=== PATIENT | female | born 1970 | race Caucasian/White ===

== ENCOUNTER 2021-09-21 12:49 | Inpatient (IN) | payer MEDICAID, SELFPAY ==
--- NOTE | ~2021-09-21 | US_ITS ---
EXAMINATION: US VENOUS ULTRASOUND WITH DOPPLER LOWER EXTREMITY, LEFT CLINICAL INFORMATION: Left lower leg pain and swelling. COMPARISON: None TECHNIQUE: Ultrasound of the deep veins is performed from the hip to the calf with compression sonography and color and pulse Doppler assessment. Spectral analysis with color-flow imaging is performed. FINDINGS: There is normal venous compression and respiratory variation and augmented flow. The visualized common femoral vein, superficial femoral vein, profunda femoral vein, popliteal vein, and the trifurcation region shows no evidence of deep venous thrombosis. The peroneal and the posterior tibial veins are not visualized. There is complex popliteal fossa cyst measuring 4.1 x 1.6 x 2.0 cm. If the patient's symptoms persist, followup ultrasound in 5 days 7 days might be of value to exclude proximal propagation from a non-visualized calf vein. US/US venous duplex LE IMPRESSION: No DVT demonstrated in the left lower extremity.
--- NOTE | ~2021-09-21 | XR_ITS ---
EXAMINATION: XR HAND, RIGHT CLINICAL INFORMATION: Fall COMPARISON: None TECHNIQUE: PA, lateral, and oblique views of the right hand. FINDINGS: There are well-corticated soft tissue ossifications adjacent to the ulnar styloid likely related to old trauma. There is faint soft tissue linear calcification or ossification adjacent to the base of the fifth metacarpal bone/CUSTODIAL joint also questionable for changes related to old trauma and laterally over the dorsal wrist and distal forearm. No acute fracture or dislocation is seen. There are mild degenerative changes of the first CUSTODIAL joint. XR/XR hand RT min 3V IMPRESSION: Question old trauma to the ulnar styloid and soft tissues lateral to the fifth CUSTODIAL joint and dorsal wrist and distal forearm. No acute fracture or dislocation. Mild arthritis at the first CUSTODIAL joint.
--- NOTE | ~2021-09-21 | XR_ITS ---
EXAMINATION: XR FOOT, LEFT CLINICAL INFORMATION: Rule out osteomyelitis COMPARISON: None TECHNIQUE: 2 views of the left foot. FINDINGS: There is soft tissue loss and bone destruction of the distal great toe suggestive of osteomyelitis. The bones appear osteopenic. No fracture or dislocation is seen. There is mild hallux valgus deformity and degenerative change at the first MTP joint. There are small calcaneal spurs. XR/XR foot LT 2V IMPRESSION: Bone destruction and soft tissue loss of the distal great toe suggestive of osteomyelitis.
--- NOTE | ~2021-09-21 | CT_ITS ---
EXAMINATION: CT CERVICAL SPINE WITHOUT CONTRAST CLINICAL INFORMATION: Fall COMPARISON: None TECHNIQUE: Axial images through the cervical spine without contrast. Sagittal and coronal reconstructions on the technologist workstation were performed. This CT examination was performed using dose optimization techniques as appropriate, variously including the following: *Automated exposure control *Adjustment of mA and/or kV according to patient size (this includes techniques or standardized protocols for targeted exams where dose is matched to indication/reason for exam; i.e. extremities or head) *Use of iterative reconstruction technique DLP: 5 5 4 mGy-cm FINDINGS: There is mild curvature of the lower cervical and upper thoracic spine to the left. Bone alignment is otherwise normal. There is mild degenerative spondylosis and degenerative disc disease at C5-C5-C6 and C6-C7. Prevertebral soft tissues are unremarkable. There is shotty bilateral cervical lymphadenopathy. Visualized lung apices are clear. CT/CT cervical spine wo con IMPRESSION: Mild degenerative changes. No fracture or dislocation seen. Fleischner guidelines were followed.
--- NOTE | ~2021-09-21 | XR_ITS ---
EXAMINATION: XR KNEE, RIGHT CLINICAL INFORMATION: Fall COMPARISON: None TECHNIQUE: Four views of the right knee. FINDINGS: Bone alignment is normal. No acute fracture or dislocation is seen. There is a deformity and subchondral lucency in the medial femoral condyle questionable for old injury. There is arthritis at the medial femoral tibial and patellofemoral joints. There is a small osteophyte at the quadriceps tendon insertion to the patella. There is a moderate-sized joint effusion. XR/XR knee RT 4V IMPRESSION: Degenerative changes and joint effusion. Question old subchondral injury of the medial femoral condyle.
--- NOTE | ~2021-09-21 | XR_ITS ---
EXAMINATION: XR FOOT, RIGHT CLINICAL INFORMATION: Evaluate for osteomyelitis COMPARISON: Previous x-ray and MRI January 2020 TECHNIQUE: AP, lateral, and oblique views of the right foot. FINDINGS: There is fracture dislocation of the first MTP joint. There is bone destruction of the first metatarsal head and base of the proximal phalanx questionable for posttraumatic change versus osteomyelitis. There is loss of the phalanx and metatarsal head and distal shaft of the second toe also suggestive of osteomyelitis. There appears to have been amputation of the third toes. There is a displaced fracture of the distal shaft or neck of the fifth metatarsal bone. All these findings aren't new in the interval from January 2020 exam. There are calcaneal spurs. There is soft tissue swelling of the distal foot. There is a radiopaque soft tissue foreign body adjacent to the plantar fourth metatarsal head. XR/XR foot RT 2V IMPRESSION: Fracture dislocation of the first MTP joint with osteopenia and bone destruction questionable for septic arthritis/osteomyelitis. Destruction of the phalanx and metatarsal head and distal shaft of the second toe suggestive of osteomyelitis. Probable postsurgical amputation of the third toe. New soft tissue foreign body adjacent to the plantar fourth metatarsal head. New fracture of the distal shaft or neck of the fifth metatarsal bone.
--- NOTE | ~2021-09-21 | CT_ITS ---
EXAMINATION: CT HEAD WITHOUT CONTRAST CLINICAL INFORMATION: Fall COMPARISON: None TECHNIQUE: Contiguous axial imaging was performed from the skull base to vertex without intravenous administration of contrast. This CT examination was performed using dose optimization techniques as appropriate, variously including the following: *Automated exposure control *Adjustment of mA and/or kV according to patient size (this includes techniques or standardized protocols for targeted exams where dose is matched to indication/reason for exam; i.e. extremities or head) *Use of iterative reconstruction technique DLP: 960 mGy-cm FINDINGS: There is no evidence of acute intracranial hemorrhage or territorial infarction. No abnormal mass effect or midline shift is seen. Garza to white matter differentiation is well preserved. No extra-axial fluid collections are identified. The ventricles are normal in size. There is no abnormal attenuation within the brain parenchyma. No skull fracture is seen. There is hyperostosis frontalis interna. There is a polyp or cyst in the right sphenoid sinus. There is membranous soft tissue thickening in the bilateral maxillary sinuses. CT/CT head/brain wo con IMPRESSION: No acute intracranial findings. Sinus disease.
[2021-09-21 12:58] VITALS: BP 183/133; BP 193/88; PULSE 76; PULSE 79; RESP 22; TEMP 37.2; O2SAT 100; BMI 26.2
--- NOTE | 2021-09-21 13:25 | ED.SKABFB ---
HPI - Skin/Abscess/Foreign Bdy General Chief complaint: Wound/Laceration Stated complaint: LEG INFECTION W/PAIN, H/O DM Time Seen by Provider: 09/21/21 13:08 Source: patient Mode of arrival: EMS Limitations: no limitations History of Present Illness MD complaint: rash, laceration, abscess/boil, lesion and other (falls) Onset (ago): month(s) (8 months of leg wounds but falling x 1 week difficult to walk R knee keeps going out) Location: LLE and RLE Severity: moderate Quality: aching and constant Pain Consistency: constant Relieving factors: none Exacerbating factors: palpation and movement Context: other (hx of DM ulcers with toe amputations in past) Associated symptoms: malaise and other (diff walking, draining wounds, cannot get to bathroom on her, falling) Treatments prior to arrival: bandages (states her kids try to help) Related Data Home Medications Medication Instructions Recorded Confirmed alprazolam 2 mg tablet 1 mg PO DAILY PRN 09/21/21 09/21/21 alprazolam 2 mg tablet 2 mg PO BID 09/21/21 09/21/21 gabapentin 400 mg capsule 400 mg PO QID 09/21/21 09/21/21 ibuprofen 800 mg tablet 1 tab PO TID 09/21/21 09/21/21 insulin glargine 100 unit/mL (3 35 unit SUBCUT BEDTIME 09/21/21 09/21/21 mL) subcutaneous pen (Lantus Solostar U-100 Insulin) sertraline 100 mg tablet 1 tab PO BID 09/21/21 09/21/21 Allergies Allergy/AdvReac Type Severity Reaction Status Date / Time prednisone [PREDNISONE] Allergy Unknown RASH Unverified 09/01/20 10:06 Review of Systems Review of Systems: Constitutional : No Fever, No Chills ENT/Mouth : No sore throat, No Rhinorrhea Eyes: No Eye Pain, No Swelling, No Redness Cardiovascular : No Chest Pain, No SOB Respiratory : No Cough, No Sputum Gastrointestinal : No Nausea, No Vomiting, No Diarrhea, No abdominal Pain Genitourinary : No Dysuria, No Hematuria Musculoskeletal : pos joint pain, No Myalgias, Joint Swelling Skin : pos Skin Lesions, positive skin rash Neuro : pos Weakness, No Numbness, No Headache, pos falls Psych : No Anxiety, No Depression Heme/Lymph: No Bruising, No Bleeding,No Lymphadenopathy Endocrine : No Polyuria, No Polydipsia All other systems reviewed and are negative [facility] Past Medical History Attestation statement: The following information was validated with the patient. Medical History Anxiety Diabetes No known health problems Substance abuse Social History Social History (Updated 09/21/21 @ 15:55 by Yesenia Galvan DO) Alcohol intake: never Patient Tobacco Use Status: Current everyday Tobacco user Smoked in Last 30 Days: No Use of substances other than those prescribed or required for medical reasons: Yes Substance Use Type: Heroin Substance Use Frequency: Occasionally Last Used Substance: Days (ago) Any prior treatment program specific to substance use: No Advance Directives: No Advance Directives Information Provided: No Patient : No Physical Exam Vital Signs: Vital Signs: Last Vital Signs Temp 98.3 F 09/21/21 15:42 Pulse 82 09/21/21 15:42 Resp 20 09/21/21 15:42 BP 181/78 H 09/21/21 15:42 Pulse Ox 98 09/21/21 15:42 BMI result Body Mass Index 26.2 Appearance: Alert. Oriented X3. No acute distress. Anxious, unkempt Eyes: Pupils equal, round and reactive to light. ENT: Pharynx normal. Neck: Normal inspection. Neck supple. CVS: Normal heart rate and rhythm. Pulses normal. Respiratory: No respiratory distress. Breath sounds normal. Abdomen: Soft and non-tender. : abrasions both inner thighs no crepitus no abscess - skin breakdown Skin: Skin warm and dry. Normal skin color. Normal skin turgor. Extremities: pitting LE, macerated deep open wound on plantar surface R foot with odor and drainage with cellulitis up to garcia, L leg with open wounds on toes and open draining wound left lateral leg with surrounding erythema of the garcia. R hand swollen with ecchymosis noted - states from fall Neuro: Oriented X 3. No motor deficit. No sensory deficit. MDM - Skin/Abscess/Foreign Bdy MDM Narrative Medical decision making narrative: 51 yo female with DM hx of LE ulcers and toe amputations in the past reports worsening ulcers and draining wounds for 8 months has not seen anyone now notes they are much worse and she has not been able to walk - the wounds are infected and she has leg cellulitis now. She has also been falling due to R knee giving out and did hit her head. At this time she will need labs, cultures, CT of the head, xrays of R knee for fracture, foot x 2 for osteo, R hand for fracture, recent relapse on intranasal heroin. DVT study of LLE. Empiric zosyn and vancomycin. IVF, IV ativan for anxiety, planned admit. Differential Diagnosis Differential diagnosis: Likely abscess of skin or subcutaneous tissue Lab Data Result diagrams: 09/21/21 14:37 09/21/21 14:36 Labs: Lab Results 09/21/21 09/21/21 09/21/21 Range/Units 14:36 14:36 14:36 WBC (4.8-10.8) X10*3/uL RBC (4.20-5.50) X10*6/uL Hgb (12.0-16.0) g/dl Hct (37.0-47.0) % MCV (80.0-98.0) fL MCH (27.0-33.0) pg MCHC (31.0-35.0) g/dl RDW (11.0-16.0) % Plt Count (160-400) X10*3/uL MPV (9.4-12.3) fL Immature Gran % (Auto) (0.0-0.4) % Neut % (Auto) (45-73) % Lymph % (Auto) (20-40) % [place] % (Auto) (2-11) % Eos % (Auto) (0-4) % Baso % (Auto) (0-2) % Lymph # (Auto) (1.2-4.9) X10*3/uL [place] # (Auto) (0.1-1.2) X10*3/uL Eos # (Auto) (0.0-0.4) X10*3/uL Baso # (Auto) (0.0-0.2) X10*3/uL Abs Immat Gran (auto) (0.00-0.03) X10*3/uL Absolute Neuts (auto) (2.0-8.3) x10*3/uL Absolute Nucleated RBC (0.0-0.012) X10*3/uL Nucleated RBC % (auto) (0.0-0.2) /100WBC ESR 86 H (0-20) MM/HR PT 13.9 H (9.9-13.0) SEC INR 1.2 H (0.9-1.1) Sodium 137 (135-145) mmol/L Potassium 3.3 (3.3-5.1) mmol/L Chloride 102 (96-108) mmol/L Carbon Dioxide 27 (22-29) mmol/L Anion Gap 11 L (12-20) BUN 10 (9-16) mg/dL Creatinine 0.56 (0.5-1.4) mg/dL Estim Creat Clear Calc 126.1 Estimated GFR > 60 Random Glucose 156 H (60-115) mg/dL Lactic Acid (0.5-2.0) mmol/L Calcium 7.7 L (8.4-10.2) mg/dL Magnesium 1.6 (1.6-2.6) mg/dL Total Bilirubin 0.3 (0.0-1.0) mg/dL Direct Bilirubin < 0.2 (0.0-0.5) mg/dL AST 10 (5-31) U/L ALT 6 (0-31) U/L Alkaline Phosphatase 98 (39-117) U/L C-Reactive Protein 10.74 H (< or = 0.50) mg/dL Total Protein 6.0 L (6.5-8.0) g/dL Albumin 2.5 L (3.5-5.0) g/dL Urine Color Urine Appearance Urine pH (5.0-8.0) Ur Specific [place] (1.005-1.025) Urine Protein (NEG-TRACE) MG/DL Urine Glucose (UA) (NEG) MG/DL Urine Ketones (NEG) MG/DL Urine Blood (NEG) Urine Nitrite (NEG) Ur Leukocyte Esterase (NEG) Urine RBC (0) /HPF Urine WBC (0-4) /HPF Ur Squamous Epith Cells /LPF Urine Bacteria /LPF COVID-19 (EUSEBIO) (Negative) COVID-19 Clin Com 09/21/21 09/21/21 09/21/21 Range/Units 14:36 14:36 14:37 WBC 18.1 H (4.8-10.8) X10*3/uL RBC 3.43 L (4.20-5.50) X10*6/uL Hgb 9.3 L (12.0-16.0) g/dl Hct 28.4 L (37.0-47.0) % MCV 82.8 (80.0-98.0) fL MCH 27.1 (27.0-33.0) pg MCHC 32.7 (31.0-35.0) g/dl RDW 15.0 (11.0-16.0) % Plt Count 511 H (160-400) X10*3/uL MPV 9.1 L (9.4-12.3) fL Immature Gran % (Auto) 1.0 H (0.0-0.4) % Neut % (Auto) 82.7 H (45-73) % Lymph % (Auto) 11.1 L (20-40) % [place] % (Auto) 4.9 (2-11) % Eos % (Auto) 0.1 (0-4) % Baso % (Auto) 0.2 (0-2) % Lymph # (Auto) 2.0 (1.2-4.9) X10*3/uL [place] # (Auto) 0.9 (0.1-1.2) X10*3/uL Eos # (Auto) 0.0 (0.0-0.4) X10*3/uL Baso # (Auto) 0.0 (0.0-0.2) X10*3/uL Abs Immat Gran (auto) 0.18 H (0.00-0.03) X10*3/uL Absolute Neuts (auto) 15.0 H (2.0-8.3) x10*3/uL Absolute Nucleated RBC 0.000 (0.0-0.012) X10*3/uL Nucleated RBC % (auto) 0.0 (0.0-0.2) /100WBC ESR (0-20) MM/HR PT (9.9-13.0) SEC INR (0.9-1.1) Sodium (135-145) mmol/L Potassium (3.3-5.1) mmol/L Chloride (96-108) mmol/L Carbon Dioxide (22-29) mmol/L Anion Gap (12-20) BUN (9-16) mg/dL Creatinine (0.5-1.4) mg/dL Estim Creat Clear Calc Estimated GFR Random Glucose (60-115) mg/dL Lactic Acid 0.8 (0.5-2.0) mmol/L Calcium (8.4-10.2) mg/dL Magnesium (1.6-2.6) mg/dL Total Bilirubin (0.0-1.0) mg/dL Direct Bilirubin (0.0-0.5) mg/dL AST (5-31) U/L ALT (0-31) U/L Alkaline Phosphatase (39-117) U/L C-Reactive Protein (< or = 0.50) mg/dL Total Protein (6.5-8.0) g/dL Albumin (3.5-5.0) g/dL Urine Color Urine Appearance Urine pH (5.0-8.0) Ur Specific [place] (1.005-1.025) Urine Protein (NEG-TRACE) MG/DL Urine Glucose (UA) (NEG) MG/DL Urine Ketones (NEG) MG/DL Urine Blood (NEG) Urine Nitrite (NEG) Ur Leukocyte Esterase (NEG) Urine RBC (0) /HPF Urine WBC (0-4) /HPF Ur Squamous Epith Cells /LPF Urine Bacteria /LPF COVID-19 (EUSEBIO) Negative (Negative) COVID-19 Clin Com See Note 09/21/21 Range/Units 14:54 WBC (4.8-10.8) X10*3/uL RBC (4.20-5.50) X10*6/uL Hgb (12.0-16.0) g/dl Hct (37.0-47.0) % MCV (80.0-98.0) fL MCH (27.0-33.0) pg MCHC (31.0-35.0) g/dl RDW (11.0-16.0) % Plt Count (160-400) X10*3/uL MPV (9.4-12.3) fL Immature Gran % (Auto) (0.0-0.4) % Neut % (Auto) (45-73) % Lymph % (Auto) (20-40) % [place] % (Auto) (2-11) % Eos % (Auto) (0-4) % Baso % (Auto) (0-2) % Lymph # (Auto) (1.2-4.9) X10*3/uL [place] # (Auto) (0.1-1.2) X10*3/uL Eos # (Auto) (0.0-0.4) X10*3/uL Baso # (Auto) (0.0-0.2) X10*3/uL Abs Immat Gran (auto) (0.00-0.03) X10*3/uL Absolute Neuts (auto) (2.0-8.3) x10*3/uL Absolute Nucleated RBC (0.0-0.012) X10*3/uL Nucleated RBC % (auto) (0.0-0.2) /100WBC ESR (0-20) MM/HR PT (9.9-13.0) SEC INR (0.9-1.1) Sodium (135-145) mmol/L Potassium (3.3-5.1) mmol/L Chloride (96-108) mmol/L Carbon Dioxide (22-29) mmol/L Anion Gap (12-20) BUN (9-16) mg/dL Creatinine (0.5-1.4) mg/dL Estim Creat Clear Calc Estimated GFR Random Glucose (60-115) mg/dL Lactic Acid (0.5-2.0) mmol/L Calcium (8.4-10.2) mg/dL Magnesium (1.6-2.6) mg/dL Total Bilirubin (0.0-1.0) mg/dL Direct Bilirubin (0.0-0.5) mg/dL AST (5-31) U/L ALT (0-31) U/L Alkaline Phosphatase (39-117) U/L C-Reactive Protein (< or = 0.50) mg/dL Total Protein (6.5-8.0) g/dL Albumin (3.5-5.0) g/dL Urine Color YELLOW Urine Appearance CLEAR Urine pH 6.0 (5.0-8.0) Ur Specific [place] 1.025 (1.005-1.025) Urine Protein TRACE (NEG-TRACE) MG/DL Urine Glucose (UA) NEG (NEG) MG/DL Urine Ketones 5 (NEG) MG/DL Urine Blood TRACE (NEG) Urine Nitrite NEG (NEG) Ur Leukocyte Esterase NEG (NEG) Urine RBC 1-4 (0) /HPF Urine WBC 0-2 (0-4) /HPF Ur Squamous Epith Cells 1+ /LPF Urine Bacteria NONE /LPF COVID-19 (EUSEBIO) (Negative) COVID-19 Clin Com Procedures EJ/Peripheral Line Neck L: Time Out Performed: Yes Skin Cleansed in Sterile Fashion: Yes Size (gauge): 20 IV Secured and Dressing Applied: Yes Patient Tolerated Procedure: well and no complications Discharge Plan Discharge Clinical Impression: Open wound of foot, Cellulitis, Leukocytosis, Osteomyelitis Patient Disposition: Admitted As Inpatient Prescriptions: No Action ibuprofen 800 mg tablet 1 tab PO TID 0RF gabapentin 400 mg capsule 400 mg PO QID 0RF sertraline 100 mg tablet 1 tab PO BID 0RF alprazolam 2 mg tablet 2 mg PO BID 0RF alprazolam 2 mg tablet 1 mg PO DAILY PRN (Reason: Anxiety) 0RF Lanroly Barkleyar U-100 Insulin 100 unit/mL (3 mL) insulin pen 35 unit subcut BEDTIME 0RF
[2021-09-21 14:41] LABS: MANUAL DIFF FLAG NO
[2021-09-21 14:43] LABS: Basophils Percent Auto 0.2 % (0-2); Eosinophils Percent Auto 0.1 % (0-4); Hematocrit 28.4 % (37.0-47.0); Hemoglobin 9.3 g/dl (12.0-16.0); Imm Gran Abs Auto 0.18 X10*3/uL (0.00-0.03); Lymphocytes Percent Auto 11.1 % (20-40); Mean Corpuscular HGB Conc 32.7 g/dl (31.0-35.0); Mean Corpuscular Hemoglobin 27.1 pg (27.0-33.0); Mean Corpuscular Volume 82.8 fL (80.0-98.0); Mean Platelet Volume 9.1 fL (9.4-12.3); Monocytes Absolute Auto 0.9 X10*3/uL (0.1-1.2); Monocytes Percent Auto 4.9 % (2-11); Neutrophils Percent Auto 82.7 % (45-73); Platelet Count 511 X10*3/uL (160-400); Red Blood Count 3.43 X10*6/uL (4.20-5.50); White Blood Count 18.1 X10*3/uL (4.8-10.8)
[2021-09-21 14:49] LABS: INTERNATIONAL NORM RATIO 1.2 (0.9-1.1); Prothrombin Time 13.9 SEC (9.9-13.0)
[2021-09-21] MEDS: LORazepam 2 MG/ML VIAL 1 MG IVPUSH ×2 (14:49→17:21)
[2021-09-21] MEDS: 0.9 % Sodium Chloride 1,000 ML 999 ML IV (14:51)
[2021-09-21 15:00] LABS: Lactic Acid 0.8 mmol/L (0.5-2.0)
[2021-09-21 15:02] LABS: Appearance Urine CLEAR; Color Urine YELLOW; Glucose Urine UA NEG (NEG); Leukocyte Esterase Urine NEG (NEG); Nitrite Urine NEG (NEG); Specific Gravity - Urine 1.025 (1.005-1.025); UACC Culture Trigger NO; Urine Blood TRACE (NEG); Urine Ketones 5 MG/DL (NEG); Urine Protein TRACE MG/DL (NEG-TRACE)
[2021-09-21 15:06] LABS: COVID-19 Test Negative (Negative); IDNOW Serial# 55D5AD1C
[2021-09-21 15:10] LABS: Alanine Aminotransferase 6 U/L (0-31); Albumin Level 2.5 g/dL (3.5-5.0); Alkaline Phosphatase 98 U/L (39-117); Anion Gap 11 (12-20); Aspartate Amino Transferase 10 U/L (5-31); Bilirubin Direct < 0.2 mg/dL (0.0-0.5); Bilirubin Total 0.3 mg/dL (0.0-1.0); Blood Urea Nitrogen 10 mg/dL (9-16); C Reactive Protein 10.74 mg/dL (< or = 0.50); Calcium 7.7 mg/dL (8.4-10.2); Carbon Dioxide 27 mmol/L (22-29); Chloride 102 mmol/L (96-108); Creatinine Clr Calc Pharmacy 126.1; Estimated Glomerular Filt Rate > 60; Glucose Random 156 mg/dL (60-115); Magnesium 1.6 mg/dL (1.6-2.6); Potassium 3.3 mmol/L (3.3-5.1); Sodium 137 mmol/L (135-145)
[2021-09-21 15:20] LABS: Erythrocyte Sedimentation Rate 86 MM/HR (0-20)
[2021-09-21 15:31] LABS: Squamous Epithelial Cell Urine 1+ /LPF; WBC Urine 0-2 /HPF (0-4)
[2021-09-21 15:42] VITALS: BP 181/78; PULSE 82; RESP 20; TEMP 36.8; O2SAT 98
[2021-09-21] MEDS: Morphine Sulfate 4 MG/ML CARTRIDGE IVPUSH (15:50)
[2021-09-21] MEDS: Piperacillin Sodium/Tazobactam 3.375 GM in 0.9 % Sodium Chloride 50 ML IV (15:50)
--- NOTE | 2021-09-21 15:58 | PC.NURSE ---
pt brought in for wounds/falls, requiring extensive sticks for iv access/blood labs. pt has l side ej patent. blood labs eventually obtained and sent, medicated per emar, mccray catheter placed d/t extensive inner thigh/labial folds wounds. bl feet w multiple wounds in various stages of healing. pt has had difficulty maintaining diabetes med compliance and has also been intermittently relapsing with heroin to treat pain. pt has also had multiple falls over the past week, compounding the damage of bl foot wounds. pt more comfortable following pain meds. wctm for needs.
[2021-09-21] MEDS: vancomycin HCL 1,000 MG in 0.9 % Sodium Chloride 250 ML 270 MG IV (16:27)
--- NOTE | 2021-09-21 16:40 | P.HPHOSP_ITS ---
History of Present Illness Date of Service: 09/21/21 Chief Complaint: foot pain and falls 51 year old women presenting with pain and falls to lower extremities. She reported that around 2 weeks ago she started having falls and she would be on the floor for an extended period of time. She reported that she hasnt seen her PCP in person in some time but she is able to reach them over the phone, same as her psychiatrist. She does live with her son and a handicap roomate but doesnt have help at home. She uses a few bags of heroine a week and snorts it. She denied fever, chills, nausea, vomiting, chest pain, sob, LOC. She is noted to be septic from osteomyelitis to both feet. Vancomycin, Zosyn, Morphine, IV fluids and ativan. She will be admitted for further management and treatment of osteomyelitis. Review of Systems Review of Systems: Denies any recent fever chills or decrease in appetite respiratory denies any shortness of breath coverage production cardiovascular is adjustment of any PND or edema gastrointestinal denies any dysphagia abdominal pain nausea vomiting or diarrhea genitourinary denies any dysuria frequency or hematuria musculoskeletal denies any joint pain or swelling neuropsych denies any weakness or seizures all other systems reviewed are negative [facility] Medical History Anxiety Diabetes No known health problems Substance abuse Social History (Updated 09/21/21 @ 15:55 by Yesenia Galvan DO) Alcohol intake: never Patient Tobacco Use Status: Current everyday Tobacco user Smoked in Last 30 Days: No Use of substances other than those prescribed or required for medical reasons: Yes Substance Use Type: Heroin Substance Use Frequency: Occasionally Last Used Substance: Days (ago) Any prior treatment program specific to substance use: No Advance Directives: No Advance Directives Information Provided: No Patient : No Meds Allergies Allergy/AdvReac Type Severity Reaction Status Date / Time prednisone [PREDNISONE] Allergy Unknown RASH Unverified 09/01/20 10:06 Active Medications: Current Medications Pharmacy Consult (Consult Rx Perform Med Rec) 1 each MISCELLANE ONCE PRN PRN Reason: Consult order Home Medications Medication Instructions Recorded Confirmed Last Taken Type alprazolam 2 mg tablet 1 mg PO DAILY PRN 09/21/21 09/21/21 Unknown History alprazolam 2 mg tablet 2 mg PO BID 09/21/21 09/21/21 Unknown History gabapentin 400 mg capsule 400 mg PO QID 09/21/21 09/21/21 Unknown History ibuprofen 800 mg tablet 1 tab PO TID 09/21/21 09/21/21 Unknown History insulin glargine 100 unit/mL (3 35 unit SUBCUT BEDTIME 09/21/21 09/21/21 Unknown History mL) subcutaneous pen (Lantus Solostar U-100 Insulin) sertraline 100 mg tablet 1 tab PO BID 09/21/21 09/21/21 Unknown History Physical Exam Vital Signs and Narrative: Vital Signs: Last Vital Signs Temp 98.3 F 09/21/21 15:42 Pulse 82 09/21/21 15:42 Resp 20 09/21/21 15:42 BP 181/78 H 09/21/21 15:42 Pulse Ox 98 09/21/21 15:42 BMI result Body Mass Index 26.2 Appearing in no acute distress head is normocephalic atraumatic eyes pupils are PERRLA sclera is anicteric mouth throat mucous membranes are intact and moist neck is supple no lymphadenopathy, no JVD noted lung sounds are clear to auscultation heart regular rate rhythm, clear S1, S2 positive bowel sounds, abdomen is soft, nontender neuro patient is alert x3, no focal deficits Results Labs CBC and Chem 7: 09/21/21 14:37 09/21/21 14:36 Labs: Laboratory Results - last 24 hr 09/21/21 09/21/21 09/21/21 14:36 14:36 14:36 MCV MCH MCHC RDW Plt Count MPV Immature Gran % (Auto) Neut % (Auto) Lymph % (Auto) [place] % (Auto) Eos % (Auto) Baso % (Auto) Lymph # (Auto) [place] # (Auto) Eos # (Auto) Baso # (Auto) Abs Immat Gran (auto) Absolute Neuts (auto) Absolute Nucleated RBC Nucleated RBC % (auto) ESR 86 H PT 13.9 H INR 1.2 H Anion Gap 11 L Estim Creat Clear Calc 126.1 Estimated GFR > 60 Random Glucose 156 H Lactic Acid Calcium 7.7 L Magnesium 1.6 Total Bilirubin 0.3 Direct Bilirubin < 0.2 AST 10 ALT 6 Alkaline Phosphatase 98 C-Reactive Protein 10.74 H Total Protein 6.0 L Albumin 2.5 L Urine Color Urine Appearance Urine pH Ur Specific [place] Urine Protein Urine Glucose (UA) Urine Ketones Urine Blood Urine Nitrite Ur Leukocyte Esterase Urine RBC Urine WBC Ur Squamous Epith Cells Urine Bacteria COVID-19 (EUSEBIO) COVID-19 Clin Com 09/21/21 09/21/21 09/21/21 14:36 14:36 14:37 MCV 82.8 MCH 27.1 MCHC 32.7 RDW 15.0 Plt Count 511 H MPV 9.1 L Immature Gran % (Auto) 1.0 H Neut % (Auto) 82.7 H Lymph % (Auto) 11.1 L [place] % (Auto) 4.9 Eos % (Auto) 0.1 Baso % (Auto) 0.2 Lymph # (Auto) 2.0 [place] # (Auto) 0.9 Eos # (Auto) 0.0 Baso # (Auto) 0.0 Abs Immat Gran (auto) 0.18 H Absolute Neuts (auto) 15.0 H Absolute Nucleated RBC 0.000 Nucleated RBC % (auto) 0.0 ESR PT INR Anion Gap Estim Creat Clear Calc Estimated GFR Random Glucose Lactic Acid 0.8 Calcium Magnesium Total Bilirubin Direct Bilirubin AST ALT Alkaline Phosphatase C-Reactive Protein Total Protein Albumin Urine Color Urine Appearance Urine pH Ur Specific [place] Urine Protein Urine Glucose (UA) Urine Ketones Urine Blood Urine Nitrite Ur Leukocyte Esterase Urine RBC Urine WBC Ur Squamous Epith Cells Urine Bacteria COVID-19 (EUSEBIO) Negative COVID-19 Clin Com See Note 09/21/21 14:54 MCV MCH MCHC RDW Plt Count MPV Immature Gran % (Auto) Neut % (Auto) Lymph % (Auto) [place] % (Auto) Eos % (Auto) Baso % (Auto) Lymph # (Auto) [place] # (Auto) Eos # (Auto) Baso # (Auto) Abs Immat Gran (auto) Absolute Neuts (auto) Absolute Nucleated RBC Nucleated RBC % (auto) ESR PT INR Anion Gap Estim Creat Clear Calc Estimated GFR Random Glucose Lactic Acid Calcium Magnesium Total Bilirubin Direct Bilirubin AST ALT Alkaline Phosphatase C-Reactive Protein Total Protein Albumin Urine Color YELLOW Urine Appearance CLEAR Urine pH 6.0 Ur Specific [place] 1.025 Urine Protein TRACE Urine Glucose (UA) NEG Urine Ketones 5 Urine Blood TRACE Urine Nitrite NEG Ur Leukocyte Esterase NEG Urine RBC 1-4 Urine WBC 0-2 Ur Squamous Epith Cells 1+ Urine Bacteria NONE COVID-19 (EUSEBIO) COVID-19 Clin Com Imaging Radiologist's Impressions: Impressions Venous Duplex 09/21/21 13:48 IMPRESSION: No DVT demonstrated in the left lower extremity. Cervical Spine CT 09/21/21 15:17 IMPRESSION: Mild degenerative changes. No fracture or dislocation seen. Fleischner guidelines were followed. Head CT 09/21/21 15:17 IMPRESSION: No acute intracranial findings. Sinus disease. Foot X-Ray 09/21/21 15:22 IMPRESSION: Bone destruction and soft tissue loss of the distal great toe suggestive of osteomyelitis. Foot X-Ray 09/21/21 15:22 IMPRESSION: Fracture dislocation of the first MTP joint with osteopenia and bone destruction questionable for septic arthritis/osteomyelitis. Destruction of the phalanx and metatarsal head and distal shaft of the second toe suggestive of osteomyelitis. Probable postsurgical amputation of the third toe. New soft tissue foreign body adjacent to the plantar fourth metatarsal head. New fracture of the distal shaft or neck of the fifth metatarsal bone. Hand X-Ray 09/21/21 15:22 IMPRESSION: Question old trauma to the ulnar styloid and soft tissues lateral to the fifth SHELTER joint and dorsal wrist and distal forearm. No acute fracture or dislocation. Mild arthritis at the first SHELTER joint. Knee X-Ray 09/21/21 15:22 IMPRESSION: Degenerative changes and joint effusion. Question old subchondral injury of the medial femoral condyle. Assessment and Plan (1) Open wound of foot: Qualifiers: Encounter type: initial encounter Laterality: right Qualified Code(s): S91.301A - Unspecified open wound, right foot, initial encounter Status: Acute (2) Cellulitis: Qualifiers: Laterality: unspecified laterality Site of cellulitis: extremity Site of cellulitis of extremity: lower extremity Qualified Code(s): L03.119 - Cellulitis of unspecified part of limb Status: Acute (3) Osteomyelitis: Qualifiers: Osteomyelitis location: multiple sites Osteomyelitis type: other Qualified Code(s): M86.8X0 - Other osteomyelitis, multiple sites Status: Acute Plan 51 year old women admitted with osteomyelitis to both feet Sepsis secondary to Osteomyelitis Leukocytosis, tachypnea, normal lactic acid Vancomycin and Zosyn ID consult Pain management Follow blood cx Gen surg consult for foreign body adjacent to 4th metatarsal head, she may also need some debridement wound care consult Falls CPK 99 PT consult Substance abuse heroine addiction consult Diabetes sliding scale Lantus ADA diet Normocytic anemia with no acute blood loss follow CBC Anxiety continue home medications DVT prophylaxis with heparin Attending Dr. Chaudhari Full code Quality Stroke Does the patient have a stroke diagnosis?: No VTE Prior VTE?: No VTE Risk Level:: Medical - moderate - high VTE Device Contraindication: Treatment Not Indicated VTE Drug Contraindication: N/A - Med Ordered
[2021-09-21] MEDS: Heparin Sodium,Porcine 5,000 UNIT/ML VIAL 5000 UNIT SUBCUT (17:24)
[2021-09-21] MEDS: Gabapentin 400 MG CAPSULE PO ×2 (17:24→20:30)
--- NOTE | 2021-09-21 17:33 | PHA.PROG ---
Admission Date/Time: September 21, 2021 17:01 Indication: Sepsis secondary to osteomylitis Weight in k.75 kg Adjusted body weight in K.6 kg [place] body weight in K.6 kg Obesity Dosing Indication % IBW: 122 % Serum Creatinine - Last 168 Hours 09/21/21 14:36 Creatinine 0.56 Estimated CrCl and GFR - Last 168 Hours 09/21/21 14:36 Estim Creat Clear Calc 126.1 Estimated GFR > 60 Vancomycin Loading Dose: 1000 mg + 500 mg Current Vancomycin Dosing Regimen: 1250 mg Q12H Date and Time for next Vancomycin Level to be drawn: 09/23 @ 0600 Pharmacist Comments on Vancomycin Plan: Vancomycin 1000 mg given in ED 09/21 @ 1627. Will give an additional vancomycin 500 mg to create a loading dose of 1500 mg (19.8 mg/kg) Maintenance dose vancomycin 1250 mg to start 09/22 @ 0800. Time adjusted so that pharmacy will be able to review vancomycin trough to adjust dose if needed. Expected AUC 555 with a trough of 15.3 Trough to be drawn prior to 4th dose on 09/23 @ 0600 Pharmacy will monitor renal function daily Marlin Monterroso, Marleni Vancomycin dosing will take advantage of [id number] as a clinical decision support tool that uses Bayesian modeling to calculate individual patient's pharmacokinetic parameters and forecast the patient's drug concentration time course with the target goal AUC 24 range of 400 - 600 mg/L/hr.
[2021-09-21 20:08] VITALS: RESP 16
[2021-09-21] MEDS: Morphine Sulfate 2 MG/ML CARTRIDGE IVPUSH (20:08)
[2021-09-21] MEDS: Piperacillin Sodium/Tazobactam 4.5 GM in 0.9 % Sodium Chloride 100 ML IV (20:08)
[2021-09-21 20:15] VITALS: BP 181/65; PULSE 70; RESP 16; TEMP 36.2; O2SAT 98
[2021-09-21] MEDS: ALPRAZolam 0.5 MG TABLET 2 MG PO (20:29)
[2021-09-21] MEDS: Insulin Glargine,Hum.rec.anlog 100 UNIT/ML 10 ML VIAL 35 UNIT SUBCUT (20:31)
--- NOTE | 2021-09-21 20:53 | PC.NURSE ---
pt to room #10 in overflow in NAD. pt rating wound pain 04/16. pt medicated as per emar. will continue to monitor pt.
[2021-09-21] MEDS: Ibuprofen 800 MG TABLET PO (22:02)
[2021-09-22 00:18] VITALS: BP 167/74; PULSE 76; RESP 17; O2SAT 96
[2021-09-22] MEDS: 0.9 % Sodium Chloride Flush 3 ML SYRINGE IVFLUSH ×2 (00:18→19:51)
[2021-09-22] MEDS: Morphine Sulfate 2 MG/ML CARTRIDGE IVPUSH ×2 (00:23→09:46)
[2021-09-22] MEDS: Piperacillin Sodium/Tazobactam 4.5 GM in 0.9 % Sodium Chloride 100 ML IV ×4 (00:23→18:27)
[2021-09-22 02:35] LABS: Amphetamine Screen Urine Not Detected (Not Detect); Barbiturates, Urine Not Detected (Not Detect); Benzodiazepines Screen Urine Not Detected (Not Detect); Cannabinoid Screen Urine Not Detected (Not Detect); Cocaine Screen Urine Not Detected (Not Detect); Fentanyl, urine POSITIVE (Not Detect); Opiate Screen Urine POSITIVE (Not Detect); Phencyclidine Screen Urine Not Detected (Not Detect)
[2021-09-22] MEDS: Heparin Sodium,Porcine 5,000 UNIT/ML VIAL 5000 UNIT SUBCUT ×2 (05:59→17:58)
[2021-09-22 06:24] LABS: MANUAL DIFF FLAG NO
[2021-09-22 06:35] LABS: Basophils Percent Auto 0.1 % (0-2); Eosinophils Percent Auto 0.1 % (0-4); Hematocrit 29.7 % (37.0-47.0); Hemoglobin 9.8 g/dl (12.0-16.0); Imm Gran Abs Auto 0.18 X10*3/uL (0.00-0.03); Imm Gran Pct Auto 1.1 % (0.0-0.4); Lymphocytes Absolute Auto 1.6 X10*3/uL (1.2-4.9); Lymphocytes Percent Auto 10.1 % (20-40); Mean Corpuscular Hemoglobin 26.8 pg (27.0-33.0); Mean Corpuscular Volume 81.1 fL (80.0-98.0); Mean Platelet Volume 9.2 fL (9.4-12.3); Monocytes Absolute Auto 0.8 X10*3/uL (0.1-1.2); Monocytes Percent Auto 4.8 % (2-11); Neutrophils Absolute Auto 13.2 x10*3/uL (2.0-8.3); Neutrophils Percent Auto 83.8 % (45-73); Platelet Count 571 X10*3/uL (160-400); Red Blood Count 3.66 X10*6/uL (4.20-5.50); Red Cell Distribution Width 14.6 % (11.0-16.0); White Blood Count 15.7 X10*3/uL (4.8-10.8)
[2021-09-22 06:57] LABS: Anion Gap 14 (12-20); Blood Urea Nitrogen 7 mg/dL (9-16); Calcium 7.7 mg/dL (8.4-10.2); Carbon Dioxide 30 mmol/L (22-29); Chloride 97 mmol/L (96-108); Creatinine Clr Calc Pharmacy 138.6; Estimated Glomerular Filt Rate > 60; Glucose Random 67 mg/dL (60-115); Sodium 138 mmol/L (135-145)
[2021-09-22 07:26] LABS: Vancomycin Trough < 3.0 mcg/mL (10.0-20.0)
[2021-09-22] MEDS: Gabapentin 400 MG CAPSULE PO ×4 (08:10→19:49)
[2021-09-22] MEDS: ALPRAZolam 0.5 MG TABLET 2 MG PO ×2 (08:10→19:50)
[2021-09-22] MEDS: Ibuprofen 800 MG TABLET PO (08:11)
--- NOTE | 2021-09-22 08:11 | PC.NURSE ---
Pt received from night shift supervisor: Pt AOx4 and offers generalized pain complaint. Pt constantly asking for morphine. Heart sounds normal and lungs diminished. Pt abd soft and non-tender. Young catheter noted and draining. B/L LE excoriation and redness and warmth to touch noted, with glut fold yellow pus filled blisters. Pt had episode of BM incontinence this morning despite orientation.
[2021-09-22 08:27] VITALS: BP 186/71; PULSE 78; RESP 16; TEMP 36.6; O2SAT 97
--- NOTE | 2021-09-22 09:08 | PC.NURSE ---
Pt received from main ER: Pt AOX4 and offers mild generalized body pain. Pt hx of fibromyalgia, M/S. NSR and lungs with mild rhonchi and wet strong cough. Pt abd soft and non-tender. No neuro deficets noted. Pt able to ambulate. Physical therapy at bedside this morning.
--- NOTE | 2021-09-22 09:32 | PM.CNGS ---
History of Present Illness Consult details Consult date: 09/22/21 Narrative: 51-year-old female referred for osteomyelitis of the right foot with foreign body. She has a long history of IV drug abuse. She has had frequent falls and actually was admitted because of this last night. She had complained of right foot pain. She says that often times, she would be floor for long periods of time after falling. She has a history of amputation of the 3rd toe right foot in the past. She is also a known diabetic. She seems to have had poor follow-up with her primary care physician. Review of Systems Constitutional: Constitutional: Denies chills and Denies fever(s) Cardiovascular: Cardiovascular: Denies chest pain, Denies dyspnea and Denies dyspnea on exertion Respiratory: Respiratory: Denies cough, Denies dyspnea and Denies dyspnea on exertion Gastrointestinal: Gastrointestinal: Denies hematochezia and Denies change in bowel habits Genitourinary: Genitourinary: Denies hematuria Musculoskeletal: Musculoskeletal: Denies back pain and Denies limited range of motion Neurologic: Denies focal weakness and Denies convulsions Psychiatric: Psychiatric: Denies depression and Denies mood swings PMF Past Medical History Medical History Anxiety Diabetes No known health problems Substance abuse Social History Social History (Updated 09/22/21 @ 16:53 by Bev Salazar CNP) Household Members: Children Housing: Apartment Do you presently have visiting nurse or other home services: No Alcohol intake: never Patient Tobacco Use Status: Current everyday Tobacco user Tobacco use type: Cigarette Cigarette Packs Per Day: 1 Cigarettes Per Day: 20.0 Substance Use Type: Inhalants Substance Use Frequency: Occasionally Substance Use Frequency Other:: reporting use every few days Last Used Substance: Days (ago) Currently Displaying Signs/Symptoms of Drug Intoxication Withdrawal: No Any prior treatment program specific to substance use: Yes Meds Allergies Allergy/AdvReac Type Severity Reaction Status Date / Time prednisone [PREDNISONE] Allergy Unknown RASH Unverified 09/01/20 10:06 Active Medications: Current Medications Acetaminophen (Acetaminophen 325 Mg Tablet) 650 mg PO Q6H PRN PRN Reason: Pain, Mild (Pain Scale 1-3) Alprazolam (Alprazolam 0.5 Mg Tablet) 2 mg PO BID DADA Last Admin: 09/22/21 08:10 Dose: 2 mg Documented by: Gabapentin (Gabapentin 400 Mg Capsule) 400 mg PO QID [facility] Last Admin: 09/22/21 08:10 Dose: 400 mg Documented by: Heparin Sodium (Porcine) (Heparin Sodium,Porcine 5,000 Unit/Ml Vial) 5,000 unit SUBCUT Q12H [facility] Last Admin: 09/22/21 05:59 Dose: 5,000 unit Documented by: Vancomycin HCl 1,250 mg/ (Sodium Chloride) 250 mls @ 166.667 mls/hr IV Q12H [facility] Piperacillin Sod/Tazobactam (Sod 4.5 gm/ Sodium Chloride) 100 mls @ 200 mls/hr IV Q6H [facility] Last Infusion: 09/22/21 08:40 Dose: Infused Documented by: Ibuprofen (Ibuprofen 800 Mg Tablet) 800 mg PO TID [facility] Last Admin: 09/22/21 08:11 Dose: 800 mg Documented by: Insulin Glargine (Insulin Glargine,Hum.Rec.Anlog 100 Unit/Ml 10 Ml Vial) 35 unit SUBCUT BEDTIME [facility] Last Admin: 09/21/21 20:31 Dose: 35 unit Documented by: Morphine Sulfate (Morphine Sulfate 2 Mg/Ml Cartridge) 2 mg IVPUSH Q4H PRN; Protocol PRN Reason: Pain, Mild (Pain Scale 1-3) Last Admin: 09/22/21 00:23 Dose: 2 mg Documented by: Ondansetron HCl (Ondansetron Hcl 4 Mg/2 Ml Vial) 4 mg IVPUSH Q8H PRN PRN Reason: Nausea and Vomiting Pharmacy Consult (Consult Rx Perform Med Rec) 1 each MISCELLANE ONCE PRN PRN Reason: Consult order Pharmacy Consult (Consult Rx Vancomycin Dosing) 1 each MISCELLANE DAILY PRN PRN Reason: Consult order Sertraline HCl (Sertraline Hcl 100 Mg Tablet) 100 mg PO BID [facility] Last Admin: 09/22/21 08:11 Dose: Not Given Documented by: Sodium Chloride (0.9 % Sodium Chloride Flush 3 Ml Syringe) 3 ml IVFLUSH QSHIFT [facility] Last Admin: 09/22/21 07:19 Dose: Not Given Documented by: Home Medications Medication Instructions Recorded Confirmed Last Taken Type alprazolam 2 mg tablet 1 mg PO DAILY PRN 09/21/21 09/21/21 Unknown History alprazolam 2 mg tablet 2 mg PO BID 09/21/21 09/21/21 Unknown History gabapentin 400 mg capsule 400 mg PO QID 09/21/21 09/21/21 Unknown History ibuprofen 800 mg tablet 1 tab PO TID 09/21/21 09/21/21 Unknown History insulin glargine 100 unit/mL (3 35 unit SUBCUT BEDTIME 09/21/21 09/21/21 Unknown History mL) subcutaneous pen (Lantus Solostar U-100 Insulin) sertraline 100 mg tablet 1 tab PO BID 09/21/21 09/21/21 Unknown History Physical Exam Vital Signs: Vital Signs: Last Vital Signs Temp 97.8 F 09/22/21 08:27 Pulse 78 09/22/21 08:27 Resp 16 09/22/21 08:27 BP 186/71 H 09/22/21 08:27 Pulse Ox 97 09/22/21 08:27 BMI result Body Mass Index 26.2 Const: General: no acute distress Orientation/consciousness: patient oriented x3 Neck: Neck: Yes no lymphadenopathy Resp: Auscultation: clear to auscultation bilaterally Cardio: Rhythm: regular rhythm GI: Palpation (GI): Soft to palpation, nontender and no guarding Neuro: General: patient oriented x3 Extrem: Other: Right foot with large open wound with eschar about 3 cm in diameter on the plantar aspect, with some drainage; deformity of the toe and the 2nd toe as well noted Results Labs Result diagrams: 09/23/21 05:47 09/23/21 05:47 Labs: Abnormal lab results 09/21/21 09/21/21 09/21/21 Range/Units 14:36 14:36 14:36 WBC (4.8-10.8) X10*3/uL RBC (4.20-5.50) X10*6/uL Hgb (12.0-16.0) g/dl Hct (37.0-47.0) % MCH (27.0-33.0) pg Plt Count (160-400) X10*3/uL MPV (9.4-12.3) fL Immature Gran % (Auto) (0.0-0.4) % Neut % (Auto) (45-73) % Lymph % (Auto) (20-40) % Abs Immat Gran (auto) (0.00-0.03) X10*3/uL Absolute Neuts (auto) (2.0-8.3) x10*3/uL ESR 86 H (0-20) MM/HR PT 13.9 H (9.9-13.0) SEC INR 1.2 H (0.9-1.1) Potassium (3.3-5.1) mmol/L Carbon Dioxide (22-29) mmol/L Anion Gap 11 L (12-20) BUN (9-16) mg/dL Random Glucose 156 H (60-115) mg/dL Calcium 7.7 L (8.4-10.2) mg/dL C-Reactive Protein 10.74 H (< or = 0.50) mg/dL Total Protein 6.0 L (6.5-8.0) g/dL Albumin 2.5 L (3.5-5.0) g/dL Vancomycin Trough (10.0-20.0) mcg/mL Urine Opiates Screen (Not Detect) Urine Fentanyl Screen (Not Detect) 09/21/21 09/22/21 09/22/21 Range/Units 14:37 02:13 06:00 WBC 18.1 H (4.8-10.8) X10*3/uL RBC 3.43 L (4.20-5.50) X10*6/uL Hgb 9.3 L (12.0-16.0) g/dl Hct 28.4 L (37.0-47.0) % MCH (27.0-33.0) pg Plt Count 511 H (160-400) X10*3/uL MPV 9.1 L (9.4-12.3) fL Immature Gran % (Auto) 1.0 H (0.0-0.4) % Neut % (Auto) 82.7 H (45-73) % Lymph % (Auto) 11.1 L (20-40) % Abs Immat Gran (auto) 0.18 H (0.00-0.03) X10*3/uL Absolute Neuts (auto) 15.0 H (2.0-8.3) x10*3/uL ESR (0-20) MM/HR PT (9.9-13.0) SEC INR (0.9-1.1) Potassium (3.3-5.1) mmol/L Carbon Dioxide (22-29) mmol/L Anion Gap (12-20) BUN (9-16) mg/dL Random Glucose (60-115) mg/dL Calcium (8.4-10.2) mg/dL C-Reactive Protein (< or = 0.50) mg/dL Total Protein (6.5-8.0) g/dL Albumin (3.5-5.0) g/dL Vancomycin Trough < 3.0 L (10.0-20.0) mcg/mL Urine Opiates Screen POSITIVE H (Not Detect) Urine Fentanyl Screen POSITIVE H (Not Detect) 09/22/21 09/22/21 Range/Units 06:00 06:00 WBC 15.7 H (4.8-10.8) X10*3/uL RBC 3.66 L (4.20-5.50) X10*6/uL Hgb 9.8 L (12.0-16.0) g/dl Hct 29.7 L (37.0-47.0) % MCH 26.8 L (27.0-33.0) pg Plt Count 571 H (160-400) X10*3/uL MPV 9.2 L (9.4-12.3) fL Immature Gran % (Auto) 1.1 H (0.0-0.4) % Neut % (Auto) 83.8 H (45-73) % Lymph % (Auto) 10.1 L (20-40) % Abs Immat Gran (auto) 0.18 H (0.00-0.03) X10*3/uL Absolute Neuts (auto) 13.2 H (2.0-8.3) x10*3/uL ESR (0-20) MM/HR PT (9.9-13.0) SEC INR (0.9-1.1) Potassium 3.0 L (3.3-5.1) mmol/L Carbon Dioxide 30 H (22-29) mmol/L Anion Gap (12-20) BUN 7 L (9-16) mg/dL Random Glucose (60-115) mg/dL Calcium 7.7 L (8.4-10.2) mg/dL C-Reactive Protein (< or = 0.50) mg/dL Total Protein (6.5-8.0) g/dL Albumin (3.5-5.0) g/dL Vancomycin Trough (10.0-20.0) mcg/mL Urine Opiates Screen (Not Detect) Urine Fentanyl Screen (Not Detect) Short CBC 09/21/21 09/22/21 Range/Units 14:37 06:00 WBC 18.1 H 15.7 H (4.8-10.8) X10*3/uL Hgb 9.3 L 9.8 L (12.0-16.0) g/dl Hct 28.4 L 29.7 L (37.0-47.0) % Plt Count 511 H 571 H (160-400) X10*3/uL BMP 09/21/21 09/22/21 09/22/21 14:36 06:00 06:00 Sodium 137 138 Potassium 3.3 3.0 L Chloride 102 97 Carbon Dioxide 27 30 H BUN 10 7 L Creatinine 0.56 Cancelled 0.51 Calcium 7.7 L 7.7 L Cardiac Enzymes 09/21/21 Range/Units 14:36 Total Creatine Kinase 99 (26-140) U/L Liver Function 09/21/21 Range/Units 14:36 Total Bilirubin 0.3 (0.0-1.0) mg/dL Direct Bilirubin < 0.2 (0.0-0.5) mg/dL AST 10 (5-31) U/L ALT 6 (0-31) U/L Alkaline Phosphatase 98 (39-117) U/L Albumin 2.5 L (3.5-5.0) g/dL Urine 09/21/21 Range/Units 14:54 Urine Color YELLOW Urine Appearance CLEAR Urine pH 6.0 (5.0-8.0) Ur Specific [place] 1.025 (1.005-1.025) Urine Protein TRACE (NEG-TRACE) MG/DL Urine Glucose (UA) NEG (NEG) MG/DL All other labs normal. Assessment and Plan (1) Osteomyelitis: Qualifiers: Osteomyelitis location: multiple sites Osteomyelitis type: other Qualified Code(s): M86.8X0 - Other osteomyelitis, multiple sites Status: Acute Her x-ray shows osteomyelitis of the right big toe and the right 2nd toe up to the level of the metatarsal. Furthermore, there was what appeared to be a very small foreign body that seems to be metallic, maybe 4 mm in length, on the plantar aspect of the metatarsal head. Examination shows a thick eschar on the plantar aspect of the 1st and 2nd metatarsal head, with an open wound. The area of the eschars about 3.5 cm in diameter. I therefore sharply debrided this with scissors to remove in and part of subcutaneous layer. I could not clearly visualize the small foreign body but this may have come off with the eschar. I told her that in view of the osteomyelitis of the 1st and 2nd toes along with significant and extensive bony destruction, she will probably require transmetatarsal amputation or even a BKA. I explained to her that she may not heal completely with antibiotic treatment alone. She will require wound care for now and I have wrapped the foot with dry dressings and a Alexsandra roll. I will follow along while she is in the hospital. Procedures Date of Service Date of Service: 09/22/21
[2021-09-22] MEDS: vancomycin HCL 1,250 MG in 0.9 % Sodium Chloride 250 ML 166.67 MG IV ×2 (09:45→19:49)
--- NOTE | 2021-09-22 10:57 | HO.PM.IMPN ---
Subjective Subjective Date of Service: 09/22/21 Interval History: seen and examined this AM she reports foot pain, not controlled with current regime she tells me that gen surg told her that she will likely need an amp -- but she is not ready for this at this time; bedside debridement done by gen surg and dressing changes denies cp or sob Review of Systems negative except HPI Physical Exam Vital Signs: Vital Signs: Last Vital Signs Temp 97.8 F 09/22/21 08:27 Pulse 78 09/22/21 08:27 Resp 16 09/22/21 08:27 BP 186/71 H 09/22/21 08:27 Pulse Ox 97 09/22/21 08:27 BMI result Body Mass Index 26.2 General - ill appearing Cardiovascular - regular rate and rhythm, S1-S2 Lungs - no respiratory distress Abdomen - soft, nontender, no rebound or guarding skin -- RLE wound dressing in place, clean and dry Neuro - awake and alert, no focal deficits Objective Data Active Medications Acetaminophen (Acetaminophen 325 Mg Tablet) 650 mg PO Q6H PRN PRN Reason: Pain, Mild (Pain Scale 1-3) Alprazolam (Alprazolam 0.5 Mg Tablet) 2 mg PO BID [facility] Last Admin: 09/22/21 08:10 Dose: 2 mg Documented by: PAOLA Gabapentin (Gabapentin 400 Mg Capsule) 400 mg PO QID [facility] Last Admin: 09/22/21 08:10 Dose: 400 mg Documented by: PAOLA Heparin Sodium (Porcine) (Heparin Sodium,Porcine 5,000 Unit/Ml Vial) 5,000 unit SUBCUT Q12H [facility] Last Admin: 09/22/21 05:59 Dose: 5,000 unit Documented by: MARIA GUADALUPE Vancomycin HCl 1,250 mg/ (Sodium Chloride) 250 mls @ 166.667 mls/hr IV Q12H [facility] Last Admin: 09/22/21 09:45 Dose: 166.67 mls/hr Documented by: PAOLA Piperacillin Sod/Tazobactam (Sod 4.5 gm/ Sodium Chloride) 100 mls @ 200 mls/hr IV Q6H [facility] Last Infusion: 09/22/21 08:40 Dose: 0 mls/hr Documented by: PAOLA Ibuprofen (Ibuprofen 800 Mg Tablet) 800 mg PO TID [facility] Last Admin: 09/22/21 08:11 Dose: 800 mg Documented by: PAOLA Insulin Glargine (Insulin Glargine,Hum.Rec.Anlog 100 Unit/Ml 10 Ml Vial) 35 unit SUBCUT BEDTIME [facility] Last Admin: 09/21/21 20:31 Dose: 35 unit Documented by: DONG Morphine Sulfate (Morphine Sulfate 2 Mg/Ml Cartridge) 2 mg IVPUSH Q4H PRN; Protocol PRN Reason: Pain, Mild (Pain Scale 1-3) Last Admin: 09/22/21 09:46 Dose: 2 mg Documented by: PAOLA Ondansetron HCl (Ondansetron Hcl 4 Mg/2 Ml Vial) 4 mg IVPUSH Q8H PRN PRN Reason: Nausea and Vomiting Pharmacy Consult (Consult Rx Perform Med Rec) 1 each MISCELLANE ONCE PRN PRN Reason: Consult order Pharmacy Consult (Consult Rx Vancomycin Dosing) 1 each MISCELLANE DAILY PRN PRN Reason: Consult order Sertraline HCl (Sertraline Hcl 100 Mg Tablet) 100 mg PO BID [facility] Last Admin: 09/22/21 08:11 Dose: Not Given Documented by: PAOLA Non-Admin Reason: Patient Refused Sodium Chloride (0.9 % Sodium Chloride Flush 3 Ml Syringe) 3 ml IVFLUSH QSHIFT [facility] Last Admin: 09/22/21 07:19 Dose: Not Given Documented by: PAOLA Non-Admin Reason: Med Not Available Labs CBC & Chem 7: 09/22/21 06:00 09/22/21 06:00 Labs: Laboratory Results - last 24 hr 09/21/21 09/21/21 09/21/21 14:36 14:36 14:36 MCV MCH MCHC RDW Plt Count MPV Immature Gran % (Auto) Neut % (Auto) Lymph % (Auto) [place] % (Auto) Eos % (Auto) Baso % (Auto) Lymph # (Auto) [place] # (Auto) Eos # (Auto) Baso # (Auto) Abs Immat Gran (auto) Absolute Neuts (auto) Absolute Nucleated RBC Nucleated RBC % (auto) ESR 86 H PT 13.9 H INR 1.2 H Anion Gap 11 L Estim Creat Clear Calc 126.1 Estimated GFR > 60 Random Glucose 156 H Lactic Acid Calcium 7.7 L Magnesium 1.6 Total Bilirubin 0.3 Direct Bilirubin < 0.2 AST 10 ALT 6 Alkaline Phosphatase 98 Total Creatine Kinase 99 C-Reactive Protein 10.74 H Total Protein 6.0 L Albumin 2.5 L Urine Color Urine Appearance Urine pH Ur Specific [place] Urine Protein Urine Glucose (UA) Urine Ketones Urine Blood Urine Nitrite Ur Leukocyte Esterase Urine RBC Urine WBC Ur Squamous Epith Cells Urine Bacteria Vancomycin Trough Urine Opiates Screen Urine Fentanyl Screen Ur Barbiturates Screen Ur Phencyclidine Scrn Ur Amphetamines Screen U Benzodiazepines Scrn Urine Cocaine Screen U Marijuana (THC) Screen COVID-19 (EUSEBIO) COVID-19 Clin Com 09/21/21 09/21/21 09/21/21 14:36 14:36 14:37 MCV 82.8 MCH 27.1 MCHC 32.7 RDW 15.0 Plt Count 511 H MPV 9.1 L Immature Gran % (Auto) 1.0 H Neut % (Auto) 82.7 H Lymph % (Auto) 11.1 L [place] % (Auto) 4.9 Eos % (Auto) 0.1 Baso % (Auto) 0.2 Lymph # (Auto) 2.0 [place] # (Auto) 0.9 Eos # (Auto) 0.0 Baso # (Auto) 0.0 Abs Immat Gran (auto) 0.18 H Absolute Neuts (auto) 15.0 H Absolute Nucleated RBC 0.000 Nucleated RBC % (auto) 0.0 ESR PT INR Anion Gap Estim Creat Clear Calc Estimated GFR Random Glucose Lactic Acid 0.8 Calcium Magnesium Total Bilirubin Direct Bilirubin AST ALT Alkaline Phosphatase Total Creatine Kinase C-Reactive Protein Total Protein Albumin Urine Color Urine Appearance Urine pH Ur Specific [place] Urine Protein Urine Glucose (UA) Urine Ketones Urine Blood Urine Nitrite Ur Leukocyte Esterase Urine RBC Urine WBC Ur Squamous Epith Cells Urine Bacteria Vancomycin Trough Urine Opiates Screen Urine Fentanyl Screen Ur Barbiturates Screen Ur Phencyclidine Scrn Ur Amphetamines Screen U Benzodiazepines Scrn Urine Cocaine Screen U Marijuana (THC) Screen COVID-19 (EUSEBIO) Negative COVID-19 Clin Com See Note 09/21/21 09/22/21 09/22/21 14:54 02:13 06:00 MCV MCH MCHC RDW Plt Count MPV Immature Gran % (Auto) Neut % (Auto) Lymph % (Auto) [place] % (Auto) Eos % (Auto) Baso % (Auto) Lymph # (Auto) [place] # (Auto) Eos # (Auto) Baso # (Auto) Abs Immat Gran (auto) Absolute Neuts (auto) Absolute Nucleated RBC Nucleated RBC % (auto) ESR PT INR Anion Gap Estim Creat Clear Calc Cancelled Estimated GFR Cancelled Random Glucose Lactic Acid Calcium Magnesium Total Bilirubin Direct Bilirubin AST ALT Alkaline Phosphatase Total Creatine Kinase C-Reactive Protein Total Protein Albumin Urine Color YELLOW Urine Appearance CLEAR Urine pH 6.0 Ur Specific [place] 1.025 Urine Protein TRACE Urine Glucose (UA) NEG Urine Ketones 5 Urine Blood TRACE Urine Nitrite NEG Ur Leukocyte Esterase NEG Urine RBC 1-4 Urine WBC 0-2 Ur Squamous Epith Cells 1+ Urine Bacteria NONE Vancomycin Trough Urine Opiates Screen POSITIVE H Urine Fentanyl Screen POSITIVE H Ur Barbiturates Screen Not Detected Ur Phencyclidine Scrn Not Detected Ur Amphetamines Screen Not Detected U Benzodiazepines Scrn Not Detected Urine Cocaine Screen Not Detected U Marijuana (THC) Screen Not Detected COVID-19 (EUSEBIO) COVID-19 Clin [facility] 09/22/21 09/22/21 09/22/21 06:00 06:00 06:00 MCV 81.1 MCH 26.8 L MCHC 33.0 RDW 14.6 Plt Count 571 H MPV 9.2 L Immature Gran % (Auto) 1.1 H Neut % (Auto) 83.8 H Lymph % (Auto) 10.1 L [place] % (Auto) 4.8 Eos % (Auto) 0.1 Baso % (Auto) 0.1 Lymph # (Auto) 1.6 [place] # (Auto) 0.8 Eos # (Auto) 0.0 Baso # (Auto) 0.0 Abs Immat Gran (auto) 0.18 H Absolute Neuts (auto) 13.2 H Absolute Nucleated RBC 0.000 Nucleated RBC % (auto) 0.0 ESR PT INR Anion Gap 14 Estim Creat Clear Calc 138.6 Estimated GFR > 60 Random Glucose 67 Lactic Acid Calcium 7.7 L Magnesium Total Bilirubin Direct Bilirubin AST ALT Alkaline Phosphatase Total Creatine Kinase C-Reactive Protein Total Protein Albumin Urine Color Urine Appearance Urine pH Ur Specific [place] Urine Protein Urine Glucose (UA) Urine Ketones Urine Blood Urine Nitrite Ur Leukocyte Esterase Urine RBC Urine WBC Ur Squamous Epith Cells Urine Bacteria Vancomycin Trough < 3.0 L Urine Opiates Screen Urine Fentanyl Screen Ur Barbiturates Screen Ur Phencyclidine Scrn Ur Amphetamines Screen U Benzodiazepines Scrn Urine Cocaine Screen U Marijuana (THC) Screen COVID-19 (EUSEBOI) COVID-19 Clin Com Assessment and Plan (1) Osteomyelitis: Status: Acute Plan This is a 51 yo F with a PMH of DM, OUD (snorts heroin), anxiety, who presents to the hospital with R foot pain. Her presentation is consistent with sepsis secondary to osteomyelitis. 1. Sepsis secondary to osteomyelitis/septic arthritis of the R 1st TMP joint, Osteo the L Great Toe -- suspected due to DM Sepsis improving Continue broad spec IV anbitioics Gen Surg input appreciated -- likely needs amp, but patient tells me she is not ready for it yet (? R foot); L foot -- likely to require 6 weeks IV antibiotics; F/u Cultures 2. DM continue lantus, add sliding scale check a1c diabetic diet 3. Opiate use disorder Addiction medicine consult 4. Mood Xanax 5. Falls likely due to weakness related to foot issues eventual PT eval Full Code DVT pptx, subcut. heparin Quality Stroke Does the patient have a stroke diagnosis?: No VTE Prior VTE?: No VTE Risk Level:: Medical - moderate - high VTE Device Contraindication: Treatment Not Indicated VTE Drug Contraindication: N/A - Med Ordered
--- NOTE | 2021-09-22 11:12 | P.CDIC_ITS ---
CDI Concurrent Query Documentation Clarification: PHYSICIAN'S DOCUMENTATION REQUEST Date of Query: 09/22/21 1113 Patient Name: Marilou Siddiqui Admit Date: 09/21/21 Dear Doctor, A review of the medical record indicates additional documentation may be indicated. Please review below and update the documentation accordingly. Clinical Indicators: Risk Factors/Clinical Indicators/Treatments Per H&P: deep wound plantar right foot Based on the above, could you please provide, in the Progress Notes, further in formation regarding the ulcer/wound: * Location of the ulcer/wound, including laterality * Type (etiology) of ulcer/wound: * Diabetic ulcer * Venous stasis ulcer * Arterial (ischemic) ulcer * Pressure (decubitus) ulcer * Traumatic wound * Other * Unable to determine * For a non-pressure ulcer, please indicate the depth/severity: * Limited to the breakdown of skin * With fat layer exposed * With necrosis of muscle * With necrosis of bone * Other * Unable to determine * If a pressure ulcer, please also include the stage* of the ulcer: * Stage 1 - Skin intact, non-blanchable redness * Stage 2 - Partial thickness loss of dermis, includes intact or open blister * Stage 3 - Full thickness tissue not including bone, tendon, or muscle * Stage 4 - Full thickness tissue loss, including exposed bones, tendon, or muscle * Unstageable - Full thickness tissue loss in which the base of the ulcer is covered by slough (yellow, south, crews, green or brown) and/or eschar (south, brown, or black) in the wound bed. * Suspected deep tissue injury - Purple or maroon localized area of discolored intact skin or blood-filled blister due to damage of underlying soft tissues from pressure and/or shear. The area may be preceded by tissue that is painful, firm, mushy, boggy, warmer, or cooler as compare to adjacent tissue. * Unable to determine *Source: National Pressure Ulcer Advisory Panel (NPUAP) Use of terms such as suspected, likely, concern for, or probable (associated with a specific diagnosis that is being evaluated, monitored, or treated as if it exists) are acceptable and can be coded in the inpatient setting, when documented at the time of discharge. Thank you, Jahaira Borjas RN Extension: [phone] Please use your independent medical judgment in providing your response. THIS QUERY IS PART OF THE PERMANENT MEDICAL RECORD Provider Response: Other Other Diagnosis: See Note
--- NOTE | 2021-09-22 11:12 | MHC.CDI.CONC ---
CDI Concurrent Query Documentation Clarification: PHYSICIAN'S DOCUMENTATION REQUEST Date of Query: 09/22/21 1113 Patient Name: Marilou Siddiqui Admit Date: 09/21/21 Dear Doctor, A review of the medical record indicates additional documentation may be indicated. Please review below and update the documentation accordingly. Clinical Indicators: Risk Factors/Clinical Indicators/Treatments Per H&P: deep wound plantar right foot Based on the above, could you please provide, in the Progress Notes, further information regarding the ulcer/wound: Location of the ulcer/wound, including laterality Type (etiology) of ulcer/wound: Diabetic ulcer Venous stasis ulcer Arterial (ischemic) ulcer Pressure (decubitus) ulcer Traumatic wound Other Unable to determine For a non-pressure ulcer, please indicate the depth/severity: Limited to the breakdown of skin With fat layer exposed With necrosis of muscle With necrosis of bone Other Unable to determine If a pressure ulcer, please also include the stage* of the ulcer: Stage 1 - Skin intact, non-blanchable redness Stage 2 - Partial thickness loss of dermis, includes intact or open blister Stage 3 - Full thickness tissue not including bone, tendon, or muscle Stage 4 - Full thickness tissue loss, including exposed bones, tendon, or muscle Unstageable - Full thickness tissue loss in which the base of the ulcer is covered by slough (yellow, south, crews, green or brown) and/or eschar (south, brown, or black) in the wound bed. Suspected deep tissue injury - Purple or maroon localized area of discolored intact skin or blood-filled blister due to damage of underlying soft tissues from pressure and/or shear. The area may be preceded by tissue that is painful, firm, mushy, boggy, warmer, or cooler as compare to adjacent tissue. Unable to determine *Source: National Pressure Ulcer Advisory Panel (NPUAP) Use of terms such as suspected, likely, concern for, or probable (associated with a specific diagnosis that is being evaluated, monitored, or treated as if it exists) are acceptable and can be coded in the inpatient setting, when documented at the time of discharge. Thank you, Jahaira Borjas RN Extension: [phone] Please use your independent medical judgment in providing your response. THIS QUERY IS PART OF THE PERMANENT MEDICAL RECORD Provider Response: Other Other Diagnosis: See Note
--- NOTE | 2021-09-22 11:15 | P.CDIC_ITS ---
CDI Concurrent Query Documentation Clarification: PHYSICIAN'S DOCUMENTATION REQUEST Date of Query: 09/22/21 1116 Patient Name: Marilou Siddiqui Admit Date: 09/21/21 Dear Doctor, A review of the medical record indicates additional documentation may be indicated. Please review below and update the documentation accordingly. Clinical Indicators: Risk Factors/Clinical Indicators/Treatments Per H&P: Open draining wound left lateral leg Based on the above, could you please provide, in the Progress Notes, further information regarding the ulcer/wound: * Location of the ulcer/wound, including laterality * Type (etiology) of ulcer/wound: * Diabetic ulcer * Venous stasis ulcer * Arterial (ischemic) ulcer * Pressure (decubitus) ulcer * Traumatic wound * Non-healing surgical wound * Other * Unable to determine * For a non-pressure ulcer, please indicate the depth/severity: * Limited to the breakdown of skin * With fat layer exposed * With necrosis of muscle * With necrosis of bone * Other * Unable to determine * If a pressure ulcer, please also include the stage* of the ulcer: * Stage 1 - Skin intact, non-blanchable redness * Stage 2 - Partial thickness loss of dermis, includes intact or open blister * Stage 3 - Full thickness tissue not including bone, tendon, or muscle * Stage 4 - Full thickness tissue loss, including exposed bones, tendon, or muscle * Unstageable - Full thickness tissue loss in which the base of the ulcer is covered by slough (yellow, south, crews, green or brown) and/or eschar (south, brown, or black) in the wound bed. * Suspected deep tissue injury - Purple or maroon localized area of discolored intact skin or blood-filled blister due to damage of underlying soft tissues from pressure and/or shear. The area may be preceded by tissue that is painful, firm, mushy, boggy, warmer, or cooler as compare to adjacent tissue. * Unable to determine *Source: National Pressure Ulcer Advisory Panel (NPUAP) Use of terms such as suspected, likely, concern for, or probable (associated with a specific diagnosis that is being evaluated, monitored, or treated as if it exists) are acceptable and can be coded in the inpatient setting, when documented at the time of discharge. Thank you, Jahaira Borjas RN Extension: [phone] Please use your independent medical judgment in providing your response. THIS QUERY IS PART OF THE PERMANENT MEDICAL RECORD Provider Response: Other Other Diagnosis: Unable to determine at this time
--- NOTE | 2021-09-22 11:15 | MHC.CDI.CONC ---
CDI Concurrent Query Documentation Clarification: PHYSICIAN'S DOCUMENTATION REQUEST Date of Query: 09/22/21 1116 Patient Name: Marilou Siddiqui Admit Date: 09/21/21 Dear Doctor, A review of the medical record indicates additional documentation may be indicated. Please review below and update the documentation accordingly. Clinical Indicators: Risk Factors/Clinical Indicators/Treatments Per H&P: Open draining wound left lateral leg Based on the above, could you please provide, in the Progress Notes, further information regarding the ulcer/wound: Location of the ulcer/wound, including laterality Type (etiology) of ulcer/wound: Diabetic ulcer Venous stasis ulcer Arterial (ischemic) ulcer Pressure (decubitus) ulcer Traumatic wound Non-healing surgical wound Other Unable to determine For a non-pressure ulcer, please indicate the depth/severity: Limited to the breakdown of skin With fat layer exposed With necrosis of muscle With necrosis of bone Other Unable to determine If a pressure ulcer, please also include the stage* of the ulcer: Stage 1 - Skin intact, non-blanchable redness Stage 2 - Partial thickness loss of dermis, includes intact or open blister Stage 3 - Full thickness tissue not including bone, tendon, or muscle Stage 4 - Full thickness tissue loss, including exposed bones, tendon, or muscle Unstageable - Full thickness tissue loss in which the base of the ulcer is covered by slough (yellow, south, crews, green or brown) and/or eschar (south, brown, or black) in the wound bed. Suspected deep tissue injury - Purple or maroon localized area of discolored intact skin or blood-filled blister due to damage of underlying soft tissues from pressure and/or shear. The area may be preceded by tissue that is painful, firm, mushy, boggy, warmer, or cooler as compare to adjacent tissue. Unable to determine *Source: National Pressure Ulcer Advisory Panel (NPUAP) Use of terms such as suspected, likely, concern for, or probable (associated with a specific diagnosis that is being evaluated, monitored, or treated as if it exists) are acceptable and can be coded in the inpatient setting, when documented at the time of discharge. Thank you, Jahaira Borjas RN Extension: [phone] Please use your independent medical judgment in providing your response. THIS QUERY IS PART OF THE PERMANENT MEDICAL RECORD Provider Response: Other Other Diagnosis: Unable to determine at this time
--- NOTE | 2021-09-22 11:17 | P.CDIC_ITS ---
CDI Concurrent Query Documentation Clarification: PHYSICIAN'S DOCUMENTATION REQUEST Date of Query: 09/22/21 1117 Patient Name: Marilou Siddiqui Admit Date: 09/21/21 Dear Doctor, A review of the medical record indicates additional documentation may be indicated. Please review below and update the documentation accordingly. Clinical Indicators: Risk Factors/Clinical Indicators/Treatments Per H&P: left leg with open wounds on toes Based on the above, could you please provide, in the Progress Notes, further information regarding the ulcer/wound: * Location of the ulcer/wound, including laterality * Type (etiology) of ulcer/wound: * Diabetic ulcer * Venous stasis ulcer * Arterial (ischemic) ulcer * Pressure (decubitus) ulcer * Traumatic wound * Other * Unable to determine * For a non-pressure ulcer, please indicate the depth/severity: * Limited to the breakdown of skin * With fat layer exposed * With necrosis of muscle * With necrosis of bone * Other * Unable to determine * If a pressure ulcer, please also include the stage* of the ulcer: * Stage 1 - Skin intact, non-blanchable redness * Stage 2 - Partial thickness loss of dermis, includes intact or open blister * Stage 3 - Full thickness tissue not including bone, tendon, or muscle * Stage 4 - Full thickness tissue loss, including exposed bones, tendon, or muscle * Unstageable - Full thickness tissue loss in which the base of the ulcer is covered by slough (yellow, south, crews, green or brown) and/or eschar (south, brown, or black) in the wound bed. * Suspected deep tissue injury - Purple or maroon localized area of discolored intact skin or blood-filled blister due to damage of underlying soft tissues from pressure and/or shear. The area may be preceded by tissue that is painful, firm, mushy, boggy, warmer, or cooler as compare to adjacent tissue. * Unable to determine *Source: National Pressure Ulcer Advisory Panel (NPUAP) Use of terms such as suspected, likely, concern for, or probable (associated with a specific diagnosis that is being evaluated, monitored, or treated as if it exists) are acceptable and can be coded in the inpatient setting, when documented at the time of discharge. Thank you, Jahaira Borjas RN Extension: [phone] Please use your independent medical judgment in providing your response. THIS QUERY IS PART OF THE PERMANENT MEDICAL RECORD Provider Response: Other Other Diagnosis: Unable to determine at this time
--- NOTE | 2021-09-22 11:17 | MHC.CDI.CONC ---
CDI Concurrent Query Documentation Clarification: PHYSICIAN'S DOCUMENTATION REQUEST Date of Query: 09/22/21 1117 Patient Name: Marilou Siddiqui Admit Date: 09/21/21 Dear Doctor, A review of the medical record indicates additional documentation may be indicated. Please review below and update the documentation accordingly. Clinical Indicators: Risk Factors/Clinical Indicators/Treatments Per H&P: left leg with open wounds on toes Based on the above, could you please provide, in the Progress Notes, further information regarding the ulcer/wound: Location of the ulcer/wound, including laterality Type (etiology) of ulcer/wound: Diabetic ulcer Venous stasis ulcer Arterial (ischemic) ulcer Pressure (decubitus) ulcer Traumatic wound Other Unable to determine For a non-pressure ulcer, please indicate the depth/severity: Limited to the breakdown of skin With fat layer exposed With necrosis of muscle With necrosis of bone Other Unable to determine If a pressure ulcer, please also include the stage* of the ulcer: Stage 1 - Skin intact, non-blanchable redness Stage 2 - Partial thickness loss of dermis, includes intact or open blister Stage 3 - Full thickness tissue not including bone, tendon, or muscle Stage 4 - Full thickness tissue loss, including exposed bones, tendon, or muscle Unstageable - Full thickness tissue loss in which the base of the ulcer is covered by slough (yellow, south, crews, green or brown) and/or eschar (south, brown, or black) in the wound bed. Suspected deep tissue injury - Purple or maroon localized area of discolored intact skin or blood-filled blister due to damage of underlying soft tissues from pressure and/or shear. The area may be preceded by tissue that is painful, firm, mushy, boggy, warmer, or cooler as compare to adjacent tissue. Unable to determine *Source: National Pressure Ulcer Advisory Panel (NPUAP) Use of terms such as suspected, likely, concern for, or probable (associated with a specific diagnosis that is being evaluated, monitored, or treated as if it exists) are acceptable and can be coded in the inpatient setting, when documented at the time of discharge. Thank you, Jahaira Borjas RN Extension: [phone] Please use your independent medical judgment in providing your response. THIS QUERY IS PART OF THE PERMANENT MEDICAL RECORD Provider Response: Other Other Diagnosis: Unable to determine at this time
--- NOTE | 2021-09-22 11:23 | P.CDIC_ITS ---
CDI Concurrent Query Documentation Clarification: PHYSICIAN'S DOCUMENTATION REQUEST Date of Query: 09/22/21 1124 Patient Name: Marilou Siddiqui Admit Date: 09/21/21 Dear Doctor, A review of the medical record indicates additional documentation may be needed. Please review below and update the documentation accordingly. Clinical Indicators: Documentation on [insert date] indicates Osteomyelitis. Risk Factors/Clinical Indicators/Treatments Per H&P: Osteomyelitis both feet Based on the above, please clarify in the Progress Notes further specificity regarding the type of Osteomyelitis. Also include specific site with laterality and known or suspected infectious agent: * Acute osteomyelitis * Subacute osteomyelitis * Chronic osteomyelitis * Other (please specify) * Unable to determine Use of terms such as suspected, likely, concern for, or probable (associated with a specific diagnosis that is being evaluated, monitored, or treated as if it exists) are acceptable and can be coded in the inpatient setting, when documented at the time of discharge. Thank you, Jahaira Borjas RN Extension: [phone] Please use your independent medical judgment in providing your response. THIS QUERY IS PART OF THE PERMANENT MEDICAL RECORD Provider Response: Other Other Diagnosis: See Note
--- NOTE | 2021-09-22 11:26 | P.CDIC_ITS ---
CDI Concurrent Query Documentation Clarification: PHYSICIAN'S DOCUMENTATION REQUEST Date of Query: 09/22/21 1126 Patient Name: Marilou Siddiqui Admit Date: 09/21/21 Dear Doctor, A review of the medical record indicates additional documentation may be needed. Please review below and update the documentation accordingly. Risk Factors/Clinical Indicators/Treatments Per H&P: Cellulitis unspecified extremity PMH: DM Please clarify the relationship between these conditions: * Yes, Cellulitis is related to / associated with / due to Diabetes Mellitus * No, Cellulitis is not related to / associated with / due to Diabetes Mellitus * Unable to determine Use of terms such as suspected, likely, concern for, or probable (associated with a specific diagnosis that is being evaluated, monitored, or treated as if it exists) are acceptable and can be coded in the inpatient setting, when documented at the time of discharge. Thank you, Jahaira Borjas RN Extension: [phone] Please use your independent medical judgment in providing your response. THIS QUERY IS PART OF THE PERMANENT MEDICAL RECORD Provider Response: Other Other Diagnosis: See Note
[2021-09-22 11:31] LABS: Estimated Average Glucose 200 mg/dL; Hemoglobin A1c % 8.6 %
--- NOTE | 2021-09-22 11:31 | P.CDIC_ITS ---
CDI Concurrent Query Documentation Clarification: PHYSICIAN'S DOCUMENTATION REQUEST Date of Query: 09/22/21 1131 Patient Name: Marilou Siddiqui Admit Date: 09/21/21 Dear Doctor, A review of the medical record indicates additional documentation may be needed. Please review below and update the documentation accordingly. Risk Factors/Clinical Indicators/Treatments Per MD note 09/22/21: thick eschar on the plantar aspect of the 1st and 2nd metatarsal head, with an open wound.? The area of the eschars about 3.5 cm in diameter. sharply debrided this with scissors to remove in and part of subcutaneous layer. Based on the above, could you clarify in the Progress Notes the appropriate diagnosis, if significant, that supports the above abnormalities and additional evaluation, monitoring, and/or treatment rendered: * Excisional Debridement right great toe * Excisional Debridement right 2nd toe * Excisional Debridement left great toe * Excisional Debridement left 2nd toe * Other (please specify) * Unable to determine Use of terms such as suspected, likely, concern for, or probable (associated with a specific diagnosis that is being evaluated, monitored, or treated as if it exists) are acceptable and can be coded in the inpatient setting, when documented at the time of discharge. Thank you, Jahaira Borjas RN Extension: [phone] Please use your independent medical judgment in providing your response. THIS QUERY IS PART OF THE PERMANENT MEDICAL RECORD Provider Response: Other Other Diagnosis: Unable to answer, not performed by this provider. Will wait completion of Gen. Surg note to answer (it is in draft form at the time of this query). plantar aspect of 1st and second metatarsal head debrided, right side
--- NOTE | 2021-09-22 13:18 | HO.ADDICTCON ---
History of Present Illness Date of Service: 09/24/2021 Chief Complaint: LEG INFECTION W/PAIN, H/O DM Reason for Consult: opioid use--eval and treat Sources of Information: patient interviewed and chart reviewed HPI Narrative: Patient is a 51 year old female currently medically admitted with osteomyelitis of the foot. At time of admission, patient reported occasional heroin use to provider (UDS +fentanyl and opiates) Patient seen in room 10 of ED overflow. Awake, alert, laying in bed. She reports history of IVDU several years ago and was in recovery until almost a year ago when her , She reports she began using heroin again (intransal) to cope for a short period then stopped on her own. Denies recent treatment admissions. Prior to recurrence she had been on MOUD --Suboxone, but stopped. She reports that abotu 3 weeks ago she began using intermittently to deal with pain she was having. Last use reported as being 4 days ago. She reports using fentanyl patches and IN heroin. She was reporting withdrawal sx including nausea, loose stools and general malaise. She is anxious and worried that her family will find out she is using opiates again. She expressed interest in MOUD, but hesitant about subxone. Based on patient history of reported infrequent use, methadone may not be clinically appropriate for ongoing treatment. Also, important to note that patient is prescribed Xanax and Gabapetin QID--both sedating agents Patient had reported multiple falls at home Review of Systems Constitutional: Reports as per HPI Diagnostics Vital Signs (24Hr): Vital Signs - 24 hr 09/21/21 15:42 09/21/21 20:08 09/21/21 20:15 Temperature 98.3 F 97.2 F Pulse Rate 82 70 Respiratory Rate 20 16 16 Blood Pressure 181/78 H 181/65 H Pulse Oximetry 98 98 09/22/21 00:18 09/22/21 08:27 Temperature 97.8 F Pulse Rate 76 78 Respiratory Rate 17 16 Blood Pressure 167/74 H 186/71 H Pulse Oximetry 96 97 BMI result Body Mass Index 26.2 Labs Results: 09/22/21 06:00 09/22/21 06:00 Labs: Laboratory Results - last 48 hr 09/21/21 09/21/21 09/21/21 14:36 14:36 14:36 WBC RBC Hgb Hct MCV MCH MCHC RDW Plt Count MPV Immature Gran % (Auto) Neut % (Auto) Lymph % (Auto) [place] % (Auto) Eos % (Auto) Baso % (Auto) Lymph # (Auto) [place] # (Auto) Eos # (Auto) Baso # (Auto) Abs Immat Gran (auto) Absolute Neuts (auto) Absolute Nucleated RBC Nucleated RBC % (auto) ESR 86 H PT 13.9 H INR 1.2 H Sodium 137 Potassium 3.3 Chloride 102 Carbon Dioxide 27 Anion Gap 11 L BUN 10 Creatinine 0.56 Estim Creat Clear Calc 126.1 Estimated GFR > 60 Random Glucose 156 H Estimat Average Glucose Hemoglobin A1c % Lactic Acid Calcium 7.7 L Magnesium 1.6 Total Bilirubin 0.3 Direct Bilirubin < 0.2 AST 10 ALT 6 Alkaline Phosphatase 98 Total Creatine Kinase 99 C-Reactive Protein 10.74 H Total Protein 6.0 L Albumin 2.5 L Urine Color Urine Appearance Urine pH Ur Specific [place] Urine Protein Urine Glucose (UA) Urine Ketones Urine Blood Urine Nitrite Ur Leukocyte Esterase Urine RBC Urine WBC Ur Squamous Epith Cells Urine Bacteria Vancomycin Trough Urine Opiates Screen Urine Fentanyl Screen Ur Barbiturates Screen Ur Phencyclidine Scrn Ur Amphetamines Screen U Benzodiazepines Scrn Urine Cocaine Screen U Marijuana (THC) Screen COVID-19 (EUSEBIO) COVID-19 Clin Com 09/21/21 09/21/21 09/21/21 14:36 14:36 14:37 WBC 18.1 H RBC 3.43 L Hgb 9.3 L Hct 28.4 L MCV 82.8 MCH 27.1 MCHC 32.7 RDW 15.0 Plt Count 511 H MPV 9.1 L Immature Gran % (Auto) 1.0 H Neut % (Auto) 82.7 H Lymph % (Auto) 11.1 L Bro[place] % (Auto) 4.9 Eos % (Auto) 0.1 Baso % (Auto) 0.2 Lymph # (Auto) 2.0 [place] # (Auto) 0.9 Eos # (Auto) 0.0 Baso # (Auto) 0.0 Abs Immat Gran (auto) 0.18 H Absolute Neuts (auto) 15.0 H Absolute Nucleated RBC 0.000 Nucleated RBC % (auto) 0.0 ESR PT INR Sodium Potassium Chloride Carbon Dioxide Anion Gap BUN Creatinine Estim Creat Clear Calc Estimated GFR Random Glucose Estimat Average Glucose Hemoglobin A1c % Lactic Acid 0.8 Calcium Magnesium Total Bilirubin Direct Bilirubin AST ALT Alkaline Phosphatase Total Creatine Kinase C-Reactive Protein Total Protein Albumin Urine Color Urine Appearance Urine pH Ur Specific [place] Urine Protein Urine Glucose (UA) Urine Ketones Urine Blood Urine Nitrite Ur Leukocyte Esterase Urine RBC Urine WBC Ur Squamous Epith Cells Urine Bacteria Vancomycin Trough Urine Opiates Screen Urine Fentanyl Screen Ur Barbiturates Screen Ur Phencyclidine Scrn Ur Amphetamines Screen U Benzodiazepines Scrn Urine Cocaine Screen U Marijuana (THC) Screen COVID-19 (EUSEBIO) Negative COVID-19 Clin Com See Note 09/21/21 09/22/21 09/22/21 14:54 02:13 06:00 WBC RBC Hgb Hct MCV MCH MCHC RDW Plt Count MPV Immature Gran % (Auto) Neut % (Auto) Lymph % (Auto) Bro[place] % (Auto) Eos % (Auto) Baso % (Auto) Lymph # (Auto) [place] # (Auto) Eos # (Auto) Baso # (Auto) Abs Immat Gran (auto) Absolute Neuts (auto) Absolute Nucleated RBC Nucleated RBC % (auto) ESR PT INR Sodium Potassium Chloride Carbon Dioxide Anion Gap BUN Creatinine Cancelled Estim Creat Clear Calc Cancelled Estimated GFR Cancelled Random Glucose Estimat Average Glucose Hemoglobin A1c % Lactic Acid Calcium Magnesium Total Bilirubin Direct Bilirubin AST ALT Alkaline Phosphatase Total Creatine Kinase C-Reactive Protein Total Protein Albumin Urine Color YELLOW Urine Appearance CLEAR Urine pH 6.0 Ur Specific [place] 1.025 Urine Protein TRACE Urine Glucose (UA) NEG Urine Ketones 5 Urine Blood TRACE Urine Nitrite NEG Ur Leukocyte Esterase NEG Urine RBC 1-4 Urine WBC 0-2 Ur Squamous Epith Cells 1+ Urine Bacteria NONE Vancomycin Trough Urine Opiates Screen POSITIVE H Urine Fentanyl Screen POSITIVE H Ur Barbiturates Screen Not Detected Ur Phencyclidine Scrn Not Detected Ur Amphetamines Screen Not Detected U Benzodiazepines Scrn Not Detected Urine Cocaine Screen Not Detected U Marijuana (THC) Screen Not Detected COVID-19 (EUSEBIO) COVID-19 Clin Com 09/22/21 09/22/21 09/22/21 06:00 06:00 06:00 WBC 15.7 H RBC 3.66 L Hgb 9.8 L Hct 29.7 L MCV 81.1 MCH 26.8 L MCHC 33.0 RDW 14.6 Plt Count 571 H MPV 9.2 L Immature Gran % (Auto) 1.1 H Neut % (Auto) 83.8 H Lymph % (Auto) 10.1 L [place] % (Auto) 4.8 Eos % (Auto) 0.1 Baso % (Auto) 0.1 Lymph # (Auto) 1.6 [place] # (Auto) 0.8 Eos # (Auto) 0.0 Baso # (Auto) 0.0 Abs Immat Gran (auto) 0.18 H Absolute Neuts (auto) 13.2 H Absolute Nucleated RBC 0.000 Nucleated RBC % (auto) 0.0 ESR PT INR Sodium 138 Potassium 3.0 L Chloride 97 Carbon Dioxide 30 H Anion Gap 14 BUN 7 L Creatinine 0.51 Estim Creat Clear Calc 138.6 Estimated GFR > 60 Random Glucose 67 Estimat Average Glucose Hemoglobin A1c % Lactic Acid Calcium 7.7 L Magnesium Total Bilirubin Direct Bilirubin AST ALT Alkaline Phosphatase Total Creatine Kinase C-Reactive Protein Total Protein Albumin Urine Color Urine Appearance Urine pH Ur Specific [place] Urine Protein Urine Glucose (UA) Urine Ketones Urine Blood Urine Nitrite Ur Leukocyte Esterase Urine RBC Urine WBC Ur Squamous Epith Cells Urine Bacteria Vancomycin Trough < 3.0 L Urine Opiates Screen Urine Fentanyl Screen Ur Barbiturates Screen Ur Phencyclidine Scrn Ur Amphetamines Screen U Benzodiazepines Scrn Urine Cocaine Screen U Marijuana (THC) Screen COVID-19 (EUSEBIO) COVID-19 Clin Com 09/22/21 06:00 WBC RBC Hgb Hct MCV MCH MCHC RDW Plt Count MPV Immature Gran % (Auto) Neut % (Auto) Lymph % (Auto) [place] % (Auto) Eos % (Auto) Baso % (Auto) Lymph # (Auto) [place] # (Auto) Eos # (Auto) Baso # (Auto) Abs Immat Gran (auto) Absolute Neuts (auto) Absolute Nucleated RBC Nucleated RBC % (auto) ESR PT INR Sodium Potassium Chloride Carbon Dioxide Anion Gap BUN Creatinine Estim Creat Clear Calc Estimated GFR Random Glucose Estimat Average Glucose 200 Hemoglobin A1c % 8.6 Lactic Acid Calcium Magnesium Total Bilirubin Direct Bilirubin AST ALT Alkaline Phosphatase Total Creatine Kinase C-Reactive Protein Total Protein Albumin Urine Color Urine Appearance Urine pH Ur Specific [place] Urine Protein Urine Glucose (UA) Urine Ketones Urine Blood Urine Nitrite Ur Leukocyte Esterase Urine RBC Urine WBC Ur Squamous Epith Cells Urine Bacteria Vancomycin Trough Urine Opiates Screen Urine Fentanyl Screen Ur Barbiturates Screen Ur Phencyclidine Scrn Ur Amphetamines Screen U Benzodiazepines Scrn Urine Cocaine Screen U Marijuana (THC) Screen COVID-19 (EUSEBIO) COVID-19 Clin Com Imaging Radiology Impressions: ITS Impressions Venous Duplex 09/21/21 13:48 IMPRESSION: No DVT demonstrated in the left lower extremity. Cervical Spine CT 09/21/21 15:17 IMPRESSION: Mild degenerative changes. No fracture or dislocation seen. Fleischner guidelines were followed. Head CT 09/21/21 15:17 IMPRESSION: No acute intracranial findings. Sinus disease. Foot X-Ray 09/21/21 15:22 IMPRESSION: Bone destruction and soft tissue loss of the distal great toe suggestive of osteomyelitis. Foot X-Ray 09/21/21 15:22 IMPRESSION: Fracture dislocation of the first MTP joint with osteopenia and bone destruction questionable for septic arthritis/osteomyelitis. Destruction of the phalanx and metatarsal head and distal shaft of the second toe suggestive of osteomyelitis. Probable postsurgical amputation of the third toe. New soft tissue foreign body adjacent to the plantar fourth metatarsal head. New fracture of the distal shaft or neck of the fifth metatarsal bone. Hand X-Ray 09/21/21 15:22 IMPRESSION: Question old trauma to the ulnar styloid and soft tissues lateral to the fifth HALF-WAY joint and dorsal wrist and distal forearm. No acute fracture or dislocation. Mild arthritis at the first HALF-WAY joint. Knee X-Ray 09/21/21 15:22 IMPRESSION: Degenerative changes and joint effusion. Question old subchondral injury of the medial femoral condyle. Mental Status Exam Mental Status Exam Patient Appearance: Disheveled Patient Orientation: Person, Place, Time and Situation Level of Consciousness: Awake Patient Behavior: Guarded and Cooperative Mood Description: Anxious Affect Description: Anxious and Sad Patient Cognition Impaired: No Thought Process: Rumination Thought Content: positive for Circumstantial Judgement: Fair (limited insight) Medications Medications Current Medications Acetaminophen (Acetaminophen 325 Mg Tablet) 650 mg PO Q6H PRN PRN Reason: Pain, Mild (Pain Scale 1-3) Alprazolam (Alprazolam 0.5 Mg Tablet) 2 mg PO BID [facility] Last Admin: 09/22/21 08:10 Dose: 2 mg Documented by: Gabapentin (Gabapentin 400 Mg Capsule) 400 mg PO QID [facility] Last Admin: 09/22/21 13:10 Dose: 400 mg Documented by: Heparin Sodium (Porcine) (Heparin Sodium,Porcine 5,000 Unit/Ml Vial) 5,000 unit SUBCUT Q12H [facility] Last Admin: 09/22/21 05:59 Dose: 5,000 unit Documented by: Vancomycin HCl 1,250 mg/ (Sodium Chloride) 250 mls @ 166.667 mls/hr IV Q12H [facility] Last Infusion: 09/22/21 11:18 Dose: Infused Documented by: Piperacillin Sod/Tazobactam (Sod 4.5 gm/ Sodium Chloride) 100 mls @ 200 mls/hr IV Q6H [facility] Last Admin: 09/22/21 13:11 Dose: 200 mls/hr Documented by: Insulin Glargine (Insulin Glargine,Hum.Rec.Anlog 100 Unit/Ml 10 Ml Vial) 35 unit SUBCUT BEDTIME [facility] Last Admin: 09/21/21 20:31 Dose: 35 unit Documented by: Insulin Human Lispro (Insulin Lispro 100 Unit/Ml 3 Ml Vial) 0 unit SUBCUT QIDACHS [facility]; Protocol Morphine Sulfate (Morphine Sulfate 2 Mg/Ml Cartridge) 4 mg IVPUSH Q4H PRN; Protocol PRN Reason: Pain, Mild (Pain Scale 1-3) Ondansetron HCl (Ondansetron Hcl 4 Mg/2 Ml Vial) 4 mg IVPUSH Q8H PRN PRN Reason: Nausea and Vomiting Pharmacy Consult (Consult Rx Perform Med Rec) 1 each MISCELLANE ONCE PRN PRN Reason: Consult order Pharmacy Consult (Consult Rx Vancomycin Dosing) 1 each MISCELLANE DAILY PRN PRN Reason: Consult order Sertraline HCl (Sertraline Hcl 100 Mg Tablet) 100 mg PO BID [facility] Last Admin: 09/22/21 08:11 Dose: Not Given Documented by: Sodium Chloride (0.9 % Sodium Chloride Flush 3 Ml Syringe) 3 ml IVFLUSH QSHIFT [facility] Last Admin: 09/22/21 13:11 Dose: Not Given Documented by: Allergies Allergies Allergy/AdvReac Type Severity Reaction Status Date / Time prednisone [PREDNISONE] Allergy Unknown RASH Unverified 09/01/20 10:06 Assessment & Plan Assessment & Plan (1) Opioid use disorder: Status: Acute Code(s): F11.90 - Opioid use, unspecified, uncomplicated Assessment and Plan: currently ordered morphine 4mg q6 PRN. Patient seen again at the end of the day, and sleeping soundly. will follow up in AM to discuss restarting suboxone if this is of interest to her. I spent ___55___ minutes with the patient and/or on the patient floor today, greater than?50% of which was spent counseling/coordinating care. PMFSH Past Medical History Medical History Anxiety Diabetes No known health problems Substance abuse Social History Social History (Updated 09/22/21 @ 16:53 by Bev Salazar CNP) Alcohol intake: never Patient Tobacco Use Status: Current everyday Tobacco user Substance Use Type: Heroin Substance Use Frequency: Occasionally Substance Use Frequency Other:: reporting use every few days Last Used Substance: Days (ago) Currently Displaying Signs/Symptoms of Drug Intoxication Withdrawal: No Any prior treatment program specific to substance use: Yes
[2021-09-22 13:56] LABS: Glucose, Whole Blood 84 mg/dL (60-115)
--- NOTE | 2021-09-22 14:08 | PC.NURSE ---
Addendum entered by Kimber Fuentes RN 09/24/21 07:16: Upon further assessment of skin, patient has moisture associated skin damage to bilaateral inner thigh, nimisha area and buttocks. Triad applied to buttocks, periarea, and left inner thigh. Xeroform applied to right inner thigh. Original Note: Skin/wound assessment completed today. Patient has a diabetic ulcer to left great toe with yellow and pink wound bed. Silver alginate applied to wound bed covered with non woven gauze and roll gauze. Patient also has diabetic ulcer to plantar right foot and plantar right great toe-yellow/white wound bed and red granulated with some eschar on great toe wound bed-silver alginate applied covered with non woven gauze and roll gauze. Triad applied to top of right foot and in between toes. Patient also has cellulitis to left lower leg with dry yellow patches- Sween 24 moisturizer was applied.
--- NOTE | 2021-09-22 14:44 | MHC.CM.PN ---
Attempted to meet with patient in regards to discharge planning. Nursing care currently being provided. Will attempt to meet again. Continue to monitor for d/c needs.
[2021-09-22 14:46] VITALS: BP 178/70; PULSE 82; RESP 14; TEMP 37.3; O2SAT 92
[2021-09-22 15:59] VITALS: BP 190/86; PULSE 87; RESP 18; TEMP 36.8; O2SAT 98
[2021-09-22] MEDS: Morphine Sulfate 2 MG/ML CARTRIDGE 4 MG IVPUSH ×2 (16:01→20:09)
[2021-09-22 16:27] LABS: Glucose, Whole Blood 108 mg/dL (60-115)
[2021-09-22] MEDS: Nicotine 21 MG PATCH.TD24 TRANSDERMA (18:20)
[2021-09-22] MEDS: ondansetron HCL 4 MG/2 ML VIAL IVPUSH (18:27)
[2021-09-22 20:09] LABS: Glucose, Whole Blood 101 mg/dL (60-115)
[2021-09-22] MEDS: Insulin Glargine,Hum.rec.anlog 100 UNIT/ML 10 ML VIAL 35 UNIT SUBCUT (20:09)
[2021-09-22 20:30] VITALS: BP 197/92; PULSE 83; RESP 20; TEMP 37; O2SAT 97
[2021-09-23] VITALS (11 sets, daily range): BP systolic 149–194; BP diastolic 68–100; PULSE 79–87; RESP 16–20; TEMP 36.1–37.3; O2SAT 95–100
[2021-09-23] MEDS: Morphine Sulfate 2 MG/ML CARTRIDGE 4 MG IVPUSH ×6 (00:19→20:32)
[2021-09-23] MEDS: Piperacillin Sodium/Tazobactam 4.5 GM in 0.9 % Sodium Chloride 100 ML IV ×4 (00:21→18:54)
[2021-09-23] MEDS: Heparin Sodium,Porcine 5,000 UNIT/ML VIAL 5000 UNIT SUBCUT ×2 (05:59→18:01)
[2021-09-23 06:04] LABS: Hematocrit 31.1 % (37.0-47.0); Hemoglobin 10.5 g/dl (12.0-16.0); Mean Corpuscular HGB Conc 33.8 g/dl (31.0-35.0); Mean Corpuscular Hemoglobin 27.3 pg (27.0-33.0); Mean Corpuscular Volume 80.8 fL (80.0-98.0); Mean Platelet Volume 9.3 fL (9.4-12.3); Platelet Count 569 X10*3/uL (160-400); Red Blood Count 3.85 X10*6/uL (4.20-5.50); Red Cell Distribution Width 14.5 % (11.0-16.0); White Blood Count 13.6 X10*3/uL (4.8-10.8)
[2021-09-23 06:22] LABS: Vancomycin Trough 13.3 mcg/mL (10.0-20.0)
[2021-09-23 06:34] LABS: Anion Gap 13 (12-20); Blood Urea Nitrogen 7 mg/dL (9-16); Calcium 7.6 mg/dL (8.4-10.2); Carbon Dioxide 32 mmol/L (22-29); Chloride 94 mmol/L (96-108); Creatinine Clr Calc Pharmacy 121.8; Estimated Glomerular Filt Rate > 60; Glucose Random 144 mg/dL (60-115); Potassium 2.6 mmol/L (3.3-5.1); Sodium 136 mmol/L (135-145)
--- NOTE | 2021-09-23 06:41 | HE.PHANOTE ---
RE: Vancomycin Current regimen is 1250mg q12h. Latest trough is 13.3. Continue 1250mg q12h with a calculated AUC of 474. Patient's WBC is dropping. Follow cultures and sensitivity (GPC stain) to [facility]. Thanks Zulay Nguyen
[2021-09-23 07:15] LABS: Glucose, Whole Blood 141 mg/dL (60-115)
[2021-09-23 07:38] LABS: Magnesium 1.5 mg/dL (1.6-2.6)
[2021-09-23] MEDS: Nicotine 21 MG PATCH.TD24 TRANSDERMA (07:49)
[2021-09-23] MEDS: ALPRAZolam 0.5 MG TABLET 2 MG PO ×2 (07:49→20:32)
[2021-09-23] MEDS: Potassium Chloride ER 20 MEQ TAB.ER.PRT 40 MEQ PO (07:49)
[2021-09-23] MEDS: Gabapentin 400 MG CAPSULE PO ×4 (07:50→20:32)
[2021-09-23] MEDS: Potassium Chloride/H20 10 MEQ/100 ML PIGGYBACK 100 MEQ IV ×2 (07:50→09:43)
[2021-09-23] MEDS: 0.9 % Sodium Chloride Flush 3 ML SYRINGE IVFLUSH ×3 (07:50→23:00)
[2021-09-23] MEDS: vancomycin HCL 1,250 MG in 0.9 % Sodium Chloride 250 ML 166.67 MG IV ×2 (07:51→20:33)
--- NOTE | 2021-09-23 09:34 | P.PNGS_ITS ---
Subjective Subjective Date of Service: 09/24/21 Interval history: Complaints of pain on foot asking for narcotics otherwise no other events reported Physical Exam Vital Signs: Vital Signs: Last Vital Signs Temp 97 F 09/23/21 07:08 Pulse 81 09/23/21 07:08 Resp 20 09/23/21 07:08 BP 190/94 H 09/23/21 07:08 Pulse Ox 98 09/23/21 07:08 BMI result Body Mass Index 26.2 Const: General: no acute distress Resp: Effort & Inspection: normal respiratory effort Cardio: Rate: regular rate GI: Palpation (GI): Soft to palpation and nontender Extrem: Other: right foot ulcer on the plantar aspect at the areaof the 1st and 2nd metatarsal head, clean after debridement yesterday, with some scanty drainage, Objective Data Active Medications Acetaminophen (Acetaminophen 325 Mg Tablet) 650 mg PO Q6H PRN PRN Reason: Pain, Mild (Pain Scale 1-3) Alprazolam (Alprazolam 0.5 Mg Tablet) 2 mg PO BID [facility] Last Admin: 09/23/21 07:49 Dose: 2 mg Documented by: NIC Amlodipine Besylate (Amlodipine Besylate 5 Mg Tablet) 5 mg PO DAILY [facility]; Protocol Gabapentin (Gabapentin 400 Mg Capsule) 400 mg PO QID [facility] Last Admin: 09/23/21 07:50 Dose: 400 mg Documented by: NIC Heparin Sodium (Porcine) (Heparin Sodium,Porcine 5,000 Unit/Ml Vial) 5,000 unit SUBCUT Q12H [facility] Last Admin: 09/23/21 05:59 Dose: 5,000 unit Documented by: JOAN Vancomycin HCl 1,250 mg/ (Sodium Chloride) 250 mls @ 166.667 mls/hr IV Q12H [facility] Last Infusion: 09/23/21 09:34 Dose: 0 mls/hr Documented by: NIC Piperacillin Sod/Tazobactam (Sod 4.5 gm/ Sodium Chloride) 100 mls @ 200 mls/hr IV Q6H [facility] Last Infusion: 09/23/21 07:52 Dose: 0 mls/hr Documented by: NIC Potassium Chloride () 10 meq in 100 mls @ 100 mls/hr IV Q1H [facility] Stop: 09/23/21 11:29 Last Infusion: 09/23/21 09:20 Dose: 0 mls/hr Documented by: NIC Magnesium Sulfate (Magnesium Sulfate/H2o) 2 gm in 50 mls @ 25 mls/hr IV ONCE ONE Stop: 09/23/21 10:21 Insulin Glargine (Insulin Glargine,Hum.Rec.Anlog 100 Unit/Ml 10 Ml Vial) 35 unit SUBCUT BEDTIME [facility] Last Admin: 09/22/21 20:09 Dose: 35 unit Documented by: NIKI Insulin Human Lispro (Insulin Lispro 100 Unit/Ml 3 Ml Vial) 0 unit SUBCUT QIDACHS [facility]; Protocol Last Admin: 09/23/21 07:41 Dose: Not Given Documented by: NIC Non-Admin Reason: No Insulin Coverage Morphine Sulfate (Morphine Sulfate 2 Mg/Ml Cartridge) 4 mg IVPUSH Q4H PRN; Protocol PRN Reason: Pain, Mild (Pain Scale 1-3) Last Admin: 09/23/21 08:06 Dose: 4 mg Documented by: NIC Nicotine (Nicotine 21 Mg Patch.Td24) 21 mg TRANSDERMA DAILY [facility] Last Admin: 09/23/21 07:49 Dose: 21 mg Documented by: NIC Ondansetron HCl (Ondansetron Hcl 4 Mg/2 Ml Vial) 4 mg IVPUSH Q8H PRN PRN Reason: Nausea and Vomiting Last Admin: 09/22/21 18:27 Dose: 4 mg Documented by: MELLISSA Pharmacy Consult (Consult Rx Perform Med Rec) 1 each MISCELLANE ONCE PRN PRN Reason: Consult order Pharmacy Consult (Consult Rx Vancomycin Dosing) 1 each MISCELLANE DAILY PRN PRN Reason: Consult order Sertraline HCl (Sertraline Hcl 100 Mg Tablet) 100 mg PO BID [facility] Last Admin: 09/23/21 07:52 Dose: Not Given Documented by: NIC Non-Admin Reason: Patient Refused Sodium Chloride (0.9 % Sodium Chloride Flush 3 Ml Syringe) 3 ml IVFLUSH QSHIFT [facility] Last Admin: 09/23/21 07:50 Dose: 3 ml Documented by: NIC Labs CBC & Chem 7: 09/24/21 07:56 09/24/21 07:56 Labs: Laboratory Results - last 24 hr 09/22/21 09/22/21 09/22/21 06:00 13:50 16:07 MCV MCH MCHC RDW Plt Count MPV Absolute Nucleated RBC Nucleated RBC % (auto) Anion Gap Estim Creat Clear Calc Estimated GFR POC Glucose 84 108 Random Glucose Estimat Average Glucose 200 Hemoglobin A1c % 8.6 Calcium Magnesium Vancomycin Trough 09/22/21 09/23/21 09/23/21 20:05 05:47 05:47 MCV 80.8 MCH 27.3 MCHC 33.8 RDW 14.5 Plt Count 569 H MPV 9.3 L Absolute Nucleated RBC 0.000 Nucleated RBC % (auto) 0.0 Anion Gap Estim Creat Clear Calc Estimated GFR POC Glucose 101 Random Glucose Estimat Average Glucose Hemoglobin A1c % Calcium Magnesium Vancomycin Trough 13.3 09/23/21 09/23/21 05:47 07:08 MCV MCH MCHC RDW Plt Count MPV Absolute Nucleated RBC Nucleated RBC % (auto) Anion Gap 13 Estim Creat Clear Calc 121.8 Estimated GFR > 60 POC Glucose 141 H Random Glucose 144 H Estimat Average Glucose Hemoglobin A1c % Calcium 7.6 L Magnesium 1.5 L Vancomycin Trough Microbiology Microbiology Results: Microbiology 09/21/21 14:54 Blood Culture - Preliminary Blood - Venous Staphylococcus species 09/21/21 14:54 Blood Culture - Preliminary Blood - Venous No growth after 24 hours. Procedures Date of Service Date of Service: 09/24/21 Progress Note: A&P Assessment and plan (1) Osteomyelitis: Status: Acute Assessment and Plan: she has a plantar ulcer which had been debrided because of a thick eschar her x-ray however shows significant bony destruction of the distal 1st and 2nd metatarsal consistent with osteomyelitis this is unlikely to resolve with IV antibiotics in view of the significant bony destruction I explained to her that it may be best to proceed with transmetatarsal lesion of the foot as she already had the 3rd toe amputated she understands the technique of this procedure. I reviewed the risks including but not limited to bleeding, infections, poor healing, and even the need for BKA in the future she says she will go ahead with the transmetatarsal amputation but does not want any BKA I can tentatively schedule her for this transmetatarsal amputation of the right foot tomorrow she also has osteomyelitis of the big toe on the left with a small ulcer she wants this does saved and does not want proceed with amputation of this left big toe she is willing to undergo prolonged IV antibiotic treatment for this Fall Risk Details Current Medications: Current Medications Acetaminophen (Acetaminophen 325 Mg Tablet) 650 mg PO Q6H PRN PRN Reason: Pain, Mild (Pain Scale 1-3) Alprazolam (Alprazolam 0.5 Mg Tablet) 2 mg PO BID [facility] Last Admin: 09/23/21 07:49 Dose: 2 mg Documented by: Amlodipine Besylate (Amlodipine Besylate 5 Mg Tablet) 5 mg PO DAILY [facility]; Protocol Gabapentin (Gabapentin 400 Mg Capsule) 400 mg PO QID [facility] Last Admin: 09/23/21 07:50 Dose: 400 mg Documented by: Heparin Sodium (Porcine) (Heparin Sodium,Porcine 5,000 Unit/Ml Vial) 5,000 unit SUBCUT Q12H [facility] Last Admin: 09/23/21 05:59 Dose: 5,000 unit Documented by: Vancomycin HCl 1,250 mg/ (Sodium Chloride) 250 mls @ 166.667 mls/hr IV Q12H [facility] Last Infusion: 09/23/21 09:34 Dose: Infused Documented by: Piperacillin Sod/Tazobactam (Sod 4.5 gm/ Sodium Chloride) 100 mls @ 200 mls/hr IV Q6H [facility] Last Infusion: 09/23/21 07:52 Dose: Infused Documented by: Potassium Chloride () 10 meq in 100 mls @ 100 mls/hr IV Q1H [facility] Stop: 09/23/21 11:29 Last Infusion: 09/23/21 09:20 Dose: Infused Documented by: Magnesium Sulfate (Magnesium Sulfate/H2o) 2 gm in 50 mls @ 25 mls/hr IV ONCE ONE Stop: 09/23/21 10:21 Insulin Glargine (Insulin Glargine,Hum.Rec.Anlog 100 Unit/Ml 10 Ml Vial) 35 unit SUBCUT BEDTIME [facility] Last Admin: 09/22/21 20:09 Dose: 35 unit Documented by: Insulin Human Lispro (Insulin Lispro 100 Unit/Ml 3 Ml Vial) 0 unit SUBCUT QIDACHS [facility]; Protocol Last Admin: 09/23/21 07:41 Dose: Not Given Documented by: Morphine Sulfate (Morphine Sulfate 2 Mg/Ml Cartridge) 4 mg IVPUSH Q4H PRN; Protocol PRN Reason: Pain, Mild (Pain Scale 1-3) Last Admin: 09/23/21 08:06 Dose: 4 mg Documented by: Nicotine (Nicotine 21 Mg Patch.Td24) 21 mg TRANSDERMA DAILY [facility] Last Admin: 09/23/21 07:49 Dose: 21 mg Documented by: Ondansetron HCl (Ondansetron Hcl 4 Mg/2 Ml Vial) 4 mg IVPUSH Q8H PRN PRN Reason: Nausea and Vomiting Last Admin: 09/22/21 18:27 Dose: 4 mg Documented by: Pharmacy Consult (Consult Rx Perform Med Rec) 1 each MISCELLANE ONCE PRN PRN Reason: Consult order Pharmacy Consult (Consult Rx Vancomycin Dosing) 1 each MISCELLANE DAILY PRN PRN Reason: Consult order Sertraline HCl (Sertraline Hcl 100 Mg Tablet) 100 mg PO BID [facility] Last Admin: 09/23/21 07:52 Dose: Not Given Documented by: Sodium Chloride (0.9 % Sodium Chloride Flush 3 Ml Syringe) 3 ml IVFLUSH QSHIFT [facility] Last Admin: 09/23/21 07:50 Dose: 3 ml Documented by: Time Spent With Patient Time: Total time spent is greater than 50% in coordination of care (as documented) at patient's floor/unit and/or counseling patient: Time with patient: 15 - 24 minutes Quality Stroke Does the patient have a stroke diagnosis?: No VTE Prior VTE?: No VTE Risk Level:: Medical - moderate - high VTE Device Contraindication: Treatment Not Indicated VTE Drug Contraindication: N/A - Med Ordered
[2021-09-23] MEDS: amLODIPine Besylate 5 MG TABLET PO (09:44)
[2021-09-23] MEDS: Magnesium Sulfate/H2O 2 GM/50 ML PIGGYBACK IV (09:44)
--- NOTE | 2021-09-23 11:17 | HO.PM.IMPN ---
Subjective Subjective Date of Service: 09/23/21 Interval History: seen and examined this morning follow up for osteomyelitis dressings changed by surgery this morning patient reports discussion for right foot amputation in am, she is very anxious about this nurse reporting diarrhea Review of Systems Review of Systems: Yes all other systems are reviewed and are negative Constitutional Constitutional: Denies chills and Denies fever(s) Respiratory Respiratory: Denies cough Gastrointestinal Gastrointestinal: Denies abdominal pain Physical Exam Vital Signs: Vital Signs: Last Vital Signs Temp 97 F 09/23/21 10:55 Pulse 83 09/23/21 10:55 Resp 18 09/23/21 10:55 BP 170/90 H 09/23/21 10:55 Pulse Ox 97 09/23/21 10:55 BMI result Body Mass Index 26.2 Const: General: alert, awake and anxious Nutritional Appearance: average body habitus Orientation/consciousness: patient oriented x3 Resp: Effort & Inspection: normal respiratory effort and able to speak in complete sentences Cardio: Rate: regular rate Heart sounds: S1 normal heart sound present GI: Inspection: No distended Palpation (GI): Soft to palpation and nontender Neuro: General: patient oriented x3 Extrem: Other: right foot and left toe wrapped in c/d/i bandage; no significant leg edema Objective Data Active Medications Acetaminophen (Acetaminophen 325 Mg Tablet) 650 mg PO Q6H PRN PRN Reason: Pain, Mild (Pain Scale 1-3) Alprazolam (Alprazolam 0.5 Mg Tablet) 2 mg PO BID [facility] Last Admin: 09/23/21 07:49 Dose: 2 mg Documented by: NIC Amlodipine Besylate (Amlodipine Besylate 5 Mg Tablet) 5 mg PO DAILY [facility]; Protocol Last Admin: 09/23/21 09:44 Dose: 5 mg Documented by: NIC Gabapentin (Gabapentin 400 Mg Capsule) 400 mg PO QID [facility] Last Admin: 09/23/21 07:50 Dose: 400 mg Documented by: NIC Heparin Sodium (Porcine) (Heparin Sodium,Porcine 5,000 Unit/Ml Vial) 5,000 unit SUBCUT Q12H [facility] Last Admin: 09/23/21 05:59 Dose: 5,000 unit Documented by: JOAN Vancomycin HCl 1,250 mg/ (Sodium Chloride) 250 mls @ 166.667 mls/hr IV Q12H [facility] Last Infusion: 09/23/21 09:34 Dose: 0 mls/hr Documented by: NIC Piperacillin Sod/Tazobactam (Sod 4.5 gm/ Sodium Chloride) 100 mls @ 200 mls/hr IV Q6H [facility] Last Infusion: 09/23/21 07:52 Dose: 0 mls/hr Documented by: NIC Potassium Chloride () 10 meq in 100 mls @ 100 mls/hr IV Q1H [facility] Stop: 09/23/21 11:29 Last Admin: 09/23/21 09:43 Dose: 100 mls/hr Documented by: NIC Insulin Glargine (Insulin Glargine,Hum.Rec.Anlog 100 Unit/Ml 10 Ml Vial) 35 unit SUBCUT BEDTIME [facility] Last Admin: 09/22/21 20:09 Dose: 35 unit Documented by: NIKI Insulin Human Lispro (Insulin Lispro 100 Unit/Ml 3 Ml Vial) 0 unit SUBCUT QIDACHS [facility]; Protocol Last Admin: 09/23/21 07:41 Dose: Not Given Documented by: NIC Non-Admin Reason: No Insulin Coverage Morphine Sulfate (Morphine Sulfate 2 Mg/Ml Cartridge) 4 mg IVPUSH Q4H PRN; Protocol PRN Reason: Pain, Mild (Pain Scale 1-3) Last Admin: 09/23/21 08:06 Dose: 4 mg Documented by: NIC Nicotine (Nicotine 21 Mg Patch.Td24) 21 mg TRANSDERMA DAILY [facility] Last Admin: 09/23/21 07:49 Dose: 21 mg Documented by: NIC Ondansetron HCl (Ondansetron Hcl 4 Mg/2 Ml Vial) 4 mg IVPUSH Q8H PRN PRN Reason: Nausea and Vomiting Last Admin: 09/22/21 18:27 Dose: 4 mg Documented by: MELLISSA Pharmacy Consult (Consult Rx Perform Med Rec) 1 each MISCELLANE ONCE PRN PRN Reason: Consult order Pharmacy Consult (Consult Rx Vancomycin Dosing) 1 each MISCELLANE DAILY PRN PRN Reason: Consult order Sertraline HCl (Sertraline Hcl 100 Mg Tablet) 100 mg PO BID [facility] Last Admin: 09/23/21 07:52 Dose: Not Given Documented by: NIC Non-Admin Reason: Patient Refused Sodium Chloride (0.9 % Sodium Chloride Flush 3 Ml Syringe) 3 ml IVFLUSH QSHIFT [facility] Last Admin: 09/23/21 07:50 Dose: 3 ml Documented by: NIC Labs CBC & Chem 7: 09/23/21 05:47 09/23/21 05:47 Labs: Laboratory Results - last 24 hr 09/22/21 09/22/21 09/22/21 06:00 13:50 16:07 MCV MCH MCHC RDW Plt Count MPV Absolute Nucleated RBC Nucleated RBC % (auto) Anion Gap Estim Creat Clear Calc Estimated GFR POC Glucose 84 108 Random Glucose Estimat Average Glucose 200 Hemoglobin A1c % 8.6 Calcium Magnesium Vancomycin Trough 09/22/21 09/23/21 09/23/21 20:05 05:47 05:47 MCV 80.8 MCH 27.3 MCHC 33.8 RDW 14.5 Plt Count 569 H MPV 9.3 L Absolute Nucleated RBC 0.000 Nucleated RBC % (auto) 0.0 Anion Gap Estim Creat Clear Calc Estimated GFR POC Glucose 101 Random Glucose Estimat Average Glucose Hemoglobin A1c % Calcium Magnesium Vancomycin Trough 13.3 09/23/21 09/23/21 05:47 07:08 MCV MCH MCHC RDW Plt Count MPV Absolute Nucleated RBC Nucleated RBC % (auto) Anion Gap 13 Estim Creat Clear Calc 121.8 Estimated GFR > 60 POC Glucose 141 H Random Glucose 144 H Estimat Average Glucose Hemoglobin A1c % Calcium 7.6 L Magnesium 1.5 L Vancomycin Trough Microbiology Microbiology Results: Microbiology 09/21/21 14:54 Blood Culture - Preliminary Blood - Venous Staphylococcus species 09/21/21 14:54 Blood Culture - Preliminary Blood - Venous No growth after 24 hours. Assessment and Plan (1) Opioid use disorder: Status: Acute (2) Osteomyelitis: Status: Acute Plan This is a 51 yo F with a PMH of DM, OUD (snorts heroin), anxiety, who presents to the hospital with R foot pain. Her presentation is consistent with sepsis secondary to osteomyelitis. Sepsis secondary to osteomyelitis/septic arthritis of the R 1st TMP joint, Osteo the L Great Toe -- suspected due to DM Sepsis improving Continue broad spec IV anbitioics with IV vanco/zosyn Gen Surg input appreciated -agreeable to right transmetatarsal amputation; L foot -- likely to require 6 weeks IV antibiotics 1/2 BCx growing gram + cocci ID consult pending HTN bp uncontrolled not on meds at baseline will start Norvasc 5 mg, will likely need titration Hypokalemia/hypomagnesemia replace and follow Diarrhea may be secondary to withdrawal check cdif DM HbA1c 8.6 continue lantus, add sliding scale diabetic diet Opiate use disorder see by Addiction medicine methadone not clinically appropriate at this time, will consider resuming suboxone tobacco dependence smoking cessation advised NRT Mood Xanax, zoloft Falls likely due to weakness related to foot issues eventual PT eval she has indicated that she would not want to go to rehab Full Code DVT pptx, subcut. heparin Attending: dr. radha Austin Stroke Does the patient have a stroke diagnosis?: No VTE Prior VTE?: No VTE Risk Level:: Medical - moderate - high VTE Device Contraindication: Treatment Not Indicated VTE Drug Contraindication: N/A - Med Ordered
[2021-09-23 11:18] LABS: Glucose, Whole Blood 183 mg/dL (60-115)
[2021-09-23 12:35] LABS: Potassium 3.5 mmol/L (3.3-5.1)
--- NOTE | 2021-09-23 15:27 | MHC.CM.PN ---
Addendum entered by Pearl Velez 09/23/21 15:37: HCP COMPLETED AND ON CHART Original Note: CM MET WITH PT AND HER SON-IN-LW, WAY[place]. PT REPORTS SHE LIVES WITH HER SON AND HIS GF STAYS THERE A FEW NIGHTS PER WEEK, SHE REPORTS SHE ALSO HAS A ROOMMATE WHO IS IN A WHEELCHAIR. SHE REPORTS ZACHARY JONES IS HER PCP SHE WILL COMPLETE A HCP TODAY NAMING HER DAUGHTER ADRIENNE EVANS ([phone]) AND WAYNE BURNS ([phone]) HER PRIMARY AND ALTERNATE AGENTS RESPECTIVELY. PT AND SON IN LAW EXPRESS CONCERN THAT PT HAS NO DME AT HOME AND WILL HAVE A BKA. THEY ARE REQUESTING A PRESCRIPTION FOR A WALKER AND WHEEL CHAIR. PT ALSO EXPRESSES CONCERN ABOUT GETTING PAIN MEDICATIONS AT DC. THEY ARE ALSO ASKING ABOUT ONGOING HOME CARE, CM INFORMED THEM THEY MUST ADDRESS THIS WITH PTS PCP. A PCP APPT WILL BE MADE PRIOR TO DC, THEY ASK FOR SOMETHING AFTER 1200 ANY DAY. . CURRENT DC PLAN IS HOME WITH [facility]. SON-IN-LAW WILL TRANSPORT
[2021-09-23 16:35] LABS: Glucose, Whole Blood 172 mg/dL (60-115)
[2021-09-23] MEDS: Insulin Lispro 100 UNIT/ML 3 ML VIAL SUBCUT ×2 (18:02→21:32)
[2021-09-23] MEDS: ondansetron HCL 4 MG/2 ML VIAL IVPUSH (20:31)
[2021-09-23 21:13] LABS: Glucose, Whole Blood 180 mg/dL (60-115)
[2021-09-23] MEDS: Insulin Glargine,Hum.rec.anlog 100 UNIT/ML 10 ML VIAL 35 UNIT SUBCUT (21:31)
[2021-09-24] VITALS (23 sets, daily range): BP systolic 145–200; BP diastolic 65–90; PULSE 74–92; RESP 16–24; TEMP 36.4–37.4; O2SAT 92–100
[2021-09-24] MEDS: Morphine Sulfate 2 MG/ML CARTRIDGE 4 MG IVPUSH ×5 (00:36→23:26)
[2021-09-24] MEDS: Piperacillin Sodium/Tazobactam 4.5 GM in 0.9 % Sodium Chloride 100 ML IV ×3 (00:38→18:47)
[2021-09-24] MEDS: Acetaminophen 325 MG TABLET 650 MG PO (02:04)
--- NOTE | 2021-09-24 07:12 | PC.NURSE ---
0000; Per nursing janitorial services supervisor, patient on schedule for surgery of right foot metatarsal amputation @ 1440; 09/24. Patient was npo since midnight. (no orders placed for npo) Day shift Rn made aware patient was kept NPO for possible surgery 09/24
[2021-09-24 07:28] LABS: Glucose, Whole Blood 160 mg/dL (60-115)
[2021-09-24] MEDS: 0.9 % Sodium Chloride Flush 3 ML SYRINGE IVFLUSH ×3 (08:33→22:45)
[2021-09-24] MEDS: ALPRAZolam 0.5 MG TABLET 2 MG PO ×2 (08:33→20:30)
[2021-09-24] MEDS: amLODIPine Besylate 10 MG TABLET PO (08:34)
[2021-09-24] MEDS: vancomycin HCL 1,250 MG in 0.9 % Sodium Chloride 250 ML 166.7 MG IV (08:38)
[2021-09-24] MEDS: Nicotine 21 MG PATCH.TD24 TRANSDERMA (08:44)
[2021-09-24 08:51] LABS: Hematocrit 35.7 % (37.0-47.0); Hemoglobin 11.3 g/dl (12.0-16.0); Mean Corpuscular HGB Conc 31.7 g/dl (31.0-35.0); Mean Corpuscular Hemoglobin 26.5 pg (27.0-33.0); Mean Corpuscular Volume 83.8 fL (80.0-98.0); Mean Platelet Volume 9.9 fL (9.4-12.3); Platelet Count 568 X10*3/uL (160-400); Red Blood Count 4.26 X10*6/uL (4.20-5.50); Red Cell Distribution Width 14.7 % (11.0-16.0); White Blood Count 11.9 X10*3/uL (4.8-10.8)
[2021-09-24 09:06] LABS: Anion Gap 18 (12-20); Blood Urea Nitrogen 8 mg/dL (9-16); Calcium 8.1 mg/dL (8.4-10.2); Carbon Dioxide 29 mmol/L (22-29); Chloride 94 mmol/L (96-108); Creatinine Clr Calc Pharmacy 112.1; Estimated Glomerular Filt Rate > 60; Glucose Random 139 mg/dL (60-115); Magnesium 2.2 mg/dL (1.6-2.6); Potassium 3.2 mmol/L (3.3-5.1); Sodium 138 mmol/L (135-145)
--- NOTE | 2021-09-24 11:12 | HO.ANESPROP2 ---
HPI - Anesthesia Eval Consult details Narrative: Right foot non-healing ulcer PMFSH Active Problems Active Problems: All Active Problems (Updated 09/22/21 @ 16:55 by Bev Salazar CNP) Opioid use disorder (Acute) Open wound of foot (Acute) Cellulitis (Acute) Leukocytosis (Acute) Osteomyelitis (Acute) Past Medical History Medical History Anxiety Diabetes No known health problems Substance abuse Family History Family history of problems with anesthesia: No Surgical History History of Problems with Anesthesia: No Social History Social History (Updated 09/22/21 @ 16:53 by Bev Salazar CNP) Household Members: Children Housing: Apartment Do you presently have visiting nurse or other home services: No Alcohol intake: never Patient Tobacco Use Status: Current everyday Tobacco user Tobacco use type: Cigarette Cigarette Packs Per Day: 1 Cigarettes Per Day: 20.0 Substance Use Type: Inhalants Substance Use Frequency: Occasionally Substance Use Frequency Other:: reporting use every few days Last Used Substance: Days (ago) Currently Displaying Signs/Symptoms of Drug Intoxication Withdrawal: No Any prior treatment program specific to substance use: Yes service: No Current occupational status: unemployed Meds Allergies Allergy/AdvReac Type Severity Reaction Status Date / Time prednisone [PREDNISONE] Allergy Unknown RASH Unverified 09/01/20 10:06 Active Medications: Current Medications Acetaminophen (Acetaminophen 325 Mg Tablet) 650 mg PO Q6H PRN PRN Reason: Pain, Mild (Pain Scale 1-3) Last Admin: 09/24/21 02:04 Dose: 650 mg Documented by: Alprazolam (Alprazolam 0.5 Mg Tablet) 2 mg PO BID [facility] Last Admin: 09/24/21 08:33 Dose: 2 mg Documented by: Amlodipine Besylate (Amlodipine Besylate 10 Mg Tablet) 10 mg PO DAILY [facility]; Protocol Last Admin: 09/24/21 08:34 Dose: 10 mg Documented by: Gabapentin (Gabapentin 400 Mg Capsule) 400 mg PO QID [facility] Last Admin: 09/24/21 08:48 Dose: Not Given Documented by: Heparin Sodium (Porcine) (Heparin Sodium,Porcine 5,000 Unit/Ml Vial) 5,000 unit SUBCUT Q12H [facility] Last Admin: 09/24/21 06:29 Dose: Not Given Documented by: Vancomycin HCl 1,250 mg/ (Sodium Chloride) 250 mls @ 166.667 mls/hr IV Q12H [facility] Last Admin: 09/24/21 08:38 Dose: 166.7 mls/hr Documented by: Piperacillin Sod/Tazobactam (Sod 4.5 gm/ Sodium Chloride) 100 mls @ 200 mls/hr IV Q6H [facility] Last Infusion: 09/24/21 07:27 Dose: Infused Documented by: Insulin Glargine (Insulin Glargine,Hum.Rec.Anlog 100 Unit/Ml 10 Ml Vial) 35 unit SUBCUT BEDTIME [facility] Last Admin: 09/23/21 21:31 Dose: 35 unit Documented by: Insulin Human Lispro (Insulin Lispro 100 Unit/Ml 3 Ml Vial) 0 unit SUBCUT QIDACHS [facility]; Protocol Last Admin: 09/24/21 07:49 Dose: Not Given Documented by: Morphine Sulfate (Morphine Sulfate 2 Mg/Ml Cartridge) 4 mg IVPUSH Q4H PRN; Protocol PRN Reason: Pain, Mild (Pain Scale 1-3) Last Admin: 09/24/21 08:32 Dose: 4 mg Documented by: Nicotine (Nicotine 21 Mg Patch.Td24) 21 mg TRANSDERMA DAILY [facility] Last Admin: 09/24/21 08:44 Dose: 21 mg Documented by: Ondansetron HCl (Ondansetron Hcl 4 Mg/2 Ml Vial) 4 mg IVPUSH Q8H PRN PRN Reason: Nausea and Vomiting Last Admin: 09/23/21 20:31 Dose: 4 mg Documented by: Pharmacy Consult (Consult Rx Perform Med Rec) 1 each MISCELLANE ONCE PRN PRN Reason: Consult order Pharmacy Consult (Consult Rx Vancomycin Dosing) 1 each MISCELLANE DAILY PRN PRN Reason: Consult order Sertraline HCl (Sertraline Hcl 100 Mg Tablet) 100 mg PO BID [facility] Last Admin: 09/24/21 08:48 Dose: Not Given Documented by: Sodium Chloride (0.9 % Sodium Chloride Flush 3 Ml Syringe) 3 ml IVFLUSH QSHIFT [facility] Last Admin: 09/24/21 08:33 Dose: 3 ml Documented by: Home Medications Medication Instructions Recorded Confirmed Last Taken Type alprazolam 2 mg tablet 1 mg PO DAILY PRN 09/21/21 09/21/21 Unknown History alprazolam 2 mg tablet 2 mg PO BID 09/21/21 09/21/21 Unknown History gabapentin 400 mg capsule 400 mg PO QID 09/21/21 09/21/21 Unknown History ibuprofen 800 mg tablet 1 tab PO TID 09/21/21 09/21/21 Unknown History insulin glargine 100 unit/mL (3 35 unit SUBCUT BEDTIME 09/21/21 09/21/21 Unknown History mL) subcutaneous pen (Lantus Solostar U-100 Insulin) sertraline 100 mg tablet 1 tab PO BID 09/21/21 09/21/21 Unknown History Exam Exam Date and Time: September 24, 2021 111 Height,Weight and Vital Signs: Height 5 ft 7 in Weight 75.75 kg Last Vital Signs Temp 98 F 09/24/21 07:07 Pulse 80 09/24/21 07:07 Resp 18 09/24/21 07:07 BP 155/75 H 09/24/21 10:56 Pulse Ox 92 09/24/21 07:07 Pertinent Lab Results Pertinent Lab Results: Laboratory Tests 09/21/21 09/21/21 09/21/21 14:36 14:36 14:36 WBC RBC Hgb Hct MCV MCH MCHC RDW Plt Count MPV Immature Gran % (Auto) Neut % (Auto) Lymph % (Auto) Crosby % (Auto) Eos % (Auto) Baso % (Auto) Lymph # (Auto) Crosby # (Auto) Eos # (Auto) Baso # (Auto) Abs Immat Gran (auto) Absolute Neuts (auto) Absolute Nucleated RBC Nucleated RBC % (auto) ESR 86 H PT 13.9 H INR 1.2 H Sodium 137 Potassium 3.3 Chloride 102 Carbon Dioxide 27 Anion Gap 11 L BUN 10 Creatinine 0.56 Estim Creat Clear Calc 126.1 Estimated GFR > 60 POC Glucose Random Glucose 156 H Estimat Average Glucose Hemoglobin A1c % Lactic Acid Calcium 7.7 L Magnesium 1.6 Total Bilirubin 0.3 Direct Bilirubin < 0.2 AST 10 ALT 6 Alkaline Phosphatase 98 Total Creatine Kinase 99 C-Reactive Protein 10.74 H Total Protein 6.0 L Albumin 2.5 L Urine Color Urine Appearance Urine pH Ur Specific [place] Urine Protein Urine Glucose (UA) Urine Ketones Urine Blood Urine Nitrite Ur Leukocyte Esterase Urine RBC Urine WBC Ur Squamous Epith Cells Urine Bacteria Vancomycin Trough Urine Opiates Screen Urine Fentanyl Screen Ur Barbiturates Screen Ur Phencyclidine Scrn Ur Amphetamines Screen U Benzodiazepines Scrn Urine Cocaine Screen U Marijuana (THC) Screen COVID-19 (EUSEBIO) COVID-19 Clin Com 09/21/21 09/21/21 09/21/21 14:36 14:36 14:37 WBC 18.1 H RBC 3.43 L Hgb 9.3 L Hct 28.4 L MCV 82.8 MCH 27.1 MCHC 32.7 RDW 15.0 Plt Count 511 H MPV 9.1 L Immature Gran % (Auto) 1.0 H Neut % (Auto) 82.7 H Lymph % (Auto) 11.1 L Crosby % (Auto) 4.9 Eos % (Auto) 0.1 Baso % (Auto) 0.2 Lymph # (Auto) 2.0 Crosby # (Auto) 0.9 Eos # (Auto) 0.0 Baso # (Auto) 0.0 Abs Immat Gran (auto) 0.18 H Absolute Neuts (auto) 15.0 H Absolute Nucleated RBC 0.000 Nucleated RBC % (auto) 0.0 ESR PT INR Sodium Potassium Chloride Carbon Dioxide Anion Gap BUN Creatinine Estim Creat Clear Calc Estimated GFR POC Glucose Random Glucose Estimat Average Glucose Hemoglobin A1c % Lactic Acid 0.8 Calcium Magnesium Total Bilirubin Direct Bilirubin AST ALT Alkaline Phosphatase Total Creatine Kinase C-Reactive Protein Total Protein Albumin Urine Color Urine Appearance Urine pH Ur Specific [place] Urine Protein Urine Glucose (UA) Urine Ketones Urine Blood Urine Nitrite Ur Leukocyte Esterase Urine RBC Urine WBC Ur Squamous Epith Cells Urine Bacteria Vancomycin Trough Urine Opiates Screen Urine Fentanyl Screen Ur Barbiturates Screen Ur Phencyclidine Scrn Ur Amphetamines Screen U Benzodiazepines Scrn Urine Cocaine Screen U Marijuana (THC) Screen COVID-19 (EUSEBIO) Negative COVID-19 Clin Com See Note 09/21/21 09/22/21 09/22/21 14:54 02:13 06:00 WBC RBC Hgb Hct MCV MCH MCHC RDW Plt Count MPV Immature Gran % (Auto) Neut % (Auto) Lymph % (Auto) Crosby % (Auto) Eos % (Auto) Baso % (Auto) Lymph # (Auto) Crosby # (Auto) Eos # (Auto) Baso # (Auto) Abs Immat Gran (auto) Absolute Neuts (auto) Absolute Nucleated RBC Nucleated RBC % (auto) ESR PT INR Sodium Potassium Chloride Carbon Dioxide Anion Gap BUN Creatinine Cancelled Estim Creat Clear Calc Cancelled Estimated GFR Cancelled POC Glucose Random Glucose Estimat Average Glucose Hemoglobin A1c % Lactic Acid Calcium Magnesium Total Bilirubin Direct Bilirubin AST ALT Alkaline Phosphatase Total Creatine Kinase C-Reactive Protein Total Protein Albumin Urine Color YELLOW Urine Appearance CLEAR Urine pH 6.0 Ur Specific [place] 1.025 Urine Protein TRACE Urine Glucose (UA) NEG Urine Ketones 5 Urine Blood TRACE Urine Nitrite NEG Ur Leukocyte Esterase NEG Urine RBC 1-4 Urine WBC 0-2 Ur Squamous Epith Cells 1+ Urine Bacteria NONE Vancomycin Trough Urine Opiates Screen POSITIVE H Urine Fentanyl Screen POSITIVE H Ur Barbiturates Screen Not Detected Ur Phencyclidine Scrn Not Detected Ur Amphetamines Screen Not Detected U Benzodiazepines Scrn Not Detected Urine Cocaine Screen Not Detected U Marijuana (THC) Screen Not Detected COVID-19 (EUSEBIO) COVID-19 Clin Com 09/22/21 09/22/21 09/22/21 06:00 06:00 06:00 WBC 15.7 H RBC 3.66 L Hgb 9.8 L Hct 29.7 L MCV 81.1 MCH 26.8 L MCHC 33.0 RDW 14.6 Plt Count 571 H MPV 9.2 L Immature Gran % (Auto) 1.1 H Neut % (Auto) 83.8 H Lymph % (Auto) 10.1 L Crosby % (Auto) 4.8 Eos % (Auto) 0.1 Baso % (Auto) 0.1 Lymph # (Auto) 1.6 Crosby # (Auto) 0.8 Eos # (Auto) 0.0 Baso # (Auto) 0.0 Abs Immat Gran (auto) 0.18 H Absolute Neuts (auto) 13.2 H Absolute Nucleated RBC 0.000 Nucleated RBC % (auto) 0.0 ESR PT INR Sodium 138 Potassium 3.0 L Chloride 97 Carbon Dioxide 30 H Anion Gap 14 BUN 7 L Creatinine 0.51 Estim Creat Clear Calc 138.6 Estimated GFR > 60 POC Glucose Random Glucose 67 Estimat Average Glucose Hemoglobin A1c % Lactic Acid Calcium 7.7 L Magnesium Total Bilirubin Direct Bilirubin AST ALT Alkaline Phosphatase Total Creatine Kinase C-Reactive Protein Total Protein Albumin Urine Color Urine Appearance Urine pH Ur Specific [place] Urine Protein Urine Glucose (UA) Urine Ketones Urine Blood Urine Nitrite Ur Leukocyte Esterase Urine RBC Urine WBC Ur Squamous Epith Cells Urine Bacteria Vancomycin Trough < 3.0 L Urine Opiates Screen Urine Fentanyl Screen Ur Barbiturates Screen Ur Phencyclidine Scrn Ur Amphetamines Screen U Benzodiazepines Scrn Urine Cocaine Screen U Marijuana (THC) Screen COVID-19 (EUSEBIO) COVID-19 Cross Current 09/22/21 09/22/21 09/22/21 06:00 13:50 16:07 WBC RBC Hgb Hct MCV MCH MCHC RDW Plt Count MPV Immature Gran % (Auto) Neut % (Auto) Lymph % (Auto) Crosby % (Auto) Eos % (Auto) Baso % (Auto) Lymph # (Auto) Crosby # (Auto) Eos # (Auto) Baso # (Auto) Abs Immat Gran (auto) Absolute Neuts (auto) Absolute Nucleated RBC Nucleated RBC % (auto) ESR PT INR Sodium Potassium Chloride Carbon Dioxide Anion Gap BUN Creatinine Estim Creat Clear Calc Estimated GFR POC Glucose 84 108 Random Glucose Estimat Average Glucose 200 Hemoglobin A1c % 8.6 Lactic Acid Calcium Magnesium Total Bilirubin Direct Bilirubin AST ALT Alkaline Phosphatase Total Creatine Kinase C-Reactive Protein Total Protein Albumin Urine Color Urine Appearance Urine pH Ur Specific [place] Urine Protein Urine Glucose (UA) Urine Ketones Urine Blood Urine Nitrite Ur Leukocyte Esterase Urine RBC Urine WBC Ur Squamous Epith Cells Urine Bacteria Vancomycin Trough Urine Opiates Screen Urine Fentanyl Screen Ur Barbiturates Screen Ur Phencyclidine Scrn Ur Amphetamines Screen U Benzodiazepines Scrn Urine Cocaine Screen U Marijuana (THC) Screen COVID-19 (EUSEBIO) COVID-19 Cross Current 09/22/21 09/23/21 09/23/21 20:05 05:47 05:47 WBC 13.6 H RBC 3.85 L Hgb 10.5 L Hct 31.1 L MCV 80.8 MCH 27.3 MCHC 33.8 RDW 14.5 Plt Count 569 H MPV 9.3 L Immature Gran % (Auto) Neut % (Auto) Lymph % (Auto) Crosby % (Auto) Eos % (Auto) Baso % (Auto) Lymph # (Auto) Crosby # (Auto) Eos # (Auto) Baso # (Auto) Abs Immat Gran (auto) Absolute Neuts (auto) Absolute Nucleated RBC 0.000 Nucleated RBC % (auto) 0.0 ESR PT INR Sodium Potassium Chloride Carbon Dioxide Anion Gap BUN Creatinine Estim Creat Clear Calc Estimated GFR POC Glucose 101 Random Glucose Estimat Average Glucose Hemoglobin A1c % Lactic Acid Calcium Magnesium Total Bilirubin Direct Bilirubin AST ALT Alkaline Phosphatase Total Creatine Kinase C-Reactive Protein Total Protein Albumin Urine Color Urine Appearance Urine pH Ur Specific [place] Urine Protein Urine Glucose (UA) Urine Ketones Urine Blood Urine Nitrite Ur Leukocyte Esterase Urine RBC Urine WBC Ur Squamous Epith Cells Urine Bacteria Vancomycin Trough 13.3 Urine Opiates Screen Urine Fentanyl Screen Ur Barbiturates Screen Ur Phencyclidine Scrn Ur Amphetamines Screen U Benzodiazepines Scrn Urine Cocaine Screen U Marijuana (THC) Screen COVID-19 (EUSEBIO) COVID-19 frintit Com 09/23/21 09/23/21 09/23/21 05:47 07:08 11:05 WBC RBC Hgb Hct MCV MCH MCHC RDW Plt Count MPV Immature Gran % (Auto) Neut % (Auto) Lymph % (Auto) Crosby % (Auto) Eos % (Auto) Baso % (Auto) Lymph # (Auto) Cros[place] # (Auto) Eos # (Auto) Baso # (Auto) Abs Immat Gran (auto) Absolute Neuts (auto) Absolute Nucleated RBC Nucleated RBC % (auto) ESR PT INR Sodium 136 Potassium 2.6 L Chloride 94 L Carbon Dioxide 32 H Anion Gap 13 BUN 7 L Creatinine 0.58 Estim Creat Clear Calc 121.8 Estimated GFR > 60 POC Glucose 141 H 183 H Random Glucose 144 H Estimat Average Glucose Hemoglobin A1c % Lactic Acid Calcium 7.6 L Magnesium 1.5 L Total Bilirubin Direct Bilirubin AST ALT Alkaline Phosphatase Total Creatine Kinase C-Reactive Protein Total Protein Albumin Urine Color Urine Appearance Urine pH Ur Specific [place] Urine Protein Urine Glucose (UA) Urine Ketones Urine Blood Urine Nitrite Ur Leukocyte Esterase Urine RBC Urine WBC Ur Squamous Epith Cells Urine Bacteria Vancomycin Trough Urine Opiates Screen Urine Fentanyl Screen Ur Barbiturates Screen Ur Phencyclidine Scrn Ur Amphetamines Screen U Benzodiazepines Scrn Urine Cocaine Screen U Marijuana (THC) Screen COVID-19 (EUSEBIO) COVID-19 frintit Com 09/23/21 09/23/21 09/23/21 12:12 16:14 21:05 WBC RBC Hgb Hct MCV MCH MCHC RDW Plt Count MPV Immature Gran % (Auto) Neut % (Auto) Lymph % (Auto) Crosby % (Auto) Eos % (Auto) Baso % (Auto) Lymph # (Auto) [place] # (Auto) Eos # (Auto) Baso # (Auto) Abs Immat Gran (auto) Absolute Neuts (auto) Absolute Nucleated RBC Nucleated RBC % (auto) ESR PT INR Sodium Potassium 3.5 D Chloride Carbon Dioxide Anion Gap BUN Creatinine Estim Creat Clear Calc Estimated GFR POC Glucose 172 H 180 H Random Glucose Estimat Average Glucose Hemoglobin A1c % Lactic Acid Calcium Magnesium Total Bilirubin Direct Bilirubin AST ALT Alkaline Phosphatase Total Creatine Kinase C-Reactive Protein Total Protein Albumin Urine Color Urine Appearance Urine pH Ur Specific [place] Urine Protein Urine Glucose (UA) Urine Ketones Urine Blood Urine Nitrite Ur Leukocyte Esterase Urine RBC Urine WBC Ur Squamous Epith Cells Urine Bacteria Vancomycin Trough Urine Opiates Screen Urine Fentanyl Screen Ur Barbiturates Screen Ur Phencyclidine Scrn Ur Amphetamines Screen U Benzodiazepines Scrn Urine Cocaine Screen U Marijuana (THC) Screen COVID-19 (EUSEBIO) COVID-19 Clin Com 09/24/21 09/24/21 09/24/21 07:06 07:56 07:56 WBC 11.9 H RBC 4.26 Hgb 11.3 L Hct 35.7 L MCV 83.8 MCH 26.5 L MCHC 31.7 RDW 14.7 Plt Count 568 H MPV 9.9 Immature Gran % (Auto) Neut % (Auto) Lymph % (Auto) Crosby % (Auto) Eos % (Auto) Baso % (Auto) Lymph # (Auto) [place] # (Auto) Eos # (Auto) Baso # (Auto) Abs Immat Gran (auto) Absolute Neuts (auto) Absolute Nucleated RBC 0.000 Nucleated RBC % (auto) 0.0 ESR PT INR Sodium 138 Potassium 3.2 L Chloride 94 L Carbon Dioxide 29 Anion Gap 18 BUN 8 L Creatinine 0.63 Estim Creat Clear Calc 112.1 Estimated GFR > 60 POC Glucose 160 H Random Glucose 139 H Estimat Average Glucose Hemoglobin A1c % Lactic Acid Calcium 8.1 L D Magnesium 2.2 Total Bilirubin Direct Bilirubin AST ALT Alkaline Phosphatase Total Creatine Kinase C-Reactive Protein Total Protein Albumin Urine Color Urine Appearance Urine pH Ur Specific [place] Urine Protein Urine Glucose (UA) Urine Ketones Urine Blood Urine Nitrite Ur Leukocyte Esterase Urine RBC Urine WBC Ur Squamous Epith Cells Urine Bacteria Vancomycin Trough Urine Opiates Screen Urine Fentanyl Screen Ur Barbiturates Screen Ur Phencyclidine Scrn Ur Amphetamines Screen U Benzodiazepines Scrn Urine Cocaine Screen U Marijuana (THC) Screen COVID-19 (EUSEBIO) COVID-19 Clin Com Airway Mallampati Class: II TM Dist: >3cm Neck ROM: Full Denture: Upper and Lower Heart: [id number] Lungs: cta b/l Assessment and Plan Final Anesthetic Review Family History of Problems with Anesthesia: No History of Problems with Anesthesia: No NPO: Yes ASA Class: III Final Preanesthetic Review: No Changes in Pt Med Stat, Meds/Allgs Chart Reviewed, Consent Obtained/Reviewed and Anes Risks/Benef Reviewed Patient Risk: Intermediate Procedure Risk: Intermediate Assessment/Block/Sedation in SS: Assess/Block/Sedation-SS Anesthetic Plan Anesthetic Plan: GA and Agree w/ Assess. and Plan Disposition: Standard PACU
[2021-09-24 11:28] LABS: Glucose, Whole Blood 130 mg/dL (60-115)
--- NOTE | 2021-09-24 11:36 | HO.PM.IMPN ---
Subjective Subjective Date of Service: 09/24/21 Interval History: seen and examined this morning nervous about planned procedure but otherwise feeling well no chest pain, sob, nausea or vomiting Review of Systems Review of Systems: Yes all other systems are reviewed and are negative Constitutional Constitutional: Denies chills and Denies fever(s) Cardiovascular Cardiovascular: Denies chest pain, Denies palpitations and Denies dyspnea Respiratory Respiratory: Denies dyspnea Endocrine Endocrine: Denies palpitations Physical Exam Vital Signs: Vital Signs: Last Vital Signs Temp 98.0 F 09/24/21 11:12 Pulse 84 09/24/21 11:12 Resp 20 09/24/21 11:12 BP 193/90 H 09/24/21 11:12 Pulse Ox 98 09/24/21 11:12 BMI result Body Mass Index 26.2 Const: General: alert, awake and anxious Nutritional Appearance: average body habitus Orientation/consciousness: patient oriented x3 Resp: Effort & Inspection: normal respiratory effort and able to speak in complete sentences Cardio: Rate: regular rate Heart sounds: S1 normal heart sound present GI: Inspection: No distended Palpation (GI): Soft to palpation and nontender Neuro: General: patient oriented x3 Extrem: Other: right foot and left toe wrapped in c/d/i bandage; no significant leg edema; left foot dry ulcer left great toe Objective Data Active Medications Acetaminophen (Acetaminophen 325 Mg Tablet) 650 mg PO Q6H PRN PRN Reason: Pain, Mild (Pain Scale 1-3) Last Admin: 09/24/21 02:04 Dose: 650 mg Documented by: FRANCISCA Alprazolam (Alprazolam 0.5 Mg Tablet) 2 mg PO BID [facility] Last Admin: 09/24/21 08:33 Dose: 2 mg Documented by: NIC Amlodipine Besylate (Amlodipine Besylate 10 Mg Tablet) 10 mg PO DAILY [facility]; Protocol Last Admin: 09/24/21 08:34 Dose: 10 mg Documented by: NIC Fentanyl (Fentanyl Citrate/Pf 100 Mcg/2 Ml Vial) 50 mcg IVPUSH Q5M PRN; Protocol PRN Reason: Pain, Moderate (Pain Scale 4-6 Gabapentin (Gabapentin 400 Mg Capsule) 400 mg PO QID [facility] Last Admin: 09/24/21 08:48 Dose: Not Given Documented by: NIC Non-Admin Reason: NPO Heparin Sodium (Porcine) (Heparin Sodium,Porcine 5,000 Unit/Ml Vial) 5,000 unit SUBCUT Q12H [facility] Last Admin: 09/24/21 06:29 Dose: Not Given Documented by: FRANCISCA Non-Admin Reason: surgery this morning Hydromorphone HCl (Hydromorphone Hcl 0.5 Mg/0.5 Ml Syringe) 0.5 mg IVPUSH Q5M PRN; Protocol PRN Reason: Pain, Severe (Pain Scale 7-10) Vancomycin HCl 1,250 mg/ (Sodium Chloride) 250 mls @ 166.667 mls/hr IV Q12H [facility] Last Admin: 09/24/21 08:38 Dose: 166.7 mls/hr Documented by: NIC Piperacillin Sod/Tazobactam (Sod 4.5 gm/ Sodium Chloride) 100 mls @ 200 mls/hr IV Q6H [facility] Last Infusion: 09/24/21 07:27 Dose: 0 mls/hr Documented by: NIC Promethazine HCl 6.25 mg/ (Sodium Chloride) 50.25 mls @ 201 mls/hr IV ONCE PRN PRN Reason: Nausea and Vomiting Insulin Glargine (Insulin Glargine,Hum.Rec.Anlog 100 Unit/Ml 10 Ml Vial) 35 unit SUBCUT BEDTIME [facility] Last Admin: 09/23/21 21:31 Dose: 35 unit Documented by: FRANCISCA Insulin Human Lispro (Insulin Lispro 100 Unit/Ml 3 Ml Vial) 0 unit SUBCUT QIDACHS [facility]; Protocol Last Admin: 09/24/21 07:49 Dose: Not Given Documented by: NIC Non-Admin Reason: NPO Morphine Sulfate (Morphine Sulfate 2 Mg/Ml Cartridge) 4 mg IVPUSH Q4H PRN; Protocol PRN Reason: Pain, Mild (Pain Scale 1-3) Last Admin: 09/24/21 08:32 Dose: 4 mg Documented by: NIC Nicotine (Nicotine 21 Mg Patch.Td24) 21 mg TRANSDERMA DAILY [facility] Last Admin: 09/24/21 08:44 Dose: 21 mg Documented by: NIC Ondansetron HCl (Ondansetron Hcl 4 Mg/2 Ml Vial) 4 mg IVPUSH Q8H PRN PRN Reason: Nausea and Vomiting Last Admin: 09/23/21 20:31 Dose: 4 mg Documented by: FRANCISCA Ondansetron HCl (Ondansetron Hcl 4 Mg/2 Ml Vial) 4 mg IVPUSH ONCE PRN PRN Reason: Nausea and Vomiting Oxycodone HCl (Oxycodone Hcl Immed Release 5 Mg Tablet) 10 mg PO ONCE PRN PRN Reason: Pain, Severe (Pain Scale 7-10) Pharmacy Consult (Consult Rx Perform Med Rec) 1 each MISCELLANE ONCE PRN PRN Reason: Consult order Pharmacy Consult (Consult Rx Vancomycin Dosing) 1 each MISCELLANE DAILY PRN PRN Reason: Consult order Sertraline HCl (Sertraline Hcl 100 Mg Tablet) 100 mg PO BID [facility] Last Admin: 09/24/21 08:48 Dose: Not Given Documented by: NIC Non-Admin Reason: Patient Refused Sodium Chloride (0.9 % Sodium Chloride Flush 3 Ml Syringe) 3 ml IVFLUSH QSHIFT [facility] Last Admin: 09/24/21 08:33 Dose: 3 ml Documented by: NIC Labs CBC & Chem 7: 09/24/21 07:56 09/24/21 07:56 Labs: Laboratory Results - last 24 hr 09/23/21 09/23/21 09/24/21 16:14 21:05 07:06 MCV MCH MCHC RDW Plt Count MPV Absolute Nucleated RBC Nucleated RBC % (auto) Anion Gap Estim Creat Clear Calc Estimated GFR POC Glucose 172 H 180 H 160 H Random Glucose Calcium Magnesium 09/24/21 09/24/21 09/24/21 07:56 07:56 11:22 MCV 83.8 MCH 26.5 L MCHC 31.7 RDW 14.7 Plt Count 568 H MPV 9.9 Absolute Nucleated RBC 0.000 Nucleated RBC % (auto) 0.0 Anion Gap 18 Estim Creat Clear Calc 112.1 Estimated GFR > 60 POC Glucose 130 H Random Glucose 139 H Calcium 8.1 L D Magnesium 2.2 Microbiology Microbiology Results: Microbiology 09/21/21 14:54 Blood Culture - Final Blood - Venous Methicillin Res Staph Aureus 09/21/21 14:54 Blood Culture - Preliminary Blood - Venous No growth after 48 hours. Assessment and Plan (1) MRSA bacteremia: Status: Acute (2) Osteomyelitis: Status: Acute Plan This is a 51 yo F with a PMH of DM, OUD (snorts heroin), anxiety, who presents to the hospital with R foot pain. Her presentation is consistent with sepsis secondary to osteomyelitis. Sepsis secondary to osteomyelitis/septic arthritis of the R 1st TMP joint, Osteo the L Great Toe -- suspected due to DM Sepsis improving Continue broad spec IV anbitioics with IV vanco/zosyn Gen Surg input appreciated - agreeable to right foot amputation; L foot - likely to require 6 weeks IV antibiotics ID consult pending MRSA bacteremia likely related to osteo/foot infection as above 1/2 BCx growing MRSA, repeat blood cultures pending continue IV vancomycin ID consult pending HTN bp still elevated not on meds at baseline increase dose of norvasc to 10 mg if no improvement may need to add lisinopril Hypokalemia/hypomagnesemia mag improved K 3.2 replace and follow Diarrhea improved cdif pending DM HbA1c 8.6 continue lantus, sliding scale diabetic diet Opiate use disorder see by Addiction medicine methadone not clinically appropriate at this time, will consider resuming suboxone tobacco dependence smoking cessation advised NRT Mood Xanax, zoloft Falls likely due to weakness related to foot issues eventual PT eval she has indicated that she would not want to go to rehab Full Code DVT pptx, subcut. heparin Attending: dr. garcia Quality Stroke Does the patient have a stroke diagnosis?: No VTE Prior VTE?: No VTE Risk Level:: Medical - moderate - high VTE Device Contraindication: Treatment Not Indicated VTE Drug Contraindication: N/A - Med Ordered
--- NOTE | 2021-09-24 11:37 | MHC.CM.PN ---
EMR REVIEWED, PLAN FOR R FOOT METATARSAL AMP TODAY AT 1440, PER HOSPITALIST PT HAS OSTEO IN LEFT FOOT WELL AND WILL NEED IV ABX X 6WKS WELL, D/T PT'S SA HX AND POSITIVE DRUG SCREEN REFERRALS WILL BE PLACED TO [facility], CM WILL CONT TO FOLLOW D/C NEEDS.
--- NOTE | 2021-09-24 11:45 | HO.ANESPROP2 ---
HPI - Anesthesia Eval Consult details Narrative: 51 yo female patient for Right Transmetatarsal amputation PMFSH Active Problems Active Problems: All Active Problems (Updated 09/22/21 @ 16:55 by Bev Salazar CNP) Opioid use disorder (Acute) Open wound of foot (Acute) Cellulitis (Acute) Leukocytosis (Acute) Osteomyelitis (Acute) Past Medical History Medical History Anxiety Diabetes No known health problems Substance abuse Family History Family history of problems with anesthesia: No Surgical History History of Problems with Anesthesia: No Social History Social History (Updated 09/22/21 @ 16:53 by Bev Salazar CNP) Household Members: Children Housing: Apartment Do you presently have visiting nurse or other home services: No Alcohol intake: never Patient Tobacco Use Status: Current everyday Tobacco user Tobacco use type: Cigarette Cigarette Packs Per Day: 1 Cigarettes Per Day: 20.0 Substance Use Type: Inhalants Substance Use Frequency: Occasionally Substance Use Frequency Other:: reporting use every few days Last Used Substance: Days (ago) Currently Displaying Signs/Symptoms of Drug Intoxication Withdrawal: No Any prior treatment program specific to substance use: Yes service: No Current occupational status: unemployed Meds Allergies Allergy/AdvReac Type Severity Reaction Status Date / Time prednisone [PREDNISONE] Allergy Unknown RASH Verified 09/24/21 11:47 Active Medications: Current Medications Acetaminophen (Acetaminophen 325 Mg Tablet) 650 mg PO Q6H PRN PRN Reason: Pain, Mild (Pain Scale 1-3) Last Admin: 09/24/21 02:04 Dose: 650 mg Documented by: Alprazolam (Alprazolam 0.5 Mg Tablet) 2 mg PO BID [facility] Last Admin: 09/24/21 08:33 Dose: 2 mg Documented by: Amlodipine Besylate (Amlodipine Besylate 10 Mg Tablet) 10 mg PO DAILY [facility]; Protocol Last Admin: 09/24/21 08:34 Dose: 10 mg Documented by: Fentanyl (Fentanyl Citrate/Pf 100 Mcg/2 Ml Vial) 50 mcg IVPUSH Q5M PRN; Protocol PRN Reason: Pain, Moderate (Pain Scale 4-6 Gabapentin (Gabapentin 400 Mg Capsule) 400 mg PO QID [facility] Last Admin: 09/24/21 08:48 Dose: Not Given Documented by: Heparin Sodium (Porcine) (Heparin Sodium,Porcine 5,000 Unit/Ml Vial) 5,000 unit SUBCUT Q12H [facility] Last Admin: 09/24/21 06:29 Dose: Not Given Documented by: Hydromorphone HCl (Hydromorphone Hcl 0.5 Mg/0.5 Ml Syringe) 0.5 mg IVPUSH Q5M PRN; Protocol PRN Reason: Pain, Severe (Pain Scale 7-10) Vancomycin HCl 1,250 mg/ (Sodium Chloride) 250 mls @ 166.667 mls/hr IV Q12H [facility] Last Admin: 09/24/21 08:38 Dose: 166.7 mls/hr Documented by: Piperacillin Sod/Tazobactam (Sod 4.5 gm/ Sodium Chloride) 100 mls @ 200 mls/hr IV Q6H [facility] Last Infusion: 09/24/21 07:27 Dose: Infused Documented by: Promethazine HCl 6.25 mg/ (Sodium Chloride) 50.25 mls @ 201 mls/hr IV ONCE PRN PRN Reason: Nausea and Vomiting Insulin Glargine (Insulin Glargine,Hum.Rec.Anlog 100 Unit/Ml 10 Ml Vial) 35 unit SUBCUT BEDTIME [facility] Last Admin: 09/23/21 21:31 Dose: 35 unit Documented by: Insulin Human Lispro (Insulin Lispro 100 Unit/Ml 3 Ml Vial) 0 unit SUBCUT QIDACHS [facility]; Protocol Last Admin: 09/24/21 07:49 Dose: Not Given Documented by: Morphine Sulfate (Morphine Sulfate 2 Mg/Ml Cartridge) 4 mg IVPUSH Q4H PRN; Protocol PRN Reason: Pain, Mild (Pain Scale 1-3) Last Admin: 09/24/21 08:32 Dose: 4 mg Documented by: Nicotine (Nicotine 21 Mg Patch.Td24) 21 mg TRANSDERMA DAILY [facility] Last Admin: 09/24/21 08:44 Dose: 21 mg Documented by: Ondansetron HCl (Ondansetron Hcl 4 Mg/2 Ml Vial) 4 mg IVPUSH Q8H PRN PRN Reason: Nausea and Vomiting Last Admin: 09/23/21 20:31 Dose: 4 mg Documented by: Ondansetron HCl (Ondansetron Hcl 4 Mg/2 Ml Vial) 4 mg IVPUSH ONCE PRN PRN Reason: Nausea and Vomiting Oxycodone HCl (Oxycodone Hcl Immed Release 5 Mg Tablet) 10 mg PO ONCE PRN PRN Reason: Pain, Severe (Pain Scale 7-10) Pharmacy Consult (Consult Rx Perform Med Rec) 1 each MISCELLANE ONCE PRN PRN Reason: Consult order Pharmacy Consult (Consult Rx Vancomycin Dosing) 1 each MISCELLANE DAILY PRN PRN Reason: Consult order Sertraline HCl (Sertraline Hcl 100 Mg Tablet) 100 mg PO BID [facility] [place] Last Admin: 09/24/21 08:48 Dose: Not Given Documented by: Sodium Chloride (0.9 % Sodium Chloride Flush 3 Ml Syringe) 3 ml IVFLUSH QSHIFT [facility] Last Admin: 09/24/21 08:33 Dose: 3 ml Documented by: Home Medications Medication Instructions Recorded Confirmed Last Taken Type alprazolam 2 mg tablet 1 mg PO DAILY PRN 09/21/21 09/21/21 Unknown History alprazolam 2 mg tablet 2 mg PO BID 09/21/21 09/21/21 Unknown History gabapentin 400 mg capsule 400 mg PO QID 09/21/21 09/21/21 Unknown History ibuprofen 800 mg tablet 1 tab PO TID 09/21/21 09/21/21 Unknown History insulin glargine 100 unit/mL (3 35 unit SUBCUT BEDTIME 09/21/21 09/21/21 Unknown History mL) subcutaneous pen (Lantus Solostar U-100 Insulin) sertraline 100 mg tablet 1 tab PO BID 09/21/21 09/21/21 Unknown History Exam Exam Date and Time: September 24, 2021 1145 Height,Weight and Vital Signs: Height 5 ft 7 in Weight 75.75 kg Last Vital Signs Temp 98.0 F 09/24/21 11:12 Pulse 84 09/24/21 11:12 Resp 20 09/24/21 11:12 BP 193/90 H 09/24/21 11:12 Pulse Ox 98 09/24/21 11:12 Pertinent Lab Results Pertinent Lab Results: Laboratory Tests 09/21/21 09/21/21 09/21/21 14:36 14:36 14:36 WBC RBC Hgb Hct MCV MCH MCHC RDW Plt Count MPV Immature Gran % (Auto) Neut % (Auto) Lymph % (Auto) [place] % (Auto) Eos % (Auto) Baso % (Auto) Lymph # (Auto) [place] # (Auto) Eos # (Auto) Baso # (Auto) Abs Immat Gran (auto) Absolute Neuts (auto) Absolute Nucleated RBC Nucleated RBC % (auto) ESR 86 H PT 13.9 H INR 1.2 H Sodium 137 Potassium 3.3 Chloride 102 Carbon Dioxide 27 Anion Gap 11 L BUN 10 Creatinine 0.56 Estim Creat Clear Calc 126.1 Estimated GFR > 60 POC Glucose Random Glucose 156 H Estimat Average Glucose Hemoglobin A1c % Lactic Acid Calcium 7.7 L Magnesium 1.6 Total Bilirubin 0.3 Direct Bilirubin < 0.2 AST 10 ALT 6 Alkaline Phosphatase 98 Total Creatine Kinase 99 C-Reactive Protein 10.74 H Total Protein 6.0 L Albumin 2.5 L Urine Color Urine Appearance Urine pH Ur Specific [place] Urine Protein Urine Glucose (UA) Urine Ketones Urine Blood Urine Nitrite Ur Leukocyte Esterase Urine RBC Urine WBC Ur Squamous Epith Cells Urine Bacteria Vancomycin Trough Urine Opiates Screen Urine Fentanyl Screen Ur Barbiturates Screen Ur Phencyclidine Scrn Ur Amphetamines Screen U Benzodiazepines Scrn Urine Cocaine Screen U Marijuana (THC) Screen COVID-19 ([employer]) COVID-19 Clin Com 09/21/21 09/21/21 09/21/21 14:36 14:36 14:37 WBC 18.1 H RBC 3.43 L Hgb 9.3 L Hct 28.4 L MCV 82.8 MCH 27.1 MCHC 32.7 RDW 15.0 Plt Count 511 H MPV 9.1 L Immature Gran % (Auto) 1.0 H Neut % (Auto) 82.7 H Lymph % (Auto) 11.1 L [place] % (Auto) 4.9 Eos % (Auto) 0.1 Baso % (Auto) 0.2 Lymph # (Auto) 2.0 [place] # (Auto) 0.9 Eos # (Auto) 0.0 Baso # (Auto) 0.0 Abs Immat Gran (auto) 0.18 H Absolute Neuts (auto) 15.0 H Absolute Nucleated RBC 0.000 Nucleated RBC % (auto) 0.0 ESR PT INR Sodium Potassium Chloride Carbon Dioxide Anion Gap BUN Creatinine Estim Creat Clear Calc Estimated GFR POC Glucose Random Glucose Estimat Average Glucose Hemoglobin A1c % Lactic Acid 0.8 Calcium Magnesium Total Bilirubin Direct Bilirubin AST ALT Alkaline Phosphatase Total Creatine Kinase C-Reactive Protein Total Protein Albumin Urine Color Urine Appearance Urine pH Ur Specific [place] Urine Protein Urine Glucose (UA) Urine Ketones Urine Blood Urine Nitrite Ur Leukocyte Esterase Urine RBC Urine WBC Ur Squamous Epith Cells Urine Bacteria Vancomycin Trough Urine Opiates Screen Urine Fentanyl Screen Ur Barbiturates Screen Ur Phencyclidine Scrn Ur Amphetamines Screen U Benzodiazepines Scrn Urine Cocaine Screen U Marijuana (THC) Screen COVID-19 (EUSEBIO) Negative COVID-19 Clin Com See Note 09/21/21 09/22/21 09/22/21 14:54 02:13 06:00 WBC RBC Hgb Hct MCV MCH MCHC RDW Plt Count MPV Immature Gran % (Auto) Neut % (Auto) Lymph % (Auto) [place] % (Auto) Eos % (Auto) Baso % (Auto) Lymph # (Auto) [place] # (Auto) Eos # (Auto) Baso # (Auto) Abs Immat Gran (auto) Absolute Neuts (auto) Absolute Nucleated RBC Nucleated RBC % (auto) ESR PT INR Sodium Potassium Chloride Carbon Dioxide Anion Gap BUN Creatinine Cancelled Estim Creat Clear Calc Cancelled Estimated GFR Cancelled POC Glucose Random Glucose Estimat Average Glucose Hemoglobin A1c % Lactic Acid Calcium Magnesium Total Bilirubin Direct Bilirubin AST ALT Alkaline Phosphatase Total Creatine Kinase C-Reactive Protein Total Protein Albumin Urine Color YELLOW Urine Appearance CLEAR Urine pH 6.0 Ur Specific [place] 1.025 Urine Protein TRACE Urine Glucose (UA) NEG Urine Ketones 5 Urine Blood TRACE Urine Nitrite NEG Ur Leukocyte Esterase NEG Urine RBC 1-4 Urine WBC 0-2 Ur Squamous Epith Cells 1+ Urine Bacteria NONE Vancomycin Trough Urine Opiates Screen POSITIVE H Urine Fentanyl Screen POSITIVE H Ur Barbiturates Screen Not Detected Ur Phencyclidine Scrn Not Detected Ur Amphetamines Screen Not Detected U Benzodiazepines Scrn Not Detected Urine Cocaine Screen Not Detected U Marijuana (THC) Screen Not Detected COVID-19 (EUSEBIO) COVID-19 Clin Com 09/22/21 09/22/21 09/22/21 06:00 06:00 06:00 WBC 15.7 H RBC 3.66 L Hgb 9.8 L Hct 29.7 L MCV 81.1 MCH 26.8 L MCHC 33.0 RDW 14.6 Plt Count 571 H MPV 9.2 L Immature Gran % (Auto) 1.1 H Neut % (Auto) 83.8 H Lymph % (Auto) 10.1 L [place] % (Auto) 4.8 Eos % (Auto) 0.1 Baso % (Auto) 0.1 Lymph # (Auto) 1.6 [place] # (Auto) 0.8 Eos # (Auto) 0.0 Baso # (Auto) 0.0 Abs Immat Gran (auto) 0.18 H Absolute Neuts (auto) 13.2 H Absolute Nucleated RBC 0.000 Nucleated RBC % (auto) 0.0 ESR PT INR Sodium 138 Potassium 3.0 L Chloride 97 Carbon Dioxide 30 H Anion Gap 14 BUN 7 L Creatinine 0.51 Estim Creat Clear Calc 138.6 Estimated GFR > 60 POC Glucose Random Glucose 67 Estimat Average Glucose Hemoglobin A1c % Lactic Acid Calcium 7.7 L Magnesium Total Bilirubin Direct Bilirubin AST ALT Alkaline Phosphatase Total Creatine Kinase C-Reactive Protein Total Protein Albumin Urine Color Urine Appearance Urine pH Ur Specific [place] Urine Protein Urine Glucose (UA) Urine Ketones Urine Blood Urine Nitrite Ur Leukocyte Esterase Urine RBC Urine WBC Ur Squamous Epith Cells Urine Bacteria Vancomycin Trough < 3.0 L Urine Opiates Screen Urine Fentanyl Screen Ur Barbiturates Screen Ur Phencyclidine Scrn Ur Amphetamines Screen U Benzodiazepines Scrn Urine Cocaine Screen U Marijuana (THC) Screen COVID-19 ([employer]) COVID-19 [employer] 09/22/21 09/22/21 09/22/21 06:00 13:50 16:07 WBC RBC Hgb Hct MCV MCH MCHC RDW Plt Count MPV Immature Gran % (Auto) Neut % (Auto) Lymph % (Auto) [place] % (Auto) Eos % (Auto) Baso % (Auto) Lymph # (Auto) [place] # (Auto) Eos # (Auto) Baso # (Auto) Abs Immat Gran (auto) Absolute Neuts (auto) Absolute Nucleated RBC Nucleated RBC % (auto) ESR PT INR Sodium Potassium Chloride Carbon Dioxide Anion Gap BUN Creatinine Estim Creat Clear Calc Estimated GFR POC Glucose 84 108 Random Glucose Estimat Average Glucose 200 Hemoglobin A1c % 8.6 Lactic Acid Calcium Magnesium Total Bilirubin Direct Bilirubin AST ALT Alkaline Phosphatase Total Creatine Kinase C-Reactive Protein Total Protein Albumin Urine Color Urine Appearance Urine pH Ur Specific [place] Urine Protein Urine Glucose (UA) Urine Ketones Urine Blood Urine Nitrite Ur Leukocyte Esterase Urine RBC Urine WBC Ur Squamous Epith Cells Urine Bacteria Vancomycin Trough Urine Opiates Screen Urine Fentanyl Screen Ur Barbiturates Screen Ur Phencyclidine Scrn Ur Amphetamines Screen U Benzodiazepines Scrn Urine Cocaine Screen U Marijuana (THC) Screen COVID-19 ([employer]) COVID-19 [employer] 09/22/21 09/23/21 09/23/21 20:05 05:47 05:47 WBC 13.6 H RBC 3.85 L Hgb 10.5 L Hct 31.1 L MCV 80.8 MCH 27.3 MCHC 33.8 RDW 14.5 Plt Count 569 H MPV 9.3 L Immature Gran % (Auto) Neut % (Auto) Lymph % (Auto) [place] % (Auto) Eos % (Auto) Baso % (Auto) Lymph # (Auto) [place] # (Auto) Eos # (Auto) Baso # (Auto) Abs Immat Gran (auto) Absolute Neuts (auto) Absolute Nucleated RBC 0.000 Nucleated RBC % (auto) 0.0 ESR PT INR Sodium Potassium Chloride Carbon Dioxide Anion Gap BUN Creatinine Estim Creat Clear Calc Estimated GFR POC Glucose 101 Random Glucose Estimat Average Glucose Hemoglobin A1c % Lactic Acid Calcium Magnesium Total Bilirubin Direct Bilirubin AST ALT Alkaline Phosphatase Total Creatine Kinase C-Reactive Protein Total Protein Albumin Urine Color Urine Appearance Urine pH Ur Specific [place] Urine Protein Urine Glucose (UA) Urine Ketones Urine Blood Urine Nitrite Ur Leukocyte Esterase Urine RBC Urine WBC Ur Squamous Epith Cells Urine Bacteria Vancomycin Trough 13.3 Urine Opiates Screen Urine Fentanyl Screen Ur Barbiturates Screen Ur Phencyclidine Scrn Ur Amphetamines Screen U Benzodiazepines Scrn Urine Cocaine Screen U Marijuana (THC) Screen COVID-19 ([facility]) COVID-19 Clin Com 09/23/21 09/23/21 09/23/21 05:47 07:08 11:05 WBC RBC Hgb Hct MCV MCH MCHC RDW Plt Count MPV Immature Gran % (Auto) Neut % (Auto) Lymph % (Auto) [place] % (Auto) Eos % (Auto) Baso % (Auto) Lymph # (Auto) [place] # (Auto) Eos # (Auto) Baso # (Auto) Abs Immat Gran (auto) Absolute Neuts (auto) Absolute Nucleated RBC Nucleated RBC % (auto) ESR PT INR Sodium 136 Potassium 2.6 L Chloride 94 L Carbon Dioxide 32 H Anion Gap 13 BUN 7 L Creatinine 0.58 Estim Creat Clear Calc 121.8 Estimated GFR > 60 POC Glucose 141 H 183 H Random Glucose 144 H Estimat Average Glucose Hemoglobin A1c % Lactic Acid Calcium 7.6 L Magnesium 1.5 L Total Bilirubin Direct Bilirubin AST ALT Alkaline Phosphatase Total Creatine Kinase C-Reactive Protein Total Protein Albumin Urine Color Urine Appearance Urine pH Ur Specific [place] Urine Protein Urine Glucose (UA) Urine Ketones Urine Blood Urine Nitrite Ur Leukocyte Esterase Urine RBC Urine WBC Ur Squamous Epith Cells Urine Bacteria Vancomycin Trough Urine Opiates Screen Urine Fentanyl Screen Ur Barbiturates Screen Ur Phencyclidine Scrn Ur Amphetamines Screen U Benzodiazepines Scrn Urine Cocaine Screen U Marijuana (THC) Screen COVID-19 ([employer]) COVID-19 [employer] Com 09/23/21 09/23/21 09/23/21 12:12 16:14 21:05 WBC RBC Hgb Hct MCV MCH MCHC RDW Plt Count MPV Immature Gran % (Auto) Neut % (Auto) Lymph % (Auto) [place] % (Auto) Eos % (Auto) Baso % (Auto) Lymph # (Auto) [place] # (Auto) Eos # (Auto) Baso # (Auto) Abs Immat Gran (auto) Absolute Neuts (auto) Absolute Nucleated RBC Nucleated RBC % (auto) ESR PT INR Sodium Potassium 3.5 D Chloride Carbon Dioxide Anion Gap BUN Creatinine Estim Creat Clear Calc Estimated GFR POC Glucose 172 H 180 H Random Glucose Estimat Average Glucose Hemoglobin A1c % Lactic Acid Calcium Magnesium Total Bilirubin Direct Bilirubin AST ALT Alkaline Phosphatase Total Creatine Kinase C-Reactive Protein Total Protein Albumin Urine Color Urine Appearance Urine pH Ur Specific [place] Urine Protein Urine Glucose (UA) Urine Ketones Urine Blood Urine Nitrite Ur Leukocyte Esterase Urine RBC Urine WBC Ur Squamous Epith Cells Urine Bacteria Vancomycin Trough Urine Opiates Screen Urine Fentanyl Screen Ur Barbiturates Screen Ur Phencyclidine Scrn Ur Amphetamines Screen U Benzodiazepines Scrn Urine Cocaine Screen U Marijuana (THC) Screen COVID-19 ([employer]) COVID-19 [employer] 09/24/21 09/24/21 09/24/21 07:06 07:56 07:56 WBC 11.9 H RBC 4.26 Hgb 11.3 L Hct 35.7 L MCV 83.8 MCH 26.5 L MCHC 31.7 RDW 14.7 Plt Count 568 H MPV 9.9 Immature Gran % (Auto) Neut % (Auto) Lymph % (Auto) [place] % (Auto) Eos % (Auto) Baso % (Auto) Lymph # (Auto) [place] # (Auto) Eos # (Auto) Baso # (Auto) Abs Immat Gran (auto) Absolute Neuts (auto) Absolute Nucleated RBC 0.000 Nucleated RBC % (auto) 0.0 ESR PT INR Sodium 138 Potassium 3.2 L Chloride 94 L Carbon Dioxide 29 Anion Gap 18 BUN 8 L Creatinine 0.63 Estim Creat Clear Calc 112.1 Estimated GFR > 60 POC Glucose 160 H Random Glucose 139 H Estimat Average Glucose Hemoglobin A1c % Lactic Acid Calcium 8.1 L D Magnesium 2.2 Total Bilirubin Direct Bilirubin AST ALT Alkaline Phosphatase Total Creatine Kinase C-Reactive Protein Total Protein Albumin Urine Color Urine Appearance Urine pH Ur Specific [place] Urine Protein Urine Glucose (UA) Urine Ketones Urine Blood Urine Nitrite Ur Leukocyte Esterase Urine RBC Urine WBC Ur Squamous Epith Cells Urine Bacteria Vancomycin Trough Urine Opiates Screen Urine Fentanyl Screen Ur Barbiturates Screen Ur Phencyclidine Scrn Ur Amphetamines Screen U Benzodiazepines Scrn Urine Cocaine Screen U Marijuana (THC) Screen COVID-19 ([employer]) COVID-19 [employer] Com 09/24/21 11:22 WBC RBC Hgb Hct MCV MCH MCHC RDW Plt Count MPV Immature Gran % (Auto) Neut % (Auto) Lymph % (Auto) [place] % (Auto) Eos % (Auto) Baso % (Auto) Lymph # (Auto) [place] # (Auto) Eos # (Auto) Baso # (Auto) Abs Immat Gran (auto) Absolute Neuts (auto) Absolute Nucleated RBC Nucleated RBC % (auto) ESR PT INR Sodium Potassium Chloride Carbon Dioxide Anion Gap BUN Creatinine Estim Creat Clear Calc Estimated GFR POC Glucose 130 H Random Glucose Estimat Average Glucose Hemoglobin A1c % Lactic Acid Calcium Magnesium Total Bilirubin Direct Bilirubin AST ALT Alkaline Phosphatase Total Creatine Kinase C-Reactive Protein Total Protein Albumin Urine Color Urine Appearance Urine pH Ur Specific [place] Urine Protein Urine Glucose (UA) Urine Ketones Urine Blood Urine Nitrite Ur Leukocyte Esterase Urine RBC Urine WBC Ur Squamous Epith Cells Urine Bacteria Vancomycin Trough Urine Opiates Screen Urine Fentanyl Screen Ur Barbiturates Screen Ur Phencyclidine Scrn Ur Amphetamines Screen U Benzodiazepines Scrn Urine Cocaine Screen U Marijuana (THC) Screen COVID-19 (EUSEBIO) COVID-19 Clin Com Assessment and Plan Final Anesthetic Review Family History of Problems with Anesthesia: No History of Problems with Anesthesia: No
--- NOTE | 2021-09-24 11:53 | PM.EVENT ---
Event Note Date of Service: 09/24/21 Event Note: procedure reviewed with pt plan is transmetatarsal amputation of Right foot for extensive bony destruction of 1st and 2nd toes with osteomyelitis; 3rd toe already previously amputated explained to her the technique of procedure reviewed risks, benefits and alternatives she has given consent Left big toe also with findings suggestive of osteomyelitis on xray she does not want Toe amp of left big toe at this time - she wants to save this as much as possible
--- NOTE | 2021-09-24 13:33 | W.PM.OPN ---
Operative Note Operative Note Date of Service: 09/24/21 Narrative: Preop diagnosis: Osteomyelitis with extensive bony destruction 1st and 2nd metatarsal head, right foot Postop diagnosis: The same Procedure: Transmetatarsal amputation, right foot Surgeon: Kirill Muhammad MD The patient is a 51-year-old female, with known history of colitis in the past, with a previous amputation of the 3rd toe, now admitted because of osteomyelitis of the 1st and 2nd toes on the right, with extensive bony destruction. He she also has a draining ulcer on the metatarsal head on this area. She also had significant drainage of an ulcer laterally near the 5th metatarsal . She understood the option of IV antibiotic treatment versus transmetatarsal amputation. She understood that with the extensive bony destruction, it was unlikely for the osteomyelitis to resolved so she agreed to proceed with transmetatarsal amputation. She understood the technique of the procedure as well as the risks, benefits, and alternatives She also had osteomyelitis of the left big toe but she wanted this stated for now and wanted to proceed with IV antibiotic therapy for this toe She was brought to the operating room. She was placed supine under laryngeal mask airway. The right foot was prepped and draped in the usual sterile fashion. Surgical time-out was done. The patient received cefazolin 2 g IV preoperatively I infiltrated the planned line of incision with lidocaine 1%. This planned line of incision was earlier marked, with a transverse incision dorsally, as well as on the plantar aspect which was more distal than the dorsal level to allow for a posterior flap This was made using blade 15. This was carried down with electrocautery through the full-thickness of the skin. We then divided through the soft tissue of the foot at the level of the mid metatarsal using electrocautery as well as Santiago scissors. The controlled bleeding areas on both the dorsal and the plantar aspect with clamping and cauterization We first work on the 1st metatarsal by dividing the soft tissue surrounding this until was carefully and a well-defined. I used the periosteal elevator to further define this entire metatarsal and used a bone cutter to divide this at the level of the mid metatarsal area I divided the of the soft tissue surrounding the 2nd metatarsal and expose this as well in the same manner as the 1st big toe. The 2nd metatarsal was cut as well with the bone cutter. We continued to divide soft tissue until we reached the 3rd metatarsal and divided this as well in the same fashion. We continued with this manner on the 4th metatarsal as the 5th metatarsal . We then proceeded to smooth the divided bones with your as well as with the bone file. We undermined both plantar and dorsal flaps to allow closure without significant tension. Once all the bone edges appeared to be smooth enough, I proceeded to irrigate. We observed for hemostasis. I applied bone wax on the divided edges of the marrow. We then proceeded to copiously irrigate. I then proceeded to reoppose the deep subcutaneous layer with Dexon 3-0 interrupted sutures. Skin closure was achieved with nylon 2-0 simple interrupted sutures. Dressings were applied with fluffy gauze. It was wrapped in Kerlix roll as well as Gregorio bandage The procedure was then completed . The patient tolerated procedure well. There were no complications noted. Initial and final counts of sponges and instruments were correct. Estimated blood loss was 200 cc The patient was extubated without difficulty and transferred to the recovery room with stable vital signs.
[2021-09-24] MEDS: fentaNYL citrate/PF 100 MCG/2 ML VIAL 50 MCG IVPUSH ×2 (13:54→14:00)
[2021-09-24] MEDS: HYDROmorphone HCl 0.5 MG/0.5 ML SYRINGE IVPUSH ×3 (14:09→14:49)
--- NOTE | 2021-09-24 15:05 | P.EN_ITS ---
Event Note Date of Service: 09/24/21 Event Note: Seen postop She had undergone transmetatarsal amputation earlier She appears comfortable very anxious TMA site dressings in place, dry, no bleeding, right side Continue pain management She also has osteomyelitis of the left big toe but she did not want amputation f or this Dry dressings daily 2-3 days postop
--- NOTE | 2021-09-24 16:31 | PC.NURSE ---
Before patient transported to floor,pt used purewick and feels wet and also incontinent of small amount of stool. dressing changed on right medial thigh with same as found. xeroform and tegaderm. Abelyn dressing on left upper medial thigh changed to new Abelyn dressing, barrier cream on wound. No contamination of wounds from stool seen, pt cleansed and positioned for comfort.
[2021-09-24 16:53] LABS: Glucose, Whole Blood 136 mg/dL (60-115)
[2021-09-24] MEDS: Heparin Sodium,Porcine 5,000 UNIT/ML VIAL 5000 UNIT SUBCUT (17:23)
[2021-09-24] MEDS: Gabapentin 400 MG CAPSULE PO ×2 (17:24→20:29)
[2021-09-24] MEDS: Potassium Chloride ER 20 MEQ TAB.ER.PRT 60 MEQ PO (17:24)
[2021-09-24 18:56] LABS: Vancomycin Trough 8.2 mcg/mL (10.0-20.0)
[2021-09-24 19:58] LABS: Glucose, Whole Blood 144 mg/dL (60-115)
[2021-09-24] MEDS: vancomycin HCL 1,500 MG in 0.9 % Sodium Chloride 500 ML 333.33 MG IV (20:27)
[2021-09-24] MEDS: oxyCODONE HCl Immed Release 5 MG TABLET 10 MG PO (20:30)
[2021-09-24] MEDS: Insulin Glargine,Hum.rec.anlog 100 UNIT/ML 10 ML VIAL 35 UNIT SUBCUT (20:31)
--- NOTE | 2021-09-25 00:26 | P.CNID_ITS ---
History of Present Illness Data of Consult Service Date: 09/24/21 Requesting physician: Shaina Burt Primary Care Provider: Unknown Physician HPI Reason for consult: MRSA bacteremia There are areas right and left foot with erythema as well as discomfort. She has no fever or chills. Blood is MRSA. Review of Systems Review of Systems: Yes all other systems are reviewed and are negative PMF Past Medical History Medical History (Updated 10/15/21 @ 10:28 by SAULO [place]) Anxiety Diabetes Substance abuse Surgical History Surgical History (Updated 10/13/21 @ 15:21 by Kay Ortiz MD) S/P amputation of foot Status post transmetatarsal amputation of right foot (09/24/21) Social History Social History Household Members: Family Housing: Apartment Do you presently have visiting nurse or other home services: Yes (Supposed to but pt. went to hospital) Alcohol intake: never Patient Tobacco Use Status: Current everyday Tobacco user Tobacco use type: Cigarette Cigarette Packs Per Day: 1 Second Hand Smoke Exposure: Yes Substance Use Type: Heroin, Opiates and Prescription Drugs service: No Current occupational status: unemployed Meds Allergies Allergy/AdvReac Type Severity Reaction Status Date / Time prednisone [PREDNISONE] Allergy Unknown RASH Verified 09/24/21 11:47 Active Medications: Current Medications Acetaminophen (Acetaminophen 325 Mg Tablet) 650 mg PO Q6H PRN PRN Reason: Pain, Mild (Pain Scale 1-3) Last Admin: 09/24/21 02:04 Dose: 650 mg Documented by: Alprazolam (Alprazolam 0.5 Mg Tablet) 2 mg PO BID [facility] Last Admin: 09/24/21 20:30 Dose: 2 mg Documented by: Amlodipine Besylate (Amlodipine Besylate 10 Mg Tablet) 10 mg PO DAILY DADA; Pr otocol Last Admin: 09/24/21 08:34 Dose: 10 mg Documented by: Fentanyl (Fentanyl Citrate/Pf 100 Mcg/2 Ml Vial) 50 mcg IVPUSH Q5M PRN; Protocol PRN Reason: Pain, Moderate (Pain Scale 4-6 Last Admin: 09/24/21 14:00 Dose: 50 mcg Documented by: Gabapentin (Gabapentin 400 Mg Capsule) 400 mg PO QID [facility] Last Admin: 09/24/21 20:29 Dose: 400 mg Documented by: Heparin Sodium (Porcine) (Heparin Sodium,Porcine 5,000 Unit/Ml Vial) 5,000 unit SUBCUT Q12H [facility] Last Admin: 09/24/21 17:23 Dose: 5,000 unit Documented by: Hydromorphone HCl (Hydromorphone Hcl 0.5 Mg/0.5 Ml Syringe) 0.5 mg IVPUSH Q5M PRN; Protocol PRN Reason: Pain, Severe (Pain Scale 7-10) Last Admin: 09/24/21 14:49 Dose: 0.5 mg Documented by: Piperacillin Sod/Tazobactam (Sod 4.5 gm/ Sodium Chloride) 100 mls @ 200 mls/hr IV Q6H [facility] Last Infusion: 09/24/21 19:30 Dose: Infused Documented by: Promethazine HCl 6.25 mg/ (Sodium Chloride) 50.25 mls @ 201 mls/hr IV ONCE PRN PRN Reason: Nausea and Vomiting Vancomycin HCl 1,500 mg/ (Sodium Chloride) 500 mls @ 333.333 mls/hr IV Q12H [facility] Last Infusion: 09/24/21 22:05 Dose: Infused Documented by: Insulin Glargine (Insulin Glargine,Hum.Rec.Anlog 100 Unit/Ml 10 Ml Vial) 35 u nit SUBCUT BEDTIME [facility] Last Admin: 09/24/21 20:31 Dose: 35 unit Documented by: Insulin Human Lispro (Insulin Lispro 100 Unit/Ml 3 Ml Vial) 0 unit SUBCUT QIDACHS [facility]; Protocol Last Admin: 09/24/21 20:31 Dose: Not Given Documented by: Morphine Sulfate (Morphine Sulfate 2 Mg/Ml Cartridge) 4 mg IVPUSH Q4H PRN; Protocol PRN Reason: Pain, Mild (Pain Scale 1-3) Last Admin: 09/24/21 23:26 Dose: 4 mg Documented by: Nicotine (Nicotine 21 Mg Patch.Td24) 21 mg TRANSDERMA DAILY [facility] Last Admin: 09/24/21 08:44 Dose: 21 mg Documented by: Ondansetron HCl (Ondansetron Hcl 4 Mg/2 Ml Vial) 4 mg IVPUSH Q8H PRN PRN Reason: Nausea and Vomiting Last Admin: 09/23/21 20:31 Dose: 4 mg Documented by: Ondansetron HCl (Ondansetron Hcl 4 Mg/2 Ml Vial) 4 mg IVPUSH ONCE PRN PRN Reason: Nausea and Vomiting Pharmacy Consult (Consult Rx Perform Med Rec) 1 each MISCELLANE ONCE PRN PRN Reason: Consult order Pharmacy Consult (Consult Rx Vancomycin Dosing) 1 each MISCELLANE DAILY PRN PRN Reason: Consult order Sertraline HCl (Sertraline Hcl 100 Mg Tablet) 100 mg PO BID [facility] Last Admin: 09/24/21 20:30 Dose: Not Given Documented by: Sodium Chloride (0.9 % Sodium Chloride Flush 3 Ml Syringe) 3 ml IVFLUSH QSHIFT [facility] Last Admin: 09/24/21 22:45 Dose: 3 ml Documented by: Home Medications Medication Instructions Recorded Confirmed Last Taken Type alprazolam 2 mg tablet 1 mg PO DAILY PRN 09/21/21 10/11/21 Unknown History alprazolam 2 mg tablet 2 mg PO BID 09/21/21 10/11/21 Unknown History gabapentin 400 mg capsule 400 mg PO QID 09/21/21 10/11/21 Unknown History insulin glargine 100 unit/mL (3 35 unit SUBCUT BEDTIME 09/21/21 10/11/21 Unknown History mL) subcutaneous pen (Lantus Solostar U-100 Insulin) sertraline 100 mg tablet 1 tab PO BID 09/21/21 10/11/21 Unknown History Physical Exam Vital Signs: Vital Signs: Last Vital Signs Temp 97.5 F 09/24/21 23:38 Pulse 81 09/24/21 23:38 Resp 19 09/24/21 23:38 BP 146/68 H 09/24/21 23:38 Pulse Ox 95 09/24/21 23:38 BMI result Body Mass Index 26.2 Const: General: cooperative Eyes: General: appearance normal, both eyes and all related structures Periorbital: periorbital findings normal Pupils: Equal, round and reactive pupils present Resp: Effort & Inspection: normal respiratory effort Cardio: Rate: regular rate Rhythm: regular rhythm GI: Palpation (GI): Soft to palpation and nontender Skin: General skin exam: no rashes or lesions noted Neuro: Cranial nerves: Yes Equal, round and reactive pupils present Extrem: Other: necrotic area foot Results Labs CBC & Chem 7: 10/03/21 05:37 10/04/21 04:16 Labs: Short CBC 09/24/21 Range/Units 07:56 WBC 11.9 H (4.8-10.8) X10*3/uL Hgb 11.3 L (12.0-16.0) g/dl Hct 35.7 L (37.0-47.0) % Plt Count 568 H (160-400) X10*3/uL BMP 09/24/21 07:56 Sodium 138 Potassium 3.2 L Chloride 94 L Carbon Dioxide 29 BUN 8 L Creatinine 0.63 Calcium 8.1 L D Microbiology Microbiology Results: Microbiology 09/21/21 14:54 Blood - Venous Blood Culture - Final Methicillin Res Staph Aureus 09/21/21 14:54 Blood - Venous Blood Culture - Preliminary No growth after 48 hours. Assessment and Plan (1) MRSA bacteremia: Status: Acute this is related to foot wound (2) Open wound of foot: Qualifiers: Encounter type: initial encounter Laterality: right Qualified Code(s): S91.301A - Unspecified open wound, right foot, initial encounter Status: Acute Plan Continue Vancomycin for six weeks as likely osteomyelitis May stop Zosyn
[2021-09-25] MEDS: Piperacillin Sodium/Tazobactam 4.5 GM in 0.9 % Sodium Chloride 100 ML IV ×4 (01:45→18:35)
[2021-09-25] MEDS: Morphine Sulfate 2 MG/ML CARTRIDGE 4 MG IVPUSH ×6 (03:14→21:31)
[2021-09-25 03:37] VITALS: BP 181/84; PULSE 84; RESP 20; TEMP 36.1; O2SAT 94
[2021-09-25 05:49] LABS: Hematocrit 32.1 % (37.0-47.0); Mean Corpuscular HGB Conc 31.2 g/dl (31.0-35.0); Mean Corpuscular Hemoglobin 26.6 pg (27.0-33.0); Mean Corpuscular Volume 85.4 fL (80.0-98.0); Mean Platelet Volume 9.1 fL (9.4-12.3); Platelet Count 615 X10*3/uL (160-400); Red Blood Count 3.76 X10*6/uL (4.20-5.50); Red Cell Distribution Width 14.8 % (11.0-16.0); White Blood Count 16.8 X10*3/uL (4.8-10.8)
[2021-09-25] MEDS: Acetaminophen 325 MG TABLET 650 MG PO ×2 (06:02→13:22)
[2021-09-25] MEDS: Heparin Sodium,Porcine 5,000 UNIT/ML VIAL 5000 UNIT SUBCUT ×2 (06:02→17:03)
[2021-09-25 06:04] LABS: Anion Gap 12 (12-20); Blood Urea Nitrogen 10 mg/dL (9-16); Carbon Dioxide 33 mmol/L (22-29); Chloride 97 mmol/L (96-108); Creatinine Clr Calc Pharmacy 95.5; Estimated Glomerular Filt Rate > 60; Glucose Random 187 mg/dL (60-115); Potassium 3.3 mmol/L (3.3-5.1); Sodium 139 mmol/L (135-145)
--- NOTE | 2021-09-25 06:09 | HO.POSTANES ---
Post Anesthesia Evaluation Post Anesthesia Evaluation Vital Signs: Vital Signs Temp Pulse Resp BP Pulse Ox 09/25/21 03:37 97 F 84 20 181/84 H 94 09/24/21 23:38 97.5 F 81 19 146/68 H 95 09/24/21 19:49 98.9 F 92 20 158/73 H 98 Anesthesia: General Mental Status: Awake Pain Control: Satisfactory Nausea/Vomiting: None Hydration: Adequate Anesthesia-Related Issues: No Anes. Related Issues
[2021-09-25] MEDS: ALPRAZolam 0.5 MG TABLET 2 MG PO ×2 (07:28→21:32)
[2021-09-25] MEDS: Gabapentin 400 MG CAPSULE PO ×4 (07:29→21:32)
[2021-09-25] MEDS: Nicotine 21 MG PATCH.TD24 TRANSDERMA (07:30)
[2021-09-25] MEDS: vancomycin HCL 1,500 MG in 0.9 % Sodium Chloride 500 ML 333.33 MG IV (07:31)
[2021-09-25 07:32] VITALS: BP 182/88; PULSE 87; RESP 18; TEMP 37.5; O2SAT 93
[2021-09-25 07:47] LABS: Glucose, Whole Blood 232 mg/dL (60-115)
--- NOTE | 2021-09-25 07:48 | PHA.PROG ---
Admission Date/Time: September 21, 2021 17:01 Indication: MRSA Bactermia/osteoylitis Weight in k.75 kg Adjusted body weight in K.6 kg Sutton body weight in K.6 kg Obesity Dosing Indication % IBW: 122 % Serum Creatinine - Last 168 Hours 09/21/21 09/22/21 09/22/21 14:36 06:00 06:00 Creatinine 0.56 Cancelled 0.51 09/23/21 09/24/21 09/25/21 05:47 07:56 05:28 Creatinine 0.58 0.63 0.74 Estimated CrCl and GFR - Last 168 Hours 09/21/21 09/22/21 09/22/21 14:36 06:00 06:00 Estim Creat Clear Calc 126.1 Cancelled 138.6 Estimated GFR > 60 Cancelled > 60 09/23/21 09/24/21 09/25/21 05:47 07:56 05:28 Estim Creat Clear Calc 121.8 112.1 95.5 Estimated GFR > 60 > 60 > 60 Vancomycin Loading Dose: 1000 mg + 500 mg Current Vancomycin Dosing Regimen: 1500 mg Q12H Date and Time for next Vancomycin Level to be drawn: 09/26 @ 0600 Vancomycin Trough 8.2 mcg/mL (10.0-20.0) L 09/24/21 18:09 Pharmacist Comments on Vancomycin Plan: SCr slighly increased with the increase in vancomycin dose. Trough on 09/24 was most likely low since the morning dose on 09/24 was not fully infused due to an infiltrated line. Patient was previously at therapeutic levels with vancomycin 1250 mg Q12H with better SCr Will decrease vancomycin to 1250 mg Q12H. Pharmacy will continue to monitor renal function daily Marlin Monterroso, Marleni Monterroso PharmD Vancomycin dosing will take advantage of [employer] as a clinical decision support tool that uses Bayesian modeling to calculate individual patient's pharmacokinetic parameters and forecast the patient's drug concentration time course with the target goal AUC 24 range of 400 - 600 mg/L/hr.
[2021-09-25] MEDS: Insulin Lispro 100 UNIT/ML 3 ML VIAL SUBCUT ×2 (08:11→17:00)
[2021-09-25] MEDS: amLODIPine Besylate 10 MG TABLET PO (08:12)
[2021-09-25] MEDS: 0.9 % Sodium Chloride Flush 3 ML SYRINGE IVFLUSH ×3 (08:12→21:33)
--- NOTE | 2021-09-25 09:39 | PM.PNGS ---
Subjective Subjective Date of Service: 09/25/21 Interval history: Patient reporting breakthrough right foot pain. Physical Exam Vital Signs: Vital Signs: Last Vital Signs Temp 99.5 F 09/25/21 07:32 Pulse 87 09/25/21 07:32 Resp 18 09/25/21 07:32 BP 182/88 H 09/25/21 07:32 Pulse Ox 93 09/25/21 07:32 BMI result Body Mass Index 26.2 Const: General: no acute distress Nutritional Appearance: well nourished Orientation/consciousness: patient oriented x3 Resp: Effort & Inspection: normal respiratory effort and no respiratory distress Skin: Other: Warm, dry, no rash Neuro: General: patient oriented x3 Extrem: Other: Right foot dressings are clean and intact without bloody discharge. Objective Data Active Medications Acetaminophen (Acetaminophen 325 Mg Tablet) 650 mg PO Q6H PRN PRN Reason: Pain, Mild (Pain Scale 1-3) Last Admin: 09/25/21 06:02 Dose: 650 mg Documented by: ESPERANZA Alprazolam (Alprazolam 0.5 Mg Tablet) 2 mg PO BID [facility] Last Admin: 09/25/21 07:28 Dose: 2 mg Documented by: BLAKE Amlodipine Besylate (Amlodipine Besylate 10 Mg Tablet) 10 mg PO DAILY [facility]; Protocol Last Admin: 09/25/21 08:12 Dose: 10 mg Documented by: BLAKE Gabapentin (Gabapentin 400 Mg Capsule) 400 mg PO QID [facility] Last Admin: 09/25/21 07:29 Dose: 400 mg Documented by: BLAKE Heparin Sodium (Porcine) (Heparin Sodium,Porcine 5,000 Unit/Ml Vial) 5,000 unit SUBCUT Q12H [facility] Last Admin: 09/25/21 06:02 Dose: 5,000 unit Documented by: ESPERANZA Piperacillin Sod/Tazobactam (Sod 4.5 gm/ Sodium Chloride) 100 mls @ 200 mls/hr IV Q6H [facility] Last Infusion: 09/25/21 07:38 Dose: 0 mls/hr Documented by: BLAKE Vancomycin HCl 1,250 mg/ (Sodium Chloride) 250 mls @ 166.667 mls/hr IV Q12H [facility] Insulin Glargine (Insulin Glargine,Hum.Rec.Anlog 100 Unit/Ml 10 Ml Vial) 35 unit SUBCUT BEDTIME [facility] Last Admin: 09/24/21 20:31 Dose: 35 unit Documented by: ESPERANZA Insulin Human Lispro (Insulin Lispro 100 Unit/Ml 3 Ml Vial) 0 unit SUBCUT QIDACHS [facility]; Protocol Last Admin: 09/25/21 08:11 Dose: 4 unit Documented by: BLAKE Morphine Sulfate (Morphine Sulfate 2 Mg/Ml Cartridge) 4 mg IVPUSH Q4H PRN; Protocol PRN Reason: Pain, Mild (Pain Scale 1-3) Last Admin: 09/25/21 07:28 Dose: 4 mg Documented by: BLAKE Nicotine (Nicotine 21 Mg Patch.Td24) 21 mg TRANSDERMA DAILY [facility] Last Admin: 09/25/21 07:30 Dose: 21 mg Documented by: BLAKE Ondansetron HCl (Ondansetron Hcl 4 Mg/2 Ml Vial) 4 mg IVPUSH Q8H PRN PRN Reason: Nausea and Vomiting Last Admin: 09/23/21 20:31 Dose: 4 mg Documented by: FRANCISCA Pharmacy Consult (Consult Rx Perform Med Rec) 1 each MISCELLANE ONCE PRN PRN Reason: Consult order Pharmacy Consult (Consult Rx Vancomycin Dosing) 1 each MISCELLANE DAILY PRN PRN Reason: Consult order Sertraline HCl (Sertraline Hcl 100 Mg Tablet) 100 mg PO BID [facility] Last Admin: 09/25/21 07:36 Dose: Not Given Documented by: BLAKE Non-Admin Reason: Patient Refused Sodium Chloride (0.9 % Sodium Chloride Flush 3 Ml Syringe) 3 ml IVFLUSH QSHIFT [facility] Last Admin: 09/25/21 08:12 Dose: 3 ml Documented by: BLAKE Labs CBC & Chem 7: 09/25/21 05:28 09/25/21 05:28 Labs: Laboratory Results - last 24 hr 09/24/21 09/24/21 09/24/21 11:22 16:49 18:09 MCV MCH MCHC RDW Plt Count MPV Absolute Nucleated RBC Nucleated RBC % (auto) Anion Gap Estim Creat Clear Calc Estimated GFR POC Glucose 130 H 136 H Random Glucose Calcium Vancomycin Trough 8.2 L 02/18/22 02/19/22 02/19/22 19:52 05:28 05:28 MCV 85.4 MCH 26.6 L MCHC 31.2 RDW 14.8 Plt Count 615 H MPV 9.1 L Absolute Nucleated RBC 0.000 Nucleated RBC % (auto) 0.0 Anion Gap 12 Estim Creat Clear Calc 95.5 Estimated GFR > 60 POC Glucose 144 H Random Glucose 187 H Calcium 8.0 L Vancomycin Trough 09/25/21 07:30 MCV MCH MCHC RDW Plt Count MPV Absolute Nucleated RBC Nucleated RBC % (auto) Anion Gap Estim Creat Clear Calc Estimated GFR POC Glucose 232 H Random Glucose Calcium Vancomycin Trough Microbiology Microbiology Results: Microbiology 09/21/21 14:54 Blood Culture - Final Blood - Venous Methicillin Res Staph Aureus Procedures Date of Service Date of Service: 09/25/21 Progress Note: A&P Assessment and plan (1) Status post transmetatarsal amputation of right foot: Status: Acute Plan Pod 1 status post right transmetatarsal amputation. Patient reports foot pain which is expected at this point. Dressings are clean and intact without evidence bleeding or discharge. Plan dressing change on Monday. Fall Risk Details Current Medications: Current Medications Acetaminophen (Acetaminophen 325 Mg Tablet) 650 mg PO Q6H PRN PRN Reason: Pain, Mild (Pain Scale 1-3) Last Admin: 09/25/21 06:02 Dose: 650 mg Documented by: Alprazolam (Alprazolam 0.5 Mg Tablet) 2 mg PO BID [facility] Last Admin: 09/25/21 07:28 Dose: 2 mg Documented by: Amlodipine Besylate (Amlodipine Besylate 10 Mg Tablet) 10 mg PO DAILY [facility]; Protocol Last Admin: 09/25/21 08:12 Dose: 10 mg Documented by: Gabapentin (Gabapentin 400 Mg Capsule) 400 mg PO QID [facility] Last Admin: 09/25/21 07:29 Dose: 400 mg Documented by: Heparin Sodium (Porcine) (Heparin Sodium,Porcine 5,000 Unit/Ml Vial) 5,000 unit SUBCUT Q12H [facility] Last Admin: 09/25/21 06:02 Dose: 5,000 unit Documented by: Piperacillin Sod/Tazobactam (Sod 4.5 gm/ Sodium Chloride) 100 mls @ 200 mls/hr IV Q6H [facility] Last Infusion: 09/25/21 07:38 Dose: Infused Documented by: Vancomycin HCl 1,250 mg/ (Sodium Chloride) 250 mls @ 166.667 mls/hr IV Q12H [facility] Insulin Glargine (Insulin Glargine,Hum.Rec.Anlog 100 Unit/Ml 10 Ml Vial) 35 unit SUBCUT BEDTIME [facility] Last Admin: 09/24/21 20:31 Dose: 35 unit Documented by: Insulin Human Lispro (Insulin Lispro 100 Unit/Ml 3 Ml Vial) 0 unit SUBCUT QIDACHS [facility]; Protocol Last Admin: 09/25/21 08:11 Dose: 4 unit Documented by: Morphine Sulfate (Morphine Sulfate 2 Mg/Ml Cartridge) 4 mg IVPUSH Q4H PRN; Protocol PRN Reason: Pain, Mild (Pain Scale 1-3) Last Admin: 09/25/21 07:28 Dose: 4 mg Documented by: Nicotine (Nicotine 21 Mg Patch.Td24) 21 mg TRANSDERMA DAILY [facility] Last Admin: 09/25/21 07:30 Dose: 21 mg Documented by: Ondansetron HCl (Ondansetron Hcl 4 Mg/2 Ml Vial) 4 mg IVPUSH Q8H PRN PRN Reason: Nausea and Vomiting Last Admin: 09/23/21 20:31 Dose: 4 mg Documented by: Pharmacy Consult (Consult Rx Perform Med Rec) 1 each MISCELLANE ONCE PRN PRN Reason: Consult order Pharmacy Consult (Consult Rx Vancomycin Dosing) 1 each MISCELLANE DAILY PRN PRN Reason: Consult order Sertraline HCl (Sertraline Hcl 100 Mg Tablet) 100 mg PO BID [facility] Last Admin: 09/25/21 07:36 Dose: Not Given Documented by: Sodium Chloride (0.9 % Sodium Chloride Flush 3 Ml Syringe) 3 ml IVFLUSH QSHIFT [facility] Last Admin: 09/25/21 08:12 Dose: 3 ml Documented by: Time Spent With Patient Time: Total time spent is greater than 50% in coordination of care (as documented) at patient's floor/unit and/or counseling patient: Time with patient: 15 - 24 minutes Quality Stroke Does the patient have a stroke diagnosis?: No VTE Prior VTE?: No VTE Risk Level:: Medical - moderate - high VTE Device Contraindication: Treatment Not Indicated VTE Drug Contraindication: N/A - Med Ordered
[2021-09-25] MEDS: oxyCODONE HCl Immed Release 5 MG TABLET PO ×2 (10:32→19:36)
[2021-09-25 11:49] VITALS: BP 160/74; PULSE 78; RESP 18; TEMP 37.1; O2SAT 92
[2021-09-25 12:10] LABS: Glucose, Whole Blood 141 mg/dL (60-115)
--- NOTE | 2021-09-25 12:15 | HO.PM.IMPN ---
Subjective Subjective Date of Service: 09/25/21 Review of Systems seen and examined this morning s/p TMA Still with significant pain no chest pain, sob, nausea or vomiting Physical Exam Vital Signs: Vital Signs: Last Vital Signs Temp 98.7 F 09/25/21 11:49 Pulse 78 09/25/21 11:49 Resp 18 09/25/21 11:49 BP 160/74 H 09/25/21 11:49 Pulse Ox 92 09/25/21 11:49 BMI result Body Mass Index 26.2 Appearing in no acute distress lung sounds are clear to auscultation heart regular rate rhythm, clear S1, S2 positive bowel sounds, abdomen is soft, nontender neuro patient is alert x3, no focal deficits Surgical dressing to right foot, wound not visualized Left great toe bandage Objective Data Active Medications Acetaminophen (Acetaminophen 325 Mg Tablet) 650 mg PO Q6H PRN PRN Reason: Pain, Mild (Pain Scale 1-3) Last Admin: 09/25/21 06:02 Dose: 650 mg Documented by: ESPERANZA Alprazolam (Alprazolam 0.5 Mg Tablet) 2 mg PO BID [facility] Last Admin: 09/25/21 07:28 Dose: 2 mg Documented by: BLAKE Amlodipine Besylate (Amlodipine Besylate 10 Mg Tablet) 10 mg PO DAILY [facility]; Protocol Last Admin: 09/25/21 08:12 Dose: 10 mg Documented by: BLAKE Gabapentin (Gabapentin 400 Mg Capsule) 400 mg PO QID [facility] Last Admin: 09/25/21 07:29 Dose: 400 mg Documented by: BLAKE Heparin Sodium (Porcine) (Heparin Sodium,Porcine 5,000 Unit/Ml Vial) 5,000 unit SUBCUT Q12H [facility] Last Admin: 09/25/21 06:02 Dose: 5,000 unit Documented by: ESPERANZA Piperacillin Sod/Tazobactam (Sod 4.5 gm/ Sodium Chloride) 100 mls @ 200 mls/hr IV Q6H [facility] Last Infusion: 09/25/21 07:38 Dose: 0 mls/hr Documented by: BLAKE Vancomycin HCl 1,250 mg/ (Sodium Chloride) 250 mls @ 166.667 mls/hr IV Q12H [facility] Insulin Glargine (Insulin Glargine,Hum.Rec.Anlog 100 Unit/Ml 10 Ml Vial) 35 unit SUBCUT BEDTIME [facility] Last Admin: 09/24/21 20:31 Dose: 35 unit Documented by: ESPERANZA Insulin Human Lispro (Insulin Lispro 100 Unit/Ml 3 Ml Vial) 0 unit SUBCUT QIDACHS [facility]; Protocol Last Admin: 09/25/21 12:13 Dose: Not Given Documented by: BLAKE Non-Admin Reason: No Insulin Coverage Morphine Sulfate (Morphine Sulfate 2 Mg/Ml Cartridge) 4 mg IVPUSH Q3H PRN; Protocol PRN Reason: Pain, Mild (Pain Scale 1-3) Last Admin: 09/25/21 11:34 Dose: 4 mg Documented by: BLAKE Nicotine (Nicotine 21 Mg Patch.Td24) 21 mg TRANSDERMA DAILY [facility] Last Admin: 09/25/21 07:30 Dose: 21 mg Documented by: BLAKE Ondansetron HCl (Ondansetron Hcl 4 Mg/2 Ml Vial) 4 mg IVPUSH Q8H PRN PRN Reason: Nausea and Vomiting Last Admin: 09/23/21 20:31 Dose: 4 mg Documented by: FRANCISCA Oxycodone HCl (Oxycodone Hcl Immed Release 5 Mg Tablet) 5 mg PO Q4H PRN PRN Reason: pain Last Admin: 09/25/21 10:32 Dose: 5 mg Documented by: BLAKE Pharmacy Consult (Consult Rx Perform Med Rec) 1 each MISCELLANE ONCE PRN PRN Reason: Consult order Pharmacy Consult (Consult Rx Vancomycin Dosing) 1 each MISCELLANE DAILY PRN PRN Reason: Consult order Sertraline HCl (Sertraline Hcl 100 Mg Tablet) 100 mg PO BID [facility] Last Admin: 09/25/21 07:36 Dose: Not Given Documented by: BLAKE Non-Admin Reason: Patient Refused Sodium Chloride (0.9 % Sodium Chloride Flush 3 Ml Syringe) 3 ml IVFLUSH QSHIFT [facility] Last Admin: 09/25/21 08:12 Dose: 3 ml Documented by: BLAKE Labs CBC & Chem 7: 09/25/21 05:28 09/25/21 05:28 Labs: Laboratory Results - last 24 hr 09/24/21 09/24/21 09/24/21 16:49 18:09 19:52 MCV MCH MCHC RDW Plt Count MPV Absolute Nucleated RBC Nucleated RBC % (auto) Anion Gap Estim Creat Clear Calc Estimated GFR POC Glucose 136 H 144 H Random Glucose Calcium Vancomycin Trough 8.2 L 09/25/21 09/25/21 09/25/21 05:28 05:28 07:30 MCV 85.4 MCH 26.6 L MCHC 31.2 RDW 14.8 Plt Count 615 H MPV 9.1 L Absolute Nucleated RBC 0.000 Nucleated RBC % (auto) 0.0 Anion Gap 12 Estim Creat Clear Calc 95.5 Estimated GFR > 60 POC Glucose 232 H Random Glucose 187 H Calcium 8.0 L Vancomycin Trough 09/25/21 11:44 MCV MCH MCHC RDW Plt Count MPV Absolute Nucleated RBC Nucleated RBC % (auto) Anion Gap Estim Creat Clear Calc Estimated GFR POC Glucose 141 H Random Glucose Calcium Vancomycin Trough Microbiology Microbiology Results: Microbiology 09/21/21 14:54 Blood Culture - Final Blood - Venous Methicillin Res Staph Aureus Assessment and Plan (1) MRSA bacteremia: Status: Acute (2) Osteomyelitis: Status: Acute Plan This is a 51 yo F with a PMH of DM, OUD (snorts heroin), anxiety, who presents to the hospital with R foot pain. Her presentation is consistent with sepsis secondary to osteomyelitis. Sepsis secondary to osteomyelitis/septic arthritis of the R 1st TMP joint, Osteo the L Great Toe -- suspected due to DM. Resolved Continue broad spec IV anbitioics with IV vanco/zosyn s/p TMA ID consult following will need repairer helper antibiotics for left great toe osteo Medication management MRSA bacteremia likely related to osteo/foot infection as above 1/2 BCx growing MRSA, repeat blood cultures pending continue IV vancomycin HTN bp still elevated not on meds at baseline increase dose of norvasc to 10 mg if no improvement may need to add lisinopril Hypokalemia/hypomagnesemia mag improved K 3.2 replace and follow Diarrhea improved cdif pending DM HbA1c 8.6 continue lantus, sliding scale diabetic diet Opiate use disorder see by Addiction medicine methadone not clinically appropriate at this time, will consider resuming suboxone tobacco dependence smoking cessation advised NRT Mood Xanax, zoloft Falls likely due to weakness related to foot issues eventual PT eval she has indicated that she would not want to go to rehab Full Code DVT pptx, subcut. heparin Attending: Dr. Chaudhari Quality Stroke Does the patient have a stroke diagnosis?: No VTE Prior VTE?: No VTE Risk Level:: Medical - moderate - high VTE Device Contraindication: Treatment Not Indicated VTE Drug Contraindication: N/A - Med Ordered
[2021-09-25] MEDS: ondansetron HCL 4 MG/2 ML VIAL IVPUSH (13:22)
--- NOTE | 2021-09-25 13:57 | MHC.CM.PN ---
THIS TECHNICAL PROPOSAL WRITER MET WITH PATIENT AND SON-IN[place]LA[place] (IN ROOM) WITH PERMISSION. PATIENT AND S.I.L. ARE AWARE OF BARRIERS TO HOME WITH [facility] SERVICE. THEY ARE ALSO AWARE OF NEED FOR STR FOR LT IV ABX BUT THAT HER NON-VACCINATED STATUS MAY ALSO POSE A POTENTIAL BARRIER. CASE MANAGEMENT TO CONTINUE ATTEMPTS. FAMILY AGREES THAT REHAB PLACEMENT IS THE ONLY OPTION. PATIENT ASKED ABOUT METHADONE AND WAS INFORMED OF ADDICTION MEDICINE'S REASONS REPORT OF WHY METHADONE IS NOT APPROPRIATE AT THIS TIME. PATIENT REFUSES SUBOXONE AND [place] STATE THAT PATIENT SELLS HER SUBOXONE. PATIENT AGREES TO STATEMENT AND IS STILL HOPING TO BE ABLE TO START METHADONE.
[2021-09-25 15:34] VITALS: BP 139/65; PULSE 79; RESP 15; TEMP 36.6; O2SAT 93
[2021-09-25 16:35] LABS: Glucose, Whole Blood 166 mg/dL (60-115)
[2021-09-25 19:10] VITALS: BP 166/74; PULSE 70; RESP 18; TEMP 36.6; O2SAT 97
[2021-09-25] MEDS: vancomycin HCL 1,250 MG in 0.9 % Sodium Chloride 250 ML 166.67 MG IV (19:36)
[2021-09-25 19:57] LABS: Glucose, Whole Blood 153 mg/dL (60-115)
[2021-09-25] MEDS: Insulin Glargine,Hum.rec.anlog 100 UNIT/ML 10 ML VIAL 35 UNIT SUBCUT (21:32)
[2021-09-25 23:55] VITALS: BP 183/89; PULSE 78; RESP 18; TEMP 37; O2SAT 94
[2021-09-26] VITALS (8 sets, daily range): BP systolic 155–184; BP diastolic 67–86; PULSE 65–85; RESP 16–18; TEMP 36.4–37.2; O2SAT 95–97
[2021-09-26] MEDS: Morphine Sulfate 2 MG/ML CARTRIDGE 4 MG IVPUSH ×3 (00:57→09:30)
[2021-09-26] MEDS: Piperacillin Sodium/Tazobactam 4.5 GM in 0.9 % Sodium Chloride 100 ML IV ×5 (01:02→23:08)
[2021-09-26] MEDS: oxyCODONE HCl Immed Release 5 MG TABLET PO ×2 (01:40→07:40)
[2021-09-26] MEDS: Heparin Sodium,Porcine 5,000 UNIT/ML VIAL 5000 UNIT SUBCUT ×2 (05:58→17:05)
[2021-09-26 06:55] LABS: Vancomycin Trough 20.6 mcg/mL (10.0-20.0)
[2021-09-26 07:30] LABS: Creatinine Clr Calc Pharmacy 98.1; Estimated Glomerular Filt Rate > 60
[2021-09-26] MEDS: ALPRAZolam 0.5 MG TABLET 2 MG PO ×2 (07:42→21:14)
[2021-09-26] MEDS: amLODIPine Besylate 10 MG TABLET PO (07:42)
[2021-09-26] MEDS: Gabapentin 400 MG CAPSULE PO ×4 (07:43→21:15)
[2021-09-26] MEDS: Nicotine 21 MG PATCH.TD24 TRANSDERMA (07:43)
[2021-09-26 07:46] LABS: Glucose, Whole Blood 142 mg/dL (60-115)
[2021-09-26] MEDS: 0.9 % Sodium Chloride Flush 3 ML SYRINGE IVFLUSH ×3 (07:46→21:14)
--- NOTE | 2021-09-26 07:46 | PHA.PROG ---
Admission Date/Time: September 21, 2021 17:01 Indication: MRSA Bactermia/osteoylitis Weight in k.75 kg Adjusted body weight in K.6 kg [place] body weight in K.6 kg Obesity Dosing Indication % IBW: 122 % Serum Creatinine - Last 168 Hours 09/21/21 09/22/21 09/22/21 14:36 06:00 06:00 Creatinine 0.56 Cancelled 0.51 09/23/21 09/24/21 09/25/21 05:47 07:56 05:28 Creatinine 0.58 0.63 0.74 09/26/21 05:55 Creatinine 0.72 Estimated CrCl and GFR - Last 168 Hours 09/21/21 09/22/21 09/22/21 14:36 06:00 06:00 Estim Creat Clear Calc 126.1 Cancelled 138.6 Estimated GFR > 60 Cancelled > 60 09/23/21 09/24/21 09/25/21 05:47 07:56 05:28 Estim Creat Clear Calc 121.8 112.1 95.5 Estimated GFR > 60 > 60 > 60 09/26/21 05:55 Estim Creat Clear Calc 98.1 Estimated GFR > 60 Vancomycin Loading Dose: 1000 mg + 500 mg Current Vancomycin Dosing Regimen: 1250 mg Q12H Vancomycin Trough 20.6 mcg/mL (10.0-20.0) H 09/26/21 05:55 Pharmacist Comments on Vancomycin Plan: Trough at 20.6 today. Most likely due to 1500 mg x 2 dose. SCr is slightly higher than when patient was therapuetic on 1250 mg Q24H therefore will trial a lower dose. Will decrease vancomycin to 1000 mg Q12H and will get a trough in 24 hours Trough 09/27 @ 0600 Pharmacy will continue to monitor renal function daily Marlin Monterroso PharmD Vancomycin dosing will take advantage of [employer] as a clinical decision support tool that uses Bayesian modeling to calculate individual patient's pharmacokinetic parameters and forecast the patient's drug concentration time course with the target goal AUC 24 range of 400 - 600 mg/L/hr.
[2021-09-26] MEDS: vancomycin HCL 1,000 MG in 0.9 % Sodium Chloride 250 ML 270 MG IV ×2 (07:53→21:14)
--- NOTE | 2021-09-26 08:30 | P.PNGS_ITS ---
Subjective Subjective Date of Service: 09/26/21 Interval history: Reports right foot pain. Reports some improvement with pain medication. Meds last for approximately 1-1/2 hour Physical Exam Vital Signs: Vital Signs: Last Vital Signs Temp 97.5 F 09/26/21 07:33 Pulse 77 09/26/21 07:33 Resp 18 09/26/21 07:33 BP 171/81 H 09/26/21 07:33 Pulse Ox 97 09/26/21 07:33 BMI result Body Mass Index 26.2 Const: General: alert and awake Nutritional Appearance: well nourished Orientation/consciousness: patient oriented x3 Resp: Effort & Inspection: normal respiratory effort Skin: General skin exam: no erythema and no induration Neuro: General: patient oriented x3 Extrem: Other: Right foot: dressings clean, dry, and intact without redness or discharge. Objective Data Active Medications Acetaminophen (Acetaminophen 325 Mg Tablet) 650 mg PO Q6H PRN PRN Reason: Pain, Mild (Pain Scale 1-3) Last Admin: 09/25/21 13:22 Dose: 650 mg Documented by: BLAKE Alprazolam (Alprazolam 0.5 Mg Tablet) 2 mg PO BID [facility] Last Admin: 09/26/21 07:42 Dose: 2 mg Documented by: BLAKE Amlodipine Besylate (Amlodipine Besylate 10 Mg Tablet) 10 mg PO DAILY [facility]; Protocol Last Admin: 09/26/21 07:42 Dose: 10 mg Documented by: BLAKE Gabapentin (Gabapentin 400 Mg Capsule) 400 mg PO QID [facility] Last Admin: 09/26/21 07:43 Dose: 400 mg Documented by: BLAKE Heparin Sodium (Porcine) (Heparin Sodium,Porcine 5,000 Unit/Ml Vial) 5,000 unit SUBCUT Q12H [facility] Last Admin: 09/26/21 05:58 Dose: 5,000 unit Documented by: ESPERANZA Piperacillin Sod/Tazobactam (Sod 4.5 gm/ Sodium Chloride) 100 mls @ 200 mls/hr IV Q6H [facility] Last Infusion: 09/26/21 06:34 Dose: 0 mls/hr Documented by: ESPERANZA Vancomycin HCl 1,000 mg/ (Sodium Chloride) 270 mls @ 270 mls/hr IV Q12H [facility] Last Admin: 09/26/21 07:53 Dose: 270 mls/hr Documented by: BLAKE Insulin Glargine (Insulin Glargine,Hum.Rec.Anlog 100 Unit/Ml 10 Ml Vial) 35 unit SUBCUT BEDTIME [facility] Last Admin: 09/25/21 21:32 Dose: 35 unit Documented by: ESPERANZA Insulin Human Lispro (Insulin Lispro 100 Unit/Ml 3 Ml Vial) 0 unit SUBCUT QIDACHS [facility]; Protocol Last Admin: 09/26/21 07:47 Dose: Not Given Documented by: BLAKE Non-Admin Reason: No Insulin Coverage Lisinopril (Lisinopril 5 Mg Tablet) 5 mg PO DAILY [facility]; Protocol Morphine Sulfate (Morphine Sulfate 2 Mg/Ml Cartridge) 4 mg IVPUSH Q3H PRN; Protocol PRN Reason: Pain, Mild (Pain Scale 1-3) Last Admin: 09/26/21 05:59 Dose: 4 mg Documented by: ESPERANZA Nicotine (Nicotine 21 Mg Patch.Td24) 21 mg TRANSDERMA DAILY [facility] Last Admin: 09/26/21 07:43 Dose: 21 mg Documented by: BLAKE Ondansetron HCl (Ondansetron Hcl 4 Mg/2 Ml Vial) 4 mg IVPUSH Q8H PRN PRN Reason: Nausea and Vomiting Last Admin: 09/25/21 13:22 Dose: 4 mg Documented by: BLAKE Oxycodone HCl (Oxycodone Hcl Immed Release 5 Mg Tablet) 5 mg PO Q4H PRN PRN Reason: pain Last Admin: 09/26/21 07:40 Dose: 5 mg Documented by: BLAKE Pharmacy Consult (Consult Rx Perform Med Rec) 1 each MISCELLANE ONCE PRN PRN Reason: Consult order Pharmacy Consult (Consult Rx Vancomycin Dosing) 1 each MISCELLANE DAILY PRN PRN Reason: Consult order Sodium Chloride (0.9 % Sodium Chloride Flush 3 Ml Syringe) 3 ml IVFLUSH QSHIFT [facility] Last Admin: 09/26/21 07:46 Dose: 3 ml Documented by: BLAKE Labs CBC & Chem 7: 09/25/21 05:28 09/26/21 05:55 Labs: Laboratory Results - last 24 hr 09/25/21 09/25/21 09/25/21 11:44 16:20 19:52 Estim Creat Clear Calc Estimated GFR POC Glucose 141 H 166 H 153 H Vancomycin Trough 09/26/21 09/26/21 09/26/21 05:55 05:55 07:31 Estim Creat Clear Calc 98.1 Estimated GFR > 60 POC Glucose 142 H Vancomycin Trough 20.6 H Microbiology Microbiology Results: Microbiology 09/21/21 14:54 Blood Culture - Final Blood - Venous Methicillin Res Staph Aureus Coag negative Staphylococcus 09/24/21 16:00 Blood Culture - Preliminary Blood - Venous No growth after 24 hours. 09/24/21 15:57 Blood Culture - Preliminary Blood - Venous No growth after 24 hours. Procedures Date of Service Date of Service: 09/26/21 Progress Note: A&P Assessment and plan (1) Status post transmetatarsal amputation of right foot: Status: Acute Plan Patient remains stable following right transmetatarsal amputation. Dressings are clean and intact. Plan for dressing change tomorrow. Fall Risk Details Current Medications: Current Medications Acetaminophen (Acetaminophen 325 Mg Tablet) 650 mg PO Q6H PRN PRN Reason: Pain, Mild (Pain Scale 1-3) Last Admin: 09/25/21 13:22 Dose: 650 mg Documented by: Alprazolam (Alprazolam 0.5 Mg Tablet) 2 mg PO BID [facility] Last Admin: 09/26/21 07:42 Dose: 2 mg Documented by: Amlodipine Besylate (Amlodipine Besylate 10 Mg Tablet) 10 mg PO DAILY [facility]; Protocol Last Admin: 09/26/21 07:42 Dose: 10 mg Documented by: Gabapentin (Gabapentin 400 Mg Capsule) 400 mg PO QID [facility] Last Admin: 09/26/21 07:43 Dose: 400 mg Documented by: Heparin Sodium (Porcine) (Heparin Sodium,Porcine 5,000 Unit/Ml Vial) 5,000 unit SUBCUT Q12H [facility] Last Admin: 09/26/21 05:58 Dose: 5,000 unit Documented by: Piperacillin Sod/Tazobactam (Sod 4.5 gm/ Sodium Chloride) 100 mls @ 200 mls/hr IV Q6H [facility] Last Infusion: 09/26/21 06:34 Dose: Infused Documented by: Vancomycin HCl 1,000 mg/ (Sodium Chloride) 270 mls @ 270 mls/hr IV Q12H [facility] Last Admin: 09/26/21 07:53 Dose: 270 mls/hr Documented by: Insulin Glargine (Insulin Glargine,Hum.Rec.Anlog 100 Unit/Ml 10 Ml Vial) 35 uni t SUBCUT BEDTIME [facility] Last Admin: 09/25/21 21:32 Dose: 35 unit Documented by: Insulin Human Lispro (Insulin Lispro 100 Unit/Ml 3 Ml Vial) 0 unit SUBCUT QIDACHS [facility]; Protocol Last Admin: 09/26/21 07:47 Dose: Not Given Documented by: Lisinopril (Lisinopril 5 Mg Tablet) 5 mg PO DAILY [facility]; Protocol Morphine Sulfate (Morphine Sulfate 2 Mg/Ml Cartridge) 4 mg IVPUSH Q3H PRN; Protocol PRN Reason: Pain, Mild (Pain Scale 1-3) Last Admin: 09/26/21 05:59 Dose: 4 mg Documented by: Nicotine (Nicotine 21 Mg Patch.Td24) 21 mg TRANSDERMA DAILY [facility] Last Admin: 09/26/21 07:43 Dose: 21 mg Documented by: Ondansetron HCl (Ondansetron Hcl 4 Mg/2 Ml Vial) 4 mg IVPUSH Q8H PRN PRN Reason: Nausea and Vomiting Last Admin: 09/25/21 13:22 Dose: 4 mg Documented by: Oxycodone HCl (Oxycodone Hcl Immed Release 5 Mg Tablet) 5 mg PO Q4H PRN PRN Reason: pain Last Admin: 09/26/21 07:40 Dose: 5 mg Documented by: Pharmacy Consult (Consult Rx Perform Med Rec) 1 each MISCELLANE ONCE PRN PRN Reason: Consult order Pharmacy Consult (Consult Rx Vancomycin Dosing) 1 each MISCELLANE DAILY PRN PRN Reason: Consult order Sodium Chloride (0.9 % Sodium Chloride Flush 3 Ml Syringe) 3 ml IVFLUSH QSHIFT [facility] Last Admin: 09/26/21 07:46 Dose: 3 ml Documented by: Time Spent With Patient Time: Total time spent is greater than 50% in coordination of care (as documented) at patient's floor/unit and/or counseling patient: Time with patient: 15 - 24 minutes Quality Stroke Does the patient have a stroke diagnosis?: No VTE Prior VTE?: No VTE Risk Level:: Medical - moderate - high VTE Device Contraindication: Treatment Not Indicated VTE Drug Contraindication: N/A - Med Ordered
[2021-09-26] MEDS: lisinopriL 5 MG TABLET PO (09:30)
--- NOTE | 2021-09-26 10:47 | P.PNIM_ITS ---
Subjective Subjective Date of Service: 09/26/21 Review of Systems Follow up TMA Still with pain, not getting better appetite ok, able to eat today Physical Exam Vital Signs: Vital Signs: Last Vital Signs Temp 97.5 F 09/26/21 07:33 Pulse 77 09/26/21 09:28 Resp 18 09/26/21 07:33 BP 176/79 H 09/26/21 09:28 Pulse Ox 97 09/26/21 07:33 BMI result Body Mass Index 26.2 Appearing in no acute distress lung sounds are clear to auscultation heart regular rate rhythm, clear S1, S2 positive bowel sounds, abdomen is soft, nontender neuro patient is alert x3, no focal deficits Right foot surgical wound not visualized, surgical dressing intact Objective Data Active Medications Acetaminophen (Acetaminophen 325 Mg Tablet) 650 mg PO Q6H PRN PRN Reason: Pain, Mild (Pain Scale 1-3) Last Admin: 09/25/21 13:22 Dose: 650 mg Documented by: BLAKE Alprazolam (Alprazolam 0.5 Mg Tablet) 2 mg PO BID [facility] Last Admin: 09/26/21 07:42 Dose: 2 mg Documented by: BLAKE Amlodipine Besylate (Amlodipine Besylate 10 Mg Tablet) 10 mg PO DAILY [facility]; Protocol Last Admin: 09/26/21 07:42 Dose: 10 mg Documented by: BLAKE Gabapentin (Gabapentin 400 Mg Capsule) 400 mg PO QID [facility] Last Admin: 09/26/21 07:43 Dose: 400 mg Documented by: BLAKE Heparin Sodium (Porcine) (Heparin Sodium,Porcine 5,000 Unit/Ml Vial) 5,000 unit SUBCUT Q12H [facility] Last Admin: 09/26/21 05:58 Dose: 5,000 unit Documented by: ESPERANZA Piperacillin Sod/Tazobactam (Sod 4.5 gm/ Sodium Chloride) 100 mls @ 200 mls/hr IV Q6H [facility] Last Infusion: 09/26/21 06:34 Dose: 0 mls/hr Documented by: ESPERANZA Vancomycin HCl 1,000 mg/ (Sodium Chloride) 270 mls @ 270 mls/hr IV Q12H [facility] Last Infusion: 09/26/21 08:53 Dose: 0 mls/hr Documented by: BLAKE Insulin Glargine (Insulin Glargine,Hum.Rec.Anlog 100 Unit/Ml 10 Ml Vial) 35 unit SUBCUT BEDTIME [facility] Last Admin: 09/25/21 21:32 Dose: 35 unit Documented by: ESPERANZA Insulin Human Lispro (Insulin Lispro 100 Unit/Ml 3 Ml Vial) 0 unit SUBCUT QIDACHS [facility]; Protocol Last Admin: 09/26/21 07:47 Dose: Not Given Documented by: BLAKE Non-Admin Reason: No Insulin Coverage Lisinopril (Lisinopril 5 Mg Tablet) 5 mg PO DAILY [facility]; Protocol Last Admin: 09/26/21 09:30 Dose: 5 mg Documented by: BLAKE Nicotine (Nicotine 21 Mg Patch.Td24) 21 mg TRANSDERMA DAILY [facility] Last Admin: 09/26/21 07:43 Dose: 21 mg Documented by: BLAKE Ondansetron HCl (Ondansetron Hcl 4 Mg/2 Ml Vial) 4 mg IVPUSH Q8H PRN PRN Reason: Nausea and Vomiting Last Admin: 09/25/21 13:22 Dose: 4 mg Documented by: BLAKE Pharmacy Consult (Consult Rx Perform Med Rec) 1 each MISCELLANE ONCE PRN PRN Reason: Consult order Pharmacy Consult (Consult Rx Vancomycin Dosing) 1 each MISCELLANE DAILY PRN PRN Reason: Consult order Sodium Chloride (0.9 % Sodium Chloride Flush 3 Ml Syringe) 3 ml IVFLUSH QSHIFT [facility] Last Admin: 09/26/21 07:46 Dose: 3 ml Documented by: BLAKE Labs CBC & Chem 7: 09/25/21 05:28 09/26/21 05:55 Labs: Laboratory Results - last 24 hr 09/25/21 09/25/21 09/25/21 11:44 16:20 19:52 Estim Creat Clear Calc Estimated GFR POC Glucose 141 H 166 H 153 H Vancomycin Trough 09/26/21 09/26/21 09/26/21 05:55 05:55 07:31 Estim Creat Clear Calc 98.1 Estimated GFR > 60 POC Glucose 142 H Vancomycin Trough 20.6 H Microbiology Microbiology Results: Microbiology 09/21/21 14:54 Blood Culture - Final Blood - Venous Methicillin Res Staph Aureus Coag negative Staphylococcus 09/24/21 16:00 Blood Culture - Preliminary Blood - Venous No growth after 24 hours. 09/24/21 15:57 Blood Culture - Preliminary Blood - Venous No growth after 24 hours. Assessment and Plan (1) MRSA bacteremia: Status: Acute (2) Osteomyelitis: Status: Acute Plan This is a 51 yo F with a PMH of DM, OUD (snorts heroin), anxiety, who presents to the hospital with R foot pain. Her presentation is consistent with sepsis secondary to osteomyelitis. MRSA bacteremia Related to osteomyelitis 1/2 BCx growing MRSA, repeat blood cultures negative continue IV vancomycin Picc line ordered for monday will need 6 weeks of vancomycin Sepsis secondary to osteomyelitis/septic arthritis of the R 1st TMP joint, Osteo the L Great Toe. Resolved Continue broad spec IV anbitioics with IV vanco s/p TMA ID consult following will need assisted antibiotics for left great toe osteo Medication management HTN bp still elevated not on meds at baseline contiue norvasc 10 mg, lisinopril 5mg added Hypokalemia/hypomagnesemia resolved Diarrhea. Resolved DM HbA1c 8.6 continue lantus, sliding scale diabetic diet Opiate use disorder Addiction medicine consult, methadone not clinically appropriate at this time, consider resuming suboxone discuss on Monday tobacco dependence smoking cessation advised NRT Mood Xanax, zoloft Falls likely due to weakness related to foot issues eventual PT eval she has indicated that she would not want to go to rehab Full Code DVT pptx, subcut. heparin Attending: Dr. Chaudhari Quality Stroke Does the patient have a stroke diagnosis?: No VTE Prior VTE?: No VTE Risk Level:: Medical - moderate - high VTE Device Contraindication: Treatment Not Indicated VTE Drug Contraindication: N/A - Med Ordered
[2021-09-26 11:52] LABS: Glucose, Whole Blood 180 mg/dL (60-115)
[2021-09-26] MEDS: Insulin Lispro 100 UNIT/ML 3 ML VIAL SUBCUT (12:03)
[2021-09-26] MEDS: oxyCODONE HCl Immed Release 5 MG TABLET 10 MG PO ×3 (12:04→21:15)
[2021-09-26 14:06] LABS: Leukocytes Stool Qualitative NEGATIVE (NEGATIVE)
[2021-09-26] MEDS: HYDROmorphone HCl 1 MG/ML SYRINGE IVPUSH ×3 (14:40→23:09)
[2021-09-26 16:58] LABS: Glucose, Whole Blood 133 mg/dL (60-115)
[2021-09-26 19:40] LABS: CDiff Gene PCR NEGATIVE (Negative)
[2021-09-26 20:32] LABS: Glucose, Whole Blood 145 mg/dL (60-115)
[2021-09-26] MEDS: Insulin Glargine,Hum.rec.anlog 100 UNIT/ML 10 ML VIAL 35 UNIT SUBCUT (21:16)
[2021-09-27] MEDS: Piperacillin Sodium/Tazobactam 4.5 GM in 0.9 % Sodium Chloride 100 ML IV ×3 (05:47→18:29)
[2021-09-27] MEDS: HYDROmorphone HCl 1 MG/ML SYRINGE IVPUSH ×4 (05:47→21:08)
[2021-09-27] MEDS: Heparin Sodium,Porcine 5,000 UNIT/ML VIAL 5000 UNIT SUBCUT ×2 (05:50→17:36)
[2021-09-27] MEDS: oxyCODONE HCl Immed Release 5 MG TABLET 10 MG PO ×3 (06:59→18:29)
[2021-09-27 07:19] LABS: INTERNATIONAL NORM RATIO 1.3 (0.9-1.1); Prothrombin Time 15.3 SEC (9.9-13.0)
[2021-09-27 07:22] LABS: Vancomycin Trough 19.7 mcg/mL (10.0-20.0)
[2021-09-27 07:27] LABS: Anion Gap 17 (12-20); Blood Urea Nitrogen 8 mg/dL (9-16); Calcium 8.4 mg/dL (8.4-10.2); Carbon Dioxide 27 mmol/L (22-29); Chloride 101 mmol/L (96-108); Creatinine Clr Calc Pharmacy 92.9; Estimated Glomerular Filt Rate > 60; Glucose Random 76 mg/dL (60-115); Potassium 3.1 mmol/L (3.3-5.1); Sodium 142 mmol/L (135-145)
[2021-09-27 07:28] LABS: Creatinine Clr Calc Pharmacy 95.5; Estimated Glomerular Filt Rate > 60
[2021-09-27 07:40] VITALS: BP 196/76; PULSE 77; RESP 18; TEMP 37; O2SAT 97
--- NOTE | 2021-09-27 08:02 | HE.PHANOTE ---
RE: Vanco Trough returned 09/27@0600 at 19.7. Patient has not cleared enough vanco yet. I decided to hold the AM dose, and restart at 1000 mg q12h tonight. Next trough is 09/28 @1800
[2021-09-27 08:08] LABS: Glucose, Whole Blood 111 mg/dL (60-115)
[2021-09-27] MEDS: 0.9 % Sodium Chloride Flush 3 ML SYRINGE IVFLUSH ×3 (08:23→20:03)
[2021-09-27] MEDS: Gabapentin 400 MG CAPSULE PO ×4 (08:25→21:07)
[2021-09-27] MEDS: lisinopriL 5 MG TABLET PO (08:25)
[2021-09-27] MEDS: Potassium Chloride ER 20 MEQ TAB.ER.PRT 40 MEQ PO (08:25)
[2021-09-27] MEDS: Nicotine 21 MG PATCH.TD24 TRANSDERMA (08:25)
[2021-09-27] MEDS: amLODIPine Besylate 10 MG TABLET PO (08:25)
--- NOTE | 2021-09-27 08:39 | P.PNGS_ITS ---
Subjective Subjective Date of Service: 09/27/21 Interval history: pain level ok no other complaints Physical Exam Vital Signs: Vital Signs: Last Vital Signs Temp 98.6 F 09/27/21 07:40 Pulse 77 09/27/21 07:40 Resp 18 09/27/21 07:40 BP 196/76 H 09/27/21 07:40 Pulse Ox 97 09/27/21 07:40 BMI result Body Mass Index 26.2 Const: General: comfortable and no acute distress Resp: Effort & Inspection: normal respiratory effort Cardio: Rate: regular rate Extrem: Other: TMA stump examined - clean, no pus, sutures intact; left big toe ulcer also dry, appears clean Objective Data Active Medications Acetaminophen (Acetaminophen 325 Mg Tablet) 650 mg PO Q6H PRN PRN Reason: Pain, Mild (Pain Scale 1-3) Last Admin: 09/25/21 13:22 Dose: 650 mg Documented by: BLAKE Amlodipine Besylate (Amlodipine Besylate 10 Mg Tablet) 10 mg PO DAILY [facility]; Protocol Last Admin: 09/27/21 08:25 Dose: 10 mg Documented by: NNEKA Gabapentin (Gabapentin 400 Mg Capsule) 400 mg PO QID [facility] Last Admin: 09/27/21 08:25 Dose: 400 mg Documented by: NNEKA Heparin Sodium (Porcine) (Heparin Sodium,Porcine 5,000 Unit/Ml Vial) 5,000 unit SUBCUT Q12H [facility] Last Admin: 09/27/21 05:50 Dose: 5,000 unit Documented by: ELVIRA Hydromorphone HCl (Hydromorphone Hcl 1 Mg/Ml Syringe) 1 mg IVPUSH Q4H PRN; Protocol PRN Reason: pain Last Admin: 09/27/21 05:47 Dose: 1 mg Documented by: ELVIRA Piperacillin Sod/Tazobactam (Sod 4.5 gm/ Sodium Chloride) 100 mls @ 200 mls/hr IV Q6H [facility] Last Infusion: 09/27/21 06:51 Dose: 0 mls/hr Documented by: ELVIRA Vancomycin HCl 1,000 mg/ (Sodium Chloride) 270 mls @ 270 mls/hr IV Q12H [facility] Insulin Glargine (Insulin Glargine,Hum.Rec.Anlog 100 Unit/Ml 10 Ml Vial) 35 unit SUBCUT BEDTIME [facility] Last Admin: 09/26/21 21:16 Dose: 35 unit Documented by: ELVIRA Insulin Human Lispro (Insulin Lispro 100 Unit/Ml 3 Ml Vial) 0 unit SUBCUT QIDACHS [facility]; Protocol Last Admin: 09/27/21 08:22 Dose: Not Given Documented by: NNEKA Non-Admin Reason: No Insulin Coverage Lisinopril (Lisinopril 5 Mg Tablet) 5 mg PO DAILY [facility]; Protocol Last Admin: 09/27/21 08:25 Dose: 5 mg Documented by: NNEKA Nicotine (Nicotine 21 Mg Patch.Td24) 21 mg TRANSDERMA DAILY [facility] Last Admin: 09/27/21 08:25 Dose: 21 mg Documented by: NNEKA Ondansetron HCl (Ondansetron Hcl 4 Mg/2 Ml Vial) 4 mg IVPUSH Q8H PRN PRN Reason: Nausea and Vomiting Last Admin: 09/25/21 13:22 Dose: 4 mg Documented by: BLAKE Oxycodone HCl (Oxycodone Hcl Immed Release 5 Mg Tablet) 10 mg PO Q4H PRN PRN Reason: pain Last Admin: 09/27/21 06:59 Dose: 10 mg Documented by: ELVIRA Pharmacy Consult (Consult Rx Perform Med Rec) 1 each MISCELLANE ONCE PRN PRN Reason: Consult order Pharmacy Consult (Consult Rx Vancomycin Dosing) 1 each MISCELLANE DAILY PRN PRN Reason: Consult order Potassium Chloride (Potassium Chloride Er 20 Meq Tab.Er.Prt) 40 meq PO DAILY [facility] Last Admin: 09/27/21 08:25 Dose: 40 meq Documented by: NNEKA Sodium Chloride (0.9 % Sodium Chloride Flush 3 Ml Syringe) 3 ml IVFLUSH QSHIFT [facility] Last Admin: 09/27/21 08:23 Dose: 3 ml Documented by: NNEKA Labs CBC & Chem 7: 09/25/21 05:28 09/27/21 06:03 Labs: Laboratory Results - last 24 hr 09/26/21 09/26/21 09/26/21 11:44 13:26 13:26 PT INR Anion Gap Estim Creat Clear Calc Estimated GFR POC Glucose 180 H Random Glucose Calcium Stool Leukocytes, Qual NEGATIVE Vancomycin Trough C. difficile Tox B Gene NEGATIVE 0209/26/21 09/27/21 16:53 19:48 06:03 PT INR Anion Gap Estim Creat Clear Calc 95.5 Estimated GFR > 60 POC Glucose 133 H 145 H Random Glucose Calcium Stool Leukocytes, Qual Vancomycin Trough C. difficile Tox B Gene 09/27/21 09/27/21 09/27/21 06:03 06:03 06:03 PT 15.3 H INR 1.3 H Anion Gap 17 Estim Creat Clear Calc 92.9 Estimated GFR > 60 POC Glucose Random Glucose 76 Calcium 8.4 Stool Leukocytes, Qual Vancomycin Trough 19.7 C. difficile Tox B Gene 09/27/21 07:39 PT INR Anion Gap Estim Creat Clear Calc Estimated GFR POC Glucose 111 Random Glucose Calcium Stool Leukocytes, Qual Vancomycin Trough C. difficile Tox B Gene Microbiology Microbiology Results: Microbiology 09/24/21 16:00 Blood Culture - Preliminary Blood - Venous No growth after 48 hours. 09/24/21 15:57 Blood Culture - Preliminary Blood - Venous No growth after 48 hours. 09/21/21 14:54 Blood Culture - Final Blood - Venous No growth after 5 days. 09/21/21 14:54 Blood Culture - Final Blood - Venous Methicillin Res Staph Aureus Coag negative Staphylococcus Procedures Date of Service Date of Service: 09/27/21 Progress Note: A&P Assessment and plan (1) Status post transmetatarsal amputation of right foot: Status: Acute Assessment and Plan: dressings changed incision clean continue wound care left big toe ulcer seems healing antibiotics awaiting PICC line - there is concern about this in view of drug abuse; pt says she has not used drugs in 4 weeks and that family will be monitoring her for this Fall Risk Details Current Medications: Current Medications Acetaminophen (Acetaminophen 325 Mg Tablet) 650 mg PO Q6H PRN PRN Reason: Pain, Mild (Pain Scale 1-3) Last Admin: 09/25/21 13:22 Dose: 650 mg Documented by: Amlodipine Besylate (Amlodipine Besylate 10 Mg Tablet) 10 mg PO DAILY [facility]; Protocol Last Admin: 09/27/21 08:25 Dose: 10 mg Documented by: Gabapentin (Gabapentin 400 Mg Capsule) 400 mg PO QID [facility] Last Admin: 09/27/21 08:25 Dose: 400 mg Documented by: Heparin Sodium (Porcine) (Heparin Sodium,Porcine 5,000 Unit/Ml Vial) 5,000 unit SUBCUT Q12H [facility] Last Admin: 09/27/21 05:50 Dose: 5,000 unit Documented by: Hydromorphone HCl (Hydromorphone Hcl 1 Mg/Ml Syringe) 1 mg IVPUSH Q4H PRN; Protocol PRN Reason: pain Last Admin: 09/27/21 05:47 Dose: 1 mg Documented by: Piperacillin Sod/Tazobactam (Sod 4.5 gm/ Sodium Chloride) 100 mls @ 200 mls/hr IV Q6H [facility] Last Infusion: 09/27/21 06:51 Dose: Infused Documented by: Vancomycin HCl 1,000 mg/ (Sodium Chloride) 270 mls @ 270 mls/hr IV Q12H [facility] Insulin Glargine (Insulin Glargine,Hum.Rec.Anlog 100 Unit/Ml 10 Ml Vial) 35 unit SUBCUT BEDTIME [facility] Last Admin: 09/26/21 21:16 Dose: 35 unit Documented by: Insulin Human Lispro (Insulin Lispro 100 Unit/Ml 3 Ml Vial) 0 unit SUBCUT QIDACHS [facility]; Protocol Last Admin: 09/27/21 08:22 Dose: Not Given Documented by: Lisinopril (Lisinopril 5 Mg Tablet) 5 mg PO DAILY [facility]; Protocol Last Admin: 09/27/21 08:25 Dose: 5 mg Documented by: Nicotine (Nicotine 21 Mg Patch.Td24) 21 mg TRANSDERMA DAILY [facility] Last Admin: 09/27/21 08:25 Dose: 21 mg Documented by: Ondansetron HCl (Ondansetron Hcl 4 Mg/2 Ml Vial) 4 mg IVPUSH Q8H PRN PRN Reason: Nausea and Vomiting Last Admin: 09/25/21 13:22 Dose: 4 mg Documented by: Oxycodone HCl (Oxycodone Hcl Immed Release 5 Mg Tablet) 10 mg PO Q4H PRN PRN Reason: pain Last Admin: 09/27/21 06:59 Dose: 10 mg Documented by: Pharmacy Consult (Consult Rx Perform Med Rec) 1 each MISCELLANE ONCE PRN PRN Reason: Consult order Pharmacy Consult (Consult Rx Vancomycin Dosing) 1 each MISCELLANE DAILY PRN PRN Reason: Consult order Potassium Chloride (Potassium Chloride Er 20 Meq Tab.Er.Prt) 40 meq PO DAILY [facility] Last Admin: 09/27/21 08:25 Dose: 40 meq Documented by: Sodium Chloride (0.9 % Sodium Chloride Flush 3 Ml Syringe) 3 ml IVFLUSH QSHIFT [facility] Last Admin: 09/27/21 08:23 Dose: 3 ml Documented by: Time Spent With Patient Time: Total time spent is greater than 50% in coordination of care (as documented) at patient's floor/unit and/or counseling patient: Time with patient: 15 - 24 minutes Quality Stroke Does the patient have a stroke diagnosis?: No VTE Prior VTE?: No VTE Risk Level:: Medical - moderate - high VTE Device Contraindication: Treatment Not Indicated VTE Drug Contraindication: N/A - Med Ordered
--- NOTE | 2021-09-27 10:29 | P.PNIM_ITS ---
Subjective Subjective Date of Service: 09/28/21 Review of Systems Follow up TMA Still with pain, better today appetite ok, able to eat today Physical Exam Vital Signs: Vital Signs: Last Vital Signs Temp 98.6 F 09/27/21 07:40 Pulse 77 09/27/21 07:40 Resp 18 09/27/21 07:40 BP 196/76 H 09/27/21 07:40 Pulse Ox 97 09/27/21 07:40 BMI result Body Mass Index 26.2 Appearing in no acute distress lung sounds are clear to auscultation heart regular rate rhythm, clear S1, S2 positive bowel sounds, abdomen is soft, nontender neuro patient is alert x3, no focal deficits ?Right foot surgical wound not visualized, surgical dressing intact Objective Data Active Medications Acetaminophen (Acetaminophen 325 Mg Tablet) 650 mg PO Q6H PRN PRN Reason: Pain, Mild (Pain Scale 1-3) Last Admin: 09/25/21 13:22 Dose: 650 mg Documented by: BLAKE Amlodipine Besylate (Amlodipine Besylate 10 Mg Tablet) 10 mg PO DAILY [facility]; Protocol Last Admin: 09/27/21 08:25 Dose: 10 mg Documented by: NNEKA Gabapentin (Gabapentin 400 Mg Capsule) 400 mg PO QID [facility] Last Admin: 09/27/21 08:25 Dose: 400 mg Documented by: NNEKA Heparin Sodium (Porcine) (Heparin Sodium,Porcine 5,000 Unit/Ml Vial) 5,000 unit SUBCUT Q12H [facility] Last Admin: 09/27/21 05:50 Dose: 5,000 unit Documented by: ELVIRA Hydromorphone HCl (Hydromorphone Hcl 1 Mg/Ml Syringe) 1 mg IVPUSH Q4H PRN; Protocol PRN Reason: pain Last Admin: 09/27/21 10:10 Dose: 1 mg Documented by: NNEKA Piperacillin Sod/Tazobactam (Sod 4.5 gm/ Sodium Chloride) 100 mls @ 200 mls/hr IV Q6H [facility] Last Infusion: 09/27/21 06:51 Dose: 0 mls/hr Documented by: ELVIRA Vancomycin HCl 1,000 mg/ (Sodium Chloride) 270 mls @ 270 mls/hr IV Q12H [facility] Insulin Glargine (Insulin Glargine,Hum.Rec.Anlog 100 Unit/Ml 10 Ml Vial) 35 un it SUBCUT BEDTIME [facility] Last Admin: 09/26/21 21:16 Dose: 35 unit Documented by: ELVIRA Insulin Human Lispro (Insulin Lispro 100 Unit/Ml 3 Ml Vial) 0 unit SUBCUT QIDACHS [facility]; Protocol Last Admin: 09/27/21 08:22 Dose: Not Given Documented by: NNEKA Non-Admin Reason: No Insulin Coverage Lisinopril (Lisinopril 5 Mg Tablet) 5 mg PO DAILY [facility]; Protocol Last Admin: 09/27/21 08:25 Dose: 5 mg Documented by: NNEKA Nicotine (Nicotine 21 Mg Patch.Td24) 21 mg TRANSDERMA DAILY [facility] Last Admin: 09/27/21 08:25 Dose: 21 mg Documented by: NNEKA Ondansetron HCl (Ondansetron Hcl 4 Mg/2 Ml Vial) 4 mg IVPUSH Q8H PRN PRN Reason: Nausea and Vomiting Last Admin: 09/25/21 13:22 Dose: 4 mg Documented by: BLAKE Oxycodone HCl (Oxycodone Hcl Immed Release 5 Mg Tablet) 10 mg PO Q4H PRN PRN Reason: pain Last Admin: 09/27/21 06:59 Dose: 10 mg Documented by: ELVIRA Pharmacy Consult (Consult Rx Perform Med Rec) 1 each MISCELLANE ONCE PRN PRN Reason: Consult order Pharmacy Consult (Consult Rx Vancomycin Dosing) 1 each MISCELLANE DAILY PRN PRN Reason: Consult order Potassium Chloride (Potassium Chloride Er 20 Meq Tab.Er.Prt) 40 meq PO DAILY [facility] Last Admin: 09/27/21 08:25 Dose: 40 meq Documented by: NNEKA Sodium Chloride (0.9 % Sodium Chloride Flush 3 Ml Syringe) 3 ml IVFLUSH QSHIFT [facility] Last Admin: 09/27/21 08:23 Dose: 3 ml Documented by: NNEKA Labs CBC & Chem 7: 09/25/21 05:28 09/28/21 04:12 Labs: Laboratory Results - last 24 hr 09/26/21 09/26/21 09/26/21 11:44 13:26 13:26 PT INR Anion Gap Estim Creat Clear Calc Estimated GFR POC Glucose 180 H Random Glucose Calcium Stool Leukocytes, Qual NEGATIVE Vancomycin Trough C. difficile Tox B Gene NEGATIVE 09/26/21 09/26/21 09/27/21 16:53 19:48 06:03 PT INR Anion Gap Estim Creat Clear Calc 95.5 Estimated GFR > 60 POC Glucose 133 H 145 H Random Glucose Calcium Stool Leukocytes, Qual Vancomycin Trough C. difficile Tox B Gene 09/27/21 09/27/21 09/27/21 06:03 06:03 06:03 PT 15.3 H INR 1.3 H Anion Gap 17 Estim Creat Clear Calc 92.9 Estimated GFR > 60 POC Glucose Random Glucose 76 Calcium 8.4 Stool Leukocytes, Qual Vancomycin Trough 19.7 C. difficile Tox B Gene 09/27/21 07:39 PT INR Anion Gap Estim Creat Clear Calc Estimated GFR POC Glucose 111 Random Glucose Calcium Stool Leukocytes, Qual Vancomycin Trough C. difficile Tox B Gene Microbiology Microbiology Results: Microbiology 09/26/21 13:26 Stool Culture - Preliminary Stool Culture in progress. 09/24/21 16:00 Blood Culture - Preliminary Blood - Venous No growth after 48 hours. 09/24/21 15:57 Blood Culture - Preliminary Blood - Venous No growth after 48 hours. 09/21/21 14:54 Blood Culture - Final Blood - Venous No growth after 5 days. 09/21/21 14:54 Blood Culture - Final Blood - Venous Methicillin Res Staph Aureus Coag negative Staphylococcus Assessment and Plan (1) MRSA bacteremia: Status: Acute (2) Osteomyelitis: Status: Acute Plan This is a 51 yo F with a PMH of DM, OUD (snorts heroin), anxiety, who presents to the hospital with R foot pain. Her presentation is consistent with sepsis secondary to osteomyelitis. MRSA bacteremia Related to osteomyelitis 1/2 BCx growing MRSA, repeat blood cultures negative continue IV vancomycin Picc line ordered will need 6 weeks of vancomycin Sepsis secondary to osteomyelitis/septic arthritis of the R 1st TMP joint, Osteo the L Great Toe. Resolved Continue broad spec IV anbitioics with IV vanco s/p TMA ID consult following will need assisted antibiotics for left great toe osteo Medication management HTN bp still elevated not on meds at baseline contiue norvasc 10 mg, lisinopril 5mg added Hypokalemia/hypomagnesemia resolved Diarrhea. Resolved DM HbA1c 8.6 continue lantus, sliding scale diabetic diet Opiate use disorder Addiction medicine consult, methadone not clinically appropriate at this time, consider resuming suboxone discuss on Monday tobacco dependence smoking cessation advised NRT Mood Xanax, zoloft Falls likely due to weakness related to foot issues eventual PT eval she has indicated that she would not want to go to rehab Full Code DVT pptx, subcut. heparin Attending: Dr. Garcia Quality Stroke Does the patient have a stroke diagnosis?: No VTE Prior VTE?: No VTE Risk Level:: Medical - moderate - high VTE Device Contraindication: Treatment Not Indicated VTE Drug Contraindication: N/A - Med Ordered
[2021-09-27] MEDS: ALPRAZolam 0.5 MG TABLET 2 MG PO ×2 (10:49→21:08)
[2021-09-27 11:36] VITALS: BP 142/72; PULSE 77; RESP 18; TEMP 37; O2SAT 97
[2021-09-27 12:05] LABS: Glucose, Whole Blood 190 mg/dL (60-115)
[2021-09-27] MEDS: Insulin Lispro 100 UNIT/ML 3 ML VIAL SUBCUT (12:51)
[2021-09-27 15:22] VITALS: BP 159/75; PULSE 75; RESP 17; TEMP 37.3; O2SAT 96
[2021-09-27 16:50] LABS: Glucose, Whole Blood 113 mg/dL (60-115)
[2021-09-27 19:28] VITALS: BP 149/70; PULSE 77; RESP 18; TEMP 36.9; O2SAT 97
[2021-09-27] MEDS: vancomycin HCL 1,000 MG in 0.9 % Sodium Chloride 250 ML 270 MG IV (20:03)
[2021-09-27] MEDS: Insulin Glargine,Hum.rec.anlog 100 UNIT/ML 10 ML VIAL 35 UNIT SUBCUT (21:07)
[2021-09-27 23:22] VITALS: BP 128/65; PULSE 98; RESP 17; TEMP 36.4; O2SAT 98
[2021-09-28] VITALS (7 sets, daily range): BP systolic 90–185; BP diastolic 51–88; PULSE 67–80; RESP 16–85; TEMP 36.4–36.9; O2SAT 93–97
[2021-09-28] MEDS: Piperacillin Sodium/Tazobactam 4.5 GM in 0.9 % Sodium Chloride 100 ML IV ×3 (00:44→13:17)
[2021-09-28] MEDS: HYDROmorphone HCl 1 MG/ML SYRINGE IVPUSH ×4 (02:59→22:02)
[2021-09-28 05:08] LABS: Creatinine Clr Calc Pharmacy 91.7; Estimated Glomerular Filt Rate > 60
[2021-09-28] MEDS: Heparin Sodium,Porcine 5,000 UNIT/ML VIAL 5000 UNIT SUBCUT ×2 (06:20→17:00)
[2021-09-28] MEDS: oxyCODONE HCl Immed Release 5 MG TABLET 10 MG PO ×3 (06:27→20:24)
[2021-09-28 07:27] LABS: Glucose, Whole Blood 88 mg/dL (60-115)
[2021-09-28] MEDS: Nicotine 21 MG PATCH.TD24 TRANSDERMA (07:58)
[2021-09-28] MEDS: vancomycin HCL 1,000 MG in 0.9 % Sodium Chloride 250 ML 270 MG IV (07:58)
[2021-09-28] MEDS: lisinopriL 5 MG TABLET PO (07:59)
[2021-09-28] MEDS: Gabapentin 400 MG CAPSULE PO ×4 (07:59→20:24)
[2021-09-28] MEDS: amLODIPine Besylate 10 MG TABLET PO (07:59)
[2021-09-28] MEDS: Potassium Chloride ER 20 MEQ TAB.ER.PRT 40 MEQ PO (08:00)
[2021-09-28] MEDS: ALPRAZolam 0.5 MG TABLET 2 MG PO ×2 (08:03→20:23)
--- NOTE | 2021-09-28 09:14 | P.PNIM_ITS ---
Subjective Subjective Date of Service: 09/28/21 Review of Systems Follow up TMA Still with pain, better today appetite ok, able to eat today Physical Exam Vital Signs: Vital Signs: Last Vital Signs Temp 98.0 F 09/28/21 07:31 Pulse 73 09/28/21 07:31 Resp 20 09/28/21 07:31 BP 185/88 H 09/28/21 07:31 Pulse Ox 97 09/28/21 07:31 BMI result Body Mass Index 26.2 Appearing in no ac [place] distress ?lung sounds are clear to auscultation ?h eart regular rate rhythm, clear? S1, S2 ?positive wilver l sounds, abdomen is soft, nontender ?neuro patient is alert x3, no foca l deficits ?Right foot surgical woun d not visualized, surgical dressing intact Objective Data Active Medications Acetaminophen (Acetaminophen 325 Mg Tablet) 650 mg PO Q6H PRN PRN Reason: Pain, Mild (Pain Scale 1-3) Last Admin: 09/25/21 13:22 Dose: 650 mg Documented by: BLAKE Alprazolam (Alprazolam 0.5 Mg Tablet) 1 mg PO DAILY PRN PRN Reason: Anxiety Alprazolam (Alprazolam 0.5 Mg Tablet) 2 mg PO BID PRN PRN Reason: anxiety Last Admin: 09/28/21 08:03 Dose: 2 mg Documented by: ERICA Amlodipine Besylate (Amlodipine Besylate 10 Mg Tablet) 10 mg PO DAILY [facility]; Protocol Last Admin: 09/28/21 07:59 Dose: 10 mg Documented by: ERICA Gabapentin (Gabapentin 400 Mg Capsule) 400 mg PO QID [facility] Last Admin: 09/28/21 07:59 Dose: 400 mg Documented by: ERICA Heparin Sodium (Porcine) (Heparin Sodium,Porcine 5,000 Unit/Ml Vial) 5,000 unit SUBCUT Q12H [facility] Last Admin: 09/28/21 06:20 Dose: 5,000 unit Documented by: CASTILM Hydromorphone HCl (Hydromorphone Hcl 1 Mg/Ml Syringe) 1 mg IVPUSH Q4H PRN; Protocol PRN Reason: pain Last Admin: 09/28/21 08:18 Dose: 1 mg Documented by: ERICA Piperacillin Sod/Tazobactam (Sod 4.5 gm/ Sodium Chloride) 100 mls @ 200 mls/hr IV Q6H [facility] Last Infusion: 09/28/21 06:58 Dose: 200 mls/hr Documented by: ERICA Vancomycin HCl 1,000 mg/ (Sodium Chloride) 270 mls @ 270 mls/hr IV Q12H [facility] Last Admin: 09/28/21 07:58 Dose: 270 mls/hr Documented by: ERICA Insulin Glargine (Insulin Glargine,Hum.Rec.Anlog 100 Unit/Ml 10 Ml Vial) 35 unit SUBCUT BEDTIME [facility] Last Admin: 09/27/21 21:07 Dose: 35 unit Documented by: NIKI Insulin Human Lispro (Insulin Lispro 100 Unit/Ml 3 Ml Vial) 0 unit SUBCUT QIDACHS [facility]; Protocol Last Admin: 09/28/21 07:27 Dose: Not Given Documented by: ERICA Non-Admin Reason: No Insulin Coverage Lisinopril (Lisinopril 5 Mg Tablet) 5 mg PO DAILY [facility]; Protocol Last Admin: 09/28/21 07:59 Dose: 5 mg Documented by: ERICA Nicotine (Nicotine 21 Mg Patch.Td24) 21 mg TRANSDERMA DAILY [facility] Last Admin: 09/28/21 07:58 Dose: 21 mg Documented by: ERICA Ondansetron HCl (Ondansetron Hcl 4 Mg/2 Ml Vial) 4 mg IVPUSH Q8H PRN PRN Reason: Nausea and Vomiting Last Admin: 09/25/21 13:22 Dose: 4 mg Documented by: BLAKE Oxycodone HCl (Oxycodone Hcl Immed Release 5 Mg Tablet) 10 mg PO Q4H PRN PRN Reason: pain Last Admin: 09/28/21 06:27 Dose: 10 mg Documented by: NIKI Pharmacy Consult (Consult Rx Perform Med Rec) 1 each MISCELLANE ONCE PRN PRN Reason: Consult order Pharmacy Consult (Consult Rx Vancomycin Dosing) 1 each MISCELLANE DAILY PRN PRN Reason: Consult order Potassium Chloride (Potassium Chloride Er 20 Meq Tab.Er.Prt) 40 meq PO DAILY [facility] Last Admin: 09/28/21 08:00 Dose: 40 meq Documented by: ERICA Sodium Chloride (0.9 % Sodium Chloride Flush 3 Ml Syringe) 3 ml IVFLUSH QSHIFT [facility] Last Admin: 09/27/21 20:03 Dose: 3 ml Documented by: NIKI Labs CBC & Chem 7: 09/25/21 05:28 09/28/21 04:12 Labs: Laboratory Results - last 24 hr 09/27/21 09/27/21 09/28/21 11:36 15:27 04:12 Estim Creat Clear Calc 91.7 Estimated GFR > 60 POC Glucose 190 H 113 09/28/21 07:18 Estim Creat Clear Calc Estimated GFR POC Glucose 88 Microbiology Microbiology Results: Microbiology 09/26/21 13:26 Stool Culture - Preliminary Stool Yeast Assessment and Plan (1) MRSA bacteremia: Status: Acute (2) Osteomyelitis: Status: Acute Plan This is a 51 yo F with a PMH of DM, OUD (snorts heroin), anxiety, who presents to the hospital with R foot pain. Her presentation is consistent with sepsis secondary to osteomyelitis. MRSA bacteremia Related to osteomyelitis 1/2 BCx growing MRSA, repeat blood cultures negative continue IV vancomycin Picc line ordered will need 6 weeks of vancomycin Sepsis secondary to osteomyelitis/septic arthritis of the R 1st TMP joint, Osteo the L Great Toe. Resolved Continue broad spec IV anbitioics with IV vanco s/p TMA ID consult following will need fci antibiotics for left great toe osteo Medication management HTN bp still elevated not on meds at baseline continue norvasc 10 mg, lisinopril 5mg added Hypokalemia/hypomagnesemia resolved Diarrhea. Resolved DM HbA1c 8.6 continue lantus, sliding scale diabetic diet Opiate use disorder See event note from 09/28/21 Addiction medicine consult, methadone not clinically appropriate at this time, consider resuming suboxone discuss on Monday tobacco dependence smoking cessation advised NRT Mood Xanax, zoloft Falls likely due to weakness related to foot issues eventual PT eval she has indicated that she would not want to go to rehab Full Code DVT pptx, subcut. heparin Attending: Dr. Garcia Quality Stroke Does the patient have a stroke diagnosis?: No VTE Prior VTE?: No VTE Risk Level:: Medical - moderate - high VTE Device Contraindication: Treatment Not Indicated VTE Drug Contraindication: N/A - Med Ordered
[2021-09-28] MEDS: 0.9 % Sodium Chloride Flush 3 ML SYRINGE IVFLUSH ×2 (10:35→17:01)
--- NOTE | 2021-09-28 11:03 | PC.NURSE ---
Skin/wound assessment completed. Patient has a diabetic ulcer to left great toe-silver alginate applied to wound bed covered with gauze. Right foot has an a transmetatarsal amp with sutures- Xeroform applied covered with non woven gauze and roll gauze. Patient has MASD bilateral inner thighs- Triad applied right covered with foam dressing the left with Tegaderm.
[2021-09-28 11:08] LABS: Glucose, Whole Blood 124 mg/dL (60-115)
[2021-09-28 11:12] LABS: Glucose, Whole Blood 180 mg/dL (60-115)
--- NOTE | 2021-09-28 11:44 | PM.EVENT ---
Event Note Date of Service: 09/28/21 Event Note: At 11am this morning RN called me to the patients room with concern over change in mental status. Apparently the patients sister had just left and the patient seemed more sleepy and not as awake as she was and her blood pressure went from 180's to 90's SBP. She was confronted by myself and RN and initally she said she was given a 10mg oxycodone by her sister. She was holding a small black bag and was told that security personal would have to search her belongings to ensure that she did not have anymore drugs on her person. Security was able to get the bag from the patient and a small white bundle was found along with a small straw. Apparently there was 40 bags of heroine noted and the patient did confess. She was upset and emotional about being caught. She was told that the search and seizure of the drugs was necessary to ensure her safety. She was also informed that she would not be allowed to have visits at this point and she will be notified if that changes (per hospital policy).
--- NOTE | 2021-09-28 11:55 | MHC.RECOVRN ---
Met with pt to follow up regarding MOUD. Pt continues to decline Suboxone, states I was wonder woman on it for a couple years and then it made me suicidal. Pt adamantly requesting methadone. T/w explained reasoning to pt why it is not appropriate at this time. Pt then stated Well I lied a little. I've been using 4 bundles. Pt does not appear in withdrawal at this time, resting comfortably in bed and talking on the phone. Discussed with Giselle Barroso NP as well as SHANIQUE.
--- NOTE | 2021-09-28 12:59 | PC.NURSE ---
AT APPROX 1030 PT WAS FOUND TO BE SOMNOLENT HAVING DIFFICULTY STAYING AWAKE. THIS CHANGE IN BEHAVIOR OCCURRED AFTER A BRIEF VISIT FROM HER SISTER WHO DANA HER A SMALL BLACK PLASTIC BAG. THERE WAS NOTED DROP IN HER BP 91/56. THIS CHANGE IN BEHAVIOR WAS BROUGHT TO THE ATTENTION OF SRINIVAS CHAUDHRY, AT WHICH TIME WE BOTH QUESTIONED THE PT. SHE DENIED TAKING ANY MEDICATION FROM OUTSIDE THE HOSPITAL. EVENTUALL SHE ADMITTED TO TAKES AN OXYCODONE TAKE HER SISTER BROUGHT HER. SECURITY WAS CALLED, PT WAS SEARCHED, SEVERAL BGS OF HERIONE WERE FOUND.
--- NOTE | 2021-09-28 13:58 | P.CDIC_ITS ---
CDI Concurrent Query Documentation Clarification: PHYSICIAN'S DOCUMENTATION REQUEST Date of Query: 09/28/21 0679 Patient Name: Marilou Siddiqui Admit Date: 09/21/21 Dear Doctor, A review of the medical record indicates additional documentation may be needed. Please review below and update the documentation accordingly. Clinical Indicators: Documentation on 09/28/21 indicates Osteomyelitis. Risk Factors/Clinical Indicators/Treatments Per MD progress note 09/28/21: presentation is consistent with sepsis secondary to osteomyelitis. Based on the above, please clarify in the Progress Notes further specificity regarding the type of Osteomyelitis. Also include specific site with laterality and known or suspected infectious agent: * Acute osteomyelitis * Subacute osteomyelitis * Chronic osteomyelitis * Other (please specify) * Unable to determine Use of terms such as suspected, likely, concern for, or probable (associated with a specific diagnosis that is being evaluated, monitored, or treated as if it exists) are acceptable and can be coded in the inpatient setting, when documented at the time of discharge. Thank you, Jahaira Borjas RN Extension: [phone] Please use your independent medical judgment in providing your response. THIS QUERY IS PART OF THE PERMANENT MEDICAL RECORD Provider Response: Other Other Diagnosis: acute osteomyelitis
--- NOTE | 2021-09-28 14:48 | MHC.CM.PN ---
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
--- NOTE | 2021-09-28 15:39 | PM.EVENT ---
Event Note Date of Service: 09/28/21 Event Note: Dressings have been changed by the wound care nurse earlier Patient was also noted to have bags of heroin in her possession Apparently brought in by her sister who came to visit She is currently having PICC line placed otherwise doing well Continue wound care daily dressing changes, dry gauze and wrap with Kerlix No weight-bearing on TMA stump on right
--- NOTE | 2021-09-28 16:04 | MHC.CM.PN ---
LATE ENTRY FOR 11:15AM, CM RECEIVED CALL FROM HOSPITALIST REPORTING PT HAD APPROX 40 BAGS OF HEROIN BROUGHT IN FROM VISITOR WHO PT CLAIMED WAS HER MOTHER AND THEN SAID IT WAS HER SISTER, PER NSG PT'S SON REPORTS IT WAS A FRIEND , PER HOSPITALIST CAMERA PLACED IN ROOM AND SHE WILL NOT HAVE VISITORS D/T HIGH RISK W/PICC LINE, PT CURRENTLY OFF UNIT FOR PICC PLACEMENT AT TIME OF THIS NOTE.
--- NOTE | 2021-09-28 16:45 | PM.EVENT ---
Event Note Date of Service: 09/28/21 Event Note: Attempted to meet with patient today. Was unable to do so due to AMS, related to recent substance use (this am), will attempt to meet with her tomorrow.
[2021-09-28 16:48] LABS: Glucose, Whole Blood 249 mg/dL (60-115)
--- NOTE | 2021-09-28 16:48 | P.PICC_ITS ---
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 Following completion of [place] Protocol the skin and soft tissues were anesthetized with 1% Lidocaine plain. Using ultrasound guidance, [right basilic] vein access was obtained on first attempt. Over an 0.018 wire through peel-away sheath, a [4FR single lumen] PICC line was positioned. Catheter length is [37 CM] internal length, [3 CM] external length, for a total trimmed length of 40 CM]. The procedure was performed in [S272]. Tip verification was performed by Caio Mclean with Sherlock 3CG. Tip located in SVC. Ultrasound was used to document vein patency and for needle entry. A formal ultrasound picture and cardiac rhythm strip was recorded. Vascular Diamond Setter Apprentice has released the line for use and it is currently dressed with a StatLock, Tegaderm, and CHG disc. Verification has been performed for blood return and line patency. Arm Circumference: [26.5 CM] Equipment: [[place] Approach Power PICC Solo] Catheter Type: [4FR Single Lumen PICC] Lot #: [[id number]]
[2021-09-28] MEDS: Insulin Lispro 100 UNIT/ML 3 ML VIAL SUBCUT (17:00)
--- NOTE | 2021-09-28 17:00 | PC.NURSE ---
Okay to place PICC line without Rehab facility bed per Emi Murray, counter clerk [employer]
[2021-09-28 18:44] LABS: Vancomycin Random 20.2 mcg/mL (15-20)
--- NOTE | 2021-09-28 18:59 | HE.PHANOTE ---
VANCOMYCIN ADDENDUM: Trough came back at 20.2. I will hold the 09/28 @ 2000 dose and change the regimen to 750 mg Q12H to start tomorrow 09/29 @ 0800. Will continue to monitor renal function and next trough will be drawn on 09/30 @ 0600.
[2021-09-28 20:03] LABS: Glucose, Whole Blood 145 mg/dL (60-115)
[2021-09-28] MEDS: Insulin Glargine,Hum.rec.anlog 100 UNIT/ML 10 ML VIAL 35 UNIT SUBCUT (20:25)
[2021-09-29] VITALS (8 sets, daily range): BP systolic 149–183; BP diastolic 70–85; PULSE 65–86; RESP 16–18; TEMP 36.4–37.8; O2SAT 92–98
[2021-09-29] MEDS: HYDROmorphone HCl 1 MG/ML SYRINGE IVPUSH ×5 (01:50→21:55)
[2021-09-29] MEDS: 0.9 % Sodium Chloride Flush 3 ML SYRINGE IVFLUSH ×3 (01:50→16:56)
[2021-09-29] MEDS: Heparin Sodium,Porcine 5,000 UNIT/ML VIAL 5000 UNIT SUBCUT ×2 (06:17→16:56)
[2021-09-29 06:28] LABS: Creatinine Clr Calc Pharmacy 72.1; Estimated Glomerular Filt Rate 60
[2021-09-29 07:44] LABS: Glucose, Whole Blood 153 mg/dL (60-115)
[2021-09-29] MEDS: Insulin Lispro 100 UNIT/ML 3 ML VIAL SUBCUT ×4 (08:05→21:56)
[2021-09-29] MEDS: oxyCODONE HCl Immed Release 5 MG TABLET 10 MG PO ×2 (08:06→14:03)
[2021-09-29] MEDS: amLODIPine Besylate 10 MG TABLET PO (08:07)
[2021-09-29] MEDS: lisinopriL 5 MG TABLET PO (08:07)
[2021-09-29] MEDS: ALPRAZolam 0.5 MG TABLET 2 MG PO ×2 (08:07→21:48)
[2021-09-29] MEDS: Potassium Chloride ER 20 MEQ TAB.ER.PRT 40 MEQ PO (08:07)
[2021-09-29] MEDS: Gabapentin 400 MG CAPSULE PO ×4 (08:08→21:48)
[2021-09-29] MEDS: Heparin Sodium,Porcine Flush 50 UNITS/5 ML SYRINGE IVFLUSH ×2 (08:08→16:56)
[2021-09-29] MEDS: Nicotine 21 MG PATCH.TD24 TRANSDERMA (08:08)
[2021-09-29 08:47] LABS: Vancomycin Random 11.8 mcg/mL (15-20)
--- NOTE | 2021-09-29 08:55 | P.PNGS_ITS ---
Subjective Subjective Date of Service: 09/29/21 Interval history: No new complaints Says she is sorry for events from yesterday Physical Exam Vital Signs: Vital Signs: Last Vital Signs Temp 97.5 F 09/29/21 07:27 Pulse 73 09/29/21 07:27 Resp 18 09/29/21 07:27 BP 162/76 H 09/29/21 07:27 Pulse Ox 98 09/29/21 07:27 BMI result Body Mass Index 26.2 Const: General: comfortable and no acute distress Resp: Effort & Inspection: normal respiratory effort Extrem: Other: Transmetatarsal amputation stump healing well, clean, sutures intact, no discharge, no pus, edges viable Objective Data Active Medications Acetaminophen (Acetaminophen 325 Mg Tablet) 650 mg PO Q6H PRN PRN Reason: Pain, Mild (Pain Scale 1-3) Last Admin: 09/25/21 13:22 Dose: 650 mg Documented by: BLAKE Alprazolam (Alprazolam 0.5 Mg Tablet) 1 mg PO DAILY PRN PRN Reason: Anxiety Alprazolam (Alprazolam 0.5 Mg Tablet) 2 mg PO BID PRN PRN Reason: anxiety Last Admin: 09/29/21 08:07 Dose: 2 mg Documented by: ERICA Amlodipine Besylate (Amlodipine Besylate 10 Mg Tablet) 10 mg PO DAILY [facility]; Protocol Last Admin: 09/29/21 08:07 Dose: 10 mg Documented by: ERICA Gabapentin (Gabapentin 400 Mg Capsule) 400 mg PO QID [facility] Last Admin: 09/29/21 08:08 Dose: 400 mg Documented by: ERICA Heparin Sodium (Porcine) (Heparin Sodium,Porcine 5,000 Unit/Ml Vial) 5,000 unit SUBCUT Q12H [facility] Last Admin: 09/29/21 06:17 Dose: 5,000 unit Documented by: RICHARUMWILDA Heparin Sodium (Porcine) (Heparin Sodium,Porcine Flush 50 Units/5 Ml Syringe) 50 units IVFLUSH QSHIFT [facility] Last Admin: 09/29/21 08:08 Dose: 50 units Documented by: ERICA Hydromorphone HCl (Hydromorphone Hcl 1 Mg/Ml Syringe) 1 mg IVPUSH Q4H PRN; Protocol PRN Reason: pain Last Admin: 09/29/21 06:17 Dose: 1 mg Documented by: SILVIA Vancomycin HCl 750 mg/ Sodium (Chloride) 265 mls @ 265 mls/hr IV Q12H [facility] Insulin Glargine (Insulin Glargine,Hum.Rec.Anlog 100 Unit/Ml 10 Ml Vial) 35 unit SUBCUT BEDTIME [facility] Last Admin: 09/28/21 20:25 Dose: 35 unit Documented by: MELLISSA Insulin Human Lispro (Insulin Lispro 100 Unit/Ml 3 Ml Vial) 0 unit SUBCUT QIDACHS [facility]; Protocol Last Admin: 09/29/21 08:05 Dose: 2 unit Documented by: ERICA Lisinopril (Lisinopril 5 Mg Tablet) 5 mg PO DAILY [facility]; Protocol Last Admin: 09/29/21 08:07 Dose: 5 mg Documented by: ERICA Nicotine (Nicotine 21 Mg Patch.Td24) 21 mg TRANSDERMA DAILY [facility] Last Admin: 09/29/21 08:08 Dose: 21 mg Documented by: ERICA Ondansetron HCl (Ondansetron Hcl 4 Mg/2 Ml Vial) 4 mg IVPUSH Q8H PRN PRN Reason: Nausea and Vomiting Last Admin: 09/25/21 13:22 Dose: 4 mg Documented by: BLAKE Oxycodone HCl (Oxycodone Hcl Immed Release 5 Mg Tablet) 10 mg PO Q4H PRN PRN Reason: pain Last Admin: 09/29/21 08:06 Dose: 10 mg Documented by: ERICA Pharmacy Consult (Consult Rx Perform Med Rec) 1 each MISCELLANE ONCE PRN PRN Reason: Consult order Potassium Chloride (Potassium Chloride Er 20 Meq Tab.Er.Prt) 40 meq PO DAILY [facility] Last Admin: 09/29/21 08:07 Dose: 40 meq Documented by: ERICA Sodium Chloride (0.9 % Sodium Chloride Flush 3 Ml Syringe) [facility] Last Admin: 09/29/21 08:08 Dose: 3 ml Documented by: ERICA Labs CBC & Chem 7: 09/25/21 05:28 09/29/21 05:30 Labs: Laboratory Results - last 24 hr 09/27/21 09/28/21 09/28/21 19:31 10:51 16:43 Estim Creat Clear Calc Estimated GFR POC Glucose 124 H 180 H 249 H Random Vancomycin 09/28/21 09/28/21 09/29/21 18:13 19:28 05:30 Estim Creat Clear Calc 72.1 Estimated GFR 60 POC Glucose 145 H Random Vancomycin 20.2 H 09/29/21 09/29/21 07:26 07:54 Estim Creat Clear Calc Estimated GFR POC Glucose 153 H Random Vancomycin 11.8 L Microbiology Microbiology Results: Microbiology 09/26/21 13:26 Stool Culture - Final Stool Phyllis albicans Procedures Date of Service Date of Service: 09/29/21 Progress Note: A&P Assessment and plan (1) Status post transmetatarsal amputation of right foot: Status: Acute Assessment and Plan: Dressings changed Incision is healing well No weight-bearing Continue care with dry dressings, thick gauze and wrapped foot with Kerlix Fall Risk Details Current Medications: Current Medications Acetaminophen (Acetaminophen 325 Mg Tablet) 650 mg PO Q6H PRN PRN Reason: Pain, Mild (Pain Scale 1-3) Last Admin: 09/25/21 13:22 Dose: 650 mg Documented by: Alprazolam (Alprazolam 0.5 Mg Tablet) 1 mg PO DAILY PRN PRN Reason: Anxiety Alprazolam (Alprazolam 0.5 Mg Tablet) 2 mg PO BID PRN PRN Reason: anxiety Last Admin: 09/29/21 08:07 Dose: 2 mg Documented by: Amlodipine Besylate (Amlodipine Besylate 10 Mg Tablet) 10 mg PO DAILY [facility]; P rotocol Last Admin: 09/29/21 08:07 Dose: 10 mg Documented by: Gabapentin (Gabapentin 400 Mg Capsule) 400 mg PO QID [facility] Last Admin: 09/29/21 08:08 Dose: 400 mg Documented by: Heparin Sodium (Porcine) (Heparin Sodium,Porcine 5,000 Unit/Ml Vial) 5,000 unit SUBCUT Q12H [facility] Last Admin: 09/29/21 06:17 Dose: 5,000 unit Documented by: Heparin Sodium (Porcine) (Heparin Sodium,Porcine Flush 50 Units/5 Ml Syringe) 50 units IVFLUSH QSHIFT [facility] Last Admin: 09/29/21 08:08 Dose: 50 units Documented by: Hydromorphone HCl (Hydromorphone Hcl 1 Mg/Ml Syringe) 1 mg IVPUSH Q4H PRN; Protocol PRN Reason: pain Last Admin: 09/29/21 06:17 Dose: 1 mg Documented by: Vancomycin HCl 750 mg/ Sodium (Chloride) 265 mls @ 265 mls/hr IV Q12H [facility] Insulin Glargine (Insulin Glargine,Hum.Rec.Anlog 100 Unit/Ml 10 Ml Vial) 35 unit SUBCUT BEDTIME [facility] Last Admin: 09/28/21 20:25 Dose: 35 unit Documented by: Insulin Human Lispro (Insulin Lispro 100 Unit/Ml 3 Ml Vial) 0 unit SUBCUT QIDACHS [facility]; Protocol Last Admin: 09/29/21 08:05 Dose: 2 unit Documented by: Lisinopril (Lisinopril 5 Mg Tablet) 5 mg PO DAILY [facility]; Protocol Last Admin: 09/29/21 08:07 Dose: 5 mg Documented by: Nicotine (Nicotine 21 Mg Patch.Td24) 21 mg TRANSDERMA DAILY [facility] Last Admin: 09/29/21 08:08 Dose: 21 mg Documented by: Ondansetron HCl (Ondansetron Hcl 4 Mg/2 Ml Vial) 4 mg IVPUSH Q8H PRN PRN Reason: Nausea and Vomiting Last Admin: 09/25/21 13:22 Dose: 4 mg Documented by: Oxycodone HCl (Oxycodone Hcl Immed Release 5 Mg Tablet) 10 mg PO Q4H PRN PRN Reason: pain Last Admin: 09/29/21 08:06 Dose: 10 mg Documented by: Pharmacy Consult (Consult Rx Perform Med Rec) 1 each MISCELLANE ONCE PRN PRN Reason: Consult order Potassium Chloride (Potassium Chloride Er 20 Meq Tab.Er.Prt) 40 meq PO DAILY [facility] Last Admin: 09/29/21 08:07 Dose: 40 meq Documented by: Sodium Chloride (0.9 % Sodium Chloride Flush 3 Ml Syringe) 3 ml IVFLUSH QSHIFT [facility] Last Admin: 09/29/21 08:08 Dose: 3 ml Documented by: Time Spent With Patient Time: Total time spent is greater than 50% in coordination of care (as documented) at patient's floor/unit and/or counseling patient: Time with patient: 15 - 24 minutes Quality Stroke Does the patient have a stroke diagnosis?: No VTE Prior VTE?: No VTE Risk Level:: Medical - moderate - high VTE Device Contraindication: Treatment Not Indicated VTE Drug Contraindication: N/A - Med Ordered
[2021-09-29] MEDS: vancomycin HCL 750 MG in 0.9 % Sodium Chloride 250 ML 265 MG IV ×2 (09:29→19:33)
--- NOTE | 2021-09-29 09:50 | HO.PM.IMPN ---
Subjective Subjective Date of Service: 09/29/21 Review of Systems Follow up TMA Still with pain, better today appetite ok, able to eat today Physical Exam Vital Signs: Vital Signs: Last Vital Signs Temp 97.5 F 09/29/21 07:27 Pulse 73 09/29/21 07:27 Resp 18 09/29/21 07:27 BP 162/76 H 09/29/21 07:27 Pulse Ox 98 09/29/21 07:27 BMI result Body Mass Index 26.2 Appearing in no acute distress lung sounds are clear to auscultation heart regular rate rhythm, clear S1, S2 positive bowel sounds, abdomen is soft, nontender neuro patient is alert x3, no focal deficits foot surgical wound not visualized, surgical dressing Objective Data Active Medications Acetaminophen (Acetaminophen 325 Mg Tablet) 650 mg PO Q6H PRN PRN Reason: Pain, Mild (Pain Scale 1-3) Last Admin: 09/25/21 13:22 Dose: 650 mg Documented by: BLAKE Alprazolam (Alprazolam 0.5 Mg Tablet) 1 mg PO DAILY PRN PRN Reason: Anxiety Alprazolam (Alprazolam 0.5 Mg Tablet) 2 mg PO BID PRN PRN Reason: anxiety Last Admin: 09/29/21 08:07 Dose: 2 mg Documented by: ERICA Amlodipine Besylate (Amlodipine Besylate 10 Mg Tablet) 10 mg PO DAILY [facility]; Protocol Last Admin: 09/29/21 08:07 Dose: 10 mg Documented by: ERICA Gabapentin (Gabapentin 400 Mg Capsule) 400 mg PO QID [facility] Last Admin: 09/29/21 08:08 Dose: 400 mg Documented by: ERICA Heparin Sodium (Porcine) (Heparin Sodium,Porcine 5,000 Unit/Ml Vial) 5,000 unit SUBCUT Q12H [facility] Last Admin: 09/29/21 06:17 Dose: 5,000 unit Documented by: SILVIA Heparin Sodium (Porcine) (Heparin Sodium,Porcine Flush 50 Units/5 Ml Syringe) 50 units IVFLUSH QSHIFT [facility] Last Admin: 09/29/21 08:08 Dose: 50 units Documented by: ERICA Hydromorphone HCl (Hydromorphone Hcl 1 Mg/Ml Syringe) 1 mg IVPUSH Q4H PRN; Protocol PRN Reason: pain Last Admin: 09/29/21 06:17 Dose: 1 mg Documented by: SILVIA Vancomycin HCl 750 mg/ Sodium (Chloride) 265 mls @ 265 mls/hr IV Q12H [facility] Last Admin: 09/29/21 09:29 Dose: 265 mls/hr Documented by: ERICA Insulin Glargine (Insulin Glargine,Hum.Rec.Anlog 100 Unit/Ml 10 Ml Vial) 35 unit SUBCUT BEDTIME [facility] Last Admin: 09/28/21 20:25 Dose: 35 unit Documented by: MELLISSA Insulin Human Lispro (Insulin Lispro 100 Unit/Ml 3 Ml Vial) 0 unit SUBCUT QIDACHS [facility]; Protocol Last Admin: 09/29/21 08:05 Dose: 2 unit Documented by: ERICA Lisinopril (Lisinopril 5 Mg Tablet) 5 mg PO DAILY [facility]; Protocol Last Admin: 09/29/21 08:07 Dose: 5 mg Documented by: ERICA Nicotine (Nicotine 21 Mg Patch.Td24) 21 mg TRANSDERMA DAILY [facility] Last Admin: 09/29/21 08:08 Dose: 21 mg Documented by: ERICA Ondansetron HCl (Ondansetron Hcl 4 Mg/2 Ml Vial) 4 mg IVPUSH Q8H PRN PRN Reason: Nausea and Vomiting Last Admin: 09/25/21 13:22 Dose: 4 mg Documented by: BLAKE Oxycodone HCl (Oxycodone Hcl Immed Release 5 Mg Tablet) 10 mg PO Q4H PRN PRN Reason: pain Last Admin: 09/29/21 08:06 Dose: 10 mg Documented by: ERICA Pharmacy Consult (Consult Rx Perform Med Rec) 1 each MISCELLANE ONCE PRN PRN Reason: Consult order Potassium Chloride (Potassium Chloride Er 20 Meq Tab.Er.Prt) 40 meq PO DAILY [facility] Last Admin: 09/29/21 08:07 Dose: 40 meq Documented by: ERICA Sodium Chloride (0.9 % Sodium Chloride Flush 3 Ml Syringe) 3 ml IVFLUSH QSHIFT [facility] Last Admin: 09/29/21 08:08 Dose: 3 ml Documented by: ERICA Labs CBC & Chem 7: 09/25/21 05:28 09/29/21 05:30 Labs: Laboratory Results - last 24 hr 09/27/21 09/28/21 09/28/21 19:31 10:51 16:43 Estim Creat Clear Calc Estimated GFR POC Glucose 124 H 180 H 249 H Random Vancomycin 09/28/21 09/28/21 09/29/21 18:13 19:28 05:30 Estim Creat Clear Calc 72.1 Estimated GFR 60 POC Glucose 145 H Random Vancomycin 20.2 H 09/29/21 09/29/21 07:26 07:54 Estim Creat Clear Calc Estimated GFR POC Glucose 153 H Random Vancomycin 11.8 L Microbiology Microbiology Results: Microbiology 09/26/21 13:26 Stool Culture - Final Stool Phyllis albicans Assessment and Plan (1) Status post transmetatarsal amputation of right foot: Status: Acute Plan This is a 51 yo F with a PMH of DM, OUD (snorts heroin), anxiety, who presents to the hospital with R foot pain. Her presentation is consistent with sepsis secondary to osteomyelitis. MRSA bacteremia Related to osteomyelitis 1/2 BCx growing MRSA, repeat blood cultures negative Picc line, 6 weeks of vancomycin Sepsis secondary to osteomyelitis/septic arthritis of the R 1st TMP joint, Osteo the L Great Toe. Resolved Continue broad spec IV anbitioics with IV vanco s/p TMA ID consult following will need jail antibiotics for left great toe osteo Medication management HTN bp still elevated not on meds at baseline continue norvasc 10 mg, lisinopril 5mg added Hypokalemia/hypomagnesemia resolved Diarrhea. Resolved DM HbA1c 8.6 continue lantus, sliding scale diabetic diet Opiate use disorder See event note from 09/28/21 Addiction medicine consult consider suboxone tobacco dependence smoking cessation advised NRT Mood Xanax, zoloft Falls likely due to weakness related to foot issues DISPO Awaiting rehab facility, not vaccinated so may be difficult, there is a possibility that she may have to complete the course here. Due to substance abuse issues she is unable to go home with a PICC line Full Code DVT pptx, subcut. heparin Attending: Dr. Painting Quality Stroke Does the patient have a stroke diagnosis?: No VTE Prior VTE?: No VTE Risk Level:: Medical - moderate - high VTE Device Contraindication: Treatment Not Indicated VTE Drug Contraindication: N/A - Med Ordered
--- NOTE | 2021-09-29 10:18 | MHC.CM.PN ---
EMR REVIEWED, PT'S REFERRALS UPDATED AND SEARCH EXPANDED TO [facility] W/REFERRALS SENT TO [facility], [facility], [facility], [facility] AND [facility], AT TIME OF THIS NOTE ALL SNFS EXCEPT [facility] HAVE DECLINED PT D/T ACTIVE SA, REFERRAL INTAKE STARTED AT [facility] [place] AND REFERRAL WILL BE PAPER FAXED TO [phone], REFERRAL TO BE SENT TO [facility] VIA [employer]. CM WILL CONT TO FOLLOW REFERRALS AND D/C NEEDS.
[2021-09-29 11:32] LABS: Glucose, Whole Blood 192 mg/dL (60-115)
--- NOTE | 2021-09-29 13:07 | MHC.CM.PN ---
EMR REVIEWED, CM MET W/PT TO DISCUSS DCP AND DETERMINE IF SHE IS OPEN TO GETTING HER FIRST COVID VACCINE WHILE SHE IS INPT, PT HESITANT AT FIRST AND REPORTED SHE THOUGHT SHE WOULD HAVE TO BE QUARANTINED FOR 14DAYS AFTER RECEIVING DOSE AND WORRIED ABOUT NOT GETTING THERAPY DURING THAT TIME, PT REASSURED SHE WILL BE ABLE TO RECEIVE TREATMENT DURING THAT PERIOD AND THAT CM WILL SET UP 2ND COVID VACCINE W/[facility] VACCINE PROGRAM IF PLACEMENT IS FOUND FOR PT. PER PHYSICAL THERAPY PT HAD REFUSED PT EARLIER TODAY, PT IS NOW AWARE SHE IS EXPECTED TO PARTICIPATE FOR PLACEMENT, PT AWARE REFERRALS HAVE BEEN PLACED FAR [facility] AND [facility]. PT REQUESTING HOSPITAL ALLOWS HER TO RECEIVE A CARD W/MONEY THIS MONDAY FROM A FRIEND SO SHE CAN PURCHASE DIET COKE, HOSPITALIST AWARE AND OKAY LONG CARD IS SEARCHED PRIOR TO BEING GIVEN TO PT. PT CLARIFIED SHE HAS DR JONES IN [place] AND HAS HAD RECENT VISITS VIA TELEHEALTH. PT REPORTED PHONE ON FILE IS NO LONGER IN SERVICE AND HER CURRENT CELL IS [phone]
--- NOTE | 2021-09-29 15:31 | MHC.CM.PN ---
CM CONTACTED JAVAN SAENZ AT 2:40PM [phone] AFTER NOT RECEIVING A CALL BACK FROM PREVIOUS MESSAGE CM LEFT AT AND PER LIAISON THEY DO NOT ACCEPT PT'S THAT HAVE USED WHILE INPT, JAVAN REPORTED SHE WOULD CONTACT [employer] TO VERIFY POLICY AND GET BACK TO CM VIA [employer]. CM ALSO AWAITING RESPONSE FROM [facility] AND [facility] WHO ARE BOTH REVIEWING PT.
[2021-09-29 15:45] LABS: Glucose, Whole Blood 162 mg/dL (60-115)
--- NOTE | 2021-09-29 16:43 | HO.ADDICT_ITS ---
History of Present Illness Date of Service: 09/29/21 Chief Complaint: LEG INFECTION W/PAIN, H/O DM Reason for Consult: Opioid use disorder. Requesting physician: Jocelyn Medley Discussed with referring provider: Yes Sources of Information: patient interviewed and chart reviewed HPI Narrative: Ms. Siddiqui is a 51 year old female that presented to ED with pain and falls to lower extremities. She reported that she uses a few bags of heroine a week and snorts it.? She was found to be septic from osteomyelitis to both feet, and was admitted for further management and treatment of osteomyelitis. Yesterday she was found to have approximately 40 bags heroin on her person, delivered by a family member. Today she was agreeable to meeting with recovery team, and is asking to be started on methadone. She was resting in bed, appeared comfortable. Denied any withdrawals or cravings at this time. Please note, she has opioid pain medications currently while in hospital. She reports that she has a longstanding history of opioid use disorder, and that she attended a methadone clinic, ?years ago ?. She stated that at some point she took Suboxone, and that it worked for several years , until she began having side effects from it. She lives with her son and roommate, and reports that her son is very supportive. She states that her almost a year ago, and that she has found herself using heroin more and more frequently. She w, and then referred to a clinic when she leaves. Past Psychiatric History: Has psychiatrist, Dr. Shawnee Cooper. Medical Evaluation Reviewed: Yes Personal & Social History: Lives with son. 11 months ago. Review of Systems Review of Systems A full review of systems was completed and was negative with the exception of pertinent positives noted in history of the presenting illness (HPI). Diagnostics Vital Signs (24Hr): Vital Signs - 24 hr 09/28/21 23:26 09/29/21 01:50 09/29/21 03:14 Temperature 97.6 F 98.2 F Pulse Rate 80 65 Respiratory Rate 18 18 18 Blood Pressure 146/70 H 149/70 H Pulse Oximetry 97 98 09/29/21 06:17 09/29/21 07:27 09/29/21 11:22 Temperature 97.5 F 100.1 F Pulse Rate 73 74 Respiratory Rate 17 18 18 Blood Pressure 162/76 H 160/77 H Pulse Oximetry 98 92 09/29/21 15:15 Temperature 98.2 F Pulse Rate 86 Respiratory Rate 18 Blood Pressure 169/76 H Pulse Oximetry 93 BMI result Body Mass Index 26.2 Labs Results: 09/25/21 05:28 09/29/21 05:30 Labs: Laboratory Results - last 48 hr 09/27/21 09/27/21 09/28/21 15:27 19:31 04:12 Creatinine 0.77 Estim Creat Clear Calc 91.7 Estimated GFR > 60 POC Glucose 113 124 H Random Vancomycin 09/28/21 09/28/21 09/28/21 07:18 10:51 16:43 Creatinine Estim Creat Clear Calc Estimated GFR POC Glucose 88 180 H 249 H Random Vancomycin 09/28/21 09/28/21 09/29/21 18:13 19:28 05:30 Creatinine 0.98 Estim Creat Clear Calc 72.1 Estimated GFR 60 POC Glucose 145 H Random Vancomycin 20.2 H 09/29/21 09/29/21 09/29/21 07:26 07:54 11:21 Creatinine Estim Creat Clear Calc Estimated GFR POC Glucose 153 H 192 H Random Vancomycin 11.8 L 09/29/21 15:17 Creatinine Estim Creat Clear Calc Estimated GFR POC Glucose 162 H Random Vancomycin Imaging Radiology Impressions: ITS Impressions Venous Duplex 09/21/21 13:48 IMPRESSION: No DVT demonstrated in the left lower extremity. Cervical Spine CT 09/21/21 15:17 IMPRESSION: Mild degenerative changes. No fracture or dislocation seen. Fleischner guidelines were followed. Head CT 09/21/21 15:17 IMPRESSION: No acute intracranial findings. Sinus disease. Foot X-Ray 09/21/21 15:22 IMPRESSION: Bone destruction and soft tissue loss of the distal great toe suggestive of osteomyelitis. Foot X-Ray 09/21/21 15:22 IMPRESSION: Fracture dislocation of the first MTP joint with osteopenia and bone destruction questionable for septic arthritis/osteomyelitis. Destruction of the phalanx and metatarsal head and distal shaft of the second toe suggestive of osteomyelitis. Probable postsurgical amputation of the third toe. New soft tissue foreign body adjacent to the plantar fourth metatarsal head. New fracture of the distal shaft or neck of the fifth metatarsal bone. Hand X-Ray 09/21/21 15:22 IMPRESSION: Question old trauma to the ulnar styloid and soft tissues lateral to the fifth JAIL joint and dorsal wrist and distal forearm. No acute fracture or dislocation. Mild arthritis at the first JAIL joint. Knee X-Ray 09/21/21 15:22 IMPRESSION: Degenerative changes and joint effusion. Question old subchondral injury of the medial femoral condyle. Mental Status Exam Mental Status Exam Narrative: Well-nourished female, in NAD. Appears older than stated age. Resting in bed. No opioid withdrawal symptoms reported or observed. Patient Appearance: Fatigued and Disheveled Patient Orientation: Person, Place, Time and Situation Level of Consciousness: Awake, Appropriate and Alert Patient Behavior: Appropriate, Cooperative and Anxious Mood Description: Appropriate Affect Description: Appropriate and Anxious Ability to Follow Directions: Good Speech Pattern: Clear and Coherent Memory Description: Intact Hallucinations: None Delusions: Not Present Thought Process: Intact, Goal Oriented and Linear Thought Content: positive for Intact, positive for Goal Oriented and positive for Linear Depressive Symptoms: Increased Anxiety, Loss of Int. in Activity, Feelings of Guilt, Unhappiness, Increased Fatigue and Low Self Esteem Judgement: Fair Medications Medications Current Medications Acetaminophen (Acetaminophen 325 Mg Tablet) 650 mg PO Q6H PRN PRN Reason: Pain, Mild (Pain Scale 1-3) Last Admin: 09/25/21 13:22 Dose: 650 mg Documented by: Alprazolam (Alprazolam 0.5 Mg Tablet) 1 mg PO DAILY PRN PRN Reason: Anxiety Alprazolam (Alprazolam 0.5 Mg Tablet) 2 mg PO BID PRN PRN Reason: anxiety Last Admin: 09/29/21 08:07 Dose: 2 mg Documented by: Amlodipine Besylate (Amlodipine Besylate 10 Mg Tablet) 10 mg PO DAILY [facility]; Protocol Last Admin: 09/29/21 08:07 Dose: 10 mg Documented by: Gabapentin (Gabapentin 400 Mg Capsule) 400 mg PO QID [facility] Last Admin: 09/29/21 13:00 Dose: 400 mg Documented by: Heparin Sodium (Porcine) (Heparin Sodium,Porcine 5,000 Unit/Ml Vial) 5,000 unit SUBCUT Q12H [facility] Last Admin: 09/29/21 06:17 Dose: 5,000 unit Documented by: Heparin Sodium (Porcine) (Heparin Sodium,Porcine Flush 50 Units/5 Ml Syringe) 50 units IVFLUSH QSHIFT [facility] Last Admin: 09/29/21 08:08 Dose: 50 units Documented by: Hydromorphone HCl (Hydromorphone Hcl 1 Mg/Ml Syringe) 1 mg IVPUSH Q4H PRN; Protocol PRN Reason: pain Last Admin: 09/29/21 14:51 Dose: 1 mg Documented by: Vancomycin HCl 750 mg/ Sodium (Chloride) 265 mls @ 265 mls/hr IV Q12H [facility] Last Infusion: 09/29/21 10:58 Dose: Infused Documented by: Insulin Glargine (Insulin Glargine,Hum.Rec.Anlog 100 Unit/Ml 10 Ml Vial) 35 unit SUBCUT BEDTIME [facility] Last Admin: 09/28/21 20:25 Dose: 35 unit Documented by: Insulin Human Lispro (Insulin Lispro 100 Unit/Ml 3 Ml Vial) 0 unit SUBCUT QIDACHS [facility]; Protocol Last Admin: 09/29/21 11:47 Dose: 2 unit Documented by: Lisinopril (Lisinopril 5 Mg Tablet) 5 mg PO DAILY [facility]; Protocol Last Admin: 09/29/21 08:07 Dose: 5 mg Documented by: Methadone HCl (Methadone Hcl 20 Mg/2 Ml Oral.Conc) 10 mg PO DAILY [facility] Nicotine (Nicotine 21 Mg Patch.Td24) 21 mg TRANSDERMA DAILY [facility] Last Admin: 09/29/21 08:08 Dose: 21 mg Documented by: Ondansetron HCl (Ondansetron Hcl 4 Mg/2 Ml Vial) 4 mg IVPUSH Q8H PRN PRN Reason: Nausea and Vomiting Last Admin: 09/25/21 13:22 Dose: 4 mg Documented by: Oxycodone HCl (Oxycodone Hcl Immed Release 5 Mg Tablet) 10 mg PO Q4H PRN PRN Reason: pain Last Admin: 09/29/21 14:03 Dose: 10 mg Documented by: Pharmacy Consult (Consult Rx Perform Med Rec) 1 each MISCELLANE ONCE PRN PRN Reason: Consult order Potassium Chloride (Potassium Chloride Er 20 Meq Tab.Er.Prt) 40 meq PO DAILY [facility] Last Admin: 09/29/21 08:07 Dose: 40 meq Documented by: Sodium Chloride (0.9 % Sodium Chloride Flush 3 Ml Syringe) 3 ml IVFLUSH QSHIFT [facility] Last Admin: 09/29/21 08:08 Dose: 3 ml Documented by: Allergies Allergies Allergy/AdvReac Type Severity Reaction Status Date / Time prednisone [PREDNISONE] Allergy Unknown RASH Verified 09/24/21 11:47 Assessment & Plan Assessment & Plan (1) Opioid use disorder: Status: Acute Code(s): F11.90 - Opioid use, unspecified, uncomplicated Assessment and Plan: Patient has a longstanding history of opioid use disorder, as well as several periods of years where she was able to maintain abstinence, along with use of methadone and then Suboxone. She is seeking assistance, and has asked to be initiated on methadone. She understands the full commitment of needing to go to a clinic daily, and states that she is willing to do so. She reports that she has had more success when she received methadone than Suboxone in her past. She denies any type of cravings or withdrawals today, and dosing will start tomorrow. Plan 1. Start methadone 10 mg daily tomorrow morning. As opioid pain medications are decreased as appropriate, will work with patient to titrate up methadone in order to manage withdrawals and cravings. 2. Refer patient to [facility] methadone Clinic located in her down. 3. Addiction team to continue following patient. This has been shared with provider Jocelyn Medley NP Thank you for this consultation. I spent minutes with the patient and/or on the patient floor today, gr eater than?50% of which was spent counseling/coordinating care. PMFSH Past Medical History Medical Problems Affecting Mental Status: No Medical History Anxiety Diabetes No known health problems Substance abuse Psychiatric History: Psychopharmacology and Substance Abuse History Family History Pertinent family history: Unknown Surgical History Surgical History Status post transmetatarsal amputation of right foot (09/24/21) Social History Social History Household Members: Children Housing: Apartment Do you presently have visiting nurse or other home services: No Alcohol intake: never Patient Tobacco Use Status: Current everyday Tobacco user Tobacco use type: Cigarette Cigarette Packs Per Day: 1 Cigarettes Per Day: 20.0 Substance Use Type: Inhalants Substance Use Frequency: Occasionally Substance Use Frequency Other:: reporting use every few days Last Used Substance: Days (ago) Currently Displaying Signs/Symptoms of Drug Intoxication Withdrawal: No Any prior treatment program specific to substance use: Yes service: No Current occupational status: unemployed
[2021-09-29] MEDS: Acetaminophen 325 MG TABLET 650 MG PO (17:01)
[2021-09-29 20:14] LABS: Glucose, Whole Blood 185 mg/dL (60-115)
[2021-09-29] MEDS: Insulin Glargine,Hum.rec.anlog 100 UNIT/ML 10 ML VIAL 35 UNIT SUBCUT (21:56)
--- NOTE | 2021-09-30 | ECG_ITS ---
Test Reason : stat Blood Pressure : / mmHG Vent. Rate : 078 BPM Atrial Rate : 078 BPM P-R Int : 130 ms QRS Dur : 082 ms QT Int : 388 ms P-R-T Axes : 051 -03 037 degrees QTc Int : 442 ms Normal sinus rhythm Normal ECG No previous ECGs available Referred By: Giselle Barroso Electronically Signed By:FELIPA LUNDBERG
[2021-09-30] MEDS: Heparin Sodium,Porcine Flush 50 UNITS/5 ML SYRINGE IVFLUSH ×3 (00:15→17:08)
[2021-09-30] MEDS: 0.9 % Sodium Chloride Flush 3 ML SYRINGE IVFLUSH ×2 (00:16→08:23)
[2021-09-30 04:00] VITALS: BP 180/85; PULSE 74; RESP 20; TEMP 36.7; O2SAT 94
[2021-09-30] MEDS: HYDROmorphone HCl 1 MG/ML SYRINGE IVPUSH ×2 (04:55→10:23)
[2021-09-30] MEDS: Heparin Sodium,Porcine 5,000 UNIT/ML VIAL 5000 UNIT SUBCUT ×2 (05:05→17:08)
[2021-09-30 06:19] LABS: Vancomycin Trough 14.1 mcg/mL (10.0-20.0)
[2021-09-30 06:24] LABS: Anion Gap 18 (12-20); Blood Urea Nitrogen 18 mg/dL (9-16); Calcium 9.1 mg/dL (8.4-10.2); Carbon Dioxide 24 mmol/L (22-29); Chloride 102 mmol/L (96-108); Creatinine Clr Calc Pharmacy 70.6; Estimated Glomerular Filt Rate 58; Glucose Random 194 mg/dL (60-115); Potassium 3.8 mmol/L (3.3-5.1); Sodium 140 mmol/L (135-145)
--- NOTE | 2021-09-30 07:14 | HE.PHANOTE ---
RE VANCO Patient SCr is still increasing (up 25% from baseline) to 1.0. Patient's urine output is 0.25ml/kg/hr. I recommend switching to q24hr dosing to decrease toxicity from 16% to 10% (per insight). New predicted trough and AUC: 14.8 and 429 respectively. Next trough 10/02@1200
[2021-09-30 07:27] VITALS: BP 202/90; PULSE 80; RESP 18; TEMP 37.3; O2SAT 97
[2021-09-30 08:16] LABS: Glucose, Whole Blood 194 mg/dL (60-115)
[2021-09-30] MEDS: Nicotine 21 MG PATCH.TD24 TRANSDERMA (08:20)
[2021-09-30] MEDS: Potassium Chloride ER 20 MEQ TAB.ER.PRT 40 MEQ PO (08:20)
[2021-09-30] MEDS: Gabapentin 400 MG CAPSULE PO ×4 (08:21→21:15)
[2021-09-30] MEDS: amLODIPine Besylate 10 MG TABLET PO (08:21)
[2021-09-30] MEDS: lisinopriL 10 MG TABLET PO (08:21)
[2021-09-30] MEDS: oxyCODONE HCl Immed Release 5 MG TABLET 10 MG PO ×3 (08:21→17:09)
[2021-09-30] MEDS: methADONE HCl 20 MG/2 ML ORAL.CONC 10 MG PO (08:22)
[2021-09-30] MEDS: Insulin Lispro 100 UNIT/ML 3 ML VIAL SUBCUT ×3 (08:22→21:15)
--- NOTE | 2021-09-30 09:03 | PM.PNGS ---
Subjective Subjective Date of Service: 09/30/21 Interval history: no new complaints says she is comfortable Physical Exam Vital Signs: Vital Signs: Last Vital Signs Temp 99.1 F 09/30/21 07:27 Pulse 80 09/30/21 07:27 Resp 18 09/30/21 07:27 BP 202/90 H 09/30/21 07:27 Pulse Ox 97 09/30/21 07:27 BMI result Body Mass Index 26.2 Const: General: comfortable and no acute distress Extrem: Other: TMA stump on the right healing well, sutures intact, no cellulitis; left big toe ulcer on the left, no pus, no cellulitis Objective Data Active Medications Acetaminophen (Acetaminophen 325 Mg Tablet) 650 mg PO Q6H PRN PRN Reason: Pain, Mild (Pain Scale 1-3) Last Admin: 09/29/21 17:01 Dose: 650 mg Documented by: CORAL Alprazolam (Alprazolam 0.5 Mg Tablet) 1 mg PO DAILY PRN PRN Reason: Anxiety Alprazolam (Alprazolam 0.5 Mg Tablet) 2 mg PO BID PRN PRN Reason: anxiety Last Admin: 09/29/21 21:48 Dose: 2 mg Documented by: CLIFF Amlodipine Besylate (Amlodipine Besylate 10 Mg Tablet) 10 mg PO DAILY [facility]; Protocol Last Admin: 09/30/21 08:21 Dose: 10 mg Documented by: YOBANI Gabapentin (Gabapentin 400 Mg Capsule) 400 mg PO QID [facility] Last Admin: 09/30/21 08:21 Dose: 400 mg Documented by: YOBANI Heparin Sodium (Porcine) (Heparin Sodium,Porcine 5,000 Unit/Ml Vial) 5,000 unit SUBCUT Q12H [facility] Last Admin: 09/30/21 05:05 Dose: 5,000 unit Documented by: CLIFF Heparin Sodium (Porcine) (Heparin Sodium,Porcine Flush 50 Units/5 Ml Syringe) 50 units IVFLUSH QSHIFT [facility] Last Admin: 09/30/21 08:23 Dose: 50 units Documented by: YOBANI Hydromorphone HCl (Hydromorphone Hcl 1 Mg/Ml Syringe) 1 mg IVPUSH Q4H PRN; Protocol PRN Reason: pain Last Admin: 09/30/21 04:55 Dose: 1 mg Documented by: CLIFF Vancomycin HCl 1,250 mg/ (Sodium Chloride) 250 mls @ 166.667 mls/hr IV Q24H [facility] Insulin Glargine (Insulin Glargine,Hum.Rec.Anlog 100 Unit/Ml 10 Ml Vial) 35 unit SUBCUT BEDTIME [facility] Last Admin: 09/29/21 21:56 Dose: 35 unit Documented by: CLIFF Insulin Human Lispro (Insulin Lispro 100 Unit/Ml 3 Ml Vial) 0 unit SUBCUT QIDACHS [facility]; Protocol Last Admin: 09/30/21 08:22 Dose: 2 unit Documented by: YOBANI Lisinopril (Lisinopril 10 Mg Tablet) 10 mg PO DAILY [facility]; Protocol Last Admin: 09/30/21 08:21 Dose: 10 mg Documented by: YOBANI Methadone HCl (Methadone Hcl 20 Mg/2 Ml Oral.Conc) 10 mg PO DAILY [facility] Last Admin: 09/30/21 08:22 Dose: 10 mg Documented by: YOBANI Nicotine (Nicotine 21 Mg Patch.Td24) 21 mg TRANSDERMA DAILY [facility] Last Admin: 09/30/21 08:20 Dose: 21 mg Documented by: YOBANI Ondansetron HCl (Ondansetron Hcl 4 Mg/2 Ml Vial) 4 mg IVPUSH Q8H PRN PRN Reason: Nausea and Vomiting Last Admin: 09/25/21 13:22 Dose: 4 mg Documented by: BLAKE Oxycodone HCl (Oxycodone Hcl Immed Release 5 Mg Tablet) 10 mg PO Q4H PRN PRN Reason: pain Last Admin: 09/30/21 08:21 Dose: 10 mg Documented by: YOBANI Pharmacy Consult (Consult Rx Perform Med Rec) 1 each MISCELLANE ONCE PRN PRN Reason: Consult order Potassium Chloride (Potassium Chloride Er 20 Meq Tab.Er.Prt) 40 meq PO DAILY [facility] Last Admin: 09/30/21 08:20 Dose: 40 meq Documented by: YOBANI Sodium Chloride (0.9 % Sodium Chloride Flush 3 Ml Syringe) 3 ml IVFLUSH QSHIFT [facility] Last Admin: 09/30/21 08:23 Dose: 3 ml Documented by: YOBANI Labs CBC & Chem 7: 09/25/21 05:28 09/30/21 05:35 Labs: Laboratory Results - last 24 hr 09/29/21 09/29/21 09/29/21 11:21 15:17 19:47 Anion Gap Estim Creat Clear Calc Estimated GFR POC Glucose 192 H 162 H 185 H Random Glucose Calcium Vancomycin Trough 09/30/21 09/30/21 09/30/21 05:35 05:35 05:35 Anion Gap 18 Estim Creat Clear Calc 70.6 Cancelled Estimated GFR 58 Cancelled POC Glucose Random Glucose 194 H Calcium 9.1 D Vancomycin Trough 14.1 09/30/21 08:09 Anion Gap Estim Creat Clear Calc Estimated GFR POC Glucose 194 H Random Glucose Calcium Vancomycin Trough Microbiology Microbiology Results: Microbiology 09/24/21 16:00 Blood Culture - Final Blood - Venous No growth after 5 days. 09/24/21 15:57 Blood Culture - Final Blood - Venous No growth after 5 days. 09/26/21 13:26 Stool Culture - Final Stool Phyllis albicans Procedures Date of Service Date of Service: 09/30/21 Progress Note: A&P Assessment and plan (1) Status post transmetatarsal amputation of right foot: Status: Acute Plan dressings changed dry dressings applied to stump and wrapped foot in Kerlix roll continue alginate dressings to left big toe no weight-bearing if discharged, will see in the office in about 2-3 weeks for removal of sutures Fall Risk Details Current Medications: Current Medications Acetaminophen (Acetaminophen 325 Mg Tablet) 650 mg PO Q6H PRN PRN Reason: Pain, Mild (Pain Scale 1-3) Last Admin: 09/29/21 17:01 Dose: 650 mg Documented by: Alprazolam (Alprazolam 0.5 Mg Tablet) 1 mg PO DAILY PRN PRN Reason: Anxiety Alprazolam (Alprazolam 0.5 Mg Tablet) 2 mg PO BID PRN PRN Reason: anxiety Last Admin: 09/29/21 21:48 Dose: 2 mg Documented by: Amlodipine Besylate (Amlodipine Besylate 10 Mg Tablet) 10 mg PO DAILY [facility]; Protocol Last Admin: 09/30/21 08:21 Dose: 10 mg Documented by: Gabapentin (Gabapentin 400 Mg Capsule) 400 mg PO QID [facility] Last Admin: 09/30/21 08:21 Dose: 400 mg Documented by: Heparin Sodium (Porcine) (Heparin Sodium,Porcine 5,000 Unit/Ml Vial) 5,000 unit SUBCUT Q12H [facility] Last Admin: 09/30/21 05:05 Dose: 5,000 unit Documented by: Heparin Sodium (Porcine) (Heparin Sodium,Porcine Flush 50 Units/5 Ml Syringe) 50 units IVFLUSH QSHIFT [facility] Last Admin: 09/30/21 08:23 Dose: 50 units Documented by: Hydromorphone HCl (Hydromorphone Hcl 1 Mg/Ml Syringe) 1 mg IVPUSH Q4H PRN; Protocol PRN Reason: pain Last Admin: 09/30/21 04:55 Dose: 1 mg Documented by: Vancomycin HCl 1,250 mg/ (Sodium Chloride) 250 mls @ 166.667 mls/hr IV Q24H [facility] Insulin Glargine (Insulin Glargine,Hum.Rec.Anlog 100 Unit/Ml 10 Ml Vial) 35 unit SUBCUT BEDTIME [facility] Last Admin: 09/29/21 21:56 Dose: 35 unit Documented by: Insulin Human Lispro (Insulin Lispro 100 Unit/Ml 3 Ml Vial) 0 unit SUBCUT QIDACHS [facility]; Protocol Last Admin: 09/30/21 08:22 Dose: 2 unit Documented by: Lisinopril (Lisinopril 10 Mg Tablet) 10 mg PO DAILY [facility]; Protocol Last Admin: 09/30/21 08:21 Dose: 10 mg Documented by: Methadone HCl (Methadone Hcl 20 Mg/2 Ml Oral.Conc) 10 mg PO DAILY [facility] Last Admin: 09/30/21 08:22 Dose: 10 mg Documented by: Nicotine (Nicotine 21 Mg Patch.Td24) 21 mg TRANSDERMA DAILY [facility] Last Admin: 09/30/21 08:20 Dose: 21 mg Documented by: Ondansetron HCl (Ondansetron Hcl 4 Mg/2 Ml Vial) 4 mg IVPUSH Q8H PRN PRN Reason: Nausea and Vomiting Last Admin: 09/25/21 13:22 Dose: 4 mg Documented by: Oxycodone HCl (Oxycodone Hcl Immed Release 5 Mg Tablet) 10 mg PO Q4H PRN PRN Reason: pain Last Admin: 09/30/21 08:21 Dose: 10 mg Documented by: Pharmacy Consult (Consult Rx Perform Med Rec) 1 each MISCELLANE ONCE PRN PRN Reason: Consult order Potassium Chloride (Potassium Chloride Er 20 Meq Tab.Er.Prt) 40 meq PO DAILY [facility] Last Admin: 09/30/21 08:20 Dose: 40 meq Documented by: Sodium Chloride (0.9 % Sodium Chloride Flush 3 Ml Syringe) 3 ml IVFLUSH QSHIFT [facility] Last Admin: 09/30/21 08:23 Dose: 3 ml Documented by: Time Spent With Patient Time: Total time spent is greater than 50% in coordination of care (as documented) at patient's floor/unit and/or counseling patient: Time with patient: 15 - 24 minutes Quality Stroke Does the patient have a stroke diagnosis?: No VTE Prior VTE?: No VTE Risk Level:: Medical - moderate - high VTE Device Contraindication: Treatment Not Indicated VTE Drug Contraindication: N/A - Med Ordered
[2021-09-30 10:16] VITALS: BP 168/73; PULSE 85; RESP 18; O2SAT 97
[2021-09-30 11:22] VITALS: BP 145/72; PULSE 80; RESP 18; TEMP 36.7; O2SAT 99
[2021-09-30 11:44] LABS: Glucose, Whole Blood 188 mg/dL (60-115)
--- NOTE | 2021-09-30 12:37 | HO.PM.IMPN ---
Subjective Subjective Date of Service: 09/30/21 <SAULO Dallas - Last Filed: 09/30/21 12:58> 10/01/21 <Keyla Mei MD - Last Filed: 10/01/21 16:00> Interval History: seen and examined this morning reporting pain of right foot, some nausea; no abdominal pain <SAULO [place] - Last Filed: 09/30/21 12:58> Review of Systems Review of Systems: Yes all other systems are reviewed and are negative <SAULO Dallas - Last Filed: 09/30/21 12:58> Constitutional Constitutional: Denies chills and Denies fever(s) <SAULO [place] - Last Filed: 09/30/21 12:58> Cardiovascular Cardiovascular: Denies dyspnea <SAULO [place] - Last Filed: 09/30/21 12:58> Respiratory Respiratory: Denies cough and Denies dyspnea <SAULO Dallas - Last Filed: 09/30/21 12:58> Gastrointestinal Gastrointestinal: Denies abdominal pain and Reports nausea <SAULO Dallas - Last Filed: 09/30/21 12:58> Physical Exam Vital Signs: Vital Signs: Last Vital Signs Temp 98.0 F 09/30/21 11:22 Pulse 80 09/30/21 11:22 Resp 18 09/30/21 11:22 BP 145/72 H 09/30/21 11:22 Pulse Ox 99 09/30/21 11:22 BMI result Body Mass Index 26.2 <SAULO Dallas - Last Filed: 09/30/21 12:58> Const: General: cooperative, comfortable, no acute distress, alert and awake <SAULO [place] - Last Filed: 09/30/21 12:58> Nutritional Appearance: average body habitus <SAULO [place] - Last Filed: 09/30/21 12:58> Orientation/consciousness: patient oriented x3 <SAULO [place] - Last Filed: 09/30/21 12:58> Resp: Effort & Inspection: normal respiratory effort and able to speak in complete sentences <SAULO [place] - Last Filed: 09/30/21 12:58> Cardio: Heart sounds: S1 normal heart sound present and S2 normal heart sound present <SAULO Dallas - Last Filed: 09/30/21 12:58> GI: Palpation (GI): Soft to palpation and nontender <SAULO [place] - Last Filed: 09/30/21 12:58> Neuro: General: patient oriented x3 <SAULO [place] - Last Filed: 09/30/21 12:58> Extrem: Other: right foot; left toe clean/dry/intact dressings <SAULO [place] - Last Filed: 09/30/21 12:58> Objective Data Active Medications Acetaminophen (Acetaminophen 325 Mg Tablet) 650 mg PO Q6H PRN PRN Reason: Pain, Mild (Pain Scale 1-3) Last Admin: 09/29/21 17:01 Dose: 650 mg Documented by: OCRAL Alprazolam (Alprazolam 0.5 Mg Tablet) 1 mg PO DAILY PRN PRN Reason: Anxiety Alprazolam (Alprazolam 0.5 Mg Tablet) 2 mg PO BID PRN PRN Reason: anxiety Last Admin: 09/29/21 21:48 Dose: 2 mg Documented by: CLIFF Amlodipine Besylate (Amlodipine Besylate 10 Mg Tablet) 10 mg PO DAILY [facility]; Protocol Last Admin: 09/30/21 08:21 Dose: 10 mg Documented by: YOBANI Gabapentin (Gabapentin 400 Mg Capsule) 400 mg PO QID [facility] Last Admin: 09/30/21 12:21 Dose: 400 mg Documented by: YOBANI Heparin Sodium (Porcine) (Heparin Sodium,Porcine 5,000 Unit/Ml Vial) 5,000 unit SUBCUT Q12H [facility] Last Admin: 09/30/21 05:05 Dose: 5,000 unit Documented by: CLIFF Heparin Sodium (Porcine) (Heparin Sodium,Porcine Flush 50 Units/5 Ml Syringe) 50 units IVFLUSH QSHIFT [facility] Last Admin: 09/30/21 08:23 Dose: 50 units Documented by: YOBANI Hydromorphone HCl (Hydromorphone Hcl 1 Mg/Ml Syringe) 1 mg IVPUSH Q4H PRN; Protocol PRN Reason: pain Last Admin: 09/30/21 10:23 Dose: 1 mg Documented by: YOBANI Vancomycin HCl 1,250 mg/ (Sodium Chloride) 250 mls @ 166.667 mls/hr IV Q24H [facility] Insulin Glargine (Insulin Glargine,Hum.Rec.Anlog 100 Unit/Ml 10 Ml Vial) 35 unit SUBCUT BEDTIME [facility] Last Admin: 09/29/21 21:56 Dose: 35 unit Documented by: CLIFF Insulin Human Lispro (Insulin Lispro 100 Unit/Ml 3 Ml Vial) 0 unit SUBCUT QIDACHS [facility]; Protocol Last Admin: 09/30/21 12:20 Dose: 2 unit Documented by: YOBANI Lisinopril (Lisinopril 10 Mg Tablet) 10 mg PO DAILY [facility]; Protocol Last Admin: 09/30/21 08:21 Dose: 10 mg Documented by: YOBANI Methadone HCl (Methadone Hcl 20 Mg/2 Ml Oral.Conc) 10 mg PO DAILY [facility] Last Admin: 09/30/21 08:22 Dose: 10 mg Documented by: YOBANI Nicotine (Nicotine 21 Mg Patch.Td24) 21 mg TRANSDERMA DAILY [facility] Last Admin: 09/30/21 08:20 Dose: 21 mg Documented by: YOBANI Ondansetron HCl (Ondansetron Hcl 4 Mg/2 Ml Vial) 4 mg IVPUSH Q8H PRN PRN Reason: Nausea and Vomiting Last Admin: 09/25/21 13:22 Dose: 4 mg Documented by: BLAKE Oxycodone HCl (Oxycodone Hcl Immed Release 5 Mg Tablet) 10 mg PO Q4H PRN PRN Reason: pain Last Admin: 09/30/21 12:25 Dose: 10 mg Documented by: YOBANI Pharmacy Consult (Consult Rx Perform Med Rec) 1 each MISCELLANE ONCE PRN PRN Reason: Consult order Potassium Chloride (Potassium Chloride Er 20 Meq Tab.Er.Prt) 40 meq PO DAILY [facility] Last Admin: 09/30/21 08:20 Dose: 40 meq Documented by: YOBANI Sodium Chloride (0.9 % Sodium Chloride Flush 3 Ml Syringe) 3 ml IVFLUSH QSHIFT [facility] Last Admin: 09/30/21 08:23 Dose: 3 ml Documented by: YOBANI <SAULO Dallas - Last Filed: 09/30/21 12:58> Labs CBC & Chem 7: : 10/01/21 06:14 10/01/21 05:48 <SAULO Dallas - Last Filed: 09/30/21 12:58> Labs: Laboratory Results - last 24 hr 09/29/21 09/29/21 09/30/21 15:17 19:47 05:35 Anion Gap Estim Creat Clear Calc Estimated GFR POC Glucose 162 H 185 H Random Glucose Calcium Vancomycin Trough 14.1 09/30/21 09/30/21 09/30/21 05:35 05:35 08:09 Anion Gap 18 Estim Creat Clear Calc 70.6 Cancelled Estimated GFR 58 Cancelled POC Glucose 194 H Random Glucose 194 H Calcium 9.1 D Vancomycin Trough 09/30/21 11:20 Anion Gap Estim Creat Clear Calc Estimated GFR POC Glucose 188 H Random Glucose Calcium Vancomycin Trough <SAULO [place] - Last Filed: 09/30/21 12:58> Microbiology Microbiology Results: Microbiology 09/24/21 16:00 Blood Culture - Final Blood - Venous No growth after 5 days. 09/24/21 15:57 Blood Culture - Final Blood - Venous No growth after 5 days. 09/26/21 13:26 Stool Culture - Final Stool Phyllis albicans <SAULO Dallas - Last Filed: 09/30/21 12:58> Assessment and Plan (1) Status post transmetatarsal amputation of right foot: Status: Acute <SAULO [place] - Last Filed: 09/30/21 12:58> (2) MRSA bacteremia: Status: Acute <SAULO [place] - Last Filed: 09/30/21 12:58> (3) Opioid use disorder: Status: Acute <SAULO [place] - Last Filed: 09/30/21 12:58> (4) Osteomyelitis: Status: Acute <SAULO [place] - Last Filed: 09/30/21 12:58> Plan This is a 51 yo F with a PMH of DM, OUD (snorts heroin), anxiety, who presents to the hospital with R foot pain. Her presentation is consistent with sepsis secondary to osteomyelitis. MRSA bacteremia Related to osteomyelitis 08/08 BCx growing MRSA, repeat blood cultures negative PICC line placed 09/28 with plan for 6 weeks of vancomycin from first negative blood cultures (09/24) Sepsis secondary to osteomyelitis/septic arthritis of the R 1st TMP joint, Osteo the L Great Toe. 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 not on meds at baseline continue norvasc 10 mg, will increase lisinopril from 5mg to 10mg Hypokalemia/hypomagnesemia resolved Diarrhea. 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 Due to substance abuse issues she is unable to go home with a PICC line Full Code DVT pptx, subcut. heparin Attending: Dr. Mei <SAULO Dallas - Last Filed: 09/30/21 12:58> Quality Stroke Does the patient have a stroke diagnosis?: No <SAULO [place] - Last Filed: 09/30/21 12:58> VTE Prior VTE?: No <SAULO [place] - Last Filed: 09/30/21 12:58> VTE Risk Level:: Medical - moderate - high <SAULO Dallas Last Filed: 09/30/21 12:58> VTE Device Contraindication: Treatment Not Indicated <SAULO [place] Last Filed: 09/30/21 12:58> VTE Drug Contraindication: N/A - Med Ordered <SAULO Dallas Last Filed: 09/30/21 12:58>
--- NOTE | 2021-09-30 14:11 | MHC.CM.PN ---
Addendum entered by Maci Ruelas RN 09/30/21 14:33: CM RECEIVED CALL FROM LETTY FROM [facility] CONFIRMING THEY WILL NOT BE ABLE TO TAKE PT D/T ACTIVELY USING. Original Note: EMR REVIEWED, PER PHYSICAL THERAPY PT CONT'S TO DO POORLY AND NEEDS STR, PT CONT'S TO RECEIVE IV ABX HOWEVER IF PT IMPROVES ENOUGH TO GO HOME SHE CAN BE TRANSITIONED TO ORAL ABX PER HOSPITALIST/ID. CM HAS REACHED OUT TO [facility] AND [facility] CM HAS NOT RECEIVED A RESPONSE, ALSO MESSAGE SENT TO [facility] THEY WERE GOING TO CHECK W/EDUCATION PROFESSOR IF THEY COULD APPROVE PT ALTHOUGH THEIR POLICY WOULD BE TO NOT TAKE A SA PT WHILE INPT IN ACUTE HOSPITAL. ' CM MET W/PT WHO REPORTED SHE HAS LOST MONEY WHILE HERE HOWEVER PT UNABLE TO GIVE CM AN AMT AND PT HAS 2 PT BELONGING LISTS AND THERE IS NO MONEY DOCUMENTED ON EITHER LIST. CM WILL CONT TO FOLLOW D/C NEEDS.
[2021-09-30] MEDS: vancomycin HCL 1,250 MG in 0.9 % Sodium Chloride 250 ML 166.67 MG IV (14:12)
[2021-09-30] MEDS: HYDROmorphone HCl 1 MG/ML SYRINGE 0.5 MG IVPUSH ×2 (14:25→19:32)
[2021-09-30 15:34] VITALS: BP 184/84; PULSE 84; RESP 16; TEMP 36.9; O2SAT 97
[2021-09-30 16:01] LABS: Glucose, Whole Blood 149 mg/dL (60-115)
[2021-09-30 19:06] VITALS: BP 164/71; PULSE 88; RESP 16; TEMP 37.1; O2SAT 97
[2021-09-30 19:58] LABS: Glucose, Whole Blood 206 mg/dL (60-115)
[2021-09-30] MEDS: ALPRAZolam 0.5 MG TABLET 2 MG PO (21:15)
[2021-09-30] MEDS: Insulin Glargine,Hum.rec.anlog 100 UNIT/ML 10 ML VIAL 35 UNIT SUBCUT (21:16)
[2021-10-01] VITALS (7 sets, daily range): BP systolic 137–171; BP diastolic 72–80; PULSE 69–83; RESP 16–18; TEMP 36–37.7; O2SAT 95–99
[2021-10-01] MEDS: HYDROmorphone HCl 1 MG/ML SYRINGE 0.5 MG IVPUSH ×3 (01:13→10:23)
[2021-10-01] MEDS: Heparin Sodium,Porcine Flush 50 UNITS/5 ML SYRINGE IVFLUSH ×3 (01:13→14:33)
[2021-10-01] MEDS: oxyCODONE HCl Immed Release 5 MG TABLET 10 MG PO ×2 (03:03→12:37)
[2021-10-01] MEDS: Heparin Sodium,Porcine 5,000 UNIT/ML VIAL 5000 UNIT SUBCUT ×2 (05:52→17:26)
[2021-10-01 06:26] LABS: Hematocrit 32.8 % (37.0-47.0); Hemoglobin 10.1 g/dl (12.0-16.0); Mean Corpuscular HGB Conc 30.8 g/dl (31.0-35.0); Mean Corpuscular Hemoglobin 26.3 pg (27.0-33.0); Mean Corpuscular Volume 85.4 fL (80.0-98.0); Mean Platelet Volume 9.6 fL (9.4-12.3); Platelet Count 665 X10*3/uL (160-400); Red Blood Count 3.84 X10*6/uL (4.20-5.50); Red Cell Distribution Width 14.9 % (11.0-16.0); White Blood Count 13.3 X10*3/uL (4.8-10.8)
[2021-10-01 06:52] LABS: Anion Gap 19 (12-20); Blood Urea Nitrogen 18 mg/dL (9-16); Carbon Dioxide 21 mmol/L (22-29); Chloride 103 mmol/L (96-108); Creatinine Clr Calc Pharmacy 75.9; Estimated Glomerular Filt Rate > 60; Glucose Random 131 mg/dL (60-115); Potassium 4.1 mmol/L (3.3-5.1); Sodium 139 mmol/L (135-145)
[2021-10-01 07:36] LABS: Glucose, Whole Blood 109 mg/dL (60-115)
--- NOTE | 2021-10-01 08:46 | HE.PHANOTE ---
Vancomycin addendum Ordered trough for 09/29/21 @1200, will monitor closely.
[2021-10-01] MEDS: Potassium Chloride ER 20 MEQ TAB.ER.PRT 40 MEQ PO (09:21)
[2021-10-01] MEDS: Nicotine 21 MG PATCH.TD24 TRANSDERMA (09:21)
[2021-10-01] MEDS: Gabapentin 400 MG CAPSULE PO ×4 (09:21→20:08)
[2021-10-01] MEDS: amLODIPine Besylate 10 MG TABLET PO (09:21)
[2021-10-01] MEDS: lisinopriL 10 MG TABLET PO (09:21)
[2021-10-01] MEDS: 0.9 % Sodium Chloride Flush 3 ML SYRINGE IVFLUSH ×3 (09:22→20:08)
[2021-10-01] MEDS: methADONE HCl 20 MG/2 ML ORAL.CONC 10 MG PO (09:22)
[2021-10-01] MEDS: ALPRAZolam 0.5 MG TABLET 2 MG PO ×2 (10:25→20:21)
[2021-10-01 11:58] LABS: Glucose, Whole Blood 234 mg/dL (60-115)
[2021-10-01] MEDS: Insulin Lispro 100 UNIT/ML 3 ML VIAL SUBCUT ×2 (11:59→20:08)
--- NOTE | 2021-10-01 12:03 | P.PNIM_ITS ---
Subjective Subjective Date of Service: 10/01/21 Interval History: seen and examined this morning having some nausea today doesn't feel up to doing much no significant foot pain at this time Review of Systems Review of Systems: Yes all other systems are reviewed and are negative Constitutional Constitutional: Denies chills and Denies fever(s) Cardiovascular Cardiovascular: Denies dyspnea Respiratory Respiratory: Denies cough and Denies dyspnea Gastrointestinal Gastrointestinal: Denies abdominal pain, Reports nausea and Denies vomiting Physical Exam Vital Signs: Vital Signs: Last Vital Signs Temp 97.7 F 10/01/21 11:39 Pulse 83 10/01/21 11:39 Resp 18 10/01/21 11:39 BP 156/74 H 10/01/21 11:39 Pulse Ox 99 10/01/21 11:39 BMI result Body Mass Index 26.2 Const: General: cooperative, no acute distress, alert and awake Nutritional Appearance: overweight Orientation/consciousness: patient oriented x3 Resp: Effort & Inspection: normal respiratory effort and able to speak in complete sentences Cardio: Rate: regular rate Heart sounds: S1 normal heart sound present and S2 normal heart sound present GI: Inspection: No distended Palpation (GI): Soft to palpation and nontender Neuro: General: patient oriented x3 Extrem: Other: left great toe dry ulcer no drainage no eythema; right foot c/d/i dressing Objective Data Active Medications Acetaminophen (Acetaminophen 325 Mg Tablet) 650 mg PO Q6H PRN PRN Reason: Pain, Mild (Pain Scale 1-3) Last Admin: 09/29/21 17:01 Dose: 650 mg Documented by: CORAL Alprazolam (Alprazolam 0.5 Mg Tablet) 1 mg PO DAILY PRN PRN Reason: Anxiety Alprazolam (Alprazolam 0.5 Mg Tablet) 2 mg PO BID PRN PRN Reason: anxiety Last Admin: 10/01/21 10:25 Dose: 2 mg Documented by: DAR Amlodipine Besylate (Amlodipine Besylate 10 Mg Tablet) 10 mg PO DAILY [facility]; Protocol Last Admin: 10/01/21 09:21 Dose: 10 mg Documented by: DAR Gabapentin (Gabapentin 400 Mg Capsule) 400 mg PO QID [facility] Last Admin: 10/01/21 09:21 Dose: 400 mg Documented by: DAR Heparin Sodium (Porcine) (Heparin Sodium,Porcine 5,000 Unit/Ml Vial) 5,000 unit SUBCUT Q12H [facility] Last Admin: 10/01/21 05:52 Dose: 5,000 unit Documented by: CLIFF Heparin Sodium (Porcine) (Heparin Sodium,Porcine Flush 50 Units/5 Ml Syringe) 50 units IVFLUSH QSHIFT [facility] Last Admin: 10/01/21 09:22 Dose: 50 units Documented by: DAR Hydromorphone HCl (Hydromorphone Hcl 1 Mg/Ml Syringe) 0.5 mg IVPUSH Q4H PRN; Protocol PRN Reason: pain Last Admin: 10/01/21 10:23 Dose: 0.5 mg Documented by: DAR Vancomycin HCl 1,250 mg/ (Sodium Chloride) 250 mls @ 166.667 mls/hr IV Q24H [facility] Last Infusion: 09/30/21 15:46 Dose: 0 mls/hr Documented by: ADRIANA Insulin Glargine (Insulin Glargine,Hum.Rec.Anlog 100 Unit/Ml 10 Ml Vial) 35 unit SUBCUT BEDTIME [facility] Last Admin: 09/30/21 21:16 Dose: 35 unit Documented by: CLIFF Insulin Human Lispro (Insulin Lispro 100 Unit/Ml 3 Ml Vial) 0 unit SUBCUT QIDACHS [facility]; Protocol Last Admin: 10/01/21 07:38 Dose: Not Given Documented by: CLIFF Non-Admin Reason: No Insulin Coverage Lisinopril (Lisinopril 10 Mg Tablet) 10 mg PO DAILY [facility]; Protocol Last Admin: 10/01/21 09:21 Dose: 10 mg Documented by: DAR Methadone HCl (Methadone Hcl 20 Mg/2 Ml Oral.Conc) 10 mg PO DAILY [facility] Last Admin: 10/01/21 09:22 Dose: 10 mg Documented by: DAR Nicotine (Nicotine 21 Mg Patch.Td24) 21 mg TRANSDERMA DAILY [facility] Last Admin: 10/01/21 09:21 Dose: 21 mg Documented by: DAR Ondansetron HCl (Ondansetron Hcl 4 Mg/2 Ml Vial) 4 mg IVPUSH Q8H PRN PRN Reason: Nausea and Vomiting Last Admin: 09/25/21 13:22 Dose: 4 mg Documented by: BLAKE Pharmacy Consult (Consult Rx Perform Med Rec) 1 each MISCELLANE ONCE PRN PRN Reason: Consult order Potassium Chloride (Potassium Chloride Er 20 Meq Tab.Er.Prt) 40 meq PO DAILY [facility] Last Admin: 10/01/21 09:21 Dose: 40 meq Documented by: DAR Sodium Chloride (0.9 % Sodium Chloride Flush 3 Ml Syringe) 3 ml IVFLUSH QSHIFT [facility] Last Admin: 10/01/21 09:22 Dose: 3 ml Documented by: DAR Labs CBC & Chem 7: 10/01/21 06:14 10/01/21 05:48 Labs: Laboratory Results - last 24 hr 09/30/21 09/30/21 10/01/21 15:54 19:51 05:48 MCV MCH MCHC RDW Plt Count MPV Absolute Nucleated RBC Nucleated RBC % (auto) Anion Gap 19 Estim Creat Clear Calc 75.9 Estimated GFR > 60 POC Glucose 149 H 206 H Random Glucose 131 H Calcium 9.0 10/01/21 10/01/21 10/01/21 06:14 07:20 11:39 MCV 85.4 MCH 26.3 L MCHC 30.8 L RDW 14.9 Plt Count 665 H MPV 9.6 Absolute Nucleated RBC 0.000 Nucleated RBC % (auto) 0.0 Anion Gap Estim Creat Clear Calc Estimated GFR POC Glucose 109 234 H Random Glucose Calcium Assessment and Plan (1) Status post transmetatarsal amputation of right foot: Status: Acute (2) MRSA bacteremia: Status: Acute (3) Opioid use disorder: Status: Acute Plan This is a 51 yo F with a PMH of DM, OUD (snorts heroin), anxiety, who presents to the hospital with R foot pain. Her presentation is consistent with sepsis secondary to osteomyelitis. MRSA bacteremia Related to osteomyelitis 1/ BCx growing MRSA, repeat blood cultures negative PICC line placed 09/28 with plan for 6 weeks of vancomycin from first negative blood cultures (09/24). Alternatively if pt unable to be placed, can be d/c with zyvox & levaquin for same duration Sepsis secondary to osteomyelitis/septic arthritis of the R 1st TMP joint, Osteo the L Great Toe. Resolved Initially treated with IV vanco and zosyn; BCx growing MRSA, seen by ID, zosyn d/c; continue IV vanco s/p Right TMA 09/24 ID following will need intermediate antibiotics for left great toe osteo, see above pain management, will start to wean IV pain meds HTN bp improving not on meds at baseline continue norvasc 10 mg, lisinopril increased to 10mg 09/30 Hypokalemia/hypomagnesemia resolved Diarrhea. 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 Due to substance abuse she is unable to go home with a PICC line. Currently PT rec STR Full Code DVT pptx, subcut. heparin Attending: Dr. Chaudhari Quality Stroke Does the patient have a stroke diagnosis?: No VTE Prior VTE?: No VTE Risk Level:: Medical - moderate - high VTE Device Contraindication: Treatment Not Indicated VTE Drug Contraindication: N/A - Med Ordered
[2021-10-01 13:14] LABS: Vancomycin Trough 12.4 mcg/mL (10.0-20.0)
--- NOTE | 2021-10-01 13:21 | MHC.RECOVRN ---
Pt would like to be linked to [facility] in [place] as an OTP. ANNABELLA obtained, referral faxed. Pt aware.
--- NOTE | 2021-10-01 13:30 | HE.PHANOTE ---
Vancomycin addendum Will keep dose at 1250mg Q24H, next trough to be drawn at 1200 on 10/02/21. Continue to monitor renal function daily.
[2021-10-01] MEDS: vancomycin HCL 1,250 MG in 0.9 % Sodium Chloride 250 ML 166.67 MG IV (14:32)
[2021-10-01] MEDS: HYDROmorphone HCl 1 MG/ML SYRINGE 0.25 MG IVPUSH ×2 (14:44→20:09)
--- NOTE | 2021-10-01 15:19 | HO.ADDICTPRO ---
Subjective Subjective Date of Service: 10/01/21 Reason For Visit: LEG INFECTION W/PAIN, H/O DM Guardianship: No Medical Problems Affecting Mental Status: No Interim History: Patient reports that the 10 mg of methadone is helping manage cravings at this time. Still receiving opioid pain medications. Medication Compliance: Yes Side effects from medications: No Review of Systems Acute medical concerns: Yes Status post trans metatarsal amputation of right foot. MRSA bacteremia Medical Review of Systems: unchanged Review of Systems Review of Systems Yes all other systems are reviewed and are negative Constitutional: Reports no additional constitutional complaints Mental Status Exam Mental Status Exam Narrative: Somewhat unkempt, overweight female, resting in bed. Tearful at times. Patient Appearance: Fatigued, Disheveled and Unkempt Patient Orientation: Person, Place, Time and Situation Level of Consciousness: Awake, Appropriate and Alert Patient Behavior: Appropriate, Cooperative and Good Eye Contact Mood Description: Appropriate, Depressed and Anxious Affect Description: Appropriate, Depressed and Anxious Patient Cognition Impaired: No Ability to Follow Directions: Good Speech Pattern: Clear, Appropriate and Coherent Memory Description: Intact Hallucinations: None Delusions: Not Present Thought Process: Intact, Goal Oriented and Linear Thought Content: positive for Intact, positive for Goal Oriented, positive for Linear and positive for Logical Depressive Symptoms: Increased Anxiety, Crying Spells, Feelings of Guilt and Increased Fatigue Judgement: Fair Diagnostics Vital Signs (24Hr): Vital Signs - 24 hr 09/30/21 15:34 09/30/21 19:06 10/01/21 00:00 Temperature 98.5 F 98.8 F 97.3 F Pulse Rate 84 88 74 Respiratory Rate 16 16 18 Blood Pressure 184/84 H 164/71 H 168/80 H Pulse Oximetry 97 97 97 10/01/21 04:00 10/01/21 07:23 10/01/21 11:39 Temperature 97.3 F 96.8 F 97.7 F Pulse Rate 72 72 83 Respiratory Rate 18 18 18 Blood Pressure 162/72 H 161/74 H 156/74 H Pulse Oximetry 97 97 99 10/01/21 12:38 Temperature Pulse Rate 83 Respiratory Rate Blood Pressure 156/74 H Pulse Oximetry 99 BMI result Body Mass Index 26.2 Labs Results: 10/01/21 06:14 10/01/21 05:48 Labs: Laboratory Results - last 48 hr 09/29/21 09/29/21 09/30/21 15:17 19:47 05:35 WBC RBC Hgb Hct MCV MCH MCHC RDW Plt Count MPV Absolute Nucleated RBC Nucleated RBC % (auto) Sodium Potassium Chloride Carbon Dioxide Anion Gap BUN Creatinine Estim Creat Clear Calc Estimated GFR POC Glucose 162 H 185 H Random Glucose Calcium Vancomycin Trough 14.1 09/30/21 09/30/21 09/30/21 05:35 05:35 08:09 WBC RBC Hgb Hct MCV MCH MCHC RDW Plt Count MPV Absolute Nucleated RBC Nucleated RBC % (auto) Sodium 140 Potassium 3.8 D Chloride 102 Carbon Dioxide 24 Anion Gap 18 BUN 18 H D Creatinine 1.00 Cancelled Estim Creat Clear Calc 70.6 Cancelled Estimated GFR 58 Cancelled POC Glucose 194 H Random Glucose 194 H Calcium 9.1 D Vancomycin Trough 09/30/21 09/30/21 09/30/21 11:20 15:54 19:51 WBC RBC Hgb Hct MCV MCH MCHC RDW Plt Count MPV Absolute Nucleated RBC Nucleated RBC % (auto) Sodium Potassium Chloride Carbon Dioxide Anion Gap BUN Creatinine Estim Creat Clear Calc Estimated GFR POC Glucose 188 H 149 H 206 H Random Glucose Calcium Vancomycin Trough 10/01/21 10/01/21 10/01/21 05:48 06:14 07:20 WBC 13.3 H RBC 3.84 L Hgb 10.1 L Hct 32.8 L MCV 85.4 MCH 26.3 L MCHC 30.8 L RDW 14.9 Plt Count 665 H MPV 9.6 Absolute Nucleated RBC 0.000 Nucleated RBC % (auto) 0.0 Sodium 139 Potassium 4.1 Chloride 103 Carbon Dioxide 21 L Anion Gap 19 BUN 18 H Creatinine 0.93 Estim Creat Clear Calc 75.9 Estimated GFR > 60 POC Glucose 109 Random Glucose 131 H Calcium 9.0 Vancomycin Trough 10/01/21 10/01/21 11:39 12:19 WBC RBC Hgb Hct MCV MCH MCHC RDW Plt Count MPV Absolute Nucleated RBC Nucleated RBC % (auto) Sodium Potassium Chloride Carbon Dioxide Anion Gap BUN Creatinine Estim Creat Clear Calc Estimated GFR POC Glucose 234 H Random Glucose Calcium Vancomycin Trough 12.4 Imaging Radiology Impressions: ITS Impressions Venous Duplex 09/21/21 13:48 IMPRESSION: No DVT demonstrated in the left lower extremity. Cervical Spine CT 09/21/21 15:17 IMPRESSION: Mild degenerative changes. No fracture or dislocation seen. Fleischner guidelines were followed. Head CT 09/21/21 15:17 IMPRESSION: No acute intracranial findings. Sinus disease. Foot X-Ray 09/21/21 15:22 IMPRESSION: Bone destruction and soft tissue loss of the distal great toe suggestive of osteomyelitis. Foot X-Ray 09/21/21 15:22 IMPRESSION: Fracture dislocation of the first MTP joint with osteopenia and bone destruction questionable for septic arthritis/osteomyelitis. Destruction of the phalanx and metatarsal head and distal shaft of the second toe suggestive of osteomyelitis. Probable postsurgical amputation of the third toe. New soft tissue foreign body adjacent to the plantar fourth metatarsal head. New fracture of the distal shaft or neck of the fifth metatarsal bone. Hand X-Ray 09/21/21 15:22 IMPRESSION: Question old trauma to the ulnar styloid and soft tissues lateral to the fifth JAIL joint and dorsal wrist and distal forearm. No acute fracture or dislocation. Mild arthritis at the first JAIL joint. Knee X-Ray 09/21/21 15:22 IMPRESSION: Degenerative changes and joint effusion. Question old subchondral injury of the medial femoral condyle. Medications Medications Current Medications Acetaminophen (Acetaminophen 325 Mg Tablet) 650 mg PO Q6H PRN PRN Reason: Pain, Mild (Pain Scale 1-3) Last Admin: 09/29/21 17:01 Dose: 650 mg Documented by: Alprazolam (Alprazolam 0.5 Mg Tablet) 1 mg PO DAILY PRN PRN Reason: Anxiety Alprazolam (Alprazolam 0.5 Mg Tablet) 2 mg PO BID PRN PRN Reason: anxiety Last Admin: 10/01/21 10:25 Dose: 2 mg Documented by: Amlodipine Besylate (Amlodipine Besylate 10 Mg Tablet) 10 mg PO DAILY ON LICENSE OF [facility]; Protocol Last Admin: 10/01/21 09:21 Dose: 10 mg Documented by: Gabapentin (Gabapentin 400 Mg Capsule) 400 mg PO QID ON LICENSE OF [facility] Last Admin: 10/01/21 11:59 Dose: 400 mg Documented by: Heparin Sodium (Porcine) (Heparin Sodium,Porcine 5,000 Unit/Ml Vial) 5,000 unit SUBCUT Q12H ON LICENSE OF [facility] Last Admin: 10/01/21 05:52 Dose: 5,000 unit Documented by: Heparin Sodium (Porcine) (Heparin Sodium,Porcine Flush 50 Units/5 Ml Syringe) 50 units IVFLUSH QSHIFT ON LICENSE OF [facility] Last Admin: 10/01/21 14:33 Dose: 50 units Documented by: Hydromorphone HCl (Hydromorphone Hcl 1 Mg/Ml Syringe) 0.25 mg IVPUSH Q4H PRN; Protocol PRN Reason: pain Last Admin: 10/01/21 14:44 Dose: 0.25 mg Documented by: Vancomycin HCl 1,250 mg/ (Sodium Chloride) 250 mls @ 166.667 mls/hr IV Q24H ON LICENSE OF [facility] Last Admin: 10/01/21 14:32 Dose: 166.67 mls/hr Documented by: Insulin Glargine (Insulin Glargine,Hum.Rec.Anlog 100 Unit/Ml 10 Ml Vial) 35 unit SUBCUT BEDTIME ON LICENSE OF [facility] Last Admin: 09/30/21 21:16 Dose: 35 unit Documented by: Insulin Human Lispro (Insulin Lispro 100 Unit/Ml 3 Ml Vial) 0 unit SUBCUT QIDACHS ON LICENSE OF [facility]; Protocol Last Admin: 10/01/21 11:59 Dose: 4 unit Documented by: Lisinopril (Lisinopril 10 Mg Tablet) 10 mg PO DAILY ON LICENSE OF [facility]; Protocol Last Admin: 10/01/21 09:21 Dose: 10 mg Documented by: Methadone HCl (Methadone Hcl 20 Mg/2 Ml Oral.Conc) 10 mg PO DAILY ON LICENSE OF [facility] Last Admin: 10/01/21 09:22 Dose: 10 mg Documented by: Nicotine (Nicotine 21 Mg Patch.Td24) 21 mg TRANSDERMA DAILY ON LICENSE OF [facility] Last Admin: 10/01/21 09:21 Dose: 21 mg Documented by: Ondansetron HCl (Ondansetron Hcl 4 Mg/2 Ml Vial) 4 mg IVPUSH Q8H PRN PRN Reason: Nausea and Vomiting Last Admin: 09/25/21 13:22 Dose: 4 mg Documented by: Oxycodone HCl (Oxycodone Hcl Immed Release 5 Mg Tablet) 10 mg PO Q6H PRN PRN Reason: Pain, Moderate (Pain Scale 4-6 Last Admin: 10/01/21 12:37 Dose: 10 mg Documented by: Pharmacy Consult (Consult Rx Perform Med Rec) 1 each MISCELLANE ONCE PRN PRN Reason: Consult order Potassium Chloride (Potassium Chloride Er 20 Meq Tab.Er.Prt) 40 meq PO DAILY ON LICENSE OF [facility] Last Admin: 10/01/21 09:21 Dose: 40 meq Documented by: Sodium Chloride (0.9 % Sodium Chloride Flush 3 Ml Syringe) 3 ml IVFLUSH QSHIFT ON LICENSE OF [facility] Last Admin: 10/01/21 14:34 Dose: 3 ml Documented by: Allergies Allergies Allergy/AdvReac Type Severity Reaction Status Date / Time prednisone [PREDNISONE] Allergy Unknown RASH Verified 09/24/21 11:47 Assessment & Plan Assessment & Plan (1) Opioid use disorder: Status: Acute Code(s): F11.90 - Opioid use, unspecified, uncomplicated Assessment and Plan: Patient reports 10 mg of methadone is helping at this time to reduce cravings. Discussed requirements most methadone clinics, including cessation of other opioid medications prior to daily dosing of methadone. She stated she understood. Discussed considering increasing methadone dose as she begins to titrate down off of opioid pain medications. She was in agreement with this plan. She was tearful at times during encounter. Currently receives Xanax and sertraline, as prescribed by outpatient psych provider. Reports that she is anxious regarding coordination of methadone clinic when she leaves this hospital, as she wishes to maintain abstinence and does not want to relapse. Plan Addiction: 1. Continue with methadone 10 today. 2. Will titrate methadone up as other opioid medications are decreased. 3. Patient has been referred to an outpatient methadone Clinic, which she will attend when she is discharged from here. 4. Addiction team will continue to follow. This is a 51 yo F with a PMH of DM, OUD (snorts heroin), anxiety, who presents to the hospital with R foot pain. Her presentation is consistent with sepsis secondary to osteomyelitis. MRSA bacteremia Related to osteomyelitis 1/ BCx growing MRSA, repeat blood cultures negative PICC line placed 09/28 with plan for 6 weeks of vancomycin from first negative blood cultures (09/24). Alternatively if pt unable to be placed, can be d/c with zyvox & levaquin for same duration Sepsis secondary to osteomyelitis/septic arthritis of the R 1st TMP joint, Osteo the L Great Toe. 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 Due to substance abuse she is unable to go home with a PICC line. Currently PT rec STR Full Code DVT pptx, subcut. heparin Attending: Dr. Chaudhari I spent minutes with the patient and/or on the patient floor today, greater than?50% of which was spent counseling/coordinating care.
[2021-10-01 16:00] LABS: Glucose, Whole Blood 116 mg/dL (60-115)
--- NOTE | 2021-10-01 16:34 | MHC.CM.PN ---
CM CONTACTED [facility] D/T NOT HEARING BACK AND PER [facility] CM THEY ARE NOT FINISHED REVIEWING PT AND WILL FOLLOW-UP W/CM ON WEDNESDAY 10/04, CM METW/PT WHO REPORTED SHE IS WILLING TO GO FAR [facility] AND WAS CONCERNED ABOUT TRANSPORTATION HOME, CM REASSURED HER THAT THEY WOULD PROVIDE TRANSPORTATION AND PT'S SON-IN-LAW ALSO REPORTED IF HE HAD TO HE COULD PROVIDE TRANSPORTATION HOME. PT GAVE VERBAL CONSENT FOR CM TO SPEAK W/DTR [place] AND SON IN [place] TO DISCUSS DCP AND GIVE INFORMATION ABOUT WHERE TO RECOVERY COORDINATOR PT'S DME THAT SHE WILL NEED. [place] AND [place] AWARE PT WILL REMAIN INPT THROUGH MONDAY AND IF NOT OFFERED A BED SHE WILL D/C HOME W/SERVICES. CM WILL CONT TO FOLLOW D/C NEEDS.
[2021-10-01 19:55] LABS: Glucose, Whole Blood 180 mg/dL (60-115)
[2021-10-01] MEDS: Insulin Glargine,Hum.rec.anlog 100 UNIT/ML 10 ML VIAL 35 UNIT SUBCUT (20:08)
[2021-10-02] VITALS (7 sets, daily range): BP systolic 110–177; BP diastolic 59–84; PULSE 60–79; RESP 18–20; TEMP 36.2–37.1; O2SAT 97–99
[2021-10-02] MEDS: HYDROmorphone HCl 1 MG/ML SYRINGE 0.25 MG IVPUSH ×5 (00:11→21:30)
[2021-10-02] MEDS: Heparin Sodium,Porcine Flush 50 UNITS/5 ML SYRINGE IVFLUSH ×2 (00:11→16:36)
[2021-10-02] MEDS: Heparin Sodium,Porcine 5,000 UNIT/ML VIAL 5000 UNIT SUBCUT ×2 (05:32→18:09)
[2021-10-02 06:50] LABS: Creatinine Clr Calc Pharmacy 79.4; Estimated Glomerular Filt Rate > 60
[2021-10-02 07:38] LABS: Glucose, Whole Blood 134 mg/dL (60-115)
[2021-10-02] MEDS: ALPRAZolam 0.5 MG TABLET 2 MG PO (08:39)
[2021-10-02] MEDS: Nicotine 21 MG PATCH.TD24 TRANSDERMA (08:40)
[2021-10-02] MEDS: methADONE HCl 20 MG/2 ML ORAL.CONC 10 MG PO ×2 (08:40→15:06)
[2021-10-02] MEDS: lisinopriL 10 MG TABLET PO (08:41)
[2021-10-02] MEDS: oxyCODONE HCl Immed Release 5 MG TABLET 10 MG PO (08:42)
[2021-10-02] MEDS: Gabapentin 400 MG CAPSULE PO ×4 (08:42→21:21)
[2021-10-02] MEDS: Acetaminophen 325 MG TABLET 650 MG PO (08:44)
[2021-10-02] MEDS: amLODIPine Besylate 10 MG TABLET PO (08:44)
[2021-10-02] MEDS: Potassium Chloride ER 20 MEQ TAB.ER.PRT 40 MEQ PO (08:45)
[2021-10-02] MEDS: 0.9 % Sodium Chloride Flush 3 ML SYRINGE IVFLUSH ×2 (08:46→16:36)
--- NOTE | 2021-10-02 11:09 | P.PNIM_ITS ---
Subjective Subjective Date of Service: 10/02/21 <SAULO [place] - Last Filed: 10/02/21 11:29> 10/02/21 <Sammy Silva DO - Last Filed: 10/02/21 18:38> Interval History: seen and examined this morning feeling well, no specific complaints no fever, chills, abdominal pain, nausea or vomiting <SAULO [place] - Last Filed: 10/02/21 11:29> Review of Systems Review of Systems: Yes all other systems are reviewed and are negative <SAULO [place] - Last Filed: 10/02/21 11:29> Constitutional Constitutional: Denies chills and Denies fever(s) <SAULO [place] - Last Filed: 10/02/21 11:29> Cardiovascular Cardiovascular: Denies dyspnea <SAULO [place] - Last Filed: 10/02/21 11:29> Respiratory Respiratory: Denies cough and Denies dyspnea <SAULO [place] - Last Filed: 10/02/21 11:29> Gastrointestinal Gastrointestinal: Denies abdominal pain, Reports diarrhea, Denies nausea and Denies vomiting <SAULO [place] - Last Filed: 10/02/21 11:29> Physical Exam Vital Signs: Vital Signs: Last Vital Signs Temp 98.4 F 10/02/21 07:12 Pulse 77 10/02/21 07:12 Resp 20 10/02/21 07:12 BP 177/84 H 10/02/21 07:12 Pulse Ox 97 10/02/21 07:12 BMI result Body Mass Index 26.2 <SAULO [place] - Last Filed: 10/02/21 11:29> Const: General: cooperative, comfortable, no acute distress, alert and awake <SAULO [place] - Last Filed: 10/02/21 11:29> Nutritional Appearance: overweight <SAULO [place] - Last Filed: 10/02/21 11:29> Orientation/consciousness: patient oriented x3 <SAULO [place] - Last Filed: 10/02/21 11:29> Resp: Effort & Inspection: normal respiratory effort and able to speak in complete sentences <SAULO [place] - Last Filed: 10/02/21 11:29> Cardio: Rate: regular rate <SAULO [place] Last Filed: 10/02/21 11:29> Heart sounds: S1 normal heart sound present and S2 normal heart sound present <SAULO [place] - Last Filed: 10/02/21 11:29> GI: Inspection: No distended <SAULO [place] - Last Filed: 10/02/21 11:29> Palpation (GI): Soft to palpation and nontender <SAULO [place] - Last Filed: 10/02/21 11:29> Neuro: General: patient oriented x3 <SAULO [place] - Last Filed: 10/02/21 11:29> Extrem: Other: left great toe dry ulcer no drainage no eythema; right foot c/d/i dressing <SAULO [place] Last Filed: 10/02/21 11:29> Objective Data Active Medications Acetaminophen (Acetaminophen 325 Mg Tablet) 650 mg PO Q6H PRN PRN Reason: Pain, Mild (Pain Scale 1-3) Last Admin: 10/02/21 08:44 Dose: 650 mg Documented by: JOSE Amlodipine Besylate (Amlodipine Besylate 10 Mg Tablet) 10 mg PO DAILY [facility]; Protocol Last Admin: 10/02/21 08:44 Dose: 10 mg Documented by: JOSE Gabapentin (Gabapentin 400 Mg Capsule) 400 mg PO QID [facility] Last Admin: 10/02/21 08:42 Dose: 400 mg Documented by: JOSE Heparin Sodium (Porcine) (Heparin Sodium,Porcine 5,000 Unit/Ml Vial) 5,000 unit SUBCUT Q12H [facility] Last Admin: 10/02/21 05:32 Dose: 5,000 unit Documented by: NINA Heparin Sodium (Porcine) (Heparin Sodium,Porcine Flush 50 Units/5 Ml Syringe) 50 units IVFLUSH QSHIFT [facility] Last Admin: 10/02/21 10:02 Dose: Not Given Documented by: JOSE Non-Admin Reason: See Note Comments: flushed with 10cc NS Hydromorphone HCl (Hydromorphone Hcl 1 Mg/Ml Syringe) 0.25 mg IVPUSH Q4H PRN; Protocol PRN Reason: pain Last Admin: 10/02/21 10:18 Dose: 0.25 mg Documented by: JOSE Comments: wasted residual dose Vancomycin HCl 1,250 mg/ (Sodium Chloride) 250 mls @ 166.667 mls/hr IV Q24H [facility] Last Infusion: 10/01/21 17:32 Dose: 0 mls/hr Documented by: DAR Insulin Glargine (Insulin Glargine,Hum.Rec.Anlog 100 Unit/Ml 10 Ml Vial) 35 un it SUBCUT BEDTIME [facility] Last Admin: 10/01/21 20:08 Dose: 35 unit Documented by: NINA Insulin Human Lispro (Insulin Lispro 100 Unit/Ml 3 Ml Vial) 0 unit SUBCUT QIDACHS [facility]; Protocol Last Admin: 10/02/21 10:02 Dose: Not Given Documented by: JOSE Non-Admin Reason: No Insulin Coverage Lisinopril (Lisinopril 10 Mg Tablet) 10 mg PO DAILY [facility]; Protocol Last Admin: 10/02/21 08:41 Dose: 10 mg Documented by: JOSE Methadone HCl (Methadone Hcl 20 Mg/2 Ml Oral.Conc) 10 mg PO DAILY [facility] Last Admin: 10/02/21 08:40 Dose: 10 mg Documented by: JOSE Nicotine (Nicotine 21 Mg Patch.Td24) 21 mg TRANSDERMA DAILY [facility] Last Admin: 10/02/21 08:40 Dose: 21 mg Documented by: JOSE Ondansetron HCl (Ondansetron Hcl 4 Mg/2 Ml Vial) 4 mg IVPUSH Q8H PRN PRN Reason: Nausea and Vomiting Last Admin: 09/25/21 13:22 Dose: 4 mg Documented by: BLAKE Oxycodone HCl (Oxycodone Hcl Immed Release 5 Mg Tablet) 10 mg PO Q6H PRN PRN Reason: Pain, Moderate (Pain Scale 4-6 Last Admin: 10/02/21 08:42 Dose: 10 mg Documented by: JOSE Pharmacy Consult (Consult Rx Perform Med Rec) 1 each MISCELLANE ONCE PRN PRN Reason: Consult order Potassium Chloride (Potassium Chloride Er 20 Meq Tab.Er.Prt) 40 meq PO DAILY [facility] Last Admin: 10/02/21 08:45 Dose: 40 meq Documented by: JOSE Sodium Chloride (0.9 % Sodium Chloride Flush 3 Ml Syringe) 3 ml IVFLUSH QSHIFT [facility] Last Admin: 10/02/21 08:46 Dose: 3 ml Documented by: JOSE <SAULO [place] - Last Filed: 10/02/21 11:29> Labs CBC & Chem 7: : 10/01/21 06:14 10/02/21 06:09 <SAULO [place] - Last Filed: 10/02/21 11:29> Labs: Laboratory Results - last 24 hr 10/01/21 10/01/21 10/01/21 11:39 12:19 15:35 Estim Creat Clear Calc Estimated GFR POC Glucose 234 H 116 H Vancomycin Trough 12.4 10/01/21 10/02/21 10/02/21 19:34 06:09 07:18 Estim Creat Clear Calc 79.4 Estimated GFR > 60 POC Glucose 180 H 134 H Vancomycin Trough <SAULO [place] - Last Filed: 10/02/21 11:29> Assessment and Plan (1) Status post transmetatarsal amputation of right foot: Status: Acute <SAULO [place] - Last Filed: 10/02/21 11:29> (2) MRSA bacteremia: Status: Acute <SAULO [place] - Last Filed: 10/02/21 11:29> (3) Opioid use disorder: Status: Acute <SAULO [place] - Last Filed: 10/02/21 11:29> Plan This is a 51 yo F with a PMH of DM, OUD (snorts heroin), anxiety, who presents to the hospital with R foot pain. Her presentation is consistent with sepsis se condary to osteomyelitis. MRSA bacteremia Related to osteomyelitis Initial blood cultures from 09/21 - 08/08 BCx growing MRSA, repeat blood cultures negative PICC line placed 09/28 with plan for 6 weeks of vancomycin from first negative blood cultures (09/24). Alternatively if pt unable to be placed, can be d/c with zyvox & levaquin for same duration Sepsis secondary to osteomyelitis/septic arthritis of the R 1st TMP joint, Osteo the L Great Toe. Resolved Initially treated with IV vanco and zosyn; BCx growing MRSA, seen by IDlyly d/c; continue IV vanco s/p Right TMA 09/24 ID following will need alf antibiotics for left great toe osteo, see above pain management, wean narcotics HTN bp improving not on meds at baseline continue norvasc 10 mg, lisinopril increased to 10mg 09/30 Hypokalemia/hypomagnesemia resolved Diarrhea. cdif negative prn imodium DM HbA1c 8.6 continue lantus, sliding scale diabetic diet Opiate use disorder See event note from 09/28/21 seen by Addiction medicine started on methadone tobacco dependence smoking cessation advised NRT Mood Continue Xanax pt initially had zoloft ordered based on med rec and supported by fill history, however pt decline during this admission and therefore was d/c DISPO Awaiting rehab facility. Due to substance abuse she is unable to go home with a PICC line. Currently PT rec STR Full Code DVT pptx, subcut. heparin Attending: Dr. Silva <SAULO [place] - Last Filed: 10/02/21 11:29> This is a 51 yo F with a PMH of DM, OUD (snorts heroin), anxiety, who presents to the hospital with R foot pain. Her presentation is consistent with sepsis secondary to osteomyelitis. MRSA bacteremia Related to osteomyelitis Initial blood cultures from 09/21 - 08/08 BCx growing MRSA, repeat blood cultures negative PICC line placed 09/28 with plan for 6 weeks of vancomycin from first negative blood cultures (09/24). Alternatively if pt unable to be placed, can be d/c with zyvox & levaquin for same duration Sepsis secondary to osteomyelitis/septic arthritis of the R 1st TMP joint, Osteo the L Great Toe. Resolved Initially treated with IV vanco and zosyn; BCx growing MRSA, seen by lyly GARCÍA d/c; continue IV vanco s/p Right TMA 09/24 ID following will need alf antibiotics for left great toe osteo, see above pain management, wean narcotics HTN bp improving not on meds at baseline continue norvasc 10 mg, lisinopril increased to 10mg 09/30 Hypokalemia/hypomagnesemia resolved Diarrhea. cdif negative prn imodium DM HbA1c 8.6 continue lantus, sliding scale diabetic diet Opiate use disorder See event note from 09/28/21 seen by Addiction medicine started on methadone tobacco dependence smoking cessation advised NRT Mood Continue Xanax pt initially had zoloft ordered based on med rec and supported by fill history, however pt decline during this admission and therefore was d/c DISPO Awaiting rehab facility. Due to substance abuse she is unable to go home with a PICC line. Currently PT rec STR Full Code DVT pptx, subcut. heparin Attending: Dr. Silva Chart reviewed. Pt examined. Agree with H+P/assesment and plan as outlined by Ms Javed VERNON <Sammy Silva DO - Last Filed: 10/02/21 18:38> Quality Stroke Does the patient have a stroke diagnosis?: No <SAULO [place] - Last Filed: 10/02/21 11:29> VTE Prior VTE?: No <SAULO [place] - Last Filed: 10/02/21 11:29> VTE Risk Level:: Medical - moderate - high <SAULO [place] - Last Filed: 10/02/21 11:29> VTE Device Contraindication: Treatment Not Indicated <SAULO [place] - Last Filed: 10/02/21 11:29> VTE Drug Contraindication: N/A - Med Ordered <SAULO [place] - Last Filed: 10/02/21 11:29>
[2021-10-02 11:42] LABS: Glucose, Whole Blood 152 mg/dL (60-115)
[2021-10-02] MEDS: Insulin Lispro 100 UNIT/ML 3 ML VIAL SUBCUT ×2 (12:24→16:47)
[2021-10-02 12:47] LABS: Vancomycin Trough 13.4 mcg/mL (10.0-20.0)
--- NOTE | 2021-10-02 13:12 | HO.ADDICTPRO ---
Subjective Subjective Date of Service: 10/02/21 Reason For Visit: LEG INFECTION W/PAIN, H/O DM Guardianship: No Medical Problems Affecting Mental Status: No Interim History: Patient reports that as her opioid pain medications are being lowered, she is beginning to experience more discomfort, although not overt withdrawals or cravings yet. Anxious regarding methadone dosing, as she does not want to relapse once discharged. former outpatient methadone dose was 80mg. Explained that initial starting dose at clinic is typically 30mg. Asking about methadone clinic, wants to know if it is arranged for day after discharge. Medication Compliance: Yes Side effects from medications: No Review of Systems Medical Review of Systems: unchanged Review of Systems Review of Systems Yes all other systems are reviewed and are negative Constitutional: Reports no additional constitutional complaints Mental Status Exam Mental Status Exam Patient Appearance: Disheveled Patient Orientation: Person, Place, Time and Situation Level of Consciousness: Awake, Appropriate and Alert Patient Behavior: Appropriate and Cooperative Mood Description: Anxious Affect Description: Anxious Patient Cognition Impaired: No Ability to Follow Directions: Good Speech Pattern: Clear, Appropriate and Coherent Memory Description: Intact Hallucinations: None Delusions: Not Present Thought Process: Intact, Goal Oriented and Linear Thought Content: positive for Goal Oriented and positive for Linear Judgement: Good Diagnostics Vital Signs (24Hr): Vital Signs - 24 hr 10/01/21 15:33 10/01/21 19:31 10/02/21 00:00 Temperature 97.7 F 99.9 F 98.1 F Pulse Rate 69 78 72 Respiratory Rate 16 18 18 Blood Pressure 137/74 171/76 H 163/75 H Pulse Oximetry 95 99 98 10/02/21 03:38 10/02/21 07:12 10/02/21 11:34 Temperature 98.3 F 98.4 F 97.2 F Pulse Rate 79 77 60 Respiratory Rate 18 20 18 Blood Pressure 159/79 H 177/84 H 110/59 L Pulse Oximetry 99 97 98 BMI result Body Mass Index 26.2 Labs Results: 10/01/21 06:14 10/02/21 06:09 Labs: Laboratory Results - last 48 hr 09/30/21 09/30/21 10/01/21 15:54 19:51 05:48 WBC RBC Hgb Hct MCV MCH MCHC RDW Plt Count MPV Absolute Nucleated RBC Nucleated RBC % (auto) Sodium 139 Potassium 4.1 Chloride 103 Carbon Dioxide 21 L Anion Gap 19 BUN 18 H Creatinine 0.93 Estim Creat Clear Calc 75.9 Estimated GFR > 60 POC Glucose 149 H 206 H Random Glucose 131 H Calcium 9.0 Vancomycin Trough 10/01/21 10/01/21 10/01/21 06:14 07:20 11:39 WBC 13.3 H RBC 3.84 L Hgb 10.1 L Hct 32.8 L MCV 85.4 MCH 26.3 L MCHC 30.8 L RDW 14.9 Plt Count 665 H MPV 9.6 Absolute Nucleated RBC 0.000 Nucleated RBC % (auto) 0.0 Sodium Potassium Chloride Carbon Dioxide Anion Gap BUN Creatinine Estim Creat Clear Calc Estimated GFR POC Glucose 109 234 H Random Glucose Calcium Vancomycin Trough 10/01/21 10/01/21 10/01/21 12:19 15:35 19:34 WBC RBC Hgb Hct MCV MCH MCHC RDW Plt Count MPV Absolute Nucleated RBC Nucleated RBC % (auto) Sodium Potassium Chloride Carbon Dioxide Anion Gap BUN Creatinine Estim Creat Clear Calc Estimated GFR POC Glucose 116 H 180 H Random Glucose Calcium Vancomycin Trough 12.4 10/02/21 10/02/21 10/02/21 06:09 07:18 11:32 WBC RBC Hgb Hct MCV MCH MCHC RDW Plt Count MPV Absolute Nucleated RBC Nucleated RBC % (auto) Sodium Potassium Chloride Carbon Dioxide Anion Gap BUN Creatinine 0.89 Estim Creat Clear Calc 79.4 Estimated GFR > 60 POC Glucose 134 H 152 H Random Glucose Calcium Vancomycin Trough 10/02/21 12:13 WBC RBC Hgb Hct MCV MCH MCHC RDW Plt Count MPV Absolute Nucleated RBC Nucleated RBC % (auto) Sodium Potassium Chloride Carbon Dioxide Anion Gap BUN Creatinine Estim Creat Clear Calc Estimated GFR POC Glucose Random Glucose Calcium Vancomycin Trough 13.4 Imaging Radiology Impressions: ITS Impressions Venous Duplex 09/21/21 13:48 IMPRESSION: No DVT demonstrated in the left lower extremity. Cervical Spine CT 09/21/21 15:17 IMPRESSION: Mild degenerative changes. No fracture or dislocation seen. Fleischner guidelines were followed. Head CT 09/21/21 15:17 IMPRESSION: No acute intracranial findings. Sinus disease. Foot X-Ray 09/21/21 15:22 IMPRESSION: Bone destruction and soft tissue loss of the distal great toe suggestive of osteomyelitis. Foot X-Ray 09/21/21 15:22 IMPRESSION: Fracture dislocation of the first MTP joint with osteopenia and bone destruction questionable for septic arthritis/osteomyelitis. Destruction of the phalanx and metatarsal head and distal shaft of the second toe suggestive of osteomyelitis. Probable postsurgical amputation of the third toe. New soft tissue foreign body adjacent to the plantar fourth metatarsal head. New fracture of the distal shaft or neck of the fifth metatarsal bone. Hand X-Ray 09/21/21 15:22 IMPRESSION: Question old trauma to the ulnar styloid and soft tissues lateral to the fifth CARE [facility] joint and dorsal wrist and distal forearm. No acute fracture or dislocation. Mild arthritis at the first [facility] joint. Knee X-Ray 09/21/21 15:22 IMPRESSION: Degenerative changes and joint effusion. Question old subchondral injury of the medial femoral condyle. Medications Medications Current Medications Acetaminophen (Acetaminophen 325 Mg Tablet) 650 mg PO Q6H PRN PRN Reason: Pain, Mild (Pain Scale 1-3) Last Admin: 10/02/21 08:44 Dose: 650 mg Documented by: Amlodipine Besylate (Amlodipine Besylate 10 Mg Tablet) 10 mg PO DAILY [facility]; Protocol Last Admin: 10/02/21 08:44 Dose: 10 mg Documented by: Gabapentin (Gabapentin 400 Mg Capsule) 400 mg PO QID [facility] Last Admin: 10/02/21 12:24 Dose: 400 mg Documented by: Heparin Sodium (Porcine) (Heparin Sodium,Porcine 5,000 Unit/Ml Vial) 5,000 unit SUBCUT Q12H [facility] Last Admin: 10/02/21 05:32 Dose: 5,000 unit Documented by: Heparin Sodium (Porcine) (Heparin Sodium,Porcine Flush 50 Units/5 Ml Syringe) 50 units IVFLUSH QSHIFT [facility] Last Admin: 10/02/21 10:02 Dose: Not Given Documented by: Hydromorphone HCl (Hydromorphone Hcl 1 Mg/Ml Syringe) 0.25 mg IVPUSH Q4H PRN; Protocol PRN Reason: pain Last Admin: 10/02/21 10:18 Dose: 0.25 mg Documented by: Vancomycin HCl 1,250 mg/ (Sodium Chloride) 250 mls @ 166.667 mls/hr IV Q24H [facility] Last Infusion: 10/01/21 17:32 Dose: Infused Documented by: Insulin Glargine (Insulin Glargine,Hum.Rec.Anlog 100 Unit/Ml 10 Ml Vial) 35 unit SUBCUT BEDTIME [facility] Last Admin: 10/01/21 20:08 Dose: 35 unit Documented by: Insulin Human Lispro (Insulin Lispro 100 Unit/Ml 3 Ml Vial) 0 unit SUBCUT QIDACHS [facility]; Protocol Last Admin: 10/02/21 12:24 Dose: 2 unit Documented by: Lisinopril (Lisinopril 10 Mg Tablet) 10 mg PO DAILY [facility]; Protocol Last Admin: 10/02/21 08:41 Dose: 10 mg Documented by: Loperamide HCl (Loperamide Hcl 2 Mg Capsule) 2 mg PO Q6H PRN PRN Reason: Diarrhea Nicotine (Nicotine 21 Mg Patch.Td24) 21 mg TRANSDERMA DAILY [facility] Last Admin: 10/02/21 08:40 Dose: 21 mg Documented by: Ondansetron HCl (Ondansetron Hcl 4 Mg/2 Ml Vial) 4 mg IVPUSH Q8H PRN PRN Reason: Nausea and Vomiting Last Admin: 09/25/21 13:22 Dose: 4 mg Documented by: Oxycodone HCl (Oxycodone Hcl Immed Release 5 Mg Tablet) 5 mg PO Q6H PRN PRN Reason: Pain, Moderate (Pain Scale 4-6 Pharmacy Consult (Consult Rx Perform Med Rec) 1 each MISCELLANE ONCE PRN PRN Reason: Consult order Potassium Chloride (Potassium Chloride Er 20 Meq Tab.Er.Prt) 40 meq PO DAILY [facility] Last Admin: 10/02/21 08:45 Dose: 40 meq Documented by: Sodium Chloride (0.9 % Sodium Chloride Flush 3 Ml Syringe) 3 ml IVFLUSH QSHIFT [facility] Last Admin: 10/02/21 08:46 Dose: 3 ml Documented by: Allergies Allergies Allergy/AdvReac Type Severity Reaction Status Date / Time prednisone [PREDNISONE] Allergy Unknown RASH Verified 09/24/21 11:47 Assessment & Plan Assessment & Plan (1) Opioid use disorder: Status: Acute Code(s): F11.90 - Opioid use, unspecified, uncomplicated Assessment and Plan: Discussed methadone dosing titration, as opioid pain medications are being tapered down. Informed patient that [facility] methadone clinic referral has been placed, recovery team will follow up with patient tomorrow. Plan 10/02/21 Addiction service: Add 10mg methadone 1X dose this afternoon, for total daily dose today of 20mg Increase methadone daily dose to 30mg, start tomorrow am. This is a 51 yo F with a PMH of DM, OUD (snorts heroin), anxiety, who presents to the hospital with R foot pain. Her presentation is consistent with sepsis secondary to osteomyelitis. MRSA bacteremia Related to osteomyelitis Initial blood cultures from 09/21 - 08/08 BCx growing MRSA, repeat blood cultures negative PICC line placed 09/28 with plan for 6 weeks of vancomycin from first negative blood cultures (09/24). Alternatively if pt unable to be placed, can be d/c with zyvox & levaquin for same duration Sepsis secondary to osteomyelitis/septic arthritis of the R 1st TMP joint, Osteo the L Great Toe. Resolved Initially treated with IV vanco and zosyn; BCx growing MRSA, seen by ID, zosyn d/c; continue IV vanco s/p Right TMA 09/24 ID following will need terminologist antibiotics for left great toe osteo, see above pain management, wean narcotics HTN bp improving not on meds at baseline continue norvasc 10 mg, lisinopril increased to 10mg 09/30 Hypokalemia/hypomagnesemia resolved Diarrhea. cdif negative prn imodium DM HbA1c 8.6 continue lantus, sliding scale diabetic diet Opiate use disorder See event note from 09/28/21 seen by Addiction medicine started on methadone tobacco dependence smoking cessation advised NRT Mood Continue Xanax pt initially had zoloft ordered based on med rec and supported by fill history, however pt decline during this admission and therefore was d/c DISPO Awaiting rehab facility. Due to substance abuse she is unable to go home with a PICC line. Currently PT rec STR Full Code DVT pptx, subcut. heparin Attending: Dr. Silva I spent minutes with the patient and/or on the patient floor today, greater than?50% of which was spent counseling/coordinating care.
--- NOTE | 2021-10-02 13:24 | HE.PHANOTE ---
Vancomycin Dosing Addendum Continue same vancomycin regimen. Trough 13.4 with AUC 409. If renal fxn improves tomorrow will need to increase dose. Next trough 10/03/21 @1200.
[2021-10-02] MEDS: vancomycin HCL 1,250 MG in 0.9 % Sodium Chloride 250 ML 250 MG IV (15:04)
[2021-10-02 16:10] LABS: Glucose, Whole Blood 152 mg/dL (60-115)
[2021-10-02] MEDS: oxyCODONE HCl Immed Release 5 MG TABLET PO (16:41)
[2021-10-02 19:56] LABS: Glucose, Whole Blood 146 mg/dL (60-115)
[2021-10-02] MEDS: Insulin Glargine,Hum.rec.anlog 100 UNIT/ML 10 ML VIAL 35 UNIT SUBCUT (21:21)
[2021-10-02] MEDS: ALPRAZolam 0.5 MG TABLET 0.25 MG PO (22:00)
[2021-10-03] MEDS: Heparin Sodium,Porcine Flush 50 UNITS/5 ML SYRINGE IVFLUSH ×3 (00:30→15:50)
[2021-10-03] MEDS: oxyCODONE HCl Immed Release 5 MG TABLET PO ×4 (00:35→18:06)
[2021-10-03 03:43] VITALS: BP 151/72; PULSE 66; RESP 14; TEMP 36.4; O2SAT 96
[2021-10-03] MEDS: HYDROmorphone HCl 1 MG/ML SYRINGE 0.25 MG IVPUSH (05:46)
[2021-10-03] MEDS: Heparin Sodium,Porcine 5,000 UNIT/ML VIAL 5000 UNIT SUBCUT ×2 (05:47→18:05)
[2021-10-03 06:00] LABS: Hematocrit 31.7 % (37.0-47.0); Hemoglobin 9.7 g/dl (12.0-16.0); Mean Corpuscular HGB Conc 30.6 g/dl (31.0-35.0); Mean Corpuscular Hemoglobin 26.4 pg (27.0-33.0); Mean Corpuscular Volume 86.1 fL (80.0-98.0); Platelet Count 471 X10*3/uL (160-400); Red Blood Count 3.68 X10*6/uL (4.20-5.50); Red Cell Distribution Width 14.9 % (11.0-16.0); White Blood Count 11.8 X10*3/uL (4.8-10.8)
[2021-10-03 06:16] LABS: Anion Gap 14 (12-20); Blood Urea Nitrogen 21 mg/dL (9-16); Carbon Dioxide 25 mmol/L (22-29); Chloride 104 mmol/L (96-108); Creatinine Clr Calc Pharmacy 73.6; Estimated Glomerular Filt Rate > 60; Glucose Random 216 mg/dL (60-115); Sodium 139 mmol/L (135-145)
[2021-10-03 07:23] VITALS: BP 137/66; PULSE 63; RESP 18; TEMP 36.2; O2SAT 98
[2021-10-03 07:50] LABS: Glucose, Whole Blood 168 mg/dL (60-115)
[2021-10-03] MEDS: Insulin Lispro 100 UNIT/ML 3 ML VIAL SUBCUT ×3 (08:11→20:58)
[2021-10-03] MEDS: lisinopriL 10 MG TABLET PO (08:13)
[2021-10-03] MEDS: Potassium Chloride ER 20 MEQ TAB.ER.PRT 40 MEQ PO (08:13)
[2021-10-03] MEDS: Gabapentin 400 MG CAPSULE PO ×4 (08:13→20:59)
[2021-10-03] MEDS: amLODIPine Besylate 10 MG TABLET PO (08:13)
[2021-10-03] MEDS: Nicotine 21 MG PATCH.TD24 TRANSDERMA (08:14)
[2021-10-03] MEDS: methADONE HCl 20 MG/2 ML ORAL.CONC 30 MG PO (08:15)
--- NOTE | 2021-10-03 08:50 | P.PNIM_ITS ---
Subjective Subjective Date of Service: 10/03/21 <SAULO Dallas - Last Filed: 10/03/21 09:23> 10/17/21 <Sammy Silva DO - Last Filed: 10/17/21 15:43> Interval History: seen and examined this morning no specific complaints mild right foot pain <SAULO Dallas - Last Filed: 10/03/21 09:23> Review of Systems Review of Systems: Yes all other systems are reviewed and are negative <SAULO [place] - Last Filed: 10/03/21 09:23> Constitutional Constitutional: Denies chills and Denies fever(s) <SAULO [place] - Last Filed: 10/03/21 09:23> Cardiovascular Cardiovascular: Denies chest pain, Denies palpitations and Denies dyspnea <SAULO [place] - Last Filed: 10/03/21 09:23> Respiratory Respiratory: Denies cough and Denies dyspnea <SAULO [place] - Last Filed: 10/03/21 09:23> Gastrointestinal Gastrointestinal: Denies abdominal pain, Denies nausea and Denies vomiting <SAULO [place] - Last Filed: 10/03/21 09:23> Endocrine Endocrine: Denies palpitations <SAULO [place] - Last Filed: 10/03/21 09:23> Physical Exam Vital Signs: Vital Signs: Last Vital Signs Temp 97.2 F 10/03/21 07:23 Pulse 63 10/03/21 07:23 Resp 18 10/03/21 07:23 BP 137/66 10/03/21 07:23 Pulse Ox 98 10/03/21 07:23 BMI result Body Mass Index 26.2 <SAULO Dallas - Last Filed: 10/03/21 09:23> Const: General: cooperative, comfortable, no acute distress, alert, awake and anxious <SAULO Dallas Last Filed: 10/03/21 09:23> Nutritional Appearance: average body habitus and overweight <SAULO [place] - Last Filed: 10/03/21 09:23> Orientation/consciousness: patient oriented x3 <SAULO [place] - Last Filed: 10/03/21 09:23> Resp: Effort & Inspection: normal respiratory effort and able to speak in complete sentences <SAULO Dallas Last Filed: 10/03/21 09:23> Cardio: Rate: regular rate <SAULO [place] Last Filed: 10/03/21 09:23> Heart sounds: S1 normal heart sound present and S2 normal heart sound present <SAULO Dallas Last Filed: 10/03/21 09:23> GI: Inspection: No distended <SAULO Dallas Last Filed: 10/03/21 09:23> Palpation (GI): Soft to palpation and nontender <SAULO Dallas - Last Filed: 10/03/21 09:23> Neuro: General: patient oriented x3 <SAULO Dallas Last Filed: 10/03/21 09:23> Extrem: Other: left great toe dry ulcer no drainage no eythema; right foot c/d/i dressing <SAULO Dallas Last Filed: 10/03/21 09:23> Objective Data Active Medications Acetaminophen (Acetaminophen 325 Mg Tablet) 650 mg PO Q6H PRN PRN Reason: Pain, Mild (Pain Scale 1-3) Last Admin: 10/02/21 08:44 Dose: 650 mg Documented by: JOSE Alprazolam (Alprazolam 0.5 Mg Tablet) 1 mg PO DAILY PRN PRN Reason: Anxiety Alprazolam (Alprazolam 0.5 Mg Tablet) 2 mg PO BID [facility] Amlodipine Besylate (Amlodipine Besylate 10 Mg Tablet) 10 mg PO DAILY [facility]; Protocol Last Admin: 10/03/21 08:13 Dose: 10 mg Documented by: ERICA Gabapentin (Gabapentin 400 Mg Capsule) 400 mg PO QID [facility] Last Admin: 10/03/21 08:13 Dose: 400 mg Documented by: ERICA Heparin Sodium (Porcine) (Heparin Sodium,Porcine 5,000 Unit/Ml Vial) 5,000 unit SUBCUT Q12H [facility] Last Admin: 10/03/21 05:47 Dose: 5,000 unit Documented by: JOAN Heparin Sodium (Porcine) (Heparin Sodium,Porcine Flush 50 Units/5 Ml Syringe) 50 units IVFLUSH QSHIFT [facility] Last Admin: 10/03/21 08:14 Dose: 50 units Documented by: ERICA Vancomycin HCl 1,250 mg/ (Sodium Chloride) 250 mls @ 166.667 mls/hr IV Q24H [facility] Last Infusion: 10/02/21 16:58 Dose: 0 mls/hr Documented by: CARLO Insulin Glargine (Insulin Glargine,Hum.Rec.Anlog 100 Unit/Ml 10 Ml Vial) 35 unit SUBCUT BEDTIME [facility] Last Admin: 10/02/21 21:21 Dose: 35 unit Documented by: CARLO Insulin Human Lispro (Insulin Lispro 100 Unit/Ml 3 Ml Vial) 0 unit SUBCUT QIDACHS [facility]; Protocol Last Admin: 10/03/21 08:11 Dose: 2 unit Documented by: ERICA Lisinopril (Lisinopril 10 Mg Tablet) 10 mg PO DAILY [facility]; Protocol Last Admin: 10/03/21 08:13 Dose: 10 mg Documented by: ERICA Loperamide HCl (Loperamide Hcl 2 Mg Capsule) 2 mg PO Q6H PRN PRN Reason: Diarrhea Methadone HCl (Methadone Hcl 20 Mg/2 Ml Oral.Conc) 30 mg PO DAILY [facility] Last Admin: 10/03/21 08:15 Dose: 30 mg Documented by: ERICA Nicotine (Nicotine 21 Mg Patch.Td24) 21 mg TRANSDERMA DAILY [facility] Last Admin: 10/03/21 08:14 Dose: 21 mg Documented by: ERICA Ondansetron HCl (Ondansetron Hcl 4 Mg/2 Ml Vial) 4 mg IVPUSH Q8H PRN PRN Reason: Nausea and Vomiting Last Admin: 09/25/21 13:22 Dose: 4 mg Documented by: BLAKE Oxycodone HCl (Oxycodone Hcl Immed Release 5 Mg Tablet) 5 mg PO Q4H PRN PRN Reason: Pain, Moderate (Pain Scale 4-6 Pharmacy Consult (Consult Rx Perform Med Rec) 1 each MISCELLANE ONCE PRN PRN Reason: Consult order Potassium Chloride (Potassium Chloride Er 20 Meq Tab.Er.Prt) 40 meq PO DAILY [facility] Last Admin: 10/03/21 08:13 Dose: 40 meq Documented by: ERICA Sodium Chloride (0.9 % Sodium Chloride Flush 3 Ml Syringe) 3 ml IVFLUSH QSHIFT [facility] Last Admin: 10/03/21 00:30 Dose: Not Given Documented by: JOAN Non-Admin Reason: picc line only <SAULO Dallas - Last Filed: 10/03/21 09:23> Labs CBC & Chem 7: : 10/03/21 05:37 10/04/21 04:16 <SAULO Dallas - Last Filed: 10/03/21 09:23> Labs: Laboratory Results - last 24 hr 10/02/21 10/02/21 10/02/21 11:32 12:13 15:59 MCV MCH MCHC RDW Plt Count MPV Absolute Nucleated RBC Nucleated RBC % (auto) Anion Gap Estim Creat Clear Calc Estimated GFR POC Glucose 152 H 152 H Random Glucose Calcium Vancomycin Trough 13.4 10/02/21 10/03/21 10/03/21 19:52 05:37 05:37 MCV 86.1 MCH 26.4 L MCHC 30.6 L RDW 14.9 Plt Count 471 H D MPV 10.0 Absolute Nucleated RBC 0.000 Nucleated RBC % (auto) 0.0 Anion Gap 14 Estim Creat Clear Calc 73.6 Estimated GFR > 60 POC Glucose 146 H Random Glucose 216 H Calcium 9.0 Vancomycin Trough 10/03/21 07:37 MCV MCH MCHC RDW Plt Count MPV Absolute Nucleated RBC Nucleated RBC % (auto) Anion Gap Estim Creat Clear Calc Estimated GFR POC Glucose 168 H Random Glucose Calcium Vancomycin Trough <SAULO [place] - Last Filed: 10/03/21 09:23> Assessment and Plan (1) Status post transmetatarsal amputation of right foot: (2) MRSA bacteremia: Status: Acute <SAULO [place] Last Filed: 10/03/21 09:23> (3) Opioid use disorder: Status: Acute <SAULO [place] Last Filed: 10/03/21 09:23> Plan This is a 51 yo F with a PMH of DM, OUD (snorts heroin), anxiety, who presents to the hospital with R foot pain. Her presentation is consistent with sepsis secondary to osteomyelitis. MRSA bacteremia Related to osteomyelitis Initial blood cultures from 09/21 - 08/08 BCx growing MRSA, repeat blood cultures negative PICC line placed 09/28 with plan for 6 weeks of vancomycin from first negative blood cultures (09/24). Alternatively if pt unable to be placed, can be d/c with zyvox & levaquin for same duration Sepsis secondary to osteomyelitis/septic arthritis of the R 1st TMP joint, Osteo the L Great Toe. Resolved Initially treated with IV vanco and zosyn; BCx growing MRSA, seen by ID, delphinen d/c; continue IV vanco s/p Right TMA 09/24 ID following will need intermediate manager antibiotics for left great toe osteo, see above pain management. this was discussed with patient in detail. IV narcotics have been d/c. Her dose of methadone has been increased and will start weaning oxycodone continue local wound care: dry dressings to right foot stump and wrapped in kerlix; alginate dressings to left great toe needs outpatient follow up with surgery in 2-3 weeks for removal of sutures HTN bp improving not on meds at baseline continue norvasc 10 mg, lisinopril increased to 10mg 09/30 Hypokalemia/hypomagnesemia resolved Diarrhea. cdif negative prn imodium DM HbA1c 8.6 continue lantus, sliding scale diabetic diet Opiate use disorder See event note from 09/28/21 seen by Addiction medicine started on methadone tobacco dependence smoking cessation advised NRT Mood Continue Xanax pt initially had zoloft ordered based on med rec and supported by fill history, however pt decline during this admission and therefore was d/c DISPO Awaiting rehab facility. Due to substance abuse she is unable to go home with a PICC line. Currently PT rec STR Full Code DVT pptx, subcut. heparin Attending: Dr. Silva <SAULO Dallas - Last Filed: 10/03/21 09:23> This is a 51 yo F with a PMH of DM, OUD (snorts heroin), anxiety, who presents to the hospital with R foot pain. Her presentation is consistent with sepsis secondary to osteomyelitis. MRSA bacteremia Related to osteomyelitis Initial blood cultures from 09/21 - 08/08 BCx growing MRSA, repeat blood cultures negative PICC line placed 09/28 with plan for 6 weeks of vancomycin from first negative blood cultures (09/24). Alternatively if pt unable to be placed, can be d/c with zyvox & levaquin for same duration Sepsis secondary to osteomyelitis/septic arthritis of the R 1st TMP joint, Osteo the L Great Toe. Resolved Initially treated with IV vanco and zosyn; BCx growing MRSA, seen by ID, lyly d/c; continue IV vanco s/p Right TMA 09/24 ID following will need fdc antibiotics for left great toe osteo, see above pain management. this was discussed with patient in detail. IV narcotics have been d/c. Her dose of methadone has been increased and will start weaning oxycodone continue local wound care: dry dressings to right foot stump and wrapped in kerlix; alginate dressings to left great toe needs outpatient follow up with surgery in 2-3 weeks for removal of sutures HTN bp improving not on meds at baseline continue norvasc 10 mg, lisinopril increased to 10mg 09/30 Hypokalemia/hypomagnesemia resolved Diarrhea. cdif negative prn imodium DM HbA1c 8.6 continue lantus, sliding scale diabetic diet Opiate use disorder See event note from 09/28/21 seen by Addiction medicine started on methadone tobacco dependence smoking cessation advised NRT Mood Continue Xanax pt initially had zoloft ordered based on med rec and supported by fill history, however pt decline during this admission and therefore was d/c DISPO Awaiting rehab facility. Due to substance abuse she is unable to go home with a PICC line. Currently PT rec STR Full Code DVT pptx, subcut. heparin Attending: Dr. Silva Patient examined chart reviewed. Agree with history and physical as well as assessment and plan as outlined by Ms. Burt <Sammy Silva, - Last Filed: 10/17/21 15:43> Quality Stroke Does the patient have a stroke diagnosis?: No <SAULO [place] - Last Filed: 10/03/21 09:23> VTE Prior VTE?: No <SAULO [place] - Last Filed: 10/03/21 09:23> VTE Risk Level:: Medical - moderate - high <SAULO [place] Last Filed: 10/03/21 09:23> VTE Device Contraindication: Treatment Not Indicated <SAULO [place] Last Filed: 10/03/21 09:23> VTE Drug Contraindication: N/A - Med Ordered <SAULO [place] - Last Filed: 10/03/21 09:23>
[2021-10-03] MEDS: ALPRAZolam 0.5 MG TABLET 2 MG PO ×2 (09:17→21:00)
[2021-10-03] MEDS: 0.9 % Sodium Chloride Flush 3 ML SYRINGE IVFLUSH ×2 (09:20→15:50)
[2021-10-03 11:15] VITALS: BP 115/59; PULSE 62; RESP 20; TEMP 36.2; O2SAT 97
[2021-10-03 11:46] LABS: Glucose, Whole Blood 220 mg/dL (60-115)
[2021-10-03 12:33] LABS: Vancomycin Trough 14.4 mcg/mL (10.0-20.0)
--- NOTE | 2021-10-03 12:40 | HE.PHANOTE ---
Vancomycin Dosing Addendum Cr 0.96 today, trough 14.4. Continue same vancomycin regimen. next trough 10/05/21 @1200
[2021-10-03] MEDS: Loperamide HCl 2 MG CAPSULE PO (13:43)
[2021-10-03] MEDS: vancomycin HCL 1,250 MG in 0.9 % Sodium Chloride 250 ML 166.66 MG IV (13:44)
--- NOTE | 2021-10-03 14:39 | MHC.RECOVSUP ---
Recovery Support note: This functional tester typewriters met with patient to discuss methadone dosing and withdrawal symptoms. Patient is in good spirits and reports the methadone has been very helpful. Patient reports no withdrawal symptoms or cravings. Patient reports she had only used cocaine 4 times over a twenty year period however relapsed and started using heroin about a year ago after her . Discussed family and recovery supports with patient. Patient states her family is very supportive and that her son-in-law will be transporting her to the methadone clinic until she can arrange transportation through her insurance. 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 Discussed IOP with patient and she is interested in pursuing this after discharge. Discussed case with Tete CLEMENTS.
[2021-10-03 15:28] VITALS: BP 141/65; PULSE 66; RESP 18; TEMP 37.2; O2SAT 99
[2021-10-03 15:44] LABS: Glucose, Whole Blood 132 mg/dL (60-115)
[2021-10-03 20:00] VITALS: BP 129/69; PULSE 77; RESP 18; TEMP 37.4; O2SAT 98
[2021-10-03 20:44] LABS: Glucose, Whole Blood 177 mg/dL (60-115)
[2021-10-03] MEDS: Insulin Glargine,Hum.rec.anlog 100 UNIT/ML 10 ML VIAL 35 UNIT SUBCUT (20:59)
[2021-10-03 23:53] VITALS: BP 132/70; PULSE 67; RESP 18; TEMP 36.6; O2SAT 98
[2021-10-04] MEDS: oxyCODONE HCl Immed Release 5 MG TABLET PO ×3 (01:04→11:17)
[2021-10-04] MEDS: Heparin Sodium,Porcine Flush 50 UNITS/5 ML SYRINGE IVFLUSH ×2 (01:04→08:55)
[2021-10-04] MEDS: 0.9 % Sodium Chloride Flush 3 ML SYRINGE IVFLUSH ×2 (01:05→08:57)
[2021-10-04 04:00] VITALS: BP 135/67; PULSE 66; RESP 15; TEMP 36.3; O2SAT 98
[2021-10-04 05:17] LABS: Creatinine Clr Calc Pharmacy 70.6; Estimated Glomerular Filt Rate 58
[2021-10-04] MEDS: Heparin Sodium,Porcine 5,000 UNIT/ML VIAL 5000 UNIT SUBCUT (06:12)
[2021-10-04 08:00] VITALS: BP 157/74; PULSE 65; RESP 18; TEMP 36.8; O2SAT 100
[2021-10-04 08:08] LABS: Glucose, Whole Blood 139 mg/dL (60-115)
--- NOTE | 2021-10-04 08:33 | MHC.CM.PN ---
CM attempted to call Sony Burdick at 8:33am [phone], cm spoke briefly with Paige in who requested CM call her back d/t being in a meeting, CM also received message from pt that she want's to go home today and not to rehab. CM received call back from Jacinto Stewart about DME and he reported he actually only delivers DME to [facility] not [facility]. SHANIQUE contacted [facility] and spoke w/lead nurse Lianna and she has a front wheeled walker, w/c and bedside commode that pt can borrow and they will put items aside w/[facility] label for pt's family to fish bait picker.
--- NOTE | 2021-10-04 08:39 | HE.PHANOTE ---
VANCOMYCIN ADDENDUM PREDICTED AUC 453, NO CHANGE TO CURRENT DOSE
[2021-10-04] MEDS: ALPRAZolam 0.5 MG TABLET 2 MG PO (08:44)
[2021-10-04] MEDS: Gabapentin 400 MG CAPSULE PO (08:45)
[2021-10-04] MEDS: Potassium Chloride ER 20 MEQ TAB.ER.PRT 40 MEQ PO (08:45)
[2021-10-04] MEDS: lisinopriL 10 MG TABLET PO (08:46)
[2021-10-04] MEDS: Nicotine 21 MG PATCH.TD24 TRANSDERMA (08:46)
[2021-10-04] MEDS: amLODIPine Besylate 10 MG TABLET PO (08:47)
[2021-10-04] MEDS: methADONE HCl 20 MG/2 ML ORAL.CONC 30 MG PO (08:47)
--- NOTE | 2021-10-04 09:39 | MHC.CM.PN ---
CM RECEIVED MESSAGE FROM [facility] THAT THEY ARE STILL AT [facility] AND CANNOT ACCEPT PT D/T HER NEEDING WOUNDCARE AND THEY WOULD BE AUNABLE TO DO SOC UNTIL Monday10/08/21, CM HAS RESENT OUT REFERRAL, [facility]ERELLE IS CHECKING AVAILABILITY.
[2021-10-04 10:48] VITALS: BP 118/68; PULSE 85; RESP 18; TEMP 37.1; O2SAT 97
[2021-10-04 10:58] LABS: Glucose, Whole Blood 219 mg/dL (60-115)
--- NOTE | 2021-10-04 11:27 | MHC.CM.PN ---
PT DISCHARGING HOME W/ALLIED HEALTH FOR SN AND HOME PT AND ANTIC INTAKE APPT FOR METHADONE AT [facility], PT WILL NEED PICC LINE REMOVED PRIOR TO D/C AND SON-IN-LAW WAYNE WILL PROVIDE TRANSPORTATION, SHANIQUE PREVIOUSLY SPOKE W/WAYNE AT [facility] 10AM AND HE WILL ALLERGY AND IMMUNOLOGY SPECIALIST A FRONT WHEELED WALKER, BEDSIDE COMMODE AND W/C FOR PT.
--- NOTE | 2021-10-04 11:33 | PM.DS ---
DS: Providers Provider Date of Service: 10/04/21 Date of admission: 09/21/21 17:01 Primary care physician: Nikhil Potts MD Consults: 09/21/21 17:57 Consult to General Surgery Routine Consulting Provider: Kirill Muhammad Reason for consultation: New soft tissue foreign body adjacent to the plantar fourth metatarsal head 09/21/21 18:05 Addiction Medicine Routine Consulting Provider: Bev Salazar Reason for consultation: heroine abuse Has provider been notified: No 09/22/21 11:13 Consult to Infectious Diseases Routine Consulting Provider: Delicia Syed Reason for consultation: bilateral LE osteo; R foot septic joint; DM Attending physician on discharge: Oscar Liz Discharging clinician: Jocelyn Medley DS: Diagnosis Discharge Diagnosis (1) Status post transmetatarsal amputation of right foot: Status: Acute (2) MRSA bacteremia: Status: Acute (3) Opioid use disorder: Status: Acute DS: Summary Hospital Course Hospital Course: 51 year old women presenting with pain and falls to lower extremities. She reported that around 2 weeks ago she started having falls and she would be on the floor for an extended period of time. She reported that she hasnt seen her PCP in person in some time but she is able to reach them over the phone, same as her psychiatrist. She does live with her son and a handicap roomate but doesnt have help at home. She uses a few bags of heroine a week and snorts it.? She denied fever, chills, nausea, vomiting, chest pain, sob, LOC. She is noted to be septic from osteomyelitis to both feet. Vancomycin, Zosyn, Morphine, IV fluids and ativan. She will be admitted for further management and treatment of osteomyelitis. MRSA bacteremia. Related to osteomyelitis. Initial blood cultures from 09/21 - 08/08 BCx growing MRSA, repeat blood cultures negative. Initially treated with IV vanco and zosyn; BCx growing MRSA. s/p Right TMA 09/24. Still with osteomyelitis of left great toe. PICC line placed 09/28 with plan for 6 weeks of vancomycin from first negative blood cultures (09/24). However, placement has been difficult to find due to Unfortunate incident of drugs PN brought in to the hospital for her. After discussion with the infectious disease provider the option of Zyvox and Levaquin for 6 weeks was added. Patient was seen by Physical therapy who recommended rehab placement however patient this time is not declining and she does seem to have help at home between her son-in-law and children. She will have a new walker, wheelchair and commode. Wound care at home with dry dressings to right foot stump and wrapped in kerlix; alginate dressings to left great toe. Needs outpatient follow up with surgery in 2-3 weeks for removal of sutures. HTN. BP improving, not on meds at baseline norvasc 10 mg and lisinopril 10mg added Opiate use disorder. Seen by Addiction medicine. Started on methadone 09/30/21, last dose 10/04/21 Time Spent with Patient Time attestation: Total time spent providing and/or coordinating discharge services: Discharge coordination time: Greater than 30 minutes Quality: Stroke Does the patient have a stroke diagnosis?: No Physical Exam Vital Signs: Vital Signs: Last Vital Signs Temp 98.8 F 10/04/21 10:48 Pulse 85 10/04/21 10:48 Resp 18 10/04/21 10:48 BP 118/68 10/04/21 10:48 Pulse Ox 97 10/04/21 10:48 BMI result Body Mass Index 26.2 Appearing in no acute distress head is normocephalic atraumatic eyes pupils are PERRLA sclera is anicteric mouth throat mucous membranes are intact and moist neck is supple no lymphadenopathy, no JVD noted lung sounds are clear to auscultation heart regular rate rhythm, clear S1, S2 positive bowel sounds, abdomen is soft, nontender neuro patient is alert x3, no focal deficits Right stump kerlix dressing intact. DS: Data Data Completed and Pending Completed studies during hospitalization [Text1]: Pending at discharge 09/24/21 12:46 Surgical [PTH] Routine Labs on day of discharge: Laboratory Results - last 24 hr 10/03/21 10/03/21 10/03/21 11:20 12:05 15:20 Creatinine Estim Creat Clear Calc Estimated GFR POC Glucose 220 H 132 H Vancomycin Trough 14.4 10/03/21 10/04/21 10/04/21 19:56 04:16 08:00 Creatinine 1.00 Estim Creat Clear Calc 70.6 Estimated GFR 58 POC Glucose 177 H 139 H Vancomycin Trough 10/04/21 10:53 Creatinine Estim Creat Clear Calc Estimated GFR POC Glucose 219 H Vancomycin Trough Discharge Plan Discharge Anticipated Discharge Date/Time: 10/04/21 13:00 Patient Disposition: Home Health Service Discharge Diagnosis: Osteomyelitis MRSA bacteremia Transmetatarsal amputation, right foot Substance abuse Referrals: [facility] [Other] - 1 Day (METHADONE INTAKE THURSDAY 10/05 BETWEEN 5:45AM-12PM.) [facility] [Other] - 1 Week (IF YOU WOULD LIKE TO HAVE SOMEONE FROM [facility] COME TO THE HOUSE TO ADMINISTER YOUR 2ND PFIZER VACCINE, PLEASE CALL [phone] TO SET IT UP. ) [facility] [Outside] - 1 Day ([facility] FOR WOUND CARE AND HOME PHYSICAL THERAPY, START OF CARE WILL BE THURSDAY 10/05, PLEASE CALL [phone] IF YOU DO NOT HEAR FROM A NURSE BY NOON TOMORROW 10/05.) Nikhil Gagnon MD [Primary Care Provider] - 1 Week () Delicia Syed MD [Physician] - 1 Week Kirill Muhammad MD [Physician] - 1 Week Discharge Medications: New amlodipine 10 mg Tablet 10 mg PO DAILY Qty: 30 0RF Protocol: Hold for SBP< HOLD for SBP < : 90 lisinopril 5 mg Tablet 5 mg PO DAILY Qty: 30 0RF Protocol: Hold for SBP< HOLD for SBP < : 90 linezolid [Zyvox] 600 mg tablet 600 mg PO Q12H 42 Days Qty: 84 0RF levofloxacin 500 mg tablet 500 mg PO Q24H 42 Days Qty: 42 0RF (DME) [facility] [place] See Rx Instructions .Route Qty: 1 0RF Rx Instructions: As directed oxycodone 5 mg tablet 5 mg PO Q6H PRN (Reason: pain) Qty: 12 0RF Continued ibuprofen 800 mg tablet 1 tab PO TID 0RF gabapentin 400 mg capsule 400 mg PO QID 0RF sertraline 100 mg tablet 1 tab PO BID 0RF alprazolam 2 mg tablet 2 mg PO BID 0RF alprazolam 2 mg tablet 1 mg PO DAILY PRN (Reason: Anxiety) 0RF Lantus Solostar U-100 Insulin 100 unit/mL (3 mL) insulin pen 35 unit subcut BEDTIME 0RF Discharge Orders: Discharge Order (Routine); Ordered 10/04/21 Ordered By: Jocelyn Medley Diet: advance to usual diet Activity on Discharge: As tolerated Stand Alone Forms: Patient Portal Discharge page Activity Restrictions/Additional Instructions: Wound care instructions:Cleanse right amp incision and left toe diabetic with normal saline then apply Xeroform to incision site on amp cover with gauze and roll gauze. Apply silver alginate to left great toe cover with gauze and roll gauze. Apply barrier cream to bilateral inner thigh redness. Care Plan Goals: Stop using heroin Physical therapy to gain strength Health Concerns: Osteomyelitis MRSA bacteremia Transmetatarsal amputation, right foot Substance abuse Plan of Treatment: Seek treatment for substance abuse Take all medications as prescribed Follow-up with Infectious Disease Dr. Felicita Syed Follow up with Dr. Muhammad general surgeon Non weight bearing to right foot for one month LAST DOSE OF METHADONE ON 10/04/21 AT 0900 Assessment: see discharge summary
[2021-10-04] MEDS: Insulin Lispro 100 UNIT/ML 3 ML VIAL SUBCUT (11:38)
--- NOTE | 2021-10-04 12:22 | PC.NURSE ---
FULLY INTACT 4-DUTCH, SINGLE LUMEN, 40 CM, FUNCTIONAL RUE PICC REMOVED PER REQUEST. NO NOTED BLEEDING/BRUISING/SWELLING. PT DENIES RUE COMPLAINTS R/T PICC. GAUZE/TEGADERM DRESSING APPLIED.
--- NOTE | 2021-10-04 12:24 | MHC.RECOVRN ---
T/w spoke with Bettie at [facility] in [place], pt has been accepted to [facility] and may present between 5:45AM-12PM tomorrow, 10/05/21. CM aware.
== END 2021-10-04 14:40 | disposition home health service (06) | DRG 710 ==
LOC: HO.ED 16:04 → HO.EDOVER 17:29 → HO.S3 09-22 14:20
PROVIDERS: Family Medicine; Physician Assistant Medical; Surgery; Admitting Provider Nurse Practitioner Acute Care; Emergency Provider Emergency Medicine; PCP Internal Medicine; Visit Provider Nurse Practitioner Acute Care
PROC: 0Y6P0Z2 Detachment at Right 1st Toe, Mid, Open Approach (ICD-10-PCS; CPT 28805; principal; 2021-09-24 11:50)
DX: A41.9 Sepsis, unspecified organism (principal); M00.9 Pyogenic arthritis, unspecified; E11.621 Type 2 diabetes mellitus with foot ulcer; M86.171 Other acute osteomyelitis, right ankle and foot; D72.829 Elevated white blood cell count, unspecified; E11.69 Type 2 diabetes mellitus with other specified complication; F17.210 Nicotine dependence, cigarettes, uncomplicated; B95.62 Methicillin resistant Staphylococcus aureus infection as the cause of diseases classified elsewhere; E83.42 Hypomagnesemia; E87.6 Hypokalemia; M86.172 Other acute osteomyelitis, left ankle and foot; R19.7 Diarrhea, unspecified; F41.9 Anxiety disorder, unspecified; F11.20 Opioid dependence, uncomplicated; I10 Essential (primary) hypertension; L98.499 Non-pressure chronic ulcer of skin of other sites with unspecified severity; R29.6 Repeated falls; Z91.81 History of falling; Z20.822 Contact with and (suspected) exposure to COVID-19; Z71.6 Tobacco abuse counseling; Z79.1 Long term (current) use of non-steroidal anti-inflammatories (NSAID); Z79.4 Long term (current) use of insulin; Z79.899 Other long term (current) drug therapy
CPT/HCPCS: 36415; 36573; 70450; 72125; 73130; 73564; 73620; 80048; 80076; 80202; 80307; 81001; 81003; 82550; 82565; 82947; 83036; 83605; 83735; 84132; 85025; 85027; 85610; 85652; 86140; 87040; 87045; 87046; 87077; 87147; 87186; 87205; 87493; 87635; 88305; 88311; 89055; 93005; 93971; 96361; 96365; 96367; 96375; 96376; 97110; 97163; 97530; 99024; 99285; C1751; J0690; J1170; J1642; J2060; J2270; J2405; J2543; J2765; J3010; J3370; J3475

== ENCOUNTER 2021-10-11 11:40 | Inpatient (IN) | payer MEDICAID, SELFPAY ==
[2021-10-11] VITALS (11 sets, daily range): BP systolic 104–120; BP diastolic 67–78; PULSE 78–120; RESP 16–30; TEMP 36.3–37.6; O2SAT 94–100; BMI 27.1; BMI 28.6; BMI 28.5
--- NOTE | 2021-10-11 | ECG_ITS ---
Test Reason : abnormal labs Blood Pressure : / mmHG Vent. Rate : 099 BPM Atrial Rate : 099 BPM P-R Int : 138 ms QRS Dur : 086 ms QT Int : 334 ms P-R-T Axes : 050 106 064 degrees QTc Int : 428 ms Poor data quality Normal sinus rhythm Rightward axis Nonspecific ST abnormality Abnormal ECG When compared with ECG of 11-OCT-2021 11:47, Criteria for Septal infarct are no longer Present Referred By: Jocelyn Medley Electronically Signed By:MADHAV DELEON MD
--- NOTE | ~2021-10-11 | XR_ITS ---
EXAMINATION: XR CHEST CLINICAL INFORMATION: Rule out aspiration COMPARISON: None TECHNIQUE: Frontal view of the chest was obtained. FINDINGS: Hiatal hernia. Otherwise the cardiomediastinal silhouette is unremarkable. No vascular congestion or pulmonary edema. No consolidation or effusion. No pneumothorax. XR/XR chest 1V IMPRESSION: No radiographic evidence of aspiration.
--- NOTE | ~2021-10-11 | XR_ITS ---
EXAMINATION: XR FOOT, LEFT CLINICAL INFORMATION: Osteomyelitis COMPARISON: Left foot radiographs 09/21/2021 TECHNIQUE: AP, lateral, and oblique views of the left foot. FINDINGS: Again noted is osseous destruction and loss of overlying soft tissue distal great toe. Similar appearances were present on 09/21/2021 study. Again noted is generalized osteopenia. Hallux valgus and degenerative changes again noted at the first MTP joint. Other areas of mild scattered degenerative change seen. XR/XR foot LT 2V IMPRESSION: Unchanged bone destruction and soft tissue loss distal great toe
--- NOTE | ~2021-10-11 | NM_ITS ---
EXAMINATION: PULMONARY PERFUSION STUDY CLINICAL INFORMATION: Elevated troponins with echo evidence of PE. Images of this prior study are not available for comparison. COMPARISON: Chest radiograph dated from 10/11/2021. TECHNIQUE: The patient received 3 mCi Tc-99m MAA intravenously and a 6-view perfusion study was performed. NM/NM pul perfusion FINDINGS/IMPRESSION: Multifocal pulmonary emboli involving both lungs, largest in the apical segment of the left lung and basal segments of the right lung. This critical result was discussed with Dr. Garcia at 10/12/2021 7:52 PM and it was ascertained that the content and urgency of the report was understood at the time of direct communication.
--- NOTE | ~2021-10-11 | US_ITS ---
EXAMINATION: US VENOUS ULTRASOUND WITH DOPPLER LOWER EXTREMITY, BILATERAL CLINICAL INFORMATION: Pulmonary embolism. Evaluate for DVT. COMPARISON: 09/21/2021 TECHNIQUE: Ultrasound of the deep veins is performed from the hip to the calf with compression sonography and color and pulse Doppler assessment. Spectral analysis with color-flow imaging is performed. FINDINGS: RIGHT: There is noncompressible thrombus involving the superficial femoral vein, through the popliteal vein and into the posterior tibial vein. The peroneal vein is not well seen in the calf. The common femoral vein appears normal. There is no significant popliteal fossa cyst. LEFT: There is normal venous compression and respiratory variation and augmented flow. The visualized common femoral vein, superficial femoral vein, profunda femoral vein, popliteal vein, and the trifurcation region shows no evidence of deep venous thrombosis. There is no significant popliteal fossa cyst. US/US venous duplex LE BI IMPRESSION: Extensive deep venous thrombosis of the right lower extremity. This involves the posterior tibial vein with extension through the popliteal vein and through the majority of the superficial femoral vein. No left lower extremity DVT. This critical result was discussed with SAULO [place] by telephone at 10/14/2021 10:44 AM and it was ascertained that the content and urgency of the report was understood at the time of direct communication.
--- NOTE | ~2021-10-11 | US_ITS ---
EXAMINATION: US VENOUS WITH DOPPLER UPPER EXTREMITY, BILATERAL CLINICAL INFORMATION: Pain. Known PE. COMPARISON: No similar priors. TECHNIQUE: Ultrasound of the upper extremity is performed using compression sonography and color and pulse Doppler flow with assessment of augmentation of flow. There is also imaging and Doppler assessment of the jugular and subclavian veins. Spectral analysis with color-flow imaging is performed. FINDINGS: Respiratory variation, normal compression, and augmented flow are noted throughout the upper extremity including the axillary, brachial, cubital, and radial and ulnar veins. There is normal flow in the internal jugular and subclavian veins. There is no visible deep or superficial thrombophlebitis. If the patient's symptoms progress, a followup ultrasound in 5 -7 days might be of value to exclude proximal propagation from a nonvisualized distal arm vein. US/US venous duplex UE BI IMPRESSION: No DVT demonstrated in the bilateral upper extremities
--- NOTE | 2021-10-11 11:49 | ECG_ITS ---
Test Reason : UNRESPONISIVE Blood Pressure : / mmHG Vent. Rate : 120 BPM Atrial Rate : 120 BPM P-R Int : 130 ms QRS Dur : 126 ms QT Int : 320 ms P-R-T Axes : 072 103 -03 degrees QTc Int : 452 ms Sinus tachycardia Possible Left atrial enlargement Right bundle branch block Septal infarct , age undetermined Abnormal ECG When compared with ECG of 30-SEP-2021 08:47, Vent. rate has increased BY 42 BPM Right bundle branch block is now Present Septal infarct is now Present Referred By: Kristin Verdugo Electronically Signed By:MADHAV DELEON MD
--- NOTE | 2021-10-11 11:56 | ED_ITS ---
HPI - General Adult General Chief complaint: ETOH/Substance Use Stated complaint: TOXIC INGESTION OF MULTI DRUGS PER EMS Time Seen by Provider: 10/11/21 11:48 Source: patient and EMS Mode of arrival: EMS Limitations: altered mental status History of Present Illness HPI narrative: Patient comes to the emergency room by EMS. This morning, patient was found unresponsive and gasping for air by her family. Patient was given 4 mg of Narcan intranasal twice by EMS. Patient somnolent, awake, answers questions. Patient denies suicidal ideation. Patient admits that she used unknown dose of Xanax, methadone, and heroin. When EMS arrived, patient's oxygen saturation was initially 83%. On 6 L, oxygen saturation improved to the mid 90s. Of note, patient was discharged 1 week from this hospital. Patient was here for sepsis secondary to osteomyelitis. On September 24, patient had a right foot transmetatarsal amputation At this time, patient is answering questions, patient states she took 2.5 mg of Xanax which is controlled by her son, took her daily dose of methadone, denies using heroin. However, patient is known to be heroin user. For security, during her last admission, patient had 40+ bundles of heroin in her clothes Related Data Home Medications Medication Instructions Recorded Confirmed alprazolam 2 mg tablet 1 mg PO DAILY PRN 09/21/21 09/21/21 alprazolam 2 mg tablet 2 mg PO BID 09/21/21 09/21/21 gabapentin 400 mg capsule 400 mg PO QID 09/21/21 09/21/21 ibuprofen 800 mg tablet 1 tab PO TID 09/21/21 09/21/21 insulin glargine 100 unit/mL (3 35 unit SUBCUT BEDTIME 09/21/21 09/21/21 mL) subcutaneous pen (Lantus Solostar U-100 Insulin) sertraline 100 mg tablet 1 tab PO BID 09/21/21 09/21/21 Previous Rx's Medication Instructions Recorded amlodipine 10 mg tablet 10 mg PO DAILY #30 tab 09/29/21 lisinopril 5 mg tablet 5 mg PO DAILY #30 tab 09/29/21 levofloxacin 500 mg tablet 500 mg PO Q24H 42 Days #42 tab 10/04/21 linezolid 600 mg tablet (Zyvox) 600 mg PO Q12H 42 Days #84 tab 10/04/21 oxycodone 5 mg tablet 5 mg PO Q6H PRN #12 tab 10/04/21 walker #1 ea 10/04/21 Allergies Allergy/AdvReac Type Severity Reaction Status Date / Time prednisone [PREDNISONE] Allergy Unknown RASH Verified 09/24/21 11:47 Review of Systems Review of Systems: Constitutional : No Weight loss, No Fever, No Chills, No Night Sweats, No Fatigue, No Malaise ENT/Mouth : No Hearing loss, No Ear Pain, No Nasal Congestion, No Sinus Pain, No Hoarseness, No sore throat, No Rhinorrhea, No Swallowing Difficulty Eyes: No Eye Pain, No Swelling, No Redness, No Foreign Body, No Discharge, No Vision Changes Cardiovascular : No Chest Pain, No SOB, No Dyspnea on Exertion, No Orthopnea, No Edema, No Palpitations Respiratory : No Cough, No Sputum, No Wheezing, No Smoke Exposure, No Dyspnea Gastrointestinal : No Nausea, No Vomiting, No Diarrhea, No Constipation, No abdo alex Pain, No Hematochezia, No Melena Genitourinary : no irregular bleeding, No Dysuria, No Urinary Frequency, No Hematuria, No Urinary Incontinence, No Urgency, No Flank Pain, No Urinary Flow Changes, No Hesitancy Musculoskeletal : No joint pain, No Myalgias, No Joint Swelling Skin : No Skin Lesions, No rash Neuro : No Weakness, No Numbness, No Paresthesias, No Loss of Consciousness, No Dizziness, No Headache Psych : Patient complaining of feeling very anxious, denies suicidal or homicidal ideation Heme/Lymph: No Bruising, No Bleeding,No Lymphadenopathy Endocrine : No Polyuria, No Polydipsia, No Temperature Intolerance [facility] Past Medical History Medical History (Updated 10/11/21 @ 13:36 by Kristin Verdugo MD) Anxiety Diabetes Substance abuse Surgical History Status post transmetatarsal amputation of right foot (09/24/21) Social History Social History Household Members: Children Housing: Apartment Do you presently have visiting nurse or other home services: No Alcohol intake: never Patient Tobacco Use Status: Current everyday Tobacco user Tobacco use type: Cigarette Cigarette Packs Per Day: 1 Cigarettes Per Day: 20.0 Use of substances other than those prescribed or required for medical reasons: Yes Substance Use Type: Inhalants Advance Directives: No Advance Directives Information Provided: Yes service: No Current occupational status: unemployed Physical Exam ED Vital Signs: Vital Signs - 24 hr 10/11/21 11:48 10/11/21 12:17 10/11/21 14:26 Temperature 97.6 F Pulse Rate 120 H 110 H Respiratory Rate 28 H 16 Blood Pressure 104/67 114/70 Pulse Oximetry 97 98 BMI result Body Mass Index 27.1 Const Other: Appearance: Alert. Oriented X3. Very anxious Eyes: Initially a 2 mm pinpoint pupils, reactive to light, now 4 mm, responsive to light ENT: Pharynx normal. Neck: Normal inspection. Neck supple. No lymph nodes noted. No crepitus CVS: Normal heart rate and rhythm. Pulses normal. Normal S1 and S2 Respiratory: No respiratory distress. Breath sounds normal. No Wheezing. No rales Abdomen: Soft and nontender. No rigidity. No distention. Skin: Skin warm and dry. Mottled skin in lower extremities, C extremities below Extremities: Healing wound in the right foot from a right transmetatarsal amputation, some of the stitches have, of, mild bleeding. Patient has an ulcer on a previously amputated greater toe., also patient has chronic venous stasis with crusted ulcers on the lateral aspect of the left ankle Neuro: Oriented X 3. No motor deficit. No sensory deficit. Moving all extermities. No slurred speech. Cranial nerves 2-12 grossly intact Psych: Calm, cooperative, keeps saying ?I am sorry Course Course Course Narrative: When patient was being addressed and changed to hospital clothes, 3 envelopes of heroin fell out of her clothes Patient's white blood cell count is elevated, likely secondary to recent surgic al amputation. The foot itself does not seem infected. Patient does not have fever. Elevated lactic acid likely secondary to hypoxia due to overdose. Troponin elevation likely secondary to demand ischemia secondary to being hypoxic as above mentioned. Patient is empirically being treated with Zosyn. Sepsis not suspected at this time, 13:30 Patient denies chest pain or shortness of breath. For hyperglycemia, patient received IV fluids and 10 units of insulin, patient's glucose improved to 195 Patient being admitted. I discussed the patient with nurse practitioner Galindo Medical Decision Making Lab Data Result diagrams: 10/11/21 12:39 10/11/21 12:39 Labs: Lab Results 10/11/21 10/11/21 10/11/21 Range/Units 11:49 12:39 12:39 WBC 21.8 H (4.8-10.8) X10*3/uL RBC 3.47 L (4.20-5.50) X10*6/uL Hgb 9.1 L (12.0-16.0) g/dl Hct 30.1 L (37.0-47.0) % MCV 86.7 (80.0-98.0) fL MCH 26.2 L (27.0-33.0) pg MCHC 30.2 L (31.0-35.0) g/dl RDW 15.1 (11.0-16.0) % Plt Count 440 H (160-400) X10*3/uL MPV 9.5 (9.4-12.3) fL Immature Gran % (Auto) 0.8 H (0.0-0.4) % Neut % (Auto) 85.3 H (45-73) % Lymph % (Auto) 12.3 L (20-40) % Randall % (Auto) 1.1 L (2-11) % Eos % (Auto) 0.1 (0-4) % Baso % (Auto) 0.4 (0-2) % Lymph # (Auto) 2.7 (1.2-4.9) X10*3/uL Randall # (Auto) 0.3 (0.1-1.2) X10*3/uL Eos # (Auto) 0.0 (0.0-0.4) X10*3/uL Baso # (Auto) 0.1 (0.0-0.2) X10*3/uL Abs Immat Gran (auto) 0.17 H (0.00-0.03) X10*3/uL Absolute Neuts (auto) 18.6 H (2.0-8.3) x10*3/uL Absolute Nucleated RBC 0.000 (0.0-0.012) X10*3/uL Nucleated RBC % (auto) 0.0 (0.0-0.2) /100WBC PT (9.9-13.0) SEC INR (0.9-1.1) VBG pH (7.32-7.43) VBG pCO2 mmHg VBG pO2 mmHg VBG HCO3 (22-26) mmol/L VBG O2 Saturation % VBG Base Excess mmol/L Sodium 139 (135-145) mmol/L Potassium 4.9 D (3.3-5.1) mmol/L Chloride 102 (96-108) mmol/L Carbon Dioxide 19 L (22-29) mmol/L Anion Gap 23 H (12-20) BUN 34 H D (9-16) mg/dL Creatinine 2.02 H (0.5-1.4) mg/dL Estim Creat Clear Calc 35.5 Estimated GFR 26 POC Glucose 328 H (60-115) mg/dL Random Glucose 333 H (60-115) mg/dL Lactic Acid (0.5-2.0) mmol/L Calcium 9.5 (8.4-10.2) mg/dL Magnesium 2.2 (1.6-2.6) mg/dL Total Bilirubin 0.3 (0.0-1.0) mg/dL Direct Bilirubin 0.2 (0.0-0.5) mg/dL AST 27 D (5-31) U/L ALT 15 (0-31) U/L Alkaline Phosphatase 125 H D (39-117) U/L Ammonia Troponin I High Sens (<3.5-17.0) ng/L B-Natriuretic Peptide (<100) pg/mL Total Protein 8.7 H D (6.5-8.0) g/dL Albumin 3.8 D (3.5-5.0) g/dL TSH (0.32-4.0) uIU/mL Free T4 (0.71-1.85) ng/dL Salicylates < 5.0 L (15-30) mg/dL Acetaminophen < 1 (<30) mcg/mL Ethyl Alcohol mg/dL Acetone, Qual (Negative) COVID-19 (EUSEBIO) (Negative) COVID-19 Clin Com 10/11/21 10/11/21 10/11/21 Range/Units 12:39 12:39 12:39 WBC (4.8-10.8) X10*3/uL RBC (4.20-5.50) X10*6/uL Hgb (12.0-16.0) g/dl Hct (37.0-47.0) % MCV (80.0-98.0) fL MCH (27.0-33.0) pg MCHC (31.0-35.0) g/dl RDW (11.0-16.0) % Plt Count (160-400) X10*3/uL MPV (9.4-12.3) fL Immature Gran % (Auto) (0.0-0.4) % Neut % (Auto) (45-73) % Lymph % (Auto) (20-40) % Randall % (Auto) (2-11) % Eos % (Auto) (0-4) % Baso % (Auto) (0-2) % Lymph # (Auto) (1.2-4.9) X10*3/uL Randall # (Auto) (0.1-1.2) X10*3/uL Eos # (Auto) (0.0-0.4) X10*3/uL Baso # (Auto) (0.0-0.2) X10*3/uL Abs Immat Gran (auto) (0.00-0.03) X10*3/uL Absolute Neuts (auto) (2.0-8.3) x10*3/uL Absolute Nucleated RBC (0.0-0.012) X10*3/uL Nucleated RBC % (auto) (0.0-0.2) /100WBC PT (9.9-13.0) SEC INR (0.9-1.1) VBG pH (7.32-7.43) VBG pCO2 mmHg VBG pO2 mmHg VBG HCO3 (22-26) mmol/L VBG O2 Saturation % VBG Base Excess mmol/L Sodium (135-145) mmol/L Potassium (3.3-5.1) mmol/L Chloride (96-108) mmol/L Carbon Dioxide (22-29) mmol/L Anion Gap (12-20) BUN (9-16) mg/dL Creatinine (0.5-1.4) mg/dL Estim Creat Clear Calc Estimated GFR POC Glucose (60-115) mg/dL Random Glucose (60-115) mg/dL Lactic Acid 4.9 H* (0.5-2.0) mmol/L Calcium (8.4-10.2) mg/dL Magnesium (1.6-2.6) mg/dL Total Bilirubin (0.0-1.0) mg/dL Direct Bilirubin (0.0-0.5) mg/dL AST (5-31) U/L ALT (0-31) U/L Alkaline Phosphatase (39-117) U/L Ammonia Cancelled Troponin I High Sens 212.7 H* (<3.5-17.0) ng/L B-Natriuretic Peptide 75 (<100) pg/mL Total Protein (6.5-8.0) g/dL Albumin (3.5-5.0) g/dL TSH (0.32-4.0) uIU/mL Free T4 (0.71-1.85) ng/dL Salicylates (15-30) mg/dL Acetaminophen (<30) mcg/mL Ethyl Alcohol mg/dL Acetone, Qual (Negative) COVID-19 (EUSEBIO) (Negative) COVID-19 Clin Com 10/11/21 10/11/21 10/11/21 Range/Units 12:39 12:39 12:40 WBC (4.8-10.8) X10*3/uL RBC (4.20-5.50) X10*6/uL Hgb (12.0-16.0) g/dl Hct (37.0-47.0) % MCV (80.0-98.0) fL MCH (27.0-33.0) pg MCHC (31.0-35.0) g/dl RDW (11.0-16.0) % Plt Count (160-400) X10*3/uL MPV (9.4-12.3) fL Immature Gran % (Auto) (0.0-0.4) % Neut % (Auto) (45-73) % Lymph % (Auto) (20-40) % Randall % (Auto) (2-11) % Eos % (Auto) (0-4) % Baso % (Auto) (0-2) % Lymph # (Auto) (1.2-4.9) X10*3/uL Randall # (Auto) (0.1-1.2) X10*3/uL Eos # (Auto) (0.0-0.4) X10*3/uL Baso # (Auto) (0.0-0.2) X10*3/uL Abs Immat Gran (auto) (0.00-0.03) X10*3/uL Absolute Neuts (auto) (2.0-8.3) x10*3/uL Absolute Nucleated RBC (0.0-0.012) X10*3/uL Nucleated RBC % (auto) (0.0-0.2) /100WBC PT 13.2 H (9.9-13.0) SEC INR 1.2 H (0.9-1.1) VBG pH (7.32-7.43) VBG pCO2 mmHg VBG pO2 mmHg VBG HCO3 (22-26) mmol/L VBG O2 Saturation % VBG Base Excess mmol/L Sodium (135-145) mmol/L Potassium (3.3-5.1) mmol/L Chloride (96-108) mmol/L Carbon Dioxide (22-29) mmol/L Anion Gap (12-20) BUN (9-16) mg/dL Creatinine (0.5-1.4) mg/dL Estim Creat Clear Calc Estimated GFR POC Glucose (60-115) mg/dL Random Glucose (60-115) mg/dL Lactic Acid (0.5-2.0) mmol/L Calcium (8.4-10.2) mg/dL Magnesium (1.6-2.6) mg/dL Total Bilirubin (0.0-1.0) mg/dL Direct Bilirubin (0.0-0.5) mg/dL AST (5-31) U/L ALT (0-31) U/L Alkaline Phosphatase (39-117) U/L Ammonia Troponin I High Sens (<3.5-17.0) ng/L B-Natriuretic Peptide (<100) pg/mL Total Protein (6.5-8.0) g/dL Albumin (3.5-5.0) g/dL TSH 5.93 H (0.32-4.0) uIU/mL Free T4 1.00 (0.71-1.85) ng/dL Salicylates (15-30) mg/dL Acetaminophen (<30) mcg/mL Ethyl Alcohol < 10 mg/dL Acetone, Qual Negative (Negative) COVID-19 (EUSEBIO) (Negative) COVID-19 Clin Com 10/11/21 10/11/21 10/11/21 Range/Units 12:40 12:44 13:27 WBC (4.8-10.8) X10*3/uL RBC (4.20-5.50) X10*6/uL Hgb (12.0-16.0) g/dl Hct (37.0-47.0) % MCV (80.0-98.0) fL MCH (27.0-33.0) pg MCHC (31.0-35.0) g/dl RDW (11.0-16.0) % Plt Count (160-400) X10*3/uL MPV (9.4-12.3) fL Immature Gran % (Auto) (0.0-0.4) % Neut % (Auto) (45-73) % Lymph % (Auto) (20-40) % Randall % (Auto) (2-11) % Eos % (Auto) (0-4) % Baso % (Auto) (0-2) % Lymph # (Auto) (1.2-4.9) X10*3/uL Randall # (Auto) (0.1-1.2) X10*3/uL Eos # (Auto) (0.0-0.4) X10*3/uL Baso # (Auto) (0.0-0.2) X10*3/uL Abs Immat Gran (auto) (0.00-0.03) X10*3/uL Absolute Neuts (auto) (2.0-8.3) x10*3/uL Absolute Nucleated RBC (0.0-0.012) X10*3/uL Nucleated RBC % (auto) (0.0-0.2) /100WBC PT (9.9-13.0) SEC INR (0.9-1.1) VBG pH 7.27 L (7.32-7.43) VBG pCO2 41 mmHg VBG pO2 40 mmHg VBG HCO3 19 L (22-26) mmol/L VBG O2 Saturation 55.0 % VBG Base Excess -6.5 mmol/L Sodium (135-145) mmol/L Potassium (3.3-5.1) mmol/L Chloride (96-108) mmol/L Carbon Dioxide (22-29) mmol/L Anion Gap (12-20) BUN (9-16) mg/dL Creatinine (0.5-1.4) mg/dL Estim Creat Clear Calc Estimated GFR POC Glucose 195 H (60-115) mg/dL Random Glucose (60-115) mg/dL Lactic Acid (0.5-2.0) mmol/L Calcium (8.4-10.2) mg/dL Magnesium (1.6-2.6) mg/dL Total Bilirubin (0.0-1.0) mg/dL Direct Bilirubin (0.0-0.5) mg/dL AST (5-31) U/L ALT (0-31) U/L Alkaline Phosphatase (39-117) U/L Ammonia Troponin I High Sens (<3.5-17.0) ng/L B-Natriuretic Peptide (<100) pg/mL Total Protein (6.5-8.0) g/dL Albumin (3.5-5.0) g/dL TSH (0.32-4.0) uIU/mL Free T4 (0.71-1.85) ng/dL Salicylates (15-30) mg/dL Acetaminophen (<30) mcg/mL Ethyl Alcohol mg/dL Acetone, Qual (Negative) COVID-19 (EUSEBIO) Negative (Negative) COVID-19 Clin Com See Note Imaging Data Chest x-ray: Radiologist's impression: Hiatal hernia. Otherwise the cardiomediastinal silhouette is unremarkable. No vascular congestion or pulmonary edema. No consolidation or effusion. No pneumothorax. XR/XR chest 1V IMPRESSION: No radiographic evidence of aspiration. Discharge Plan Discharge Clinical Impression: Overdose, Acute kidney injury, Demand ischemia, Hyperglycemia Patient Disposition: Admitted As Inpatient Prescriptions: No Action ibuprofen 800 mg tablet 1 tab PO TID 0RF gabapentin 400 mg capsule 400 mg PO QID 0RF sertraline 100 mg tablet 1 tab PO BID 0RF alprazolam 2 mg tablet 2 mg PO BID 0RF alprazolam 2 mg tablet 1 mg PO DAILY PRN (Reason: Anxiety) 0RF Lantus Solostar U-100 Insulin 100 unit/mL (3 mL) insulin pen 35 unit subcut BEDTIME 0RF amlodipine 10 mg Tablet 10 mg PO DAILY Qty: 30 0RF Protocol: Hold for SBP< HOLD for SBP < : 90 lisinopril 5 mg Tablet 5 mg PO DAILY Qty: 30 0RF Protocol: Hold for SBP< HOLD for SBP < : 90 linezolid [Zyvox] 600 mg tablet 600 mg PO Q12H 42 Days Qty: 84 0RF levofloxacin 500 mg tablet 500 mg PO Q24H 42 Days Qty: 42 0RF (DME) walker Misc See Rx Instructions .Route Qty: 1 0RF Rx Instructions: As directed oxycodone 5 mg tablet 5 mg PO Q6H PRN (Reason: pain) Qty: 12 0RF
[2021-10-11 12:09] LABS: Glucose, Whole Blood 328 mg/dL (60-115)
[2021-10-11] MEDS: Insulin Regular, Human 100 UNIT/ML 3 ML VIAL 10 UNIT IVPUSH (12:12)
[2021-10-11] MEDS: 0.9 % Sodium Chloride 1,000 ML 999 ML IVCONT ×2 (12:15→14:53)
[2021-10-11 12:48] LABS: MANUAL DIFF FLAG NO
[2021-10-11 12:50] LABS: VBG Base Excess -6.5 mmol/L; VBG HCO3 19 mmol/L (22-26); VBG pCO2 41 mmHg; VBG pH 7.27 (7.32-7.43); VBG pO2 40 mmHg
[2021-10-11 12:50] LABS: Venous Blood Gas Refer to POC result
[2021-10-11 12:56] LABS: Basophils Absolute Auto 0.1 X10*3/uL (0.0-0.2); Basophils Percent Auto 0.4 % (0-2); Eosinophils Percent Auto 0.1 % (0-4); Hematocrit 30.1 % (37.0-47.0); Hemoglobin 9.1 g/dl (12.0-16.0); Imm Gran Abs Auto 0.17 X10*3/uL (0.00-0.03); Imm Gran Pct Auto 0.8 % (0.0-0.4); Lymphocytes Absolute Auto 2.7 X10*3/uL (1.2-4.9); Lymphocytes Percent Auto 12.3 % (20-40); Mean Corpuscular HGB Conc 30.2 g/dl (31.0-35.0); Mean Corpuscular Hemoglobin 26.2 pg (27.0-33.0); Mean Corpuscular Volume 86.7 fL (80.0-98.0); Mean Platelet Volume 9.5 fL (9.4-12.3); Monocytes Absolute Auto 0.3 X10*3/uL (0.1-1.2); Monocytes Percent Auto 1.1 % (2-11); Neutrophils Absolute Auto 18.6 x10*3/uL (2.0-8.3); Neutrophils Percent Auto 85.3 % (45-73); Platelet Count 440 X10*3/uL (160-400); Red Blood Count 3.47 X10*6/uL (4.20-5.50); Red Cell Distribution Width 15.1 % (11.0-16.0); White Blood Count 21.8 X10*3/uL (4.8-10.8)
[2021-10-11 13:04] LABS: INTERNATIONAL NORM RATIO 1.2 (0.9-1.1); Prothrombin Time 13.2 SEC (9.9-13.0)
[2021-10-11 13:09] LABS: Ethanol < 10 mg/dL
[2021-10-11 13:13] LABS: Acetone, serum QL Negative (Negative)
[2021-10-11 13:14] LABS: Acetaminophen LAB < 1 mcg/mL (<30); Alanine Aminotransferase 15 U/L (0-31); Albumin Level 3.8 g/dL (3.5-5.0); Alkaline Phosphatase 125 U/L (39-117); Anion Gap 23 (12-20); Aspartate Amino Transferase 27 U/L (5-31); Bilirubin Direct 0.2 mg/dL (0.0-0.5); Bilirubin Total 0.3 mg/dL (0.0-1.0); Blood Urea Nitrogen 34 mg/dL (9-16); Calcium 9.5 mg/dL (8.4-10.2); Carbon Dioxide 19 mmol/L (22-29); Chloride 102 mmol/L (96-108); Creatinine Clr Calc Pharmacy 35.5; Estimated Glomerular Filt Rate 26; Glucose Random 333 mg/dL (60-115); Magnesium 2.2 mg/dL (1.6-2.6); Potassium 4.9 mmol/L (3.3-5.1); Salicylate < 5.0 mg/dL (15-30); Sodium 139 mmol/L (135-145); Total Protein 8.7 g/dL (6.5-8.0)
[2021-10-11 13:14] LABS: COVID-19 Test Negative (Negative); IDNOW Serial# 16C4AD1C
[2021-10-11 13:15] LABS: Lactic Acid 4.9 mmol/L (0.5-2.0)
[2021-10-11 13:21] LABS: B Type Natriuretic Peptide 75 pg/mL (<100); Troponin-I High Sensitivity 212.7 ng/L (<3.5-17.0)
--- NOTE | 2021-10-11 13:29 | ECG_ITS ---
Test Reason : REPEAT Blood Pressure : / mmHG Vent. Rate : 109 BPM Atrial Rate : 109 BPM P-R Int : 126 ms QRS Dur : 092 ms QT Int : 326 ms P-R-T Axes : 050 041 033 degrees QTc Int : 439 ms Poor data quality Sinus tachycardia Otherwise normal ECG When compared with ECG of 11-OCT-2021 11:47, Right bundle branch block is no longer Present Poor data quality in current ECG precludes serial comparison Referred By: Jocelyn Medley Electronically Signed By:MADHAV DELEON MD
[2021-10-11 13:31] LABS: Glucose, Whole Blood 195 mg/dL (60-115)
[2021-10-11 13:31] LABS: TSH reflex Free T4 5.93 uIU/mL (0.32-4.0)
[2021-10-11] MEDS: Piperacillin Sodium/Tazobactam 3.375 GM in 0.9 % Sodium Chloride 50 ML IV (13:57)
--- NOTE | 2021-10-11 14:16 | PC.NURSE ---
Pt much more alert than on arival. wounds to b/l feet, pictures taken to be placed in chart by Dr Verdugo. Pt refusing blood draw for Ammonia at this time. Fluids infusing, abx given. repeat POC trending down at 190s. Tolerating PO fluids. 02 titrated down to 2lpm and sat 97% without difficulty breathing While drawing labs heroin bags noted to be on floor, security removed and other belongings placed in decon Spoke to son Henry who lives with pt who states he believes pt overdosed, and will frequently use and mix meds such as gabapentin, xanax, methadone and heroin. Pt continues to deny at this time.
[2021-10-11 14:46] LABS: Reflex Lactate? Lactic Acid Added
--- NOTE | 2021-10-11 15:05 | PC.NURSE ---
This RN spoke to posion control, recommendations passed along to Dr Verdugo. Pt is difficult stick, staff to attempt repeat troponin and lactic. Per Dr Verdugo, no Ammonia needed at this time Report given to Christina SAUCEDO
--- NOTE | 2021-10-11 15:15 | MHC.RECOVRN ---
Spoke with [facility] Alfonso, pt received 30 mg methadone at 0833 today, 10/11/21. Verification faxed to pharmacy.
--- NOTE | 2021-10-11 15:19 | PC.NURSE ---
RN assumed care at 1500. Pt alert and maintains eye contact. Oriented x4 at this time, calm and cooperative. Denies using any illicit drugs at this time, stating I only took my Xanax and methadone this morning . Complains of intermittent headache and nausea. CIWA score 4 at this time.
--- NOTE | 2021-10-11 16:26 | PC.NURSE ---
2 attempts total by RN and Marin Burton, unable to obtain blood, pt difficulty stick, hx IV drug user. Pt refusing any other person to try besides phlebotomy. Phlebotomy called at 1613 to attempt repeat lactic and repeat troponin.
--- NOTE | 2021-10-11 16:39 | PM.IMHP ---
History of Present Illness Date of Service: 10/11/21 <Jocelyn Medley NP - Last Filed: 10/12/21 09:48> Chief Complaint: Overdose <Jocelyn Medley NP - Last Filed: 10/12/21 09:48> Review of Systems Review of Systems: Denies any recent fever chills or decrease in appetite respiratory denies any shortness of breath coverage production cardiovascular is adjustment of any PND or edema gastrointestinal denies any dysphagia abdominal pain nausea vomiting or diarrhea genitourinary denies any dysuria frequency or hematuria musculoskeletal denies any joint pain or swelling neuropsych denies any weakness or seizures all other systems reviewed are negative <Jocelyn Medley NP - Last Filed: 10/12/21 09:48> [facility] Medical History: Medical History (Updated 10/13/21 @ 12:01 by Serge Chaudhari MD) Anxiety Diabetes Substance abuse <Jocelyn Medley NP - Last Filed: 10/12/21 09:48> Surgical History: Surgical History (Updated 10/13/21 @ 12:26 by Kirill Muhammad MD) S/P amputation of foot Status post transmetatarsal amputation of right foot (09/24/21) <Jocelyn Medley NP - Last Filed: 10/12/21 09:48> Social History: Social History Household Members: Family Housing: Apartment Do you presently have visiting nurse or other home services: Yes (Supposed to but pt. went to hospital) Alcohol intake: never Patient Tobacco Use Status: Current everyday Tobacco user Tobacco use type: Cigarette Cigarette Packs Per Day: 1 Cigarettes Per Day: 20.0 Smoked in Last 30 Days: Yes Patient Interested in Nicotine Replacement: Yes Patient Given Instructions on How to Stop Smoking: No Second Hand Smoke Exposure: Yes Use of substances other than those prescribed or required for medical reasons: Yes Substance Use Type: Heroin, Opiates and Prescription Drugs Substance Use Frequency: Chronic Longstanding Last Used Substance: Just Prior to Admission Currently Displaying Signs/Symptoms of Drug Intoxication Withdrawal: No Any prior treatment program specific to substance use: Yes Have you been hit, kicked, punched, or otherwise hurt by someone within the past year? If so, by whom?: No Do you feel safe in your current relationship?: No Current Relationship Is there a partner from a previous relationship who is making you feel unsafe now?: No Are you made to feel afraid or neglected: No Advance Directives: No Advance Directives Information Provided: Yes Advance Directives on File: Yes Do you have thoughts of harming others: None Do you have a plan to hurt others: No Plan Recently lost weight without trying: No Eating poorly because of decreased appetite: No Nutrition Risks: No Nutritional Risk Patient : No : No Poor oral hygiene: Yes service: No Current occupational status: unemployed <Jocelyn Medley NP - Last Filed: 10/12/21 09:48> Meds Allergies/Adverse reactions: Allergies Allergy/AdvReac Type Severity Reaction Status Date / Time prednisone [PREDNISONE] Allergy Unknown RASH Verified 09/24/21 11:47 <Jocelyn Medley NP - Last Filed: 10/12/21 09:48> Home medications: Home Medications Medication Instructions Recorded Confirmed Last Taken Type alprazolam 2 mg tablet 1 mg PO DAILY PRN 09/21/21 10/11/21 Unknown History alprazolam 2 mg tablet 2 mg PO BID 09/21/21 10/11/21 Unknown History gabapentin 400 mg capsule 400 mg PO QID 09/21/21 10/11/21 Unknown History insulin glargine 100 unit/mL (3 35 unit SUBCUT BEDTIME 09/21/21 10/11/21 Unknown History mL) subcutaneous pen (Lantus Solostar U-100 Insulin) sertraline 100 mg tablet 1 tab PO BID 09/21/21 10/11/21 Unknown History methadone 10 mg/mL oral concentrate 30 mg PO DAILY 10/12/21 10/12/21 Unknown History <Jocelyn Medley NP - Last Filed: 10/12/21 09:48> Physical Exam Vital Signs and Narrative: Vital Signs: Last Vital Signs Temp 97.6 F 10/11/21 11:48 Pulse 107 H 10/11/21 15:16 Resp 30 H 10/11/21 15:16 BP 120/71 10/11/21 15:16 Pulse Ox 94 10/11/21 15:16 BMI result Body Mass Index 27.1 <Jocelyn Medley NP - Last Filed: 10/12/21 09:48> Appearing in no acute distress head is normocephalic atraumatic eyes pupils are PERRLA sclera is anicteric mouth throat mucous membranes are intact and moist neck is supple no lymphadenopathy, no JVD noted lung sounds are clear to auscultation heart regular rate rhythm, clear S1, S2 positive bowel sounds, abdomen is soft, nontender neuro patient is alert x3, no focal deficits Left great toe dime sized ulcer with dry surrounding skin, wound bed pink Right TMA with very dry scabbed/eshcar area with some mild erythema surrounding suture site, no obvious drainage or odor <Jocelyn Medley NP - Last Filed: 10/12/21 09:48> Results Labs CBC and Chem 7: : 10/12/21 04:19 10/13/21 05:24 <Jocelyn Medley NP - Last Filed: 10/12/21 09:48> Labs: Laboratory Results - last 24 hr 10/11/21 10/11/21 10/11/21 11:49 12:39 12:39 MCV 86.7 MCH 26.2 L MCHC 30.2 L RDW 15.1 Plt Count 440 H MPV 9.5 Immature Gran % (Auto) 0.8 H Neut % (Auto) 85.3 H Lymph % (Auto) 12.3 L [place] % (Auto) 1.1 L Eos % (Auto) 0.1 Baso % (Auto) 0.4 Lymph # (Auto) 2.7 [place] # (Auto) 0.3 Eos # (Auto) 0.0 Baso # (Auto) 0.1 Abs Immat Gran (auto) 0.17 H Absolute Neuts (auto) 18.6 H Absolute Nucleated RBC 0.000 Nucleated RBC % (auto) 0.0 PT INR VBG pH VBG pCO2 VBG pO2 VBG HCO3 VBG O2 Saturation VBG Base Excess Anion Gap 23 H Estim Creat Clear Calc 35.5 Estimated GFR 26 POC Glucose 328 H Random Glucose 333 H Lactic Acid Calcium 9.5 Magnesium 2.2 Total Bilirubin 0.3 Direct Bilirubin 0.2 AST 27 D ALT 15 Alkaline Phosphatase 125 H D Ammonia B-Natriuretic Peptide Total Protein 8.7 H D Albumin 3.8 D TSH Free T4 Salicylates < 5.0 L Acetaminophen < 1 Ethyl Alcohol Acetone, Qual COVID-19 ([employer]) COVID-19 Clin Com 10/11/21 10/11/21 10/11/21 12:39 12:39 12:39 MCV MCH MCHC RDW Plt Count MPV Immature Gran % (Auto) Neut % (Auto) Lymph % (Auto) [place] % (Auto) Eos % (Auto) Baso % (Auto) Lymph # (Auto) [place] # (Auto) Eos # (Auto) Baso # (Auto) Abs Immat Gran (auto) Absolute Neuts (auto) Absolute Nucleated RBC Nucleated RBC % (auto) PT INR VBG pH VBG pCO2 VBG pO2 VBG HCO3 VBG O2 Saturation VBG Base Excess Anion Gap Estim Creat Clear Calc Estimated GFR POC Glucose Random Glucose Lactic Acid 4.9 H* Calcium Magnesium Total Bilirubin Direct Bilirubin AST ALT Alkaline Phosphatase Ammonia Cancelled B-Natriuretic Peptide 75 Total Protein Albumin TSH Free T4 Salicylates Acetaminophen Ethyl Alcohol Acetone, Qual COVID-19 ([employer]) [employer] 10/11/21 10/11/21 10/11/21 12:39 12:39 12:40 MCV MCH MCHC RDW Plt Count MPV Immature Gran % (Auto) Neut % (Auto) Lymph % (Auto) [place] % (Auto) Eos % (Auto) Baso % (Auto) Lymph # (Auto) [place] # (Auto) Eos # (Auto) Baso # (Auto) Abs Immat Gran (auto) Absolute Neuts (auto) Absolute Nucleated RBC Nucleated RBC % (auto) PT 13.2 H INR 1.2 H VBG pH VBG pCO2 VBG pO2 VBG HCO3 VBG O2 Saturation VBG Base Excess Anion Gap Estim Creat Clear Calc Estimated GFR POC Glucose Random Glucose Lactic Acid Calcium Magnesium Total Bilirubin Direct Bilirubin AST ALT Alkaline Phosphatase Ammonia B-Natriuretic Peptide Total Protein Albumin TSH 5.93 H Free T4 1.00 Salicylates Acetaminophen Ethyl Alcohol < 10 Acetone, Qual Negative COVID-19 ([employer]) [employer] 10/11/21 10/11/21 10/11/21 12:40 12:44 13:27 MCV MCH MCHC RDW Plt Count MPV Immature Gran % (Auto) Neut % (Auto) Lymph % (Auto) [place] % (Auto) Eos % (Auto) Baso % (Auto) Lymph # (Auto) [place] # (Auto) Eos # (Auto) Baso # (Auto) Abs Immat Gran (auto) Absolute Neuts (auto) Absolute Nucleated RBC Nucleated RBC % (auto) PT INR VBG pH 7.27 L VBG pCO2 41 VBG pO2 40 VBG HCO3 19 L VBG O2 Saturation 55.0 VBG Base Excess -6.5 Anion Gap Estim Creat Clear Calc Estimated GFR POC Glucose 195 H Random Glucose Lactic Acid Calcium Magnesium Total Bilirubin Direct Bilirubin AST ALT Alkaline Phosphatase Ammonia B-Natriuretic Peptide Total Protein Albumin TSH Free T4 Salicylates Acetaminophen Ethyl Alcohol Acetone, Qual COVID-19 ([employer]) Negative COVID-19 Clin Com See Note <Jocelyn Medley NP - Last Filed: 10/12/21 09:48> Imaging Radiologist's Impressions: Impressions Chest X-Ray 10/11/21 13:35 IMPRESSION: No radiographic evidence of aspiration. <Jocelyn Medley NP - Last Filed: 10/12/21 09:48> Assessment and Plan (1) Overdose: Status: Acute <Jocelyn Medley NP - Last Filed: 10/12/21 09:48> Plan 51 year old women admitted after an overdose. She was recently admitted for osteomyelitis and s/p right foot TMA. Severe sepsis secondary to acute on chronic osteomyelitis Tachycardia, tachypnea, leukocytosis, lactic acidosis Was not taking zyvox at home only levaquin Start Vancomycin Follow blood cx repeat Left foot xray to assess for worsening ID consult Overdose Patient denies but was found gasping for air by family, s/p narcan Addiction consult continue methadone Acute hypoxic respiratory failure secondary to overdose no aspiration noted on cxr requiring 2 liters of oxygen at this time Elevated troponin No chest pain no ischemic changes on EKG, although shows RBBB Likely secondary to OD and hypoxia Recheck trop consult cardiology BERNABE. No clear etiology Will hold lisinopril Renally dosed vancomycin IV fluids Status post TMA Wound care nurse consult Lac-Hydrin for dry skin Gen surg for possible debridement Diabetes ss, ada diet lantus Hypertension. stable Hold antihypertensives to avoid hypotension in light of sepsis Mental health continue home medications DVT prophylaxis with heparin Attending Dr. Gamboa Full code <Jocelyn Medley NP - Last Filed: 10/12/21 09:48> 51 year old women admitted after an overdose. She was recently admitted for osteomyelitis and s/p right foot TMA. Severe sepsis secondary to acute on chronic osteomyelitis Tachycardia, tachypnea, leukocytosis, lactic acidosis Was not taking zyvox at home only levaquin Start Vancomycin Follow blood cx repeat Left foot xray to assess for worsening ID consult Overdose Patient denies but was found gasping for air by family, s/p narcan Addiction consult continue methadone Acute hypoxic respiratory failure secondary to overdose no aspiration noted on cxr requiring 2 liters of oxygen at this time Elevated troponin No chest pain no ischemic changes on EKG, although shows RBBB Likely secondary to OD and hypoxia Recheck trop consult cardiology BERNABE. No clear etiology Will hold lisinopril Renally dosed vancomycin IV fluids Status post TMA Wound care nurse consult [place]-Hydrin for dry skin Gen surg for possible debridement Diabetes ss, ada diet lantus Hypertension. stable Hold antihypertensives to avoid hypotension in light of sepsis Mental health continue home medications DVT prophylaxis with heparin Attending Dr. Chaudhari Full code <David Gamboa MD - Last Filed: 10/13/21 14:14> Quality Stroke Does the patient have a stroke diagnosis?: No <Jocelyn Medley NP - Last Filed: 10/12/21 09:48> VTE Prior VTE?: No <Jocelyn Medley NP - Last Filed: 10/12/21 09:48> VTE Risk Level:: Medical - moderate - high <Jocelyn Medley NP - Last Filed: 10/12/21 09:48> VTE Device Contraindication: Treatment Not Indicated <Jocelyn Medley NP - Last Filed: 10/12/21 09:48> VTE Drug Contraindication: N/A - Med Ordered <Jocelyn Medley NP - Last Filed: 10/12/21 09:48>
[2021-10-11 17:14] LABS: Appearance Urine CLEAR; Color Urine YELLOW; Glucose Urine UA NEG (NEG); Leukocyte Esterase Urine NEG (NEG); Nitrite Urine NEG (NEG); Specific Gravity - Urine 1.025 (1.005-1.025); UACC Culture Trigger NO; Urine Blood TRACE (NEG); Urine Ketones NEG (NEG); Urine Protein 1+ MG/DL (NEG-TRACE)
--- NOTE | 2021-10-11 17:17 | PHA.PROG ---
Admission Date/Time: October 11, 2021 16:45 Indication: Weight in k.6 kg Adjusted body weight in K.4 Serum Creatinine - Last 168 Hours 10/11/21 12:39 Creatinine 2.02 H Estimated CrCl and GFR - Last 168 Hours 10/11/21 12:39 Estim Creat Clear Calc 35.5 Estimated GFR 26 Vancomycin Loading Dose: 1000 Current Vancomycin Dosing Regimen: [id number] Vancomycin Monitoring using AUC goal of 400 - 600 range with trough as surrogate marker: 501 Date and Time for next Vancomycin Level to be drawn: 09/15 @ 1600 Pharmacist Comments on Vancomycin Plan: PATIENT HAS BERNABE. DOSE WILL BE ADJUSTED WITH CHANGING RENAL FUNCTION Vancomycin dosing will take advantage of [employer] as a clinical decision support tool that uses Bayesian modeling to calculate individual patient's pharmacokinetic parameters and forecast the patient's drug concentration time course with the target goal AUC 24 range of 400 - 600 mg/L/hr.
[2021-10-11 17:23] LABS: Amphetamine Screen Urine Not Detected (Not Detect); Barbiturates, Urine Not Detected (Not Detect); Benzodiazepines Screen Urine POSITIVE (Not Detect); Cannabinoid Screen Urine Not Detected (Not Detect); Cocaine Screen Urine Not Detected (Not Detect); Fentanyl, urine POSITIVE (Not Detect); Opiate Screen Urine POSITIVE (Not Detect); Phencyclidine Screen Urine Not Detected (Not Detect)
[2021-10-11 17:25] LABS: Lactic Acid 1.6 mmol/L (0.5-2.0)
[2021-10-11] MEDS: 0.9 % Sodium Chloride 1,000 ML 100 ML IVCONT (17:32)
[2021-10-11 17:34] LABS: Granular Casts Urine 0-2 /LPF; Hyaline Casts Urine 0-2 /LPF; Squamous Epithelial Cell Urine 1+ /LPF
[2021-10-11 17:36] LABS: Amorphous Sediment Urine TRACE /LPF
[2021-10-11] MEDS: Gabapentin 400 MG CAPSULE PO ×2 (17:36→21:48)
[2021-10-11] MEDS: Heparin Sodium,Porcine 5,000 UNIT/ML VIAL 5000 UNIT SUBCUT (17:36)
[2021-10-11 17:38] LABS: Troponin-I High Sensitivity 1550.8 ng/L (<3.5-17.0)
[2021-10-11] MEDS: Acetaminophen 325 MG TABLET 650 MG PO (17:39)
[2021-10-11] MEDS: vancomycin HCL 1,000 MG in 0.9 % Sodium Chloride 250 ML 270 MG IV (17:51)
[2021-10-11] MEDS: Aspirin 81 MG TAB.CHEW PO (17:57)
[2021-10-11 18:52] LABS: ~Lactic Acid-LAB USE ONLY 1.2 mmol/L (0.5-2.0)
[2021-10-11 21:23] LABS: PTT Heparin Drip 33.8 SEC (53-77.9)
[2021-10-11 21:24] LABS: Glucose, Whole Blood 111 mg/dL (60-115)
[2021-10-11 21:24] LABS: Glucose, Whole Blood 164 mg/dL (60-115)
--- NOTE | 2021-10-11 21:24 | PHA.MEDREC ---
Pharmacy Consult ? Medication Reconciliation Pharmacy has completed the medication reconciliation.SEEMS LIKE PATIENT LIKELY NEVER FILLED HER LINEZOLID ON PRIOR DISCHARGE, SPOKE TO ADMITTING PA ABOUT THE ISSUE
[2021-10-11] MEDS: ALPRAZolam 0.5 MG TABLET 2 MG PO (21:48)
[2021-10-11] MEDS: Sertraline HCL 100 MG TABLET PO (21:48)
[2021-10-11] MEDS: Atorvastatin Calcium 40 MG TABLET PO (21:48)
[2021-10-11] MEDS: Insulin Glargine,Hum.rec.anlog 100 UNIT/ML 10 ML VIAL 35 UNIT SUBCUT (21:50)
[2021-10-11] MEDS: Heparin Sodium,Porcine/1/2NS 25,000 UNIT/250 ML IV.SOLN 11.59 UNIT IVCONT (22:20)
--- NOTE | 2021-10-11 22:20 | PC.NURSE ---
this RN requesting central line placement for future blood draws as well as med/fluid infusions. pt only has 1 point of access, is a very hard stick. multiple RN's techs unable to start second line or draw labs. ED provider (Lucina) states pt will not be getting central line at this time. pt currently has NS @ 100/hr, this RN pausing NS to start heparin drip. Hospitalist notified.
[2021-10-12] VITALS (7 sets, daily range): BP systolic 98–133; BP diastolic 59–88; PULSE 70–80; RESP 12–18; TEMP 36.2–37; O2SAT 91–100
--- NOTE | 2021-10-12 00:52 | PC.NURSE ---
2nd IV line placed by Devorah VERNON 20g R forearm
[2021-10-12 04:27] LABS: MANUAL DIFF FLAG NO
[2021-10-12 04:28] LABS: Basophils Absolute Auto 0.1 X10*3/uL (0.0-0.2); Basophils Percent Auto 0.8 % (0-2); Eosinophils Absolute Auto 0.1 X10*3/uL (0.0-0.4); Eosinophils Percent Auto 1.5 % (0-4); Hemoglobin 7.7 g/dl (12.0-16.0); Imm Gran Abs Auto 0.09 X10*3/uL (0.00-0.03); Lymphocytes Absolute Auto 3.1 X10*3/uL (1.2-4.9); Lymphocytes Percent Auto 34.3 % (20-40); Mean Corpuscular HGB Conc 30.8 g/dl (31.0-35.0); Mean Corpuscular Hemoglobin 26.5 pg (27.0-33.0); Mean Corpuscular Volume 85.9 fL (80.0-98.0); Mean Platelet Volume 9.4 fL (9.4-12.3); Monocytes Absolute Auto 0.5 X10*3/uL (0.1-1.2); Monocytes Percent Auto 5.6 % (2-11); Neutrophils Absolute Auto 5.2 x10*3/uL (2.0-8.3); Neutrophils Percent Auto 56.8 % (45-73); Platelet Count 284 X10*3/uL (160-400); Red Blood Count 2.91 X10*6/uL (4.20-5.50); Red Cell Distribution Width 15.4 % (11.0-16.0); White Blood Count 9.1 X10*3/uL (4.8-10.8)
[2021-10-12 04:40] LABS: Anion Gap 12 (12-20); Blood Urea Nitrogen 29 mg/dL (9-16); Calcium 8.4 mg/dL (8.4-10.2); Carbon Dioxide 23 mmol/L (22-29); Chloride 109 mmol/L (96-108); Creatinine Clr Calc Pharmacy 52.5; Estimated Glomerular Filt Rate 40; Glucose Random 112 mg/dL (60-115); Potassium 3.7 mmol/L (3.3-5.1); Sodium 140 mmol/L (135-145)
[2021-10-12 04:57] LABS: INTERNATIONAL NORM RATIO 1.3 (0.9-1.1); Prothrombin Time 15.2 SEC (9.9-13.0)
[2021-10-12 05:12] LABS: PTT Heparin Drip > 200.0 SEC (53-77.9)
--- NOTE | 2021-10-12 05:17 | PC.NURSE ---
pTT >200 Heparin drip paused by this RN. order for stat pTTHD added. Hospitalist notified
[2021-10-12 05:38] LABS: PTT Heparin Drip 39.4 SEC (53-77.9)
[2021-10-12] MEDS: Heparin Sodium,Porcine 5,000 UNIT/ML VIAL 3300 UNIT IVPUSH (06:38)
--- NOTE | 2021-10-12 06:50 | PC.NURSE ---
this RN contacted hospitalist regarding Heparin drip to clarify directions. Hospitalist instructed this RN to give 40 unit/kg bolus based on PTT of 39.4 and increase rate to 16 units/kg/hr per protocol.
--- NOTE | 2021-10-12 08:24 | PC.NURSE ---
phlebotomy at bedside.
[2021-10-12 08:48] LABS: PTT Heparin Drip 45.7 SEC (53-77.9)
--- NOTE | 2021-10-12 08:48 | P.CONGS_ITS ---
History of Present Illness Consult details Consult date: 10/12/21 Narrative: 51 year old female admitted yesterday because of unresponsiveness at home. She was seen by the family and appeared to be gasping for air. I have been consulted because of her recent transmetatarsal amputation on the right foot. She also has osteomyelitis of the big toe on the left being treated with IV antibiotics. She says that she has had no problems with both feet at this time. She admitted to using heroin yesterday prior to being unresponsive. She says she was very depressed yesterday because it was the anniversary of her 's . She states has been well overnight in the hospital and denies any particular complaints at this time. Review of Systems Constitutional: Constitutional: Denies chills and Denies fever(s) Cardiovascular: Cardiovascular: Denies chest pain Respiratory: Respiratory: Denies cough Gastrointestinal: Gastrointestinal: Denies abdominal pain Genitourinary: Genitourinary: Denies dysuria Psychiatric: Psychiatric: Reports depression and Denies suicidal ideation [facility] Past Medical History Medical History (Updated 10/13/21 @ 12:01 by Serge Chaudhari MD) Anxiety Diabetes Substance abuse Surgical History Surgical History (Updated 10/13/21 @ 12:26 by Kirill Muhammad MD) S/P amputation of foot Status post transmetatarsal amputation of right foot (09/24/21) Social History Social History Household Members: Family Housing: Apartment Do you presently have visiting nurse or other home services: Yes (Supposed to but pt. went to hospital) Alcohol intake: never Patient Tobacco Use Status: Current everyday Tobacco user Tobacco use type: Cigarette Cigarette Packs Per Day: 1 Cigarettes Per Day: 20.0 Smoked in Last 30 Days: Yes Patient Interested in Nicotine Replacement: Yes Patient Given Instructions on How to Stop Smoking: No Second Hand Smoke Exposure: Yes Use of substances other than those prescribed or required for medical reasons: Yes Substance Use Type: Heroin, Opiates and Prescription Drugs Substance Use Frequency: Chronic Longstanding Last Used Substance: Just Prior to Admission Currently Displaying Signs/Symptoms of Drug Intoxication Withdrawal: No Any prior treatment program specific to substance use: Yes Have you been hit, kicked, punched, or otherwise hurt by someone within the past year? If so, by whom?: No Do you feel safe in your current relationship?: No Current Relationship Is there a partner from a previous relationship who is making you feel unsafe now?: No Are you made to feel afraid or neglected: No Advance Directives: No Advance Directives Information Provided: Yes Advance Directives on File: Yes Do you have thoughts of harming others: None Do you have a plan to hurt others: No Plan Recently lost weight without trying: No Eating poorly because of decreased appetite: No Nutrition Risks: No Nutritional Risk Patient : No : No Poor oral hygiene: Yes service: No Current occupational status: unemployed Meds Allergies Allergy/AdvReac Type Severity Reaction Status Date / Time prednisone [PREDNISONE] Allergy Unknown RASH Verified 09/24/21 11:47 Active Medications: Current Medications Acetaminophen (Acetaminophen 325 Mg Tablet) 650 mg PO Q6H PRN PRN Reason: Pain, Mild (Pain Scale 1-3) Last Admin: 10/11/21 17:39 Dose: 650 mg Documented by: Alprazolam (Alprazolam 0.5 Mg Tablet) 1 mg PO DAILY PRN PRN Reason: Anxiety Alprazolam (Alprazolam 0.5 Mg Tablet) 2 mg PO BID [facility] Last Admin: 10/11/21 21:48 Dose: 2 mg Documented by: Amlodipine Besylate (Amlodipine Besylate 10 Mg Tablet) 10 mg PO DAILY [facility]; Protocol Aspirin (Aspirin 81 Mg Tab.Chew) 81 mg PO DAILY [facility] Atorvastatin Calcium (Atorvastatin Calcium 40 Mg Tablet) 40 mg PO BEDTIME [facility] Last Admin: 10/11/21 21:48 Dose: 40 mg Documented by: Dextrose (Dextrose 50 % 25 Gm/50 Ml Vial) 25 gm IVPUSH Q15M PRN; Protocol PRN Reason: per Hypoglycemia Standing Ord. Gabapentin (Gabapentin 400 Mg Capsule) 400 mg PO QID [facility] Last Admin: 10/11/21 21:48 Dose: 400 mg Documented by: Glucose (Glucose Gel 15 Gm Gel..Gram.) 15 gm PO Q15M PRN; Protocol PRN Reason: per Hypoglycemia Standing Ord. Heparin Sodium (Porcine) (Heparin Sodium,Porcine 5,000 Unit/Ml Vial) 3,300 unit 40 unit/kg (3300 unit) IVPUSH PROTOCOL BOLUS PRN; Protocol PRN Reason: 40 unit/kg - Heparin Protocol Last Admin: 10/12/21 06:38 Dose: 3,300 unit Documented by: Heparin Sodium (Porcine) (Heparin Sodium,Porcine 5,000 Unit/Ml Vial) 6,600 unit 80 unit/kg (6600 unit) IVPUSH PROTOCOL BOLUS PRN; Protocol PRN Reason: 80 unit/kg - Heparin Protocol Vancomycin HCl 1,000 mg/ (Sodium Chloride) 270 mls @ 270 mls/hr IV Q24H [facility] Last Infusion: 10/11/21 19:01 Dose: Infused Documented by: Sodium Chloride (Ns) 1,000 mls @ 100 mls/hr IVCONT .Q10H [facility] Last Infusion: 10/12/21 00:52 Dose: 100 mls/hr Documented by: Heparin Sodium/Sodium Chloride () 25,000 unit in 250 mls @ 0 mls/hr IVCONT .Q0M [facility]; Protocol Last Titration: 10/12/21 06:48 Dose: 16 units/kg/hr, 13.25 mls/hr Documented by: Insulin Glargine (Insulin Glargine,Hum.Rec.Anlog 100 Unit/Ml 10 Ml Vial) 35 unit SUBCUT BEDTIME [facility] Last Admin: 10/11/21 21:50 Dose: 35 unit Documented by: Insulin Human Lispro (Insulin Lispro 100 Unit/Ml 3 Ml Vial) 0 unit SUBCUT QIDACHS [facility]; Protocol Last Admin: 10/11/21 21:45 Dose: Not Given Documented by: Lactic Acid (Ammonium Lactate 12 % Lotion 226 Gm Bottle) 1 appl TOPICAL BID [facility]; Protocol Last Admin: 10/11/21 22:13 Dose: Not Given Documented by: Ondansetron HCl (Ondansetron Hcl 4 Mg/2 Ml Vial) 4 mg IVPUSH Q8H PRN PRN Reason: Nausea and Vomiting Pharmacy Consult (Consult Rx Vancomycin Dosing) 1 each MISCELLANE DAILY PRN PRN Reason: Consult order Sertraline HCl (Sertraline Hcl 100 Mg Tablet) 100 mg PO BID [facility] Last Admin: 10/11/21 21:48 Dose: 100 mg Documented by: Sodium Chloride (0.9 % Sodium Chloride Flush 3 Ml Syringe) 3 ml IVFLUSH QSHIFT [facility] Last Admin: 10/12/21 00:15 Dose: Not Given Documented by: Home Medications Medication Instructions Recorded Confirmed Last Taken Type alprazolam 2 mg tablet 1 mg PO DAILY PRN 09/21/21 10/11/21 Unknown History alprazolam 2 mg tablet 2 mg PO BID 09/21/21 10/11/21 Unknown History gabapentin 400 mg capsule 400 mg PO QID 09/21/21 10/11/21 Unknown History insulin glargine 100 unit/mL (3 35 unit SUBCUT BEDTIME 09/21/21 10/11/21 Unknown History mL) subcutaneous pen (Lantus Solostar U-100 Insulin) sertraline 100 mg tablet 1 tab PO BID 09/21/21 10/11/21 Unknown History methadone 10 mg/mL oral concentrate 30 mg PO DAILY 10/12/21 10/12/21 Unknown History Physical Exam Vital Signs: Vital Signs: Last Vital Signs Temp 97.6 F 10/12/21 01:59 Pulse 73 10/12/21 06:08 Resp 12 10/12/21 06:08 BP 98/68 10/12/21 06:08 Pulse Ox 98 10/12/21 06:08 BMI result Body Mass Index 28.5 Const: General: comfortable and no acute distress Resp: Effort & Inspection: normal respiratory effort Cardio: Rhythm: regular rhythm GI: Palpation (GI): Soft to palpation and nontender Extrem: Other: Transmetatarsal amputation site dry, sutures intact, does not appear infected, has some dry scabbing, no cellulitis; big toe ulcer on the left also dry, about 1.7 cm in diameter, no cellulitis, no active drainage Results Labs Result diagrams: 10/12/21 04:19 10/13/21 05:24 Labs: Abnormal lab results 10/11/21 10/11/21 10/11/21 Range/Units 11:49 12:39 12:39 WBC 21.8 H (4.8-10.8) X10*3/uL RBC 3.47 L (4.20-5.50) X10*6/uL Hgb 9.1 L (12.0-16.0) g/dl Hct 30.1 L (37.0-47.0) % MCH 26.2 L (27.0-33.0) pg MCHC 30.2 L (31.0-35.0) g/dl Plt Count 440 H (160-400) X10*3/uL Immature Gran % (Auto) 0.8 H (0.0-0.4) % Neut % (Auto) 85.3 H (45-73) % Lymph % (Auto) 12.3 L (20-40) % [place] % (Auto) 1.1 L (2-11) % Abs Immat Gran (auto) 0.17 H (0.00-0.03) X10*3/uL Absolute Neuts (auto) 18.6 H (2.0-8.3) x10*3/uL PT (9.9-13.0) SEC INR (0.9-1.1) aPTT Heparin Protocol (53-77.9) SEC VBG pH (7.32-7.43) VBG HCO3 (22-26) mmol/L Chloride (96-108) mmol/L Carbon Dioxide 19 L (22-29) mmol/L Anion Gap 23 H (12-20) BUN 34 H D (9-16) mg/dL Creatinine 2.02 H (0.5-1.4) mg/dL POC Glucose 328 H (60-115) mg/dL Random Glucose 333 H (60-115) mg/dL Lactic Acid (0.5-2.0) mmol/L Alkaline Phosphatase 125 H D (39-117) U/L Troponin I High Sens (<3.5-17.0) ng/L Total Protein 8.7 H D (6.5-8.0) g/dL TSH (0.32-4.0) uIU/mL Urine Protein (NEG-TRACE) MG/DL Salicylates < 5.0 L (15-30) mg/dL Urine Opiates Screen (Not Detect) Urine Fentanyl Screen (Not Detect) U Benzodiazepines Scrn (Not Detect) 10/11/21 10/11/21 10/11/21 Range/Units 12:39 12:39 12:39 WBC (4.8-10.8) X10*3/uL RBC (4.20-5.50) X10*6/uL Hgb (12.0-16.0) g/dl Hct (37.0-47.0) % MCH (27.0-33.0) pg MCHC (31.0-35.0) g/dl Plt Count (160-400) X10*3/uL Immature Gran % (Auto) (0.0-0.4) % Neut % (Auto) (45-73) % Lymph % (Auto) (20-40) % [place] % (Auto) (2-11) % Abs Immat Gran (auto) (0.00-0.03) X10*3/uL Absolute Neuts (auto) (2.0-8.3) x10*3/uL PT (9.9-13.0) SEC INR (0.9-1.1) aPTT Heparin Protocol (53-77.9) SEC VBG pH (7.32-7.43) VBG HCO3 (22-26) mmol/L Chloride (96-108) mmol/L Carbon Dioxide (22-29) mmol/L Anion Gap (12-20) BUN (9-16) mg/dL Creatinine (0.5-1.4) mg/dL POC Glucose (60-115) mg/dL Random Glucose (60-115) mg/dL Lactic Acid 4.9 H* (0.5-2.0) mmol/L Alkaline Phosphatase (39-117) U/L Troponin I High Sens 212.7 H* (<3.5-17.0) ng/L Total Protein (6.5-8.0) g/dL TSH 5.93 H (0.32-4.0) uIU/mL Urine Protein (NEG-TRACE) MG/DL Salicylates (15-30) mg/dL Urine Opiates Screen (Not Detect) Urine Fentanyl Screen (Not Detect) U Benzodiazepines Scrn (Not Detect) 10/11/21 10/11/21 10/11/21 Range/Units 12:40 12:44 13:27 WBC (4.8-10.8) X10*3/uL RBC (4.20-5.50) X10*6/uL Hgb (12.0-16.0) g/dl Hct (37.0-47.0) % MCH (27.0-33.0) pg MCHC (31.0-35.0) g/dl Plt Count (160-400) X10*3/uL Immature Gran % (Auto) (0.0-0.4) % Neut % (Auto) (45-73) % Lymph % (Auto) (20-40) % [place] % (Auto) (2-11) % Abs Immat Gran (auto) (0.00-0.03) X10*3/uL Absolute Neuts (auto) (2.0-8.3) x10*3/uL PT 13.2 H (9.9-13.0) SEC INR 1.2 H (0.9-1.1) aPTT Heparin Protocol (53-77.9) SEC VBG pH 7.27 L (7.32-7.43) VBG HCO3 19 L (22-26) mmol/L Chloride (96-108) mmol/L Carbon Dioxide (22-29) mmol/L Anion Gap (12-20) BUN (9-16) mg/dL Creatinine (0.5-1.4) mg/dL POC Glucose 195 H (60-115) mg/dL Random Glucose (60-115) mg/dL Lactic Acid (0.5-2.0) mmol/L Alkaline Phosphatase (39-117) U/L Troponin I High Sens (<3.5-17.0) ng/L Total Protein (6.5-8.0) g/dL TSH (0.32-4.0) uIU/mL Urine Protein (NEG-TRACE) MG/DL Salicylates (15-30) mg/dL Urine Opiates Screen (Not Detect) Urine Fentanyl Screen (Not Detect) U Benzodiazepines Scrn (Not Detect) 10/11/21 10/11/21 10/11/21 Range/Units 16:48 17:03 17:03 WBC (4.8-10.8) X10*3/uL RBC (4.20-5.50) X10*6/uL Hgb (12.0-16.0) g/dl Hct (37.0-47.0) % MCH (27.0-33.0) pg MCHC (31.0-35.0) g/dl Plt Count (160-400) X10*3/uL Immature Gran % (Auto) (0.0-0.4) % Neut % (Auto) (45-73) % Lymph % (Auto) (20-40) % [place] % (Auto) (2-11) % Abs Immat Gran (auto) (0.00-0.03) X10*3/uL Absolute Neuts (auto) (2.0-8.3) x10*3/uL PT (9.9-13.0) SEC INR (0.9-1.1) aPTT Heparin Protocol (53-77.9) SEC VBG pH (7.32-7.43) VBG HCO3 (22-26) mmol/L Chloride (96-108) mmol/L Carbon Dioxide (22-29) mmol/L Anion Gap (12-20) BUN (9-16) mg/dL Creatinine (0.5-1.4) mg/dL POC Glucose (60-115) mg/dL Random Glucose (60-115) mg/dL Lactic Acid (0.5-2.0) mmol/L Alkaline Phosphatase (39-117) U/L Troponin I High Sens 1550.8 H* D (<3.5-17.0) ng/L Total Protein (6.5-8.0) g/dL TSH (0.32-4.0) uIU/mL Urine Protein 1+ H (NEG-TRACE) MG/DL Salicylates (15-30) mg/dL Urine Opiates Screen POSITIVE H (Not Detect) Urine Fentanyl Screen POSITIVE H (Not Detect) U Benzodiazepines Scrn POSITIVE H (Not Detect) 10/11/21 10/11/21 10/12/21 Range/Units 17:28 20:57 04:19 WBC (4.8-10.8) X10*3/uL RBC (4.20-5.50) X10*6/uL Hgb (12.0-16.0) g/dl Hct (37.0-47.0) % MCH (27.0-33.0) pg MCHC (31.0-35.0) g/dl Plt Count (160-400) X10*3/uL Immature Gran % (Auto) (0.0-0.4) % Neut % (Auto) (45-73) % Lymph % (Auto) (20-40) % [place] % (Auto) (2-11) % Abs Immat Gran (auto) (0.00-0.03) X10*3/uL Absolute Neuts (auto) (2.0-8.3) x10*3/uL PT 15.2 H (9.9-13.0) SEC INR 1.3 H (0.9-1.1) aPTT Heparin Protocol 33.8 L > 200.0 H* D (53-77.9) SEC VBG pH (7.32-7.43) VBG HCO3 (22-26) mmol/L Chloride (96-108) mmol/L Carbon Dioxide (22-29) mmol/L Anion Gap (12-20) BUN (9-16) mg/dL Creatinine (0.5-1.4) mg/dL POC Glucose 164 H (60-115) mg/dL Random Glucose (60-115) mg/dL Lactic Acid (0.5-2.0) mmol/L Alkaline Phosphatase (39-117) U/L Troponin I High Sens (<3.5-17.0) ng/L Total Protein (6.5-8.0) g/dL TSH (0.32-4.0) uIU/mL Urine Protein (NEG-TRACE) MG/DL Salicylates (15-30) mg/dL Urine Opiates Screen (Not Detect) Urine Fentanyl Screen (Not Detect) U Benzodiazepines Scrn (Not Detect) 10/12/21 10/12/21 10/12/21 Range/Units 04:19 04:19 04:19 WBC (4.8-10.8) X10*3/uL RBC 2.91 L (4.20-5.50) X10*6/uL Hgb 7.7 L (12.0-16.0) g/dl Hct 25.0 L (37.0-47.0) % MCH 26.5 L (27.0-33.0) pg MCHC 30.8 L (31.0-35.0) g/dl Plt Count (160-400) X10*3/uL Immature Gran % (Auto) 1.0 H (0.0-0.4) % Neut % (Auto) (45-73) % Lymph % (Auto) (20-40) % [place] % (Auto) (2-11) % Abs Immat Gran (auto) 0.09 H (0.00-0.03) X10*3/uL Absolute Neuts (auto) (2.0-8.3) x10*3/uL PT (9.9-13.0) SEC INR (0.9-1.1) aPTT Heparin Protocol (53-77.9) SEC VBG pH (7.32-7.43) VBG HCO3 (22-26) mmol/L Chloride 109 H (96-108) mmol/L Carbon Dioxide (22-29) mmol/L Anion Gap (12-20) BUN 29 H (9-16) mg/dL Creatinine (0.5-1.4) mg/dL POC Glucose (60-115) mg/dL Random Glucose (60-115) mg/dL Lactic Acid (0.5-2.0) mmol/L Alkaline Phosphatase (39-117) U/L Troponin I High Sens 1480.1 H* (<3.5-17.0) ng/L Total Protein (6.5-8.0) g/dL TSH (0.32-4.0) uIU/mL Urine Protein (NEG-TRACE) MG/DL Salicylates (15-30) mg/dL Urine Opiates Screen (Not Detect) Urine Fentanyl Screen (Not Detect) U Benzodiazepines Scrn (Not Detect) 10/12/21 10/12/21 Range/Units 05:26 08:30 WBC (4.8-10.8) X10*3/uL RBC (4.20-5.50) X10*6/uL Hgb (12.0-16.0) g/dl Hct (37.0-47.0) % MCH (27.0-33.0) pg MCHC (31.0-35.0) g/dl Plt Count (160-400) X10*3/uL Immature Gran % (Auto) (0.0-0.4) % Neut % (Auto) (45-73) % Lymph % (Auto) (20-40) % [place] % (Auto) (2-11) % Abs Immat Gran (auto) (0.00-0.03) X10*3/uL Absolute Neuts (auto) (2.0-8.3) x10*3/uL PT (9.9-13.0) SEC INR (0.9-1.1) aPTT Heparin Protocol 39.4 L D 45.7 L (53-77.9) SEC VBG pH (7.32-7.43) VBG HCO3 (22-26) mmol/L Chloride (96-108) mmol/L Carbon Dioxide (22-29) mmol/L Anion Gap (12-20) BUN (9-16) mg/dL Creatinine (0.5-1.4) mg/dL POC Glucose (60-115) mg/dL Random Glucose (60-115) mg/dL Lactic Acid (0.5-2.0) mmol/L Alkaline Phosphatase (39-117) U/L Troponin I High Sens (<3.5-17.0) ng/L Total Protein (6.5-8.0) g/dL TSH (0.32-4.0) uIU/mL Urine Protein (NEG-TRACE) MG/DL Salicylates (15-30) mg/dL Urine Opiates Screen (Not Detect) Urine Fentanyl Screen (Not Detect) U Benzodiazepines Scrn (Not Detect) Short CBC 10/11/21 10/12/21 Range/Units 12:39 04:19 WBC 21.8 H 9.1 (4.8-10.8) X10*3/uL Hgb 9.1 L 7.7 L (12.0-16.0) g/dl Hct 30.1 L 25.0 L (37.0-47.0) % Plt Count 440 H 284 D (160-400) X10*3/uL BMP 10/11/21 10/12/21 12:39 04:19 Sodium 139 140 Potassium 4.9 D 3.7 D Chloride 102 109 H Carbon Dioxide 19 L 23 BUN 34 H D 29 H Creatinine 2.02 H 1.40 Calcium 9.5 8.4 D Liver Function 10/11/21 Range/Units 12:39 Total Bilirubin 0.3 (0.0-1.0) mg/dL Direct Bilirubin 0.2 (0.0-0.5) mg/dL AST 27 D (5-31) U/L ALT 15 (0-31) U/L Alkaline Phosphatase 125 H D (39-117) U/L Albumin 3.8 D (3.5-5.0) g/dL Urine 10/11/21 Range/Units 17:03 Urine Color YELLOW Urine Appearance CLEAR Urine pH 6.0 (5.0-8.0) Ur Specific [place] 1.025 (1.005-1.025) Urine Protein 1+ H (NEG-TRACE) MG/DL Urine Glucose (UA) NEG (NEG) MG/DL All other labs normal. Assessment and Plan (1) Overdose: Status: Acute Status post TMA, Right foot. The TMA stump appears dry and does not look infected. There is no pus and there is no cellulitis. The ulcer on the left big toe also appears dry and does not have any surrounding cellulitis or purulent drainage. There does not appear to be any active sinus. Current exam does not suggest active infection of either the TMA site nor the left big toe. I plan on removing her sutures from the may site prior to her be ing discharged. This will be also clean was of the presence of some dry scabbing. I have discussed this with the wound care nurse, Kimber. I will follow along while she is in the hospital. Procedures Date of Service Date of Service: 10/12/21
--- NOTE | 2021-10-12 08:56 | PC.NURSE ---
At 7am pt was asleep. skin pale warm dry. ST on monitor. heparin running at 16 u/kg/hr. Bedside report recieved from Arnoldo SAUCEDO. Currently pt is awake after echo. crying, on phone. states she wants to go to rehab for opiate use. ST on monitor. most recent PTT draw was unecessary. Next is at 1130. Pt denies CP at this time. Wound care at bedside for EDILIA toe amputations.
[2021-10-12] MEDS: 0.9 % Sodium Chloride 1,000 ML 100 ML IVCONT ×2 (09:05→21:44)
--- NOTE | 2021-10-12 09:24 | PC.NURSE ---
Skin/wound assessment completed today. Patient has a right TMA with sutures inplace with dried red skin. Xeroform applied covered with gauze and roll gauze. Patient has a diabetic ulcer to left great toe-Woundres gel applied to wound bed covered with gauze and roll gauze. No other skin issues noted at this time.
--- NOTE | 2021-10-12 09:33 | HO.PM.IMPN ---
Subjective Subjective Date of Service: 10/12/21 Review of Systems Follow up OD, NSTEMI Felling ok today, no chest pain Physical Exam Vital Signs: Vital Signs: Last Vital Signs Temp 97.6 F 10/12/21 01:59 Pulse 73 10/12/21 06:08 Resp 12 10/12/21 06:08 BP 98/68 10/12/21 06:08 Pulse Ox 98 10/12/21 06:08 BMI result Body Mass Index 28.5 Appearing in no acute distress lung sounds are clear to auscultation heart regular rate rhythm, clear S1, S2 positive bowel sounds, abdomen is soft, nontender neuro patient is alert x3, no focal deficits Objective Data Active Medications Acetaminophen (Acetaminophen 325 Mg Tablet) 650 mg PO Q6H PRN PRN Reason: Pain, Mild (Pain Scale 1-3) Last Admin: 10/11/21 17:39 Dose: 650 mg Documented by: LUCILLE Alprazolam (Alprazolam 0.5 Mg Tablet) 1 mg PO DAILY PRN PRN Reason: Anxiety Alprazolam (Alprazolam 0.5 Mg Tablet) 2 mg PO BID [facility] Last Admin: 10/11/21 21:48 Dose: 2 mg Documented by: MYKE Amlodipine Besylate (Amlodipine Besylate 10 Mg Tablet) 10 mg PO DAILY [facility]; Protocol Aspirin (Aspirin 81 Mg Tab.Chew) 81 mg PO DAILY [facility] Atorvastatin Calcium (Atorvastatin Calcium 40 Mg Tablet) 40 mg PO BEDTIME [facility] Last Admin: 10/11/21 21:48 Dose: 40 mg Documented by: MYKE Dextrose (Dextrose 50 % 25 Gm/50 Ml Vial) 25 gm IVPUSH Q15M PRN; Protocol PRN Reason: per Hypoglycemia Standing Ord. Gabapentin (Gabapentin 400 Mg Capsule) 400 mg PO QID [facility] Last Admin: 10/11/21 21:48 Dose: 400 mg Documented by: MYKE Glucose (Glucose Gel 15 Gm Gel..Gram.) 15 gm PO Q15M PRN; Protocol PRN Reason: per Hypoglycemia Standing Ord. Heparin Sodium (Porcine) (Heparin Sodium,Porcine 5,000 Unit/Ml Vial) 3,300 unit 40 unit/kg (3300 unit) IVPUSH PROTOCOL BOLUS PRN; Protocol PRN Reason: 40 unit/kg - Heparin Protocol Last Admin: 10/12/21 06:38 Dose: 3,300 unit Documented by: MYKE Heparin Sodium (Porcine) (Heparin Sodium,Porcine 5,000 Unit/Ml Vial) 6,600 unit 80 unit/kg (6600 unit) IVPUSH PROTOCOL BOLUS PRN; Protocol PRN Reason: 80 unit/kg - Heparin Protocol Vancomycin HCl 1,000 mg/ (Sodium Chloride) 270 mls @ 270 mls/hr IV Q24H [facility] Last Infusion: 10/11/21 19:01 Dose: 0 mls/hr Documented by: LUCILLE Sodium Chloride (Ns) 1,000 mls @ 100 mls/hr IVCONT .Q10H DADA Last Admin: 10/12/21 09:05 Dose: 100 mls/hr Documented by: ENID Heparin Sodium/Sodium Chloride () 25,000 unit in 250 mls @ 0 mls/hr IVCONT .Q0M [facility]; Protocol Last Titration: 10/12/21 06:48 Dose: 16 units/kg/hr, 13.25 mls/hr Documented by: MYKE Cosigned by: VIJI Insulin Glargine (Insulin Glargine,Hum.Rec.Anlog 100 Unit/Ml 10 Ml Vial) 35 unit SUBCUT BEDTIME [facility] Last Admin: 10/11/21 21:50 Dose: 35 unit Documented by: MYKE Insulin Human Lispro (Insulin Lispro 100 Unit/Ml 3 Ml Vial) 0 unit SUBCUT QIDACHS [facility]; Protocol Last Admin: 10/12/21 09:11 Dose: Not Given Documented by: ENID Non-Admin Reason: No Insulin Coverage Lactic Acid (Ammonium Lactate 12 % Lotion 226 Gm Bottle) 1 appl TOPICAL BID [facility]; Protocol Last Admin: 10/11/21 22:13 Dose: Not Given Documented by: MYKE Non-Admin Reason: Med Not Available Methadone HCl (Methadone Hcl 20 Mg/2 Ml Oral.Conc) 30 mg PO DAILY [facility] Ondansetron HCl (Ondansetron Hcl 4 Mg/2 Ml Vial) 4 mg IVPUSH Q8H PRN PRN Reason: Nausea and Vomiting Pharmacy Consult (Consult Rx Vancomycin Dosing) 1 each MISCELLANE DAILY PRN PRN Reason: Consult order Sertraline HCl (Sertraline Hcl 100 Mg Tablet) 100 mg PO BID [facility] Last Admin: 03/07/22 21:48 Dose: 100 mg Documented by: MYKE Sodium Chloride (0.9 % Sodium Chloride Flush 3 Ml Syringe) 3 ml IVFLUSH QSHIFT [facility] Last Admin: 10/12/21 09:02 Dose: Not Given Documented by: ENID Non-Admin Reason: Med Not Available Labs CBC & Chem 7: 10/12/21 04:19 10/12/21 04:19 Labs: Laboratory Results - last 24 hr 10/11/21 10/11/21 10/11/21 11:49 12:39 12:39 MCV 86.7 MCH 26.2 L MCHC 30.2 L RDW 15.1 Plt Count 440 H MPV 9.5 Immature Gran % (Auto) 0.8 H Neut % (Auto) 85.3 H Lymph % (Auto) 12.3 L [place] % (Auto) 1.1 L Eos % (Auto) 0.1 Baso % (Auto) 0.4 Lymph # (Auto) 2.7 [place] # (Auto) 0.3 Eos # (Auto) 0.0 Baso # (Auto) 0.1 Abs Immat Gran (auto) 0.17 H Absolute Neuts (auto) 18.6 H Absolute Nucleated RBC 0.000 Nucleated RBC % (auto) 0.0 PT INR aPTT Heparin Protocol VBG pH VBG pCO2 VBG pO2 VBG HCO3 VBG O2 Saturation VBG Base Excess Anion Gap 23 H Estim Creat Clear Calc 35.5 Estimated GFR 26 POC Glucose 328 H Random Glucose 333 H Lactic Acid Lactic Acid F/U @ 2Hr Calcium 9.5 Magnesium 2.2 Total Bilirubin 0.3 Direct Bilirubin 0.2 AST 27 D ALT 15 Alkaline Phosphatase 125 H D Ammonia B-Natriuretic Peptide Total Protein 8.7 H D Albumin 3.8 D TSH Free T4 Urine Color Urine Appearance Urine pH Ur Specific [place] Urine Protein Urine Glucose (UA) Urine Ketones Urine Blood Urine Nitrite Ur Leukocyte Esterase Urine RBC Urine WBC Ur Squamous Epith Cells Amorphous Sediment Urine Bacteria Hyaline Casts Granular Casts Salicylates < 5.0 L Urine Opiates Screen Urine Fentanyl Screen Acetaminophen < 1 Ur Barbiturates Screen Ur Phencyclidine Scrn Ur Amphetamines Screen U Benzodiazepines Scrn Urine Cocaine Screen U Marijuana (THC) Screen Ethyl Alcohol Acetone, Qual COVID-19 (EUSEBIO) COVID-19 Clin Com 10/11/21 10/11/21 10/11/21 12:39 12:39 12:39 MCV MCH MCHC RDW Plt Count MPV Immature Gran % (Auto) Neut % (Auto) Lymph % (Auto) [place] % (Auto) Eos % (Auto) Baso % (Auto) Lymph # (Auto) [place] # (Auto) Eos # (Auto) Baso # (Auto) Abs Immat Gran (auto) Absolute Neuts (auto) Absolute Nucleated RBC Nucleated RBC % (auto) PT INR aPTT Heparin Protocol VBG pH VBG pCO2 VBG pO2 VBG HCO3 VBG O2 Saturation VBG Base Excess Anion Gap Estim Creat Clear Calc Estimated GFR POC Glucose Random Glucose Lactic Acid 4.9 H* Lactic Acid F/U @ 2Hr Calcium Magnesium Total Bilirubin Direct Bilirubin AST ALT Alkaline Phosphatase Ammonia Cancelled B-Natriuretic Peptide 75 Total Protein Albumin TSH Free T4 Urine Color Urine Appearance Urine pH Ur Specific [place] Urine Protein Urine Glucose (UA) Urine Ketones Urine Blood Urine Nitrite Ur Leukocyte Esterase Urine RBC Urine WBC Ur Squamous Epith Cells Amorphous Sediment Urine Bacteria Hyaline Casts Granular Casts Salicylates Urine Opiates Screen Urine Fentanyl Screen Acetaminophen Ur Barbiturates Screen Ur Phencyclidine Scrn Ur Amphetamines Screen U Benzodiazepines Scrn Urine Cocaine Screen U Marijuana (THC) Screen Ethyl Alcohol Acetone, Qual COVID-19 (EUSEBIO) COVID-19 Clin Com 10/11/21 10/11/21 10/11/21 12:39 12:39 12:40 MCV MCH MCHC RDW Plt Count MPV Immature Gran % (Auto) Neut % (Auto) Lymph % (Auto) [place] % (Auto) Eos % (Auto) Baso % (Auto) Lymph # (Auto) [place] # (Auto) Eos # (Auto) Baso # (Auto) Abs Immat Gran (auto) Absolute Neuts (auto) Absolute Nucleated RBC Nucleated RBC % (auto) PT 13.2 H INR 1.2 H aPTT Heparin Protocol VBG pH VBG pCO2 VBG pO2 VBG HCO3 VBG O2 Saturation VBG Base Excess Anion Gap Estim Creat Clear Calc Estimated GFR POC Glucose Random Glucose Lactic Acid Lactic Acid F/U @ 2Hr Calcium Magnesium Total Bilirubin Direct Bilirubin AST ALT Alkaline Phosphatase Ammonia B-Natriuretic Peptide Total Protein Albumin TSH 5.93 H Free T4 1.00 Urine Color Urine Appearance Urine pH Ur Specific [place] Urine Protein Urine Glucose (UA) Urine Ketones Urine Blood Urine Nitrite Ur Leukocyte Esterase Urine RBC Urine WBC Ur Squamous Epith Cells Amorphous Sediment Urine Bacteria Hyaline Casts Granular Casts Salicylates Urine Opiates Screen Urine Fentanyl Screen Acetaminophen Ur Barbiturates Screen Ur Phencyclidine Scrn Ur Amphetamines Screen U Benzodiazepines Scrn Urine Cocaine Screen U Marijuana (THC) Screen Ethyl Alcohol < 10 Acetone, Qual Negative COVID-19 (EUSEBIO) COVID-19 Clin Com 10/11/21 10/11/21 10/11/21 12:40 12:44 13:27 MCV MCH MCHC RDW Plt Count MPV Immature Gran % (Auto) Neut % (Auto) Lymph % (Auto) [place] % (Auto) Eos % (Auto) Baso % (Auto) Lymph # (Auto) [place] # (Auto) Eos # (Auto) Baso # (Auto) Abs Immat Gran (auto) Absolute Neuts (auto) Absolute Nucleated RBC Nucleated RBC % (auto) PT INR aPTT Heparin Protocol VBG pH 7.27 L VBG pCO2 41 VBG pO2 40 VBG HCO3 19 L VBG O2 Saturation 55.0 VBG Base Excess -6.5 Anion Gap Estim Creat Clear Calc Estimated GFR POC Glucose 195 H Random Glucose Lactic Acid Lactic Acid F/U @ 2Hr Calcium Magnesium Total Bilirubin Direct Bilirubin AST ALT Alkaline Phosphatase Ammonia B-Natriuretic Peptide Total Protein Albumin TSH Free T4 Urine Color Urine Appearance Urine pH Ur Specific [place] Urine Protein Urine Glucose (UA) Urine Ketones Urine Blood Urine Nitrite Ur Leukocyte Esterase Urine RBC Urine WBC Ur Squamous Epith Cells Amorphous Sediment Urine Bacteria Hyaline Casts Granular Casts Salicylates Urine Opiates Screen Urine Fentanyl Screen Acetaminophen Ur Barbiturates Screen Ur Phencyclidine Scrn Ur Amphetamines Screen U Benzodiazepines Scrn Urine Cocaine Screen U Marijuana (THC) Screen Ethyl Alcohol Acetone, Qual COVID-19 (EUSEBIO) Negative COVID-19 Clin Com See Note 10/11/21 10/11/21 10/11/21 16:48 17:03 17:03 MCV MCH MCHC RDW Plt Count MPV Immature Gran % (Auto) Neut % (Auto) Lymph % (Auto) [place] % (Auto) Eos % (Auto) Baso % (Auto) Lymph # (Auto) [place] # (Auto) Eos # (Auto) Baso # (Auto) Abs Immat Gran (auto) Absolute Neuts (auto) Absolute Nucleated RBC Nucleated RBC % (auto) PT INR aPTT Heparin Protocol VBG pH VBG pCO2 VBG pO2 VBG HCO3 VBG O2 Saturation VBG Base Excess Anion Gap Estim Creat Clear Calc Estimated GFR POC Glucose Random Glucose Lactic Acid 1.6 Lactic Acid F/U @ 2Hr Calcium Magnesium Total Bilirubin Direct Bilirubin AST ALT Alkaline Phosphatase Ammonia B-Natriuretic Peptide Total Protein Albumin TSH Free T4 Urine Color YELLOW Urine Appearance CLEAR Urine pH 6.0 Ur Specific [place] 1.025 Urine Protein 1+ H Urine Glucose (UA) NEG Urine Ketones NEG Urine Blood TRACE Urine Nitrite NEG Ur Leukocyte Esterase NEG Urine RBC 1-4 Urine WBC 1-4 Ur Squamous Epith Cells 1+ Amorphous Sediment TRACE Urine Bacteria NONE Hyaline Casts 0-2 Granular Casts 0-2 Salicylates Urine Opiates Screen POSITIVE H Urine Fentanyl Screen POSITIVE H Acetaminophen Ur Barbiturates Screen Not Detected Ur Phencyclidine Scrn Not Detected Ur Amphetamines Screen Not Detected U Benzodiazepines Scrn POSITIVE H Urine Cocaine Screen Not Detected U Marijuana (THC) Screen Not Detected Ethyl Alcohol Acetone, Qual COVID-19 (EUSEBIO) COVID-19 [employer] 10/11/21 10/11/21 10/11/21 17:28 18:20 20:57 MCV MCH MCHC RDW Plt Count MPV Immature Gran % (Auto) Neut % (Auto) Lymph % (Auto) [place] % (Auto) Eos % (Auto) Baso % (Auto) Lymph # (Auto) [place] # (Auto) Eos # (Auto) Baso # (Auto) Abs Immat Gran (auto) Absolute Neuts (auto) Absolute Nucleated RBC Nucleated RBC % (auto) PT INR aPTT Heparin Protocol 33.8 L VBG pH VBG pCO2 VBG pO2 VBG HCO3 VBG O2 Saturation VBG Base Excess Anion Gap Estim Creat Clear Calc Estimated GFR POC Glucose 164 H Random Glucose Lactic Acid Lactic Acid F/U @ 2Hr 1.2 Calcium Magnesium Total Bilirubin Direct Bilirubin AST ALT Alkaline Phosphatase Ammonia B-Natriuretic Peptide Total Protein Albumin TSH Free T4 Urine Color Urine Appearance Urine pH Ur Specific [place] Urine Protein Urine Glucose (UA) Urine Ketones Urine Blood Urine Nitrite Ur Leukocyte Esterase Urine RBC Urine WBC Ur Squamous Epith Cells Amorphous Sediment Urine Bacteria Hyaline Casts Granular Casts Salicylates Urine Opiates Screen Urine Fentanyl Screen Acetaminophen Ur Barbiturates Screen Ur Phencyclidine Scrn Ur Amphetamines Screen U Benzodiazepines Scrn Urine Cocaine Screen U Marijuana (THC) Screen Ethyl Alcohol Acetone, Qual COVID-19 (EUSEBIO) COVID-19 [employer] 10/11/21 10/12/21 10/12/21 21:17 04:19 04:19 MCV 85.9 MCH 26.5 L MCHC 30.8 L RDW 15.4 Plt Count 284 D MPV 9.4 Immature Gran % (Auto) 1.0 H Neut % (Auto) 56.8 Lymph % (Auto) 34.3 [place] % (Auto) 5.6 Eos % (Auto) 1.5 Baso % (Auto) 0.8 Lymph # (Auto) 3.1 [place] # (Auto) 0.5 Eos # (Auto) 0.1 Baso # (Auto) 0.1 Abs Immat Gran (auto) 0.09 H Absolute Neuts (auto) 5.2 Absolute Nucleated RBC 0.000 Nucleated RBC % (auto) 0.0 PT 15.2 H INR 1.3 H aPTT Heparin Protocol > 200.0 H* D VBG pH VBG pCO2 VBG pO2 VBG HCO3 VBG O2 Saturation VBG Base Excess Anion Gap Estim Creat Clear Calc Estimated GFR POC Glucose 111 Random Glucose Lactic Acid Lactic Acid F/U @ 2Hr Calcium Magnesium Total Bilirubin Direct Bilirubin AST ALT Alkaline Phosphatase Ammonia B-Natriuretic Peptide Total Protein Albumin TSH Free T4 Urine Color Urine Appearance Urine pH Ur Specific [place] Urine Protein Urine Glucose (UA) Urine Ketones Urine Blood Urine Nitrite Ur Leukocyte Esterase Urine RBC Urine WBC Ur Squamous Epith Cells Amorphous Sediment Urine Bacteria Hyaline Casts Granular Casts Salicylates Urine Opiates Screen Urine Fentanyl Screen Acetaminophen Ur Barbiturates Screen Ur Phencyclidine Scrn Ur Amphetamines Screen U Benzodiazepines Scrn Urine Cocaine Screen U Marijuana (THC) Screen Ethyl Alcohol Acetone, Qual COVID-19 (EUSEBIO) COVID-19 Clin Com 10/12/21 10/12/21 10/12/21 04:19 05:26 08:30 MCV MCH MCHC RDW Plt Count MPV Immature Gran % (Auto) Neut % (Auto) Lymph % (Auto) [place] % (Auto) Eos % (Auto) Baso % (Auto) Lymph # (Auto) [place] # (Auto) Eos # (Auto) Baso # (Auto) Abs Immat Gran (auto) Absolute Neuts (auto) Absolute Nucleated RBC Nucleated RBC % (auto) PT INR aPTT Heparin Protocol 39.4 L D 45.7 L VBG pH VBG pCO2 VBG pO2 VBG HCO3 VBG O2 Saturation VBG Base Excess Anion Gap 12 Estim Creat Clear Calc 52.5 Estimated GFR 40 POC Glucose Random Glucose 112 Lactic Acid Lactic Acid F/U @ 2Hr Calcium 8.4 D Magnesium Total Bilirubin Direct Bilirubin AST ALT Alkaline Phosphatase Ammonia B-Natriuretic Peptide Total Protein Albumin TSH Free T4 Urine Color Urine Appearance Urine pH Ur Specific [place] Urine Protein Urine Glucose (UA) Urine Ketones Urine Blood Urine Nitrite Ur Leukocyte Esterase Urine RBC Urine WBC Ur Squamous Epith Cells Amorphous Sediment Urine Bacteria Hyaline Casts Granular Casts Salicylates Urine Opiates Screen Urine Fentanyl Screen Acetaminophen Ur Barbiturates Screen Ur Phencyclidine Scrn Ur Amphetamines Screen U Benzodiazepines Scrn Urine Cocaine Screen U Marijuana (THC) Screen Ethyl Alcohol Acetone, Qual COVID-19 (EUSEBIO) COVID-19 Clin Com Assessment and Plan (1) Status post transmetatarsal amputation of right foot: (2) MRSA bacteremia: Status: Acute (3) Opioid use disorder: Status: Acute Plan 51 year old women admitted after an overdose. She was recently admitted for osteomyelitis and s/p right foot TMA. NSTEMI, secondary WA from sepsis, infection Troponin trending down No chest pain no ischemic changes on EKG, although shows RBBB Likely secondary to OD and hypoxia consult cardiology Echocardiogram pending Severe sepsis secondary to acute on chronic osteomyelitis Tachycardia, tachypnea, leukocytosis, lactic acidosis Was not taking zyvox at home only levaquin Start Vancomycin Follow blood cx repeat Left foot xray shows the change from previous ID consult Overdose Patient denies but was found gasping for air by family, s/p narcan Addiction consult continue methadone Acute hypoxic respiratory failure secondary to overdose no aspiration noted on cxr requiring 2 liters of oxygen at this time, resolving BERNABE.? No clear etiology, trending down Will hold lisinopril Renally dosed vancomycin IV fluids Status post TMA Wound care nurse consult Lac-Hydrin for dry skin Gen surg following no debridement required Diabetes ss, ada diet lantus Hypertension.? stable Hold antihypertensives to avoid hypotension in light of sepsis Mental health continue home medications DVT prophylaxis with heparin Attending Dr. Liz Full code Quality Stroke Does the patient have a stroke diagnosis?: No VTE Prior VTE?: No VTE Risk Level:: Medical - moderate - high VTE Device Contraindication: Treatment Not Indicated VTE Drug Contraindication: N/A - Med Ordered
--- NOTE | 2021-10-12 09:34 | PHA.PROG ---
Admission Date/Time: October 11, 2021 16:45 Indication: Severe Sepsis due Chronic Osteomylitis Weight in k.8 kg Adjusted body weight in K.6 kg [place] body weight in K.6 kg Obesity Dosing Indication % IBW: 134 % Serum Creatinine - Last 168 Hours 10/11/21 10/12/21 12:39 04:19 Creatinine 2.02 H 1.40 Estimated CrCl and GFR - Last 168 Hours 10/11/21 10/12/21 12:39 04:19 Estim Creat Clear Calc 35.5 52.5 Estimated GFR 26 40 Vancomycin Loading Dose: n/a Current Vancomycin Dosing Regimen: 1000 MG Q24H Date and Time for next Vancomycin Level to be drawn: 10/13 @ 1600 Pharmacist Comments on Vancomycin Plan: Patient's renal function is improving. Patient weight was updated and increased by 10 kg. This puts patient > 120% IBW therefore obesity dosing should be used. Continue current regiemn has an expected AUC of 476 with a trough of 13.5 Patient will most likely not be theraputic prior to 3rd dose because an adequate loading dose was not given for her weight. Pharmacy will continue to monitor renal function Marlin Monterroso PharmD Vancomycin dosing will take advantage of Fuzz as a clinical decision support tool that uses Bayesian modeling to calculate individual patient's pharmacokinetic parameters and forecast the patient's drug concentration time course with the target goal AUC 24 range of 400 - 600 mg/L/hr.
--- NOTE | 2021-10-12 09:34 | PC.NURSE ---
RN to RN with Chencho on IMC.
[2021-10-12 09:39] LABS: Troponin-I High Sensitivity 859.7 ng/L (<3.5-17.0)
[2021-10-12] MEDS: methADONE HCl 20 MG/2 ML ORAL.CONC 30 MG PO (09:43)
[2021-10-12] MEDS: ALPRAZolam 0.5 MG TABLET 2 MG PO ×2 (09:44→21:42)
[2021-10-12] MEDS: Aspirin 81 MG TAB.CHEW PO (09:44)
[2021-10-12] MEDS: Gabapentin 400 MG CAPSULE PO ×4 (09:45→21:43)
[2021-10-12 09:53] LABS: Glucose, Whole Blood 136 mg/dL (60-115)
[2021-10-12 11:57] LABS: Glucose, Whole Blood 148 mg/dL (60-115)
[2021-10-12 12:17] LABS: PTT Heparin Drip 33.9 SEC (53-77.9)
--- NOTE | 2021-10-12 12:20 | MHC.CLN ---
RECOMMEND 1800DM DIET R/T DM
--- NOTE | 2021-10-12 12:30 | CA_ITS ---
Transthoracic Echocardiogram Patient (Last, First, Middle): Marilou Siddiqui, Gender: Female Date of : 1970 Age: 51 Procedure Date: 10/12/2021 Procedure Type: Transthoracic Echocardiogram Location: ER Height: 170.18 cm Weight: 82.56 kg BSA: 1.94 m2 Heart Rate: bpm BP: 111 / 73 mmHg Master Control Engineer: KAILYN Referring MD: Jocelyn Medley NP Data Integrity Consultant: Chester Moctezuma MD Symptoms: nstemi Study Quality: Fair ECG Rhythm: Sinus Conclusions: - 1. Normal LV systolic function with grade 1 diastolic dysfunction 2. Severely dilated right ventricle with free wall akinesis with positive Wayne sign suggestive of acute cor pulmonale 3. Normal RV systolic pressure 4. Normal cardiac valvular Doppler 5. No gross pericardial effusion Findings Left Ventricle Normal left ventricular size and systolic function. There is mildly increased left ventricular wall thickness. The visually estimated ejection fraction is between 65-70%. Spectral Doppler is indicative of an impaired relaxation filling pattern. E/E prime ratio is <8, consistent with normal filling pressures. Evidence suggests grade I (mild) diastolic dysfunction. Right Ventricle Severely increased right ventricular cavity size. There is moderately decreased right ventricular systolic function. The right ventricular free wall is akinetic and the apex is normal. Overall finding suggestive of positive Wayne sign, suggestive acute cor pulmonale Atria The left atrium is normal in size. There is no evidence of interatrial shunt. The right atrium is mildly dilated. Aortic Valve Normal aortic valve structure and function. There is no aortic valve stenosis. There is no aortic valve regurgitation. Mitral Valve Normal mitral valve structure and function. There is trace mitral valve regurgitation. There is no mitral valve stenosis. Pulmonic Valve The pulmonic valve was not well visualized. Tricuspid Valve Likely normal tricuspid valve structure and function. There is mild tricuspid valve regurgitation. The right ventricular systolic pressure is normal. The right ventricular systolic pressure is 33 mmHg. Normal right atrial pressure. There is no evidence of pulmonary hypertension. Great Vessels All visible segments of the aorta are normal in size. The pulmonary artery was not well visualized. Venous The inferior vena cava is normal in size and collapses greater than 50% with inspiration. Pericardium/Pleural There is no evidence of pericardial effusion. Prior Study Comparison No prior study available for comparison. Measurements 2D Linear Measurements IVSd: 1.30 0.6-0.9/0.6-1.0 cm LVIDd: 3.74 3.9-5.3/4.2-5.9 cm LVIDd Index: 1.93 2.4-3.2/2.2-3.1 cm/m2 LVIDs: 2.27 2.0-3.6 cm LVPWd: 1.31 0.7-1.1 cm LA Diam: 3.10 2.7-3.8/3.0-4.0 cm LAIDs Index: 1.60 1.5-2.3 cm/m2 LV Mass: 211.88 67-162/88-224 g LV Mass Index: 109.22 43-95/49-115 g/m2 LVOT Diam: 2.00 3.0+(-)1.3 cm Mitral Valve MV Pk E: 0.63 MV PK A: 0.63 MV Decel Time: 194.00 E/A: 1.00 E'Lateral: 6.96 E'Medial: 5.22 E/E' Med: 12.10 E/E' Lat: 9.10 PHT: 57.00 MVA PHT: 3.86 Decel Swift: 3.24 Aortic Valve AoV Pk Lenard: 1.08 AoV Mn Lenard: 0.71 AoV VTI: 0.19 AoV Pk Grad: 5.00 Aov Mn Grad: 2.00 EFREN Cont.VTI: 2.70 LVOT LVOT Pk Lenard: 0.84 LVOT Mn Lenard: 0.55 LVOT VTI: 0.17 LVOT Pk Grad: 3.00 LVOT Mn Grad: 1.00 LVOT Diam: 2.00 LVOT Area: 3.14 Diastolic Function MV Pk E: 0.63 MV Pk A: 0.63 E/A: 1.00 E'Medial: 5.22 E/E' Med: 12.10 E' Laterial: 6.96 E/E' Lat: 9.10 Right Ventricle TAPSE (mm): 12.00 TVS' Lenard: 7.00 Tricuspid Valve TR Pk Lenard: 2.76 TR Pk Grad: 30.00 RA Press: 3.00 RVSP: 33.00 Great Vessels Aorta Ao Asc: 3.50 2.1-3.4 cm Pulmonary Valve PV Pk Lenard: 0.81 Peak PV Grad: 3.00 Updated in Other Vendor System with Status of Final Chester Moctezuma MD electronically signed on 10/12/2021 2:44:15 PM with status of Final
[2021-10-12] MEDS: Heparin Sodium,Porcine 5,000 UNIT/ML VIAL 6600 UNIT IVPUSH (12:39)
--- NOTE | 2021-10-12 12:39 | P.CDIC_ITS ---
CDI Concurrent Query Documentation Clarification: PHYSICIAN'S DOCUMENTATION REQUEST Date of Query: 10/12/21 1239 Patient Name: Marilou Siddiqui Admit Date: 10/11/21 Dear Doctor, A review of the medical record indicates additional documentation may be needed. Please review below and update the documentation accordingly. Risk Factors/Clinical Indicators/Treatments Per MD progress note 10/12/21: Status post transmetatarsal amputation of right foot: MRSA bacteremia Per H&P: Severe sepsis secondary to acute on chronic osteomyelitis Please clarify the relationship between these conditions: * Yes, Sepsis is related to / associated with / due to MRSA bacteremia * No, Sepsis is not related to / associated with / due to MRSA bacteremia * Unable to determine Use of terms such as suspected, likely, concern for, or probable (associated with a specific diagnosis that is being evaluated, monitored, or treated as if it exists) are acceptable and can be coded in the inpatient setting, when documented at the time of discharge. Thank you, Jahaira Borjas RN Extension: [phone] Please use your independent medical judgment in providing your response. THIS QUERY IS PART OF THE PERMANENT MEDICAL RECORD Provider Response: Other Other Diagnosis: No evidence of MRSA bacteremia during this admission --- blood cultures negative as of this note. In regards to the cause of sepsis -- see progress note
--- NOTE | 2021-10-12 13:04 | MHC.CM.PN ---
met with pt who was transferred [facility]..pt explins that she lives with her son jaycee she goes to the methadone clinic in [place] her pcp is dr virgilio bliss she has [facility] and would have a ride home kelly manuel her hcp iis on chart she may be transferred [facility] for cardiac cath..if she isnt transferrd she is interested in a drug rehab inpt program
--- NOTE | 2021-10-12 14:36 | HO.SUDE ---
Please see Addiction Medicine note by Bev Salazar APRN.
--- NOTE | 2021-10-12 15:40 | P.PNADD_ITS ---
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 Awake, alert and engaged in interview. Patient tangential and circumstantial, but easy to redirect back to topic. She reports using one bag of heroin and then I woke up here . Patient was started on methadone during previous admission and was being followed by [facility] in [place]. Dose verified at 30mg and last dose administered 10/11 (prior to OD). She reports that she has been working to have dose increased, but has been havin g challenges with transportation. She also cited numerous social stressors including anniversary of her . Provider articulated cardiac concerns and outlined possible options for patient--patient requested provider speak to her son about these. Patient denies any withdrawal sx at time of interview Review of Systems Acute medical concerns: Yes Medical Review of Systems: unchanged Mental Status Exam Mental Status Exam Patient Appearance: Appropriate Patient Orientation: Person, Place, Time and Situation Level of Consciousness: Awake, Appropriate and Alert Patient Behavior: Talkative and Anxious Mood Description: Anxious Affect Description: Anxious Thought Process: Rumination and Linear Thought Content: positive for Circumstantial and positive for Tangential Judgement: Fair Diagnostics Vital Signs (24Hr): Vital Signs - 24 hr 10/11/21 17:05 10/11/21 17:31 10/11/21 18:36 Temperature 99.7 F 98.5 F Pulse Rate 102 H 100 95 Respiratory Rate 20 20 18 Blood Pressure 113/78 109/73 119/76 Pulse Oximetry 96 96 97 10/11/21 19:01 10/11/21 19:33 10/11/21 21:19 Temperature Pulse Rate 95 91 84 Respiratory Rate 18 18 16 Blood Pressure 116/74 112/69 107/69 Pulse Oximetry 100 98 99 10/11/21 23:52 10/12/21 01:59 10/12/21 04:38 Temperature 97.4 F 97.6 F Pulse Rate 78 80 75 Respiratory Rate 19 12 14 Blood Pressure 110/71 130/88 110/74 Pulse Oximetry 98 98 100 10/12/21 06:08 10/12/21 09:49 10/12/21 11:32 Temperature 98.1 F 97.2 F Pulse Rate 73 80 74 Respiratory Rate 12 18 15 Blood Pressure 98/68 133/84 114/60 Pulse Oximetry 98 98 98 BMI result Body Mass Index 28.5 Labs Results: 10/12/21 04:19 10/12/21 04:19 Labs: Laboratory Results - last 48 hr 10/11/21 10/11/21 10/11/21 11:49 12:39 12:39 WBC 21.8 H RBC 3.47 L Hgb 9.1 L Hct 30.1 L MCV 86.7 MCH 26.2 L MCHC 30.2 L RDW 15.1 Plt Count 440 H MPV 9.5 Immature Gran % (Auto) 0.8 H Neut % (Auto) 85.3 H Lymph % (Auto) 12.3 L [place] % (Auto) 1.1 L Eos % (Auto) 0.1 Baso % (Auto) 0.4 Lymph # (Auto) 2.7 [place] # (Auto) 0.3 Eos # (Auto) 0.0 Baso # (Auto) 0.1 Abs Immat Gran (auto) 0.17 H Absolute Neuts (auto) 18.6 H Absolute Nucleated RBC 0.000 Nucleated RBC % (auto) 0.0 PT INR aPTT Heparin Protocol VBG pH VBG pCO2 VBG pO2 VBG HCO3 VBG O2 Saturation VBG Base Excess Sodium 139 Potassium 4.9 D Chloride 102 Carbon Dioxide 19 L Anion Gap 23 H BUN 34 H D Creatinine 2.02 H Estim Creat Clear Calc 35.5 Estimated GFR 26 POC Glucose 328 H Random Glucose 333 H Lactic Acid Lactic Acid F/U @ 2Hr Calcium 9.5 Magnesium 2.2 Total Bilirubin 0.3 Direct Bilirubin 0.2 AST 27 D ALT 15 Alkaline Phosphatase 125 H D Ammonia Troponin I High Sens B-Natriuretic Peptide Total Protein 8.7 H D Albumin 3.8 D TSH Free T4 Urine Color Urine Appearance Urine pH Ur Specific [place] Urine Protein Urine Glucose (UA) Urine Ketones Urine Blood Urine Nitrite Ur Leukocyte Esterase Urine RBC Urine WBC Ur Squamous Epith Cells Amorphous Sediment Urine Bacteria Hyaline Casts Granular Casts Salicylates < 5.0 L Urine Opiates Screen Urine Fentanyl Screen Acetaminophen < 1 Ur Barbiturates Screen Ur Phencyclidine Scrn Ur Amphetamines Screen U Benzodiazepines Scrn Urine Cocaine Screen U Marijuana (THC) Screen Ethyl Alcohol Acetone, Qual COVID-19 (EUSEBIO) COVID-19 Clin Com 10/11/21 10/11/21 10/11/21 12:39 12:39 12:39 WBC RBC Hgb Hct MCV MCH MCHC RDW Plt Count MPV Immature Gran % (Auto) Neut % (Auto) Lymph % (Auto) [place] % (Auto) Eos % (Auto) Baso % (Auto) Lymph # (Auto) [place] # (Auto) Eos # (Auto) Baso # (Auto) Abs Immat Gran (auto) Absolute Neuts (auto) Absolute Nucleated RBC Nucleated RBC % (auto) PT INR aPTT Heparin Protocol VBG pH VBG pCO2 VBG pO2 VBG HCO3 VBG O2 Saturation VBG Base Excess Sodium Potassium Chloride Carbon Dioxide Anion Gap BUN Creatinine Estim Creat Clear Calc Estimated GFR POC Glucose Random Glucose Lactic Acid 4.9 H* Lactic Acid F/U @ 2Hr Calcium Magnesium Total Bilirubin Direct Bilirubin AST ALT Alkaline Phosphatase Ammonia Cancelled Troponin I High Sens 212.7 H* B-Natriuretic Peptide 75 Total Protein Albumin TSH Free T4 Urine Color Urine Appearance Urine pH Ur Specific [place] Urine Protein Urine Glucose (UA) Urine Ketones Urine Blood Urine Nitrite Ur Leukocyte Esterase Urine RBC Urine WBC Ur Squamous Epith Cells Amorphous Sediment Urine Bacteria Hyaline Casts Granular Casts Salicylates Urine Opiates Screen Urine Fentanyl Screen Acetaminophen Ur Barbiturates Screen Ur Phencyclidine Scrn Ur Amphetamines Screen U Benzodiazepines Scrn Urine Cocaine Screen U Marijuana (THC) Screen Ethyl Alcohol Acetone, Qual COVID-19 (EUSEBIO) COVID-19 Clin Com 10/11/21 10/11/21 10/11/21 12:39 12:39 12:40 WBC RBC Hgb Hct MCV MCH MCHC RDW Plt Count MPV Immature Gran % (Auto) Neut % (Auto) Lymph % (Auto) [place] % (Auto) Eos % (Auto) Baso % (Auto) Lymph # (Auto) [place] # (Auto) Eos # (Auto) Baso # (Auto) Abs Immat Gran (auto) Absolute Neuts (auto) Absolute Nucleated RBC Nucleated RBC % (auto) PT 13.2 H INR 1.2 H aPTT Heparin Protocol VBG pH VBG pCO2 VBG pO2 VBG HCO3 VBG O2 Saturation VBG Base Excess Sodium Potassium Chloride Carbon Dioxide Anion Gap BUN Creatinine Estim Creat Clear Calc Estimated GFR POC Glucose Random Glucose Lactic Acid Lactic Acid F/U @ 2Hr Calcium Magnesium Total Bilirubin Direct Bilirubin AST ALT Alkaline Phosphatase Ammonia Troponin I High Sens B-Natriuretic Peptide Total Protein Albumin TSH 5.93 H Free T4 1.00 Urine Color Urine Appearance Urine pH Ur Specific [place] Urine Protein Urine Glucose (UA) Urine Ketones Urine Blood Urine Nitrite Ur Leukocyte Esterase Urine RBC Urine WBC Ur Squamous Epith Cells Amorphous Sediment Urine Bacteria Hyaline Casts Granular Casts Salicylates Urine Opiates Screen Urine Fentanyl Screen Acetaminophen Ur Barbiturates Screen Ur Phencyclidine Scrn Ur Amphetamines Screen U Benzodiazepines Scrn Urine Cocaine Screen U Marijuana (THC) Screen Ethyl Alcohol < 10 Acetone, Qual Negative COVID-19 (EUSEBIO) COVID-19 Primary Data Com 10/11/21 10/11/21 10/11/21 12:40 12:44 13:27 WBC RBC Hgb Hct MCV MCH MCHC RDW Plt Count MPV Immature Gran % (Auto) Neut % (Auto) Lymph % (Auto) [place] % (Auto) Eos % (Auto) Baso % (Auto) Lymph # (Auto) [place] # (Auto) Eos # (Auto) Baso # (Auto) Abs Immat Gran (auto) Absolute Neuts (auto) Absolute Nucleated RBC Nucleated RBC % (auto) PT INR aPTT Heparin Protocol VBG pH 7.27 L VBG pCO2 41 VBG pO2 40 VBG HCO3 19 L VBG O2 Saturation 55.0 VBG Base Excess -6.5 Sodium Potassium Chloride Carbon Dioxide Anion Gap BUN Creatinine Estim Creat Clear Calc Estimated GFR POC Glucose 195 H Random Glucose Lactic Acid Lactic Acid F/U @ 2Hr Calcium Magnesium Total Bilirubin Direct Bilirubin AST ALT Alkaline Phosphatase Ammonia Troponin I High Sens B-Natriuretic Peptide Total Protein Albumin TSH Free T4 Urine Color Urine Appearance Urine pH Ur Specific [place] Urine Protein Urine Glucose (UA) Urine Ketones Urine Blood Urine Nitrite Ur Leukocyte Esterase Urine RBC Urine WBC Ur Squamous Epith Cells Amorphous Sediment Urine Bacteria Hyaline Casts Granular Casts Salicylates Urine Opiates Screen Urine Fentanyl Screen Acetaminophen Ur Barbiturates Screen Ur Phencyclidine Scrn Ur Amphetamines Screen U Benzodiazepines Scrn Urine Cocaine Screen U Marijuana (THC) Screen Ethyl Alcohol Acetone, Qual COVID-19 (EUSEBIO) Negative COVID-19 Celect See Note 10/11/21 10/11/21 10/11/21 16:48 16:48 17:03 WBC RBC Hgb Hct MCV MCH MCHC RDW Plt Count MPV Immature Gran % (Auto) Neut % (Auto) Lymph % (Auto) [place] % (Auto) Eos % (Auto) Baso % (Auto) Lymph # (Auto) [place] # (Auto) Eos # (Auto) Baso # (Auto) Abs Immat Gran (auto) Absolute Neuts (auto) Absolute Nucleated RBC Nucleated RBC % (auto) PT INR aPTT Heparin Protocol VBG pH VBG pCO2 VBG pO2 VBG HCO3 VBG O2 Saturation VBG Base Excess Sodium Potassium Chloride Carbon Dioxide Anion Gap BUN Creatinine Estim Creat Clear Calc Estimated GFR POC Glucose Random Glucose Lactic Acid 1.6 Lactic Acid F/U @ 2Hr Calcium Magnesium Total Bilirubin Direct Bilirubin AST ALT Alkaline Phosphatase Ammonia Troponin I High Sens 1550.8 H* D B-Natriuretic Peptide Total Protein Albumin TSH Free T4 Urine Color YELLOW Urine Appearance CLEAR Urine pH 6.0 Ur Specific [place] 1.025 Urine Protein 1+ H Urine Glucose (UA) NEG Urine Ketones NEG Urine Blood TRACE Urine Nitrite NEG Ur Leukocyte Esterase NEG Urine RBC 1-4 Urine WBC 1-4 Ur Squamous Epith Cells 1+ Amorphous Sediment TRACE Urine Bacteria NONE Hyaline Casts 0-2 Granular Casts 0-2 Salicylates Urine Opiates Screen Urine Fentanyl Screen Acetaminophen Ur Barbiturates Screen Ur Phencyclidine Scrn Ur Amphetamines Screen U Benzodiazepines Scrn Urine Cocaine Screen U Marijuana (THC) Screen Ethyl Alcohol Acetone, Qual COVID-19 (EUSEBIO) COVID-19 Clin Com 10/11/21 10/11/21 10/11/21 17:03 17:28 18:20 WBC RBC Hgb Hct MCV MCH MCHC RDW Plt Count MPV Immature Gran % (Auto) Neut % (Auto) Lymph % (Auto) [place] % (Auto) Eos % (Auto) Baso % (Auto) Lymph # (Auto) [place] # (Auto) Eos # (Auto) Baso # (Auto) Abs Immat Gran (auto) Absolute Neuts (auto) Absolute Nucleated RBC Nucleated RBC % (auto) PT INR aPTT Heparin Protocol VBG pH VBG pCO2 VBG pO2 VBG HCO3 VBG O2 Saturation VBG Base Excess Sodium Potassium Chloride Carbon Dioxide Anion Gap BUN Creatinine Estim Creat Clear Calc Estimated GFR POC Glucose 164 H Random Glucose Lactic Acid Lactic Acid F/U @ 2Hr 1.2 Calcium Magnesium Total Bilirubin Direct Bilirubin AST ALT Alkaline Phosphatase Ammonia Troponin I High Sens B-Natriuretic Peptide Total Protein Albumin TSH Free T4 Urine Color Urine Appearance Urine pH Ur Specific [place] Urine Protein Urine Glucose (UA) Urine Ketones Urine Blood Urine Nitrite Ur Leukocyte Esterase Urine RBC Urine WBC Ur Squamous Epith Cells Amorphous Sediment Urine Bacteria Hyaline Casts Granular Casts Salicylates Urine Opiates Screen POSITIVE H Urine Fentanyl Screen POSITIVE H Acetaminophen Ur Barbiturates Screen Not Detected Ur Phencyclidine Scrn Not Detected Ur Amphetamines Screen Not Detected U Benzodiazepines Scrn POSITIVE H Urine Cocaine Screen Not Detected U Marijuana (THC) Screen Not Detected Ethyl Alcohol Acetone, Qual COVID-19 (EUSEBIO) COVID-19 Celect 10/11/21 10/11/21 10/12/21 20:57 21:17 04:19 WBC RBC Hgb Hct MCV MCH MCHC RDW Plt Count MPV Immature Gran % (Auto) Neut % (Auto) Lymph % (Auto) [place] % (Auto) Eos % (Auto) Baso % (Auto) Lymph # (Auto) [place] # (Auto) Eos # (Auto) Baso # (Auto) Abs Immat Gran (auto) Absolute Neuts (auto) Absolute Nucleated RBC Nucleated RBC % (auto) PT 15.2 H INR 1.3 H aPTT Heparin Protocol 33.8 L > 200.0 H* D VBG pH VBG pCO2 VBG pO2 VBG HCO3 VBG O2 Saturation VBG Base Excess Sodium Potassium Chloride Carbon Dioxide Anion Gap BUN Creatinine Estim Creat Clear Calc Estimated GFR POC Glucose 111 Random Glucose Lactic Acid Lactic Acid F/U @ 2Hr Calcium Magnesium Total Bilirubin Direct Bilirubin AST ALT Alkaline Phosphatase Ammonia Troponin I High Sens B-Natriuretic Peptide Total Protein Albumin TSH Free T4 Urine Color Urine Appearance Urine pH Ur Specific [place] Urine Protein Urine Glucose (UA) Urine Ketones Urine Blood Urine Nitrite Ur Leukocyte Esterase Urine RBC Urine WBC Ur Squamous Epith Cells Amorphous Sediment Urine Bacteria Hyaline Casts Granular Casts Salicylates Urine Opiates Screen Urine Fentanyl Screen Acetaminophen Ur Barbiturates Screen Ur Phencyclidine Scrn Ur Amphetamines Screen U Benzodiazepines Scrn Urine Cocaine Screen U Marijuana (THC) Screen Ethyl Alcohol Acetone, Qual COVID-19 (EUSEBIO) COVID-19 Celect 10/12/21 10/12/21 10/12/21 04:19 04:19 04:19 WBC 9.1 RBC 2.91 L Hgb 7.7 L Hct 25.0 L MCV 85.9 MCH 26.5 L MCHC 30.8 L RDW 15.4 Plt Count 284 D MPV 9.4 Immature Gran % (Auto) 1.0 H Neut % (Auto) 56.8 Lymph % (Auto) 34.3 [place] % (Auto) 5.6 Eos % (Auto) 1.5 Baso % (Auto) 0.8 Lymph # (Auto) 3.1 [place] # (Auto) 0.5 Eos # (Auto) 0.1 Baso # (Auto) 0.1 Abs Immat Gran (auto) 0.09 H Absolute Neuts (auto) 5.2 Absolute Nucleated RBC 0.000 Nucleated RBC % (auto) 0.0 PT INR aPTT Heparin Protocol VBG pH VBG pCO2 VBG pO2 VBG HCO3 VBG O2 Saturation VBG Base Excess Sodium 140 Potassium 3.7 D Chloride 109 H Carbon Dioxide 23 Anion Gap 12 BUN 29 H Creatinine 1.40 Estim Creat Clear Calc 52.5 Estimated GFR 40 POC Glucose Random Glucose 112 Lactic Acid Lactic Acid F/U @ 2Hr Calcium 8.4 D Magnesium Total Bilirubin Direct Bilirubin AST ALT Alkaline Phosphatase Ammonia Troponin I High Sens 1480.1 H* B-Natriuretic Peptide Total Protein Albumin TSH Free T4 Urine Color Urine Appearance Urine pH Ur Specific [place] Urine Protein Urine Glucose (UA) Urine Ketones Urine Blood Urine Nitrite Ur Leukocyte Esterase Urine RBC Urine WBC Ur Squamous Epith Cells Amorphous Sediment Urine Bacteria Hyaline Casts Granular Casts Salicylates Urine Opiates Screen Urine Fentanyl Screen Acetaminophen Ur Barbiturates Screen Ur Phencyclidine Scrn Ur Amphetamines Screen U Benzodiazepines Scrn Urine Cocaine Screen U Marijuana (THC) Screen Ethyl Alcohol Acetone, Qual COVID-19 (EUSEBIO) COVID-19 Clin Com 10/12/21 10/12/21 10/12/21 05:26 08:30 08:30 WBC RBC Hgb Hct MCV MCH MCHC RDW Plt Count MPV Immature Gran % (Auto) Neut % (Auto) Lymph % (Auto) [place] % (Auto) Eos % (Auto) Baso % (Auto) Lymph # (Auto) [place] # (Auto) Eos # (Auto) Baso # (Auto) Abs Immat Gran (auto) Absolute Neuts (auto) Absolute Nucleated RBC Nucleated RBC % (auto) PT INR aPTT Heparin Protocol 39.4 L D 45.7 L VBG pH VBG pCO2 VBG pO2 VBG HCO3 VBG O2 Saturation VBG Base Excess Sodium Potassium Chloride Carbon Dioxide Anion Gap BUN Creatinine Estim Creat Clear Calc Estimated GFR POC Glucose Random Glucose Lactic Acid Lactic Acid F/U @ 2Hr Calcium Magnesium Total Bilirubin Direct Bilirubin AST ALT Alkaline Phosphatase Ammonia Troponin I High Sens 859.7 H* B-Natriuretic Peptide Total Protein Albumin TSH Free T4 Urine Color Urine Appearance Urine pH Ur Specific [place] Urine Protein Urine Glucose (UA) Urine Ketones Urine Blood Urine Nitrite Ur Leukocyte Esterase Urine RBC Urine WBC Ur Squamous Epith Cells Amorphous Sediment Urine Bacteria Hyaline Casts Granular Casts Salicylates Urine Opiates Screen Urine Fentanyl Screen Acetaminophen Ur Barbiturates Screen Ur Phencyclidine Scrn Ur Amphetamines Screen U Benzodiazepines Scrn Urine Cocaine Screen U Marijuana (THC) Screen Ethyl Alcohol Acetone, Qual COVID-19 (EUSEBIO) COVID-19 Celect 10/12/21 10/12/21 10/12/21 09:10 11:35 12:02 WBC RBC Hgb Hct MCV MCH MCHC RDW Plt Count MPV Immature Gran % (Auto) Neut % (Auto) Lymph % (Auto) [place] % (Auto) Eos % (Auto) Baso % (Auto) Lymph # (Auto) [place] # (Auto) Eos # (Auto) Baso # (Auto) Abs Immat Gran (auto) Absolute Neuts (auto) Absolute Nucleated RBC Nucleated RBC % (auto) PT INR aPTT Heparin Protocol 33.9 L D VBG pH VBG pCO2 VBG pO2 VBG HCO3 VBG O2 Saturation VBG Base Excess Sodium Potassium Chloride Carbon Dioxide Anion Gap BUN Creatinine Estim Creat Clear Calc Estimated GFR POC Glucose 136 H 148 H Random Glucose Lactic Acid Lactic Acid F/U @ 2Hr Calcium Magnesium Total Bilirubin Direct Bilirubin AST ALT Alkaline Phosphatase Ammonia Troponin I High Sens B-Natriuretic Peptide Total Protein Albumin TSH Free T4 Urine Color Urine Appearance Urine pH Ur Specific [place] Urine Protein Urine Glucose (UA) Urine Ketones Urine Blood Urine Nitrite Ur Leukocyte Esterase Urine RBC Urine WBC Ur Squamous Epith Cells Amorphous Sediment Urine Bacteria Hyaline Casts Granular Casts Salicylates Urine Opiates Screen Urine Fentanyl Screen Acetaminophen Ur Barbiturates Screen Ur Phencyclidine Scrn Ur Amphetamines Screen U Benzodiazepines Scrn Urine Cocaine Screen U Marijuana (THC) Screen Ethyl Alcohol Acetone, Qual COVID-19 (EUSEBIO) COVID-19 Primary Data Com Imaging Radiology Impressions: ITS Impressions Chest X-Ray 10/11/21 13:35 IMPRESSION: No radiographic evidence of aspiration. Foot X-Ray 10/11/21 18:09 IMPRESSION: Unchanged bone destruction and soft tissue loss distal great toe Medications Medications Current Medications Acetaminophen (Acetaminophen 325 Mg Tablet) 650 mg PO Q6H PRN PRN Reason: Pain, Mild (Pain Scale 1-3) Last Admin: 10/11/21 17:39 Dose: 650 mg Documented by: Alprazolam (Alprazolam 0.5 Mg Tablet) 1 mg PO DAILY PRN PRN Reason: Anxiety Alprazolam (Alprazolam 0.5 Mg Tablet) 2 mg PO BID [facility] Last Admin: 10/12/21 09:44 Dose: 2 mg Documented by: Aspirin (Aspirin 81 Mg Tab.Chew) 81 mg PO DAILY [facility] Last Admin: 10/12/21 09:44 Dose: 81 mg Documented by: Atorvastatin Calcium (Atorvastatin Calcium 40 Mg Tablet) 40 mg PO BEDTIME [facility] Last Admin: 10/11/21 21:48 Dose: 40 mg Documented by: Dextrose (Dextrose 50 % 25 Gm/50 Ml Vial) 25 gm IVPUSH Q15M PRN; Protocol PRN Reason: per Hypoglycemia Standing Ord. Gabapentin (Gabapentin 400 Mg Capsule) 400 mg PO QID [facility] Last Admin: 10/12/21 12:40 Dose: 400 mg Documented by: Glucose (Glucose Gel 15 Gm Gel..Gram.) 15 gm PO Q15M PRN; Protocol PRN Reason: per Hypoglycemia Standing Ord. Heparin Sodium (Porcine) (Heparin Sodium,Porcine 5,000 Unit/Ml Vial) 3,300 unit 40 unit/kg (3300 unit) IVPUSH PROTOCOL BOLUS PRN; Protocol PRN Reason: 40 unit/kg - Heparin Protocol Last Admin: 10/12/21 06:38 Dose: 3,300 unit Documented by: Heparin Sodium (Porcine) (Heparin Sodium,Porcine 5,000 Unit/Ml Vial) 6,600 unit 80 unit/kg (6600 unit) IVPUSH PROTOCOL BOLUS PRN; Protocol PRN Reason: 80 unit/kg - Heparin Protocol Last Admin: 10/12/21 12:39 Dose: 6,600 unit Documented by: Vancomycin HCl 1,000 mg/ (Sodium Chloride) 270 mls @ 270 mls/hr IV Q24H [facility] Last Infusion: 10/11/21 19:01 Dose: Infused Documented by: Sodium Chloride (Ns) 1,000 mls @ 100 mls/hr IVCONT .Q10H [facility] Last Admin: 10/12/21 14:46 Dose: Not Given Documented by: Heparin Sodium/Sodium Chloride () 25,000 unit in 250 mls @ 0 mls/hr IVCONT .Q0M [facility]; Protocol Last Titration: 10/12/21 12:40 Dose: 20 units/kg/hr, 16.56 mls/hr Documented by: Insulin Glargine (Insulin Glargine,Hum.Rec.Anlog 100 Unit/Ml 10 Ml Vial) 35 unit SUBCUT BEDTIME [facility] Last Admin: 10/11/21 21:50 Dose: 35 unit Documented by: Insulin Human Lispro (Insulin Lispro 100 Unit/Ml 3 Ml Vial) 0 unit SUBCUT QIDACHS [facility]; Protocol Last Admin: 10/12/21 12:35 Dose: Not Given Documented by: Lactic Acid (Ammonium Lactate 12 % Lotion 226 Gm Bottle) 1 appl TOPICAL BID [facility]; Protocol Last Admin: 10/12/21 11:34 Dose: Not Given Documented by: Methadone HCl (Methadone Hcl 20 Mg/2 Ml Oral.Conc) 30 mg PO DAILY [facility] Last Admin: 10/12/21 09:43 Dose: 30 mg Documented by: Ondansetron HCl (Ondansetron Hcl 4 Mg/2 Ml Vial) 4 mg IVPUSH Q8H PRN PRN Reason: Nausea and Vomiting Pharmacy Consult (Consult Rx Vancomycin Dosing) 1 each MISCELLANE DAILY PRN PRN Reason: Consult order Sertraline HCl (Sertraline Hcl 100 Mg Tablet) 100 mg PO BID [facility] Last Admin: 10/12/21 09:45 Dose: Not Given Documented by: Sodium Chloride (0.9 % Sodium Chloride Flush 3 Ml Syringe) 3 ml IVFLUSH QSHIFT [facility] Last Admin: 10/12/21 15:25 Dose: Not Given Documented by: Allergies Allergies Allergy/AdvReac Type Severity Reaction Status Date / Time prednisone [PREDNISONE] Allergy Unknown RASH Verified 09/24/21 11:47 Assessment & Plan Assessment & Plan (1) Opioid use disorder: Status: Acute Code(s): F11.90 - Opioid use, unspecified, uncomplicated Assessment and Plan: * Methadone 30mg QD * Will continue to follow and titrate dose as appropriate I spent __40____ minutes with the patient and/or on the patient floor today, greater than?50% of which was spent counseling/coordinating care.
[2021-10-12 15:55] LABS: Glucose, Whole Blood 127 mg/dL (60-115)
--- NOTE | 2021-10-12 16:11 | W.PM.IDCN ---
History of Present Illness Data of Consult Service Date: 10/12/21 Requesting physician: Jocelyn Medley Primary Care Provider: Nikhil Potts MD [facility] Reason for consult: chronic osteomyelitis feet She presents with overdose on medications. She also has chronic infection feet and didnt burr picker linezolid prescribed at last hospital stay. She has no fever or chills. Review of Systems Review of Systems: Yes all other systems are reviewed and are negative [facility] Past Medical History Medical History (Updated 10/15/21 @ 10:28 by SAULO [place]) Anxiety Diabetes Substance abuse Family History Family history: reviewed and not pertinent Surgical History Surgical History (Updated 10/13/21 @ 15:21 by Kay Ortiz MD) S/P amputation of foot Status post transmetatarsal amputation of right foot (09/24/21) Social History Social History Household Members: Family Housing: Apartment Do you presently have visiting nurse or other home services: Yes (Supposed to but pt. went to hospital) Alcohol intake: never Patient Tobacco Use Status: Current everyday Tobacco user Tobacco use type: Cigarette Cigarette Packs Per Day: 1 Second Hand Smoke Exposure: Yes Substance Use Type: Heroin, Opiates and Prescription Drugs service: No Current occupational status: unemployed Meds Allergies Allergy/AdvReac Type Severity Reaction Status Date / Time prednisone [PREDNISONE] Allergy Unknown RASH Verified 09/24/21 11:47 Active Medications: Current Medications Acetaminophen (Acetaminophen 325 Mg Tablet) 650 mg PO Q6H PRN PRN Reason: Pain, Mild (Pain Scale 1-3) Last Admin: 10/11/21 17:39 Dose: 650 mg Documented by: Alprazolam (Alprazolam 0.5 Mg Tablet) 1 mg PO DAILY PRN PRN Reason: Anxiety Alprazolam (Alprazolam 0.5 Mg Tablet) 2 mg PO BID REPLACED BY [facility] Last Admin: 10/12/21 09:44 Dose: 2 mg Documented by: Aspirin (Aspirin 81 Mg Tab.Chew) 81 mg PO DAILY REPLACED BY [facility] Last Admin: 10/12/21 09:44 Dose: 81 mg Documented by: Atorvastatin Calcium (Atorvastatin Calcium 40 Mg Tablet) 40 mg PO BEDTIME REPLACED BY [facility] Last Admin: 10/11/21 21:48 Dose: 40 mg Documented by: Dextrose (Dextrose 50 % 25 Gm/50 Ml Vial) 25 gm IVPUSH Q15M PRN; Protocol PRN Reason: per Hypoglycemia Standing Ord. Gabapentin (Gabapentin 400 Mg Capsule) 400 mg PO QID REPLACED BY [facility] Last Admin: 10/12/21 12:40 Dose: 400 mg Documented by: Glucose (Glucose Gel 15 Gm Gel..Gram.) 15 gm PO Q15M PRN; Protocol PRN Reason: per Hypoglycemia Standing Ord. Heparin Sodium (Porcine) (Heparin Sodium,Porcine 5,000 Unit/Ml Vial) 3,300 unit 40 unit/kg (3300 unit) IVPUSH PROTOCOL BOLUS PRN; Protocol PRN Reason: 40 unit/kg - Heparin Protocol Last Admin: 10/12/21 06:38 Dose: 3,300 unit Documented by: Heparin Sodium (Porcine) (Heparin Sodium,Porcine 5,000 Unit/Ml Vial) 6,600 unit 80 unit/kg (6600 unit) IVPUSH PROTOCOL BOLUS PRN; Protocol PRN Reason: 80 unit/kg - Heparin Protocol Last Admin: 10/12/21 12:39 Dose: 6,600 unit Documented by: Vancomycin HCl 1,000 mg/ (Sodium Chloride) 270 mls @ 270 mls/hr IV Q24H REPLACED BY [facility] Last Infusion: 10/11/21 19:01 Dose: Infused Documented by: Sodium Chloride (Ns) 1,000 mls @ 100 mls/hr IVCONT .Q10H REPLACED BY [facility] Last Admin: 10/12/21 14:46 Dose: Not Given Documented by: Heparin Sodium/Sodium Chloride () 25,000 unit in 250 mls @ 0 mls/hr IVCONT .Q0M REPLACED BY [facility]; Protocol Last Titration: 10/12/21 12:40 Dose: 20 units/kg/hr, 16.56 mls/hr Documented by: Insulin Glargine (Insulin Glargine,Hum.Rec.Anlog 100 Unit/Ml 10 Ml Vial) 35 unit SUBCUT BEDTIME REPLACED BY [facility] Last Admin: 10/11/21 21:50 Dose: 35 unit Documented by: Insulin Human Lispro (Insulin Lispro 100 Unit/Ml 3 Ml Vial) 0 unit SUBCUT QIDACHS REPLACED BY [facility]; Protocol Last Admin: 10/12/21 12:35 Dose: Not Given Documented by: Lactic Acid (Ammonium Lactate 12 % Lotion 226 Gm Bottle) 1 appl TOPICAL BID REPLACED BY [facility]; Protocol Last Admin: 10/12/21 11:34 Dose: Not Given Documented by: Methadone HCl (Methadone Hcl 20 Mg/2 Ml Oral.Conc) 30 mg PO DAILY REPLACED BY [facility] Last Admin: 10/12/21 09:43 Dose: 30 mg Documented by: Ondansetron HCl (Ondansetron Hcl 4 Mg/2 Ml Vial) 4 mg IVPUSH Q8H PRN PRN Reason: Nausea and Vomiting Pharmacy Consult (Consult Rx Vancomycin Dosing) 1 each MISCELLANE DAILY PRN PRN Reason: Consult order Sertraline HCl (Sertraline Hcl 100 Mg Tablet) 100 mg PO BID REPLACED BY [facility] Last Admin: 10/12/21 09:45 Dose: Not Given Documented by: Sodium Chloride (0.9 % Sodium Chloride Flush 3 Ml Syringe) 3 ml IVFLUSH QSHIFT REPLACED BY [facility] Last Admin: 10/12/21 15:25 Dose: Not Given Documented by: Home Medications Medication Instructions Recorded Confirmed Last Taken Type alprazolam 2 mg tablet 1 mg PO DAILY PRN 09/21/21 10/11/21 Unknown History alprazolam 2 mg tablet 2 mg PO BID 09/21/21 10/11/21 Unknown History gabapentin 400 mg capsule 400 mg PO QID 09/21/21 10/11/21 Unknown History insulin glargine 100 unit/mL (3 35 unit SUBCUT BEDTIME 09/21/21 10/11/21 Unknown History mL) subcutaneous pen (Lantus Solostar U-100 Insulin) sertraline 100 mg tablet 1 tab PO BID 09/21/21 10/11/21 Unknown History Physical Exam Vital Signs: Vital Signs: Last Vital Signs Temp 98.6 F 10/12/21 15:47 Pulse 76 10/12/21 15:47 Resp 18 10/12/21 15:47 BP 102/59 L 10/12/21 15:47 Pulse Ox 93 10/12/21 15:47 BMI result Body Mass Index 28.5 Const: General: cooperative Eyes: General: appearance normal, both eyes and all related structures Resp: Effort & Inspection: normal respiratory effort Cardio: Rate: regular rate Rhythm: regular rhythm GI: Palpation (GI): Soft to palpation and nontender Extrem: Other: chronic feet rubor,no cellulitis or purulence Right TMA left great toe rubor,no gangrene Results Labs CBC & Chem 7: 10/14/21 07:46 10/15/21 06:07 Labs: Short CBC 10/12/21 Range/Units 04:19 WBC 9.1 (4.8-10.8) X10*3/uL Hgb 7.7 L (12.0-16.0) g/dl Hct 25.0 L (37.0-47.0) % Plt Count 284 D (160-400) X10*3/uL BMP 10/12/21 04:19 Sodium 140 Potassium 3.7 D Chloride 109 H Carbon Dioxide 23 BUN 29 H Creatinine 1.40 Calcium 8.4 D Urine 10/11/21 Range/Units 17:03 Urine Color YELLOW Urine Appearance CLEAR Urine pH 6.0 (5.0-8.0) Ur Specific [place] 1.025 (1.005-1.025) Urine Protein 1+ H (NEG-TRACE) MG/DL Urine Glucose (UA) NEG (NEG) MG/DL Microbiology Microbiology Results: Microbiology 10/11/21 13:12 Blood - Venous Blood Culture - Preliminary No growth after 24 hours. 10/11/21 12:39 Blood - Venous Blood Culture - Preliminary No growth after 24 hours. Assessment and Plan (1) Opioid use disorder: Status: Acute (2) Osteomyelitis: Qualifiers: Osteomyelitis location: multiple sites Osteomyelitis type: other Qualified Code(s): M86.8X0 - Other osteomyelitis, multiple sites Status: Acute There is possible gram negative and gram positive. Most likely MRSA. Plan She says she will use IV if given IV antibiotics for drugs. PO linezolid for six weeks if takes
[2021-10-12] MEDS: Heparin Sodium,Porcine/1/2NS 25,000 UNIT/250 ML IV.SOLN 16.56 UNIT IVCONT (18:43)
[2021-10-12] MEDS: Acetaminophen 325 MG TABLET 650 MG PO (18:45)
[2021-10-12 19:02] LABS: PTT Heparin Drip 50.7 SEC (53-77.9)
[2021-10-12] MEDS: vancomycin HCL 1,000 MG in 0.9 % Sodium Chloride 250 ML 270 MG IV (19:21)
--- NOTE | 2021-10-12 19:55 | PM.EVENT ---
Event Note Date of Service: 10/12/21 Event Note: VQ scan showed multiple bilateral PEs throughout both lungs pt already on heparin drip
[2021-10-12 20:01] LABS: Glucose, Whole Blood 117 mg/dL (60-115)
[2021-10-12] MEDS: Atorvastatin Calcium 40 MG TABLET PO (21:42)
[2021-10-12] MEDS: Insulin Glargine,Hum.rec.anlog 100 UNIT/ML 10 ML VIAL 35 UNIT SUBCUT (21:50)
[2021-10-13] VITALS (7 sets, daily range): BP systolic 98–142; BP diastolic 55–81; PULSE 68–79; RESP 14–20; TEMP 35.9–36.8; O2SAT 94–96
[2021-10-13 02:09] LABS: PTT Heparin Drip 97.9 SEC (53-77.9)
[2021-10-13 06:40] LABS: Anion Gap 13 (12-20); Blood Urea Nitrogen 26 mg/dL (9-16); Calcium 8.2 mg/dL (8.4-10.2); Carbon Dioxide 20 mmol/L (22-29); Chloride 110 mmol/L (96-108); Creatinine Clr Calc Pharmacy 67.5; Estimated Glomerular Filt Rate 53; Potassium 3.9 mmol/L (3.3-5.1); Sodium 139 mmol/L (135-145)
[2021-10-13 06:55] LABS: Glucose Random 58 mg/dL (60-115)
[2021-10-13 07:16] LABS: Glucose, Whole Blood 93 mg/dL (60-115)
[2021-10-13] MEDS: 0.9 % Sodium Chloride 1,000 ML 100 ML IVCONT ×2 (08:20→20:26)
[2021-10-13] MEDS: Aspirin 81 MG TAB.CHEW PO (08:21)
[2021-10-13] MEDS: Gabapentin 400 MG CAPSULE PO ×4 (08:21→20:27)
[2021-10-13] MEDS: methADONE HCl 20 MG/2 ML ORAL.CONC 30 MG PO (08:21)
[2021-10-13] MEDS: ALPRAZolam 0.5 MG TABLET 2 MG PO ×2 (08:21→20:27)
--- NOTE | 2021-10-13 09:14 | P.PNIM_ITS ---
Subjective Subjective Date of Service: 10/13/21 Interval History: Seen in f/u for hypoxia due to PE, overdose and sepsis. She feels better, no sob Review of Systems no sob, no fever Physical Exam Vital Signs: Vital Signs: Last Vital Signs Temp 98 F 10/13/21 07:04 Pulse 69 10/13/21 07:04 Resp 19 10/13/21 07:04 BP 133/71 10/13/21 07:04 Pulse Ox 95 10/13/21 07:04 BMI result Body Mass Index 28.5 Const: Other: General: AO X 3, no acute distress Resp: CTA bilateral CVS: S1,S2,RRR GI: +BS, NT, no distention Skin: No rash Neuro: motor grossly intact Psych: appropriate affect Objective Data Active Medications Acetaminophen (Acetaminophen 325 Mg Tablet) 650 mg PO Q6H PRN PRN Reason: Pain, Mild (Pain Scale 1-3) Last Admin: 10/12/21 18:45 Dose: 650 mg Documented by: CARLO Alprazolam (Alprazolam 0.5 Mg Tablet) 1 mg PO DAILY PRN PRN Reason: Anxiety Alprazolam (Alprazolam 0.5 Mg Tablet) 2 mg PO BID [facility] Last Admin: 10/13/21 08:21 Dose: 2 mg Documented by: NNEKA Aspirin (Aspirin 81 Mg Tab.Chew) 81 mg PO DAILY [facility] Last Admin: 10/13/21 08:21 Dose: 81 mg Documented by: NNEKA Atorvastatin Calcium (Atorvastatin Calcium 40 Mg Tablet) 40 mg PO BEDTIME [facility] Last Admin: 10/12/21 21:42 Dose: 40 mg Documented by: CARLO Dextrose (Dextrose 50 % 25 Gm/50 Ml Vial) 25 gm IVPUSH Q15M PRN; Protocol PRN Reason: per Hypoglycemia Standing Ord. Gabapentin (Gabapentin 400 Mg Capsule) 400 mg PO QID [facility] Last Admin: 10/13/21 08:21 Dose: 400 mg Documented by: NNEKA Glucose (Glucose Gel 15 Gm Gel..Gram.) 15 gm PO Q15M PRN; Protocol PRN Reason: per Hypoglycemia Standing Ord. Heparin Sodium (Porcine) (Heparin Sodium,Porcine 5,000 Unit/Ml Vial) 3,300 unit 40 unit/kg (3300 unit) IVPUSH PROTOCOL BOLUS PRN; Protocol PRN Reason: 40 unit/kg - Heparin Protocol Last Admin: 10/12/21 06:38 Dose: 3,300 unit Documented by: MYKE Heparin Sodium (Porcine) (Heparin Sodium,Porcine 5,000 Unit/Ml Vial) 6,600 unit 80 unit/kg (6600 unit) IVPUSH PROTOCOL BOLUS PRN; Protocol PRN Reason: 80 unit/kg - Heparin Protocol Last Admin: 10/12/21 12:39 Dose: 6,600 unit Documented by: NIC Vancomycin HCl 1,000 mg/ (Sodium Chloride) 270 mls @ 270 mls/hr IV Q24H [facility] Last Infusion: 10/12/21 21:46 Dose: 0 mls/hr Documented by: CARLO Sodium Chloride (Ns) 1,000 mls @ 100 mls/hr IVCONT .Q10H [facility] Last Admin: 10/13/21 08:20 Dose: 100 mls/hr Documented by: NNEKA Heparin Sodium/Sodium Chloride () 25,000 unit in 250 mls @ 0 mls/hr IVCONT .Q0M [facility]; Protocol Last Titration: 10/13/21 03:31 Dose: 19 units/kg/hr, 15.73 mls/hr Documented by: ESPREANZA Cosigned by: DANIELLE Insulin Glargine (Insulin Glargine,Hum.Rec.Anlog 100 Unit/Ml 10 Ml Vial) 35 unit SUBCUT BEDTIME [facility] Last Admin: 10/12/21 21:50 Dose: 35 unit Documented by: CARLO Insulin Human Lispro (Insulin Lispro 100 Unit/Ml 3 Ml Vial) 0 unit SUBCUT QIDACHS [facility]; Protocol Last Admin: 10/13/21 07:17 Dose: Not Given Documented by: NNEKA Non-Admin Reason: No Insulin Coverage Lactic Acid (Ammonium Lactate 12 % Lotion 226 Gm Bottle) 1 appl TOPICAL BID [facility]; Protocol Last Admin: 10/13/21 09:04 Dose: Not Given Documented by: NNEKA Non-Admin Reason: Patient Refused Methadone HCl (Methadone Hcl 20 Mg/2 Ml Oral.Conc) 30 mg PO DAILY [facility] Last Admin: 10/13/21 08:21 Dose: 30 mg Documented by: NNEKA Ondansetron HCl (Ondansetron Hcl 4 Mg/2 Ml Vial) 4 mg IVPUSH Q8H PRN PRN Reason: Nausea and Vomiting Pharmacy Consult (Consult Rx Vancomycin Dosing) 1 each MISCELLANE DAILY PRN PRN Reason: Consult order Sertraline HCl (Sertraline Hcl 100 Mg Tablet) 100 mg PO BID [facility] Last Admin: 10/13/21 08:26 Dose: Not Given Documented by: NNEKA Non-Admin Reason: Patient Refused Sodium Chloride (0.9 % Sodium Chloride Flush 3 Ml Syringe) 3 ml IVFLUSH QSHIFT [facility] Last Admin: 10/13/21 07:18 Dose: Not Given Documented by: NNEKA Non-Admin Reason: IV Running Labs CBC & Chem 7: 10/12/21 04:19 10/13/21 05:24 Labs: Laboratory Results - last 24 hr 10/12/21 10/12/21 10/12/21 09:10 11:35 12:02 aPTT Heparin Protocol 33.9 L D Anion Gap Estim Creat Clear Calc Estimated GFR POC Glucose 136 H 148 H Random Glucose Calcium 10/12/21 10/12/21 10/12/21 15:49 18:45 19:47 aPTT Heparin Protocol 50.7 L D Anion Gap Estim Creat Clear Calc Estimated GFR POC Glucose 127 H 117 H Random Glucose Calcium 10/13/21 10/13/21 10/13/21 01:46 05:24 07:11 aPTT Heparin Protocol 97.9 H D Anion Gap 13 Estim Creat Clear Calc 67.5 Estimated GFR 53 POC Glucose 93 Random Glucose 58 L* Calcium 8.2 L Microbiology Microbiology Results: Microbiology 10/11/21 13:12 Blood Culture - Preliminary Blood - Venous No growth after 24 hours. 10/11/21 12:39 Blood Culture - Preliminary Blood - Venous No growth after 24 hours. Assessment and Plan (1) Osteomyelitis: Status: Acute (2) Pulmonary embolism: Status: Acute Plan 51/F with chronic opioid use desorder recent TMA of right from osteo and active osteomylitis on left foot, presented following overdose epdisode and noted to be hypoxic and subsequent work up has revealed NSTEMI and Bilaterl PEs Pulmonary embolism--probably from imobility recent hospitalization. On heparin, no longer hypoxi.. Hematology consult to see if needs further work up and when and if should be transition to new oral agents such as eliquis or xarelto Acute hypoxic respiratory failure due to PE, and overdose, resovled, on room air now NSTEM--Elevated troponin likely d/t related to PE, however when medically stable from PE standpoint should have ischemic work up on outpatient basis medical therapy with ASA, statin and BB as well Severe sepsis secondary to acute on chronic osteomyelitis--sepsis resovled. -ID is recommending oral Zyvox as not candidate for IV antibiotics d/t ongoing drug abuse and high likelyhood to use drug through IV. Prior attempt to send to rehab also unsuccesful as facility unwilling to take due to ongoing drug use even in the hospital and being found with multiple bags of heroin during last hospitalization and current hospitalization as well Overdose, chronic opioid dependence--Methadone, adiction med following BERNABE.?Resolved. Status post TMA Wound care nurse consult Esther-Hydrin for dry skin Gen surg following no debridement required Diabetes ss, ada diet lantus hypoglycemia this morning, resolved and monitor and if worsening, decrease insulin Hypertension.? stable Hold antihypertensives to avoid hypotension in light of sepsis Mental health continue home medications DVT prophylaxis with heparin Attending Dr. Liz Full code Quality Stroke Does the patient have a stroke diagnosis?: No VTE Prior VTE?: No VTE Risk Level:: Medical - moderate - high VTE Device Contraindication: Treatment Not Indicated VTE Drug Contraindication: N/A - Med Ordered
[2021-10-13 10:01] LABS: PTT Heparin Drip 43.8 SEC (53-77.9)
[2021-10-13] MEDS: Heparin Sodium,Porcine/1/2NS 25,000 UNIT/250 ML IV.SOLN 15.73 UNIT IVCONT (10:16)
[2021-10-13] MEDS: Heparin Sodium,Porcine 5,000 UNIT/ML VIAL 3300 UNIT IVPUSH ×2 (10:16→17:46)
[2021-10-13 11:17] LABS: Glucose, Whole Blood 138 mg/dL (60-115)
--- NOTE | 2021-10-13 11:32 | MHC.CM.PN ---
CALL FROM [facility]. [facility] IS NO LONGER ABLE TO PROVIDE SERVICES
--- NOTE | 2021-10-13 12:24 | P.PNGS_ITS ---
Subjective Subjective Date of Service: 10/13/21 Interval history: feels well denies foot pain says she may be discharged tomorrow Physical Exam Vital Signs: Vital Signs: Last Vital Signs Temp 97 F 10/13/21 11:01 Pulse 77 10/13/21 11:01 Resp 20 10/13/21 11:01 BP 114/67 10/13/21 11:01 Pulse Ox 94 10/13/21 11:01 BMI result Body Mass Index 28.5 Const: General: comfortable and no acute distress Resp: Effort & Inspection: normal respiratory effort Extrem: Other: right TMA clean, some scabbing, dry, laterally; left big toe ulcer dry, no pus, no cellulitis Objective Data Active Medications Acetaminophen (Acetaminophen 325 Mg Tablet) 650 mg PO Q6H PRN PRN Reason: Pain, Mild (Pain Scale 1-3) Last Admin: 10/12/21 18:45 Dose: 650 mg Documented by: CARLO Alprazolam (Alprazolam 0.5 Mg Tablet) 1 mg PO DAILY PRN PRN Reason: Anxiety Alprazolam (Alprazolam 0.5 Mg Tablet) 2 mg PO BID [facility] Last Admin: 10/13/21 08:21 Dose: 2 mg Documented by: NNEKA Aspirin (Aspirin 81 Mg Tab.Chew) 81 mg PO DAILY [facility] Last Admin: 10/13/21 08:21 Dose: 81 mg Documented by: NNEKA Atorvastatin Calcium (Atorvastatin Calcium 40 Mg Tablet) 40 mg PO BEDTIME [facility] Last Admin: 10/12/21 21:42 Dose: 40 mg Documented by: CARLO Dextrose (Dextrose 50 % 25 Gm/50 Ml Vial) 25 gm IVPUSH Q15M PRN; Protocol PRN Reason: per Hypoglycemia Standing Ord. Gabapentin (Gabapentin 400 Mg Capsule) 400 mg PO QID [facility] Last Admin: 10/13/21 08:21 Dose: 400 mg Documented by: NNEKA Glucose (Glucose Gel 15 Gm Gel..Gram.) 15 gm PO Q15M PRN; Protocol PRN Reason: per Hypoglycemia Standing Ord. Heparin Sodium (Porcine) (Heparin Sodium,Porcine 5,000 Unit/Ml Vial) 3,300 unit 40 unit/kg (3300 unit) IVPUSH PROTOCOL BOLUS PRN; Protocol PRN Reason: 40 unit/kg - Heparin Protocol Last Admin: 10/13/21 10:16 Dose: 3,300 unit Documented by: NNEKA Heparin Sodium (Porcine) (Heparin Sodium,Porcine 5,000 Unit/Ml Vial) 6,600 unit 80 unit/kg (6600 unit) IVPUSH PROTOCOL BOLUS PRN; Protocol PRN Reason: 80 unit/kg - Heparin Protocol Last Admin: 10/12/21 12:39 Dose: 6,600 unit Documented by: NIC Vancomycin HCl 1,000 mg/ (Sodium Chloride) 270 mls @ 270 mls/hr IV Q24H [facility] Last Infusion: 10/12/21 21:46 Dose: 0 mls/hr Documented by: CARLO Sodium Chloride (Ns) 1,000 mls @ 100 mls/hr IVCONT .Q10H [facility] Last Admin: 10/13/21 08:20 Dose: 100 mls/hr Documented by: NNEKA Heparin Sodium/Sodium Chloride () 25,000 unit in 250 mls @ 0 mls/hr IVCONT .Q0M [facility]; Protocol Last Admin: 10/13/21 10:16 Dose: 19 units/kg/hr, 15.73 mls/hr Documented by: NNEKA Cosigned by: FREIDA Insulin Glargine (Insulin Glargine,Hum.Rec.Anlog 100 Unit/Ml 10 Ml Vial) 35 unit SUBCUT BEDTIME [facility] Last Admin: 10/12/21 21:50 Dose: 35 unit Documented by: CARLO Insulin Human Lispro (Insulin Lispro 100 Unit/Ml 3 Ml Vial) 0 unit SUBCUT QIDACHS [facility]; Protocol Last Admin: 10/13/21 11:19 Dose: Not Given Documented by: NNEKA Non-Admin Reason: No Insulin Coverage Lactic Acid (Ammonium Lactate 12 % Lotion 226 Gm Bottle) 1 appl TOPICAL BID [facility] ; Protocol Last Admin: 10/13/21 09:04 Dose: Not Given Documented by: NNEKA Non-Admin Reason: Patient Refused Methadone HCl (Methadone Hcl 20 Mg/2 Ml Oral.Conc) 30 mg PO DAILY [facility] Last Admin: 10/13/21 08:21 Dose: 30 mg Documented by: NNEKA Ondansetron HCl (Ondansetron Hcl 4 Mg/2 Ml Vial) 4 mg IVPUSH Q8H PRN PRN Reason: Nausea and Vomiting Pharmacy Consult (Consult Rx Vancomycin Dosing) 1 each MISCELLANE DAILY PRN PRN Reason: Consult order Sertraline HCl (Sertraline Hcl 100 Mg Tablet) 100 mg PO BID [facility] Last Admin: 10/13/21 08:26 Dose: Not Given Documented by: NNEKA Non-Admin Reason: Patient Refused Sodium Chloride (0.9 % Sodium Chloride Flush 3 Ml Syringe) 3 ml IVFLUSH QSHIFT [facility] Last Admin: 10/13/21 07:18 Dose: Not Given Documented by: NNEKA Non-Admin Reason: IV Running Labs CBC & Chem 7: 10/12/21 04:19 10/13/21 05:24 Labs: Laboratory Results - last 24 hr 10/12/21 10/12/21 10/12/21 15:49 18:45 19:47 aPTT Heparin Protocol 50.7 L D Anion Gap Estim Creat Clear Calc Estimated GFR POC Glucose 127 H 117 H Random Glucose Calcium 10/13/21 10/13/21 10/13/21 01:46 05:24 07:11 aPTT Heparin Protocol 97.9 H D Anion Gap 13 Estim Creat Clear Calc 67.5 Estimated GFR 53 POC Glucose 93 Random Glucose 58 L* Calcium 8.2 L 10/13/21 10/13/21 09:28 11:12 aPTT Heparin Protocol 43.8 L D Anion Gap Estim Creat Clear Calc Estimated GFR POC Glucose 138 H Random Glucose Calcium Microbiology Microbiology Results: Microbiology 10/11/21 13:12 Blood Culture - Preliminary Blood - Venous No growth after 24 hours. 10/11/21 12:39 Blood Culture - Preliminary Blood - Venous No growth after 24 hours. Procedures Date of Service Date of Service: 10/13/21 Progress Note: A&P Assessment and plan (1) S/P amputation of foot: Status: Acute Assessment and Plan: incision clean, healing well plan to dc sutures before she gets discharged no evidence of infection left big toe ulcer also clean Fall Risk Details Current Medications: Current Medications Acetaminophen (Acetaminophen 325 Mg Tablet) 650 mg PO Q6H PRN PRN Reason: Pain, Mild (Pain Scale 1-3) Last Admin: 10/12/21 18:45 Dose: 650 mg Documented by: Alprazolam (Alprazolam 0.5 Mg Tablet) 1 mg PO DAILY PRN PRN Reason: Anxiety Alprazolam (Alprazolam 0.5 Mg Tablet) 2 mg PO BID [facility] Last Admin: 10/13/21 08:21 Dose: 2 mg Documented by: Aspirin (Aspirin 81 Mg Tab.Chew) 81 mg PO DAILY [facility] Last Admin: 10/13/21 08:21 Dose: 81 mg Documented by: Atorvastatin Calcium (Atorvastatin Calcium 40 Mg Tablet) 40 mg PO BEDTIME [facility] Last Admin: 10/12/21 21:42 Dose: 40 mg Documented by: Dextrose (Dextrose 50 % 25 Gm/50 Ml Vial) 25 gm IVPUSH Q15M PRN; Protocol PRN Reason: per Hypoglycemia Standing Ord. Gabapentin (Gabapentin 400 Mg Capsule) 400 mg PO QID [facility] Last Admin: 10/13/21 08:21 Dose: 400 mg Documented by: Glucose (Glucose Gel 15 Gm Gel..Gram.) 15 gm PO Q15M PRN; Protocol PRN Reason: per Hypoglycemia Standing Ord. Heparin Sodium (Porcine) (Heparin Sodium,Porcine 5,000 Unit/Ml Vial) 3,300 unit 40 unit/kg (3300 unit) IVPUSH PROTOCOL BOLUS PRN; Protocol PRN Reason: 40 unit/kg - Heparin Protocol Last Admin: 10/13/21 10:16 Dose: 3,300 unit Documented by: Heparin Sodium (Porcine) (Heparin Sodium,Porcine 5,000 Unit/Ml Vial) 6,600 unit 80 unit/kg (6600 unit) IVPUSH PROTOCOL BOLUS PRN; Protocol PRN Reason: 80 unit/kg - Heparin Protocol Last Admin: 10/12/21 12:39 Dose: 6,600 unit Documented by: Vancomycin HCl 1,000 mg/ (Sodium Chloride) 270 mls @ 270 mls/hr IV Q24H [facility] Last Infusion: 10/12/21 21:46 Dose: Infused Documented by: Sodium Chloride (Ns) 1,000 mls @ 100 mls/hr IVCONT .Q10H [facility] Last Admin: 10/13/21 08:20 Dose: 100 mls/hr Documented by: Heparin Sodium/Sodium Chloride () 25,000 unit in 250 mls @ 0 mls/hr IVCONT .Q0M [facility]; Protocol Last Admin: 10/13/21 10:16 Dose: 19 units/kg/hr, 15.73 mls/hr Documented by: Insulin Glargine (Insulin Glargine,Hum.Rec.Anlog 100 Unit/Ml 10 Ml Vial) 35 unit SUBCUT BEDTIME [facility] Last Admin: 10/12/21 21:50 Dose: 35 unit Documented by: Insulin Human Lispro (Insulin Lispro 100 Unit/Ml 3 Ml Vial) 0 unit SUBCUT QIDACHS [facility]; Protocol Last Admin: 10/13/21 11:19 Dose: Not Given Documented by: Lactic Acid (Ammonium Lactate 12 % Lotion 226 Gm Bottle) 1 appl TOPICAL BID [facility]; Protocol Last Admin: 10/13/21 09:04 Dose: Not Given Documented by: Methadone HCl (Methadone Hcl 20 Mg/2 Ml Oral.Conc) 30 mg PO DAILY [facility] Last Admin: 10/13/21 08:21 Dose: 30 mg Documented by: Ondansetron HCl (Ondansetron Hcl 4 Mg/2 Ml Vial) 4 mg IVPUSH Q8H PRN PRN Reason: Nausea and Vomiting Pharmacy Consult (Consult Rx Vancomycin Dosing) 1 each MISCELLANE DAILY PRN PRN Reason: Consult order Sertraline HCl (Sertraline Hcl 100 Mg Tablet) 100 mg PO BID [facility] Last Admin: 10/13/21 08:26 Dose: Not Given Documented by: Sodium Chloride (0.9 % Sodium Chloride Flush 3 Ml Syringe) 3 ml IVFLUSH QSHIFT [facility] Last Admin: 10/13/21 07:18 Dose: Not Given Documented by: Time Spent With Patient Time: Total time spent is greater than 50% in coordination of care (as documented) at patient's floor/unit and/or counseling patient: Time with patient: 15 - 24 minutes Quality Stroke Does the patient have a stroke diagnosis?: No VTE Prior VTE?: No VTE Risk Level:: Medical - moderate - high VTE Device Contraindication: Treatment Not Indicated VTE Drug Contraindication: N/A - Med Ordered
--- NOTE | 2021-10-13 14:55 | PM.HEMONCCN ---
Subjective - Subjective Chief complaint: None reported Patient: new to practice Consult date: 10/13/21 Requesting Physician: Dr. Chaudhari Primary Care Provider: Nikhil Potts MD HPI - Consult Narrative Reason for consult: bilateral pulmonary emboli Narrative: Marilou Siddiqui is a 51 year old female who has been diagnosed with bilateral pulmonary emboli found to be unresponsive after having acute hypoxic respiratory failure. She did admit to snorting heroin before this happened. She was immobilized after recent amputation of her right foot secondary to osteomyelitis. She was also diagnosed with NSTMI, echocardiogram was done on 10/12/2020 which showed severely dilated right ventricle with akinesis, acute cor pulmonale. She underwent pulmonary perfusion study which revealed multifocal pulmonary emboli involving both lungs, largest in the Paykel segment of left lung and basal segments of right lung. She has been on anticoagulation with unfractionated heparin for her HI and this is being continued for her PE as well. Patient denies any past history of thromboembolism or family history. She denies any is swelling of either lower extremity or upper extremity. She is a chronic smoker but is trying to cut back. She did IV drugs in the remote past but not in over 20 years. She has not kept up with health maintenance, she has not had mammograms or screening colonoscopy. She has been depressed since the loss of her to brain cancer a year ago. Review of Systems - Constitutional Reports as per [facility] Medical History: Medical History (Last Reviewed 10/12/21 @ 16:12 by Delicia Syed MD) Anxiety Diabetes Substance abuse Family history: reviewed and not pertinent Surgical History: Surgical History (Last Updated 10/13/21 @ 12:26 by Kirill Muhammad MD) S/P amputation of foot Status post transmetatarsal amputation of right foot Onset Date: 09/24/21 Social History: Social History (Last Reviewed 10/12/21 @ 16:13 by Delicia Syed MD) Living Situation History: Household Members: Family Housing: Apartment Do you presently have visiting nurse or other home services: Yes Do you presently have visiting nurse or other home services comment: Supposed to but pt. went to hospital Alcohol History Details: 1. How often do you have a drink containing alcohol?: a. Never AUDIT-C Alcohol total score: 0 Currently Displaying Signs/Symptoms of Alcohol Withdrawal: No Tobacco History: Patient Tobacco Use Status: Current everyday Tobacco Tobacco use type: Cigarette Cigarette Packs Per Day: 1 Cigarettes Per Day: 20.0 Smoked in Last 30 Days: Yes Patient Interested in Nicotine Replacement: Yes Patient Given Instructions on How to Stop Smoking: No Second Hand Smoke Exposure: Yes Substance Use History: Use of substances other than those prescribed or required for medical reasons: Yes Substance Use Type: Heroin Substance Use Type: Opiates Substance Use Type: Prescription Drugs Substance Use Frequency: Chronic Longstanding Last Used Substance: Just Prior to Admission Currently Displaying Signs/Symptoms of Drug Intoxication Withdrawal: No Any prior treatment program specific to substance use: Yes Domestic Abuse History: Have you been hit, kicked, punched, or otherwise hurt by someone within the past year? If so, by whom?: No Do you feel safe in your current relationship?: No Current Relationship Is there a partner from a previous relationship who is making you feel unsafe now?: No Are you made to feel afraid or neglected: No Advance Directives: Advance Directives: No Advance Directives Information Provided: Yes Advance Directives on File: Yes Homicidal Assessment: Do you have thoughts of harming others: None Do you have a plan to hurt others: No Plan Nutrition Assessment: Recently lost weight without trying: No Eating poorly because of decreased appetite: No Nutrition Risks: No Nutritional Risk Patient : No : No Poor oral hygiene: Yes Occupation Assessmet: service: No Current occupational status: unemployed Home Medications and Allergies Current Medications: Current Medications Acetaminophen (Acetaminophen 325 Mg Tablet) 650 mg PO Q6H PRN PRN Reason: Pain, Mild (Pain Scale 1-3) Last Admin: 10/12/21 18:45 Dose: 650 mg Documented by: Alprazolam (Alprazolam 0.5 Mg Tablet) 1 mg PO DAILY PRN PRN Reason: Anxiety Alprazolam (Alprazolam 0.5 Mg Tablet) 2 mg PO BID [facility] Last Admin: 10/13/21 08:21 Dose: 2 mg Documented by: Aspirin (Aspirin 81 Mg Tab.Chew) 81 mg PO DAILY [facility] Last Admin: 10/13/21 08:21 Dose: 81 mg Documented by: Atorvastatin Calcium (Atorvastatin Calcium 40 Mg Tablet) 40 mg PO BEDTIME [facility] Last Admin: 10/12/21 21:42 Dose: 40 mg Documented by: Dextrose (Dextrose 50 % 25 Gm/50 Ml Vial) 25 gm IVPUSH Q15M PRN; Protocol PRN Reason: per Hypoglycemia Standing Ord. Gabapentin (Gabapentin 400 Mg Capsule) 400 mg PO QID [facility] Last Admin: 10/13/21 12:45 Dose: 400 mg Documented by: Glucose (Glucose Gel 15 Gm Gel..Gram.) 15 gm PO Q15M PRN; Protocol PRN Reason: per Hypoglycemia Standing Ord. Heparin Sodium (Porcine) (Heparin Sodium,Porcine 5,000 Unit/Ml Vial) 3,300 unit 40 unit/kg (3300 unit) IVPUSH PROTOCOL BOLUS PRN; Protocol PRN Reason: 40 unit/kg - Heparin Protocol Last Admin: 10/13/21 10:16 Dose: 3,300 unit Documented by: Heparin Sodium (Porcine) (Heparin Sodium,Porcine 5,000 Unit/Ml Vial) 6,600 unit 80 unit/kg (6600 unit) IVPUSH PROTOCOL BOLUS PRN; Protocol PRN Reason: 80 unit/kg - Heparin Protocol Last Admin: 10/12/21 12:39 Dose: 6,600 unit Documented by: Vancomycin HCl 1,000 mg/ (Sodium Chloride) 270 mls @ 270 mls/hr IV Q24H [facility] Last Infusion: 10/12/21 21:46 Dose: Infused Documented by: Sodium Chloride (Ns) 1,000 mls @ 100 mls/hr IVCONT .Q10H [facility] Last Admin: 10/13/21 08:20 Dose: 100 mls/hr Documented by: Heparin Sodium/Sodium Chloride () 25,000 unit in 250 mls @ 0 mls/hr IVCONT .Q0M [facility]; Protocol Last Admin: 10/13/21 10:16 Dose: 19 units/kg/hr, 15.73 mls/hr Documented by: Insulin Glargine (Insulin Glargine,Hum.Rec.Anlog 100 Unit/Ml 10 Ml Vial) 35 unit SUBCUT BEDTIME [facility] Last Admin: 10/12/21 21:50 Dose: 35 unit Documented by: Insulin Human Lispro (Insulin Lispro 100 Unit/Ml 3 Ml Vial) 0 unit SUBCUT QIDACHS [facility], [facility]; Protocol Last Admin: 10/13/21 11:19 Dose: Not Given Documented by: Lactic Acid (Ammonium Lactate 12 % Lotion 226 Gm Bottle) 1 appl TOPICAL BID [facility]; Protocol Last Admin: 10/13/21 09:04 Dose: Not Given Documented by: Methadone HCl (Methadone Hcl 20 Mg/2 Ml Oral.Conc) 30 mg PO DAILY [facility] Last Admin: 10/13/21 08:21 Dose: 30 mg Documented by: Ondansetron HCl (Ondansetron Hcl 4 Mg/2 Ml Vial) 4 mg IVPUSH Q8H PRN PRN Reason: Nausea and Vomiting Pharmacy Consult (Consult Rx Vancomycin Dosing) 1 each MISCELLANE DAILY PRN PRN Reason: Consult order Sertraline HCl (Sertraline Hcl 100 Mg Tablet) 100 mg PO BID [facility] Last Admin: 10/13/21 08:26 Dose: Not Given Documented by: Sodium Chloride (0.9 % Sodium Chloride Flush 3 Ml Syringe) 3 ml IVFLUSH QSHIFT [facility] Last Admin: 10/13/21 07:18 Dose: Not Given Documented by: Home Medications Medication Instructions Recorded Confirmed Type alprazolam 2 mg tablet 1 mg PO DAILY PRN 09/21/21 10/11/21 History alprazolam 2 mg tablet 2 mg PO BID 09/21/21 10/11/21 History gabapentin 400 mg capsule 400 mg PO QID 09/21/21 10/11/21 History insulin glargine 100 unit/mL (3 35 unit SUBCUT BEDTIME 09/21/21 10/11/21 History mL) subcutaneous pen (Lantus Solostar U-100 Insulin) sertraline 100 mg tablet 1 tab PO BID 09/21/21 10/11/21 History methadone 10 mg/mL oral concentrate 30 mg PO DAILY 10/12/21 10/12/21 History Allergies Allergy/AdvReac Type Severity Reaction Status Date / Time prednisone [PREDNISONE] Allergy Unknown RASH Verified 09/24/21 11:47 Physical Exam Vital signs: Vital Signs Temp 97 F 10/13/21 11:01 Pulse 77 10/13/21 11:01 Resp 20 10/13/21 11:01 BP 114/67 10/13/21 11:01 Pulse Ox 94 10/13/21 11:01 Intake & Output 10/12/21 10/13/21 10/13/21 18:59 06:59 18:59 Intake Total 1010.029 / 3278.060 2268.031 / 3278.060 1411.969 / 1411.969 Output Total 400 / 400 Balance 1010.029 / 3277.060 2267.031 / 3277.060 1011.969 / 1011.969 Urine Output (Average ml/kg/hr) 0.40 Intake: Intake, Oral Amount 840 / 1680 840 / 1680 320 / 320 Intake, IV Amount 170.029 / 6164.930 6025.031 / 6000.231 5315.969 / 1091.969 vancomycin HCL 1,000 mg In 0.9 270 / 270 % Sodium Chloride 250 ml @ 270 mls/hr IV Q24H [facility] Rx#: [id number] 0.9 % Sodium Chloride 1,000 ml 1000 / 1000 1000 / 1000 @ 100 mls/hr IVCONT .Q10H [facility] Rx#:[id number] Heparin Sodium,Porcine/1/2NS 25 170.029 / 328.060 158.031 / 328.060 91.969 / 91.969 ,000 unit In 250 ml @ Per Protocol IVCONT .Q0M [facility] Rx#: [id number] Output: Output, Urine Amount 400 / 400 Output, Stool Amount 1 / 1 Other: Meal Refused No No NPO No No Breakfast % Eaten 25% 50% Lunch % Eaten 75% 50% Dinner % Eaten 100% Number of Incontinent Voids 2 1 Number of Unmeasured Voids 2 Number of Bowel Movements 1 1 Urine Bathroom Bedpan Urine Color Yellow Yellow Yellow Last Bowel Movement 10/12/21 10/12/21 10/13/21 Stool Bedpan Incontinent Incontinent Stool Amount Large Moderate Moderate Stool Color Brown Brown Dark Brown Stool Consistency Mushy Mushy Watery Weight 82.8 kg - Constitutional Present: no acute distress - Routine HEENT Exam Eye: Present: EOMI, conjunctivae pale - Routine Neck Exam Present: supple. Absent: lymphadenopathy - Routine Respiratory Exam Absent: rhonchi, stridor - Routine Cardiovascular Exam Cardiovascular: Present: S1, S2 - Routine Abdominal Exam Present: soft - Routine Extremities Exam Absent: pedal edema - Routine Skin Exam Present: intact. Absent: cyanosis Hem/Onc Consult Result - Labs CBC & Chem 7: 10/12/21 04:19 10/13/21 05:24 Labs: BMP 10/13/21 05:24 Sodium 139 Potassium 3.9 Chloride 110 H Carbon Dioxide 20 L BUN 26 H Creatinine 1.09 Calcium 8.2 L Assessment and Plan Patient Active problem list reviewed?: Yes (1) Pulmonary embolism Status: Acute Assessment and plan: 1. This is a 51-year-old woman diagnosed with bilateral pulmonary emboli, non STEMI who is currently on unfractionated heparin. She has been nonambulatory after recent right foot amputation for osteomyelitis. Cardiac echo showed dilated right ventricle, acute cor pulmonale. She is a chronic smoker, recent relapse of heroin use intranasally. No personal history of previous thromboembolism. I would recommend bilateral lower extremity Dopplers as part of workup. Thrombophilia workup is not necessary. She can be switched to oral anticoagulation at this time as hypoxia has resolved. It would be prudent to keep her hemoglobin above 8 gram/dL before sending her home on anticoagulants. I have advised patient about smoking cessation and abstaining from drug use. 2. Anemia, probably multifactorial. Acute kidney injury is improving. Iron studies, vitamin B12, folate levels are pending. I thank you for this consultation. - Time Spent With Patient Time Spent with Patient (in minutes): 20
[2021-10-13 15:27] LABS: Iron 40 mcg/dL (30-160)
[2021-10-13 15:39] LABS: Percent Iron Saturation 17 % (15-50); Total Iron Binding Capacity 231 mcg/dL (228-428); Unsaturated Iron Binding 191 ug/dL
[2021-10-13 16:06] LABS: Folate 1.7 ng/mL (> or = 4.0); Vitamin B12 272 pg/mL (200-900)
[2021-10-13 17:05] LABS: Glucose, Whole Blood 105 mg/dL (60-115)
[2021-10-13 17:28] LABS: PTT Heparin Drip 46.4 SEC (53-77.9)
[2021-10-13 17:36] LABS: Vancomycin Trough 13.2 mcg/mL (10.0-20.0)
[2021-10-13] MEDS: vancomycin HCL 1,000 MG in 0.9 % Sodium Chloride 250 ML 270 MG IV (17:52)
[2021-10-13 20:06] LABS: Glucose, Whole Blood 105 mg/dL (60-115)
[2021-10-13] MEDS: Acetaminophen 325 MG TABLET 650 MG PO (20:27)
[2021-10-13] MEDS: Atorvastatin Calcium 40 MG TABLET PO (20:28)
[2021-10-13] MEDS: Ammonium Lactate 12 % Lotion 226 GM BOTTLE 1 APPL TOPICAL (20:37)
[2021-10-14 00:08] LABS: PTT Heparin Drip 50.5 SEC (53-77.9)
[2021-10-14] MEDS: Heparin Sodium,Porcine 5,000 UNIT/ML VIAL 3300 UNIT IVPUSH (00:58)
[2021-10-14] MEDS: Heparin Sodium,Porcine/1/2NS 25,000 UNIT/250 ML IV.SOLN 20.7 UNIT IVCONT (00:59)
[2021-10-14 04:00] VITALS: BP 133/73; PULSE 68; RESP 14; TEMP 36.3; O2SAT 97
[2021-10-14] MEDS: 0.9 % Sodium Chloride 1,000 ML 100 ML IVCONT ×2 (06:35→17:53)
[2021-10-14 07:29] LABS: PTT Heparin Drip 112.3 SEC (53-77.9)
[2021-10-14 07:39] VITALS: BP 157/86; PULSE 67; RESP 18; TEMP 36.2; O2SAT 98
[2021-10-14 07:49] LABS: Glucose, Whole Blood 96 mg/dL (60-115)
[2021-10-14 07:56] LABS: Hematocrit 30.5 % (37.0-47.0); Hemoglobin 8.9 g/dl (12.0-16.0); Mean Corpuscular HGB Conc 29.2 g/dl (31.0-35.0); Mean Corpuscular Hemoglobin 26.7 pg (27.0-33.0); Mean Corpuscular Volume 91.6 fL (80.0-98.0); Mean Platelet Volume 10.2 fL (9.4-12.3); Red Blood Count 3.33 X10*6/uL (4.20-5.50); Red Cell Distribution Width 15.5 % (11.0-16.0); White Blood Count 7.5 X10*3/uL (4.8-10.8)
[2021-10-14 08:03] LABS: Platelet Count 181 X10*3/uL (160-400)
[2021-10-14 08:05] LABS: Anion Gap 15 (12-20); Blood Urea Nitrogen 21 mg/dL (9-16); Calcium 8.5 mg/dL (8.4-10.2); Carbon Dioxide 18 mmol/L (22-29); Chloride 109 mmol/L (96-108); Creatinine Clr Calc Pharmacy 70.7; Estimated Glomerular Filt Rate 56; Glucose Random 93 mg/dL (60-115); Potassium 4.4 mmol/L (3.3-5.1); Sodium 138 mmol/L (135-145)
[2021-10-14] MEDS: methADONE HCl 20 MG/2 ML ORAL.CONC 30 MG PO (09:11)
[2021-10-14] MEDS: Aspirin 81 MG TAB.CHEW PO (09:11)
[2021-10-14] MEDS: ALPRAZolam 0.5 MG TABLET 2 MG PO ×2 (09:11→20:48)
[2021-10-14] MEDS: Folic Acid 1 MG TABLET PO (09:14)
[2021-10-14 09:18] LABS: PTT Heparin Drip 42.6 SEC (53-77.9)
[2021-10-14] MEDS: Gabapentin 400 MG CAPSULE PO ×4 (11:03→20:48)
[2021-10-14] MEDS: Ammonium Lactate 12 % Lotion 226 GM BOTTLE 1 APPL TOPICAL ×2 (11:04→20:55)
[2021-10-14 11:39] VITALS: BP 171/88; PULSE 79; RESP 18; TEMP 37.2; O2SAT 95
[2021-10-14 11:52] LABS: Glucose, Whole Blood 144 mg/dL (60-115)
--- NOTE | 2021-10-14 12:47 | MHC.CM.PN ---
ADDITIONAL VNA REFERRALS PLACED. PLAN IS DC TOMORROW IF NO VNA CAN BE FOUND, PATIENT TO DO HER OWN WOUND CARE AND FOLLOW UP WITH PHYSICAL THERAPY OUTPATIENT
[2021-10-14 15:01] VITALS: BP 138/85; PULSE 75; RESP 18; TEMP 36.7; O2SAT 94
--- NOTE | 2021-10-14 15:47 | MHC.RECOVRN ---
Met with pt this morning to f/u and assess for withdrawal. Pt awake in bed, alert, easily engaged in conversation. Pt reporting GI upset, diarrhea, anxiety. Pt would like to increase methadone. Pt was provided with [facility] phone number as pt was instructed PCP must do PT-1 for OTP. Pt encouraged to call while in the hospital to initiate the process. Pt denies other concerns at this time. Discussed with Bev Salazar APRN.
--- NOTE | 2021-10-14 16:26 | HO.PM.IMPN ---
Subjective Subjective Date of Service: 10/14/21 Interval History: seen and examined this morning denies sob, chest pain no pain in right leg Review of Systems Review of Systems: Yes all other systems are reviewed and are negative Constitutional Constitutional: Denies chills and Denies fever(s) Cardiovascular Cardiovascular: Denies chest pain and Denies dyspnea Respiratory Respiratory: Denies dyspnea Physical Exam Vital Signs: Vital Signs: Last Vital Signs Temp 98.1 F 10/14/21 15:01 Pulse 75 10/14/21 15:01 Resp 18 10/14/21 15:01 BP 138/85 10/14/21 15:01 Pulse Ox 94 10/14/21 15:01 BMI result Body Mass Index 28.5 Const: General: cooperative, healthy appearing, no acute distress, alert and awake Nutritional Appearance: overweight Resp: Effort & Inspection: normal respiratory effort and able to speak in complete sentences Cardio: Rate: regular rate Heart sounds: S1 normal heart sound present and S2 normal heart sound present GI: Inspection: No distended Palpation (GI): Soft to palpation and nontender Skin: Other: right foot; left great toe clean dry intact dressings Extrem: Other: s/p right transmetatarsal amputation, no leg edema Objective Data Active Medications Acetaminophen (Acetaminophen 325 Mg Tablet) 650 mg PO Q6H PRN PRN Reason: Pain, Mild (Pain Scale 1-3) Last Admin: 10/13/21 20:27 Dose: 650 mg Documented by: CLIFF Alprazolam (Alprazolam 0.5 Mg Tablet) 1 mg PO DAILY PRN PRN Reason: Anxiety Alprazolam (Alprazolam 0.5 Mg Tablet) 2 mg PO BID [facility] Last Admin: 10/14/21 09:11 Dose: 2 mg Documented by: YOBANI Apixaban (Apixaban 5 Mg Tablet) 10 mg PO BID [facility] Stop: 10/21/21 18:59 Aspirin (Aspirin 81 Mg Tab.Chew) 81 mg PO DAILY [facility] Last Admin: 10/14/21 09:11 Dose: 81 mg Documented by: YOBANI Atorvastatin Calcium (Atorvastatin Calcium 40 Mg Tablet) 40 mg PO BEDTIME [facility] Last Admin: 10/13/21 20:28 Dose: 40 mg Documented by: CLIFF Dextrose (Dextrose 50 % 25 Gm/50 Ml Vial) 25 gm IVPUSH Q15M PRN; Protocol PRN Reason: per Hypoglycemia Standing Ord. Folic Acid (Folic Acid 1 Mg Tablet) 1 mg PO DAILY [facility] Last Admin: 10/14/21 09:14 Dose: 1 mg Documented by: YOBANI Gabapentin (Gabapentin 400 Mg Capsule) 400 mg PO QID [facility] Last Admin: 10/14/21 13:17 Dose: 400 mg Documented by: YOBANI Glucose (Glucose Gel 15 Gm Gel..Gram.) 15 gm PO Q15M PRN; Protocol PRN Reason: per Hypoglycemia Standing Ord. Heparin Sodium (Porcine) (Heparin Sodium,Porcine 5,000 Unit/Ml Vial) 3,300 unit 40 unit/kg (3300 unit) IVPUSH PROTOCOL BOLUS PRN; Protocol PRN Reason: 40 unit/kg - Heparin Protocol Last Admin: 10/14/21 00:58 Dose: 3,300 unit Documented by: CLIFF Heparin Sodium (Porcine) (Heparin Sodium,Porcine 5,000 Unit/Ml Vial) 6,600 unit 80 unit/kg (6600 unit) IVPUSH PROTOCOL BOLUS PRN; Protocol PRN Reason: 80 unit/kg - Heparin Protocol Last Admin: 10/12/21 12:39 Dose: 6,600 unit Documented by: NIC Vancomycin HCl 1,000 mg/ (Sodium Chloride) 270 mls @ 270 mls/hr IV Q24H [facility] Last Infusion: 10/13/21 21:07 Dose: 270 mls/hr Documented by: CLIFF Sodium Chloride (Ns) 1,000 mls @ 100 mls/hr IVCONT .Q10H [facility] Last Admin: 10/14/21 06:35 Dose: 100 mls/hr Documented by: CLIFF Heparin Sodium/Sodium Chloride () 25,000 unit in 250 mls @ 0 mls/hr IVCONT .Q0M [facility]; Protocol Stop: 10/14/21 19:00 Last Titration: 10/14/21 10:32 Dose: 21 units/kg/hr, 17.39 mls/hr Documented by: ADRIANA Cosigned by: FREIDA Insulin Glargine (Insulin Glargine,Hum.Rec.Anlog 100 Unit/Ml 10 Ml Vial) 35 unit SUBCUT BEDTIME [facility] Last Admin: 10/13/21 20:38 Dose: Not Given Documented by: CLIFF Non-Admin Reason: pt is not eating much Insulin Human Lispro (Insulin Lispro 100 Unit/Ml 3 Ml Vial) 0 unit SUBCUT QIDACHS [facility]; Protocol Last Admin: 10/14/21 11:55 Dose: Not Given Documented by: YOBANI Non-Admin Reason: No Insulin Coverage Lactic Acid (Ammonium Lactate 12 % Lotion 226 Gm Bottle) 1 appl TOPICAL BID [facility]; Protocol Last Admin: 10/14/21 11:04 Dose: 1 appl Documented by: YOBANI Methadone HCl (Methadone Hcl 20 Mg/2 Ml Oral.Conc) 35 mg PO DAILY [facility] Ondansetron HCl (Ondansetron Hcl 4 Mg/2 Ml Vial) 4 mg IVPUSH Q8H PRN PRN Reason: Nausea and Vomiting Pharmacy Consult (Consult Rx Vancomycin Dosing) 1 each MISCELLANE DAILY PRN PRN Reason: Consult order Sertraline HCl (Sertraline Hcl 100 Mg Tablet) 100 mg PO BID [facility] Last Admin: 10/14/21 11:04 Dose: Not Given Documented by: YOBANI Non-Admin Reason: Patient Refused Sodium Chloride (0.9 % Sodium Chloride Flush 3 Ml Syringe) 3 ml IVFLUSH QSHIFT [facility] Last Admin: 10/14/21 10:01 Dose: Not Given Documented by: ADRIANA Non-Admin Reason: IV Running Labs CBC & Chem 7: 10/14/21 07:46 10/14/21 07:46 Labs: Laboratory Results - last 24 hr 10/13/21 10/13/21 10/13/21 16:58 17:07 17:07 MCV MCH MCHC RDW Plt Count MPV Absolute Nucleated RBC Nucleated RBC % (auto) aPTT Heparin Protocol 46.4 L Anion Gap Estim Creat Clear Calc Estimated GFR POC Glucose 105 Random Glucose Calcium Vancomycin Trough 13.2 10/13/21 10/13/21 10/14/21 19:58 23:51 06:22 MCV MCH MCHC RDW Plt Count MPV Absolute Nucleated RBC Nucleated RBC % (auto) aPTT Heparin Protocol 50.5 L 112.3 H* D Anion Gap Estim Creat Clear Calc Estimated GFR POC Glucose 105 Random Glucose Calcium Vancomycin Trough 10/14/21 10/14/21 10/14/21 07:38 07:46 07:46 MCV 91.6 D MCH 26.7 L MCHC 29.2 L RDW 15.5 Plt Count 181 D MPV 10.2 Absolute Nucleated RBC 0.000 Nucleated RBC % (auto) 0.0 aPTT Heparin Protocol Anion Gap 15 Estim Creat Clear Calc 70.7 Estimated GFR 56 POC Glucose 96 Random Glucose 93 Calcium 8.5 Vancomycin Trough 10/14/21 10/14/21 09:02 11:42 MCV MCH MCHC RDW Plt Count MPV Absolute Nucleated RBC Nucleated RBC % (auto) aPTT Heparin Protocol 42.6 L D Anion Gap Estim Creat Clear Calc Estimated GFR POC Glucose 144 H Random Glucose Calcium Vancomycin Trough Microbiology Microbiology Results: Microbiology 10/11/21 13:12 Blood Culture - Preliminary Blood - Venous No growth after 48 hours. 10/11/21 12:39 Blood Culture - Preliminary Blood - Venous No growth after 48 hours. Assessment and Plan (1) Pulmonary embolism: Status: Acute (2) DVT (deep venous thrombosis): Status: Acute Plan 51/F with chronic opioid use desorder? recent TMA of? right? from osteo and active osteomylitis on left foot, presented following overdose episode and noted to be hypoxic and subsequent work up has revealed NSTEMI and Bilaterl PEs Pulmonary embolism/RLE EVT secondary to recent surgery and resulting immobility/recent hospitalization US + for extensive RLE DVT as well initially treated with heparin, will transition to eliquis Seen by Hematology, no further inpatient workup; rec AC x 6 months Acute hypoxic respiratory failure due to PE, and overdose, resolved, on room air now NSTEMI Elevated troponin likely related to PE however when medically stable from PE standpoint should consider ischemic work up on outpatient basis medical therapy with ASA, statin?and BB as well Severe sepsis secondary to acute on chronic osteomyelitis--sepsis resovled. -ID is recommending oral Zyvox as not candidate for IV antibiotics d/t ongoing drug abuse and high likelyhood to use drug through IV. Prior attempt to send to rehab also unsuccessful as facility unwilling to take? due to ongoing drug use even in the hospital and being found with multiple bags of heroin during last hospitalization and current hospitalization as well Overdose, chronic opioid dependence -continue Methadone, addiction med uptitrating BERNABE.?Resolved. Status post TMA Wound care nurse consult Lac-Hydrin for dry skin Gen surg following no debridement required Diabetes ss, ada diet lantus hypoglycemia yesterday, resolved and monitor and if worsening, decrease insulin Hypertension.? stable Hold antihypertensives to avoid hypotension in light of sepsis Mental health continue home medications DVT prophylaxis with heparin Attending Dr. Liz Full code Pt requires ongoing inpatient care due to IV AC, wound care and disposition planning Quality Stroke Does the patient have a stroke diagnosis?: No VTE Prior VTE?: No VTE Risk Level:: Medical - moderate - high VTE Device Contraindication: Treatment Not Indicated VTE Drug Contraindication: N/A - Med Ordered
[2021-10-14 16:45] LABS: Glucose, Whole Blood 119 mg/dL (60-115)
[2021-10-14 17:27] LABS: PTT Heparin Drip 53.1 SEC (53-77.9)
[2021-10-14 17:43] LABS: Troponin-I High Sensitivity 267.8 ng/L (<3.5-17.0)
[2021-10-14] MEDS: Heparin Sodium,Porcine/1/2NS 25,000 UNIT/250 ML IV.SOLN 17.39 UNIT IVCONT (17:49)
[2021-10-14] MEDS: vancomycin HCL 1,000 MG in 0.9 % Sodium Chloride 250 ML 270 MG IV (17:52)
[2021-10-14 19:29] VITALS: BP 137/93; PULSE 77; RESP 16; TEMP 36.4; O2SAT 95
[2021-10-14] MEDS: Atorvastatin Calcium 40 MG TABLET PO (20:48)
[2021-10-14] MEDS: Apixaban 5 MG TABLET 10 MG PO (20:48)
[2021-10-14] MEDS: Sertraline HCL 100 MG TABLET PO (20:48)
[2021-10-14] MEDS: Insulin Glargine,Hum.rec.anlog 100 UNIT/ML 10 ML VIAL 35 UNIT SUBCUT (20:49)
[2021-10-14 23:53] VITALS: BP 143/80; PULSE 69; RESP 16; TEMP 36.9; O2SAT 96
[2021-10-15 01:00] LABS: Glucose, Whole Blood 136 mg/dL (60-115)
[2021-10-15 01:04] LABS: PTT Heparin Drip 58.2 SEC (53-77.9)
[2021-10-15 03:25] VITALS: BP 150/83; PULSE 73; RESP 16; TEMP 36.9; O2SAT 95
[2021-10-15 06:41] LABS: Anion Gap 12 (12-20); Blood Urea Nitrogen 21 mg/dL (9-16); Calcium 8.5 mg/dL (8.4-10.2); Carbon Dioxide 22 mmol/L (22-29); Chloride 109 mmol/L (96-108); Creatinine Clr Calc Pharmacy 78.3; Estimated Glomerular Filt Rate > 60; Glucose Random 137 mg/dL (60-115); Sodium 139 mmol/L (135-145)
[2021-10-15 07:35] VITALS: BP 156/85; PULSE 71; RESP 18; TEMP 36.9; O2SAT 97
[2021-10-15 07:40] LABS: Glucose, Whole Blood 130 mg/dL (60-115)
[2021-10-15] MEDS: methADONE HCl 20 MG/2 ML ORAL.CONC 35 MG PO (08:15)
[2021-10-15] MEDS: Gabapentin 400 MG CAPSULE PO ×2 (08:16→12:21)
[2021-10-15] MEDS: ALPRAZolam 0.5 MG TABLET 2 MG PO (08:16)
[2021-10-15] MEDS: Apixaban 5 MG TABLET 10 MG PO (08:17)
[2021-10-15] MEDS: Aspirin 81 MG TAB.CHEW PO (08:17)
[2021-10-15] MEDS: Folic Acid 1 MG TABLET PO (08:17)
[2021-10-15] MEDS: Ammonium Lactate 12 % Lotion 226 GM BOTTLE 1 APPL TOPICAL (08:18)
[2021-10-15] MEDS: lisinopriL 5 MG TABLET PO (08:43)
[2021-10-15] MEDS: amLODIPine Besylate 10 MG TABLET PO (08:43)
--- NOTE | 2021-10-15 10:24 | MHC.CM.PN ---
Addendum entered by Kelsie Guillen 10/15/21 11:46: correction: PCP visit is 10/25/21 Original Note: PATIENT IS AWARE THAT NO VNA REFERRAL IS OFFERING SERVICES. SHE WILL NEED TO PERFORM HER OWN DRESSING CHANGES PATIENT TELLS THIS DENTAL LABORATORY TECHNICIAN THAT SHE IS NOT HOME-BOUND. SHE REPORTS THAT STARTING Monday10/18/21, SHE WILL HAVE PT-1 BENEFITS TO AND FROM [facility]. SHE HAS A VIRTUAL APPOINTMENT WITH HER THERAPIST SCHEDULED FOR NEXT WEEK, AND A FOLLOW UP PCP VISIT ON 10/24/21 @ [id number]
--- NOTE | 2021-10-15 10:27 | P.DS_ITS ---
DS: Providers Provider Date of Service: 10/15/21 Date of admission: 10/11/21 16:45 Date of discharge: 10/15/21 Primary care physician: Nikhil Potts MD Consults: 10/11/21 16:42 Consult to Infectious Diseases Routine Consulting Provider: Delicia Syed Reason for consultation: Osteomyelitis Has provider been notified: No 10/11/21 17:15 Consult to General Surgery Routine Consulting Provider: Kirill Muhammad Reason for consultation: right foot TMA, ? debridement Has provider been notified: No 10/13/21 11:54 Consult to Hematology / Oncology Routine Consulting Provider: Kay Ortiz Reason for consultation: PE, advise on further work and anticoagulation Has provider been notified: No Attending physician on discharge: Oscar Liz Discharging clinician: Shaina Burt DS: Diagnosis Discharge Diagnosis (1) Acute respiratory failure with hypoxia: Status: Acute (2) Pulmonary embolism: Status: Acute (3) DVT (deep venous thrombosis): Status: Acute (4) NSTEMI (non-ST elevated myocardial infarction): Status: Acute (5) Osteomyelitis: Status: Acute (6) Acute kidney injury: Status: Acute DS: Summary Hospital Course Hospital Course: From H&P on day of admission 51-year-old woman admitted after possible overdose.? Apparently family found her gasping.? Patient does use heroin cocaine, Ativan, methadone.? Her urine toxicology was possible all and fentanyl.? She denied.? However in the ER they found several bags of heroin in her clothes and she denied that they were hers.? She was recently discharged from [facility] and at that time underwent right foot TMA.? She currently has osteomyelitis of the left great toe and was sent home on Levaquin and Zyvox however according to the pharmacy the patient had not picked up the Zyvox and had only been taking the Levaquin.? She presented with severe sepsis to the ER.? She was given Narcan after the overdose as she was noted to be hypoxic as well and was placed on oxygen. Her troponin trended up significantly from 212-1550 patient started on IV heparin drip, aspirin and statin.? She did complain of any chest pain and EKG did showed new right bundle branch block with no acute ischemic changes.? In the ER she was given a dose of Zosyn, vancomycin.? To be admitted for further management and treatment of severe sepsis secondary to osteomyelitis, continued and NSTEMI. Pulmonary embolism/RLE EVT. VQ scan revealed multifocal pulmonary emboli involving both lungs. US + for extensive RLE DVT as well. secondary to recent surgery and resulting immobility/recent hospitalization. She was initially treated with heparin, which was then transitioned to eliquis once patient was no longer requiring supplemental oxygen. She was seen in consultation by Hematology, no further inpatient workup was required recommended anticoagulation x 6 months. She will be discharged home with Eliquis 10 mg b.i.d. to complete 7 days total )6 more days) followed by 5 mg bid. Acute hypoxic respiratory failure. Secondary to PE and overdose, she initially required supplemental oxygen but has been able to be weaned down to room air. NSTEMI. Troponin trended up from 212 to 1550 where it peaked and trended back down. She did not have any chest pain. Elevated troponin likely related to demand from PE. She underwent echocardiogram which showed changes concerning for underlying PE. Can consider ischemic work up on outpatient basis. Severe sepsis ruled out. Initially thought to have sepsis secondary to secondary to acute on chronic osteomyelitis- Her leukocytosis, tachycardia and lactic acidosis resolved. Likely her tachycardia was related to plan the, lactic acidosis from hypoxia. No evidence of acute infection was found. She was seen in consultation by ID, who recommended to continue Zyvox for her previously diagnosed osteomyelitis of the great toe with end date of November 05. Drug Overdose, opioid use disorder. Patient was seen by addiction medicine. She was continued on her home methadone which is been up titrated to 35 mg daily. Her last dose was given on the day of discharge, 10/15/21 Chronic osteomyelitis of left foot. She was seen in consultation by Infectious Diseases who recommended to continue Zyvox which she was previously discharged from the hospital with with end date of November 05 as above. Wound care. Patient has left great toe dry ulcer/osteomyelitis as well as right transmetatarsal amputation. She was seen in consultation by General surgery as well as wound care. She should continue daily dressing changes as documented discharge instructions. She should follow up with wound care as well as General surgery as instructed on last admission. Unfortunately she is unable to have resumption of visiting services at home and was instructed on how to change dressings. She should follow up with PCP to organized for outpatient physical therapy. Time Spent with Patient Time attestation: Total time spent providing and/or coordinating discharge services: Discharge coordination time: Greater than 30 minutes Quality: Stroke Does the patient have a stroke diagnosis?: No Physical Exam Vital Signs: Vital Signs: Last Vital Signs Temp 98.5 F 10/15/21 07:35 Pulse 71 10/15/21 07:35 Resp 18 10/15/21 07:35 BP 156/85 H 10/15/21 07:35 Pulse Ox 97 10/15/21 07:35 BMI result Body Mass Index 28.5 Const: General: healthy appearing, comfortable, no acute distress, alert and awake Nutritional Appearance: overweight Resp: Effort & Inspection: normal respiratory effort and able to speak in complete sentences Cardio: Rhythm: regular rhythm Heart sounds: S1 normal heart sound present and S2 normal heart sound present GI: Inspection: No distended Palpation (GI): Soft to palpation and nontender Extrem: Other: right foot s/p transmetatarsal amputation, wrapped in clean dry intact dressing; left great toe wrapped in clean dry dressing DS: Data Data Completed and Pending Completed studies during hospitalization [Text1]: Procedures Detachment at Right 1st Toe, Mid, Open Approach (09/21/21) Detachment at Right 2nd Toe, Mid, Open Approach (09/21/21) Excision of Right Foot Subcutaneous Tissue and Fascia, Open Approach (09/21/21) Insertion of Infusion Device into Left External Jugular Vein, Percutaneous Approach (09/21/21) Insertion of Infusion Device into Superior Vena Cava, Percutaneous Approach (09/21/21) Labs on day of discharge: Laboratory Results - last 24 hr 10/14/21 10/14/21 10/14/21 11:42 16:35 17:13 aPTT Heparin Protocol 53.1 D Sodium Potassium Chloride Carbon Dioxide Anion Gap BUN Creatinine Estim Creat Clear Calc Estimated GFR POC Glucose 144 H 119 H Random Glucose Calcium Troponin I High Sens 10/14/21 10/14/21 10/15/21 17:13 19:32 00:48 aPTT Heparin Protocol 58.2 Sodium Potassium Chloride Carbon Dioxide Anion Gap BUN Creatinine Estim Creat Clear Calc Estimated GFR POC Glucose 136 H Random Glucose Calcium Troponin I High Sens 267.8 H* D 10/15/21 10/15/21 06:07 07:33 aPTT Heparin Protocol Sodium 139 Potassium 4.0 Chloride 109 H Carbon Dioxide 22 Anion Gap 12 BUN 21 H Creatinine 0.94 Estim Creat Clear Calc 78.3 Estimated GFR > 60 POC Glucose 130 H Random Glucose 137 H Calcium 8.5 Troponin I High Sens Preliminary micro results at discharge 10/11/21 13:12 Blood Culture - Preliminary Blood - Venous No growth after 48 hours. 10/11/21 12:39 Blood Culture - Preliminary Blood - Venous No growth after 48 hours. Discharge Plan Discharge Patient Disposition: Home, Self-Care Discharge Diagnosis: PE/RLE DVT BERANBE NSTEMI Referrals: Nikhil Gagnon MD [Primary Care Provider] - 1 Week Delicia Syed MD [Physician] - 1 Month Kirill Muhammad MD [Physician] - 1 Week (PLEASE FOLLOW UP FOR YOUR SUTURES REMOVAL) Discharge Medications: New Eliquis 5 mg Tablet 10 mg PO BID 6 Days Qty: 24 0RF Eliquis 5 mg tablet 5 mg PO BID 30 Days Qty: 60 0RF Continued gabapentin 400 mg capsule 400 mg PO QID 0RF sertraline 100 mg tablet 1 tab PO BID 0RF alprazolam 2 mg tablet 2 mg PO BID 0RF alprazolam 2 mg tablet 1 mg PO DAILY PRN (Reason: Anxiety) 0RF Lantus Solostar U-100 Insulin 100 unit/mL (3 mL) insulin pen 35 unit subcut BEDTIME 0RF amlodipine 10 mg Tablet 10 mg PO DAILY Qty: 30 0RF Protocol: Hold for SBP< HOLD for SBP < : 90 lisinopril 5 mg Tablet 5 mg PO DAILY Qty: 30 0RF Protocol: Hold for SBP< HOLD for SBP < : 90 linezolid [Zyvox] 600 mg tablet 600 mg PO Q12H 42 Days Qty: 84 0RF Rx Instructions: unsure if patient ever picked up med from pharmacy Changed methadone 10 mg/mL Concentrate 35 mg PO DAILY Qty: 0 0RF Discontinued levofloxacin 500 mg tablet 500 mg PO Q24H 42 Days Qty: 42 0RF No Action (DME) shira García See Rx Instructions .Route Qty: 1 0RF Rx Instructions: As directed Discharge Orders: Discharge Order (Routine); Ordered 10/15/21 Ordered By: Shaina Burt Activity on Discharge: As tolerated Stand Alone Forms: Patient Portal Discharge page Care Plan Goals: see below Health Concerns: Pulmonary embolism/right lower extremity DVT BERNABE Drug overdose NSTEMI Osteomyelitis Plan of Treatment: For your pulmonary embolism/DVT you have been started on a blood thinner. You should take 10 mg twice daily of Eliquis for the next 6 days and then 5 mg twice daily moving forward. Monitor for signs of bleeding. No don't take NSAIDs (motrin, ibuprofen ect) Complete course of antibiotics as prescribed (zyvox until November 05) Follow up with ID, Dr. Syed Change dressings daily - xeroform covered with gauze pads and roll gauze to right foot amputation site; Left great toe cover with gauze pads and then roll gauze Call to schedule follow-up appointment with Dr. Muhammad to have sutures removed Call to schedule follow-up appointment with your PCP Assessment: see discharge summary Discharge Date/Time: 10/15/21 13:46
[2021-10-15 11:40] VITALS: BP 162/78; PULSE 76; RESP 18; TEMP 36.9; O2SAT 94
[2021-10-15 12:00] LABS: Glucose, Whole Blood 161 mg/dL (60-115)
[2021-10-15] MEDS: Insulin Lispro 100 UNIT/ML 3 ML VIAL SUBCUT (12:21)
== END 2021-10-15 13:46 | disposition home or self-care (01) | DRG 812 ==
LOC: HO.ED 15:00 → HO.EDOVER 16:54 → HO.S3 10-12 08:55
PROVIDERS: Family Medicine; Internal Medicine; Admitting Provider Nurse Practitioner Acute Care; Emergency Provider Emergency Medicine; PCP Internal Medicine; Visit Provider Physician Assistant Medical
DX: T42.4X1A Poisoning by benzodiazepines, accidental (unintentional), initial encounter (principal); J96.01 Acute respiratory failure with hypoxia; I26.09 Other pulmonary embolism with acute cor pulmonale; N17.9 Acute kidney failure, unspecified; F11.20 Opioid dependence, uncomplicated; T40.3X1A Poisoning by methadone, accidental (unintentional), initial encounter; T40.1X1A Poisoning by heroin, accidental (unintentional), initial encounter; Y92.009 Unspecified place in unspecified non-institutional (private) residence as the place of occurrence of the external cause; Z89.431 Acquired absence of right foot; F17.210 Nicotine dependence, cigarettes, uncomplicated; E11.65 Type 2 diabetes mellitus with hyperglycemia; M86.172 Other acute osteomyelitis, left ankle and foot; I21.A1 Myocardial infarction type 2; I10 Essential (primary) hypertension; M86.672 Other chronic osteomyelitis, left ankle and foot; I45.10 Unspecified right bundle-branch block; I82.411 Acute embolism and thrombosis of right femoral vein; I82.431 Acute embolism and thrombosis of right popliteal vein; E11.69 Type 2 diabetes mellitus with other specified complication; E11.621 Type 2 diabetes mellitus with foot ulcer; L97.529 Non-pressure chronic ulcer of other part of left foot with unspecified severity; I82.441 Acute embolism and thrombosis of right tibial vein; Z91.14 Patient's other noncompliance with medication regimen; Z20.822 Contact with and (suspected) exposure to COVID-19; Z86.14 Personal history of Methicillin resistant Staphylococcus aureus infection; Z71.6 Tobacco abuse counseling; Z79.01 Long term (current) use of anticoagulants; Z79.4 Long term (current) use of insulin; Z79.899 Other long term (current) drug therapy
CPT/HCPCS: 36415; 71045; 73620; 78580; 80048; 80076; 80143; 80179; 80202; 80307; 81001; 82009; 82077; 82140; 82607; 82746; 82803; 82947; 83540; 83605; 83735; 83880; 84439; 84443; 84484; 85025; 85027; 85610; 85730; 87040; 87635; 93005; 93306; 93970; 96361; 96365; 96375; 99024; 99285; A9540; J2543; J3370

== ENCOUNTER 2021-12-14 12:39 | Outpatient (RCR) | payer MEDICAID, SELFPAY | END 2022-06-15 13:34 | disposition home or self-care (01) | LOC: HO.WCC 12:39 | PROVIDERS: PCP Internal Medicine; Visit Provider Physician Assistant | DX: E11.621 Type 2 diabetes mellitus with foot ulcer (principal); L97.512 Non-pressure chronic ulcer of other part of right foot with fat layer exposed; L97.522 Non-pressure chronic ulcer of other part of left foot with fat layer exposed; T87.81 Dehiscence of amputation stump; L03.116 Cellulitis of left lower limb; R60.9 Edema, unspecified; I10 Essential (primary) hypertension; F11.20 Opioid dependence, uncomplicated; F17.210 Nicotine dependence, cigarettes, uncomplicated; Z89.421 Acquired absence of other right toe(s); Z86.718 Personal history of other venous thrombosis and embolism | CPT/HCPCS: 11042; 99213 ==

== ENCOUNTER 2022-08-24 20:00 | Inpatient (IN) | payer MEDICAID, SELFPAY ==
--- NOTE | 2022-08-24 | ECG_ITS ---
Test Reason : DYSPNEA Blood Pressure : / mmHG Vent. Rate : 115 BPM Atrial Rate : 115 BPM P-R Int : 140 ms QRS Dur : 124 ms QT Int : 368 ms P-R-T Axes : 060 194 044 degrees QTc Int : 509 ms Sinus tachycardia Right superior axis deviation Inferior infarct (cited on or before 11-OCT-2021) Abnormal ECG When compared with ECG of 24-AUG-2022 20:31, Right bundle branch block is no longer Present Referred By: Kristin Verdugo Electronically Signed By:MADHAV DELEON MD
--- NOTE | ~2022-08-24 | CT_ITS ---
EXAMINATION: CT ANGIOGRAM OF THE CHEST WITH AND WITHOUT CONTRAST (CT PULMONARY ANGIOGRAM FOR PE) CLINICAL INFORMATION: Hypoxic, tachycardic, history of PEs. COMPARISON: None. TECHNIQUE: Prior to contrast administration, noncontrast localization images were obtained. Subsequently, multidetector volumetric imaging was performed from the thoracic inlet to below the diaphragms following the administration of 80 mL Omnipaque 350 intravenous contrast. No contrast reaction reported Sagittal, coronal, and MIP oblique sagittal reformatted images were obtained on the CT workstation, uploaded to PACS, and reviewed. This CT examination was performed using dose optimization techniques as appropriate, variously including the following: *Automated exposure control *Adjustment of mA and/or kV according to patient size (this includes techniques or standardized protocols for targeted exams where dose is matched to indication/reason for exam; i.e. extremities or head) *Use of iterative reconstruction technique Total exam dose-length product 501 mGy-cm FINDINGS: QUALITY OF STUDY/CONTRAST BOLUS: Satisfactory. PULMONARY ARTERIES: Extensive bilateral pulmonary emboli involving the left and right main pulmonary arteries and multiple segmental branches. THORACIC AORTA: No aneurysm or dissection. LUNG: Multifocal groundglass opacities bilaterally, largest in the right upper lobe. Evaluation of pulmonary nodules and masses is essentially nondiagnostic due to motion and multifocal airspace opacity. PLEURA: No pleural effusion or pneumothorax. MEDIASTINUM: The cardiomediastinal silhouette demonstrates leftward shifting secondary to a large anterior diaphragmatic hernia containing colonic loops of bowel without evidence of obstruction. Increased size of the right-sided heart chambers with reflux of contrast into the hepatic veins suggesting elevated right-sided heart pressures. No pericardial effusion. No bulky mediastinal or hilar lymphadenopathy. Normal appearance of the thyroid gland. CORONARY ARTERY CALCIFICATION: Present. CHEST WALL/AXILLA: No lymphadenopathy. OSSEOUS STRUCTURES: Thoracic spondylosis. Chronic left anterior second rib fracture. No acute or aggressive appearing osseous abnormalities. UPPER ABDOMEN: As above, there is a large anterior diaphragmatic hernia exerting mass effect upon the cardiomediastinal structures and containing nonobstructive loops of colon. There is reflux of contrast into the hepatic veins. There is decreased attenuation of liver suggesting hepatic steatosis and an indeterminate hypodensity in the right hepatic lobe (5:47). CT/CT angio chest PE protocol IMPRESSION: 1. Extensive bilateral pulmonary emboli involving the left and right main pulmonary arteries and multiple segmental branches. There is enlargement of the right-sided heart chambers and reflux of contrast into the hepatic veins suggesting elevated right-sided heart pressures. 2. Multifocal groundglass opacities concerning for an an atypical multifocal pneumonia and/or infarctions in the setting of the extensive pulmonary emboli. Continued follow-up recommended. 3. Very large anterior diaphragmatic hernia exerting mass effect upon the cardiomediastinal structures and containing nonobstructive loops of colon. 4. Hepatic steatosis with an indeterminate hypodensity in the right hepatic lobe. Recommend further characterization with an abdominal MRI with and without IV contrast. VTE: positive This critical result was discussed with Kristin Verdugo at 08/25/2022 12:47 AM and it was ascertained that the content and urgency of the report was understood at the time of direct communication.
--- NOTE | ~2022-08-24 | XR_ITS ---
EXAMINATION: XR CHEST CLINICAL INFORMATION: Hypoxia COMPARISON: 08/24/2022 TECHNIQUE: Frontal view of the chest was obtained. FINDINGS: Lung volumes are low. Right lung opacities show partial improvement from prior. No pleural effusion or pneumothorax. The cardiomediastinal silhouette remains prominent. XR/XR chest 1V IMPRESSION: Partial improvement of right lung opacities.
--- NOTE | ~2022-08-24 | US_ITS ---
EXAMINATION: US VENOUS ULTRASOUND WITH DOPPLER LOWER EXTREMITY, BILATERAL CLINICAL INFORMATION: Pulmonary embolism COMPARISON: Lower extremity DVT 10/14/2021 TECHNIQUE: Ultrasound of the deep veins is performed from the hip to the calf with compression sonography and color and pulse Doppler assessment. Spectral analysis with color-flow imaging is performed. FINDINGS: RIGHT: There is normal venous compression and respiratory variation and augmented flow. The visualized common femoral vein, and proximal superficial femoral vein is patent. Occlusive thrombus is again seen extending from the mid femoral vein into the distal femoral vein and popliteal vein however there has been resolution of thrombus seen in the proximal femoral vein. The posterior tibial vein is patent. The peroneal vein was not identified.. There is no significant popliteal fossa cyst. LEFT: There is normal venous compression and respiratory variation and augmented flow. The visualized common femoral vein, superficial femoral vein, profunda femoral vein, and popliteal vein shows no evidence of deep venous thrombosis. The veins of the calf were not identified. There is no significant popliteal fossa cyst. US/US venous duplex LE BI IMPRESSION: Occlusive thrombus is again seen extending from the mid femoral vein into the popliteal vein however there has been interval resolution of the previously seen thrombus in the proximal femoral vein. No DVT demonstrated in the left lower extremity, however the veins of the calf were not identified imaging evaluation.
--- NOTE | ~2022-08-24 | XR_ITS ---
EXAMINATION: XR CHEST CLINICAL INFORMATION: Shortness of breath. COMPARISON: Chest radiograph 10/11/2021. TECHNIQUE: Frontal view of the chest was obtained. FINDINGS: New airspace opacities in the right mid and lower lung. Clear left lung. No pleural effusion or pneumothorax. Stable appearance of the cardiomediastinal silhouette. No acute osseous abnormalities. The visualized upper abdomen is within normal limits. XR/XR chest 1V IMPRESSION: New airspace opacities in the right mid and lower lung concerning for aspiration or pneumonia in the appropriate clinical context. Recommend a follow-up imaging after treatment to ensure appropriate resolution.
[2022-08-24 20:08] VITALS: BP 160/100; BP 195/111; PULSE 130; PULSE 80; RESP 16; TEMP 37.1; O2SAT 87; O2SAT 90; BMI 30.9
[2022-08-24 20:13] LABS: Glucose, Whole Blood 565 mg/dL (60-115)
--- NOTE | 2022-08-24 20:17 | ECG_ITS ---
Test Reason : SOB Blood Pressure : / mmHG Vent. Rate : 122 BPM Atrial Rate : 122 BPM P-R Int : 142 ms QRS Dur : 126 ms QT Int : 442 ms P-R-T Axes : 055 212 044 degrees QTc Int : 629 ms Sinus tachycardia Right bundle branch block Inferior infarct , age undetermined Abnormal ECG When compared with ECG of 11-OCT-2021 17:46, Right bundle branch block is now Present Inferior infarct is now Present Referred By: Kristin Verdugo Electronically Signed By:MADHAV DELEON MD
--- NOTE | 2022-08-24 20:21 | ED.SOB ---
HPI - SOB/Dyspnea General Chief Complaint: Dyspnea Stated Complaint: Diff breathing x 4days per EMS Time Seen by Provider: 08/24/22 20:06 Source: patient Mode of arrival: EMS Limitations: no limitations History of Present Illness HPI Narrative: Patient comes to the emergency room from home complaining of severe shortness of breath. Patient states it has been present for approximately 4 days. Patient denies any coughing, no fever or chills. Patient states she has history of COPD and also pulmonary embolisms. Patient stop taking Eliquis 1 month ago since she was instructed to do so. Also, patient complaining of high blood sugar. Patient states she would stop taking insulin approximately 3 months ago, states her blood sugars were controlled and she wanted to get off of insulin and control it with diet. However, over last week, her glucose readings have been ?high? in her glucometer . Patient denies using drugs, states the last time that she overdosed and was admitted to hospital, since then she has not used any street drugs. On arrival to the ED, patient's oxygen saturation 87% on room air. Related Data Home Medications Medication Instructions Recorded Confirmed gabapentin 400 mg capsule 400 mg PO QID 09/21/21 08/24/22 acetaminophen 500 mg tablet 2 caplet PO Q6H PRN mild pain 08/24/22 08/24/22 amlodipine 10 mg tablet 10 mg PO BEDTIME 08/24/22 08/24/22 methadone 10 mg/mL oral concentrate 120 mg PO DAILY 08/24/22 Previous Rx's Medication Instructions Recorded lisinopril 5 mg tablet 5 mg PO DAILY #30 tabs 09/29/21 walker #1 ea 10/04/21 Allergies Allergy/AdvReac Type Severity Reaction Status Date / Time prednisone [PREDNISONE] Allergy Unknown RASH Verified 09/24/21 11:47 Review of Systems Review of Systems: Constitutional : No Weight loss, No Fever, No Chills, No Night Sweats, No Fatigue, No Malaise ENT/Mouth : No Hearing loss, No Ear Pain, No Nasal Congestion, No Sinus Pain, No Hoarseness, No sore throat, No Rhinorrhea, No Swallowing Difficulty Eyes: No Eye Pain, No Swelling, No Redness, No Foreign Body, No Discharge, No Vision Changes Cardiovascular : No Chest Pain, denies palpitations or orthopnea Respiratory : No Cough, No Sputum, complaining of shortness of breath at rest and much worse with exertion Gastrointestinal : No Nausea, No Vomiting, No Diarrhea, No Constipation, No abdominal Pain, No Hematochezia, No Melena Genitourinary : no irregular bleeding, No Dysuria, No Urinary Frequency, No Hematuria, No Urinary Incontinence, No Urgency, No Flank Pain, No Urinary Flow Changes, No Hesitancy Musculoskeletal : No joint pain, No Myalgias, No Joint Swelling Skin : No Skin Lesions, No rash Neuro : No Weakness, No Numbness, No Paresthesias, No Loss of Consciousness, No Dizziness, No Headache Psych : No Anxiety/Panic, No Depression, No SI/HI/AH/VH, No Social Issues, Heme/Lymph: No Bruising, No Bleeding,No Lymphadenopathy Endocrine : No Polyuria, No Polydipsia, No Temperature Intolerance, complaining of high blood sugars [facility] Past Medical History Medical History (Updated 08/25/22 @ 01:27 by Kristin Verdugo MD) Acute respiratory failure with hypoxia Anxiety Diabetes NSTEMI (non-ST elevated myocardial infarction) Opioid use disorder Osteomyelitis Pulmonary embolism Substance abuse Surgical History S/P amputation of foot Status post transmetatarsal amputation of right foot (09/24/21) Social History Social History Household Members: Family Housing: Apartment Do you presently have visiting nurse or other home services: Yes (Supposed to but pt. went to hospital) Alcohol intake: never Patient Tobacco Use Status: Current everyday Tobacco user Tobacco use type: Cigarette Cigarette Packs Per Day: 1 Second Hand Smoke Exposure: Yes Substance Use Type: Heroin, Opiates and Prescription Drugs Advance Directives: No Advance Directives Information Provided: No service: No Current occupational status: unemployed Physical Exam Vital Signs: Vital Signs: Last Vital Signs Temp 98.2 F 08/25/22 00:57 Pulse 116 H 08/25/22 00:57 Resp 28 H 08/25/22 00:57 BP 152/95 H 08/25/22 00:57 Pulse Ox 90 L 08/25/22 00:57 O2 Del Method 08/25/22 00:57 O2 Flow Rate 6 08/25/22 00:57 BMI result Body Mass Index 30.9 Const: Other: Appearance: Alert. Oriented X3. Anxious, tachypneic Eyes: Pupils equal, round and reactive to light. ENT: Pharynx normal. Neck: Normal inspection. Neck supple. No lymph nodes noted. No crepitus CVS: Normal heart rate and rhythm. Pulses normal. Normal S1 and S2 Respiratory: In mother respiratory distress, tachypnea, respiratory rate in the 30s, oxygen saturation 87% on room air, improved to 94% on 3 L Abdomen: Soft and nontender. No rigidity. No distention. Skin: Skin warm and dry. Normal skin color. Normal skin turgor. Extremities: No lower extremity edema. No Lacerations. No Rash Neuro: Oriented X 3. No motor deficit. No sensory deficit. Moving all extremities. No slurred speech. CN 2 through 12 grossly intact Psych: calm, cooperative, anxious Course Course Course Narrative: -22:44, patient's white blood cell count resulted, is 22.5, rest of the labs are pending. Imaging still pending. Unclear source of infection but likely respiratory. Patient empirically being treated with ceftriaxone and azithromycin, patient getting IV fluids. At this time, sepsis not suspected. Patient is tachypneic, pulmonary embolism has not been ruled out -23:45 chest x-ray shows right middle and lower lobe pneumonia. Patient has already been treated with azithromycin and ceftriaxone IV. Patient has been given 2 L of normal saline based of an ideal weight of [address] scan is still pending. Blood pressure stable, no fever, sepsis not suspected Medications Administered Discontinued Medications Generic Name Dose Route Start Last Admin Trade Name Freq PRN Reason Stop Dose Admin Sodium Chloride 1,000 mls @ 999 mls/hr 08/24/22 20:17 08/25/22 00:11 Ns IVCONT 08/24/22 21:17 Infused .Q1H1M ONE Infusion Sodium Chloride 1,000 mls @ 999 mls/hr 08/24/22 20:22 08/25/22 00:27 Ns IVCONT 08/24/22 21:22 999 mls/hr .Q1H1M ONE Administration Ceftriaxone Sodium 1 gm/ 50 mls @ 100 mls/hr 08/24/22 22:42 08/25/22 00:29 Sodium Chloride IV 08/24/22 23:11 Infused ONCE ONE Infusion Azithromycin 500 mg/ Sodium 250 mls @ 125 mls/hr 08/24/22 22:42 08/25/22 00:26 Chloride IV 08/25/22 00:41 125 mls/hr ONCE ONE Administration Insulin Human Regular 10 unit 08/24/22 20:22 08/24/22 22:34 Insulin Regular, Human 100 Unit/Ml 3 Ml Vial IVPUSH 08/24/22 20:23 10 unit ONCE ONE Administration Iohexol 85 ml 08/25/22 00:19 08/25/22 00:20 Iohexol 350 Mg/Ml 100 Ml Infus..Btl IV 08/25/22 00:20 85 ml ONCE ONE Administration Lorazepam 2 mg 08/24/22 20:17 08/24/22 22:33 Lorazepam 2 Mg/Ml Vial IVPUSH 08/24/22 20:18 2 mg ONCE ONE Administration Potassium Chloride 40 meq 08/24/22 23:47 08/25/22 00:27 Potassium Chloride Packet 20 Meq Packet PO 08/24/22 23:48 40 meq ONCE ONE Administration -patient requested Ativan, states she is extremely anxious -of patient's labs are pending. Patient will be scanned. Patient has history of pulmonary embolisms. No longer on blood thinners for approximately 1 month. -patient also getting IV fluids and insulin for hyperglycemia Medical Decision Making Medical Decision Making MDM Narrative: -patient has extensive bilateral pulmonary embolisms with but seems increased right cardiac strain. Patient may have pneumonia versus infarcts. I discussed the patient and the CT scan findings with Dr. Bustamante (intensive care/pulmonology). At this time, tPA is not recommended, we will heparinize the patient Differential Diagnosis Differential Diagnoses: The differential diagnosis associated with the presentation includes (Pneumonia, pulmonary infarcts, pulmonary embolism) Admission/Observation Consideration of admission/observation: Escalation of care including admission/observation considered (Patient is hypoxic, had a heavy PE burden.) Consult Healthcare Provider Management of the patient was discussed with: Hospitalist and [employer] (Dr Bustamante ICU/Pulm) Lab Data [facility] Lab Attestation statement: I reviewed the patient's lab results. 08/24/22 22:18 08/24/22 21:00 Labs: Lab Results 08/24/22 08/24/22 08/24/22 Range/Units 20:09 20:54 20:54 WBC (4.8-10.8) X10*3/uL RBC (4.20-5.50) X10*6/uL Hgb (12.0-16.0) g/dl Hct (37.0-47.0) % MCV (80.0-98.0) fL MCH (27.0-33.0) pg MCHC (31.0-35.0) g/dl RDW (11.0-16.0) % Plt Count (160-400) X10*3/uL MPV (9.4-12.3) fL Immature Gran % (Auto) (0.0-0.4) % Neut % (Auto) (45-73) % Lymph % (Auto) (20-40) % Harper % (Auto) (2-11) % Eos % (Auto) (0-4) % Baso % (Auto) (0-2) % Lymph # (Auto) (1.2-4.9) X10*3/uL Harper # (Auto) (0.1-1.2) X10*3/uL Eos # (Auto) (0.0-0.4) X10*3/uL Baso # (Auto) (0.0-0.2) X10*3/uL Abs Immat Gran (auto) (0.00-0.03) X10*3/uL Absolute Neuts (auto) (2.0-8.3) x10*3/uL Absolute Nucleated RBC (0.0-0.012) X10*3/uL Nucleated RBC % (auto) (0.0-0.2) /100WBC PT (10.0-13.1) SEC INR (0.9-1.1) APTT (26.0-36.4) SEC D-Dimer High Sensitivty NG/ML VBG pH (7.32-7.43) VBG pCO2 mmHg VBG pO2 mmHg VBG HCO3 (22-26) mmol/L VBG O2 Saturation % VBG Base Excess mmol/L Sodium (135-145) mmol/L Potassium (3.3-5.1) mmol/L Chloride (96-108) mmol/L Carbon Dioxide (22-29) mmol/L Anion Gap (12-20) BUN (9-16) mg/dL Creatinine (0.5-1.4) mg/dL Estim Creat Clear Calc Estimated GFR POC Glucose 565 H* (60-115) mg/dL Random Glucose (60-115) mg/dL Lactic Acid (0.5-2.0) mmol/L Lactic Acid F/U @ 2Hr (0.5-2.0) mmol/L Calcium (8.4-10.2) mg/dL Magnesium (1.6-2.6) mg/dL Total Bilirubin (0.0-1.0) mg/dL Direct Bilirubin (0.0-0.5) mg/dL AST (5-31) U/L ALT (0-31) U/L Alkaline Phosphatase (39-117) U/L Troponin I High Sens (<3.5-17.0) ng/L B-Natriuretic Peptide (<100) pg/mL Total Protein (6.5-8.0) g/dL Albumin (3.5-5.0) g/dL Urine Color Urine Appearance Urine pH (5.0-9.0) Ur Specific [place] (1.005-1.025) Urine Protein (Neg-Trace) mg/dL Urine Glucose (UA) (Negative) mg/dL Urine Ketones (Negative) mg/dL Urine Blood (Negative) Urine Nitrite (Negative) Ur Leukocyte Esterase (Negative) Urine RBC (0-2) /HPF Urine WBC (0-5) /HPF Ur Squamous Epith Cells (0-2) /HPF Urine Bacteria (None Seen) Hyaline Casts (0-2) /LPF Urine Opiates Screen (Not Detect) Urine Fentanyl Screen (Not Detect) Ur Barbiturates Screen (Not Detect) Ur Phencyclidine Scrn (Not Detect) Ur Amphetamines Screen (Not Detect) U Benzodiazepines Scrn (Not Detect) Urine Cocaine Screen (Not Detect) U Marijuana (THC) Screen (Not Detect) COVID-19 (EUSEBIO) Negative (Negative) COVID-19 Clin Com See Note Influenza Type A (TIENREY) Negative (Negative) Influenza Type B (TIERNEY) Negative (Negative) Influenza A & B Note See Note 08/24/22 08/24/22 08/24/22 Range/Units 21:00 22:18 22:18 WBC 22.5 H (4.8-10.8) X10*3/uL RBC 4.88 D (4.20-5.50) X10*6/uL Hgb 14.2 D (12.0-16.0) g/dl Hct 42.6 D (37.0-47.0) % MCV 87.3 (80.0-98.0) fL MCH 29.1 (27.0-33.0) pg MCHC 33.3 (31.0-35.0) g/dl RDW 13.7 (11.0-16.0) % Plt Count 265 D (160-400) X10*3/uL MPV 10.7 (9.4-12.3) fL Immature Gran % (Auto) 1.1 H (0.0-0.4) % Neut % (Auto) 86.8 H (45-73) % Lymph % (Auto) 7.5 L (20-40) % Harper % (Auto) 4.1 (2-11) % Eos % (Auto) 0.0 (0-4) % Baso % (Auto) 0.5 (0-2) % Lymph # (Auto) 1.7 (1.2-4.9) X10*3/uL Harper # (Auto) 0.9 (0.1-1.2) X10*3/uL Eos # (Auto) 0.0 (0.0-0.4) X10*3/uL Baso # (Auto) 0.1 (0.0-0.2) X10*3/uL Abs Immat Gran (auto) 0.25 H (0.00-0.03) X10*3/uL Absolute Neuts (auto) 19.5 H (2.0-8.3) x10*3/uL Absolute Nucleated RBC 0.030 H (0.0-0.012) X10*3/uL Nucleated RBC % (auto) 0.1 (0.0-0.2) /100WBC PT 10.8 (10.0-13.1) SEC INR 0.9 (0.9-1.1) APTT 30.5 (26.0-36.4) SEC D-Dimer High Sensitivty 675 NG/ML VBG pH (7.32-7.43) VBG pCO2 mmHg VBG pO2 mmHg VBG HCO3 (22-26) mmol/L VBG O2 Saturation % VBG Base Excess mmol/L Sodium (135-145) mmol/L Potassium (3.3-5.1) mmol/L Chloride (96-108) mmol/L Carbon Dioxide (22-29) mmol/L Anion Gap (12-20) BUN (9-16) mg/dL Creatinine (0.5-1.4) mg/dL Estim Creat Clear Calc Estimated GFR POC Glucose (60-115) mg/dL Random Glucose (60-115) mg/dL Lactic Acid (0.5-2.0) mmol/L Lactic Acid F/U @ 2Hr (0.5-2.0) mmol/L Calcium (8.4-10.2) mg/dL Magnesium (1.6-2.6) mg/dL Total Bilirubin (0.0-1.0) mg/dL Direct Bilirubin (0.0-0.5) mg/dL AST (5-31) U/L ALT (0-31) U/L Alkaline Phosphatase (39-117) U/L Troponin I High Sens (<3.5-17.0) ng/L B-Natriuretic Peptide 314 H (<100) pg/mL Total Protein (6.5-8.0) g/dL Albumin (3.5-5.0) g/dL Urine Color Urine Appearance Urine pH (5.0-9.0) Ur Specific [place] (1.005-1.025) Urine Protein (Neg-Trace) mg/dL Urine Glucose (UA) (Negative) mg/dL Urine Ketones (Negative) mg/dL Urine Blood (Negative) Urine Nitrite (Negative) Ur Leukocyte Esterase (Negative) Urine RBC (0-2) /HPF Urine WBC (0-5) /HPF Ur Squamous Epith Cells (0-2) /HPF Urine Bacteria (None Seen) Hyaline Casts (0-2) /LPF Urine Opiates Screen (Not Detect) Urine Fentanyl Screen (Not Detect) Ur Barbiturates Screen (Not Detect) Ur Phencyclidine Scrn (Not Detect) Ur Amphetamines Screen (Not Detect) U Benzodiazepines Scrn (Not Detect) Urine Cocaine Screen (Not Detect) U Marijuana (THC) Screen (Not Detect) COVID-19 (EUSEBIO) (Negative) COVID-19 Clin Com Influenza Type A (TIERNEY) (Negative) Influenza Type B (TIERNEY) (Negative) Influenza A & B Note 08/24/22 08/24/22 08/24/22 Range/Units 22:18 22:18 22:43 WBC (4.8-10.8) X10*3/uL RBC (4.20-5.50) X10*6/uL Hgb (12.0-16.0) g/dl Hct (37.0-47.0) % MCV (80.0-98.0) fL MCH (27.0-33.0) pg MCHC (31.0-35.0) g/dl RDW (11.0-16.0) % Plt Count (160-400) X10*3/uL MPV (9.4-12.3) fL Immature Gran % (Auto) (0.0-0.4) % Neut % (Auto) (45-73) % Lymph % (Auto) (20-40) % Harper % (Auto) (2-11) % Eos % (Auto) (0-4) % Baso % (Auto) (0-2) % Lymph # (Auto) (1.2-4.9) X10*3/uL Harper # (Auto) (0.1-1.2) X10*3/uL Eos # (Auto) (0.0-0.4) X10*3/uL Baso # (Auto) (0.0-0.2) X10*3/uL Abs Immat Gran (auto) (0.00-0.03) X10*3/uL Absolute Neuts (auto) (2.0-8.3) x10*3/uL Absolute Nucleated RBC (0.0-0.012) X10*3/uL Nucleated RBC % (auto) (0.0-0.2) /100WBC PT (10.0-13.1) SEC INR (0.9-1.1) APTT (26.0-36.4) SEC D-Dimer High Sensitivty NG/ML VBG pH (7.32-7.43) VBG pCO2 mmHg VBG pO2 mmHg VBG HCO3 (22-26) mmol/L VBG O2 Saturation % VBG Base Excess mmol/L Sodium 133 L (135-145) mmol/L Potassium 3.1 L D (3.3-5.1) mmol/L Chloride 97 (96-108) mmol/L Carbon Dioxide 20 L (22-29) mmol/L Anion Gap 19 (12-20) BUN 10 (9-16) mg/dL Creatinine 0.88 (0.5-1.4) mg/dL Estim Creat Clear Calc 83.1 Estimated GFR > 60 POC Glucose (60-115) mg/dL Random Glucose 548 H* (60-115) mg/dL Lactic Acid 2.6 H* (0.5-2.0) mmol/L Lactic Acid F/U @ 2Hr (0.5-2.0) mmol/L Calcium 8.6 (8.4-10.2) mg/dL Magnesium 1.8 (1.6-2.6) mg/dL Total Bilirubin 0.3 (0.0-1.0) mg/dL Direct Bilirubin < 0.2 (0.0-0.5) mg/dL AST 23 (5-31) U/L ALT 16 (0-31) U/L Alkaline Phosphatase 137 H (39-117) U/L Troponin I High Sens 296.3 H* (<3.5-17.0) ng/L B-Natriuretic Peptide (<100) pg/mL Total Protein 7.3 (6.5-8.0) g/dL Albumin 3.8 (3.5-5.0) g/dL Urine Color Urine Appearance Urine pH (5.0-9.0) Ur Specific [place] (1.005-1.025) Urine Protein (Neg-Trace) mg/dL Urine Glucose (UA) (Negative) mg/dL Urine Ketones (Negative) mg/dL Urine Blood (Negative) Urine Nitrite (Negative) Ur Leukocyte Esterase (Negative) Urine RBC (0-2) /HPF Urine WBC (0-5) /HPF Ur Squamous Epith Cells (0-2) /HPF Urine Bacteria (None Seen) Hyaline Casts (0-2) /LPF Urine Opiates Screen (Not Detect) Urine Fentanyl Screen (Not Detect) Ur Barbiturates Screen (Not Detect) Ur Phencyclidine Scrn (Not Detect) Ur Amphetamines Screen (Not Detect) U Benzodiazepines Scrn (Not Detect) Urine Cocaine Screen (Not Detect) U Marijuana (THC) Screen (Not Detect) COVID-19 (EUSEBIO) (Negative) COVID-19 Clin Com Influenza Type A (TIERNEY) (Negative) Influenza Type B (TIERNEY) (Negative) Influenza A & B Note 08/24/22 08/25/22 08/25/22 Range/Units 22:48 00:04 00:04 WBC (4.8-10.8) X10*3/uL RBC (4.20-5.50) X10*6/uL Hgb (12.0-16.0) g/dl Hct (37.0-47.0) % MCV (80.0-98.0) fL MCH (27.0-33.0) pg MCHC (31.0-35.0) g/dl RDW (11.0-16.0) % Plt Count (160-400) X10*3/uL MPV (9.4-12.3) fL Immature Gran % (Auto) (0.0-0.4) % Neut % (Auto) (45-73) % Lymph % (Auto) (20-40) % Harper % (Auto) (2-11) % Eos % (Auto) (0-4) % Baso % (Auto) (0-2) % Lymph # (Auto) (1.2-4.9) X10*3/uL Harper # (Auto) (0.1-1.2) X10*3/uL Eos # (Auto) (0.0-0.4) X10*3/uL Baso # (Auto) (0.0-0.2) X10*3/uL Abs Immat Gran (auto) (0.00-0.03) X10*3/uL Absolute Neuts (auto) (2.0-8.3) x10*3/uL Absolute Nucleated RBC (0.0-0.012) X10*3/uL Nucleated RBC % (auto) (0.0-0.2) /100WBC PT (10.0-13.1) SEC INR (0.9-1.1) APTT (26.0-36.4) SEC D-Dimer High Sensitivty NG/ML VBG pH 7.33 (7.32-7.43) VBG pCO2 43 mmHg VBG pO2 41 mmHg VBG HCO3 22 (22-26) mmol/L VBG O2 Saturation 61.0 % VBG Base Excess -3.0 mmol/L Sodium (135-145) mmol/L Potassium (3.3-5.1) mmol/L Chloride (96-108) mmol/L Carbon Dioxide (22-29) mmol/L Anion Gap (12-20) BUN (9-16) mg/dL Creatinine (0.5-1.4) mg/dL Estim Creat Clear Calc Estimated GFR POC Glucose (60-115) mg/dL Random Glucose (60-115) mg/dL Lactic Acid (0.5-2.0) mmol/L Lactic Acid F/U @ 2Hr (0.5-2.0) mmol/L Calcium (8.4-10.2) mg/dL Magnesium (1.6-2.6) mg/dL Total Bilirubin (0.0-1.0) mg/dL Direct Bilirubin (0.0-0.5) mg/dL AST (5-31) U/L ALT (0-31) U/L Alkaline Phosphatase (39-117) U/L Troponin I High Sens (<3.5-17.0) ng/L B-Natriuretic Peptide (<100) pg/mL Total Protein (6.5-8.0) g/dL Albumin (3.5-5.0) g/dL Urine Color Yellow Urine Appearance Clear Urine pH 5.5 (5.0-9.0) Ur Specific [place] >= 1.030 H (1.005-1.025) Urine Protein 100 (2+) H (Neg-Trace) mg/dL Urine Glucose (UA) >=1000 H (Negative) mg/dL Urine Ketones >=160 (Negative) mg/dL Urine Blood Small (1+) H (Negative) Urine Nitrite Negative (Negative) Ur Leukocyte Esterase Negative (Negative) Urine RBC 0-2 (0-2) /HPF Urine WBC 0-5 (0-5) /HPF Ur Squamous Epith Cells 0-2 (0-2) /HPF Urine Bacteria None Seen (None Seen) Hyaline Casts 0-2 (0-2) /LPF Urine Opiates Screen Not Detected (Not Detect) Urine Fentanyl Screen POSITIVE H (Not Detect) Ur Barbiturates Screen Not Detected (Not Detect) Ur Phencyclidine Scrn Not Detected (Not Detect) Ur Amphetamines Screen Not Detected (Not Detect) U Benzodiazepines Scrn Not Detected (Not Detect) Urine Cocaine Screen Not Detected (Not Detect) U Marijuana (THC) Screen POSITIVE H (Not Detect) COVID-19 (EUSEBIO) (Negative) COVID-19 Clin Com Influenza Type A (TIERNEY) (Negative) Influenza Type B (TIERNEY) (Negative) Influenza A & B Note 08/25/22 08/25/22 Range/Units 00:22 00:53 WBC (4.8-10.8) X10*3/uL RBC (4.20-5.50) X10*6/uL Hgb (12.0-16.0) g/dl Hct (37.0-47.0) % MCV (80.0-98.0) fL MCH (27.0-33.0) pg MCHC (31.0-35.0) g/dl RDW (11.0-16.0) % Plt Count (160-400) X10*3/uL MPV (9.4-12.3) fL Immature Gran % (Auto) (0.0-0.4) % Neut % (Auto) (45-73) % Lymph % (Auto) (20-40) % Harper % (Auto) (2-11) % Eos % (Auto) (0-4) % Baso % (Auto) (0-2) % Lymph # (Auto) (1.2-4.9) X10*3/uL Harper # (Auto) (0.1-1.2) X10*3/uL Eos # (Auto) (0.0-0.4) X10*3/uL Baso # (Auto) (0.0-0.2) X10*3/uL Abs Immat Gran (auto) (0.00-0.03) X10*3/uL Absolute Neuts (auto) (2.0-8.3) x10*3/uL Absolute Nucleated RBC (0.0-0.012) X10*3/uL Nucleated RBC % (auto) (0.0-0.2) /100WBC PT (10.0-13.1) SEC INR (0.9-1.1) APTT (26.0-36.4) SEC D-Dimer High Sensitivty NG/ML VBG pH (7.32-7.43) VBG pCO2 mmHg VBG pO2 mmHg VBG HCO3 (22-26) mmol/L VBG O2 Saturation % VBG Base Excess mmol/L Sodium (135-145) mmol/L Potassium (3.3-5.1) mmol/L Chloride (96-108) mmol/L Carbon Dioxide (22-29) mmol/L Anion Gap (12-20) BUN (9-16) mg/dL Creatinine (0.5-1.4) mg/dL Estim Creat Clear Calc Estimated GFR POC Glucose 470 H* (60-115) mg/dL Random Glucose (60-115) mg/dL Lactic Acid (0.5-2.0) mmol/L Lactic Acid F/U @ 2Hr 3.2 H* (0.5-2.0) mmol/L Calcium (8.4-10.2) mg/dL Magnesium (1.6-2.6) mg/dL Total Bilirubin (0.0-1.0) mg/dL Direct Bilirubin (0.0-0.5) mg/dL AST (5-31) U/L ALT (0-31) U/L Alkaline Phosphatase (39-117) U/L Troponin I High Sens (<3.5-17.0) ng/L B-Natriuretic Peptide (<100) pg/mL Total Protein (6.5-8.0) g/dL Albumin (3.5-5.0) g/dL Urine Color Urine Appearance Urine pH (5.0-9.0) Ur Specific [place] (1.005-1.025) Urine Protein (Neg-Trace) mg/dL Urine Glucose (UA) (Negative) mg/dL Urine Ketones (Negative) mg/dL Urine Blood (Negative) Urine Nitrite (Negative) Ur Leukocyte Esterase (Negative) Urine RBC (0-2) /HPF Urine WBC (0-5) /HPF Ur Squamous Epith Cells (0-2) /HPF Urine Bacteria (None Seen) Hyaline Casts (0-2) /LPF Urine Opiates Screen (Not Detect) Urine Fentanyl Screen (Not Detect) Ur Barbiturates Screen (Not Detect) Ur Phencyclidine Scrn (Not Detect) Ur Amphetamines Screen (Not Detect) U Benzodiazepines Scrn (Not Detect) Urine Cocaine Screen (Not Detect) U Marijuana (THC) Screen (Not Detect) COVID-19 (EUSEBIO) (Negative) COVID-19 Clin Com Influenza Type A (TIERNEY) (Negative) Influenza Type B (TIERNEY) (Negative) Influenza A & B Note Independent Interpretation I performed an independent interpretation of an: EKG (See segment depressions in lead 1, heart rate 115,, QTC 509) and CT Scan (By CT scan to petition colon concerning for pulmonary embolisms) Radiology Impression Discussion of test interpretation with radiology: I have reviewed the radiologist's reading. Radiologist Impression: FINDINGS: QUALITY OF STUDY/CONTRAST BOLUS: Satisfactory. PULMONARY ARTERIES: Extensive bilateral pulmonary emboli involving the left and right main pulmonary arteries and multiple segmental branches. ? THORACIC AORTA: No aneurysm or dissection. LUNG: Multifocal groundglass opacities bilaterally, largest in the right upper lobe. Evaluation of pulmonary nodules and masses is essentially nondiagnostic due to motion and multifocal airspace opacity. PLEURA: No pleural effusion or pneumothorax. MEDIASTINUM: The cardiomediastinal silhouette demonstrates leftward shifting secondary to a large anterior diaphragmatic hernia containing colonic loops of bowel without evidence of obstruction. Increased size of the right-sided heart chambers with reflux of contrast into the hepatic veins suggesting elevated right-sided heart pressures. No pericardial effusion. No bulky mediastinal or hilar lymphadenopathy. Normal appearance of the thyroid gland. CORONARY ARTERY CALCIFICATION: Present. CHEST WALL/AXILLA: No lymphadenopathy. OSSEOUS STRUCTURES: Thoracic spondylosis. Chronic left anterior second rib fracture. No acute or aggressive appearing osseous abnormalities.? UPPER ABDOMEN: As above, there is a large anterior diaphragmatic hernia exerting mass effect upon the cardiomediastinal structures and containing nonobstructive loops of colon. There is reflux of contrast into the hepatic veins. There is decreased attenuation of liver suggesting hepatic steatosis and an indeterminate hypodensity in the right hepatic lobe (5:47). CT/CT angio chest PE protocol IMPRESSION: 1.? Extensive bilateral pulmonary emboli involving the left and right main pulmonary arteries and multiple segmental branches. There is enlargement of the right-sided heart chambers and reflux of contrast into the hepatic veins suggesting elevated right-sided heart pressures. 2.? Multifocal groundglass opacities concerning for an an atypical multifocal pneumonia and/or infarctions in the setting of the extensive pulmonary emboli. Continued follow-up recommended. 3.? Very large anterior diaphragmatic hernia exerting mass effect upon the cardiomediastinal structures and containing nonobstructive loops of colon. 4.? Hepatic steatosis with an indeterminate hypodensity in the right hepatic lobe. Recommend further characterization with an abdominal MRI with and without IV contrast. ? VTE: positive ? External Record Review External record reviewed: Inpatient record (Last time that the patient was admitted she was diagnosed with a pulmonary embolisms) Critical Care Time Critical Care Time Critical Care Time: Yes Total Critical Care Time: 120 Attestation: I have personally provided critical care time. Time includes review of lab data, radiology results, discussion with consultants, and monitoring for potential decompensation. Intervention performed as documented. Discharge Plan Discharge Clinical Impression: Pneumonia, Acute hypokalemia, Acute hyperglycemia, Bilateral pulmonary embolism Patient Disposition: Admitted As Inpatient
--- NOTE | 2022-08-24 21:00 | PHA.MEDREC ---
Pharmacy Consult ? Medication Reconciliation Pharmacy has completed the medication reconciliation. Spoke to patient at bedside. She noted that she was recently prescribed Lantus 35 units at bedtime but has not started it. Also noted she gets 120mg methadone from [facility] and noted last dose was today, if admitted will need methadone verification form for 08/25
[2022-08-24 21:14] LABS: COVID-19 Test Negative (Negative); IDNOW Serial# BCCEAD1C; Influenza A Negative (Negative); Influenza B2 Negative (Negative)
[2022-08-24 21:28] LABS: B Type Natriuretic Peptide 314 pg/mL (<100)
[2022-08-24 22:26] LABS: MANUAL DIFF FLAG NO
[2022-08-24 22:28] LABS: Basophils Absolute Auto 0.1 X10*3/uL (0.0-0.2); Basophils Percent Auto 0.5 % (0-2); Hematocrit 42.6 % (37.0-47.0); Hemoglobin 14.2 g/dl (12.0-16.0); Imm Gran Abs Auto 0.25 X10*3/uL (0.00-0.03); Imm Gran Pct Auto 1.1 % (0.0-0.4); Lymphocytes Absolute Auto 1.7 X10*3/uL (1.2-4.9); Lymphocytes Percent Auto 7.5 % (20-40); Mean Corpuscular HGB Conc 33.3 g/dl (31.0-35.0); Mean Corpuscular Hemoglobin 29.1 pg (27.0-33.0); Mean Corpuscular Volume 87.3 fL (80.0-98.0); Mean Platelet Volume 10.7 fL (9.4-12.3); Monocytes Absolute Auto 0.9 X10*3/uL (0.1-1.2); Monocytes Percent Auto 4.1 % (2-11); NRBC Pct Auto 0.1 /100WBC (0.0-0.2); Neutrophils Absolute Auto 19.5 x10*3/uL (2.0-8.3); Neutrophils Percent Auto 86.8 % (45-73); Platelet Count 265 X10*3/uL (160-400); Red Blood Count 4.88 X10*6/uL (4.20-5.50); Red Cell Distribution Width 13.7 % (11.0-16.0); White Blood Count 22.5 X10*3/uL (4.8-10.8)
[2022-08-24 22:33] LABS: INTERNATIONAL NORM RATIO 0.9 (0.9-1.1); Prothrombin Time 10.8 SEC (10.0-13.1)
[2022-08-24] MEDS: LORazepam 2 MG/ML VIAL IVPUSH (22:33)
[2022-08-24] MEDS: Insulin Regular, Human 100 UNIT/ML 3 ML VIAL 10 UNIT IVPUSH (22:34)
[2022-08-24] MEDS: 0.9 % Sodium Chloride 1,000 ML 999 ML IVCONT (22:34)
[2022-08-24 22:35] LABS: D Dimer High Sensitivity 675 NG/ML
[2022-08-24 22:38] VITALS: PULSE 121; RESP 32; O2SAT 93
[2022-08-24 22:43] LABS: Lactic Acid 2.6 mmol/L (0.5-2.0)
[2022-08-24 22:52] LABS: Venous Blood Gas Refer to POC result
[2022-08-24 22:58] LABS: VBG HCO3 22 mmol/L (22-26); VBG pCO2 43 mmHg; VBG pH 7.33 (7.32-7.43); VBG pO2 41 mmHg
[2022-08-24 23:01] LABS: Troponin-I High Sensitivity 296.3 ng/L (<3.5-17.0)
--- NOTE | 2022-08-24 23:17 | PC.NURSE ---
I assumed nursing care of this pt upon her arrival to ED bed 2 from EMS stretcher. She presents for evaluation of difficulty breathing, stating she has not been compliant with her insulin and fears that her blood sugars are elevated. On arrival multiple RN's and techs attempted to obtain labs and/or IV access unsuccessfully. RN attempted with Ezequiel/Willy Thomson MD was able to place a R neck single lumen central line. Labs obtained from this IV. IVF's infusing, IVP insulin given per MD order. She denies chest pain. Respirations are non-labored, RR elevated at 28-32, O2 sats 94-95% on 2L nasal cannula.
[2022-08-24 23:18] LABS: Alanine Aminotransferase 16 U/L (0-31); Albumin Level 3.8 g/dL (3.5-5.0); Alkaline Phosphatase 137 U/L (39-117); Anion Gap 19 (12-20); Aspartate Amino Transferase 23 U/L (5-31); Bilirubin Direct < 0.2 mg/dL (0.0-0.5); Bilirubin Total 0.3 mg/dL (0.0-1.0); Blood Urea Nitrogen 10 mg/dL (9-16); Calcium 8.6 mg/dL (8.4-10.2); Carbon Dioxide 20 mmol/L (22-29); Chloride 97 mmol/L (96-108); Creatinine Clr Calc Pharmacy 83.1; Estimated Glomerular Filt Rate > 60; Glucose Random 548 mg/dL (60-115); Magnesium 1.8 mg/dL (1.6-2.6); Potassium 3.1 mmol/L (3.3-5.1); Sodium 133 mmol/L (135-145); Total Protein 7.3 g/dL (6.5-8.0)
[2022-08-24] MEDS: cefTRIAXone sodium 1 GM in 0.9 % Sodium Chloride 50 ML IV (23:37)
[2022-08-25] VITALS (7 sets, daily range): BP systolic 106–176; BP diastolic 56–95; PULSE 65–144; RESP 18–28; TEMP 36.2–37.1; O2SAT 90–94; BMI 35.6
[2022-08-25 00:12] LABS: Appearance Urine Clear; Color Urine Yellow; Glucose Urine UA >=1000 mg/dL (Negative); Leukocyte Esterase Urine Negative (Negative); Nitrite Urine Negative (Negative); PH 5.5 (5.0-9.0); Specific Gravity - Urine >= 1.030 (1.005-1.025); UMIC TRIGGER UACC YES; Urine Blood Small (1+) (Negative); Urine Ketones >=160 mg/dL (Negative); Urine Protein 100 (2+) mg/dL (Neg-Trace)
[2022-08-25] MEDS: iohexoL 350 MG/ML 100 ML INFUS..BTL 85 ML IV (00:20)
[2022-08-25 00:22] LABS: Amphetamine Screen Urine Not Detected (Not Detect); Barbiturates, Urine Not Detected (Not Detect); Benzodiazepines Screen Urine Not Detected (Not Detect); Cannabinoid Screen Urine POSITIVE (Not Detect); Cocaine Screen Urine Not Detected (Not Detect); Fentanyl, urine POSITIVE (Not Detect); Opiate Screen Urine Not Detected (Not Detect); Phencyclidine Screen Urine Not Detected (Not Detect)
[2022-08-25 00:23] LABS: Bacteria Urine None Seen (None Seen); Hyaline Casts Urine 0-2 /LPF (0-2); RBC Urine 0-2 /HPF (0-2); Squamous Epithelial Cell Urine 0-2 /HPF (0-2); WBC Urine 0-5 /HPF (0-5)
[2022-08-25 00:24] LABS: Reflex Lactate? Lactic Acid Added
--- NOTE | 2022-08-25 00:25 | MHC.EDTECH ---
Patient requested Fluids and Food. Per Nurse to hold off until POC. Relayed message to patient and she understood.
[2022-08-25] MEDS: Azithromycin 500 MG in 0.9 % Sodium Chloride 250 ML 125 MG IV (00:26)
[2022-08-25] MEDS: Potassium Chloride Packet 20 MEQ PACKET 40 MEQ PO (00:27)
[2022-08-25] MEDS: 0.9 % Sodium Chloride 1,000 ML 999 ML IVCONT (00:27)
[2022-08-25 00:28] LABS: Glucose, Whole Blood 470 mg/dL (60-115)
[2022-08-25 00:57] LABS: Partial Thromboplastin Time 30.5 SEC (26.0-36.4)
[2022-08-25 01:11] LABS: ~Lactic Acid-LAB USE ONLY 3.2 mmol/L (0.5-2.0)
[2022-08-25] MEDS: Heparin Sodium,Porcine/1/2NS 25,000 UNIT/250 ML IV.SOLN 12.19 UNIT IVCONT (01:48)
[2022-08-25] MEDS: Insulin Regular, Human 100 UNIT/ML 3 ML VIAL 10 UNIT IVPUSH (01:52)
--- NOTE | 2022-08-25 01:54 | P.HPHOSP_ITS ---
History of Present Illness Date of Service: 08/25/22 Chief Complaint: Dyspnea This is a 52-year-old female with pertinent history of PE on Eliquis, opioid use disorder on methadone, essential hypertension, COPD, insulin-dependent diabetes mellitus who presents to emergency department evaluation of dyspnea. Patient states she has been having dyspnea for approximately 3-4 days which worsened on the day of presentation. Also has pleuritic chest discomfort. She denies fever, chills, endorses productive cough. States she was on Eliquis previously for PE but stopped taking 1 month ago as instructed by her PCP as she had completed 6 months of anticoagulation. Patient states that she stopped taking her insulin approximately 3 months ago as her blood sugars were controlled. She was trying to control her diabetes with diet. Over the last 1 week Glucometer readings have been high. She states she last used drugs in June but admits to smoking weed. Does not know if weed was laced with any street drugs. She denies palpitations, abdominal pain, changes in urinary or bowel habits In the emergency department, patient was found to be hypoxemic and CTA was with bilateral PE Review of Systems Cardiovascular: Cardiovascular: Reports dyspnea on exertion Respiratory: Respiratory: Reports pain on inspiration and Reports dyspnea on exertion Gastrointestinal: Gastrointestinal: Reports no additional gastrointestinal complaints Genitourinary: Genitourinary: Reports no additional female genitourinary complaints [facility] Medical History Acute respiratory failure with hypoxia Anxiety Diabetes NSTEMI (non-ST elevated myocardial infarction) Opioid use disorder Osteomyelitis Pulmonary embolism Substance abuse Surgical History S/P amputation of foot Status post transmetatarsal amputation of right foot (09/24/21) Social History Household Members: Family Housing: Apartment Do you presently have visiting nurse or other home services: Yes (Supposed to but pt. went to hospital) Alcohol intake: never Patient Tobacco Use Status: Current everyday Tobacco user Tobacco use type: Cigarette Cigarette Packs Per Day: 1 Second Hand Smoke Exposure: Yes Substance Use Type: Heroin, Opiates and Prescription Drugs Advance Directives: No Advance Directives Information Provided: No service: No Current occupational status: unemployed Meds Allergies Allergy/AdvReac Type Severity Reaction Status Date / Time prednisone [PREDNISONE] Allergy Unknown RASH Verified 09/24/21 11:47 Active Medications: Current Medications Heparin Sodium/Sodium Chloride (Heparin Sodium,Porcine/1/2ns) 25,000 unit in 250 mls @ 12.19 mls/hr IVCONT .[id number] [facility]; Protocol Last Admin: 08/25/22 01:48 Dose: 14 units/kg/hr, 12.19 mls/hr Pharmacy Consult (Consult Rx Perform Med Rec) 1 each MISCELLANE ONCE PRN PRN Reason: Consult order Home Medications Medication Instructions Recorded Confirmed Last Taken Type gabapentin 400 mg capsule 400 mg PO QID 09/21/21 08/24/22 08/23/22 History acetaminophen 500 mg tablet 2 caplet PO Q6H PRN mild pain 08/24/22 08/24/22 Unknown History amlodipine 10 mg tablet 10 mg PO BEDTIME 08/24/22 08/24/22 08/23/22 History methadone 10 mg/mL oral concentrate 120 mg PO DAILY 08/24/22 08/24/22 History Physical Exam Vital Signs and Narrative: Vital Signs: Last Vital Signs Temp 98.2 F 08/25/22 00:57 Pulse 116 H 08/25/22 00:57 Resp 28 H 08/25/22 00:57 BP 152/95 H 08/25/22 00:57 Pulse Ox 90 L 08/25/22 00:57 O2 Del Method 08/25/22 00:57 O2 Flow Rate 6 08/25/22 00:57 BMI result Body Mass Index 30.9 Middle-aged female lying in bed in distress on 6 L supplemental oxygen Neck supple, Tachycardic with regular rhythm, S1-S2 heard Right-sided crackles without wheezing Abdomen soft nontender, no guarding, no rigidity Patient is awake, alert and oriented to self, place, time and person ; no focal motor deficit Psych: Normal mood No pedal edema Results Labs 08/24/22 22:18 08/24/22 22:43 Labs: Laboratory Results - last 24 hr 08/24/22 08/24/22 08/24/22 20:09 20:54 20:54 MCV MCH MCHC RDW Plt Count MPV Immature Gran % (Auto) Neut % (Auto) Lymph % (Auto) [place] % (Auto) Eos % (Auto) Baso % (Auto) Lymph # (Auto) [place] # (Auto) Eos # (Auto) Baso # (Auto) Abs Immat Gran (auto) Absolute Neuts (auto) Absolute Nucleated RBC Nucleated RBC % (auto) PT INR APTT D-Dimer High Sensitivty VBG pH VBG pCO2 VBG pO2 VBG HCO3 VBG O2 Saturation VBG Base Excess Anion Gap Estim Creat Clear Calc Estimated GFR POC Glucose 565 H* Random Glucose Lactic Acid Lactic Acid F/U @ 2Hr Calcium Magnesium Total Bilirubin Direct Bilirubin AST ALT Alkaline Phosphatase Troponin I High Sens B-Natriuretic Peptide Total Protein Albumin Urine Color Urine Appearance Urine pH Ur Specific [place] Urine Protein Urine Glucose (UA) Urine Ketones Urine Blood Urine Nitrite Ur Leukocyte Esterase Urine RBC Urine WBC Ur Squamous Epith Cells Urine Bacteria Hyaline Casts Urine Opiates Screen Urine Fentanyl Screen Ur Barbiturates Screen Ur Phencyclidine Scrn Ur Amphetamines Screen U Benzodiazepines Scrn Urine Cocaine Screen U Marijuana (THC) Screen COVID-19 (EUSEBIO) Negative COVID-19 Clin Com See Note Influenza Type A (TIERNEY) Negative Influenza Type B (TIERNEY) Negative Influenza A & B Note See Note 08/24/22 08/24/22 08/24/22 21:00 22:18 22:18 MCV 87.3 MCH 29.1 MCHC 33.3 RDW 13.7 Plt Count 265 D MPV 10.7 Immature Gran % (Auto) 1.1 H Neut % (Auto) 86.8 H Lymph % (Auto) 7.5 L [place] % (Auto) 4.1 Eos % (Auto) 0.0 Baso % (Auto) 0.5 Lymph # (Auto) 1.7 [place] # (Auto) 0.9 Eos # (Auto) 0.0 Baso # (Auto) 0.1 Abs Immat Gran (auto) 0.25 H Absolute Neuts (auto) 19.5 H Absolute Nucleated RBC 0.030 H Nucleated RBC % (auto) 0.1 PT 10.8 INR 0.9 APTT 30.5 D-Dimer High Sensitivty 675 VBG pH VBG pCO2 VBG pO2 VBG HCO3 VBG O2 Saturation VBG Base Excess Anion Gap Estim Creat Clear Calc Estimated GFR POC Glucose Random Glucose Lactic Acid Lactic Acid F/U @ 2Hr Calcium Magnesium Total Bilirubin Direct Bilirubin AST ALT Alkaline Phosphatase Troponin I High Sens B-Natriuretic Peptide 314 H Total Protein Albumin Urine Color Urine Appearance Urine pH Ur Specific [place] Urine Protein Urine Glucose (UA) Urine Ketones Urine Blood Urine Nitrite Ur Leukocyte Esterase Urine RBC Urine WBC Ur Squamous Epith Cells Urine Bacteria Hyaline Casts Urine Opiates Screen Urine Fentanyl Screen Ur Barbiturates Screen Ur Phencyclidine Scrn Ur Amphetamines Screen U Benzodiazepines Scrn Urine Cocaine Screen U Marijuana (THC) Screen COVID-19 (EUSEBIO) COVID-19 Clin Com Influenza Type A (TIERNEY) Influenza Type B (TIERNEY) Influenza A & B Note 08/24/22 08/24/22 08/24/22 22:18 22:18 22:43 MCV MCH MCHC RDW Plt Count MPV Immature Gran % (Auto) Neut % (Auto) Lymph % (Auto) [place] % (Auto) Eos % (Auto) Baso % (Auto) Lymph # (Auto) [place] # (Auto) Eos # (Auto) Baso # (Auto) Abs Immat Gran (auto) Absolute Neuts (auto) Absolute Nucleated RBC Nucleated RBC % (auto) PT INR APTT D-Dimer High Sensitivty VBG pH VBG pCO2 VBG pO2 VBG HCO3 VBG O2 Saturation VBG Base Excess Anion Gap 19 Estim Creat Clear Calc 83.1 Estimated GFR > 60 POC Glucose Random Glucose 548 H* Lactic Acid 2.6 H* Lactic Acid F/U @ 2Hr Calcium 8.6 Magnesium 1.8 Total Bilirubin 0.3 Direct Bilirubin < 0.2 AST 23 ALT 16 Alkaline Phosphatase 137 H Troponin I High Sens 296.3 H* B-Natriuretic Peptide Total Protein 7.3 Albumin 3.8 Urine Color Urine Appearance Urine pH Ur Specific [place] Urine Protein Urine Glucose (UA) Urine Ketones Urine Blood Urine Nitrite Ur Leukocyte Esterase Urine RBC Urine WBC Ur Squamous Epith Cells Urine Bacteria Hyaline Casts Urine Opiates Screen Urine Fentanyl Screen Ur Barbiturates Screen Ur Phencyclidine Scrn Ur Amphetamines Screen U Benzodiazepines Scrn Urine Cocaine Screen U Marijuana (THC) Screen COVID-19 (EUSEBIO) COVID-19 Clin Com Influenza Type A (TIERNEY) Influenza Type B (TIERNEY) Influenza A & B Note 08/24/22 08/25/22 08/25/22 22:48 00:04 00:04 MCV MCH MCHC RDW Plt Count MPV Immature Gran % (Auto) Neut % (Auto) Lymph % (Auto) [place] % (Auto) Eos % (Auto) Baso % (Auto) Lymph # (Auto) [place] # (Auto) Eos # (Auto) Baso # (Auto) Abs Immat Gran (auto) Absolute Neuts (auto) Absolute Nucleated RBC Nucleated RBC % (auto) PT INR APTT D-Dimer High Sensitivty VBG pH 7.33 VBG pCO2 43 VBG pO2 41 VBG HCO3 22 VBG O2 Saturation 61.0 VBG Base Excess -3.0 Anion Gap Estim Creat Clear Calc Estimated GFR POC Glucose Random Glucose Lactic Acid Lactic Acid F/U @ 2Hr Calcium Magnesium Total Bilirubin Direct Bilirubin AST ALT Alkaline Phosphatase Troponin I High Sens B-Natriuretic Peptide Total Protein Albumin Urine Color Yellow Urine Appearance Clear Urine pH 5.5 Ur Specific [place] >= 1.030 H Urine Protein 100 (2+) H Urine Glucose (UA) >=1000 H Urine Ketones >=160 Urine Blood Small (1+) H Urine Nitrite Negative Ur Leukocyte Esterase Negative Urine RBC 0-2 Urine WBC 0-5 Ur Squamous Epith Cells 0-2 Urine Bacteria None Seen Hyaline Casts 0-2 Urine Opiates Screen Not Detected Urine Fentanyl Screen POSITIVE H Ur Barbiturates Screen Not Detected Ur Phencyclidine Scrn Not Detected Ur Amphetamines Screen Not Detected U Benzodiazepines Scrn Not Detected Urine Cocaine Screen Not Detected U Marijuana (THC) Screen POSITIVE H COVID-19 (EUSEBIO) COVID-19 Clin Com Influenza Type A (TIERNEY) Influenza Type B (TIERNEY) Influenza A & B Note 08/25/22 08/25/22 00:22 00:53 MCV MCH MCHC RDW Plt Count MPV Immature Gran % (Auto) Neut % (Auto) Lymph % (Auto) [place] % (Auto) Eos % (Auto) Baso % (Auto) Lymph # (Auto) [place] # (Auto) Eos # (Auto) Baso # (Auto) Abs Immat Gran (auto) Absolute Neuts (auto) Absolute Nucleated RBC Nucleated RBC % (auto) PT INR APTT D-Dimer High Sensitivty VBG pH VBG pCO2 VBG pO2 VBG HCO3 VBG O2 Saturation VBG Base Excess Anion Gap Estim Creat Clear Calc Estimated GFR POC Glucose 470 H* Random Glucose Lactic Acid Lactic Acid F/U @ 2Hr 3.2 H* Calcium Magnesium Total Bilirubin Direct Bilirubin AST ALT Alkaline Phosphatase Troponin I High Sens B-Natriuretic Peptide Total Protein Albumin Urine Color Urine Appearance Urine pH Ur Specific [place] Urine Protein Urine Glucose (UA) Urine Ketones Urine Blood Urine Nitrite Ur Leukocyte Esterase Urine RBC Urine WBC Ur Squamous Epith Cells Urine Bacteria Hyaline Casts Urine Opiates Screen Urine Fentanyl Screen Ur Barbiturates Screen Ur Phencyclidine Scrn Ur Amphetamines Screen U Benzodiazepines Scrn Urine Cocaine Screen U Marijuana (THC) Screen COVID-19 (EUSEBIO) COVID-19 Clin Com Influenza Type A (TIERNEY) Influenza Type B (TIERNEY) Influenza A & B Note Imaging Radiologist's Impressions: Impressions Chest X-Ray 08/24/22 23:00 IMPRESSION: New airspace opacities in the right mid and lower lung concerning for aspiration or pneumonia in the appropriate clinical context. Recommend a follow-up imaging after treatment to ensure appropriate resolution. Chest CTA 08/25/22 00:30 IMPRESSION: 1. Extensive bilateral pulmonary emboli involving the left and right main pulmonary arteries and multiple segmental branches. There is enlargement of the right-sided heart chambers and reflux of contrast into the hepatic veins suggesting elevated right-sided heart pressures. 2. Multifocal groundglass opacities concerning for an an atypical multifocal pneumonia and/or infarctions in the setting of the extensive pulmonary emboli. Continued follow-up recommended. 3. Very large anterior diaphragmatic hernia exerting mass effect upon the cardiomediastinal structures and containing nonobstructive loops of colon. 4. Hepatic steatosis with an indeterminate hypodensity in the right hepatic lobe. Recommend further characterization with an abdominal MRI with and without IV contrast. VTE: positive This critical result was discussed with Kristin Verdugo at 08/25/2022 12:47 AM and it was ascertained that the content and urgency of the report was understood at the time of direct communication. Assessment and Plan (1) Bilateral pulmonary embolism: Status: Acute (2) Acute hyperglycemia: Status: Acute Plan This is a 52-year-old female with pertinent history of PE on Eliquis, opioid use disorder on methadone, essential hypertension, COPD, insulin-dependent diabetes mellitus who presents to emergency department evaluation of dyspnea. #. Acute hypoxemic respiratory failure due to: #. Acute bilateral submassive pulmonary embolism -will admit patient with telemetry monitor and continue IV heparin. Noted elevated right sided pressures. Pulmonology was consulted from the ER, defer tPA as patient is hemodynamically stable as per Dr Bustamante. Monitor oxygen saturation and wean as tolerated. Currently requiring 6 L supplemental oxygen #. Sepsis due to Right-sided community-acquired pneumonia: Will treat empirically with IV antibiotics. Lactic acid and blood cultures obtained. Resuscitated with IV crystalloids in the ER #. Type A lactic acidosis: Due to hypoxia. #. Insulin-dependent diabetes mellitus with uncontrolled hyperglycemia: Due to medication noncompliance. Initiating basal plus regimen #. Hypokalemia: Repleted #. Elevated troponin and BNP: Due to submassive PE. Patient on IV heparin #. Substance use disorder: Patient states she last used opioids in June but urine drug screen positive for fentanyl and marijuana. Consulted Addiction team and CARE team Med rec pending DVT prophylaxis: Heparin Cardiac diet Full code Admit as inpatient and will require two night minimum hospital stay for IV heparin and supplemental oxygen Time Spent With Patient Time: Total time managing care of this patient today ____ minutes. Quality Stroke Does the patient have a stroke diagnosis?: No VTE Prior VTE?: No VTE Risk Level:: Medical - moderate - high VTE Device Contraindication: Treatment Not Indicated VTE Drug Contraindication: N/A - Med Ordered
[2022-08-25 02:58] LABS: Reflex Lactate? 2 Y
[2022-08-25 04:59] LABS: Lactic Acid 1.6 mmol/L (0.5-2.0)
[2022-08-25 05:55] LABS: Glucose, Whole Blood 493 mg/dL (60-115)
[2022-08-25 07:34] LABS: Alanine Aminotransferase 17 U/L (0-31); Albumin Level 3.7 g/dL (3.5-5.0); Alkaline Phosphatase 139 U/L (39-117); Aspartate Amino Transferase 25 U/L (5-31); Bilirubin Total 0.3 mg/dL (0.0-1.0); Blood Urea Nitrogen 10 mg/dL (9-16); Calcium 8.3 mg/dL (8.4-10.2); Creatinine Clr Calc Pharmacy 94.6; Estimated Glomerular Filt Rate > 60; Total Protein 7.1 g/dL (6.5-8.0)
[2022-08-25 07:46] LABS: Glucose Random 451 mg/dL (60-115)
[2022-08-25 07:57] LABS: Anion Gap 20 (12-20); Carbon Dioxide 19 mmol/L (22-29); Chloride 99 mmol/L (96-108); Potassium 3.7 mmol/L (3.3-5.1); Sodium 134 mmol/L (135-145)
[2022-08-25 07:58] LABS: Hematocrit 37.2 % (37.0-47.0); Hemoglobin 12.1 g/dl (12.0-16.0); Mean Corpuscular HGB Conc 32.5 g/dl (31.0-35.0); Mean Corpuscular Hemoglobin 28.9 pg (27.0-33.0); Mean Corpuscular Volume 88.8 fL (80.0-98.0); Mean Platelet Volume 10.8 fL (9.4-12.3); Platelet Count 210 X10*3/uL (160-400); Red Blood Count 4.19 X10*6/uL (4.20-5.50); Red Cell Distribution Width 13.9 % (11.0-16.0); White Blood Count 18.9 X10*3/uL (4.8-10.8)
[2022-08-25 08:00] LABS: Glucose, Whole Blood 432 mg/dL (60-115)
[2022-08-25 08:02] LABS: Prothrombin Time 11.5 SEC (10.0-13.1)
[2022-08-25 08:05] LABS: PTT Heparin Drip 34.6 SEC (53-77.9)
[2022-08-25] MEDS: Heparin Sodium,Porcine 5,000 UNIT/ML VIAL 4000 UNIT IVPUSH ×2 (08:34→09:41)
[2022-08-25 09:05] LABS: Estimated Average Glucose 341 mg/dL; Hemoglobin A1c % 13.5 %
--- NOTE | 2022-08-25 09:05 | MHC.CM.PN ---
CM met with Patient at bedside. Patient lives in an apartment with her Adult Son and she uses crutches and a w/c to assist with mobility. Home/resume Methadone from [facility], ? new VNA,? Recovery intervention (positive for Fentanyl & Marijuana)is the tentative plan and CM has initiated and will follow for dc planning. Patient has received [employer] vax x2 and her PCP is Dr. Nikhil Stewart.
[2022-08-25] MEDS: Gabapentin 400 MG CAPSULE PO ×4 (09:20→22:39)
[2022-08-25] MEDS: Insulin Lispro 100 UNIT/ML 3 ML VIAL SUBCUT ×4 (09:20→22:43)
[2022-08-25] MEDS: lisinopriL 5 MG TABLET PO (09:20)
--- NOTE | 2022-08-25 09:30 | PC.NURSE ---
Titrated and followed protocol for heparint gtt. There was an under bolus and corrected with in 1 hour with pharmacy directions and confirmation. Howerer, lab PTT blood work at 10:15 was not the original order I put in. notified and adjusted per protocol
[2022-08-25] MEDS: Acetaminophen 325 MG TABLET 650 MG PO (09:43)
[2022-08-25 10:57] LABS: Glucose, Whole Blood 374 mg/dL (60-115)
[2022-08-25 11:28] LABS: PTT Heparin Drip 195.1 SEC (53-77.9)
--- NOTE | 2022-08-25 11:53 | PM.EVENT ---
Event Note Date of Service: 08/25/22 Event Note: 52-year-old female with pertinent history of PE on Eliquis, opioid use disorder on methadone, essential hypertension, COPD, insulin-dependent diabetes mellitus who presents to emergency department evaluation of dyspnea. #.? Acute hypoxemic respiratory failure due to Acute bilateral submassive pulmonary embolism Continue IV heparin patient recently stopped Eliquis for prior episode of bilateral PE and right leg DVT, patient denies prolonged immobilization although does not ambulate long distances requires wheelchair Denies lower extremity pain feels like swelling has improved from baseline shortness of breath is better, denies chest pain, will re-consult Dr. Ortiz at a.m. regarding recurrent PE will obtain lower extremity Doppler #.? Sepsis due to Right-sided community-acquired pneumonia:? Continue IV antibiotics. Lactic acid 3.2 improved to 1.6 with IV fluids? #.? Type A lactic acidosis: Resolved with IV fluids? #.? Insulin-dependent diabetes mellitus with uncontrolled hyperglycemia:? Due to medication noncompliance, noted to have elevated blood sugars will increase dose of bolus and basal insulin.? #.? Hypokalemia: Repleted, repeat normalized #.? Elevated troponin and BNP: Due to submassive PE.? Patient on IV heparin #.? Substance use disorder:? Patient states she last used opioids in June but urine drug screen positive for fentanyl and marijuana.? Consulted Addiction team and CARE team, resume methadone # tobacco use disorder will place on nicotine patch # history of anxiety will obtain psych eval DVT prophylaxis:? Heparin Full code will require continued inpatient hospitalization for IV heparin, IV antibiotics and supplemental oxygen. Time Spent With Patient Time: Total time managing care of this patient today ____ minutes.
[2022-08-25] MEDS: Nicotine 21 MG PATCH.TD24 TRANSDERMA (12:08)
[2022-08-25 13:08] LABS: PTT Heparin Drip 40.9 SEC (53-77.9)
--- NOTE | 2022-08-25 13:23 | HE.PHANOTE ---
METHADONE CONFIRMATION FORM RECEIVED FOR 120MG
--- NOTE | 2022-08-25 13:40 | MHC.CM.PN ---
CM spoke with Patient's Daughter/Nikia, who explained that about a year and a half ago, when Patient was last here as a Patient, apparently she had a visitor who brought in drugs to her. In an attempt to avoid a similar occurrence, Nikia and the Patient are interested in formulating a list of approved visitors. Because this CM has never been involved with such a request, CM has reached out to CM Management and Nursing Fur Glazer for assistance. CM will follow further as needed.
[2022-08-25] MEDS: methADONE HCl 20 MG/2 ML ORAL.CONC 120 MG PO (14:10)
--- NOTE | 2022-08-25 14:28 | MHC.CM.PN ---
CM met with Patient at bedside and assisted her in compiling a list of her approved visitors. Approved Visitors are: Nikia Mayen, Jacinto Terrazas, Danial Siddiqui,and Dyana Henry. A copy of this list has been given to the RN on the floor, who has been asked to pass this list on in report, Chocolate Maker, Regional Education Manager on the first floor and momentarily will be given to the Nursing Clothing Room Supervisor(placed in her box outside her office per her request). Patient has been informed that staff will make every effort to honor this list but there are no absolute guarantees; Patient was completely understanding of this fact and explained that she is in a much better place now and is not even tempted to get involved with drugs. CM will follow. A copy of the list will also be placed on Patient's physical chart.
--- NOTE | 2022-08-25 14:59 | PM.PSYCN ---
History of Present Illness Date of Service: 08/25/22 Chief Complaint: Dyspnea Reason for Consult: medication management Requesting physician: David Gamboa Discussed with referring provider: Yes Sources of Information: patient interviewed, chart reviewed and crisis/core team assessment reviewed Additional Sources of Information: Met with patient; Reviewed hospitalist note; discussed case with hospitalist; reviewed addiction consult notes current and past HPI Narrative: Patient is a 52-year-old female with history of anxiety, benzodiazepine abuse/dependence, opioid use disorder on methadone, PE on Eliquis, essential hypertension, COPD, insulin-dependent diabetes mellitus who presents to emergency department evaluation of dyspnea and subsequently found to have bilateral PE. Patient on the medical floor being treated for hypoxemia and sepsis due to Right-sided community-acquired pneumonia, currently on IV antibiotics. Patient is reportedly doing better. Patient complains of chronic anxiety and psychiatry consulted for medication management. Patient was calm, cooperative on approach. She reports chronic anxiety but denies depression or any SI. Patient said that for 30 years she was addicted to Xanax; she was tapered down and got to a low dose of benzos, on sertraline 100 mg b.i.d. and gabapentin and reports she was overall doing well. Patient had 1 relapse about a year ago and reports she was discharged from her clinic and was not continued on sertraline. She thinks sertraline might have helped some but maintains it was because it was combined with benzodiazepines and gabapentin. Patient says she is willing to get back on sertraline but only if she is also restarted on benzodiazepines. She said currently her PCP will not prescribe benzos and it would require this engineering technical writer to talk to PCP about it. Patient reports that she is on gabapentin 400 mg q.i.d. and that it does help with anxiety; she was thus willing to try an extra p.r.n. gabapentin daily and also restart Zoloft. She asks for a referral for psychiatric prescriber in the community. Consumer Experience Consultant reviewed her history and she denies history of manic type episodes or behaviors. Past Psychiatric History: Has (or had?) psychiatrist, Dr. Shawnee Cooper. (patient says she does not currently have a prescriber) Medical Evaluation Reviewed: Yes [facility] Medical History (Updated 08/25/22 @ 15:12 by Jerry Mora MD) Acute respiratory failure with hypoxia Anxiety Diabetes NSTEMI (non-ST elevated myocardial infarction) Opioid use disorder Osteomyelitis Pulmonary embolism Substance abuse Surgical History S/P amputation of foot Status post transmetatarsal amputation of right foot (09/24/21) Family History: Deferred Social History: Lives at home with her son and daughter Substance History: History of benzo and opiate abuse Trauma History: Deferred Diagnostics Vital Signs (24Hr): Vital Signs - 24 hr 08/24/22 20:08 08/24/22 22:38 08/25/22 00:57 Temperature 98.7 F 98.2 F Pulse Rate 130 H 121 H 116 H Respiratory Rate 16 32 H 28 H Blood Pressure 195/111 H 152/95 H Pulse Oximetry 87 L 93 90 L Oxygen Delivery Method Room Air Room Air Nasal Cannula Oxygen Flow Rate 6 08/25/22 05:07 08/25/22 07:24 08/25/22 11:05 Temperature 98.8 F 98.7 F 98.0 F Pulse Rate 65 94 95 Respiratory Rate 20 20 24 H Blood Pressure 176/83 H 157/84 H 132/82 Pulse Oximetry 93 94 92 Oxygen Delivery Method Nasal Cannula Nasal Cannula Nasal Cannula Oxygen Flow Rate 6 5.5 5.5 BMI result Body Mass Index 35.6 Labs 08/25/22 07:29 08/25/22 05:47 Labs: Laboratory Results - last 48 hr 08/24/22 08/24/22 08/24/22 20:09 20:54 20:54 WBC RBC Hgb Hct MCV MCH MCHC RDW Plt Count MPV Immature Gran % (Auto) Neut % (Auto) Lymph % (Auto) [place] % (Auto) Eos % (Auto) Baso % (Auto) Lymph # (Auto) [place] # (Auto) Eos # (Auto) Baso # (Auto) Abs Immat Gran (auto) Absolute Neuts (auto) Absolute Nucleated RBC Nucleated RBC % (auto) PT INR APTT aPTT Heparin Protocol D-Dimer High Sensitivty VBG pH VBG pCO2 VBG pO2 VBG HCO3 VBG O2 Saturation VBG Base Excess Sodium Potassium Chloride Carbon Dioxide Anion Gap BUN Creatinine Estim Creat Clear Calc Estimated GFR POC Glucose 565 H* Random Glucose Estimat Average Glucose Hemoglobin A1c % Lactic Acid Lactic Acid F/U @ 2Hr Calcium Magnesium Total Bilirubin Direct Bilirubin AST ALT Alkaline Phosphatase Troponin I High Sens B-Natriuretic Peptide Total Protein Albumin Urine Color Urine Appearance Urine pH Ur Specific [place] Urine Protein Urine Glucose (UA) Urine Ketones Urine Blood Urine Nitrite Ur Leukocyte Esterase Urine RBC Urine WBC Ur Squamous Epith Cells Urine Bacteria Hyaline Casts Urine Opiates Screen Urine Fentanyl Screen Ur Barbiturates Screen Ur Phencyclidine Scrn Ur Amphetamines Screen U Benzodiazepines Scrn Urine Cocaine Screen U Marijuana (THC) Screen COVID-19 (EUSEBIO) Negative COVID-19 Clin Com See Note Influenza Type A (TIERNEY) Negative Influenza Type B (TIERNEY) Negative Influenza A & B Note See Note 08/24/22 08/24/22 08/24/22 21:00 22:18 22:18 WBC 22.5 H RBC 4.88 D Hgb 14.2 D Hct 42.6 D MCV 87.3 MCH 29.1 MCHC 33.3 RDW 13.7 Plt Count 265 D MPV 10.7 Immature Gran % (Auto) 1.1 H Neut % (Auto) 86.8 H Lymph % (Auto) 7.5 L [place] % (Auto) 4.1 Eos % (Auto) 0.0 Baso % (Auto) 0.5 Lymph # (Auto) 1.7 [place] # (Auto) 0.9 Eos # (Auto) 0.0 Baso # (Auto) 0.1 Abs Immat Gran (auto) 0.25 H Absolute Neuts (auto) 19.5 H Absolute Nucleated RBC 0.030 H Nucleated RBC % (auto) 0.1 PT 10.8 INR 0.9 APTT 30.5 aPTT Heparin Protocol D-Dimer High Sensitivty 675 VBG pH VBG pCO2 VBG pO2 VBG HCO3 VBG O2 Saturation VBG Base Excess Sodium Potassium Chloride Carbon Dioxide Anion Gap BUN Creatinine Estim Creat Clear Calc Estimated GFR POC Glucose Random Glucose Estimat Average Glucose Hemoglobin A1c % Lactic Acid Lactic Acid F/U @ 2Hr Calcium Magnesium Total Bilirubin Direct Bilirubin AST ALT Alkaline Phosphatase Troponin I High Sens B-Natriuretic Peptide 314 H Total Protein Albumin Urine Color Urine Appearance Urine pH Ur Specific [place] Urine Protein Urine Glucose (UA) Urine Ketones Urine Blood Urine Nitrite Ur Leukocyte Esterase Urine RBC Urine WBC Ur Squamous Epith Cells Urine Bacteria Hyaline Casts Urine Opiates Screen Urine Fentanyl Screen Ur Barbiturates Screen Ur Phencyclidine Scrn Ur Amphetamines Screen U Benzodiazepines Scrn Urine Cocaine Screen U Marijuana (THC) Screen COVID-19 (EUSEBIO) COVID-19 Clin Com Influenza Type A (TIERNEY) Influenza Type B (TIERNEY) Influenza A & B Note 08/24/22 08/24/22 08/24/22 22:18 22:18 22:43 WBC RBC Hgb Hct MCV MCH MCHC RDW Plt Count MPV Immature Gran % (Auto) Neut % (Auto) Lymph % (Auto) [place] % (Auto) Eos % (Auto) Baso % (Auto) Lymph # (Auto) [place] # (Auto) Eos # (Auto) Baso # (Auto) Abs Immat Gran (auto) Absolute Neuts (auto) Absolute Nucleated RBC Nucleated RBC % (auto) PT INR APTT aPTT Heparin Protocol D-Dimer High Sensitivty VBG pH VBG pCO2 VBG pO2 VBG HCO3 VBG O2 Saturation VBG Base Excess Sodium 133 L Potassium 3.1 L D Chloride 97 Carbon Dioxide 20 L Anion Gap 19 BUN 10 Creatinine 0.88 Estim Creat Clear Calc 83.1 Estimated GFR > 60 POC Glucose Random Glucose 548 H* Estimat Average Glucose Hemoglobin A1c % Lactic Acid 2.6 H* Lactic Acid F/U @ 2Hr Calcium 8.6 Magnesium 1.8 Total Bilirubin 0.3 Direct Bilirubin < 0.2 AST 23 ALT 16 Alkaline Phosphatase 137 H Troponin I High Sens 296.3 H* B-Natriuretic Peptide Total Protein 7.3 Albumin 3.8 Urine Color Urine Appearance Urine pH Ur Specific [place] Urine Protein Urine Glucose (UA) Urine Ketones Urine Blood Urine Nitrite Ur Leukocyte Esterase Urine RBC Urine WBC Ur Squamous Epith Cells Urine Bacteria Hyaline Casts Urine Opiates Screen Urine Fentanyl Screen Ur Barbiturates Screen Ur Phencyclidine Scrn Ur Amphetamines Screen U Benzodiazepines Scrn Urine Cocaine Screen U Marijuana (THC) Screen COVID-19 (EUSEBIO) COVID-19 Clin Com Influenza Type A (TIERNEY) Influenza Type B (TIERNEY) Influenza A & B Note 08/24/22 08/25/22 08/25/22 22:48 00:04 00:04 WBC RBC Hgb Hct MCV MCH MCHC RDW Plt Count MPV Immature Gran % (Auto) Neut % (Auto) Lymph % (Auto) [place] % (Auto) Eos % (Auto) Baso % (Auto) Lymph # (Auto) [place] # (Auto) Eos # (Auto) Baso # (Auto) Abs Immat Gran (auto) Absolute Neuts (auto) Absolute Nucleated RBC Nucleated RBC % (auto) PT INR APTT aPTT Heparin Protocol D-Dimer High Sensitivty VBG pH 7.33 VBG pCO2 43 VBG pO2 41 VBG HCO3 22 VBG O2 Saturation 61.0 VBG Base Excess -3.0 Sodium Potassium Chloride Carbon Dioxide Anion Gap BUN Creatinine Estim Creat Clear Calc Estimated GFR POC Glucose Random Glucose Estimat Average Glucose Hemoglobin A1c % Lactic Acid Lactic Acid F/U @ 2Hr Calcium Magnesium Total Bilirubin Direct Bilirubin AST ALT Alkaline Phosphatase Troponin I High Sens B-Natriuretic Peptide Total Protein Albumin Urine Color Yellow Urine Appearance Clear Urine pH 5.5 Ur Specific [place] >= 1.030 H Urine Protein 100 (2+) H Urine Glucose (UA) >=1000 H Urine Ketones >=160 Urine Blood Small (1+) H Urine Nitrite Negative Ur Leukocyte Esterase Negative Urine RBC 0-2 Urine WBC 0-5 Ur Squamous Epith Cells 0-2 Urine Bacteria None Seen Hyaline Casts 0-2 Urine Opiates Screen Not Detected Urine Fentanyl Screen POSITIVE H Ur Barbiturates Screen Not Detected Ur Phencyclidine Scrn Not Detected Ur Amphetamines Screen Not Detected U Benzodiazepines Scrn Not Detected Urine Cocaine Screen Not Detected U Marijuana (THC) Screen POSITIVE H COVID-19 (EUSEBIO) COVID-19 Clin Com Influenza Type A (TIERNEY) Influenza Type B (TIERNEY) Influenza A & B Note 08/25/22 08/25/22 08/25/22 00:22 00:53 04:34 WBC RBC Hgb Hct MCV MCH MCHC RDW Plt Count MPV Immature Gran % (Auto) Neut % (Auto) Lymph % (Auto) [place] % (Auto) Eos % (Auto) Baso % (Auto) Lymph # (Auto) [place] # (Auto) Eos # (Auto) Baso # (Auto) Abs Immat Gran (auto) Absolute Neuts (auto) Absolute Nucleated RBC Nucleated RBC % (auto) PT INR APTT aPTT Heparin Protocol D-Dimer High Sensitivty VBG pH VBG pCO2 VBG pO2 VBG HCO3 VBG O2 Saturation VBG Base Excess Sodium Potassium Chloride Carbon Dioxide Anion Gap BUN Creatinine Estim Creat Clear Calc Estimated GFR POC Glucose 470 H* Random Glucose Estimat Average Glucose Hemoglobin A1c % Lactic Acid 1.6 Lactic Acid F/U @ 2Hr 3.2 H* Calcium Magnesium Total Bilirubin Direct Bilirubin AST ALT Alkaline Phosphatase Troponin I High Sens B-Natriuretic Peptide Total Protein Albumin Urine Color Urine Appearance Urine pH Ur Specific [place] Urine Protein Urine Glucose (UA) Urine Ketones Urine Blood Urine Nitrite Ur Leukocyte Esterase Urine RBC Urine WBC Ur Squamous Epith Cells Urine Bacteria Hyaline Casts Urine Opiates Screen Urine Fentanyl Screen Ur Barbiturates Screen Ur Phencyclidine Scrn Ur Amphetamines Screen U Benzodiazepines Scrn Urine Cocaine Screen U Marijuana (THC) Screen COVID-19 (EUSEBIO) COVID-19 Clin Com Influenza Type A (TIERNEY) Influenza Type B (TIERNEY) Influenza A & B Note 08/25/22 08/25/22 08/25/22 05:47 05:52 07:29 WBC 18.9 H RBC 4.19 L Hgb 12.1 Hct 37.2 MCV 88.8 MCH 28.9 MCHC 32.5 RDW 13.9 Plt Count 210 MPV 10.8 Immature Gran % (Auto) Neut % (Auto) Lymph % (Auto) [place] % (Auto) Eos % (Auto) Baso % (Auto) Lymph # (Auto) [place] # (Auto) Eos # (Auto) Baso # (Auto) Abs Immat Gran (auto) Absolute Neuts (auto) Absolute Nucleated RBC 0.000 Nucleated RBC % (auto) 0.0 PT INR APTT aPTT Heparin Protocol D-Dimer High Sensitivty VBG pH VBG pCO2 VBG pO2 VBG HCO3 VBG O2 Saturation VBG Base Excess Sodium 134 L Potassium 3.7 Chloride 99 Carbon Dioxide 19 L Anion Gap 20 BUN 10 Creatinine 0.83 Estim Creat Clear Calc 94.6 Estimated GFR > 60 POC Glucose 493 H* Random Glucose 451 H* Estimat Average Glucose Hemoglobin A1c % Lactic Acid Lactic Acid F/U @ 2Hr Calcium 8.3 L Magnesium Total Bilirubin 0.3 Direct Bilirubin AST 25 ALT 17 Alkaline Phosphatase 139 H Troponin I High Sens B-Natriuretic Peptide Total Protein 7.1 Albumin 3.7 Urine Color Urine Appearance Urine pH Ur Specific [place] Urine Protein Urine Glucose (UA) Urine Ketones Urine Blood Urine Nitrite Ur Leukocyte Esterase Urine RBC Urine WBC Ur Squamous Epith Cells Urine Bacteria Hyaline Casts Urine Opiates Screen Urine Fentanyl Screen Ur Barbiturates Screen Ur Phencyclidine Scrn Ur Amphetamines Screen U Benzodiazepines Scrn Urine Cocaine Screen U Marijuana (THC) Screen COVID-19 (EUSEBIO) COVID-19 Clin Com Influenza Type A (TIERNEY) Influenza Type B (TIERNEY) Influenza A & B Note 08/25/22 08/25/22 08/25/22 07:29 07:29 07:56 WBC RBC Hgb Hct MCV MCH MCHC RDW Plt Count MPV Immature Gran % (Auto) Neut % (Auto) Lymph % (Auto) [place] % (Auto) Eos % (Auto) Baso % (Auto) Lymph # (Auto) [place] # (Auto) Eos # (Auto) Baso # (Auto) Abs Immat Gran (auto) Absolute Neuts (auto) Absolute Nucleated RBC Nucleated RBC % (auto) PT 11.5 INR 1.0 APTT aPTT Heparin Protocol 34.6 L D-Dimer High Sensitivty VBG pH VBG pCO2 VBG pO2 VBG HCO3 VBG O2 Saturation VBG Base Excess Sodium Potassium Chloride Carbon Dioxide Anion Gap BUN Creatinine Estim Creat Clear Calc Estimated GFR POC Glucose 432 H* Random Glucose Estimat Average Glucose 341 Hemoglobin A1c % 13.5 Lactic Acid Lactic Acid F/U @ 2Hr Calcium Magnesium Total Bilirubin Direct Bilirubin AST ALT Alkaline Phosphatase Troponin I High Sens B-Natriuretic Peptide Total Protein Albumin Urine Color Urine Appearance Urine pH Ur Specific [place] Urine Protein Urine Glucose (UA) Urine Ketones Urine Blood Urine Nitrite Ur Leukocyte Esterase Urine RBC Urine WBC Ur Squamous Epith Cells Urine Bacteria Hyaline Casts Urine Opiates Screen Urine Fentanyl Screen Ur Barbiturates Screen Ur Phencyclidine Scrn Ur Amphetamines Screen U Benzodiazepines Scrn Urine Cocaine Screen U Marijuana (THC) Screen COVID-19 (EUSEBIO) COVID-19 Clin Com Influenza Type A (TIERNEY) Influenza Type B (TIERNEY) Influenza A & B Note 08/25/22 08/25/22 08/25/22 10:14 10:52 12:44 WBC RBC Hgb Hct MCV MCH MCHC RDW Plt Count MPV Immature Gran % (Auto) Neut % (Auto) Lymph % (Auto) [place] % (Auto) Eos % (Auto) Baso % (Auto) Lymph # (Auto) [place] # (Auto) Eos # (Auto) Baso # (Auto) Abs Immat Gran (auto) Absolute Neuts (auto) Absolute Nucleated RBC Nucleated RBC % (auto) PT INR APTT aPTT Heparin Protocol 195.1 H* D 40.9 L D D-Dimer High Sensitivty VBG pH VBG pCO2 VBG pO2 VBG HCO3 VBG O2 Saturation VBG Base Excess Sodium Potassium Chloride Carbon Dioxide Anion Gap BUN Creatinine Estim Creat Clear Calc Estimated GFR POC Glucose 374 H* Random Glucose Estimat Average Glucose Hemoglobin A1c % Lactic Acid Lactic Acid F/U @ 2Hr Calcium Magnesium Total Bilirubin Direct Bilirubin AST ALT Alkaline Phosphatase Troponin I High Sens B-Natriuretic Peptide Total Protein Albumin Urine Color Urine Appearance Urine pH Ur Specific [place] Urine Protein Urine Glucose (UA) Urine Ketones Urine Blood Urine Nitrite Ur Leukocyte Esterase Urine RBC Urine WBC Ur Squamous Epith Cells Urine Bacteria Hyaline Casts Urine Opiates Screen Urine Fentanyl Screen Ur Barbiturates Screen Ur Phencyclidine Scrn Ur Amphetamines Screen U Benzodiazepines Scrn Urine Cocaine Screen U Marijuana (THC) Screen COVID-19 (EUSEBIO) COVID-19 Clin Com Influenza Type A (TIERNEY) Influenza Type B (TIERNEY) Influenza A & B Note Imaging Radiology Impressions: ITS Impressions Chest X-Ray 08/24/22 23:00 IMPRESSION: New airspace opacities in the right mid and lower lung concerning for aspiration or pneumonia in the appropriate clinical context. Recommend a follow-up imaging after treatment to ensure appropriate resolution. Chest CTA 08/25/22 00:30 IMPRESSION: 1. Extensive bilateral pulmonary emboli involving the left and right main pulmonary arteries and multiple segmental branches. There is enlargement of the right-sided heart chambers and reflux of contrast into the hepatic veins suggesting elevated right-sided heart pressures. 2. Multifocal groundglass opacities concerning for an an atypical multifocal pneumonia and/or infarctions in the setting of the extensive pulmonary emboli. Continued follow-up recommended. 3. Very large anterior diaphragmatic hernia exerting mass effect upon the cardiomediastinal structures and containing nonobstructive loops of colon. 4. Hepatic steatosis with an indeterminate hypodensity in the right hepatic lobe. Recommend further characterization with an abdominal MRI with and without IV contrast. VTE: positive This critical result was discussed with Kristin Verdugo at 08/25/2022 12:47 AM and it was ascertained that the content and urgency of the report was understood at the time of direct communication. Mental Status Exam Mental Status Exam Narrative: Pt is alert and oriented; behavior is cooperative, friendly and calm; in some mild, intermittent respiratory distress; dressed in hospital attire with unkempt hair; mood is described as better and affect congruent; eye contact appropriate; Speech is normal rate, volume and prosody and not essured; no psychomotor agitation/retardation present; thought process is organized and goal directed; Thought content is on tx; otherwise pertinent to relevant topics and without any delusional content, paranoid ideations or grandiosity; denies any SI/HI. There is no evidence of perceptual disturbance. Patients insight and judgment appear intact. Medications Medications Current Medications Acetaminophen (Acetaminophen 325 Mg Tablet) 650 mg PO Q6H PRN PRN Reason: Pain, Mild (Pain Scale 1-3) Last Admin: 08/25/22 09:43 Dose: 650 mg Amlodipine Besylate (Amlodipine Besylate 10 Mg Tablet) 10 mg PO BEDTIME DADA; Protocol Dextrose (Dextrose 50 % 25 Gm/50 Ml Syringe) 25 gm IVPUSH Q15M PRN; Protocol PRN Reason: per Hypoglycemia Standing Ord. Gabapentin (Gabapentin 400 Mg Capsule) 400 mg PO QID DADA Last Admin: 08/25/22 11:50 Dose: 400 mg Glucose (Glucose Gel 15 Gm Gel..Gram.) 15 gm PO Q15M PRN; Protocol PRN Reason: per Hypoglycemia Standing Ord. Heparin Sodium (Porcine) (Heparin Sodium,Porcine 5,000 Unit/Ml Vial) 4,000 unit 40 unit/kg (4000 unit) IVPUSH PROTOCOL BOLUS PRN; Protocol PRN Reason: 40 unit/kg - Heparin Protocol Last Admin: 08/25/22 09:41 Dose: 4,000 unit Heparin Sodium (Porcine) (Heparin Sodium,Porcine 5,000 Unit/Ml Vial) 8,000 unit 80 unit/kg (8000 unit) IVPUSH PROTOCOL BOLUS PRN; Protocol PRN Reason: 80 unit/kg - Heparin Protocol Heparin Sodium/Sodium Chloride (Heparin Sodium,Porcine/1/2ns) 25,000 unit in 250 mls @ 12.19 mls/hr IVCONT .[id number] DADA; Protocol Last Titration: 08/25/22 13:45 Dose: 14 units/kg/hr, 12.19 mls/hr Azithromycin 500 mg/ Sodium (Chloride) 250 mls @ 125 mls/hr IV Q24H DADA Ceftriaxone Sodium 1 gm/ (Sodium Chloride) 50 mls @ 100 mls/hr IV Q24H DADA Insulin Glargine (Insulin Glargine,Hum.Rec.Anlog 100 Unit/Ml 10 Ml Vial) 30 unit SUBCUT BEDTIME DADA Insulin Human Lispro (Insulin Lispro 100 Unit/Ml 3 Ml Vial) 0 unit SUBCUT QIDACHS DADA; Protocol Last Admin: 08/25/22 11:50 Dose: 14 unit Lisinopril (Lisinopril 5 Mg Tablet) 5 mg PO DAILY [facility]; Protocol Last Admin: 08/25/22 09:20 Dose: 5 mg Melatonin (Melatonin 3 Mg Tablet) 6 mg PO BEDTIME PRN PRN Reason: Insomnia Methadone HCl (Methadone Hcl 20 Mg/2 Ml Oral.Conc) 120 mg PO DAILY [facility] Last Admin: 08/25/22 14:10 Dose: 120 mg Nicotine (Nicotine 21 Mg Patch.Td24) 21 mg TRANSDERMA DAILY [facility] Last Admin: 08/25/22 12:08 Dose: 21 mg Ondansetron HCl (Ondansetron Hcl 4 Mg/2 Ml Vial) 4 mg IVPUSH Q8H PRN PRN Reason: Nausea and Vomiting Pharmacy Consult (Consult Rx Perform Med Rec) 1 each MISCELLANE ONCE PRN PRN Reason: Consult order Sodium Chloride (0.9 % Sodium Chloride Flush 3 Ml Syringe) 3 ml IVFLUSH QSHIFT [facility] Last Admin: 08/25/22 09:20 Dose: Not Given Allergies Allergies Allergy/AdvReac Type Severity Reaction Status Date / Time prednisone [PREDNISONE] Allergy Unknown RASH Verified 09/24/21 11:47 Assessment & Plan Assessment & Plan (1) Anxiety: Status: Acute Code(s): F41.9 - Anxiety disorder, unspecified (2) Pneumonia: Status: Acute Code(s): J18.9 - Pneumonia, unspecified organism (3) Bilateral pulmonary embolism: Status: Acute Code(s): I26.99 - Other pulmonary embolism without acute cor pulmonale Plan Patient is a 52-year-old female with history of anxiety, benzodiazepine abuse/dependence, opioid use disorder on methadone, PE on Eliquis, essential hypertension, COPD, insulin-dependent diabetes mellitus who presents to emergency department evaluation of dyspnea and subsequently found to have bilateral PE. Patient on the medical floor being treated for hypoxemia and sepsis due to Right-sided community-acquired pneumonia, currently on IV antibiotics. Patient complains of chronic anxiety and psychiatry consulted for medication management. Impression: Patient has long history of substance abuse. Initially patient refused to get back on sertraline unless she would also be prescribed a benzodiazepine. Given patient's addiction history, engineering technical writer does not recommend that patient be prescribed benzodiazepines at this time; rather patient should establish outpatient care with psychiatric prescriber who can reassess her need for a benzo (for panic) in that setting. However patient does agree to restarting sertraline, which she said was partially helpful, if also in addition to trying gabapentin 300 mg daily p.r.n. for breakthrough anxiety. Patient is already on gabapentin and adding 300 mg extra as a daily p.r.n. amounts to low extra risk. Recommendation: Start Zoloft 50 mg daily; titrate by 25 mg Q weekly as clinically indicated Start gabapentin 300 mg p.r.n. daily for anxiety Total time managing care of this patient today 40 minutes. Met with patient; Reviewed hospitalist note; discussed case with hospitalist; reviewed addiction consult notes current and past; reviewed labwork Patient educated on: diagnosis, medication risk/benefits, substance abuse and medical condition Informed Consent: understands
--- NOTE | 2022-08-25 15:25 | MHC.RECOVRN ---
This credit underwriter met w/ patient, patient alert sitting up in bed, eating lunch. Patient reports feeling better after receiving methadone at 2:10pm today. Patient reports increased anxiety prior to receiving dose. Patient states has been doing well since last hospitalization here at [facility]. Patient receives take home bottles from [facility]. Patient reports no substance use in past year. Patient states occasionally has a cannabis edible. Patient states concerned about positive UDS for fentanyl, as patient has not used opiates/lou in over a year. We discussed possibility of false positive and reviewed the misinformation about fentanyl in cannabis. Patient verbalized understanding.
[2022-08-25 15:47] LABS: Glucose, Whole Blood 404 mg/dL (60-115)
[2022-08-25 20:01] LABS: Glucose, Whole Blood 438 mg/dL (60-115)
[2022-08-25 20:06] LABS: PTT Heparin Drip 30.9 SEC (53-77.9)
[2022-08-25] MEDS: Heparin Sodium,Porcine 5,000 UNIT/ML VIAL 8000 UNIT IVPUSH (20:57)
[2022-08-25] MEDS: Heparin Sodium,Porcine/1/2NS 25,000 UNIT/250 ML IV.SOLN 15.68 UNIT IVCONT (22:36)
[2022-08-25] MEDS: amLODIPine Besylate 10 MG TABLET PO (22:40)
[2022-08-25] MEDS: Insulin Glargine,Hum.rec.anlog 100 UNIT/ML 10 ML VIAL 30 UNIT SUBCUT (22:44)
[2022-08-26] VITALS (10 sets, daily range): BP systolic 94–122; BP diastolic 50–76; PULSE 68–102; RESP 19–95; TEMP 36.6–37.4; O2SAT 20–96
[2022-08-26] MEDS: cefTRIAXone sodium 1 GM in 0.9 % Sodium Chloride 50 ML IV ×2 (03:07→21:49)
[2022-08-26] MEDS: Azithromycin 500 MG in 0.9 % Sodium Chloride 250 ML 125 MG IV ×2 (03:08→22:28)
[2022-08-26] MEDS: Enoxaparin Sodium 100 MG/ML SYRINGE SUBCUT ×2 (03:17→18:02)
--- NOTE | 2022-08-26 04:29 | PC.NURSE ---
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 and duoned with very little improvement.
[2022-08-26 04:43] LABS: ABG Base Excess -7.5 mmol/L; ABG HCO3 17 mmol/L (22-26); ABG pCO2 33 mmHg (32-45); ABG pH 7.31 (7.35-7.45); ABG pO2 39 mmHg (83-108)
[2022-08-26 05:45] LABS: Venous Blood Gas Refer to POC result
[2022-08-26 05:46] LABS: Hematocrit 35.3 % (37.0-47.0); Hemoglobin 11.6 g/dl (12.0-16.0); Mean Corpuscular HGB Conc 32.9 g/dl (31.0-35.0); Mean Corpuscular Hemoglobin 28.9 pg (27.0-33.0); Mean Corpuscular Volume 87.8 fL (80.0-98.0); Mean Platelet Volume 10.8 fL (9.4-12.3); Platelet Count 228 X10*3/uL (160-400); Red Blood Count 4.02 X10*6/uL (4.20-5.50); Red Cell Distribution Width 14.2 % (11.0-16.0); White Blood Count 20.4 X10*3/uL (4.8-10.8)
[2022-08-26 05:46] LABS: VBG Base Excess -6.6 mmol/L; VBG HCO3 17 mmol/L (22-26); VBG pCO2 30 mmHg; VBG pH 7.36 (7.32-7.43); VBG pO2 78 mmHg
[2022-08-26 05:50] LABS: INTERNATIONAL NORM RATIO 1.1 (0.9-1.1); Prothrombin Time 12.6 SEC (10.0-13.1)
[2022-08-26 06:40] LABS: ABG Refer to POC result
[2022-08-26 07:24] LABS: Glucose, Whole Blood 412 mg/dL (60-115)
[2022-08-26] MEDS: lisinopriL 5 MG TABLET PO (08:23)
[2022-08-26] MEDS: Nicotine 21 MG PATCH.TD24 TRANSDERMA (08:24)
[2022-08-26] MEDS: Insulin Lispro 100 UNIT/ML 3 ML VIAL SUBCUT ×4 (08:25→20:49)
[2022-08-26] MEDS: Gabapentin 400 MG CAPSULE PO ×4 (08:28→20:48)
[2022-08-26] MEDS: methADONE HCl 20 MG/2 ML ORAL.CONC 120 MG PO (08:32)
[2022-08-26] MEDS: 0.9 % Sodium Chloride Flush 3 ML SYRINGE IVFLUSH ×2 (08:40→18:06)
[2022-08-26] MEDS: polyethylene glycoL 3350 17 GM POWD.PACK PO (10:01)
[2022-08-26] MEDS: Acetaminophen 325 MG TABLET 650 MG PO (10:01)
[2022-08-26] MEDS: oxyCODONE HCl Immed Release 5 MG TABLET PO (10:02)
--- NOTE | 2022-08-26 10:35 | MHC.CM.PN ---
Per ROUNDS discussion, Patient is not yet medically cleared for dc (6LO2, IV Azithromycin, IV Ceftriaxone); Home is the goal and CM will continue to follow.
--- NOTE | 2022-08-26 11:15 | P.CONPL_ITS ---
History of Present Illness History of Present Illness Consult date: 08/26/22 Requesting physician: Zhane Yates Reason for consult: dyspnea, hypoxemia, pneumonia and pulmonary embolism Chief complaint: Dyspnea Narrative: I HAVE SEEN THIS 52 YEARS OLD FEMALE FOR PULMONARY CONSULTATION THIS MORNING. She presented to the emergency room with a few days increase in her shortness of breath and also discomfort on deep breath especially in the right chest. She denied any fever or chills, or wheezing and also did not have any expectoration. Patient is grossly obese and stays mostly in the house , not walking much. Workup in the emergency room including CTA of the chest has confirmed presence of bilateral pulmonary emboli, and ground glass opacities raising possibility of atypical pneumonitis. Patient is the quite dyspneic and hypoxic, she is requiring high-flow O2. She is also requiring pain meds quite frequently before the pain. Her Past Medical history is reviewed. Last year in October of 2021 she was admitted with pulmonary embolism, and she was sent home on Eliquis 10 mg b.i.d. for 1 week then 5 mg b.i.d.. She completed anticoagulation for 6 months and then stopped about 1 month ago. This patient also has history of chronic depression, opioid and substance abuse . Also has been treated for osteomyelitis of the right foot, and prior to that she had staff various cellulitis of both feet. Because of her morbid obesity and lack of locomotion at home, she remains a high risk patient for DVT and pulmonary embolism. Patient also has history of non ST segment IN in the past, She denies any history of chronic pulmonary disease such as bronchial asthma or COPD. She does smoke 1 pack of cigarettes a day, also smokes marijuana. And as mentioned above she has history of opioid overdose in the past. [facility] reviewed, Review of Systems Review of Systems: Patient was somewhat sleepy may be due to pain meds. She was not able to answer questions, except she expressed that she had discomfort in the right chest. Yes Unobtainable due to mental status [facility] Past Medical History Medical History (Updated 08/26/22 @ 11:31 by Shubham Sanchez MD) Acute respiratory failure with hypoxia Anxiety Diabetes NSTEMI (non-ST elevated myocardial infarction) Obesity (BMI 35.0-39.9 without comorbidity) Opioid use disorder Osteomyelitis Pulmonary embolism Substance abuse Surgical History Surgical History S/P amputation of foot Status post transmetatarsal amputation of right foot (09/24/21) Social History Social History Household Members: Family Housing: Apartment Do you presently have visiting nurse or other home services: No Alcohol intake: never Patient Tobacco Use Status: Current everyday Tobacco user Tobacco use type: Cigarette Cigarette Packs Per Day: 1 e-Cigarette/Vaping Use: Currently Using Second Hand Smoke Exposure: Yes Substance Use Type: Marijuana service: No Current occupational status: unemployed Meds Allergies Allergy/AdvReac Type Severity Reaction Status Date / Time prednisone [PREDNISONE] Allergy Unknown RASH Verified 09/24/21 11:47 Active Medications: Current Medications Acetaminophen (Acetaminophen 325 Mg Tablet) 650 mg PO Q6H PRN PRN Reason: Pain, Mild (Pain Scale 1-3) Last Admin: 08/26/22 10:01 Dose: 650 mg Amlodipine Besylate (Amlodipine Besylate 10 Mg Tablet) 10 mg PO BEDTIME DADA; Protocol Last Admin: 08/25/22 22:40 Dose: 10 mg Albuterol Sulfate 2.5 mg/ (Ipratropium [place] 0.5 mg) 0 mg INHALE RQ4H PRN PRN Reason: Wheezing Dextrose (Dextrose 50 % 25 Gm/50 Ml Syringe) 25 gm IVPUSH Q15M PRN; Protocol PRN Reason: per Hypoglycemia Standing Ord. Docusate Sodium (Docusate Sodium 100 Mg Capsule) 200 mg PO BEDTIME DADA Enoxaparin Sodium (Enoxaparin Sodium 100 Mg/Ml Syringe) 100 mg 1 mg/kg (100 mg) SUBCUT Q12H DADA Last Admin: 08/26/22 03:17 Dose: 100 mg Gabapentin (Gabapentin 400 Mg Capsule) 400 mg PO QID DADA Last Admin: 08/26/22 08:28 Dose: 400 mg Glucose (Glucose Gel 15 Gm Gel..Gram.) 15 gm PO Q15M PRN; Protocol PRN Reason: per Hypoglycemia Standing Ord. Hydroxyzine HCl (Hydroxyzine Hcl 25 Mg Tablet) 25 mg PO Q8H PRN PRN Reason: Anxiety Azithromycin 500 mg/ Sodium (Chloride) 250 mls @ 125 mls/hr IV Q24H DADA Last Infusion: 08/26/22 05:54 Dose: Infused Ceftriaxone Sodium 1 gm/ (Sodium Chloride) 50 mls @ 100 mls/hr IV Q24H [facility] Last Infusion: 08/26/22 03:42 Dose: Infused Insulin Glargine (Insulin Glargine,Hum.Rec.Anlog 100 Unit/Ml 10 Ml Vial) 30 unit SUBCUT BEDTIME [facility] Last Admin: 08/25/22 22:44 Dose: 30 unit Insulin Human Lispro (Insulin Lispro 100 Unit/Ml 3 Ml Vial) 0 unit SUBCUT QIDACHS [facility]; Protocol Last Admin: 08/26/22 08:25 Dose: 14 unit Lisinopril (Lisinopril 5 Mg Tablet) 5 mg PO DAILY [facility]; Protocol Last Admin: 08/26/22 08:23 Dose: 5 mg Melatonin (Melatonin 3 Mg Tablet) 6 mg PO BEDTIME PRN PRN Reason: Insomnia Methadone HCl (Methadone Hcl 20 Mg/2 Ml Oral.Conc) 120 mg PO DAILY [facility] Last Admin: 08/26/22 08:32 Dose: 120 mg Nicotine (Nicotine 21 Mg Patch.Td24) 21 mg TRANSDERMA DAILY [facility] Last Admin: 08/26/22 08:24 Dose: 21 mg Ondansetron HCl (Ondansetron Hcl 4 Mg/2 Ml Vial) 4 mg IVPUSH Q8H PRN PRN Reason: Nausea and Vomiting Pharmacy Consult (Consult Rx Perform Med Rec) 1 each MISCELLANE ONCE PRN PRN Reason: Consult order Polyethylene Glycol (Polyethylene Glycol 3350 17 Gm Powd.Pack) 17 gm PO DAILY [facility] Last Admin: 08/26/22 10:01 Dose: 17 gm Sodium Chloride (0.9 % Sodium Chloride Flush 3 Ml Syringe) 3 ml IVFLUSH QSHIFT [facility] Last Admin: 08/26/22 08:40 Dose: 3 ml Home Medications Medication Instructions Recorded Confirmed Last Taken Type gabapentin 400 mg capsule 400 mg PO QID 09/21/21 08/24/22 08/23/22 History acetaminophen 500 mg tablet 2 caplet PO Q6H PRN mild pain 08/24/22 08/24/22 Unknown History amlodipine 10 mg tablet 10 mg PO BEDTIME 08/24/22 08/24/22 08/23/22 History methadone 10 mg/mL oral concentrate 120 mg PO DAILY 08/24/22 08/24/22 History Physical Exam Vital Signs: Vital Signs: Last Vital Signs Temp 97.9 F 08/26/22 07:50 Pulse 68 08/26/22 07:50 Resp 93 H 08/26/22 10:35 BP 105/68 08/26/22 07:50 Pulse Ox 93 08/26/22 07:50 O2 Del Method 08/26/22 07:50 O2 Flow Rate 100 08/26/22 07:50 FiO2 45 08/26/22 07:50 BMI result Body Mass Index 35.6 Const: Other: Patient is grossly obese, she is using high-flow O2. She is slightly dyspneic during conversation. But does not seem to be in any distress. General: no acute distress, alert and awake Orientation/consciousness: patient oriented x3 HEENT: Head: Yes normal to inspection General nose exam: No nasal polyps present and No nasal discharge present Face and sinus: Yes sinuses nontender Mouth: oropharynx normal Throat: Yes posterior oropharynx normal Eyes: General: appearance normal, both eyes and all related structures Neck: Other: Neck is short and obese Neck: Yes normal visual inspection, Yes no lymphadenopathy, Yes trachea midline and Yes no JVD Thyroid: Thyroid normal Chest: Chest palpation & inspection: normal inspection of the chest, normal palpation of entire chest wall and no tenderness Resp: Other: Percussion note is not perceptible because of her obese chest wall. . There is no localized tenderness of the chest wall Breath sounds are very distant on both sides especially decreased over the basilar areas. No wheezes or crepitations are heard. No pleural rub. Cardio: Palpation: PMI not normal (Not palpable) Rate: regular rate Rhythm: regular rhythm Heart sounds: no gallops and no murmurs GI: Palpation (GI): Soft to palpation, nontender, No hepatosplenomegaly pres ent, no masses and Other GI palpation findings present (Abdomen is grossly obese and protuberant) Auscultation: normal bowel sounds Back/Spine/Pelvis: Other: Not examined Thoracic/Lumbar Spine: thoracic and lumbar spine normal to inspection Skin: General skin exam: no rashes or lesions noted Neuro: General: patient oriented x3 and no focal motor deficits Cranial nerves: Yes CN's II-XII intact bilaterally Extrem: General: Yes normal to inspection, Yes no clubbing, cyanosis or edema and Yes no calf tenderness Psych: Speech and movement: Normal speech and movement present Results Laboratory Findings 08/26/22 05:34 08/25/22 05:47 ABG, PT/INR, D-dimer: PT/INR, D-dimer PT 12.6 SEC (10.0-13.1) 08/26/22 05:35 INR 1.1 (0.9-1.1) 08/26/22 05:35 Abnormal lab findings: Abnormal Labs 08/24/22 08/24/22 08/24/22 20:09 21:00 22:18 WBC 22.5 H RBC Hgb Hct Immature Gran % (Auto) 1.1 H Neut % (Auto) 86.8 H Lymph % (Auto) 7.5 L Abs Immat Gran (auto) 0.25 H Absolute Neuts (auto) 19.5 H Absolute Nucleated RBC 0.030 H aPTT Heparin Protocol ABG pH at Pt Temp ABG pO2 at Pt Temp ABG HCO3 VBG HCO3 Sodium Potassium Carbon Dioxide POC Glucose 565 H* Random Glucose Lactic Acid Lactic Acid F/U @ 2Hr Calcium Alkaline Phosphatase Troponin I High Sens B-Natriuretic Peptide 314 H Ur Specific [place] Urine Protein Urine Glucose (UA) Urine Blood Urine Fentanyl Screen U Marijuana (THC) Screen 08/24/22 08/24/22 08/24/22 22:18 22:18 22:43 WBC RBC Hgb Hct Immature Gran % (Auto) Neut % (Auto) Lymph % (Auto) Abs Immat Gran (auto) Absolute Neuts (auto) Absolute Nucleated RBC aPTT Heparin Protocol ABG pH at Pt Temp ABG pO2 at Pt Temp ABG HCO3 VBG HCO3 Sodium 133 L Potassium 3.1 L D Carbon Dioxide 20 L POC Glucose Random Glucose 548 H* Lactic Acid 2.6 H* Lactic Acid F/U @ 2Hr Calcium Alkaline Phosphatase 137 H Troponin I High Sens 296.3 H* B-Natriuretic Peptide Ur Specific [place] Urine Protein Urine Glucose (UA) Urine Blood Urine Fentanyl Screen U Marijuana (THC) Screen 08/25/22 08/25/22 08/25/22 00:04 00:04 00:22 WBC RBC Hgb Hct Immature Gran % (Auto) Neut % (Auto) Lymph % (Auto) Abs Immat Gran (auto) Absolute Neuts (auto) Absolute Nucleated RBC aPTT Heparin Protocol ABG pH at Pt Temp ABG pO2 at Pt Temp ABG HCO3 VBG HCO3 Sodium Potassium Carbon Dioxide POC Glucose 470 H* Random Glucose Lactic Acid Lactic Acid F/U @ 2Hr Calcium Alkaline Phosphatase Troponin I High Sens B-Natriuretic Peptide Ur Specific [place] >= 1.030 H Urine Protein 100 (2+) H Urine Glucose (UA) >=1000 H Urine Blood Small (1+) H Urine Fentanyl Screen POSITIVE H U Marijuana (THC) Screen POSITIVE H 08/25/22 08/25/22 08/25/22 00:53 05:47 05:52 WBC RBC Hgb Hct Immature Gran % (Auto) Neut % (Auto) Lymph % (Auto) Abs Immat Gran (auto) Absolute Neuts (auto) Absolute Nucleated RBC aPTT Heparin Protocol ABG pH at Pt Temp ABG pO2 at Pt Temp ABG HCO3 VBG HCO3 Sodium 134 L Potassium Carbon Dioxide 19 L POC Glucose 493 H* Random Glucose 451 H* Lactic Acid Lactic Acid F/U @ 2Hr 3.2 H* Calcium 8.3 L Alkaline Phosphatase 139 H Troponin I High Sens B-Natriuretic Peptide Ur Specific [place] Urine Protein Urine Glucose (UA) Urine Blood Urine Fentanyl Screen U Marijuana (THC) Screen 08/25/22 08/25/22 08/25/22 07:29 07:29 07:56 WBC 18.9 H RBC 4.19 L Hgb Hct Immature Gran % (Auto) Neut % (Auto) Lymph % (Auto) Abs Immat Gran (auto) Absolute Neuts (auto) Absolute Nucleated RBC aPTT Heparin Protocol 34.6 L ABG pH at Pt Temp ABG pO2 at Pt Temp ABG HCO3 VBG HCO3 Sodium Potassium Carbon Dioxide POC Glucose 432 H* Random Glucose Lactic Acid Lactic Acid F/U @ 2Hr Calcium Alkaline Phosphatase Troponin I High Sens B-Natriuretic Peptide Ur Specific [place] Urine Protein Urine Glucose (UA) Urine Blood Urine Fentanyl Screen U Marijuana (THC) Screen 08/25/22 08/25/22 08/25/22 10:14 10:52 12:44 WBC RBC Hgb Hct Immature Gran % (Auto) Neut % (Auto) Lymph % (Auto) Abs Immat Gran (auto) Absolute Neuts (auto) Absolute Nucleated RBC aPTT Heparin Protocol 195.1 H* D 40.9 L D ABG pH at Pt Temp ABG pO2 at Pt Temp ABG HCO3 VBG HCO3 Sodium Potassium Carbon Dioxide POC Glucose 374 H* Random Glucose Lactic Acid Lactic Acid F/U @ 2Hr Calcium Alkaline Phosphatase Troponin I High Sens B-Natriuretic Peptide Ur Specific [place] Urine Protein Urine Glucose (UA) Urine Blood Urine Fentanyl Screen U Marijuana (THC) Screen 08/25/22 08/25/22 08/25/22 15:29 19:49 19:55 WBC RBC Hgb Hct Immature Gran % (Auto) Neut % (Auto) Lymph % (Auto) Abs Immat Gran (auto) Absolute Neuts (auto) Absolute Nucleated RBC aPTT Heparin Protocol 30.9 L D ABG pH at Pt Temp ABG pO2 at Pt Temp ABG HCO3 VBG HCO3 Sodium Potassium Carbon Dioxide POC Glucose 404 H* 438 H* Random Glucose Lactic Acid Lactic Acid F/U @ 2Hr Calcium Alkaline Phosphatase Troponin I High Sens B-Natriuretic Peptide Ur Specific [place] Urine Protein Urine Glucose (UA) Urine Blood Urine Fentanyl Screen U Marijuana (THC) Screen 08/26/22 08/26/22 08/26/22 04:30 05:34 05:40 WBC 20.4 H RBC 4.02 L Hgb 11.6 L Hct 35.3 L Immature Gran % (Auto) Neut % (Auto) Lymph % (Auto) Abs Immat Gran (auto) Absolute Neuts (auto) Absolute Nucleated RBC aPTT Heparin Protocol ABG pH at Pt Temp 7.31 L ABG pO2 at Pt Temp 39 L* ABG HCO3 17 L VBG HCO3 17 L Sodium Potassium Carbon Dioxide POC Glucose Random Glucose Lactic Acid Lactic Acid F/U @ 2Hr Calcium Alkaline Phosphatase Troponin I High Sens B-Natriuretic Peptide Ur Specific [place] Urine Protein Urine Glucose (UA) Urine Blood Urine Fentanyl Screen U Marijuana (THC) Screen 08/26/22 07:19 WBC RBC Hgb Hct Immature Gran % (Auto) Neut % (Auto) Lymph % (Auto) Abs Immat Gran (auto) Absolute Neuts (auto) Absolute Nucleated RBC aPTT Heparin Protocol ABG pH at Pt Temp ABG pO2 at Pt Temp ABG HCO3 VBG HCO3 Sodium Potassium Carbon Dioxide POC Glucose 412 H* Random Glucose Lactic Acid Lactic Acid F/U @ 2Hr Calcium Alkaline Phosphatase Troponin I High Sens B-Natriuretic Peptide Ur Specific [place] Urine Protein Urine Glucose (UA) Urine Blood Urine Fentanyl Screen U Marijuana (THC) Screen Microbiology: Microbiology 08/24/22 22:43 Blood - Venous Blood Culture - Preliminary No growth after 24 hours. 08/24/22 22:18 Blood - Venous Blood Culture - Preliminary No growth after 24 hours. Diagnostic Findings Chest x-ray: report reviewed and image reviewed CT scan - chest: report reviewed and image reviewed Assessment and Plan (1) Obesity (BMI 35.0-39.9 without comorbidity): Status: Acute (2) DVT (deep venous thrombosis): Status: Acute (3) Bilateral pulmonary embolism: Status: Acute (4) Pneumonia: Status: Acute (5) Acute respiratory failure with hypoxia: Status: Acute Plan This patient with DVT and bilateral pulmonary embolism, seems to be stable at this time. She has significant V-Q abnormality causing severe hypoxemia. She is not a CO2 retainer. Ground-glass is opacities may represent atypical pneumonia but most likely may be due to pulmonary infarcts. Recc. Continue with active anticoagulation, as soon as she is more stable in the next 2 or 3 days, she can be overlap with oral anticoagulants. Adequate pain control but avoiding any over sedation. Has the pain comes under control she should be advised to do deep breathing exercises with incentive spirometry. Continue antibiotic coverage, empirically, at this time. Continue O2 supplementation with high-flow, with the goal to keep O2 sat above 92%. If possible try to get her out of bed and she could rate sit in a recliner, during the daytime. In the longer on she would need long-term anticoagulation . Smoking cessation while she is here in the hospital. She would need to be evaluated for associated obstructive airway disorder as well as obstructive sleep apnea, but that can be done as outpatient. If in the meantime she develops any wheezing, it is okay to treat her with albuterol updraft Q 4-6 hours p.r.n.. Thank you for asking me to see this patient. Time Spent With Patient Time: Total time managing care of this patient today ____ minutes. Procedures Date of Service Date of Service: 08/26/22
[2022-08-26 12:15] LABS: Glucose, Whole Blood 477 mg/dL (60-115)
--- NOTE | 2022-08-26 15:27 | P.PNIM_ITS ---
Subjective Subjective Date of Service: 08/26/22 Interval History: Events from last night noted patient was noted to be hypoxic placed on high-flow oxygen, ABG showed PO2 of 39 pH 7.31, chest x-ray showed improvement of right lung opacities, this morning patient is feeling better complaining of upper back discomfort requesting for analgesics, feels anxious refusing Zoloft recommended by Psychiatry, denies fever chills, complaining of shortness of breath better since admission no chest pain no nausea, no vomiting, no abdominal pain, tolerating diet, talking in full sentences. Review of Systems Review of Systems: Yes all other systems are reviewed and are negative Physical Exam Vital Signs: Vital Signs: Last Vital Signs Temp 99.3 F 08/26/22 11:12 Pulse 97 08/26/22 11:12 Resp 95 H 08/26/22 14:48 BP 101/68 08/26/22 11:12 Pulse Ox 92 08/26/22 11:12 O2 Del Method 08/26/22 11:12 O2 Flow Rate 100 08/26/22 07:50 FiO2 45 08/26/22 07:50 BMI result Body Mass Index 35.6 Objective Data Active Medications Acetaminophen (Acetaminophen 325 Mg Tablet) 650 mg PO Q6H PRN PRN Reason: Pain, Mild (Pain Scale 1-3) Last Admin: 08/26/22 10:01 Dose: 650 mg Documented By: RAY Amlodipine Besylate (Amlodipine Besylate 10 Mg Tablet) 10 mg PO BEDTIME [facility]; Protocol Last Admin: 08/25/22 22:40 Dose: 10 mg Documented By: CLIFF Albuterol Sulfate 2.5 mg/ (Ipratropium [place] 0.5 mg) 0 mg INHALE RQ4H PRN PRN Reason: Wheezing Dextrose (Dextrose 50 % 25 Gm/50 Ml Syringe) 25 gm IVPUSH Q15M PRN; Protocol PRN Reason: per Hypoglycemia Standing Ord. Docusate Sodium (Docusate Sodium 100 Mg Capsule) 200 mg PO BEDTIME [facility] Enoxaparin Sodium (Enoxaparin Sodium 100 Mg/Ml Syringe) 100 mg 1 mg/kg (100 mg) SUBCUT Q12H [facility] Last Admin: 08/26/22 03:17 Dose: 100 mg Documented By: CLIFF Gabapentin (Gabapentin 400 Mg Capsule) 400 mg PO QID [facility] Last Admin: 08/26/22 12:44 Dose: 400 mg Documented By: RAY Glucose (Glucose Gel 15 Gm Gel..Gram.) 15 gm PO Q15M PRN; Protocol PRN Reason: per Hypoglycemia Standing Ord. Hydroxyzine HCl (Hydroxyzine Hcl 25 Mg Tablet) 25 mg PO Q8H PRN PRN Reason: Anxiety Azithromycin 500 mg/ Sodium (Chloride) 250 mls @ 125 mls/hr IV Q24H [facility] Last Infusion: 08/26/22 05:54 Dose: 0 mls/hr Documented By: CLIFF Ceftriaxone Sodium 1 gm/ (Sodium Chloride) 50 mls @ 100 mls/hr IV Q24H [facility] Last Infusion: 08/26/22 03:42 Dose: 100 mls/hr Documented By: CLIFF Insulin Glargine (Insulin Glargine,Hum.Rec.Anlog 100 Unit/Ml 10 Ml Vial) 36 unit SUBCUT BEDTIME [facility] Insulin Human Lispro (Insulin Lispro 100 Unit/Ml 3 Ml Vial) 0 unit SUBCUT QIDACHS [facility]; Protocol Last Admin: 08/26/22 12:48 Dose: 14 unit Documented By: RAY Lisinopril (Lisinopril 5 Mg Tablet) 5 mg PO DAILY [facility]; Protocol Last Admin: 08/26/22 08:23 Dose: 5 mg Documented By: RAY Melatonin (Melatonin 3 Mg Tablet) 6 mg PO BEDTIME PRN PRN Reason: Insomnia Methadone HCl (Methadone Hcl 20 Mg/2 Ml Oral.Conc) 120 mg PO DAILY [facility] Last Admin: 08/26/22 08:32 Dose: 120 mg Documented By: RAY Nicotine (Nicotine 21 Mg Patch.Td24) 21 mg TRANSDERMA DAILY [facility] Last Admin: 08/26/22 08:24 Dose: 21 mg Documented By: RAY Ondansetron HCl (Ondansetron Hcl 4 Mg/2 Ml Vial) 4 mg IVPUSH Q8H PRN PRN Reason: Nausea and Vomiting Pharmacy Consult (Consult Rx Perform Med Rec) 1 each MISCELLANE ONCE PRN PRN Reason: Consult order Polyethylene Glycol (Polyethylene Glycol 3350 17 Gm Powd.Pack) 17 gm PO DAILY [facility] Last Admin: 08/26/22 10:01 Dose: 17 gm Documented By: RAY Sodium Chloride (0.9 % Sodium Chloride Flush 3 Ml Syringe) [facility] Last Admin: 08/26/22 08:40 Dose: 3 ml Documented By: RAY Labs 08/26/22 05:34 08/25/22 05:47 Labs: Laboratory Results - last 24 hr 08/25/22 08/25/22 08/25/22 15:29 19:49 19:55 MCV MCH MCHC RDW Plt Count MPV Absolute Nucleated RBC Nucleated RBC % (auto) PT INR aPTT Heparin Protocol 30.9 L D O2 Saturation ABG pH at Pt Temp ABG pCO2 at Pt Temp ABG pO2 at Pt Temp ABG HCO3 ABG Base Excess (Actual) VBG pH VBG pCO2 VBG pO2 VBG HCO3 VBG O2 Saturation VBG Base Excess POC Glucose 404 H* 438 H* 08/26/22 08/26/22 08/26/22 04:30 05:34 05:35 MCV 87.8 MCH 28.9 MCHC 32.9 RDW 14.2 Plt Count 228 MPV 10.8 Absolute Nucleated RBC 0.000 Nucleated RBC % (auto) 0.0 PT 12.6 INR 1.1 aPTT Heparin Protocol O2 Saturation 60.0 ABG pH at Pt Temp 7.31 L ABG pCO2 at Pt Temp 33 ABG pO2 at Pt Temp 39 L* ABG HCO3 17 L ABG Base Excess (Actual) -7.5 VBG pH VBG pCO2 VBG pO2 VBG HCO3 VBG O2 Saturation VBG Base Excess POC Glucose 08/26/22 08/26/22 08/26/22 05:40 07:19 12:11 MCV MCH MCHC RDW Plt Count MPV Absolute Nucleated RBC Nucleated RBC % (auto) PT INR aPTT Heparin Protocol O2 Saturation ABG pH at Pt Temp ABG pCO2 at Pt Temp ABG pO2 at Pt Temp ABG HCO3 ABG Base Excess (Actual) VBG pH 7.36 VBG pCO2 30 VBG pO2 78 VBG HCO3 17 L VBG O2 Saturation 93.0 VBG Base Excess -6.6 POC Glucose 412 H* 477 H* Microbiology Microbiology Results: Microbiology 08/24/22 22:43 Blood Culture - Preliminary Blood - Venous No growth after 24 hours. 08/24/22 22:18 Blood Culture - Preliminary Blood - Venous No growth after 24 hours. Assessment and Plan (1) Bilateral pulmonary embolism: Status: Acute Plan 52-year-old female with pertinent history of PE on Eliquis, opioid use disorder on methadone, essential hypertension, COPD, insulin-dependent diabetes mellitus who presents to emergency department evaluation of dyspnea. #. Acute hypoxemic respiratory failure due to Acute bilateral sub massive pulmonary embolism, recurrent episode ?? ? Events from last night noted patient on high-flow oxygen feeling better complaining of upper back pain, less shortness of breath, no fevers no chills Due to poor IV access patient switch to Lovenox therapeutic dose, Duplex study lower extremity ordered ?? ? Denies lower extremity pain, has chronic swelling no worsening Seen by Dr. Sanchez , he agrees with Lovenox and recommend oral anticoagulation in next 2-3 days, recommend out of bed to chair and outpatient workup for sleep apnea. ?? ? Await Hematology input Will add oxycodone for pain control likely due to pulmonary infarction, continue supportive care, wean oxygen as tolerated #.? Sepsis due to Right-sided community-acquired pneumonia:? Continue IV ceftriaxone and azithromycin day 2, Lactic acid 3.2 improved to 1.6 with IV fluids? #.? Type A lactic acidosis:? Resolved with IV fluids? #.? Insulin-dependent diabetes mellitus with uncontrolled hyperglycemia:? Due to medication noncompliance, noted to have elevated blood sugars will increase dose of Lantus to 36 units and adjust insulin sliding scale Hemoglobin A1c 13.5 average glucose 341 #.? Hypokalemia: Repleted, repeat normalized #.? Elevated troponin and BNP: Due to submassive PE, EKG showed right bundle- branch block and old inferior infarction likely due to prior PE, echo last year showed moderately decreased right ventricular systolic function and right ventricular free wall akinesis suggestive of cor pulmonale , will repeat echo and obtain Cardiology eval, repeat troponin continue Lovenox?, check lipid profile, on Norvasc due to low blood pressure will hold Norvasc give IV fluid 1 L follow clinical course. #.? Substance use disorder:? Patient states she last used opioids in June but urine drug screen positive for fentanyl and marijuana.? Patient is concerned that marijuana was laced with fentanyl Consulted Addiction team and CARE team, resume methadone. #? tobacco use disorder on nicotine patch, strongly recommend to abstain from smoking #? history of anxiety seen by psych they recommended Zoloft 50 mg an additional gabapentin 300 mg as needed for anxiety, patient declined Zoloft. # obesity will recommend low-calorie diet DVT prophylaxis:? On Lovenox Full code submassive PE will require continued inpatient hospitalization for IV antibiotics, treatment for submassive PE and high-flow oxygen. Time Spent With Patient Time: Total time managing care of this patient today ____ minutes. Quality Stroke Does the patient have a stroke diagnosis?: No VTE Prior VTE?: No VTE Risk Level:: Medical - moderate - high VTE Device Contraindication: Treatment Not Indicated VTE Drug Contraindication: N/A - Med Ordered
[2022-08-26 15:49] LABS: Glucose, Whole Blood 410 mg/dL (60-115)
--- NOTE | 2022-08-26 16:00 | CA_ITS ---
Transthoracic Echocardiogram Limied Patient (Last, First, Middle): Marilou Siddiqui, Gender: Female Date of : 1970 Age: 52 Procedure Date: 08/26/2022 Procedure Type: Transthoracic Echocardiogram Limied [place] [facility] [place]: 167.64 cm Weight: 87.09 kg BSA: 1.97 m2 Heart Rate: bpm BP: 123 / 56 mmHg Polisher Aluminum: Referring MD: David Gamboa MD Rail Maintenance Worker: Chester Moctezuma MD Symptoms: pulm Embolism follow-up on prior abnormal echo Study Quality: Fair ECG Rhythm: Sinus Conclusions: - 1. Normal LV systolic function with impaired relaxation filling pattern 2. Moderately dilated right ventricle with systolic function not well evaluated on this study 3. Upper limits of normal RV systolic pressure Findings Left Ventricle Normal left ventricular size and systolic function. There is mildly increased left ventricular wall thickness. The visually estimated ejection fraction is between 60-65%. There is a flattened septum in systole consistent with right ventricular pressure overload. Spectral Doppler is indicative of an impaired relaxation filling pattern. Right Ventricle Moderately increased right ventricular cavity size. There is normal right ventricular systolic function. Tricuspid Valve The right ventricular systolic pressure is 39 mmHg. There is no evidence of pulmonary hypertension. Measurements 2D Linear Measurements IVSd: 1.36 0.6-0.9/0.6-1.0 cm LVIDd: 3.17 3.9-5.3/4.2-5.9 cm LVIDd Index: 1.61 2.4-3.2/2.2-3.1 cm/m2 LVIDs: 2.12 2.0-3.6 cm LVPWd: 1.44 0.7-1.1 cm LV Mass: 188.16 67-162/88-224 g LV Mass Index: 95.51 43-95/49-115 g/m2 Mitral Valve E'Medial: 8.27 Diastolic Function E'Medial: 8.27 Tricuspid Valve TR Pk [place]: 3.00 TR Pk Grad: 36.00 RA Press: 3.00 RVSP: 39.00 Updated in Other Vendor System with Status of Final Chester Moctezuma MD electronically signed on 08/27/2022 10:28:43 AM with status of Final
[2022-08-26] MEDS: 0.9 % Sodium Chloride 1,000 ML 100 ML IVCONT (18:18)
[2022-08-26 19:49] LABS: Glucose, Whole Blood 362 mg/dL (60-115)
[2022-08-26] MEDS: Insulin Glargine,Hum.rec.anlog 100 UNIT/ML 10 ML VIAL 36 UNIT SUBCUT (20:49)
[2022-08-27] VITALS (14 sets, daily range): BP systolic 105–125; BP diastolic 53–82; PULSE 65–95; RESP 16–22; TEMP 36.4–37.1; O2SAT 89–99
[2022-08-27] MEDS: Enoxaparin Sodium 100 MG/ML SYRINGE SUBCUT ×2 (03:00→16:48)
[2022-08-27 06:45] LABS: Hematocrit 33.5 % (37.0-47.0); Hemoglobin 10.7 g/dl (12.0-16.0); Mean Corpuscular HGB Conc 31.9 g/dl (31.0-35.0); Mean Corpuscular Hemoglobin 28.5 pg (27.0-33.0); Mean Corpuscular Volume 89.3 fL (80.0-98.0); Mean Platelet Volume 11.1 fL (9.4-12.3); Platelet Count 238 X10*3/uL (160-400); Red Blood Count 3.75 X10*6/uL (4.20-5.50); White Blood Count 14.3 X10*3/uL (4.8-10.8)
[2022-08-27 06:57] LABS: Anion Gap 14 (12-20); Blood Urea Nitrogen 31 mg/dL (9-16); Calcium 8.3 mg/dL (8.4-10.2); Carbon Dioxide 18 mmol/L (22-29); Chloride 102 mmol/L (96-108); Creatinine Clr Calc Pharmacy 84.4; Estimated Glomerular Filt Rate > 60; Glucose Random 348 mg/dL (60-115); Potassium 3.8 mmol/L (3.3-5.1); Sodium 130 mmol/L (135-145)
[2022-08-27 07:30] LABS: Glucose, Whole Blood 305 mg/dL (60-115)
[2022-08-27 07:56] LABS: Cholesterol 196 mg/dL; HDL Cholesterol 17 mg/dL; Triglycerides 548 mg/dL
[2022-08-27] MEDS: Nicotine 21 MG PATCH.TD24 TRANSDERMA (08:23)
[2022-08-27] MEDS: Gabapentin 400 MG CAPSULE PO ×4 (08:24→21:31)
[2022-08-27] MEDS: Insulin Lispro 100 UNIT/ML 3 ML VIAL SUBCUT ×5 (08:24→21:33)
[2022-08-27] MEDS: lisinopriL 5 MG TABLET PO (08:24)
[2022-08-27] MEDS: methADONE HCl 20 MG/2 ML ORAL.CONC 120 MG PO (08:31)
[2022-08-27] MEDS: 0.9 % Sodium Chloride Flush 3 ML SYRINGE IVFLUSH ×2 (08:35→21:36)
--- NOTE | 2022-08-27 10:33 | P.PNIM_ITS ---
Subjective Subjective Date of Service: 08/27/22 Interval History: Feeling better this morning complaining of neck and upper back pain requesting for oxycodone, oxygenation is stable on 45 L high-flow, denies chest pain, received updraft treatment this morning with good affect, showed shortness of breath has significantly improved, tolerating diet, no nausea, no vomiting, no abdominal pain, had a bowel movement yesterday. Review of Systems Review of Systems: Yes all other systems are reviewed and are negative Physical Exam Vital Signs: Vital Signs: Last Vital Signs Temp 97.5 F 08/27/22 07:23 Pulse 87 08/27/22 07:44 Resp 20 08/27/22 07:44 BP 125/78 08/27/22 07:23 Pulse Ox 99 08/27/22 07:23 O2 Del Method 08/27/22 07:23 O2 Flow Rate 45 08/27/22 07:23 FiO2 100 08/26/22 15:33 BMI result Body Mass Index 35.6 Const: Other: General awake alert x3, in no acute distress. Neck no JVD. CVS regular rate rhythm, Respiratory coarse breath sound, no respiratory distress, no wheeze, no rales Gastrointestinal abdomen soft, nontender, bowel sounds audible, no guarding , no rigidity. Extremities right leg slightly > left, mild edema, wrinkled. Neuro nonfocal, moving all 4 extremity speech clear. Skin no rash Objective Data Active Medications Acetaminophen (Acetaminophen 325 Mg Tablet) 650 mg PO Q6H PRN PRN Reason: Pain, Mild (Pain Scale 1-3) Last Admin: 08/26/22 10:01 Dose: 650 mg Documented By: RAY Albuterol Sulfate 2.5 mg/ (Ipratropium [place] 0.5 mg) 0 mg INHALE RQ4H PRN PRN Reason: Wheezing Last Admin: 08/27/22 07:38 Dose: 2.5 each Documented By: ETTA Dextrose (Dextrose 50 % 25 Gm/50 Ml Syringe) 25 gm IVPUSH Q15M PRN; Protocol PRN Reason: per Hypoglycemia Standing Ord. Docusate Sodium (Docusate Sodium 100 Mg Capsule) 200 mg PO BEDTIME [facility] Last Admin: 08/26/22 20:56 Dose: Not Given Documented By: ANGEL Non-Admin Reason: Patient Refused Enoxaparin Sodium (Enoxaparin Sodium 100 Mg/Ml Syringe) 100 mg 1 mg/kg (100 mg) SUBCUT Q12H [facility] Last Admin: 08/27/22 03:00 Dose: 100 mg Documented By: ANGEL Gabapentin (Gabapentin 400 Mg Capsule) 400 mg PO QID [facility] Last Admin: 08/27/22 08:24 Dose: 400 mg Documented By: DELIA Glucose (Glucose Gel 15 Gm Gel..Gram.) 15 gm PO Q15M PRN; Protocol PRN Reason: per Hypoglycemia Standing Ord. Hydroxyzine HCl (Hydroxyzine Hcl 25 Mg Tablet) 25 mg PO Q8H PRN PRN Reason: Anxiety Azithromycin 500 mg/ Sodium (Chloride) 250 mls @ 125 mls/hr IV Q24H [facility] Last Infusion: 08/27/22 00:41 Dose: 0 mls/hr Documented By: ANGEL Ceftriaxone Sodium 1 gm/ (Sodium Chloride) 50 mls @ 100 mls/hr IV Q24H [facility] Last Infusion: 08/26/22 22:23 Dose: 0 mls/hr Documented By: ANGEL Insulin Glargine (Insulin Glargine,Hum.Rec.Anlog 100 Unit/Ml 10 Ml Vial) 36 unit SUBCUT BEDTIME [facility] Last Admin: 08/26/22 20:49 Dose: 36 unit Documented By: ANGEL Insulin Human Lispro (Insulin Lispro 100 Unit/Ml 3 Ml Vial) 0 unit SUBCUT QIDACHS [facility]; Protocol Last Admin: 08/27/22 08:24 Dose: 14 unit Documented By: DELIA Lisinopril (Lisinopril 5 Mg Tablet) 5 mg PO DAILY [facility]; Protocol Last Admin: 08/27/22 08:24 Dose: 5 mg Documented By: DELIA Melatonin (Melatonin 3 Mg Tablet) 6 mg PO BEDTIME PRN PRN Reason: Insomnia Methadone HCl (Methadone Hcl 20 Mg/2 Ml Oral.Conc) 120 mg PO DAILY [facility] Last Admin: 08/27/22 08:31 Dose: 120 mg Documented By: DELIA Nicotine (Nicotine 21 Mg Patch.Td24) 21 mg TRANSDERMA DAILY [facility] Last Admin: 08/27/22 08:23 Dose: 21 mg Documented By: DELIA Ondansetron HCl (Ondansetron Hcl 4 Mg/2 Ml Vial) 4 mg IVPUSH Q8H PRN PRN Reason: Nausea and Vomiting Pharmacy Consult (Consult Rx Perform Med Rec) 1 each MISCELLANE ONCE PRN PRN Reason: Consult order Polyethylene Glycol (Polyethylene Glycol 3350 17 Gm Powd.Pack) 17 gm PO DAILY [facility] Last Admin: 08/27/22 08:40 Dose: Not Given Documented By: DELIA Non-Admin Reason: Patient Refused Sodium Chloride (0.9 % Sodium Chloride Flush 3 Ml Syringe) 3 ml IVFLUSH QSHIFT [facility] Last Admin: 08/27/22 08:35 Dose: 3 ml Documented By: DELIA Labs 08/27/22 06:24 08/27/22 06:24 Labs: Laboratory Results - last 24 hr 08/26/22 08/26/22 08/26/22 12:11 15:38 19:17 MCV MCH MCHC RDW Plt Count MPV Absolute Nucleated RBC Nucleated RBC % (auto) Anion Gap Estim Creat Clear Calc Estimated GFR POC Glucose 477 H* 410 H* 362 H* Random Glucose Calcium Troponin I High Sens Triglycerides Cholesterol LDL Cholesterol, Calc HDL Cholesterol 08/27/22 08/27/22 08/27/22 06:24 06:24 06:24 MCV 89.3 MCH 28.5 MCHC 31.9 RDW 14.0 Plt Count 238 MPV 11.1 Absolute Nucleated RBC 0.000 Nucleated RBC % (auto) 0.0 Anion Gap 14 Estim Creat Clear Calc 84.4 Estimated GFR > 60 POC Glucose Random Glucose 348 H Calcium 8.3 L Troponin I High Sens 52.0 H* D Triglycerides 548 Cholesterol 196 LDL Cholesterol, Calc TNP HDL Cholesterol 17 08/27/22 07:25 MCV MCH MCHC RDW Plt Count MPV Absolute Nucleated RBC Nucleated RBC % (auto) Anion Gap Estim Creat Clear Calc Estimated GFR POC Glucose 305 H Random Glucose Calcium Troponin I High Sens Triglycerides Cholesterol LDL Cholesterol, Calc HDL Cholesterol Microbiology Microbiology Results: Microbiology 08/24/22 22:43 Blood Culture - Preliminary Blood - Venous No growth after 48 hours. 08/24/22 22:18 Blood Culture - Preliminary Blood - Venous No growth after 48 hours. Assessment and Plan (1) Bilateral pulmonary embolism: Status: Acute Plan 52-year-old female with pertinent history of PE on Eliquis, opioid use disorder on methadone, essential hypertension, COPD, insulin-dependent diabetes mellitus who presents to emergency department evaluation of dyspnea. #. Acute hypoxemic respiratory failure due to Acute bilateral sub massive pulmonary embolism, recurrent episode finished 6 month course of Eliquis last year due to right lower extremity DVT and PE. ?? ? feeling better , less shortness of breath, no fevers ,no chills Due to poor IV access patient switch to Lovenox therapeutic dose, Duplex study lower extremity showed persistent Occlusive thrombus extending from the mid femoral vein into the popliteal vein however there is interval resolution of the previously seen thrombus in the proximal femoral vein from 10/26. ? ? ?Denies lower extremity pain, has chronic swelling no worsening . Seen by Dr. Sanchez , he agrees with Lovenox and recommend oral anticoagulation in next 2-3 days, recommend out of bed to chair and outpatient workup for sleep apnea. ?? ? Await Hematology input for recurrent sxs, for duration of anticoagulation and further workup for thrombophilia Risk factors, obesity, immobility, smoking denies trauma,no fhx Recommend to completely abstain from smoking, weight reduction. #.? Sepsis due to Right-sided community-acquired pneumonia:? Continue IV ceftriaxone and azithromycin day 3, Lactic acid 3.2 improved to 1.6 with IV fluids? WBC trending down blood cultures x2 negative #.? Type A lactic acidosis:? Resolved with IV fluids? #.? Insulin-dependent diabetes mellitus with uncontrolled hyperglycemia:? Due to medication noncompliance, blood sugars improved from 400 range to 300 range,on Lantus 36 units and high insulin sliding scale Will increase dose of Lantus further blood sugars do not improve in next 24 hours Hemoglobin A1c 13.5 average glucose 341 #.? Hypokalemia: Repleted, repeat normalized #.? Elevated troponin and BNP: Secondary NSTEMI Due to hypoxia and right-sided heart failure due to submassive PE, EKG showed right bundle-branch block and old inferior infarction likely due to prior PE, echo last year showed moderately decreased right ventricular systolic function and right ventricular free wall akinesis suggestive of cor pulmonale , repeat echo showed EF 60-65% moderately increased right ventricular cavity side and normal right ventricular systolic function no evidence of pulmonary hypertension continue Lovenox?, hold Norvasc due to low blood pressure , LDL not done since triglyceride 548, HDL 17, total cholesterol 196, will check LDL Case discussed with Cardiology they recommend longer duration of anticoagulation, and workup for thrombophilia. #.? Substance use disorder:? Patient states she last used opioids in June but urine drug screen positive for fentanyl and marijuana.? Patient is concerned that marijuana was laced with fentanyl Seen by Addiction Team, likely false positive test for fentanyl, continue methadone. #? tobacco use disorder on nicotine patch, strongly recommend to abstain from smoking. #? history of anxiety seen by psych they recommended Zoloft 50 mg an additional gabapentin 300 mg as needed for anxiety, patient declined Zoloft. # obesity will recommend low-calorie diet DVT prophylaxis:? On Lovenox Full code will require continued inpatient hospitalization for IV antibiotics, treatment for submassive PE and high-flow oxygen. Time Spent With Patient Time: Total time managing care of this patient today ____ minutes. Quality Stroke Does the patient have a stroke diagnosis?: No VTE Prior VTE?: No VTE Risk Level:: Medical - moderate - high VTE Device Contraindication: Treatment Not Indicated VTE Drug Contraindication: N/A - Med Ordered
[2022-08-27 11:44] LABS: Glucose, Whole Blood 402 mg/dL (60-115)
--- NOTE | 2022-08-27 12:16 | PM.CNCAR ---
History of Present Illness History of Present Illness Date of Service: 08/27/22 Requesting physician: David Gamboa Consult reason: troponin elevation Chief complaint: Dyspnea Narrative: I was consulted to see the patient for elevated biomarkers. Patient with prior history of diabetes, renal thromboembolic disease with prior DVT and pulmonary embolism in October with submassive pulmonary embolism at that time with RV dysfunction treated with anticoagulation as per her for about 6 months and then anticoagulation was stopped. There was no obvious workup for hypercoagulable state at that point in time. Patient present hospital with worsening shortness of breath and chest tightness and was noted to have bilateral extensive pulmonary embolism with evidence of right-sided chamber enlargement as well as diffuse ground-glass opacities. On admission her troponins were elevated along with elevated BNP. Patient had high oxygen requirement at that time without any significant hypotension or syncopal episode. Patient was then management with IV heparin. Overnight after admission patient remained hypoxic requiring high flow oxygen level. Will switch to Lovenox therapy due to poor IV access. Cardiology consult was sought due to rise and follow-up troponin consistent with NSTEMI. Echocardiogram done at bedside showed RV enlargement with dysfunction with normal LV systolic function. Reviewing the vital signs and no significant hypertensive episode except for 1 softer blood pressure of systolic 94 noted. Patient says her breathing is improved but still requiring high-flow oxygen which is gradually being tapered. Chest tightness is improved. More than 24 hours since presentation since I am seeing her. Review of Systems Constitutional: Constitutional: Reports weakness Eyes: Eyes: Reports no additional eye complaints Cardiovascular: Cardiovascular: Reports chest pain, Denies leg edema, Denies lightheadedness, Denies Loss of Consciousness, Denies palpitations and Reports dyspnea Respiratory: Respiratory: Reports pain on inspiration, Reports dyspnea and Reports wheezing Gastrointestinal: Gastrointestinal: Reports no additional gastrointestinal complaints Genitourinary: Genitourinary: Reports no additional female genitourinary complaints Musculoskeletal: Musculoskeletal: Reports no additional musculoskeletal complaints Integumentary/Breasts: Skin/Breast: Reports system reviewed and no additional complaints, except as docu Neurologic: Reports system reviewed and no additional complaints, except as documented and Reports weakness Psychiatric: Psychiatric: Reports no additional psychiatric complaints Endocrine: Endocrine: Denies palpitations Allergic/Immunologic: Allergic/Immunologic: Reports wheezing PMFSH Past Medical History Medical History Acute respiratory failure with hypoxia Anxiety Diabetes NSTEMI (non-ST elevated myocardial infarction) Obesity (BMI 35.0-39.9 without comorbidity) Opioid use disorder Osteomyelitis Pulmonary embolism Substance abuse Surgical History Surgical History S/P amputation of foot Status post transmetatarsal amputation of right foot (09/24/21) Social History Social History Household Members: Family Housing: Apartment Do you presently have visiting nurse or other home services: No Alcohol intake: never Patient Tobacco Use Status: Current everyday Tobacco user Tobacco use type: Cigarette Cigarette Packs Per Day: 1 e-Cigarette/Vaping Use: Currently Using Second Hand Smoke Exposure: Yes Substance Use Type: Marijuana service: No Current occupational status: unemployed Meds Allergies Allergy/AdvReac Type Severity Reaction Status Date / Time prednisone [PREDNISONE] Allergy Unknown RASH Verified 09/24/21 11:47 Active Medications: Current Medications Acetaminophen (Acetaminophen 325 Mg Tablet) 650 mg PO Q6H PRN PRN Reason: Pain, Mild (Pain Scale 1-3) Last Admin: 08/26/22 10:01 Dose: 650 mg Albuterol Sulfate 2.5 mg/ (Ipratropium [place] 0.5 mg) 0 mg INHALE RQ4H PRN PRN Reason: Wheezing Last Admin: 08/27/22 11:18 Dose: 2.5 each Dextrose (Dextrose 50 % 25 Gm/50 Ml Syringe) 25 gm IVPUSH Q15M PRN; Protocol PRN Reason: per Hypoglycemia Standing Ord. Docusate Sodium (Docusate Sodium 100 Mg Capsule) 200 mg PO BEDTIME [facility] Last Admin: 08/26/22 20:56 Dose: Not Given Enoxaparin Sodium (Enoxaparin Sodium 100 Mg/Ml Syringe) 100 mg 1 mg/kg (100 mg) SUBCUT Q12H [facility] Last Admin: 08/27/22 03:00 Dose: 100 mg Gabapentin (Gabapentin 400 Mg Capsule) 400 mg PO QID [facility] Last Admin: 08/27/22 12:10 Dose: 400 mg Glucose (Glucose Gel 15 Gm Gel..Gram.) 15 gm PO Q15M PRN; Protocol PRN Reason: per Hypoglycemia Standing Ord. Hydroxyzine HCl (Hydroxyzine Hcl 25 Mg Tablet) 25 mg PO Q8H PRN PRN Reason: Anxiety Azithromycin 500 mg/ Sodium (Chloride) 250 mls @ 125 mls/hr IV Q24H [facility] Last Infusion: 08/27/22 00:41 Dose: Infused Ceftriaxone Sodium 1 gm/ (Sodium Chloride) 50 mls @ 100 mls/hr IV Q24H [facility] Last Infusion: 08/26/22 22:23 Dose: Infused Insulin Glargine (Insulin Glargine,Hum.Rec.Anlog 100 Unit/Ml 10 Ml Vial) 36 unit SUBCUT BEDTIME [facility] Last Admin: 08/26/22 20:49 Dose: 36 unit Insulin Human Lispro (Insulin Lispro 100 Unit/Ml 3 Ml Vial) 0 unit SUBCUT QIDACHS [facility]; Protocol Last Admin: 08/27/22 12:10 Dose: 16 unit Lisinopril (Lisinopril 5 Mg Tablet) 5 mg PO DAILY [facility]; Protocol Last Admin: 08/27/22 08:24 Dose: 5 mg Melatonin (Melatonin 3 Mg Tablet) 6 mg PO BEDTIME PRN PRN Reason: Insomnia Methadone HCl (Methadone Hcl 20 Mg/2 Ml Oral.Conc) 120 mg PO DAILY [facility] Last Admin: 08/27/22 08:31 Dose: 120 mg Nicotine (Nicotine 21 Mg Patch.Td24) 21 mg TRANSDERMA DAILY [facility] Last Admin: 08/27/22 08:23 Dose: 21 mg Ondansetron HCl (Ondansetron Hcl 4 Mg/2 Ml Vial) 4 mg IVPUSH Q8H PRN PRN Reason: Nausea and Vomiting Pharmacy Consult (Consult Rx Perform Med Rec) 1 each MISCELLANE ONCE PRN PRN Reason: Consult order Polyethylene Glycol (Polyethylene Glycol 3350 17 Gm Powd.Pack) 17 gm PO DAILY [facility] Last Admin: 08/27/22 08:40 Dose: Not Given Sodium Chloride (0.9 % Sodium Chloride Flush 3 Ml Syringe) 3 ml IVFLUSH QSHIFT [facility] Last Admin: 08/27/22 08:35 Dose: 3 ml Home Medications Medication Instructions Recorded Confirmed Last Taken Type gabapentin 400 mg capsule 400 mg PO QID 09/21/21 08/24/22 08/23/22 History acetaminophen 500 mg tablet 2 caplet PO Q6H PRN mild pain 08/24/22 08/24/22 Unknown History amlodipine 10 mg tablet 10 mg PO BEDTIME 08/24/22 08/24/22 08/23/22 History methadone 10 mg/mL oral concentrate 120 mg PO DAILY 08/24/22 08/24/22 History Physical Exam Vital Signs: Vital Signs: Last Vital Signs Temp 97.9 F 08/27/22 11:46 Pulse 72 08/27/22 11:46 Resp 18 08/27/22 11:46 BP 122/82 08/27/22 11:46 Pulse Ox 99 08/27/22 11:46 O2 Del Method 08/27/22 11:46 O2 Flow Rate 45 08/27/22 11:46 FiO2 100 08/26/22 15:33 BMI result Body Mass Index 35.6 Const: General: cooperative, comfortable, in distress mild and respiratory and anxious Nutritional Appearance: obese Orientation/consciousness: patient oriented x3 HEENT: Head: Yes normocephalic and Yes atraumatic Neck: Neck: Yes trachea midline, Yes supple and Yes no JVD Resp: Effort & Inspection: normal respiratory effort Auscultation: no rales, wheezes and diminished lung sounds Cardio: Jugular venous distension: no JVD Palpation: abnormal PMI displaced PMI Rate: regular rate Rhythm: regular rhythm Heart sounds: S1 normal heart sound present and S2 normal heart sound present GI: Auscultation: normal bowel sounds Skin: General skin exam: no rashes or lesions noted and ecchymosis Neuro: General: patient oriented x3 and no focal motor deficits Extrem: General: No clubbing and No cyanosis Objective Labs and Meds 08/27/22 06:24 08/27/22 06:24 Lab results: Laboratory Results - last 24 hr 08/26/22 08/26/22 08/27/22 15:38 19:17 06:24 WBC RBC Hgb Hct MCV MCH MCHC RDW Plt Count MPV Absolute Nucleated RBC Nucleated RBC % (auto) Sodium Potassium Chloride Carbon Dioxide Anion Gap BUN Creatinine Estim Creat Clear Calc Estimated GFR POC Glucose 410 H* 362 H* Random Glucose Calcium Troponin I High Sens 52.0 H* D Triglycerides Cholesterol LDL Cholesterol, Calc HDL Cholesterol 08/27/22 08/27/22 08/27/22 06:24 06:24 07:25 WBC 14.3 H RBC 3.75 L Hgb 10.7 L Hct 33.5 L MCV 89.3 MCH 28.5 MCHC 31.9 RDW 14.0 Plt Count 238 MPV 11.1 Absolute Nucleated RBC 0.000 Nucleated RBC % (auto) 0.0 Sodium 130 L Potassium 3.8 Chloride 102 Carbon Dioxide 18 L Anion Gap 14 BUN 31 H Creatinine 0.93 Estim Creat Clear Calc 84.4 Estimated GFR > 60 POC Glucose 305 H Random Glucose 348 H Calcium 8.3 L Troponin I High Sens Triglycerides 548 Cholesterol 196 LDL Cholesterol, Calc TNP HDL Cholesterol 17 08/27/22 11:34 WBC RBC Hgb Hct MCV MCH MCHC RDW Plt Count MPV Absolute Nucleated RBC Nucleated RBC % (auto) Sodium Potassium Chloride Carbon Dioxide Anion Gap BUN Creatinine Estim Creat Clear Calc Estimated GFR POC Glucose 402 H* Random Glucose Calcium Troponin I High Sens Triglycerides Cholesterol LDL Cholesterol, Calc HDL Cholesterol Imaging Radiologist's impression: Impressions Venous Duplex 08/26/22 17:47 IMPRESSION: Occlusive thrombus is again seen extending from the mid femoral vein into the popliteal vein however there has been interval resolution of the previously seen thrombus in the proximal femoral vein. No DVT demonstrated in the left lower extremity, however the veins of the calf were not identified imaging evaluation. Assessment and Plan (1) Bilateral pulmonary embolism: Status: Acute Submassive pulmonary embolism, recurrent in this middle-aged woman without any obvious provocation with intermediate to high risk for clinical outcomes given RV dysfunction as well as elevated cardiac biomarkers. It is more than 24 hours at this point time and her respiratory status has improved without any obvious hypertension at this point in time. However there is any clinical deterioration and high requirement of oxygen and or further hypertension would consider systemic and/or catheter based on bowl lytic therapy to reduce RV strain. Continue parenteral anticoagulation at this point time. Continue supportive care and oxygen replacement therapy. Hematology consult for thrombophilic workup although I feel that patient has had recurrent life-threatening pulmonary embolism without any obvious significant provoking factors and should consider lifetime oral anticoagulation therapy. Continue management of bronchospastic airway disease with inhaled therapy. Overall prognosis remains guarded. Will follow with you Time Spent With Patient Time: Total time managing care of this patient today ____ minutes. Procedures Date of Service Date of Service: 08/27/22
[2022-08-27 16:34] LABS: Glucose, Whole Blood 422 mg/dL (60-115)
[2022-08-27 21:24] LABS: Glucose, Whole Blood 289 mg/dL (60-115)
[2022-08-27] MEDS: Insulin Glargine,Hum.rec.anlog 100 UNIT/ML 10 ML VIAL 40 UNIT SUBCUT (21:32)
[2022-08-27] MEDS: cefTRIAXone sodium 1 GM in 0.9 % Sodium Chloride 50 ML IV (21:33)
[2022-08-27] MEDS: Acetaminophen 325 MG TABLET 650 MG PO (21:48)
[2022-08-27] MEDS: Azithromycin 500 MG in 0.9 % Sodium Chloride 250 ML 125 MG IV (22:15)
[2022-08-28] VITALS (14 sets, daily range): BP systolic 101–124; BP diastolic 53–84; PULSE 76–90; RESP 16–21; TEMP 36.4–37.2; O2SAT 92–100
[2022-08-28] MEDS: Enoxaparin Sodium 100 MG/ML SYRINGE SUBCUT ×2 (02:37→16:38)
[2022-08-28] MEDS: Acetaminophen 325 MG TABLET 650 MG PO ×2 (05:30→21:25)
[2022-08-28 07:34] LABS: Glucose, Whole Blood 307 mg/dL (60-115)
[2022-08-28] MEDS: Insulin Lispro 100 UNIT/ML 3 ML VIAL SUBCUT ×4 (08:10→21:26)
[2022-08-28] MEDS: Nicotine 21 MG PATCH.TD24 TRANSDERMA (08:11)
[2022-08-28] MEDS: lisinopriL 5 MG TABLET PO (08:11)
[2022-08-28] MEDS: methADONE HCl 20 MG/2 ML ORAL.CONC 120 MG PO (08:11)
[2022-08-28] MEDS: Gabapentin 400 MG CAPSULE PO ×4 (08:11→21:26)
[2022-08-28] MEDS: 0.9 % Sodium Chloride Flush 3 ML SYRINGE IVFLUSH ×2 (08:17→21:31)
--- NOTE | 2022-08-28 10:25 | P.PNIM_ITS ---
Subjective Subjective Date of Service: 08/28/22 Interval History: Continue to require high-flow oxygen but notes improvement Review of Systems Denies chest pain Admits to shortness of breath with exertion Denies nausea vomiting diarrhea Denies fever chills Physical Exam Vital Signs: Vital Signs: Last Vital Signs Temp 97.6 F 08/28/22 07:31 Pulse 80 08/28/22 07:31 Resp 21 H 08/28/22 08:24 BP 115/68 08/28/22 07:31 Pulse Ox 99 08/28/22 07:31 O2 Del Method 08/28/22 07:31 O2 Flow Rate 45 08/28/22 07:31 FiO2 90 08/28/22 07:31 BMI result Body Mass Index 35.6 Const: Other: Awake alert no acute distress Resp: Other: Clear to auscultation bilaterally no rales rhonchi wheezes Cardio: Other: No S4; positive S1-S2; no S3 murmurs rubs or gallops GI: Other: Soft nontender nondistended normoactive bowel sounds Extrem: Other: No edema Objective Data Active Medications Acetaminophen (Acetaminophen 325 Mg Tablet) 650 mg PO Q6H PRN PRN Reason: Pain, Mild (Pain Scale 1-3) Last Admin: 08/28/22 05:30 Dose: 650 mg Documented By: PETER Albuterol Sulfate 2.5 mg/ (Ipratropium [place] 0.5 mg) 0 mg INHALE RQ4H PRN PRN Reason: Wheezing Last Admin: 08/28/22 00:31 Dose: 1 each Documented By: CORTEZ Dextrose (Dextrose 50 % 25 Gm/50 Ml Syringe) 25 gm IVPUSH Q15M PRN; Protocol PRN Reason: per Hypoglycemia Standing Ord. Docusate Sodium (Docusate Sodium 100 Mg Capsule) 200 mg PO BEDTIME [facility] Last Admin: 08/27/22 21:33 Dose: Not Given Documented By: PETER Non-Admin Reason: Patient Refused Enoxaparin Sodium (Enoxaparin Sodium 100 Mg/Ml Syringe) 100 mg 1 mg/kg (100 mg) SUBCUT Q12H [facility] Last Admin: 08/28/22 02:37 Dose: 100 mg Documented By: PETER Gabapentin (Gabapentin 400 Mg Capsule) 400 mg PO QID [facility] Last Admin: 08/28/22 08:11 Dose: 400 mg Documented By: CHLOE Glucose (Glucose Gel 15 Gm Gel..Gram.) 15 gm PO Q15M PRN; Protocol PRN Reason: per Hypoglycemia Standing Ord. Hydroxyzine HCl (Hydroxyzine Hcl 25 Mg Tablet) 25 mg PO Q8H PRN PRN Reason: Anxiety Azithromycin 500 mg/ Sodium (Chloride) 250 mls @ 125 mls/hr IV Q24H [facility] Last Infusion: 08/28/22 00:57 Dose: 0 mls/hr Documented By: PETER Ceftriaxone Sodium 1 gm/ (Sodium Chloride) 50 mls @ 100 mls/hr IV Q24H [facility] Last Infusion: 08/27/22 22:22 Dose: 0 mls/hr Documented By: PETER Insulin Glargine (Insulin Glargine,Hum.Rec.Anlog 100 Unit/Ml 10 Ml Vial) 40 unit SUBCUT BEDTIME [facility] Last Admin: 08/27/22 21:32 Dose: 40 unit Documented By: PETER Insulin Human Lispro (Insulin Lispro 100 Unit/Ml 3 Ml Vial) 0 unit SUBCUT QIDACHS [facility]; Protocol Last Admin: 08/28/22 08:10 Dose: 16 unit Documented By: CHLOE Lisinopril (Lisinopril 5 Mg Tablet) 5 mg PO DAILY [facility]; Protocol Last Admin: 08/28/22 08:11 Dose: 5 mg Documented By: CHLOE Melatonin (Melatonin 3 Mg Tablet) 6 mg PO BEDTIME PRN PRN Reason: Insomnia Methadone HCl (Methadone Hcl 20 Mg/2 Ml Oral.Conc) 120 mg PO DAILY [facility] Last Admin: 08/28/22 08:11 Dose: 120 mg Documented By: CHLOE Nicotine (Nicotine 21 Mg Patch.Td24) 21 mg TRANSDERMA DAILY [facility] Last Admin: 08/28/22 08:11 Dose: 21 mg Documented By: CHLOE Ondansetron HCl (Ondansetron Hcl 4 Mg/2 Ml Vial) 4 mg IVPUSH Q8H PRN PRN Reason: Nausea and Vomiting Pharmacy Consult (Consult Rx Perform Med Rec) 1 each MISCELLANE ONCE PRN PRN Reason: Consult order Polyethylene Glycol (Polyethylene Glycol 3350 17 Gm Powd.Pack) 17 gm PO DAILY [facility] Last Admin: 08/28/22 09:15 Dose: Not Given Documented By: CHLOE Non-Admin Reason: Patient Refused Sodium Chloride (0.9 % Sodium Chloride Flush 3 Ml Syringe) [facility] Last Admin: 08/28/22 08:17 Dose: 3 ml Documented By: CHLOE Labs 08/27/22 06:24 08/27/22 06:24 Labs: Laboratory Results - last 24 hr 08/27/22 08/27/22 08/27/22 11:34 16:30 20:56 POC Glucose 402 H* 422 H* 289 H 08/28/22 07:29 POC Glucose 307 H Assessment and Plan (1) Bilateral pulmonary embolism: Status: Acute (2) Pneumonia: Status: Acute (3) NSTEMI (non-ST elevated myocardial infarction): Status: Acute Plan 52-year-old female with pertinent history of PE on Eliquis, opioid use disorder on methadone, essential hypertension, COPD, insulin-dependent diabetes mellitus who presents to emergency department evaluation of dyspnea. 1.Acute hypoxemic respiratory failure due to Acute bilateral sub massive pulm onary embolism -Lovenox 1mg/kg -hematology consult in a.m. -transition to oral anticoagulation as per Hematology 2.Right-sided community-acquired pneumonia -sepsis resolved -continue ceftriaxone/azithromycin(4) 3.Insulin-dependent diabetes mellitus -Lantus 36 units HS; adjust as indicated -[place] 20 mg q.a.m. -if continues to be elevated will add metformin in a.m. 4.NSTEMI -Lovenox 1 milligram/kilogram -echo without evidence of right ventricular strain -cardiology following 5.Substance use disorder -continue methadone as ordered Lovenox Full code will require continued inpatient hospitalization for IV antibiotics, treatment for submassive PE and high-flow oxygen. Time Spent With Patient Time: Total time managing care of this patient today ____ minutes. Quality Stroke Does the patient have a stroke diagnosis?: No VTE Prior VTE?: No VTE Risk Level:: Medical - moderate - high VTE Device Contraindication: Treatment Not Indicated VTE Drug Contraindication: N/A - Med Ordered
[2022-08-28 11:10] LABS: Glucose, Whole Blood 329 mg/dL (60-115)
--- NOTE | 2022-08-28 11:24 | PM.PNCARD ---
Subjective Subjective Date of Service: 08/28/22 Principal diagnosis: Submassive pulmonary embolism Interval history: Patient was admitted submassive pulmonary embolism with intermediate to high risk with RV dysfunction and elevated cardiac biomarkers. She says last night was not good because she had issues with pain. Her oxygen supplementation has been reduced as per her. She denies any chest pain at current time. Blood pressure stable. Review of Systems Constitutional: Reports body ache(s) and Reports other Cardiovascular: Denies chest pain, Denies lightheadedness, Denies Loss of Consciousness, Denies palpitations, Reports dyspnea on exertion and Denies orthopnea Respiratory: Reports no additional respiratory complaints and Reports dyspnea on exertion Skin/Breast: Reports system reviewed and no additional complaints, except as docu Endocrine: Denies palpitations Physical Exam Vital Signs: Last Vital Signs Temp 97.9 F 08/28/22 11:14 Pulse 80 08/28/22 11:14 Resp 18 08/28/22 11:14 BP 124/84 08/28/22 11:14 Pulse Ox 99 08/28/22 11:14 O2 Del Method 08/28/22 11:14 O2 Flow Rate 45 08/28/22 11:14 FiO2 90 08/28/22 07:31 BMI result Body Mass Index 35.6 Const General: cooperative, comfortable, in distress mild and respiratory and anxious Nutritional Appearance: obese Orientation/consciousness: patient oriented x3 HEENT Head: Yes normocephalic and Yes atraumatic Neck Neck: Yes trachea midline, Yes supple and Yes no JVD Resp Effort & Inspection: normal respiratory effort Auscultation: no rales, wheezes (Wheezing has improved) and diminished lung sounds Cardio Jugular venous distension: no JVD Palpation: abnormal PMI displaced PMI Rate: regular rate Rhythm: regular rhythm Heart sounds: S1 normal heart sound present and S2 normal heart sound present GI Auscultation: normal bowel sounds Skin General skin exam: no rashes or lesions noted and ecchymosis Neuro General: patient oriented x3 and no focal motor deficits Extrem General: No clubbing and No cyanosis Objective Labs and Meds 08/27/22 06:24 08/27/22 06:24 Lab results: Laboratory Results - last 24 hr 08/27/22 08/27/22 08/27/22 11:34 16:30 20:56 POC Glucose 402 H* 422 H* 289 H 08/28/22 08/28/22 07:29 11:06 POC Glucose 307 H 329 H Progress Note: A&P Assessment and plan (1) Bilateral pulmonary embolism: Status: Acute Assessment and Plan: Submassive pulmonary embolism in this middle-aged woman with intermediate to high risk in the short term due to RV dysfunction as well as elevated cardiac biomarkers. Continue anticoagulation. Her clinical course has been gradually improving. Her blood pressure is stable. As long as she continues to improve continue anticoagulation strategy. If her oxygenation and/or blood pressure deteriorate may require thrombolytics therapy either systemic or catheter based. Continue supportive care. Continue to taper down oxygen therapy as needed. Continue COPD management. Will sign of the case at this point time. Thank you for allowing me to partake in her care Time Spent With Patient Time: Total time managing care of this patient today ____ minutes. Progress Note: Quality Stroke Does the patient have a stroke diagnosis?: No Procedures Date of Service Date of Service: 08/28/22
--- NOTE | 2022-08-28 15:51 | MHC.RECOVRN ---
Met with pt to follow up and provide support. Pt sitting in bed, awake, alert, easily engages in conversation, bright affect. Pt reports this past year has gone really well and she has made improvements in many relationships including those with her best friend and children. She reports having not used substances and getting off the Xanax after 30 years. Pt proud of herself for her outlook on life and positive changes she has made. Pt states I'm just taking it as it comes. Denies questions or concerns. Provided with t/w contact information if needed.
[2022-08-28 16:07] LABS: Glucose, Whole Blood 262 mg/dL (60-115)
[2022-08-28 20:00] LABS: Glucose, Whole Blood 220 mg/dL (60-115)
[2022-08-28] MEDS: Insulin Glargine,Hum.rec.anlog 100 UNIT/ML 10 ML VIAL 40 UNIT SUBCUT (21:26)
[2022-08-28] MEDS: cefTRIAXone sodium 1 GM in 0.9 % Sodium Chloride 50 ML IV (21:27)
[2022-08-28] MEDS: Melatonin 3 MG TABLET 6 MG PO (21:28)
[2022-08-28] MEDS: Azithromycin 500 MG in 0.9 % Sodium Chloride 250 ML 125 MG IV (22:04)
[2022-08-29] VITALS (11 sets, daily range): BP systolic 117–140; BP diastolic 58–80; PULSE 66–102; RESP 18–96; TEMP 36.1–36.7; O2SAT 95–99
[2022-08-29] MEDS: LORazepam 1 MG TABLET PO ×2 (00:17→20:51)
[2022-08-29] MEDS: Enoxaparin Sodium 100 MG/ML SYRINGE SUBCUT ×2 (03:12→17:13)
[2022-08-29 06:09] LABS: Hematocrit 32.7 % (37.0-47.0); Hemoglobin 10.4 g/dl (12.0-16.0); Mean Corpuscular HGB Conc 31.8 g/dl (31.0-35.0); Mean Corpuscular Hemoglobin 28.9 pg (27.0-33.0); Mean Corpuscular Volume 90.8 fL (80.0-98.0); Mean Platelet Volume 10.7 fL (9.4-12.3); Platelet Count 285 X10*3/uL (160-400); Red Cell Distribution Width 13.9 % (11.0-16.0); White Blood Count 9.9 X10*3/uL (4.8-10.8)
[2022-08-29 06:37] LABS: Anion Gap 15 (12-20); Blood Urea Nitrogen 19 mg/dL (9-16); Calcium 8.2 mg/dL (8.4-10.2); Carbon Dioxide 21 mmol/L (22-29); Chloride 104 mmol/L (96-108); Creatinine Clr Calc Pharmacy 128.8; Estimated Glomerular Filt Rate > 60; Glucose Random 212 mg/dL (60-115); Potassium 4.1 mmol/L (3.3-5.1); Sodium 136 mmol/L (135-145)
[2022-08-29 07:08] LABS: Glucose, Whole Blood 184 mg/dL (60-115)
[2022-08-29] MEDS: methADONE HCl 20 MG/2 ML ORAL.CONC 120 MG PO (08:29)
[2022-08-29] MEDS: Gabapentin 400 MG CAPSULE PO ×4 (08:30→20:51)
[2022-08-29] MEDS: Nicotine 21 MG PATCH.TD24 TRANSDERMA (08:30)
[2022-08-29] MEDS: Insulin Lispro 100 UNIT/ML 3 ML VIAL SUBCUT ×4 (08:31→20:51)
[2022-08-29] MEDS: Insulin Glargine,Hum.rec.anlog 100 UNIT/ML 10 ML VIAL 20 UNIT SUBCUT (08:34)
[2022-08-29] MEDS: lisinopriL 5 MG TABLET PO (08:35)
[2022-08-29] MEDS: 0.9 % Sodium Chloride Flush 3 ML SYRINGE IVFLUSH ×3 (08:43→20:53)
--- NOTE | 2022-08-29 10:26 | MHC.CM.PN ---
Per ROUNDS discussion, Patient is not yet medically cleared for dc (High Flow O2, IV Azithromycin, IV Ceftriaxone); Home is the goal and CM will continue to follow.
--- NOTE | 2022-08-29 10:29 | P.CNHO_ITS ---
Subjective - Subjective Chief complaint: Shortness of breath Patient: known to practice within the last 3 years Consult date: 08/29/22 Primary Care Provider: Nikhil Potts MD HPI - Consult Narrative Reason for consult: Recurrent extensive bilateral pulmonary emboli Narrative: Marilou Siddiqui is a 52 year old woman who is admitted with recurrent bilateral PE. She was diagnosed with this in October 2021, she was on Eliquis for 6 months and was taken off the medication by her PCP. She now presents with recurrent shortness of breath and CT angiogram showed bilateral pulmonary emboli involving left and right main pulmonary arteries as well as multiple segmental branches. She is now on Lovenox. Bilateral lower extremity Doppler showed occlusive thrombus in the right lower extremity extending from mid femoral vein into popliteal vein. Echocardiogram showed normal LV systolic function, moderately dilated right ventricle with upper limits of normal RV systolic pressure. She has a history of IV drug abuse. There is no family history of thromboembolism. She is a chronic smoker. Review of Systems - Constitutional Reports as per HPI, Reports fatigue, Reports malaise, Reports poor appetite - Cardiovascular Reports no additional cardiovascular complaints, Reports fast heart rate, Reports shortness of breath - Respiratory Denies cough, Denies hemoptysis, Reports dyspnea - Gastrointestinal Reports no additional gastrointestinal complaints - Neurologic Reports no additional neurologic complaints, Reports weakness PMFSH Medical History: Medical History (Last Reviewed 08/27/22 @ 12:19 by Chester Moctezuma MD) Acute respiratory failure with hypoxia Anxiety Diabetes NSTEMI (non-ST elevated myocardial infarction) Obesity (BMI 35.0-39.9 without comorbidity) Opioid use disorder Osteomyelitis Pulmonary embolism Substance abuse Surgical History: Surgical History (Last Reviewed 08/27/22 @ 12:19 by Chester Moctezuma MD) S/P amputation of foot Status post transmetatarsal amputation of right foot Onset Date: 09/24/21 Social History: Social History (Last Reviewed 08/27/22 @ 12:19 by Chester Moctezuma MD) Living Situation History: Household Members: Family Housing: Apartment Do you presently have visiting nurse or other home services: No Tobacco History: Patient Tobacco Use Status: Current everyday Tobacco Tobacco use type: Cigarette Cigarette Packs Per Day: 1 e-Cigarette/Vaping Use: Currently Using Second Hand Smoke Exposure: Yes Substance Use History: Substance Use Type: Marijuana Occupation Assessmet: service: No Current occupational status: unemployed Home Medications and Allergies Current Medications: Current Medications Acetaminophen (Acetaminophen 325 Mg Tablet) 650 mg PO Q6H PRN PRN Reason: Pain, Mild (Pain Scale 1-3) Last Admin: 08/28/22 21:25 Dose: 650 mg Albuterol Sulfate 2.5 mg/ (Ipratropium [place] 0.5 mg) 0 mg INHALE RQ4H PRN PRN Reason: Wheezing Last Admin: 08/28/22 00:31 Dose: 1 each Dextrose (Dextrose 50 % 25 Gm/50 Ml Syringe) 25 gm IVPUSH Q15M PRN; Protocol PRN Reason: per Hypoglycemia Standing Ord. Docusate Sodium (Docusate Sodium 100 Mg Capsule) 200 mg PO BEDTIME [facility] Last Admin: 08/28/22 21:30 Dose: Not Given Enoxaparin Sodium (Enoxaparin Sodium 100 Mg/Ml Syringe) 100 mg 1 mg/kg (100 mg) SUBCUT Q12H [facility] Last Admin: 08/29/22 03:12 Dose: 100 mg Gabapentin (Gabapentin 400 Mg Capsule) 400 mg PO QID [facility] Last Admin: 08/29/22 08:30 Dose: 400 mg Glucose (Glucose Gel 15 Gm Gel..Gram.) 15 gm PO Q15M PRN; Protocol PRN Reason: per Hypoglycemia Standing Ord. Hydroxyzine HCl (Hydroxyzine Hcl 25 Mg Tablet) 25 mg PO Q8H PRN PRN Reason: Anxiety Azithromycin 500 mg/ Sodium (Chloride) 250 mls @ 125 mls/hr IV Q24H [facility] Last Infusion: 08/29/22 00:19 Dose: Infused Ceftriaxone Sodium 1 gm/ (Sodium Chloride) 50 mls @ 100 mls/hr IV Q24H [facility] Last Infusion: 08/28/22 22:04 Dose: Infused Insulin Glargine (Insulin Glargine,Hum.Rec.Anlog 100 Unit/Ml 10 Ml Vial) 40 unit SUBCUT BEDTIME [facility] Last Admin: 08/28/22 21:26 Dose: 40 unit Insulin Glargine (Insulin Glargine,Hum.Rec.Anlog 100 Unit/Ml 10 Ml Vial) 20 unit SUBCUT DAILY [facility] Last Admin: 08/29/22 08:34 Dose: 20 unit Insulin Human Lispro (Insulin Lispro 100 Unit/Ml 3 Ml Vial) 0 unit SUBCUT QIDACHS [facility]; Protocol Last Admin: 08/29/22 08:31 Dose: 6 unit Lisinopril (Lisinopril 5 Mg Tablet) 5 mg PO DAILY [facility]; Protocol Last Admin: 08/29/22 08:35 Dose: 5 mg Melatonin (Melatonin 3 Mg Tablet) 6 mg PO BEDTIME PRN PRN Reason: Insomnia Last Admin: 08/28/22 21:28 Dose: 6 mg Methadone HCl (Methadone Hcl 20 Mg/2 Ml Oral.Conc) 120 mg PO DAILY [facility] Last Admin: 08/29/22 08:29 Dose: 120 mg Nicotine (Nicotine 21 Mg Patch.Td24) 21 mg TRANSDERMA DAILY [facility] Last Admin: 08/29/22 08:30 Dose: 21 mg Ondansetron HCl (Ondansetron Hcl 4 Mg/2 Ml Vial) 4 mg IVPUSH Q8H PRN PRN Reason: Nausea and Vomiting Pharmacy Consult (Consult Rx Perform Med Rec) 1 each MISCELLANE ONCE PRN PRN Reason: Consult order Polyethylene Glycol (Polyethylene Glycol 3350 17 Gm Powd.Pack) 17 gm PO DAILY [facility] Last Admin: 08/29/22 08:48 Dose: Not Given Sodium Chloride (0.9 % Sodium Chloride Flush 3 Ml Syringe) 3 ml IVFLUSH QSHIFT [facility] Last Admin: 08/29/22 08:43 Dose: 3 ml Home Medications Medication Instructions Recorded Confirmed Type gabapentin 400 mg capsule 400 mg PO QID 09/21/21 08/24/22 History acetaminophen 500 mg tablet 2 caplet PO Q6H PRN mild pain 08/24/22 08/24/22 History amlodipine 10 mg tablet 10 mg PO BEDTIME 08/24/22 08/24/22 History methadone 10 mg/mL oral concentrate 120 mg PO DAILY 08/24/22 History Allergies Allergy/AdvReac Type Severity Reaction Status Date / Time prednisone [PREDNISONE] Allergy Unknown RASH Verified 09/24/21 11:47 Physical Exam Vital signs: Vital Signs Temp 98.1 F 08/29/22 07:23 Pulse 71 08/29/22 07:23 Resp 20 08/29/22 07:32 BP 118/71 08/29/22 07:23 Pulse Ox 97 08/29/22 07:23 O2 Del Method 08/29/22 07:23 O2 Flow Rate 40 08/29/22 07:23 FiO2 90 08/29/22 07:23 Intake & Output 08/28/22 08/29/22 08/29/22 18:59 06:59 18:59 Intake Total 300 / 300 Output Total 500 / 1400 900 / 1400 Balance -500 / -1100 -600 / -1100 Urine Output (Average ml/kg/hr) 0.75 Intake: Intake, IV Amount 300 / 300 Azithromycin 500 mg In 0.9 % 250 / 250 Sodium Chloride 250 ml @ 125 mls/hr IV Q24H [facility] Rx#: [id number] cefTRIAXone sodium 1 gm In 0.9 50 / 50 % Sodium Chloride 50 ml @ 100 mls/hr IV Q24H [facility] Rx#: [id number] Output: Output, Urine Amount 900 / 900 Output, Post Void Residual 500 / 500 Amount Other: Breakfast % Eaten 50% Lunch % Eaten 75% Urine PURWICK Urine Color Straw Last Bowel Movement 08/27/22 Weight 100.1 kg - Constitutional Present: mild distress - Routine HEENT Exam Eye: Present: EOMI - Routine Neck Exam Absent: lymphadenopathy - Routine Respiratory Exam Present: decreased breath sounds. Absent: stridor - Routine Cardiovascular Exam Cardiovascular: Present: S1, S2 - Routine Extremities Exam Comments: Chronic stasis changes and hyperpigmentation of both bilateral lower extremities. Hem/Onc Consult Result - Labs CBC & Chem 7: 08/29/22 05:58 08/29/22 05:58 Labs: Short CBC 08/29/22 Range/Units 05:58 WBC 9.9 (4.8-10.8) X10*3/uL Hgb 10.4 L (12.0-16.0) g/dl Hct 32.7 L (37.0-47.0) % Plt Count 285 (160-400) X10*3/uL BMP 08/29/22 05:58 Sodium 136 Potassium 4.1 Chloride 104 Carbon Dioxide 21 L BUN 19 H Creatinine 0.61 Calcium 8.2 L Assessment and Plan Patient Active problem list reviewed?: Yes (1) Bilateral pulmonary embolism Status: Acute Assessment and plan: 1. This is a 52-year-old woman with recurrent extensive bilateral pulmonary embolism diagnosed in August 2022. She developed bilateral pulmonary emboli/submassive PE in October 2021 and was on anticoagulation for 6 months. There is no family history of thrombosis embolism. Her risk factors include decreased ambulation, (amputation for osteomyelitis of the right foot), chronic smoking and history of IV drug abuse. She should be on long-term/lifelong anticoagulation. There is no role of thr ombophilia testing. Continue with Lovenox 1 mg/kilos b.i.d. until she is ready for discharge. She was again advised about smoking cessation and abstaining from IV drug abuse. Follow-up with Hematology after discharge. I thank you for this consultation. - Time Spent With Patient Time Spent with Patient (in minutes): 20
[2022-08-29 10:56] LABS: Glucose, Whole Blood 273 mg/dL (60-115)
--- NOTE | 2022-08-29 13:13 | P.PNIM_ITS ---
Subjective Subjective Date of Service: 08/29/22 Interval History: Remains hemodynamically stable. Slowly decrease in O2 requirement. Does note panic attack last night Review of Systems Denies chest pain Admits to shortness of breath with exertion Denies nausea vomiting diarrhea Denies fever chills Physical Exam Vital Signs: Vital Signs: Last Vital Signs Temp 97.8 F 08/29/22 11:46 Pulse 66 08/29/22 11:46 Resp 22 H 08/29/22 11:46 BP 117/74 08/29/22 11:46 Pulse Ox 97 08/29/22 11:46 O2 Del Method 08/29/22 11:46 O2 Flow Rate 40 08/29/22 11:46 FiO2 90 08/29/22 11:46 BMI result Body Mass Index 35.6 Const: Other: Awake alert no acute distress Resp: Other: Clear to auscultation bilaterally no rales rhonchi wheezes Cardio: Other: No S4; positive S1-S2; no S3 murmurs rubs or gallops GI: Other: Soft nontender nondistended normoactive bowel sounds Extrem: Other: No edema Objective Data Active Medications Acetaminophen (Acetaminophen 325 Mg Tablet) 650 mg PO Q6H PRN PRN Reason: Pain, Mild (Pain Scale 1-3) Last Admin: 08/28/22 21:25 Dose: 650 mg Documented By: PAMELA Albuterol Sulfate 2.5 mg/ (Ipratropium [place] 0.5 mg) 0 mg INHALE RQ4H PRN PRN Reason: Wheezing Last Admin: 08/28/22 00:31 Dose: 1 each Documented By: CORTEZ Dextrose (Dextrose 50 % 25 Gm/50 Ml Syringe) 25 gm IVPUSH Q15M PRN; Protocol PRN Reason: per Hypoglycemia Standing Ord. Docusate Sodium (Docusate Sodium 100 Mg Capsule) 200 mg PO BEDTIME [facility] Last Admin: 08/28/22 21:30 Dose: Not Given Documented By: PAMELA Non-Admin Reason: Patient Refused Enoxaparin Sodium (Enoxaparin Sodium 100 Mg/Ml Syringe) 100 mg 1 mg/kg (100 mg) SUBCUT Q12H [facility] Last Admin: 08/29/22 03:12 Dose: 100 mg Documented By: PAMELA Gabapentin (Gabapentin 400 Mg Capsule) 400 mg PO QID [facility] Last Admin: 08/29/22 12:47 Dose: 400 mg Documented By: RAY Glucose (Glucose Gel 15 Gm Gel..Gram.) 15 gm PO Q15M PRN; Protocol PRN Reason: per Hypoglycemia Standing Ord. Hydroxyzine HCl (Hydroxyzine Hcl 25 Mg Tablet) 25 mg PO Q8H PRN PRN Reason: Anxiety Azithromycin 500 mg/ Sodium (Chloride) 250 mls @ 125 mls/hr IV Q24H [facility] Last Infusion: 08/29/22 00:19 Dose: 0 mls/hr Documented By: PAMELA Ceftriaxone Sodium 1 gm/ (Sodium Chloride) 50 mls @ 100 mls/hr IV Q24H [facility] Last Infusion: 08/28/22 22:04 Dose: 0 mls/hr Documented By: PAMELA Insulin Glargine (Insulin Glargine,Hum.Rec.Anlog 100 Unit/Ml 10 Ml Vial) 40 unit SUBCUT BEDTIME [facility] Last Admin: 08/28/22 21:26 Dose: 40 unit Documented By: PAMELA Insulin Glargine (Insulin Glargine,Hum.Rec.Anlog 100 Unit/Ml 10 Ml Vial) 20 unit SUBCUT DAILY [facility] Last Admin: 08/29/22 08:34 Dose: 20 unit Documented By: RAY Insulin Human Lispro (Insulin Lispro 100 Unit/Ml 3 Ml Vial) 0 unit SUBCUT QIDACHS [facility]; Protocol Last Admin: 08/29/22 12:47 Dose: 12 unit Documented By: RAY Lisinopril (Lisinopril 5 Mg Tablet) 5 mg PO DAILY [facility]; Protocol Last Admin: 08/29/22 08:35 Dose: 5 mg Documented By: RAY Melatonin (Melatonin 3 Mg Tablet) 6 mg PO BEDTIME PRN PRN Reason: Insomnia Last Admin: 08/28/22 21:28 Dose: 6 mg Documented By: PAMELA Methadone HCl (Methadone Hcl 20 Mg/2 Ml Oral.Conc) 120 mg PO DAILY [facility] Last Admin: 08/29/22 08:29 Dose: 120 mg Documented By: RAY Nicotine (Nicotine 21 Mg Patch.Td24) 21 mg TRANSDERMA DAILY [facility] Last Admin: 08/29/22 08:30 Dose: 21 mg Documented By: RAY Ondansetron HCl (Ondansetron Hcl 4 Mg/2 Ml Vial) 4 mg IVPUSH Q8H PRN PRN Reason: Nausea and Vomiting Pharmacy Consult (Consult Rx Perform Med Rec) 1 each MISCELLANE ONCE PRN PRN Reason: Consult order Polyethylene Glycol (Polyethylene Glycol 3350 17 Gm Powd.Pack) 17 gm PO DAILY [facility] Last Admin: 08/29/22 08:48 Dose: Not Given Documented By: RAY Non-Admin Reason: Patient Refused Sodium Chloride (0.9 % Sodium Chloride Flush 3 Ml Syringe) 3 ml IVFLUSH QSHIFT [facility] Last Admin: 08/29/22 08:43 Dose: 3 ml Documented By: RAY Labs 08/29/22 05:58 08/29/22 05:58 Labs: Laboratory Results - last 24 hr 08/28/22 08/28/22 08/29/22 16:03 19:56 05:58 MCV 90.8 MCH 28.9 MCHC 31.8 RDW 13.9 Plt Count 285 MPV 10.7 Absolute Nucleated RBC 0.000 Nucleated RBC % (auto) 0.0 Anion Gap Estim Creat Clear Calc Estimated GFR POC Glucose 262 H 220 H Random Glucose Calcium 08/29/22 08/29/22 08/29/22 05:58 07:04 10:52 MCV MCH MCHC RDW Plt Count MPV Absolute Nucleated RBC Nucleated RBC % (auto) Anion Gap 15 Estim Creat Clear Calc 128.8 Estimated GFR > 60 POC Glucose 184 H 273 H Random Glucose 212 H Calcium 8.2 L Assessment and Plan (1) Acute respiratory failure with hypoxia: Status: Acute (2) Bilateral pulmonary embolism: Status: Acute (3) Pneumonia: Status: Acute (4) NSTEMI (non-ST elevated myocardial infarction): Status: Acute Plan 52-year-old female with pertinent history of PE on Eliquis, opioid use disorder on methadone, essential hypertension, COPD, insulin-dependent diabetes mellitus who presents to emergency department evaluation of dyspnea. CTA consistent with submassive bilateral pulmonary emboli involving left and right main pulmonary artery 1.Acute hypoxemic respiratory failure due to Acute bilateral sub massive pulmonary embolism -Lovenox 1mg/kg... Eliquis to when discharged -transition to oral anticoagulation as per Hematology... Lifelong. No need for thrombophilia workup 2.Right-sided community-acquired pneumonia -sepsis resolved -continue ceftriaxone/azithromycin(5) 3.Insulin-dependent diabetes mellitus -Lantus 36 units HS; adjust as indicated -Lantis 20 mg q.a.m. -add metformin 500 b.i.d. 4.NSTEMI -Lovenox 1 milligram/kilogram -echo without evidence of right ventricular strain -cardiology following 5.Substance use disorder -continue methadone as ordered Lovenox Full code will require continued inpatient hospitalization for IV antibiotics, treatment for submassive PE and high-flow oxygen. Time Spent With Patient Time: Total time managing care of this patient today ____ minutes. Quality Stroke Does the patient have a stroke diagnosis?: No VTE Prior VTE?: No VTE Risk Level:: Medical - moderate - high VTE Device Contraindication: Treatment Not Indicated VTE Drug Contraindication: N/A - Med Ordered
[2022-08-29 15:46] LABS: Glucose, Whole Blood 259 mg/dL (60-115)
[2022-08-29 19:21] LABS: Glucose, Whole Blood 289 mg/dL (60-115)
[2022-08-29] MEDS: Acetaminophen 325 MG TABLET 650 MG PO (20:51)
[2022-08-29] MEDS: Melatonin 3 MG TABLET 6 MG PO (20:51)
[2022-08-29] MEDS: Insulin Glargine,Hum.rec.anlog 100 UNIT/ML 10 ML VIAL 40 UNIT SUBCUT (20:52)
[2022-08-29] MEDS: cefTRIAXone sodium 1 GM in 0.9 % Sodium Chloride 50 ML IV (20:52)
[2022-08-29] MEDS: Azithromycin 500 MG in 0.9 % Sodium Chloride 250 ML 125 MG IV (21:50)
[2022-08-30] VITALS (11 sets, daily range): BP systolic 115–150; BP diastolic 67–72; PULSE 52–83; RESP 14–24; TEMP 36.4–37; O2SAT 93–99
[2022-08-30] MEDS: Enoxaparin Sodium 100 MG/ML SYRINGE SUBCUT ×2 (06:10→16:51)
[2022-08-30 07:27] LABS: Glucose, Whole Blood 153 mg/dL (60-115)
[2022-08-30 08:28] LABS: MANUAL DIFF FLAG NO
[2022-08-30 08:34] LABS: Basophils Absolute Auto 0.1 X10*3/uL (0.0-0.2); Basophils Percent Auto 1.1 % (0-2); Eosinophils Absolute Auto 0.3 X10*3/uL (0.0-0.4); Eosinophils Percent Auto 2.6 % (0-4); Hematocrit 36.9 % (37.0-47.0); Hemoglobin 11.4 g/dl (12.0-16.0); Imm Gran Abs Auto 0.31 X10*3/uL (0.00-0.03); Imm Gran Pct Auto 3.1 % (0.0-0.4); Lymphocytes Percent Auto 20.4 % (20-40); Mean Corpuscular HGB Conc 30.9 g/dl (31.0-35.0); Mean Corpuscular Hemoglobin 28.8 pg (27.0-33.0); Mean Corpuscular Volume 93.2 fL (80.0-98.0); Mean Platelet Volume 11.3 fL (9.4-12.3); Monocytes Absolute Auto 0.5 X10*3/uL (0.1-1.2); Monocytes Percent Auto 5.2 % (2-11); Neutrophils Absolute Auto 6.8 x10*3/uL (2.0-8.3); Neutrophils Percent Auto 67.6 % (45-73); Platelet Count 176 X10*3/uL (160-400); Red Blood Count 3.96 X10*6/uL (4.20-5.50); Red Cell Distribution Width 14.1 % (11.0-16.0)
[2022-08-30 09:24] LABS: LDL Cholesterol Direct 102 mg/dL (<100)
[2022-08-30] MEDS: Insulin Lispro 100 UNIT/ML 3 ML VIAL SUBCUT ×4 (10:21→22:28)
[2022-08-30] MEDS: methADONE HCl 20 MG/2 ML ORAL.CONC 120 MG PO (10:22)
[2022-08-30] MEDS: 0.9 % Sodium Chloride Flush 3 ML SYRINGE IVFLUSH ×3 (10:22→22:39)
[2022-08-30] MEDS: Gabapentin 400 MG CAPSULE PO ×4 (10:23→22:28)
[2022-08-30] MEDS: lisinopriL 5 MG TABLET PO (10:23)
[2022-08-30] MEDS: Nicotine 21 MG PATCH.TD24 TRANSDERMA (10:25)
[2022-08-30] MEDS: Insulin Glargine,Hum.rec.anlog 100 UNIT/ML 10 ML VIAL 20 UNIT SUBCUT (10:25)
[2022-08-30 10:58] LABS: Glucose, Whole Blood 241 mg/dL (60-115)
--- NOTE | 2022-08-30 11:13 | HO.PM.IMPN ---
Subjective Subjective Date of Service: 08/30/22 Interval History: Remains hemodynamically stable. Slowly decrease in O2 requirement. Ativan effective for anxiety overnight Review of Systems Denies chest pain Admits to shortness of breath with exertion Denies nausea vomiting diarrhea Denies fever chills Physical Exam Vital Signs: Vital Signs: Last Vital Signs Temp 98.6 F 08/30/22 07:42 Pulse 71 08/30/22 07:42 Resp 24 H 08/30/22 07:42 BP 145/68 H 08/30/22 07:42 Pulse Ox 93 08/30/22 07:42 O2 Del Method 08/30/22 07:42 O2 Flow Rate 40 08/30/22 07:42 FiO2 90 08/30/22 07:42 BMI result Body Mass Index 35.6 Const: Other: Awake alert no acute distress Resp: Other: Clear to auscultation bilaterally no rales rhonchi wheezes Cardio: Other: No S4; positive S1-S2; no S3 murmurs rubs or gallops GI: Other: Soft nontender nondistended normoactive bowel sounds Extrem: Other: No edema Objective Data Active Medications Acetaminophen (Acetaminophen 325 Mg Tablet) 650 mg PO Q6H PRN PRN Reason: Pain, Mild (Pain Scale 1-3) Last Admin: 08/29/22 20:51 Dose: 650 mg Documented By: PAMELA Albuterol Sulfate 2.5 mg/ (Ipratropium [place] 0.5 mg) 0 mg INHALE RQ4H PRN PRN Reason: Wheezing Last Admin: 08/28/22 00:31 Dose: 1 each Documented By: CORTEZ Dextrose (Dextrose 50 % 25 Gm/50 Ml Syringe) 25 gm IVPUSH Q15M PRN; Protocol PRN Reason: per Hypoglycemia Standing Ord. Docusate Sodium (Docusate Sodium 100 Mg Capsule) 200 mg PO BEDTIME [facility] Last Admin: 08/29/22 20:53 Dose: Not Given Documented By: PAMELA Non-Admin Reason: Patient Refused Enoxaparin Sodium (Enoxaparin Sodium 100 Mg/Ml Syringe) 100 mg 1 mg/kg (100 mg) SUBCUT Q12H [facility] Last Admin: 08/30/22 06:10 Dose: 100 mg Documented By: PAMELA Gabapentin (Gabapentin 400 Mg Capsule) 400 mg PO QID [facility] Last Admin: 08/30/22 10:23 Dose: 400 mg Documented By: RAY Glucose (Glucose Gel 15 Gm Gel..Gram.) 15 gm PO Q15M PRN; Protocol PRN Reason: per Hypoglycemia Standing Ord. Hydroxyzine HCl (Hydroxyzine Hcl 25 Mg Tablet) 25 mg PO Q8H PRN PRN Reason: Anxiety Azithromycin 500 mg/ Sodium (Chloride) 250 mls @ 125 mls/hr IV Q24H [facility] Last Infusion: 08/30/22 00:02 Dose: 0 mls/hr Documented By: PAMELA Ceftriaxone Sodium 1 gm/ (Sodium Chloride) 50 mls @ 100 mls/hr IV Q24H [facility] Last Infusion: 08/29/22 21:50 Dose: 0 mls/hr Documented By: PAMELA Insulin Glargine (Insulin Glargine,Hum.Rec.Anlog 100 Unit/Ml 10 Ml Vial) 40 unit SUBCUT BEDTIME [facility] Last Admin: 08/29/22 20:52 Dose: 40 unit Documented By: PAMELA Insulin Glargine (Insulin Glargine,Hum.Rec.Anlog 100 Unit/Ml 10 Ml Vial) 20 unit SUBCUT DAILY [facility] Last Admin: 08/30/22 10:25 Dose: 20 unit Documented By: RAY Insulin Human Lispro (Insulin Lispro 100 Unit/Ml 3 Ml Vial) 0 unit SUBCUT QIDACHS [facility]; Protocol Last Admin: 08/30/22 10:21 Dose: 6 unit Documented By: RAY Lisinopril (Lisinopril 5 Mg Tablet) 5 mg PO DAILY [facility]; Protocol Last Admin: 08/30/22 10:23 Dose: 5 mg Documented By: RAY Lorazepam (Lorazepam 1 Mg Tablet) 1 mg PO BEDTIME PRN PRN Reason: anxiety/restlessness Last Admin: 08/29/22 20:51 Dose: 1 mg Documented By: PAMELA Melatonin (Melatonin 3 Mg Tablet) 6 mg PO BEDTIME PRN PRN Reason: Insomnia Last Admin: 08/29/22 20:51 Dose: 6 mg Documented By: PAMELA Methadone HCl (Methadone Hcl 20 Mg/2 Ml Oral.Conc) 120 mg PO DAILY [facility] Last Admin: 08/30/22 10:22 Dose: 120 mg Documented By: RAY Nicotine (Nicotine 21 Mg Patch.Td24) 21 mg TRANSDERMA DAILY [facility] Last Admin: 08/30/22 10:25 Dose: 21 mg Documented By: RAY Ondansetron HCl (Ondansetron Hcl 4 Mg/2 Ml Vial) 4 mg IVPUSH Q8H PRN PRN Reason: Nausea and Vomiting Pharmacy Consult (Consult Rx Perform Med Rec) 1 each MISCELLANE ONCE PRN PRN Reason: Consult order Polyethylene Glycol (Polyethylene Glycol 3350 17 Gm Powd.Pack) 17 gm PO DAILY [facility] Last Admin: 08/30/22 10:31 Dose: Not Given Documented By: RAY Non-Admin Reason: Patient Refused Sodium Chloride (0.9 % Sodium Chloride Flush 3 Ml Syringe) 3 ml IVFLUSH QSHIFT [facility] Last Admin: 08/30/22 10:22 Dose: 3 ml Documented By: RAY Labs 08/30/22 08:23 08/29/22 05:58 Labs: Laboratory Results - last 24 hr 08/29/22 08/29/22 08/29/22 05:58 15:41 19:16 MCV MCH MCHC RDW Plt Count MPV Immature Gran % (Auto) Neut % (Auto) Lymph % (Auto) [place] % (Auto) Eos % (Auto) Baso % (Auto) Lymph # (Auto) [place] # (Auto) Eos # (Auto) Baso # (Auto) Abs Immat Gran (auto) Absolute Neuts (auto) Absolute Nucleated RBC Nucleated RBC % (auto) POC Glucose 259 H 289 H LDL Cholesterol Direct 102 H 08/30/22 08/30/22 08/30/22 07:19 08:23 10:51 MCV 93.2 MCH 28.8 MCHC 30.9 L RDW 14.1 Plt Count 176 D MPV 11.3 Immature Gran % (Auto) 3.1 H Neut % (Auto) 67.6 Lymph % (Auto) 20.4 [place] % (Auto) 5.2 Eos % (Auto) 2.6 Baso % (Auto) 1.1 Lymph # (Auto) 2.0 [place] # (Auto) 0.5 Eos # (Auto) 0.3 Baso # (Auto) 0.1 Abs Immat Gran (auto) 0.31 H Absolute Neuts (auto) 6.8 Absolute Nucleated RBC 0.000 Nucleated RBC % (auto) 0.0 POC Glucose 153 H 241 H LDL Cholesterol Direct Microbiology Microbiology Results: Microbiology 08/24/22 22:43 Blood Culture - Final Blood - Venous No growth after 5 days. 08/24/22 22:18 Blood Culture - Final Blood - Venous No growth after 5 days. Assessment and Plan (1) Bilateral pulmonary embolism: Status: Acute (2) Pneumonia: Status: Acute (3) Diabetes: Status: Acute (4) Opioid use disorder: Status: Acute Plan 52-year-old female with pertinent history of PE on Eliquis, opioid use disorder on methadone, essential hypertension, COPD, insulin-dependent diabetes mellitus who presents to emergency department evaluation of dyspnea. CTA consistent with submassive bilateral pulmonary emboli involving left and right main pulmonary artery 1.Acute hypoxemic respiratory failure due to Acute bilateral sub massive pulmonary embolism -Lovenox 1mg/kg... Eliquis to when discharged -transition to oral anticoagulation as per Hematology... Lifelong. No need for thrombophilia workup 2.Right-sided community-acquired pneumonia -sepsis resolved -continue ceftriaxone/azithromycin(6) 3.Insulin-dependent diabetes mellitus -Lantus 36 units HS; adjust as indicated -Lantis 20 mg q.a.m. -add metformin 500 b.i.d... Fasting sugar improved 4.NSTEMI -Lovenox 1 milligram/kilogram -echo without evidence of right ventricular strain -cardiology following 5.Substance use disorder -continue methadone as ordered Lovenox Full code will require continued inpatient hospitalization for IV antibiotics, treatment for submassive PE and high-flow oxygen. Time Spent With Patient Time: Total time managing care of this patient today ____ minutes. Quality Stroke Does the patient have a stroke diagnosis?: No VTE Prior VTE?: No VTE Risk Level:: Medical - moderate - high VTE Device Contraindication: Treatment Not Indicated VTE Drug Contraindication: N/A - Med Ordered
[2022-08-30 16:05] LABS: Glucose, Whole Blood 193 mg/dL (60-115)
[2022-08-30] MEDS: Acetaminophen 325 MG TABLET 650 MG PO ×2 (16:58→22:28)
[2022-08-30 20:53] LABS: Glucose, Whole Blood 311 mg/dL (60-115)
[2022-08-30] MEDS: LORazepam 1 MG TABLET PO (22:28)
[2022-08-30] MEDS: Melatonin 3 MG TABLET 6 MG PO (22:30)
[2022-08-30] MEDS: Insulin Glargine,Hum.rec.anlog 100 UNIT/ML 10 ML VIAL 40 UNIT SUBCUT (22:30)
[2022-08-30] MEDS: cefTRIAXone sodium 1 GM in 0.9 % Sodium Chloride 50 ML IV (22:31)
[2022-08-30] MEDS: Azithromycin 500 MG in 0.9 % Sodium Chloride 250 ML 125 MG IV (23:22)
[2022-08-31] VITALS (9 sets, daily range): BP systolic 117–142; BP diastolic 65–78; PULSE 65–78; RESP 14–20; TEMP 36.1–36.6; O2SAT 92–100
[2022-08-31] MEDS: Enoxaparin Sodium 100 MG/ML SYRINGE SUBCUT ×2 (03:20→14:01)
[2022-08-31 07:39] LABS: Glucose, Whole Blood 72 mg/dL (60-115)
[2022-08-31 09:13] LABS: Basophils Absolute Auto 0.2 X10*3/uL (0.0-0.2); Basophils Percent Auto 1.2 % (0-2); Eosinophils Absolute Auto 0.3 X10*3/uL (0.0-0.4); Eosinophils Percent Auto 2.2 % (0-4); Hematocrit 36.4 % (37.0-47.0); Hemoglobin 11.3 g/dl (12.0-16.0); Imm Gran Abs Auto 0.57 X10*3/uL (0.00-0.03); Imm Gran Pct Auto 4.6 % (0.0-0.4); Lymphocytes Absolute Auto 3.5 X10*3/uL (1.2-4.9); Lymphocytes Percent Auto 28.1 % (20-40); Mean Corpuscular Hemoglobin 28.8 pg (27.0-33.0); Mean Corpuscular Volume 92.9 fL (80.0-98.0); Mean Platelet Volume 11.1 fL (9.4-12.3); Monocytes Absolute Auto 0.7 X10*3/uL (0.1-1.2); Monocytes Percent Auto 5.4 % (2-11); Neutrophils Absolute Auto 7.3 x10*3/uL (2.0-8.3); Neutrophils Percent Auto 58.5 % (45-73); Platelet Count 257 X10*3/uL (160-400); Red Blood Count 3.92 X10*6/uL (4.20-5.50); Red Cell Distribution Width 14.4 % (11.0-16.0); White Blood Count 12.5 X10*3/uL (4.8-10.8)
[2022-08-31] MEDS: Nicotine 21 MG PATCH.TD24 TRANSDERMA (09:55)
[2022-08-31] MEDS: methADONE HCl 20 MG/2 ML ORAL.CONC 120 MG PO (09:57)
[2022-08-31] MEDS: lisinopriL 5 MG TABLET PO (09:57)
[2022-08-31] MEDS: polyethylene glycoL 3350 17 GM POWD.PACK PO (09:58)
[2022-08-31] MEDS: Gabapentin 400 MG CAPSULE PO ×4 (09:58→21:30)
[2022-08-31] MEDS: 0.9 % Sodium Chloride Flush 3 ML SYRINGE IVFLUSH ×2 (09:58→17:25)
[2022-08-31] MEDS: Insulin Glargine,Hum.rec.anlog 100 UNIT/ML 10 ML VIAL 20 UNIT SUBCUT (09:58)
[2022-08-31] MEDS: Acetaminophen 325 MG TABLET 650 MG PO ×2 (10:57→21:29)
--- NOTE | 2022-08-31 12:56 | MHC.CM.PN ---
per rounds pt n ot medically clear for dc
[2022-08-31 13:39] LABS: Alanine Aminotransferase 11 U/L (0-31); Albumin Level 2.8 g/dL (3.5-5.0); Alkaline Phosphatase 112 U/L (39-117); Anion Gap 13 (12-20); Aspartate Amino Transferase 15 U/L (5-31); Bilirubin Total < 0.2 mg/dL (0.0-1.0); Blood Urea Nitrogen 13 mg/dL (9-16); Calcium 8.4 mg/dL (8.4-10.2); Carbon Dioxide 27 mmol/L (22-29); Chloride 100 mmol/L (96-108); Creatinine Clr Calc Pharmacy 126.7; Estimated Glomerular Filt Rate > 60; Glucose Fasting 246 mg/dL (60-99); Potassium 4.4 mmol/L (3.3-5.1); Sodium 136 mmol/L (135-145); Total Protein 5.6 g/dL (6.5-8.0)
[2022-08-31 13:53] LABS: Glucose, Whole Blood 251 mg/dL (60-115)
[2022-08-31] MEDS: Insulin Lispro 100 UNIT/ML 3 ML VIAL SUBCUT ×3 (14:01→21:30)
--- NOTE | 2022-08-31 14:22 | P.CDIC_ITS ---
CDI Concurrent Query Documentation Clarification: PHYSICIAN'S DOCUMENTATION REQUEST Date of Query: 08/31/22 1422 Patient Name: Marilou Siddiqui Admit Date: 08/25/22 Dear Doctor, A review of the medical record indicates additional documentation may be needed. Please review below and update the documentation accordingly. Clinical Indicators: Is there a diagnosis that correlates with the findings below: Risk Factors/Clinical Indicators/Treatments Labs: POC on 08/30 POC on 08/31 Medications: Lantus 36 units?at HS Lantus 20 units qAM Metformin 500mg BID Based on the above, could you clarify in the Progress Notes the appropriate diagnosis, if significant, that supports the above abnormalities and additional evaluation, monitoring, and/or treatment rendered: * Hyperglycemia * Other (please specify) * Unable to determine Use of terms such as suspected, likely, concern for, or probable (associated with a specific diagnosis that is being evaluated, monitored, or treated as if it exists) are acceptable and can be coded in the inpatient setting, when documented at the time of discharge. Thank you, Marian Denney MS, RN, CCRN Extension: [phone] Please use your independent medical judgment in providing your response. THIS QUERY IS PART OF THE PERMANENT MEDICAL RECORD Provider Response: Other Other Diagnosis: Diabetes type 2
--- NOTE | 2022-08-31 14:28 | P.CDIC_ITS ---
CDI Concurrent Query Documentation Clarification: PHYSICIAN'S DOCUMENTATION REQUEST Date of Query: 08/31/22 1429 Patient Name: Marilou Siddiqui Admit Date: 08/25/22 Dear Doctor, A review of the medical record indicates additional documentation may be needed. Please review below and update the documentation accordingly. Clinical Indicators: Is there a diagnosis that correlates with the findings below: Risk Factors/Clinical Indicators/Treatments BMI: 35.6 Height: 5ft 6in Weight: 100.1kg Per RN shift assessments: abdomen large & obese If possible, please provide an associated diagnosis related to the abnormal BMI, such as: BMI: * Obesity * Due to excess calories * Drug induced * Due to other cause * Severe or Morbid Obesity * With alveolar hypoventilation * Without alveolar hypoventilation Or: * BMI is not significant * Other (please specify) * Unable to determine Use of terms such as suspected, likely, concern for, or probable (associated with a specific diagnosis that is being evaluated, monitored, or treated as if it exists) are acceptable and can be coded in the inpatient setting, when documented at the time of discharge. Thank you, Marian Denney, MS, RN, CCRN Extension: [phone] Please use your independent medical judgment in providing your response. THIS QUERY IS PART OF THE PERMANENT MEDICAL RECORD Provider Response: Other Other Diagnosis: Obesity due to excess calories
--- NOTE | 2022-08-31 15:32 | P.PNIM_ITS ---
Subjective Subjective Date of Service: 08/31/22 Interval History: Tolerating titration of O2 without issue. Remains hemodynamically stable Review of Systems Denies chest pain Admits to shortness of breath with exertion Denies nausea vomiting diarrhea Denies fever chills Physical Exam 2 Vital Signs: Vital Signs: Last Vital Signs Temp 97.0 F 08/31/22 07:24 Pulse 76 08/31/22 11:12 Resp 18 08/31/22 11:12 BP 127/78 08/31/22 07:24 Pulse Ox 100 08/31/22 07:24 O2 Del Method 08/31/22 07:24 O2 Flow Rate 40 08/31/22 07:24 FiO2 90 08/31/22 07:24 BMI result Body Mass Index 35.6 Const: Other: Awake alert no acute distress Resp: Other: Clear to auscultation bilaterally no rales rhonchi wheezes Cardio: Other: No S4; positive S1-S2; no S3 murmurs rubs or gallops GI: Other: Soft nontender nondistended normoactive bowel sounds Extrem: Other: No edema Objective Data Active Medications Acetaminophen (Acetaminophen 325 Mg Tablet) 650 mg PO Q6H PRN PRN Reason: Pain, Mild (Pain Scale 1-3) Last Admin: 08/31/22 10:57 Dose: 650 mg Documented By: JAMES Albuterol Sulfate 2.5 mg/ (Ipratropium [place] 0.5 mg) 0 mg INHALE RQ4H PRN PRN Reason: Wheezing Last Admin: 08/31/22 11:08 Dose: 2.5 each Documented By: ETTA Dextrose (Dextrose 50 % 25 Gm/50 Ml Syringe) 25 gm IVPUSH Q15M PRN; Protocol PRN Reason: per Hypoglycemia Standing Ord. Docusate Sodium (Docusate Sodium 100 Mg Capsule) 200 mg PO BEDTIME [facility] Last Admin: 08/30/22 22:29 Dose: Not Given Documented By: PETER Non-Admin Reason: Patient Refused Enoxaparin Sodium (Enoxaparin Sodium 100 Mg/Ml Syringe) 100 mg 1 mg/kg (100 mg) SUBCUT Q12H [facility] Last Admin: 08/31/22 14:01 Dose: 100 mg Documented By: JAMES Gabapentin (Gabapentin 400 Mg Capsule) 400 mg PO QID [facility] Last Admin: 08/31/22 14:00 Dose: 400 mg Documented By: JAMES Glucose (Glucose Gel 15 Gm Gel..Gram.) 15 gm PO Q15M PRN; Protocol PRN Reason: per Hypoglycemia Standing Ord. Hydroxyzine HCl (Hydroxyzine Hcl 25 Mg Tablet) 25 mg PO Q8H PRN PRN Reason: Anxiety Azithromycin 500 mg/ Sodium (Chloride) 250 mls @ 125 mls/hr IV Q24H [facility] Last Infusion: 08/31/22 02:14 Dose: 0 mls/hr Documented By: PETER Ceftriaxone Sodium 1 gm/ (Sodium Chloride) 50 mls @ 100 mls/hr IV Q24H [facility] Last Infusion: 08/30/22 23:56 Dose: 0 mls/hr Documented By: PETER Insulin Glargine (Insulin Glargine,Hum.Rec.Anlog 100 Unit/Ml 10 Ml Vial) 40 unit SUBCUT BEDTIME [facility] Last Admin: 08/30/22 22:30 Dose: 40 unit Documented By: PETER Insulin Glargine (Insulin Glargine,Hum.Rec.Anlog 100 Unit/Ml 10 Ml Vial) 20 unit SUBCUT DAILY [facility] Last Admin: 08/31/22 09:58 Dose: 20 unit Documented By: JAMES Insulin Human Lispro (Insulin Lispro 100 Unit/Ml 3 Ml Vial) 0 unit SUBCUT QIDACHS [facility]; Protocol Last Admin: 08/31/22 14:01 Dose: 12 unit Documented By: JAMES Lisinopril (Lisinopril 5 Mg Tablet) 5 mg PO DAILY [facility]; Protocol Last Admin: 08/31/22 09:57 Dose: 5 mg Documented By: JAMES Lorazepam (Lorazepam 1 Mg Tablet) 1 mg PO BEDTIME PRN PRN Reason: anxiety/restlessness Last Admin: 08/30/22 22:28 Dose: 1 mg Documented By: PETER Melatonin (Melatonin 3 Mg Tablet) 6 mg PO BEDTIME PRN PRN Reason: Insomnia Last Admin: 08/30/22 22:30 Dose: 6 mg Documented By: PETER Methadone HCl (Methadone Hcl 20 Mg/2 Ml Oral.Conc) 120 mg PO DAILY [facility] Last Admin: 08/31/22 09:57 Dose: 120 mg Documented By: JAMES Nicotine (Nicotine 21 Mg Patch.Td24) 21 mg TRANSDERMA DAILY [facility] Last Admin: 08/31/22 09:55 Dose: 21 mg Documented By: JAMES Ondansetron HCl (Ondansetron Hcl 4 Mg/2 Ml Vial) 4 mg IVPUSH Q8H PRN PRN Reason: Nausea and Vomiting Pharmacy Consult (Consult Rx Perform Med Rec) 1 each MISCELLANE ONCE PRN PRN Reason: Consult order Polyethylene Glycol (Polyethylene Glycol 3350 17 Gm Powd.Pack) 17 gm PO DAILY [facility] Last Admin: 08/31/22 09:58 Dose: 17 gm Documented By: JAMES Sodium Chloride (0.9 % Sodium Chloride Flush 3 Ml Syringe) 3 ml IVFLUSH QSHIFT [facility] Last Admin: 08/31/22 09:58 Dose: 3 ml Documented By: JAMES Labs 08/31/22 08:38 08/31/22 12:53 Labs: Laboratory Results - last 24 hr 08/30/22 08/30/22 08/30/22 08:23 15:54 20:45 MCV MCH MCHC RDW Plt Count MPV Immature Gran % (Auto) Neut % (Auto) Lymph % (Auto) [place] % (Auto) Eos % (Auto) Baso % (Auto) Lymph # (Auto) [place] # (Auto) Eos # (Auto) Baso # (Auto) Abs Immat Gran (auto) Absolute Neuts (auto) Absolute Nucleated RBC Nucleated RBC % (auto) Anion Gap Cancelled Estim Creat Clear Calc Cancelled Estimated GFR Cancelled POC Glucose 193 H 311 H Fasting Glucose Cancelled Calcium Cancelled Total Bilirubin Cancelled AST Cancelled ALT Cancelled Alkaline Phosphatase Cancelled Total Protein Cancelled Albumin Cancelled 08/31/22 08/31/22 08/31/22 07:23 08:38 12:53 MCV 92.9 MCH 28.8 MCHC 31.0 RDW 14.4 Plt Count 257 D MPV 11.1 Immature Gran % (Auto) 4.6 H Neut % (Auto) 58.5 Lymph % (Auto) 28.1 [place] % (Auto) 5.4 Eos % (Auto) 2.2 Baso % (Auto) 1.2 Lymph # (Auto) 3.5 [place] # (Auto) 0.7 Eos # (Auto) 0.3 Baso # (Auto) 0.2 Abs Immat Gran (auto) 0.57 H Absolute Neuts (auto) 7.3 Absolute Nucleated RBC 0.000 Nucleated RBC % (auto) 0.0 Anion Gap 13 Estim Creat Clear Calc 126.7 Estimated GFR > 60 POC Glucose 72 Fasting Glucose 246 H Calcium 8.4 Total Bilirubin < 0.2 AST 15 ALT 11 Alkaline Phosphatase 112 Total Protein 5.6 L Albumin 2.8 L 08/31/22 13:50 MCV MCH MCHC RDW Plt Count MPV Immature Gran % (Auto) Neut % (Auto) Lymph % (Auto) [place] % (Auto) Eos % (Auto) Baso % (Auto) Lymph # (Auto) [place] # (Auto) Eos # (Auto) Baso # (Auto) Abs Immat Gran (auto) Absolute Neuts (auto) Absolute Nucleated RBC Nucleated RBC % (auto) Anion Gap Estim Creat Clear Calc Estimated GFR POC Glucose 251 H Fasting Glucose Calcium Total Bilirubin AST ALT Alkaline Phosphatase Total Protein Albumin Assessment and Plan (1) Bilateral pulmonary embolism: Status: Acute (2) Pneumonia: Status: Acute (3) Opioid use disorder: Status: Acute Plan 52-year-old female with pertinent history of PE on Eliquis, opioid use disorder on methadone, essential hypertension, COPD, insulin-dependent diabetes mellitus who presents to emergency department evaluation of dyspnea. CTA consistent with submassive bilateral pulmonary emboli involving left and right main pulmonary artery 1.Acute hypoxemic respiratory failure due to Acute bilateral sub massive pulmonary embolism -Lovenox 1mg/kg... Eliquis to when discharged -transition to oral anticoagulation as per Hematology... Lifelong. No need for thrombophilia workup 2.Right-sided community-acquired pneumonia -sepsis resolved -continue ceftriaxone/azithromycin(7) -DC antibiotics in a.m. 3.Insulin-dependent diabetes mellitus -Lantus 36 units HS; adjust as indicated -[place] 20 mg q.a.m. -add metformin 500 b.i.d 4.NSTEMI -Lovenox 1 milligram/kilogram -echo without evidence of right ventricular strain -cardiology following 5.Substance use disorder -continue methadone as ordered Lovenox Full code will require continued inpatient hospitalization for IV antibiotics, treatment for submassive PE and high-flow oxygen. Time Spent With Patient Time: Total time managing care of this patient today ____ minutes. Quality Stroke Does the patient have a stroke diagnosis?: No VTE Prior VTE?: No VTE Risk Level:: Medical - moderate - high VTE Device Contraindication: Treatment Not Indicated VTE Drug Contraindication: N/A - Med Ordered
[2022-08-31 16:37] LABS: Glucose, Whole Blood 229 mg/dL (60-115)
[2022-08-31] MEDS: metFORMIN HCl 500 MG TABLET PO (17:24)
[2022-08-31 20:32] LABS: Glucose, Whole Blood 179 mg/dL (60-115)
[2022-08-31] MEDS: Insulin Glargine,Hum.rec.anlog 100 UNIT/ML 10 ML VIAL 40 UNIT SUBCUT (21:29)
[2022-08-31] MEDS: Melatonin 3 MG TABLET 6 MG PO (21:30)
[2022-08-31] MEDS: LORazepam 1 MG TABLET PO (21:30)
[2022-08-31] MEDS: cefTRIAXone sodium 1 GM in 0.9 % Sodium Chloride 50 ML IV (21:33)
[2022-08-31] MEDS: Azithromycin 500 MG in 0.9 % Sodium Chloride 250 ML 125 MG IV (22:31)
[2022-09-01] MEDS: Enoxaparin Sodium 100 MG/ML SYRINGE SUBCUT (03:07)
[2022-09-01 03:08] VITALS: BP 121/67; PULSE 72; RESP 14; TEMP 36.4; O2SAT 93
[2022-09-01 06:51] LABS: Hematocrit 33.8 % (37.0-47.0); Hemoglobin 10.6 g/dl (12.0-16.0); Mean Corpuscular HGB Conc 31.4 g/dl (31.0-35.0); Mean Corpuscular Hemoglobin 28.5 pg (27.0-33.0); Mean Corpuscular Volume 90.9 fL (80.0-98.0); Platelet Count 274 X10*3/uL (160-400); Red Blood Count 3.72 X10*6/uL (4.20-5.50); Red Cell Distribution Width 14.1 % (11.0-16.0); White Blood Count 12.5 X10*3/uL (4.8-10.8)
[2022-09-01 07:13] LABS: Alanine Aminotransferase 11 U/L (0-31); Albumin Level 2.9 g/dL (3.5-5.0); Alkaline Phosphatase 101 U/L (39-117); Anion Gap 14 (12-20); Aspartate Amino Transferase 13 U/L (5-31); Bilirubin Total < 0.2 mg/dL (0.0-1.0); Blood Urea Nitrogen 16 mg/dL (9-16); Calcium 8.8 mg/dL (8.4-10.2); Carbon Dioxide 26 mmol/L (22-29); Chloride 101 mmol/L (96-108); Creatinine Clr Calc Pharmacy 117.2; Estimated Glomerular Filt Rate > 60; Glucose Fasting 255 mg/dL (60-99); Potassium 4.3 mmol/L (3.3-5.1); Sodium 137 mmol/L (135-145); Total Protein 5.7 g/dL (6.5-8.0)
[2022-09-01 07:43] LABS: Glucose, Whole Blood 233 mg/dL (60-115)
[2022-09-01 08:00] VITALS: BP 128/68; PULSE 69; RESP 16; TEMP 36.6; O2SAT 97
[2022-09-01 08:10] LABS: Band Neutrophils Percent 7 % (3-5); Eosinophils Absolute Manual 0.5 X10*3/uL (0.0-0.4); Eosinophils Percent Manual 4 % (0-4); Lymphocytes Absolute Manual 2.8 X10*3/uL (1.2-4.9); Lymphocytes Percent Manual 22 % (20-40); Metamyelocytes Absolute 0.3 X10*3/uL; Metamyelocytes Percent 2 %; Monocytes Absolute Manual 0.4 X10*3/uL (0.1-1.2); Monocytes Percent Manual 3 % (2-11); Myelocytes Absolute 0.3 X10*/uL; Myelocytes Percent 2 %; Neutrophils Absolute Manual 8.4 X10*3/uL (2.0-8.3); Neutrophils Percent Manual 60 % (45-73)
[2022-09-01 08:12] LABS: Platelet Estimate NORMAL (NORMAL); Platelet Morphology Comment NORMAL; RBC Morphology NORMAL
[2022-09-01] MEDS: lisinopriL 5 MG TABLET PO (08:21)
[2022-09-01] MEDS: Gabapentin 400 MG CAPSULE PO ×4 (08:21→21:29)
[2022-09-01] MEDS: Insulin Lispro 100 UNIT/ML 3 ML VIAL SUBCUT ×2 (08:22→11:58)
[2022-09-01] MEDS: methADONE HCl 20 MG/2 ML ORAL.CONC 120 MG PO (08:22)
[2022-09-01] MEDS: Nicotine 21 MG PATCH.TD24 TRANSDERMA (08:22)
[2022-09-01] MEDS: Insulin Glargine,Hum.rec.anlog 100 UNIT/ML 10 ML VIAL 20 UNIT SUBCUT (08:23)
[2022-09-01] MEDS: metFORMIN HCl 500 MG TABLET PO ×2 (08:25→17:11)
[2022-09-01] MEDS: 0.9 % Sodium Chloride Flush 3 ML SYRINGE IVFLUSH ×3 (08:26→22:08)
--- NOTE | 2022-09-01 11:05 | P.PNIM_ITS ---
Subjective Subjective Date of Service: 09/01/22 Interval History: No sob, O2 sat better, currently 97 on 2 liters Review of Systems Denies chest pain Admits to shortness of breath with exertion Denies nausea vomiting diarrhea Denies fever chills Physical Exam Vital Signs: Vital Signs: Last Vital Signs Temp 97.9 F 09/01/22 08:00 Pulse 69 09/01/22 08:00 Resp 16 09/01/22 08:00 BP 128/68 09/01/22 08:00 Pulse Ox 97 09/01/22 08:00 O2 Del Method 09/01/22 08:00 O2 Flow Rate 2 09/01/22 08:00 FiO2 90 08/31/22 07:24 BMI result Body Mass Index 35.6 Const: Other: General: AO X 3, no acute distress Resp: CTA bilateral CVS: S1,S2,RRR GI: +BS, NT, no distention Skin: No rash Neuro: motor grossly intact Psych: appropriate affect Objective Data Active Medications Acetaminophen (Acetaminophen 325 Mg Tablet) 650 mg PO Q6H PRN PRN Reason: Pain, Mild (Pain Scale 1-3) Last Admin: 08/31/22 21:29 Dose: 650 mg Documented By: PETER Albuterol Sulfate 2.5 mg/ (Ipratropium [place] 0.5 mg) 0 mg INHALE RQ4H PRN PRN Reason: Wheezing Last Admin: 08/31/22 11:08 Dose: 2.5 each Documented By: ETTA Dextrose (Dextrose 50 % 25 Gm/50 Ml Syringe) 25 gm IVPUSH Q15M PRN; Protocol PRN Reason: per Hypoglycemia Standing Ord. Docusate Sodium (Docusate Sodium 100 Mg Capsule) 200 mg PO BEDTIME [facility] Last Admin: 08/31/22 21:28 Dose: Not Given Documented By: PETER Non-Admin Reason: Patient Refused Enoxaparin Sodium (Enoxaparin Sodium 100 Mg/Ml Syringe) 100 mg 1 mg/kg (100 mg) SUBCUT Q12H [facility] Last Admin: 09/01/22 03:07 Dose: 100 mg Documented By: PETER Gabapentin (Gabapentin 400 Mg Capsule) 400 mg PO QID [facility] Last Admin: 09/01/22 08:21 Dose: 400 mg Documented By: JAMES Glucose (Glucose Gel 15 Gm Gel..Gram.) 15 gm PO Q15M PRN; Protocol PRN Reason: per Hypoglycemia Standing Ord. Hydroxyzine HCl (Hydroxyzine Hcl 25 Mg Tablet) 25 mg PO Q8H PRN PRN Reason: Anxiety Azithromycin 500 mg/ Sodium (Chloride) 250 mls @ 125 mls/hr IV Q24H [facility] Last Infusion: 09/01/22 00:46 Dose: 0 mls/hr Documented By: PETER Ceftriaxone Sodium 1 gm/ (Sodium Chloride) 50 mls @ 100 mls/hr IV Q24H [facility] Last Infusion: 08/31/22 22:21 Dose: 0 mls/hr Documented By: PETER Insulin Glargine (Insulin Glargine,Hum.Rec.Anlog 100 Unit/Ml 10 Ml Vial) 40 unit SUBCUT BEDTIME [facility] Last Admin: 08/31/22 21:29 Dose: 40 unit Documented By: PETER Insulin Glargine (Insulin Glargine,Hum.Rec.Anlog 100 Unit/Ml 10 Ml Vial) 20 unit SUBCUT DAILY [facility] Last Admin: 09/01/22 08:23 Dose: 20 unit Documented By: JAMES Insulin Human Lispro (Insulin Lispro 100 Unit/Ml 3 Ml Vial) 0 unit SUBCUT QIDACHS [facility]; Protocol Last Admin: 09/01/22 08:22 Dose: 10 unit Documented By: JAMES Lisinopril (Lisinopril 5 Mg Tablet) 5 mg PO DAILY [facility]; Protocol Last Admin: 09/01/22 08:21 Dose: 5 mg Documented By: JAMES Lorazepam (Lorazepam 1 Mg Tablet) 1 mg PO BEDTIME PRN PRN Reason: anxiety/restlessness Last Admin: 08/31/22 21:30 Dose: 1 mg Documented By: PETER Melatonin (Melatonin 3 Mg Tablet) 6 mg PO BEDTIME PRN PRN Reason: Insomnia Last Admin: 08/31/22 21:30 Dose: 6 mg Documented By: PETER Metformin HCl (Metformin Hcl 500 Mg Tablet) 500 mg PO BIDWM [facility] Last Admin: 09/01/22 08:25 Dose: 500 mg Documented By: JAMES Methadone HCl (Methadone Hcl 20 Mg/2 Ml Oral.Conc) 120 mg PO DAILY [facility] Last Admin: 09/01/22 08:22 Dose: 120 mg Documented By: JAMES Nicotine (Nicotine 21 Mg Patch.Td24) 21 mg TRANSDERMA DAILY [facility] Last Admin: 09/01/22 08:22 Dose: 21 mg Documented By: JAMES Ondansetron HCl (Ondansetron Hcl 4 Mg/2 Ml Vial) 4 mg IVPUSH Q8H PRN PRN Reason: Nausea and Vomiting Pharmacy Consult (Consult Rx Perform Med Rec) 1 each MISCELLANE ONCE PRN PRN Reason: Consult order Polyethylene Glycol (Polyethylene Glycol 3350 17 Gm Powd.Pack) 17 gm PO DAILY [facility] Last Admin: 09/01/22 08:26 Dose: Not Given Documented By: JAMES Non-Admin Reason: Patient Refused Sodium Chloride (0.9 % Sodium Chloride Flush 3 Ml Syringe) 3 ml IVFLUSH QSHIFT [facility] Last Admin: 09/01/22 08:26 Dose: 3 ml Documented By: JAMES Labs 09/01/22 06:19 09/01/22 06:19 Labs: Laboratory Results - last 24 hr 08/31/22 08/31/22 08/31/22 12:53 13:50 16:33 MCV MCH MCHC RDW Plt Count MPV Immature Gran % (Auto) Neut % (Auto) Lymph % (Auto) [place] % (Auto) Eos % (Auto) Baso % (Auto) Lymph # (Auto) [place] # (Auto) Eos # (Auto) Baso # (Auto) Abs Immat Gran (auto) Absolute Neuts (auto) Absolute Nucleated RBC Nucleated RBC % (auto) Neutrophils % (Manual) Band Neutrophils % Lymphocytes % (Manual) Monocytes % (Manual) Eosinophils % (Manual) Metamyelocytes % Myelocytes % Abs Neuts (Manual) Lymphocytes # (Manual) Monocytes # (Manual) Eosinophils # (Manual) Metamyelocytes # Myelocytes # Platelet Estimate Plt Morphology Comment RBC Morphology Anion Gap 13 Estim Creat Clear Calc 126.7 Estimated GFR > 60 POC Glucose 251 H 229 H Fasting Glucose 246 H Calcium 8.4 Total Bilirubin < 0.2 AST 15 ALT 11 Alkaline Phosphatase 112 Total Protein 5.6 L Albumin 2.8 L 08/31/22 09/01/22 09/01/22 20:14 06:19 06:19 MCV 90.9 MCH 28.5 MCHC 31.4 RDW 14.1 Plt Count 274 MPV 10.0 Immature Gran % (Auto) Cancelled Neut % (Auto) Cancelled Lymph % (Auto) Cancelled [place] % (Auto) Cancelled Eos % (Auto) Cancelled Baso % (Auto) Cancelled Lymph # (Auto) Cancelled [place] # (Auto) Cancelled Eos # (Auto) Cancelled Baso # (Auto) Cancelled Abs Immat Gran (auto) Cancelled Absolute Neuts (auto) Cancelled Absolute Nucleated RBC 0.000 Nucleated RBC % (auto) 0.0 Neutrophils % (Manual) 60 Band Neutrophils % 7 H Lymphocytes % (Manual) 22 Monocytes % (Manual) 3 Eosinophils % (Manual) 4 Metamyelocytes % 2 Myelocytes % 2 Abs Neuts (Manual) 8.4 H Lymphocytes # (Manual) 2.8 Monocytes # (Manual) 0.4 Eosinophils # (Manual) 0.5 H Metamyelocytes # 0.3 Myelocytes # 0.3 Platelet Estimate NORMAL Plt Morphology Comment NORMAL RBC Morphology NORMAL Anion Gap 14 Estim Creat Clear Calc 117.2 Estimated GFR > 60 POC Glucose 179 H Fasting Glucose 255 H Calcium 8.8 Total Bilirubin < 0.2 AST 13 ALT 11 Alkaline Phosphatase 101 Total Protein 5.7 L Albumin 2.9 L 09/01/22 07:34 MCV MCH MCHC RDW Plt Count MPV Immature Gran % (Auto) Neut % (Auto) Lymph % (Auto) [place] % (Auto) Eos % (Auto) Baso % (Auto) Lymph # (Auto) [place] # (Auto) Eos # (Auto) Baso # (Auto) Abs Immat Gran (auto) Absolute Neuts (auto) Absolute Nucleated RBC Nucleated RBC % (auto) Neutrophils % (Manual) Band Neutrophils % Lymphocytes % (Manual) Monocytes % (Manual) Eosinophils % (Manual) Metamyelocytes % Myelocytes % Abs Neuts (Manual) Lymphocytes # (Manual) Monocytes # (Manual) Eosinophils # (Manual) Metamyelocytes # Myelocytes # Platelet Estimate Plt Morphology Comment RBC Morphology Anion Gap Estim Creat Clear Calc Estimated GFR POC Glucose 233 H Fasting Glucose Calcium Total Bilirubin AST ALT Alkaline Phosphatase Total Protein Albumin Assessment and Plan (1) Bilateral pulmonary embolism: Status: Acute (2) Pneumonia: Status: Acute (3) Opioid use disorder: Status: Acute Plan 52-year-old female with pertinent history of PE on Eliquis, opioid use disorder on methadone, essential hypertension, COPD, insulin-dependent diabetes mellitus who presents to emergency department evaluation of dyspnea. CTA consistent with submassive bilateral pulmonary emboli involving left and right main pulmonary artery 1.Acute hypoxemic respiratory failure due to Acute bilateral sub massive pulmonary embolism -Lovenox 1mg/kg... Change to Eliquis today -transition to oral anticoagulation as per Hematology... Lifelong. No need for thrombophilia workup 2.Right-sided community-acquired pneumonia -sepsis resolved -continue ceftriaxone/azithromycin(7), stopped Abx today 09/01. 3.Insulin-dependent diabetes mellitus -Lantus 36 units HS; adjust as indicated -Lantus 20 mg q.a.m. -continue metformin 500 b.i.d 4.NSTEMI -Lovenox 1 milligram/kilogram -echo without evidence of right ventricular strain -cardiology following 5.Substance use disorder -continue methadone as ordered Lovenox Full code will require continued inpatient hospitalization for IV antibiotics, treatment for submassive PE and high-flow oxygen. Time Spent With Patient Time: Total time managing care of this patient today ____ minutes. Quality Stroke Does the patient have a stroke diagnosis?: No VTE Prior VTE?: No VTE Risk Level:: Medical - moderate - high VTE Device Contraindication: Treatment Not Indicated VTE Drug Contraindication: N/A - Med Ordered
[2022-09-01 11:23] LABS: Glucose, Whole Blood 156 mg/dL (60-115)
[2022-09-01 12:00] VITALS: BP 140/67; PULSE 70; RESP 18; TEMP 36.6; O2SAT 95
[2022-09-01 15:32] VITALS: BP 145/94; PULSE 73; RESP 18; TEMP 36.6; O2SAT 96
[2022-09-01 16:45] LABS: Glucose, Whole Blood 147 mg/dL (60-115)
[2022-09-01] MEDS: Acetaminophen 325 MG TABLET 650 MG PO (17:15)
[2022-09-01 17:59] VITALS: PULSE 120; PULSE 130; O2SAT 83; O2SAT 89
[2022-09-01 20:00] VITALS: BP 137/66; PULSE 66; RESP 17; TEMP 36.8; O2SAT 98
[2022-09-01 20:49] LABS: Glucose, Whole Blood 116 mg/dL (60-115)
[2022-09-01] MEDS: Apixaban 5 MG TABLET 10 MG PO (21:29)
[2022-09-01] MEDS: Melatonin 3 MG TABLET 6 MG PO (21:30)
[2022-09-01] MEDS: LORazepam 1 MG TABLET PO (21:30)
[2022-09-01] MEDS: Insulin Glargine,Hum.rec.anlog 100 UNIT/ML 10 ML VIAL 40 UNIT SUBCUT (21:30)
[2022-09-01] MEDS: cefTRIAXone sodium 1 GM in 0.9 % Sodium Chloride 50 ML IV (21:32)
[2022-09-01] MEDS: Azithromycin 500 MG in 0.9 % Sodium Chloride 250 ML 125 MG IV (22:08)
[2022-09-02] VITALS (7 sets, daily range): BP systolic 120–147; BP diastolic 57–73; PULSE 56–82; RESP 16–19; TEMP 36.1–36.8; O2SAT 95–100
[2022-09-02 07:30] LABS: Glucose, Whole Blood 64 mg/dL (60-115)
[2022-09-02 08:03] LABS: Glucose, Whole Blood 77 mg/dL (60-115)
[2022-09-02 09:35] LABS: Glucose, Whole Blood 163 mg/dL (60-115)
[2022-09-02] MEDS: Gabapentin 400 MG CAPSULE PO ×4 (09:54→21:13)
[2022-09-02] MEDS: Apixaban 5 MG TABLET 10 MG PO ×2 (09:54→21:14)
[2022-09-02] MEDS: Nicotine 21 MG PATCH.TD24 TRANSDERMA (09:55)
[2022-09-02] MEDS: methADONE HCl 20 MG/2 ML ORAL.CONC 120 MG PO (09:55)
[2022-09-02] MEDS: lisinopriL 5 MG TABLET PO (09:55)
[2022-09-02] MEDS: 0.9 % Sodium Chloride Flush 3 ML SYRINGE IVFLUSH ×3 (09:56→21:15)
[2022-09-02 11:13] LABS: Glucose, Whole Blood 157 mg/dL (60-115)
[2022-09-02] MEDS: Insulin Lispro 100 UNIT/ML 3 ML VIAL SUBCUT ×2 (11:25→21:14)
--- NOTE | 2022-09-02 15:29 | P.PNIM_ITS ---
Subjective Subjective Date of Service: 09/02/22 Interval History: seen and examined this morning follow up for PE denies sob at rest, does have some with exertion but states that she recovers quickly no chest pain Review of Systems Review of Systems: Yes all other systems are reviewed and are negative Constitutional Constitutional: Denies chills and Denies fever(s) Cardiovascular Cardiovascular: Denies chest pain, Denies palpitations, Denies dyspnea and Reports dyspnea on exertion Respiratory Respiratory: Denies cough, Denies dyspnea and Reports dyspnea on exertion Gastrointestinal Gastrointestinal: Denies abdominal pain Endocrine Endocrine: Denies palpitations Physical Exam Vital Signs: Vital Signs: Last Vital Signs Temp 97.0 F 09/02/22 15:22 Pulse 67 09/02/22 15:22 Resp 16 09/02/22 15:22 BP 120/57 L 09/02/22 15:22 Pulse Ox 98 09/02/22 15:22 O2 Del Method 09/02/22 15:22 O2 Flow Rate 3 09/02/22 15:22 FiO2 90 08/31/22 07:24 BMI result Body Mass Index 35.6 Const: General: cooperative, comfortable, alert and awake Nutritional Appearance: average body habitus Orientation/consciousness: patient oriented x3 Resp: Effort & Inspection: normal respiratory effort and able to speak in complete sentences Auscultation: clear to auscultation bilaterally Cardio: Rate: regular rate Heart sounds: S1 normal heart sound present and S2 normal heart sound present GI: Inspection: No distended Palpation (GI): Soft to palpation and nontender Neuro: General: patient oriented x3 Extrem: Other: s/p r transmetatarsal amputation General: Yes no pedal edema Objective Data Active Medications Acetaminophen (Acetaminophen 325 Mg Tablet) 650 mg PO Q6H PRN PRN Reason: Pain, Mild (Pain Scale 1-3) Last Admin: 09/01/22 17:15 Dose: 650 mg Documented By: JAMES Apixaban (Apixaban 5 Mg Tablet) 10 mg PO BID D[facility] Stop: 09/08/22 09:01 Last Admin: 09/02/22 09:54 Dose: 10 mg Documented By: VAZQUEZ Dextrose (Dextrose 50 % 25 Gm/50 Ml Syringe) 25 gm IVPUSH Q15M PRN; Protocol PRN Reason: per Hypoglycemia Standing Ord. Docusate Sodium (Docusate Sodium 100 Mg Capsule) 200 mg PO BEDTIME [facility] Last Admin: 09/01/22 21:31 Dose: Not Given Documented By: FRANCISCA Non-Admin Reason: Patient Refused Gabapentin (Gabapentin 400 Mg Capsule) 400 mg PO QID [facility] Last Admin: 09/02/22 13:32 Dose: 400 mg Documented By: VAZQUEZ Glucose (Glucose Gel 15 Gm Gel..Gram.) 15 gm PO Q15M PRN; Protocol PRN Reason: per Hypoglycemia Standing Ord. Hydroxyzine HCl (Hydroxyzine Hcl 25 Mg Tablet) 25 mg PO Q8H PRN PRN Reason: Anxiety Insulin Glargine (Insulin Glargine,Hum.Rec.Anlog 100 Unit/Ml 10 Ml Vial) 40 unit SUBCUT BEDTIME [facility] Last Admin: 09/01/22 21:30 Dose: 40 unit Documented By: FRANCISCA Insulin Glargine (Insulin Glargine,Hum.Rec.Anlog 100 Unit/Ml 10 Ml Vial) 20 unit SUBCUT DAILY [facility] Last Admin: 09/02/22 07:45 Dose: Not Given Documented By: VAZQUEZ Non-Admin Reason: pt hypoglycemic Insulin Human Lispro (Insulin Lispro 100 Unit/Ml 3 Ml Vial) 0 unit SUBCUT QIDACHS [facility]; Protocol Last Admin: 09/02/22 11:25 Dose: 6 unit Documented By: VAZQUEZ Lisinopril (Lisinopril 5 Mg Tablet) 5 mg PO DAILY [facility]; Protocol Last Admin: 09/02/22 09:55 Dose: 5 mg Documented By: VAZQUEZ Lorazepam (Lorazepam 1 Mg Tablet) 1 mg PO BEDTIME PRN PRN Reason: anxiety/restlessness Last Admin: 09/01/22 21:30 Dose: 1 mg Documented By: FRANCISCA Melatonin (Melatonin 3 Mg Tablet) 6 mg PO BEDTIME PRN PRN Reason: Insomnia Last Admin: 09/01/22 21:30 Dose: 6 mg Documented By: FRANCISCA Metformin HCl (Metformin Hcl 500 Mg Tablet) 500 mg PO BIDWM [facility] Last Admin: 09/02/22 07:44 Dose: Not Given Documented By: VAZQUEZ Non-Admin Reason: pt hypoglycemic Methadone HCl (Methadone Hcl 20 Mg/2 Ml Oral.Conc) 120 mg PO DAILY [facility] Last Admin: 09/02/22 09:55 Dose: 120 mg Documented By: VAZQUEZ Nicotine (Nicotine 21 Mg Patch.Td24) 21 mg TRANSDERMA DAILY [facility] Last Admin: 09/02/22 09:55 Dose: 21 mg Documented By: VAZQUEZ Ondansetron HCl (Ondansetron Hcl 4 Mg/2 Ml Vial) 4 mg IVPUSH Q8H PRN PRN Reason: Nausea and Vomiting Pharmacy Consult (Consult Rx Perform Med Rec) 1 each MISCELLANE ONCE PRN PRN Reason: Consult order Polyethylene Glycol (Polyethylene Glycol 3350 17 Gm Powd.Pack) 17 gm PO DAILY [facility] Last Admin: 09/02/22 10:00 Dose: Not Given Documented By: VAZQUEZ Non-Admin Reason: Patient Refused Sodium Chloride (0.9 % Sodium Chloride Flush 3 Ml Syringe) 3 ml IVFLUSH QSHIFT [facility] Last Admin: 09/02/22 09:56 Dose: 3 ml Documented By: VAZQUEZ Labs 09/01/22 06:19 09/01/22 06:19 Labs: Laboratory Results - last 24 hr 09/01/22 09/01/22 09/02/22 16:36 20:45 07:26 POC Glucose 147 H 116 H 64 09/02/22 09/02/22 09/02/22 07:56 09:31 11:09 POC Glucose 77 163 H 157 H Assessment and Plan (1) Bilateral pulmonary embolism: Status: Acute Plan 52-year-old female with pertinent history of PE on Eliquis, opioid use disorder on methadone, essential hypertension, COPD, insulin-dependent diabetes mellitus who presents to emergency department evaluation of dyspnea. CTA consistent with submassive bilateral pulmonary emboli involving left and right main pulmonary artery Acute hypoxemic respiratory failure due to Acute bilateral sub massive pulmonary embolism -s/p Lovenox 1mg/kg... Changed to Eliquis 09/01. plan for 10 mg bid x 1 week, then 5 mg bid -transition to oral anticoagulation as per Hematology... Lifelong. No need for thrombophilia workup home o2 eval attempted yesterday, saturating low 8os on 8L, not safe to d/c home at this time Right-sided community-acquired pneumonia -sepsis resolved -completed ceftriaxone/azithromycin(7), stopped Abx 09/01. Insulin-dependent diabetes mellitus am POC on lower side, will decrease nightime dose of lantus to 35U -Lantus 20 mg q.a.m. -continue metformin 500 b.i.d NSTEMI r/t PE s/p Lovenox 1 milligram/kilogram -echo without evidence of right ventricular strain -seen by cardiology Substance use disorder -continue methadone as ordered dvt ppx - eliquis Full code attending - dr. andrade PT eval - PT rec STR will require continued inpatient hospitalization for treatment for submassive PE and supplemental oxygen Time Spent With Patient Time: Total time managing care of this patient today ____ minutes. Quality Stroke Does the patient have a stroke diagnosis?: No VTE Prior VTE?: No VTE Risk Level:: Medical - moderate - high VTE Device Contraindication: Treatment Not Indicated VTE Drug Contraindication: N/A - Med Ordered
[2022-09-02 15:48] LABS: Glucose, Whole Blood 144 mg/dL (60-115)
[2022-09-02] MEDS: metFORMIN HCl 500 MG TABLET PO (16:28)
[2022-09-02 20:54] LABS: Glucose, Whole Blood 181 mg/dL (60-115)
[2022-09-02] MEDS: Acetaminophen 325 MG TABLET 650 MG PO (21:13)
[2022-09-02] MEDS: Insulin Glargine,Hum.rec.anlog 100 UNIT/ML 10 ML VIAL 35 UNIT SUBCUT (21:14)
[2022-09-02] MEDS: LORazepam 1 MG TABLET PO (21:18)
[2022-09-02] MEDS: Melatonin 3 MG TABLET 6 MG PO (21:18)
[2022-09-03 02:11] VITALS: BP 131/70; PULSE 61; RESP 18; TEMP 36.2; O2SAT 100
[2022-09-03 07:29] VITALS: BP 121/65; PULSE 59; RESP 16; TEMP 37; O2SAT 99
[2022-09-03 07:38] LABS: Glucose, Whole Blood 118 mg/dL (60-115)
[2022-09-03] MEDS: 0.9 % Sodium Chloride Flush 3 ML SYRINGE IVFLUSH ×3 (09:36→22:52)
[2022-09-03] MEDS: Apixaban 5 MG TABLET 10 MG PO ×2 (09:37→21:29)
[2022-09-03] MEDS: Gabapentin 400 MG CAPSULE PO ×4 (09:37→21:28)
[2022-09-03] MEDS: lisinopriL 5 MG TABLET PO (09:38)
[2022-09-03] MEDS: metFORMIN HCl 500 MG TABLET PO ×2 (09:38→16:54)
[2022-09-03] MEDS: Nicotine 21 MG PATCH.TD24 TRANSDERMA (09:39)
[2022-09-03] MEDS: methADONE HCl 20 MG/2 ML ORAL.CONC 120 MG PO (09:40)
[2022-09-03] MEDS: Insulin Glargine,Hum.rec.anlog 100 UNIT/ML 10 ML VIAL 20 UNIT SUBCUT (09:40)
[2022-09-03] MEDS: Acetaminophen 325 MG TABLET 650 MG PO ×2 (09:49→21:28)
[2022-09-03 10:59] LABS: Glucose, Whole Blood 176 mg/dL (60-115)
[2022-09-03 11:17] VITALS: BP 128/74; PULSE 54; RESP 16; TEMP 36.2; O2SAT 99
[2022-09-03] MEDS: Insulin Lispro 100 UNIT/ML 3 ML VIAL SUBCUT (11:36)
--- NOTE | 2022-09-03 14:14 | HO.PM.IMPN ---
Subjective Subjective Date of Service: 09/03/22 Interval History: seen and examined this morning follow up for PE feeling better today. no sob Review of Systems Review of Systems: Yes all other systems are reviewed and are negative Constitutional Constitutional: Denies chills and Denies fever(s) Cardiovascular Cardiovascular: Denies chest pain, Denies palpitations and Denies dyspnea Respiratory Respiratory: Denies cough and Denies dyspnea Gastrointestinal Gastrointestinal: Denies abdominal pain, Denies nausea and Denies vomiting Endocrine Endocrine: Denies palpitations Physical Exam Vital Signs: Vital Signs: Last Vital Signs Temp 97.2 F 09/03/22 11:17 Pulse 54 09/03/22 11:17 Resp 16 09/03/22 11:17 BP 128/74 09/03/22 11:17 Pulse Ox 99 09/03/22 11:17 O2 Del Method 09/03/22 11:17 O2 Flow Rate 3 09/03/22 11:17 FiO2 90 08/31/22 07:24 BMI result Body Mass Index 35.6 Const: General: cooperative, comfortable, alert and awake Nutritional Appearance: average body habitus Orientation/consciousness: patient oriented x3 Resp: Effort & Inspection: normal respiratory effort and able to speak in complete sentences Auscultation: clear to auscultation bilaterally Cardio: Rate: regular rate Heart sounds: S1 normal heart sound present and S2 normal heart sound present GI: Inspection: No distended Palpation (GI): Soft to palpation and nontender Neuro: General: patient oriented x3 Extrem: Other: s/p r transmetatarsal amputation General: Yes no pedal edema Objective Data Active Medications Acetaminophen (Acetaminophen 325 Mg Tablet) 650 mg PO Q6H PRN PRN Reason: Pain, Mild (Pain Scale 1-3) Last Admin: 09/03/22 09:49 Dose: 650 mg Documented By: GIO Apixaban (Apixaban 5 Mg Tablet) 10 mg PO BID [facility] Stop: 09/08/22 09:01 Last Admin: 09/03/22 09:37 Dose: 10 mg Documented By: GIO Dextrose (Dextrose 50 % 25 Gm/50 Ml Syringe) 25 gm IVPUSH Q15M PRN; Protocol PRN Reason: per Hypoglycemia Standing Ord. Docusate Sodium (Docusate Sodium 100 Mg Capsule) 200 mg PO BEDTIME [facility] Last Admin: 09/02/22 21:15 Dose: Not Given Documented By: HERNI Non-Admin Reason: Patient Refused Gabapentin (Gabapentin 400 Mg Capsule) 400 mg PO QID [facility] Last Admin: 09/03/22 13:32 Dose: 400 mg Documented By: GIO Glucose (Glucose Gel 15 Gm Gel..Gram.) 15 gm PO Q15M PRN; Protocol PRN Reason: per Hypoglycemia Standing Ord. Hydroxyzine HCl (Hydroxyzine Hcl 25 Mg Tablet) 25 mg PO Q8H PRN PRN Reason: Anxiety Insulin Glargine (Insulin Glargine,Hum.Rec.Anlog 100 Unit/Ml 10 Ml Vial) 20 unit SUBCUT DAILY [facility] Last Admin: 09/03/22 09:40 Dose: 20 unit Documented By: GIO Insulin Glargine (Insulin Glargine,Hum.Rec.Anlog 100 Unit/Ml 10 Ml Vial) 35 unit SUBCUT BEDTIME [facility] Last Admin: 09/02/22 21:14 Dose: 35 unit Documented By: HENRI Insulin Human Lispro (Insulin Lispro 100 Unit/Ml 3 Ml Vial) 0 unit SUBCUT QIDACHS [facility]; Protocol Last Admin: 09/03/22 11:36 Dose: 6 unit Documented By: GIO Lisinopril (Lisinopril 5 Mg Tablet) 5 mg PO DAILY [facility]; Protocol Last Admin: 09/03/22 09:38 Dose: 5 mg Documented By: GIO Lorazepam (Lorazepam 1 Mg Tablet) 1 mg PO BEDTIME PRN PRN Reason: anxiety/restlessness Last Admin: 09/02/22 21:18 Dose: 1 mg Documented By: HENRI Melatonin (Melatonin 3 Mg Tablet) 6 mg PO BEDTIME PRN PRN Reason: Insomnia Last Admin: 09/02/22 21:18 Dose: 6 mg Documented By: HENRI Metformin HCl (Metformin Hcl 500 Mg Tablet) 500 mg PO BIDWM [facility] Last Admin: 09/03/22 09:38 Dose: 500 mg Documented By: GIO Methadone HCl (Methadone Hcl 20 Mg/2 Ml Oral.Conc) 120 mg PO DAILY [facility] Last Admin: 09/03/22 09:40 Dose: 120 mg Documented By: GIO Nicotine (Nicotine 21 Mg Patch.Td24) 21 mg TRANSDERMA DAILY [facility] Last Admin: 09/03/22 09:39 Dose: 21 mg Documented By: GIO Ondansetron HCl (Ondansetron Hcl 4 Mg/2 Ml Vial) 4 mg IVPUSH Q8H PRN PRN Reason: Nausea and Vomiting Pharmacy Consult (Consult Rx Perform Med Rec) 1 each MISCELLANE ONCE PRN PRN Reason: Consult order Polyethylene Glycol (Polyethylene Glycol 3350 17 Gm Powd.Pack) 17 gm PO DAILY [facility] Last Admin: 09/03/22 09:41 Dose: Not Given Documented By: GIO Non-Admin Reason: Patient Refused Sodium Chloride (0.9 % Sodium Chloride Flush 3 Ml Syringe) 3 ml IVFLUSH QSHIFT [facility] Last Admin: 09/03/22 09:36 Dose: 3 ml Documented By: GIO Labs 09/01/22 06:19 09/01/22 06:19 Labs: Laboratory Results - last 24 hr 09/02/22 09/02/22 09/03/22 15:44 20:44 07:27 POC Glucose 144 H 181 H 118 H 09/03/22 10:45 POC Glucose 176 H Assessment and Plan (1) Pulmonary embolism: Status: Acute Plan 52-year-old female with pertinent history of PE on Eliquis, opioid use disorder on methadone, essential hypertension, COPD, insulin-dependent diabetes mellitus who presents to emergency department evaluation of dyspnea. CTA consistent with submassive bilateral pulmonary emboli involving left and right main pulmonary artery Acute hypoxemic respiratory failure due to Acute bilateral sub massive pulmonary embolism -s/p Lovenox 1mg/kg... Changed to Eliquis 09/01. plan for 10 mg bid x 1 week, then 5 mg bid -transition to oral anticoagulation as per Hematology... Lifelong. No need for thrombophilia workup home o2 eval attempted yesterday, saturating low 8os on 8L, not safe to d/c home at this time - will repeat home o2 eval today Right-sided community-acquired pneumonia -sepsis resolved -completed ceftriaxone/azithromycin(7), stopped Abx 09/01. Insulin-dependent diabetes mellitus am POC on lower side, will decrease nightime dose of lantus to 35U -Lantus 20 mg q.a.m. -continue metformin 500 b.i.d NSTEMI r/t PE s/p Lovenox 1 milligram/kilogram -echo without evidence of right ventricular strain -seen by cardiology Substance use disorder -continue methadone as ordered dvt ppx - eliquis Full code attending - dr. pedro PT eval - PT rec home with PT will require continued inpatient hospitalization for treatment for submassive PE and supplemental oxygen Time Spent With Patient Time: Total time managing care of this patient today ____ minutes. Quality Stroke Does the patient have a stroke diagnosis?: No VTE Prior VTE?: No VTE Risk Level:: Medical - moderate - high VTE Device Contraindication: Treatment Not Indicated VTE Drug Contraindication: N/A - Med Ordered
[2022-09-03 15:30] LABS: Glucose, Whole Blood 139 mg/dL (60-115)
[2022-09-03 15:41] VITALS: BP 122/60; PULSE 59; RESP 20; TEMP 36.6; O2SAT 98
--- NOTE | 2022-09-03 16:30 | P.DS_ITS ---
DS: Providers Provider Date of Service: 09/03/22 Date of admission: 08/25/22 01:52 Date of discharge: 09/03/22 Primary care physician: Nikhil Potts MD Consults: 08/25/22 02:04 Addiction Medicine Routine Consulting Provider: Addiction Covering Reason for consultation: opioid use disorder Consult to Care Team Routine Comment: Reason for consultation: opioid use disorder 08/25/22 11:51 Consult to Psychiatry Routine Consulting Provider: Lisseth Orozco Reason for consultation: anxiety disorder Has provider been notified: No 08/25/22 12:00 Consult to Hematology / Oncology Routine Consulting Provider: Kay Ortiz Reason for consultation: recurrent PE Has provider been notified: No 08/26/22 09:30 Consult to Pulmonology Routine Consulting Provider: Shubham Sanchez Reason for consultation: pulmonary embolism hypoxia Has provider been notified: No 08/27/22 07:32 Consult to Cardiology Routine Consulting Provider: Chetser Moctezuma Reason for consultation: right heart strain/PE Has provider been notified: No Attending physician on discharge: Stone Grimm Discharging clinician: Shaina Burt DS: Diagnosis Discharge Diagnosis (1) Pulmonary embolism: Status: Acute DS: Summary Hospital Course Hospital Course: From H&P on day of admission This is a 52-year-old female with pertinent history of PE on Eliquis, opioid use disorder on methadone, essential hypertension, COPD, insulin-dependent diabetes mellitus who presents to emergency department evaluation of dyspnea.? Patient states she has been having dyspnea for approximately 3-4 days which worsened on the day of presentation.? Also has pleuritic chest discomfort.? She denies fever, chills, endorses productive cough.? States she was on Eliquis previously for PE but stopped taking 1 month ago as instructed by her PCP as she had completed 6 months of anticoagulation.? Patient states that she stopped taking her insulin appr oximately 3 months ago as her blood sugars were controlled.? She was trying to control her diabetes with diet.? Over the last 1 week Glucometer readings have been high.? She states she last used drugs in June but admits to smoking weed.? Does not know if weed was laced with any street drugs.? She denies palpitations, abdominal pain, changes in urinary or bowel habits In the emergency department, patient was found to be hypoxemic and CTA was with bilateral PE Acute hypoxemic respiratory failure secondary to Acute bilateral sub massive pulmonary embolism. Also found to have DVT of RLE. At the time of admission, the ED provider discussed possible need for tPA with the cigarette and filter chief inspector/pulmonolgist fishery division chief who did not recommend tpa. She was initially started on anticioagulation with therapeutic Lovenox. She was seen in consultation by hematology who recommended lifelong anticoagulation with no need for thrombophilia workup. She was transitioned to Eliquis 09/01 with plan for 10 mg bid x 1 week, then 5 mg bid after that. Initially she required high flow oxygen, this was able to be weaned down to 3L at rest. She had home oxygen evaluation and qualifies for 1L of oxygen at rest and 4L with ambulation. Sepsis secondary to Right-sided community-acquired pneumonia. sepsis resolved. completed course of ceftriaxone/azithromycin. Insulin-dependent diabetes mellitus. Her blood sugar was initially in the high 400s, the patient stated she had stopped taking insulin a few months prior to hospitalization. Hba1c was checked and was 13.5. She had reportedly recently been prescribed Lantus 35U at bedtime, but had not started taking yet. She was continued on lantus to 35U at bedtime. Her blood sugar continued to be elevated and Lantus 20 mg q.a.m.?and metformin 500 bid were added for adequate blood sugar control. Recommended to monitor blood sugars closely and keep log for PCP review. NSTEMI? secondary to demand from PE. Troponin peaked at 296. s/p treatment with Lovenox. echo with moderately increased RV cavity size, normal right ventricular systolic function. She was seen in consultation by cardiology For blood pressure patient was started on lisinopril, norvasc was discontinued. Blood pressure has been well controlled. ?? ? Substance use disorder. continued on home dose of methadone. Initial imaging showed indeterminate hypodensity in the right hepatic lobe, recommend outpatient abdominal MRI for further characterization She will be discharged home with home PT/VNA Time Spent with Patient Time attestation: Total time managing care of this patient today ____ minutes. Discharge coordination time: Greater than 30 minutes Quality: Safe Use of Opioids Does Pt have an Active Cancer Diagnosis on the Problem List?: No Quality: Stroke Does the patient have a stroke diagnosis?: No Physical Exam Vital Signs: Vital Signs: Last Vital Signs Temp 98 F 09/03/22 15:41 Pulse 59 09/03/22 15:41 Resp 20 09/03/22 15:41 BP 122/60 09/03/22 15:41 Pulse Ox 98 09/03/22 15:41 O2 Del Method 09/03/22 15:41 O2 Flow Rate 3 09/03/22 15:41 FiO2 90 08/31/22 07:24 BMI result Body Mass Index 35.6 Const: General: cooperative, comfortable, alert and awake Nutritional Appearance: average body habitus Orientation/consciousness: patient oriented x3 Resp: Effort & Inspection: normal respiratory effort and able to speak in complete sentences Auscultation: clear to auscultation bilaterally Cardio: Rate: regular rate Heart sounds: S1 normal heart sound present and S2 normal heart sound present GI: Inspection: No distended Palpation (GI): Soft to palpation and nontender Neuro: General: patient oriented x3 Extrem: Other: s/p r transmetatarsal amputation General: Yes no pedal edema DS: Data Data Completed and Pending Completed studies during hospitalization [Text1]: Procedures Detachment at Right 1st Toe, Mid, Open Approach (09/21/21) Detachment at Right 2nd Toe, Mid, Open Approach (09/21/21) Excision of Right Foot Subcutaneous Tissue and Fascia, Open Approach (09/21/21) Insertion of Infusion Device into Left External Jugular Vein, Percutaneous Approach (09/21/21) Insertion of Infusion Device into Superior Vena Cava, Percutaneous Approach (09/21/21) Labs on day of discharge: Laboratory Results - last 24 hr 09/02/22 09/03/22 09/03/22 20:44 07:27 10:45 POC Glucose 181 H 118 H 176 H 09/03/22 15:07 POC Glucose 139 H Discharge Plan Discharge Anticipated Discharge Date/Time: 09/04/22 10:31 Patient Disposition: Home Health Service Discharge Diagnosis: bilateral pulmonary embolism right leg EVT NSTEMI respiratory failure Uncontrolled diabetes Referrals: [facility] [Outside] - 1 Week Nikhil Gagnon MD [Primary Care Provider] - 1 Week Discharge Medications: New metformin 500 mg Tablet 500 mg PO BIDWM 30 Days Qty: 60 0RF insulin glargine [Lantus U-100 Insulin] 100 unit/mL Solution 20 unit subcut DAILY Qty: 10 0RF insulin glargine [Lantus U-100 Insulin] 100 unit/mL Solution 35 unit subcut BEDTIME Qty: 10 0RF Eliquis 5 mg tablet 5 mg PO BID 30 Days Qty: 60 0RF Eliquis 5 mg tablet 10 mg PO BID 4 Days Qty: 16 0RF Continued gabapentin 400 mg capsule 400 mg PO QID lisinopril 5 mg Tablet 5 mg PO DAILY Qty: 30 0RF Protocol: Hold for SBP< HOLD for SBP < : 90 acetaminophen 500 mg tablet 2 caplet PO Q6H PRN (Reason: mild pain) methadone 10 mg/mL concentrate 120 mg PO DAILY Discontinued amlodipine 10 mg tablet 10 mg PO BEDTIME Protocol: Hold for SBP< HOLD for SBP < : 90 No Action (DME) walker Misc See Rx Instructions .Route Qty: 1 0RF Rx Instructions: As directed Discharge Orders: Discharge Order (Routine); Ordered 09/04/22 Ordered By: Shaina Burt Activity on Discharge: As tolerated Stand Alone Forms: Patient Portal Discharge page Care Plan Goals: prevention of future blood clots Health Concerns: bilateral pulmonary embolism right leg DVT uncontrolled diabetes respiratory failure Plan of Treatment: Take eliquis 10 mg twice daily for 4 more days, then start taking Eliquis 5 mg twice daily after that. you will need lifelong anticoagulation. do not stop taking blood thinner without discussion with medical professional. monitor for signs of bleeding, call PCP or return to the hospital if you have any bleeding. Your blood sugars were high on arrival to the hospital, you have been started on Lantus 35U at bedtime and 20U in the morning. Check your blood sugar before meals and at bedtime and keep a log of your blood sugars You were started on Metformin which should be taken twice daily You qualify to use 1L of oxygen at rest and 4L with ambulation. use as prescribed. Do not smoke while using supplemental oxygen. Call PCP or return to the emergency room if you experience worsening shortness of breath or difficulty breathing. call to schedule follow up appointment with PCP you will be discharged home with VNA and PT services Assessment: see discharge summary Patient Instructions: Diabetes and Nutrition (GEN)
[2022-09-03 20:00] VITALS: BP 144/69; PULSE 59; RESP 18; TEMP 36.9; O2SAT 100
[2022-09-03 20:55] LABS: Glucose, Whole Blood 99 mg/dL (60-115)
[2022-09-03] MEDS: Insulin Glargine,Hum.rec.anlog 100 UNIT/ML 10 ML VIAL 35 UNIT SUBCUT (21:30)
[2022-09-03] MEDS: Melatonin 3 MG TABLET 6 MG PO (22:51)
[2022-09-03] MEDS: LORazepam 1 MG TABLET PO (22:51)
[2022-09-04] VITALS: PULSE 60; O2SAT 99
[2022-09-04 04:00] VITALS: BP 139/66; PULSE 74; RESP 18; TEMP 36.8; O2SAT 96
[2022-09-04 04:26] LABS: Glucose, Whole Blood 156 mg/dL (60-115)
[2022-09-04 07:31] LABS: Glucose, Whole Blood 190 mg/dL (60-115)
[2022-09-04 07:34] VITALS: BP 135/67; PULSE 62; RESP 16; TEMP 36.8; O2SAT 97
[2022-09-04] MEDS: Gabapentin 400 MG CAPSULE PO ×2 (08:09→12:44)
[2022-09-04] MEDS: methADONE HCl 20 MG/2 ML ORAL.CONC 120 MG PO (08:09)
[2022-09-04] MEDS: lisinopriL 5 MG TABLET PO (08:09)
[2022-09-04] MEDS: Apixaban 5 MG TABLET 10 MG PO (08:10)
[2022-09-04] MEDS: Nicotine 21 MG PATCH.TD24 TRANSDERMA (08:10)
[2022-09-04] MEDS: 0.9 % Sodium Chloride Flush 3 ML SYRINGE IVFLUSH (08:10)
[2022-09-04] MEDS: metFORMIN HCl 500 MG TABLET PO (08:10)
[2022-09-04] MEDS: Insulin Lispro 100 UNIT/ML 3 ML VIAL SUBCUT (08:11)
[2022-09-04] MEDS: Insulin Glargine,Hum.rec.anlog 100 UNIT/ML 10 ML VIAL 20 UNIT SUBCUT (08:12)
[2022-09-04 10:09] VITALS: PULSE 75; PULSE 85; PULSE 88; O2SAT 87; O2SAT 90; O2SAT 91
--- NOTE | 2022-09-04 10:49 | MHC.CM.PN ---
Per PA, Patient will be medically cleared for dc to home today with new VNA ([facility] has expressed availability in the recent past and have been made aware of today's dc). Patient will be going home with new O2 and per PA's request, CM has provided Patient with the 30 day free trial coupon for Eliquis. Patient is aware of and in agreement with the dc plan.
--- NOTE | 2022-09-04 10:59 | W.MHC.F2F ---
Service Date Service Date: 09/04/22 Encounter Date of encounter: 09/04/22 Reasons for Services Signs and symptoms assessed: Needs mcfp for assistance in management of new supplemental oxygen and cardiopulmonary evaluation, diabetes education and blood sugar monitoring Reason for mcfp: diabetic teaching and monitoring of unstable blood sugar Reason for physical therapy: home safety and mobility and therapeutic exercises Overseeing Care: Nikhil Potts Homebound: Leaving the home is medically contraindicated at this time without the asist of a device and/or another person due th the listed conditions above and below. Reason homebound: poor balance / fall risk and weakness related to hospital stay Certification: Based on the above findings, I certify that this patient is confined to the home and needs intermittent mcfp care, physical therapy and/or speech therapy, or continues to need occupational therapy. The patient is under my care, and I have initiated the establishment of the plan of care. The patient will be followed by a physician who will periodically review the plan of care. Time Spent With Patient Time: Total time managing care of this patient today ____ minutes.
[2022-09-04 11:05] LABS: Glucose, Whole Blood 146 mg/dL (60-115)
[2022-09-04 11:17] VITALS: BP 136/73; PULSE 68; RESP 20; TEMP 36.8; O2SAT 96
== END 2022-09-04 15:30 | disposition home health service (06) | DRG 720 ==
LOC: HO.ED 23:51 → HO.EDOVER 08-25 01:57 → HO.IMC 08-25 02:20
PROVIDERS: Hospitalist; Internal Medicine; Admitting Provider Student in an Organized Health Care Education/Training Program; Emergency Provider Emergency Medicine; PCP Internal Medicine; Visit Provider Physician Assistant Medical
DX: A41.9 Sepsis, unspecified organism (principal); I26.99 Other pulmonary embolism without acute cor pulmonale; J96.01 Acute respiratory failure with hypoxia; I82.412 Acute embolism and thrombosis of left femoral vein; I21.4 Non-ST elevation (NSTEMI) myocardial infarction; J18.9 Pneumonia, unspecified organism; E87.21 Acute metabolic acidosis; J44.0 Chronic obstructive pulmonary disease with (acute) lower respiratory infection; F17.210 Nicotine dependence, cigarettes, uncomplicated; E87.6 Hypokalemia; E11.65 Type 2 diabetes mellitus with hyperglycemia; E66.9 Obesity, unspecified; Z68.35 Body mass index [BMI] 35.0-35.9, adult; Z20.822 Contact with and (suspected) exposure to COVID-19; I25.2 Old myocardial infarction; Z91.14 Patient's other noncompliance with medication regimen; Z71.6 Tobacco abuse counseling; Z56.0 Unemployment, unspecified; Z88.8 Allergy status to other drugs, medicaments and biological substances; Z79.4 Long term (current) use of insulin; Z79.899 Other long term (current) drug therapy
CPT/HCPCS: 36415; 36600; 71045; 71275; 80048; 80053; 80061; 80076; 80307; 81001; 82803; 82947; 83036; 83605; 83721; 83735; 83880; 84484; 85007; 85025; 85027; 85379; 85610; 85730; 87040; 87502; 87635; 93005; 93308; 93970; 94640; 97162; 99284; J0456; J0696; J1643; J1650; J2060; Q9957; Q9967

== ENCOUNTER → 2022-11-03 11:13 | Outpatient (REF) | payer MEDICAID, SELFPAY ==
--- NOTE | 2022-11-03 12:16 | ECG_ITS ---
Test Reason : HX PROLONGED QT Blood Pressure : / mmHG Vent. Rate : 071 BPM Atrial Rate : 071 BPM P-R Int : 142 ms QRS Dur : 088 ms QT Int : 418 ms P-R-T Axes : 064 -02 079 degrees QTc Int : 454 ms Normal sinus rhythm Nonspecific ST and T wave abnormality Abnormal ECG When compared with ECG of 24-AUG-2022 23:46, Vent. rate has decreased BY 44 BPM QRS duration has decreased Minimal criteria for Inferior infarct are no longer Present Referred By: Mane Granados Electronically Signed By:FELIPA LUNDBERG
== END ==
LOC: HO.CARD 11:13
PROVIDERS: Absent Provider Emergency Medicine; PCP Internal Medicine; Visit Provider Hospitalist
DX: I26.99 Other pulmonary embolism without acute cor pulmonale (principal); J18.9 Pneumonia, unspecified organism; J96.01 Acute respiratory failure with hypoxia; R91.8 Other nonspecific abnormal finding of lung field; Z79.899 Other long term (current) drug therapy
CPT/HCPCS: 93005; 94618; 99212

== ENCOUNTER 2022-11-28 12:16 | Inpatient (IN) | payer MEDICAID, SELFPAY ==
--- NOTE | ~2022-11-28 | US_ITS ---
EXAMINATION: US LOWER EXTREMITY DUPLEX, BILATERAL CLINICAL INFORMATION: Cold to touch at distal aspect TECHNIQUE: Real-time ultrasound and Doppler techniques (integrating B-mode 2-D vascular images, Doppler spectral analysis and color flow Doppler imaging) were utilized to interrogate the lower extremities. COMPARISON: Right lower extremity arterial duplex 01/27/2020 FINDINGS: RIGHT LEG: Common femoral artery: 221 cm/s, Triphasic Profunda femoris artery: 87 cm/s, biphasic Superficial femoral artery (proximal): 131 cm/s, Triphasic Superficial femoral artery (mid): 149 cm/s, Triphasic Superficial femoral artery (distal): 100 cm/s, Triphasic Popliteal artery: 94 cm/s, Triphasic Posterior tibial artery: 27 cm/s, Monophasic Peroneal artery: 45 cm/s, Monophasic Incidentally noted is a lymph node in the right groin measuring 2.6 cm with preserved fatty hilum. US/US arterial duplex LE RT IMPRESSION: There is no evidence of any hemodynamically significant lower extremity arterial disease by duplex Doppler criteria at rest. Mild atherosclerotic disease of the tibial arteries.
--- NOTE | ~2022-11-28 | CT_ITS ---
EXAMINATION: CT ANGIOGRAM OF THE CHEST WITH AND WITHOUT CONTRAST (CT PULMONARY ANGIOGRAM FOR PE) CLINICAL INFORMATION: Reason for Exam PE, chest pain COMPARISON: None available. TECHNIQUE: IV access could not be obtained. AP and lateral topograms and single premonitoring axial image was obtained. The cardiac silhouette is enlarged. There are loops of bowel in the right cardiophrenic angle region compatible with patient's known right anterior diaphragmatic hernia.
--- NOTE | ~2022-11-28 | US_ITS ---
EXAMINATION: US VENOUS ULTRASOUND WITH DOPPLER LOWER EXTREMITY, LEFT CLINICAL INFORMATION: Rule out DVT COMPARISON: Prior study August 2022 TECHNIQUE: Ultrasound of the deep veins is performed from the hip to the calf with compression sonography and color and pulse Doppler assessment. Spectral analysis with color-flow imaging is performed. FINDINGS: There is normal venous compression and respiratory variation and augmented flow. The visualized common femoral vein, superficial femoral vein, profunda femoral vein, popliteal vein, and the trifurcation region shows no evidence of deep venous thrombosis. Peroneal vein not well visualized. There is no significant popliteal fossa cyst. Incidental finding was made of an enlarged lymph node in the left thigh measuring 3.4 x 1.2 x 3.3 cm uncertain etiology, could be inflammatory versus neoplastic. If the patient's symptoms persist, followup ultrasound in 5 days 7 days might be of value to exclude proximal propagation from a non-visualized calf vein. US/US venous duplex LE IMPRESSION: * No DVT demonstrated in the left lower extremity. * Incidental finding was made of an enlarged lymph node in the left inguinal region upper thigh 3.4 x 1.2 x 3.3 cm uncertain etiology, could be inflammatory versus neoplastic. Attention to clinical correlation and follow-up recommended. If persisted may consider ultrasound-guided biopsy. (Referring physician staff is being called, by physician staff assistance, to be alerted of the above critical findings and recommendations.) 11/28/2022 4:22 PM
--- NOTE | ~2022-11-28 | NM_ITS ---
Lexiscan Myocardial perfusion study Indication: Abnormal EKG, abnormal troponins, assess for coronary disease and ischemia Technique: The patient was brought in for a Lexiscan perfusion study on 12/05/2022 and was injected 0.4 mg of Lexiscan intravenously. Within a minute of this injection 30 mCi of sestamibi was given intravenously. Images were obtained using the SPECT gamma camera interlaced with the gating device. Images were obtained in supine position. Resting perfusion study was performed on 12/06/2022. Patient was administered 30 mCi of sestamibi intravenously at rest. Images were then obtained in supine position. Images were processed with the software and compared side to side in short axis, horizontal long axis and vertical long axis views. Total DLP 182mGy-cm. Findings: Raw acquisition reviewed. Arms by the patient's side. The stress perfusion study showed diminished tracer uptake along the lateral wall. Possibly some improvement with CT attenuation correction but still present. The gated study shows normal LV systolic function with calculated LVEF of 56%. LV cavity is normal in size. The gated study shows diminished lateral wall contractility. Resting study shows small area in the lateral wall with perfusion defect but otherwise unremarkable. There is improvement with CT attenuation correction suggestive of soft tissue attenuation artifact. Gating at rest reveals normal wall motion with ejection fraction at 55%. The findings are consistent with mostly reversible lateral wall perfusion defect. NM/NM cele perf SPECT rest & str Impression: 1. Myocardial perfusion imaging study shows ischemia in the lateral wall, circumflex distribution. 2. Gated LVEF is 56% during stress and 55% during rest. 3. Transient ischemic dilatation not present. EKG component of the test reported separately.
[2022-11-28 13:30] VITALS: BP 139/80; PULSE 103; RESP 18; TEMP 36.8; O2SAT 99; BMI 31.4
--- NOTE | 2022-11-28 13:31 | ED.GENADULT ---
HPI - General Adult General Chief complaint: General Medical <SAULO Delgadillo - Last Filed: 11/28/22 13:37> Stated complaint: l leg swelling quest dvt <SAULO Delgadillo - Last Filed: 11/28/22 13:37> Time Seen by Provider: 11/28/22 15:39 <SAULO Delgadillo - Last Filed: 11/28/22 13:37> Source: patient <Nanci Banegas MD - Last Filed: 11/28/22 19:57> Mode of arrival: ambulatory <Nanci Banegas MD - Last Filed: 11/28/22 19:57> History of Present Illness HPI narrative: 52-year-old female currently being treated for DVT and PE on Eliquis and states she has not missed any of her doses but reports that she has had increasing redness and swelling of the left lower extremity since Monday denies any fever or chills and states she has been eating, drinking, stooling and urinating normally. She denies any acute shortness of breath or chest pain but became very anxious and has reported anxiety a baseline. She is on chronic nasal cannula and at the time of my evaluation patient is no longer tachycardic nor she tachypneic. <Nanci Banegas MD - Last Filed: 11/28/22 19:57> Related Data Home medications: Home Medications Medication Instructions Recorded Confirmed gabapentin 400 mg capsule 400 mg PO QID 09/21/21 11/28/22 acetaminophen 500 mg tablet 2 caplet PO Q6H PRN mild pain 08/24/22 11/28/22 methadone 10 mg/mL oral concentrate 130 mg PO DAILY 08/24/22 11/03/22 alprazolam 0.5 mg tablet 0.5 mg PO DAILY PRN Anxiety 11/28/22 11/28/22 atorvastatin 40 mg tablet 40 mg PO BEDTIME 11/28/22 11/28/22 empagliflozin 25 mg tablet 25 mg PO DAILY 11/28/22 11/28/22 (Jardiance) insulin glargine 100 unit/mL (3 20 unit subcut DAILY 11/28/22 11/28/22 mL) subcutaneous pen (Lantus Solostar U-100 Insulin) insulin glargine 100 unit/mL (3 35 unit subcut BEDTIME 11/28/22 11/28/22 mL) subcutaneous pen (Lantus Solostar U-100 Insulin) Previous Rx's Medication Instructions Recorded lisinopril 5 mg tablet 5 mg PO DAILY #30 tabs 09/29/21 walker #1 ea 10/04/21 apixaban 5 mg tablet (Eliquis) 5 mg PO BID 30 days #60 tabs 09/03/22 metformin 500 mg tablet 500 mg PO BIDWM 30 days #60 tabs 09/03/22 nicotine 21 mg/24 hr daily 21 mg transdermal DAILY #14 ea 09/04/22 transdermal patch <SAULO Delgadillo - Last Filed: 11/28/22 13:37> Allergies/adverse reactions: Allergies Allergy/AdvReac Type Severity Reaction Status Date / Time prednisone [PREDNISONE] Allergy Unknown RASH Verified 11/28/22 13:35 <SAULO Delgadillo - Last Filed: 11/28/22 13:37> Review of Systems Review of Systems: Pertinent positives and negatives as stated in HPI <Nanci Banegas MD - Last Filed: 11/28/22 19:57> [facility] Past Medical History Source: nursing notes reviewed <Nanci Banegas MD - Last Filed: 11/28/22 19:57> Medical History: Medical History Acute respiratory failure with hypoxia Anxiety Chronic respiratory failure Diabetes NSTEMI (non-ST elevated myocardial infarction) Obesity (BMI 35.0-39.9 without comorbidity) Opioid use disorder Osteomyelitis Pneumonitis Pulmonary nodules Substance abuse <SAULO Delgadillo - Last Filed: 11/28/22 13:37> Surgical History: Surgical History S/P amputation of foot Status post transmetatarsal amputation of right foot (09/24/21) <SAULO Delgadillo - Last Filed: 11/28/22 13:37> Social History Social History: Social History Household Members: Family Housing: Apartment Do you presently have visiting nurse or other home services: No Alcohol intake: never Patient Tobacco Use Status: Current everyday Tobacco user Tobacco use type: Cigarette Cigarette Packs Per Day: 1 e-Cigarette/Vaping Use: Currently Using Second Hand Smoke Exposure: Yes Substance Use Type: Marijuana Advance Directives: Yes Advance Directives Information Provided: Yes Advance Directives on File: Yes Advance Directives Date on File: 09/22/21 service: No Current occupational status: unemployed <SAULO Delgadillo - Last Filed: 11/28/22 13:37> Physical Exam ED Vital Signs: Vital Signs - 24 hr 11/28/22 13:30 11/28/22 17:14 11/28/22 18:57 Temperature 98.2 F 98.9 F Pulse Rate 103 H 92 89 Respiratory Rate 18 16 13 Blood Pressure 139/80 142/82 H 135/69 Pulse Oximetry 99 100 100 Oxygen Delivery Method Nasal Cannula Nasal Cannula Nasal Cannula Oxygen Flow Rate 2 2 BMI result Body Mass Index 31.4 <SAULO Delgadillo - Last Filed: 11/28/22 13:37> Vital Signs - 24 hr 11/28/22 13:30 11/28/22 17:14 11/28/22 18:57 Temperature 98.2 F 98.9 F Pulse Rate 103 H 92 89 Respiratory Rate 18 16 13 Blood Pressure 139/80 142/82 H 135/69 Pulse Oximetry 99 100 100 Oxygen Delivery Method Nasal Cannula Nasal Cannula Nasal Cannula Oxygen Flow Rate 2 2 BMI result Body Mass Index 31.4 VITAL SIGNS: Reviewed. GENERAL: Well developed, well nourished, in no acute distress. HEAD: Normocephalic/atraumatic EYES: PERRLA, EOMI EARS: Ext canals without abnormality NOSE: Nares patent bilateral OROPHARYNX: no oral lesions noted, posterior pharynx clear NECK: Supple, no adenopathy LUNGS: Normal breath sounds, no tachypnea/wheeze/rhonchi/rales. SpO2<99> on 2 L nasal cannula CARDIOVASCULAR: Regular rate and rhythm without noted murmurs, no JVD or lower extremity edema. ABDOMEN: Soft, non-tender, non-distended with bowel sounds. MUSCULOSKELETAL: No tenderness, deformities, or effusions noted on gross inspection. EXTREMITIES: No cyanosis, clubbing or edema. LLE: Significant erythema without induration, edema is noted and encompasses the entire lower extremity but there is obvious erythema tracking along the venous system in the medial thigh, distal foot is warm with palpable AT/DP, I do not note any gross ulcerations or skin injuries. RLE: This extremity appears to be doing well with the exception of distal tib/fib area where it is cool to touch, there is noted purplish discoloration and what appears to be a skin break to the anterior tibia, unable to palpate popliteal but femoral pulse is strong and palpable( patient states her leg looks like that all the time) SKIN: Inspection of the skin reveals no rashes NEUROLOGIC: Alert and oriented x 4. Strength and sensation to light touch were grossly intact x 4. <Nanci Banegas MD - Last Filed: 11/28/22 19:57> Course Course Course Narrative: RME: 52-year-old female with pertinent history of PE on Eliquis O2 dependent on 2-4L NC, opioid use disorder on methadone, essential hypertension, COPD, insulin-dependent diabetes mellitus who presents to ED c/o LLE cellulitis and suspected blood clot since Monday. Reports assoc anxiety. Denies CP/SOB, fever +LLE with circumferential erythema/warmth and calf tenderness. EKG, labs, lactic/blood cultures, venous duplex ultrasound ordered Full HPI, ROS and PE to be performed by primary ED provider. <SAULO Delgadillo - Last Filed: 11/28/22 13:37> Medications Administered Discontinued Medications Generic Name Dose Route Start Last Admin Trade Name Freq PRN Reason Stop Dose Admin Piperacillin Sod/Tazobactam 50 mls @ 100 mls/hr 11/28/22 16:32 11/28/22 18:37 Sod 3.375 gm/ Sodium Chloride IV 11/28/22 17:01 Infused ONCE ONE Infusion Sodium Chloride 500 mls @ 999 mls/hr 11/28/22 16:45 11/28/22 18:37 Ns IV 11/28/22 17:15 Infused .Q31M DADA Infusion <SAULO Delgadillo - Last Filed: 11/28/22 13:37> Medications Administered Discontinued Medications Generic Name Dose Route Start Last Admin Trade Name Freq PRN Reason Stop Dose Admin Piperacillin Sod/Tazobactam 50 mls @ 100 mls/hr 11/28/22 16:32 11/28/22 18:37 Sod 3.375 gm/ Sodium Chloride IV 11/28/22 17:01 Infused ONCE ONE Infusion Sodium Chloride 500 mls @ 999 mls/hr 11/28/22 16:45 11/28/22 18:37 Ns IV 11/28/22 17:15 Infused .Q31M DADA Infusion <Nanci Banegas MD - Last Filed: 11/28/22 19:57> Medical Decision Making Medical Decision Making [facility] Narrative: 1615: I evaluated the patient and based on history and clinical presentation it would appear that patient has left lower extremity cellulitis and will receive antibiotics. 1639: I reviewed all investigations and my interpretation is that patient has right lower extremity cellulitis, venous duplex was noted to be negative for DVT but identified an enlarged lymph node consistent with clinical cellulitis. I have noted that patient's right lower extremity appears to be cool to touch, there is a palpable femoral pulse but popliteal is difficult and although patient reports that this is the normal appearance of her leg I will proceed with arterial duplex of the right lower extremity as well. Have noted that patient's troponin is more elevated when compared to prior trend and so will proceed with CT angio with PE protocol as despite the fact that patient is on Eliquis this does not negate the possibility of further propagation due to underlying inflammatory state. Patient is not hypoxic and appears otherwise comfortable at this time. Re-evaluated patient's right lower extremity which actually feels more warm to touch now, however continued with the arterial duplex of the right lower extremity. Patient has received antibiotics for left lower extremity cellulitis, some IV fluids, anti discuss the case with the inpatient hospitalist who accepts admission. There is the understanding that the CT angio with PE protocol is pending. Patient not hypoxic in appears to be breathing without difficulty. <Nanci Banegas MD - Last Filed: 11/28/22 19:57> Differential Diagnosis Please see the discussion above <Nanci Banegas MD - Last Filed: 11/28/22 19:57> Consult Healthcare Provider Management of the patient was discussed with: Hospitalist <Nanci Banegas MD - Last Filed: 11/28/22 19:57> Please see the discussion above <Nanci Banegas MD - Last Filed: 11/28/22 19:57> Lab Data Please see the discussion above <Nanci Banegas MD - Last Filed: 11/28/22 19:57> Result Diagrams: 11/28/22 14:18 11/28/22 14:18 <SAULO Delgadillo - Last Filed: 11/28/22 13:37> Labs: Lab Results 11/28/22 11/28/22 11/28/22 Range/Units 14:18 14:18 14:18 WBC 21.5 H (4.8-10.8) X10*3/uL RBC 4.74 D (4.20-5.50) X10*6/uL Hgb 13.5 D (12.0-16.0) g/dl Hct 41.7 D (37.0-47.0) % MCV 88.0 (80.0-98.0) fL MCH 28.5 (27.0-33.0) pg MCHC 32.4 (31.0-35.0) g/dl RDW 15.0 (11.0-16.0) % Plt Count 295 (160-400) X10*3/uL MPV 10.5 (9.4-12.3) fL Immature Gran % (Auto) 0.9 H (0.0-0.4) % Neut % (Auto) 89.2 H (45-73) % Lymph % (Auto) 6.5 L (20-40) % Major % (Auto) 3.0 (2-11) % Eos % (Auto) 0.0 (0-4) % Baso % (Auto) 0.4 (0-2) % Lymph # (Auto) 1.4 (1.2-4.9) X10*3/uL Major # (Auto) 0.6 (0.1-1.2) X10*3/uL Eos # (Auto) 0.0 (0.0-0.4) X10*3/uL Baso # (Auto) 0.1 (0.0-0.2) X10*3/uL Abs Immat Gran (auto) 0.19 H (0.00-0.03) X10*3/uL Absolute Neuts (auto) 19.2 H (2.0-8.3) x10*3/uL Absolute Nucleated RBC 0.000 (0.0-0.012) X10*3/uL Nucleated RBC % (auto) 0.0 (0.0-0.2) /100WBC PT 15.5 H (10.0-13.1) SEC INR 1.3 H (0.9-1.1) Sodium 131 L (135-145) mmol/L Potassium 3.7 (3.3-5.1) mmol/L Chloride 96 (96-108) mmol/L Carbon Dioxide 21 L (22-29) mmol/L Anion Gap 18 (12-20) BUN 15 (9-16) mg/dL Creatinine 0.96 (0.5-1.4) mg/dL Estim Creat Clear Calc 76.8 Estimated GFR > 60 Random Glucose 273 H (60-115) mg/dL Lactic Acid (0.5-2.0) mmol/L Calcium 9.6 D (8.4-10.2) mg/dL Magnesium 1.9 (1.6-2.6) mg/dL Total Bilirubin 0.4 (0.0-1.0) mg/dL Direct Bilirubin 0.2 (0.0-0.5) mg/dL AST 32 H (5-31) U/L ALT 20 (0-31) U/L Alkaline Phosphatase 106 (39-117) U/L Troponin I High Sens (<3.5-17.0) ng/L B-Natriuretic Peptide (<100) pg/mL Total Protein 7.8 (6.5-8.0) g/dL Albumin 4.3 (3.5-5.0) g/dL 11/28/22 11/28/22 11/28/22 Range/Units 14:18 14:18 14:18 WBC (4.8-10.8) X10*3/uL RBC (4.20-5.50) X10*6/uL Hgb (12.0-16.0) g/dl Hct (37.0-47.0) % MCV (80.0-98.0) fL MCH (27.0-33.0) pg MCHC (31.0-35.0) g/dl RDW (11.0-16.0) % Plt Count (160-400) X10*3/uL MPV (9.4-12.3) fL Immature Gran % (Auto) (0.0-0.4) % Neut % (Auto) (45-73) % Lymph % (Auto) (20-40) % Major % (Auto) (2-11) % Eos % (Auto) (0-4) % Baso % (Auto) (0-2) % Lymph # (Auto) (1.2-4.9) X10*3/uL Major # (Auto) (0.1-1.2) X10*3/uL Eos # (Auto) (0.0-0.4) X10*3/uL Baso # (Auto) (0.0-0.2) X10*3/uL Abs Immat Gran (auto) (0.00-0.03) X10*3/uL Absolute Neuts (auto) (2.0-8.3) x10*3/uL Absolute Nucleated RBC (0.0-0.012) X10*3/uL Nucleated RBC % (auto) (0.0-0.2) /100WBC PT (10.0-13.1) SEC INR (0.9-1.1) Sodium (135-145) mmol/L Potassium (3.3-5.1) mmol/L Chloride (96-108) mmol/L Carbon Dioxide (22-29) mmol/L Anion Gap (12-20) BUN (9-16) mg/dL Creatinine (0.5-1.4) mg/dL Estim Creat Clear Calc Estimated GFR Random Glucose (60-115) mg/dL Lactic Acid 1.7 (0.5-2.0) mmol/L Calcium (8.4-10.2) mg/dL Magnesium (1.6-2.6) mg/dL Total Bilirubin (0.0-1.0) mg/dL Direct Bilirubin (0.0-0.5) mg/dL AST (5-31) U/L ALT (0-31) U/L Alkaline Phosphatase (39-117) U/L Troponin I High Sens 362.1 H* D (<3.5-17.0) ng/L B-Natriuretic Peptide 256 H (<100) pg/mL Total Protein (6.5-8.0) g/dL Albumin (3.5-5.0) g/dL <SAULO Delgadillo - Last Filed: 11/28/22 13:37> Lab Results 11/28/22 11/28/22 11/28/22 Range/Units 14:18 14:18 14:18 WBC 21.5 H (4.8-10.8) X10*3/uL RBC 4.74 D (4.20-5.50) X10*6/uL Hgb 13.5 D (12.0-16.0) g/dl Hct 41.7 D (37.0-47.0) % MCV 88.0 (80.0-98.0) fL MCH 28.5 (27.0-33.0) pg MCHC 32.4 (31.0-35.0) g/dl RDW 15.0 (11.0-16.0) % Plt Count 295 (160-400) X10*3/uL MPV 10.5 (9.4-12.3) fL Immature Gran % (Auto) 0.9 H (0.0-0.4) % Neut % (Auto) 89.2 H (45-73) % Lymph % (Auto) 6.5 L (20-40) % Major % (Auto) 3.0 (2-11) % Eos % (Auto) 0.0 (0-4) % Baso % (Auto) 0.4 (0-2) % Lymph # (Auto) 1.4 (1.2-4.9) X10*3/uL Major # (Auto) 0.6 (0.1-1.2) X10*3/uL Eos # (Auto) 0.0 (0.0-0.4) X10*3/uL Baso # (Auto) 0.1 (0.0-0.2) X10*3/uL Abs Immat Gran (auto) 0.19 H (0.00-0.03) X10*3/uL Absolute Neuts (auto) 19.2 H (2.0-8.3) x10*3/uL Absolute Nucleated RBC 0.000 (0.0-0.012) X10*3/uL Nucleated RBC % (auto) 0.0 (0.0-0.2) /100WBC PT 15.5 H (10.0-13.1) SEC INR 1.3 H (0.9-1.1) Sodium 131 L (135-145) mmol/L Potassium 3.7 (3.3-5.1) mmol/L Chloride 96 (96-108) mmol/L Carbon Dioxide 21 L (22-29) mmol/L Anion Gap 18 (12-20) BUN 15 (9-16) mg/dL Creatinine 0.96 (0.5-1.4) mg/dL Estim Creat Clear Calc 76.8 Estimated GFR > 60 Random Glucose 273 H (60-115) mg/dL Lactic Acid (0.5-2.0) mmol/L Calcium 9.6 D (8.4-10.2) mg/dL Magnesium 1.9 (1.6-2.6) mg/dL Total Bilirubin 0.4 (0.0-1.0) mg/dL Direct Bilirubin 0.2 (0.0-0.5) mg/dL AST 32 H (5-31) U/L ALT 20 (0-31) U/L Alkaline Phosphatase 106 (39-117) U/L Troponin I High Sens (<3.5-17.0) ng/L B-Natriuretic Peptide (<100) pg/mL Total Protein 7.8 (6.5-8.0) g/dL Albumin 4.3 (3.5-5.0) g/dL 11/28/22 11/28/22 11/28/22 Range/Units 14:18 14:18 14:18 WBC (4.8-10.8) X10*3/uL RBC (4.20-5.50) X10*6/uL Hgb (12.0-16.0) g/dl Hct (37.0-47.0) % MCV (80.0-98.0) fL MCH (27.0-33.0) pg MCHC (31.0-35.0) g/dl RDW (11.0-16.0) % Plt Count (160-400) X10*3/uL MPV (9.4-12.3) fL Immature Gran % (Auto) (0.0-0.4) % Neut % (Auto) (45-73) % Lymph % (Auto) (20-40) % Major % (Auto) (2-11) % Eos % (Auto) (0-4) % Baso % (Auto) (0-2) % Lymph # (Auto) (1.2-4.9) X10*3/uL Major # (Auto) (0.1-1.2) X10*3/uL Eos # (Auto) (0.0-0.4) X10*3/uL Baso # (Auto) (0.0-0.2) X10*3/uL Abs Immat Gran (auto) (0.00-0.03) X10*3/uL Absolute Neuts (auto) (2.0-8.3) x10*3/uL Absolute Nucleated RBC (0.0-0.012) X10*3/uL Nucleated RBC % (auto) (0.0-0.2) /100WBC PT (10.0-13.1) SEC INR (0.9-1.1) Sodium (135-145) mmol/L Potassium (3.3-5.1) mmol/L Chloride (96-108) mmol/L Carbon Dioxide (22-29) mmol/L Anion Gap (12-20) BUN (9-16) mg/dL Creatinine (0.5-1.4) mg/dL Estim Creat Clear Calc Estimated GFR Random Glucose (60-115) mg/dL Lactic Acid 1.7 (0.5-2.0) mmol/L Calcium (8.4-10.2) mg/dL Magnesium (1.6-2.6) mg/dL Total Bilirubin (0.0-1.0) mg/dL Direct Bilirubin (0.0-0.5) mg/dL AST (5-31) U/L ALT (0-31) U/L Alkaline Phosphatase (39-117) U/L Troponin I High Sens 362.1 H* D (<3.5-17.0) ng/L B-Natriuretic Peptide 256 H (<100) pg/mL Total Protein (6.5-8.0) g/dL Albumin (3.5-5.0) g/dL <Nanci Banegas MD - Last Filed: 11/28/22 19:57> Independent Interpretation I performed an independent interpretation of an: EKG <Nanci Banegas MD - Last Filed: 11/28/22 19:57> Interpretation: Normal sinus rhythm, HR-95, no STEMI, there is noted ST changes, NJ/QRS/QTC is within normal limits. On review from EKG from 11/03 I do not appreciate significant morphology difference although overall lower amplitudes are noted. <Nanci Banegas MD - Last Filed: 11/28/22 19:57> Radiology Impression Radiologist Impression: My interpretation is in agreement with radiology's impression of the imaging studies. <Nanci Banegas MD - Last Filed: 11/28/22 19:57> External Record Review External record reviewed: Outpatient record and Prior outpatient labs <Nanci Banegas MD - Last Filed: 11/28/22 19:57> Chronic Conditions Patient?s care impacted by: Diabetes <Nanci Banegas MD - Last Filed: 11/28/22 19:57> Discharge Plan Discharge Clinical Impression: Cellulitis of left leg, Sepsis, Elevated troponin, Chronic anticoagulation, Peripheral arterial disease <SAULO Delgadillo - Last Filed: 11/28/22 13:37> Patient Disposition: Admitted As Inpatient <SAULO Delgadillo - Last Filed: 11/28/22 13:37>
--- NOTE | 2022-11-28 13:34 | ECG_ITS ---
Test Reason : chest pain/ swollen legs Blood Pressure : / mmHG Vent. Rate : 095 BPM Atrial Rate : 095 BPM P-R Int : 128 ms QRS Dur : 084 ms QT Int : 308 ms P-R-T Axes : 044 -33 103 degrees QTc Int : 387 ms Normal sinus rhythm Left axis deviation Inferior infarct , age undetermined Possible Anterior infarct , age undetermined ST & T wave abnormality, consider lateral ischemia Abnormal ECG When compared with ECG of 03-NOV-2022 12:26, Inferior infarct is now Present T wave inversion now evident in Lateral leads QT has shortened Referred By: Hao Joseph Electronically Signed By:Bautista Norman
[2022-11-28 14:27] LABS: MANUAL DIFF FLAG NO
[2022-11-28 14:32] LABS: Basophils Absolute Auto 0.1 X10*3/uL (0.0-0.2); Basophils Percent Auto 0.4 % (0-2); Hematocrit 41.7 % (37.0-47.0); Hemoglobin 13.5 g/dl (12.0-16.0); Imm Gran Abs Auto 0.19 X10*3/uL (0.00-0.03); Imm Gran Pct Auto 0.9 % (0.0-0.4); Lymphocytes Absolute Auto 1.4 X10*3/uL (1.2-4.9); Lymphocytes Percent Auto 6.5 % (20-40); Mean Corpuscular HGB Conc 32.4 g/dl (31.0-35.0); Mean Corpuscular Hemoglobin 28.5 pg (27.0-33.0); Mean Platelet Volume 10.5 fL (9.4-12.3); Monocytes Absolute Auto 0.6 X10*3/uL (0.1-1.2); Neutrophils Absolute Auto 19.2 x10*3/uL (2.0-8.3); Neutrophils Percent Auto 89.2 % (45-73); Platelet Count 295 X10*3/uL (160-400); Red Blood Count 4.74 X10*6/uL (4.20-5.50); White Blood Count 21.5 X10*3/uL (4.8-10.8)
[2022-11-28 14:37] LABS: INTERNATIONAL NORM RATIO 1.3 (0.9-1.1); Prothrombin Time 15.5 SEC (10.0-13.1)
[2022-11-28 14:44] LABS: Lactic Acid 1.7 mmol/L (0.5-2.0)
[2022-11-28 14:50] LABS: Alanine Aminotransferase 20 U/L (0-31); Albumin Level 4.3 g/dL (3.5-5.0); Alkaline Phosphatase 106 U/L (39-117); Anion Gap 18 (12-20); Aspartate Amino Transferase 32 U/L (5-31); Bilirubin Direct 0.2 mg/dL (0.0-0.5); Bilirubin Total 0.4 mg/dL (0.0-1.0); Blood Urea Nitrogen 15 mg/dL (9-16); Calcium 9.6 mg/dL (8.4-10.2); Carbon Dioxide 21 mmol/L (22-29); Chloride 96 mmol/L (96-108); Creatinine Clr Calc Pharmacy 76.8; Estimated Glomerular Filt Rate > 60; Glucose Random 273 mg/dL (60-115); Magnesium 1.9 mg/dL (1.6-2.6); Potassium 3.7 mmol/L (3.3-5.1); Sodium 131 mmol/L (135-145); Total Protein 7.8 g/dL (6.5-8.0)
[2022-11-28 14:59] LABS: B Type Natriuretic Peptide 256 pg/mL (<100)
[2022-11-28 15:07] LABS: Troponin-I High Sensitivity 362.1 ng/L (<3.5-17.0)
--- NOTE | 2022-11-28 17:05 | PHA.MEDREC ---
Pharmacy Consult ? Medication Reconciliation Pharmacy has completed the medication reconciliation. Patient states they take 130 mg of methadone now (not 120mg) and gets 2 take home bottles on monday and three on monday. She uses [facility] [place]. Patient states they had their dose today. Archie
[2022-11-28] MEDS: 0.9 % Sodium Chloride 500 ML 999 ML IV (17:11)
[2022-11-28] MEDS: Piperacillin Sodium/Tazobactam 3.375 GM in 0.9 % Sodium Chloride 50 ML IV (17:12)
[2022-11-28 17:14] VITALS: BP 142/82; PULSE 92; RESP 16; O2SAT 100
[2022-11-28 18:57] VITALS: BP 135/69; PULSE 89; RESP 13; TEMP 37.2; O2SAT 100
--- NOTE | 2022-11-28 19:17 | P.HPHOSP_ITS ---
History of Present Illness Date of Service: 11/28/22 Chief Complaint: Leg swelling This is a 52-year-old female with pertinent history of PE on Eliquis, opioid use disorder on methadone, essential hypertension, chronic hypoxic respiratory failure due to COPD, insulin-dependent diabetes mellitus [facility] of leg swelling. Patient states she started having left lower extremity swelling that she 1st noticed 2 days ago. It was associated with redness, warmth and pain. She denies fever, chills but admits nausea and nonbloody emesis. Denies trauma to the foot. Patient denies chest discomfort, palpitations, shortness of breath, abdominal pain, changes in urinary or bowel habits. In the emergency department, patient was found to be septic with elevated white count Review of Systems Constitutional: Constitutional: Reports chills Cardiovascular: Cardiovascular: Reports no additional cardiovascular complain ts Respiratory: Respiratory: Reports no additional respiratory complaints Gastrointestinal: Gastrointestinal: Reports nausea and Reports vomiting Genitourinary: Genitourinary: Reports no additional female genitourinary complaints Musculoskeletal: Musculoskeletal: Reports joint swelling Neurologic: Reports system reviewed and no additional complaints, except as documented [facility] Medical History Acute respiratory failure with hypoxia Anxiety Chronic respiratory failure Diabetes NSTEMI (non-ST elevated myocardial infarction) Obesity (BMI 35.0-39.9 without comorbidity) Opioid use disorder Osteomyelitis Pneumonitis Pulmonary nodules Substance abuse Pertinent family history: No family history of CAD Surgical History S/P amputation of foot Status post transmetatarsal amputation of right foot (09/24/21) Social History Household Members: Family Housing: Apartment Do you presently have visiting nurse or other home services: No Alcohol intake: never Patient Tobacco Use Status: Current everyday Tobacco user Tobacco use type: Cigarette Cigarette Packs Per Day: 1 e-Cigarette/Vaping Use: Currently Using Second Hand Smoke Exposure: Yes Substance Use Type: Marijuana Advance Directives: Yes Advance Directives Information Provided: Yes Advance Directives on File: Yes Advance Directives Date on File: 09/22/21 service: No Current occupational status: unemployed Meds Allergies Allergy/AdvReac Type Severity Reaction Status Date / Time prednisone [PREDNISONE] Allergy Unknown RASH Verified 11/28/22 13:35 Active Medications: Current Medications Pharmacy Consult (Consult Rx Vancomycin Dosing) 1 each MISCELLANE DAILY PRN PRN Reason: Consult order Pharmacy Consult (Consult Rx Perform Med Rec) 1 each MISCELLANE ONCE PRN PRN Reason: Consult order Home Medications Medication Instructions Recorded Confirmed Last Taken Type gabapentin 400 mg capsule 400 mg PO QID 09/21/21 11/28/22 11/28/22 History acetaminophen 500 mg tablet 2 caplet PO Q6H PRN mild pain 08/24/22 11/28/22 Unknown History methadone 10 mg/mL oral concentrate 130 mg PO DAILY 08/24/22 11/03/22 11/28/22 History alprazolam 0.5 mg tablet 0.5 mg PO DAILY PRN Anxiety 11/28/22 11/28/22 Unknown History atorvastatin 40 mg tablet 40 mg PO BEDTIME 11/28/22 11/28/22 11/27/22 History empagliflozin 25 mg tablet 25 mg PO DAILY 11/28/22 11/28/22 11/28/22 History (Jardiance) insulin glargine 100 unit/mL (3 20 unit subcut DAILY 11/28/22 11/28/22 11/28/22 History mL) subcutaneous pen (Lantus Solostar U-100 Insulin) insulin glargine 100 unit/mL (3 35 unit subcut BEDTIME 11/28/22 11/28/22 11/27/22 History mL) subcutaneous pen (Lantus Solostar U-100 Insulin) Physical Exam Vital Signs and Narrative: Vital Signs: Last Vital Signs Temp 98.9 F 11/28/22 18:57 Pulse 89 11/28/22 18:57 Resp 13 11/28/22 18:57 BP 135/69 11/28/22 18:57 Pulse Ox 100 11/28/22 18:57 O2 Del Method Nasal Cannula 11/28/22 18:57 O2 Flow Rate 2 11/28/22 18:57 Oxygen Flow Rate 4 11/28/22 13:30 BMI result Body Mass Index 31.4 Middle-aged female lying in bed in no distress on supplemental oxygen Neck supple, no JVD Regular rate and rhythm, S1-S2 heard Regular breath sounds bilaterally, no wheezing or crackles appreciated Abdomen soft nontender, no guarding, no rigidity Patient is awake, alert and oriented to self, place, time and person ; no focal motor deficit Musculoskeletal: Left lower extremity with erythema, warmth and tenderness Psych: Normal mood No pedal edema Results Labs 11/28/22 14:18 11/28/22 14:18 Labs: Laboratory Results - last 24 hr 11/28/22 11/28/22 11/28/22 14:18 14:18 14:18 MCV 88.0 MCH 28.5 MCHC 32.4 RDW 15.0 Plt Count 295 MPV 10.5 Immature Gran % (Auto) 0.9 H Neut % (Auto) 89.2 H Lymph % (Auto) 6.5 L [place] % (Auto) 3.0 Eos % (Auto) 0.0 Baso % (Auto) 0.4 Lymph # (Auto) 1.4 [place] # (Auto) 0.6 Eos # (Auto) 0.0 Baso # (Auto) 0.1 Abs Immat Gran (auto) 0.19 H Absolute Neuts (auto) 19.2 H Absolute Nucleated RBC 0.000 Nucleated RBC % (auto) 0.0 PT 15.5 H INR 1.3 H Anion Gap 18 Estim Creat Clear Calc 76.8 Estimated GFR > 60 Random Glucose 273 H Lactic Acid Calcium 9.6 D Magnesium 1.9 Total Bilirubin 0.4 Direct Bilirubin 0.2 AST 32 H ALT 20 Alkaline Phosphatase 106 Troponin I High Sens B-Natriuretic Peptide Total Protein 7.8 Albumin 4.3 11/28/22 11/28/22 11/28/22 14:18 14:18 14:18 MCV MCH MCHC RDW Plt Count MPV Immature Gran % (Auto) Neut % (Auto) Lymph % (Auto) [place] % (Auto) Eos % (Auto) Baso % (Auto) Lymph # (Auto) [place] # (Auto) Eos # (Auto) Baso # (Auto) Abs Immat Gran (auto) Absolute Neuts (auto) Absolute Nucleated RBC Nucleated RBC % (auto) PT INR Anion Gap Estim Creat Clear Calc Estimated GFR Random Glucose Lactic Acid 1.7 Calcium Magnesium Total Bilirubin Direct Bilirubin AST ALT Alkaline Phosphatase Troponin I High Sens 362.1 H* D B-Natriuretic Peptide 256 H Total Protein Albumin Imaging Radiologist's Impressions: Impressions Venous Duplex 11/28/22 15:18 IMPRESSION: * No DVT demonstrated in the left lower extremity. * Incidental finding was made of an enlarged lymph node in the left inguinal region upper thigh 3.4 x 1.2 x 3.3 cm uncertain etiology, could be inflammatory versus neoplastic. Attention to clinical correlation and follow-up recommended. If persisted may consider ultrasound-guided biopsy. (Referring physician staff is being called, by physician staff assistance, to be alerted of the above critical findings and recommendations.) 11/28/2022 4:22 PM Assessment and Plan (1) Cellulitis: Status: Acute Plan This is a 52-year-old female with pertinent history of PE on Eliquis, opioid use disorder on methadone, essential hypertension, chronic hypoxic respiratory failure due to COPD, insulin-dependent diabetes mellitus presents to the emergency department for evaluation of leg swelling. #. Sepsis due to left lower extremity nonpurulent cellulitis: Resuscitated with IV crystalloids. Will initiate empiric IV vancomycin. Lactic acid and blood culture obtained. No DVT on venous duplex. Enlarged lymph node noted in left inguinal region, follow outpatient. Arterial duplex scan pending. #. Chronic hypoxemic respiratory failure secondary to COPD and PE: Continue home supplemental oxygen, baseline 2 L. On Eliquis. DuoNebs p.r.n. #.? Insulin-dependent diabetes mellitus with uncontrolled hyperglycemia:?Initiating basal plus regimen #. Essential hypertension: Continue home antihypertensives #. Substance use disorder: On methadone #. Elevated troponin: Likely due to increased demand, type 2. Trend. CT Angio ordered from ER pending Med rec pending DVT prophylaxis: On Eliquis Full code Cardiac diet Admit as inpatient and will require two night minimum hospital stay for IV antibiotics Time Spent With Patient Time: Total time managing care of this patient today ____ minutes. Quality Stroke Does the patient have a stroke diagnosis?: No VTE Prior VTE?: No VTE Risk Level:: Medical - moderate - high VTE Device Contraindication: Treatment Not Indicated VTE Drug Contraindication: N/A - Med Ordered
[2022-11-28 20:23] LABS: Glucose, Whole Blood 204 mg/dL (60-115)
[2022-11-28 20:24] LABS: Troponin-I High Sensitivity 155.9 ng/L (<3.5-17.0)
[2022-11-28] MEDS: Insulin Glargine,Hum.rec.anlog 100 UNIT/ML 10 ML VIAL 20 UNIT SUBCUT (20:45)
[2022-11-28] MEDS: Insulin Lispro 100 UNIT/ML 3 ML VIAL SUBCUT (20:45)
[2022-11-28] MEDS: vancomycin/NS 2,000 MG/500 ML PLAST..BAG 250 MG IV (20:46)
[2022-11-28 20:55] LABS: Amphetamine Screen Urine Not Detected (Not Detect); Barbiturates, Urine Not Detected (Not Detect); Benzodiazepines Screen Urine Not Detected (Not Detect); Cannabinoid Screen Urine Not Detected (Not Detect); Cocaine Screen Urine Not Detected (Not Detect); Fentanyl, urine POSITIVE (Not Detect); Opiate Screen Urine Not Detected (Not Detect); Phencyclidine Screen Urine Not Detected (Not Detect)
--- NOTE | 2022-11-28 21:43 | PC.NURSE ---
Pt IV in the right AC blew during her CTA. I attempted to get another line but was unsuccessful. I called Dr. Yates who said to hold off on CTA for the time being. Currently waiting transport upstairs. I attempted to call report at 21:00.
--- NOTE | 2022-11-28 21:51 | PHA.PROG ---
Admission Date/Time: November 28, 2022 19:14 Indication: skin Weight in k.451 kg Adjusted body weight in Kg: [place] body weight in Kg: Obesity Dosing Indication % IBW: Serum Creatinine - Last 168 Hours 11/28/22 14:18 Creatinine 0.96 Estimated CrCl and GFR - Last 168 Hours 11/28/22 14:18 Estim Creat Clear Calc 76.8 Estimated GFR > 60 Vancomycin Loading Dose: 2000 mg Current Vancomycin Dosing Regimen: 1000 mg q12h Vancomycin Monitoring using AUC goal of 400 - 600 range with trough as surrogate marker: 526 Date and Time for next Vancomycin Level to be drawn: 11/30/22 0700 Pharmacist Comments on Vancomycin Plan: draw trough prior to 11/29/22 2100 dose if SCr has big change in the morning Vancomycin dosing will take advantage of [employer] as a clinical decision support tool that uses Bayesian modeling to calculate individual patient's pharmacokinetic parameters and forecast the patient's drug concentration time course with the target goal AUC 24 range of 400 - 600 mg/L/hr.
[2022-11-28 22:00] VITALS: BMI 34.1
[2022-11-28 23:03] VITALS: BP 139/64; PULSE 81; RESP 18; TEMP 37.2; O2SAT 96
[2022-11-28] MEDS: ALPRAZolam 0.5 MG TABLET PO (23:29)
[2022-11-28] MEDS: 0.9 % Sodium Chloride Flush 3 ML SYRINGE IVFLUSH (23:31)
[2022-11-29] MEDS: Acetaminophen 325 MG TABLET 650 MG PO ×2 (00:18→07:58)
[2022-11-29 03:52] VITALS: BP 108/60; PULSE 64; RESP 18; TEMP 37; O2SAT 96
[2022-11-29 07:27] LABS: Glucose, Whole Blood 201 mg/dL (60-115)
[2022-11-29] MEDS: Insulin Lispro 100 UNIT/ML 3 ML VIAL SUBCUT ×4 (07:47→21:06)
[2022-11-29] MEDS: 0.9 % Sodium Chloride Flush 3 ML SYRINGE IVFLUSH ×3 (07:47→21:13)
[2022-11-29] MEDS: Insulin Glargine,Hum.rec.anlog 100 UNIT/ML 10 ML VIAL 20 UNIT SUBCUT (07:48)
[2022-11-29] MEDS: lisinopriL 5 MG TABLET PO (07:58)
[2022-11-29] MEDS: Gabapentin 400 MG CAPSULE PO ×4 (07:58→21:06)
[2022-11-29] MEDS: Nicotine 21 MG PATCH.TD24 TRANSDERMA (07:58)
[2022-11-29] MEDS: Empagliflozin 25 MG TABLET PO (07:59)
[2022-11-29 08:00] VITALS: BP 119/58; PULSE 75; RESP 20; TEMP 36.8; O2SAT 98
[2022-11-29 09:02] LABS: MANUAL DIFF FLAG NO
[2022-11-29 09:06] LABS: Basophils Absolute Auto 0.1 X10*3/uL (0.0-0.2); Basophils Percent Auto 0.5 % (0-2); Eosinophils Absolute Auto 0.1 X10*3/uL (0.0-0.4); Eosinophils Percent Auto 0.3 % (0-4); Hematocrit 35.8 % (37.0-47.0); Hemoglobin 11.5 g/dl (12.0-16.0); Imm Gran Abs Auto 0.07 X10*3/uL (0.00-0.03); Imm Gran Pct Auto 0.5 % (0.0-0.4); Lymphocytes Absolute Auto 1.5 X10*3/uL (1.2-4.9); Lymphocytes Percent Auto 10.2 % (20-40); Mean Corpuscular HGB Conc 32.1 g/dl (31.0-35.0); Mean Corpuscular Hemoglobin 28.7 pg (27.0-33.0); Mean Corpuscular Volume 89.3 fL (80.0-98.0); Mean Platelet Volume 11.4 fL (9.4-12.3); Monocytes Absolute Auto 0.8 X10*3/uL (0.1-1.2); Monocytes Percent Auto 5.9 % (2-11); Neutrophils Absolute Auto 11.8 x10*3/uL (2.0-8.3); Neutrophils Percent Auto 82.6 % (45-73); Platelet Count 207 X10*3/uL (160-400); Red Blood Count 4.01 X10*6/uL (4.20-5.50); Red Cell Distribution Width 15.3 % (11.0-16.0); White Blood Count 14.3 X10*3/uL (4.8-10.8)
--- NOTE | 2022-11-29 09:18 | MHC.CM.PN ---
EMR REVIEWED, PT ADMITTED W/LEFT LOWER LEG EXTREMITY SWELLING/CELLULITIS, CM MET W/PT WHO REPORTS SHE LIVES W/ADULT SON, USES CRUTCHES AND W/C AND ALSO HAS A BEDSIDE COMMODE, A WALKER AND HOME O2 SHE REPORTS SHE JUST USES AT NIGHT, [facility] FOR METHADONE MAINT AND [facility] FOR HOME O2. PT DECLINES NEED TO MEET W/RECOVERY TEAM AND REPORTS SHE HAS BEEN CLEAN SINCE SHE OD'D LAST YEAR AND WAS [place] ON [place] [facility] [place] WAS POSITIVE FOR [place]. PT VERIFIES PFIZER X2, PCP ZACHARY TURNER AND HCP IS ON FILE IN [facility]AREPORT FROM PREVIOUS ADMIT, COPY PRINTED AND PLACED IN CHART. ANTIC D/C HOME NO NEW SERVICES W/PT TO ARRANGE TRANSPORT
[2022-11-29 09:29] LABS: Anion Gap 16 (12-20); Blood Urea Nitrogen 12 mg/dL (9-16); Calcium 8.6 mg/dL (8.4-10.2); Carbon Dioxide 21 mmol/L (22-29); Chloride 100 mmol/L (96-108); Creatinine Clr Calc Pharmacy 106.7; Estimated Glomerular Filt Rate > 60; Glucose Random 220 mg/dL (60-115); Potassium 3.6 mmol/L (3.3-5.1); Sodium 133 mmol/L (135-145)
[2022-11-29 09:48] LABS: Troponin-I High Sensitivity 54.2 ng/L (<3.5-17.0)
[2022-11-29] MEDS: vancomycin HCL 1,000 MG in 0.9 % Sodium Chloride 250 ML 270 MG IV ×2 (09:53→21:07)
[2022-11-29 11:29] LABS: Glucose, Whole Blood 207 mg/dL (60-115)
--- NOTE | 2022-11-29 12:20 | HE.PHANOTE ---
Pharmacy has received patients methadone verification form. Patient is confirmed to be on 130 mg, last doses 130 mg on 11/25 with enough take home bottles to dose to 11/28.
[2022-11-29] MEDS: methADONE HCl 20 MG/2 ML ORAL.CONC 130 MG PO (12:46)
--- NOTE | 2022-11-29 13:48 | HO.PM.IMPN ---
Subjective Subjective Date of Service: 11/29/22 Review of Systems Follow up cellulitis pain to LE Physical Exam Vital Signs: Vital Signs: Last Vital Signs Temp 98.2 F 11/29/22 08:00 Pulse 75 11/29/22 08:00 Resp 20 11/29/22 08:00 BP 119/58 L 11/29/22 08:00 Pulse Ox 98 11/29/22 08:00 O2 Del Method Room Air 11/29/22 08:00 O2 Flow Rate 3 11/29/22 03:52 Oxygen Flow Rate 4 11/28/22 13:30 BMI result Body Mass Index 34.1 Appearing in no acute distress lung sounds are clear to auscultation heart regular rate rhythm, clear S1, S2 positive bowel sounds, abdomen is soft, nontender neuro patient is alert x3, no focal deficits erythema to bilat LE Objective Data Active Medications Acetaminophen (Acetaminophen 325 Mg Tablet) 650 mg PO Q6H PRN PRN Reason: Pain, Mild (Pain Scale 1-3) Last Admin: 11/29/22 07:58 Dose: 650 mg Documented By: GIO Albuterol/Ipratropium (Albuterol/Iprat 2.5/0.5mg 3 Ml Ampul.Neb) 3 ml INHALE Q4H PRN PRN Reason: Wheezing Alprazolam (Alprazolam 0.5 Mg Tablet) 0.5 mg PO DAILY PRN PRN Reason: Anxiety Apixaban (Apixaban 5 Mg Tablet) 5 mg PO BID [facility] Atorvastatin Calcium (Atorvastatin Calcium 40 Mg Tablet) 40 mg PO BEDTIME [facility] Empagliflozin (Empagliflozin 25 Mg Tablet) 25 mg PO DAILY [facility] Last Admin: 11/29/22 07:59 Dose: 25 mg Documented By: GIO Gabapentin (Gabapentin 400 Mg Capsule) 400 mg PO QID [facility] Last Admin: 11/29/22 12:46 Dose: 400 mg Documented By: GIO Glucose (Glucose Gel 15 Gm Gel..Gram.) 15 gm PO Q15M PRN; Protocol PRN Reason: per Hypoglycemia Standing Ord. Dextrose (D10) 250 mls @ 750 mls/hr IV Q15M PRN; Protocol PRN Reason: per Hypoglycemia Standing Ord. Vancomycin HCl 1,000 mg/ (Sodium Chloride) 270 mls @ 270 mls/hr IV Q12H [facility] Last Infusion: 11/29/22 11:00 Dose: 0 mls/hr Documented By: GIO Insulin Glargine (Insulin Glargine,Hum.Rec.Anlog 100 Unit/Ml 10 Ml Vial) 20 unit SUBCUT DAILY [facility] Last Admin: 11/29/22 07:59 Dose: Not Given Documented By: GIO Non-Admin Reason: Previously Administered Insulin Glargine (Insulin Glargine,Hum.Rec.Anlog 100 Unit/Ml 10 Ml Vial) 35 unit SUBCUT BEDTIME [facility] Insulin Human Lispro (Insulin Lispro 100 Unit/Ml 3 Ml Vial) 0 unit SUBCUT QIDACHS [facility]; Protocol Last Admin: 11/29/22 12:45 Dose: 4 unit Documented By: GIO Lisinopril (Lisinopril 5 Mg Tablet) 5 mg PO DAILY [facility]; Protocol Last Admin: 11/29/22 07:58 Dose: 5 mg Documented By: GIO Melatonin (Melatonin 3 Mg Tablet) 6 mg PO BEDTIME PRN PRN Reason: Insomnia Methadone HCl (Methadone Hcl 20 Mg/2 Ml Oral.Conc) 130 mg PO DAILY [facility] Last Admin: 11/29/22 12:46 Dose: 130 mg Documented By: GIO Nicotine (Nicotine 21 Mg Patch.Td24) 21 mg TRANSDERMA DAILY [facility] Last Admin: 11/29/22 07:58 Dose: 21 mg Documented By: GIO Ondansetron HCl (Ondansetron Hcl 4 Mg/2 Ml Vial) 4 mg IVPUSH Q8H PRN PRN Reason: Nausea and Vomiting Oxycodone HCl (Oxycodone Hcl Immed Release 5 Mg Tablet) 10 mg PO Q4H PRN PRN Reason: Pain, Mild (Pain Scale 1-3) Pharmacy Consult (Consult Rx Perform Med Rec) 1 each MISCELLANE ONCE PRN PRN Reason: Consult order Pharmacy Consult (Consult Rx Vancomycin Dosing) 1 each MISCELLANE DAILY PRN PRN Reason: Consult order Sodium Chloride (0.9 % Sodium Chloride Flush 3 Ml Syringe) 3 ml IVFLUSH QSHIFT [facility] Last Admin: 11/29/22 07:47 Dose: 3 ml Documented By: GIO Labs 11/29/22 08:55 11/29/22 08:55 Labs: Laboratory Results - last 24 hr 04/24/23 04/24/23 04/24/23 14:18 14:18 14:18 MCV 88.0 MCH 28.5 MCHC 32.4 RDW 15.0 Plt Count 295 MPV 10.5 Immature Gran % (Auto) 0.9 H Neut % (Auto) 89.2 H Lymph % (Auto) 6.5 L [place] % (Auto) 3.0 Eos % (Auto) 0.0 Baso % (Auto) 0.4 Lymph # (Auto) 1.4 [place] # (Auto) 0.6 Eos # (Auto) 0.0 Baso # (Auto) 0.1 Abs Immat Gran (auto) 0.19 H Absolute Neuts (auto) 19.2 H Absolute Nucleated RBC 0.000 Nucleated RBC % (auto) 0.0 PT 15.5 H INR 1.3 H Anion Gap 18 Estim Creat Clear Calc 76.8 Estimated GFR > 60 POC Glucose Random Glucose 273 H Lactic Acid Calcium 9.6 D Magnesium 1.9 Total Bilirubin 0.4 Direct Bilirubin 0.2 AST 32 H ALT 20 Alkaline Phosphatase 106 Troponin I High Sens B-Natriuretic Peptide Total Protein 7.8 Albumin 4.3 Urine Opiates Screen Urine Fentanyl Screen Ur Barbiturates Screen Ur Phencyclidine Scrn Ur Amphetamines Screen U Benzodiazepines Scrn Urine Cocaine Screen U Marijuana (THC) Screen 11/28/22 11/28/22 11/28/22 14:18 14:18 14:18 MCV MCH MCHC RDW Plt Count MPV Immature Gran % (Auto) Neut % (Auto) Lymph % (Auto) [place] % (Auto) Eos % (Auto) Baso % (Auto) Lymph # (Auto) [place] # (Auto) Eos # (Auto) Baso # (Auto) Abs Immat Gran (auto) Absolute Neuts (auto) Absolute Nucleated RBC Nucleated RBC % (auto) PT INR Anion Gap Estim Creat Clear Calc Estimated GFR POC Glucose Random Glucose Lactic Acid 1.7 Calcium Magnesium Total Bilirubin Direct Bilirubin AST ALT Alkaline Phosphatase Troponin I High Sens 362.1 H* D B-Natriuretic Peptide 256 H Total Protein Albumin Urine Opiates Screen Urine Fentanyl Screen Ur Barbiturates Screen Ur Phencyclidine Scrn Ur Amphetamines Screen U Benzodiazepines Scrn Urine Cocaine Screen U Marijuana (THC) Screen 11/28/22 11/28/22 11/28/22 19:43 20:18 20:32 MCV MCH MCHC RDW Plt Count MPV Immature Gran % (Auto) Neut % (Auto) Lymph % (Auto) [place] % (Auto) Eos % (Auto) Baso % (Auto) Lymph # (Auto) [place] # (Auto) Eos # (Auto) Baso # (Auto) Abs Immat Gran (auto) Absolute Neuts (auto) Absolute Nucleated RBC Nucleated RBC % (auto) PT INR Anion Gap Estim Creat Clear Calc Estimated GFR POC Glucose 204 H Random Glucose Lactic Acid Calcium Magnesium Total Bilirubin Direct Bilirubin AST ALT Alkaline Phosphatase Troponin I High Sens 155.9 H* D B-Natriuretic Peptide Total Protein Albumin Urine Opiates Screen Not Detected Urine Fentanyl Screen POSITIVE H Ur Barbiturates Screen Not Detected Ur Phencyclidine Scrn Not Detected Ur Amphetamines Screen Not Detected U Benzodiazepines Scrn Not Detected Urine Cocaine Screen Not Detected U Marijuana (THC) Screen Not Detected 11/29/22 11/29/22 11/29/22 07:17 08:55 08:55 MCV 89.3 MCH 28.7 MCHC 32.1 RDW 15.3 Plt Count 207 D MPV 11.4 Immature Gran % (Auto) 0.5 H Neut % (Auto) 82.6 H Lymph % (Auto) 10.2 L [place] % (Auto) 5.9 Eos % (Auto) 0.3 Baso % (Auto) 0.5 Lymph # (Auto) 1.5 [place] # (Auto) 0.8 Eos # (Auto) 0.1 Baso # (Auto) 0.1 Abs Immat Gran (auto) 0.07 H Absolute Neuts (auto) 11.8 H Absolute Nucleated RBC 0.000 Nucleated RBC % (auto) 0.0 PT INR Anion Gap 16 Estim Creat Clear Calc 106.7 Estimated GFR > 60 POC Glucose 201 H Random Glucose 220 H Lactic Acid Calcium 8.6 D Magnesium Total Bilirubin Direct Bilirubin AST ALT Alkaline Phosphatase Troponin I High Sens B-Natriuretic Peptide Total Protein Albumin Urine Opiates Screen Urine Fentanyl Screen Ur Barbiturates Screen Ur Phencyclidine Scrn Ur Amphetamines Screen U Benzodiazepines Scrn Urine Cocaine Screen U Marijuana (THC) Screen 11/29/22 11/29/22 11/29/22 08:55 08:55 11:12 MCV MCH MCHC RDW Plt Count MPV Immature Gran % (Auto) Neut % (Auto) Lymph % (Auto) [place] % (Auto) Eos % (Auto) Baso % (Auto) Lymph # (Auto) [place] # (Auto) Eos # (Auto) Baso # (Auto) Abs Immat Gran (auto) Absolute Neuts (auto) Absolute Nucleated RBC Nucleated RBC % (auto) PT INR Anion Gap Estim Creat Clear Calc Cancelled Estimated GFR Cancelled POC Glucose 207 H Random Glucose Lactic Acid Calcium Magnesium Total Bilirubin Direct Bilirubin AST ALT Alkaline Phosphatase Troponin I High Sens 54.2 H* D B-Natriuretic Peptide Total Protein Albumin Urine Opiates Screen Urine Fentanyl Screen Ur Barbiturates Screen Ur Phencyclidine Scrn Ur Amphetamines Screen U Benzodiazepines Scrn Urine Cocaine Screen U Marijuana (THC) Screen Microbiology Microbiology Results: Microbiology 11/28/22 14:18 Blood Culture - Preliminary Blood - Venous Prelim: GPC Gram Stain only Assessment and Plan (1) Cellulitis of left leg: Status: Acute Plan This is a 52-year-old female with pertinent history of PE on Eliquis, opioid use disorder on methadone, essential hypertension, chronic hypoxic respiratory failure due to COPD, insulin-dependent diabetes mellitus presents to the emergency department for evaluation of leg swelling. Sepsis due to left lower extremity nonpurulent cellulitis IV vancomycin.? blood cx / GPC No DVT on venous duplex. Enlarged lymph node noted in left inguinal region, follow outpatient. Arterial duplex no evidence of LE arterial disease Chronic hypoxemic respiratory failure secondary to COPD and PE Continue home supplemental oxygen, baseline 2 L.? On Eliquis.? DuoNebs p.r.n. Insulin-dependent diabetes mellitus with uncontrolled hyperglycemia ss, ada diet Essential hypertension Continue home antihypertensives Substance use disorder On methadone Elevated troponin Likely due to increased demand, type 2.? Trend.? CT Angio ordered from ER pending Med rec pending DVT prophylaxis: On Eliquis Full code Cardiac diet Admit as inpatient and will require two night minimum hospital stay for IV antibiotics Time Spent With Patient Time: Total time managing care of this patient today ____ minutes. Quality Stroke Does the patient have a stroke diagnosis?: No VTE Prior VTE?: No VTE Risk Level:: Medical - moderate - high VTE Device Contraindication: Treatment Not Indicated VTE Drug Contraindication: N/A - Med Ordered
[2022-11-29 15:51] VITALS: BP 112/63; PULSE 77; RESP 20; TEMP 36.6; O2SAT 99
[2022-11-29 16:10] LABS: Glucose, Whole Blood 256 mg/dL (60-115)
[2022-11-29 20:31] LABS: Glucose, Whole Blood 210 mg/dL (60-115)
[2022-11-29] MEDS: Apixaban 5 MG TABLET PO (21:06)
[2022-11-29] MEDS: Insulin Glargine,Hum.rec.anlog 100 UNIT/ML 10 ML VIAL 35 UNIT SUBCUT (21:06)
[2022-11-29] MEDS: Atorvastatin Calcium 40 MG TABLET PO (21:07)
[2022-11-29] MEDS: oxyCODONE HCl Immed Release 5 MG TABLET 10 MG PO (21:07)
[2022-11-29] MEDS: ALPRAZolam 0.5 MG TABLET PO (21:13)
[2022-11-29 23:14] VITALS: BP 131/60; PULSE 67; RESP 18; TEMP 36.1; O2SAT 100
--- NOTE | 2022-11-30 | ECG_ITS ---
Test Reason : cp Blood Pressure : / mmHG Vent. Rate : 064 BPM Atrial Rate : 064 BPM P-R Int : 132 ms QRS Dur : 084 ms QT Int : 486 ms P-R-T Axes : 054 -05 033 degrees QTc Int : 501 ms Normal sinus rhythm Nonspecific T wave abnormality Prolonged QT Abnormal ECG When compared with ECG of 28-NOV-2022 14:01, Nonspecific T wave changes. Prolonged QTc Referred By: Shaina Burt Electronically Signed By:Bautista Norman
[2022-11-30] MEDS: oxyCODONE HCl Immed Release 5 MG TABLET 10 MG PO ×4 (02:18→20:40)
[2022-11-30 07:31] VITALS: BP 120/59; PULSE 60; RESP 20; TEMP 36.4; O2SAT 100
[2022-11-30 07:48] LABS: Glucose, Whole Blood 222 mg/dL (60-115)
[2022-11-30] MEDS: methADONE HCl 20 MG/2 ML ORAL.CONC 130 MG PO (08:15)
[2022-11-30] MEDS: 0.9 % Sodium Chloride Flush 3 ML SYRINGE IVFLUSH ×3 (08:15→20:41)
[2022-11-30] MEDS: Insulin Lispro 100 UNIT/ML 3 ML VIAL SUBCUT ×4 (08:16→20:40)
[2022-11-30] MEDS: vancomycin HCL 1,000 MG in 0.9 % Sodium Chloride 250 ML 270 MG IV (08:16)
[2022-11-30] MEDS: Insulin Glargine,Hum.rec.anlog 100 UNIT/ML 10 ML VIAL 20 UNIT SUBCUT (08:16)
[2022-11-30] MEDS: Empagliflozin 25 MG TABLET PO (08:17)
[2022-11-30] MEDS: Nicotine 21 MG PATCH.TD24 TRANSDERMA (08:17)
[2022-11-30] MEDS: lisinopriL 5 MG TABLET PO (08:17)
[2022-11-30] MEDS: Gabapentin 400 MG CAPSULE PO ×4 (08:17→20:40)
[2022-11-30] MEDS: Apixaban 5 MG TABLET PO ×2 (08:17→20:40)
[2022-11-30 09:39] LABS: Creatinine Clr Calc Pharmacy 97.2; Estimated Glomerular Filt Rate > 60
[2022-11-30 09:50] LABS: Vancomycin Trough 29.3 mcg/mL (10.0-20.0)
--- NOTE | 2022-11-30 10:58 | MHC.CM.PN ---
EMR REVIEWED, PT W/CELLULITIS REMAINS ON IV ABX, PER HOSPITALIST ANTIC D/C IN 1-2 DAYS, CM WILL CONT TO FOLLOW D/C NEEDS.
[2022-11-30 11:51] LABS: Glucose, Whole Blood 206 mg/dL (60-115)
--- NOTE | 2022-11-30 13:47 | P.PNIM_ITS ---
Subjective Subjective Date of Service: 11/30/22 Interval History: seen and examined this morning follow up for lower extremity cellulitis still with leg pain, denies fever, chills Review of Systems Review of Systems: Yes all other systems are reviewed and are negative Constitutional Constitutional: Denies chills and Denies fever(s) Cardiovascular Cardiovascular: Denies chest pain, Denies palpitations and Denies dyspnea Respiratory Respiratory: Denies cough and Denies dyspnea Gastrointestinal Gastrointestinal: Denies abdominal pain Endocrine Endocrine: Denies palpitations Physical Exam Vital Signs: Vital Signs: Last Vital Signs Temp 97.5 F 11/30/22 07:31 Pulse 60 11/30/22 07:31 Resp 20 11/30/22 07:31 BP 120/59 L 11/30/22 07:31 Pulse Ox 100 11/30/22 07:31 O2 Del Method Nasal Cannula 11/30/22 07:31 O2 Flow Rate 3 11/30/22 07:31 Oxygen Flow Rate 4 11/28/22 13:30 BMI result Body Mass Index 34.1 Const: General: cooperative, comfortable, no acute distress, alert and awake Nutritional Appearance: overweight Orientation/consciousness: patient oriented x3 Resp: Effort & Inspection: normal respiratory effort, able to speak in complet e sentences, no respiratory distress and no use of accessory muscles Cardio: Rate: regular rate GI: Inspection: No distended Palpation (GI): Soft to palpation and no ntender Skin: Other: erythema left lower extremity from knee to foot; mild warmth and tenderness; no open wounds or drainage; mild erythema right ankle - both legs improving Neuro: General: patient oriented x3 and CN's II-XI intact bilaterally Extrem: Other: able to move all 4 extremities spontaneously Objective Data Active Medications Acetaminophen (Acetaminophen 325 Mg Tablet) 650 mg PO Q6H PRN PRN Reason: Pain, Mild (Pain Scale 1-3) Last Admin: 11/29/22 07:58 Dose: 650 mg Documented By: GIO Albuterol/Ipratropium (Albuterol/Iprat 2.5/0.5mg 3 Ml Ampul.Neb) 3 ml INHALE Q4H PRN PRN Reason: Wheezing Alprazolam (Alprazolam 0.5 Mg Tablet) 0.5 mg PO DAILY PRN PRN Reason: Anxiety Last Admin: 11/29/22 21:13 Dose: 0.5 mg Documented By: PAMELA Apixaban (Apixaban 5 Mg Tablet) 5 mg PO BID [facility] Last Admin: 11/30/22 08:17 Dose: 5 mg Documented By: GIO Atorvastatin Calcium (Atorvastatin Calcium 40 Mg Tablet) 40 mg PO BEDTIME [facility] Last Admin: 11/29/22 21:07 Dose: 40 mg Documented By: PAMELA Empagliflozin (Empagliflozin 25 Mg Tablet) 25 mg PO DAILY [facility] Last Admin: 11/30/22 08:17 Dose: 25 mg Documented By: GIO Gabapentin (Gabapentin 400 Mg Capsule) 400 mg PO QID [facility] Last Admin: 11/30/22 12:07 Dose: 400 mg Documented By: GIO Glucose (Glucose Gel 15 Gm Gel..Gram.) 15 gm PO Q15M PRN; Protocol PRN Reason: per Hypoglycemia Standing Ord. Dextrose (D10) 250 mls @ 750 mls/hr IV Q15M PRN; Protocol PRN Reason: per Hypoglycemia Standing Ord. Vancomycin HCl 1,000 mg/ (Sodium Chloride) 270 mls @ 270 mls/hr IV Q12H [facility] Last Infusion: 11/30/22 09:41 Dose: 0 mls/hr Documented By: GIO Insulin Glargine (Insulin Glargine,Hum.Rec.Anlog 100 Unit/Ml 10 Ml Vial) 20 unit SUBCUT DAILY [facility] Last Admin: 11/30/22 08:16 Dose: 20 unit Documented By: GIO Insulin Glargine (Insulin Glargine,Hum.Rec.Anlog 100 Unit/Ml 10 Ml Vial) 35 unit SUBCUT BEDTIME [facility] Last Admin: 11/29/22 21:06 Dose: 35 unit Documented By: PAMELA Insulin Human Lispro (Insulin Lispro 100 Unit/Ml 3 Ml Vial) 0 unit SUBCUT QIDACHS [facility]; Protocol Last Admin: 11/30/22 12:06 Dose: 4 unit Documented By: GIO Lisinopril (Lisinopril 5 Mg Tablet) 5 mg PO DAILY [facility]; Protocol Last Admin: 11/30/22 08:17 Dose: 5 mg Documented By: GIO Melatonin (Melatonin 3 Mg Tablet) 6 mg PO BEDTIME PRN PRN Reason: Insomnia Methadone HCl (Methadone Hcl 20 Mg/2 Ml Oral.Conc) 130 mg PO DAILY [facility] Last Admin: 11/30/22 08:15 Dose: 130 mg Documented By: GIO Nicotine (Nicotine 21 Mg Patch.Td24) 21 mg TRANSDERMA DAILY [facility] Last Admin: 11/30/22 08:17 Dose: 21 mg Documented By: GIO Ondansetron HCl (Ondansetron Hcl 4 Mg/2 Ml Vial) 4 mg IVPUSH Q8H PRN PRN Reason: Nausea and Vomiting Oxycodone HCl (Oxycodone Hcl Immed Release 5 Mg Tablet) 10 mg PO Q4H PRN PRN Reason: Pain, Mild (Pain Scale 1-3) Last Admin: 11/30/22 10:41 Dose: 10 mg Documented By: GIO Pharmacy Consult (Consult Rx Perform Med Rec) 1 each MISCELLANE ONCE PRN PRN Reason: Consult order Pharmacy Consult (Consult Rx Vancomycin Dosing) 1 each MISCELLANE DAILY PRN PRN Reason: Consult order Sodium Chloride (0.9 % Sodium Chloride Flush 3 Ml Syringe) 3 ml IVFLUSH QSHIFT [facility] Last Admin: 11/30/22 08:15 Dose: 3 ml Documented By: GIO Labs 11/29/22 08:55 11/30/22 08:52 Labs: Laboratory Results - last 24 hr 11/29/22 11/29/22 11/30/22 16:06 20:28 07:32 Estim Creat Clear Calc Estimated GFR POC Glucose 256 H 210 H 222 H Vancomycin Trough 11/30/22 11/30/22 11/30/22 08:52 08:52 08:52 Estim Creat Clear Calc Cancelled 97.2 Estimated GFR Cancelled > 60 POC Glucose Vancomycin Trough 29.3 H* 11/30/22 11:23 Estim Creat Clear Calc Estimated GFR POC Glucose 206 H Vancomycin Trough Microbiology Microbiology Results: Microbiology 11/28/22 14:18 Blood Culture - Preliminary Blood - Venous Strep agalactiae (Grp B) 11/28/22 16:21 Blood Culture - Preliminary Blood - Venous No growth after 24 hours. Assessment and Plan (1) Cellulitis of left leg: Status: Acute Plan This is a 52-year-old female with pertinent history of PE on Eliquis, opioid use disorder on methadone, essential hypertension, chronic hypoxic respiratory failure due to COPD, insulin-dependent diabetes mellitus presents to the emergency department for evaluation of leg swelling. Sepsis/bacteremia due to left lower extremity nonpurulent cellulitis initially treated with IV vancomycin, started on admission 11/28 (vanco trough elevated although was drawn during infusion) - will change to IV ceftriaxone blood cx 08/08 + growing Group B strep; repeat blood cultures pending No DVT on venous duplex. Enlarged lymph node noted in left inguinal region, follow outpatient. Arterial duplex no evidence of LE arterial disease Chronic hypoxemic respiratory failure secondary to COPD and PE Continue home supplemental oxygen, baseline 2 L.? On Eliquis.? DuoNebs p.r.n. Insulin-dependent diabetes mellitus with uncontrolled hyperglycemia ss, ada diet continue lantus hold metformin Essential hypertension Continue home antihypertensives Substance use disorder On methadone Elevated troponin Likely due to increased demand, type 2.? trops trending down repeat EKG DVT prophylaxis: On Eliquis attending - dr. garcia Full code Cardiac diet requires ongoing inpatient hospital stay for IV antibiotics Time Spent With Patient Time: Total time managing care of this patient today ____ minutes. Quality Stroke Does the patient have a stroke diagnosis?: No VTE Prior VTE?: No VTE Risk Level:: Medical - moderate - high VTE Device Contraindication: Treatment Not Indicated VTE Drug Contraindication: N/A - Med Ordered
[2022-11-30 15:18] VITALS: BP 128/65; PULSE 65; RESP 20; TEMP 36.2; O2SAT 100
[2022-11-30] MEDS: cefTRIAXone sodium 2 GM in 0.9 % Sodium Chloride 50 ML IV (15:32)
[2022-11-30 16:54] LABS: Glucose, Whole Blood 191 mg/dL (60-115)
[2022-11-30 19:46] LABS: Vancomycin Random 8.8 mcg/mL (15-20)
[2022-11-30 20:08] LABS: Glucose, Whole Blood 206 mg/dL (60-115)
[2022-11-30] MEDS: Atorvastatin Calcium 40 MG TABLET PO (20:40)
[2022-11-30] MEDS: ALPRAZolam 0.5 MG TABLET PO (20:40)
[2022-11-30] MEDS: Acetaminophen 325 MG TABLET 650 MG PO (20:40)
[2022-11-30] MEDS: Insulin Glargine,Hum.rec.anlog 100 UNIT/ML 10 ML VIAL 35 UNIT SUBCUT (20:41)
[2022-11-30 23:42] VITALS: BP 130/62; PULSE 65; RESP 18; TEMP 36.6; O2SAT 98
--- NOTE | 2022-12-01 | ECG_ITS ---
Test Reason : QTC CHECK Blood Pressure : / mmHG Vent. Rate : 057 BPM Atrial Rate : 057 BPM P-R Int : 138 ms QRS Dur : 086 ms QT Int : 482 ms P-R-T Axes : 067 018 044 degrees QTc Int : 469 ms Sinus bradycardia T wave abnormality, consider anterior ischemia Prolonged QT Abnormal ECG When compared with ECG of 30-NOV-2022 14:30, No significant change was found Referred By: Shaina Burt Electronically Signed By:Bautista Norman
[2022-12-01] MEDS: Acetaminophen 325 MG TABLET 650 MG PO (03:32)
[2022-12-01] MEDS: oxyCODONE HCl Immed Release 5 MG TABLET 10 MG PO ×3 (03:32→21:00)
--- NOTE | 2022-12-01 07:00 | CA_ITS ---
Transthoracic Echocardiogram Patient (Last, First, Middle): Marilou Siddiqui, Gender: Female Date of : 1970 Age: 52 Procedure Date: 12/01/2022 Procedure Type: Transthoracic Echocardiogram [place] [facility] [place]: 167.64 cm Weight: 95.71 kg BSA: 2.05 m2 Heart Rate: 61 bpm BP: 121 / 60 mmHg [employer] Engineer: SB Referring MD: Shaina VERNON Symptoms: chest pain, eval for WMA Study Quality: Fair w contrast ECG Rhythm: Sinus Conclusions: - Normal left ventricular size, thickness, systolic function, and wall motion. The visually estimated ejection fraction is between 55-60%. - Mildly increased right ventricular cavity size. There is mildly decreased right ventricular systolic function. Findings Procedure Information Contrast agent, definity, is being given per protocol without apparent complications. Left Ventricle Normal left ventricular size, thickness, systolic function, and wall motion. The visually estimated ejection fraction is between 55-60%. Right Ventricle Mildly increased right ventricular cavity size. There is mildly decreased right ventricular systolic function. Prior Study Comparison No significant change compared to prior study dated: 08/26/2022. Measurements 2D Linear Measurements IVSd: 0.65 0.6-0.9/0.6-1.0 cm LVIDd: 5.37 3.9-5.3/4.2-5.9 cm LVIDd Index: 2.62 2.4-3.2/2.2-3.1 cm/m2 LVIDs: 3.44 2.0-3.6 cm LVPWd: 0.74 0.7-1.1 cm LV Mass: 160.65 67-162/88-224 g LV Mass Index: 78.37 43-95/49-115 g/m2 LVOT Diam: 2.30 3.0+(-)1.3 cm 2D Systolic Function EF 4C: 67.30 >55% EF 2C: 60.30 >55% EF BiP: 62.20 >55% LVOT LVOT Pk Lenard: 1.02 LVOT Mn Lenard: 0.66 LVOT VTI: 0.20 LVOT Pk Grad: 4.00 LVOT Mn Grad: 2.00 LVOT Diam: 2.30 LVOT Area: 4.15 Updated in Other Vendor System with Status of Final Bautista Norman MD electronically signed on 12/01/2022 6:16:22 PM with status of Final
[2022-12-01 07:24] VITALS: BP 121/60; PULSE 58; RESP 16; TEMP 36.2; O2SAT 100
[2022-12-01 07:30] LABS: Glucose, Whole Blood 210 mg/dL (60-115)
[2022-12-01 07:30] LABS: Estimated Glomerular Filt Rate > 60
[2022-12-01 07:59] LABS: Anion Gap 17 (12-20)
[2022-12-01] MEDS: 0.9 % Sodium Chloride Flush 3 ML SYRINGE IVFLUSH ×3 (08:02→20:52)
[2022-12-01] MEDS: Nicotine 21 MG PATCH.TD24 TRANSDERMA (08:02)
[2022-12-01] MEDS: Insulin Lispro 100 UNIT/ML 3 ML VIAL SUBCUT ×4 (08:03→20:52)
[2022-12-01] MEDS: lisinopriL 5 MG TABLET PO (08:03)
[2022-12-01] MEDS: methADONE HCl 20 MG/2 ML ORAL.CONC 130 MG PO (08:03)
[2022-12-01] MEDS: Apixaban 5 MG TABLET PO ×2 (08:03→20:52)
[2022-12-01] MEDS: Insulin Glargine,Hum.rec.anlog 100 UNIT/ML 10 ML VIAL 20 UNIT SUBCUT (08:03)
[2022-12-01] MEDS: Gabapentin 400 MG CAPSULE PO ×4 (08:03→20:52)
[2022-12-01] MEDS: Empagliflozin 25 MG TABLET PO (08:12)
[2022-12-01 08:54] LABS: Blood Urea Nitrogen 20 mg/dL (9-16); Calcium 9.2 mg/dL (8.4-10.2); Carbon Dioxide 24 mmol/L (22-29); Chloride 104 mmol/L (96-108); Glucose Random 220 mg/dL (60-115); Potassium 4.6 mmol/L (3.3-5.1); Sodium 139 mmol/L (135-145)
--- NOTE | 2022-12-01 10:48 | HO.PM.IMPN ---
Subjective Subjective Date of Service: 12/01/22 Interval History: seen and examined this morning follow up for left leg cellulitis slowly improving, still with some pain in right leg. no fever, no chills no chest pain or sob. tolerating diet. Review of Systems Review of Systems: Yes all other systems are reviewed and are negative Constitutional Constitutional: Denies chills and Denies fever(s) Cardiovascular Cardiovascular: Denies chest pain, Denies palpitations and Denies dyspnea Respiratory Respiratory: Denies cough and Denies dyspnea Gastrointestinal Gastrointestinal: Denies abdominal pain, Reports constipation, Denies diarrhea, Denies nausea and Denies vomiting Endocrine Endocrine: Denies palpitations Physical Exam Vital Signs: Vital Signs: Last Vital Signs Temp 97.1 F 12/01/22 07:24 Pulse 58 12/01/22 07:24 Resp 16 12/01/22 07:24 BP 121/60 12/01/22 07:24 Pulse Ox 100 12/01/22 07:24 O2 Del Method Room Air 12/01/22 07:24 O2 Flow Rate 3 11/30/22 15:18 Oxygen Flow Rate 4 11/28/22 13:30 BMI result Body Mass Index 34.1 Const: General: cooperative, comfortable, no acute distress, alert and awake Nutritional Appearance: overweight Orientation/consciousness: patient oriented x3 Resp: Effort & Inspection: normal respiratory effort, able to speak in complete sentences, no respiratory distress and no use of accessory muscles Cardio: Rate: regular rate GI: Inspection: No distended Palpation (GI): Soft to palpation and nontender Skin: Other: erythema left lower extremity from knee to foot; mild warmth and tenderness; no open wounds or drainage; mild erythema right ankle - both legs improving Neuro: General: patient oriented x3 and CN's II-XI intact bilaterally Extrem: Other: able to move all 4 extremities spontaneously; mild edema LLE, no edema RLE Objective Data Active Medications Acetaminophen (Acetaminophen 325 Mg Tablet) 650 mg PO Q6H PRN PRN Reason: Pain, Mild (Pain Scale 1-3) Last Admin: 12/01/22 03:32 Dose: 650 mg Documented By: PAMELA Albuterol/Ipratropium (Albuterol/Iprat 2.5/0.5mg 3 Ml Ampul.Neb) 3 ml INHALE Q4H PRN PRN Reason: Wheezing Alprazolam (Alprazolam 0.5 Mg Tablet) 0.5 mg PO DAILY PRN PRN Reason: Anxiety Last Admin: 11/30/22 20:40 Dose: 0.5 mg Documented By: PAMELA Apixaban (Apixaban 5 Mg Tablet) 5 mg PO BID [facility] Last Admin: 12/01/22 08:03 Dose: 5 mg Documented By: HERNÁN Atorvastatin Calcium (Atorvastatin Calcium 40 Mg Tablet) 40 mg PO BEDTIME [facility] Last Admin: 11/30/22 20:40 Dose: 40 mg Documented By: PAMELA Docusate Sodium (Docusate Sodium 100 Mg Capsule) 100 mg PO DAILY [facility] Empagliflozin (Empagliflozin 25 Mg Tablet) 25 mg PO DAILY [facility] Last Admin: 12/01/22 08:12 Dose: 25 mg Documented By: HERNÁN Gabapentin (Gabapentin 400 Mg Capsule) 400 mg PO QID [facility] Last Admin: 12/01/22 08:03 Dose: 400 mg Documented By: HERNÁN Glucose (Glucose Gel 15 Gm Gel..Gram.) 15 gm PO Q15M PRN; Protocol PRN Reason: per Hypoglycemia Standing Ord. Dextrose (D10) 250 mls @ 750 mls/hr IV Q15M PRN; Protocol PRN Reason: per Hypoglycemia Standing Ord. Ceftriaxone Sodium 2 gm/ (Sodium Chloride) 50 mls @ 100 mls/hr IV Q24H [facility] Last Infusion: 11/30/22 16:10 Dose: 0 mls/hr Documented By: GIO Insulin Glargine (Insulin Glargine,Hum.Rec.Anlog 100 Unit/Ml 10 Ml Vial) 20 unit SUBCUT DAILY [facility] Last Admin: 12/01/22 08:03 Dose: 20 unit Documented By: HERNÁN Insulin Glargine (Insulin Glargine,Hum.Rec.Anlog 100 Unit/Ml 10 Ml Vial) 35 unit SUBCUT BEDTIME [facility] Last Admin: 11/30/22 20:41 Dose: 35 unit Documented By: PAMELA Insulin Human Lispro (Insulin Lispro 100 Unit/Ml 3 Ml Vial) 0 unit SUBCUT QIDACHS [facility]; Protocol Last Admin: 12/01/22 08:03 Dose: 4 unit Documented By: HERNÁN Lisinopril (Lisinopril 5 Mg Tablet) 5 mg PO DAILY [facility]; Protocol Last Admin: 12/01/22 08:03 Dose: 5 mg Documented By: HERNÁN Melatonin (Melatonin 3 Mg Tablet) 6 mg PO BEDTIME PRN PRN Reason: Insomnia Methadone HCl (Methadone Hcl 20 Mg/2 Ml Oral.Conc) 130 mg PO DAILY [facility] Last Admin: 12/01/22 08:03 Dose: 130 mg Documented By: HERNÁN Nicotine (Nicotine 21 Mg Patch.Td24) 21 mg TRANSDERMA DAILY [facility] Last Admin: 12/01/22 08:02 Dose: 21 mg Documented By: HERNÁN Ondansetron HCl (Ondansetron Hcl 4 Mg/2 Ml Vial) 4 mg IVPUSH Q8H PRN PRN Reason: Nausea and Vomiting Oxycodone HCl (Oxycodone Hcl Immed Release 5 Mg Tablet) 10 mg PO Q4H PRN PRN Reason: Pain, Mild (Pain Scale 1-3) Last Admin: 12/01/22 08:03 Dose: 10 mg Documented By: HERNÁN Pharmacy Consult (Consult Rx Perform Med Rec) 1 each MISCELLANE ONCE PRN PRN Reason: Consult order Polyethylene Glycol (Polyethylene Glycol 3350 17 Gm Powd.Pack) 17 gm PO DAILY PRN PRN Reason: Constipation Senna (Sennosides 8.6 Mg Tablet) 8.6 mg PO BEDTIME [facility] Sodium Chloride (0.9 % Sodium Chloride Flush 3 Ml Syringe) 3 ml IVFLUSH QSHIFT [facility] Last Admin: 12/01/22 08:02 Dose: 3 ml Documented By: HERNÁN Labs 11/29/22 08:55 12/01/22 06:46 Labs: Laboratory Results - last 24 hr 11/30/22 11/30/22 11/30/22 08:52 11:23 16:50 Anion Gap Estim Creat Clear Calc Cancelled Estimated GFR Cancelled POC Glucose 206 H 191 H Random Glucose Calcium Random Vancomycin 11/30/22 11/30/22 12/01/22 19:05 19:53 06:46 Anion Gap 17 Estim Creat Clear Calc 96.0 Estimated GFR > 60 POC Glucose 206 H Random Glucose 220 H Calcium 9.2 D Random Vancomycin 8.8 L 12/01/22 07:23 Anion Gap Estim Creat Clear Calc Estimated GFR POC Glucose 210 H Random Glucose Calcium Random Vancomycin Microbiology Microbiology Results: Microbiology 11/28/22 14:18 Blood Culture - Final Blood - Venous Strep agalactiae (Grp B) 11/28/22 16:21 Blood Culture - Preliminary Blood - Venous No growth after 48 hours. Assessment and Plan (1) Cellulitis of left leg: Status: Acute (2) Bacteremia: Status: Acute Plan This is a 52-year-old female with pertinent history of PE on Eliquis, opioid use disorder on methadone, essential hypertension, chronic hypoxic respiratory failure due to COPD, insulin-dependent diabetes mellitus presents to the emergency department for evaluation of leg swelling. Sepsis/bacteremia from left lower extremity nonpurulent cellulitis due to diabetes initially treated with IV vancomycin, started on admission 11/28 (vanco trough elevated but was drawn during infusion and therefor erroneous) blood cx 08/08 + growing Group B strep; will change to IV ceftriaxone - will likely need 14 days abx No DVT on venous duplex. Enlarged lymph node noted in left inguinal region, follow outpatient. Arterial duplex no evidence of LE arterial disease Repeat blood cultures pending Prolonged qtc likely related to methadone use avoid medications that prolong Qt will check electrolytes chest pain Elevated troponin Likely due to increased demand, type 2.? trops trending down, although does have some ekg changes will consult cardiology limited echo pending Chronic hypoxemic respiratory failure secondary to COPD and PE Continue home supplemental oxygen, baseline 2 L.? On Eliquis.? DuoNebs p.r.n. Insulin-dependent diabetes mellitus with hyperglycemia ss, ada diet continue lantus hold metformin Essential hypertension Continue home antihypertensives Substance use disorder On methadone DVT prophylaxis:Peter attending - Dr. garcia Full code requires ongoing inpatient hospital stay for IV antibiotics for cellulitis/bacteremia and specialist consultation for chest pain/elevated cardiac enzymes Time Spent With Patient Time: Total time managing care of this patient today ____ minutes. Quality Stroke Does the patient have a stroke diagnosis?: No VTE Prior VTE?: No VTE Risk Level:: Medical - moderate - high VTE Device Contraindication: Treatment Not Indicated VTE Drug Contraindication: N/A - Med Ordered
[2022-12-01 11:11] LABS: Glucose, Whole Blood 268 mg/dL (60-115)
--- NOTE | 2022-12-01 11:34 | PM.CNCAR ---
History of Present Illness History of Present Illness Date of Service: 12/01/22 Requesting physician: Shaina Burt Chief complaint: Cellulitis, CP, abnormal trop Narrative: 52-year-old female presenting for left lower extremity cellulitis. She has background history of diabetes and previous right foot transmetatarsal amputation. She said she started noticing some changes in the skin on Monday but overnight the symptoms worsened significantly and she when he entered in the hospital yesterday with significant cellulitis the left lower extremity. She has been on antibiotics. She has remote history of drug use. She said she has no veins in her arms and whenever she comes to hospital she is very anxious as she gets stuck multiple times before an IV can be placed. She said she was quite nervous and anxious coming in and was feeling some pressure-like feeling in her chest. She has not felt this before and does not feel similar discomfort on a regular basis. She said the symptoms relieved as she entered the hospital and she has not had any further discomfort in her chest. I reviewed her EKGs during her previous admissions and at 1 stage she had right bundle-branch block which I think was in the setting of pulmonary embolism in August. Similarly she had inferior Q-waves and concern for inferior infarct noted on previous EKGs. On current admission her initial EKG had T-wave inversions and ST depressions in the lateral leads along with inferior Q-waves and mild ST elevations. Repeat EKG is showing nonspecific T-wave inversions in the precordial leads with prolonged QT interval. She is on methadone. She is saying she has no chest discomfort or shortness of breath. She is saying she has not been taking care of self but is beginning to be more responsible for her health and wants to feel better. She smokes 1 cigarette per day. [facility] Past Medical History Medical History Acute respiratory failure with hypoxia Anxiety Chronic respiratory failure Diabetes NSTEMI (non-ST elevated myocardial infarction) Obesity (BMI 35.0-39.9 without comorbidity) Opioid use disorder Osteomyelitis Pneumonitis Pulmonary nodules Substance abuse Surgical History Surgical History S/P amputation of foot Status post transmetatarsal amputation of right foot (09/24/21) Social History Social History Household Members: Family Housing: Apartment Do you presently have visiting nurse or other home services: No Alcohol intake: never Patient Tobacco Use Status: Current someday Tobacco user Tobacco use type: Cigarette Cigarette Packs Per Day: 1 Cigarettes Per Day: 1 e-Cigarette/Vaping Use: Currently Using Second Hand Smoke Exposure: Yes Substance Use Type: Marijuana Advance Directives Date on File: 09/22/21 service: No Current occupational status: unemployed Meds Allergies Allergy/AdvReac Type Severity Reaction Status Date / Time prednisone [PREDNISONE] Allergy Unknown RASH Verified 11/28/22 13:35 Active Medications: Current Medications Acetaminophen (Acetaminophen 325 Mg Tablet) 650 mg PO Q6H PRN PRN Reason: Pain, Mild (Pain Scale 1-3) Last Admin: 12/01/22 03:32 Dose: 650 mg Albuterol/Ipratropium (Albuterol/Iprat 2.5/0.5mg 3 Ml Ampul.Neb) 3 ml INHALE Q4H PRN PRN Reason: Wheezing Alprazolam (Alprazolam 0.5 Mg Tablet) 0.5 mg PO DAILY PRN PRN Reason: Anxiety Last Admin: 11/30/22 20:40 Dose: 0.5 mg Apixaban (Apixaban 5 Mg Tablet) 5 mg PO BID [facility] Last Admin: 12/01/22 08:03 Dose: 5 mg Aspirin (Aspirin Enteric Coated 81 Mg Tablet.) 81 mg PO DAILY [facility] Atorvastatin Calcium (Atorvastatin Calcium 40 Mg Tablet) 40 mg PO BEDTIME [facility] Last Admin: 11/30/22 20:40 Dose: 40 mg Docusate Sodium (Docusate Sodium 100 Mg Capsule) 100 mg PO DAILY [facility] Empagliflozin (Empagliflozin 25 Mg Tablet) 25 mg PO DAILY [facility] Last Admin: 12/01/22 08:12 Dose: 25 mg Gabapentin (Gabapentin 400 Mg Capsule) 400 mg PO QID [facility] Last Admin: 12/01/22 08:03 Dose: 400 mg Glucose (Glucose Gel 15 Gm Gel..Gram.) 15 gm PO Q15M PRN; Protocol PRN Reason: per Hypoglycemia Standing Ord. Dextrose (D10) 250 mls @ 750 mls/hr IV Q15M PRN; Protocol PRN Reason: per Hypoglycemia Standing Ord. Ceftriaxone Sodium 2 gm/ (Sodium Chloride) 50 mls @ 100 mls/hr IV Q24H [facility] Last Infusion: 11/30/22 16:10 Dose: Infused Insulin Glargine (Insulin Glargine,Hum.Rec.Anlog 100 Unit/Ml 10 Ml Vial) 20 unit SUBCUT DAILY [facility] Last Admin: 12/01/22 08:03 Dose: 20 unit Insulin Glargine (Insulin Glargine,Hum.Rec.Anlog 100 Unit/Ml 10 Ml Vial) 35 unit SUBCUT BEDTIME [facility] Last Admin: 11/30/22 20:41 Dose: 35 unit Insulin Human Lispro (Insulin Lispro 100 Unit/Ml 3 Ml Vial) 0 unit SUBCUT QIDACHS [facility]; Protocol Last Admin: 12/01/22 08:03 Dose: 4 unit Lisinopril (Lisinopril 5 Mg Tablet) 5 mg PO DAILY [facility]; Protocol Last Admin: 12/01/22 08:03 Dose: 5 mg Melatonin (Melatonin 3 Mg Tablet) 6 mg PO BEDTIME PRN PRN Reason: Insomnia Methadone HCl (Methadone Hcl 20 Mg/2 Ml Oral.Conc) 130 mg PO DAILY [facility] Last Admin: 12/01/22 08:03 Dose: 130 mg Nicotine (Nicotine 21 Mg Patch.Td24) 21 mg TRANSDERMA DAILY [facility] Last Admin: 12/01/22 08:02 Dose: 21 mg Oxycodone HCl (Oxycodone Hcl Immed Release 5 Mg Tablet) 10 mg PO Q4H PRN PRN Reason: Pain, Mild (Pain Scale 1-3) Last Admin: 12/01/22 08:03 Dose: 10 mg Pharmacy Consult (Consult Rx Perform Med Rec) 1 each MISCELLANE ONCE PRN PRN Reason: Consult order Polyethylene Glycol (Polyethylene Glycol 3350 17 Gm Powd.Pack) 17 gm PO DAILY PRN PRN Reason: Constipation Senna (Sennosides 8.6 Mg Tablet) 8.6 mg PO BEDTIME [facility] Sodium Chloride (0.9 % Sodium Chloride Flush 3 Ml Syringe) 3 ml IVFLUSH QSHIFT [facility] Last Admin: 12/01/22 08:02 Dose: 3 ml Home Medications Medication Instructions Recorded Confirmed Last Taken Type gabapentin 400 mg capsule 400 mg PO QID 09/21/21 11/28/22 11/28/22 History acetaminophen 500 mg tablet 2 caplet PO Q6H PRN mild pain 08/24/22 11/28/22 Unknown History methadone 10 mg/mL oral concentrate 130 mg PO DAILY 08/24/22 11/29/22 11/28/22 History alprazolam 0.5 mg tablet 0.5 mg PO DAILY PRN Anxiety 11/28/22 11/28/22 Unknown History atorvastatin 40 mg tablet 40 mg PO BEDTIME 11/28/22 11/28/22 11/27/22 History empagliflozin 25 mg tablet 25 mg PO DAILY 11/28/22 11/28/22 11/28/22 History (Jardiance) insulin glargine 100 unit/mL (3 20 unit subcut DAILY 11/28/22 11/28/22 11/28/22 History mL) subcutaneous pen (Lantus Solostar U-100 Insulin) insulin glargine 100 unit/mL (3 35 unit subcut BEDTIME 11/28/22 11/28/22 11/27/22 History mL) subcutaneous pen (Lantus Solostar U-100 Insulin) Physical Exam Vital Signs: Vital Signs: Last Vital Signs Temp 97.1 F 12/01/22 07:24 Pulse 58 12/01/22 07:24 Resp 16 12/01/22 07:24 BP 121/60 12/01/22 07:24 Pulse Ox 100 12/01/22 07:24 O2 Del Method Room Air 12/01/22 07:24 O2 Flow Rate 3 11/30/22 15:18 Oxygen Flow Rate 4 11/28/22 13:30 BMI result Body Mass Index 34.1 GENERAL APPEARANCE: in no acute distress, pleasant. NECK: no carotid bruit, no jugular venous distention. SKIN: Cellulitis left lower extremity up to the knee. Small ulcer on the sole of the foot. HEART: no murmurs, regular rate and rhythm. LUNGS: clear to auscultation bilaterally. ABDOMEN: soft, nontender. EXTREMITIES: no edema. PERIPHERAL PULSES: equal. NEUROLOGIC: No gross deficits, AAO X 3 Objective Labs and Meds 11/29/22 08:55 12/01/22 06:46 Lab results: Laboratory Results - last 24 hr 11/30/22 11/30/22 11/30/22 11:23 16:50 19:05 Sodium Potassium Chloride Carbon Dioxide Anion Gap BUN Creatinine Estim Creat Clear Calc Estimated GFR POC Glucose 206 H 191 H Random Glucose Calcium Magnesium Random Vancomycin 8.8 L 11/30/22 12/01/22 12/01/22 19:53 06:46 07:23 Sodium 139 Potassium 4.6 D Chloride 104 Carbon Dioxide 24 Anion Gap 17 BUN 20 H Creatinine 0.80 Estim Creat Clear Calc 96.0 Estimated GFR > 60 POC Glucose 206 H 210 H Random Glucose 220 H Calcium 9.2 D Magnesium 2.0 Random Vancomycin 12/01/22 11:06 Sodium Potassium Chloride Carbon Dioxide Anion Gap BUN Creatinine Estim Creat Clear Calc Estimated GFR POC Glucose 268 H Random Glucose Calcium Magnesium Random Vancomycin Assessment and Plan (1) Cellulitis of left leg: Status: Acute (2) Elevated troponin: Status: Acute (3) Chest pain: Status: Acute Plan Pleasant 52-year-old female who is here for cellulitis of left lower extremity. She is on IV antibiotics. She also had some pressure-like feeling in the chest. She is saying she is very anxious as she is a hard stick because of previous IV drug abuse. She said while she was anxious and nervous she had some pressure-like feeling in her chest which resolved as she got admitted to the hospital and since then she has not had any further symptoms. Her EKGs have some abnormalities but she was noticed to have Q-waves in the inferior leads in August 2022 when she presented with pulmonary embolism. She also had intermittent right bundle-branch block with some ST depressions in the lateral leads. She has mildly abnormal troponin levels. She is on Eliquis for anticoagulation for pulmonary embolism which happen in August. She had RV dysfunction on the previous echocardiogram. She has risk factors for coronary disease and I think she needs Lexiscan as she improves from her infectious issues to rule out underlying obstructive coronary disease. Add baby aspirin 81 mg daily. Repeat EKG to see if there are any evolving changes. Check echocardiogram to assess for wall motion abnormality. Overall it appears that she had some anxiety but clearly she had some dynamic EKG changes 2. Having said that her EKG has not been normal since August. We will follow along with you. Thank you for allowing me to participate in the care of your patient. Please feel free to contact me if you have any questions. Time Spent With Patient Time: Total time managing care of this patient today ____ minutes. Procedures Date of Service Date of Service: 12/01/22
[2022-12-01] MEDS: Aspirin Enteric Coated 81 MG TABLET.DR PO (12:06)
[2022-12-01] MEDS: cefTRIAXone sodium 2 GM in 0.9 % Sodium Chloride 50 ML IV (14:11)
[2022-12-01 15:05] VITALS: BP 117/56; PULSE 55; RESP 20; TEMP 36.8; O2SAT 100
[2022-12-01 16:15] LABS: Glucose, Whole Blood 179 mg/dL (60-115)
[2022-12-01 19:39] LABS: Glucose, Whole Blood 226 mg/dL (60-115)
[2022-12-01] MEDS: Insulin Glargine,Hum.rec.anlog 100 UNIT/ML 10 ML VIAL 35 UNIT SUBCUT (20:52)
[2022-12-01] MEDS: Sennosides 8.6 MG TABLET PO (20:52)
[2022-12-01] MEDS: Atorvastatin Calcium 40 MG TABLET PO (20:52)
[2022-12-01] MEDS: ALPRAZolam 0.5 MG TABLET PO (21:00)
[2022-12-01 23:10] VITALS: BP 139/71; PULSE 64; RESP 20; TEMP 36.7; O2SAT 96
[2022-12-02] MEDS: oxyCODONE HCl Immed Release 5 MG TABLET 10 MG PO ×4 (02:57→21:00)
[2022-12-02 05:29] LABS: Creatinine Clr Calc Pharmacy 85.3; Estimated Glomerular Filt Rate > 60
[2022-12-02 07:24] VITALS: BP 130/66; PULSE 60; RESP 20; TEMP 36.5; O2SAT 97
[2022-12-02 07:33] LABS: Glucose, Whole Blood 226 mg/dL (60-115)
[2022-12-02] MEDS: Insulin Lispro 100 UNIT/ML 3 ML VIAL SUBCUT ×4 (07:55→21:02)
[2022-12-02] MEDS: Insulin Glargine,Hum.rec.anlog 100 UNIT/ML 10 ML VIAL 20 UNIT SUBCUT (07:56)
[2022-12-02] MEDS: Nicotine 21 MG PATCH.TD24 TRANSDERMA (07:57)
[2022-12-02] MEDS: Empagliflozin 25 MG TABLET PO (07:58)
[2022-12-02] MEDS: lisinopriL 5 MG TABLET PO (07:58)
[2022-12-02] MEDS: Apixaban 5 MG TABLET PO ×2 (07:58→21:01)
[2022-12-02] MEDS: Gabapentin 400 MG CAPSULE PO ×4 (07:58→21:00)
[2022-12-02] MEDS: Aspirin Enteric Coated 81 MG TABLET.DR PO (07:58)
[2022-12-02] MEDS: methADONE HCl 20 MG/2 ML ORAL.CONC 130 MG PO (07:58)
[2022-12-02] MEDS: Docusate Sodium 100 MG CAPSULE PO (07:58)
[2022-12-02] MEDS: 0.9 % Sodium Chloride Flush 3 ML SYRINGE IVFLUSH ×3 (08:01→21:03)
--- NOTE | 2022-12-02 11:05 | MHC.CM.PN ---
EMR REVIEWED, PER HOSPITALIST PT WILL NEED ONE MORE DAY IV ABX AND CARDIO TO DETERMINE IF PT WILL NEED STRESS TEST PRIOR TO D/C, CM WILL CONT TO FOLLOW D/C NEEDS.
[2022-12-02 11:19] LABS: Glucose, Whole Blood 222 mg/dL (60-115)
--- NOTE | 2022-12-02 12:19 | P.PNIM_ITS ---
Subjective Subjective Date of Service: 12/02/22 Interval History: seen and examined this morning follow up for cellulitis slowly improving no overnight events Review of Systems Review of Systems: Yes all other systems are reviewed and are negative Constitutional Constitutional: Denies chills and Denies fever(s) ENT Ears, Nose, Mouth, and Throat: Denies dizziness Cardiovascular Cardiovascular: Denies chest pain, Denies palpitations and Denies dyspnea Respiratory Respiratory: Denies cough and Denies dyspnea Gastrointestinal Gastrointestinal: Denies abdominal pain Neurologic Neurologic: Denies dizziness Endocrine Endocrine: Denies palpitations Physical Exam Vital Signs: Vital Signs: Last Vital Signs Temp 97.7 F 12/02/22 07:24 Pulse 60 12/02/22 07:24 Resp 20 12/02/22 07:24 BP 130/66 12/02/22 07:24 Pulse Ox 97 12/02/22 07:24 O2 Del Method Room Air 12/02/22 07:24 O2 Flow Rate 3 11/30/22 15:18 Oxygen Flow Rate 4 11/28/22 13:30 BMI result Body Mass Index 34.1 Const: General: cooperative, comfortable, no acute distress, alert and awake Nutritional Appearance: overweight Orientation/consciousness: patient oriented x3 Resp: Effort & Inspection: normal respiratory effort, able to speak in complete sentences, no respiratory distress and no use of accessory muscles Cardio: Rate: regular rate GI: Inspection: No distended Palpation (GI): Soft to palpation and nontender Skin: Other: improvement in erythema of left leg, less tender Neuro: General: patient oriented x3 and CN's II-XI intact bilaterally Extrem: Other: able to move all 4 extremities spontaneously; mild edema LLE, no edema RLE Objective Data Active Medications Acetaminophen (Acetaminophen 325 Mg Tablet) 650 mg PO Q6H PRN PRN Reason: Pain, Mild (Pain Scale 1-3) Last Admin: 12/01/22 03:32 Dose: 650 mg Documented By: PAMELA Albuterol/Ipratropium (Albuterol/Iprat 2.5/0.5mg 3 Ml Ampul.Neb) 3 ml INHALE Q4H PRN PRN Reason: Wheezing Alprazolam (Alprazolam 0.5 Mg Tablet) 0.5 mg PO DAILY PRN PRN Reason: Anxiety Last Admin: 12/01/22 21:00 Dose: 0.5 mg Documented By: NAS Apixaban (Apixaban 5 Mg Tablet) 5 mg PO BID [facility] Last Admin: 12/02/22 07:58 Dose: 5 mg Documented By: HERNÁN Aspirin (Aspirin Enteric Coated 81 Mg Tablet.Dr) 81 mg PO DAILY [facility] Last Admin: 12/02/22 07:58 Dose: 81 mg Documented By: HERNÁN Atorvastatin Calcium (Atorvastatin Calcium 40 Mg Tablet) 40 mg PO BEDTIME [facility] Last Admin: 12/01/22 20:52 Dose: 40 mg Documented By: NAS Docusate Sodium (Docusate Sodium 100 Mg Capsule) 100 mg PO DAILY [facility] Last Admin: 12/02/22 07:58 Dose: 100 mg Documented By: HERNÁN Empagliflozin (Empagliflozin 25 Mg Tablet) 25 mg PO DAILY [facility] Last Admin: 12/02/22 07:58 Dose: 25 mg Documented By: HERNÁN Gabapentin (Gabapentin 400 Mg Capsule) 400 mg PO QID [facility] Last Admin: 12/02/22 12:11 Dose: 400 mg Documented By: HERNÁN Glucose (Glucose Gel 15 Gm Gel..Gram.) 15 gm PO Q15M PRN; Protocol PRN Reason: per Hypoglycemia Standing Ord. Dextrose (D10) 250 mls @ 750 mls/hr IV Q15M PRN; Protocol PRN Reason: per Hypoglycemia Standing Ord. Ceftriaxone Sodium 2 gm/ (Sodium Chloride) 50 mls @ 100 mls/hr IV Q24H [facility] Last Infusion: 12/01/22 14:44 Dose: 0 mls/hr Documented By: HERNÁN Insulin Glargine (Insulin Glargine,Hum.Rec.Anlog 100 Unit/Ml 10 Ml Vial) 20 unit SUBCUT DAILY [facility] Last Admin: 12/02/22 07:56 Dose: 20 unit Documented By: HERNÁN Insulin Glargine (Insulin Glargine,Hum.Rec.Anlog 100 Unit/Ml 10 Ml Vial) 35 unit SUBCUT BEDTIME [facility] Last Admin: 12/01/22 20:52 Dose: 35 unit Documented By: NAS Insulin Human Lispro (Insulin Lispro 100 Unit/Ml 3 Ml Vial) 0 unit SUBCUT QIDACHS [facility]; Protocol Last Admin: 12/02/22 12:10 Dose: 4 unit Documented By: HERNÁN Lisinopril (Lisinopril 5 Mg Tablet) 5 mg PO DAILY [facility]; Protocol Last Admin: 12/02/22 07:58 Dose: 5 mg Documented By: HERNÁN Melatonin (Melatonin 3 Mg Tablet) 6 mg PO BEDTIME PRN PRN Reason: Insomnia Methadone HCl (Methadone Hcl 20 Mg/2 Ml Oral.Conc) 130 mg PO DAILY [facility] Last Admin: 12/02/22 07:58 Dose: 130 mg Documented By: HERNÁN Nicotine (Nicotine 21 Mg Patch.Td24) 21 mg TRANSDERMA DAILY [facility] Last Admin: 12/02/22 07:57 Dose: 21 mg Documented By: HERNÁN Oxycodone HCl (Oxycodone Hcl Immed Release 5 Mg Tablet) 10 mg PO Q4H PRN PRN Reason: Pain, Mild (Pain Scale 1-3) Last Admin: 12/02/22 08:05 Dose: 10 mg Documented By: HERNÁN Pharmacy Consult (Consult Rx Perform Med Rec) 1 each MISCELLANE ONCE PRN PRN Reason: Consult order Polyethylene Glycol (Polyethylene Glycol 3350 17 Gm Powd.Pack) 17 gm PO DAILY PRN PRN Reason: Constipation Senna (Sennosides 8.6 Mg Tablet) 8.6 mg PO BEDTIME [facility] Last Admin: 12/01/22 20:52 Dose: 8.6 mg Documented By: NAS Sodium Chloride (0.9 % Sodium Chloride Flush 3 Ml Syringe) 3 ml IVFLUSH QSHIFT [facility] Last Admin: 12/02/22 08:01 Dose: 3 ml Documented By: HERNÁN Labs 11/29/22 08:55 12/02/22 05:03 Labs: Laboratory Results - last 24 hr 12/01/22 12/01/22 12/02/22 16:11 19:34 05:03 Estim Creat Clear Calc 85.3 Estimated GFR > 60 POC Glucose 179 H 226 H 12/02/22 12/02/22 07:23 11:15 Estim Creat Clear Calc Estimated GFR POC Glucose 226 H 222 H Microbiology Microbiology Results: Microbiology 11/30/22 14:29 Blood Culture - Preliminary Blood - Venous No growth after 24 hours. 11/30/22 14:29 Blood Culture - Preliminary Blood - Venous No growth after 24 hours. 11/28/22 14:18 Blood Culture - Final Blood - Venous Strep agalactiae (Grp B) Assessment and Plan (1) Chest pain: Status: Acute (2) Bacteremia: Status: Acute (3) Cellulitis of left leg: Status: Acute Plan This is a 52-year-old female with pertinent history of PE on Eliquis, opioid use disorder on methadone, essential hypertension, chronic hypoxic respiratory failure due to COPD, insulin-dependent diabetes mellitus presents to the emergency department for evaluation of leg swelling. Sepsis/bacteremia from left lower extremity nonpurulent cellulitis due to diabetes initially treated with IV vancomycin, started on admission 11/28 (vanco trough elevated but was drawn during infusion and therefor erroneous) blood cx 08/08 + growing Group B strep; abx changed to IV ceftriaxone 11/30 - will likely need 14 days abx No DVT on venous duplex. Enlarged lymph node noted in left inguinal region, follow outpatient. Arterial duplex no evidence of LE arterial disease Repeat blood cultures negative Prolonged qtc likely related to methadone use avoid medications that prolong Qt electrolytes ok, repeat ekg showed improvement in qt chest pain Elevated troponin Likely due to increased demand, type 2.? trops trending down, although does have some ekg changes seen by cardiology, rec asa and stress test, likely as outpatient echo done - no wma Chronic hypoxemic respiratory failure secondary to COPD and PE Continue home supplemental oxygen 2L at bedtime and prn with activity On Eliquis for PE DuoNebs p.r.n. Insulin-dependent diabetes mellitus with hyperglycemia ss, ada diet continue lantus hold metformin Essential hypertension Continue home antihypertensives Substance use disorder On methadone DVT prophylaxis:Peter attending - Dr. garcia Full code requires ongoing inpatient hospital stay for IV antibiotics for cellulitis/bacteremia Time Spent With Patient Time: Total time managing care of this patient today ____ minutes. Quality Stroke Does the patient have a stroke diagnosis?: No VTE Prior VTE?: No VTE Risk Level:: Medical - moderate - high VTE Device Contraindication: Treatment Not Indicated VTE Drug Contraindication: N/A - Med Ordered
[2022-12-02] MEDS: Clopidogrel Bisulfate 300 MG TABLET PO (14:00)
[2022-12-02] MEDS: cefTRIAXone sodium 2 GM in 0.9 % Sodium Chloride 50 ML IV (14:00)
[2022-12-02 15:06] VITALS: BP 145/63; PULSE 64; RESP 20; TEMP 37; O2SAT 100
[2022-12-02 16:00] LABS: Glucose, Whole Blood 167 mg/dL (60-115)
[2022-12-02 20:43] LABS: Glucose, Whole Blood 373 mg/dL (60-115)
[2022-12-02] MEDS: ALPRAZolam 0.5 MG TABLET PO (21:00)
[2022-12-02] MEDS: Atorvastatin Calcium 40 MG TABLET PO (21:01)
[2022-12-02] MEDS: Sennosides 8.6 MG TABLET PO (21:01)
[2022-12-02] MEDS: Insulin Glargine,Hum.rec.anlog 100 UNIT/ML 10 ML VIAL 35 UNIT SUBCUT (21:01)
--- NOTE | 2022-12-02 23:56 | PC.NURSE ---
HS POC was 373, Dr Yates messaged via [facility], no new orders.patient covered per sliding scale.
[2022-12-03] VITALS: BP 133/71; PULSE 57; RESP 20; TEMP 36.1; O2SAT 99
[2022-12-03] MEDS: oxyCODONE HCl Immed Release 5 MG TABLET 10 MG PO ×4 (02:50→22:24)
[2022-12-03 06:45] LABS: Creatinine Clr Calc Pharmacy 87.2; Estimated Glomerular Filt Rate > 60
--- NOTE | 2022-12-03 06:57 | PM.PNCARD ---
Subjective Subjective Date of Service: 12/02/22 Interval history: Seen and examined at bedside 12/02/2022. No chest discomfort. Left lower extremity cellulitis on antibiotics. EKG reviewed which showed anterior T-wave inversions. Echocardiography did not show any wall motion abnormalities. Physical Exam Vital Signs: Last Vital Signs Temp 97 F 12/03/22 00:00 Pulse 57 12/03/22 00:00 Resp 20 12/03/22 00:00 BP 133/71 12/03/22 00:00 Pulse Ox 99 12/03/22 00:00 O2 Del Method Nasal Cannula 12/03/22 00:00 O2 Flow Rate 3 12/03/22 00:00 Oxygen Flow Rate 4 11/28/22 13:30 BMI result Body Mass Index 34.1 GENERAL APPEARANCE: in no acute distress, pleasant. NECK: no carotid bruit, no jugular venous distention. SKIN: Cellulitis left lower extremity up to the knee. Small ulcer on the sole of the foot. HEART: no murmurs, regular rate and rhythm. LUNGS: clear to auscultation bilaterally. ABDOMEN: soft, nontender. EXTREMITIES: no edema. PERIPHERAL PULSES: equal. NEUROLOGIC: No gross deficits, AAO X 3 Objective Labs and Meds 11/29/22 08:55 12/03/22 06:07 Lab results: Laboratory Results - last 24 hr 12/02/22 12/02/22 12/02/22 07:23 11:15 15:54 Creatinine Estim Creat Clear Calc Estimated GFR POC Glucose 226 H 222 H 167 H 12/02/22 12/03/22 20:36 06:07 Creatinine 0.88 Estim Creat Clear Calc 87.2 Estimated GFR > 60 POC Glucose 373 H* Progress Note: A&P Assessment and plan (1) Chest pain: Status: Acute (2) Cellulitis of left leg: Status: Acute Plan [age] year female with risk factor for coronary disease presenting for left lower extremity cellulitis on IV antibiotics. She also had mild chest discomfort. He states he has shown precordial T-wave inversions with prolonged QT interval. She is also on methadone. She has been chest pain-free throughout the hospitalization. She is currently on Eliquis for recent pulmonary embolism. We have stop the aspirin and change her to Plavix. She will need Lexiscan on Monday. Thank you for allowing me to participate in the care of your patient. Please feel free to contact me if you have any questions. Time Spent With Patient Time: Total time managing care of this patient today ____ minutes. Progress Note: Quality Stroke Does the patient have a stroke diagnosis?: No Procedures Date of Service Date of Service: 12/02/22
[2022-12-03 07:38] VITALS: BP 120/66; PULSE 60; RESP 18; TEMP 36.8; O2SAT 100
[2022-12-03 07:50] LABS: Glucose, Whole Blood 280 mg/dL (60-115)
[2022-12-03] MEDS: Nicotine 21 MG PATCH.TD24 TRANSDERMA (08:00)
[2022-12-03] MEDS: Insulin Lispro 100 UNIT/ML 3 ML VIAL SUBCUT ×4 (08:00→20:00)
[2022-12-03] MEDS: Clopidogrel Bisulfate 75 MG TABLET PO (08:01)
[2022-12-03] MEDS: Docusate Sodium 100 MG CAPSULE PO (08:01)
[2022-12-03] MEDS: Apixaban 5 MG TABLET PO ×2 (08:01→20:02)
[2022-12-03] MEDS: Gabapentin 400 MG CAPSULE PO ×4 (08:01→20:02)
[2022-12-03] MEDS: lisinopriL 5 MG TABLET PO (08:01)
[2022-12-03] MEDS: Insulin Glargine,Hum.rec.anlog 100 UNIT/ML 10 ML VIAL 20 UNIT SUBCUT (08:03)
[2022-12-03] MEDS: methADONE HCl 20 MG/2 ML ORAL.CONC 130 MG PO (08:03)
[2022-12-03] MEDS: 0.9 % Sodium Chloride Flush 3 ML SYRINGE IVFLUSH ×3 (08:03→20:08)
[2022-12-03] MEDS: Empagliflozin 25 MG TABLET PO (08:05)
[2022-12-03 11:17] LABS: Glucose, Whole Blood 285 mg/dL (60-115)
--- NOTE | 2022-12-03 12:01 | P.PNIM_ITS ---
Subjective Subjective Date of Service: 12/03/22 Interval History: seen and examined this morning follow up for cellulitis slowly improving no overnight events Review of Systems Review of Systems: Yes all other systems are reviewed and are negative Constitutional Constitutional: Denies chills and Denies fever(s) ENT Ears, Nose, Mouth, and Throat: Denies dizziness Cardiovascular Cardiovascular: Denies chest pain, Denies palpitations and Denies dyspnea Respiratory Respiratory: Denies cough and Denies dyspnea Gastrointestinal Gastrointestinal: Denies abdominal pain Neurologic Neurologic: Denies dizziness Endocrine Endocrine: Denies palpitations Physical Exam Vital Signs: Vital Signs: Last Vital Signs Temp 98.3 F 12/03/22 07:38 Pulse 60 12/03/22 07:38 Resp 18 12/03/22 07:38 BP 120/66 12/03/22 07:38 Pulse Ox 100 12/03/22 07:38 O2 Del Method Nasal Cannula 12/03/22 07:38 O2 Flow Rate 3 12/03/22 07:38 Oxygen Flow Rate 4 11/28/22 13:30 BMI result Body Mass Index 34.1 Appearing in no acute distress lung sounds are clear to auscultation heart regular rate rhythm, clear S1, S2 positive bowel sounds, abdomen is soft, nontender neuro patient is alert x3, no focal deficits RLE erythema improving Objective Data Active Medications Acetaminophen (Acetaminophen 325 Mg Tablet) 650 mg PO Q6H PRN PRN Reason: Pain, Mild (Pain Scale 1-3) Last Admin: 12/01/22 03:32 Dose: 650 mg Documented By: PAMELA Albuterol/Ipratropium (Albuterol/Iprat 2.5/0.5mg 3 Ml Ampul.Neb) 3 ml INHALE Q4H PRN PRN Reason: Wheezing Alprazolam (Alprazolam 0.5 Mg Tablet) 0.5 mg PO DAILY PRN PRN Reason: Anxiety Last Admin: 12/02/22 21:00 Dose: 0.5 mg Documented By: ADRIANA Apixaban (Apixaban 5 Mg Tablet) 5 mg PO BID [facility] Last Admin: 12/03/22 08:01 Dose: 5 mg Documented By: TIMO Atorvastatin Calcium (Atorvastatin Calcium 40 Mg Tablet) 40 mg PO BEDTIME [facility] Last Admin: 12/02/22 21:01 Dose: 40 mg Documented By: ADRIANA Clopidogrel Bisulfate (Clopidogrel Bisulfate 75 Mg Tablet) 75 mg PO DAILY [facility] Last Admin: 12/03/22 08:01 Dose: 75 mg Documented By: TIMO Docusate Sodium (Docusate Sodium 100 Mg Capsule) 100 mg PO DAILY [facility] Last Admin: 12/03/22 08:01 Dose: 100 mg Documented By: TIMO Empagliflozin (Empagliflozin 25 Mg Tablet) 25 mg PO DAILY [facility] Last Admin: 12/03/22 08:05 Dose: 25 mg Documented By: TIMO Gabapentin (Gabapentin 400 Mg Capsule) 400 mg PO QID [facility] Last Admin: 12/03/22 08:01 Dose: 400 mg Documented By: TIMO Glucose (Glucose Gel 15 Gm Gel..Gram.) 15 gm PO Q15M PRN; Protocol PRN Reason: per Hypoglycemia Standing Ord. Dextrose (D10) 250 mls @ 750 mls/hr IV Q15M PRN; Protocol PRN Reason: per Hypoglycemia Standing Ord. Ceftriaxone Sodium 2 gm/ (Sodium Chloride) 50 mls @ 100 mls/hr IV Q24H [facility] Last Infusion: 12/02/22 15:31 Dose: 0 mls/hr Documented By: HERNÁN Insulin Glargine (Insulin Glargine,Hum.Rec.Anlog 100 Unit/Ml 10 Ml Vial) 20 unit SUBCUT DAILY [facility] Last Admin: 12/03/22 08:03 Dose: 20 unit Documented By: TIMO Insulin Glargine (Insulin Glargine,Hum.Rec.Anlog 100 Unit/Ml 10 Ml Vial) 35 unit SUBCUT BEDTIME [facility] Last Admin: 12/02/22 21:01 Dose: 35 unit Documented By: ADRIANA Insulin Human Lispro (Insulin Lispro 100 Unit/Ml 3 Ml Vial) 0 unit SUBCUT QIDAC HS [facility]; Protocol Last Admin: 12/03/22 08:00 Dose: 6 unit Documented By: TIMO Lisinopril (Lisinopril 5 Mg Tablet) 5 mg PO DAILY [facility]; Protocol Last Admin: 12/03/22 08:01 Dose: 5 mg Documented By: TIMO Melatonin (Melatonin 3 Mg Tablet) 6 mg PO BEDTIME PRN PRN Reason: Insomnia Methadone HCl (Methadone Hcl 20 Mg/2 Ml Oral.Conc) 130 mg PO DAILY [facility] Last Admin: 12/03/22 08:03 Dose: 130 mg Documented By: TIMO Nicotine (Nicotine 21 Mg Patch.Td24) 21 mg TRANSDERMA DAILY [facility] Last Admin: 12/03/22 08:00 Dose: 21 mg Documented By: TIMO Oxycodone HCl (Oxycodone Hcl Immed Release 5 Mg Tablet) 10 mg PO Q6H PRN PRN Reason: Pain, Mild (Pain Scale 1-3) Last Admin: 12/03/22 09:41 Dose: 10 mg Documented By: TIMO Pharmacy Consult (Consult Rx Perform Med Rec) 1 each MISCELLANE ONCE PRN PRN Reason: Consult order Polyethylene Glycol (Polyethylene Glycol 3350 17 Gm Powd.Pack) 17 gm PO DAILY PRN PRN Reason: Constipation Senna (Sennosides 8.6 Mg Tablet) 8.6 mg PO BEDTIME [facility] Last Admin: 12/02/22 21:01 Dose: 8.6 mg Documented By: ADRIANA Sodium Chloride (0.9 % Sodium Chloride Flush 3 Ml Syringe) 3 ml IVFLUSH QSHIFT [facility] Last Admin: 12/03/22 08:03 Dose: 3 ml Documented By: TIMO Labs 11/29/22 08:55 12/03/22 06:07 Labs: Laboratory Results - last 24 hr 12/02/22 12/02/22 12/03/22 15:54 20:36 06:07 Estim Creat Clear Calc 87.2 Estimated GFR > 60 POC Glucose 167 H 373 H* 12/03/22 12/03/22 07:36 11:01 Estim Creat Clear Calc Estimated GFR POC Glucose 280 H 285 H Microbiology Microbiology Results: Microbiology 11/30/22 14:29 Blood Culture - Preliminary Blood - Venous No growth after 48 hours. 11/30/22 14:29 Blood Culture - Preliminary Blood - Venous No growth after 48 hours. Assessment and Plan (1) Chest pain: Status: Acute (2) Bacteremia: Status: Acute (3) Cellulitis of left leg: Status: Acute Plan This is a 52-year-old female with pertinent history of PE on Eliquis, opioid use disorder on methadone, essential hypertension, chronic hypoxic respiratory failure due to COPD, insulin-dependent diabetes mellitus presents to the emerg ency department for evaluation of leg swelling. Sepsis/bacteremia from left lower extremity nonpurulent cellulitis due to diabetes Sepsis resolved blood cx 08/08 + growing Group B strep; abx changed to IV ceftriaxone 11/30 - will likely need 14 days abx No DVT on venous duplex. Enlarged lymph node noted in left inguinal region, follow outpatient. Arterial duplex no evidence of LE arterial disease Repeat blood cultures negative Prolonged qtc likely related to methadone use avoid medications that prolong Qt electrolytes ok, repeat ekg showed improvement in qt chest pain Elevated troponin Likely due to increased demand, type 2.? trops trending down, although does have some ekg changes nuc stress Monday Chronic hypoxemic respiratory failure secondary to COPD and PE Continue home supplemental oxygen 2L at bedtime and prn with activity On Eliquis for PE DuoNebs p.r.n. Insulin-dependent diabetes mellitus with hyperglycemia ss, ada diet continue lantus hold metformin Essential hypertension Continue home antihypertensives Substance use disorder On methadone DVT prophylaxis:Peter attending - Dr. Chaudhari Full code requires ongoing inpatient hospital stay for IV antibiotics for cellulitis/bacteremia Time Spent With Patient Time: Total time managing care of this patient today ____ minutes. Quality Stroke Does the patient have a stroke diagnosis?: No VTE Prior VTE?: No VTE Risk Level:: Medical - moderate - high VTE Device Contraindication: Treatment Not Indicated VTE Drug Contraindication: N/A - Med Ordered
[2022-12-03] MEDS: cefTRIAXone sodium 2 GM in 0.9 % Sodium Chloride 50 ML IV (13:21)
[2022-12-03 15:13] VITALS: BP 115/60; PULSE 69; RESP 21; TEMP 37; O2SAT 98
[2022-12-03 16:19] LABS: Glucose, Whole Blood 199 mg/dL (60-115)
[2022-12-03 19:45] LABS: Glucose, Whole Blood 272 mg/dL (60-115)
[2022-12-03] MEDS: Insulin Glargine,Hum.rec.anlog 100 UNIT/ML 10 ML VIAL 35 UNIT SUBCUT (20:02)
[2022-12-03] MEDS: Atorvastatin Calcium 40 MG TABLET PO (20:02)
[2022-12-03] MEDS: Sennosides 8.6 MG TABLET PO (20:02)
[2022-12-03] MEDS: ALPRAZolam 0.5 MG TABLET PO (20:08)
[2022-12-03] MEDS: Acetaminophen 325 MG TABLET 650 MG PO (22:25)
[2022-12-03] MEDS: Melatonin 3 MG TABLET 6 MG PO (22:25)
[2022-12-03 23:24] VITALS: BP 119/62; PULSE 65; RESP 20; TEMP 36.2; O2SAT 99
--- NOTE | 2022-12-04 | CA_ITS ---
Acquisition Time: 2022-12-05 11:08:10 Total Exercise Time: 00:02:00 Test Indications: ABN TROP, ABN EKG Medications: SEE H Protocol: LEXISCAN Max HR: 096 BPM 57% of Pred: 168 BPM Max BP: 148/074 mmHG Max Work Load: 1.0 METS Pharmacological stress test with Lexiscan injection, while sitting and kicking her legs, without anginal symptoms, without arrythmia, with normotensive response to exercise, with nondiagnostic EKG for ischemia. Nuclear images pending. Test reviewed with Dr Moctezuma. Referred By: Bautista Norman Overread By: MARY ALICE DAVIS
[2022-12-04] MEDS: oxyCODONE HCl Immed Release 5 MG TABLET 10 MG PO ×4 (05:53→23:59)
[2022-12-04 06:57] LABS: Creatinine Clr Calc Pharmacy 79.1; Estimated Glomerular Filt Rate > 60
[2022-12-04 07:45] VITALS: BP 131/76; PULSE 59; RESP 18; TEMP 36.3; O2SAT 96
[2022-12-04 08:04] LABS: Glucose, Whole Blood 333 mg/dL (60-115)
[2022-12-04 08:19] LABS: Hematocrit 35.4 % (37.0-47.0); Hemoglobin 10.9 g/dl (12.0-16.0); Mean Corpuscular HGB Conc 30.8 g/dl (31.0-35.0); Mean Corpuscular Hemoglobin 27.9 pg (27.0-33.0); Mean Corpuscular Volume 90.8 fL (80.0-98.0); Platelet Count 392 X10*3/uL (160-400); Red Cell Distribution Width 15.4 % (11.0-16.0); White Blood Count 11.1 X10*3/uL (4.8-10.8)
[2022-12-04 08:22] LABS: Anion Gap 18 (12-20); Blood Urea Nitrogen 29 mg/dL (9-16); Calcium 9.8 mg/dL (8.4-10.2); Carbon Dioxide 27 mmol/L (22-29); Chloride 100 mmol/L (96-108); Glucose Random 356 mg/dL (60-115); Potassium 4.6 mmol/L (3.3-5.1); Sodium 140 mmol/L (135-145)
[2022-12-04] MEDS: 0.9 % Sodium Chloride Flush 3 ML SYRINGE IVFLUSH ×3 (08:22→21:22)
[2022-12-04] MEDS: Nicotine 21 MG PATCH.TD24 TRANSDERMA (08:22)
[2022-12-04] MEDS: Insulin Lispro 100 UNIT/ML 3 ML VIAL SUBCUT ×4 (08:22→21:21)
[2022-12-04] MEDS: Insulin Glargine,Hum.rec.anlog 100 UNIT/ML 10 ML VIAL 20 UNIT SUBCUT (08:23)
[2022-12-04] MEDS: Gabapentin 400 MG CAPSULE PO ×4 (08:24→21:21)
[2022-12-04] MEDS: lisinopriL 5 MG TABLET PO (08:24)
[2022-12-04] MEDS: Docusate Sodium 100 MG CAPSULE PO (08:24)
[2022-12-04] MEDS: methADONE HCl 20 MG/2 ML ORAL.CONC 130 MG PO (08:24)
[2022-12-04] MEDS: Clopidogrel Bisulfate 75 MG TABLET PO (08:24)
[2022-12-04] MEDS: Apixaban 5 MG TABLET PO ×2 (08:24→21:21)
[2022-12-04] MEDS: Empagliflozin 25 MG TABLET PO (08:24)
--- NOTE | 2022-12-04 09:14 | HO.PM.IMPN ---
Subjective Subjective Date of Service: 12/04/22 Interval History: seen and examined this morning follow up for cellulitis and chest pain no overnight events Review of Systems Review of Systems: Yes all other systems are reviewed and are negative Constitutional Constitutional: Denies chills and Denies fever(s) ENT Ears, Nose, Mouth, and Throat: Denies dizziness Cardiovascular Cardiovascular: Denies chest pain, Denies palpitations and Denies dyspnea Respiratory Respiratory: Denies cough and Denies dyspnea Gastrointestinal Gastrointestinal: Denies abdominal pain Neurologic Neurologic: Denies dizziness Endocrine Endocrine: Denies palpitations Physical Exam Vital Signs: Vital Signs: Last Vital Signs Temp 97.3 F 12/04/22 07:45 Pulse 59 12/04/22 07:45 Resp 18 12/04/22 07:45 BP 131/76 12/04/22 07:45 Pulse Ox 96 12/04/22 07:45 O2 Del Method Room Air 12/04/22 07:45 O2 Flow Rate 2 12/03/22 23:24 Oxygen Flow Rate 4 11/28/22 13:30 BMI result Body Mass Index 34.1 Appearing in no acute distress lung sounds are clear to auscultation heart regular rate rhythm, clear S1, S2 positive bowel sounds, abdomen is soft, nontender neuro patient is alert x3, no focal deficits mild erythema to LE, left worse than right Objective Data Active Medications Acetaminophen (Acetaminophen 325 Mg Tablet) 650 mg PO Q6H PRN PRN Reason: Pain, Mild (Pain Scale 1-3) Last Admin: 12/03/22 22:25 Dose: 650 mg Documented By: GREGOR Albuterol/Ipratropium (Albuterol/Iprat 2.5/0.5mg 3 Ml Ampul.Neb) 3 ml INHALE Q4H PRN PRN Reason: Wheezing Alprazolam (Alprazolam 0.5 Mg Tablet) 0.5 mg PO DAILY PRN PRN Reason: Anxiety Last Admin: 12/03/22 20:08 Dose: 0.5 mg Documented By: GREGOR Apixaban (Apixaban 5 Mg Tablet) 5 mg PO BID [facility] Last Admin: 12/04/22 08:24 Dose: 5 mg Documented By: TIMO Atorvastatin Calcium (Atorvastatin Calcium 40 Mg Tablet) 40 mg PO BEDTIME [facility] Last Admin: 12/03/22 20:02 Dose: 40 mg Documented By: GREGOR Clopidogrel Bisulfate (Clopidogrel Bisulfate 75 Mg Tablet) 75 mg PO DAILY [facility] Last Admin: 12/04/22 08:24 Dose: 75 mg Documented By: TIMO Docusate Sodium (Docusate Sodium 100 Mg Capsule) 100 mg PO DAILY [facility] Last Admin: 12/04/22 08:24 Dose: 100 mg Documented By: TIMO Empagliflozin (Empagliflozin 25 Mg Tablet) 25 mg PO DAILY [facility] Last Admin: 12/04/22 08:24 Dose: 25 mg Documented By: TIMO Gabapentin (Gabapentin 400 Mg Capsule) 400 mg PO QID [facility] Last Admin: 12/04/22 08:24 Dose: 400 mg Documented By: TIMO Glucose (Glucose Gel 15 Gm Gel..Gram.) 15 gm PO Q15M PRN; Protocol PRN Reason: per Hypoglycemia Standing Ord. Dextrose (D10) 250 mls @ 750 mls/hr IV Q15M PRN; Protocol PRN Reason: per Hypoglycemia Standing Ord. Ceftriaxone Sodium 2 gm/ (Sodium Chloride) 50 mls @ 100 mls/hr IV Q24H [facility] Last Infusion: 12/03/22 13:54 Dose: 0 mls/hr Documented By: TIMO Insulin Glargine (Insulin Glargine,Hum.Rec.Anlog 100 Unit/Ml 10 Ml Vial) 20 unit SUBCUT DAILY [facility] Last Admin: 12/04/22 08:23 Dose: 20 unit Documented By: TIMO Insulin Glargine (Insulin Glargine,Hum.Rec.Anlog 100 Unit/Ml 10 Ml Vial) 35 unit SUBCUT BEDTIME [facility] Last Admin: 12/03/22 20:02 Dose: 35 unit Documented By: GREGOR Insulin Human Lispro (Insulin Lispro 100 Unit/Ml 3 Ml Vial) 0 unit SUBCUT QIDACHS [facility]; Protocol Last Admin: 12/04/22 08:22 Dose: 8 unit Documented By: TIMO Lisinopril (Lisinopril 5 Mg Tablet) 5 mg PO DAILY [facility]; Protocol Last Admin: 12/04/22 08:24 Dose: 5 mg Documented By: TIMO Melatonin (Melatonin 3 Mg Tablet) 6 mg PO BEDTIME PRN PRN Reason: Insomnia Last Admin: 12/03/22 22:25 Dose: 6 mg Documented By: GREGOR Methadone HCl (Methadone Hcl 20 Mg/2 Ml Oral.Conc) 130 mg PO DAILY [facility] Last Admin: 12/04/22 08:24 Dose: 130 mg Documented By: TIMO Nicotine (Nicotine 21 Mg Patch.Td24) 21 mg TRANSDERMA DAILY [facility] Last Admin: 12/04/22 08:22 Dose: 21 mg Documented By: TIMO Oxycodone HCl (Oxycodone Hcl Immed Release 5 Mg Tablet) 10 mg PO Q6H PRN PRN Reason: Pain, Mild (Pain Scale 1-3) Last Admin: 12/04/22 05:53 Dose: 10 mg Documented By: GREGOR Pharmacy Consult (Consult Rx Perform Med Rec) 1 each MISCELLANE ONCE PRN PRN Reason: Consult order Polyethylene Glycol (Polyethylene Glycol 3350 17 Gm Powd.Pack) 17 gm PO DAILY PRN PRN Reason: Constipation Senna (Sennosides 8.6 Mg Tablet) 8.6 mg PO BEDTIME [facility] Last Admin: 12/03/22 20:02 Dose: 8.6 mg Documented By: GREGOR Sodium Chloride (0.9 % Sodium Chloride Flush 3 Ml Syringe) 3 ml IVFLUSH QSHIFT [facility] Last Admin: 12/04/22 08:22 Dose: 3 ml Documented By: TIMO Labs 12/04/22 05:58 12/04/22 05:58 Labs: Laboratory Results - last 24 hr 12/03/22 12/03/22 12/03/22 11:01 16:13 19:40 MCV MCH MCHC RDW Plt Count MPV Immature Gran % (Auto) Neut % (Auto) Lymph % (Auto) Dundy % (Auto) Eos % (Auto) Baso % (Auto) Lymph # (Auto) Dundy # (Auto) Eos # (Auto) Baso # (Auto) Abs Immat Gran (auto) Absolute Neuts (auto) Absolute Nucleated RBC Nucleated RBC % (auto) Anion Gap Estim Creat Clear Calc Estimated GFR POC Glucose 285 H 199 H 272 H Random Glucose Calcium 12/04/22 12/04/22 12/04/22 05:58 05:58 07:42 MCV 90.8 MCH 27.9 MCHC 30.8 L RDW 15.4 Plt Count 392 D MPV 10.0 Immature Gran % (Auto) Cancelled Neut % (Auto) Cancelled Lymph % (Auto) Cancelled Dundy % (Auto) Cancelled Eos % (Auto) Cancelled Baso % (Auto) Cancelled Lymph # (Auto) Cancelled Dundy # (Auto) Cancelled Eos # (Auto) Cancelled Baso # (Auto) Cancelled Abs Immat Gran (auto) Cancelled Absolute Neuts (auto) Cancelled Absolute Nucleated RBC 0.000 Nucleated RBC % (auto) 0.0 Anion Gap 18 Estim Creat Clear Calc 79.1 Estimated GFR > 60 POC Glucose 333 H Random Glucose 356 H* Calcium 9.8 D Microbiology Microbiology Results: Microbiology 11/28/22 16:21 Blood Culture - Final Blood - Venous No growth after 5 days. Assessment and Plan (1) Chest pain: Status: Acute (2) Bacteremia: Status: Acute (3) Cellulitis of left leg: Status: Acute Plan This is a 52-year-old female with pertinent history of PE on Eliquis, opioid use disorder on methadone, essential hypertension, chronic hypoxic respiratory failure due to COPD, insulin-dependent diabetes mellitus presents to the emergency department for evaluation of leg swelling. Chest pain Elevated troponin Likely due to increased demand, type 2.? trops trending down, although does have some ekg changes nuc stress Monday, NPO after midnight Sepsis/bacteremia from left lower extremity nonpurulent cellulitis due to diabetes Sepsis resolved blood cx 08/08 + growing Group B strep; abx changed to IV ceftriaxone 11/30 - will likely need 14 days abx No DVT on venous duplex. Enlarged lymph node noted in left inguinal region, follow outpatient. Arterial duplex no evidence of LE arterial disease Repeat blood cultures negative Prolonged qtc likely related to methadone use avoid medications that prolong Qt electrolytes ok, repeat ekg showed improvement in qt Chronic hypoxemic respiratory failure secondary to COPD and PE Continue home supplemental oxygen 2L at bedtime and prn with activity On Eliquis for PE DuoNebs p.r.n. Insulin-dependent diabetes mellitus with hyperglycemia ss, ada diet continue lantus hold metformin Essential hypertension Continue home antihypertensives Substance use disorder On methadone DVT prophylaxis:Peter attending - Dr. Chaudhari Full code requires ongoing inpatient hospital stay for IV antibiotics for cellulitis/bacteremia Time Spent With Patient Time: Total time managing care of this patient today ____ minutes. Quality Stroke Does the patient have a stroke diagnosis?: No VTE Prior VTE?: No VTE Risk Level:: Medical - moderate - high VTE Device Contraindication: Treatment Not Indicated VTE Drug Contraindication: N/A - Med Ordered
[2022-12-04 11:27] VITALS: BP 138/81; PULSE 65; RESP 18; TEMP 36.2; O2SAT 99
[2022-12-04 11:30] LABS: Band Neutrophils Percent 5 % (3-5); Eosinophils Absolute Manual 0.3 X10*3/uL (0.0-0.4); Eosinophils Percent Manual 3 % (0-4); Lymphocytes Absolute Manual 2.1 X10*3/uL (1.2-4.9); Lymphocytes Percent Manual 19 % (20-40); Metamyelocytes Absolute 0.2 X10*3/uL; Metamyelocytes Percent 2 %; Monocytes Absolute Manual 0.2 X10*3/uL (0.1-1.2); Monocytes Percent Manual 2 % (2-11); Myelocytes Absolute 0.4 X10*/uL; Myelocytes Percent 4 %; Neutrophils Absolute Manual 7.5 X10*3/uL (2.0-8.3); Neutrophils Percent Manual 63 % (45-73); Promyelocytes Absolute 0.2 X10*3/uL; Promyelocytes Percent 2 %
[2022-12-04 11:31] LABS: Platelet Estimate NORMAL (NORMAL); Platelet Morphology Comment NORMAL; RBC Morphology NOTED; Tear Drop Cells 1+ (0-2) /OIF
[2022-12-04 11:59] LABS: Glucose, Whole Blood 250 mg/dL (60-115)
[2022-12-04] MEDS: cefTRIAXone sodium 2 GM in 0.9 % Sodium Chloride 50 ML IV (13:52)
[2022-12-04 15:07] VITALS: BP 127/68; PULSE 76; RESP 20; TEMP 36.8; O2SAT 90
[2022-12-04 16:16] LABS: Glucose, Whole Blood 338 mg/dL (60-115)
[2022-12-04 19:42] LABS: Glucose, Whole Blood 283 mg/dL (60-115)
[2022-12-04] MEDS: Sennosides 8.6 MG TABLET PO (21:21)
[2022-12-04] MEDS: Atorvastatin Calcium 40 MG TABLET PO (21:21)
[2022-12-04] MEDS: Insulin Glargine,Hum.rec.anlog 100 UNIT/ML 10 ML VIAL 35 UNIT SUBCUT (21:21)
[2022-12-04] MEDS: ALPRAZolam 0.5 MG TABLET PO (21:32)
[2022-12-04 23:53] VITALS: BP 140/66; PULSE 68; RESP 16; TEMP 36.1; O2SAT 95
[2022-12-05 07:17] LABS: Glucose, Whole Blood 317 mg/dL (60-115)
[2022-12-05 07:35] VITALS: BP 145/70; PULSE 61; RESP 20; TEMP 36.3; O2SAT 100
[2022-12-05] MEDS: lisinopriL 5 MG TABLET PO (08:02)
[2022-12-05] MEDS: Docusate Sodium 100 MG CAPSULE PO (08:02)
[2022-12-05] MEDS: Apixaban 5 MG TABLET PO ×2 (08:02→19:57)
[2022-12-05] MEDS: Gabapentin 400 MG CAPSULE PO ×4 (08:02→19:57)
[2022-12-05] MEDS: Empagliflozin 25 MG TABLET PO (08:03)
[2022-12-05] MEDS: methADONE HCl 20 MG/2 ML ORAL.CONC 130 MG PO (08:03)
[2022-12-05] MEDS: Nicotine 21 MG PATCH.TD24 TRANSDERMA (08:03)
[2022-12-05] MEDS: Clopidogrel Bisulfate 75 MG TABLET PO (08:03)
[2022-12-05 08:10] LABS: Creatinine Clr Calc Pharmacy 90.4; Estimated Glomerular Filt Rate > 60
[2022-12-05] MEDS: 0.9 % Sodium Chloride Flush 3 ML SYRINGE IVFLUSH ×3 (08:14→19:57)
[2022-12-05] MEDS: Insulin Lispro 100 UNIT/ML 3 ML VIAL SUBCUT ×4 (09:51→19:56)
[2022-12-05] MEDS: Insulin Glargine,Hum.rec.anlog 100 UNIT/ML 10 ML VIAL 20 UNIT SUBCUT (09:51)
[2022-12-05] MEDS: oxyCODONE HCl Immed Release 5 MG TABLET 10 MG PO ×3 (09:52→21:50)
--- NOTE | 2022-12-05 10:33 | MHC.CM.PN ---
PER MD ROUNDS PT IS EXPECTED TO DC TODAY DCP: HOME NO SERVICES. SHE WILL NEED TRANSPORT ARRANGED
[2022-12-05] MEDS: LORazepam 1 MG TABLET PO (10:36)
--- NOTE | 2022-12-05 10:50 | P.PNCA_ITS ---
Subjective Subjective Date of Service: 12/05/22 Principal diagnosis: Abnormal EKG, elevated troponins Interval history: Patient with no significant chest pain. Echo did not show any significant evidence of acute cor pulmonale. Does show enlarged RV. Denies any shortness of breath. Scheduled to undergo myocardial perfusion imaging today. Review of Systems Constitutional: Reports no additional constitutional complaints Physical Exam Vital Signs: Last Vital Signs Temp 97.4 F 12/05/22 07:35 Pulse 61 12/05/22 07:35 Resp 20 12/05/22 07:35 BP 145/70 H 12/05/22 07:35 Pulse Ox 100 12/05/22 07:35 O2 Del Method Nasal Cannula 12/05/22 07:35 O2 Flow Rate 3 12/05/22 07:35 Oxygen Flow Rate 4 11/28/22 13:30 BMI result Body Mass Index 34.1 GENERAL APPEARANCE: in no acute distress, pleasant. NECK: no carotid bruit, no jugular venous distention. SKIN: Cellulitis left lower extremity up to the knee. Small ulcer on the sole of the foot. HEART: no murmurs, regular rate and rhythm. LUNGS: clear to auscultation bilaterally. ABDOMEN: soft, nontender. EXTREMITIES: no edema. PERIPHERAL PULSES: equal. NEUROLOGIC: No gross deficits, AAO X 3 Objective Labs and Meds 12/04/22 05:58 12/05/22 06:25 Lab results: Laboratory Results - last 24 hr 12/04/22 12/04/22 12/04/22 05:58 11:23 16:07 Neutrophils % (Manual) 63 Band Neutrophils % 5 Lymphocytes % (Manual) 19 L Monocytes % (Manual) 2 Eosinophils % (Manual) 3 Metamyelocytes % 2 Myelocytes % 4 Promyelocytes % 2 Abs Neuts (Manual) 7.5 Lymphocytes # (Manual) 2.1 Monocytes # (Manual) 0.2 Eosinophils # (Manual) 0.3 Metamyelocytes # 0.2 Myelocytes # 0.4 Promyelocytes # 0.2 Platelet Estimate NORMAL Plt Morphology Comment NORMAL RBC Morphology NOTED Tear Drop Cells 1+ (0-2) Creatinine Estim Creat Clear Calc Estimated GFR POC Glucose 250 H 338 H 12/04/22 12/05/22 12/05/22 19:35 06:25 07:04 Neutrophils % (Manual) Band Neutrophils % Lymphocytes % (Manual) Monocytes % (Manual) Eosinophils % (Manual) Metamyelocytes % Myelocytes % Promyelocytes % Abs Neuts (Manual) Lymphocytes # (Manual) Monocytes # (Manual) Eosinophils # (Manual) Metamyelocytes # Myelocytes # Promyelocytes # Platelet Estimate Plt Morphology Comment RBC Morphology Tear Drop Cells Creatinine 0.85 Estim Creat Clear Calc 90.4 Estimated GFR > 60 POC Glucose 283 H 317 H Progress Note: A&P Assessment and plan (1) Elevated troponin: Status: Acute Assessment and Plan: Patient with elevated troponin with interior EKG changes without any evidence of stress-induced cardiomyopathy by echocardiogram with normal LV systolic function. Could be secondary to sepsis syndrome. Although underlying coronary artery disease is possible. Further treatment based on finding of stress testing. Other possibility includes pulmonary embolism. If stress test is negative should pursue further workup from that perspective given her prior hist ory of pulmonary embolism. Currently on full oral anticoagulation with Eliquis. Will follow with you Time Spent With Patient Time: Total time managing care of this patient today ____ minutes. Progress Note: Quality Stroke Does the patient have a stroke diagnosis?: No Procedures Date of Service Date of Service: 12/05/22
[2022-12-05 12:00] VITALS: BP 137/77; PULSE 69; RESP 20; TEMP 36.3; O2SAT 99
[2022-12-05 12:27] LABS: Glucose, Whole Blood 165 mg/dL (60-115)
--- NOTE | 2022-12-05 12:48 | P.PNIM_ITS ---
Subjective Subjective Date of Service: 12/06/22 Interval History: seen and examined this morning follow up for cellulitis and chest pain no overnight events Review of Systems Review of Systems: Yes all other systems are reviewed and are negative Constitutional Constitutional: Denies chills and Denies fever(s) ENT Ears, Nose, Mouth, and Throat: Denies dizziness Cardiovascular Cardiovascular: Denies chest pain, Denies palpitations and Denies dyspnea Respiratory Respiratory: Denies cough and Denies dyspnea Gastrointestinal Gastrointestinal: Denies abdominal pain Neurologic Neurologic: Denies dizziness Endocrine Endocrine: Denies palpitations Physical Exam Vital Signs: Vital Signs: Last Vital Signs Temp 97.3 F 12/05/22 12:00 Pulse 69 12/05/22 12:00 Resp 20 12/05/22 12:00 BP 137/77 12/05/22 12:00 Pulse Ox 99 12/05/22 12:00 O2 Del Method Nasal Cannula 12/05/22 12:00 O2 Flow Rate 3 12/05/22 12:00 Oxygen Flow Rate 4 11/28/22 13:30 BMI result Body Mass Index 34.1 Appearing in no acute distress lung sounds are clear to auscultation heart regular rate rhythm, clear S1, S2 positive bowel sounds, abdomen is soft, nontender neuro patient is alert x3, no focal deficits Objective Data Active Medications Acetaminophen (Acetaminophen 325 Mg Tablet) 650 mg PO Q6H PRN PRN Reason: Pain, Mild (Pain Scale 1-3) Last Admin: 12/03/22 22:25 Dose: 650 mg Documented By: GREGOR Albuterol/Ipratropium (Albuterol/Iprat 2.5/0.5mg 3 Ml Ampul.Neb) 3 ml INHALE Q4H PRN PRN Reason: Wheezing Alprazolam (Alprazolam 0.5 Mg Tablet) 0.5 mg PO DAILY PRN PRN Reason: Anxiety Last Admin: 12/04/22 21:32 Dose: 0.5 mg Documented By: GREGOR Apixaban (Apixaban 5 Mg Tablet) 5 mg PO BID [facility] Last Admin: 12/05/22 08:02 Dose: 5 mg Documented By: SHANT Atorvastatin Calcium (Atorvastatin Calcium 40 Mg Tablet) 40 mg PO BEDTIME [facility] Last Admin: 12/04/22 21:21 Dose: 40 mg Documented By: GREGOR Clopidogrel Bisulfate (Clopidogrel Bisulfate 75 Mg Tablet) 75 mg PO DAILY [facility] Last Admin: 12/05/22 08:03 Dose: 75 mg Documented By: SHANT Docusate Sodium (Docusate Sodium 100 Mg Capsule) 100 mg PO DAILY [facility] Last Admin: 12/05/22 08:02 Dose: 100 mg Documented By: SHANT Empagliflozin (Empagliflozin 25 Mg Tablet) 25 mg PO DAILY [facility] Last Admin: 12/05/22 08:03 Dose: 25 mg Documented By: SHANT Gabapentin (Gabapentin 400 Mg Capsule) 400 mg PO QID [facility] Last Admin: 12/05/22 08:02 Dose: 400 mg Documented By: SHANT Glucose (Glucose Gel 15 Gm Gel..Gram.) 15 gm PO Q15M PRN; Protocol PRN Reason: per Hypoglycemia Standing Ord. Dextrose (D10) 250 mls @ 750 mls/hr IV Q15M PRN; Protocol PRN Reason: per Hypoglycemia Standing Ord. Ceftriaxone Sodium 2 gm/ (Sodium Chloride) 50 mls @ 100 mls/hr IV Q24H [facility] Last Infusion: 12/04/22 15:07 Dose: 0 mls/hr Documented By: TIMO Insulin Glargine (Insulin Glargine,Hum.Rec.Anlog 100 Unit/Ml 10 Ml Vial) 20 unit SUBCUT DAILY [facility] Last Admin: 12/05/22 09:51 Dose: 20 unit Documented By: SHANT Insulin Glargine (Insulin Glargine,Hum.Rec.Anlog 100 Unit/Ml 10 Ml Vial) 35 un it SUBCUT BEDTIME [facility] Last Admin: 12/04/22 21:21 Dose: 35 unit Documented By: GREGOR Insulin Human Lispro (Insulin Lispro 100 Unit/Ml 3 Ml Vial) 0 unit SUBCUT QIDACHS [facility]; Protocol Last Admin: 12/05/22 09:51 Dose: 10 unit Documented By: SHANT Lisinopril (Lisinopril 5 Mg Tablet) 5 mg PO DAILY [facility]; Protocol Last Admin: 12/05/22 08:02 Dose: 5 mg Documented By: SHANT Melatonin (Melatonin 3 Mg Tablet) 6 mg PO BEDTIME PRN PRN Reason: Insomnia Last Admin: 12/03/22 22:25 Dose: 6 mg Documented By: GREGOR Methadone HCl (Methadone Hcl 20 Mg/2 Ml Oral.Conc) 130 mg PO DAILY [facility] Last Admin: 12/05/22 08:03 Dose: 130 mg Documented By: SHANT Nicotine (Nicotine 21 Mg Patch.Td24) 21 mg TRANSDERMA DAILY [facility] Last Admin: 12/05/22 08:03 Dose: 21 mg Documented By: SHANT Oxycodone HCl (Oxycodone Hcl Immed Release 5 Mg Tablet) 10 mg PO Q6H PRN PRN Reason: Pain, Mild (Pain Scale 1-3) Last Admin: 12/05/22 09:52 Dose: 10 mg Documented By: SHANT Pharmacy Consult (Consult Rx Perform Med Rec) 1 each MISCELLANE ONCE PRN PRN Reason: Consult order Polyethylene Glycol (Polyethylene Glycol 3350 17 Gm Powd.Pack) 17 gm PO DAILY PRN PRN Reason: Constipation Senna (Sennosides 8.6 Mg Tablet) 8.6 mg PO BEDTIME [facility] Last Admin: 12/04/22 21:21 Dose: 8.6 mg Documented By: GREGOR Sodium Chloride (0.9 % Sodium Chloride Flush 3 Ml Syringe) 3 ml IVFLUSH QSHIFT [facility] Last Admin: 12/05/22 08:14 Dose: 3 ml Documented By: SHANT Labs 12/04/22 05:58 12/05/22 06:25 Labs: Laboratory Results - last 24 hr 12/04/22 12/04/22 12/05/22 16:07 19:35 06:25 Estim Creat Clear Calc 90.4 Estimated GFR > 60 POC Glucose 338 H 283 H 12/05/22 12/05/22 07:04 12:23 Estim Creat Clear Calc Estimated GFR POC Glucose 317 H 165 H Assessment and Plan (1) Chest pain: Status: Acute (2) Bacteremia: Status: Acute (3) Cellulitis of left leg: Status: Acute Plan This is a 52-year-old female with pertinent history of PE on Eliquis, opioid use disorder on methadone, essential hypertension, chronic hypoxic respiratory failure due to COPD, insulin-dependent diabetes mellitus presents to the emergency department for evaluation of leg swelling. Chest pain Elevated troponin Likely due to increased demand, type 2.? trops trending down, although does have some ekg changes nuc stress today Sepsis/bacteremia from left lower extremity nonpurulent cellulitis due to diabetes Sepsis resolved blood cx 08/08 + growing Group B strep; abx changed to IV ceftriaxone 11/30 - will likely need 14 days abx No DVT on venous duplex. Enlarged lymph node noted in left inguinal region, follow outpatient. Arterial duplex no evidence of LE arterial disease Repeat blood cultures negative Prolonged qtc likely related to methadone use avoid medications that prolong Qt electrolytes ok, repeat ekg showed improvement in qt Chronic hypoxemic respiratory failure secondary to COPD and PE Continue home supplemental oxygen 2L at bedtime and prn with activity On Eliquis for PE DuoNebs p.r.n. Insulin-dependent diabetes mellitus with hyperglycemia ss, ada diet continue lantus hold metformin Essential hypertension Continue home antihypertensives Substance use disorder On methadone DVT prophylaxis:Peter attending - Dr. Liz Full code requires ongoing inpatient hospital stay for IV antibiotics for cellulitis/bacteremia Time Spent With Patient Time: Total time managing care of this patient today ____ minutes. Quality Stroke Does the patient have a stroke diagnosis?: No VTE Prior VTE?: No VTE Risk Level:: Medical - moderate - high VTE Device Contraindication: Treatment Not Indicated VTE Drug Contraindication: N/A - Med Ordered
[2022-12-05] MEDS: cefTRIAXone sodium 2 GM in 0.9 % Sodium Chloride 50 ML IV (12:56)
[2022-12-05 15:02] VITALS: BP 125/66; PULSE 72; RESP 20; TEMP 36.7; O2SAT 99
[2022-12-05 16:17] LABS: Glucose, Whole Blood 216 mg/dL (60-115)
[2022-12-05 19:39] VITALS: BP 137/65; PULSE 76; RESP 19; TEMP 36.4; O2SAT 98
[2022-12-05] MEDS: Insulin Glargine,Hum.rec.anlog 100 UNIT/ML 10 ML VIAL 35 UNIT SUBCUT (19:56)
[2022-12-05] MEDS: Sennosides 8.6 MG TABLET PO (19:57)
[2022-12-05] MEDS: Atorvastatin Calcium 40 MG TABLET PO (19:57)
[2022-12-05] MEDS: ALPRAZolam 0.5 MG TABLET PO (20:04)
[2022-12-05 20:39] LABS: Glucose, Whole Blood 280 mg/dL (60-115)
[2022-12-05] MEDS: Acetaminophen 325 MG TABLET 650 MG PO (21:50)
[2022-12-06] VITALS: BP 127/59; PULSE 63; RESP 16; TEMP 36.2; O2SAT 100
[2022-12-06] MEDS: Acetaminophen 325 MG TABLET 650 MG PO ×3 (04:00→16:17)
[2022-12-06] MEDS: oxyCODONE HCl Immed Release 5 MG TABLET 10 MG PO ×2 (04:01→10:19)
[2022-12-06 06:11] LABS: Creatinine Clr Calc Pharmacy 86.3; Estimated Glomerular Filt Rate > 60
[2022-12-06 07:18] VITALS: BP 119/61; PULSE 56; RESP 16; TEMP 36; O2SAT 100
[2022-12-06] MEDS: methADONE HCl 20 MG/2 ML ORAL.CONC 130 MG PO (07:25)
[2022-12-06] MEDS: Insulin Glargine,Hum.rec.anlog 100 UNIT/ML 10 ML VIAL 20 UNIT SUBCUT (07:28)
[2022-12-06] MEDS: Nicotine 21 MG PATCH.TD24 TRANSDERMA (07:28)
[2022-12-06] MEDS: Gabapentin 400 MG CAPSULE PO ×3 (07:29→16:17)
[2022-12-06] MEDS: Apixaban 5 MG TABLET PO (07:29)
[2022-12-06] MEDS: lisinopriL 5 MG TABLET PO (07:29)
[2022-12-06] MEDS: Clopidogrel Bisulfate 75 MG TABLET PO (07:29)
[2022-12-06] MEDS: Empagliflozin 25 MG TABLET PO (07:29)
[2022-12-06] MEDS: 0.9 % Sodium Chloride Flush 3 ML SYRINGE IVFLUSH (07:30)
[2022-12-06] MEDS: Insulin Lispro 100 UNIT/ML 3 ML VIAL SUBCUT ×3 (07:30→16:18)
[2022-12-06 07:43] LABS: Glucose, Whole Blood 215 mg/dL (60-115)
[2022-12-06 11:20] LABS: Glucose, Whole Blood 221 mg/dL (60-115)
[2022-12-06] MEDS: cefTRIAXone sodium 2 GM in 0.9 % Sodium Chloride 50 ML IV (13:03)
[2022-12-06 16:00] VITALS: BP 131/66; PULSE 58; RESP 18; TEMP 35.9
--- NOTE | 2022-12-06 16:04 | P.PNIM_ITS ---
Subjective Subjective Date of Service: 12/06/22 Interval History: seen and examined this morning follow up for cellulitis and chest pain no overnight events Review of Systems Review of Systems: Yes all other systems are reviewed and are negative Constitutional Constitutional: Denies chills and Denies fever(s) ENT Ears, Nose, Mouth, and Throat: Denies dizziness Cardiovascular Cardiovascular: Denies chest pain, Denies palpitations and Denies dyspnea Respiratory Respiratory: Denies cough and Denies dyspnea Gastrointestinal Gastrointestinal: Denies abdominal pain Neurologic Neurologic: Denies dizziness Endocrine Endocrine: Denies palpitations Physical Exam Vital Signs: Vital Signs: Last Vital Signs Temp 96.8 F 12/06/22 07:18 Pulse 56 12/06/22 07:18 Resp 16 12/06/22 07:18 BP 119/61 12/06/22 07:18 Pulse Ox 100 12/06/22 07:18 O2 Del Method Nasal Cannula 12/06/22 07:18 O2 Flow Rate 4.0 12/06/22 07:18 Oxygen Flow Rate 4 11/28/22 13:30 BMI result Body Mass Index 34.1 Appearing in no acute distress lung sounds are clear to auscultation heart regular rate rhythm, clear S1, S2 positive bowel sounds, abdomen is soft, nontender neuro patient is alert x3, no focal deficits LE erythema improving Objective Data Active Medications Acetaminophen (Acetaminophen 325 Mg Tablet) 650 mg PO Q6H PRN PRN Reason: Pain, Mild (Pain Scale 1-3) Last Admin: 12/06/22 10:19 Dose: 650 mg Documented By: SON Alprazolam (Alprazolam 0.5 Mg Tablet) 0.5 mg PO DAILY PRN PRN Reason: Anxiety Last Admin: 12/05/22 20:04 Dose: 0.5 mg Documented By: ELVIRA Apixaban (Apixaban 5 Mg Tablet) 5 mg PO BID [facility] Last Admin: 12/06/22 07:29 Dose: 5 mg Documented By: SON Atorvastatin Calcium (Atorvastatin Calcium 40 Mg Tablet) 40 mg PO BEDTIME [facility] Last Admin: 12/05/22 19:57 Dose: 40 mg Documented By: ELVIRA Clopidogrel Bisulfate (Clopidogrel Bisulfate 75 Mg Tablet) 75 mg PO DAILY [facility] Last Admin: 12/06/22 07:29 Dose: 75 mg Documented By: SON Docusate Sodium (Docusate Sodium 100 Mg Capsule) 100 mg PO DAILY [facility] Last Admin: 12/06/22 07:30 Dose: Not Given Documented By: SON Non-Admin Reason: Patient Refused Empagliflozin (Empagliflozin 25 Mg Tablet) 25 mg PO DAILY [facility] Last Admin: 12/06/22 07:29 Dose: 25 mg Documented By: SON Gabapentin (Gabapentin 400 Mg Capsule) 400 mg PO QID [facility] Last Admin: 12/06/22 12:31 Dose: 400 mg Documented By: SON Glucose (Glucose Gel 15 Gm Gel..Gram.) 15 gm PO Q15M PRN; Protocol PRN Reason: per Hypoglycemia Standing Ord. Dextrose (D10) 250 mls @ 750 mls/hr IV Q15M PRN; Protocol PRN Reason: per Hypoglycemia Standing Ord. Ceftriaxone Sodium 2 gm/ (Sodium Chloride) 50 mls @ 100 mls/hr IV Q24H [facility] Last Infusion: 12/06/22 14:16 Dose: 0 mls/hr Documented By: SON Insulin Glargine (Insulin Glargine,Hum.Rec.Anlog 100 Unit/Ml 10 Ml Vial) 20 unit SUBCUT DAILY [facility] Last Admin: 12/06/22 07:28 Dose: 20 unit Documented By: SON Insulin Glargine (Insulin Glargine,Hum.Rec.Anlog 100 Unit/Ml 10 Ml Vial) 35 unit SUBCUT BEDTIME [facility] Last Admin: 12/05/22 19:56 Dose: 1 unit Documented By: ELVIRA Insulin Human Lispro (Insulin Lispro 100 Unit/Ml 3 Ml Vial) 0 unit SUBCUT QIDACHS [facility]; Protocol Last Admin: 12/06/22 11:32 Dose: 6 unit Documented By: SON Lisinopril (Lisinopril 5 Mg Tablet) 5 mg PO DAILY [facility]; Protocol Last Admin: 12/06/22 07:29 Dose: 5 mg Documented By: SON Melatonin (Melatonin 3 Mg Tablet) 6 mg PO BEDTIME PRN PRN Reason: Insomnia Last Admin: 12/03/22 22:25 Dose: 6 mg Documented By: GREGOR Methadone HCl (Methadone Hcl 20 Mg/2 Ml Oral.Conc) 130 mg PO DAILY [facility] Last Admin: 12/06/22 07:25 Dose: 130 mg Documented By: SON Nicotine (Nicotine 21 Mg Patch.Td24) 21 mg TRANSDERMA DAILY [facility] Last Admin: 12/06/22 07:28 Dose: 21 mg Documented By: SON Oxycodone HCl (Oxycodone Hcl Immed Release 5 Mg Tablet) 10 mg PO Q6H PRN PRN Reason: Pain, Mild (Pain Scale 1-3) Last Admin: 12/06/22 10:19 Dose: 10 mg Documented By: SON Pharmacy Consult (Consult Rx Perform Med Rec) 1 each MISCELLANE ONCE PRN PRN Reason: Consult order Polyethylene Glycol (Polyethylene Glycol 3350 17 Gm Powd.Pack) 17 gm PO DAILY PRN PRN Reason: Constipation Senna (Sennosides 8.6 Mg Tablet) 8.6 mg PO BEDTIME [facility] Last Admin: 12/05/22 19:57 Dose: 8.6 mg Documented By: ELVIRA Sodium Chloride (0.9 % Sodium Chloride Flush 3 Ml Syringe) 3 ml IVFLUSH QSHIFT [facility] Last Admin: 12/06/22 13:20 Dose: Not Given Documented By: SON Non-Admin Reason: flush post IVABT Labs 12/04/22 05:58 12/06/22 05:30 Labs: Laboratory Results - last 24 hr 12/05/22 12/05/22 12/06/22 16:05 19:44 05:30 Estim Creat Clear Calc 86.3 Estimated GFR > 60 POC Glucose 216 H 280 H 12/06/22 12/06/22 07:16 11:06 Estim Creat Clear Calc Estimated GFR POC Glucose 215 H 221 H Microbiology Microbiology Results: Microbiology 11/30/22 14:29 Blood Culture - Final Blood - Venous No growth after 5 days. 11/30/22 14:29 Blood Culture - Final Blood - Venous No growth after 5 days. Assessment and Plan (1) Chest pain: Status: Acute (2) Bacteremia: Status: Acute (3) Cellulitis of left leg: Status: Acute Plan This is a 52-year-old female with pertinent history of PE on Eliquis, opioid use disorder on methadone, essential hypertension, chronic hypoxic respiratory failure due to COPD, insulin-dependent diabetes mellitus presents to the emergency department for evaluation of leg swelling. Chest pain. Resolved Elevated troponin Likely due to increased demand, type 2.? trops trending down, although does have some ekg changes nuc stress results showing some ischemic changes to lateral wall with normal EF, discuss with cardio plan Sepsis/bacteremia from left lower extremity nonpurulent cellulitis due to diabetes Sepsis resolved blood cx 1/ + growing Group B strep; abx changed to IV ceftriaxone 11/30 - will likely need 14 days abx No DVT on venous duplex. Enlarged lymph node noted in left inguinal region, follow outpatient. Arterial duplex no evidence of LE arterial disease Repeat blood cultures negative Prolonged qtc likely related to methadone use avoid medications that prolong Qt electrolytes ok, repeat ekg showed improvement in qt Chronic hypoxemic respiratory failure secondary to COPD and PE Continue home supplemental oxygen 2L at bedtime and prn with activity On Eliquis for PE DuoNebs p.r.n. Insulin-dependent diabetes mellitus with hyperglycemia ss, ada diet continue lantus hold metformin Essential hypertension Continue home antihypertensives Substance use disorder On methadone DVT prophylaxis:Peter attending - Dr. Liz Full code requires ongoing inpatient hospital stay for IV antibiotics for cellulitis/bacteremia Time Spent With Patient Time: Total time managing care of this patient today ____ minutes. Quality Stroke Does the patient have a stroke diagnosis?: No VTE Prior VTE?: No VTE Risk Level:: Medical - moderate - high VTE Device Contraindication: Treatment Not Indicated VTE Drug Contraindication: N/A - Med Ordered
[2022-12-06 16:16] LABS: Glucose, Whole Blood 239 mg/dL (60-115)
[2022-12-06] MEDS: oxyCODONE HCl Immed Release 5 MG TABLET PO (16:18)
--- NOTE | 2022-12-06 17:32 | PM.DS ---
DS: Providers Provider Date of Service: 12/06/22 Date of admission: 11/28/22 19:14 Primary care physician: Nikhil Potts MD Consults: 12/01/22 09:32 Consult to Cardiology Routine Consulting Provider: [facility] Reason for consultation: chest pain, elevated trops DS: Diagnosis Discharge Diagnosis (1) Chest pain: Status: Acute (2) Bacteremia: Status: Acute (3) Cellulitis of left leg: Status: Acute DS: Summary Hospital Course Hospital Course: HP as per admitting provider This is a 52-year-old female with pertinent history of PE on Eliquis, opioid use disorder on methadone, essential hypertension, chronic hypoxic respiratory failure due to COPD, insulin-dependent diabetes mellitus presents to the emergency department for evaluation of leg swelling.? Patient states she started having left lower extremity swelling that she 1st noticed 2 days ago.? It was associated with redness, warmth and pain.? She denies fever, chills but admits nausea and nonbloody emesis.? Denies trauma to the foot.? Patient denies chest discomfort, palpitations, shortness of breath, abdominal pain, changes in urinary or bowel habits. In the emergency department, patient was found to be septic with elevated white count . Chest pain. Resolved. Likely due to increased demand, type 2.?nuc stress results showing some ischemic changes to lateral wall with normal EF, plan to follow up o/p in cardiology office Sepsis/bacteremia from left lower extremity nonpurulent cellulitis due to diabetes. Sepsis resolved. blood cx 08/08 + growing Group B strep;? abx changed to IV ceftriaxone 11/30 continue Ceftin for total of 14 days abx. Arterial duplex no evidence of LE arterial disease. No DVT on Venous dopler. Repeat blood cultures negative Prolonged qtc. likely related to methadone use Chronic hypoxemic respiratory failure secondary to COPD and PE. On Eliquis for PE. continue home medications Insulin-dependent diabetes mellitus with hyperglycemia. continue home medications Essential hypertension. Continue home antihypertensives Substance use disorder. On methadone. Last dose 12/06/22 Time Spent with Patient Time attestation: Total time managing care of this patient today ____ minutes. Discharge coordination time: Greater than 30 minutes Quality: Safe Use of Opioids Does Pt have an Active Cancer Diagnosis on the Problem List?: No Quality: Stroke Does the patient have a stroke diagnosis?: No Physical Exam Vital Signs: Vital Signs: Last Vital Signs Temp 96.6 F L 12/06/22 16:00 Pulse 58 12/06/22 16:00 Resp 18 12/06/22 16:00 BP 131/66 12/06/22 16:00 Pulse Ox 100 12/06/22 07:18 O2 Del Method Room Air 12/06/22 16:00 O2 Flow Rate 4.0 12/06/22 07:18 Oxygen Flow Rate 4 11/28/22 13:30 BMI result Body Mass Index 34.1 Appearing in no acute distress head is normocephalic atraumatic eyes pupils are PERRLA sclera is anicteric mouth throat mucous membranes are intact and moist neck is supple no lymphadenopathy, no JVD noted lung sounds are clear to auscultation heart regular rate rhythm, clear S1, S2 positive bowel sounds, abdomen is soft, nontender neuro patient is alert x3, no focal deficits DS: Data Data Completed and Pending Completed studies during hospitalization [Text1]: Procedures Detachment at Right 1st Toe, Mid, Open Approach (09/21/21) Detachment at Right 2nd Toe, Mid, Open Approach (09/21/21) Excision of Right Foot Subcutaneous Tissue and Fascia, Open Approach (09/21/21) Insertion of Infusion Device into Left External Jugular Vein, Percutaneous Approach (09/21/21) Insertion of Infusion Device into Superior Vena Cava, Percutaneous Approach (09/21/21) Labs on day of discharge: Laboratory Results - last 24 hr 12/05/22 12/06/22 12/06/22 19:44 05:30 07:16 Creatinine 0.89 Estim Creat Clear Calc 86.3 Estimated GFR > 60 POC Glucose 280 H 215 H 12/06/22 12/06/22 11:06 16:11 Creatinine Estim Creat Clear Calc Estimated GFR POC Glucose 221 H 239 H Discharge Plan Discharge Anticipated Discharge Date/Time: 12/06/22 17:22 Patient Disposition: Home, Self-Care Discharge Diagnosis: Chest pain cellulitis Sepsis, bacteremia Referrals: Nikhil Gagnon MD [Primary Care Provider] - 1 Week Discharge Medications: New clopidogrel 75 mg Tablet 75 mg PO DAILY Qty: 30 0RF cefuroxime axetil 500 mg tablet 500 mg PO BID Qty: 16 0RF Continued gabapentin 400 mg capsule 400 mg PO QID lisinopril 5 mg Tablet 5 mg PO DAILY Qty: 30 0RF Protocol: Hold for SBP< HOLD for SBP < : 90 (DME) shira Machadoc See Rx Instructions .Route Qty: 1 0RF Rx Instructions: As directed acetaminophen 500 mg tablet 2 caplet PO Q6H PRN (Reason: mild pain) methadone 10 mg/mL concentrate 130 mg PO DAILY Rx Instructions: take home bottles given to last until 11/28/22 metformin 500 mg Tablet 500 mg PO BIDWM 30 Days Qty: 60 0RF Eliquis 5 mg tablet 5 mg PO BID 30 Days Qty: 60 0RF nicotine 21 mg/24 hr Patch 24 Hour 21 mg transdermal DAILY Qty: 14 0RF alprazolam 0.5 mg tablet 0.5 mg PO DAILY PRN (Reason: Anxiety) Jardiance 25 mg tablet 25 mg PO DAILY atorvastatin 40 mg tablet 40 mg PO BEDTIME insulin glargine [Lantus Solostar U-100 Insulin] 100 unit/mL (3 mL) insulin pen 20 unit subcut DAILY insulin glargine [Lantus Solostar U-100 Insulin] 100 unit/mL (3 mL) insulin pen 35 unit subcut BEDTIME Discharge Orders: Discharge Order (Routine); Ordered 12/06/22 Ordered By: Jocelyn Medley Diet: Advance to usual diet Activity on Discharge: As tolerated Stand Alone Forms: Patient Portal Discharge page Care Plan Goals: Complete resolution of symptoms LAST METHADONE DOSE 12/06/22 @ 0725 Health Concerns: Cellulitis chest pain sepsis, bacteremia Plan of Treatment: Follow up with primary care provider Take all medications as prescribed Assessment: See discharge summary Discharge Date/Time: 12/06/22 18:15
--- NOTE | 2022-12-06 17:52 | PM.PNCARD ---
Subjective Subjective Date of Service: 12/06/22 Principal diagnosis: Abnormal EKG, elevated troponins Interval history: Patient currently complains of no chest pain. Myocardial perfusion imaging shows lateral ischemia. Review of Systems Constitutional: Reports no additional constitutional complaints Cardiovascular: Reports no additional cardiovascular complaints Respiratory: Reports no additional respiratory complaints Genitourinary: Reports no additional female genitourinary complaints Physical Exam Vital Signs: Last Vital Signs Temp 96.6 F L 12/06/22 16:00 Pulse 58 12/06/22 16:00 Resp 18 12/06/22 16:00 BP 131/66 12/06/22 16:00 Pulse Ox 100 12/06/22 07:18 O2 Del Method Room Air 12/06/22 16:00 O2 Flow Rate 4.0 12/06/22 07:18 Oxygen Flow Rate 4 11/28/22 13:30 BMI result Body Mass Index 34.1 GENERAL APPEARANCE: in no acute distress, pleasant. NECK: no carotid bruit, no jugular venous distention. SKIN: Cellulitis left lower extremity up to the knee. Small ulcer on the sole of the foot. HEART: no murmurs, regular rate and rhythm. LUNGS: clear to auscultation bilaterally. ABDOMEN: soft, nontender. EXTREMITIES: no edema. PERIPHERAL PULSES: equal. NEUROLOGIC: No gross deficits, AAO X 3 Objective Labs and Meds 12/04/22 05:58 12/06/22 05:30 Lab results: Laboratory Results - last 24 hr 12/05/22 12/06/22 12/06/22 19:44 05:30 07:16 Creatinine 0.89 Estim Creat Clear Calc 86.3 Estimated GFR > 60 POC Glucose 280 H 215 H 12/06/22 12/06/22 11:06 16:11 Creatinine Estim Creat Clear Calc Estimated GFR POC Glucose 221 H 239 H Imaging Radiologist's impression: Impressions Myocardial Perfusion Scan Nuc Med 12/06/22 10:00 Impression: 1. Myocardial perfusion imaging study shows ischemia in the lateral wall, circumflex distribution. 2. Gated LVEF is 56% during stress and 55% during rest. 3. Transient ischemic dilatation not present. EKG component of the test reported separately. Progress Note: A&P Assessment and plan (1) Chest pain: Status: Acute Assessment and Plan: Chest pain with elevated troponins abnormal EKG in the setting of bacteremia. Currently asymptomatic. Myocardial perfusion imaging suggestive of circumflex territory ischemia. Single-vessel disease noted on myocardial perfusion imaging. Will treat this with medications. Would start on Ecotrin 81 mg daily, high-intensity statin therapy with atorvastatin 80 mg and Toprol 25 mg daily. Medical therapy for coronary artery disease was discussed with patient. Continue other therapy for her diabetes as well as hypertension. Continue treatment for cellulitis. Will set up for follow-up in 2 weeks to follow-up on her stress testing and see if she remains symptomatic that require invasive approach for management. Will sign of the case at this point time. Patient can be discharged home. Thank you for allowing me to partake in the care Time Spent With Patient Time: Total time managing care of this patient today ____ minutes. Progress Note: Quality Stroke Does the patient have a stroke diagnosis?: No Procedures Date of Service Date of Service: 12/06/22
--- NOTE | 2022-12-06 17:54 | PC.NURSE ---
Methadone last dose paperwork given to patient per request.
== END 2022-12-06 18:15 | disposition home or self-care (01) | DRG 720 ==
LOC: HO.ED 15:39 → HO.EDOVER 19:24 → HO.IMC 20:22 → HO.S3 12-05 18:12
PROVIDERS: Physician Assistant; Physician Assistant Medical; Admitting Provider Student in an Organized Health Care Education/Training Program; Emergency Provider Student in an Organized Health Care Education/Training Program; PCP Internal Medicine; Visit Provider Nurse Practitioner Acute Care
DX: A40.1 Sepsis due to streptococcus, group B (principal); J96.11 Chronic respiratory failure with hypoxia; I24.8 Other forms of acute ischemic heart disease; E11.51 Type 2 diabetes mellitus with diabetic peripheral angiopathy without gangrene; L03.116 Cellulitis of left lower limb; Z99.81 Dependence on supplemental oxygen; F06.4 Anxiety disorder due to known physiological condition; F11.20 Opioid dependence, uncomplicated; I25.2 Old myocardial infarction; J44.9 Chronic obstructive pulmonary disease, unspecified; F17.210 Nicotine dependence, cigarettes, uncomplicated; E11.65 Type 2 diabetes mellitus with hyperglycemia; I10 Essential (primary) hypertension; R94.31 Abnormal electrocardiogram [ECG] [EKG]; E11.628 Type 2 diabetes mellitus with other skin complications; Z71.6 Tobacco abuse counseling; Z88.8 Allergy status to other drugs, medicaments and biological substances; Z79.4 Long term (current) use of insulin; Z79.01 Long term (current) use of anticoagulants; Z79.02 Long term (current) use of antithrombotics/antiplatelets; Z79.84 Long term (current) use of oral hypoglycemic drugs; Z79.899 Other long term (current) drug therapy
CPT/HCPCS: 36415; 71275; 78452; 80048; 80076; 80202; 80307; 82565; 82947; 83605; 83735; 83880; 84484; 85007; 85025; 85027; 85610; 87040; 87147; 87186; 87205; 93005; 93017; 93308; 93926; 93971; 99285; A9500; J0280; J0696; J2543; J2785; J3370; Q9957

== ENCOUNTER 2023-04-24 09:54 | Inpatient (IN) | payer MEDICAID, SELFPAY ==
--- NOTE | ~2023-04-24 | US_ITS ---
EXAMINATION: NONINVASIVE ASSESSMENT OF THE ARTERIES OF BOTH LOWER EXTREMITIES WITH DUPLEX CLINICAL INFORMATION: Ulcer. Diabetes. TECHNIQUE: Bilateral lower extremity duplex Doppler techniques with wave form analysis and measurement of velocities in the common femoral, profunda femoral, superficial femoral, popliteal and tibial arteries. The study was performed only at rest. Patient could not tolerate ankle brachial indices. COMPARISON: None FINDINGS: a) AT REST: RIGHT LE. Right direct duplex Doppler findings: There is atherosclerotic plaque. Subcutaneous edema in the lower leg. * Common femoral artery: 209 cm/s, Diastolic flow reversal: No * Superficial femoral artery (proximal, mid, distal): 133, 150 and 132 cm/s, Diastolic flow reversal: Yes in the mid SFA only * Popliteal artery: 162 cm/s, Diastolic flow reversal: No * Posterior tibial artery: 20 cm/s, Diastolic flow reversal: No LEFT LE. Left direct duplex Doppler findings: Atherosclerotic plaque.Focal narrowing of the mid SFA. Subcutaneous edema lower leg * Common femoral artery: 190 cm/s, Diastolic flow reversal: Yes * Superficial femoral artery (proximal, mid, distal): 142, 351 and 103 cm/s, Diastolic flow reversal: Yes * Popliteal artery: 133 cm/s, Diastolic flow reversal: No * Posterior tibial artery: 101 cm/s, Diastolic flow reversal: No US/US arterial duplex LE BI IMPRESSION: Right: Moderate atherosclerotic disease with increased peak systolic velocity and loss of diastolic flow reversal. No focal stenosis seen. Left: Moderate atherosclerotic disease with increased peak systolic velocity and loss of diastolic flow reversal. Focal stenosis of the mid right superficial femoral artery. .
--- NOTE | ~2023-04-24 | XR_ITS ---
EXAMINATION: XR CHEST CLINICAL INFORMATION: SOB COMPARISON: Chest x-ray 08/26/2022. CTA chest 08/25/2022. TECHNIQUE: Frontal view of the chest was obtained. FINDINGS: The lungs are hypoexpanded with patchy opacity right lung base. Focal lucencies seen within the right lower lobe. This is most likely secondary to right anterior diaphragmatic hernia. Rest of lungs are clear. The heart size is borderline enlarged. Pulmonary vascularities within normal limits. XR/XR chest 1V IMPRESSION: Moderate opacity right lower lobe and focal air collection likely sequelae of right anterior diaphragmatic hernia as was noted on previous CTA chest 08/25/2022.
--- NOTE | ~2023-04-24 | US_ITS ---
EXAMINATION: US VENOUS ULTRASOUND WITH DOPPLER LOWER EXTREMITY, BILATERAL CLINICAL INFORMATION: Bilateral lower extremity swelling, erythema, wounds. COMPARISON: Venous ultrasound 11/28/2022. TECHNIQUE: Ultrasound of the deep veins is performed from the hip to the calf with compression sonography and color and pulse Doppler assessment. Spectral analysis with color-flow imaging is performed. FINDINGS: RIGHT: There is normal venous compression and respiratory variation and augmented flow. The visualized common femoral vein, superficial femoral vein, profunda femoral vein, popliteal vein, and the trifurcation region shows no evidence of deep venous thrombosis. There is no significant popliteal fossa cyst. LEFT: There is normal venous compression and respiratory variation and augmented flow. The visualized common femoral vein, superficial femoral vein, profunda femoral vein, popliteal vein, and the trifurcation region shows no evidence of deep venous thrombosis. There is no significant popliteal fossa cyst. US/US venous duplex LE BI IMPRESSION: No DVT demonstrated in the bilateral lower extremities.
--- NOTE | 2023-04-24 10:00 | ED_ITS ---
HPI - General Adult General Chief complaint: Wound/Laceration Stated complaint: LOWER EXTREMITY PAIN OPEN ULCER Time Seen by Provider: 04/24/23 09:59 Source: patient, EMS, RN notes reviewed and old records reviewed Mode of arrival: EMS History of Present Illness HPI narrative: 52-year-old female with a past medical history of PE/DVT on Eliquis, respiratory failure, NSTEMI, opiate use disorder, osteomyelitis, diabetes, anxiety, substance abuse, presenting to the ED via EMS complaining of bilateral LE erythema, swelling, and pain with open wound to RLE, worsening over the past 5 days. Reports malodorous drainage. Reports episode of SOB this morning related to her anxiety. denies known injury/ fall, fever/ chills, numbness/tingling. Onset (ago): day(s) Related Data Home Medications Medication Instructions Recorded Confirmed gabapentin 400 mg capsule 400 mg PO QID 09/21/21 11/28/22 acetaminophen 500 mg tablet 2 caplet PO Q6H PRN mild pain 08/24/22 11/28/22 methadone 10 mg/mL oral concentrate 130 mg PO DAILY 08/24/22 11/29/22 alprazolam 0.5 mg tablet 0.5 mg PO DAILY PRN Anxiety 11/28/22 11/28/22 atorvastatin 40 mg tablet 40 mg PO BEDTIME 11/28/22 11/28/22 empagliflozin 25 mg tablet 25 mg PO DAILY 11/28/22 11/28/22 (Jardiance) insulin glargine 100 unit/mL (3 20 unit subcut DAILY 11/28/22 11/28/22 mL) subcutaneous pen (Lantus Solostar U-100 Insulin) Previous Rx's Medication Instructions Recorded lisinopril 5 mg tablet 5 mg PO DAILY #30 tabs 09/29/21 walker #1 ea 10/04/21 apixaban 5 mg tablet (Eliquis) 5 mg PO BID 30 days #60 tabs 09/03/22 metformin 500 mg tablet 500 mg PO BIDWM 30 days #60 tabs 09/03/22 nicotine 21 mg/24 hr daily 21 mg transdermal DAILY #14 ea 09/04/22 transdermal patch Allergies Allergy/AdvReac Type Severity Reaction Status Date / Time prednisone [PREDNISONE] Allergy Unknown RASH Verified 04/24/23 12:04 Review of Systems 2 Review of Systems: Constitutional: No Fever, No Chills, No Fatigue, No Malaise ENT/Mouth: No Ear Pain, No Nasal Congestion, No sore throat, No Rhinorrhea, No Swallowing Difficulty Eyes: No Eye Pain, No Swelling, No Redness, No Vision Changes Cardiovascular: No Chest Pain, + SOB (resolved), No Edema, No Palpitations, +LE edema Respiratory: No Cough, No Sputum, No Dyspnea Gastrointestinal: No Nausea, No Vomiting, No Diarrhea, No Constipation, No Abdominal pain Genitourinary: No Dysuria, No Urinary Frequency, No Hematuria, No Flank Pain, No Urinary Flow Changes, No Hesitancy Musculoskeletal: No joint pain, No Myalgias, +Joint Swelling Skin: + Skin Lesions, No rash Neuro: No Weakness, No Numbness, No Paresthesias, No Headache Yes all other systems are reviewed and are negative Constitutional: Constitutional: Reports as per [facility] Past Medical History Attestation statement: The following information was validated with the patient. Source: old records reviewed Medical History Peripheral arterial disease Pulmonary nodules Chronic respiratory failure Pneumonitis Obesity (BMI 35.0-39.9 without comorbidity) Acute respiratory failure with hypoxia NSTEMI (non-ST elevated myocardial infarction) Opioid use disorder Osteomyelitis Diabetes Anxiety Substance abuse Surgical History S/P amputation of foot Status post transmetatarsal amputation of right foot (09/24/21) Social History Social History Household Members: Family Housing: Apartment Do you presently have visiting nurse or other home services: No Alcohol intake: never Patient Tobacco Use Status: Current someday Tobacco user Tobacco use type: Cigarette Cigarette Packs Per Day: 1 Cigarettes Per Day: 1 e-Cigarette/Vaping Use: Currently Using Second Hand Smoke Exposure: Yes Substance Use Type: Marijuana Advance Directives: Yes Advance Directives on File: Yes Advance Directives Date on File: 09/22/21 service: No Current occupational status: unemployed Physical Exam ED Vital Signs: Vital Signs - 24 hr 04/24/23 10:01 04/24/23 13:38 04/24/23 13:40 Temperature 97.9 F 98.2 F Pulse Rate 78 80 Respiratory Rate 18 18 18 Blood Pressure 153/79 H 159/88 H Pulse Oximetry 100 100 Oxygen Delivery Method Room Air Room Air BMI result Body Mass Index 36.6 Const General: cooperative, healthy appearing and no acute distress Orientation/consciousness: patient oriented x3 Limitations: no limitations HENMT Head: Yes normal to inspection and Yes atraumatic Ears: hearing grossly normal bilaterally General nose exam: Normal external nose present Face and sinus: Yes normal facial exam Eyes General: appearance normal, both eyes and all related structures EOM: EOMs intact bilaterally Neck Neck: Yes normal visual inspection and Yes no meningeal signs Resp Effort & Inspection: normal respiratory effort and no respiratory distress Auscultation: clear to auscultation bilaterally and no wheezes Cardio Rate: regular rate Heart sounds: S1 normal heart sound present and S2 normal heart sound present Peripheral pulses: Peripheral pulses 2+ throughout Skin Rashes: no rashes Neuro General: patient oriented x3, tone normal and no meningeal signs Cranial nerves: Yes CN's II-XII intact bilaterally Gait exam (Neuro): Normal gait present Extrem Other: please refer to images above. Bilateral LE with circumferential erythema and warmth extending proximally to distal medial thigh. + Edema + open wound to RLE with malodorous drainage. No fluctuance/induration. + open wound to right foot with slight drainage. NV intact Course Course Course Narrative: -1335-- no leukocytosis. Labs otherwise reassuring. US venous duplex LE BI IMPRESSION: No DVT demonstrated in the bilateral lower extremities. > Plan to admit for further management Medications Administered Generic Name Dose Route Start Last Admin Trade Name Freq PRN Reason Stop Dose Admin Vancomycin HCl 2,000 mg in 500 mls @ 250 mls/hr 04/24/23 16:00 04/24/23 16:04 Vancomycin/Ns IV 04/24/23 17:59 250 mls/hr ONCE ONE Administration Sodium Chloride 3 ml 04/24/23 16:00 04/24/23 16:05 0.9 % Sodium Chloride Flush 3 Ml Syringe IVFLUSH 3 ml QSHIFT DADA Administration Discontinued Medications Generic Name Dose Route Start Last Admin Trade Name Freq PRN Reason Stop Dose Admin Ceftriaxone Sodium 1 gm/ 50 mls @ 100 mls/hr 04/24/23 10:28 04/24/23 12:03 Sodium Chloride IV 04/24/23 10:57 Infused ONCE ONE Infusion Morphine Sulfate 2 mg 04/24/23 13:31 04/24/23 13:40 Morphine Sulfate 2 Mg/Ml Cartridge IVPUSH 04/24/23 13:32 2 mg ONCE ONE Administration Protocol Medical Decision Making Medical Decision Making [facility] Narrative: 52-year-old female with a past medical history of PE/DVT on Eliquis, respiratory failure, NSTEMI, opiate use disorder, osteomyelitis, diabetes, anxiety, substance abuse, presenting to the ED via EMS complaining of bilateral LE erythema, swelling, and pain with open wound to RLE, worsening over the past 5 days. On exam afebrile, NAD, anxious, please refer to images above. Concern for diabetic ulcers and cellulitis vs DVT. Low suspicion for necrotizing fasciitis at this time or arterial occlusion. Unlikely osteomyelitis Plan: Labs including lactic/ blood cultures, venous duplex ultrasound, empiric IV antibiotics, admission Please refer to course for remaining clinical decision making, interpretation of labs/imaging results, and discussions with consultants and/or family members. Differential Diagnosis Differential Diagnoses: The differential diagnosis associated with the presentation includes As above Admission/Observation Consideration of admission/observation: Escalation of care including admission/observation considered Consult Healthcare Provider Management of the patient was discussed with: Hospitalist Lab Data [facility] Lab Attestation statement: I reviewed the patient's lab results. 04/24/23 10:57 04/24/23 10:56 Labs: Lab Results 04/24/23 04/24/23 Range/Units 10:56 10:57 WBC 9.3 (4.8-10.8) X10*3/uL RBC 4.66 (4.20-5.50) X10*6/uL Hgb 13.3 D (12.0-16.0) g/dl Hct 41.5 (37.0-47.0) % MCV 89.1 (80.0-98.0) fL MCH 28.5 (27.0-33.0) pg MCHC 32.0 (31.0-35.0) g/dl RDW 14.6 (11.0-16.0) % Plt Count 368 (160-400) X10*3/uL MPV 9.7 (9.4-12.3) fL Immature Gran % (Auto) 0.5 H (0.0-0.4) % Neut % (Auto) 76.9 H (45-73) % Lymph % (Auto) 18.2 L (20-40) % [place] % (Auto) 3.3 (2-11) % Eos % (Auto) 0.2 (0-4) % Baso % (Auto) 0.9 (0-2) % Lymph # (Auto) 1.7 (1.2-4.9) X10*3/uL [place] # (Auto) 0.3 (0.1-1.2) X10*3/uL Eos # (Auto) 0.0 (0.0-0.4) X10*3/uL Baso # (Auto) 0.1 (0.0-0.2) X10*3/uL Abs Immat Gran (auto) 0.05 H (0.00-0.03) X10*3/uL Absolute Neuts (auto) 7.2 (2.0-8.3) x10*3/uL Absolute Nucleated RBC 0.000 (0.0-0.012) X10*3/uL Nucleated RBC % (auto) 0.0 (0.0-0.2) /100WBC PT 11.4 (11.1-13.3) SEC INR 0.9 (0.9-1.1) Sodium 135 (135-145) mmol/L Potassium 4.2 (3.3-5.1) mmol/L Chloride 98 (96-108) mmol/L Carbon Dioxide 27 (22-29) mmol/L Anion Gap 14 (12-20) BUN 15 (9-16) mg/dL Creatinine 0.80 (0.5-1.4) mg/dL Estim Creat Clear Calc 99.6 Estimated GFR > 60 Random Glucose 249 H (60-115) mg/dL Lactic Acid 1.8 (0.5-2.0) mmol/L Calcium 9.7 (8.4-10.2) mg/dL Magnesium 1.7 (1.6-2.6) mg/dL Total Bilirubin 0.4 (0.0-1.0) mg/dL Direct Bilirubin 0.1 (0.0-0.5) mg/dL AST 14 (5-31) U/L ALT 11 (0-31) U/L Alkaline Phosphatase 106 (39-117) U/L B-Natriuretic Peptide 100 (<100) pg/mL Total Protein 8.4 H (6.5-8.0) g/dL Albumin 4.2 (3.5-5.0) g/dL Radiology Impression Discussion of test interpretation with radiology: I have reviewed the radiologist's reading. Independent Historian Clinical information obtained from an independent historian. History obtained from or confirmed by: EMS External Record Review External record reviewed: Inpatient record, Office record, Outpatient record, Prior outpatient labs, Prior outpatient radiology, Primary care record and Outside ED record Tests considered The following testing was considered but not selected: As above Prescription Management I considered prescription management with: Pain Medication and Antibiotic Chronic Conditions Patient?s care impacted by: Diabetes Critical Care Time Critical Care Time Critical Care Time: Yes Total Critical Care Time: 35 Attestation: I have personally provided critical care time exclusive of time spent on separately billable procedures. Time includes review of lab data, radiology results, discussion with consultants, and monitoring for potential decompensation. Intervention performed as documented. Discharge Plan Discharge Clinical Impression: Bilateral cellulitis of lower leg, Diabetic ulcer of lower leg Patient Disposition: Admitted As Inpatient
[2023-04-24 10:01] VITALS: BP 153/79; PULSE 78; PULSE 82; RESP 18; TEMP 36.6; O2SAT 100; O2SAT 97; BMI 36.6
--- NOTE | 2023-04-24 10:45 | PC.NURSE ---
A & Ox3. c/o SOB - O2 at 100% RA. Abd soft and non tender. BS x4 quadrants. BLE edema, warm to touch, reddened. RLE has wound present for 5 days per pt. Wound has slough at upper aspect, with some clear drainage. No odor present.
[2023-04-24 11:08] LABS: MANUAL DIFF FLAG NO
[2023-04-24] MEDS: cefTRIAXone sodium 1 GM in 0.9 % Sodium Chloride 50 ML IV (11:13)
[2023-04-24 11:15] LABS: Basophils Absolute Auto 0.1 X10*3/uL (0.0-0.2); Basophils Percent Auto 0.9 % (0-2); Eosinophils Percent Auto 0.2 % (0-4); Hematocrit 41.5 % (37.0-47.0); Hemoglobin 13.3 g/dl (12.0-16.0); Imm Gran Abs Auto 0.05 X10*3/uL (0.00-0.03); Imm Gran Pct Auto 0.5 % (0.0-0.4); Lymphocytes Absolute Auto 1.7 X10*3/uL (1.2-4.9); Lymphocytes Percent Auto 18.2 % (20-40); Mean Corpuscular Hemoglobin 28.5 pg (27.0-33.0); Mean Corpuscular Volume 89.1 fL (80.0-98.0); Mean Platelet Volume 9.7 fL (9.4-12.3); Monocytes Absolute Auto 0.3 X10*3/uL (0.1-1.2); Monocytes Percent Auto 3.3 % (2-11); Neutrophils Absolute Auto 7.2 x10*3/uL (2.0-8.3); Neutrophils Percent Auto 76.9 % (45-73); Platelet Count 368 X10*3/uL (160-400); Red Blood Count 4.66 X10*6/uL (4.20-5.50); Red Cell Distribution Width 14.6 % (11.0-16.0); White Blood Count 9.3 X10*3/uL (4.8-10.8)
[2023-04-24 11:18] LABS: INTERNATIONAL NORM RATIO 0.9 (0.9-1.1); Prothrombin Time 11.4 SEC (11.1-13.3)
[2023-04-24 11:20] LABS: Lactic Acid 1.8 mmol/L (0.5-2.0)
[2023-04-24 11:25] LABS: Alanine Aminotransferase 11 U/L (0-31); Albumin Level 4.2 g/dL (3.5-5.0); Alkaline Phosphatase 106 U/L (39-117); Anion Gap 14 (12-20); Aspartate Amino Transferase 14 U/L (5-31); Bilirubin Direct 0.1 mg/dL (0.0-0.5); Bilirubin Total 0.4 mg/dL (0.0-1.0); Blood Urea Nitrogen 15 mg/dL (9-16); Calcium 9.7 mg/dL (8.4-10.2); Carbon Dioxide 27 mmol/L (22-29); Chloride 98 mmol/L (96-108); Creatinine Clr Calc Pharmacy 99.6; Estimated Glomerular Filt Rate > 60; Glucose Random 249 mg/dL (60-115); Magnesium 1.7 mg/dL (1.6-2.6); Potassium 4.2 mmol/L (3.3-5.1); Sodium 135 mmol/L (135-145); Total Protein 8.4 g/dL (6.5-8.0)
--- NOTE | 2023-04-24 11:32 | PC.NURSE ---
Pt difficult stick. two attempts made by two different nurses. Dr. Cha was able to place 20g R upper arm via ultrasound. Labs drawn and antibiotics given as ordered.
[2023-04-24 11:34] LABS: B Type Natriuretic Peptide 100 pg/mL (<100)
[2023-04-24 13:38] VITALS: BP 159/88; PULSE 80; RESP 18; TEMP 36.8; O2SAT 100
[2023-04-24 13:40] VITALS: RESP 18
[2023-04-24] MEDS: Morphine Sulfate 2 MG/ML CARTRIDGE IVPUSH (13:40)
--- NOTE | 2023-04-24 14:57 | MHC.EDTECH ---
pt was found incontinent of urine with a pure wick. the pure wick was fixed, pt changed into clean linen, warm blanket given, call cai given.
--- NOTE | 2023-04-24 15:02 | PM.IMHP ---
History of Present Illness Date of Service: 04/24/23 Attending physician on admission: Hima Garcia Chief Complaint: wound RLE 52-year-old female with history of peripheral arterial disease, history pneumonitis, history NSTEMI, insulin-dependent type 2 diabetes, osteomyelitis s/p right transmetatarsal amputation, history of polysubstance abuse, history of bilateral pulmonary embolism on lifelong anticoagulation with Eliquis, chronic opiate dependence on methadone following with [facility] in [place] presented to the ED earlier today for evaluation new wound to the anterior aspect of the right lower leg. She states she developed a ?bubble? over the mid tibia about 5 days ago that ruptured on the same day. Initially there was drainage of clear fluids but states the last 2 days has had more purulent drainage. There is also significant erythema and warmth of the bilateral lower extremities. Currently rates her pain as a 10/10. She also notes a chronic wound at the transmetatarsal amputation site that has been present for about 4 months. She denies any drainage of this wound and has not sought medical attention. She denies any fevers, chills. She does report a remote history of IV drug abuse inhaled heroin abuse about 1 year ago but states she has not used any illicit drugs since. She currently smokes 1 cigarette daily and is working on quitting but does vape nicotine throughout the day. On arrival, vitals stable, patient afebrile. There is no leukocytosis. Renal function normal, electrolyte levels normal. Glucose 249. Lactic acid 1.8. Venous duplex of the bilateral lower extremities negative for DVT. Chest x-ray shows moderate opacity in the right lower lobe and focal air collection likely sequela of right anterior diaphragmatic hernia. She is endorsing nonproductive cough, chest congestion, nasal congestion that started today. She does have a history of MRSA bacteremia treated in September 2021. In the ED, given IV ceftriaxone and IV morphine. Review of Systems Review of Systems: General: No fevers, malaise, unintentional weight loss HEENT: +nasal congestion. No sore throat, rhinorrhea, sinus pain, ear pain Cardiovascular: No chest pain, palpitations, or leg edema Respiratory: +cough, +chest congestion. No shortness of breath, wheezing GI: No abdominal pain, nausea, vomiting, diarrhea, constipation, melena, hematochezia : No dysuria, hematuria, increased urinary frequency, decreased urinary output MSK: No myalgia, back pain Neuro: No headaches, weakness, paresthesias Skin: No rashes or lesions. +wound R garcia, +wound R transmetatarsal site [facility] Medical History Peripheral arterial disease Pulmonary nodules Chronic respiratory failure Pneumonitis Obesity (BMI 35.0-39.9 without comorbidity) Acute respiratory failure with hypoxia NSTEMI (non-ST elevated myocardial infarction) Opioid use disorder Osteomyelitis Diabetes Anxiety Substance abuse Surgical History S/P amputation of foot Status post transmetatarsal amputation of right foot (09/24/21) Social History Household Members: Family Housing: Apartment Do you presently have visiting nurse or other home services: No Alcohol intake: never Patient Tobacco Use Status: Current someday Tobacco user Tobacco use type: Cigarette Cigarette Packs Per Day: 1 Cigarettes Per Day: 1 e-Cigarette/Vaping Use: Currently Using Second Hand Smoke Exposure: Yes Substance Use Type: Marijuana Advance Directives: Yes Advance Directives on File: Yes Advance Directives Date on File: 09/22/21 service: No Current occupational status: unemployed Meds Allergies Allergy/AdvReac Type Severity Reaction Status Date / Time prednisone [PREDNISONE] Allergy Unknown RASH Verified 04/24/23 12:04 Active Medications: Current Medications Acetaminophen (Acetaminophen 325 Mg Tablet) 650 mg PO Q6H PRN PRN Reason: Pain, Mild (Pain Scale 1-3) Docusate Sodium (Docusate Sodium 100 Mg Capsule) 100 mg PO DAILY PRN PRN Reason: Constipation Morphine Sulfate (Morphine Sulfate 4 Mg/Ml Cartridge) 4 mg IVPUSH Q4H PRN; Protocol PRN Reason: Pain, Severe (Pain Scale 7-10) Ondansetron HCl (Ondansetron Hcl 4 Mg/2 Ml Vial) 4 mg IVPUSH Q8H PRN PRN Reason: Nausea and Vomiting Oxycodone HCl (Oxycodone Hcl Immed Release 5 Mg Tablet) 5 mg PO Q4H PRN PRN Reason: Pain, Moderate(Pain Scale 4-6) Pharmacy Consult (Consult Rx Vancomycin Dosing) 1 each MISCELLANE DAILY PRN PRN Reason: Consult order Sodium Chloride (0.9 % Sodium Chloride Flush 3 Ml Syringe) 3 ml IVFLUSH QSHIFT [facility] Home Medications Medication Instructions Recorded Confirmed Last Taken Type gabapentin 400 mg capsule 400 mg PO QID 09/21/21 11/28/22 11/28/22 History acetaminophen 500 mg tablet 2 caplet PO Q6H PRN mild pain 08/24/22 11/28/22 Unknown History methadone 10 mg/mL oral concentrate 130 mg PO DAILY 08/24/22 11/29/22 11/28/22 History alprazolam 0.5 mg tablet 0.5 mg PO DAILY PRN Anxiety 11/28/22 11/28/22 Unknown History atorvastatin 40 mg tablet 40 mg PO BEDTIME 11/28/22 11/28/22 11/27/22 History empagliflozin 25 mg tablet 25 mg PO DAILY 11/28/22 11/28/22 11/28/22 History (Jardiance) insulin glargine 100 unit/mL (3 20 unit subcut DAILY 11/28/22 11/28/22 11/28/22 History mL) subcutaneous pen (Lantus Solostar U-100 Insulin) Physical Exam Vital Signs and Narrative: Vital Signs: Last Vital Signs Temp 98.2 F 04/24/23 13:38 Pulse 80 04/24/23 13:38 Resp 18 04/24/23 13:40 BP 159/88 H 04/24/23 13:38 Pulse Ox 100 04/24/23 13:38 O2 Del Method Room Air 04/24/23 13:38 BMI result Body Mass Index 36.6 Constitutional - Awake and Alert, No apparent distress Eyes - PERRLA, EOMI Cardiovascular - S1S2, RRR, barely palpable pedal pulses complicated by BLE edema Respiratory - Normal lung expansion, Normal respiratory effort, No respiratory distress, CTA bilaterally Gastrointestinal - NT / ND; +BS; No rebound or guarding Extremities - no calf tenderness bilaterally, no swelling Skin - Warm/Dry. BLE with significant erythema and warmth with about 8cm x 8cm stage 2 nonpressure ulcer anterior right lower leg with granulation and purulent drainage with foul odor. There is also chronic appearing stage 2 non pressure ulcer at site of R TMA without drainage or surrounding erythema. There is also stage 2 ulcer lateral aspect left foot without drainage or surrounding erythema. Neurological - Alert & oriented x3 Results Labs 04/24/23 10:57 04/24/23 10:56 Labs: Laboratory Results - last 24 hr 04/24/23 04/24/23 10:56 10:57 MCV 89.1 MCH 28.5 MCHC 32.0 RDW 14.6 Plt Count 368 MPV 9.7 Immature Gran % (Auto) 0.5 H Neut % (Auto) 76.9 H Lymph % (Auto) 18.2 L [place] % (Auto) 3.3 Eos % (Auto) 0.2 Baso % (Auto) 0.9 Lymph # (Auto) 1.7 [place] # (Auto) 0.3 Eos # (Auto) 0.0 Baso # (Auto) 0.1 Abs Immat Gran (auto) 0.05 H Absolute Neuts (auto) 7.2 Absolute Nucleated RBC 0.000 Nucleated RBC % (auto) 0.0 PT 11.4 INR 0.9 Anion Gap 14 Estim Creat Clear Calc 99.6 Estimated GFR > 60 Random Glucose 249 H Lactic Acid 1.8 Calcium 9.7 Magnesium 1.7 Total Bilirubin 0.4 Direct Bilirubin 0.1 AST 14 ALT 11 Alkaline Phosphatase 106 B-Natriuretic Peptide 100 Total Protein 8.4 H Albumin 4.2 Imaging Radiologist's Impressions: Impressions Venous Duplex 04/24/23 11:28 IMPRESSION: No DVT demonstrated in the bilateral lower extremities. Chest X-Ray 04/24/23 13:42 IMPRESSION: Moderate opacity right lower lobe and focal air collection likely sequelae of right anterior diaphragmatic hernia as was noted on previous CTA chest 08/25/2022. Assessment and Plan (1) Diabetic ulcer of lower leg: Status: Acute (2) Bilateral cellulitis of lower leg: Status: Acute (3) 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: Status: Acute (4) Pneumonia: Status: Resolved Plan 52-year-old female with history of peripheral arterial disease, history pneumonitis, history NSTEMI, insulin-dependent type 2 diabetes, osteomyelitis s/p right transmetatarsal amputation, history of polysubstance abuse, history of bilateral pulmonary embolism on lifelong anticoagulation with Eliquis, chronic opiate dependence on methadone following with [facility] in [place] admitted for extensive cellulitis BLE with infected diabetic ulcer RLE. #Acute cellulitis BLE with background venous stasis dermatitis -Hx MRSA bacteremia history of IV drug abuse -IV vancomycin -follow CBC, cultures # infected stage II non pressure ulcer of the right lower extremity with purulent drainage -IV vancomycin and Zosyn -general surgery consult for possible debridement -follow CBC, cultures -material analyst # chronic stage II diabetic ulcer at right TMA site -general surgery consult -arterial Doppler right lower extremity -material analyst #Chronic appearing stage 2 diabetic foot ulcer left food -General surgery consult -material analyst #Acute pneumonia RLE -IV zosyn as above -symptomatic management -patient afebrile, no hypoxia -respiratory pathogen panel pending -strep pneumo antigen, Legionella antigen, sputum culture pending -follow CBC, cultures # history bilateral pulmonary embolism -continue Eliquis # opioid dependence -continue methadone # hyperlipidemia -continue statin # insulin-dependent type 2 diabetes -POC glucose -diabetic diet -Humalog on sliding scale -dose adjusted basal insulin -continue Jardiance, hold metformin # nicotine dependence -nicotine patch -smoking cessation counseling DVT prophylaxis-Eliquis Full code Patient requires inpatient stay at least 2 midnights for management of extensive cellulitis of bilateral lower extremities with infected wound inpatient at risk for MRSA infection requiring IV antibiotics, expert consultation Time Spent With Patient Time: Total time managing care of this patient today ____ minutes. Quality Stroke Does the patient have a stroke diagnosis?: No VTE Prior VTE?: Yes VTE Risk Level:: Medical - moderate - high VTE Device Contraindication: Treatment Not Indicated VTE Drug Contraindication: N/A - Med Ordered
[2023-04-24] MEDS: vancomycin/NS 2,000 MG/500 ML PLAST..BAG 250 MG IV (16:04)
[2023-04-24] MEDS: 0.9 % Sodium Chloride Flush 3 ML SYRINGE IVFLUSH ×2 (16:05→23:40)
--- NOTE | 2023-04-24 16:37 | PHA.MEDREC ---
Pharmacy Consult ? Medication Reconciliation Pharmacy has completed the medication reconciliation. Patient states she gets methadone from [facility] 135mg; usually takes dose at 6am. Said she had her last dose sheet on her but could not find it while I was with her. Will have to get verification sheet in the morning
--- NOTE | 2023-04-24 16:48 | P.CONGS_ITS ---
History of Present Illness Consult details Consult date: 04/24/23 Narrative: 52F referred for cellulitis on boith lower legs. She has multiple medical problems including polysubstance abuse, hx of PE, DM, chronic respiratory failure, DVT and non STEMI. She describes seeing a blister on the anterior lower leg on the right about 5 days ago. She says she has had pain as well. She then noticed redness and edema of both lower legs yesterday. She denies any recent trauma to the legs. She is know to me for a transmet amputation of the entire right foot in the past for osteomyelitis. She denies any fever. Review of Systems 2 Constitutional: Constitutional: Denies chills and Denies fever(s) Cardiovascular: Cardiovascular: Denies chest pain, Denies dyspnea and Denies dyspnea on exertion Respiratory: Respiratory: Denies cough, Denies dyspnea and Denies dyspnea on exertion Gastrointestinal: Gastrointestinal: Denies hematochezia and Denies change in bowel habits Genitourinary: Genitourinary: Denies hematuria Musculoskeletal: Musculoskeletal: Denies back pain and Denies limited range of motion Neurologic: Denies focal weakness and Denies convulsions Psychiatric: Psychiatric: Denies depression and Denies mood swings [facility] Past Medical History Medical History (Updated 04/26/23 @ 08:48 by Kirill Muhammad MD) Eschar of lower leg Peripheral arterial disease Pulmonary nodules Chronic respiratory failure Pneumonitis Obesity (BMI 35.0-39.9 without comorbidity) Acute respiratory failure with hypoxia NSTEMI (non-ST elevated myocardial infarction) Opioid use disorder Osteomyelitis Diabetes Anxiety Substance abuse Surgical History Surgical History S/P amputation of foot Status post transmetatarsal amputation of right foot (09/24/21) Social History Social History Household Members: Other Household Members Other:: son Housing: Apartment Do you presently have visiting nurse or other home services: No Alcohol intake: never Patient Tobacco Use Status: Current everyday Tobacco user Tobacco use type: Cigarette Cigarette Packs Per Day: 0 Cigarettes Per Day: 1 Years Smoked: 40 e-Cigarette/Vaping Use: Currently Using Second Hand Smoke Exposure: No Substance Use Type: Marijuana Advance Directives Date on File: 09/22/21 service: No Current occupational status: unemployed Meds Allergies Allergy/AdvReac Type Severity Reaction Status Date / Time prednisone [PREDNISONE] Allergy Unknown RASH Verified 04/24/23 12:04 Active Medications: Current Medications Acetaminophen (Acetaminophen 325 Mg Tablet) 650 mg PO Q6H PRN PRN Reason: Pain, Mild (Pain Scale 1-3) Dextrose (Dextrose 50 % 25 Gm/50 Ml Syringe) 25 gm IVPUSH Q15M PRN; Protocol PRN Reason: per Hypoglycemia Standing Ord. Docusate Sodium (Docusate Sodium 100 Mg Capsule) 100 mg PO DAILY PRN PRN Reason: Constipation Glucose (Glucose Gel 15 Gm Gel..Gram.) 15 gm PO Q15M PRN; Protocol PRN Reason: per Hypoglycemia Standing Ord. Vancomycin HCl (Vancomycin/Ns) 2,000 mg in 500 mls @ 250 mls/hr IV ONCE ONE Stop: 04/24/23 17:59 Last Admin: 04/24/23 16:04 Dose: 250 mls/hr Insulin Human Lispro (Insulin Lispro 100 Unit/Ml 3 Ml Vial) 0 unit SUBCUT QIDACHS [facility]; Protocol Morphine Sulfate (Morphine Sulfate 4 Mg/Ml Cartridge) 4 mg IVPUSH Q4H PRN; Protocol PRN Reason: Pain, Severe (Pain Scale 7-10) Nicotine (Nicotine 21 Mg Patch.Td24) 21 mg TRANSDERMA DAILY [facility] Ondansetron HCl (Ondansetron Hcl 4 Mg/2 Ml Vial) 4 mg IVPUSH Q8H PRN PRN Reason: Nausea and Vomiting Oxycodone HCl (Oxycodone Hcl Immed Release 5 Mg Tablet) 5 mg PO Q4H PRN PRN Reason: Pain, Moderate(Pain Scale 4-6) Pharmacy Consult (Consult Rx Vancomycin Dosing) 1 each MISCELLANE DAILY PRN PRN Reason: Consult order Sodium Chloride (0.9 % Sodium Chloride Flush 3 Ml Syringe) 3 ml IVFLUSH [facility] Last Admin: 04/24/23 16:05 Dose: 3 ml Home Medications Medication Instructions Recorded Confirmed Last Taken Type gabapentin 400 mg capsule 400 mg PO QID 09/21/21 04/24/23 11/28/22 History acetaminophen 500 mg tablet 2 caplet PO Q6H PRN mild pain 08/24/22 04/24/23 Unknown History methadone 10 mg/mL oral concentrate 135 mg PO DAILY 08/24/22 04/25/23 04/24/23 History alprazolam 0.5 mg tablet 0.5 mg PO DAILY PRN Anxiety 11/28/22 04/24/23 Unknown History atorvastatin 40 mg tablet 40 mg PO BEDTIME 11/28/22 04/24/23 11/27/22 History empagliflozin 25 mg tablet 25 mg PO DAILY 11/28/22 04/24/23 11/28/22 History (Jardiance) insulin glargine 100 unit/mL (3 35 unit subcut BEDTIME 11/28/22 04/24/23 11/28/22 History mL) subcutaneous pen (Lantus Solostar U-100 Insulin) Physical Exam 2 Vital Signs: Vital Signs: Last Vital Signs Temp 98.2 F 04/24/23 13:38 Pulse 80 04/24/23 13:38 Resp 18 04/24/23 13:40 BP 159/88 H 04/24/23 13:38 Pulse Ox 100 04/24/23 13:38 O2 Del Method Room Air 04/24/23 13:38 BMI result Body Mass Index 36.6 Const: Other: nonseptic looking General: comfortable and no acute distress Resp: Effort & Inspection: normal respiratory effort Cardio: Rate: regular rate GI: Palpation (GI): Soft to palpation, not firm and nontender Extrem: Other: diffuse redness of both lower legs; dry superficial thin scab on the anterior right lower leg, about 7 cm in widest diameter, no obvious gangrene Results Labs 04/26/23 05:53 04/26/23 05:53 Labs: Abnormal lab results 04/24/23 04/24/23 Range/Units 10:56 10:57 Immature Gran % (Auto) 0.5 H (0.0-0.4) % Neut % (Auto) 76.9 H (45-73) % Lymph % (Auto) 18.2 L (20-40) % Abs Immat Gran (auto) 0.05 H (0.00-0.03) X10*3/uL Random Glucose 249 H (60-115) mg/dL Total Protein 8.4 H (6.5-8.0) g/dL Short CBC 04/24/23 Range/Units 10:57 WBC 9.3 (4.8-10.8) X10*3/uL Hgb 13.3 D (12.0-16.0) g/dl Hct 41.5 (37.0-47.0) % Plt Count 368 (160-400) X10*3/uL BMP 04/24/23 10:56 Sodium 135 Potassium 4.2 Chloride 98 Carbon Dioxide 27 BUN 15 Creatinine 0.80 Calcium 9.7 Liver Function 04/24/23 Range/Units 10:56 Total Bilirubin 0.4 (0.0-1.0) mg/dL Direct Bilirubin 0.1 (0.0-0.5) mg/dL AST 14 (5-31) U/L ALT 11 (0-31) U/L Alkaline Phosphatase 106 (39-117) U/L Albumin 4.2 (3.5-5.0) g/dL All other labs normal. Imaging Additional studies: Laboratory Results WBC 9.3 X10*3/uL (4.8-10.8) 04/24/23 10:57 RBC 4.66 X10*6/uL (4.20-5.50) 04/24/23 10:57 Hgb 13.3 g/dl (12.0-16.0) D 04/24/23 10:57 Hct 41.5 % (37.0-47.0) 04/24/23 10:57 MCV 89.1 fL (80.0-98.0) 04/24/23 10:57 MCH 28.5 pg (27.0-33.0) 04/24/23 10:57 MCHC 32.0 g/dl (31.0-35.0) 04/24/23 10:57 RDW 14.6 % (11.0-16.0) 04/24/23 10:57 Plt Count 368 X10*3/uL (160-400) 04/24/23 10:57 MPV 9.7 fL (9.4-12.3) 04/24/23 10:57 Immature Gran % (Auto) 0.5 % (0.0-0.4) H 04/24/23 10:57 Neut % (Auto) 76.9 % (45-73) H 04/24/23 10:57 Lymph % (Auto) 18.2 % (20-40) L 04/24/23 10:57 [place] % (Auto) 3.3 % (2-11) 04/24/23 10:57 Eos % (Auto) 0.2 % (0-4) 04/24/23 10:57 Baso % (Auto) 0.9 % (0-2) 04/24/23 10:57 Lymph # (Auto) 1.7 X10*3/uL (1.2-4.9) 04/24/23 10:57 [place] # (Auto) 0.3 X10*3/uL (0.1-1.2) 04/24/23 10:57 Eos # (Auto) 0.0 X10*3/uL (0.0-0.4) 04/24/23 10:57 Baso # (Auto) 0.1 X10*3/uL (0.0-0.2) 04/24/23 10:57 Abs Immat Gran (auto) 0.05 X10*3/uL (0.00-0.03) H 04/24/23 10:57 Absolute Neuts (auto) 7.2 x10*3/uL (2.0-8.3) 04/24/23 10:57 Absolute Nucleated RBC 0.000 X10*3/uL (0.0-0.012) 04/24/23 10:57 Nucleated RBC % (auto) 0.0 /100WBC (0.0-0.2) 04/24/23 10:57 PT 11.4 SEC (11.1-13.3) 04/24/23 10:57 INR 0.9 (0.9-1.1) 04/24/23 10:57 Sodium 135 mmol/L (135-145) 04/24/23 10:56 Potassium 4.2 mmol/L (3.3-5.1) 04/24/23 10:56 Chloride 98 mmol/L (96-108) 04/24/23 10:56 Carbon Dioxide 27 mmol/L (22-29) 04/24/23 10:56 Anion Gap 14 (12-20) 04/24/23 10:56 BUN 15 mg/dL (9-16) 04/24/23 10:56 Creatinine 0.80 mg/dL (0.5-1.4) 04/24/23 10:56 Estim Creat Clear Calc 99.6 04/24/23 10:56 Estimated GFR > 60 04/24/23 10:56 Random Glucose 249 mg/dL (60-115) H 04/24/23 10:56 Lactic Acid 1.8 mmol/L (0.5-2.0) 04/24/23 10:56 Calcium 9.7 mg/dL (8.4-10.2) 04/24/23 10:56 Magnesium 1.7 mg/dL (1.6-2.6) 04/24/23 10:56 Total Bilirubin 0.4 mg/dL (0.0-1.0) 04/24/23 10:56 Direct Bilirubin 0.1 mg/dL (0.0-0.5) 04/24/23 10:56 AST 14 U/L (5-31) 04/24/23 10:56 ALT 11 U/L (0-31) 04/24/23 10:56 Alkaline Phosphatase 106 U/L (39-117) 04/24/23 10:56 B-Natriuretic Peptide 100 pg/mL (<100) 04/24/23 10:56 Total Protein 8.4 g/dL (6.5-8.0) H 04/24/23 10:56 Albumin 4.2 g/dL (3.5-5.0) 04/24/23 10:56 Impressions Venous Duplex 04/24/23 11:28 IMPRESSION: No DVT demonstrated in the bilateral lower extremities. Chest X-Ray 04/24/23 13:42 IMPRESSION: Moderate opacity right lower lobe and focal air collection likely sequelae of right anterior diaphragmatic hernia as was noted on previous CTA chest 08/25/2022. Assessment and Plan (1) Bilateral cellulitis of lower leg: Status: Acute She has bilateral circumferential redness of both lower extremities. She has edema as well, right more than the left. There is note of what appears to be a superficial thin scab on the anterior right leg as described above. Her US does not show a DVT. There does not appear to be any ongoing necrotizing soft tissure infection. I agree with IV abx treatment. Her legs should be elevated on top of pillows for now. I will allow the scab to slough off, although I did tell her that if this worsens, we be need to debride this under anesthesia or at bedside depending on her pain level. She is not toxic looking. I will see follow along while she is in the hospital. Time Spent With Patient Time: Total time managing care of this patient today ____ minutes. Procedures Date of Service Date of Service: 04/26/23
--- NOTE | 2023-04-24 16:55 | PC.NURSE ---
This RN attempted to give report to Nikia SAUCEDO on S3. Unavailable at this time, will call back.
--- NOTE | 2023-04-24 17:21 | PC.NURSE ---
Report given to Lila on S3.
[2023-04-24 18:31] LABS: Glucose, Whole Blood 167 mg/dL (60-115)
[2023-04-24 18:35] VITALS: BP 192/93; PULSE 85; RESP 20; TEMP 36.8; O2SAT 100
--- NOTE | 2023-04-24 18:35 | PHA.PROG ---
Admission Date/Time: April 24, 2023 15:05 Indication: SKIN Weight in k.9 kg Serum Creatinine - Last 168 Hours 04/24/23 10:56 Creatinine 0.80 Estimated CrCl and GFR - Last 168 Hours 04/24/23 10:56 Estim Creat Clear Calc 99.6 Estimated GFR > 60 Vancomycin Loading Dose: 2000 Current Vancomycin Dosing Regimen: 1250 Q 12 Vancomycin Monitoring using AUC goal of 400 - 600 range with trough as surrogate marker: 461 Date and Time for next Vancomycin Level to be drawn: 04/25 @ 1800 Pharmacist Comments on Vancomycin Plan: Vancomycin dosing will take advantage of [employer] as a clinical decision support tool that uses Bayesian modeling to calculate individual patient's pharmacokinetic parameters and forecast the patient's drug concentration time course with the target goal AUC 24 range of 400 - 600 mg/L/hr.
--- NOTE | 2023-04-24 18:42 | PC.NURSE ---
BP192/93 pulse 86,home meds not ordered,Dr. Garcia notified
[2023-04-24] MEDS: Morphine Sulfate 4 MG/ML CARTRIDGE IVPUSH ×2 (18:48→23:39)
[2023-04-24] MEDS: Insulin Lispro 100 UNIT/ML 3 ML VIAL SUBCUT (18:49)
[2023-04-24 20:06] LABS: Glucose, Whole Blood 221 mg/dL (60-115)
[2023-04-24] MEDS: oxyCODONE HCl Immed Release 5 MG TABLET PO (20:16)
--- NOTE | 2023-04-24 20:21 | PC.NURSE ---
Patient is asking for Xanax and Gabapentin ,Dr. Yates notified
[2023-04-24] MEDS: Gabapentin 400 MG CAPSULE PO (20:50)
[2023-04-24] MEDS: ALPRAZolam 0.5 MG TABLET PO (20:50)
[2023-04-24 20:52] VITALS: BP 195/89; PULSE 84
[2023-04-24 23:44] VITALS: BP 167/85; PULSE 91; RESP 18; TEMP 36.7; O2SAT 98
[2023-04-25] MEDS: oxyCODONE HCl Immed Release 5 MG TABLET PO ×4 (01:30→17:48)
[2023-04-25] MEDS: Morphine Sulfate 4 MG/ML CARTRIDGE IVPUSH ×4 (04:54→19:03)
[2023-04-25 06:05] LABS: MANUAL DIFF FLAG NO
[2023-04-25 06:07] LABS: Basophils Absolute Auto 0.1 X10*3/uL (0.0-0.2); Basophils Percent Auto 0.8 % (0-2); Eosinophils Absolute Auto 0.1 X10*3/uL (0.0-0.4); Hematocrit 38.4 % (37.0-47.0); Hemoglobin 12.3 g/dl (12.0-16.0); Imm Gran Abs Auto 0.07 X10*3/uL (0.00-0.03); Imm Gran Pct Auto 0.7 % (0.0-0.4); Lymphocytes Absolute Auto 2.2 X10*3/uL (1.2-4.9); Lymphocytes Percent Auto 21.9 % (20-40); Mean Corpuscular Volume 90.6 fL (80.0-98.0); Monocytes Absolute Auto 0.6 X10*3/uL (0.1-1.2); Monocytes Percent Auto 6.3 % (2-11); Neutrophils Absolute Auto 7.1 x10*3/uL (2.0-8.3); Neutrophils Percent Auto 69.3 % (45-73); Platelet Count 356 X10*3/uL (160-400); Red Blood Count 4.24 X10*6/uL (4.20-5.50); Red Cell Distribution Width 14.8 % (11.0-16.0); White Blood Count 10.2 X10*3/uL (4.8-10.8)
[2023-04-25 06:20] LABS: Anion Gap 15 (12-20); Blood Urea Nitrogen 17 mg/dL (9-16); Calcium 9.4 mg/dL (8.4-10.2); Carbon Dioxide 24 mmol/L (22-29); Chloride 101 mmol/L (96-108); Creatinine Clr Calc Pharmacy 99.6; Estimated Glomerular Filt Rate > 60; Glucose Random 332 mg/dL (60-115); Potassium 3.7 mmol/L (3.3-5.1); Sodium 136 mmol/L (135-145)
--- NOTE | 2023-04-25 07:27 | HE.PHANOTE ---
azeb awad continue current dose, next level due 04/26 @0600 flako
[2023-04-25 07:30] VITALS: BP 162/84; PULSE 83; RESP 20; TEMP 36; O2SAT 97
[2023-04-25] MEDS: lisinopriL 5 MG TABLET PO (07:52)
[2023-04-25] MEDS: Gabapentin 400 MG CAPSULE PO ×4 (07:52→20:05)
[2023-04-25] MEDS: Empagliflozin 25 MG TABLET PO (07:52)
[2023-04-25] MEDS: Apixaban 5 MG TABLET PO ×2 (07:52→20:05)
[2023-04-25] MEDS: 0.9 % Sodium Chloride Flush 3 ML SYRINGE IVFLUSH ×3 (07:53→23:33)
[2023-04-25] MEDS: Nicotine 21 MG PATCH.TD24 TRANSDERMA (07:53)
[2023-04-25] MEDS: Piperacillin Sodium/Tazobactam 3.375 GM in 0.9 % Sodium Chloride 50 ML IV ×3 (07:53→19:03)
[2023-04-25] MEDS: Insulin Lispro 100 UNIT/ML 3 ML VIAL SUBCUT ×4 (08:02→20:21)
[2023-04-25 08:05] LABS: Glucose, Whole Blood 317 mg/dL (60-115)
--- NOTE | 2023-04-25 08:17 | P.PNIM_ITS ---
Subjective Subjective Date of Service: 04/25/23 Interval History: a bit better Physical Exam 2 Vital Signs: Vital Signs: Last Vital Signs Temp 96.8 F 04/25/23 07:30 Pulse 83 04/25/23 07:30 Resp 20 04/25/23 07:30 BP 162/84 H 04/25/23 07:30 Pulse Ox 97 04/25/23 07:30 O2 Del Method Room Air 04/25/23 07:30 BMI result Body Mass Index 36.6 Const: Other: nonseptic looking General: comfortable and no acute distress Resp: Effort & Inspection: normal respiratory effort Cardio: Rate: regular rate GI: Palpation (GI): Soft to palpation, not firm and nontender Extrem: Other: diffuse redness of both lower legs; dry superficial thin scab on the anterior right lower leg, about 7 cm in widest diameter, no obvious gangrene Objective Data Active Medications Acetaminophen (Acetaminophen 325 Mg Tablet) 650 mg PO Q6H PRN PRN Reason: Pain, Mild (Pain Scale 1-3) Alprazolam (Alprazolam 0.5 Mg Tablet) 0.5 mg PO DAILY PRN PRN Reason: Anxiety Apixaban (Apixaban 5 Mg Tablet) 5 mg PO BID [facility] Last Admin: 04/25/23 07:52 Dose: 5 mg Documented By: ERICA Atorvastatin Calcium (Atorvastatin Calcium 40 Mg Tablet) 40 mg PO BEDTIME [facility] Dextrose (Dextrose 50 % 25 Gm/50 Ml Syringe) 25 gm IVPUSH Q15M PRN; Protocol PRN Reason: per Hypoglycemia Standing Ord. Docusate Sodium (Docusate Sodium 100 Mg Capsule) 100 mg PO DAILY PRN PRN Reason: Constipation Empagliflozin (Empagliflozin 25 Mg Tablet) 25 mg PO DAILY [facility] Last Admin: 04/25/23 07:52 Dose: 25 mg Documented By: ERICA Gabapentin (Gabapentin 400 Mg Capsule) 400 mg PO QID [facility] Last Admin: 04/25/23 07:52 Dose: 400 mg Documented By: ERICA Glucose (Glucose Gel 15 Gm Gel..Gram.) 15 gm PO Q15M PRN; Protocol PRN Reason: per Hypoglycemia Standing Ord. Vancomycin HCl 1,250 mg/ (Sodium Chloride) 250 mls @ 166.667 mls/hr IV Q12H [facility] Piperacillin Sod/Tazobactam (Sod 3.375 gm/ Sodium Chloride) 50 mls @ 100 mls/hr IV Q6H [facility] Last Admin: 04/25/23 07:53 Dose: 100 mls/hr Documented By: ERICA Insulin Glargine (Insulin Glargine,Hum.Rec.Anlog 100 Unit/Ml 10 Ml Vial) 26 unit SUBCUT BEDTIME [facility] Insulin Human Lispro (Insulin Lispro 100 Unit/Ml 3 Ml Vial) 0 unit SUBCUT QIDACHS [facility]; Protocol Last Admin: 04/25/23 08:02 Dose: 8 unit Documented By: ERICA Lisinopril (Lisinopril 5 Mg Tablet) 5 mg PO DAILY [facility]; Protocol Last Admin: 04/25/23 07:52 Dose: 5 mg Documented By: ERICA Morphine Sulfate (Morphine Sulfate 4 Mg/Ml Cartridge) 4 mg IVPUSH Q4H PRN; Protocol PRN Reason: Pain, Severe (Pain Scale 7-10) Last Admin: 04/25/23 04:54 Dose: 4 mg Documented By: JOAN Nicotine (Nicotine 21 Mg Patch.Td24) 21 mg TRANSDERMA DAILY [facility] Last Admin: 04/25/23 07:53 Dose: 21 mg Documented By: ERICA Ondansetron HCl (Ondansetron Hcl 4 Mg/2 Ml Vial) 4 mg IVPUSH Q8H PRN PRN Reason: Nausea and Vomiting Oxycodone HCl (Oxycodone Hcl Immed Release 5 Mg Tablet) 5 mg PO Q4H PRN PRN Reason: Pain, Moderate(Pain Scale 4-6) Last Admin: 04/25/23 07:52 Dose: 5 mg Documented By: ERICA Pharmacy Consult (Consult Rx Vancomycin Dosing) 1 each MISCELLANE DAILY PRN PRN Reason: Consult order Sodium Chloride (0.9 % Sodium Chloride Flush 3 Ml Syringe) 3 ml IVFLUSH QSHIFT [facility] Last Admin: 04/25/23 07:53 Dose: 3 ml Documented By: ERICA Labs 04/25/23 05:24 04/25/23 05:24 Labs: Laboratory Results - last 24 hr 04/24/23 04/24/23 04/24/23 10:56 10:57 18:27 MCV 89.1 MCH 28.5 MCHC 32.0 RDW 14.6 Plt Count 368 MPV 9.7 Immature Gran % (Auto) 0.5 H Neut % (Auto) 76.9 H Lymph % (Auto) 18.2 L [place] % (Auto) 3.3 Eos % (Auto) 0.2 Baso % (Auto) 0.9 Lymph # (Auto) 1.7 [place] # (Auto) 0.3 Eos # (Auto) 0.0 Baso # (Auto) 0.1 Abs Immat Gran (auto) 0.05 H Absolute Neuts (auto) 7.2 Absolute Nucleated RBC 0.000 Nucleated RBC % (auto) 0.0 PT 11.4 INR 0.9 Anion Gap 14 Estim Creat Clear Calc 99.6 Estimated GFR > 60 POC Glucose 167 H Random Glucose 249 H Lactic Acid 1.8 Calcium 9.7 Magnesium 1.7 Total Bilirubin 0.4 Direct Bilirubin 0.1 AST 14 ALT 11 Alkaline Phosphatase 106 B-Natriuretic Peptide 100 Total Protein 8.4 H Albumin 4.2 04/24/23 04/25/23 04/25/23 20:03 05:24 07:57 MCV 90.6 MCH 29.0 MCHC 32.0 RDW 14.8 Plt Count 356 MPV 10.0 Immature Gran % (Auto) 0.7 H Neut % (Auto) 69.3 Lymph % (Auto) 21.9 [place] % (Auto) 6.3 Eos % (Auto) 1.0 Baso % (Auto) 0.8 Lymph # (Auto) 2.2 [place] # (Auto) 0.6 Eos # (Auto) 0.1 Baso # (Auto) 0.1 Abs Immat Gran (auto) 0.07 H Absolute Neuts (auto) 7.1 Absolute Nucleated RBC 0.000 Nucleated RBC % (auto) 0.0 PT INR Anion Gap 15 Estim Creat Clear Calc 99.6 Estimated GFR > 60 POC Glucose 221 H 317 H Random Glucose 332 H Lactic Acid Calcium 9.4 Magnesium Total Bilirubin Direct Bilirubin AST ALT Alkaline Phosphatase B-Natriuretic Peptide Total Protein Albumin Assessment and Plan (1) 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: Status: Acute Plan 52F PMH PVD, dm, nstemi, chronic opiate dependence, PE, obesity, presented with worsening rle ulcer acute cellulitis, BLE, with rle ulcer (stage II non pressure) due to venous stasis, pvd, and DM vanc, zosyn surgery following vascular duplex history of pe eliquis opiate dependence methadone hld statin dm insulin obesity weight loss full code reason for continued hospitalization:iv abx for significnat infection Time Spent With Patient Time: Total time managing care of this patient today ____ minutes. Quality Stroke Does the patient have a stroke diagnosis?: No VTE Prior VTE?: Yes VTE Risk Level:: Medical - moderate - high VTE Device Contraindication: Treatment Not Indicated VTE Drug Contraindication: N/A - Med Ordered
--- NOTE | 2023-04-25 08:47 | HE.PHANOTE ---
RE METHADONE PT GETS 135 MG FROM [facility]. LAST DOSED 04/24 @[id number] EJ
[2023-04-25] MEDS: vancomycin HCL 1,250 MG in 0.9 % Sodium Chloride 250 ML 166.67 MG IV ×2 (09:06→20:06)
[2023-04-25 09:44] VITALS: RESP 18
[2023-04-25] MEDS: methADONE HCl 20 MG/2 ML ORAL.CONC 135 MG PO (10:47)
--- NOTE | 2023-04-25 10:57 | MHC.CM.PN ---
CM MET WITH PT AT BEDSIDE. LIVES ALONE BUT HAS 28.5 HOURS OF [employer] AT HOME. USES W/C FOR MAJOR MOBILITY OUTSIDE OF HOME. MODIFIED BR . +HCP ON FILE PCP DR. JONES. + THRIVE ASSESSMENT, RESOURCE GUIDE GIVEN. REFERRAL MADE TO [facility]. DP: HOME, RESUME [employer]. WILL NEED BLS [facility]/W/C TRANSPORT. CM WILL CONTINUE TO FOLLOW FOR [place] CHANGE IN DC PLAN/NEEDS.
[2023-04-25 11:06] LABS: Glucose, Whole Blood 231 mg/dL (60-115)
--- NOTE | 2023-04-25 12:03 | PM.PNGS ---
Subjective Subjective Date of Service: 04/25/23 Interval history: She says she feels much better Pain on both lower legs have improved significantly Swelling also much better Physical Exam Vital Signs: Vital Signs: Last Vital Signs Temp 96.8 F 04/25/23 07:30 Pulse 83 04/25/23 07:30 Resp 18 04/25/23 09:44 BP 162/84 H 04/25/23 07:30 Pulse Ox 97 04/25/23 07:30 O2 Del Method Room Air 04/25/23 07:30 BMI result Body Mass Index 36.6 Const: General: comfortable and no acute distress Resp: Effort & Inspection: normal respiratory effort Cardio: Rate: regular rate Extrem: Other: Edema and cellulitis of both lower extremities much improved, superficial scab noted on the anterior aspect of the right leg Objective Data Active Medications Acetaminophen (Acetaminophen 325 Mg Tablet) 650 mg PO Q6H PRN PRN Reason: Pain, Mild (Pain Scale 1-3) Alprazolam (Alprazolam 0.5 Mg Tablet) 0.5 mg PO DAILY PRN PRN Reason: Anxiety Apixaban (Apixaban 5 Mg Tablet) 5 mg PO BID [facility] Last Admin: 04/25/23 07:52 Dose: 5 mg Documented By: ERICA Atorvastatin Calcium (Atorvastatin Calcium 40 Mg Tablet) 40 mg PO BEDTIME [facility] Dextrose (Dextrose 50 % 25 Gm/50 Ml Syringe) 25 gm IVPUSH Q15M PRN; Protocol PRN Reason: per Hypoglycemia Standing Ord. Docusate Sodium (Docusate Sodium 100 Mg Capsule) 100 mg PO DAILY PRN PRN Reason: Constipation Empagliflozin (Empagliflozin 25 Mg Tablet) 25 mg PO DAILY [facility] Last Admin: 04/25/23 07:52 Dose: 25 mg Documented By: ERICA Gabapentin (Gabapentin 400 Mg Capsule) 400 mg PO QID [facility] Last Admin: 04/25/23 07:52 Dose: 400 mg Documented By: ERICA Glucose (Glucose Gel 15 Gm Gel..Gram.) 15 gm PO Q15M PRN; Protocol PRN Reason: per Hypoglycemia Standing Ord. Vancomycin HCl 1,250 mg/ (Sodium Chloride) 250 mls @ 166.667 mls/hr IV Q12H [facility] Last Infusion: 04/25/23 11:12 Dose: Infused Documented By: ERICA Piperacillin Sod/Tazobactam (Sod 3.375 gm/ Sodium Chloride) 50 mls @ 100 mls/hr IV Q6H [facility] Last Infusion: 04/25/23 09:40 Dose: Infused Documented By: ERICA Insulin Glargine (Insulin Glargine,Hum.Rec.Anlog 100 Unit/Ml 10 Ml Vial) 26 unit SUBCUT BEDTIME [facility] Insulin Human Lispro (Insulin Lispro 100 Unit/Ml 3 Ml Vial) 0 unit SUBCUT QIDACHS [facility]; Protocol Last Admin: 04/25/23 11:24 Dose: 4 unit Documented By: ERICA Lisinopril (Lisinopril 5 Mg Tablet) 5 mg PO DAILY [facility]; Protocol Last Admin: 04/25/23 07:52 Dose: 5 mg Documented By: ERICA Methadone HCl (Methadone Hcl 20 Mg/2 Ml Oral.Conc) 135 mg PO DAILY [facility] Last Admin: 04/25/23 10:47 Dose: 135 mg Documented By: ERICA Morphine Sulfate (Morphine Sulfate 4 Mg/Ml Cartridge) 4 mg IVPUSH Q4H PRN; Protocol PRN Reason: Pain, Severe (Pain Scale 7-10) Last Admin: 04/25/23 09:44 Dose: 4 mg Documented By: LAMAR Nicotine (Nicotine 21 Mg Patch.Td24) 21 mg TRANSDERMA DAILY [facility] Last Admin: 04/25/23 07:53 Dose: 21 mg Documented By: ERICA Oxycodone HCl (Oxycodone Hcl Immed Release 5 Mg Tablet) 5 mg PO Q4H PRN PRN Reason: Pain, Moderate(Pain Scale 4-6) Last Admin: 04/25/23 07:52 Dose: 5 mg Documented By: ERICA Pharmacy Consult (Consult Rx Vancomycin Dosing) 1 each MISCELLANE DAILY PRN PRN Reason: Consult order Sodium Chloride (0.9 % Sodium Chloride Flush 3 Ml Syringe) 3 ml IVFLUSH QSHIFT [facility] Last Admin: 04/25/23 07:53 Dose: 3 ml Documented By: ERICA Labs 04/25/23 05:24 04/25/23 05:24 Labs: Laboratory Results - last 24 hr 04/24/23 04/24/23 04/25/23 18:27 20:03 05:24 MCV 90.6 MCH 29.0 MCHC 32.0 RDW 14.8 Plt Count 356 MPV 10.0 Immature Gran % (Auto) 0.7 H Neut % (Auto) 69.3 Lymph % (Auto) 21.9 [place] % (Auto) 6.3 Eos % (Auto) 1.0 Baso % (Auto) 0.8 Lymph # (Auto) 2.2 [place] # (Auto) 0.6 Eos # (Auto) 0.1 Baso # (Auto) 0.1 Abs Immat Gran (auto) 0.07 H Absolute Neuts (auto) 7.1 Absolute Nucleated RBC 0.000 Nucleated RBC % (auto) 0.0 Anion Gap 15 Estim Creat Clear Calc 99.6 Estimated GFR > 60 POC Glucose 167 H 221 H Random Glucose 332 H Calcium 9.4 04/25/23 04/25/23 07:57 11:02 MCV MCH MCHC RDW Plt Count MPV Immature Gran % (Auto) Neut % (Auto) Lymph % (Auto) [place] % (Auto) Eos % (Auto) Baso % (Auto) Lymph # (Auto) [place] # (Auto) Eos # (Auto) Baso # (Auto) Abs Immat Gran (auto) Absolute Neuts (auto) Absolute Nucleated RBC Nucleated RBC % (auto) Anion Gap Estim Creat Clear Calc Estimated GFR POC Glucose 317 H 231 H Random Glucose Calcium Microbiology Microbiology Results: Microbiology 04/24/23 10:56 Blood Culture - Preliminary Blood - Venous Prelim: GPC Gram Stain only Procedures Date of Service Date of Service: 04/25/23 Progress Note: A&P Assessment and plan (1) Bilateral cellulitis of lower leg: Status: Acute Assessment and Plan: Redness and edema on both lower extremities have improved significantly Will allow scab on the anterior aspect of the right leg to slough off on its own Continue leg elevation On antibiotics Will follow Time Spent With Patient Time: Total time managing care of this patient today ____ minutes. Quality Stroke Does the patient have a stroke diagnosis?: No VTE Prior VTE?: Yes VTE Risk Level:: Medical - moderate - high VTE Device Contraindication: Treatment Not Indicated VTE Drug Contraindication: N/A - Med Ordered
[2023-04-25 15:52] VITALS: BP 128/66; PULSE 83; RESP 20; TEMP 36; O2SAT 96
[2023-04-25 17:15] LABS: Glucose, Whole Blood 198 mg/dL (60-115)
[2023-04-25 19:45] VITALS: BP 141/64; PULSE 76; RESP 20; TEMP 36.1; O2SAT 98
[2023-04-25] MEDS: Atorvastatin Calcium 40 MG TABLET PO (20:05)
[2023-04-25] MEDS: Insulin Glargine,Hum.rec.anlog 100 UNIT/ML 10 ML VIAL 26 UNIT SUBCUT (20:21)
[2023-04-25 20:29] LABS: Glucose, Whole Blood 294 mg/dL (60-115)
[2023-04-25] MEDS: ALPRAZolam 0.5 MG TABLET PO (21:54)
[2023-04-26] VITALS: BP 145/71; PULSE 76; RESP 18; TEMP 36.1; O2SAT 97
[2023-04-26] MEDS: Morphine Sulfate 4 MG/ML CARTRIDGE IVPUSH ×6 (00:05→22:08)
[2023-04-26] MEDS: Piperacillin Sodium/Tazobactam 3.375 GM in 0.9 % Sodium Chloride 50 ML IV ×4 (00:09→19:00)
[2023-04-26 06:31] LABS: Hematocrit 36.9 % (37.0-47.0); Hemoglobin 11.5 g/dl (12.0-16.0); Mean Corpuscular HGB Conc 31.2 g/dl (31.0-35.0); Mean Corpuscular Hemoglobin 28.9 pg (27.0-33.0); Mean Corpuscular Volume 92.7 fL (80.0-98.0); Mean Platelet Volume 9.9 fL (9.4-12.3); Platelet Count 309 X10*3/uL (160-400); Red Blood Count 3.98 X10*6/uL (4.20-5.50); Red Cell Distribution Width 15.1 % (11.0-16.0); White Blood Count 9.4 X10*3/uL (4.8-10.8)
[2023-04-26] MEDS: oxyCODONE HCl Immed Release 5 MG TABLET PO ×4 (06:38→20:14)
[2023-04-26 06:45] LABS: Vancomycin Random 11.8 mcg/mL (15-20)
[2023-04-26 06:47] LABS: Anion Gap 14 (12-20); Blood Urea Nitrogen 19 mg/dL (9-16); Carbon Dioxide 23 mmol/L (22-29); Chloride 105 mmol/L (96-108); Creatinine Clr Calc Pharmacy 107.7; Estimated Glomerular Filt Rate > 60; Glucose Fasting 236 mg/dL (60-99); Sodium 138 mmol/L (135-145)
--- NOTE | 2023-04-26 07:06 | HE.PHANOTE ---
YOLANDA JOHNSON CHANGED DOSE TO 1500MG Q12, IN LIGHT OF TROUGH OF 11.8. New suspected level of 15.2, AUC 509. NEXT LEVEL DUE 04/27 @1800 EJ
[2023-04-26 07:43] VITALS: BP 149/82; PULSE 76; RESP 20; TEMP 36.4; O2SAT 99
[2023-04-26 08:00] LABS: Glucose, Whole Blood 295 mg/dL (60-115)
[2023-04-26] MEDS: lisinopriL 5 MG TABLET PO (08:17)
[2023-04-26] MEDS: Apixaban 5 MG TABLET PO ×2 (08:17→20:15)
[2023-04-26] MEDS: Empagliflozin 25 MG TABLET PO (08:17)
[2023-04-26] MEDS: Nicotine 21 MG PATCH.TD24 TRANSDERMA (08:17)
[2023-04-26] MEDS: Gabapentin 400 MG CAPSULE PO ×4 (08:17→20:14)
[2023-04-26] MEDS: Insulin Lispro 100 UNIT/ML 3 ML VIAL SUBCUT ×4 (08:18→20:55)
[2023-04-26] MEDS: methADONE HCl 20 MG/2 ML ORAL.CONC 135 MG PO (08:30)
[2023-04-26] MEDS: vancomycin HCL 1,500 MG in 0.9 % Sodium Chloride 500 ML 333.33 MG IV ×2 (08:37→20:15)
--- NOTE | 2023-04-26 08:45 | P.PNGS_ITS ---
Subjective Subjective Date of Service: 04/26/23 Interval history: No new complaints Says she still has some pain on both lower legs especially on the right side Physical Exam 2 Vital Signs: Vital Signs: Last Vital Signs Temp 97.5 F 04/26/23 07:43 Pulse 76 04/26/23 07:43 Resp 20 04/26/23 07:43 BP 149/82 H 04/26/23 07:43 Pulse Ox 99 04/26/23 07:43 O2 Del Method Room Air 04/26/23 07:43 BMI result Body Mass Index 36.6 Const: General: comfortable and no acute distress Resp: Effort & Inspection: normal respiratory effort Cardio: Rate: regular rate GI: Palpation (GI): Soft to palpation, not firm and nontender Extrem: Other: Cellulitis and edema both lower legs are much improved Scab on the anterior right lower leg now appears to loose I sharply debrided this using fine scissors There was note of some pain and drainage on some areas underneath the scab on the right side Area debrided was about 5 x 6 cm Apply wet to dry dressings and wrapped the right leg with Alexsandra roll Objective Data Active Medications Acetaminophen (Acetaminophen 325 Mg Tablet) 650 mg PO Q6H PRN PRN Reason: Pain, Mild (Pain Scale 1-3) Alprazolam (Alprazolam 0.5 Mg Tablet) 0.5 mg PO DAILY PRN PRN Reason: Anxiety Last Admin: 04/25/23 21:54 Dose: 0.5 mg Documented By: CARLO Apixaban (Apixaban 5 Mg Tablet) 5 mg PO BID [facility] Last Admin: 04/26/23 08:17 Dose: 5 mg Documented By: ERICA Atorvastatin Calcium (Atorvastatin Calcium 40 Mg Tablet) 40 mg PO BEDTIME [facility] Last Admin: 04/25/23 20:05 Dose: 40 mg Documented By: CARLO Dextrose (Dextrose 50 % 25 Gm/50 Ml Syringe) 25 gm IVPUSH Q15M PRN; Protocol PRN Reason: per Hypoglycemia Standing Ord. Docusate Sodium (Docusate Sodium 100 Mg Capsule) 100 mg PO DAILY PRN PRN Reason: Constipation Empagliflozin (Empagliflozin 25 Mg Tablet) 25 mg PO DAILY [facility] Last Admin: 04/26/23 08:17 Dose: 25 mg Documented By: ERICA Gabapentin (Gabapentin 400 Mg Capsule) 400 mg PO QID [facility] Last Admin: 04/26/23 08:17 Dose: 400 mg Documented By: ERICA Glucose (Glucose Gel 15 Gm Gel..Gram.) 15 gm PO Q15M PRN; Protocol PRN Reason: per Hypoglycemia Standing Ord. Piperacillin Sod/Tazobactam (Sod 3.375 gm/ Sodium Chloride) 50 mls @ 100 mls/hr IV Q6H [facility] Last Infusion: 04/26/23 07:09 Dose: Infused Documented By: JOAN Vancomycin HCl 1,500 mg/ (Sodium Chloride) 500 mls @ 333.333 mls/hr IV Q12H [facility] Last Admin: 04/26/23 08:37 Dose: 333.33 mls/hr Documented By: ERICA Insulin Glargine (Insulin Glargine,Hum.Rec.Anlog 100 Unit/Ml 10 Ml Vial) 26 unit SUBCUT BEDTIME [facility] Last Admin: 04/25/23 20:21 Dose: 26 unit Documented By: CARLO Insulin Human Lispro (Insulin Lispro 100 Unit/Ml 3 Ml Vial) 0 unit SUBCUT QIDACHS [facility]; Protocol Last Admin: 04/26/23 08:18 Dose: 6 unit Documented By: ERICA Lisinopril (Lisinopril 5 Mg Tablet) 5 mg PO DAILY [facility]; Protocol Last Admin: 04/26/23 08:17 Dose: 5 mg Documented By: ERICA Methadone HCl (Methadone Hcl 20 Mg/2 Ml Oral.Conc) 135 mg PO DAILY [facility] Last Admin: 04/26/23 08:30 Dose: 135 mg Documented By: ERICA Morphine Sulfate (Morphine Sulfate 4 Mg/Ml Cartridge) 4 mg IVPUSH Q4H PRN; Protocol PRN Reason: Pain, Severe (Pain Scale 7-10) Last Admin: 04/26/23 08:20 Dose: 4 mg Documented By: ERICA Nicotine (Nicotine 21 Mg Patch.Td24) 21 mg TRANSDERMA DAILY [facility] Last Admin: 04/26/23 08:17 Dose: 21 mg Documented By: ERICA Oxycodone HCl (Oxycodone Hcl Immed Release 5 Mg Tablet) 5 mg PO Q4H PRN PRN Reason: Pain, Moderate(Pain Scale 4-6) Last Admin: 04/26/23 06:38 Dose: 5 mg Documented By: JOAN Pharmacy Consult (Consult Rx Vancomycin Dosing) 1 each MISCELLANE DAILY PRN PRN Reason: Consult order Sodium Chloride (0.9 % Sodium Chloride Flush 3 Ml Syringe) [facility] Last Admin: 04/25/23 23:33 Dose: 3 ml Documented By: JOAN Labs 04/26/23 05:53 04/26/23 05:53 Labs: Laboratory Results - last 24 hr 04/25/23 04/25/23 04/25/23 11:02 17:10 20:14 MCV MCH MCHC RDW Plt Count MPV Absolute Nucleated RBC Nucleated RBC % (auto) Anion Gap Estim Creat Clear Calc Estimated GFR POC Glucose 231 H 198 H 294 H Fasting Glucose Calcium Random Vancomycin 04/26/23 04/26/23 04/26/23 05:52 05:53 07:47 MCV 92.7 MCH 28.9 MCHC 31.2 RDW 15.1 Plt Count 309 MPV 9.9 Absolute Nucleated RBC 0.000 Nucleated RBC % (auto) 0.0 Anion Gap 14 Estim Creat Clear Calc 107.7 Estimated GFR > 60 POC Glucose 295 H Fasting Glucose 236 H Calcium 9.0 Random Vancomycin 11.8 L Microbiology Microbiology Results: Microbiology 04/24/23 11:07 Blood Culture - Preliminary Blood - Venous No growth after 24 hours. 04/24/23 10:56 Blood Culture - Preliminary Blood - Venous Prelim: GPC Gram Stain only Procedures Date of Service Date of Service: 04/26/23 Progress Note: A&P Assessment and plan (1) Bilateral cellulitis of lower leg: Status: Acute Assessment and Plan: Both edema and redness of the lower legs are much improved Eschar on the right lower leg removed as described above (2) Eschar of lower leg: Status: Acute Assessment and Plan: Thin eschar involving full-thickness of the skin excised sharply as described above Wet to dry dressings placed on the road area Continue leg elevation Antibiotics Wound care Time Spent With Patient Time: Total time managing care of this patient today ____ minutes. Quality Stroke Does the patient have a stroke diagnosis?: No VTE Prior VTE?: Yes VTE Risk Level:: Medical - moderate - high VTE Device Contraindication: Treatment Not Indicated VTE Drug Contraindication: N/A - Med Ordered
--- NOTE | 2023-04-26 09:05 | HO.PM.IMPN ---
Subjective Subjective Date of Service: 04/26/23 Interval History: imporved erythema Physical Exam Vital Signs: Vital Signs: Last Vital Signs Temp 97.5 F 04/26/23 07:43 Pulse 76 04/26/23 07:43 Resp 20 04/26/23 07:43 BP 149/82 H 04/26/23 07:43 Pulse Ox 99 04/26/23 07:43 O2 Del Method Room Air 04/26/23 07:43 BMI result Body Mass Index 36.6 General: AO X 3, no acute distress Resp: CTA bilateral, no accessory muscles used CVS: S1,S2,RRR GI: soft, non tender, non distended Neuro: motor grossly intact, alert Psych: appropriate affect, appropriate insight improving bilateral cellulitis, mutiple ulcers Objective Data Active Medications Acetaminophen (Acetaminophen 325 Mg Tablet) 650 mg PO Q6H PRN PRN Reason: Pain, Mild (Pain Scale 1-3) Alprazolam (Alprazolam 0.5 Mg Tablet) 0.5 mg PO DAILY PRN PRN Reason: Anxiety Last Admin: 04/25/23 21:54 Dose: 0.5 mg Documented By: CARLO Apixaban (Apixaban 5 Mg Tablet) 5 mg PO BID [facility] Last Admin: 04/26/23 08:17 Dose: 5 mg Documented By: ERICA Atorvastatin Calcium (Atorvastatin Calcium 40 Mg Tablet) 40 mg PO BEDTIME [facility] Last Admin: 04/25/23 20:05 Dose: 40 mg Documented By: CARLO Dextrose (Dextrose 50 % 25 Gm/50 Ml Syringe) 25 gm IVPUSH Q15M PRN; Protocol PRN Reason: per Hypoglycemia Standing Ord. Docusate Sodium (Docusate Sodium 100 Mg Capsule) 100 mg PO DAILY PRN PRN Reason: Constipation Empagliflozin (Empagliflozin 25 Mg Tablet) 25 mg PO DAILY [facility] Last Admin: 04/26/23 08:17 Dose: 25 mg Documented By: ERICA Gabapentin (Gabapentin 400 Mg Capsule) 400 mg PO QID [facility] Last Admin: 04/26/23 08:17 Dose: 400 mg Documented By: ERICA Glucose (Glucose Gel 15 Gm Gel..Gram.) 15 gm PO Q15M PRN; Protocol PRN Reason: per Hypoglycemia Standing Ord. Piperacillin Sod/Tazobactam (Sod 3.375 gm/ Sodium Chloride) 50 mls @ 100 mls/hr IV Q6H [facility] Last Infusion: 04/26/23 07:09 Dose: Infused Documented By: JOAN Vancomycin HCl 1,500 mg/ (Sodium Chloride) 500 mls @ 333.333 mls/hr IV Q12H [facility] Last Admin: 04/26/23 08:37 Dose: 333.33 mls/hr Documented By: ERICA Insulin Glargine (Insulin Glargine,Hum.Rec.Anlog 100 Unit/Ml 10 Ml Vial) 26 unit SUBCUT BEDTIME [facility] Last Admin: 04/25/23 20:21 Dose: 26 unit Documented By: CARLO Insulin Human Lispro (Insulin Lispro 100 Unit/Ml 3 Ml Vial) 0 unit SUBCUT QIDACHS [facility]; Protocol Last Admin: 04/26/23 08:18 Dose: 6 unit Documented By: ERICA Lisinopril (Lisinopril 5 Mg Tablet) 5 mg PO DAILY [facility]; Protocol Last Admin: 04/26/23 08:17 Dose: 5 mg Documented By: ERICA Methadone HCl (Methadone Hcl 20 Mg/2 Ml Oral.Conc) 135 mg PO DAILY [facility] Last Admin: 04/26/23 08:30 Dose: 135 mg Documented By: ERICA Morphine Sulfate (Morphine Sulfate 4 Mg/Ml Cartridge) 4 mg IVPUSH Q4H PRN; Protocol PRN Reason: Pain, Severe (Pain Scale 7-10) Last Admin: 04/26/23 08:20 Dose: 4 mg Documented By: ERICA Nicotine (Nicotine 21 Mg Patch.Td24) 21 mg TRANSDERMA DAILY [facility] Last Admin: 04/26/23 08:17 Dose: 21 mg Documented By: ERICA Oxycodone HCl (Oxycodone Hcl Immed Release 5 Mg Tablet) 5 mg PO Q4H PRN PRN Reason: Pain, Moderate(Pain Scale 4-6) Last Admin: 04/26/23 06:38 Dose: 5 mg Documented By: JOAN Pharmacy Consult (Consult Rx Vancomycin Dosing) 1 each MISCELLANE DAILY PRN PRN Reason: Consult order Sodium Chloride (0.9 % Sodium Chloride Flush 3 Ml Syringe) 3 ml IVFLUSH QSHIFT [facility] Last Admin: 04/25/23 23:33 Dose: 3 ml Documented By: JOAN Labs 04/26/23 05:53 04/26/23 05:53 Labs: Laboratory Results - last 24 hr 04/25/23 04/25/23 04/25/23 11:02 17:10 20:14 MCV MCH MCHC RDW Plt Count MPV Absolute Nucleated RBC Nucleated RBC % (auto) Anion Gap Estim Creat Clear Calc Estimated GFR POC Glucose 231 H 198 H 294 H Fasting Glucose Calcium Random Vancomycin 04/26/23 04/26/23 04/26/23 05:52 05:53 07:47 MCV 92.7 MCH 28.9 MCHC 31.2 RDW 15.1 Plt Count 309 MPV 9.9 Absolute Nucleated RBC 0.000 Nucleated RBC % (auto) 0.0 Anion Gap 14 Estim Creat Clear Calc 107.7 Estimated GFR > 60 POC Glucose 295 H Fasting Glucose 236 H Calcium 9.0 Random Vancomycin 11.8 L Microbiology Microbiology Results: Microbiology 04/24/23 10:56 Blood Culture - Final Blood - Venous Coag negative Staphylococcus 04/24/23 11:07 Blood Culture - Preliminary Blood - Venous No growth after 24 hours. Assessment and Plan (1) 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: Status: Acute Plan 52F PMH PVD, dm, nstemi, chronic opiate dependence, PE, obesity, presented with worsening rle ulcer acute cellulitis, BLE, with rle ulcer (stage II non pressure) due to venous stasis, pvd, and DM vanc, zosyn surgery following, s/p bedisde debridement PVD duplex with moderate bilateral disease vascular eval GPC in 1/2 ?bacteremia vs contaminant continue vanc, follow up specieciation history of pe eliquis opiate dependence methadone hld statin dm insulin obesity weight loss full code reason for continued hospitalization:iv abx for significnat infection Time Spent With Patient Time: Total time managing care of this patient today ____ minutes. Quality Stroke Does the patient have a stroke diagnosis?: No VTE Prior VTE?: Yes VTE Risk Level:: Medical - moderate - high VTE Device Contraindication: Treatment Not Indicated VTE Drug Contraindication: N/A - Med Ordered
[2023-04-26] MEDS: 0.9 % Sodium Chloride Flush 3 ML SYRINGE IVFLUSH ×2 (09:53→16:01)
[2023-04-26 11:03] LABS: Glucose, Whole Blood 252 mg/dL (60-115)
--- NOTE | 2023-04-26 11:20 | P.CONGS_ITS ---
History of Present Illness Consult details Consult date: 04/26/23 Reason for consult: wound care Narrative: Complex 52-year-old female with a history of diabetes and coronary artery disease and polysubstance abuse has a prior history of right transmetatarsal amputation. She developed a new right lower extremity wound on the anterior aspect of the right leg. Reports that it was a blister that eventually open with some drainage. She has been treated by General surgery for this. There was concern about her vascular status. She has obtain noninvasive testing and is now for vascular evaluation. Review of Systems 2 Review of Systems: Yes all other systems are reviewed and are negative Constitutional: Constitutional: Reports no additional constitutional complaints ENT: Reports Normal hearing present Cardiovascular: Cardiovascular: Denies chest pain, Denies chest pain at rest, Denies chest pain with activity and Denies pedal edema Respiratory: Respiratory: Denies cough Gastrointestinal: Gastrointestinal: Denies abdominal pain Musculoskeletal: Musculoskeletal: Denies abnormal gait, Denies muscle cramps and Denies radiating pain into limb Integumentary/Breasts: Skin/Breast: Denies skin ulcer and Denies wounds Neurologic: Reports Normal hearing present and Denies abnormal gait Psychiatric: Psychiatric: Reports no additional psychiatric complaints [facility] Past Medical History Medical History (Updated 04/26/23 @ 08:48 by Kirill Muhammad MD) Eschar of lower leg Peripheral arterial disease Pulmonary nodules Chronic respiratory failure Pneumonitis Obesity (BMI 35.0-39.9 without comorbidity) Acute respiratory failure with hypoxia NSTEMI (non-ST elevated myocardial infarction) Opioid use disorder Osteomyelitis Diabetes Anxiety Substance abuse Surgical History Surgical History S/P amputation of foot Status post transmetatarsal amputation of right foot (09/24/21) Social History Social History Household Members: Other Household Members Other:: son Housing: Apartment Do you presently have visiting nurse or other home services: No Alcohol intake: never Patient Tobacco Use Status: Current everyday Tobacco user Tobacco use type: Cigarette Cigarette Packs Per Day: 0 Cigarettes Per Day: 1 Years Smoked: 40 e-Cigarette/Vaping Use: Currently Using Second Hand Smoke Exposure: No Substance Use Type: Marijuana Advance Directives Date on File: 09/22/21 service: No Current occupational status: unemployed Meds Allergies Allergy/AdvReac Type Severity Reaction Status Date / Time prednisone [PREDNISONE] Allergy Unknown RASH Verified 04/24/23 12:04 Active Medications: Current Medications Acetaminophen (Acetaminophen 325 Mg Tablet) 650 mg PO Q6H PRN PRN Reason: Pain, Mild (Pain Scale 1-3) Alprazolam (Alprazolam 0.5 Mg Tablet) 0.5 mg PO DAILY PRN PRN Reason: Anxiety Last Admin: 04/25/23 21:54 Dose: 0.5 mg Apixaban (Apixaban 5 Mg Tablet) 5 mg PO BID [facility] Last Admin: 04/26/23 08:17 Dose: 5 mg Atorvastatin Calcium (Atorvastatin Calcium 40 Mg Tablet) 40 mg PO BEDTIME DADA Last Admin: 04/25/23 20:05 Dose: 40 mg Dextrose (Dextrose 50 % 25 Gm/50 Ml Syringe) 25 gm IVPUSH Q15M PRN; Protocol PRN Reason: per Hypoglycemia Standing Ord. Docusate Sodium (Docusate Sodium 100 Mg Capsule) 100 mg PO DAILY PRN PRN Reason: Constipation Empagliflozin (Empagliflozin 25 Mg Tablet) 25 mg PO DAILY [facility] Last Admin: 04/26/23 08:17 Dose: 25 mg Gabapentin (Gabapentin 400 Mg Capsule) 400 mg PO QID [facility] Last Admin: 04/26/23 08:17 Dose: 400 mg Glucose (Glucose Gel 15 Gm Gel..Gram.) 15 gm PO Q15M PRN; Protocol PRN Reason: per Hypoglycemia Standing Ord. Piperacillin Sod/Tazobactam (Sod 3.375 gm/ Sodium Chloride) 50 mls @ 100 mls/hr IV Q6H [facility] Last Infusion: 04/26/23 07:09 Dose: Infused Vancomycin HCl 1,500 mg/ (Sodium Chloride) 500 mls @ 333.333 mls/hr IV Q12H [facility] Last Infusion: 04/26/23 10:23 Dose: Infused Insulin Glargine (Insulin Glargine,Hum.Rec.Anlog 100 Unit/Ml 10 Ml Vial) 26 unit SUBCUT BEDTIME [facility] Last Admin: 04/25/23 20:21 Dose: 26 unit Insulin Human Lispro (Insulin Lispro 100 Unit/Ml 3 Ml Vial) 0 unit SUBCUT QIDACHS [facility]; Protocol Last Admin: 04/26/23 08:18 Dose: 6 unit Lisinopril (Lisinopril 5 Mg Tablet) 5 mg PO DAILY [facility]; Protocol Last Admin: 04/26/23 08:17 Dose: 5 mg Methadone HCl (Methadone Hcl 20 Mg/2 Ml Oral.Conc) 135 mg PO DAILY [facility] Last Admin: 04/26/23 08:30 Dose: 135 mg Morphine Sulfate (Morphine Sulfate 4 Mg/Ml Cartridge) 4 mg IVPUSH Q4H PRN; Protocol PRN Reason: Pain, Severe (Pain Scale 7-10) Last Admin: 04/26/23 08:20 Dose: 4 mg Nicotine (Nicotine 21 Mg Patch.Td24) 21 mg TRANSDERMA DAILY [facility] Last Admin: 04/26/23 08:17 Dose: 21 mg Oxycodone HCl (Oxycodone Hcl Immed Release 5 Mg Tablet) 5 mg PO Q4H PRN PRN Reason: Pain, Moderate(Pain Scale 4-6) Last Admin: 04/26/23 06:38 Dose: 5 mg Pharmacy Consult (Consult Rx Vancomycin Dosing) 1 each MISCELLANE DAILY PRN PRN Reason: Consult order Sodium Chloride (0.9 % Sodium Chloride Flush 3 Ml Syringe) [facility] Last Admin: 04/26/23 09:53 Dose: 3 ml Home Medications Medication Instructions Recorded Confirmed Last Taken Type gabapentin 400 mg capsule 400 mg PO QID 09/21/21 04/24/23 11/28/22 History acetaminophen 500 mg tablet 2 caplet PO Q6H PRN mild pain 08/24/22 04/24/23 Unknown History methadone 10 mg/mL oral concentrate 135 mg PO DAILY 08/24/22 04/25/23 04/24/23 History alprazolam 0.5 mg tablet 0.5 mg PO DAILY PRN Anxiety 11/28/22 04/24/23 Unknown History atorvastatin 40 mg tablet 40 mg PO BEDTIME 11/28/22 04/24/23 11/27/22 History empagliflozin 25 mg tablet 25 mg PO DAILY 11/28/22 04/24/23 11/28/22 History (Jardiance) insulin glargine 100 unit/mL (3 35 unit subcut BEDTIME 11/28/22 04/24/23 11/28/22 History mL) subcutaneous pen (Lantus Solostar U-100 Insulin) Physical Exam 2 Vital Signs: Vital Signs: Last Vital Signs Temp 97.5 F 04/26/23 07:43 Pulse 76 04/26/23 07:43 Resp 20 04/26/23 07:43 BP 149/82 H 04/26/23 07:43 Pulse Ox 99 04/26/23 07:43 O2 Del Method Room Air 04/26/23 07:43 BMI result Body Mass Index 36.6 Const: General: cooperative, healthy appearing and comfortable O rientation/consciousness: oriented to person, oriented to place and oriented to time HEENT: Head: Yes normal to inspection Neck: Neck: Yes normal visual inspection Carotids: no bruits Chest: Chest palpation & inspection: normal inspection of the chest Resp: Effort & Inspection: normal respiratory effort and able to speak in complete sentences Auscultation: clear to auscultation bilaterally, no crackles, no rales, no rhonchi and no wheezes Cardio: Rate: regular rate Rhythm: regular rhythm Heart sounds: S1 normal heart sound present and S2 normal heart sound present Bruits: no carotid bruits Peripheral pulses: Peripheral pulses 2+ throughout GI: Inspection: Yes normal to inspection Skin: Other: Right transmetatarsal appears to be well-healed Blister on right calf Wounds: no wounds Hair: normal Neuro: General: oriented to person, oriented to place and oriented to time Cranial nerves: Yes CN's II-XII intact bilaterally and Yes Normal hearing present Cognition (Neuro): normal cognition Motor exam (neuro): 5/5 motor strength present throughout Extrem: Other: venous exam: No significant superficial varicosities or spider telangiectasias, minimal edema General: No clubbing, No cyanosis and No edema Psych: Appearance: grossly normal Mental Status: mental status grossly normal Speech and movement: Normal speech and movement present Results Labs 04/26/23 05:53 04/26/23 05:53 Labs: Abnormal lab results 04/25/23 04/25/23 04/26/23 Range/Units 17:10 20:14 05:52 RBC (4.20-5.50) X10*6/uL Hgb (12.0-16.0) g/dl Hct (37.0-47.0) % BUN (9-16) mg/dL POC Glucose 198 H 294 H (60-115) mg/dL Fasting Glucose (60-99) mg/dL Random Vancomycin 11.8 L (15-20) mcg/mL 04/26/23 04/26/23 04/26/23 Range/Units 05:53 07:47 10:56 RBC 3.98 L (4.20-5.50) X10*6/uL Hgb 11.5 L (12.0-16.0) g/dl Hct 36.9 L (37.0-47.0) % BUN 19 H (9-16) mg/dL POC Glucose 295 H 252 H (60-115) mg/dL Fasting Glucose 236 H (60-99) mg/dL Random Vancomycin (15-20) mcg/mL Short CBC 04/26/23 Range/Units 05:53 WBC 9.4 (4.8-10.8) X10*3/uL Hgb 11.5 L (12.0-16.0) g/dl Hct 36.9 L (37.0-47.0) % Plt Count 309 (160-400) X10*3/uL BMP 04/26/23 05:53 Sodium 138 Potassium 4.0 Chloride 105 Carbon Dioxide 23 BUN 19 H Creatinine 0.74 Calcium 9.0 All other labs normal. Imaging Additional studies: Ultrasound dated 04/25/2023 - no significant disease Assessment and Plan (1) Diabetic ulcer of lower leg: Status: Acute Plan In short patient has nonhealing ulcer. Arterial status appears to be within normal limits. Would continue with local wound care per General surgery. Will follow on an as-needed basis. Thank you for allowing us to assist in her care Time Spent With Patient Time: Total time managing care of this patient today ____ minutes. Procedures Date of Service Date of Service: 04/26/23
[2023-04-26] MEDS: Acetaminophen 325 MG TABLET 650 MG PO (11:24)
[2023-04-26] MEDS: ALPRAZolam 0.5 MG TABLET PO (11:24)
--- NOTE | 2023-04-26 15:26 | MHC.CM.PN ---
per rounds pt not ready for dc awaiting cuklures
[2023-04-26 15:35] VITALS: BP 140/63; PULSE 68; RESP 19; TEMP 36; O2SAT 95
[2023-04-26 16:23] LABS: Glucose, Whole Blood 288 mg/dL (60-115)
[2023-04-26 20:10] VITALS: BP 169/80; PULSE 73; RESP 20; TEMP 36; O2SAT 98
[2023-04-26] MEDS: Atorvastatin Calcium 40 MG TABLET PO (20:14)
[2023-04-26 20:42] LABS: Glucose, Whole Blood 234 mg/dL (60-115)
[2023-04-26] MEDS: Insulin Glargine,Hum.rec.anlog 100 UNIT/ML 10 ML VIAL 26 UNIT SUBCUT (20:56)
[2023-04-27] VITALS: BP 145/68; PULSE 75; RESP 16; TEMP 36.1; O2SAT 97
[2023-04-27] MEDS: oxyCODONE HCl Immed Release 5 MG TABLET PO ×4 (00:17→12:12)
[2023-04-27] MEDS: ALPRAZolam 0.5 MG TABLET PO (00:26)
[2023-04-27] MEDS: Piperacillin Sodium/Tazobactam 3.375 GM in 0.9 % Sodium Chloride 50 ML IV ×2 (01:01→07:24)
[2023-04-27] MEDS: Morphine Sulfate 4 MG/ML CARTRIDGE IVPUSH ×3 (01:54→10:21)
[2023-04-27 05:47] LABS: Hematocrit 40.2 % (37.0-47.0); Hemoglobin 12.8 g/dl (12.0-16.0); Mean Corpuscular HGB Conc 31.8 g/dl (31.0-35.0); Mean Corpuscular Hemoglobin 29.2 pg (27.0-33.0); Mean Corpuscular Volume 91.8 fL (80.0-98.0); Mean Platelet Volume 9.9 fL (9.4-12.3); Platelet Count 321 X10*3/uL (160-400); Red Blood Count 4.38 X10*6/uL (4.20-5.50); Red Cell Distribution Width 14.9 % (11.0-16.0); White Blood Count 8.8 X10*3/uL (4.8-10.8)
[2023-04-27] MEDS: 0.9 % Sodium Chloride Flush 3 ML SYRINGE IVFLUSH (07:24)
[2023-04-27 07:34] VITALS: BP 153/72; PULSE 71; RESP 18; TEMP 36.1; O2SAT 99
[2023-04-27] MEDS: Insulin Lispro 100 UNIT/ML 3 ML VIAL SUBCUT ×2 (07:41→11:41)
[2023-04-27 07:43] LABS: Glucose, Whole Blood 248 mg/dL (60-115)
[2023-04-27] MEDS: lisinopriL 5 MG TABLET PO (08:15)
[2023-04-27] MEDS: Gabapentin 400 MG CAPSULE PO ×2 (08:15→12:52)
[2023-04-27] MEDS: Nicotine 21 MG PATCH.TD24 TRANSDERMA (08:15)
[2023-04-27] MEDS: Apixaban 5 MG TABLET PO (08:16)
[2023-04-27] MEDS: methADONE HCl 20 MG/2 ML ORAL.CONC 135 MG PO (08:16)
[2023-04-27] MEDS: Empagliflozin 25 MG TABLET PO (08:16)
[2023-04-27] MEDS: vancomycin HCL 1,500 MG in 0.9 % Sodium Chloride 500 ML 333 MG IV (08:24)
--- NOTE | 2023-04-27 08:34 | PM.PNGS ---
Subjective Subjective Date of Service: 04/27/23 Interval history: No new complaints Says she still has pain on legs and asks for pain meds Sharp debridement done for eschar on the leg ulcer on the right side yesterday Physical Exam Vital Signs: Vital Signs: Last Vital Signs Temp 97.0 F 04/27/23 07:34 Pulse 71 04/27/23 07:34 Resp 18 04/27/23 07:34 BP 153/72 H 04/27/23 07:34 Pulse Ox 99 04/27/23 07:34 O2 Del Method Room Air 04/27/23 07:34 BMI result Body Mass Index 36.6 Const: General: comfortable and no acute distress Resp: Effort & Inspection: normal respiratory effort Cardio: Rate: regular rate Extrem: Other: Both lower legs with shows some residual edema but much improved Ulcer on the right anterior leg clean, with good granulation Objective Data Active Medications Acetaminophen (Acetaminophen 325 Mg Tablet) 650 mg PO Q6H PRN PRN Reason: Pain, Mild (Pain Scale 1-3) Last Admin: 04/26/23 11:24 Dose: 650 mg Documented By: VIRGILIO Alprazolam (Alprazolam 0.5 Mg Tablet) 0.5 mg PO DAILY PRN PRN Reason: Anxiety Last Admin: 04/27/23 00:26 Dose: 0.5 mg Documented By: CATARINO Apixaban (Apixaban 5 Mg Tablet) 5 mg PO BID [facility] Last Admin: 04/27/23 08:16 Dose: 5 mg Documented By: SON Atorvastatin Calcium (Atorvastatin Calcium 40 Mg Tablet) 40 mg PO BEDTIME [facility] Last Admin: 04/26/23 20:14 Dose: 40 mg Documented By: CARLO Dextrose (Dextrose 50 % 25 Gm/50 Ml Syringe) 25 gm IVPUSH Q15M PRN; Protocol PRN Reason: per Hypoglycemia Standing Ord. Docusate Sodium (Docusate Sodium 100 Mg Capsule) 100 mg PO DAILY PRN PRN Reason: Constipation Empagliflozin (Empagliflozin 25 Mg Tablet) 25 mg PO DAILY [facility] Last Admin: 04/27/23 08:16 Dose: 25 mg Documented By: SON Gabapentin (Gabapentin 400 Mg Capsule) 400 mg PO QID [facility] Last Admin: 04/27/23 08:15 Dose: 400 mg Documented By: SON Glucose (Glucose Gel 15 Gm Gel..Gram.) 15 gm PO Q15M PRN; Protocol PRN Reason: per Hypoglycemia Standing Ord. Piperacillin Sod/Tazobactam (Sod 3.375 gm/ Sodium Chloride) 50 mls @ 100 mls/hr IV Q6H [facility] Last Infusion: 04/27/23 08:28 Dose: Infused Documented By: SON Vancomycin HCl 1,500 mg/ (Sodium Chloride) 500 mls @ 333.333 mls/hr IV Q12H [facility] Last Admin: 04/27/23 08:24 Dose: 333 mls/hr Documented By: SON Insulin Glargine (Insulin Glargine,Hum.Rec.Anlog 100 Unit/Ml 10 Ml Vial) 26 unit SUBCUT BEDTIME [facility] Last Admin: 04/26/23 20:56 Dose: 26 unit Documented By: CARLO Insulin Human Lispro (Insulin Lispro 100 Unit/Ml 3 Ml Vial) 0 unit SUBCUT QIDACHS [facility]; Protocol Last Admin: 04/27/23 07:41 Dose: 4 unit Documented By: SON Lisinopril (Lisinopril 5 Mg Tablet) 5 mg PO DAILY [facility]; Protocol Last Admin: 04/27/23 08:15 Dose: 5 mg Documented By: SON Methadone HCl (Methadone Hcl 20 Mg/2 Ml Oral.Conc) 135 mg PO DAILY [facility] Last Admin: 04/27/23 08:16 Dose: 135 mg Documented By: SON Morphine Sulfate (Morphine Sulfate 4 Mg/Ml Cartridge) 4 mg IVPUSH Q4H PRN; Protocol PRN Reason: Pain, Severe (Pain Scale 7-10) Last Admin: 04/27/23 07:23 Dose: 4 mg Documented By: SON Nicotine (Nicotine 21 Mg Patch.Td24) 21 mg TRANSDERMA DAILY [facility] Last Admin: 04/27/23 08:15 Dose: 21 mg Documented By: SON Oxycodone HCl (Oxycodone Hcl Immed Release 5 Mg Tablet) 5 mg PO Q4H PRN PRN Reason: Pain, Moderate(Pain Scale 4-6) Last Admin: 04/27/23 08:15 Dose: 5 mg Documented By: SON Pharmacy Consult (Consult Rx Vancomycin Dosing) 1 each MISCELLANE DAILY PRN PRN Reason: Consult order Sodium Chloride (0.9 % Sodium Chloride Flush 3 Ml Syringe) 3 ml IVFLUSH QSHIFT [facility] Last Admin: 04/27/23 07:24 Dose: 3 ml Documented By: SON Labs 04/27/23 05:21 04/26/23 05:53 Labs: Laboratory Results - last 24 hr 04/26/23 04/26/23 04/26/23 10:56 16:11 20:36 MCV MCH MCHC RDW Plt Count MPV Absolute Nucleated RBC Nucleated RBC % (auto) POC Glucose 252 H 288 H 234 H 04/27/23 04/27/23 05:21 07:31 MCV 91.8 MCH 29.2 MCHC 31.8 RDW 14.9 Plt Count 321 MPV 9.9 Absolute Nucleated RBC 0.000 Nucleated RBC % (auto) 0.0 POC Glucose 248 H Microbiology Microbiology Results: Microbiology 04/24/23 11:07 Blood Culture - Preliminary Blood - Venous No growth after 48 hours. 04/24/23 10:56 Blood Culture - Final Blood - Venous Coag negative Staphylococcus Procedures Date of Service Date of Service: 04/27/23 Progress Note: A&P Assessment and plan (1) Eschar of lower leg: Status: Acute Assessment and Plan: Sharp excisional debridement done yesterday I have applied silver alginate dressings today The wound is clean Leg elevation Empiric antibiotic treatment Continue daily wound care with Silver alginate Time Spent With Patient Time: Total time managing care of this patient today ____ minutes. Quality Stroke Does the patient have a stroke diagnosis?: No VTE Prior VTE?: Yes VTE Risk Level:: Medical - moderate - high VTE Device Contraindication: Treatment Not Indicated VTE Drug Contraindication: N/A - Med Ordered
--- NOTE | 2023-04-27 10:20 | MHC.IC ---
Patient does not need precautions for her history of MRSA
[2023-04-27 10:49] LABS: Anion Gap 15 (12-20); Blood Urea Nitrogen 19 mg/dL (9-16); Calcium 9.6 mg/dL (8.4-10.2); Carbon Dioxide 21 mmol/L (22-29); Chloride 105 mmol/L (96-108); Creatinine Clr Calc Pharmacy 106.3; Estimated Glomerular Filt Rate > 60; Glucose Fasting 230 mg/dL (60-99); Sodium 137 mmol/L (135-145)
--- NOTE | 2023-04-27 11:11 | PM.DS ---
DS: Providers Provider Date of Service: 04/27/23 Date of admission: 04/24/23 15:05 Primary care physician: Nikhil Potts MD Consults: 04/24/23 15:10 Consult to General Surgery Routine Consulting Provider: [facility] [place] [facility] [place] Reason for consultation: acutely infected wound R garcia, chronic wound R TMA site 04/26/23 07:22 Consult to Vascular Surgery Routine Consulting Provider: [facility] [place] [place] [facility] Services Reason for consultation: pvd bilateral le, with ulcers DS: Diagnosis Discharge Diagnosis (1) Eschar of lower leg: Status: Acute (2) Bilateral cellulitis of lower leg: Status: Acute (3) 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 She states she developed a ?bubble? over the mid tibia about 5 days ago that ruptured on the same day. Initially there was drainage of clear fluids but states the last 2 days has had more purulent drainage. There is also significant erythema and warmth of the bilateral lower extremities. Currently rates her pain as a 10/10. She also notes a chronic wound at the transmetatarsal amputation site that has been present for about 4 months. She denies any drainage of this wound and has not sought medical attention. She denies any fevers, chills. She does report a remote history of IV drug abuse inhaled heroin abuse about 1 year ago but states she has not used any illicit drugs since. She currently smokes 1 cigarette daily and is working on quitting but does vape nicotine throughout the day. On arrival, vitals stable, patient afebrile. There is no leukocytosis. Renal function normal, electrolyte levels normal. Glucose 249. Lactic acid 1.8. Venous duplex of the bilateral lower extremities negative for DVT. Chest x-ray shows moderate opacity in the right lower lobe and focal air collection likely sequela of right anterior diaphragmatic hernia. She is endorsing nonproductive cough, chest congestion, nasal congestion that started today. She does have a history of MRSA bacteremia treated in September 2021. In the ED, given IV ceftriaxone and IV morphine. Hospital course Admitted for treatment of bilateral lower extremities acute cellulitis associated with chronic right lower extremity ulcer (stage II non pressure) due to venous stasis with eschar from pvd, and DM. Treated with Vancomycin and Zosyn with good response over hospital stay as the cellulitis resolved. surgery team did bedisde debridement with recommended outpatient follow up with wound care and regular silver alginate dressing. For PVD a duplex study of lower extremities with moderate bilateral disease evaluated by vascular surgeon who recommended local wound care. had contaminent bacteria in one of blood cultures. Continue wound dressing with visiting nurse and wound care Continue antibiotics as prescribed Follow with PCP as outpatient Time Spent with Patient Time attestation: Total time managing care of this patient today ____ minutes. Discharge coordination time: Greater than 30 minutes Quality: Safe Use of Opioids Does Pt have an Active Cancer Diagnosis on the Problem List?: No Quality: Stroke Does the patient have a stroke diagnosis?: No Physical Exam Vital Signs: Vital Signs: Last Vital Signs Temp 97.0 F 04/27/23 07:34 Pulse 71 04/27/23 07:34 Resp 18 04/27/23 07:34 BP 153/72 H 04/27/23 07:34 Pulse Ox 99 04/27/23 07:34 O2 Del Method Room Air 04/27/23 07:34 BMI result Body Mass Index 36.6 Const: Other: Constitutional : Awake, interactive, not in distress Neck : Normal inspection, Supple Cardiovascular : RRR, no JVP, no lower extremity edema Respiratory : good bilateral air entry, no crackles, wheezes or rhonchi Gastrointestinal: soft, lax, Normal bowel sounds, Non tender Skin : Warm, Dry, post TMT amputation Rt foot, RLE open wound covered with dressing, erythema in LEs resolving, no drainage or bleeding Neurological : Alert & oriented x3, No focal deficit DS: Data Data Completed and Pending Completed studies during hospitalization [Text1]: Procedures Detachment at Right 1st Toe, Mid, Open Approach (09/21/21) Detachment at Right 2nd Toe, Mid, Open Approach (09/21/21) Excision of Right Foot Subcutaneous Tissue and Fascia, Open Approach (09/21/21) Insertion of Infusion Device into Left External Jugular Vein, Percutaneous Approach (09/21/21) Insertion of Infusion Device into Superior Vena Cava, Percutaneous Approach (09/21/21) Labs on day of discharge: Laboratory Results - last 24 hr 04/26/23 04/26/23 04/27/23 16:11 20:36 05:21 WBC 8.8 RBC 4.38 Hgb 12.8 Hct 40.2 MCV 91.8 MCH 29.2 MCHC 31.8 RDW 14.9 Plt Count 321 MPV 9.9 Absolute Nucleated RBC 0.000 Nucleated RBC % (auto) 0.0 Sodium 137 Potassium 4.0 Chloride 105 Carbon Dioxide 21 L Anion Gap 15 BUN 19 H Creatinine 0.75 Estim Creat Clear Calc 106.3 Estimated GFR > 60 POC Glucose 288 H 234 H Fasting Glucose 230 H Calcium 9.6 D 04/27/23 07:31 WBC RBC Hgb Hct MCV MCH MCHC RDW Plt Count MPV Absolute Nucleated RBC Nucleated RBC % (auto) Sodium Potassium Chloride Carbon Dioxide Anion Gap BUN Creatinine Estim Creat Clear Calc Estimated GFR POC Glucose 248 H Fasting Glucose Calcium Preliminary micro results at discharge 04/24/23 11:07 Blood Culture - Preliminary Blood - Venous No growth after 48 hours. Imaging Chest x-ray: Radiologist's impression: ITS Impressions Venous Duplex 04/24/23 11:28 IMPRESSION: No DVT demonstrated in the bilateral lower extremities. Chest X-Ray 04/24/23 13:42 IMPRESSION: Moderate opacity right lower lobe and focal air collection likely sequelae of right anterior diaphragmatic hernia as was noted on previous CTA chest 08/25/2022. Duplex Scan Lower Extremity Artery 04/25/23 16:40 IMPRESSION: Right: Moderate atherosclerotic disease with increased peak systolic velocity and loss of diastolic flow reversal. No focal stenosis seen. Left: Moderate atherosclerotic disease with increased peak systolic velocity and loss of diastolic flow reversal. Focal stenosis of the mid right superficial femoral artery. . Discharge Plan Discharge Anticipated Discharge Date/Time: 04/27/23 11:00 Patient Disposition: Home Health Service Discharge Diagnosis: Cellulitis lower extremities Wound eschar Referrals: Nikhil Gagnon MD [Primary Care Provider] - 1 Week Discharge Medications: New oxycodone 5 mg Tablet 10 mg PO Q6-8H PRN (Reason: Pain, Moderate(Pain Scale 4-6)) Qty: 18 0RF Rx Instructions: Partial Fill upon patient request. amoxicillin-pot clavulanate 875-125 mg tablet 1 tab PO BID Qty: 14 0RF doxycycline monohydrate 100 mg capsule 100 mg PO BID Qty: 14 0RF Continued gabapentin 400 mg capsule 400 mg PO QID lisinopril 5 mg Tablet 5 mg PO DAILY Qty: 30 0RF Protocol: Hold for SBP< HOLD for SBP < : 90 (DME) walker Misc See Rx Instructions .Route Qty: 1 0RF Rx Instructions: As directed acetaminophen 500 mg tablet 2 caplet PO Q6H PRN (Reason: mild pain) methadone 10 mg/mL concentrate 135 mg PO DAILY metformin 500 mg Tablet 500 mg PO BIDWM 30 Days Qty: 60 0RF Eliquis 5 mg tablet 5 mg PO BID 30 Days Qty: 60 0RF nicotine 21 mg/24 hr Patch 24 Hour 21 mg transdermal DAILY Qty: 14 0RF alprazolam 0.5 mg tablet 0.5 mg PO DAILY PRN (Reason: Anxiety) Jardiance 25 mg tablet 25 mg PO DAILY atorvastatin 40 mg tablet 40 mg PO BEDTIME insulin glargine [Lantus Solostar U-100 Insulin] 100 unit/mL (3 mL) insulin pen 35 unit subcut BEDTIME Discharge Orders: Discharge Order (Routine); Ordered 04/27/23 Ordered By: Sesar Painting Diet: Diabetic diet Activity on Discharge: As tolerated Stand Alone Forms: Patient Portal Discharge page Care Plan Goals: Read below Health Concerns: Read below Plan of Treatment: Read below Assessment: You were admitted for treatment of skin infection and an eschar. treated with Antibiotics as you were evaluated by surgeon who exised the eschar with good results. Continue wound dressing with visiting nurse and wound care Continue antibiotics as prescribed Follow with PCP as outpatient
[2023-04-27 11:30] LABS: Glucose, Whole Blood 237 mg/dL (60-115)
--- NOTE | 2023-04-27 12:16 | P.F2F_ITS ---
Service Date Service Date: 04/27/23 Encounter Date of encounter: 04/27/23 Encounter: Open wound RLE Reasons for Services Signs and symptoms assessed: Open wound RLE Reason for care home: wound care (silver aliginate dressing at least every other day) Homebound: Leaving the home is medically contraindicated at this time without the asist of a device and/or another person due th the listed conditions above and below. Reason homebound: unable to drive Certification: Based on the above findings, I certify that this patient is confined to the home and needs intermittent care home care, physical therapy and/or speech therapy, or continues to need occupational therapy. The patient is under my care, and I have initiated the establishment of the plan of care. The patient will be followed by a physician who will periodically review the plan of care. Time Spent With Patient Time: Total time managing care of this patient today ____ minutes.
--- NOTE | 2023-04-27 12:17 | MHC.CM.PN ---
DP: PT HAS BEEN MEDICALLY CLEARED FOR DC HOME WITH NEW [facility] FOR NURSING. [facility] NOTIFIED OF DC TODAY. PT IS ABLE AND WILLING TO LEARN HOW TO DO HER DRESSING CHANGES. RN AWARE. BLS TRANSPORT BOOKED FOR 1:30 PM VIA [facility].
== END 2023-04-27 15:15 | disposition home health service (06) | DRG 197 ==
LOC: HO.ED 13:36 → HO.EDOVER 15:06 → HO.S3 16:48
PROVIDERS: Internal Medicine; Physician Assistant; Admitting Provider Physician Assistant; Emergency Provider Emergency Medicine; PCP Internal Medicine; Visit Provider Student in an Organized Health Care Education/Training Program
DX: E11.51 Type 2 diabetes mellitus with diabetic peripheral angiopathy without gangrene (principal); L03.115 Cellulitis of right lower limb; L97.519 Non-pressure chronic ulcer of other part of right foot with unspecified severity; I87.311 Chronic venous hypertension (idiopathic) with ulcer of right lower extremity; L03.116 Cellulitis of left lower limb; E11.621 Type 2 diabetes mellitus with foot ulcer; E11.628 Type 2 diabetes mellitus with other skin complications; L97.819 Non-pressure chronic ulcer of other part of right lower leg with unspecified severity; F17.210 Nicotine dependence, cigarettes, uncomplicated; I25.2 Old myocardial infarction; Z71.6 Tobacco abuse counseling; Z79.4 Long term (current) use of insulin; Z86.711 Personal history of pulmonary embolism; Z86.718 Personal history of other venous thrombosis and embolism; E66.9 Obesity, unspecified; Z68.36 Body mass index [BMI] 36.0-36.9, adult; Z79.01 Long term (current) use of anticoagulants; Z79.84 Long term (current) use of oral hypoglycemic drugs; Z79.899 Other long term (current) drug therapy
CPT/HCPCS: 36415; 71045; 80048; 80076; 80202; 82947; 83605; 83735; 83880; 85025; 85027; 85610; 87040; 87147; 87205; 93925; 93970; 99285; J0696; J2270; J2543; J3370; J3371

== ENCOUNTER → 2023-04-24 15:05 | Outpatient (BNV) | payer MEDICAID, SELFPAY | PROVIDERS: Admitting Provider Physician Assistant; Emergency Provider Emergency Medicine; Visit Provider Surgery | DX: R23.4 Changes in skin texture (principal) | CPT/HCPCS: 97597; 99222; 99232 ==

== ENCOUNTER → 2023-04-24 15:05 | Outpatient (BNV) | payer MEDICAID, SELFPAY | PROVIDERS: Admitting Provider Physician Assistant; Emergency Provider Emergency Medicine; Visit Provider Physician Assistant | DX: E11.621 Type 2 diabetes mellitus with foot ulcer (principal); L97.519 Non-pressure chronic ulcer of other part of right foot with unspecified severity; L03.116 Cellulitis of left lower limb; L03.115 Cellulitis of right lower limb; R23.4 Changes in skin texture | CPT/HCPCS: 99223; 99233; 99239 ==

== ENCOUNTER → 2023-04-24 15:05 | Outpatient (BNV) | payer MEDICAID, SELFPAY | PROVIDERS: Admitting Provider Physician Assistant; Emergency Provider Emergency Medicine; PCP Internal Medicine; Visit Provider Surgery Vascular Surgery | DX: E11.622 Type 2 diabetes mellitus with other skin ulcer (principal); L97.211 Non-pressure chronic ulcer of right calf limited to breakdown of skin; Z89.431 Acquired absence of right foot | CPT/HCPCS: 99222 ==

== ENCOUNTER 2023-05-24 17:10 | Inpatient (IN) | payer MEDICAID, SELFPAY ==
--- NOTE | 2023-05-24 | ECG_ITS ---
Test Reason : PRE ADMISSION Blood Pressure : / mmHG Vent. Rate : 094 BPM Atrial Rate : 094 BPM P-R Int : 134 ms QRS Dur : 090 ms QT Int : 374 ms P-R-T Axes : 075 -03 057 degrees QTc Int : 467 ms Normal sinus rhythm Normal ECG When compared with ECG of 01-DEC-2022 11:53, Vent. rate has increased BY 37 BPM T wave inversion no longer evident in Anterior leads Referred By: Darnell Perdue Electronically Signed By:ALICIA MCKEON MD
--- NOTE | ~2023-05-24 | XR_ITS ---
EXAMINATION: XR FOOT, RIGHT CLINICAL INFORMATION: Pain. Multiple ulcers. COMPARISON: 09/21/2021. TECHNIQUE: AP, lateral, and oblique views of the right foot. FINDINGS: There has been prior amputation through the proximal metatarsals. The bony structures are heterogeneous/osteopenic. There is no acute fracture or bony erosive change. There is soft tissue swelling about the foot with an apparent ulcer along the dorsum of the distal foot at the level of the amputation. XR/XR foot RT min 3V IMPRESSION: No acute osseous abnormality. Soft tissue swelling with apparent ulceration along the distal soft tissues.
--- NOTE | ~2023-05-24 | XR_ITS ---
EXAMINATION: XR TIBIA AND FIBULA, RIGHT CLINICAL INFORMATION: Pain. Multiple ulcers. COMPARISON: None available. TECHNIQUE: AP and lateral views of the right tibia and fibula were obtained. FINDINGS: The bone mineralization is within normal limits. There is mild medial and lateral knee degenerative change. There is no fracture or bony erosive change. There is mild tricompartmental knee degenerative change. There is soft tissue swelling about the tib-fib with anterior soft tissue calcifications XR/XR tibia fibula RT 2V IMPRESSION: No acute osseous abnormality. Soft tissue swelling about the tib-fib with anterior soft tissue/venous calcification. Mild tricompartmental knee degenerative change.
--- NOTE | ~2023-05-24 | XR_ITS ---
EXAMINATION: XR TIBIA AND FIBULA, LEFT CLINICAL INFORMATION: Pain. Ulcers. COMPARISON: None available. TECHNIQUE: AP and lateral views of the left tibia and fibula were obtained. FINDINGS: The bone mineralization is within normal limits. There is moderate medial and mild lateral and patellofemoral degenerative change. There is mild tibiotalar degenerative change. There is no fracture. There is soft tissue swelling about the tib-fib with apparent soft tissue calcification. XR/XR tibia fibula LT 2V IMPRESSION: No acute osseous abnormality. Soft tissue swelling about the tib-fib with soft tissue calcification. Tricompartmental knee degenerative change. Mild ankle degenerative change.
[2023-05-24 17:44] VITALS: BP 182/79; PULSE 115; RESP 18; TEMP 37; O2SAT 93; BMI 35.4
--- NOTE | 2023-05-24 17:55 | ED_ITS ---
HPI - General Adult General Chief complaint: Overdose Stated complaint: AMS, possible OD? denies drug use. Time Seen by Provider: 05/24/23 17:15 Source: patient and EMS Mode of arrival: EMS Limitations: no limitations History of Present Illness HPI narrative: Patient is a 52-year-old female who presents emergency department via EMS. Per EMS report her children felt her are all to be minimal responsive snoring respirations. EMS administered 4 mg of intranasal Narcan and she became increasingly more responsive and crying out in pain. She endorses that she snorted her gabapentin today but denies any recreational drug usage. She is currently taking methadone 135 mg which she does report that she took earlier today. She states that she use the gabapentin in this fashion today because she has been having increasing burning pain to the bilateral lower extremities over the past few weeks. She had a recent admission for cellulitis to the bilateral lower legs with ulcers. She reports that she saw her primary care provider on Monday, at that time they did not feel there was any concern for infection or need for antibiotics. She has been performing dressing changes at home, but does increase that she has had increased weeping drainage recently. EMS also reported hyperglycemia she reports that she forgot to take her insulin today. She denies fevers, chills, chest pain, shortness of breath, difficulty breathing, nausea, vomiting, abdominal pain, symptoms. Related Data Home Medications Medication Instructions Recorded Confirmed gabapentin 400 mg capsule 400 mg PO QID 09/21/21 05/24/23 acetaminophen 500 mg tablet 2 caplet PO Q6H PRN mild pain 08/24/22 05/24/23 methadone 10 mg/mL oral concentrate 135 mg PO DAILY 08/24/22 04/25/23 alprazolam 0.5 mg tablet 0.5 mg PO BEDTIME Anxiety 11/28/22 05/24/23 atorvastatin 40 mg tablet 40 mg PO BEDTIME 11/28/22 05/24/23 empagliflozin 25 mg tablet 25 mg PO DAILY 11/28/22 05/24/23 (Jardiance) insulin glargine 100 unit/mL (3 35 unit subcut BID 11/28/22 05/24/23 mL) subcutaneous pen (Lantus Solostar U-100 Insulin) Previous Rx's Medication Instructions Recorded lisinopril 5 mg tablet 5 mg PO DAILY #30 tabs 09/29/21 walker #1 ea 02/28/22 apixaban 5 mg tablet (Eliquis) 5 mg PO BID 30 days #60 tabs 09/03/22 metformin 500 mg tablet 500 mg PO BIDWM 30 days #60 tabs 09/03/22 nicotine 21 mg/24 hr daily 21 mg transdermal DAILY #14 ea 09/04/22 transdermal patch Allergies Allergy/AdvReac Type Severity Reaction Status Date / Time prednisone [PREDNISONE] Allergy Unknown RASH Verified 04/24/23 12:04 Review of Systems 2 Review of Systems: Yes all other systems are reviewed and are negative [facility] Past Medical History Attestation statement: The following information was validated with the patient. Source: old records reviewed Medical History 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 Diabetic ulcer of lower leg Eschar of lower leg Peripheral arterial disease Pulmonary nodules Chronic respiratory failure Pneumonitis Obesity (BMI 35.0-39.9 without comorbidity) Acute respiratory failure with hypoxia NSTEMI (non-ST elevated myocardial infarction) Opioid use disorder Osteomyelitis Diabetes Anxiety Substance abuse Surgical History S/P amputation of foot Status post transmetatarsal amputation of right foot (09/24/21) Social History Social History Household Members: Other Household Members Other:: son Housing: Apartment Do you presently have visiting nurse or other home services: No Alcohol intake: never Patient Tobacco Use Status: Current everyday Tobacco user Tobacco use type: Cigarette Cigarette Packs Per Day: 0 Cigarettes Per Day: 1 Years Smoked: 40 e-Cigarette/Vaping Use: Currently Using Second Hand Smoke Exposure: No Use of substances other than those prescribed or required for medical reasons: Yes Substance Use Type: Opiates and Prescription Drugs Last Used Substance: Just Prior to Admission Advance Directives: Yes Advance Directives on File: Yes Advance Directives Date on File: 09/22/21 Nutrition Risks: No Nutritional Risk service: No Current occupational status: unemployed Physical Exam ED Vital Signs: Vital Signs - 24 hr 05/24/23 17:44 05/24/23 19:36 05/24/23 19:59 Temperature 98.6 F 98.6 F Pulse Rate 115 H 109 H 108 H Respiratory Rate 18 13 19 Blood Pressure 182/79 H 124/69 139/81 Pulse Oximetry 93 93 94 Oxygen Delivery Method Room Air Room Air Room Air BMI result Body Mass Index 35.4 Appearance: Alert.?Oriented to person, place and time. No acute distress.?Normal affect. Eyes: Pupils equal, round and reactive to light.? ENT: Pharynx normal.?? Neck: Normal inspection.? Neck supple.?? CVS: Heart sounds normal. Tachycardia.? Pulses normal.?? Respiratory: No respiratory distress.? Lung sounds clear to auscultation bilaterally?? Abdomen: Soft and non-tender. Normoactive bowel sounds. ?? Skin: Skin warm and dry.? Normal skin color.? Bilateral lower extremity ulcers: ? Neuro: Moves all extremities spontaneously. Sensation intact bilaterally. CN II- XII intact. No focal neuro deficits. Course Reevaluation(s) Reevaluation #1: At this time patient Refuses IV insertion, I discussed with her indications for IV fluids, antibiotics for bilateral lower extremity cellulitis with ulcers, concern for possible osteomyelitis. She continues to refuse IV at this time. She is agreeable to have labs obtained. At this time will order insulin Humalog 10 units subQ for hyperglycemia Time: 17:55 Reevaluation #2: Lactic acid of 2.8, leukocytosis of 18 with left shift, no hypotension at this time, again advised patient recommendation for IV fluids and antibiotics at this time; ceftriaxone and vancomycin. Hyperglycemia with anion gap of 20, bicarb 19, elevated beta hydroxy will reassess BMP/glucose after insulin and fluids. Time: 19:06 Reevaluation #3: At this time patient is agreeable for hospital admission, sepsis with bilateral lower extremity cellulitis, accepted for admission to medicine service; Dr. Yates Time: 20:27 Medications Administered Generic Name Dose Route Start Last Admin Trade Name Freq PRN Reason Stop Dose Admin Acetaminophen 650 mg 05/24/23 20:46 05/24/23 20:56 Acetaminophen 325 Mg Tablet PO 650 mg Q6H PRN Administration Pain, Mild (Pain Scale 1-3) Piperacillin Sod/Tazobactam 100 mls @ 200 mls/hr 05/24/23 21:45 05/24/23 23:12 Sod 4.5 gm/ Sodium Chloride IV Infused Q6H DADA Infusion Insulin Human Lispro 0 unit 05/24/23 21:00 05/24/23 21:39 Insulin Lispro 100 Unit/Ml 3 Ml Vial SUBCUT 6 unit QIDACHS DADA Administration Protocol Morphine Sulfate 4 mg 05/24/23 21:39 05/24/23 22:09 Morphine Sulfate 4 Mg/Ml Cartridge IVPUSH 05/25/23 10:00 4 mg Q4H PRN Administration Pain, Severe (Pain Scale 7-10) Protocol Sodium Chloride 3 ml 05/25/23 00:00 05/25/23 00:02 0.9 % Sodium Chloride Flush 3 Ml Syringe IVFLUSH 3 ml QSHIFT DADA Administration Discontinued Medications Generic Name Dose Route Start Last Admin Trade Name Freq PRN Reason Stop Dose Admin Ceftriaxone Sodium 1 gm/ 50 mls @ 100 mls/hr 05/24/23 19:03 05/24/23 20:06 Sodium Chloride IV 05/24/23 19:32 Infused ONCE ONE Infusion Vancomycin HCl 2,000 mg in 500 mls @ 250 mls/hr 05/24/23 19:03 05/24/23 22:12 Vancomycin/Ns IV 05/24/23 21:02 Infused ONCE ONE Infusion Sodium Chloride 2,721.54 mls @ 2,721.54 mls/hr 05/24/23 19:16 05/24/23 21:42 Ns 30 ml/kg infuse over 1 hr (2721.54 ml) 05/24/23 20:15 Infused IV Infusion .Q1H STA Insulin Glargine 28 unit 05/24/23 21:00 05/24/23 21:38 Insulin Glargine,Hum.Rec.Anlog 100 Unit/Ml 10 Ml Vial SUBCUT 28 unit BEDTIME DADA Administration Insulin Human Lispro 10 unit 05/24/23 18:00 05/24/23 19:00 Insulin Lispro 100 Unit/Ml 3 Ml Vial SUBCUT 05/24/23 18:01 1 unit ONCE ONE Administration Lorazepam 1 mg 05/24/23 21:42 05/24/23 22:09 Lorazepam 2 Mg/Ml Vial IVPUSH 05/24/23 21:43 1 mg STAT STA Administration Medical Decision Making Medical Decision Making MDM Narrative: Patient is a 52-year-old female past medical history of PE/DVT on Eliquis, respiratory failure, NSTEMI, opiate use disorder on methadone, osteomyelitis, diabetes, anxiety, peripheral artery disease who presents to the emergency department via EMS with concerns for possible overdose. By her account she endorses only using gabapentin intranasally with no additional drug usage, although per EMS report she received 4 mg of intranasal Narcan and became more responsive after administration. She has been having increasing pain to the lower extremities over the past few weeks, has bilateral ulcers although she states that they are overall improving in appearance despite increased pain and drainage. She is noted to be hyperglycemic by EMS, states that she did not take her insulin today. She has no additional physical complaints aside from the severe pain to the bilateral extremities. Will obtain CBC to evaluate for leukocytosis/ anemia, CMP to evaluate for abnormal electrolytes /abnormal renal function/ abnormal hepatic/biliary function, XR the bilateral lower extremities to evaluate for osseous involvement Differential Diagnosis Differential Diagnoses: The differential diagnosis associated with the presentation includes (Polysubstance use, overdose, hyperglycemia, DKA, cellulitis, osteomyelitis,) Admission/Observation Consideration of admission/observation: Escalation of care including admission/observation considered (Admitted as per course narrative) Consult Healthcare Provider Management of the patient was discussed with: Hospitalist (Admitted as per course narrative) Lab Data MDM Lab Attestation statement: I reviewed the patient's lab results. (As per course narrative) 05/24/23 18:11 05/24/23 18:11 Labs: Lab Results 05/24/23 05/24/23 Range/Units 17:53 18:11 WBC 18.0 H (4.8-10.8) X10*3/uL RBC 4.12 L (4.20-5.50) X10*6/uL Hgb 12.0 (12.0-16.0) g/dl Hct 37.0 (37.0-47.0) % MCV 89.8 (80.0-98.0) fL MCH 29.1 (27.0-33.0) pg MCHC 32.4 (31.0-35.0) g/dl RDW 14.9 (11.0-16.0) % Plt Count 331 (160-400) X10*3/uL MPV 10.3 (9.4-12.3) fL Immature Gran % (Auto) 0.6 H (0.0-0.4) % Neut % (Auto) 86.2 H (45-73) % Lymph % (Auto) 7.2 L (20-40) % [place] % (Auto) 5.2 (2-11) % Eos % (Auto) 0.3 (0-4) % Baso % (Auto) 0.5 (0-2) % Lymph # (Auto) 1.3 (1.2-4.9) X10*3/uL [place] # (Auto) 0.9 (0.1-1.2) X10*3/uL Eos # (Auto) 0.1 (0.0-0.4) X10*3/uL Baso # (Auto) 0.1 (0.0-0.2) X10*3/uL Abs Immat Gran (auto) 0.11 H (0.00-0.03) X10*3/uL Absolute Neuts (auto) 15.5 H (2.0-8.3) x10*3/uL Absolute Nucleated RBC 0.000 (0.0-0.012) X10*3/uL Nucleated RBC % (auto) 0.0 (0.0-0.2) /100WBC Sodium 134 L (135-145) mmol/L Potassium 4.4 (3.3-5.1) mmol/L Chloride 99 (96-108) mmol/L Carbon Dioxide 19 L (22-29) mmol/L Anion Gap 20 (12-20) BUN 20 H (9-16) mg/dL Creatinine 1.24 (0.5-1.4) mg/dL Estim Creat Clear Calc 56.7 Estimated GFR 45 POC Glucose 416 H* (60-115) mg/dL Random Glucose 432 H* (60-115) mg/dL Lactic Acid 2.8 H* (0.5-2.0) mmol/L Calcium 10.2 D (8.4-10.2) mg/dL Total Bilirubin 0.2 (0.0-1.0) mg/dL AST 10 (5-31) U/L ALT 12 (0-31) U/L Alkaline Phosphatase 109 (39-117) U/L Total Protein 8.4 H (6.5-8.0) g/dL Albumin 4.1 (3.5-5.0) g/dL Beta-Hydroxybutyrate 0.30 H (0.02-0.27) mmol/L Independent Interpretation I performed an independent interpretation of an: Plain X-Ray (I have personally interpreted XR imaging and agree with radiologist impression) Radiology Impression Discussion of test interpretation with radiology: I have reviewed the radiologist's reading. Radiologist Impression: XR/XR tibia fibula LT 2V IMPRESSION: No acute osseous abnormality. Soft tissue swelling about the tib-fib with soft tissue calcification. Tricompartmental knee degenerative change. Mild ankle degenerative change. XR/XR tibia fibula RT 2V IMPRESSION: No acute osseous abnormality. Soft tissue swelling about the tib-fib with anterior soft tissue/venous calcification. Mild tricompartmental knee degenerative change. XR/XR foot RT min 3V IMPRESSION: No acute osseous abnormality. Soft tissue swelling with apparent ulceration along the distal soft tissues. Independent Historian Clinical information obtained from an independent historian. History obtained from or confirmed by: EMS External Record Review External record reviewed: Inpatient record Critical Care Time Critical Care Time Critical Care Time: Yes Total Critical Care Time: 35 Attestation: I personally attest to this critical care time spent taking care of the patient exclusive of all other billable procedures was approximately 35 minutes including initial evaluation of patient, ordering tests, x-ray interpretation, EKG interpretation, medical consultation, documentation, re-evaluation. Discharge Plan Discharge Clinical Impression: Bilateral cellulitis of lower leg, Sepsis Patient Disposition: Admitted As Inpatient
[2023-05-24 17:57] LABS: Glucose, Whole Blood 416 mg/dL (60-115)
[2023-05-24 18:19] LABS: MANUAL DIFF FLAG NO
[2023-05-24 18:20] LABS: Basophils Absolute Auto 0.1 X10*3/uL (0.0-0.2); Basophils Percent Auto 0.5 % (0-2); Eosinophils Absolute Auto 0.1 X10*3/uL (0.0-0.4); Eosinophils Percent Auto 0.3 % (0-4); Imm Gran Abs Auto 0.11 X10*3/uL (0.00-0.03); Imm Gran Pct Auto 0.6 % (0.0-0.4); Lymphocytes Absolute Auto 1.3 X10*3/uL (1.2-4.9); Lymphocytes Percent Auto 7.2 % (20-40); Mean Corpuscular HGB Conc 32.4 g/dl (31.0-35.0); Mean Corpuscular Hemoglobin 29.1 pg (27.0-33.0); Mean Corpuscular Volume 89.8 fL (80.0-98.0); Mean Platelet Volume 10.3 fL (9.4-12.3); Monocytes Absolute Auto 0.9 X10*3/uL (0.1-1.2); Monocytes Percent Auto 5.2 % (2-11); Neutrophils Absolute Auto 15.5 x10*3/uL (2.0-8.3); Neutrophils Percent Auto 86.2 % (45-73); Platelet Count 331 X10*3/uL (160-400); Red Blood Count 4.12 X10*6/uL (4.20-5.50); Red Cell Distribution Width 14.9 % (11.0-16.0)
[2023-05-24 18:33] LABS: Lactic Acid 2.8 mmol/L (0.5-2.0)
[2023-05-24 18:41] LABS: Alanine Aminotransferase 12 U/L (0-31); Albumin Level 4.1 g/dL (3.5-5.0); Alkaline Phosphatase 109 U/L (39-117); Anion Gap 20 (12-20); Aspartate Amino Transferase 10 U/L (5-31); Bilirubin Total 0.2 mg/dL (0.0-1.0); Blood Urea Nitrogen 20 mg/dL (9-16); Calcium 10.2 mg/dL (8.4-10.2); Carbon Dioxide 19 mmol/L (22-29); Chloride 99 mmol/L (96-108); Creatinine Clr Calc Pharmacy 56.7; Estimated Glomerular Filt Rate 45; Glucose Random 432 mg/dL (60-115); Potassium 4.4 mmol/L (3.3-5.1); Sodium 134 mmol/L (135-145); Total Protein 8.4 g/dL (6.5-8.0)
[2023-05-24] MEDS: Insulin Lispro 100 UNIT/ML 3 ML VIAL 10 UNIT SUBCUT (19:00)
--- NOTE | 2023-05-24 19:07 | MHC.RECOVSUP ---
Attempted to meet with pt in ED6H, however pt is in X-ray and not able to talk yet.
[2023-05-24 19:36] VITALS: BP 124/69; PULSE 109; RESP 13; TEMP 37; O2SAT 93
[2023-05-24] MEDS: cefTRIAXone sodium 1 GM in 0.9 % Sodium Chloride 50 ML IV (19:45)
[2023-05-24] MEDS: 0.9 % Sodium Chloride 2,721.54 ML 2721.54 ML IV (19:47)
--- NOTE | 2023-05-24 19:52 | PC.NURSE ---
22g Iv placed in the back of the LFA. IV fluids and abx started at this time. Pt reports being anxious and unhappy. this RN and Cristal SAUCEDO attempted to console pt, pt continues to be agitated but cooperative with care
[2023-05-24 19:59] VITALS: BP 139/81; PULSE 108; RESP 19; O2SAT 94
[2023-05-24] MEDS: vancomycin/NS 2,000 MG/500 ML PLAST..BAG 250 MG IV (20:05)
--- NOTE | 2023-05-24 20:05 | PC.NURSE ---
final abx delayed due to no original IV access, all abx hanging now
[2023-05-24 20:18] LABS: Reflex Lactate? Lactic Acid Added
[2023-05-24 20:53] LABS: Glucose, Whole Blood 264 mg/dL (60-115)
[2023-05-24] MEDS: Acetaminophen 325 MG TABLET 650 MG PO (20:56)
--- NOTE | 2023-05-24 20:58 | P.HPHOSP_ITS ---
History of Present Illness Date of Service: 05/24/23 <SAULO Cohen - Last Filed: 05/24/23 22:25> Attending physician on admission: Zhane Yates <SAULO Cohen - Last Filed: 05/24/23 22:25> Chief Complaint: AMS. lower leg wounds/pain <SAULO Cohen - Last Filed: 05/24/23 22:25> Pt is a -year-old female with a PMH significant for?peripheral artery disease, insulin-dependent type 2 diabetes, he osteomyelitis s/p right transmetatarsal amputation, hx of NSTEMI, polysubstance use disorder, hx of bilateral pulmonary embolism on lifelong anticoagulation with Eliquis, chronic opiate dependence on methadone, and recent admission for bilateral lower extremity cellulitis with chronic right lower extremity wound who presents to the ED with?altered mental status after snorting gabapentin. Patient with recent hospitalization on 04/24-04/27/2023 where she was treated for bilateral lower leg cellulitis with chronic wounds. Patient states she has continued lower leg pain bilaterally since discharge, worsening the past few days. States pain was so uncontrollable this morning that she decided to start gabapentin so that she could get ?immediate? relief from pain. Apparently her children found her in the bathroom and called EMS who administered 4 mg of intranasal Narcan where she became increasingly more responsive. Patient notes her right leg ulcer has improved, though she has had clear serosanguineous drainage from new wound on left lower leg. Patient has not yet followed with wound care, claims she has an appointment set for sometime next week. Patient also reports going to her PCP on last Monday who said she did not need any antibiotics and sent her home. Patient complains of excruciating, unbearable pain in her lower legs. Denies chest pain/pressure, palpitations. No shortness of breath. Denies fever, chills, abdominal pain. Has had some nausea secondary to pain, no vomiting. In the ED patient was afebrile but tachycardic up to 115, hypertensive up to 182/79, and satting at 94% on RA. Labs were significant for leukocytosis of 18.0, sodium 134, BUN 20, creatinine 1.24 (up from baseline of 0.80), random glucose 432, and lactic acid 2.8. X-ray of right foot showed no acute osseous abnormality but showed soft tissue swelling with apparent ulceration along the distal soft tissues. X-ray of left tibia showed no acute osseous abnormality but showed soft tissue swelling with soft tissue calcification, and tricompartmental knee degenerative change and mild ankle degenerative change. X-ray of right tibia and fibula showed no acute osseous abnormality but showed soft tissue swelling with anterior soft tissue/venous calcification with mild tricompartmental knee degenerative change. Pt was treated with 10 units of insulin, ceftriaxone, IVF, vancomycin, and acetaminophen. Pt will be admitted to the hospital for treatment and further evaluation of bilateral lower leg cellulitis with chronic wounds. 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 Diabetic ulcer of lower leg Eschar of lower leg Peripheral arterial disease Pulmonary nodules Chronic respiratory failure Pneumonitis Obesity (BMI 35.0-39.9 without comorbidity) Acute respiratory failure with hypoxia NSTEMI (non-ST elevated myocardial infarction) Opioid use disorder Osteomyelitis Diabetes Anxiety Substance abuse <SAULO Cohen - Last Filed: 05/24/23 22:25> Surgical History: Surgical History S/P amputation of foot Status post transmetatarsal amputation of right foot (09/24/21) <SAULO Cohen - Last Filed: 05/24/23 22:25> Social History: Social History Household Members: Other Household Members Other:: son Housing: Apartment Do you presently have visiting nurse or other home services: No Alcohol intake: never Patient Tobacco Use Status: Current everyday Tobacco user Tobacco use type: Cigarette Cigarette Packs Per Day: 0 Cigarettes Per Day: 1 Years Smoked: 40 e-Cigarette/Vaping Use: Currently Using Second Hand Smoke Exposure: No Use of substances other than those prescribed or required for medical reasons: Yes Substance Use Type: Opiates and Prescription Drugs Last Used Substance: Just Prior to Admission Advance Directives: Yes Advance Directives on File: Yes Advance Directives Date on File: 09/22/21 Nutrition Risks: No Nutritional Risk service: No Current occupational status: unemployed <SAULO Cohen - Last Filed: 05/24/23 22:25> Meds Allergies/Adverse reactions: Allergies Allergy/AdvReac Type Severity Reaction Status Date / Time prednisone [PREDNISONE] Allergy Unknown RASH Verified 04/24/23 12:04 <SAULO Cohen - Last Filed: 05/24/23 22:25> Active Medications: Current Medications Acetaminophen (Acetaminophen 325 Mg Tablet) 650 mg PO Q6H PRN PRN Reason: Pain, Mild (Pain Scale 1-3) Last Admin: 05/24/23 20:56 Dose: 650 mg Dextrose (Dextrose 50 % 25 Gm/50 Ml Syringe) 25 gm IVPUSH Q15M PRN; Protocol PRN Reason: per Hypoglycemia Standing Ord. Glucose (Glucose Gel 15 Gm Gel..Gram.) 15 gm PO Q15M PRN; Protocol PRN Reason: per Hypoglycemia Standing Ord. Vancomycin HCl (Vancomycin/Ns) 2,000 mg in 500 mls @ 250 mls/hr IV ONCE ONE Stop: 05/24/23 21:02 Last Admin: 05/24/23 20:05 Dose: 250 mls/hr Vancomycin HCl 750 mg/ Sodium (Chloride) 265 mls @ 265 mls/hr IV Q12H [facility] Insulin Glargine (Insulin Glargine,Hum.Rec.Anlog 100 Unit/Ml 10 Ml Vial) 28 unit SUBCUT BEDTIME DADA Insulin Human Lispro (Insulin Lispro 100 Unit/Ml 3 Ml Vial) 0 unit SUBCUT QIDACHS DADA; Protocol Melatonin (Melatonin 3 Mg Tablet) 6 mg PO BEDTIME PRN PRN Reason: Insomnia Ondansetron HCl (Ondansetron Hcl 4 Mg/2 Ml Vial) 4 mg IVPUSH Q8H PRN PRN Reason: Nausea and Vomiting Pharmacy Consult (Consult Rx Vancomycin Dosing) 1 each MISCELLANE DAILY PRN PRN Reason: Consult order Sodium Chloride (0.9 % Sodium Chloride Flush 3 Ml Syringe) 3 ml IVFLUSH QSHIFT DADA <SAULO Cohen - Last Filed: 05/24/23 22:25> Home medications: Home Medications Medication Instructions Recorded Confirmed Last Taken Type gabapentin 400 mg capsule 400 mg PO QID 09/21/21 05/24/23 05/24/23 History acetaminophen 500 mg tablet 2 caplet PO Q6H PRN mild pain 08/24/22 05/24/23 Unknown History methadone 10 mg/mL oral concentrate 135 mg PO DAILY 08/24/22 04/25/23 04/24/23 History alprazolam 0.5 mg tablet 0.5 mg PO BEDTIME Anxiety 11/28/22 05/24/23 Unknown History atorvastatin 40 mg tablet 40 mg PO BEDTIME 11/28/22 05/24/23 11/27/22 History empagliflozin 25 mg tablet 25 mg PO DAILY 11/28/22 05/24/23 05/24/23 History (Jardiance) insulin glargine 100 unit/mL (3 35 unit subcut BID 11/28/22 05/24/23 05/24/23 History mL) subcutaneous pen (Lantus Solostar U-100 Insulin) <SAULO Cohen - Last Filed: 05/24/23 22:25> Physical Exam 2 Vital Signs and Narrative: Vital Signs: Last Vital Signs Temp 98.6 F 05/24/23 19:36 Pulse 108 H 05/24/23 19:59 Resp 19 05/24/23 19:59 BP 139/81 05/24/23 19:59 Pulse Ox 94 05/24/23 19:59 O2 Del Method Room Air 05/24/23 19:59 BMI result Body Mass Index 35.4 <SAULO Cohen - Last Filed: 05/24/23 22:25> Constitutional: Alert, uncomfortable looking, crying, in no acute distress. Mental Status: Oriented to person, place and time. Eyes: Pupils are equal, round, and reactive to light. Ear, Nose, and Throat: Oropharynx clear, mucous membranes moist. Ears and nose without deformities. Trachea midline. Respiratory: Clear to auscultation bilaterally. No wheezing, rales, or rhonchi. Cardiovascular: S1, S2 regular. No murmurs, rubs, or gallops. Gastrointestinal: Abdomen soft, non-tender, non-distended. Normal bowel sounds. Neurologic: Cranial nerves II-XII are grossly intact bilaterally. No focal neurological deficits. Moves all extremities spontaneously. Musculoskeletal: No cyanosis or clubbing. Extremities: Bilateral lower leg edema with warmth, erythema, swelling, and multiple recent superficial and chronic wounds. See pictures below. <SAULO Cohen - Last Filed: 05/24/23 22:25> Results Labs CBC and Chem 7: 05/24/23 18:11 05/24/23 18:11 <SAULO Cohen - Last Filed: 05/24/23 22:25> Labs: Laboratory Results - last 24 hr 05/24/23 05/24/23 05/24/23 17:53 18:11 20:49 MCV 89.8 MCH 29.1 MCHC 32.4 RDW 14.9 Plt Count 331 MPV 10.3 Immature Gran % (Auto) 0.6 H Neut % (Auto) 86.2 H Lymph % (Auto) 7.2 L [place] % (Auto) 5.2 Eos % (Auto) 0.3 Baso % (Auto) 0.5 Lymph # (Auto) 1.3 [place] # (Auto) 0.9 Eos # (Auto) 0.1 Baso # (Auto) 0.1 Abs Immat Gran (auto) 0.11 H Absolute Neuts (auto) 15.5 H Absolute Nucleated RBC 0.000 Nucleated RBC % (auto) 0.0 Anion Gap 20 Estim Creat Clear Calc 56.7 Estimated GFR 45 POC Glucose 416 H* 264 H Random Glucose 432 H* Lactic Acid 2.8 H* Calcium 10.2 D Total Bilirubin 0.2 AST 10 ALT 12 Alkaline Phosphatase 109 Total Protein 8.4 H Albumin 4.1 Beta-Hydroxybutyrate 0.30 H <SAULO Cohen - Last Filed: 05/24/23 22:25> Imaging Radiologist's Impressions: Impressions Foot X-Ray 05/24/23 19:08 IMPRESSION: No acute osseous abnormality. Soft tissue swelling with apparent ulceration along the distal soft tissues. Tibia/Fibula X-Ray 05/24/23 19:08 IMPRESSION: No acute osseous abnormality. Soft tissue swelling about the tib-fib with soft tissue calcification. Tricompartmental knee degenerative change. Mild ankle degenerative change. Tibia/Fibula X-Ray 05/24/23 19:08 IMPRESSION: No acute osseous abnormality. Soft tissue swelling about the tib-fib with anterior soft tissue/venous calcification. Mild tricompartmental knee degenerative change. <SAULO Cohen - Last Filed: 05/24/23 22:25> Assessment and Plan (1) Bilateral cellulitis of lower leg: Status: Acute <SAULO Cohen - Last Filed: 05/24/23 22:25> (2) Toxic metabolic encephalopathy: Status: Acute <SAULO Cohen - Last Filed: 05/24/23 22:25> Pt is a -year-old female with a PMH significant for?peripheral artery disease, insulin-dependent type 2 diabetes, he osteomyelitis s/p right transmetatarsal amputation, hx of NSTEMI, polysubstance use disorder, hx of bilateral pulmonary embolism on lifelong anticoagulation with Eliquis, chronic opiate dependence on methadone, and recent admission for bilateral lower extremity cellulitis with chronic right lower extremity wound who presents to the ED with?altered mental status after snorting gabapentin. Pt will be admitted to the hospital for treatment and further evaluation of bilateral lower leg cellulitis with chronic wounds. Bilateral lower leg extremity cellulitis with chronic and new superficial wounds Likely secondary to uncontrolled diabetes type 2 Patient not yet established with Wound Care Clinic since last discharge Patient meets sepsis criteria: Cellulitis, wbc's, tachycardia, lactic acid 2.8 Patient given IVF and started on broad-spectrum antibiotics in the ED Will treat with IV antibiotics: Vanco and Zosyn, started 05/24/2023 Benadryl for pruritus Analgesics for pain management General surgery consult Follow cultures Acute toxic metabolic encephalopathy, resolved Patient initially presented with altered mental status likely secondary to snorting gabapentin Patient administered Narcan by EMS Patient currently at baseline mentation Addition medicine consult Hyperglycemia/insulin-dependent diabetes type 2 Presented with POC glucose of 416 Patient with poor diabetic medication compliance Hold metformin Will place on sliding scale insulin, Lantus Continue Jardiance Diabetic diet Follow POC BERNABE Creatinine 1.24, up from 0.75 on 04/27/2023 Likely secondary to dehydration from reduced p.o. intake Patient received IVF in ED Follow BMP PAD Continue statin HTN Continue lisinopril Hx of bilateral PE Continue Eliquis Full Code Attending:?Dr. Yates DVT Prophylaxis: On Eliquis Pt will require a hospitalization of at least two nights for treatment of?bilateral lower leg extremity cellulitis with IV antibiotics and specialist consultation. <SAULO Cohen - Last Filed: 05/24/23 22:25> Pt is a -year-old female with a PMH significant for?peripheral artery disease, insulin-dependent type 2 diabetes, he osteomyelitis s/p right transmetatarsal amputation, hx of NSTEMI, polysubstance use disorder, hx of bilateral pulmonary embolism on lifelong anticoagulation with Eliquis, chronic opiate dependence on methadone, and recent admission for bilateral lower extremity cellulitis with chronic right lower extremity wound who presents to the ED with?altered mental status after snorting gabapentin. Pt will be admitted to the hospital for treatment and further evaluation of bilateral lower leg cellulitis with chronic wounds. Bilateral lower leg extremity cellulitis with chronic and new superficial wounds Likely secondary to uncontrolled diabetes type 2 Patient not yet established with Wound Care Clinic since last discharge Patient meets sepsis criteria: Cellulitis, wbc's, tachycardia, lactic acid 2.8 Patient given IVF and started on broad-spectrum antibiotics in the ED Will treat with IV antibiotics: Vanco and Zosyn, started 05/24/2023 Benadryl for pruritus Analgesics for pain management General surgery consult Follow cultures Acute toxic metabolic encephalopathy, resolved Patient initially presented with altered mental status likely secondary to snorting gabapentin Patient administered Narcan by EMS Patient currently at baseline mentation Addition medicine consult Hyperglycemia/insulin-dependent diabetes type 2 Presented with POC glucose of 416 Patient with poor diabetic medication compliance Hold metformin Will place on sliding scale insulin, Lantus Continue Jardiance Diabetic diet Follow POC BERNABE Creatinine 1.24, up from 0.75 on 04/27/2023 Likely secondary to dehydration from reduced p.o. intake Patient received IVF in ED Follow BMP PAD Continue statin HTN Hold lisinopril Hx of bilateral PE Continue Eliquis Full Code Attending:?Dr. Yates DVT Prophylaxis: On Eliquis Pt will require a hospitalization of at least two nights for treatment of?bilateral lower leg extremity cellulitis with IV antibiotics and specialist consultation. <Zhane Yates MD - Last Filed: 05/24/23 22:28> Time Spent With Patient Time: Total time managing care of this patient today ____ minutes. <SAULO Cohen - Last Filed: 05/24/23 22:25> Quality Stroke Does the patient have a stroke diagnosis?: No <SUALO Cohen - Last Filed: 05/24/23 22:25> VTE Prior VTE?: No <SAULO Cohen - Last Filed: 05/24/23 22:25> VTE Risk Level:: Medical - moderate - high <SAULO Cohen - Last Filed: 05/24/23 22:25> VTE Device Contraindication: Treatment Not Indicated <SAULO Cohen - Last Filed: 05/24/23 22:25> VTE Drug Contraindication: N/A - Med Ordered <SAULO Cohen - Last Filed: 05/24/23 22:25>
--- NOTE | 2023-05-24 21:04 | PHA.MEDREC ---
Pharmacy Consult ? Medication Reconciliation Pharmacy has completed the medication reconciliation. Patient confirmed medications. Marlin Monterroso, jose davidD
--- NOTE | 2023-05-24 21:29 | PHA.PROG ---
Admission Date/Time: May 24, 2023 20:46 Indication:Sepsis, Cellulitis Weight in k.718 kg Adjusted body weight in K.7 kg [place] body weight in K.4 kg Obesity Dosing Indication % IBW: Serum Creatinine - Last 168 Hours 05/24/23 18:11 Creatinine 1.24 Estimated CrCl and GFR - Last 168 Hours 05/24/23 18:11 Estim Creat Clear Calc 56.7 Estimated GFR 45 Vancomycin Loading Dose: 2000 mg Current Vancomycin Dosing Regimen: 750 mg Q12H Date and Time for next Vancomycin Level to be drawn: 05/26 @ 0600 Pharmacist Comments on Vancomycin Plan: patient received an adequate load dose on 05/24 @ 2205 maintenance dose vancomycin 750 mg Q12H is schedule to start 05/25 @ 0800. Expected AUC 474 with a trough of 16 Level will be drawn prior to 4th dose Pharmacy will monitor renal function daily Marlin Monterroso, Marleni Vancomycin dosing will take advantage of [employer] as a clinical decision support tool that uses Bayesian modeling to calculate individual patient's pharmacokinetic parameters and forecast the patient's drug concentration time course with the target goal AUC 24 range of 400 - 600 mg/L/hr.
[2023-05-24] MEDS: Insulin Glargine,Hum.rec.anlog 100 UNIT/ML 10 ML VIAL 28 UNIT SUBCUT (21:38)
[2023-05-24] MEDS: Insulin Lispro 100 UNIT/ML 3 ML VIAL SUBCUT (21:39)
[2023-05-24 21:44] VITALS: BP 140/75; PULSE 98; RESP 16; O2SAT 93
--- NOTE | 2023-05-24 21:50 | PC.NURSE ---
ABX hung late d/t amount of time to establish IV access, pt refused to allow RN to attempt on R arm
[2023-05-24 22:08] VITALS: BP 129/76; PULSE 90; RESP 20; O2SAT 93
[2023-05-24] MEDS: LORazepam 2 MG/ML VIAL 1 MG IVPUSH (22:09)
[2023-05-24] MEDS: Morphine Sulfate 4 MG/ML CARTRIDGE IVPUSH (22:09)
[2023-05-24] MEDS: Piperacillin Sodium/Tazobactam 4.5 GM in 0.9 % Sodium Chloride 100 ML IV (22:12)
[2023-05-24 22:22] LABS: ~Lactic Acid-LAB USE ONLY 1.7 mmol/L (0.5-2.0)
[2023-05-25] VITALS (7 sets, daily range): BP systolic 113–147; BP diastolic 58–72; PULSE 79–92; RESP 12–22; TEMP 36.3–36.8; O2SAT 93–99; BMI 40.6
[2023-05-25] MEDS: 0.9 % Sodium Chloride Flush 3 ML SYRINGE IVFLUSH ×3 (00:02→18:53)
--- NOTE | 2023-05-25 00:05 | PC.NURSE ---
pt resting comfortably with eyes closed, breathing even and unlabored. no apparent distress at this time
[2023-05-25] MEDS: Morphine Sulfate 4 MG/ML CARTRIDGE IVPUSH ×3 (02:23→10:59)
--- NOTE | 2023-05-25 02:31 | PC.NURSE ---
pt rang call cai requesting food and pain medication. pt medicated per OCT for 10/10 body and leg pain
[2023-05-25] MEDS: Piperacillin Sodium/Tazobactam 4.5 GM in 0.9 % Sodium Chloride 100 ML IV ×4 (04:12→22:01)
[2023-05-25] MEDS: Acetaminophen 325 MG TABLET 650 MG PO (04:12)
[2023-05-25 04:30] LABS: Glucose, Whole Blood 188 mg/dL (60-115)
[2023-05-25] MEDS: ondansetron HCL 4 MG/2 ML VIAL IVPUSH (06:43)
[2023-05-25 07:55] LABS: Glucose, Whole Blood 222 mg/dL (60-115)
--- NOTE | 2023-05-25 07:57 | MHC.CM.PN ---
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
[2023-05-25] MEDS: Insulin Lispro 100 UNIT/ML 3 ML VIAL SUBCUT ×4 (09:01→20:50)
[2023-05-25] MEDS: Insulin Glargine,Hum.rec.anlog 100 UNIT/ML 10 ML VIAL 28 UNIT SUBCUT ×2 (09:02→20:49)
[2023-05-25] MEDS: vancomycin HCL 750 MG in 0.9 % Sodium Chloride 250 ML 265 MG IV (09:02)
--- NOTE | 2023-05-25 10:30 | PC.NURSE ---
PT REFUSED DRESSING TO EDILIA LEGS. MODERATE AMT OF SEROUS DRAINAGE NOTED.
[2023-05-25] MEDS: LORazepam 1 MG TABLET PO (10:58)
[2023-05-25] MEDS: Nicotine 21 MG PATCH.TD24 TRANSDERMA (10:58)
[2023-05-25] MEDS: Empagliflozin 25 MG TABLET PO (10:58)
[2023-05-25] MEDS: Gabapentin 400 MG CAPSULE PO ×4 (10:58→20:27)
[2023-05-25] MEDS: Apixaban 5 MG TABLET PO ×2 (10:58→20:28)
--- NOTE | 2023-05-25 11:01 | PM.CNGS ---
History of Present Illness Consult details Consult date: 05/25/23 Narrative: patient is a 52-year-old female with a plethora of medical problems including bilateral chronic lower extremity cellulitic inflammation. She has had a recurrent episode of this. She complains of bilateral lower extremity pain, swelling, redness. Left greater than right. 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 Diabetic ulcer of lower leg Eschar of lower leg Peripheral arterial disease Pulmonary nodules Chronic respiratory failure Pneumonitis Obesity (BMI 35.0-39.9 without comorbidity) Acute respiratory failure with hypoxia NSTEMI (non-ST elevated myocardial infarction) Opioid use disorder Osteomyelitis Diabetes Anxiety Substance abuse Surgical History Surgical History S/P amputation of foot Status post transmetatarsal amputation of right foot (09/24/21) Social History Social History Household Members: Other Household Members Other:: son Housing: Apartment Do you presently have visiting nurse or other home services: No Alcohol intake: never Patient Tobacco Use Status: Current everyday Tobacco user Tobacco use type: Cigarette Cigarette Packs Per Day: 0 Cigarettes Per Day: 1 Years Smoked: 40 e-Cigarette/Vaping Use: Currently Using Second Hand Smoke Exposure: No Use of substances other than those prescribed or required for medical reasons: Yes Substance Use Type: Opiates and Prescription Drugs Last Used Substance: Just Prior to Admission Advance Directives: Yes Advance Directives on File: Yes Advance Directives Date on File: 09/22/21 Nutrition Risks: No Nutritional Risk service: No Current occupational status: unemployed Meds Allergies Allergy/AdvReac Type Severity Reaction Status Date / Time prednisone [PREDNISONE] Allergy Unknown RASH Verified 04/24/23 12:04 Active Medications: Current Medications Acetaminophen (Acetaminophen 325 Mg Tablet) 650 mg PO Q6H PRN PRN Reason: Pain, Mild (Pain Scale 1-3) Last Admin: 05/25/23 04:12 Dose: 650 mg Alprazolam (Alprazolam 0.5 Mg Tablet) 0.5 mg PO BEDTIME DADA Apixaban (Apixaban 5 Mg Tablet) 5 mg PO BID DADA Last Admin: 05/25/23 10:58 Dose: 5 mg Atorvastatin Calcium (Atorvastatin Calcium 40 Mg Tablet) 40 mg PO BEDTIME [facility] Dextrose (Dextrose 50 % 25 Gm/50 Ml Syringe) 25 gm IVPUSH Q15M PRN; Protocol PRN Reason: per Hypoglycemia Standing Ord. Diphenhydramine HCl (Diphenhydramine Hcl 25 Mg Capsule) 25 mg PO Q4H PRN PRN Reason: Itching Empagliflozin (Empagliflozin 25 Mg Tablet) 25 mg PO DAILY [facility] Last Admin: 05/25/23 10:58 Dose: 25 mg Gabapentin (Gabapentin 400 Mg Capsule) 400 mg PO QID [facility] Last Admin: 05/25/23 10:58 Dose: 400 mg Glucose (Glucose Gel 15 Gm Gel..Gram.) 15 gm PO Q15M PRN; Protocol PRN Reason: per Hypoglycemia Standing Ord. Vancomycin HCl 750 mg/ Sodium (Chloride) 265 mls @ 265 mls/hr IV Q12H [facility] Last Admin: 05/25/23 09:02 Dose: 265 mls/hr Piperacillin Sod/Tazobactam (Sod 4.5 gm/ Sodium Chloride) 100 mls @ 200 mls/hr IV Q6H [facility] Last Admin: 05/25/23 10:06 Dose: 200 mls/hr Insulin Glargine (Insulin Glargine,Hum.Rec.Anlog 100 Unit/Ml 10 Ml Vial) 28 unit SUBCUT BID [facility] Last Admin: 05/25/23 09:02 Dose: 28 unit Insulin Human Lispro (Insulin Lispro 100 Unit/Ml 3 Ml Vial) 0 unit SUBCUT QIDACHS [facility]; Protocol Last Admin: 05/25/23 09:01 Dose: 4 unit Melatonin (Melatonin 3 Mg Tablet) 6 mg PO BEDTIME PRN PRN Reason: Insomnia Morphine Sulfate (Morphine Sulfate 4 Mg/Ml Cartridge) 3 mg IVPUSH Q3H PRN; Protocol PRN Reason: Pain, Severe (Pain Scale 7-10) Nicotine (Nicotine 21 Mg Patch.Td24) 21 mg TRANSDERMA DAILY [facility] Last Admin: 05/25/23 10:58 Dose: 21 mg Ondansetron HCl (Ondansetron Hcl 4 Mg/2 Ml Vial) 4 mg IVPUSH Q8H PRN PRN Reason: Nausea and Vomiting Last Admin: 05/25/23 06:43 Dose: 4 mg Pharmacy Consult (Consult Rx Vancomycin Dosing) 1 each MISCELLANE DAILY PRN PRN Reason: Consult order Sodium Chloride (0.9 % Sodium Chloride Flush 3 Ml Syringe) [facility] Last Admin: 05/25/23 09:03 Dose: 3 ml Home Medications Medication Instructions Recorded Confirmed Last Taken Type gabapentin 400 mg capsule 400 mg PO QID 09/21/21 05/24/23 05/24/23 History acetaminophen 500 mg tablet 2 caplet PO Q6H PRN mild pain 08/24/22 05/24/23 Unknown History methadone 10 mg/mL oral concentrate 135 mg PO DAILY 08/24/22 04/25/23 04/24/23 History alprazolam 0.5 mg tablet 0.5 mg PO BEDTIME Anxiety 11/28/22 05/24/23 Unknown History atorvastatin 40 mg tablet 40 mg PO BEDTIME 11/28/22 05/24/23 11/27/22 History empagliflozin 25 mg tablet 25 mg PO DAILY 11/28/22 05/24/23 05/24/23 History (Jardiance) insulin glargine 100 unit/mL (3 35 unit subcut BID 11/28/22 05/24/23 05/24/23 History mL) subcutaneous pen (Lantus Solostar U-100 Insulin) Physical Exam Vital Signs: Vital Signs: Last Vital Signs Temp 97.3 F 05/25/23 03:54 Pulse 80 05/25/23 07:46 Resp 12 05/25/23 07:46 BP 113/62 05/25/23 07:46 Pulse Ox 99 05/25/23 07:46 O2 Del Method Room Air 05/25/23 07:46 BMI result Body Mass Index 35.4 Extrem: Other: bilateral lower extremities demonstrate chronic lymphedematous changes, brawny induration, superficial scaling and thickening. Patient is status post right trans met amputation and left toe amputation. Extremities are grossly neurovascularly intact . The patient has a blister approximately 2 x 1 cm of the left mid tibial area which has drained spontaneously clear /serous fluid. Results Labs 05/24/23 18:11 05/24/23 18:11 Labs: Abnormal lab results 05/24/23 05/24/23 05/24/23 Range/Units 17:53 18:11 20:49 WBC 18.0 H (4.8-10.8) X10*3/uL RBC 4.12 L (4.20-5.50) X10*6/uL Immature Gran % (Auto) 0.6 H (0.0-0.4) % Neut % (Auto) 86.2 H (45-73) % Lymph % (Auto) 7.2 L (20-40) % Abs Immat Gran (auto) 0.11 H (0.00-0.03) X10*3/uL Absolute Neuts (auto) 15.5 H (2.0-8.3) x10*3/uL Sodium 134 L (135-145) mmol/L Carbon Dioxide 19 L (22-29) mmol/L BUN 20 H (9-16) mg/dL POC Glucose 416 H* 264 H (60-115) mg/dL Random Glucose 432 H* (60-115) mg/dL Lactic Acid 2.8 H* (0.5-2.0) mmol/L Total Protein 8.4 H (6.5-8.0) g/dL Beta-Hydroxybutyrate 0.30 H (0.02-0.27) mmol/L 05/25/23 05/25/23 Range/Units 04:26 07:48 WBC (4.8-10.8) X10*3/uL RBC (4.20-5.50) X10*6/uL Immature Gran % (Auto) (0.0-0.4) % Neut % (Auto) (45-73) % Lymph % (Auto) (20-40) % Abs Immat Gran (auto) (0.00-0.03) X10*3/uL Absolute Neuts (auto) (2.0-8.3) x10*3/uL Sodium (135-145) mmol/L Carbon Dioxide (22-29) mmol/L BUN (9-16) mg/dL POC Glucose 188 H 222 H (60-115) mg/dL Random Glucose (60-115) mg/dL Lactic Acid (0.5-2.0) mmol/L Total Protein (6.5-8.0) g/dL Beta-Hydroxybutyrate (0.02-0.27) mmol/L Short CBC 05/24/23 Range/Units 18:11 WBC 18.0 H (4.8-10.8) X10*3/uL Hgb 12.0 (12.0-16.0) g/dl Hct 37.0 (37.0-47.0) % Plt Count 331 (160-400) X10*3/uL BMP 05/24/23 18:11 Sodium 134 L Potassium 4.4 Chloride 99 Carbon Dioxide 19 L BUN 20 H Creatinine 1.24 Calcium 10.2 D Liver Function 05/24/23 Range/Units 18:11 Total Bilirubin 0.2 (0.0-1.0) mg/dL AST 10 (5-31) U/L ALT 12 (0-31) U/L Alkaline Phosphatase 109 (39-117) U/L Albumin 4.1 (3.5-5.0) g/dL All other labs normal. Assessment and Plan (1) Bilateral cellulitis of lower leg: Status: Acute Plan at present, no acute surgical issues. Would strongly encourage patient to elevate her lower extremities as much as possible, local wound care, consider wound the care clinic consult. Time Spent With Patient Time: Total time managing care of this patient today ____ minutes. Procedures Date of Service Date of Service: 05/25/23
[2023-05-25 11:11] LABS: Basophils Absolute Auto 0.1 X10*3/uL (0.0-0.2); Basophils Percent Auto 0.5 % (0-2); Eosinophils Absolute Auto 0.1 X10*3/uL (0.0-0.4); Eosinophils Percent Auto 1.3 % (0-4); Hemoglobin 10.8 g/dl (12.0-16.0); Imm Gran Abs Auto 0.07 X10*3/uL (0.00-0.03); Imm Gran Pct Auto 0.6 % (0.0-0.4); Lymphocytes Absolute Auto 2.3 X10*3/uL (1.2-4.9); Lymphocytes Percent Auto 20.2 % (20-40); MANUAL DIFF FLAG NO; Mean Corpuscular HGB Conc 31.8 g/dl (31.0-35.0); Mean Corpuscular Volume 91.2 fL (80.0-98.0); Mean Platelet Volume 10.2 fL (9.4-12.3); Monocytes Absolute Auto 0.7 X10*3/uL (0.1-1.2); Monocytes Percent Auto 6.4 % (2-11); Platelet Count 322 X10*3/uL (160-400); Red Blood Count 3.73 X10*6/uL (4.20-5.50); White Blood Count 11.2 X10*3/uL (4.8-10.8)
[2023-05-25 11:24] LABS: Anion Gap 15 (12-20); Blood Urea Nitrogen 19 mg/dL (9-16); Calcium 9.5 mg/dL (8.4-10.2); Carbon Dioxide 24 mmol/L (22-29); Chloride 101 mmol/L (96-108); Creatinine Clr Calc Pharmacy 86.8; Estimated Glomerular Filt Rate > 60; Glucose Random 227 mg/dL (60-115); Potassium 4.3 mmol/L (3.3-5.1); Sodium 136 mmol/L (135-145)
[2023-05-25 11:34] LABS: Glucose, Whole Blood 225 mg/dL (60-115)
--- NOTE | 2023-05-25 12:11 | HE.PHANOTE ---
METHADONE CONFIRMATION FORM RECEIVED. 135 MG LAST DOSE 05/24 FROM [facility]
[2023-05-25] MEDS: methADONE HCl 20 MG/2 ML ORAL.CONC 135 MG PO (14:02)
--- NOTE | 2023-05-25 15:03 | HO.SUDE ---
Met with pt in ED6 after consult placed to Addiction Medicine for [place] as well as pt presenting to the ED after being found minimally responsive. Pt had been given IN Narcan 4 mg with positive effect. Pt sitting in bed, awake, alert, easily engages in conversation. Pt states You helped me get clean. I've been clean for a year and a half and things had been going great up until yesterday. Pt does have +fentanyl UDS x2 at the beginning of 2022. Pt reports she has been on methadone x 18 months, currently at 135 mg and receiving 5 take home bottles per week. Pt reports only using gabapentin prior to arrival, IN, denies using opioids or other substances. Pt reports she does take more gabapentin than prescribed at times to help with pain. Pt reports occasionally she will start to shake if she takes too much. Pt believes this is what happened yesterday, reports remembering the entire course of events, does not believe she was minimally responsive or required Narcan. Pt adamant she has not been using other substances, tearful. Discussed recovery supports and services, pt declines at this time. Encouraged pt to reach out to t/w if needed. Discussed with Bev Salazar APRN.
[2023-05-25] MEDS: Morphine Sulfate 4 MG/ML CARTRIDGE 3 MG IVPUSH ×2 (15:54→20:27)
[2023-05-25] MEDS: diphenhydrAMINE HCL 25 MG CAPSULE PO ×2 (15:54→20:28)
--- NOTE | 2023-05-25 16:11 | HO.PM.IMPN ---
Subjective Subjective Date of Service: 05/25/23 Interval History: Reports 05/16 pain bilateral lower extremities Reports redness has increased since last night No fevers. Denies shortness of breath, chest pain Review of Systems Review of Systems: Yes all other systems are reviewed and are negative Physical Exam Vital Signs: Vital Signs: Last Vital Signs Temp 98.2 F 05/25/23 13:49 Pulse 86 05/25/23 13:49 Resp 15 05/25/23 13:49 BP 129/68 05/25/23 13:49 Pulse Ox 97 05/25/23 13:49 O2 Del Method Room Air 05/25/23 13:49 BMI result Body Mass Index 35.4 Constitutional - Awake and Alert, No apparent distress Eyes - PERRLA, EOMI Cardiovascular - S1S2, RRR Respiratory - Normal lung expansion, Normal respiratory effort, No respiratory distress, CTA bilaterally Extremities - ble edema with erythema, warmth, and multiple superficial appearing wounds without active purulent drainage Musculoskeletal - Normal inspection, normal ROM Skin - Warm/Dry Neurological - Alert & oriented x3 Psychological - Appropriate affect Objective Data Active Medications Acetaminophen (Acetaminophen 325 Mg Tablet) 650 mg PO Q6H PRN PRN Reason: Pain, Mild (Pain Scale 1-3) Last Admin: 05/25/23 04:12 Dose: 650 mg Documented By: COLT Alprazolam (Alprazolam 0.5 Mg Tablet) 0.5 mg PO BEDTIME [facility] Apixaban (Apixaban 5 Mg Tablet) 5 mg PO BID [facility] Last Admin: 05/25/23 10:58 Dose: 5 mg Documented By: RHYS Atorvastatin Calcium (Atorvastatin Calcium 40 Mg Tablet) 40 mg PO BEDTIME [facility] Dextrose (Dextrose 50 % 25 Gm/50 Ml Syringe) 25 gm IVPUSH Q15M PRN; Protocol PRN Reason: per Hypoglycemia Standing Ord. Diphenhydramine HCl (Diphenhydramine Hcl 25 Mg Capsule) 25 mg PO Q4H PRN PRN Reason: Itching Last Admin: 05/25/23 15:54 Dose: 25 mg Documented By: CARLO Empagliflozin (Empagliflozin 25 Mg Tablet) 25 mg PO DAILY [facility] Last Admin: 05/25/23 10:58 Dose: 25 mg Documented By: RHYS Gabapentin (Gabapentin 400 Mg Capsule) 400 mg PO QID [facility] Last Admin: 05/25/23 14:03 Dose: 400 mg Documented By: RHYS Glucose (Glucose Gel 15 Gm Gel..Gram.) 15 gm PO Q15M PRN; Protocol PRN Reason: per Hypoglycemia Standing Ord. Piperacillin Sod/Tazobactam (Sod 4.5 gm/ Sodium Chloride) 100 mls @ 200 mls/hr IV Q6H [facility] Last Admin: 05/25/23 15:54 Dose: 200 mls/hr Documented By: CARLO Vancomycin HCl 1,000 mg/ (Sodium Chloride) 270 mls @ 270 mls/hr IV Q12H [facility] Insulin Glargine (Insulin Glargine,Hum.Rec.Anlog 100 Unit/Ml 10 Ml Vial) 28 unit SUBCUT BID [facility] Last Admin: 05/25/23 09:02 Dose: 28 unit Documented By: RHYS Insulin Human Lispro (Insulin Lispro 100 Unit/Ml 3 Ml Vial) 0 unit SUBCUT QIDACHS [facility]; Protocol Last Admin: 05/25/23 14:01 Dose: 4 unit Documented By: RHYS Melatonin (Melatonin 3 Mg Tablet) 6 mg PO BEDTIME PRN PRN Reason: Insomnia Methadone HCl (Methadone Hcl 20 Mg/2 Ml Oral.Conc) 135 mg PO DAILY [facility] Last Admin: 05/25/23 14:02 Dose: 135 mg Documented By: RHYS Morphine Sulfate (Morphine Sulfate 4 Mg/Ml Cartridge) 3 mg IVPUSH Q3H PRN; Protocol PRN Reason: Pain, Severe (Pain Scale 7-10) Last Admin: 05/25/23 15:54 Dose: 3 mg Documented By: CARLO Nicotine (Nicotine 21 Mg Patch.Td24) 21 mg TRANSDERMA DAILY [facility] Last Admin: 05/25/23 10:58 Dose: 21 mg Documented By: RHYS Ondansetron HCl (Ondansetron Hcl 4 Mg/2 Ml Vial) 4 mg IVPUSH Q8H PRN PRN Reason: Nausea and Vomiting Last Admin: 05/25/23 06:43 Dose: 4 mg Documented By: COLT Pharmacy Consult (Consult Rx Vancomycin Dosing) 1 each MISCELLANE DAILY PRN PRN Reason: Consult order Sodium Chloride (0.9 % Sodium Chloride Flush 3 Ml Syringe) 3 ml IVFLUSH QSHIFT [facility] Last Admin: 05/25/23 09:03 Dose: 3 ml Documented By: SCOC Labs 05/25/23 10:48 05/25/23 10:48 Labs: Laboratory Results - last 24 hr 05/24/23 05/24/23 05/24/23 17:53 18:11 20:49 MCV 89.8 MCH 29.1 MCHC 32.4 RDW 14.9 Plt Count 331 MPV 10.3 Immature Gran % (Auto) 0.6 H Neut % (Auto) 86.2 H Lymph % (Auto) 7.2 L Hayes % (Auto) 5.2 Eos % (Auto) 0.3 Baso % (Auto) 0.5 Lymph # (Auto) 1.3 Hayes # (Auto) 0.9 Eos # (Auto) 0.1 Baso # (Auto) 0.1 Abs Immat Gran (auto) 0.11 H Absolute Neuts (auto) 15.5 H Absolute Nucleated RBC 0.000 Nucleated RBC % (auto) 0.0 Anion Gap 20 Estim Creat Clear Calc 56.7 Estimated GFR 45 POC Glucose 416 H* 264 H Random Glucose 432 H* Lactic Acid 2.8 H* Lactic Acid F/U @ 2Hr Calcium 10.2 D Total Bilirubin 0.2 AST 10 ALT 12 Alkaline Phosphatase 109 Total Protein 8.4 H Albumin 4.1 Beta-Hydroxybutyrate 0.30 H 05/24/23 05/25/23 05/25/23 21:51 04:26 07:48 MCV MCH MCHC RDW Plt Count MPV Immature Gran % (Auto) Neut % (Auto) Lymph % (Auto) Hayes % (Auto) Eos % (Auto) Baso % (Auto) Lymph # (Auto) Hayes # (Auto) Eos # (Auto) Baso # (Auto) Abs Immat Gran (auto) Absolute Neuts (auto) Absolute Nucleated RBC Nucleated RBC % (auto) Anion Gap Estim Creat Clear Calc Estimated GFR POC Glucose 188 H 222 H Random Glucose Lactic Acid Lactic Acid F/U @ 2Hr 1.7 Calcium Total Bilirubin AST ALT Alkaline Phosphatase Total Protein Albumin Beta-Hydroxybutyrate 05/25/23 05/25/23 10:48 11:18 MCV 91.2 MCH 29.0 MCHC 31.8 RDW 15.0 Plt Count 322 MPV 10.2 Immature Gran % (Auto) 0.6 H Neut % (Auto) 71.0 Lymph % (Auto) 20.2 Hayes % (Auto) 6.4 Eos % (Auto) 1.3 Baso % (Auto) 0.5 Lymph # (Auto) 2.3 Hayes # (Auto) 0.7 Eos # (Auto) 0.1 Baso # (Auto) 0.1 Abs Immat Gran (auto) 0.07 H Absolute Neuts (auto) 8.0 Absolute Nucleated RBC 0.000 Nucleated RBC % (auto) 0.0 Anion Gap 15 Estim Creat Clear Calc 86.8 Estimated GFR > 60 POC Glucose 225 H Random Glucose 227 H Lactic Acid Lactic Acid F/U @ 2Hr Calcium 9.5 D Total Bilirubin AST ALT Alkaline Phosphatase Total Protein Albumin Beta-Hydroxybutyrate Assessment and Plan (1) Sepsis: Status: Acute (2) Toxic metabolic encephalopathy: Status: Acute (3) Bilateral cellulitis of lower leg: Status: Acute Plan Pt is a -year-old female with a PMH significant for?peripheral artery disease, insulin-dependent type 2 diabetes, he osteomyelitis s/p right transmetatarsal amputation, hx of NSTEMI, polysubstance use disorder, hx of bilateral pulmonary embolism on lifelong anticoagulation with Eliquis, chronic opiate dependence on methadone, and recent admission for bilateral lower extremity cellulitis with chronic right lower extremity wound who presents to the ED with?altered mental status after snorting gabapentin. Pt will be admitted to the hospital for treatment and further evaluation of bilateral lower leg cellulitis with chronic wounds. #Bilateral lower leg extremity cellulitis with chronic and new superficial wounds- still extensive covering b/l lower legs to the knees Likely secondary to uncontrolled diabetes type 2 Patient not yet established with Wound Care Clinic since last discharge Sepsis resolved Will treat with IV antibiotics: Vanco and Zosyn, started 05/24/2023, D2 Benadryl for pruritus Analgesics for pain management General surgery consult- no acute surgical issues. Recommends local wound care and outpt follow up with wound care [employer] prn Follow cultures Acute toxic metabolic encephalopathy, resolved Patient initially presented with altered mental status likely secondary to snorting gabapentin Patient administered Narcan by EMS Patient currently at baseline mentation Addition medicine consult Hyperglycemia/insulin-dependent diabetes type 2 Presented with POC glucose of 416 Patient with poor diabetic medication compliance Hold metformin Will place on sliding scale insulin, Lantus Continue Jardiance Diabetic diet Follow POC BERNABE- resolved Creatinine 1.24-->0.81 Likely secondary to dehydration from reduced p.o. intake Patient received IVF in ED Follow BMP PAD Continue statin HTN Continue lisinopril Hx of bilateral PE Continue Eliquis DVT prophylaxis-Eliquis Full code Patient requires ongoing inpatient stay for management of extensive cellulitis of the bilateral lower legs in patient with uncontrolled diabetes with diabetic ulceration requiring IV antibiotics discussed with dr garcia Time Spent With Patient Time: Total time managing care of this patient today ____ minutes. Quality Stroke Does the patient have a stroke diagnosis?: No VTE Prior VTE?: No VTE Risk Level:: Medical - moderate - high VTE Device Contraindication: Treatment Not Indicated VTE Drug Contraindication: N/A - Med Ordered
[2023-05-25 16:56] LABS: Glucose, Whole Blood 274 mg/dL (60-115)
--- NOTE | 2023-05-25 20:01 | MHC.EDTECH ---
Patient repositioned and bed pads changed
[2023-05-25] MEDS: Atorvastatin Calcium 40 MG TABLET PO (20:27)
[2023-05-25] MEDS: ALPRAZolam 0.5 MG TABLET PO (20:27)
[2023-05-25] MEDS: vancomycin HCL 1,000 MG in 0.9 % Sodium Chloride 250 ML 270 MG IV (20:28)
--- NOTE | 2023-05-25 20:39 | PC.NURSE ---
pt repositioned, medicated for pain management and per Mar, Will continue to monitor pt.
[2023-05-25 20:48] LABS: Glucose, Whole Blood 262 mg/dL (60-115)
--- NOTE | 2023-05-25 20:52 | PC.NURSE ---
pt given insulin coverage.
--- NOTE | 2023-05-25 21:19 | MHC.EDTECH ---
Patent inc and patient changed
--- NOTE | 2023-05-25 22:33 | PC.NURSE ---
pt medicated per Mar. Will continue to monitor.
--- NOTE | 2023-05-25 22:44 | PC.NURSE ---
Report called to receiving unit. Pt being transported.
[2023-05-26] MEDS: diphenhydrAMINE HCL 25 MG CAPSULE PO ×4 (00:52→22:05)
[2023-05-26] MEDS: Morphine Sulfate 4 MG/ML CARTRIDGE 3 MG IVPUSH ×5 (00:52→14:58)
[2023-05-26] MEDS: 0.9 % Sodium Chloride Flush 3 ML SYRINGE IVFLUSH ×3 (00:55→21:06)
[2023-05-26] MEDS: Piperacillin Sodium/Tazobactam 4.5 GM in 0.9 % Sodium Chloride 100 ML IV ×4 (04:09→21:57)
[2023-05-26 06:05] LABS: MANUAL DIFF FLAG NO
[2023-05-26 06:18] LABS: Vancomycin Trough 11.1 mcg/mL (10.0-20.0)
[2023-05-26 06:21] LABS: Anion Gap 14 (12-20); Blood Urea Nitrogen 20 mg/dL (9-16); Calcium 9.6 mg/dL (8.4-10.2); Carbon Dioxide 24 mmol/L (22-29); Chloride 102 mmol/L (96-108); Creatinine Clr Calc Pharmacy 92.6; Estimated Glomerular Filt Rate > 60; Glucose Random 339 mg/dL (60-115); Potassium 4.3 mmol/L (3.3-5.1); Sodium 136 mmol/L (135-145)
[2023-05-26 06:24] LABS: Basophils Absolute Auto 0.1 X10*3/uL (0.0-0.2); Basophils Percent Auto 0.7 % (0-2); Eosinophils Absolute Auto 0.1 X10*3/uL (0.0-0.4); Eosinophils Percent Auto 1.5 % (0-4); Hematocrit 32.5 % (37.0-47.0); Hemoglobin 10.3 g/dl (12.0-16.0); Imm Gran Abs Auto 0.04 X10*3/uL (0.00-0.03); Imm Gran Pct Auto 0.4 % (0.0-0.4); Lymphocytes Absolute Auto 1.9 X10*3/uL (1.2-4.9); Lymphocytes Percent Auto 20.7 % (20-40); Mean Corpuscular HGB Conc 31.7 g/dl (31.0-35.0); Mean Corpuscular Hemoglobin 29.3 pg (27.0-33.0); Mean Corpuscular Volume 92.6 fL (80.0-98.0); Mean Platelet Volume 10.1 fL (9.4-12.3); Monocytes Absolute Auto 0.7 X10*3/uL (0.1-1.2); Monocytes Percent Auto 7.5 % (2-11); Neutrophils Absolute Auto 6.3 x10*3/uL (2.0-8.3); Neutrophils Percent Auto 69.2 % (45-73); Platelet Count 334 X10*3/uL (160-400); Red Blood Count 3.51 X10*6/uL (4.20-5.50); Red Cell Distribution Width 14.8 % (11.0-16.0); White Blood Count 9.2 X10*3/uL (4.8-10.8)
--- NOTE | 2023-05-26 06:38 | HE.PHANOTE ---
YOLANDA JOHNSON TROUGH RETURNED AT 11.1. NOTICED PT'S WEIGHT WAS OFF BY 14KG...WAS UPDATED YESTERDAY LEADING TO AN INACCURATE PREDICTOR. WILL BE MORE AGRESSIVE AND GIVE 1250MG X 2 DOSES AND THEN GET A RANDOM LEVEL TOMORROW AT 0600. EJ
[2023-05-26] MEDS: vancomycin HCL 1,250 MG in 0.9 % Sodium Chloride 250 ML 166.67 MG IV ×2 (07:27→20:04)
[2023-05-26 07:28] LABS: Glucose, Whole Blood 256 mg/dL (60-115)
[2023-05-26] MEDS: Insulin Lispro 100 UNIT/ML 3 ML VIAL SUBCUT ×4 (07:30→21:04)
[2023-05-26 07:48] VITALS: BP 159/63; PULSE 79; RESP 16; TEMP 36.4; O2SAT 95
[2023-05-26] MEDS: Gabapentin 400 MG CAPSULE PO ×4 (08:01→20:04)
[2023-05-26] MEDS: Nicotine 21 MG PATCH.TD24 TRANSDERMA (08:01)
[2023-05-26] MEDS: Apixaban 5 MG TABLET PO ×2 (08:01→20:04)
[2023-05-26] MEDS: methADONE HCl 20 MG/2 ML ORAL.CONC 135 MG PO (08:02)
[2023-05-26] MEDS: Empagliflozin 25 MG TABLET PO (08:02)
[2023-05-26] MEDS: Insulin Glargine,Hum.rec.anlog 100 UNIT/ML 10 ML VIAL 28 UNIT SUBCUT (08:02)
[2023-05-26 11:09] LABS: Glucose, Whole Blood 218 mg/dL (60-115)
--- NOTE | 2023-05-26 13:17 | P.PNIM_ITS ---
Subjective Subjective Date of Service: 05/26/23 Interval History: Seen and evaluated complaining of pain and burning denies any fever or chills No other overnight events Review of Systems Review of Systems: Yes all other systems are reviewed and are negative Physical Exam 2 Vital Signs: Vital Signs: Last Vital Signs Temp 97.5 F 05/26/23 07:48 Pulse 79 05/26/23 07:48 Resp 16 05/26/23 07:48 BP 159/63 H 05/26/23 07:48 Pulse Ox 95 05/26/23 07:48 O2 Del Method Room Air 05/26/23 07:48 BMI result Body Mass Index 40.6 Const: Other: Constitutional : Awake, interactive, not in distress Neck : Normal inspection, Supple Cardiovascular : RRR, no JVP, no lower extremity edema Respiratory : good bilateral air entry, no crackles, wheezes or rhonchi Gastrointestinal: soft, lax, Normal bowel sounds, Non tender Skin : Warm, Dry, Bilateral lower extremities multiple open wounds, erythema and tenderness Neurological : Alert & oriented x3, No focal deficit Objective Data Active Medications Acetaminophen (Acetaminophen 325 Mg Tablet) 650 mg PO Q6H PRN PRN Reason: Pain, Mild (Pain Scale 1-3) Last Admin: 05/25/23 04:12 Dose: 650 mg Documented By: COLT Alprazolam (Alprazolam 0.5 Mg Tablet) 0.5 mg PO BEDTIME [facility] Last Admin: 05/25/23 20:27 Dose: 0.5 mg Documented By: NASEEM Apixaban (Apixaban 5 Mg Tablet) 5 mg PO BID [facility] Last Admin: 05/26/23 08:01 Dose: 5 mg Documented By: SON Atorvastatin Calcium (Atorvastatin Calcium 40 Mg Tablet) 40 mg PO BEDTIME [facility] Last Admin: 05/25/23 20:27 Dose: 40 mg Documented By: NASEEM Dextrose (Dextrose 50 % 25 Gm/50 Ml Syringe) 25 gm IVPUSH Q15M PRN; Protocol PRN Reason: per Hypoglycemia Standing Ord. Diphenhydramine HCl (Diphenhydramine Hcl 25 Mg Capsule) 25 mg PO Q4H PRN PRN Reason: Itching Last Admin: 05/26/23 09:02 Dose: 25 mg Documented By: SON Empagliflozin (Empagliflozin 25 Mg Tablet) 25 mg PO DAILY [facility] Last Admin: 05/26/23 08:02 Dose: 25 mg Documented By: SON Gabapentin (Gabapentin 400 Mg Capsule) 400 mg PO QID [facility] Last Admin: 05/26/23 11:58 Dose: 400 mg Documented By: SON Glucose (Glucose Gel 15 Gm Gel..Gram.) 15 gm PO Q15M PRN; Protocol PRN Reason: per Hypoglycemia Standing Ord. Piperacillin Sod/Tazobactam (Sod 4.5 gm/ Sodium Chloride) 100 mls @ 200 mls/hr IV Q6H [facility] Last Infusion: 05/26/23 10:24 Dose: Infused Documented By: SON Vancomycin HCl 1,250 mg/ (Sodium Chloride) 250 mls @ 166.667 mls/hr IV Q12H [facility] Last Infusion: 05/26/23 09:20 Dose: Infused Documented By: SON Insulin Glargine (Insulin Glargine,Hum.Rec.Anlog 100 Unit/Ml 10 Ml Vial) 28 unit SUBCUT BID [facility] Last Admin: 05/26/23 08:02 Dose: 28 unit Documented By: SON Insulin Human Lispro (Insulin Lispro 100 Unit/Ml 3 Ml Vial) 0 unit SUBCUT QIDACHS [facility]; Protocol Last Admin: 05/26/23 11:59 Dose: 4 unit Documented By: SON Lactic Acid (Ammonium Lactate 12 % Lotion 226 Gm Bottle) 1 appl TOPICAL BID [facility]; Protocol Last Admin: 05/26/23 08:49 Dose: Not Given Documented By: SON Non-Admin Reason: med not avil. Melatonin (Melatonin 3 Mg Tablet) 6 mg PO BEDTIME PRN PRN Reason: Insomnia Methadone HCl (Methadone Hcl 20 Mg/2 Ml Oral.Conc) 135 mg PO DAILY [facility] Last Admin: 05/26/23 08:02 Dose: 135 mg Documented By: SON Morphine Sulfate (Morphine Sulfate 4 Mg/Ml Cartridge) 3 mg IVPUSH Q3H PRN; Protocol PRN Reason: Pain, Severe (Pain Scale 7-10) Last Admin: 05/26/23 11:58 Dose: 3 mg Documented By: SON Nicotine (Nicotine 21 Mg Patch.Td24) 21 mg TRANSDERMA DAILY [facility] Last Admin: 05/26/23 08:01 Dose: 21 mg Documented By: SON Ondansetron HCl (Ondansetron Hcl 4 Mg/2 Ml Vial) 4 mg IVPUSH Q8H PRN PRN Reason: Nausea and Vomiting Last Admin: 05/25/23 06:43 Dose: 4 mg Documented By: COLT Pharmacy Consult (Consult Rx Vancomycin Dosing) 1 each MISCELLANE DAILY PRN PRN Reason: Consult order Sodium Chloride (0.9 % Sodium Chloride Flush 3 Ml Sy[facility]) [facility] Admin: 05/26/23 07:31 Dose: 3 ml Documented By: SON Labs 05/26/23 05:58 05/26/23 05:58 Labs: Laboratory Results - last 24 hr 05/25/23 05/25/23 05/26/23 16:38 20:44 05:58 MCV 92.6 MCH 29.3 MCHC 31.7 RDW 14.8 Plt Count 334 MPV 10.1 Immature Gran % (Auto) 0.4 Neut % (Auto) 69.2 Lymph % (Auto) 20.7 [place] % (Auto) 7.5 Eos % (Auto) 1.5 Baso % (Auto) 0.7 Lymph # (Auto) 1.9 [place] # (Auto) 0.7 Eos # (Auto) 0.1 Baso # (Auto) 0.1 Abs Immat Gran (auto) 0.04 H Absolute Neuts (auto) 6.3 Absolute Nucleated RBC 0.000 Nucleated RBC % (auto) 0.0 Anion Gap 14 Estim Creat Clear Calc 92.6 Estimated GFR > 60 POC Glucose 274 H 262 H Random Glucose 339 H Calcium 9.6 Vancomycin Trough 11.1 05/26/23 05/26/23 07:24 11:06 MCV MCH MCHC RDW Plt Count MPV Immature Gran % (Auto) Neut % (Auto) Lymph % (Auto) [place] % (Auto) Eos % (Auto) Baso % (Auto) Lymph # (Auto) [place] # (Auto) Eos # (Auto) Baso # (Auto) Abs Immat Gran (auto) Absolute Neuts (auto) Absolute Nucleated RBC Nucleated RBC % (auto) Anion Gap Estim Creat Clear Calc Estimated GFR POC Glucose 256 H 218 H Random Glucose Calcium Vancomycin Trough Microbiology Microbiology Results: Microbiology 05/24/23 18:27 Blood Culture - Preliminary Blood - Venous No growth after 24 hours. 10/18/23 18:11 Blood Culture - Preliminary Blood - Venous No growth after 24 hours. Assessment and Plan (1) Sepsis: Status: Acute (2) Toxic metabolic encephalopathy: Status: Acute (3) Bilateral cellulitis of lower leg: Status: Acute (4) Hyperglycemia due to type 2 diabetes mellitus: Status: Acute Plan Pt is a -year-old female with a PMH significant for?peripheral artery disease, insulin-dependent type 2 diabetes, he osteomyelitis s/p right transmetatarsal amputation, hx of NSTEMI, polysubstance use disorder, hx of bilateral pulmonary embolism on lifelong anticoagulation with Eliquis, chronic opiate dependence on methadone, and recent admission for bilateral lower extremity cellulitis with chronic right lower extremity wound who presents to the ED with?altered mental status after snorting gabapentin. Pt will be admitted to the hospital for treatment and further evaluation of bilateral lower leg cellulitis with chronic wounds. #Bilateral lower leg extremity cellulitis with chronic and new superficial wounds secondary to uncontrolled diabetes type 2 IV antibiotics: Vanco and Zosyn, started 05/24/2023 Benadryl for pruritus Tylenol, Duloxitine added for pain Morphine PRN General surgery consult- no acute surgical issues. Recommends local wound care and outpt follow up with wound care rn wellnessrn clinical resource prn Follow cultures # Acute toxic metabolic encephalopathy, resolved likely secondary to snorting gabapentin currently at baseline Addition medicine consult # Hyperglycemia/insulin-dependent diabetes type 2 Check A1c restart metformin Will place on sliding scale insulin, Lantus Continue Jardiance Diabetic diet Follow POC # BERNABE resolved Creatinine 1.24-->0.81 Likely secondary to dehydration from reduced p.o. intake Patient received IVF in ED Follow BMP # PAD Continue statin HTN Continue lisinopril Hx of bilateral PE Continue Eliquis DVT prophylaxis Eliquis Patient requires ongoing inpatient stay for management of extensive cellulitis of the bilateral lower legs in patient with uncontrolled diabetes with diabetic ulceration requiring IV antibiotics Time Spent With Patient Time: Total time managing care of this patient today ____ minutes. Quality Stroke Does the patient have a stroke diagnosis?: No VTE Prior VTE?: No VTE Risk Level:: Medical - moderate - high VTE Device Contraindication: Treatment Not Indicated VTE Drug Contraindication: N/A - Med Ordered
--- NOTE | 2023-05-26 14:19 | PC.NURSE ---
Refused Duloxetine, and Gregorio Wraps.
--- NOTE | 2023-05-26 15:23 | MHC.CM.PN ---
EMR REVIEWED AND PER MD ROUNDS, PT NOT MEDICALLY CLEARED FOR DC TODAY. CM WILL CONTINUE TO FOLLOW FOR ANY CHANGES IN DC PLAN/NEEDS
[2023-05-26 15:35] VITALS: BP 144/74; PULSE 85; RESP 16; TEMP 36.3; O2SAT 99
[2023-05-26 16:19] LABS: Estimated Average Glucose 240 mg/dL
[2023-05-26 16:23] LABS: Glucose, Whole Blood 253 mg/dL (60-115)
[2023-05-26] MEDS: Acetaminophen 325 MG TABLET 975 MG PO (16:34)
[2023-05-26] MEDS: metFORMIN HCl 500 MG TABLET PO (16:34)
[2023-05-26] MEDS: oxyCODONE HCl Immed Release 5 MG TABLET PO ×2 (16:34→22:05)
--- NOTE | 2023-05-26 16:40 | PM.EVENT ---
Event Note Date of Service: 05/26/23 Event Note: Addiction consult placed for patient with OUD Met with mortgage loan reviewer to complete SUDE--engaged in treatment via OTP Declines additional recovery supports. No follow up indicated at this time Time Spent With Patient Time: Total time managing care of this patient today ____ minutes.
--- NOTE | 2023-05-26 16:55 | P.CDIM_ITS ---
PROVIDER RESPONSE TEXT: To clarify, the appropriate diagnosis supported by the clinical indicators: Severe or Morbid Obesity Without alveolar hypoventilation QUERY TEXT: PHYSICIAN'S DOCUMENTATION REQUEST Date of Query: 05/26/2023 12:12 PM EDT Patient Name: Marilou Siddiqui Admit Date: 05/25/2023 Dear [employer], A review of the medical record indicates additional documentation may be needed. Please review below and update the documentation accordingly. Clinical Indicators: Nursing notes Height and Weight: BMI 40.7 5ft 3in 104.1kg Extreme obesity Class III If possible, please provide an associated diagnosis related to the abnormal BMI, such as: Obesity Due to excess calories Obesity Due to other cause Specify the other cause Severe or Morbid Obesity With alveolar hypoventilation Severe or Morbid Obesity Without alveolar hypoventilation Other (explain)Clinically unable to determine (explain)Thank you, Jessica Anguiano, CCS, CDIS Use of terms such as suspected, likely, concern for, or probable (associated with a specific diagnosi s that is being evaluated, monitored, or treated as if it exists) are acceptable and can be coded in the inpatient se tting, when documented at the time of discharge. Please use your independent medical judgment in providing your response. THIS QUERY IS PART OF THE PERMANENT MEDICAL RECORD
[2023-05-26] MEDS: Morphine Sulfate 4 MG/ML CARTRIDGE 2 MG IVPUSH ×2 (17:59→21:05)
[2023-05-26 19:36] VITALS: BP 149/70; PULSE 80; RESP 18; TEMP 36.4; O2SAT 95
[2023-05-26] MEDS: Atorvastatin Calcium 40 MG TABLET PO (20:04)
[2023-05-26] MEDS: Ammonium Lactate 12 % Lotion 226 GM BOTTLE 1 APPL TOPICAL (20:04)
[2023-05-26] MEDS: ALPRAZolam 0.5 MG TABLET PO (20:04)
[2023-05-26 20:08] LABS: Glucose, Whole Blood 286 mg/dL (60-115)
[2023-05-26] MEDS: Insulin Glargine,Hum.rec.anlog 100 UNIT/ML 10 ML VIAL 35 UNIT SUBCUT (21:04)
[2023-05-27] VITALS (7 sets, daily range): BP systolic 137–184; BP diastolic 70–91; PULSE 70–80; RESP 16–20; TEMP 36.1–36.6; O2SAT 95–99
[2023-05-27] MEDS: Morphine Sulfate 4 MG/ML CARTRIDGE 2 MG IVPUSH ×6 (01:10→22:14)
[2023-05-27] MEDS: oxyCODONE HCl Immed Release 5 MG TABLET PO ×4 (04:19→23:54)
[2023-05-27] MEDS: Piperacillin Sodium/Tazobactam 4.5 GM in 0.9 % Sodium Chloride 100 ML IV ×4 (04:20→21:15)
[2023-05-27 06:22] LABS: Hematocrit 37.6 % (37.0-47.0); Hemoglobin 11.5 g/dl (12.0-16.0); Mean Corpuscular HGB Conc 30.6 g/dl (31.0-35.0); Mean Corpuscular Hemoglobin 29.1 pg (27.0-33.0); Mean Corpuscular Volume 95.2 fL (80.0-98.0); Mean Platelet Volume 10.5 fL (9.4-12.3); Platelet Count 350 X10*3/uL (160-400); Red Blood Count 3.95 X10*6/uL (4.20-5.50); Red Cell Distribution Width 14.6 % (11.0-16.0); White Blood Count 8.4 X10*3/uL (4.8-10.8)
[2023-05-27 06:35] LABS: Vancomycin Random 15.5 mcg/mL (15-20)
[2023-05-27 06:37] LABS: Anion Gap 16 (12-20); Blood Urea Nitrogen 22 mg/dL (9-16); Calcium 9.9 mg/dL (8.4-10.2); Carbon Dioxide 24 mmol/L (22-29); Chloride 102 mmol/L (96-108); Creatinine Clr Calc Pharmacy 82.5; Estimated Glomerular Filt Rate > 60; Glucose Random 299 mg/dL (60-115); Sodium 138 mmol/L (135-145)
[2023-05-27 07:06] LABS: Glucose, Whole Blood 293 mg/dL (60-115)
--- NOTE | 2023-05-27 07:13 | HE.PHANOTE ---
Vanco level 15.5. continue 1250 mg q12h for auc of ~596
[2023-05-27] MEDS: Insulin Lispro 100 UNIT/ML 3 ML VIAL SUBCUT ×4 (08:11→21:15)
[2023-05-27] MEDS: methADONE HCl 20 MG/2 ML ORAL.CONC 135 MG PO (09:30)
[2023-05-27] MEDS: Insulin Glargine,Hum.rec.anlog 100 UNIT/ML 10 ML VIAL 35 UNIT SUBCUT ×2 (09:30→21:15)
[2023-05-27] MEDS: Acetaminophen 325 MG TABLET 975 MG PO ×3 (09:31→16:35)
[2023-05-27] MEDS: Apixaban 5 MG TABLET PO ×2 (09:31→21:14)
[2023-05-27] MEDS: metFORMIN HCl 500 MG TABLET PO ×2 (09:32→16:35)
[2023-05-27] MEDS: DULoxetine HCl 20 MG CAPSULE.DR PO (09:32)
[2023-05-27] MEDS: Empagliflozin 25 MG TABLET PO (09:32)
[2023-05-27] MEDS: Gabapentin 300 MG CAPSULE 600 MG PO ×4 (09:32→21:14)
[2023-05-27] MEDS: Ammonium Lactate 12 % Lotion 226 GM BOTTLE 1 APPL TOPICAL ×2 (09:46→21:23)
[2023-05-27] MEDS: 0.9 % Sodium Chloride Flush 3 ML SYRINGE IVFLUSH ×2 (09:46→19:34)
[2023-05-27] MEDS: Nicotine 21 MG PATCH.TD24 TRANSDERMA (09:47)
[2023-05-27] MEDS: vancomycin HCL 1,250 MG in 0.9 % Sodium Chloride 250 ML 166.67 MG IV ×2 (09:50→19:33)
[2023-05-27 11:07] LABS: Glucose, Whole Blood 223 mg/dL (60-115)
--- NOTE | 2023-05-27 11:39 | HO.PM.IMPN ---
Subjective Subjective Date of Service: 05/27/23 Interval History: Seen and evaluated complaining of pain and burning, better today though denies any fever or chills No other overnight events Review of Systems Review of Systems: Yes all other systems are reviewed and are negative Physical Exam Vital Signs: Vital Signs: Last Vital Signs Temp 97.7 F 05/27/23 07:41 Pulse 78 05/27/23 09:26 Resp 19 05/27/23 09:26 BP 184/86 H 05/27/23 09:26 Pulse Ox 99 05/27/23 09:26 O2 Del Method Room Air 05/27/23 09:26 BMI result Body Mass Index 40.6 Const: Other: Constitutional : Awake, interactive, not in distress Neck : Normal inspection, Supple Cardiovascular : RRR, no JVP, no lower extremity edema Respiratory : good bilateral air entry, no crackles, wheezes or rhonchi Gastrointestinal: soft, lax, Normal bowel sounds, Non tender Skin : Warm, Dry, Bilateral lower extremities multiple open wounds, erythema and tenderness Neurological : Alert & oriented x3, No focal deficit Objective Data Active Medications Acetaminophen (Acetaminophen 325 Mg Tablet) 975 mg PO TIDWM [facility] Last Admin: 05/27/23 09:31 Dose: 975 mg Documented By: BERTA Alprazolam (Alprazolam 0.5 Mg Tablet) 0.5 mg PO BEDTIME [facility] Last Admin: 05/26/23 20:04 Dose: 0.5 mg Documented By: ADRIANA Apixaban (Apixaban 5 Mg Tablet) 5 mg PO BID [facility] Last Admin: 05/27/23 09:31 Dose: 5 mg Documented By: BERTA Atorvastatin Calcium (Atorvastatin Calcium 40 Mg Tablet) 40 mg PO BEDTIME [facility] Last Admin: 05/26/23 20:04 Dose: 40 mg Documented By: ADRIANA Dextrose (Dextrose 50 % 25 Gm/50 Ml Syringe) 25 gm IVPUSH Q15M PRN; Protocol PRN Reason: per Hypoglycemia Standing Ord. Diphenhydramine HCl (Diphenhydramine Hcl 25 Mg Capsule) 25 mg PO Q4H PRN PRN Reason: Itching Last Admin: 05/26/23 22:05 Dose: 25 mg Documented By: ADRIANA Duloxetine HCl (Duloxetine Hcl 20 Mg Capsule.) 20 mg PO DAILY [facility] Last Admin: 05/27/23 09:32 Dose: 20 mg Documented By: BERTA Empagliflozin (Empagliflozin 25 Mg Tablet) 25 mg PO DAILY [facility] Last Admin: 05/27/23 09:32 Dose: 25 mg Documented By: BERTA Gabapentin (Gabapentin 300 Mg Capsule) 600 mg PO QID [facility] Last Admin: 05/27/23 09:32 Dose: 600 mg Documented By: BERTA Glucose (Glucose Gel 15 Gm Gel..Gram.) 15 gm PO Q15M PRN; Protocol PRN Reason: per Hypoglycemia Standing Ord. Piperacillin Sod/Tazobactam (Sod 4.5 gm/ Sodium Chloride) 100 mls @ 200 mls/hr IV Q6H [facility] Last Admin: 05/27/23 11:26 Dose: 200 mls/hr Documented By: EDBBIE Vancomycin HCl 1,250 mg/ (Sodium Chloride) 250 mls @ 166.667 mls/hr IV Q12H [facility] Last Infusion: 05/27/23 11:27 Dose: Infused Documented By: DEBBIE Insulin Glargine (Insulin Glargine,Hum.Rec.Anlog 100 Unit/Ml 10 Ml Vial) 35 unit SUBCUT BID [facility] Last Admin: 05/27/23 09:30 Dose: 35 unit Documented By: BERTA Insulin Human Lispro (Insulin Lispro 100 Unit/Ml 3 Ml Vial) 0 unit SUBCUT QIDACHS [facility]; Protocol Last Admin: 05/27/23 11:26 Dose: 4 unit Documented By: DEBBIE Lactic Acid (Ammonium Lactate 12 % Lotion 226 Gm Bottle) 1 appl TOPICAL BID [facility]; Protocol Last Admin: 05/27/23 09:46 Dose: 1 appl Documented By: BERTA Melatonin (Melatonin 3 Mg Tablet) 6 mg PO BEDTIME PRN PRN Reason: Insomnia Metformin HCl (Metformin Hcl 500 Mg Tablet) 500 mg PO BIDWM [facility] Last Admin: 05/27/23 09:32 Dose: 500 mg Documented By: BERTA Methadone HCl (Methadone Hcl 20 Mg/2 Ml Oral.Conc) 135 mg PO DAILY [facility] Last Admin: 05/27/23 09:30 Dose: 135 mg Documented By: BERTA Morphine Sulfate (Morphine Sulfate 4 Mg/Ml Cartridge) 2 mg IVPUSH Q4H PRN; Protocol PRN Reason: Pain, Severe (Pain Scale 7-10) Last Admin: 05/27/23 09:29 Dose: 2 mg Documented By: BERTA Nicotine (Nicotine 21 Mg Patch.Td24) 21 mg TRANSDERMA DAILY [facility] Last Admin: 05/27/23 09:47 Dose: 21 mg Documented By: BERTA Ondansetron HCl (Ondansetron Hcl 4 Mg/2 Ml Vial) 4 mg IVPUSH Q8H PRN PRN Reason: Nausea and Vomiting Last Admin: 05/25/23 06:43 Dose: 4 mg Documented By: COLT Oxycodone HCl (Oxycodone Hcl Immed Release 5 Mg Tablet) 5 mg PO Q6H PRN PRN Reason: Pain, Severe (Pain Scale 7-10) Last Admin: 05/27/23 10:18 Dose: 5 mg Documented By: DEBBIE Pharmacy Consult (Consult Rx Vancomycin Dosing) 1 each MISCELLANE DAILY PRN PRN Reason: Consult order Sodium Chloride (0.9 % Sodium Chloride Flush 3 Ml Syringe) 3 ml IVFLUSH QSHIFT [facility] Last Admin: 05/27/23 09:46 Dose: 3 ml Documented By: BERTA Labs 05/27/23 05:31 05/27/23 05:31 Labs: Laboratory Results - last 24 hr 05/26/23 05/26/23 05/26/23 15:49 16:12 20:03 MCV MCH MCHC RDW Plt Count MPV Absolute Nucleated RBC Nucleated RBC % (auto) Anion Gap Estim Creat Clear Calc Estimated GFR POC Glucose 253 H 286 H Random Glucose Estimat Average Glucose 240 Hemoglobin A1c % 10.0 H Calcium Hold Red Top Random Vancomycin 05/27/23 05/27/23 05/27/23 05:31 07:00 11:02 MCV 95.2 MCH 29.1 MCHC 30.6 L RDW 14.6 Plt Count 350 MPV 10.5 Absolute Nucleated RBC 0.000 Nucleated RBC % (auto) 0.0 Anion Gap 16 Estim Creat Clear Calc 82.5 Estimated GFR > 60 POC Glucose 293 H 223 H Random Glucose 299 H Estimat Average Glucose Hemoglobin A1c % Calcium 9.9 Hold Red Top See Note Random Vancomycin 15.5 Microbiology Microbiology Results: Microbiology 05/24/23 18:27 Blood Culture - Preliminary Blood - Venous No growth after 48 hours. 05/24/23 18:11 Blood Culture - Preliminary Blood - Venous No growth after 48 hours. Assessment and Plan (1) Hyperglycemia due to type 2 diabetes mellitus: Status: Acute (2) Sepsis: Status: Acute (3) Toxic metabolic encephalopathy: Status: Acute (4) Bilateral cellulitis of lower leg: Status: Acute Plan Pt is a -year-old female with a PMH significant for?peripheral artery disease, insulin-dependent type 2 diabetes, he osteomyelitis s/p right transmetatarsal amputation, hx of NSTEMI, polysubstance use disorder, hx of bilateral pulmonary embolism on lifelong anticoagulation with Eliquis, chronic opiate dependence on methadone, and recent admission for bilateral lower extremity cellulitis with chronic right lower extremity wound who presents to the ED with?altered mental status after snorting gabapentin. Pt will be admitted to the hospital for treatment and further evaluation of bilateral lower leg cellulitis with chronic wounds. #Bilateral lower leg extremity cellulitis with chronic and new superficial wounds secondary to uncontrolled diabetes type 2 IV antibiotics: Vanco and Zosyn, started 05/24/2023 Benadryl for pruritus Tylenol, Duloxitine added for pain Morphine PRN General surgery consult- no acute surgical issues. Recommends local wound care and outpt follow up with wound care turntable engineerpattern hand prn Follow cultures # Acute toxic metabolic encephalopathy, resolved likely secondary to snorting gabapentin currently at baseline Addition medicine consult # Hyperglycemia/insulin-dependent diabetes type 2 Check A1c restart metformin Will place on sliding scale insulin, Lantus Continue Jardiance Diabetic diet Follow POC # BERNABE resolved Creatinine 1.24-->0.81 Likely secondary to dehydration from reduced p.o. intake Patient received IVF in ED Follow BMP # PAD Continue statin HTN Continue lisinopril Hx of bilateral PE Continue Eliquis DVT prophylaxis Eliquis Patient requires ongoing inpatient stay for management of extensive cellulitis of the bilateral lower legs in patient with uncontrolled diabetes with diabetic ulceration requiring IV antibiotics Time Spent With Patient Time: Total time managing care of this patient today ____ minutes. Quality Stroke Does the patient have a stroke diagnosis?: No VTE Prior VTE?: No VTE Risk Level:: Medical - moderate - high VTE Device Contraindication: Treatment Not Indicated VTE Drug Contraindication: N/A - Med Ordered
[2023-05-27 16:21] LABS: Glucose, Whole Blood 181 mg/dL (60-115)
[2023-05-27 20:26] LABS: Glucose, Whole Blood 227 mg/dL (60-115)
[2023-05-27] MEDS: ALPRAZolam 0.5 MG TABLET PO (21:14)
[2023-05-27] MEDS: Atorvastatin Calcium 40 MG TABLET PO (21:14)
[2023-05-28] MEDS: Morphine Sulfate 4 MG/ML CARTRIDGE 2 MG IVPUSH ×5 (02:16→19:59)
[2023-05-28] MEDS: Piperacillin Sodium/Tazobactam 4.5 GM in 0.9 % Sodium Chloride 100 ML IV ×4 (03:14→20:55)
[2023-05-28 03:57] VITALS: BP 155/88; PULSE 68; RESP 18; TEMP 36.4; O2SAT 95
[2023-05-28] MEDS: oxyCODONE HCl Immed Release 5 MG TABLET PO ×3 (05:55→18:31)
[2023-05-28 06:46] LABS: Vancomycin Random 15.7 mcg/mL (15-20)
--- NOTE | 2023-05-28 06:48 | PC.NURSE ---
Pt reported diarhhea 3x since last night, Dr. Yates was made aware.
--- NOTE | 2023-05-28 06:56 | HE.PHANOTE ---
vanco level 15. auc ~571, continue same dose
[2023-05-28 06:57] LABS: Anion Gap 17 (12-20); Blood Urea Nitrogen 22 mg/dL (9-16); Calcium 9.8 mg/dL (8.4-10.2); Carbon Dioxide 20 mmol/L (22-29); Chloride 105 mmol/L (96-108); Creatinine Clr Calc Pharmacy 91.5; Estimated Glomerular Filt Rate > 60; Glucose Random 159 mg/dL (60-115); Potassium 4.1 mmol/L (3.3-5.1); Sodium 138 mmol/L (135-145)
[2023-05-28 07:31] LABS: Glucose, Whole Blood 170 mg/dL (60-115)
[2023-05-28] MEDS: Insulin Lispro 100 UNIT/ML 3 ML VIAL SUBCUT ×4 (07:56→20:53)
[2023-05-28] MEDS: Insulin Glargine,Hum.rec.anlog 100 UNIT/ML 10 ML VIAL 35 UNIT SUBCUT ×2 (07:56→20:53)
[2023-05-28] MEDS: metFORMIN HCl 500 MG TABLET PO ×2 (07:57→16:29)
[2023-05-28] MEDS: Empagliflozin 25 MG TABLET PO (07:57)
[2023-05-28] MEDS: DULoxetine HCl 20 MG CAPSULE.DR PO (07:57)
[2023-05-28] MEDS: Acetaminophen 325 MG TABLET 975 MG PO ×3 (07:57→16:29)
[2023-05-28] MEDS: Apixaban 5 MG TABLET PO ×2 (07:57→20:00)
[2023-05-28] MEDS: Gabapentin 300 MG CAPSULE 600 MG PO ×4 (07:57→20:00)
[2023-05-28] MEDS: methADONE HCl 20 MG/2 ML ORAL.CONC 135 MG PO (07:57)
[2023-05-28] MEDS: 0.9 % Sodium Chloride Flush 3 ML SYRINGE IVFLUSH ×3 (07:58→19:15)
[2023-05-28] MEDS: vancomycin HCL 1,250 MG in 0.9 % Sodium Chloride 250 ML 166.66 MG IV (07:58)
[2023-05-28 07:59] VITALS: BP 136/69; PULSE 71; RESP 18; TEMP 36; O2SAT 98
[2023-05-28] MEDS: Nicotine 21 MG PATCH.TD24 TRANSDERMA (07:59)
[2023-05-28] MEDS: Ammonium Lactate 12 % Lotion 226 GM BOTTLE 1 APPL TOPICAL ×2 (08:12→21:02)
[2023-05-28 10:06] LABS: Hematocrit 35.4 % (37.0-47.0); Hemoglobin 11.2 g/dl (12.0-16.0); Mean Corpuscular HGB Conc 31.6 g/dl (31.0-35.0); Mean Corpuscular Hemoglobin 29.2 pg (27.0-33.0); Mean Corpuscular Volume 92.4 fL (80.0-98.0); Mean Platelet Volume 9.6 fL (9.4-12.3); Platelet Count 431 X10*3/uL (160-400); Red Blood Count 3.83 X10*6/uL (4.20-5.50); Red Cell Distribution Width 14.4 % (11.0-16.0); White Blood Count 10.8 X10*3/uL (4.8-10.8)
[2023-05-28 11:22] LABS: Glucose, Whole Blood 200 mg/dL (60-115)
[2023-05-28] MEDS: Loperamide HCl 2 MG CAPSULE PO (11:26)
[2023-05-28 12:00] VITALS: BP 137/80; PULSE 75; RESP 16; TEMP 36.3; O2SAT 95
--- NOTE | 2023-05-28 14:03 | HO.PM.IMPN ---
Subjective Subjective Date of Service: 05/28/23 Interval History: Seen and evaluated improving pain and burning, better today having diarrhea with no abd pain denies any fever or chills No other overnight events Review of Systems Review of Systems: Yes all other systems are reviewed and are negative Physical Exam Vital Signs: Vital Signs: Last Vital Signs Temp 97.3 F 05/28/23 12:00 Pulse 75 05/28/23 12:00 Resp 16 05/28/23 12:00 BP 137/80 05/28/23 12:00 Pulse Ox 95 05/28/23 12:00 O2 Del Method Room Air 05/28/23 12:00 BMI result Body Mass Index 40.6 Const: Other: Constitutional : Awake, interactive, not in distress Neck : Normal inspection, Supple Cardiovascular : RRR, no JVP, no lower extremity edema Respiratory : good bilateral air entry, no crackles, wheezes or rhonchi Gastrointestinal: soft, lax, Normal bowel sounds, Non tender Skin : Warm, Dry, Bilateral lower extremities multiple open wounds, erythema and tenderness covered with dressing Neurological : Alert & oriented x3, No focal deficit Objective Data Active Medications Acetaminophen (Acetaminophen 325 Mg Tablet) 975 mg PO TIDWM [facility] Last Admin: 05/28/23 12:18 Dose: 975 mg Documented By: TYREE Alprazolam (Alprazolam 0.5 Mg Tablet) 0.5 mg PO BEDTIME [facility] Last Admin: 05/27/23 21:14 Dose: 0.5 mg Documented By: NIKI Apixaban (Apixaban 5 Mg Tablet) 5 mg PO BID [facility] Last Admin: 05/28/23 07:57 Dose: 5 mg Documented By: TYREE Atorvastatin Calcium (Atorvastatin Calcium 40 Mg Tablet) 40 mg PO BEDTIME [facility] Last Admin: 05/27/23 21:14 Dose: 40 mg Documented By: NIKI Dextrose (Dextrose 50 % 25 Gm/50 Ml Syringe) 25 gm IVPUSH Q15M PRN; Protocol PRN Reason: per Hypoglycemia Standing Ord. Diphenhydramine HCl (Diphenhydramine Hcl 25 Mg Capsule) 25 mg PO Q4H PRN PRN Reason: Itching Last Admin: 05/26/23 22:05 Dose: 25 mg Documented By: ADRIANA Duloxetine HCl (Duloxetine Hcl 20 Mg Capsule.) 20 mg PO DAILY [facility] Last Admin: 05/28/23 07:57 Dose: 20 mg Documented By: TYREE Empagliflozin (Empagliflozin 25 Mg Tablet) 25 mg PO DAILY [facility] Last Admin: 05/28/23 07:57 Dose: 25 mg Documented By: TYREE Gabapentin (Gabapentin 300 Mg Capsule) 600 mg PO QID [facility] Last Admin: 05/28/23 12:17 Dose: 600 mg Documented By: TYREE Glucose (Glucose Gel 15 Gm Gel..Gram.) 15 gm PO Q15M PRN; Protocol PRN Reason: per Hypoglycemia Standing Ord. Piperacillin Sod/Tazobactam (Sod 4.5 gm/ Sodium Chloride) 100 mls @ 200 mls/hr IV Q6H [facility] Last Infusion: 05/28/23 10:38 Dose: Infused Documented By: TYREE Vancomycin HCl 1,250 mg/ (Sodium Chloride) 250 mls @ 166.667 mls/hr IV Q12H [facility] Last Infusion: 05/28/23 09:36 Dose: Infused Documented By: TYREE Insulin Glargine (Insulin Glargine,Hum.Rec.Anlog 100 Unit/Ml 10 Ml Vial) 35 unit SUBCUT BID [facility] Last Admin: 05/28/23 07:56 Dose: 35 unit Documented By: TYREE Insulin Human Lispro (Insulin Lispro 100 Unit/Ml 3 Ml Vial) 0 unit SUBCUT QIDACHS [facility]; Protocol Last Admin: 05/28/23 11:25 Dose: 2 unit Documented By: TYREE Lactic Acid (Ammonium Lactate 12 % Lotion 226 Gm Bottle) 1 appl TOPICAL BID [facility]; Protocol Last Admin: 05/28/23 08:12 Dose: 1 appl Documented By: TYREE Loperamide HCl (Loperamide Hcl 2 Mg Capsule) 2 mg PO Q4H PRN PRN Reason: Diarrhea Last Admin: 05/28/23 11:26 Dose: 2 mg Documented By: TYREE Melatonin (Melatonin 3 Mg Tablet) 6 mg PO BEDTIME PRN PRN Reason: Insomnia Metformin HCl (Metformin Hcl 500 Mg Tablet) 500 mg PO BIDWM [facility] Last Admin: 05/28/23 07:57 Dose: 500 mg Documented By: TYREE Methadone HCl (Methadone Hcl 20 Mg/2 Ml Oral.Conc) 135 mg PO DAILY [facility] Last Admin: 05/28/23 07:57 Dose: 135 mg Documented By: TYREE Morphine Sulfate (Morphine Sulfate 4 Mg/Ml Cartridge) 2 mg IVPUSH Q4H PRN; Protocol PRN Reason: Pain, Severe (Pain Scale 7-10) Last Admin: 05/28/23 10:35 Dose: 2 mg Documented By: TYREE Nicotine (Nicotine 21 Mg Patch.Td24) 21 mg TRANSDERMA DAILY [facility] Last Admin: 05/28/23 07:59 Dose: 21 mg Documented By: TYREE Ondansetron HCl (Ondansetron Hcl 4 Mg/2 Ml Vial) 4 mg IVPUSH Q8H PRN PRN Reason: Nausea and Vomiting Last Admin: 05/25/23 06:43 Dose: 4 mg Documented By: COLT Oxycodone HCl (Oxycodone Hcl Immed Release 5 Mg Tablet) 5 mg PO Q6H PRN PRN Reason: Pain, Severe (Pain Scale 7-10) Last Admin: 05/28/23 12:24 Dose: 5 mg Documented By: TYREE Pharmacy Consult (Consult Rx Vancomycin Dosing) 1 each MISCELLANE DAILY PRN PRN Reason: Consult order Sodium Chloride (0.9 % Sodium Chloride Flush 3 Ml Syringe) 3 ml IVFLUSH QSHIFT [facility] Last Admin: 05/28/23 07:58 Dose: 3 ml Documented By: TYREE Labs 05/28/23 09:43 05/28/23 05:52 Labs: Laboratory Results - last 24 hr 05/27/23 05/27/23 05/28/23 16:16 20:15 05:52 MCV MCH MCHC RDW Plt Count MPV Absolute Nucleated RBC Nucleated RBC % (auto) Anion Gap 17 Estim Creat Clear Calc 91.5 Estimated GFR > 60 POC Glucose 181 H 227 H Random Glucose 159 H Calcium 9.8 Random Vancomycin 15.7 05/28/23 05/28/23 05/28/23 07:09 09:43 11:08 MCV 92.4 MCH 29.2 MCHC 31.6 RDW 14.4 Plt Count 431 H MPV 9.6 Absolute Nucleated RBC 0.000 Nucleated RBC % (auto) 0.0 Anion Gap Estim Creat Clear Calc Estimated GFR POC Glucose 170 H 200 H Random Glucose Calcium Random Vancomycin Assessment and Plan (1) Hyperglycemia due to type 2 diabetes mellitus: Status: Acute (2) Sepsis: Status: Acute (3) Toxic metabolic encephalopathy: Status: Acute (4) Bilateral cellulitis of lower leg: Status: Acute Plan Pt is a -year-old female with a PMH significant for?peripheral artery disease, insulin-dependent type 2 diabetes, he osteomyelitis s/p right transmetatarsal amputation, hx of NSTEMI, polysubstance use disorder, hx of bilateral pulmonary embolism on lifelong anticoagulation with Eliquis, chronic opiate dependence on methadone, and recent admission for bilateral lower extremity cellulitis with chronic right lower extremity wound who presents to the ED with?altered mental status after snorting gabapentin. Pt will be admitted to the hospital for treatment and further evaluation of bilateral lower leg cellulitis with chronic wounds. #Bilateral lower leg extremity cellulitis with chronic and new superficial wounds secondary to uncontrolled diabetes type 2 IV antibiotics: Vanco and Zosyn, started 05/24/2023 Benadryl for pruritus Tylenol, Duloxitine added for pain Morphine PRN General surgery consult- no acute surgical issues. 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 intake Patient received IVF in ED Follow BMP # Diarrhea antibiotics related, no fever or abd pain to suspect CDiff monitor if needed Imodium prn # PAD Continue statin HTN Continue lisinopril Hx of bilateral PE Continue Eliquis DVT prophylaxis Eliquis Patient requires ongoing inpatient stay for management of extensive cellulitis of the bilateral lower legs in patient with uncontrolled diabetes with diabetic ulceration requiring IV antibiotics Time Spent With Patient Time: Total time managing care of this patient today ____ minutes. Quality Stroke Does the patient have a stroke diagnosis?: No VTE Prior VTE?: No VTE Risk Level:: Medical - moderate - high VTE Device Contraindication: Treatment Not Indicated VTE Drug Contraindication: N/A - Med Ordered
[2023-05-28 15:59] VITALS: BP 143/80; PULSE 73; RESP 18; TEMP 36.4; O2SAT 95
[2023-05-28 16:19] LABS: Glucose, Whole Blood 200 mg/dL (60-115)
[2023-05-28] MEDS: vancomycin HCL 1,250 MG in 0.9 % Sodium Chloride 250 ML 166.67 MG IV (19:15)
[2023-05-28 19:50] VITALS: BP 132/64; PULSE 72; RESP 18; TEMP 36.2; O2SAT 96
[2023-05-28] MEDS: ALPRAZolam 0.5 MG TABLET PO (19:59)
[2023-05-28] MEDS: Atorvastatin Calcium 40 MG TABLET PO (20:00)
[2023-05-28 20:40] LABS: Glucose, Whole Blood 236 mg/dL (60-115)
[2023-05-28] MEDS: Melatonin 3 MG TABLET 6 MG PO (20:53)
[2023-05-28] MEDS: diphenhydrAMINE HCL 25 MG CAPSULE PO (20:53)
[2023-05-28 23:59] VITALS: BP 172/81; PULSE 72; RESP 18; TEMP 36.4; O2SAT 97
[2023-05-29] MEDS: oxyCODONE HCl Immed Release 5 MG TABLET PO ×3 (00:01→13:32)
[2023-05-29] MEDS: Morphine Sulfate 4 MG/ML CARTRIDGE 2 MG IVPUSH ×3 (01:50→10:32)
[2023-05-29] MEDS: Piperacillin Sodium/Tazobactam 4.5 GM in 0.9 % Sodium Chloride 100 ML IV ×2 (03:33→11:11)
[2023-05-29 04:00] VITALS: BP 141/75; PULSE 61; O2SAT 98
[2023-05-29 06:39] LABS: Creatinine Clr Calc Pharmacy 93.7; Estimated Glomerular Filt Rate > 60
[2023-05-29 07:26] VITALS: BP 159/71; PULSE 67; RESP 18; TEMP 36.8; O2SAT 97
[2023-05-29 07:30] LABS: Glucose, Whole Blood 160 mg/dL (60-115)
[2023-05-29] MEDS: Acetaminophen 325 MG TABLET 975 MG PO ×2 (08:01→12:10)
[2023-05-29] MEDS: DULoxetine HCl 20 MG CAPSULE.DR PO (08:02)
[2023-05-29] MEDS: Apixaban 5 MG TABLET PO (08:02)
[2023-05-29] MEDS: Gabapentin 300 MG CAPSULE 600 MG PO ×2 (08:02→12:10)
[2023-05-29] MEDS: Loperamide HCl 2 MG CAPSULE PO (08:02)
[2023-05-29] MEDS: metFORMIN HCl 500 MG TABLET PO (08:02)
[2023-05-29] MEDS: Empagliflozin 25 MG TABLET PO (08:02)
[2023-05-29] MEDS: Insulin Glargine,Hum.rec.anlog 100 UNIT/ML 10 ML VIAL 35 UNIT SUBCUT (08:03)
[2023-05-29] MEDS: Nicotine 21 MG PATCH.TD24 TRANSDERMA (08:03)
[2023-05-29] MEDS: methADONE HCl 20 MG/2 ML ORAL.CONC 135 MG PO (08:04)
[2023-05-29] MEDS: Insulin Lispro 100 UNIT/ML 3 ML VIAL SUBCUT ×2 (08:04→12:11)
[2023-05-29] MEDS: vancomycin HCL 1,250 MG in 0.9 % Sodium Chloride 250 ML 166.67 MG IV (09:23)
[2023-05-29] MEDS: 0.9 % Sodium Chloride Flush 3 ML SYRINGE IVFLUSH (09:26)
--- NOTE | 2023-05-29 10:55 | MHC.CM.PN ---
Patient is discharged to home today. [facility] [place] hours though [place], will resume. Patient has been referred to the [facility] wound center. She has has been provided the Contact info for [facility] Partial hospitalization program. She has been instructed to call intake to schedule an appointment for intake. A Last dose letter has been given to the patient for her community dispensary. Brochures for [facility] and [facility] Wound clinic were also provided. 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
[2023-05-29 12:00] VITALS: BP 139/82; PULSE 76; RESP 18; TEMP 36.9; O2SAT 97
[2023-05-29 12:05] LABS: Glucose, Whole Blood 205 mg/dL (60-115)
--- NOTE | 2023-05-29 12:14 | P.DS_ITS ---
DS: Providers Provider Date of Service: 05/29/23 Date of admission: 05/24/23 20:46 Primary care physician: Nikhil Potts MD Consults: 05/24/23 21:39 Addiction Medicine Routine Consulting Provider: Addiction Covering Reason for consultation: susbstance use disorder 05/24/23 21:40 Consult to General Surgery Routine Consulting Provider: [facility] General Surgeons Reason for consultation: non healing wounds DS: Diagnosis Discharge Diagnosis (1) Hyperglycemia due to type 2 diabetes mellitus: Status: Acute (2) Sepsis: Status: Acute (3) Toxic metabolic encephalopathy: Status: Acute (4) Bilateral cellulitis of lower leg: Status: Acute DS: Summary Hospital Course Hospital Course: Admission note HPI Pt is a -year-old female with a PMH significant for?peripheral artery disease, insulin-dependent type 2 diabetes, he osteomyelitis s/p right transmetatarsal amputation, hx of NSTEMI, polysubstance use disorder, hx of bilateral pulmonary embolism on lifelong anticoagulation with Eliquis, chronic opiate dependence on methadone, and recent admission for bilateral lower extremity cellulitis with chronic right lower extremity wound who presents to the ED with?altered mental status after snorting gabapentin. Patient with recent hospitalization on 04/24- 04/27/2023 where she was treated for bilateral lower leg cellulitis with chronic wounds. Patient states she has continued lower leg pain bilaterally since discharge, worsening the past few days. States pain was so uncontrollable this morning that she decided to start gabapentin so that she could get ?immediate? relief from pain. Apparently her children found her in the bathroom and called EMS who administered 4 mg of intranasal Narcan where she became increasingly more responsive. Patient notes her right leg ulcer has improved, though she has had clear serosanguineous drainage from new wound on left lower leg. Patient has not yet followed with wound care, claims she has an appointment set for sometime next week. Patient also reports going to her PCP on last Monday who said she did not need any antibiotics and sent her home. Patient complains of excruciating, unbearable pain in her lower legs. Denies chest pain/pressure, palpitations. No shortness of breath. Denies fever, chills, abdominal pain. Has had some nausea secondary to pain, no vomiting. In the ED patient was afebrile but tachycardic up to 115, hypertensive up to 182/79, and satting at 94% on RA. Labs were significant for leukocytosis of 18.0, sodium 134, BUN 20, creatinine 1.24 (up from baseline of 0.80), random glucose 432, and lactic acid 2.8. X-ray of right foot showed no acute osseous abnormality but showed soft tissue swelling with apparent ulceration along the distal soft tissues. X-ray of left tibia showed no acute osseous abnormality but showed soft tissue swelling with soft tissue calcification, and tricompartmental knee degenerative change and mild ankle degenerative change. X-ray of right tibia and fibula showed no acute osseous abnormality but showed soft tissue swelling with anterior soft tissue/venous calcification with mild tricompartmental knee degenerative change. Pt was treated with 10 units of insulin, ceftriaxone, IVF, vancomycin, and acetaminophen. Pt will be admitted to the hospital for treatment and further evaluation of bilateral lower leg cellulitis with chronic wounds. Hospital course #Bilateral lower leg extremity cellulitis with chronic and new superficial wounds secondary to uncontrolled diabetes type 2 that was treated with Vanco and Zosyn as cultures remained negative, started 05/24/2023 with usage of Benadryl for pruritus. Tylenol, Duloxitine added for pain. Morphine PRN. General surgery evaluated the patient and found no acute surgical issues. Recommends local wound care and outpt follow up with wound care. # Acute toxic metabolic encephalopathy likely secondary to snorting gabapentin. Improved at baseline. Addition medicine consulted. # Hyperglycemia/insulin-dependent diabetes type 2 with HbA1c of 10. Treated with Lantus and Humalog insulin. restarted metformin and Jardiance with fair control. To be followed as outpatient. # BERNABE resolved. Presented with Creatinine 1.24 that improved to 0.81 Likely secondary to dehydration from reduced p.o. intake. Plan: Continue antibiotics as prescribed Start Duloxetine for pain management Increase Gabapentin to 600 QID Wound care follow up Time Spent with Patient Time attestation: Total time managing care of this patient today ____ minutes. Discharge coordination time: Greater than 30 minutes Quality: Safe Use of Opioids Does Pt have an Active Cancer Diagnosis on the Problem List?: No Quality: Stroke Does the patient have a stroke diagnosis?: No Physical Exam Vital Signs: Vital Signs: Last Vital Signs Temp 98.5 F 05/29/23 12:00 Pulse 76 05/29/23 12:00 Resp 18 05/29/23 12:00 BP 139/82 05/29/23 12:00 Pulse Ox 97 05/29/23 12:00 O2 Del Method Room Air 05/29/23 12:00 BMI result Body Mass Index 40.6 Const: Other: Constitutional : Awake, interactive, not in distress Neck : Normal inspection, Supple Cardiovascular : RRR, no JVP, no lower extremity edema Respiratory : good bilateral air entry, no crackles, wheezes or rhonchi Gastrointestinal: soft, lax, Normal bowel sounds, Non tender Skin : Warm, Dry, Bilateral lower extremities open wounds with less erythema and tenderness covered with dressing Neurological : Alert & oriented x3, No focal deficit DS: Data Data Completed and Pending Completed studies during hospitalization [Text1]: Procedures Detachment at Right 1st Toe, Mid, Open Approach (09/21/21) Detachment at Right 2nd Toe, Mid, Open Approach (09/21/21) Excision of Right Foot Subcutaneous Tissue and Fascia, Open Approach (09/21/21) Excision of Right Lower Leg Skin, External Approach (04/24/23) Insertion of Infusion Device into Left External Jugular Vein, Percutaneous Approach (09/21/21) Insertion of Infusion Device into Superior Vena Cava, Percutaneous Approach (09/21/21) Labs on day of discharge: Laboratory Results - last 24 hr 05/28/23 05/28/23 05/29/23 16:15 20:23 05:44 Hold Purple Top Creatinine 0.81 Estim Creat Clear Calc 93.7 Estimated GFR > 60 POC Glucose 200 H 236 H 05/29/23 05/29/23 05/29/23 06:09 07:24 11:57 Hold Purple Top SEE NOTE Creatinine Estim Creat Clear Calc Estimated GFR POC Glucose 160 H 205 H Preliminary micro results at discharge 05/24/23 18:27 Blood Culture - Preliminary Blood - Venous No growth after 48 hours. 05/24/23 18:11 Blood Culture - Preliminary Blood - Venous No growth after 48 hours. Imaging Chest x-ray: Radiologist's impression: ITS Impressions Foot X-Ray 05/24/23 19:08 IMPRESSION: No acute osseous abnormality. Soft tissue swelling with apparent ulceration along the distal soft tissues. Tibia/Fibula X-Ray 05/24/23 19:08 IMPRESSION: No acute osseous abnormality. Soft tissue swelling about the tib-fib with soft tissue calcification. Tricompartmental knee degenerative change. Mild ankle degenerative change. Tibia/Fibula X-Ray 05/24/23 19:08 IMPRESSION: No acute osseous abnormality. Soft tissue swelling about the tib-fib with anterior soft tissue/venous calcification. Mild tricompartmental knee degenerative change. Discharge Plan Discharge Anticipated Discharge Date/Time: 05/29/23 12:10 Patient Disposition: Home, Self-Care Discharge Diagnosis: Cellulitis Referrals: [facility] Partial Hospitalization Program [Other] - 1 Week (Call to make an intake appointment. [phone]) [facility] Wound Care [Outside] - 1 Week Nikhil Gagnon MD [Primary Care Provider] - 1 Week Discharge Medications: New ammonium lactate 12 % Lotion 1 appl topical BID Qty: 225 1RF Protocol: Apply to: Apply to: Bilateral lower extremities loperamide 2 mg Capsule 2 mg PO Q4H PRN (Reason: Diarrhea) Qty: 20 0RF oxycodone 5 mg Tablet 5 mg PO Q6H PRN (Reason: Pain, Severe (Pain Scale 7-10)) Qty: 14 0RF Rx Instructions: Partial Fill upon patient request. duloxetine 20 mg Capsule,Delayed Release(Dr/Ec) 20 mg PO DAILY Qty: 30 0RF amoxicillin-pot clavulanate 875-125 mg tablet 1 tab PO BID Qty: 8 0RF doxycycline monohydrate 100 mg capsule 100 mg PO BID Qty: 8 0RF gabapentin 300 mg Capsule 600 mg PO QID Qty: 240 0RF Continued lisinopril 5 mg Tablet 5 mg PO DAILY Qty: 30 0RF Protocol: Hold for SBP< HOLD for SBP < : 90 (TR) shira [facility] See Rx Instructions .Route Qty: 1 0RF Rx Instructions: As directed acetaminophen 500 mg tablet 2 caplet PO Q6H PRN (Reason: mild pain) methadone 10 mg/mL concentrate 135 mg PO DAILY metformin 500 mg Tablet 500 mg PO BIDWM 30 Days Qty: 60 0RF Eliquis 5 mg tablet 5 mg PO BID 30 Days Qty: 60 0RF nicotine 21 mg/24 hr Patch 24 Hour 21 mg transdermal DAILY Qty: 14 0RF alprazolam 0.5 mg tablet 0.5 mg PO BEDTIME Qty: 10 0RF Jardiance 25 mg tablet 25 mg PO DAILY atorvastatin 40 mg tablet 40 mg PO BEDTIME insulin glargine [Lantus Solostar U-100 Insulin] 100 unit/mL (3 mL) insulin pen 35 unit subcut BID Discontinued gabapentin 400 mg capsule 400 mg PO QID Discharge Orders: Discharge Order (Routine); Ordered 05/29/23 Ordered By: Sesar Painting Diet: Advance to usual diet Activity on Discharge: As tolerated Stand Alone Forms: Patient Portal Discharge page Care Plan Goals: Read below Health Concerns: Read below Plan of Treatment: Read below Assessment: Continue antibiotics as prescribed Start Duloxetine for pain management Increase Gabapentin to 600 QID Wound care follow up Discharge Date/Time: 05/29/23 14:00
== END 2023-05-29 14:00 | disposition home or self-care (01) | DRG 812 ==
LOC: HO.ED 17:57 → HO.EDOVER 21:12 → HO.S3 05-25 20:11
PROVIDERS: Nurse Practitioner Family; Physician Assistant; Admitting Provider Student in an Organized Health Care Education/Training Program; Emergency Provider Emergency Medicine; PCP Internal Medicine; Visit Provider Student in an Organized Health Care Education/Training Program
DX: T42.6X1A Poisoning by other antiepileptic and sedative-hypnotic drugs, accidental (unintentional), initial encounter (principal); A41.9 Sepsis, unspecified organism; G92.8 Other toxic encephalopathy; L03.115 Cellulitis of right lower limb; L97.819 Non-pressure chronic ulcer of other part of right lower leg with unspecified severity; K52.1 Toxic gastroenteritis and colitis; L03.116 Cellulitis of left lower limb; N17.9 Acute kidney failure, unspecified; L97.829 Non-pressure chronic ulcer of other part of left lower leg with unspecified severity; E11.65 Type 2 diabetes mellitus with hyperglycemia; E11.628 Type 2 diabetes mellitus with other skin complications; E86.0 Dehydration; F17.210 Nicotine dependence, cigarettes, uncomplicated; Z71.6 Tobacco abuse counseling; E66.01 Morbid (severe) obesity due to excess calories; T36.95XA Adverse effect of unspecified systemic antibiotic, initial encounter; Z68.41 Body mass index [BMI] 40.0-44.9, adult; E11.51 Type 2 diabetes mellitus with diabetic peripheral angiopathy without gangrene; E11.622 Type 2 diabetes mellitus with other skin ulcer; F11.20 Opioid dependence, uncomplicated; Z86.711 Personal history of pulmonary embolism; Z79.4 Long term (current) use of insulin; Z79.01 Long term (current) use of anticoagulants; Z79.84 Long term (current) use of oral hypoglycemic drugs; Z79.899 Other long term (current) drug therapy
CPT/HCPCS: 36415; 73590; 73630; 80048; 80053; 80202; 82010; 82565; 82947; 83036; 83605; 85025; 85027; 87040; 93005; 99285; J0696; J2060; J2270; J2405; J2543; J3370; J3371

== ENCOUNTER → 2023-05-24 20:46 | Outpatient (BNV) | payer MEDICAID, SELFPAY | PROVIDERS: Admitting Provider Student in an Organized Health Care Education/Training Program; Emergency Provider Emergency Medicine; PCP Internal Medicine; Visit Provider Student in an Organized Health Care Education/Training Program | DX: E11.65 Type 2 diabetes mellitus with hyperglycemia (principal); A41.9 Sepsis, unspecified organism; G92.8 Other toxic encephalopathy; L03.116 Cellulitis of left lower limb; L03.115 Cellulitis of right lower limb | CPT/HCPCS: 99223; 99232; 99233; 99239 ==

== ENCOUNTER → 2023-05-24 20:46 | Outpatient (BNV) | payer OTHER, SELFPAY | PROVIDERS: Admitting Provider Student in an Organized Health Care Education/Training Program; Emergency Provider Emergency Medicine; PCP Internal Medicine; Visit Provider Nurse Practitioner Psychiatric/Mental Health | DX: F19.10 Other psychoactive substance abuse, uncomplicated (principal); F11.20 Opioid dependence, uncomplicated | CPT/HCPCS: 99499 ==

== ENCOUNTER → 2023-05-24 20:46 | Outpatient (BNV) | payer MEDICAID, SELFPAY | PROVIDERS: Admitting Provider Student in an Organized Health Care Education/Training Program; Emergency Provider Emergency Medicine; PCP Internal Medicine; Visit Provider Surgery | DX: L03.116 Cellulitis of left lower limb (principal); L03.115 Cellulitis of right lower limb | CPT/HCPCS: 99221 ==

== ENCOUNTER 2023-06-26 13:21 | Outpatient (RCR) | payer MEDICAID, SELFPAY | END 2024-01-04 12:13 | disposition left against medical advice (07) | LOC: HO.WCC 13:21 | PROVIDERS: Visit Provider Surgery | DX: E11.621 Type 2 diabetes mellitus with foot ulcer (principal); L97.522 Non-pressure chronic ulcer of other part of left foot with fat layer exposed; L97.512 Non-pressure chronic ulcer of other part of right foot with fat layer exposed; E11.622 Type 2 diabetes mellitus with other skin ulcer; I87.311 Chronic venous hypertension (idiopathic) with ulcer of right lower extremity; L97.812 Non-pressure chronic ulcer of other part of right lower leg with fat layer exposed; S81.802D Unspecified open wound, left lower leg, subsequent encounter; T87.81 Dehiscence of amputation stump; L03.115 Cellulitis of right lower limb; E11.40 Type 2 diabetes mellitus with diabetic neuropathy, unspecified; F11.20 Opioid dependence, uncomplicated; F17.210 Nicotine dependence, cigarettes, uncomplicated; Z92.3 Personal history of irradiation; Z79.4 Long term (current) use of insulin; Z79.84 Long term (current) use of oral hypoglycemic drugs; Z79.01 Long term (current) use of anticoagulants; Z79.2 Long term (current) use of antibiotics; Z86.718 Personal history of other venous thrombosis and embolism; Z89.421 Acquired absence of other right toe(s) | CPT/HCPCS: 11042; 11045 ==

== ENCOUNTER 2024-02-26 09:04 | Inpatient (IN) | payer MEDICAID, SELFPAY ==
[2024-02-26] VITALS (14 sets, daily range): BP systolic 170–188; BP diastolic 76–92; PULSE 86–104; RESP 11–21; TEMP 36.4–37; O2SAT 95–100; BMI 35.0; BMI 35.4
--- NOTE | ~2024-02-26 | XR_ITS ---
EXAMINATION: CHEST, RIGHT KNEE, LEFT FOOT CLINICAL INFORMATION: Shortness of breath with right knee amputation and left foot films COMPARISON: Left foot 10/11/2021, right tib-fib 05/24/2023, chest radiograph 04/24/2023 CT angiogram chest 08/25/2022 TECHNIQUE: Single view chest, 2 views right knee, 3 views left foot FINDINGS: Chest: Lungs are hypoinflated. Again seen are changes related to a right diaphragmatic hernia. No acute consolidations or large pleural effusions are seen. Right knee: Degenerative changes are present in the knee. There is a below the knee amputation. There is soft tissue swelling of the stomach but no bony destructive changes are seen. No acute fractures. Phleboliths and surgical clips are present. Left foot: Soft tissue swelling is seen overlying the first and second distal to this, increased when compared to prior. Destructive changes are seen at the distal end of the distal phalanges of the first and second toe. In the first toe, on the 2021 study, the changes appeared more acute and now the bone is fairly well corticated. There is no evidence of osteomyelitis at the time. There appears to be a chronic fracture of the distal fifth metacarpal head, new when compared to October 2021 study. Moderate degenerative changes are seen elsewhere throughout the foot and ankle. XR/XR foot LT 2V IMPRESSION: 1. No acute intrathoracic disease. 2. Right below the knee amputation with soft tissue swelling but no acute osseous abnormality. 3. Soft tissue swelling overlying the first and second toes with chronic appearing destructive changes in the distal phalanges of the first and second toes. No evidence of osteomyelitis at this time. 4. Chronic fracture distal fifth metacarpal head, new when compared to 10/11/2021.
--- NOTE | ~2024-02-26 | XR_ITS ---
EXAMINATION: CHEST, RIGHT KNEE, LEFT FOOT CLINICAL INFORMATION: Shortness of breath with right knee amputation and left foot films COMPARISON: Left foot 10/11/2021, right tib-fib 05/24/2023, chest radiograph 04/24/2023 CT angiogram chest 08/25/2022 TECHNIQUE: Single view chest, 2 views right knee, 3 views left foot FINDINGS: Chest: Lungs are hypoinflated. Again seen are changes related to a right diaphragmatic hernia. No acute consolidations or large pleural effusions are seen. Right knee: Degenerative changes are present in the knee. There is a below the knee amputation. There is soft tissue swelling of the stomach but no bony destructive changes are seen. No acute fractures. Phleboliths and surgical clips are present. Left foot: Soft tissue swelling is seen overlying the first and second distal to this, increased when compared to prior. Destructive changes are seen at the distal end of the distal phalanges of the first and second toe. In the first toe, on the 2021 study, the changes appeared more acute and now the bone is fairly well corticated. There is no evidence of osteomyelitis at the time. There appears to be a chronic fracture of the distal fifth metacarpal head, new when compared to October 2021 study. Moderate degenerative changes are seen elsewhere throughout the foot and ankle. XR/XR chest 1V IMPRESSION: 1. No acute intrathoracic disease. 2. Right below the knee amputation with soft tissue swelling but no acute osseous abnormality. 3. Soft tissue swelling overlying the first and second toes with chronic appearing destructive changes in the distal phalanges of the first and second toes. No evidence of osteomyelitis at this time. 4. Chronic fracture distal fifth metacarpal head, new when compared to 10/11/2021.
--- NOTE | 2024-02-26 09:23 | ED.GENADULT ---
HPI - General Adult General Chief complaint: General Medical Stated complaint: not well recent amp Time Seen by Provider: 02/26/24 09:16 Source: patient and EMS Mode of arrival: EMS Limitations: other (Poor historian) History of Present Illness ED Provider: Darius QIU HPI narrative: This is a 53-year-old female history of anxiety, obesity, diabetes, IVDA, recent right lower extremity amputation, NSTEMI, MRSA, demand ischemia, presenting with overall feeling unwell she peed herself once last night unclear why or how, but this is why she came in. She states her son was worried. No a/c back pain, trauma, numbness, tingling, bowel changes. Reports some SOB worse than her baseline. Come in on 2L NC for comfort, reprots its helping. Denies fevers, chills, cp, headache, vision changes, dizziness, weaknesss. Poor historian Related Data Home Medications ?Medication ?Instructions ?Recorded ?Confirmed acetaminophen 500 mg tablet 2 caplet PO Q6H PRN mild pain 08/24/22 05/24/23 methadone 10 mg/mL oral concentrate 135 mg PO DAILY 08/24/22 05/25/23 atorvastatin 40 mg tablet 40 mg PO BEDTIME 11/28/22 05/24/23 empagliflozin 25 mg tablet 25 mg PO DAILY 11/28/22 05/24/23 (Jardiance) insulin glargine 100 unit/mL (3 35 unit subcut BID 11/28/22 05/24/23 mL) subcutaneous pen (Lantus Solostar U-100 Insulin) Previous Rx's ?Medication ?Instructions ?Recorded lisinopril 5 mg tablet 5 mg PO DAILY #30 tabs 09/29/21 walker #1 ea 10/04/21 apixaban 5 mg tablet (Eliquis) 5 mg PO BID 30 days #60 tabs 09/03/22 metformin 500 mg tablet 500 mg PO BIDWM 30 days #60 tabs 09/03/22 nicotine 21 mg/24 hr daily 21 mg transdermal DAILY #14 ea 09/04/22 transdermal patch alprazolam 0.5 mg tablet 0.5 mg PO BEDTIME Anxiety #10 tabs 05/29/23 ammonium lactate 12 % lotion 1 appl topical BID #225 grams 05/29/23 amoxicillin 875 mg-potassium 1 tab PO BID #8 tabs 05/29/23 clavulanate 125 mg tablet doxycycline monohydrate 100 mg 100 mg PO BID #8 caps 05/29/23 capsule duloxetine 20 mg capsule,delayed 20 mg PO DAILY #30 caps 05/29/23 release gabapentin 300 mg capsule 600 mg (2 x 300 mg) PO QID #240 05/29/23 caps loperamide 2 mg capsule 2 mg PO Q4H PRN Diarrhea #20 caps 05/29/23 oxycodone 5 mg tablet 5 mg PO Q6H PRN Pain, Severe (Pain 05/29/23 Scale 7-10) #14 tabs Allergies Allergy/AdvReac Type Severity Reaction Status Date / Time prednisone [PREDNISONE] Allergy Unknown RASH Verified 02/26/24 09:29 Review of Systems Review of Systems: Yes all other systems are reviewed and are negative [facility] Past Medical History Attestation statement: The following information was validated with the patient. Source: old records reviewed and nursing notes reviewed Medical History Hyperglycemia due to type 2 diabetes mellitus 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 Diabetic ulcer of lower leg Eschar of lower leg Peripheral arterial disease Pulmonary nodules Chronic respiratory failure Pneumonitis Obesity (BMI 35.0-39.9 without comorbidity) Acute respiratory failure with hypoxia NSTEMI (non-ST elevated myocardial infarction) Opioid use disorder Osteomyelitis Diabetes Anxiety Substance abuse Surgical History S/P amputation of foot Status post transmetatarsal amputation of right foot (09/24/21) Social History Social History Household Members: Children Household Members Other:: son Housing: Apartment Do you presently have visiting nurse or other home services: No Alcohol intake: never Comment: took socks off Patient Tobacco Use Status: Former Tobacco user Tobacco use type: Cigarette Cigarette Packs Per Day: 0 Cigarettes Per Day: 1 Years Smoked: 40 Smoked in Last 30 Days: Yes e-Cigarette/Vaping Use: Currently Using Second Hand Smoke Exposure: No Use of substances other than those prescribed or required for medical reasons: No Substance Use Type: Marijuana Advance Directives: Yes Advance Directives on File: Yes Advance Directives Date on File: 09/22/21 Do you have a plan to hurt others: No Plan Patient : No service: No Current occupational status: unemployed Physical Exam ED Vital Signs: Vital Signs - 24 hr 02/26/24 09:11 02/26/24 09:35 02/26/24 11:52 Temperature 98.6 F 98.6 F 98.2 F Pulse Rate 88 88 94 Respiratory Rate 18 18 11 L Blood Pressure 178/78 H 178/78 H 171/85 H Pulse Oximetry 98 96 Oxygen Delivery Method Room Air Room Air 02/26/24 12:29 Temperature Pulse Rate 95 Respiratory Rate 20 Blood Pressure 185/92 H Pulse Oximetry 96 Oxygen Delivery Method Room Air BMI result Body Mass Index 35.0 vss Appearance: Alert.? Oriented X3.? No acute distress.?Unkempt Head: Normocephalic, atraumatic, no step-offs or deformities Eyes: Pupils equal, round and reactive to light.? Neck: Normal inspection.? Neck supple.? CVS: Normal heart rate and rhythm.? Pulses normal.? Respiratory: No respiratory distress.? Breath sounds normal.? Abdomen: Soft and nontender.? Skin: Skin warm and dry.? Normal skin color.? Normal skin turgor.? Extremities: + right BKA 1+ edema pitting, LLE w/ 1+ pitting edema..? No calf ttp. Global weakness + LLE w/ errythema and warmth from the L garcia down, chronic appearing wounds on latereal aspect of L foot and all toes. RLE w/ BKA, normal distal sensation. Slight errythema to stump distally. Back: No midline tenderness, no C-spine tenderness, full range of motion, no CVA tenderness bilaterally Neuro: Oriented X 3.? No motor deficit.? No sensory deficit. CN 2-12 intact Course Reevaluation(s) Reevaluation #1: Patient very difficult stick. IVs attempted by nursing. Causing delay in labs. Time: 10:19 Reevaluation #2: US guided line obtained, labs obtained. Time: 10:45 Reevaluation #3: CBC with leukocytosis 11.2 and mild left shift. Chemistry with no acute findings requiring intervention elevation of CRP 2.34, BNP 201 mild lower extremity edema on exam 1+ pitting. UA without infection. Toxicology positive for fentanyl, marijuana and methadone. No acute intrathoracic disease on chest x-ray. Right below-knee amputation was soft tissue swelling but no acute osseous abnormality soft tissue swelling overlying the 1st and 2nd toes with chronic appearing destructive changes in the distal phalanges of the 1st and 2nd toes. Time: 13:56 Medications Administered Discontinued Medications Generic Name Dose Route Start Last Admin Trade Name Sanfordq PRN Reason Stop Dose Admin Acetaminophen 975 mg 02/26/24 12:17 02/26/24 12:27 Acetaminophen 325 Mg Tablet PO 02/26/24 12:18 Not Given ONCE ONE Piperacillin Sod/Tazobactam 50 mls @ 100 mls/hr 02/26/24 09:23 02/26/24 12:30 Sod 3.375 gm/ Sodium Chloride IV 02/26/24 09:52 Infused ONCE ONE Infusion Vancomycin HCl 2,000 mg in 500 mls @ 250 mls/hr 02/26/24 09:35 02/26/24 12:24 Vancomycin/Ns IV 02/26/24 11:34 250 mls/hr ONCE ONE Administration Sodium Chloride 3,045 mls @ 3,045 mls/hr 02/26/24 09:41 02/26/24 11:57 Ns 30 ml/kg infuse over 1 hr (3045 ml) 02/26/24 10:40 3,045 mls/hr IV Administration .Q1H STA Morphine Sulfate 4 mg 02/26/24 13:50 02/26/24 13:56 Morphine Sulfate 4 Mg/Ml Cartridge IVPUSH 02/26/24 13:51 4 mg ONCE ONE Administration Protocol Medical Decision Making Medical Decision Making [facility] Narrative: 09 53 yo f presents feeling unwell PE- + LLE w/ errythema and warmth from the L garcia down, chronic appearing wounds on latereal aspect of L foot and all toes. RLE w/ BKA, normal distal sensation. Slight errythema to stump distally. Sepsis alert paged overhead due to patient hx of MRSA will cover w/ zosyn and vanco Hx and pe concerning for cellulitis of LLE ( unlikely necrotizing infection, osteo, arterial or venous occlusion). RLE stump likely mild cellulitis unlikely osteomyelitis. Unlikely arterial or venous occlusion. Will rule out UTI. Unlikely cauda equina, cord compression. Will rule out metabolic derangements and anemia. Unlikely pneumonia however will rule out Plan- labs, imaging, Differential Diagnosis Differential Diagnoses: The differential diagnosis associated with the presentation includes Hx and pe concerning for cellulitis of LLE ( unlikely necrotizing infection, osteo, arterial or venous occlusion). RLE stump likely mild cellulitis unlikely osteomyelitis. Unlikely arterial or venous occlusion. Will rule out UTI. Unlikely cauda equina, cord compression. Will rule out metabolic derangements and anemia. Unlikely pneumonia however will rule out Admission/Observation Consideration of admission/observation: Escalation of care including admission/observation considered Possible Lab Data MDM Lab Attestation statement: I reviewed the patient's lab results. 02/26/24 11:45 02/26/24 11:49 Labs: Lab Results 02/26/24 02/26/24 02/26/24 Range/Units 11:45 11:49 13:25 WBC 11.2 H (4.8-10.8) X10*3/uL RBC 4.49 (4.20-5.50) X10*6/uL Hgb 13.1 (12.0-16.0) g/dl Hct 39.4 (37.0-47.0) % MCV 87.8 (80.0-98.0) fL MCH 29.2 (27.0-33.0) pg MCHC 33.2 (31.0-35.0) g/dl RDW 14.6 (11.0-16.0) % Plt Count 428 H (160-400) X10*3/uL MPV 10.2 (9.4-12.3) fL Immature Gran % (Auto) 0.9 H (0.0-0.4) % Neut % (Auto) 80.9 H (45-73) % Lymph % (Auto) 13.8 L (20-40) % [place] % (Auto) 3.9 (2-11) % Eos % (Auto) 0.1 (0-4) % Baso % (Auto) 0.4 (0-2) % Lymph # (Auto) 1.5 (1.2-4.9) X10*3/uL [place] # (Auto) 0.4 (0.1-1.2) X10*3/uL Eos # (Auto) 0.0 (0.0-0.4) X10*3/uL Baso # (Auto) 0.1 (0.0-0.2) X10*3/uL Abs Immat Gran (auto) 0.10 H (0.00-0.03) X10*3/uL Absolute Neuts (auto) 9.0 H (2.0-8.3) x10*3/uL Absolute Nucleated RBC 0.000 (0.0-0.012) X10*3/uL Nucleated RBC % (auto) 0.0 (0.0-0.2) /100WBC ESR 40 H (0-20) MM/HR PT 15.3 H D (11.1-13.3) SEC INR 1.3 H (0.9-1.1) Sodium 138 (135-145) mmol/L Potassium 4.3 (3.3-5.1) mmol/L Chloride 98 (96-108) mmol/L Carbon Dioxide 24 (22-29) mmol/L Anion Gap 20 (12-20) BUN 10 (9-16) mg/dL Creatinine 0.72 (0.5-1.4) mg/dL Estim Creat Clear Calc 110.6 Estimated GFR > 60 Random Glucose 177 H (60-115) mg/dL Lactic Acid 1.3 (0.5-2.0) mmol/L Calcium 9.8 (8.4-10.2) mg/dL Magnesium 1.9 (1.6-2.6) mg/dL Total Bilirubin 0.5 (0.0-1.0) mg/dL AST 14 (5-31) U/L ALT 12 (0-31) U/L Alkaline Phosphatase 116 (39-117) U/L C-Reactive Protein 2.34 H (< or = 0.50) mg/dL B-Natriuretic Peptide 201 H (<100) pg/mL Total Protein 8.1 H (6.5-8.0) g/dL Albumin 4.3 (3.5-5.0) g/dL Urine Color Yellow Urine Appearance Clear Urine pH 7.0 (5.0-9.0) Ur Specific [place] 1.020 (1.005-1.025) Urine Protein 30 (1+) H (Neg-Trace) mg/dL Urine Glucose (UA) >=1000 H (Negative) mg/dL Urine Ketones >=160 (Negative) mg/dL Urine Blood Negative (Negative) Urine Nitrite Negative (Negative) Ur Leukocyte Esterase Negative (Negative) Urine RBC 0-2 (0-2) /HPF Urine WBC 0-5 (0-5) /HPF Ur Squamous Epith Cells 6-10 (0-2) /HPF Urine Bacteria Trace (None Seen) Hyaline Casts 0-2 (0-2) /LPF Urine Yeast Present Urine Opiates Screen Not Detected (Not Detect) Ur Buprenorphine Scrn Not Detected (Not Detect) ng/mL Ur Oxycodone Screen Not Detected (Not Detect) ng/mL Urine Methadone Screen Positive H (Not Detect) ng/mL Urine Fentanyl Screen POSITIVE H (Not Detect) Ur Barbiturates Screen Not Detected (Not Detect) Ur Phencyclidine Scrn Not Detected (Not Detect) Ur Amphetamines Screen Not Detected (Not Detect) U Benzodiazepines Scrn Not Detected (Not Detect) Urine Cocaine Screen Not Detected (Not Detect) U Marijuana (THC) Screen POSITIVE H (Not Detect) Independent Interpretation I performed an independent interpretation of an: Plain X-Ray and CT Scan Radiology Impression Discussion of test interpretation with radiology: I have reviewed the radiologist's reading. External Record Review External record reviewed: Inpatient record, Office record, Outpatient record, Prior outpatient labs, Prior outpatient radiology, Primary care record and Outside ED record Critical Care Time Critical Care Time Critical Care Time: Yes Total Critical Care Time: 35 Attestation: I attest to this time spent taking care of the patient, obtaining history, physical, reviewing labs, imaging, speaking to my attending, specialist or hospitalist. Discharge Plan Discharge Clinical Impression: Cellulitis Patient Disposition: Admitted As Inpatient Print Language: Tuvaluan
--- NOTE | 2024-02-26 10:13 | PC.NURSE ---
Unable to place an IV. Provider notified that we will need an US guided placement.
--- NOTE | 2024-02-26 10:28 | PC.NURSE ---
provider called to have midline placed. Unable to gain IV access and labs are not able to be drawn at this time.
--- NOTE | 2024-02-26 11:23 | PC.NURSE ---
Artur from ICU setting up to attempting place ultrasound guided IV at this time
--- NOTE | 2024-02-26 11:42 | PC.NURSE ---
Artur from ICU unsuccessful, Dr Cha at this time attempting with ultrasound
--- NOTE | 2024-02-26 11:48 | ECG_ITS ---
Test Reason : SEPSIS Blood Pressure : / mmHG Vent. Rate : 098 BPM Atrial Rate : 098 BPM P-R Int : 170 ms QRS Dur : 090 ms QT Int : 390 ms P-R-T Axes : 051 -14 067 degrees QTc Int : 497 ms Normal sinus rhythm Nonspecific ST and T wave abnormality Prolonged QT Abnormal ECG When compared with ECG of 26-FEB-2024 10:02, No significant changes seen Referred By: Neeraj Gil Electronically Signed By:FELIPA LUNDBERG
[2024-02-26] MEDS: Piperacillin Sodium/Tazobactam 3.375 GM in 0.9 % Sodium Chloride 50 ML IV ×3 (12:04→22:17)
[2024-02-26 12:05] LABS: INTERNATIONAL NORM RATIO 1.3 (0.9-1.1); Prothrombin Time 15.3 SEC (11.1-13.3)
--- NOTE | 2024-02-26 12:07 | PC.NURSE ---
Pt seen by Dr. Cha for IV access and was successful. Blood labs and cultures x2 were obtained and sent to lab. IV fluids started and Zosyn initiated per OCT. Attempt to remove ajith wrap to Pts LLE however Pt refused at this time.
[2024-02-26 12:10] LABS: Lactic Acid 1.3 mmol/L (0.5-2.0)
[2024-02-26 12:14] LABS: Alanine Aminotransferase 12 U/L (0-31); Albumin Level 4.3 g/dL (3.5-5.0); Alkaline Phosphatase 116 U/L (39-117); Anion Gap 20 (12-20); Aspartate Amino Transferase 14 U/L (5-31); Bilirubin Total 0.5 mg/dL (0.0-1.0); Blood Urea Nitrogen 10 mg/dL (9-16); C Reactive Protein 2.34 mg/dL (< or = 0.50); Calcium 9.8 mg/dL (8.4-10.2); Carbon Dioxide 24 mmol/L (22-29); Chloride 98 mmol/L (96-108); Creatinine Clr Calc Pharmacy 110.6; Estimated Glomerular Filt Rate > 60; Glucose Random 177 mg/dL (60-115); Magnesium 1.9 mg/dL (1.6-2.6); Potassium 4.3 mmol/L (3.3-5.1); Sodium 138 mmol/L (135-145); Total Protein 8.1 g/dL (6.5-8.0)
[2024-02-26 12:20] LABS: B Type Natriuretic Peptide 201 pg/mL (<100)
[2024-02-26] MEDS: vancomycin/NS 2,000 MG/500 ML PLAST..BAG 250 MG IV (12:24)
[2024-02-26 12:34] LABS: MANUAL DIFF FLAG NO
[2024-02-26 12:38] LABS: Basophils Absolute Auto 0.1 X10*3/uL (0.0-0.2); Basophils Percent Auto 0.4 % (0-2); Eosinophils Percent Auto 0.1 % (0-4); Hematocrit 39.4 % (37.0-47.0); Hemoglobin 13.1 g/dl (12.0-16.0); Imm Gran Pct Auto 0.9 % (0.0-0.4); Lymphocytes Absolute Auto 1.5 X10*3/uL (1.2-4.9); Lymphocytes Percent Auto 13.8 % (20-40); Mean Corpuscular HGB Conc 33.2 g/dl (31.0-35.0); Mean Corpuscular Hemoglobin 29.2 pg (27.0-33.0); Mean Corpuscular Volume 87.8 fL (80.0-98.0); Mean Platelet Volume 10.2 fL (9.4-12.3); Monocytes Absolute Auto 0.4 X10*3/uL (0.1-1.2); Monocytes Percent Auto 3.9 % (2-11); Neutrophils Percent Auto 80.9 % (45-73); Platelet Count 428 X10*3/uL (160-400); Red Blood Count 4.49 X10*6/uL (4.20-5.50); Red Cell Distribution Width 14.6 % (11.0-16.0); White Blood Count 11.2 X10*3/uL (4.8-10.8)
[2024-02-26 12:49] LABS: Erythrocyte Sedimentation Rate 40 MM/HR (0-20)
[2024-02-26 13:34] LABS: Appearance Urine Clear; Color Urine Yellow; Glucose Urine UA >=1000 mg/dL (Negative); Leukocyte Esterase Urine Negative (Negative); Nitrite Urine Negative (Negative); UMIC TRIGGER UACC YES; Urine Blood Negative (Negative); Urine Ketones >=160 mg/dL (Negative); Urine Protein 30 (1+) mg/dL (Neg-Trace)
[2024-02-26 13:41] LABS: Bacteria Urine Trace (None Seen); Hyaline Casts Urine 0-2 /LPF (0-2); RBC Urine 0-2 /HPF (0-2); WBC Urine 0-5 /HPF (0-5)
[2024-02-26 13:45] LABS: Amphetamine Screen Urine Not Detected (Not Detect); Barbiturates, Urine Not Detected (Not Detect); Benzodiazepines Screen Urine Not Detected (Not Detect); Buprenorphine Scr Not Detected (Not Detect); Cannabinoid Screen Urine POSITIVE (Not Detect); Cocaine Screen Urine Not Detected (Not Detect); Fentanyl, urine POSITIVE (Not Detect); Methadone Screen, Urine Positive (Not Detect); Opiate Screen Urine Not Detected (Not Detect); Oxycodone Screen Urine Not Detected (Not Detect); Phencyclidine Screen Urine Not Detected (Not Detect)
--- NOTE | 2024-02-26 13:47 | PC.NURSE ---
Addendum entered by Zoya Navas 02/26/24 14:21: Pt and son reports coloring to extremities baseline for her Original Note: Pt reports pain persist, provider aware, awaiting orders Son at bedside. Pt is abrasive at times but then apologizes. Purewick in place however leaking and pt cleaned and linens changed. HTN, other vitals stable. NSR on tele. B/L hands noted mottled and discolored. Forehead [address] Fluids and Vanco continue to infuse.
[2024-02-26] MEDS: Morphine Sulfate 4 MG/ML CARTRIDGE IVPUSH (13:56)
--- NOTE | 2024-02-26 14:06 | P.HPHOSP_ITS ---
History of Present Illness Date of Service: 02/26/24 Attending physician on admission: [facility] Chief Complaint: Genearal weakness, malaise, LLE redness and swelling Pt is a 53-year-old female with a PMH significant for?peripheral artery disease, insulin-dependent type 2 diabetes, hx of osteomyelitis s/p right BKA, hx of NSTEMI, polysubstance use disorder, IVDU, hx of bilateral pulmonary embolism on lifelong anticoagulation with Eliquis, hx of MRSA bacteremia, and chronic opiate dependence on methadone who presents to the ED for evaluation left lower extremity redness and swelling, and overall feeling unwell. Patient reports had right BKA in September and was discharged to [facility] where she remained for 4+ months until discharged home one month ago. Reports bilateral extremities were normal and without swelling or erythmea. However, noticed that right lower extremity was turning red and began swelling approximately 3 weeks ago. Patient has recently taken to wrapping lower extremity in Gregorio bandage. Last night patient began feeling ?sick? with lightheadedness, myalgias, and generalized malaise. Patient also was incontinent of urine last night which is abnormal for her and which prompted her visit to the ED today. Denies fever, chills. No nausea, vomiting, abdominal pain. Denies chest pain or pressure. No SOB. In the ED pt was afebrile but with elevated heart rate up to 95, and mildly hypertensive up to 185/92. Labs were significant for a leukocytosis of 11.2, ESR 40, CRP 2.34, and BNP mildly elevated 2.1. Stable H& H. No significant electrolyte abnormalities. Renal and hepatic function WNL. Lactic acid WNL at 1.3. UA negative for UTI. Tox screen positive for fentanyl, methadone, and marijuana. CXR showed no acute intrathoracic disease. Right knee x-ray showed right TKA with soft tissue swelling but no acute osseous abnormality. Left foot x-ray showed soft tissue swelling overlying 1st and 2nd toes with chronic appearing destructive changes in the distal phalanges with no evidence of acute osteomyelitis at this time. Also showed chronic fracture of distal 5th metacarpal head, new when compared to 10/11/2021. EKG demonstrated normal sinus rhythm with QTc of 497 and without evidence of significant ST elevations or depressions. Pt was treated with IVF, morphine, vanc, and Zosyn. Pt will be admitted to the hospital for treatment and further evaluation of left lower extremity cellulitis in a patient with history of osteomyelitis and MRSA bacteremia. 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 Diabetic ulcer of lower leg Eschar of lower leg Peripheral arterial disease Pulmonary nodules Chronic respiratory failure Pneumonitis Obesity (BMI 35.0-39.9 without comorbidity) Acute respiratory failure with hypoxia NSTEMI (non-ST elevated myocardial infarction) Opioid use disorder Osteomyelitis Diabetes Anxiety Substance abuse Surgical History S/P amputation of foot Status post transmetatarsal amputation of right foot (09/24/21) Social History Household Members: Children Household Members Other:: son Housing: Apartment Alcohol intake: never Comment: took socks off Patient Tobacco Use Status: Current everyday Tobacco user Tobacco use type: Cigarette Cigarette Packs Per Day: 0 Cigarettes Per Day: 1 Years Smoked: 40 Smoked in Last 30 Days: Yes e-Cigarette/Vaping Use: Currently Using Patient Interested in Nicotine Replacement: Yes Second Hand Smoke Exposure: No Use of substances other than those prescribed or required for medical reasons: Yes Substance Use Type: Marijuana Substance Use Frequency: Occasionally Currently Displaying Signs/Symptoms of Drug Intoxication Withdrawal: No Have you been hit, kicked, punched, or otherwise hurt by someone within the past year? If so, by whom?: No Do you feel safe in your current relationship?: No Current Relationship Is there a partner from a previous relationship who is making you feel unsafe now?: No Are you made to feel afraid or neglected: No Advance Directives: Yes Advance Directives on File: Yes Advance Directives Date on File: 09/22/21 Do you have a plan to hurt others: No Plan Recently lost weight without trying: No Eating poorly because of decreased appetite: No Nutrition Risks: No Nutritional Risk Patient : No : No Poor oral hygiene: No service: No Current occupational status: unemployed Meds Allergies Allergy/AdvReac Type Severity Reaction Status Date / Time prednisone [PREDNISONE] Allergy Unknown RASH Verified 02/26/24 09:29 Home Medications ?Medication ?Instructions ?Recorded ?Confirmed ?Last Taken ?Type acetaminophen 500 mg tablet 2 caplet PO Q6H PRN mild pain 08/24/22 02/26/24 Unknown History empagliflozin 25 mg tablet 25 mg PO DAILY 11/28/22 02/26/24 02/25/24 History (Jardiance) insulin glargine 100 unit/mL (3 35 unit subcut BID 11/28/22 02/26/24 02/25/24 History mL) subcutaneous pen (Lantus Solostar U-100 Insulin) atorvastatin 80 mg tablet 80 mg PO DAILY 02/26/24 02/26/24 02/25/24 History baclofen 10 mg tablet 10 mg PO TID 02/26/24 02/26/24 02/25/24 History dulaglutide 0.75 mg/0.5 mL 0.75 mg subcut MO 02/26/24 02/26/24 02/19/24 History subcutaneous pen injector (Trulicity) duloxetine 30 mg capsule,delayed 30 mg PO DAILY 02/26/24 02/26/24 02/25/24 History release methadone 10 mg/mL oral 140 mg PO DAILY 02/27/24 02/27/24 02/25/24 History concentrate (Methadone Intensol) Physical Exam 2 Vital Signs and Narrative: Vital Signs: Last Vital Signs Temp 98.2 F 02/26/24 11:52 Pulse 91 02/26/24 14:02 Resp 16 02/26/24 14:02 BP 170/76 H 02/26/24 14:02 Pulse Ox 98 02/26/24 14:02 O2 Del Method Room Air 02/26/24 14:02 BMI result Body Mass Index 35.0 Constitutional: Alert, in no acute distress. Mental Status: Oriented to person, place and time. Eyes: Pupils are equal, round, and reactive to light. Ear, Nose, and Throat: Oropharynx clear, mucous membranes moist. Ears and nose without deformities. Trachea midline. Respiratory: Clear to auscultation bilaterally. No wheezing, rales, or rhonchi. Cardiovascular: S1, S2 regular. No murmurs, rubs, or gallops. Gastrointestinal: Abdomen soft, non-tender, non-distended. Normal bowel sounds. Neurologic: Cranial nerves II-XII are grossly intact bilaterally. No focal neurological deficits. Moves all extremities spontaneously. Skin: Warm, dry. Musculoskeletal: No cyanosis or clubbing. Extremities: Right stump with mild swelling and distal erythema. Left lower extremity with and swelling, warmth, erythema, and multiple encrusted lesions in various stages of healing. Chronic appearing wounds and distal aspect of 1st and 2nd digits of left foot. As pictured below. Psychiatric: Occasionally agitated and arguing with son who is at bedside. Results Labs 02/26/24 11:45 02/27/24 05:31 Labs: Laboratory Results - last 24 hr 02/26/24 02/26/24 02/26/24 11:45 11:49 13:25 MCV 87.8 MCH 29.2 MCHC 33.2 RDW 14.6 Plt Count 428 H MPV 10.2 Immature Gran % (Auto) 0.9 H Neut % (Auto) 80.9 H Lymph % (Auto) 13.8 L Davidson % (Auto) 3.9 Eos % (Auto) 0.1 Baso % (Auto) 0.4 Lymph # (Auto) 1.5 Davidson # (Auto) 0.4 Eos # (Auto) 0.0 Baso # (Auto) 0.1 Abs Immat Gran (auto) 0.10 H Absolute Neuts (auto) 9.0 H Absolute Nucleated RBC 0.000 Nucleated RBC % (auto) 0.0 ESR 40 H PT 15.3 H D INR 1.3 H Anion Gap 20 Estim Creat Clear Calc 110.6 Estimated GFR > 60 Random Glucose 177 H Lactic Acid 1.3 Calcium 9.8 Magnesium 1.9 Total Bilirubin 0.5 AST 14 ALT 12 Alkaline Phosphatase 116 C-Reactive Protein 2.34 H B-Natriuretic Peptide 201 H Total Protein 8.1 H Albumin 4.3 Urine Color Yellow Urine Appearance Clear Urine pH 7.0 Ur Specific [place] 1.020 Urine Protein 30 (1+) H Urine Glucose (UA) >=1000 H Urine Ketones >=160 Urine Blood Negative Urine Nitrite Negative Ur Leukocyte Esterase Negative Urine RBC 0-2 Urine WBC 0-5 Ur Squamous Epith Cells 6-10 Urine Bacteria Trace Hyaline Casts 0-2 Urine Yeast Present Urine Opiates Screen Not Detected Ur Buprenorphine Scrn Not Detected Ur Oxycodone Screen Not Detected Urine Methadone Screen Positive H Urine Fentanyl Screen POSITIVE H Ur Barbiturates Screen Not Detected Ur Phencyclidine Scrn Not Detected Ur Amphetamines Screen Not Detected U Benzodiazepines Scrn Not Detected Urine Cocaine Screen Not Detected U Marijuana (THC) Screen POSITIVE H Imaging Radiologist's Impressions: Impressions Chest X-Ray 02/26/24 11:25 IMPRESSION: 1. No acute intrathoracic disease. 2. Right below the knee amputation with soft tissue swelling but no acute osseous abnormality. 3. Soft tissue swelling overlying the first and second toes with chronic appearing destructive changes in the distal phalanges of the first and second toes. No evidence of osteomyelitis at this time. 4. Chronic fracture distal fifth metacarpal head, new when compared to 10/11/2021. Foot X-Ray 02/26/24 11:25 IMPRESSION: 1. No acute intrathoracic disease. 2. Right below the knee amputation with soft tissue swelling but no acute osseous abnormality. 3. Soft tissue swelling overlying the first and second toes with chronic appearing destructive changes in the distal phalanges of the first and second toes. No evidence of osteomyelitis at this time. 4. Chronic fracture distal fifth metacarpal head, new when compared to 10/11/2021. Knee X-Ray 02/26/24 11:25 IMPRESSION: 1. No acute intrathoracic disease. 2. Right below the knee amputation with soft tissue swelling but no acute osseous abnormality. 3. Soft tissue swelling overlying the first and second toes with chronic appearing destructive changes in the distal phalanges of the first and second toes. No evidence of osteomyelitis at this time. 4. Chronic fracture distal fifth metacarpal head, new when compared to 10/11/2021. Assessment and Plan (1) Cellulitis: Qualifiers: Laterality: left Site of cellulitis: extremity Site of cellulitis of extremity: lower extremity Qualified Code(s): L03.116 - Cellulitis of left lower limb Status: Acute Plan Pt is a 53-year-old female with a PMH significant for?peripheral artery disease, insulin-dependent type 2 diabetes, hx of osteomyelitis s/p right BKA, hx of NSTEMI, polysubstance use disorder, IVDU, hx of bilateral pulmonary embolism on lifelong anticoagulation with Eliquis, hx of MRSA bacteremia, and chronic opiate dependence on methadone who presents to the ED for evaluation left lower extremity redness and swelling, and overall feeling unwell. Pt will be admitted to the hospital for treatment and further evaluation of left lower extremity cellulitis in a patient with history of osteomyelitis and MRSA bacteremia. Left lower extremity cellulitis Increased erythema, swelling, and lesions x3 weeks Patient does not meet sepsis criteria: Elevated HR, but no tachypnea, fever, or leukocytosis; lactic acid WNL Patient received IVF and started on broad-spectrum antibiotics in the ED Will cover with vanc and Zosyn for now, started 02/26/2024 MRSA nasal screen Follow cultures PAD/HLD Continue statin HTN Continue lisinopril Hx of bilateral PE Continue Eliquis Nicotine dependence Reports smokes one cigarette daily, but vapes a lot NRT Obesisty class II Weight loss encouraged Mood disorder Continue home mood stabalizers Full Code Attending:?Dr. Chaudhari DVT Prophylaxis: On Eliquis Pt will require a hospitalization of at least two nights for treatment of?extensive left lower extremity cellulitis. Given the extent of cellulitis with overlying skin lesions, history of osteomyelitis s/p right BKA, and history of MRSA bacteremia, the patient will need admission to the hospital for administration of IV antibiotics and following blood cultures. Quality Stroke Does the patient have a stroke diagnosis?: No VTE Prior VTE?: No VTE Risk Level:: Medical - moderate - high VTE Device Contraindication: Treatment Not Indicated VTE Drug Contraindication: N/A - Med Ordered
--- NOTE | 2024-02-26 15:02 | PHA.MEDREC ---
Pharmacy Consult ? Medication Reconciliation Pharmacy has completed the medication reconciliation. Patient states she gets Methadone 140 mg daily from [facility] in [place] ([phone]) she said her last dose was delivered today but she didn't take before she came in, however when asked when the last time she took her medication she said yesterday but her son said she took something before she came here. she then said I'm not saying what i took this morning . Patient states she is no longer taking Lisinopril 5 mg daily, Metformin 500 mg bid, and ammonium lactate 1 application bid. Patient also states she takes 2 mg of Alprazolam at bedtime, However claim states 0.5 mg at bedtime. left med rec as what claim states Alprazolam 0.5 mg at bedtime.
--- NOTE | 2024-02-26 15:28 | PC.NURSE ---
Pt cleaned again for leak with purewick. Pt continues to be abrupt/abrasive then apologetic. Admits that she takes more Xanax then rx and reports fear of withdrawal, askin son to bring meds here, educated on not having home meds brought in and to relay concerns to admitting provider. HTN, [place] VERNON adware, pt pending admit.
--- NOTE | 2024-02-26 16:05 | PHA.PROG ---
Admission Date/Time: February 26, 2024 15:20 Indication:skin Weight in k.5 kg Adjusted body weight in Kg: Bertha body weight in Kg: Obesity Dosing Indication % IBW: Serum Creatinine - Last 168 Hours 02/26/24 11:49 Creatinine 0.72 Estimated CrCl and GFR - Last 168 Hours 02/26/24 11:49 Estim Creat Clear Calc 110.6 Estimated GFR > 60 Vancomycin Loading Dose: 2000mg Current Vancomycin Dosing Regimen: 1250mg Q12H Vancomycin Monitoring using AUC goal of 400 - 600 range with trough as surrogate marker: 477 mg/L Date and Time for next Vancomycin Level to be drawn: 02/26 @2100 Pharmacist Comments on Vancomycin Plan: Predicted trough of 14.6mg/L; patient's BMI is 35. Starting in the regular model but may want to consider switching to obese model depending on levels Vancomycin dosing will take advantage of [employer] as a clinical decision support tool that uses Bayesian modeling to calculate individual patient's pharmacokinetic parameters and forecast the patient's drug concentration time course with the target goal AUC 24 range of 400 - 600 mg/L/hr.
[2024-02-26] MEDS: 0.9 % Sodium Chloride Flush 3 ML SYRINGE IVFLUSH ×2 (16:12→22:20)
[2024-02-26] MEDS: Nicotine 21 MG PATCH.TD24 TRANSDERMA (16:13)
[2024-02-26] MEDS: Atorvastatin Calcium 80 MG TABLET PO (17:02)
[2024-02-26] MEDS: Gabapentin 300 MG CAPSULE 600 MG PO ×2 (17:02→20:57)
[2024-02-26] MEDS: DULoxetine HCl 30 MG CAPSULE.DR PO (17:03)
[2024-02-26] MEDS: oxyCODONE HCl Immed Release 5 MG TABLET PO (17:33)
[2024-02-26] MEDS: Empagliflozin 25 MG TABLET PO (17:33)
[2024-02-26] MEDS: HYDROmorphone HCl 1 MG/ML SYRINGE IVPUSH ×2 (19:31→23:24)
[2024-02-26] MEDS: Baclofen 10 MG TABLET PO (20:58)
[2024-02-26] MEDS: ALPRAZolam 0.5 MG TABLET PO (20:58)
[2024-02-26] MEDS: Apixaban 5 MG TABLET PO (20:58)
[2024-02-26] MEDS: Prochlorperazine Edisylate 10 MG/2 ML VIAL 5 MG IVPUSH (22:52)
[2024-02-26] MEDS: vancomycin HCL 1,250 MG in 0.9 % Sodium Chloride 250 ML 166.67 MG IV (22:54)
[2024-02-27 03:58] VITALS: BP 150/77; PULSE 85; RESP 16; TEMP 37.3; O2SAT 99
[2024-02-27 04:17] VITALS: RESP 18
[2024-02-27] MEDS: HYDROmorphone HCl 1 MG/ML SYRINGE IVPUSH ×5 (04:17→20:20)
[2024-02-27] MEDS: Piperacillin Sodium/Tazobactam 3.375 GM in 0.9 % Sodium Chloride 50 ML IV ×4 (04:18→21:31)
[2024-02-27 06:31] LABS: Creatinine Clr Calc Pharmacy 105.4; Estimated Glomerular Filt Rate > 60
[2024-02-27] MEDS: 0.9 % Sodium Chloride Flush 3 ML SYRINGE IVFLUSH ×2 (07:36→15:37)
[2024-02-27 07:52] VITALS: BP 142/73; PULSE 86; RESP 18; TEMP 36.3; O2SAT 99
--- NOTE | 2024-02-27 07:57 | HE.PHANOTE ---
RE: METHADONE DOSING Last dose of methadone 140 mg 02/18 seen at clinic, bottles given, supposed to return 02/24 for refill, last dose 02/25/24 per [place] at [facility] [place]
[2024-02-27 08:14] LABS: Glucose, Whole Blood 286 mg/dL (60-115)
[2024-02-27] MEDS: Gabapentin 300 MG CAPSULE 600 MG PO ×4 (08:26→20:22)
[2024-02-27] MEDS: Insulin Glargine,Hum.rec.anlog 100 UNIT/ML 10 ML VIAL 30 UNIT SUBCUT ×2 (08:27→20:22)
[2024-02-27] MEDS: DULoxetine HCl 30 MG CAPSULE.DR PO (08:27)
[2024-02-27] MEDS: Atorvastatin Calcium 80 MG TABLET PO (08:27)
[2024-02-27] MEDS: methADONE HCl 20 MG/2 ML ORAL.CONC 140 MG PO (08:27)
[2024-02-27] MEDS: Baclofen 10 MG TABLET PO ×3 (08:27→20:22)
[2024-02-27] MEDS: Apixaban 5 MG TABLET PO ×2 (08:27→20:22)
[2024-02-27] MEDS: Empagliflozin 25 MG TABLET PO (08:27)
[2024-02-27] MEDS: Nicotine 21 MG PATCH.TD24 TRANSDERMA (08:27)
--- NOTE | 2024-02-27 08:40 | P.PNIM_ITS ---
Subjective Subjective Date of Service: 02/27/24 Interval History: f/u on left leg cellulitis she is reporting less pain, swelling and redness Physical Exam 2 Vital Signs: Vital Signs: Last Vital Signs Temp 97.4 F 02/27/24 07:52 Pulse 86 02/27/24 07:52 Resp 18 02/27/24 07:52 BP 142/73 H 02/27/24 07:52 Pulse Ox 99 02/27/24 07:52 O2 Del Method Room Air 02/27/24 07:52 BMI result Body Mass Index 35.4 General: AO X 3, no acute distress Resp: CTA bilateral CVS: S1,S2,RRR GI: +BS, NT, no distention Skin: 02/26 02/25 Neuro: motor grossly intact Psych: appropriate affect Objective Data Active Medications Acetaminophen (Acetaminophen 325 Mg Tablet) 650 mg PO Q6H PRN PRN Reason: Pain, Mild (Pain Scale 1-3), fever or headache Alprazolam (Alprazolam 0.5 Mg Tablet) 0.5 mg PO BEDTIME [facility] Last Admin: 02/26/24 20:58 Dose: 0.5 mg Documented By: JOAN Apixaban (Apixaban 5 Mg Tablet) 5 mg PO BID [facility] Last Admin: 02/27/24 08:27 Dose: 5 mg Documented By: DEBBIE Atorvastatin Calcium (Atorvastatin Calcium 80 Mg Tablet) 80 mg PO DAILY [facility] Last Admin: 02/27/24 08:27 Dose: 80 mg Documented By: DEBBIE Baclofen (Baclofen 10 Mg Tablet) 10 mg PO TID [facility] Last Admin: 02/27/24 08:27 Dose: 10 mg Documented By: DEBBIE Benzonatate (Benzonatate 100 Mg Capsule) 100 mg PO TID PRN PRN Reason: Cough Calcium Carbonate (Calcium Carbonate 750 Mg Tab.Chew) 750 mg PO Q4H PRN PRN Reason: Heartburn Duloxetine HCl (Duloxetine Hcl 30 Mg Capsule.) 30 mg PO DAILY [facility] Last Admin: 02/27/24 08:27 Dose: 30 mg Documented By: DEBBIE Empagliflozin (Empagliflozin 25 Mg Tablet) 25 mg PO DAILY [facility] Last Admin: 02/27/24 08:27 Dose: 25 mg Documented By: DEBBIE Gabapentin (Gabapentin 300 Mg Capsule) 600 mg PO QID [facility] Last Admin: 02/27/24 08:26 Dose: 600 mg Documented By: DEBBIE Glucose (Glucose Gel 15 Gm Gel..Gram.) 15 gm PO Q15M PRN; Protocol PRN Reason: per Hypoglycemia Standing Ord. Hydromorphone HCl (Hydromorphone Hcl 1 Mg/Ml Syringe) 1 mg IVPUSH Q3H PRN; Protocol PRN Reason: Pain, Severe (Pain Scale 7-10) Last Admin: 02/27/24 07:34 Dose: 1 mg Documented By: DEBBIE Piperacillin Sod/Tazobactam (Sod 3.375 gm/ Sodium Chloride) 50 mls @ 100 mls/hr IV Q6H [facility] Last Infusion: 02/27/24 04:49 Dose: Infused Documented By: JOAN Vancomycin HCl 1,250 mg/ (Sodium Chloride) 250 mls @ 166.667 mls/hr IV Q12H [facility] Last Infusion: 02/27/24 00:25 Dose: Infused Documented By: JOAN Dextrose (D10) 250 mls @ 750 mls/hr IV Q15M PRN; Protocol PRN Reason: per Hypoglycemia Standing Ord. Insulin Glargine (Insulin Glargine,Hum.Rec.Anlog 100 Unit/Ml 10 Ml Vial) 30 unit SUBCUT BID [facility] Last Admin: 02/27/24 08:27 Dose: 30 unit Documented By: DEBBIE Insulin Human Lispro (Insulin Lispro 100 Unit/Ml 3 Ml Vial) 0 unit SUBCUT QIDACHS [facility]; Protocol Lactic Acid (Ammonium Lactate 12 % Lotion 226 Gm Bottle) 1 appl TOPICAL BID PRN; Protocol PRN Reason: Dry Skin Loperamide HCl (Loperamide Hcl 2 Mg Capsule) 2 mg PO Q4H PRN PRN Reason: Diarrhea Magnesium Hydroxide (Milk Of Magnesia 30 Ml Oral.Susp) 30 ml PO DAILY PRN PRN Reason: Constipation Melatonin (Melatonin 3 Mg Tablet) 6 mg PO BEDTIME PRN PRN Reason: Insomnia Methadone HCl (Methadone Hcl 20 Mg/2 Ml Oral.Conc) 140 mg PO DAILY [facility] Last Admin: 02/27/24 08:27 Dose: 140 mg Documented By: DEBBIE Nicotine (Nicotine 21 Mg Patch.Td24) 21 mg TRANSDERMA DAILY [facility] Last Admin: 02/27/24 08:27 Dose: 21 mg Documented By: DEBBIE Oxycodone HCl (Oxycodone Hcl Immed Release 5 Mg Tablet) 5 mg PO Q6H PRN PRN Reason: Pain, Severe (Pain Scale 7-10) Last Admin: 02/26/24 17:33 Dose: 5 mg Documented By: JOAQUIN Pharmacy Consult (Consult Rx Vancomycin Dosing) 1 each MISCELLANE DAILY PRN PRN Reason: Consult order Prochlorperazine Edisylate (Prochlorperazine Edisylate 10 Mg/2 Ml Vial) 5 mg IVPUSH Q6H PRN PRN Reason: Nausea and Vomiting Last Admin: 02/26/24 22:52 Dose: 5 mg Documented By: JOAN Sodium Chloride (0.9 % Sodium Chloride Flush 3 Ml Syringe) [facility] Last Admin: 02/27/24 07:36 Dose: 3 ml Documented By: DEBBIE Labs 02/26/24 11:45 02/27/24 05:31 Labs: Laboratory Results - last 24 hr 02/26/24 02/26/24 02/26/24 11:45 11:49 13:25 MCV 87.8 MCH 29.2 MCHC 33.2 RDW 14.6 Plt Count 428 H MPV 10.2 Immature Gran % (Auto) 0.9 H Neut % (Auto) 80.9 H Lymph % (Auto) 13.8 L [place] % (Auto) 3.9 Eos % (Auto) 0.1 Baso % (Auto) 0.4 Lymph # (Auto) 1.5 [place] # (Auto) 0.4 Eos # (Auto) 0.0 Baso # (Auto) 0.1 Abs Immat Gran (auto) 0.10 H Absolute Neuts (auto) 9.0 H Absolute Nucleated RBC 0.000 Nucleated RBC % (auto) 0.0 ESR 40 H PT 15.3 H D INR 1.3 H Anion Gap 20 Estim Creat Clear Calc 110.6 Estimated GFR > 60 POC Glucose Random Glucose 177 H Lactic Acid 1.3 Calcium 9.8 Magnesium 1.9 Total Bilirubin 0.5 AST 14 ALT 12 Alkaline Phosphatase 116 Total Creatine Kinase 129 C-Reactive Protein 2.34 H B-Natriuretic Peptide 201 H Total Protein 8.1 H Albumin 4.3 Urine Color Yellow Urine Appearance Clear Urine pH 7.0 Ur Specific [place] 1.020 Urine Protein 30 (1+) H Urine Glucose (UA) >=1000 H Urine Ketones >=160 Urine Blood Negative Urine Nitrite Negative Ur Leukocyte Esterase Negative Urine RBC 0-2 Urine WBC 0-5 Ur Squamous Epith Cells 6-10 Urine Bacteria Trace Hyaline Casts 0-2 Urine Yeast Present Urine Opiates Screen Not Detected Ur Buprenorphine Scrn Not Detected Ur Oxycodone Screen Not Detected Urine Methadone Screen Positive H Urine Fentanyl Screen POSITIVE H Ur Barbiturates Screen Not Detected Ur Phencyclidine Scrn Not Detected Ur Amphetamines Screen Not Detected U Benzodiazepines Scrn Not Detected Urine Cocaine Screen Not Detected U Marijuana (THC) Screen POSITIVE H 02/27/24 02/27/24 05:31 08:10 MCV MCH MCHC RDW Plt Count MPV Immature Gran % (Auto) Neut % (Auto) Lymph % (Auto) [place] % (Auto) Eos % (Auto) Baso % (Auto) Lymph # (Auto) [place] # (Auto) Eos # (Auto) Baso # (Auto) Abs Immat Gran (auto) Absolute Neuts (auto) Absolute Nucleated RBC Nucleated RBC % (auto) ESR PT INR Anion Gap Estim Creat Clear Calc 105.4 Estimated GFR > 60 POC Glucose 286 H Random Glucose Lactic Acid Calcium Magnesium Total Bilirubin AST ALT Alkaline Phosphatase Total Creatine Kinase C-Reactive Protein B-Natriuretic Peptide Total Protein Albumin Urine Color Urine Appearance Urine pH Ur Specific [place] Urine Protein Urine Glucose (UA) Urine Ketones Urine Blood Urine Nitrite Ur Leukocyte Esterase Urine RBC Urine WBC Ur Squamous Epith Cells Urine Bacteria Hyaline Casts Urine Yeast Urine Opiates Screen Ur Buprenorphine Scrn Ur Oxycodone Screen Urine Methadone Screen Urine Fentanyl Screen Ur Barbiturates Screen Ur Phencyclidine Scrn Ur Amphetamines Screen U Benzodiazepines Scrn Urine Cocaine Screen U Marijuana (THC) Screen Assessment and Plan (1) Cellulitis: Status: Acute Plan Pt is a 53-year-old female with a PMH significant for?peripheral artery disease, insulin-dependent type 2 diabetes, hx of osteomyelitis s/p right BKA, hx of NSTEMI, polysubstance use disorder, IVDU, hx of bilateral pulmonary embolism on lifelong anticoagulation with Eliquis, hx of MRSA bacteremia, and chronic opiate dependence on methadone who presents to the ED for evaluation left lower extremity redness and swelling, and overall feeling unwell. Pt will be admitted to the hospital for treatment and further evaluation of left lower extremity cellulitis in a patient with history of osteomyelitis and MRSA bacteremia. Left lower extremity cellulitis on chronic venous insuficiency--improving and less pain -Continue Vanco and Zosyn -blood cultures pending -MRSA nasal screen -ammonium lactate to dry skin PAD/HLD Continue statin Insulin dependent diabetes -Lantus 30 bid (35 at home), SSI, diabetic diet,check A1C HTN Continue lisinopril Hx of bilateral PE Continue Eliquis Nicotine dependence Reports smokes one cigarette daily, but vapes a lot NRT Obesisty class II Weight loss encouraged Opioid use disorder/opioid dependence--continue Methadone Mood disorder Continue home mood stabalizers Full Code Attending:?Dr. Chaudhari DVT Prophylaxis: On Eliquis Need for inpt: IV Abx for cellulitis involing 90% of leg in diabetic pt, at risk for sepsis Quality Stroke Does the patient have a stroke diagnosis?: No VTE Prior VTE?: No VTE Risk Level:: Medical - moderate - high VTE Device Contraindication: Treatment Not Indicated VTE Drug Contraindication: N/A - Med Ordered
[2024-02-27 09:05] LABS: Anion Gap 20 (12-20)
[2024-02-27 09:10] LABS: Blood Urea Nitrogen 12 mg/dL (9-16); Chloride 103 mmol/L (96-108); Glucose Random 166 mg/dL (60-115); Potassium 3.7 mmol/L (3.3-5.1); Sodium 135 mmol/L (135-145)
[2024-02-27 09:32] LABS: Carbon Dioxide 15 mmol/L (22-29)
[2024-02-27 09:38] LABS: MRSA Nasal PCR NEGATIVE (Negative); SA Nasal PCR NEGATIVE (Negative)
[2024-02-27 09:46] LABS: Estimated Average Glucose 192 mg/dL; Hemoglobin A1c % 8.3 % (<6.0)
[2024-02-27] MEDS: vancomycin HCL 1,250 MG in 0.9 % Sodium Chloride 250 ML 166.67 MG IV (10:24)
[2024-02-27 11:08] LABS: Glucose, Whole Blood 269 mg/dL (60-115)
[2024-02-27] MEDS: Insulin Lispro 100 UNIT/ML 3 ML VIAL SUBCUT ×3 (11:51→20:29)
--- NOTE | 2024-02-27 12:55 | MHC.CM.PN ---
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
[2024-02-27 15:45] VITALS: BP 125/62; PULSE 87; RESP 18; TEMP 36.7; O2SAT 96
[2024-02-27 16:43] LABS: Glucose, Whole Blood 274 mg/dL (60-115)
[2024-02-27 19:27] VITALS: BP 105/60; PULSE 83; RESP 18; TEMP 36.4; O2SAT 96
[2024-02-27] MEDS: ALPRAZolam 0.5 MG TABLET PO (20:22)
[2024-02-27 20:40] LABS: Glucose, Whole Blood 277 mg/dL (60-115)
[2024-02-27 21:55] LABS: Vancomycin Trough 18.3 mcg/mL (10.0-20.0)
--- NOTE | 2024-02-27 22:06 | HE.PHANOTE ---
RE:vanco Trough on 02/26 came back at 18.3; decreased dose to 1000mg Q12H with predicted trough of 15.4 mg/L, AUC of 479 mg/L. Getting another level 02/27 @2100
[2024-02-27] MEDS: vancomycin HCL 1,000 MG in 0.9 % Sodium Chloride 250 ML 270 MG IV (22:35)
[2024-02-28] MEDS: HYDROmorphone HCl 1 MG/ML SYRINGE IVPUSH ×6 (02:27→22:32)
[2024-02-28] MEDS: Piperacillin Sodium/Tazobactam 3.375 GM in 0.9 % Sodium Chloride 50 ML IV ×4 (03:51→22:31)
[2024-02-28 04:00] VITALS: BP 125/66; PULSE 78; RESP 16; TEMP 36.1; O2SAT 98
[2024-02-28 06:37] LABS: Creatinine Clr Calc Pharmacy 77.8; Estimated Glomerular Filt Rate 56
[2024-02-28 06:38] LABS: Hematocrit 35.8 % (37.0-47.0); Hemoglobin 11.3 g/dl (12.0-16.0); Mean Corpuscular HGB Conc 31.6 g/dl (31.0-35.0); Mean Corpuscular Hemoglobin 28.9 pg (27.0-33.0); Mean Corpuscular Volume 91.6 fL (80.0-98.0); Mean Platelet Volume 10.4 fL (9.4-12.3); Platelet Count 329 X10*3/uL (160-400); Red Blood Count 3.91 X10*6/uL (4.20-5.50); White Blood Count 9.3 X10*3/uL (4.8-10.8)
[2024-02-28 07:20] LABS: Glucose, Whole Blood 269 mg/dL (60-115)
[2024-02-28 07:37] VITALS: BP 122/66; PULSE 77; RESP 18; TEMP 36.2; O2SAT 98
--- NOTE | 2024-02-28 08:04 | HE.PHANOTE ---
Re Vancomycin SCr has gone up tp 1.03, current projected trough will be close to supratherapeutic. Will reduce dose to 750mg Q12H on the same schedule, new projected AUC:435 mg/L Trough will be ~14.6 mg/L. Next level at 2100.
--- NOTE | 2024-02-28 08:17 | P.PNIM_ITS ---
Subjective Subjective Date of Service: 02/28/24 Interval History: f/u on left leg cellulitis redness ad pain continue to improve Physical Exam 2 Vital Signs: Vital Signs: Last Vital Signs Temp 97.1 F 02/28/24 07:37 Pulse 77 02/28/24 07:37 Resp 18 02/28/24 07:37 BP 122/66 02/28/24 07:37 Pulse Ox 98 02/28/24 07:37 O2 Del Method Room Air 02/28/24 07:37 BMI result Body Mass Index 35.4 General: AO X 3, no acute distress Resp: CTA bilateral CVS: S1,S2,RRR GI: +BS, NT, no distention Skin: 02/27 02/26 02/25 Neuro: motor grossly intact Psych: appropriate affect Objective Data Active Medications Acetaminophen (Acetaminophen 325 Mg Tablet) 650 mg PO Q6H PRN PRN Reason: Pain, Mild (Pain Scale 1-3), fever or headache Alprazolam (Alprazolam 0.5 Mg Tablet) 0.5 mg PO BEDTIME [facility] Last Admin: 02/27/24 20:22 Dose: 0.5 mg Documented By: KEN Apixaban (Apixaban 5 Mg Tablet) 5 mg PO BID [facility] Last Admin: 02/27/24 20:22 Dose: 5 mg Documented By: KEN Atorvastatin Calcium (Atorvastatin Calcium 80 Mg Tablet) 80 mg PO DAILY [facility] Last Admin: 02/27/24 08:27 Dose: 80 mg Documented By: DEBBIE Baclofen (Baclofen 10 Mg Tablet) 10 mg PO TID [facility] Last Admin: 02/27/24 20:22 Dose: 10 mg Documented By: KEN Benzonatate (Benzonatate 100 Mg Capsule) 100 mg PO TID PRN PRN Reason: Cough Calcium Carbonate (Calcium Carbonate 750 Mg Tab.Chew) 750 mg PO Q4H PRN PRN Reason: Heartburn Duloxetine HCl (Duloxetine Hcl 30 Mg Capsule.) 30 mg PO DAILY [facility] Last Admin: 02/27/24 08:27 Dose: 30 mg Documented By: DEBBIE Empagliflozin (Empagliflozin 25 Mg Tablet) 25 mg PO DAILY [facility] Last Admin: 02/27/24 08:27 Dose: 25 mg Documented By: DEBBIE Gabapentin (Gabapentin 300 Mg Capsule) 600 mg PO QID [facility] Last Admin: 02/27/24 20:22 Dose: 600 mg Documented By: KEN Glucose (Glucose Gel 15 Gm Gel..Gram.) 15 gm PO Q15M PRN; Protocol PRN Reason: per Hypoglycemia Standing Ord. Hydromorphone HCl (Hydromorphone Hcl 1 Mg/Ml Syringe) 1 mg IVPUSH Q3H PRN; Protocol PRN Reason: Pain, Severe (Pain Scale 7-10) Last Admin: 02/28/24 02:27 Dose: 1 mg Documented By: JANAY Piperacillin Sod/Tazobactam (Sod 3.375 gm/ Sodium Chloride) 50 mls @ 100 mls/hr IV Q6H [facility] Last Infusion: 02/28/24 04:54 Dose: Infused Documented By: ANTOIC Dextrose (D10) 250 mls @ 750 mls/hr IV Q15M PRN; Protocol PRN Reason: per Hypoglycemia Standing Ord. Insulin Glargine (Insulin Glargine,Hum.Rec.Anlog 100 Unit/Ml 10 Ml Vial) 35 unit SUBCUT BID [facility] Insulin Human Lispro (Insulin Lispro 100 Unit/Ml 3 Ml Vial) 0 unit SUBCUT QIDACHS [facility]; Protocol Last Admin: 02/27/24 20:29 Dose: 6 unit Documented By: KEN Lactic Acid (Ammonium Lactate 12 % Lotion 226 Gm Bottle) 1 appl TOPICAL BID PRN; Protocol PRN Reason: Dry Skin Loperamide HCl (Loperamide Hcl 2 Mg Capsule) 2 mg PO Q4H PRN PRN Reason: Diarrhea Magnesium Hydroxide (Milk Of Magnesia 30 Ml Oral.Susp) 30 ml PO DAILY PRN PRN Reason: Constipation Melatonin (Melatonin 3 Mg Tablet) 6 mg PO BEDTIME PRN PRN Reason: Insomnia Methadone HCl (Methadone Hcl 20 Mg/2 Ml Oral.Conc) 140 mg PO DAILY [facility] Last Admin: 02/27/24 08:27 Dose: 140 mg Documented By: DEBBIE Nicotine (Nicotine 21 Mg Patch.Td24) 21 mg TRANSDERMA DAILY [facility] Last Admin: 02/27/24 08:27 Dose: 21 mg Documented By: DEBBIE Oxycodone HCl (Oxycodone Hcl Immed Release 5 Mg Tablet) 5 mg PO Q6H PRN PRN Reason: Pain, Severe (Pain Scale 7-10) Last Admin: 02/26/24 17:33 Dose: 5 mg Documented By: JOAQUIN Pharmacy Consult (Consult Rx Vancomycin Dosing) 1 each MISCELLANE DAILY PRN PRN Reason: Consult order Prochlorperazine Edisylate (Prochlorperazine Edisylate 10 Mg/2 Ml Vial) 5 mg IVPUSH Q6H PRN PRN Reason: Nausea and Vomiting Last Admin: 02/26/24 22:52 Dose: 5 mg Documented By: JOAN Sodium Chloride (0.9 % Sodium Chloride Flush 3 Ml Syringe) 3 ml IVFLUSH QSHIFT [facility] Last Admin: 02/27/24 23:36 Dose: Not Given Documented By: JANAY Non-Admin Reason: IV Running Labs 02/28/24 05:42 02/28/24 05:42 Labs: Laboratory Results - last 24 hr 02/26/24 02/27/24 02/27/24 21:20 05:31 11:03 MCV MCH MCHC RDW Plt Count MPV Absolute Nucleated RBC Nucleated RBC % (auto) Anion Gap 20 Estim Creat Clear Calc 105.4 Estimated GFR > 60 POC Glucose 269 H Random Glucose 166 H Estimat Average Glucose Hemoglobin A1c % Calcium 9.0 D Nasal Screen MRSA (PCR) NEGATIVE Nasal S. aureus Screen NEGATIVE Nasal MRSA/S.aureus Interp SEE NOTE Vancomycin Trough 02/27/24 02/27/24 02/27/24 11:45 16:39 19:35 MCV MCH MCHC RDW Plt Count MPV Absolute Nucleated RBC Nucleated RBC % (auto) Anion Gap Estim Creat Clear Calc Estimated GFR POC Glucose 274 H 277 H Random Glucose Estimat Average Glucose 192 Hemoglobin A1c % 8.3 H Calcium Nasal Screen MRSA (PCR) Nasal S. aureus Screen Nasal MRSA/S.aureus Interp Vancomycin Trough 02/27/24 02/28/24 02/28/24 21:11 05:42 07:16 MCV 91.6 MCH 28.9 MCHC 31.6 RDW 15.0 Plt Count 329 MPV 10.4 Absolute Nucleated RBC 0.000 Nucleated RBC % (auto) 0.0 Anion Gap Estim Creat Clear Calc 77.8 Estimated GFR 56 POC Glucose 269 H Random Glucose Estimat Average Glucose Hemoglobin A1c % Calcium Nasal Screen MRSA (PCR) Nasal S. aureus Screen Nasal MRSA/S.aureus Interp Vancomycin Trough 18.3 Microbiology Microbiology Results: Microbiology 02/26/24 11:49 Blood Culture - Preliminary Blood - Venous No growth after 24 hours. 02/26/24 11:49 Blood Culture - Preliminary Blood - Venous No growth after 24 hours. Assessment and Plan (1) Cellulitis: Status: Acute Plan Pt is a 53-year-old female with a PMH significant for?peripheral artery disease, insulin-dependent type 2 diabetes, hx of osteomyelitis s/p right BKA, hx of NSTEMI, polysubstance use disorder, IVDU, hx of bilateral pulmonary embolism on lifelong anticoagulation with Eliquis, hx of MRSA bacteremia, and chronic opiate dependence on methadone who presents to the ED for evaluation left lower extremity redness and swelling, and overall feeling unwell. Pt will be admitted to the hospital for treatment and further evaluation of left lower extremity cellulitis in a patient with history of osteomyelitis and MRSA bacteremia. Left lower extremity cellulitis on chronic venous insuficiency--improving and less pain -MRSA nasal screen negativ -DC Vanco started 02/25, -continue Zosyn started 02/25 -replace vanco with Doxy 02/25 -blood cultures negative -ammonium lactate to dry skin -At discharge change, likely tomorrow, chgange to oral Doxy + Augmentin x 5 more days PAD/HLD Continue statin Insulin dependent diabetes--FBS > 200 -Lantus 35 bid ( home home dose), Jardiance 25 mg daily, Trulicity weekly, SSI, diabetic diet. A1C =8.3 HTN--Not on med, had high earlier now normal without meds, if needed start Lisinopril Hx of bilateral PE Continue Eliquis Nicotine dependence Reports smokes one cigarette daily, but vapes a lot NRT Obesisty class II Weight loss encouraged Opioid use disorder/opioid dependence--continue Methadone Mood disorder Continue home mood stabalizers Full Code DVT Prophylaxis: On Eliquis Need for inpt: IV Abx for cellulitis involing 90% of leg in diabetic pt, at risk for sepsis Quality Stroke Does the patient have a stroke diagnosis?: No VTE Prior VTE?: No VTE Risk Level:: Medical - moderate - high VTE Device Contraindication: Treatment Not Indicated VTE Drug Contraindication: N/A - Med Ordered
[2024-02-28] MEDS: Nicotine 21 MG PATCH.TD24 TRANSDERMA (08:26)
[2024-02-28] MEDS: Atorvastatin Calcium 80 MG TABLET PO (08:27)
[2024-02-28] MEDS: Empagliflozin 25 MG TABLET PO (08:27)
[2024-02-28] MEDS: Apixaban 5 MG TABLET PO ×2 (08:27→21:01)
[2024-02-28] MEDS: Gabapentin 300 MG CAPSULE 600 MG PO ×4 (08:27→21:01)
[2024-02-28] MEDS: Baclofen 10 MG TABLET PO ×3 (08:27→21:01)
[2024-02-28] MEDS: DULoxetine HCl 30 MG CAPSULE.DR PO (08:27)
[2024-02-28] MEDS: methADONE HCl 20 MG/2 ML ORAL.CONC 140 MG PO (08:27)
[2024-02-28] MEDS: Insulin Lispro 100 UNIT/ML 3 ML VIAL SUBCUT ×4 (08:28→21:01)
[2024-02-28] MEDS: 0.9 % Sodium Chloride Flush 3 ML SYRINGE IVFLUSH ×3 (08:31→21:02)
[2024-02-28] MEDS: Insulin Glargine,Hum.rec.anlog 100 UNIT/ML 10 ML VIAL 35 UNIT SUBCUT ×2 (08:48→21:02)
[2024-02-28] MEDS: Doxycycline Hyclate 100 MG in 0.9 % Sodium Chloride 250 ML 166.67 MG IV ×2 (08:49→21:00)
[2024-02-28 11:32] LABS: Glucose, Whole Blood 239 mg/dL (60-115)
[2024-02-28 16:00] VITALS: BP 117/62; PULSE 80; RESP 17; TEMP 36.5; O2SAT 95
[2024-02-28 16:30] LABS: Glucose, Whole Blood 215 mg/dL (60-115)
[2024-02-28] MEDS: Ammonium Lactate 12 % Lotion 226 GM BOTTLE 1 APPL TOPICAL (19:17)
[2024-02-28 20:00] VITALS: BP 145/64; PULSE 84; RESP 20; TEMP 37.1; O2SAT 99
[2024-02-28 20:34] LABS: Glucose, Whole Blood 181 mg/dL (60-115)
[2024-02-28] MEDS: ALPRAZolam 0.5 MG TABLET PO (21:00)
[2024-02-29] MEDS: HYDROmorphone HCl 1 MG/ML SYRINGE IVPUSH ×5 (02:37→17:04)
[2024-02-29 03:07] VITALS: BP 142/67; PULSE 78; RESP 16; TEMP 36; O2SAT 98
[2024-02-29] MEDS: Piperacillin Sodium/Tazobactam 3.375 GM in 0.9 % Sodium Chloride 50 ML IV ×3 (04:25→15:58)
[2024-02-29 07:02] LABS: Estimated Glomerular Filt Rate > 60
[2024-02-29 07:40] VITALS: BP 147/60; PULSE 89; RESP 16; TEMP 36.2; O2SAT 96
[2024-02-29 07:40] LABS: Glucose, Whole Blood 240 mg/dL (60-115)
[2024-02-29] MEDS: Nicotine 21 MG PATCH.TD24 TRANSDERMA (08:21)
[2024-02-29] MEDS: Insulin Glargine,Hum.rec.anlog 100 UNIT/ML 10 ML VIAL 35 UNIT SUBCUT (08:23)
[2024-02-29] MEDS: 0.9 % Sodium Chloride Flush 3 ML SYRINGE IVFLUSH ×2 (08:24→16:06)
[2024-02-29] MEDS: methADONE HCl 20 MG/2 ML ORAL.CONC 140 MG PO (08:25)
[2024-02-29] MEDS: Apixaban 5 MG TABLET PO (08:27)
[2024-02-29] MEDS: Gabapentin 300 MG CAPSULE 600 MG PO ×3 (08:27→16:31)
[2024-02-29] MEDS: DULoxetine HCl 30 MG CAPSULE.DR PO (08:27)
[2024-02-29] MEDS: Baclofen 10 MG TABLET PO ×2 (08:27→15:58)
[2024-02-29] MEDS: Atorvastatin Calcium 80 MG TABLET PO (08:27)
[2024-02-29] MEDS: Empagliflozin 25 MG TABLET PO (08:27)
[2024-02-29] MEDS: Doxycycline Hyclate 100 MG in 0.9 % Sodium Chloride 250 ML 166.67 MG IV (08:29)
[2024-02-29] MEDS: Insulin Lispro 100 UNIT/ML 3 ML VIAL SUBCUT ×3 (08:37→16:31)
[2024-02-29 11:29] LABS: Glucose, Whole Blood 209 mg/dL (60-115)
--- NOTE | 2024-02-29 12:07 | PM.DS ---
DS: Providers Provider Date of Service: 02/29/24 Date of admission: 02/26/24 15:20 Primary care physician: Nikhil Potts MD Consults: 02/26/24 18:33 Consult to Wound Care Routine Reason for consultation: cellulitis DS: Diagnosis Discharge Diagnosis (1) Cellulitis: Status: Acute (2) Hyperglycemia due to type 2 diabetes mellitus: Status: Acute DS: Summary Hospital Course Hospital Course: Admission note HPI Pt is a 53-year-old female with a PMH significant for?peripheral artery disease, insulin-dependent type 2 diabetes, hx of osteomyelitis s/p right BKA, hx of NSTEMI, polysubstance use disorder, IVDU, hx of bilateral pulmonary embolism on lifelong anticoagulation with Eliquis, hx of MRSA bacteremia, and chronic opiate dependence on methadone who presents to the ED for evaluation left lower extremity redness and swelling, and overall feeling unwell. Patient reports had right BKA in September and was discharged to [facility] where she remained for 4+ months until discharged home one month ago. Reports bilateral extremities were normal and without swelling or erythmea. However, noticed that right lower extremity was turning red and began swelling approximately 3 weeks ago. Patient has recently taken to wrapping lower extremity in Gregorio bandage. Last night patient began feeling ?sick? with lightheadedness, myalgias, and generalized malaise. Patient also was incontinent of urine last night which is abnormal for her and which prompted her visit to the ED today. Denies fever, chills. No nausea, vomiting, abdominal pain. Denies chest pain or pressure. No SOB. In the ED pt was afebrile but with elevated heart rate up to 95, and mildly hypertensive up to 185/92. Labs were significant for a leukocytosis of 11.2, ESR 40, CRP 2.34, and BNP mildly elevated 2.1. Stable H& H. No significant electrolyte abnormalities. Renal and hepatic function WNL. Lactic acid WNL at 1.3. UA negative for UTI. Tox screen positive for fentanyl, methadone, and marijuana. CXR showed no acute intrathoracic disease. Right knee x-ray showed right TKA with soft tissue swelling but no acute osseous abnormality. Left foot x-ray showed soft tissue swelling overlying 1st and 2nd toes with chronic appearing destructive changes in the distal phalanges with no evidence of acute osteomyelitis at this time. Also showed chronic fracture of distal 5th metacarpal head, new when compared to 10/11/2021. EKG demonstrated normal sinus rhythm with QTc of 497 and without evidence of significant ST elevations or depressions. Pt was treated with IVF, morphine, vanc, and Zosyn. Pt will be admitted to the hospital for treatment and further evaluation of left lower extremity cellulitis in a patient with history of osteomyelitis and MRSA bacteremia. Hospital course Treated for Left lower extremity cellulitis on chronic venous insuficiency with IV antibiotics of Zosyn and Vancomycin on presentation. Kept on Zosyn with Doxycycline as MRSA nasal screen negative. erythema and tenderness improved significantly. Ammonium lactate lotion added for dry skin with fair response. blood cultures remained negative. She will be discharged on 1 more week of Augmentin and Doxycycline and to be follow by [facility]. For PAD/HLD she is on Eliquis along with statin For Hyperglycemia in Insulin dependent diabetes with FBS > 200 restarted Lantus 35 bid, Jardiance 25 mg daily, Trulicity weekly as HbA1C =8.3. advised her to only have diabetic diet. Discharge plan Take Augmentin and Doxycycline for 1 more week Use Ammonium lotion at least once daily to keep skin moist Visiting nurses to follow on your leg wounds and for physical therapy Time Attestation Discharge Coordination Time (in mins): 38 Quality: Safe Use of Opioids Does Pt have an Active Cancer Diagnosis on the Problem List?: No Quality: Stroke Does the patient have a stroke diagnosis?: No Physical Exam Vital Signs: Vital Signs: Last Vital Signs Temp 97.2 F 02/29/24 07:40 Pulse 89 02/29/24 07:40 Resp 16 02/29/24 07:40 BP 147/60 H 02/29/24 07:40 Pulse Ox 96 02/29/24 07:40 O2 Del Method Room Air 02/29/24 07:40 BMI result Body Mass Index 35.4 Const: Other: Constitutional : Awake, interactive, not in distress Neck : Normal inspection, Supple Cardiovascular : RRR, no JVP, no lower extremity edema Respiratory : good bilateral air entry, no crackles, wheezes or rhonchi Gastrointestinal: soft, lax, Normal bowel sounds, Non tender Skin : Warm, Dry Extremities: RLE BKA, LLE decrease erythema, no tenderness, dry wrinkly skin, no drainage. Chronic appearing wounds and distal aspect of 1st and 2nd digits of left foot Neurological : Alert & oriented x3, No focal deficit DS: Data Data Completed and Pending Completed studies during hospitalization [Text1]: Procedures Detachment at Right 1st Toe, Mid, Open Approach (09/21/21) Detachment at Right 2nd Toe, Mid, Open Approach (09/21/21) Excision of Right Foot Subcutaneous Tissue and Fascia, Open Approach (09/21/21) Excision of Right Lower Leg Skin, External Approach (04/24/23) Insertion of Infusion Device into Left External Jugular Vein, Percutaneous Approach (09/21/21) Insertion of Infusion Device into Superior Vena Cava, Percutaneous Approach (09/21/21) Labs on day of discharge: Laboratory Results - last 24 hr 02/28/24 02/28/24 02/29/24 16:13 20:22 05:33 Hold Purple Top SEE NOTE Creatinine 0.90 Estim Creat Clear Calc 89.0 Estimated GFR > 60 POC Glucose 215 H 181 H 02/29/24 02/29/24 07:14 11:08 Hold Purple Top Creatinine Estim Creat Clear Calc Estimated GFR POC Glucose 240 H 209 H Preliminary micro results at discharge 02/26/24 11:49 Blood Culture - Preliminary Blood - Venous No growth after 48 hours. 02/26/24 11:49 Blood Culture - Preliminary Blood - Venous No growth after 48 hours. Imaging Chest x-ray: Radiologist's impression: ITS Impressions Chest X-Ray 02/26/24 11:25 IMPRESSION: 1. No acute intrathoracic disease. 2. Right below the knee amputation with soft tissue swelling but no acute osseous abnormality. 3. Soft tissue swelling overlying the first and second toes with chronic appearing destructive changes in the distal phalanges of the first and second toes. No evidence of osteomyelitis at this time. 4. Chronic fracture distal fifth metacarpal head, new when compared to 10/11/2021. Foot X-Ray 02/26/24 11:25 IMPRESSION: 1. No acute intrathoracic disease. 2. Right below the knee amputation with soft tissue swelling but no acute osseous abnormality. 3. Soft tissue swelling overlying the first and second toes with chronic appearing destructive changes in the distal phalanges of the first and second toes. No evidence of osteomyelitis at this time. 4. Chronic fracture distal fifth metacarpal head, new when compared to 10/11/2021. Knee X-Ray 02/26/24 11:25 IMPRESSION: 1. No acute intrathoracic disease. 2. Right below the knee amputation with soft tissue swelling but no acute osseous abnormality. 3. Soft tissue swelling overlying the first and second toes with chronic appearing destructive changes in the distal phalanges of the first and second toes. No evidence of osteomyelitis at this time. 4. Chronic fracture distal fifth metacarpal head, new when compared to 10/11/2021. Discharge Plan Discharge Anticipated Discharge Date/Time: 02/29/24 11:52 Patient Disposition: Home Health Service Discharge Diagnosis: Cellulitis Referrals: Nikhil Gagnon MD [Primary Care Provider] - 1 Week Discharge Medications: New ammonium lactate 12 % Lotion 1 appl topical BID PRN (Reason: Dry Skin) Qty: 225 1RF Protocol: Apply to: Apply to: legs oxycodone 5 mg Tablet 5 mg PO Q6H PRN (Reason: Pain, Severe (Pain Scale 7-10)) Qty: 15 0RF Rx Instructions: Partial Fill upon patient request. doxycycline monohydrate 100 mg capsule 100 mg PO BID Qty: 14 0RF amoxicillin-pot clavulanate 875-125 mg tablet 1 tab PO BID Qty: 14 0RF Continued (DME) [facility] [place] See Rx Instructions .Route Qty: 1 0RF Rx Instructions: As directed acetaminophen 500 mg tablet 2 caplet PO Q6H PRN (Reason: mild pain) Eliquis 5 mg tablet 5 mg PO BID 30 Days Qty: 60 0RF nicotine 21 mg/24 hr Patch 24 Hour 21 mg transdermal DAILY Qty: 14 0RF loperamide 2 mg Capsule 2 mg PO Q4H PRN (Reason: Diarrhea) Qty: 20 0RF gabapentin 300 mg Capsule 600 mg PO QID Qty: 240 0RF Jardiance 25 mg tablet 25 mg PO DAILY insulin glargine [Lantus Solostar U-100 Insulin] 100 unit/mL (3 mL) insulin pen 35 unit subcut BID baclofen 10 mg tablet 10 mg PO TID Trulicity 0.75 mg/0.5 mL pen injector 0.75 mg subcut MO atorvastatin 80 mg tablet 80 mg PO DAILY duloxetine 30 mg capsule,delayed release(DR/EC) 30 mg PO DAILY methadone [Methadone Intensol] 10 mg/mL Concentrate 140 mg PO DAILY Changed alprazolam 0.5 mg tablet 0.5 mg PO BEDTIME PRN (Reason: Anxiety) Qty: 10 0RF Discharge Orders: Discharge Order (Routine); Ordered 02/29/24 Ordered By: Sesar Painting Diet: Diabetic diet Activity on Discharge: As tolerated Stand Alone Forms: Patient Portal Discharge page Print Language: [place] Care Plan Goals: Take Augmentin and Doxycycline for 1 more week Use Ammonium lotion at least once daily to keep skin moist Visiting nurses to follow on your leg wounds and for physical therapy Health Concerns: Read below Plan of Treatment: Read below Assessment: Read below Discharge Date/Time: 02/29/24 19:55
--- NOTE | 2024-02-29 12:14 | MHC.CM.PN ---
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
[2024-02-29 15:09] VITALS: BP 146/71; PULSE 82; RESP 16; TEMP 36.8; O2SAT 95
[2024-02-29 16:22] LABS: Glucose, Whole Blood 207 mg/dL (60-115)
[2024-02-29] MEDS: ALPRAZolam 0.5 MG TABLET PO (17:05)
== END 2024-02-29 19:55 | disposition home health service (06) | DRG 383 ==
LOC: HO.ED 13:58 → HO.EDOVER 15:27 → HO.S3 17:05
PROVIDERS: Internal Medicine; Physician Assistant; Admitting Provider Student in an Organized Health Care Education/Training Program; Emergency Provider Emergency Medicine; PCP Internal Medicine; Visit Provider Student in an Organized Health Care Education/Training Program
DX: L03.116 Cellulitis of left lower limb (principal); E11.51 Type 2 diabetes mellitus with diabetic peripheral angiopathy without gangrene; I87.2 Venous insufficiency (chronic) (peripheral); E78.5 Hyperlipidemia, unspecified; F11.20 Opioid dependence, uncomplicated; F17.210 Nicotine dependence, cigarettes, uncomplicated; E66.8 Other obesity; E11.65 Type 2 diabetes mellitus with hyperglycemia; Z68.35 Body mass index [BMI] 35.0-35.9, adult; Z71.6 Tobacco abuse counseling; Z89.511 Acquired absence of right leg below knee; F19.90 Other psychoactive substance use, unspecified, uncomplicated; Z86.711 Personal history of pulmonary embolism; Z86.14 Personal history of Methicillin resistant Staphylococcus aureus infection; Z79.4 Long term (current) use of insulin; Z79.01 Long term (current) use of anticoagulants; Z79.85 Long-term (current) use of injectable non-insulin antidiabetic drugs; Z79.899 Other long term (current) drug therapy
CPT/HCPCS: 36415; 71045; 73560; 73620; 80048; 80053; 80202; 80307; 81001; 82550; 82565; 82947; 83036; 83605; 83735; 83880; 85025; 85027; 85610; 85652; 86140; 87040; 87640; 87641; 93005; 99221; 99285; J0737; J1170; J2270; J2543; J3370; J3371

== ENCOUNTER → 2024-02-26 11:48 | Outpatient (BNV) | payer MEDICAID, SELFPAY | PROVIDERS: Admitting Provider Student in an Organized Health Care Education/Training Program; Emergency Provider Emergency Medicine; Visit Provider Internal Medicine | DX: R94.31 Abnormal electrocardiogram [ECG] [EKG] (principal) | CPT/HCPCS: 93010 ==

== ENCOUNTER → 2024-02-26 15:20 | Outpatient (BNV) | payer MEDICAID, SELFPAY | PROVIDERS: Admitting Provider Student in an Organized Health Care Education/Training Program; Emergency Provider Emergency Medicine; Visit Provider Student in an Organized Health Care Education/Training Program | DX: L03.116 Cellulitis of left lower limb (principal); E11.65 Type 2 diabetes mellitus with hyperglycemia | CPT/HCPCS: 99223; 99232; 99239 ==

== ENCOUNTER 2024-03-30 22:10 | Inpatient (IN) | payer MEDICAID, SELFPAY ==
--- NOTE | ~2024-03-30 | US_ITS ---
EXAMINATION: NONINVASIVE ASSESSMENT OF THE ARTERIES OF BOTH LOWER EXTREMITIES INCLUDING BILATERAL LOWER EXTREMITY DUPLEX. CLINICAL INFORMATION: Peripheral arterial disease COMPARISON: Noninvasive arterial exam on 04/25/2023 TECHNIQUE: duplex Doppler techniques with wave form analysis and measurement of velocities in the common femoral, profunda femoral, superficial femoral, popliteal, tibial and peroneal arteries. The study was performed only at rest. FINDINGS: RIGHT LEG Common femoral artery: 202 cm/s, Multiphasic Profunda femoris artery: 81 cm/s, Multiphasic Superficial femoral artery (proximal): 116 cm/s, Multiphasic Superficial femoral artery (mid): 191 cm/s, Multiphasic Superficial femoral artery (distal): 136 cm/s, Multiphasic Proximal Popliteal artery: 133 cm/s, Multiphasic LEFT LEG: Common femoral artery: 216 cm/s, Multiphasic Profunda femoris artery: 102 cm/s, Multiphasic Superficial femoral artery (proximal): 292 cm/s, Multiphasic Superficial femoral artery (mid): 296 cm/s, Multiphasic Superficial femoral artery (distal): 119 cm/s, Multiphasic Proximal Popliteal artery: 122 cm/s, Multiphasic Mid posterior tibial artery: 70 cm/s, Multiphasic US/US arterial duplex LE BI IMPRESSION: Elevated velocities in the right common femoral artery, left common femoral artery and superficial femoral arteries suggest moderate stenosis. There is diffuse bilateral atherosclerotic disease. Electronically signed by: Melanie Jerome MD 04/01/2024 02:44 PM EDT
--- NOTE | ~2024-03-30 | XR_ITS ---
EXAMINATION: XR CHEST CLINICAL INFORMATION: Shortness of breath COMPARISON: Chest radiograph dated 02/26/2024 and CTA chest dated 08/25/2022 TECHNIQUE: Frontal view of the chest was obtained. FINDINGS: Similar appearance of intrathoracic loops of bowel projecting over the right lung base in keeping with known diaphragmatic hernia, better seen on prior chest CTA. The right lung base and is otherwise obscured due to bowel contents. The remaining lung wolf are without focal consolidation. Left basilar atelectasis. No pulmonary edema. No pneumothorax. No large pleural effusion. The cardiomediastinal silhouette is unchanged. XR/XR chest 1V IMPRESSION: 1. No acute pulmonary disease. 2. Similar appearance of intrathoracic loops of bowel projecting over the right lung base in keeping with known diaphragmatic hernia, better seen on prior chest CTA. Electronically signed by: Giselle Weller MD 03/30/2024 11:40 PM EDT
--- NOTE | ~2024-03-30 | XR_ITS ---
EXAMINATION: XR CHEST CLINICAL INFORMATION: Enteric tube placement. COMPARISON: CTA chest 03/31/2024. Chest radiograph 03/30/2024. TECHNIQUE: Frontal view of the chest was obtained. FINDINGS: Enteric tube courses into the abdomen and terminates outside of the field of view. Question the presence of an additional tubing possibly endotracheal tube, though evaluation is limited due to patient's rotation. Consolidative air space opacities in the mid and lower lungs are slightly increased. Small bilateral pleural effusions are slightly increased. No significant pneumothorax. Overall similar enlargement of the cardiomediastinal silhouette, suboptimally assessed due to rotation. No displaced osseous fractures. XR/XR chest 1V IMPRESSION: 1. Enteric tube terminates outside of the field of view. 2. Questionable endotracheal tube, though evaluation is limited due to patient's rotation. 3. Worsening pulmonary aeration with increased bilateral airspace opacities and pleural effusions. Electronically signed by: Bonnie Ge MD 03/31/2024 11:19 AM EDT
--- NOTE | ~2024-03-30 | CT_ITS ---
EXAMINATION: CT ANGIOGRAM CHEST, PE PROTOCOL CLINICAL INFORMATION: Altered mental status COMPARISON: CTA chest November 28, 2022, August 25, 2022 TECHNIQUE: Multidetector CT pulmonary angiography of the thorax was performed according to the pulmonary embolism protocol after intravenous administration of 65 mL of intravenous Omnipaque. Reformatted coronal and sagittal imaging was performed. 3-D MIP images performed at a dedicated separate workstation. This CT examination was performed using dose optimization techniques as appropriate, variously including the following: *Automated exposure control *Adjustment of mA and/or kV according to patient size (this includes techniques or standardized protocols for targeted exams where dose is matched to indication/reason for exam; i.e. extremities or head) *Use of iterative reconstruction technique DLP: 585 mGy-cm QUALITY: Overall Exam Quality: Poor. Pulmonary Arterial Enhancement: Suboptimal. Breath Hold: Adequate. Artifacts Impacting Image Quality: None. FINDINGS: VASCULAR: Heart: Normal in size. Coronary artery calcifications present. Aorta: No thoracoabdominal aortic aneurysm. Three vessel arch. Pulmonary Artery: No filling defect is identified in the central, lobar, or segmental pulmonary arterial branches to suggest pulmonary embolus. NONVASCULAR: THORAX: Thyroid Gland: The visualized thyroid gland is normal. Lymph Nodes: No supraclavicular, axillary, mediastinal or hilar lymphadenopathy is identified. Airways: The trachea and central bronchi are normal. Endotracheal tube in situ. Lungs: Diffuse bilateral multifocal consolidations, most pronounced in the right lower lobe. Pleura: No pleural effusion. No pneumothorax. Upper Abdomen: The visualized upper abdomen is unremarkable. Soft Tissues/Musculoskeletal: No acute fracture or significant focal lesion. CT/CT angio chest PE protocol IMPRESSION: 1. Suboptimal study secondary to poor arterial enhancement. No acute pulmonary embolus up to the segmental level. 2. Diffuse bilateral multifocal pneumonia. Fleischner guidelines were followed. Electronically signed by: Sunny Liz DO 03/31/2024 12:50 AM EDT
[2024-03-30 22:10] VITALS: BP 120/65; PULSE 87; O2SAT 97
[2024-03-30 22:13] VITALS: BP 127/77; PULSE 86; RESP 13; TEMP 36.9; O2SAT 90; BMI 42.9
[2024-03-30 22:19] LABS: Glucose, Whole Blood 301 mg/dL (60-115)
--- NOTE | 2024-03-30 22:19 | ECG_ITS ---
Test Reason : AMS Blood Pressure : / mmHG Vent. Rate : 090 BPM Atrial Rate : 090 BPM P-R Int : 148 ms QRS Dur : 094 ms QT Int : 426 ms P-R-T Axes : 058 -19 080 degrees QTc Int : 521 ms Normal sinus rhythm Nonspecific ST and T wave abnormality Prolonged QT Abnormal ECG When compared with ECG of 26-FEB-2024 11:58, Nonspecific T wave abnormality, worse in Lateral leads QT has lengthened Referred By: Kristin Verdugo Electronically Signed By:BERT IBARRA
--- NOTE | 2024-03-30 22:28 | ED_ITS ---
HPI - General Adult General Chief complaint: Altered Mental Status Stated complaint: infection? Time Seen by Provider: 03/30/24 22:10 Source: EMS Mode of arrival: EMS Limitations: altered mental status History of Present Illness ED Provider: Dr. Kristin Verdugo HPI narrative: Patient comes to the emergency room via ambulance from home. Patient's son called because the patient has altered mental status, and he has noted that the patient's legs have gradually been getting more red. Patient has been complaining of pain over last few days. EMS reports when they arrived, patient's oxygen saturation was in the low 80s, they gave her a nebulization treatments, patient was at wheezing. The patient's family son reports that the patient does not have history of asthma, COPD or CHF. Just in case, EMS gave the patient a neb treatment. However, patient is known to be an IV drug user. At this time, patient is unresponsive, occasionally opens her eyes to painful stimuli. Related Data Home Medications ?Medication ?Instructions ?Recorded ?Confirmed acetaminophen 500 mg tablet 2 caplet PO Q6H PRN mild pain 08/24/22 02/26/24 empagliflozin 25 mg tablet 25 mg PO DAILY 11/28/22 02/26/24 (Jardiance) insulin glargine 100 unit/mL (3 35 unit subcut BID 11/28/22 02/26/24 mL) subcutaneous pen (Lantus Solostar U-100 Insulin) atorvastatin 80 mg tablet 80 mg PO DAILY 02/26/24 02/26/24 baclofen 10 mg tablet 10 mg PO TID 02/26/24 02/26/24 dulaglutide 0.75 mg/0.5 mL 0.75 mg subcut MO 02/26/24 02/26/24 subcutaneous pen injector (Trulicity) duloxetine 30 mg capsule,delayed 30 mg PO DAILY 02/26/24 02/26/24 release methadone 10 mg/mL oral 140 mg PO DAILY 02/27/24 02/27/24 concentrate (Methadone Intensol) Previous Rx's ?Medication ?Instructions ?Recorded walker #1 ea 10/04/21 apixaban 5 mg tablet (Eliquis) 5 mg PO BID 30 days #60 tabs 09/03/22 nicotine 21 mg/24 hr daily 21 mg transdermal DAILY #14 ea 09/04/22 transdermal patch gabapentin 300 mg capsule 600 mg (2 x 300 mg) PO QID #240 05/29/23 caps loperamide 2 mg capsule 2 mg PO Q4H PRN Diarrhea #20 caps 05/29/23 alprazolam 0.5 mg tablet 0.5 mg PO BEDTIME PRN Anxiety #10 02/29/24 tabs ammonium lactate 12 % lotion 1 appl topical BID PRN Dry Skin 02/29/24 #225 grams amoxicillin 875 mg-potassium 1 tab PO BID #14 tabs 02/29/24 clavulanate 125 mg tablet doxycycline monohydrate 100 mg 100 mg PO BID #14 caps 02/29/24 capsule oxycodone 5 mg tablet 5 mg PO Q6H PRN Pain, Severe (Pain 02/29/24 Scale 7-10) #15 tabs Allergies Allergy/AdvReac Type Severity Reaction Status Date / Time prednisone [PREDNISONE] Allergy Unknown RASH Verified 03/30/24 22:43 Review of Systems 2 Review of Systems: Yes Unobtainable due to mental status PMFSH Past Medical History Medical History Hyperglycemia due to type 2 diabetes mellitus 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 Diabetic ulcer of lower leg Eschar of lower leg Peripheral arterial disease Pulmonary nodules Chronic respiratory failure Pneumonitis Obesity (BMI 35.0-39.9 without comorbidity) Acute respiratory failure with hypoxia NSTEMI (non-ST elevated myocardial infarction) Opioid use disorder Osteomyelitis Diabetes Anxiety Substance abuse Surgical History S/P amputation of foot Status post transmetatarsal amputation of right foot (09/24/21) Social History Social History Household Members: Children Household Members Other:: son Housing: Apartment Unable to assess alcohol history related to: Unable to respond Alcohol intake: never Comment: took socks off Patient Tobacco Use Status: Current everyday Tobacco user Tobacco use type: Cigarette Cigarette Packs Per Day: 0 Cigarettes Per Day: 1 Years Smoked: 40 e-Cigarette/Vaping Use: Currently Using Second Hand Smoke Exposure: No Use of substances other than those prescribed or required for medical reasons: Unable to respond Substance Use Type: Marijuana Advance Directives: Yes Advance Directives on File: Yes Advance Directives Date on File: 09/22/21 Do you have a plan to hurt others: Clear service: No Current occupational status: unemployed Physical Exam ED Vital Signs: Vital Signs - 24 hr 03/30/24 22:13 03/30/24 23:44 03/30/24 23:56 Temperature 98.5 F 98.5 F Pulse Rate 86 112 H 107 H Respiratory Rate 13 18 18 Blood Pressure 127/77 188/124 H 149/103 H Pulse Oximetry 90 L 97 95 Oxygen Delivery Method Room Air Mechanical Ventilation Fraction of Inspired Oxygen 75 75 03/30/24 23:58 03/31/24 00:00 Temperature Pulse Rate 112 H Respiratory Rate 20 Blood Pressure 156/101 H Pulse Oximetry Oxygen Delivery Method Fraction of Inspired Oxygen 75 75 BMI result Body Mass Index 42.9 Const Other: Appearance: Somnolent, minimally arousable Eyes: Pinpoint pupils, Pupils equal, round and reactive to light. ENT: Pharynx normal. Neck: Normal inspection. Neck supple. No lymph nodes noted. No crepitus CVS: Normal heart rate and rhythm. Pulses normal. Normal S1 and S2 Respiratory: No respiratory distress. Breath sounds normal. No Wheezing. No rales Abdomen: Soft and nontender. No rigidity. No distention. Skin: See lower extremities Extremities: Right BKA, there is significant erythema around the proximal part of the BKA, also there is cellulitis and desquamation of the skin of the foot on the left, open ulcer in the calf of the left leg Neuro: Minimally responsive, only wakes up to painful stimuli Psych: Minimally responsive Course Course Course Narrative: -patient's oxygen saturation is 90% on room air. Patient does not have any past medical history of asthma, COPD or CHF. -it is likely that patient overdosed with narcotics, patient does have history of IV drug use -all of patient's labs and imaging pending. -patient will be treated empirically with IV fluids based on an ideal weight of 50 kg, patient is obese. Also, patient being treated with Zosyn and vancomycin. -all of patient's imaging pending Medications Administered Generic Name Dose Route Start Last Admin Trade Name Freq PRN Reason Stop Dose Admin Propofol 1,000 mg in 100 mls @ 0 mls/hr 03/31/24 01:00 03/31/24 00:55 Diprivan IVCONT 50 mcg/kg/min .Q0M DADA 29.91 mls/hr Titration Protocol Per Protocol Discontinued Medications Generic Name Dose Route Start Last Admin Trade Name Sanfordq PRN Reason Stop Dose Admin Etomidate 20 mg 03/31/24 00:42 03/30/24 23:19 Etomidate 20 Mg/10 Ml Vial IVPUSH 03/31/24 00:43 20 mg NOW STA Administration Sodium Chloride 2,000 mls @ 999 mls/hr 03/30/24 22:21 03/30/24 22:51 Ns IVCONT 03/31/24 00:21 999 mls/hr .Q2H1M ONE Administration Vancomycin HCl 2,000 mg in 500 mls @ 250 mls/hr 03/30/24 22:21 03/30/24 23:49 Vancomycin/Ns IV 03/31/24 00:20 250 mls/hr ONCE ONE Administration Piperacillin Sod/Tazobactam 50 mls @ 100 mls/hr 03/30/24 22:21 03/30/24 23:38 Sod 3.375 gm/ Sodium Chloride IV 03/30/24 22:50 Infused ONCE ONE Infusion Iohexol 85 ml 03/31/24 00:30 03/31/24 00:30 Iohexol 350 Mg/Ml 100 Ml Infus..Btl IV 03/31/24 00:31 85 ml ONCE ONE Administration Lorazepam 2 mg 03/31/24 00:42 03/30/24 23:08 Lorazepam 2 Mg/Ml Vial IVPUSH 03/31/24 00:43 2 mg ONCE ONE Administration Naloxone HCl 0.4 mg 03/30/24 22:50 03/30/24 22:52 Naloxone Hcl 0.4 Mg/Ml Vial IVPUSH 03/30/24 22:51 0.4 mg STAT STA Administration Rocuronium [place] 50 mg 03/31/24 00:42 03/30/24 23:20 Rocuronium [place] 50 Mg/5 Ml Vial IVPUSH 03/31/24 00:43 50 mg ONCE ONE Administration Procedures Intubation Intubation Type:: Emergency Endotracheal Intubation Intubation Date:: 03/31/24 sedative: Etomidate Mg Given: 20 paralytic: Rocuronium Mg Given: 50 Laryngoscope: other (GlideScope) ET Tube Size: 7.5 ET Tube Uncuffed: No Tube Secured Depth (cm): 24 Tube Secured Location: lips Tube Placement Confirmation: visualized tube passing through cords, equal breath sounds bilaterally, no breath sounds over epigastrium and confirmation by capnometry Patient Tolerated Procedure: well and no complications Intubation Complications: none Medical Decision Making Medical Decision Making [facility] Narrative: -after all the workup was done, patient was given 0.5 mg of IV Narcan. Patient woke up immediately. Patient became very tachypneic, short of breath, oxygen saturation in the 70s. Patient is stating that she was feeling that she could not get enough air. Patient was switched to a non-rebreather 15 L. Oxygen saturation improved to the low 90s. However, patient was very tachypneic, seem to he be getting quickly fatigued from breathing, patient became minimally responsive. Patient was intubated -patient does not have history of COPD, asthma or CHF -my interpretation of chest x-ray: Abnormal looking x-ray. Per Radiology report, looks at baseline, loop of bowel overlapping. -patient is on Eliquis for previous PE, unclear if patient is compliant with her medications. Patient went for a CTA to rule out PE. My interpretation of Skin: No PE. However, patient seems to have bilateral pneumonia. Patient has already been given IV fluids based on ideal weight and vancomycin and Zosyn -my interpretation of labs: White blood cell count elevated 13.0, lactic acid 2.4, normal LFTs, normal troponin, BNP and lipase and TSH urine negative for UTI. Urine toxicology positive for methadone, fentanyl, benzodiazepines and marijuana. Of note, urinalysis was obtained prior to us given the patient 2 mg of IV lorazepam for anxiety. -I discussed the patient with Dr. Tony, patient accepted to the ICU -patient is maxed out on a propofol drip. Patient will be given a dose of IV lorazepam, patient has been accepted to the ICU. Differential Diagnosis Differential Diagnoses: The differential diagnosis associated with the presentation includes (Respiratory failure, pneumonia, pulmonary embolism, drug overdose) Admission/Observation Consideration of admission/observation: Escalation of care including admission/observation considered Lab Data [facility] Lab Attestation statement: I reviewed the patient's lab results. 03/30/24 22:32 03/30/24 22:32 Labs: Lab Results 03/30/24 03/30/24 03/30/24 Range/Units 22:15 22:32 22:40 WBC 13.0 H (4.8-10.8) X10*3/uL RBC 4.36 (4.20-5.50) X10*6/uL Hgb 12.5 (12.0-16.0) g/dl Hct 39.7 (37.0-47.0) % MCV 91.1 (80.0-98.0) fL MCH 28.7 (27.0-33.0) pg MCHC 31.5 (31.0-35.0) g/dl RDW 13.9 (11.0-16.0) % Plt Count 330 (160-400) X10*3/uL MPV 10.2 (9.4-12.3) fL Immature Gran % (Auto) 0.4 (0.0-0.4) % Neut % (Auto) 81.7 H (45-73) % Lymph % (Auto) 11.7 L (20-40) % Vernon % (Auto) 4.9 (2-11) % Eos % (Auto) 0.8 (0-4) % Baso % (Auto) 0.5 (0-2) % Lymph # (Auto) 1.5 (1.2-4.9) X10*3/uL Vernon # (Auto) 0.6 (0.1-1.2) X10*3/uL Eos # (Auto) 0.1 (0.0-0.4) X10*3/uL Baso # (Auto) 0.1 (0.0-0.2) X10*3/uL Abs Immat Gran (auto) 0.05 H (0.00-0.03) X10*3/uL Absolute Neuts (auto) 10.6 H (2.0-8.3) x10*3/uL Absolute Nucleated RBC 0.000 (0.0-0.012) X10*3/uL Nucleated RBC % (auto) 0.0 (0.0-0.2) /100WBC PT 11.4 D (11.1-13.3) SEC INR 0.9 (0.9-1.1) VBG pH (7.32-7.43) VBG pCO2 mmHg VBG pO2 mmHg VBG HCO3 (22-26) mmol/L VBG O2 Saturation % VBG Base Excess mmol/L Sodium 143 (135-145) mmol/L Potassium 3.6 (3.3-5.1) mmol/L Chloride 105 (96-108) mmol/L Carbon Dioxide 28 (22-29) mmol/L Anion Gap 14 (12-20) BUN 20 H (9-16) mg/dL Creatinine 1.13 (0.5-1.4) mg/dL Estim Creat Clear Calc 61.0 Estimated GFR 50 POC Glucose 301 H (60-115) mg/dL Random Glucose 299 H (60-115) mg/dL Lactic Acid 2.4 H* (0.5-2.0) mmol/L Calcium 9.0 (8.4-10.2) mg/dL Magnesium 1.9 (1.6-2.6) mg/dL Total Bilirubin 0.2 (0.0-1.0) mg/dL Direct Bilirubin < 0.2 (0.0-0.5) mg/dL AST 13 (5-31) U/L ALT 12 (0-31) U/L Alkaline Phosphatase 96 (39-117) U/L Ammonia 36 (13-55) umol/L Troponin I High Sens 3.8 D (<3.5-17.0) ng/L B-Natriuretic Peptide 22 (<100) pg/mL Total Protein 7.3 (6.5-8.0) g/dL Albumin 3.8 (3.5-5.0) g/dL Lipase 9 (8-78) U/L TSH 1.63 (0.32-4.0) uIU/mL Urine Color Yellow Urine Appearance Clear Urine pH 6.0 (5.0-9.0) Ur Specific Leland >= 1.030 H (1.005-1.025) Urine Protein Trace (Neg-Trace) mg/dL Urine Glucose (UA) >=1000 H (Negative) mg/dL Urine Ketones Negative (Negative) mg/dL Urine Blood Negative (Negative) Urine Nitrite Negative (Negative) Ur Leukocyte Esterase Trace H (Negative) Urine RBC 0-2 (0-2) /HPF Urine WBC 11-20 H (0-5) /HPF Ur Squamous Epith Cells 3-5 (0-2) /HPF Urine Bacteria None Seen (None Seen) Hyaline Casts 3-5 (0-2) /LPF Urine Opiates Screen Not Detected (Not Detect) Ur Buprenorphine Scrn Not Detected (Not Detect) ng/mL Ur Oxycodone Screen Not Detected (Not Detect) ng/mL Urine Methadone Screen Positive H (Not Detect) ng/mL Urine Fentanyl Screen POSITIVE H (Not Detect) Ur Barbiturates Screen Not Detected (Not Detect) Ur Phencyclidine Scrn Not Detected (Not Detect) Ur Amphetamines Screen Not Detected (Not Detect) U Benzodiazepines Scrn POSITIVE H (Not Detect) Urine Cocaine Screen Not Detected (Not Detect) U Marijuana (THC) Screen POSITIVE H (Not Detect) Ethyl Alcohol < 10 mg/dL Influenza Type A (PCR) NEGATIVE (Negative) Influenza Type B (PCR) NEGATIVE (Negative) RSV RNA Qual (PCR) NEGATIVE (Negative) SARS-CoV-2 RNA (RT-PCR) NEGATIVE (Negative) 03/30/24 Range/Units 22:47 WBC (4.8-10.8) X10*3/uL RBC (4.20-5.50) X10*6/uL Hgb (12.0-16.0) g/dl Hct (37.0-47.0) % MCV (80.0-98.0) fL MCH (27.0-33.0) pg MCHC (31.0-35.0) g/dl RDW (11.0-16.0) % Plt Count (160-400) X10*3/uL MPV (9.4-12.3) fL Immature Gran % (Auto) (0.0-0.4) % Neut % (Auto) (45-73) % Lymph % (Auto) (20-40) % Vernon % (Auto) (2-11) % Eos % (Auto) (0-4) % Baso % (Auto) (0-2) % Lymph # (Auto) (1.2-4.9) X10*3/uL Vernon # (Auto) (0.1-1.2) X10*3/uL Eos # (Auto) (0.0-0.4) X10*3/uL Baso # (Auto) (0.0-0.2) X10*3/uL Abs Immat Gran (auto) (0.00-0.03) X10*3/uL Absolute Neuts (auto) (2.0-8.3) x10*3/uL Absolute Nucleated RBC (0.0-0.012) X10*3/uL Nucleated RBC % (auto) (0.0-0.2) /100WBC PT (11.1-13.3) SEC INR (0.9-1.1) VBG pH 7.34 (7.32-7.43) VBG pCO2 54 mmHg VBG pO2 55 mmHg VBG HCO3 29 H (22-26) mmol/L VBG O2 Saturation 80.0 % VBG Base Excess 2.7 mmol/L Sodium (135-145) mmol/L Potassium (3.3-5.1) mmol/L Chloride (96-108) mmol/L Carbon Dioxide (22-29) mmol/L Anion Gap (12-20) BUN (9-16) mg/dL Creatinine (0.5-1.4) mg/dL Estim Creat Clear Calc Estimated GFR POC Glucose (60-115) mg/dL Random Glucose (60-115) mg/dL Lactic Acid (0.5-2.0) mmol/L Calcium (8.4-10.2) mg/dL Magnesium (1.6-2.6) mg/dL Total Bilirubin (0.0-1.0) mg/dL Direct Bilirubin (0.0-0.5) mg/dL AST (5-31) U/L ALT (0-31) U/L Alkaline Phosphatase (39-117) U/L Ammonia (13-55) umol/L Troponin I High Sens (<3.5-17.0) ng/L B-Natriuretic Peptide (<100) pg/mL Total Protein (6.5-8.0) g/dL Albumin (3.5-5.0) g/dL Lipase (8-78) U/L TSH (0.32-4.0) uIU/mL Urine Color Urine Appearance Urine pH (5.0-9.0) Ur Specific Leland (1.005-1.025) Urine Protein (Neg-Trace) mg/dL Urine Glucose (UA) (Negative) mg/dL Urine Ketones (Negative) mg/dL Urine Blood (Negative) Urine Nitrite (Negative) Ur Leukocyte Esterase (Negative) Urine RBC (0-2) /HPF Urine WBC (0-5) /HPF Ur Squamous Epith Cells (0-2) /HPF Urine Bacteria (None Seen) Hyaline Casts (0-2) /LPF Urine Opiates Screen (Not Detect) Ur Buprenorphine Scrn (Not Detect) ng/mL Ur Oxycodone Screen (Not Detect) ng/mL Urine Methadone Screen (Not Detect) ng/mL Urine Fentanyl Screen (Not Detect) Ur Barbiturates Screen (Not Detect) Ur Phencyclidine Scrn (Not Detect) Ur Amphetamines Screen (Not Detect) U Benzodiazepines Scrn (Not Detect) Urine Cocaine Screen (Not Detect) U Marijuana (THC) Screen (Not Detect) Ethyl Alcohol mg/dL Influenza Type A (PCR) (Negative) Influenza Type B (PCR) (Negative) RSV RNA Qual (PCR) (Negative) SARS-CoV-2 RNA (RT-PCR) (Negative) Independent Interpretation I performed an independent interpretation of an: Plain X-Ray and CT Scan Radiology Impression Discussion of test interpretation with radiology: I have reviewed the radiologist's reading. Radiologist Impression: FINDINGS: VASCULAR: Heart: Normal in size. Coronary artery calcifications present. Aorta: No thoracoabdominal aortic aneurysm. Three vessel arch. Pulmonary Artery: No filling defect is identified in the central, lobar, or segmental pulmonary arterial branches to suggest pulmonary embolus. NONVASCULAR: THORAX: Thyroid Gland: The visualized thyroid gland is normal. Lymph Nodes: No supraclavicular, axillary, mediastinal or hilar lymphadenopathy is identified. Airways: The trachea and central bronchi are normal. Endotracheal tube in situ. Lungs: Diffuse bilateral multifocal consolidations, most pronounced in the right lower lobe. Pleura: No pleural effusion. No pneumothorax. Upper Abdomen: The visualized upper abdomen is unremarkable. Soft Tissues/Musculoskeletal: No acute fracture or significant focal lesion. CT/CT angio chest PE protocol IMPRESSION: 1. Suboptimal study secondary to poor arterial enhancement. No acute pulmonary embolus up to the segmental level. 2. Diffuse bilateral multifocal pneumonia. Fleischner guidelines were followed. Independent Historian Clinical information obtained from an independent historian. History obtained from or confirmed by: EMS Critical Care Time Critical Care Time Critical Care Time: Yes Total Critical Care Time: 90 Attestation: I have personally provided critical care time. Time includes review of lab data, radiology results, discussion with consultants, and monitoring for potential decompensation. Intervention performed as documented. Discharge Plan Discharge Clinical Impression: Pneumonia, Acute hypoxic respiratory failure, Cellulitis Patient Disposition: Admitted As Inpatient Print Language: Hong Konger
[2024-03-30 22:47] LABS: MANUAL DIFF FLAG NO
[2024-03-30 22:48] LABS: Basophils Absolute Auto 0.1 X10*3/uL (0.0-0.2); Basophils Percent Auto 0.5 % (0-2); Eosinophils Absolute Auto 0.1 X10*3/uL (0.0-0.4); Eosinophils Percent Auto 0.8 % (0-4); Hematocrit 39.7 % (37.0-47.0); Hemoglobin 12.5 g/dl (12.0-16.0); Imm Gran Abs Auto 0.05 X10*3/uL (0.00-0.03); Imm Gran Pct Auto 0.4 % (0.0-0.4); Lymphocytes Absolute Auto 1.5 X10*3/uL (1.2-4.9); Lymphocytes Percent Auto 11.7 % (20-40); Mean Corpuscular HGB Conc 31.5 g/dl (31.0-35.0); Mean Corpuscular Hemoglobin 28.7 pg (27.0-33.0); Mean Corpuscular Volume 91.1 fL (80.0-98.0); Mean Platelet Volume 10.2 fL (9.4-12.3); Monocytes Absolute Auto 0.6 X10*3/uL (0.1-1.2); Monocytes Percent Auto 4.9 % (2-11); Neutrophils Absolute Auto 10.6 x10*3/uL (2.0-8.3); Neutrophils Percent Auto 81.7 % (45-73); Platelet Count 330 X10*3/uL (160-400); Red Blood Count 4.36 X10*6/uL (4.20-5.50); Red Cell Distribution Width 13.9 % (11.0-16.0)
[2024-03-30] MEDS: Piperacillin Sodium/Tazobactam 3.375 GM in 0.9 % Sodium Chloride 50 ML IV (22:49)
[2024-03-30] MEDS: 0.9 % Sodium Chloride 2,000 ML 999 ML IVCONT (22:51)
[2024-03-30 22:52] LABS: VBG Base Excess 2.7 mmol/L; VBG HCO3 29 mmol/L (22-26); VBG pCO2 54 mmHg; VBG pH 7.34 (7.32-7.43); VBG pO2 55 mmHg
[2024-03-30] MEDS: Naloxone HCl 0.4 MG/ML VIAL IVPUSH (22:52)
[2024-03-30 22:54] LABS: Venous Blood Gas Refer to POC result
[2024-03-30 22:56] LABS: Appearance Urine Clear; Color Urine Yellow; Glucose Urine UA >=1000 mg/dL (Negative); Leukocyte Esterase Urine Trace (Negative); Nitrite Urine Negative (Negative); Specific Gravity - Urine >= 1.030 (1.005-1.025); UMIC TRIGGER UACC YES; Urine Blood Negative (Negative); Urine Ketones Negative (Negative); Urine Protein Trace mg/dL (Neg-Trace)
[2024-03-30 23:01] LABS: Ammonia 36 umol/L (13-55)
[2024-03-30 23:01] LABS: Bacteria Urine None Seen (None Seen); RBC Urine 0-2 /HPF (0-2); UACC Culture Trigger YES
[2024-03-30 23:05] LABS: Amphetamine Screen Urine Not Detected (Not Detect); Barbiturates, Urine Not Detected (Not Detect); Benzodiazepines Screen Urine POSITIVE (Not Detect); Buprenorphine Scr Not Detected (Not Detect); Cannabinoid Screen Urine POSITIVE (Not Detect); Cocaine Screen Urine Not Detected (Not Detect); Fentanyl, urine POSITIVE (Not Detect); Methadone Screen, Urine Positive (Not Detect); Opiate Screen Urine Not Detected (Not Detect); Oxycodone Screen Urine Not Detected (Not Detect); Phencyclidine Screen Urine Not Detected (Not Detect)
[2024-03-30 23:07] LABS: Lactic Acid 2.4 mmol/L (0.5-2.0)
[2024-03-30 23:08] LABS: Alanine Aminotransferase 12 U/L (0-31); Albumin Level 3.8 g/dL (3.5-5.0); Alkaline Phosphatase 96 U/L (39-117); Anion Gap 14 (12-20); Aspartate Amino Transferase 13 U/L (5-31); Bilirubin Direct < 0.2 mg/dL (0.0-0.5); Bilirubin Total 0.2 mg/dL (0.0-1.0); Blood Urea Nitrogen 20 mg/dL (9-16); Carbon Dioxide 28 mmol/L (22-29); Chloride 105 mmol/L (96-108); Estimated Glomerular Filt Rate 50; Ethanol < 10 mg/dL; Glucose Random 299 mg/dL (60-115); Lipase 9 U/L (8-78); Magnesium 1.9 mg/dL (1.6-2.6); Potassium 3.6 mmol/L (3.3-5.1); Sodium 143 mmol/L (135-145); Total Protein 7.3 g/dL (6.5-8.0)
[2024-03-30] MEDS: LORazepam 2 MG/ML VIAL IVPUSH (23:08)
[2024-03-30 23:12] LABS: B Type Natriuretic Peptide 22 pg/mL (<100)
[2024-03-30 23:13] LABS: Troponin-I High Sensitivity 3.8 ng/L (<3.5-17.0)
[2024-03-30] MEDS: Etomidate 20 MG/10 ML VIAL IVPUSH (23:19)
[2024-03-30] MEDS: Rocuronium Bromide 50 MG/5 ML VIAL IVPUSH (23:20)
[2024-03-30 23:27] LABS: TSH reflex Free T4 1.63 uIU/mL (0.32-4.0)
[2024-03-30 23:29] LABS: Influenza A PCR NEGATIVE (Negative); Influenza B PCR NEGATIVE (Negative); Resp Syncy Virus RNA Qual PCR NEGATIVE (Negative); SARS COV2 PCR INHOUSE NEGATIVE (Negative)
[2024-03-30 23:30] LABS: INTERNATIONAL NORM RATIO 0.9 (0.9-1.1); Prothrombin Time 11.4 SEC (11.1-13.3)
[2024-03-30] MEDS: propofoL 1,000 MG/100 ML VIAL 17.95 MG IVCONT (23:36)
--- NOTE | 2024-03-30 23:39 | PC.NURSE ---
On arrival, pt responsiveness as documented. Access obtained, mccray placed per verbal from MD Verdugo. Pt moved to trauma room. Given 0.4 Narcan IV per verbal from MD Verdugo @ 2308, with immediate effect. Pt woke, agitated, indicated difficulty breathing, stating she was having pain all over. Pt stated she takes Methadone 40 and did this morning, but unaware of other medications she may have taken. Pt continued with agitation, MD Verdugo made aware. Prepared for intubation. Etomidate 20mg given IV @ 2319, Rocuronium 50mg given IV @ 2320. Intubation successful, 7.5, 23 @ lip. NG tube inserted by provider with audible gastric sounds. Tubes to be confirmed by imaging. Pt vitals as charted.
[2024-03-30 23:44] VITALS: BP 188/124; PULSE 112; RESP 18; TEMP 36.9; O2SAT 97
[2024-03-30] MEDS: vancomycin/NS 2,000 MG/500 ML PLAST..BAG 250 MG IV (23:49)
[2024-03-30 23:56] VITALS: BP 149/103; PULSE 107; RESP 18; O2SAT 95
[2024-03-30 23:58] VITALS: BP 188/124; PULSE 115; TEMP 32.1; O2SAT 100; O2SAT 97
[2024-03-31] VITALS (42 sets, daily range): BP systolic 71–156; BP diastolic 40–101; PULSE 62–123; RESP 12–20; TEMP 32.1–38.5; O2SAT 87–112; BMI 42.5
[2024-03-31] MEDS: iohexoL 350 MG/ML 100 ML INFUS..BTL 85 ML IV (00:30)
[2024-03-31 00:45] LABS: Reflex Lactate? Lactic Acid Added
--- OUTSIDE RECORDS SUMMARY | 2024-03-31 01:06 | XMS_ITS | Continuity of Care Document ---
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 Role Phone Not on Staff, PCP Primary Care Physician Unavail able Encounter [facility] [place] Date(s): 01/22/24 - 02/22/24 [facility] [address] [place] [id number] Attending Physician: Kimber Haynes NP Admitting Physician: Kimber Haynes NP Allergies, Adverse Reactions, Alerts Substance Reaction Severity Status predniSONE Active Medications Ampicillin/Sulbactam IVPB 3 Gm, IVPB, Every 6 hours, Maintenance, 08/23/23 10:31:00 EST Start Date: 08/23/23 Status: Ordered atorvastatin 80 mg oral tablet 1 tablet = 80 mg, By Mouth, Daily at bedtime, # 90 tablet, 0 Refills, Maintenance, 08/12/23 20:29:00 EST, Tablet, Partial fill upon patient request if the prescription is for a schedule II opioid drug. Start Date: 08/12/23 Status: Ordered baclofen 5 mg oral tablet 1 tablet = 5 mg, By Mouth, 3 times a day, # 90 tablet, 0 Refills, Maintenance, 08/23/23 10:33:00 EST, Tablet, Partial fill upon patient request if the prescription is for a schedule II opioid drug. Start Date: 08/23/23 Status: Ordered duloxetine 30 mg oral enteric coated capsule 1 capsule = 30 mg, By Mouth, Daily, # 30 capsule, 0 Refills, Maintenance, 08/12/23 20:30:00 EST, Partial fill upon patient request if the prescription is for a schedule II opioid drug. Start Date: 08/12/23 Status: Ordered Eliquis 5 mg oral tablet 1 tablet = 5 mg, By Mouth, 2 times a day, # 60 tablet, 5 Refills, Maintenance, 08/12/23 20:31:00 EST, Tablet, Partial fill upon patient request if the prescription is for a schedule II opioid drug. Start Date: 08/12/23 Status: Ordered FREESTYLE LANCETS 100 FREESTYLE LANCETS 100, USE ONE EACH BY OTHER ROUTE THREE TIMES DAILY Start Date: 08/12/23 Status: Ordered FREESTYLE LITE BLOOD GLUCOSE STRIPS FREESTYLE LITE BLOOD GLUCOSE STRIPS, USE TO TEST BLOOD SUGAR EVERY 8 HOURS Start Date: 08/12/23 Status: Ordered gabapentin 300 mg oral capsule 600 mg, By Mouth, 4 times a day, Refills 0, Maintenance, 08/23/23 10:30:00 EST, Partial fill upon patient request if the prescription is for a schedule II opioid drug. Start Date: 08/23/23 Status: Ordered hydrOXYzine pamoate 25 mg oral capsule = 25 mg, By Mouth, 3 times a day, PRN Anxiety, 0 Refills, Maintenance, 08/23/23 10:33:00 EST, Capsule, Partial fill upon patient request if the prescription is for a schedule II opioid drug. Start Date: 08/23/23 Status: Ordered insulin lispro 100 u/ml subcutaneous injection 2-10 units, Subcutaneous Injection, 3 times a day before meals, << Sliding Scale Comments >> 150 - 199 2 units Call if less than 70 200 - 249 4 units 250 - 299 6 units 300 - 349 8 units 350 - 399 10 units Call if greater than 400 <<... Start Date: 08/23/23 Status: Ordered Jardiance 25 mg oral tablet 1 tablet = 25 mg, By Mouth, Daily in AM, # 30 tablet, 0 Refills, Maintenance, 08/12/23 20:29:00 EST, Tablet, Partial fill upon patient request if the prescription is for a schedule II opioid drug. Start Date: 08/12/23 Status: Ordered Lantus Inj 0.35 mL = 35 units, Subcutaneous Injection, Daily, 0 Refills, Maintenance, 08/23/23 10:30:00 EST, Injection, Partial fill upon patient request if the prescription is for a schedule II opioid drug. Start Date: 08/23/23 Status: Ordered metFORMIN 500 mg oral tablet 1 tablet = 500 mg, By Mouth, 2 times a day, # 180 tablet, 0 Refills, Maintenance, 08/12/23 20:27:00EST, Tablet, Partial fill upon patient request if the prescription is for a schedule II opioid drug. Start Date: 08/12/23 Status: Ordered Methadone = 135 mg, By Mouth, Daily, 0 Refills, Maintenance, 08/23/23 10:32:00 EST, Tablet, Partial fill uponpatient request if the prescription is for a schedule II opioid drug. Start Date: 08/23/23 Status: Ordered MiraLax Powder 1 pack/packet = 17 Gm, By Mouth, Daily, PRN Constipation, 0 Refills, Maintenance, 08/23/23 10:33:00EST, Powder, Partial fill upon patient request if the prescription is for a schedule II opioid drug. Start Date: 08/23/23 Status: Ordered senna 187 mg oral tablet 1 tablet = 8.6 mg, By Mouth, 2 times a day, PRN Constipation, 0 Refills, Maintenance, 08/23/23 10:33:00 EST, Tablet, Partial fill upon patient request if the prescription is for a schedule II opioid drug. Start Date: 08/23/23 Status: Ordered SilvaSorb 1 applicator, Topically, Every other day, 0 Refills, Maintenance, 08/23/23 10:32:00 EST, Gel, Partial fill upon patient request if the prescription is for a schedule II opioid drug. Start Date: 08/23/23 Status: Ordered Vashe Topical Solution 475 mL, Topically, Every other day, 0 Refills, Maintenance, Solution Start Date: 08/23/23 Status: Ordered Problem List Condition Confirmation Course Effective Dates Status Health St atus Informant History of smoking Confirmed Active S/P BKA (below knee amputation) unilateral Confirmed Active History of opioid abuse Confirmed Active History of intravenous drug abuse Confirmed Active HTN (hypertension) Confirmed Active Obese class I Confirmed Active Patient Care team information Care Team Personnel Name: Bev Persaud RN Position: [facility] RN Member Role: Primary Care Nurse Name: Danial Garcia RN Position: [facility] RN Member Role: Primary Care Nurse Name: Vidhya Sylvester RN Position: S RN Member Role: Primary Care Nurse Name: Sarah Garrett RN Position: S RN Member Role: Primary Care Nurse Name: Lazara Lopez RN Position: S RN Member Role: Primary Care Nurse Name: Lisseth Mchugh RN Position: S RN Member Role: Primary Care Nurse Name: Abby Auguste RN Position: [facility] RN Member Role: Primary Care Nurse Name: Not on Staff, PCP Position: [facility] Physician (General Medicine) Member Role: PCP Name: Anu Nunn RN Position: [facility] RN Member Role: Primary Care Nurse Name: Fabienne Arthur RN Position: [facility] RN Member Role: Primary Care Nurse Care Team Related Persons Name: ADRIENNE EVANS Name: YARA KRAUS Address: [address] [address]
--- OUTSIDE RECORDS SUMMARY | 2024-03-31 01:06 | XMS_ITS | Continuity of Care Document ---
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 Phone Not on Staff, PCP Primary Care Physician Unavail able Encounter [facility] [place] Date(s): 01/23/24 - 03/07/24 [facility] [address] [place] [id number]- Encounter Diagnosis Hx of right BKA(Discharge Diagnosis) - 02/05/24 Attending Physician: Jelani CLEMENTS, Olga Sandhu Admitting Physician: Jelani CLEMENTS, Olga Sandhu Allergies, Adverse Reactions, Alerts Substance Reaction Severity [...] Confirmed Active Obese class I Confirmed Active Diagnosis Diagnosis Type Effective Dates Health Status Cl inical Service Informant Hx of right BKA Discharge Diagnosis 02/05/24 Patient Care team information Care Team Personnel Name: Bev Persaud RN Position: S RN Member Role: Primary Care Nurse Name: Danial Garcia RN Position: S RN Member Role: Primary Care Nurse Name: Vidhya Sylvester RN Position: S RN Member Role: Primary Care Nurse Name: Sarah Garrett RN Position: S RN Member Role: Primary Care Nurse Name: Lazara Lopez RN Position: [facility] RN Member Role: Primary Care Nurse Name: Lisseth Mchugh RN Position: [facility] RN Member Role: Primary Care Nurse Name: Abby Auguste RN Position: [facility] RN Member Role: Primary Care Nurse Name: Not on Staff, PCP Position: [facility] Physician (General Medicine) Member Role: PCP Name: Anu Nunn RN Position: [facility] RN Member Role: Primary Care Nurse Name: Fabienne Arthur RN Position: [facility] RN Member Role: Primary Care Nurse Care Team Related Persons Name: ADRIENNE EVANS Name: YARA KRAUS Address: [place] [address]
--- OUTSIDE RECORDS SUMMARY | 2024-03-31 01:06 | XMS_ITS | Continuity of Care Document ---
Author Organization [facility] Address [address] [place] [phone]- Care Team Providers Care Staff Counsel Name Role Phone Not on Staff, PCP Primary Care Physician Unavail able Encounter [facility] [place] Date(s): 11/14/23 - 12/14/23 [facility] [address] [place] [id number] Attending Physician: Marco Jones Admitting Physician: Marco Jones Referring Physician: AdmtrMarco Allergies, Adverse Reactions, Alerts Substance Reaction Severity [...] Care team information Care Team Personnel Name: Ana Riley RN Position: [facility] RN Member Role: Primary Care Nurse Name: Bev Persaud RN Position: [facility] RN Member Role: Primary Care Nurse Name: Danial Garcia RN Position: S RN Member Role: Primary Care Nurse Name: Vidhya Sylvester RN Position: S RN Member Role: Primary Care Nurse Name: Sarah Garrett RN Position: S RN Member Role: Primary Care Nurse Name: Lazara Lopez RN Position: [facility] RN Member Role: Primary Care Nurse Name: Lisseth Mchugh RN Position: [facility] RN Member Role: Primary Care Nurse Name: Abby Auguste RN Position: [facility] RN Member Role: Primary Care Nurse Name: Not on Staff, PCP Position: [facility] Physician (General Medicine) Member Role: PCP Name: Anu Nunn RN Position: [facility] RN Member Role: Primary Care Nurse Name: Fabienne Arthur RN Position: [facility] RN Member Role: Primary Care Nurse Care Team Related Persons Name: ADRIENNE EVANS Name: YARA KRAUS Address: [address] [address]
--- OUTSIDE RECORDS SUMMARY | 2024-03-31 01:06 | XMS_ITS | Continuity of Care Document ---
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 Attending Physician: Marco Jones Admitting Physician: Marco [...] Team Personnel Name: Bev Persaud RN Position: [facility] RN Member Role: Primary Care Nurse Name: Danial Garcia RN Position: S RN Member Role: Primary Care Nurse Name: Vidhya Sylvester RN Position: S RN Member Role: Primary Care Nurse Name: Sarah Garrett RN Position: S RN Member Role: Primary Care Nurse Name: Lazara Lopez RN Position: S RN Member Role: Primary Care Nurse Name: Lisseth Mchugh RN Position: [facility] RN Member Role: Primary Care Nurse Name: Abby Auguste RN Position: [facility] RN Member Role: Primary Care Nurse Name: Not on Staff, PCP Position: [facility] Physician (General Medicine) Member Role: PCP Name: Anu Nunn RN Position: [facility] RN Member Role: Primary Care Nurse Name: Fabienne Arthur RN Position: [facility] RN Member Role: Primary Care Nurse Care Team Related Persons Name: ADRIENNE EVANS Name: YARA KRAUS Address: [address] [address]
--- OUTSIDE RECORDS SUMMARY | 2024-03-31 01:07 | XMS_ITS | Continuity of Care Document ---
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 Phone Not on Staff, PCP Primary Care Physician Unavail able [place] [facility] [place] 01/22/24 - 02/21/24 [facility] [address] [place] [id number] Allergies, Adverse Reactions, Alerts Substance Reaction Severity [...] Team Personnel Name: Bev Persaud RN Position: [facility] RN Member Role: Primary Care [...] Care Nurse Name: Abby Auguste RN Position: S RN Member Role: Primary Care Nurse Name: Not on Staff, PCP Position: [facility] Physician (General Medicine) Member Role: PCP Name: Anu Nunn RN Position: [facility] RN Member Role: Primary Care Nurse Name: Fabienne Arthur RN Position: [facility] RN Member Role: Primary Care Nurse Care Team Related Persons Name: ADRIENNE EVANS Name: YARA KRAUS Address: [place] [address]
--- OUTSIDE RECORDS SUMMARY | 2024-03-31 01:07 | XMS_ITS | Continuity of Care Document ---
Author Organization [facility] Address [address] [place] [id number] Care Team Providers Care Assisted Living Coordinator Name Role Phone Not on Staff, PCP Primary Care Physician Unavail able Encounter [facility] [place] Date(s): 08/12/23 - 08/24/[address] [id number]- Discharge Disposition: A-Transfer SNF Attending Physician: Phani QUINN, Dayo Bustos Admitting Physician: Burton Blum MD Referring Physician: Not on Staff, Referring MD Allergies, Adverse Reactions, Alerts Substance Reaction Severity Status predniSONE Active Medications ALPRAZolam 0.5 mg oral tablet 0.5 mg, By Mouth, Daily, PRN, for 3 days, # 3 tablet, Refills 0, Tot. Refills 0, Acute 08/26/23 10:35:00 EST, Anxiety, 08/23/23 10:35:00 EST, Print Requisition, Partial fill upon patient request if the prescription is for a schedule II opioid drug. Start Date: 08/23/23 Stop Date: 08/26/23 Status: Ordered Ampicillin/Sulbactam IVPB 3 Gm, IVPB, Every 6 [...] opioid drug. Start Date: 08/23/23 Status: Ordered Baclofen 5 mg/mL Suspension 5 mg, Liquid, By Mouth, 08/24/23 15:00:00 EST Start Date: 08/24/23 Stop Date: 08/24/23 Status: Completed duloxetine 30 mg oral enteric coated capsule [...] opioid drug. Start Date: 08/23/23 Status: Ordered gabapentin 300 mg oral capsule 600 mg, Capsule, By Mouth, 08/24/23 17:00:00 EST Start Date: 08/24/23 Stop Date: 08/24/23 Status: Completed hydrOXYzine pamoate 25 mg oral capsule = [...] opioid drug. Start Date: 08/23/23 Status: Ordered oxyCODONE 10 mg oral tablet = 30 mg, By Mouth, Every 4 hours, PRN Pain , Severe, for 3 days, hold for oversedation, # 54 tablet, 0 Refills, Acute 08/26/23 10:34:00 EST, 08/23/23 10:34:00 EST, Tablet, Partial fill upon patient request if the prescription is for a schedule II opio... Start Date: 08/23/23 Stop Date: 08/26/23 Status: Ordered oxyCODONE 5 mg oral tablet 30 mg, Tablet, By Mouth, Every 4 hours, Hold for: oversedation, RR <12, PRN for Pain , Severe, Routine, 08/13/23 2:27:00 EST Start Date: 08/13/23 Stop Date: 08/25/23 Status: Discontinued senna 187 mg oral tablet 1 tablet [...] Confirmed Active Obese class I Confirmed Active Results Orders for Microbiology Reports Name Date Blood Culture 08/15/23 Blood Culture #2 08/15/23 Blood Culture 08/12/23 Blood Culture #2 08/12/23 Microbiology Reports TEST:Blood Culture STATUS:Auth (Verified) BODY SITE: SOURCE:Blood COLLECTED DATE/TIME:08/15/23 2:25 AM Blood Culture SPECIMEN DESCRIPTION : BLOOD L ARM SPECIAL REQUESTS : NONE CULTURE : NO GROWTH 5 DAYS. REPORT STATUS : FINAL 08/20/2023 TEST:Blood Culture, Second Order STATUS:Auth (Verified) BODY SITE: SOURCE:Blood COLLECTED DATE/TIME:08/15/23 2:25 AM Blood Culture, Second Order SPECIMEN DESCRIPTION : BLOOD R ARM SPECIAL REQUESTS : NONE CULTURE : NO GROWTH 5 DAYS. REPORT STATUS : FINAL 08/20/2023 TEST:Blood Culture STATUS:Auth (Verified) BODY SITE: SOURCE:Blood COLLECTED DATE/TIME:08/12/23 10:28 AM Blood Culture SPECIMEN DESCRIPTION : BLOOD RIGHT AC SPECIAL REQUESTS : CRITICAL VALUE CALLED AND VERIFIED BY READBACK FOR: GPC AND GNR AND PCR TO [id number], SICU, 08/13 AT 0107 BY TECH [id number] CULTURE : PROTEUS MIRABILIS This isolate was identified using Maldi-TOF system FOR SUSCEPTIBILITY RESULT REFER TO BLOOD CULTURE STAPHYLOCOCCUS AUREUS. This isolate was identified using Maldi-TOF system FOR SUSCEPTIBILITY RESULT REFER TO BLOOD CULTURE STREPTOCOCCUS AGALACTIAE SERO GROUP B This isolate was identified using Maldi-TOF system These AST results were performed on the Microscan ID and AST system Proteus species was identified by multiplex PCR. Group B beta Hemolytic Strep was identified by multiplex PCR. REPORT STATUS : FINAL 08/16/2023 ORGANISM STREPTOCOCCUS AGALACTIAE SERO GROUP B This isolate was identified using Maldi-TOF system These AST results were performed on the Microscan ID and AST system METHOD MIN. INHIB. CONC. (MCG/ML) CLINDAMYCIN SUSCEPTIBLE ERYTHROMYCIN SUSCEPTIBLE PENICILLIN SUSCEPTIBLE TEST:Blood Culture, Second Order STATUS:Auth (Verified) BODY SITE: SOURCE:Blood COLLECTED DATE/TIME:08/12/23 10:28 AM Blood Culture, Second Order SPECIMEN DESCRIPTION : BLOOD LEFT HAND SPECIAL REQUESTS : NONE CULTURE : PROTEUS MIRABILIS This isolate was identified using Maldi-TOF system These AST results were performed on the Vitek 2 ID and AST system ENTEROCOCCUS FAECALIS This isolate was identified using Maldi-TOF system These AST results were performed on the Vitek 2 ID and AST system STAPHYLOCOCCUS AUREUS. This isolate was identified using Maldi-TOF system These AST results were performed on the Vitek 2 ID and AST system Proteus species was identified by multiplex PCR. Enterococcus faecalis was identified by multi-plex PCR S. aureus was identified by multiplex PCR. mecA NOT detected. The absence of the mecA gene is associated with susceptibility to methicillin (MSSA). REPORT STATUS : FINAL 08/16/2023 ORGANISM PROTEUS MIRABILIS This isolate was identified using Maldi-TOF system These AST results were performed on the Vitek 2 ID and AST system METHOD MIN. INHIB. CONC. (MCG/ML) AMPICILLIN SUSCEPTIBLE AMPICILLIN/SULBACTAM SUSCEPTIBLE CEFEPIME SUSCEPTIBLE CEFTRIAXONE SUSCEPTIBLE CIPROFLOXACIN SUSCEPTIBLE ERTAPENEM SUSCEPTIBLE GENTAMICIN SUSCEPTIBLE LEVOFLOXACIN SUSCEPTIBLE PIPERACILLIN/TAZOBAC SUSCEPTIBLE TRIMETH/SULFAMETHOX RESISTANT ORGANISM ENTEROCOCCUS FAECALIS This isolate was identified using Maldi-TOF system These AST results were performed on the Vitek 2 ID and AST system METHOD MIN. INHIB. CONC. (MCG/ML) AMPICILLIN SUSCEPTIBLE VANCOMYCIN SUSCEPTIBLE GENTAMICIN SYNERGY SUSCEPTIBLE STREPTOMYCIN SYNERGY SUSCEPTIBLE ORGANISM STAPHYLOCOCCUS AUREUS. This isolate was identified using Maldi-TOF system These AST results were performed on the Vitek 2 ID and AST system METHOD MIN. INHIB. CONC. (MCG/ML) CIPROFLOXACIN SUSCEPTIBLE CLINDAMYCIN RESISTANT ERYTHROMYCIN RESISTANT LEVOFLOXACIN SUSCEPTIBLE OXACILLIN SUSCEPTIBLE RIFAMPIN SUSCEPTIBLE RIFAMPIN RIFAMPIN SHOULD NOT BE USED ALONE FOR ANTIMICROBIAL RIFAMPIN THERAPY. TETRACYCLINE RESISTANT TRIMETH/SULFAMETHOX SUSCEPTIBLE VANCOMYCIN SUSCEPTIBLE Radiology Reports * Exam Date Time Procedure Performing Provider Status 08/13/23 12:08 AM Chest Portable Leda Swift; Auth (Verified) Notes: (Chest Portable) Reason For Exam: Post op; infection?;Other: RESULT: Chest Portable Examination: Portable chest performed on 08/13/2023 at 12:04 AM. History: Postop Findings: A frontal view the chest is compared to a prior study dated 06/12/2024. The cardiac silhouette is within normal limits for size. Opacity at the right lung base is stable. There is left basilar atelectasis. The osseous structures are unremarkable. IMPRESSION: There is no change from the prior study. WSN: [id number] Ordering Physician: Eliezer Avila Dictated By: Violeta Koenig MD Dictated Date/Time: 08/13/23 0:21 am Reviewed By: Violeta Koenig MD Signed By: Violeta Koenig MD Signed Date/Time: 08/13/23 0:21 am Transcribed By: CAL Transcribed Date/Time: 08/13/23 0:20 am * Exam Date Time Procedure Performing Provider Status 08/12/23 11:28 AM Foot Min 3 Views Right Kalina Godinez; Auth (Verified) Notes: (Foot Min 3 Views Right) Reason For Exam: nec fasc vs osteo;Pain RESULT: Foot Min 3 Views Right Foot Min 3 Views Right, 3 views Hx of Present Illness: see TUNG 1 Sheet; Reason: Pain; nec fasc vs osteo; Clinical Question(s): Osteomyelitis COMPARISON: Right tibia and fibula radiographs of the same date. FINDINGS: Bone mineralization is diffusely diminished. The patient is status post transmetatarsal amputation.No definite osseous erosion or periosteal reaction is apparent. There is mild degenerative change in the TMT joints. No other arthritic change is apparent. No foreign body or soft tissue gas is present. There is some dorsal soft tissue swelling. IMPRESSION: Status post transmetatarsal amputation. Diffuse but inhomogeneous osteopenia without specific radiographic evidence of osteomyelitis. Dorsal soft tissue swelling. No evidence of soft tissue gas or foreign body. If there is continuing clinical suspicion for osteomyelitis, a MRI examination would provide a moresensitive study. WSN: [id number] Ordering Physician: Jacinta Cordero MD Dictated By: Arnoldo Pereira MD Dictated Date/Time: 08/12/23 12:00 p Reviewed By: Arnoldo Pereira MD Signed By: Arnoldo Pereira MD Signed Date/Time: 08/12/23 12:00 pm Transcribed By: CAL Transcribed Date/Time: 08/12/23 11:58 am * Exam Date Time Procedure Performing Provider Status 08/12/23 11:28 AM Tibia/Fibula 2 Views Right Isabel Godinez; Lorenza (Verified) Notes: (Tibia/Fibula 2 Views Right) Reason For Exam: Pain RESULT: Tibia/Fibula 2 Views Right Tibia/Fibula 2 Views Right INDICATION: Right foot infection, sepsis. Concern for osteomyelitis. COMPARISON: None. FINDINGS: Status post right foot amputation distal to the tarsal bones. Diffuse degenerative changes throughout the tarsal joints. There are interspersed cortical irregularities and areas of lucency throughout. There is a tract of lucency in the anterior remaining foot which extends from the surface of the skin to the underlying bone. Mild tricompartmental osteoarthritis of the knee. No loose body. Irregular lucency along the lateral aspect of the lower extremity which may represent soft tissue injury. Edema throughout the leg and foot. IMPRESSION: 1. There is a tract of lucency in the anterior amputated foot extending from the skin surface to the underlying bone, likely area of soft tissue injury. There are interspersed cortical irregularitiesand areas of lucency throughout the tarsal bones. These findings are concerning for osteomyelitis. MRI is recommended for further evaluation. 2. Soft tissue irregularities along the anterior and plantar aspect of the foot, concerning for diffuse soft tissue injury. Soft tissue swelling and edema throughout the foot concerning for infectious/inflammatory process such as cellulitis. 3. Irregular lucency along the lateral aspect of the lower extremity which may represent soft tissue injury. 4. Edema throughout the leg and foot. I have personally reviewed the images and I agree with this report. WSN: [id number] Ordering Physician: Jacinta Cordero MD Dictated By: Ja Zamora MD Dictated Date/Time: 08/12/23 12:07 p Reviewed By: Lizzette Saucedo MD Signed By: Lizzette Saucedo MD Signed Date/Time: 08/12/23 12:12 pm Transcribed By: CAL Transcribed Date/Time: 08/12/23 12:04 pm * Exam Date Time Procedure Performing Provider Status 08/12/23 11:28 AM Chest Portable Isabel Godinez; Auth (Verified) Notes: (Chest Portable) Reason For Exam: Cough RESULT: Chest Portable Chest Portable INDICATION: Cough. COMPARISON: None. FINDINGS: LINES AND TUBES: None. LUNGS AND PLEURA: Low lung volumes. Ground glass opacification throughout the right mid/lower lung region with sharp demarcation from the normal well aerated upper lung. Elevation of the left hemidiaphragm. No pneumothorax. HEART, MEDIASTINUM AND UBALDO: Heart borders obscured by elevated hemidiaphragm. There are a few lobular regions of air under the left hemidiaphragm which may represent the large bowel but underlying large hiatal hernia obscuring the heart could also be considered. BONES AND SOFT TISSUES: No acute abnormality. IMPRESSION: 1. Ground glass opacification throughout the right mid/lower lung region with sharp demarcation from the normal well aerated upper lung. Findings may represent atelectasis with partial collapse of the middle and/or lower lobe(s). CT is recommended for further evaluation. 2. Elevation of the left hemidiaphragm with obscuring of the heart by a few lobular regions of air under the left hemidiaphragm. Findings likely represent the large bowel at the splenic flexure; however, hiatal hernia could also be considered. CT could also assess for hiatal hernia. I have personally reviewed the images and I agree with this report. WSN: [id number] Ordering Physician: Jacinta Cordero MD Dictated By: Ja Zamora MD Dictated Date/Time: 08/12/23 12:02 p Reviewed By: Lizzette Saucedo MD Signed By: Lizzette Saucedo MD Signed Date/Time: 08/12/23 12:07 pm Transcribed By: CAL Transcribed Date/Time: 08/12/23 11:50 am Vital Signs Most recent to oldest [Reference Range]: 1 2 3 Height 167 cm (08/24/23 12:23 PM) 167 cm (08/24/23 6:33 AM) 167 cm (08/23/23 9:00 PM) Weight 89.6 kg (08/24/23 7:41 AM) 88 kg (08/23/23 5:26 AM) 90.8 kg (08/22/23 6:32 AM) Oxygen Saturation [94-100 %] 97 % (08/24/23 12:23 PM) 97 % (08/24/23 6:33 AM) 94 % (08/23/23 9:00 PM) Pulse Rate [55-90 bpm] 90 bpm (08/24/23 12:23 PM) 83 bpm (08/24/23 6:33 AM) 90 bpm (08/23/23 9:00 PM) Body Mass Index [18.5-24.99 kg/m2] 32.63 kg/m2 *>HHI* (08/22/23 5:30 AM) 29.65 kg/m2 *H* (08/14/23 10:41 AM) 29.65 kg/m2 *H* (08/13/23 1:09 AM) Blood Pressure [90-138/55-84 mm Hg] 111/63mm Hg (08/24/23 12:23 PM) 114/68mm Hg (08/24/23 6:33 AM) 118/82mm Hg (08/23/23 9:00 PM) Respiratory Rate [16-30 br/min] 18 br/min (08/24/23 3:48 PM) 19 br/min (08/24/23 3:38 PM) 18 br/min (08/24/23 3:38 PM) Temperature [96.8-100.4 DegF] 98.0 DegF (08/24/23 12:23 PM) 97.7 DegF (08/24/23 6:33 AM) 97.9 DegF (08/23/23 9:00 PM) Liters per Minute 1 L/min (08/13/23 3:00 AM) 1 L/min (08/13/23 2:03 AM) 3 L/min (08/13/23 1:13 AM) Mode of Delivery (Oxygen) Room air (08/24/23 12:23 PM) Room air (08/24/23 6:33 AM) Room air (08/23/23 9:00 PM) Blood pressure sites Arm, left (08/24/23 12:23 PM) Arm, left (08/24/23 6:33 AM) Arm, left (08/23/23 9:00 PM) Temperature Route Oral (08/24/23 12:23 PM) Oral (08/24/23 6:33 AM) Oral (08/23/23 9:00 PM) Dry Weight 89.6 kg (08/24/23 7:41 AM) 82.7 kg (08/13/23 1:09 AM) 75 kg (08/12/23 9:25 PM) Weight Obtained Via Bed scale (08/24/23 7:41 AM) Bed scale (08/23/23 5:26 AM) Bed scale (08/22/23 5:30 AM) Dry Weight Obtained Via Bed scale (08/24/23 7:41 AM) Bed scale (08/13/23 1:09 AM) Note * Phani QUINN, Dayo Bustos: PERFORM, MODIFY Event Display: Discharge/Transfer Note Hospital Authored Date: [id number] Patient: ??DIMPLE SIDDIQUI ? Age:??53 Years?Sex:??Female?:??1970?? Patient Information Discharge Location: S2 Primary Care Physician: Not on Staff, PCP Admit Date/Time: 08/12/23 14:16 Discharge Disposition Discharge Disposition: ?? Discharge Diagnosis S/P BKA (below knee amputation) unilateral (Z89.519) Diabetic foot infection (E11.628) History of intravenous drug abuse (F19.11) History of smoking (Z87.891) History of opioid abuse (F11.11) HTN (hypertension) (I10) Sepsis (A41.9) Septic shock (R65.21) DKA (diabetic ketoacidosis) (E11.10) Anemia (D64.9) Cellulitis of left lower extremity (L03.116) Acute lactic acidosis (E87.21) Severe sepsis with septic shock (R65.21) Benzodiazepine dependence (F13.20) Anxiety (F41.9) History of pulmonary embolism (Z86.711) BERNABE (acute kidney injury) (N17.9) Atelectasis (J98.11) Bacteremia (R78.81) Cellulitis of leg (L03.119) Diabetic neuropathy (E11.40) Electrolyte imbalance (E87.8) Encephalopathy (G93.40) Gangrene (I96) Hemorrhagic shock (R57.8) High anion gap metabolic acidosis (E87.29) Lactic acidosis (E87.20) Pain (R52) Prolonged QT interval (R94.31) T2DM (type 2 diabetes mellitus) (E11.9) Toxic metabolic encephalopathy (G92.8) ?? _ Discharge Medications Alprazolam (ALPRAZolam 0.5 mg oral tablet)?0.5?Milligram?By Mouth?Daily?as needed?for 3?Days?Anxiety Ampicillin-Sulbactam (Ampicillin/Sulbactam IVPB)?3?gram?IVPB?Every 6 hours apixaban (Eliquis 5 mg oral tablet)?1?tab(s)?5?Milligram?By Mouth?2 times a day Atorvastatin (atorvastatin 80 mg oral tablet)?1?tab(s)?80?Milligram?By Mouth?Daily at bedtime Baclofen (baclofen 5 mg oral tablet)?1?tab(s)?5?Milligram?By Mouth?3 times a day Duloxetine (duloxetine 30 mg oral enteric coated capsule)?1?capsule?30?Milligram?By Mouth?Daily Emollients, Topical (Vashe Topical Solution)?475?Milliliter?Topically?Every other day empagliflozin (Jardiance 25 mg oral tablet)?1?tab(s)?25?Milligram?By Mouth?Daily in AM Gabapentin (gabapentin 300 mg oral capsule)?600?Milligram?By Mouth?4 times a day HydrOXYzine (hydrOXYzine pamoate 25 mg oral capsule)?25?Milligram?By Mouth?3 times a day?as needed?Anxiety Insulin Glargine (Lantus Inj)?0.35?Milliliter?35?unit(s)?Subcutaneous Injection?Daily Insulin Lispro (insulin lispro 100 u/ml subcutaneous injection)?2-10 units?Subcutaneous Injection?3 times a day before meals?<< Sliding Scale Comments >>150 - 199 ?? 2 units Call if less than [id number] - 249 ?? 4 units 250 - 299 ?? 6 units 300 - 349 ?? 8 units 350 - 399 ?? 10 units Call if greater than 400<< Sliding Scale Comments >> Metformin (metFORMIN 500 mg oral tablet)?1?tab(s)?500?Milligram?By Mouth?2 times a day Methadone?135?Milligram?By Mouth?Daily Miscellaneous Rx (FREESTYLE LITE BLOOD GLUCOSE STRIPS)?USE TO TEST BLOOD SUGAR EVERY 8 HOURS Miscellaneous Rx (FREESTYLE LANCETS 100)?USE ONE EACH BY OTHER ROUTE THREE TIMES DAILY Oxycodone (oxyCODONE 10 mg oral tablet)?30?Milligram?By Mouth?Every 4 hours?as needed?Pain , Severe?for 3?Days?hold for oversedation Polyethylene Glycol 3350 (MiraLax Powder)?1?pack/packet?17?gram?By Mouth?Daily?as needed?Constipation Senna (senna 187 mg oral tablet)?1?tab(s)?8.6?Milligram?By Mouth?2 times a day?as needed?Constipation silver topical (SilvaSorb)?1?applicator?Topically?Every other day ? Medications Started lispro unasyn methadone silvasorb vashe aprazolam oxycodone baclofen senna miralax Medications Discontinued lisinopril insulin aspart Doses Changed lantus PCP Follow-Up/Heads-Up please adjust insulin dosing as necessary please review for recommencement of lisinopril please ensure that patient completes course of IV abx as outlined below and that midline is removedon completion would wean oxycodone as pain improves please also consider referral to outpatient pain management please ensure that patient follows up with vascular surgery and remains non weightbearing on her RLE until cleared by the surgical team Future Appointments Monday 2:30 PM EST ?? With: Hao VERNON, Zev Lai Where: [facility] [address] [place] [address]- Status: Pending Objective Assessment and Plan Assessment:??53-year-old lady with PMH of insulin-dependent T2DM; multiple LE amputations in the past; polysubstance abuse (former smoker quit 2 months [employer]; former IV drug user, quit 2 years ago following suicide attempt); CVA following overdose; presented; presented with right diabetic foot, gangrene, DKA; s/p right BKA 16, was in septic shock requiring pressor support which improved and downgraded to [facility] medicine service 08/12 and downgrade to acute floor on 08/13. Status post revision on 08/14. She was seen by APS who adjusted her pain regimen, she is stable off of IV pain meds. She has a midline and has been recommended for rehab. ? Sepsis (A41.9): . Septic shock (R65.21): . Hemorrhagic shock (R57.8): . Severe sepsis with septic shock (R65.21): Resolved Cellulitis of left lower extremity (L03.116): . Bacteremia (R78.81): Blood cultures drawn on 08/12/2023 Proteus mirabilis, Staph aureus methicillin sensitive, Enterococcus faecalis Appreciate ID input: DC IV vancomycin, ceftriaxone; switched to IV Unasyn 08/15 TTE showing no evidence of IE, discussed with ID, hold off on LAZARO unless repeat cultures positive Blood cultures 08/15 finalized negative Has SL midline ??-Continue current antibiotic ??-Plan is 2 weeks treatment with start date 08/15 ? OPAT Script (per Dr. Grady, 08/17) ? Indication/s: Polymicrobial bacteremia ??Antimicrobial/s: Ampicillin/sulbactam 3 g IV every 6 hours ??Planned duration: 2 weeks ??Start date: 08/15 ??End date: 08/28 ??Vascular access: Single-lumen midline ??Monitoring labs (test/frequency): Weekly CBC, CMP ??Imaging needed before outpt f/u visit: No ??Suggested outpt f/u visit: No ? Diabetic foot infection (E11.628): . Gangrene (I96): . Pain (R52): . S/P BKA (below knee amputation) unilateral (Z89.519): Patient presented with right foot infection S/p BKA on 08/12/2023 evening by vascular surgery; continue to follow vascular surgery recommendation Revision R BKA 08/14 by surgery Seen for postop check 08/19, vascular is satisfied with the wound and has signed off Vascular recs as follows: ??- [place] to remain in place to RLE ??- Nonweight bearing on the right lower extremity until cleared by vascular surgery outpatient ??- PT/OT eval ??- Vascular will set up 4 week follow up for suture removal ??- can continue DSD for cushioning under stump sock which can be changed by RN daily ??- [employer] [facility] clinic will contact patient regarding prosthetic after cleared for weight bearing ?-APS consulted, have titrated oxycodone to 30 q4 and discontinued dilaudid in anticipation of DC ??-Can downtitrate as tolerated at facility as her pain improves ??-Continue Tylenol [id number] ??-Continue home dose methadone ??-Have resumed home dose gabapentin 600 4x daily and home duloxetine ??-Added on baclofen per APS recs (5mg TID) ??-Hold on NSAID (Eliquis) -please continue to coordinate with methadone clinic and consider referral to outpatient pain management clinic ? Anemia (D64.9): Acute on chronic anemia; hemoglobin dropped to 7.2; s/p 1 unit PRBC CBC has since remained stable ?? HTN (hypertension) (I10): Blood pressure in the normal range Hold home lisinopril for now, consider resumption as outpatient ? History of intravenous drug abuse (F19.11): . History of smoking (Z87.891): . History of opioid abuse (F11.11): Former IV drug use, per chart quit 2 years ago following suicide attempt Patient is now back on prior methadone dose of 135mg daily ? Diabetic neuropathy (E11.40): . DKA (diabetic ketoacidosis) (E11.10): Resolved T2DM (type 2 diabetes mellitus) (E11.9): ??- Continue Lantus 35 units daily; insulin sliding scale; POC glucose checks, diabetic diet ??- On gabapentin and duloxetine ? Acute lactic acidosis (E87.21): Resolved High anion gap metabolic acidosis (E87.29): Resolved ? BERNABE (acute kidney injury) (N17.9): Resolved ? Electrolyte imbalance (E87.8): resolved with repletion ? Encephalopathy (G93.40): Resolved ? Prolonged QT interval (R94.31): Resolved, repeat EKG stable ? Benzodiazepine dependence (F13.20): Patient with history of high dose benzodiazepine dependence, has come down to much lower dose Anxiety (F41.9): However she is reporting significant anxiety -Psych consulted, recs appreciated: ??-Hold off on SSRI per patient preference ??-Continue benzodiazepine at current dose without modification ??-Start Vistaril as needed ? History of pulmonary embolism (Z86.711): continue apixaban ?? Code Status: Full ? Order Code Status: Code Status Ordered ?? Expected rehab stay <30 days ? Vital Signs?? Temperature: 98 DegF (08/24/23 12:23:00) Temperature Route: Oral (08/24/23 12:23:00) Pulse Rate: 90 bpm (08/24/23 12:23:00) Respiratory Rate: 18 br/min (08/24/23 12:24:00) Respiratory Rate: 18 br/min (08/24/23 12:24:00) Systolic Blood Pressure: 111 mm Hg (08/24/23 12:23:00) Diastolic Blood Pressure: 63 mm Hg (08/24/23 12:23:00) Blood pressure sites: Arm, left (08/24/23 12:23:00) Mean Arterial Pressure: 79 mm Hg (08/24/23 12:23:00) Pulse Pressure: 48 mm Hg (08/24/23 12:23:00) Oxygen Saturation: 97 % (08/24/23 12:23:00) Mode of Delivery (Oxygen): Room air (08/24/23 12:23:00) Early Warning Score: 0 (08/24/23 13:05:54) ? . Physical Exam Gen: comfortable, well: HEENT: normocephalic, atraumatic Chest: CTA, no wheeze/crackles CVS: no M/G/R, no JVD Abdo: soft, non-tender Ext: no oedema, s/p R BKA with dressing in situ Neuro: A+Ox3 Psych: WNL Surgical Procedures Amputation Below Knee 08/12/2023 18:09 Amputation Below Knee 08/14/2023 11:32 Patient Education Titles Ampicillin/Sulbactam Injectable Solution?? BVS-Below Knee Amputation Discharge Instructions?? Methadone Oral Solution?? Follow-Up Appointments Added Follow Up ?Time Frame ?Comments Leandro Ramirez MD?Only if Needed.?office will call you to arrange follow up??in 4-5 weeks but if you have questions before that time our number is mentioned above Home Health Face to Face ^[facility] Results Discharge Labs BLOOD BANK Blood Type O Positive ()?? 08/18/2023 07:07 Antibody Screen Negative ()?? 08/18/2023 07:07 RBC Unit ID [id number] ()?? 08/12/2023 10:19 RBC Available RE ()?? 08/12/2023 10:19 ?? BLOOD COUNT & DIFF WBC 7.6 k/mm3 ()?? 08/19/2023 06:20 RBC 2.84 m/mm3 (Low)?? 08/19/2023 06:20 Hgb 7.6 Gm/dL (Low)?? 08/19/2023 06:20 Hct 25.5 % (Low)?? 08/19/2023 06:20 MCV 89.8 femtoliters ()?? 08/19/2023 06:20 MCH 26.8 pg (Low)?? 08/19/2023 06:20 MCHC 29.8 g/dL (Low)?? 08/19/2023 06:20 Platelet Count 497 k/mm3 (High)?? 08/19/2023 06:20 RDW-SD 56.2 femtoliters (High)?? 08/19/2023 06:20 MPV 8.8 femtoliters (Low)?? 08/19/2023 06:20 Nucleated RBC (Automated) 0.3 #/100 WBC'S ()?? 08/19/2023 06:20 Abs. NRBC 0.0 k/mm3 ()?? 08/19/2023 06:20 Abs. Neut 5.6 k/mm3 ()?? 08/16/2023 01:08 Abs. Lymph 2.8 k/mm3 ()?? 08/16/2023 01:08 Abs. Brantley 0.6 k/mm3 ()?? 08/16/2023 01:08 Abs. Eo 0.1 k/mm3 ()?? 08/16/2023 01:08 Abs. Baso 0.1 k/mm3 ()?? 08/16/2023 01:08 Neut % 59.6 % ()?? 08/16/2023 01:08 Lymph % 30.0 % ()?? 08/16/2023 01:08 Brantley % 5.9 % ()?? 08/16/2023 01:08 Eos % 1.2 % ()?? 08/16/2023 01:08 Baso % 0.8 % ()?? 08/16/2023 01:08 Hemoglobin (POC) POC Cartridge 7.5 Gm/dL (Low)?? 08/12/2023 20:34 Hematocrit (POC) POC Cartridge 22 % (Low)?? 08/12/2023 20:34 Imm Gran 2.5 % ()?? 08/16/2023 01:08 Abs. Imm Gran 0.2 k/mm3 ()?? 08/16/2023 01:08 ?? BLOOD GAS pH (POC) POC Cartridge 7.36 ()?? 08/12/2023 20:34 pCO2 (POC) POC Cartridge 37.6 mm Hg ()?? 08/12/2023 20:34 pO2 (POC) POC Cartridge 116 mm Hg (High)?? 08/12/2023 20:34 Estimated Bicarbonate (POC) POC Cart 21.1 mmol/L (Low)?? 08/12/2023 20:34 % O2 Sat Arterial (POC) POC Cartridge 98 % ()?? 08/12/2023 20:34 Lactate, (POC) POC Cartridge 0.8 mmol/L ()?? 08/12/2023 20:38 pH Venous (POC) POC Cartridge 7.40 ()?? 08/12/2023 10:21 pCO2 Venous (POC) POC Cartridge 32.4 mm Hg (Low)?? 08/12/2023 10:21 pO2 Venous (POC) POC Cartridge 15 mm Hg (Low)?? 08/12/2023 10:21 Est Bicarbonate (POC) POC Cartridge 20.2 mmol/L (Low)?? 08/12/2023 10:21 % O2 Sat Venous (POC) POC Cartridge 20 ()?? 08/12/2023 10:21 Base Excess (POC) POC Cartridge NEGATIVE 4 ()?? 08/12/2023 20:34 Specimen Type - Blood Gas ARTERIAL ()?? 08/12/2023 20:34 pH, Venous 7.35 ()?? 08/12/2023 10:28 ?? CARDIAC CK, Total 33 units/L ()?? 08/12/2023 19:46 High Sensitivity Troponin (HSTnT) 27 ng/L (High)?? 08/12/2023 21:00 ?? CHEM GENERAL Sodium 134 mmol/L ()?? 08/19/2023 06:20 Potassium 4.5 mmol/L ()?? 08/19/2023 06:20 Chloride 99 mmol/L ()?? 08/19/2023 06:20 Bicarbonate Level 24 mmol/L ()?? 08/19/2023 06:20 Anion Gap 11 ()?? 08/19/2023 06:20 Sodium (POC) POC Cartridge 128 mmol/L (Low)?? 08/12/2023 20:34 Potassium (POC) POC Cartridge 3.9 mmol/L ()?? 08/12/2023 20:34 Glucose Level 138 mg/dL (High)?? 08/19/2023 06:20 Glucose (POC) POC Cartridge 326 (High)?? 08/12/2023 20:34 Glucose, POC 237 mg/dL (High)?? 08/24/2023 12:32 Beta Hydroxybutyrate 3.41 mmol/L (High)?? 08/12/2023 10:28 BUN 10 mg/dL ()?? 08/19/2023 06:20 Creatinine-Blood 0.5 mg/dL ()?? 08/19/2023 06:20 Estimated GFR Creatinine 111 ML/MIN/1.73 M2 ()?? 08/19/2023 06:20 Osmolality 290 mOs/kg ()?? 08/12/2023 10:28 Calcium 7.4 mg/dL (Low)?? 08/19/2023 06:20 Calcium, Ionized pH Corrected 1.06 mmol/L (Low)?? 08/16/2023 01:08 Ionized Calcium (POC) POC Cartridge 1.14 mmol/L ()?? 08/12/2023 20:34 Phosphorus 2.7 mg/dL ()?? 08/18/2023 01:09 Magnesium 1.8 mg/dL ()?? 08/18/2023 01:09 Protein, Total 6.2 Gm/dL ()?? 08/17/2023 01:19 Albumin 2.1 Gm/dL (Low)?? 08/17/2023 01:19 AG Ratio 0.4 ()?? 08/12/2023 10:28 Alkaline Phosphatase 220 units/L (High)?? 08/17/2023 01:19 AST (SGOT) 19 units/L ()?? 08/17/2023 01:19 ALT (SGPT) 8 units/L ()?? 08/17/2023 01:19 Bilirubin, Total 0.2 mg/dL ()?? 08/17/2023 01:19 Bilirubin, Direct <0.2 mg/dL ()?? 08/17/2023 01:19 Bilirubin, Indirect Direct bilirubin is less than the measureable limit. Therefore, indirect mg/dL ()?? 08/17/2023 01:19 Lactate 1.3 mmol/L ()?? 08/12/2023 21:00 ?? ENDOCRINE/TUMOR MARKER Cortisol Level 15.6 ??g/dL ()?? 08/13/2023 10:19 ? HEME OTHER Hold Lavender Top SPECIMEN DISCARDED AFTER 24 HOURS. ()?? 08/13/2023 04:25 Hold Blue Top SPECIMEN DISCARDED AFTER 4 HOURS. ()?? 08/12/2023 13:15 ?? MISC. CHEMISTRY Hold Gel Top SPECIMEN DISCARDED AFTER 1 WEEK ()?? 08/12/2023 13:15 ? URINE OTHER Creatinine, Urine Random 10.0 mg/dL ()?? 08/13/2023 06:32 Sodium, Urine Random <20 mmol/L ()?? 08/13/2023 06:32 Osmolality, Urine Random 106 mOsm/kg ()?? 08/13/2023 06:32 Est Creatinine Clearance 120.62 mL/min ()?? 08/19/2023 08:22 ?? VIROLOGY Influenza A PCR NEGATIVE ()?? 08/23/2023 10:10 Influenza B PCR NEGATIVE ()?? 08/23/2023 10:10 RSV PCR NEGATIVE ()?? 08/23/2023 10:10 COVID-19 PCR Specimen Source NASAL ()?? 08/23/2023 10:10 COVID-19 PCR Result NEGATIVE ()?? 08/23/2023 10:10 ? Procedures(s) ?Operative Note ?? 08/14/2023 13:02??by Leandro Ramirez MD ?Preoperative Diagnosis 1. Diabetic infection, right ?? Postoperative Diagnosis Same as above ?? Operation Amputation Below Knee, Right ?? Surgeon(s) Leandro Ramirez MD (Primary Surgeon) ?? Regional Trainer Silvestre Christiansen ?? Anesthesia General Anesthesia ??Wilmer Austin MD (Att Anesthesiologist) ?? Estimated Blood Loss Minimal ?? Urine Output Not recorded ?? Findings Healthy appearing tissue ?? Specimen(s) None ?? Complications None ?Operative Note ?? 08/12/2023 19:07??by Tracy Campos MD ? Operation ??Amputation Below Knee Right (Primary Procedure) Surgeon(s) ??Marnie QUINN, Magan Orlando (Primary Surgeon) ??Tracy Campos MD (Resident) Regional Trainer(s) ? Anesthesia ??General Anesthesia ??Nunu QUINN, Jose Randle (Att Anesthesiologist) ??Arnoldo Juárez CRNA (FURNITURE DIPPER) ?? Preop Diagnosis right lower extremity gangrene 2/2 diabetic foot wound ? *Postop Diagnosis right lower extremity gangrene 2/2 diabetic foot wound ?? *Urine Output Urine Output ?? *Culture(s) and Specimen(s) Cultures and Specimens ??Cultures Order: No Specimens Order: Yes Sent to: Pathology ?Specimens: right BKA ? Indication for Surgery gangrene of right lower extremity ?? Estimated Blood Loss 200cc ?? Findings RLE gangrene s/p right guillotine BKA ?? Complications None ? Imaging(s) ?Chest Portable ?? 08/13/2023 00:08??by Violeta Koenig MD ? IMPRESSION: ?? There is no change from the prior study. ?Echocardiogram - Complete ?? 08/15/2023 14:15??by Jose De Jesus Albert MD ?Summary ??The left ventricular size is normal. The left ventricular wall thickness is ??mildly increased. The LV systolic function is normal . The left ventricular ??ejection fraction is 55-60 %. Cannot assess regional wall motion ??abnormalities. ??The right ventricular size and function appears grossly normal. ?? Recommendation ??Consider transesophageal echocardiography (if clinically indicated). ?? Comparison ??No prior study available for comparison. ?Foot Min 3 Views Right ?? 08/12/2023 11:28??by Arnoldo Pereira MD ? IMPRESSION: ?? Status post transmetatarsal amputation. Diffuse but inhomogeneous osteopenia without specific radiographic evidence of osteomyelitis. ?? Dorsal soft tissue swelling. No evidence of soft tissue gas or foreign body. ?Tibia/Fibula 2 Views Right ?? 08/12/2023 11:28??by Lizzette Saucedo MD ? IMPRESSION: ?? 1. There is a tract of lucency in the anterior amputated foot extending from the skin surface to the underlying bone, likely area of soft tissue injury. There are interspersed cortical irregularitiesand areas of lucency throughout the tarsal bones. These findings are concerning for osteomyelitis. MRI is recommended for further evaluation. 2. Soft tissue irregularities along the anterior and plantar aspect of the foot, concerning for diffuse soft tissue injury. Soft tissue swelling and edema throughout the foot concerning for infectious/inflammatory process such as cellulitis. 3. Irregular lucency along the lateral aspect of the lower extremity which may represent soft tissue injury. 4. Edema throughout the leg and foot. ? Consults(s) ?Consultation Note ?? 08/17/2023 14:57??by Joel Bautista MD ?Acute pain service ?Consultation Note ?? 08/17/2023 09:57??by Dillon Cooney DO ?Psychiatry ?Consultation Note ?? 08/15/2023 09:52??by Dyana Hay RN ?Wound care ?Consultation Note ?? 08/14/2023 09:43??by Cata Grady MD ?ID ?Consultation Note ?? 08/12/2023 12:38??by Magan Dye MD ?Vascular surgery ? Microbiology(s) ?Blood Culture ?? 08/12/2023 10:28 ? SPECIMEN DESCRIPTION : BLOOD RIGHT AC ?? SPECIAL REQUESTS : CRITICAL VALUE CALLED AND VERIFIED BY READBACK FOR: GPC AND GNR AND PCR ?TO [id number], SICU, 08/13 AT 0107 BY TECH [id number] ?? CULTURE : PROTEUS MIRABILIS This isolate was identified using Maldi-TOF system FOR SUSCEPTIBILITY RESULT REFER TO BLOOD CULTURE ?STAPHYLOCOCCUS AUREUS. This isolate was identified using Maldi-TOF ?system FOR SUSCEPTIBILITY RESULT REFER TO BLOOD CULTURE ?STREPTOCOCCUS AGALACTIAE SERO GROUP B This isolate was identified using ?Maldi-TOF system These AST results were performed on the Novatris ID ?and AST system ?Proteus species was identified by multiplex PCR. ?Group B beta Hemolytic Strep was identified by multiplex PCR. ?? REPORT STATUS : FINAL 08/16/2023 ? ORGANISM STREPTOCOCCUS AGALACTIAE SERO GROUP B This isolate ?was identified using Maldi-TOF system These AST ??results were performed on the Novatris ID and AST system METHOD MIN. INHIB. CONC. (MCG/ML) CLINDAMYCIN SUSCEPTIBLE ERYTHROMYCIN SUSCEPTIBLE PENICILLIN SUSCEPTIBLE ?Blood Culture, Second Order ?? 08/12/2023 10:28 ? SPECIMEN DESCRIPTION : BLOOD LEFT HAND ?? SPECIAL REQUESTS : NONE ?? CULTURE : PROTEUS MIRABILIS This isolate was identified using Maldi-TOF system These AST results were performed on the Vitek 2 ID and AST system ?ENTEROCOCCUS FAECALIS This isolate was identified using Maldi-TOF ?system These AST results were performed on the Vitek 2 ID and AST ?system ?STAPHYLOCOCCUS AUREUS. This isolate was identified using Maldi-TOF ?system These AST results were performed on the Vitek 2 ID and AST ?system ?Proteus species was identified by multiplex PCR. ?Enterococcus faecalis was identified by multi-plex PCR ?S. aureus was identified by multiplex PCR. mecA NOT detected. The ?absence of the mecA gene is associated with susceptibility to ?methicillin (MSSA). ?? REPORT STATUS : FINAL 08/16/2023 ? ORGANISM PROTEUS MIRABILIS This isolate was identified using ?Maldi-TOF system These AST results were performed on ??the Vitek 2 ID and AST system METHOD MIN. INHIB. CONC. (MCG/ML) AMPICILLIN SUSCEPTIBLE AMPICILLIN/SULBACTAM SUSCEPTIBLE CEFEPIME SUSCEPTIBLE CEFTRIAXONE SUSCEPTIBLE CIPROFLOXACIN SUSCEPTIBLE ERTAPENEM SUSCEPTIBLE GENTAMICIN SUSCEPTIBLE LEVOFLOXACIN SUSCEPTIBLE PIPERACILLIN/TAZOBAC SUSCEPTIBLE TRIMETH/SULFAMETHOX RESISTANT ?? ORGANISM ENTEROCOCCUS FAECALIS This isolate was identified ?using Maldi-TOF system These AST results were ??performed on the Vitek 2 ID and AST system METHOD MIN. INHIB. CONC. (MCG/ML) AMPICILLIN SUSCEPTIBLE VANCOMYCIN SUSCEPTIBLE GENTAMICIN SYNERGY SUSCEPTIBLE STREPTOMYCIN SYNERGY SUSCEPTIBLE ?? ORGANISM STAPHYLOCOCCUS AUREUS. This isolate was identified ?using Maldi-TOF system These AST results were ??performed on the Vitek 2 ID and AST system METHOD MIN. INHIB. CONC. (MCG/ML) CIPROFLOXACIN SUSCEPTIBLE CLINDAMYCIN RESISTANT ERYTHROMYCIN RESISTANT LEVOFLOXACIN SUSCEPTIBLE OXACILLIN SUSCEPTIBLE RIFAMPIN SUSCEPTIBLE RIFAMPIN RIFAMPIN SHOULD NOT BE USED ALONE FOR ANTIMICROBIAL RIFAMPIN THERAPY. TETRACYCLINE RESISTANT TRIMETH/SULFAMETHOX SUSCEPTIBLE VANCOMYCIN SUSCEPTIBLE ? 36_ minutes spent on discharge * Jeimy Dorsey RN: PERFORM, SIGN, VERIFY Event Display: Case Management Discharge Plan Authored Date: Patient: DIMPLE SIDDIQUI Age: 53 years Sex: Female : 1970 Associated Diagnoses: None Author: eJimy Dorsey RN Discharge Plan Case Management Discharge Plan : Case Management Discharge Plan Data 08/24/2023 15:06 EST Discharge Level of Care at Discharge care home facility Discharge Nursing Homes/Rehab Facilities [facility] Discharge Transportation Arranged [facility] [address] [place] [address] [phone] Mode of Transportation Arranged Ambulance Name of Agency #1 [facility] Agency [employer] Winder #1 Intake Service Categories #1 Physical Therapy, Group Home Service Comments #1 You are being discharged today to [facility]. Name of Person Notified of Transfer Discharge plan and IMM delivered to patient bedside. * Lisseth Mchugh RN: PERFORM, MODIFY Event Display: Patient Education/Instruction Authored Date: [id number] Inpatient Adult Discharge Instructions [address] [address] Name: DIMPLE SIDDIQUI : 1970 Visit: 08/12/2023 14:16:00 Current Date: 08/24/2023 16:00 Account: [id number] Inpatient Adult Discharge Instructions We would like to thank you for allowing us to assist you with your healthcare needs. The following includes patient education materials and information regarding your injury/illness. Our entire staffstrives to provide an excellent experience for our patients and their families. PLEASE ENSURE YOU FOLLOW-UP PER THE INSTRUCTIONS BELOW! ?? YOUR OPINION IS IMPORTANT TO US! Please complete the survey you may receive by mail or email. Your feedback will be used to make improvements to the healthcare experiences of our patients and their families. Surveys are administered by [employer] ?? If further treatment with your primary care physician or another doctor is recommended, it is important for you to keep the appointment. Call your primary care physician or return to the Emergency Department immediately if your condition worsens, fails to improve, or new symptoms develop. If you need to find a doctor, you can call [facility] [email or web address] Link for a referral at [phone] or toll free at [phone] ([phone]) or log in to [email or web address].. ?? [facility], in keeping with [facility] guidance, no longer requires face masks for staff, patientsor visitors in most situations. Similiar to time spent indoors at other locations, there is the chance that you were exposed to repiratory viruses during your time with us (such as flu or COVID-19). If you develop symptoms concerning for a viral respiratory infection, please seek testing (and treatment if indicated) from your medical provider or home test kit. ?? You can view and manage your care through the patient portal or by using a health care joe of your choosing. [employer] is a website that allows you to securely view your medical information including your hospital discharge summary, office visit summaries, medications and follow-up visits. You can also request appointments, renew medications, and request access to your medical information using a health care joe of your choosing, or just ask a question. You can enroll at [email or web address] or register during your next office visit. You have been discharged from [facility], Patient Care Unit: S2. If you have any questions regarding these instructions after you leave, please call us and we will be happy to assist you. [facility] Your Care Team Attending Physician Phani QUINN, Dayo Bustos Consulting Providers Sachin Moncada DO; Donis QUINN, Arun Christiansen; Femi QUINN, Mikael Harrington; Ivet BRONSON, Dillon Christiansen; Michele QUINN, Joel Ferguson; Ashley QUINN, Leandro Ferguson Discharging Providers Phani QUINN, Dayo Bustos Reason for Admission see TUNG 1 Sheet Your Diagnosis Gangrene S/P BKA (below knee amputation) unilateral Diabetic foot infection History of intravenous drug abuse History of smoking History of opioid abuse HTN (hypertension) Sepsis Septic shock DKA (diabetic ketoacidosis) BERNABE (acute kidney injury) High anion gap metabolic acidosis Lactic acidosis Diabetic neuropathy Atelectasis Anemia Cellulitis of leg Encephalopathy Cellulitis of left lower extremity Acute lactic acidosis Severe sepsis with septic shock Hemorrhagic shock Toxic metabolic encephalopathy Pain Prolonged QT interval Bacteremia T2DM (type 2 diabetes mellitus) Electrolyte imbalance Benzodiazepine dependence Anxiety History of pulmonary embolism Tests Performed Below is a partial list of the tests performed during your hospitalization. You may have had other tests and procedures not included in this list. Please discuss all test results with your provider. [id number] ABG POC CARTRIDGE BASE EXCESS POC CARTRIDGE Basic Metabolic Panel Beta Hydroxybutyrate CALCIUM IONIZED POC CART Calcium Level CBC CBC w/ Differential Comprehensive Metabolic Panel Cortisol Level COVID-19, RSV, and Flu A/B, Rapid PCR CPK w/ Reflex CKMB Electrolytes Glucose Level GLUCOSE POC GLUCOSE POC CARTRIDGE HEMATOCRIT POC CARTRIDGE HEMOGLOBIN POC CARTRIDGE Hepatic Function Panel HOLD BLUE TUBE HOLD GEL TUBE HOLD LAVENDER TUBE Hold Lavender Tube (BB) Ionized Calcium Lactate Level LACTIC ACID POC CART LFT's Magnesium Level Osmolality pH Venous Phosphorus Level POTASSIUM POC CARTRIDGE SODIUM POC CARTRIDGE Troponin T, High Sensitivity Type and Screen Urine Creatinine Urine Osmolality Urine Sodium VBG POC CARTRIDGE CXR Portable XR Foot Min 3 Views Right XR Tibia/Fibula 2 Views Right Primary Care Provider Not on Staff, PCP Advance Directive Health Care Proxy on File Yes - Health Care Proxy Discharge Vitals Temperature: 98 DegF Height: 167 cm Pulse Rate: 90 bpm Weight: 89.6 kg Respiratory Rate: 18 br/min Body Mass Index:??32.63 kg/m2??Critical Systolic Blood Pressure: 111 mm Hg Body surface area: 2.05 Diastolic Blood Pressure: 63 mm Hg ?? Oxygen Saturation: 97 % ?? Studies Pending All tests and labs ordered during this hospital stay have been completed unless listed below. Please discuss all pending results with your provider listed above in these instructions. ?? Add On Lab Order Basic Metabolic Panel Blood Gas Arterial (ABG) Blood Gas Venous (VBG) Complete Urinalysis (UA) Magnesium Level Phosphorus Level RBCs for Surgery Sodium Urine Transfuse RBCs Type and Screen Urinalysis w/hold for Urine Culture What to do next Instructions From Your Doctor Discharge Orders Scheduled Follow-Up Appointments Monday 2:30 PM EST ?? With: Hao VERNON, Zev Lai Where: [address] [place] [address]- Status: Pending You Need to Schedule the Following Appointments Follow Up with??Ashley QUINN, Leandro Ferguson When:??Only if needed Why: office will call you to arrange follow up??in 4-5 weeks but if you have questions before that time our number is mentioned above Where: [address] [place] [address] [place] [address]- Discharge Medications DIMPLE SIDDIQUI :1970 Visit Date:08/12/2023 Medications: Please continue your medications until treatment is completed or stopped by your provider. Medications not listed below should be discontinued. Discuss any questions related to medications with your provider. What How Much When Instructions Next Dose New Alprazolam (ALPRAZolam 0.5 mg oral tablet) 0.5 Milligram Oral Daily as needed for Anxiety Duration: 3 Days Printed Prescription as needed New Ampicillin-Sulbactam (Ampicillin/ Sulbactam IVPB) 3 gram IV Piggyback Every 6 hours tonight New Baclofen (baclofen 5 mg oral tablet) 1 tab(s) Oral 3 times a day tonight New Emollients, Topical (Vashe Topical Solution) 475 Milliliter Topically Every other day tomorrow New HydrOXYzine (hydrOXYzine pamoate 25 mg oral capsule) 25 Milligram Oral 3 times a day as needed for Anxiety as needed New Insulin Lispro (insulin lispro 100 u/ ml subcutaneous injection) 2-10 units Subcutaneous Injection 3 times a day before meals << Sliding Scale Comments >> 150 - 199 ?? 2 units Call if less than 70 200 - 249 ?? 4 units 250 - 299 ?? 6 units 300 - 349 ?? 8 units 350 - 399 ?? 10 units Call if greater than 400 << Sliding Scale Comments >> ?? as ordered New Methadone 135 Milligram Oral Daily tomorrow New Oxycodone (oxyCODONE 10 mg oral tablet) 30 Milligram Oral Every 4 hours as needed for Pain , Severe Duration: 3 Days hold for oversedation ?? Printed Prescription as needed New Polyethylene Glycol 3350 (MiraLax Powder) 17 gram Oral Daily as needed for Constipation as needed New Senna (senna 187 mg oral tablet) 1 tab(s) Oral Twice a day as needed for Constipation tonight New silver topical (SilvaSorb) 1 applicator Topically Every other day tomorrow Changed Gabapentin (gabapentin 300 mg oral capsule) 600 Milligram Oral 4 times a day tonight Changed Insulin Glargine (Lantus Inj) 35 unit(s) Subcutaneous Injection Daily tomorrow Unchanged apixaban (Eliquis 5 mg oral tablet) 1 tab(s) Oral Twice a day tonight Unchanged Atorvastatin (atorvastatin 80 mg oral tablet) 1 tab(s) Oral Daily at Bedtime tonight Unchanged Duloxetine (duloxetine 30 mg oral enteric coated capsule) 1 capsule Oral Daily tomorrow Unchanged empagliflozin (Jardiance 25 mg oral tablet) 1 tab(s) Oral Daily in the morning tomorrow Unchanged Metformin (metFORMIN 500 mg oral tablet) 1 tab(s) Oral Twice a day tonight Unchanged Miscellaneous Rx (FREESTYLE LANCETS 100) USE ONE EACH BY OTHER ROUTE THREE TIMES DAILY ?? per order Unchanged Miscellaneous Rx (FREESTYLE LITE BLOOD GLUCOSE STRIPS) USE TO TEST BLOOD SUGAR EVERY 8 HOURS ?? per order ?? What How Much When Comments Stop Taking Insulin Aspart (Insulin Aspart FlexPen 100 units/ mL injectable solution) stop Stop Taking Lisinopril (lisinopril 5 mg oral tablet) 1 tab(s) Oral Daily stop Test Results Below is a partial list of the most recent Laboratory test results done prior to this discharge. You may have had other tests and procedures not included in this list. Please discuss all test resultswith your provider. Antibody Screen - Negative (08/18/2023) Blood Type - O Positive (08/18/2023) Est Creatinine Clearance - 120.62 mL/min (08/19/2023) [id number] (08/12/2023) ? ?Surgical Pathology - Patient Name: DIMPLE MENDENHALL
Lab
Patient : 1970 (Age: 53)
Collection Date: 08/12/2023
Accession Date: 08/14/2023<br/ >Sign Out Date: 08/16/2023

Tissue Source:
1:RIGHT BELOW KNEE AMPUTATION

Final Gabriela gnosis:
Right leg, below the knee amputation:
- Cutaneous ulceration and gangrenous necrosis of underlying soft tissues.
- Acute osteomyelitis of distal bone.
- Status post amputation of the first through fifth toes.

Primary Pathologist:Mane Briggs M.D.
electronically signed out by: Mane Briggs M.D. / ALEXANDER

Gross Description:
A. Specimen Identification:
1. Received labeled as right below the knee amputation .
2. Received fresh.
3. Laterality: Right.
4. Type: Below the knee amputation.
B. Is There An Accompanying Disposal Authorization Form?:Yes.
1. Signed by: The patient on 08/12/2023.
C. External Examination:
1. Extremity length, from heel to proximal margin: 22 cm.
2. Foot length, from heel to distal foot/prior amputation site: 13.5 cm.
3. Length of tibia exposed: 1.8 cm
Length of fibula exposed: 2.8 cm
4. Presence of ulcers: The distal foot and plantar footare predominantly replaced by a 12.8 x 9 cm ulcerated area.
5. Presence of surgical incis ions/scars: There is an 8.5 cm linear scar present at the ulcerated distal foot consistent with prior distal digit excision.
6. Presence of other skin lesions: The remaining skin ranges from south-pink, softened to south-white, roughened; minimal uninvolved skin is grossly present.
7. Color of skin: South-white.
8. Any absent digits?: All digits are previouslyremoved, absent.
D. Comment: None.
E. Additional Tissue Processing: None.
F. Summary Of Sections:
Soda Fountain Operator sections are submitted following decalcification as follows:
1-2 pieces, ulcerated area
2-multiple pieces, bone subjacent to ulcerated area. (KM)*

Phone #: [phone], On-Call Pathologist: [id number] ABG POC CARTRIDGE (08/12/2023) ???pH (POC) POC Cartridge - 7.36???pCO2 (POC) POC Cartridge - 37.6 mm Hg???pO2 (POC) POC Cartridge - 116 mm Hg???Estimated Bicarbonate (POC) POC Cart - 21.1 mmol/L???% O2 Sat Arterial (POC) POC Cartridge - 98 %???Specimen Type - Blood Gas - ARTERIAL BASE EXCESS POC CARTRIDGE (08/12/2023) ???Base Excess (POC) POC Cartridge - NEGATIVE 4 Basic Metabolic Panel (08/19/2023) ???Sodium - 134 mmol/L???Potassium - 4.5 mmol/L???Chloride - 99 mmol/L???Bicarbonate Level - 24 mmol/L???Anion Gap - 11???Glucose Level - 138 mg/dL???BUN - 10 mg/dL???Creatinine-Blood - 0.5 mg/dL???Estimated GFR Creatinine - 111 ML/MIN/1.73 M2???Calcium - 7.4 mg/dL Beta Hydroxybutyrate (08/12/2023) ???Beta Hydroxybutyrate - 3.41 mmol/L CALCIUM IONIZED POC CART (08/12/2023) ???Ionized Calcium (POC) POC Cartridge - 1.14 mmol/L Calcium Level (08/13/2023) ???Calcium - 6.8 mg/dL CBC (08/19/2023) ???WBC - 7.6 k/mm3???RBC - 2.84 m/mm3???Hgb - 7.6 Gm/dL???Hct - 25.5 %???MCV - 89.8 femtoliters???MCH - 26.8 pg???MCHC - 29.8 g/dL???Platelet Count - 497 k/mm3???RDW-SD - 56.2 femtoliters???MPV - 8.8femtoliters???Nucleated RBC (Automated) - 0.3 #/100 WBC'S???Abs. NRBC - 0.0 k/mm3 CBC w/ Differential (08/16/2023) ???WBC - 9.4 k/mm3???RBC - 2.99 m/mm3???Hgb - 7.8 Gm/dL???Hct - 25.6 %???MCV - 85.6 femtoliters???MCH - 26.1 pg???MCHC - 30.5 g/dL???Platelet Count - 366 k/mm3???RDW-SD - 53.2 femtoliters???MPV - 10.0 femtoliters???Nucleated RBC (Automated) - 0.0 #/100 WBC'S???Abs. NRBC - 0.0 k/mm3???Abs. Neut - 5.6 k/mm3???Abs. Lymph - 2.8 k/mm3???Abs. Brantley - 0.6 k/mm3???Abs. Eo - 0.1 k/mm3???Abs. Baso - 0.1 k/mm3???Neut % - 59.6 %???Lymph % - 30.0 %???[place] % - 5.9 %???Eos % - 1.2 %???Baso % - 0.8 %???Imm Gran- 2.5 %???Abs. Imm Gran - 0.2 k/mm3 Comprehensive Metabolic Panel (08/12/2023) ???Sodium - 120 mmol/L???Potassium - 5.1 mmol/L???Chloride - 82 mmol/L???Bicarbonate Level - 20 mmol/L???Anion Gap - 18???Glucose Level - 430 mg/dL???BUN - 33 mg/dL???Creatinine-Blood - 1.1 mg/dL???Estimated GFR Creatinine - 64 ML/MIN/1.73 M2???Calcium - 8.7 mg/dL???Protein, Total - 8.2 Gm/dL???Albumin - 2.4 Gm/dL???AG Ratio - 0.4???Alkaline Phosphatase - 198 units/L???AST (SGOT) - 26 units/L???ALT (SGPT) - 17 units/L???Bilirubin, Total - 0.6 mg/dL Cortisol Level (08/13/2023) ???Cortisol Level - 15.6 ??g/dL COVID-19, RSV, and Flu A/B, Rapid PCR (08/23/2023) ???Influenza A PCR - NEGATIVE???Influenza B PCR - NEGATIVE???RSV PCR - NEGATIVE???COVID-19 PCR Specimen Source - NASAL???COVID-19 PCR Result - NEGATIVE CPK w/ Reflex CKMB (08/12/2023) ???CK, Total - 33 units/L Electrolytes (08/14/2023) ???Sodium - 135 mmol/L???Potassium - 5.3 mmol/L???Chloride - 105 mmol/L???Bicarbonate Level - 20 mmol/L???Anion Gap - 10 Glucose Level (08/13/2023) ???Glucose Level - 197 mg/dL GLUCOSE POC (08/24/2023) ???Glucose, POC - 237 mg/dL GLUCOSE POC CARTRIDGE (08/12/2023) ???Glucose (POC) POC Cartridge - 326 HEMATOCRIT POC CARTRIDGE (08/12/2023) ???Hematocrit (POC) POC Cartridge - 22 % HEMOGLOBIN POC CARTRIDGE (08/12/2023) ???Hemoglobin (POC) POC Cartridge - 7.5 Gm/dL Hepatic Function Panel (08/12/2023) ???Protein, Total - 6.3 Gm/dL???Albumin - 1.8 Gm/dL???Alkaline Phosphatase - 157 units/L???AST (SGOT) - 29 units/L???ALT (SGPT) - 15 units/L???Bilirubin, Total - 0.3 mg/dL???Bilirubin, Direct - 0.2 mg/dL???Bilirubin, Indirect - 0.1 mg/dL HOLD BLUE TUBE (08/12/2023) ???Hold Blue Top - SPECIMEN DISCARDED AFTER 4 HOURS. HOLD GEL TUBE (08/12/2023) ???Hold Gel Top - SPECIMEN DISCARDED AFTER 1 WEEK HOLD LAVENDER TUBE (08/13/2023) ???Hold Lavender Top - SPECIMEN DISCARDED AFTER 24 HOURS. Hold Lavender Tube (BB) (08/12/2023) ???RBC Unit ID - [id number]???RBC Available - RE Ionized Calcium (08/16/2023) ???Calcium, Ionized pH Corrected - 1.06 mmol/L Lactate Level (08/12/2023) ???Lactate - 1.3 mmol/L LACTIC ACID POC CART (08/12/2023) ???Lactate, (POC) POC Cartridge - 0.8 mmol/L LFT's (08/17/2023) ???Protein, Total - 6.2 Gm/dL???Albumin - 2.1 Gm/dL???Alkaline Phosphatase - 220 units/L???AST (SGOT) - 19 units/L? ?ALT (SGPT) - 8 units/L? ?Bilirubin, Total - 0.2 mg/dL? ?Bilirubin, Direct - <0.2 mg/dL???Bilirubin, Indirect - Direct bilirubin is less than the measureable limit. Therefore, indirect Magnesium Level (08/18/2023) ???Magnesium - 1.8 mg/dL Osmolality (08/12/2023) ???Osmolality - 290 mOs/kg pH Venous (08/12/2023) ???pH, Venous - 7.35 Phosphorus Level (08/18/2023) ???Phosphorus - 2.7 mg/dL POTASSIUM POC CARTRIDGE (08/12/2023) ???Potassium (POC) POC Cartridge - 3.9 mmol/L SODIUM POC CARTRIDGE (08/12/2023) ???Sodium (POC) POC Cartridge - 128 mmol/L Troponin T, High Sensitivity (08/12/2023) ???High Sensitivity Troponin (HSTnT) - 27 ng/L Type and Screen (08/14/2023) ???Blood Type - O Positive???Antibody Screen - Negative Urine Creatinine (08/13/2023) ???Creatinine, Urine Random - 10.0 mg/dL Urine Osmolality (08/13/2023) ???Osmolality, Urine Random - 106 mOsm/kg Urine Sodium (08/13/2023) ? ?Sodium, Urine Random - <20 mmol/L VBG POC CARTRIDGE (08/12/2023) ???pH Venous (POC) POC Cartridge - 7.40???pCO2 Venous (POC) POC Cartridge - 32.4 mm Hg???pO2 Venous(POC) POC Cartridge - 15 mm Hg???Est Bicarbonate (POC) POC Cartridge - 20.2 mmol/L???% O2 Sat Venous (POC) POC Cartridge - 20???Specimen Type - Blood Gas - VENOUS Allergies (NKA means No Known Allergies) predniSONE Problems Active Problems??(6) History of intravenous drug abuse?? History of opioid abuse?? History of smoking?? HTN (hypertension)?? Obese class I?? S/P BKA (below knee amputation) unilateral?? Education Materials Below is the list of Educational Leaflet Providered with your Discharge Instructions. Understanding Anxiety Disorders?? Discharge Instructions for Cellulitis?? Ampicillin/Sulbactam Injectable Solution?? BVS-Below Knee Amputation Discharge Instructions?? Methadone Oral Solution?? Valuables and Belongings I fully understand and agree that [facility] accepts no responsibility for all my personal property including clothing, toilet articles, radios, jewelry, dentures, hearing aids, rings, money, or any other property that is in my possession or is brought to me after admission. I understand certain valuables may be placed in a hospital safe for a short period of time. I understand that the hospital is not liable for loss or damage due to accident, fire, or other natural occurrence while said property is in the safe. I accept full responsibility for any personal property that I keep with me, and will not hold the hospital responsible in case of loss or disappearance. I acknowledge that i have been encouraged to send valuables and belongings home. ?? No Valuables/Belongings: No valuables/belongings present Date for Pt to Sign Valuables/Belongings: 08/14/23 10:45:00 ?? Other Discharge Information ? Case Management Discharge Plan?? Discharge Plan?? Discharge Agency Information?? Discharge Level of Care at Discharge: care home facility Name of Agency #1: [facility] Discharge Transportation Arranged: [facility] [address] [facility] [id number] [phone] Agency [employer] #1: Intake Mode of Transportation Arranged: Ambulance Service Categories #1: Physical Therapy, Group Home Discharge Nursing Homes/Rehab Facilities: [facility] Service Comments #1: You are being discharged today to [facility]. ?? Name of Person Notified of Transfer: Discharge plan and IMM delivered to patient bedside. ?? Pulmonary Rehab Status?? Pulmonary Rehab Discharge Status?? Respiratory Rate: 18 br/min ? Common Emergency Awareness Tips IS IT A STROKE? Act FAST and Check for these signs: FACE Does the face look uneven? ARM Does one arm drift down? SPEECH Does their speech sound strange? TIME Call at any sign of stroke ?? Heart Attack Signs Chest discomfort: Most heart attacks involve discomfort in the center of the chest and lasts more than a few minutes, or goes away and comes back. It can feel like uncomfortable pressure, squeezing, fullness or pain. Discomfort in upper body: Symptoms can include pain or discomfort in one or both arms, back, neck, jaw or stomach. Shortness of breath: With or without discomfort. Other signs: Breaking out in a cold sweat, nausea, or lightheaded. Remember, MINUTES DO MATTER. If you experience any of these heart attack warning signs, call to get immediate medical attention! ?? Smoking can increase your chances of developing chronic health problems and can cause harmful effects to other family members in your house. If you smoke, you are strongly encouraged to quit. Please call [facility] [email or web address] Link at [phone] or [phone] ([phone]) or log in to [email or web address] for referrals to smoking cessation programs. ?? 834 Suicide & Crisis Lifeline is available 27/02 if you or someone you know needs to find a reason to keep living. By calling 608 you'll be connected to a skilled, trained counselor at a crisis center in your area. INPATIENT DISCHARGE INSTRUCTIONS SIGNATURE PAGE DIMPLE SIDDIQUI Location:[facility] Registration Date and Time:08/12/2023 14:16 EST Primary Care Physician: Not on Staff, PCP Attending Physician: Dayo Jeronimo MD, I DIMPLE SIDDIQUI, have received the above patient education materials/instructions and have verbalized understanding. If ambulance or transport services are being used I further acknowledge being given a choice of service. ?? If you need to contact me, please call me at this number: . Patient/Soda Fountain Operator Name: Patient/Soda Fountain Operator Signature: Relationship to Patient: Witness Name/Signature: Date: * Lisseth Mchugh RN: PERFORM Event Display: Patient Education Leaflets Authored Date: [id number] Understanding Anxiety Disorders ?? 33120 Understanding Anxiety Disorders Almost everyone gets nervous now and then. It???s normal to have knots in your stomach before a test. Or for your heart to beat fast on a first date. But an anxiety disorder is much more than a simple case of nerves. In fact, its symptoms may be overwhelming. But treatment can ease many of these symptoms. Talking with your healthcare provider is the first step. What are anxiety disorders? An anxiety disorder causes very strong feelings of panic and fear. These feelings may occur for no clear reason. And they tend to happen again and again. They may prevent you from coping with life. They may cause you great distress. You may then stay away from anything that triggers your fear. In extreme cases, you may never leave the house. Anxiety disorders may cause other symptoms, such as: ??? Obsessive thoughts that are unwanted and you can???t control ??? Constant nightmares or painful thoughts of the past ??? Upset stomach, sweating, and muscle tension ??? Trouble sleeping or focusing ?? What causes anxiety disorders? Anxiety disorders tend to run in families. For some people, childhood abuse or neglect may play a role. For others, stressful life events or trauma may trigger these disorders. Anxiety can trigger low self-esteem and poor coping skills. ?? Types of anxiety disorders ??? Panic disorder. This causes a very strong fear of being in danger. ??? Phobias. These are extreme fears of certain things, places, or events. ??? Obsessive-compulsive disorder (OCD). This makes you have unwanted thoughts and urges. You also may do certain things over and over. ??? Posttraumatic stress disorder (PTSD). This occurs in people who have been through a terrible ordeal. It can cause nightmares and flashbacks about the event. ??? Generalized anxiety disorder. This causes constant worry. It can greatly disrupt your life. ?? Getting better You may believe that nothing can help you. Or you might fear what others may think. But most anxiety symptoms can be eased with treatment. Having an anxiety disorder is nothing to be ashamed of. Mostpeople do best with treatment that combines medicine and individual and group therapy. These aren???t cures. But they can help you live a healthier life. ?? How daily issues affect your health Many things in your daily life impact your health. This can include transportation, money problems,housing, access to food, and childcare. If you can???t get to medical appointments, you may not receive the care you need. When money is tight, it may be difficult to pay for medicines. And living far from a grocery store can make it hard to buy healthy food. If you have concerns in any of these or other areas, talk with your healthcare team. They may know of local resources to assist you. Or they may have a staff person who can help. ?? Last Reviewed Date: 2022 ?? [employer]. All rights reserved. This information is not intended as a substitute for professional medical care. Always follow your healthcare professional's instructions. ?? * Lisseth Mchugh RN: PERFORM Event Display: Patient Education Leaflets Authored Date: [id number] Discharge Instructions for Cellulitis ?? 20207 Discharge Instructions for Cellulitis You have been diagnosed with cellulitis. This is an infection in the deepest layers of the skin. The infection may even spread to the muscle in some cases. Cellulitis is caused by bacteria. The bacteria can??enter the body through broken skin. This can happen with a cut, scratch, animal bite, or aninsect bite that has been scratched. You may have been treated in the hospital with antibiotics andfluids. You will likely be given a prescription for antibiotics to take at home. This sheet will help you take care of yourself at home. Home care When you are home: ??? Take the prescribed antibiotic medicine you are given as directed until it is gone. Take it even if you feel better. It treats the infection and stops it from returning. Not taking all the medicine can make future infections hard to treat. ??? Keep the infected area clean. Follow all wound careinstructions from your healthcare provider. ??? When possible, raise the infected area above the level of your heart. This helps keep swelling down. ??? Reji the boundary of the infected area so you can tell if it is growing. ??? Talk with your healthcare provider if you are in pain. Ask what kind of xseh-sqn-ghrhise medicine you can take for pain. ??? Apply clean bandages as advised. Dispose of dirty bandages in a plastic bag that is tied at the top. ??? Wash your hands often to prevent spreading the infection. Always wash your hands before and after cleaning the area. If anyone helps you with your care, have them do the same. ??? Take your temperature once a day for a week. In the future, wash your hands before and after you touch cuts, scratches, or bandages. This will help prevent infection.? When to call your healthcare provider Call your healthcare provider right away if you have any of the following: ??? The infection does not get better within 1 to 2 days after treatment starts ??? Trouble or pain when moving the joints above or below the infected area ??? Discharge or pus draining from the area ??? Fever??of??100.4??F (38??C) or higher, or as directed by your healthcare provider ??? Pain that gets worse in or around the infected? Redness that gets worse in or around the infected area,??particularly if the areaof redness expands to a wider area ??? Shaking chills ??? Swelling of the infected area ??? Vomiting ?? Last Reviewed Date: 2021 ?? [id number] [employer]. All rights reserved. This information is not intended as a substitute for professional medical care. Always follow your healthcare professional's instructions. ?? * Chin MD, Dayo Bustos: PERFORM Event Display: Discharge/Transfer Note Hospital Authored Date: [id number] Patient: ??DIMPLE SIDDIQUI ? Age:??53 Years?Sex:??Female?:??1970?? Patient Information Discharge Location: S2 Primary Care Physician: Not on Staff, PCP Admit Date/Time: 08/12/23 14:16 Discharge Disposition Discharge Disposition: Group Home Facility/Rehab Discharge Diagnosis S/P BKA (below knee amputation) unilateral (Z89.519) Diabetic foot infection (E11.628) History of intravenous drug abuse (F19.11) History of smoking (Z87.891) History of opioid abuse (F11.11) HTN (hypertension) (I10) Sepsis (A41.9) Septic shock (R65.21) DKA (diabetic ketoacidosis) (E11.10) Anemia (D64.9) Cellulitis of left lower extremity (L03.116) Acute lactic acidosis (E87.21) Severe sepsis with septic shock (R65.21) Benzodiazepine dependence (F13.20) Anxiety (F41.9) History of pulmonary embolism (Z86.711) BERNABE (acute kidney injury) (N17.9) Atelectasis (J98.11) Bacteremia (R78.81) Cellulitis of leg (L03.119) Diabetic neuropathy (E11.40) Electrolyte imbalance (E87.8) Encephalopathy (G93.40) Gangrene (I96) Hemorrhagic shock (R57.8) High anion gap metabolic acidosis (E87.29) Lactic acidosis (E87.20) Pain (R52) Prolonged QT interval (R94.31) T2DM (type 2 diabetes mellitus) (E11.9) Toxic metabolic encephalopathy (G92.8) ?? _ Discharge Medications Alprazolam (ALPRAZolam 0.5 mg oral tablet)?0.5?Milligram?By Mouth?Daily?as needed?for 3?Days?Anxiety Ampicillin-Sulbactam (Ampicillin/Sulbactam IVPB)?3?gram?IVPB?Every 6 hours apixaban (Eliquis 5 mg oral tablet)?1?tab(s)?5?Milligram?By Mouth?2 times a day Atorvastatin (atorvastatin 80 mg oral tablet)?1?tab(s)?80?Milligram?By Mouth?Daily at bedtime Baclofen (baclofen 5 mg oral tablet)?1?tab(s)?5?Milligram?By Mouth?3 times a day Duloxetine (duloxetine 30 mg oral enteric coated capsule)?1?capsule?30?Milligram?By Mouth?Daily Emollients, Topical (Vashe Topical Solution)?475?Milliliter?Topically?Every other day empagliflozin (Jardiance 25 mg oral tablet)?1?tab(s)?25?Milligram?By Mouth?Daily in AM Gabapentin (gabapentin 300 mg oral capsule)?600?Milligram?By Mouth?4 times a day HydrOXYzine (hydrOXYzine pamoate 25 mg oral capsule)?25?Milligram?By Mouth?3 times a day?as needed?Anxiety Insulin Glargine (Lantus Inj)?0.35?Milliliter?35?unit(s)?Subcutaneous Injection?Daily Insulin Lispro (insulin lispro 100 u/ml subcutaneous injection)?2-10 units?Subcutaneous Injection?3 times a day before meals?<< Sliding Scale Comments >>150 - 199 ?? 2 units Call if less than [id number] - 249 ?? 4 units 250 - 299 ?? 6 units 300 - 349 ?? 8 units 350 - 399 ?? 10 units Call if greater than 400<< Sliding Scale Comments >> Metformin (metFORMIN 500 mg oral tablet)?1?tab(s)?500?Milligram?By Mouth?2 times a day Methadone?135?Milligram?By Mouth?Daily Miscellaneous Rx (FREESTYLE LITE BLOOD GLUCOSE STRIPS)?USE TO TEST BLOOD SUGAR EVERY 8 HOURS Miscellaneous Rx (FREESTYLE LANCETS 100)?USE ONE EACH BY OTHER ROUTE THREE TIMES DAILY Oxycodone (oxyCODONE 10 mg oral tablet)?30?Milligram?By Mouth?Every 4 hours?as needed?Pain , Severe?for 3?Days?hold for oversedation Polyethylene Glycol 3350 (MiraLax Powder)?1?pack/packet?17?gram?By Mouth?Daily?as needed?Constipation Senna (senna 187 mg oral tablet)?1?tab(s)?8.6?Milligram?By Mouth?2 times a day?as needed?Constipation silver topical (SilvaSorb)?1?applicator?Topically?Every other day ? Medications Started lispro unasyn methadone silvasorb vashe aprazolam oxycodone baclofen senna miralax Medications Discontinued lisinopril insulin aspart Doses Changed lantus PCP Follow-Up/Heads-Up please adjust insulin dosing as necessary please review for recommencement of lisinopril please ensure that patient completes course of IV abx as outlined below and that midline is removedon completion would wean oxycodone as pain improves please also consider referral to outpatient pain management please ensure that patient follows up with vascular surgery and remains non weightbearing on her RLE until cleared by the surgical team Future Appointments Monday 2:30 PM EST ?? 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 Status post revision on 08/14. She was seen by APS who adjusted her pain regimen, she is stable off of IV pain meds. She has a midline and has been recommended for rehab. ? Sepsis (A41.9): . Septic shock (R65.21): . Hemorrhagic shock (R57.8): . Severe sepsis with septic shock (R65.21): Resolved Cellulitis of left lower extremity (L03.116): . Bacteremia (R78.81): Blood cultures drawn on 08/12/2023 Proteus mirabilis, Staph aureus methicillin sensitive, Enterococcus faecalis Appreciate ID input: DC IV vancomycin, ceftriaxone; switched to IV Unasyn 08/15 TTE showing no evidence of IE, discussed with ID, hold off on LAZARO unless repeat cultures positive Blood cultures 08/15 finalized negative Has SL midline ??-Continue current antibiotic ??-Plan is 2 weeks treatment with start date 08/15 ? OPAT Script (per Dr. Grady, 08/17) ? Indication/s: Polymicrobial bacteremia ??Antimicrobial/s: Ampicillin/sulbactam 3 g IV every 6 hours ??Planned duration: 2 weeks ??Start date: 08/15 ??End date: 08/28 ??Vascular access: Single-lumen midline ??Monitoring labs (test/frequency): Weekly CBC, CMP ??Imaging needed before outpt f/u visit: No ??Suggested outpt f/u visit: No ? Diabetic foot infection (E11.628): . Gangrene (I96): . Pain (R52): . S/P BKA (below knee amputation) unilateral (Z89.519): Patient presented with right foot infection S/p BKA on 08/12/2023 evening by vascular surgery; continue to follow vascular surgery recommendation Revision R BKA 08/14 by surgery Seen for postop check 08/19, vascular is satisfied with the wound and has signed off Vascular recs as follows: ??- [place] to remain in place to RLE ??- Nonweight bearing on the right lower extremity until cleared by vascular surgery outpatient ??- PT/OT eval ??- Vascular will set up 4 week follow up for suture removal ??- can continue DSD for cushioning under stump sock which can be changed by RN daily ??- [employer] [facility] clinic will contact patient regarding prosthetic after cleared for weight bearing ?-APS consulted, have titrated oxycodone to 30 q4 and discontinued dilaudid in anticipation of DC ??-Can downtitrate as tolerated at facility as her pain improves ??-Continue Tylenol [id number] ??-Continue home dose methadone ??-Have resumed home dose gabapentin 600 4x daily and home duloxetine ??-Added on baclofen per APS recs (5mg TID) ??-Hold on NSAID (Eliquis) -please continue to coordinate with methadone clinic and consider referral to outpatient pain management clinic ? Anemia (D64.9): Acute on chronic anemia; hemoglobin dropped to 7.2; s/p 1 unit PRBC CBC has since remained stable ?? HTN (hypertension) (I10): Blood pressure in the normal range Hold home lisinopril for now, consider resumption as outpatient ? History of intravenous drug abuse (F19.11): . History of smoking (Z87.891): . History of opioid abuse (F11.11): Former IV drug use, per chart quit 2 years ago following suicide attempt Patient is now back on prior methadone dose of 135mg daily ? Diabetic neuropathy (E11.40): . DKA (diabetic ketoacidosis) (E11.10): Resolved T2DM (type 2 diabetes mellitus) (E11.9): ??- Continue Lantus 35 units daily; insulin sliding scale; POC glucose checks, diabetic diet ??- On gabapentin and duloxetine ? Acute lactic acidosis (E87.21): Resolved High anion gap metabolic acidosis (E87.29): Resolved ? BERNABE (acute kidney injury) (N17.9): Resolved ? Electrolyte imbalance (E87.8): resolved with repletion ? Encephalopathy (G93.40): Resolved ? Prolonged QT interval (R94.31): Resolved, repeat EKG stable ? Benzodiazepine dependence (F13.20): Patient with history of high dose benzodiazepine dependence, has come down to much lower dose Anxiety (F41.9): However she is reporting significant anxiety -Psych consulted, recs appreciated: ??-Hold off on SSRI per patient preference ??-Continue benzodiazepine at current dose without modification ??-Start Vistaril as needed ? History of pulmonary embolism (Z86.711): continue apixaban ?? Code Status: Full ? Order Code Status: Code Status Ordered ? Vital Signs?? Temperature: 98.1 DegF (08/23/23 06:27:00) Temperature Route: Oral (08/23/23 06:27:00) Pulse Rate: 82 bpm (08/23/23 06:27:00) Respiratory Rate: 20 br/min (08/23/23 09:42:00) Systolic Blood Pressure: 100 mm Hg (08/23/23 06:27:00) Diastolic Blood Pressure: 72 mm Hg (08/23/23 06:27:00) Blood pressure sites: Arm, left (08/23/23 06:27:00) Mean Arterial Pressure: 81 mm Hg (08/23/23 06:27:00) Pulse Pressure: 28 mm Hg (08/23/23 06:27:00) Oxygen Saturation: 95 % (08/23/23 06:27:00) Mode of Delivery (Oxygen): Room air (08/23/23 06:27:00) Early Warning Score: 3 (08/23/23 09:43:41) ? . Physical Exam Gen: comfortable, well: HEENT: normocephalic, atraumatic Chest: CTA, no wheeze/crackles CVS: no M/G/R, no JVD Abdo: soft, non-tender Ext: no oedema, s/p R BKA with dressing in situ Neuro: A+Ox3 Psych: WNL Surgical Procedures Amputation Below Knee 08/12/2023 18:09 Amputation Below Knee 08/14/2023 11:32 Pending Results Add On Lab Order ordered on 08/13/2023 Add On Lab Order ordered on 08/15/2023 Basic Metabolic Panel ordered on 08/14/2023 Blood Gas Arterial ordered on 08/12/2023 Blood Gas Venous ordered on 08/12/2023 Complete Urinalysis ordered on 08/13/2023 Magnesium Level ordered on 08/14/2023 Phosphorus Level ordered on 08/14/2023 RBCs for Surgery ordered on 08/12/2023 Sodium Urine ordered on 08/12/2023 Transfuse RBCs ordered on 08/12/2023 Type and Screen ordered on 08/18/2023 Urinalysis w/hold for Urine Culture ordered on 08/12/2023 Patient Education Titles Ampicillin/Sulbactam Injectable Solution?? BVS-Below Knee Amputation Discharge Instructions?? Methadone Oral Solution?? Follow-Up Appointments Added Follow Up ?Time Frame ?Comments Ashley QUINN, Leandro Ferguson?Only if Needed.?office will call you to arrange follow up??in 4-5 weeks but if you have questions before that time our number is mentioned above Home Health Face to Face ^[facility]Health[facility] Results Discharge Labs BLOOD BANK Blood Type O Positive ()?? 08/18/2023 07:07 Antibody Screen Negative ()?? 08/18/2023 07:07 RBC Unit ID [id number] ()?? 08/12/2023 10:19 RBC Available RE ()?? 08/12/2023 10:19 ?? BLOOD COUNT & DIFF WBC 7.6 k/mm3 ()?? 08/19/2023 06:20 RBC 2.84 m/mm3 (Low)?? 08/19/2023 06:20 Hgb 7.6 Gm/dL (Low)?? 08/19/2023 06:20 Hct 25.5 % (Low)?? 08/19/2023 06:20 MCV 89.8 femtoliters ()?? 08/19/2023 06:20 MCH 26.8 pg (Low)?? 08/19/2023 06:20 MCHC 29.8 g/dL (Low)?? 08/19/2023 06:20 Platelet Count 497 k/mm3 (High)?? 08/19/2023 06:20 RDW-SD 56.2 femtoliters (High)?? 08/19/2023 06:20 MPV 8.8 femtoliters (Low)?? 08/19/2023 06:20 Nucleated RBC (Automated) 0.3 #/100 WBC'S ()?? 08/19/2023 06:20 Abs. NRBC 0.0 k/mm3 ()?? 08/19/2023 06:20 Abs. Neut 5.6 k/mm3 ()?? 08/16/2023 01:08 Abs. Lymph 2.8 k/mm3 ()?? 08/16/2023 01:08 Abs. Brantley 0.6 k/mm3 ()?? 08/16/2023 01:08 Abs. Eo 0.1 k/mm3 ()?? 08/16/2023 01:08 Abs. Baso 0.1 k/mm3 ()?? 08/16/2023 01:08 Neut % 59.6 % ()?? 08/16/2023 01:08 Lymph % 30.0 % ()?? 08/16/2023 01:08 Brantley % 5.9 % ()?? 08/16/2023 01:08 Eos % 1.2 % ()?? 08/16/2023 01:08 Baso % 0.8 % ()?? 08/16/2023 01:08 Hemoglobin (POC) POC Cartridge 7.5 Gm/dL (Low)?? 08/12/2023 20:34 Hematocrit (POC) POC Cartridge 22 % (Low)?? 08/12/2023 20:34 Imm Gran 2.5 % ()?? 08/16/2023 01:08 Abs. Imm Gran 0.2 k/mm3 ()?? 08/16/2023 01:08 ?? BLOOD GAS pH (POC) POC Cartridge 7.36 ()?? 08/12/2023 20:34 pCO2 (POC) POC Cartridge 37.6 mm Hg ()?? 08/12/2023 20:34 pO2 (POC) POC Cartridge 116 mm Hg (High)?? 08/12/2023 20:34 Estimated Bicarbonate (POC) POC Cart 21.1 mmol/L (Low)?? 08/12/2023 20:34 % O2 Sat Arterial (POC) POC Cartridge 98 % ()?? 08/12/2023 20:34 Lactate, (POC) POC Cartridge 0.8 mmol/L ()?? 08/12/2023 20:38 pH Venous (POC) POC Cartridge 7.40 ()?? 08/12/2023 10:21 pCO2 Venous (POC) POC Cartridge 32.4 mm Hg (Low)?? 08/12/2023 10:21 pO2 Venous (POC) POC Cartridge 15 mm Hg (Low)?? 08/12/2023 10:21 Est Bicarbonate (POC) POC Cartridge 20.2 mmol/L (Low)?? 08/12/2023 10:21 % O2 Sat Venous (POC) POC Cartridge 20 ()?? 08/12/2023 10:21 Base Excess (POC) POC Cartridge NEGATIVE 4 ()?? 08/12/2023 20:34 Specimen Type - Blood Gas ARTERIAL ()?? 08/12/2023 20:34 pH, Venous 7.35 ()?? 08/12/2023 10:28 ?? CARDIAC CK, Total 33 units/L ()?? 08/12/2023 19:46 High Sensitivity Troponin (HSTnT) 27 ng/L (High)?? 08/12/2023 21:00 ?? CHEM GENERAL Sodium 134 mmol/L ()?? 08/19/2023 06:20 Potassium 4.5 mmol/L ()?? 08/19/2023 06:20 Chloride 99 mmol/L ()?? 08/19/2023 06:20 Bicarbonate Level 24 mmol/L ()?? 08/19/2023 06:20 Anion Gap 11 ()?? 08/19/2023 06:20 Sodium (POC) POC Cartridge 128 mmol/L (Low)?? 08/12/2023 20:34 Potassium (POC) POC Cartridge 3.9 mmol/L ()?? 08/12/2023 20:34 Glucose Level 138 mg/dL (High)?? 08/19/2023 06:20 Glucose (POC) POC Cartridge 326 (High)?? 08/12/2023 20:34 Glucose, POC 266 mg/dL (High)?? 08/23/2023 08:18 Beta Hydroxybutyrate 3.41 mmol/L (High)?? 08/12/2023 10:28 BUN 10 mg/dL ()?? 08/19/2023 06:20 Creatinine-Blood 0.5 mg/dL ()?? 08/19/2023 06:20 Estimated GFR Creatinine 111 ML/MIN/1.73 M2 ()?? 08/19/2023 06:20 Osmolality 290 mOs/kg ()?? 08/12/2023 10:28 Calcium 7.4 mg/dL (Low)?? 08/19/2023 06:20 Calcium, Ionized pH Corrected 1.06 mmol/L (Low)?? 08/16/2023 01:08 Ionized Calcium (POC) POC Cartridge 1.14 mmol/L ()?? 08/12/2023 20:34 Phosphorus 2.7 mg/dL ()?? 08/18/2023 01:09 Magnesium 1.8 mg/dL ()?? 08/18/2023 01:09 Protein, Total 6.2 Gm/dL ()?? 08/17/2023 01:19 Albumin 2.1 Gm/dL (Low)?? 08/17/2023 01:19 AG Ratio 0.4 ()?? 08/12/2023 10:28 Alkaline Phosphatase 220 units/L (High)?? 08/17/2023 01:19 AST (SGOT) 19 units/L ()?? 08/17/2023 01:19 ALT (SGPT) 8 units/L ()?? 08/17/2023 01:19 Bilirubin, Total 0.2 mg/dL ()?? 08/17/2023 01:19 Bilirubin, Direct <0.2 mg/dL ()?? 08/17/2023 01:19 Bilirubin, Indirect Direct bilirubin is less than the measureable limit. Therefore, indirect mg/dL ()?? 08/17/2023 01:19 Lactate 1.3 mmol/L ()?? 08/12/2023 21:00 ?? ENDOCRINE/TUMOR MARKER Cortisol Level 15.6 ??g/dL ()?? 08/13/2023 10:19 ? HEME OTHER Hold Lavender Top SPECIMEN DISCARDED AFTER 24 HOURS. ()?? 08/13/2023 04:25 Hold Blue Top SPECIMEN DISCARDED AFTER 4 HOURS. ()?? 08/12/2023 13:15 ?? MISC. CHEMISTRY Hold Gel Top SPECIMEN DISCARDED AFTER 1 WEEK ()?? 08/12/2023 13:15 ? URINE OTHER Creatinine, Urine Random 10.0 mg/dL ()?? 08/13/2023 06:32 Sodium, Urine Random <20 mmol/L ()?? 08/13/2023 06:32 Osmolality, Urine Random 106 mOsm/kg ()?? 08/13/2023 06:32 Est Creatinine Clearance 120.62 mL/min ()?? 08/19/2023 08:22 ?? VIROLOGY Influenza A PCR NEGATIVE ()?? 08/12/2023 10:10 Influenza B PCR NEGATIVE ()?? 08/12/2023 10:10 RSV PCR NEGATIVE ()?? 08/12/2023 10:10 COVID-19 PCR Specimen Source NASAL ()?? 08/12/2023 10:10 COVID-19 PCR Result NEGATIVE ()?? 08/12/2023 10:10 ? Procedures(s) ?Operative Note ?? 08/14/2023 13:02??by Leandro Ramirez MD ?Preoperative Diagnosis 1. Diabetic infection, right ?? Postoperative Diagnosis Same as above ?? Operation Amputation Below Knee, Right ?? Surgeon(s) Leandro Ramirez MD (Primary Surgeon) ?? Regional Trainer Silvestre Christiansen ?? Anesthesia General Anesthesia ??Norman QUINN, Wilmer Lai (Att Anesthesiologist) ?? Estimated Blood Loss Minimal ?? Urine Output Not recorded ?? Findings Healthy appearing tissue ?? Specimen(s) None ?? Complications None ?Operative Note ?? 08/12/2023 19:07??by Tracy Campos MD ? Operation ??Amputation Below Knee Right (Primary Procedure) Surgeon(s) ??Marnie QUINN, Magan Orlando (Primary Surgeon) ??Tracy Campos MD (Resident) Regional Trainer(s) ? Anesthesia ??General Anesthesia ??Nunu QUINN, Jose Randle (Att Anesthesiologist) ??Arnoldo Juárez CRNA (FURNITURE DIPPER) ?? Preop Diagnosis right lower extremity gangrene 2/2 diabetic foot wound ? *Postop Diagnosis right lower extremity gangrene 2/2 diabetic foot wound ?? *Urine Output Urine Output ?? *Culture(s) and Specimen(s) Cultures and Specimens ??Cultures Order: No Specimens Order: Yes Sent to: Pathology ?Specimens: right BKA ? Indication for Surgery gangrene of right lower extremity ?? Estimated Blood Loss 200cc ?? Findings RLE gangrene s/p right guillotine BKA ?? Complications None ? Imaging(s) ?Chest Portable ?? 08/13/2023 00:08??by Violeta Koenig MD ? IMPRESSION: ?? There is no change from the prior study. ?Echocardiogram - Complete ?? 08/15/2023 14:15??by Jose De Jesus Albert MD ?Summary ??The left ventricular size is normal. The left ventricular wall thickness is ??mildly increased. The LV systolic function is normal . The left ventricular ??ejection fraction is 55-60 %. Cannot assess regional wall motion ??abnormalities. ??The right ventricular size and function appears grossly normal. ?? Recommendation ??Consider transesophageal echocardiography (if clinically indicated). ?? Comparison ??No prior study available for comparison. ?Foot Min 3 Views Right ?? 08/12/2023 11:28??by Arnoldo Pereira MD ? IMPRESSION: ?? Status post transmetatarsal amputation. Diffuse but inhomogeneous osteopenia without specific radiographic evidence of osteomyelitis. ?? Dorsal soft tissue swelling. No evidence of soft tissue gas or foreign body. ?Tibia/Fibula 2 Views Right ?? 08/12/2023 11:28??by Lizzette Saucedo MD ? IMPRESSION: ?? 1. There is a tract of lucency in the anterior amputated foot extending from the skin surface to the underlying bone, likely area of soft tissue injury. There are interspersed cortical irregularitiesand areas of lucency throughout the tarsal bones. These findings are concerning for osteomyelitis. MRI is recommended for further evaluation. 2. Soft tissue irregularities along the anterior and plantar aspect of the foot, concerning for diffuse soft tissue injury. Soft tissue swelling and edema throughout the foot concerning for infectious/inflammatory process such as cellulitis. 3. Irregular lucency along the lateral aspect of the lower extremity which may represent soft tissue injury. 4. Edema throughout the leg and foot. ? Consults(s) ?Consultation Note ?? 08/17/2023 14:57??by Joel Bautista MD ?Acute pain service ?Consultation Note ?? 08/17/2023 09:57??by Dillon Cooney DO ?Psychiatry ?Consultation Note ?? 08/15/2023 09:52??by Dyana Hay RN ?Wound care ?Consultation Note ?? 08/14/2023 09:43??by Cata Grady MD ?ID ?Consultation Note ?? 08/12/2023 12:38??by Magan Dye MD ?Vascular surgery ? Microbiology(s) ?Blood Culture ?? 08/12/2023 10:28 ? SPECIMEN DESCRIPTION : BLOOD RIGHT AC ?? SPECIAL REQUESTS : CRITICAL VALUE CALLED AND VERIFIED BY READBACK FOR: GPC AND GNR AND PCR ?TO [id number], [facility], 08/13 AT 0107 BY TECH [id number] ?? CULTURE : PROTEUS MIRABILIS This isolate was identified using Maldi-TOF system FOR SUSCEPTIBILITY RESULT REFER TO BLOOD CULTURE ?STAPHYLOCOCCUS AUREUS. This isolate was identified using Maldi-TOF ?system FOR SUSCEPTIBILITY RESULT REFER TO BLOOD CULTURE ?STREPTOCOCCUS AGALACTIAE SERO GROUP B This isolate was identified using ?Maldi-TOF system These AST results were performed on the Novatris ID ?and AST system ?Proteus species was identified by multiplex PCR. ?Group B beta Hemolytic Strep was identified by multiplex PCR. ?? REPORT STATUS : FINAL 08/16/2023 ? ORGANISM STREPTOCOCCUS AGALACTIAE SERO GROUP B This isolate ?was identified using Maldi-TOF system These AST ??results were performed on the Novatris ID and AST system METHOD MIN. INHIB. CONC. (MCG/ML) CLINDAMYCIN SUSCEPTIBLE ERYTHROMYCIN SUSCEPTIBLE PENICILLIN SUSCEPTIBLE ?Blood Culture, Second Order ?? 08/12/2023 10:28 ? SPECIMEN DESCRIPTION : BLOOD LEFT HAND ?? SPECIAL REQUESTS : NONE ?? CULTURE : PROTEUS MIRABILIS This isolate was identified using Maldi-TOF system These AST results were performed on the Vitek 2 ID and AST system ?ENTEROCOCCUS FAECALIS This isolate was identified using Maldi-TOF ?system These AST results were performed on the Vitek 2 ID and AST ?system ?STAPHYLOCOCCUS AUREUS. This isolate was identified using Maldi-TOF ?system These AST results were performed on the Vitek 2 ID and AST ?system ?Proteus species was identified by multiplex PCR. ?Enterococcus faecalis was identified by multi-plex PCR ?S. aureus was identified by multiplex PCR. mecA NOT detected. The ?absence of the mecA gene is associated with susceptibility to ?methicillin (MSSA). ?? REPORT STATUS : FINAL 08/16/2023 ? ORGANISM PROTEUS MIRABILIS This isolate was identified using ?Maldi-TOF system These AST results were performed on ??the Vitek 2 ID and AST system METHOD MIN. INHIB. CONC. (MCG/ML) AMPICILLIN SUSCEPTIBLE AMPICILLIN/SULBACTAM SUSCEPTIBLE CEFEPIME SUSCEPTIBLE CEFTRIAXONE SUSCEPTIBLE CIPROFLOXACIN SUSCEPTIBLE ERTAPENEM SUSCEPTIBLE GENTAMICIN SUSCEPTIBLE LEVOFLOXACIN SUSCEPTIBLE PIPERACILLIN/TAZOBAC SUSCEPTIBLE TRIMETH/SULFAMETHOX RESISTANT ?? ORGANISM ENTEROCOCCUS FAECALIS This isolate was identified ?using Maldi-TOF system These AST results were ??performed on the Vitek 2 ID and AST system METHOD MIN. INHIB. CONC. (MCG/ML) AMPICILLIN SUSCEPTIBLE VANCOMYCIN SUSCEPTIBLE GENTAMICIN SYNERGY SUSCEPTIBLE STREPTOMYCIN SYNERGY SUSCEPTIBLE ?? ORGANISM STAPHYLOCOCCUS AUREUS. This isolate was identified ?using Maldi-TOF system These AST results were ??performed on the Vitek 2 ID and AST system METHOD MIN. INHIB. CONC. (MCG/ML) CIPROFLOXACIN SUSCEPTIBLE CLINDAMYCIN RESISTANT ERYTHROMYCIN RESISTANT LEVOFLOXACIN SUSCEPTIBLE OXACILLIN SUSCEPTIBLE RIFAMPIN SUSCEPTIBLE RIFAMPIN RIFAMPIN SHOULD NOT BE USED ALONE FOR ANTIMICROBIAL RIFAMPIN THERAPY. TETRACYCLINE RESISTANT TRIMETH/SULFAMETHOX SUSCEPTIBLE VANCOMYCIN SUSCEPTIBLE ? 45_ minutes spent on discharge * Dayo Jeronimo MD: PERFORM Event Display: Discharge/Transfer Note Hospital Authored Date: [id number] Rehab unable to take patient today This note to act as progress note for the day * Dayo Jeronimo MD: PERFORM Event Display: Patient Education Leaflets Authored Date: [id number] Ampicillin/Sulbactam Injectable Solution ?? [id number] Ampicillin/Sulbactam Injectable Solution Brands: [employer] Uses For treating bacterial infection. ?? Instructions This medicine is given as an injection. Carefully follow the instructions for preparing this medicine before injection. Read and make sure you understand the instructions for measuring your dose and using the syringe before using this medicine. The medicine needs to be mixed before being injected. Always inspect the medicine before using. The liquid should be clear or light yellow. Check the medicine before each use. If the liquid medicine has any particles in it, appears discolored, or if the vial appears damaged, do not use it. Shake well to dissolve any visible particles. Do not use if particles do not disappear. Before medicine is mixed, it may be stored at room temperature - below 77 degrees F (25 degrees C). Protect medicine from light. Speak with your nurse or pharmacist about how long the medicine can be stored safely at room temperature or in the refrigerator before it needs to be discarded. Never use any medicine that has . Please ask your doctor, nurse, or pharmacist how to discard unused medicines safely. Space doses evenly to keep a steady amount of medicine in the body. If you miss a dose, contact your doctor for instructions. Drug interactions can change how medicines work or increase risk for side effects. Tell your healthcare providers about all medicines taken. Include prescription and nbse-vdy-xrpvneu medicines, vitamins, and herbal medicines. Speak with your doctor or pharmacist before starting or stopping any medicine. Tell your doctor if symptoms do not get better or if they get worse. Keep using this medicine for the full number of days that it is prescribed. Do not stop the medicine even if you start to feel better. It is very important that you follow your doctor's instructions for all blood tests. ?? Cautions Tell your doctor and pharmacist if you ever had an allergic reaction to a medicine. Some patients taking this medicine have experienced serious side effects. Please speak with your doctor to understand the risks and benefits associated with this medicine. Do not use the medication any more than instructed. Contact your doctor if you notice a change in the amount or darkening of your urine. Contact your doctor if you develop any signs of a new infection such as fever, cough, sore throat, or chills. Speak with your health care provider before receiving any vaccinations. Please tell your doctor if you have moderate to severe diarrhea while on this medicine. Do not treat the diarrhea with rxhq-tkb-eecsyon diarrhea medicine. Tell the doctor or pharmacist if you are , planning to be , or . Ask your pharmacist how to properly throw away used needles or syringes. Do not share this medicine with anyone who has not been prescribed this medicine. ?? Side Effects The following is a list of some common side effects from this medicine. Please speak with your doctor about what you should do if you experience these or other side effects. ??? diarrhea ??? pain, redness, swelling near injection ??? yeast infection of mouth ??? vaginal itching or yeast infection ??? vomiting Call your doctor or get medical help right away if you notice any of these more serious side effects: ??? bleeding or bruising ??? chest pain ??? severe, watery or bloody diarrhea ??? signs of liver damage (such as yellowing of eye or skin, dark urine, or unusual tiredness) ??? severe stomach or bowel pain ??? blood in stool ??? difficulty or discomfort urinating A few people may have an allergic reaction to this medicine. Symptoms can include difficulty breathing, skin rash, itching, swelling, or severe dizziness. If you notice any of these symptoms, seek medical help quickly. ?? Extra Please speak with your doctor, nurse, or pharmacist if you have any questions about this medicine. ?? [email or web address] IMPORTANT NOTE: This document tells you briefly how to take your medicine, but it does not tell youall there is to know about it. Your doctor or pharmacist may give you other documents about your medicine. Please talk to them if you have any questions. Always follow their advice. There is a more complete description of this medicine available in [employer]. Scan this code on your smartphone or tablet or use the web address below. You can also ask your pharmacist for a printout. If you have any questions, please ask your pharmacist. The display and use of this drug information is subject to Terms of Use. Copyright(c) 2022 [employer]. ?? 9186-4743 [employer]. All rights reserved. This information is not intended as a substitute for professional medical care. Always follow your healthcare professional's instructions. ?? * Dyana Wiggins: PERFORM Event Display: Procedures Invasive Line Authored Date: [id number] Vascular Access Insertion Entered On: 08/20/2023 10:46 EST Performed On: 08/20/2023 10:44 EST by Dyana Wiggins Vascular Access Insertion Vascular Access Insertion Comments : Mid arm circumference 10cm above AC Fossa-24cm Dyana Wiggins - 08/20/2023 13:15 EST Vascular Access Insertion Site : Other: RUE basilic vein Vascular Access Insertion Side : Right Vascular Access Catheter Length : 20cm Complications during Insertion : None Tolerated CLIP procedure well : Yes Insertion Attempts : 1 Dyana Wiggins - 08/20/2023 11:49 EST Date of Vascular Access Insertion : 08/20/2023 EST Procedure Location Vascular Access : IV Room W4 It Program Manager of Vascular Access : Dyana Wiggins Occupation of Vascular Access It Program Manager : Registered nurse Was exchange engineer a member of PICC/IV Team : Yes Dyana Wiggins 08/20/2023 10:44 EST Dyana Wiggins 08/20/2023 10:44 EST Procedural Comments Risk Factors and Labs Reviewed : Yes Dyana Wiggins 08/20/2023 13:15 EST Anticoagulation Therapy : No Antiplatelet Therapy : No Dyana Wiggins 08/20/2023 10:44 EST Was vascular access order placed : Yes Vascular Access Type : Other: Midline Time Out Performed : Yes Time Out Data : Patient identified, Site verified, Procedure verified Reason for Vascular Access Insertion : Medication requires use of vascular access Suspected Vascular Access Infection : No, the access was not exchanged over a guide wire Vascular Access Procedure Check : Consent obtained Hand Hygiene prior to insertion : Yes Maximal sterile barriers used : Mask, Sterile gown, Large sterile full body drape, Sterile gloves, Ultrasound sterile cover, Cap Sterile Field Maintained : Yes Skin Preparation : Chlorhexidine (CHG) Skin Prep dry at first skin puncture : Yes Antimicrobial coated catheter used : No Successful central line placement : Yes Vascular Access Catheter Type : Other: Provena Power Midline Vascular Access Catheter Size : 3fr Vessel Identified By : Ultrasound Vascular Access Insertion Circumstance : Non-emergent Vascular Access Catheter Securement : Statlock Vascular Access Dressing : Occlusive Follow-up CXR : Not applicable CXR Comment : not a central line Dyana Wiggins 08/20/2023 10:44 EST DCP GENERIC CODE Suture needles : 0 [place] : 3 Scalpels : 1 Clamps : 0 Guide Wires : 1 Dyana Wiggins 08/20/2023 10:44 EST Vascular Access Device QA : BARD Provena Power Midline 3 fr @ 20cm Dyana Wiggins 08/20/2023 11:49 EST Vascular Access Device Lot Number : [id number] Vascular Access Device Code : [id number] Vascular Access Device Expiration Date : 10/04/2024 EST Dyana Wiggins 08/20/2023 10:44 EST Surgical pathology study * Event Display: Surgical Pathology Authored Date: [id number] Patient Name: DIMPLE MENDENHALL Lab Patient : 1970 (Age: 53) Collection Date: 08/12/2023 Accession Date: 08/14/2023 Sign Out Date: 08/16/2023 Tissue Source: 1:RIGHT BELOW KNEE AMPUTATION Final Diagnosis: Right leg, below the knee amputation: - Cutaneous ulceration and gangrenous necrosis of underlying soft tissues. - Acute osteomyelitis of distal bone. - Status post amputation of the first through fifth toes. Primary Pathologist:Mane Briggs M.D. electronically signed out by: Mane Briggs M.D. / ALEXANDER Gross Description: A. Specimen Identification: 1. Received labeled as right below the knee amputation . 2. Received fresh. 3. Laterality: Right. 4. Type: Below the knee amputation. B. Is There An Accompanying Disposal Authorization Form?: Yes. 1. Signed by: The patient on 08/12/2023. C. External Examination: 1. Extremity length, from heel to proximal margin: 22 cm. 2. Foot length, from heel to distal foot/prior amputation site: 13.5 cm. 3. Length of tibia exposed: 1.8 cm Length of fibula exposed: 2.8 cm 4. Presence of ulcers: The distal foot and plantar foot are predominantly replaced by a 12.8 x 9 cmulcerated area. 5. Presence of surgical incisions/scars: There is an 8.5 cm linear scar present at the ulcerated distal foot consistent with prior distal digit excision. 6. Presence of other skin lesions: The remaining skin ranges from south-pink, softened to south-white, roughened; minimal uninvolved skin is grossly present. 7. Color of skin: South-white. 8. Any absent digits?: All digits are previously removed, absent. D. Comment: None. E. Additional Tissue Processing: None. F. Summary Of Sections: Soda Fountain Operator sections are submitted following decalcification as follows: 1-2 pieces, ulcerated area 2-multiple pieces, bone subjacent to ulcerated area. (KM)* Phone #: [phone], On-Call Pathologist: [id number] Admission evaluation note * Austin QUINN, Eliezer: PERFORM, MODIFY Event Display: Admission Note Authored Date: Patient: ??DIMPLE SIDDIQUI ? Age:??53 Years?Sex:??Female?:??1970?? Chief Complaint/Reason for Consultation see TUNG 1 Sheet History of Present Illness Please note:??This is??MICU to??medicine??floor transfer note. ?? 53-year-old lady with PMH of insulin-dependent T2DM; multiple LE amputations in the past; polysubstance abuse (former smoker quit 2 months ago; former IV drug user, quit 2 years ago following suicideattempt); CVA following overdose; presented to the ED with right foot infection; found to have right foot gangrene and concern for osteomyelitis; underwent right BKA by vascular surgery, in PACU, patient was in septic shock requiring pressor support hence transferred to MICU; patient continued on vancomycin and Zosyn; patient was also in DKA, resolved; has been stable, off pressors, hence being transferred back to medicine service. ?? Vitals: Afebrile, HR 80s, RR 18, BP 90s-100s/50-60s, saturating well on room air. ?? Labs: -WBC trending down from 19, to 16; Hb 7.3, received 1 unit blood, no repeat CBC done. -BMP showed normal anion gap, bicarb 20, blood glucose 99; normal renal function, normal ionized calcium; lactate normalized. ?? Blood cultures drawn on 08/12/2023, both sets growing gram-positive cocci and gram-negative rods, preliminary result. Review of Systems Positive for??pain. Negative for fevers, chills. Negative for chest pain, shortness of breath. Negative for abdominal pain, nausea, vomiting, diarrhea, dysuria. Objective Vital Signs?? Temperature: 97.8 DegF (08/14/23 01:33:00) Temperature Route: Oral (08/14/23 01:33:00) Pulse Rate: 83 bpm (08/14/23 01:33:00) Heart Rate Monitored: 85 bpm (08/14/23 01:00:00) Respiratory Rate: 18 br/min (08/14/23 03:36:00) Systolic Blood Pressure: 96 mm Hg (08/14/23 01:33:00) Diastolic Blood Pressure:??53 mm Hg??Low (08/14/23 01:33:00) Blood pressure sites: Arm, left (08/14/23 01:33:00) Mean Arterial Pressure: 67 mm Hg (08/14/23 01:33:00) Pulse Pressure: 43 mm Hg (08/14/23 01:33:00) Oxygen Saturation: 100 % (08/14/23 01:33:00) Mode of Delivery (Oxygen): Room air (08/14/23 01:33:00) Early Warning Score: 4 (08/14/23 03:39:07) SOFA Calculated: -1 (08/13/23 22:08:44) ? Physical Exam General: Sleeping comfortably in bed,??on being woken up,??complaining of pain.?? Does not seem to be in acute distress,??following commands appropriately. HEENT: NC/AT, PERRLA, no pallor, no icterus, moist mucous membranes. Neck: Supple, no JVD Respiratory: Diminished breath sounds at bilateral bases. ??No wheezes, rhonchi or crackles appreciated. CVS: Regular rhythm. ??Normal S1-S2 heard. ??No murmurs appreciated. Abdomen: Soft, nondistended, nontender, Normoactive bowel sounds. Neurological: Moving all 4 limbs freely.?No new focal??neurodeficits appreciated. Extremities: B/L pedal pulses palpable.?? R BKA now, dressing in place. Left foot with L1-2 amputation, well-healed,??leg showed chronic??skin changes,??erythema/warmth??concerning for??cellulitis. Assessment/Plan Diagnoses BERNABE (acute kidney injury) ??(N17.9) Atelectasis ??(J98.11) Bacteremia ??(R78.81) Cellulitis of leg ??(L03.119) Diabetic neuropathy ??(E11.40) Encephalopathy ??(G93.40) Gangrene ??(I96) Hemorrhagic shock ??(R57.8) High anion gap metabolic acidosis ??(E87.29) Lactic acidosis ??(E87.20) Pain ??(R52) Prolonged QT interval ??(R94.31) T2DM (type 2 diabetes mellitus) ??(E11.9) Toxic metabolic encephalopathy ??(G92.8) 1. ??S/P BKA (below knee amputation) unilateral ??(Z89.519) 2. ??Diabetic foot infection ??(E11.628) 3. ??History of intravenous drug abuse ??(F19.11) 4. ??History of smoking ??(Z87.891) 5. ??History of opioid abuse ??(F11.11) 6. ??HTN (hypertension) ??(I10) 7. ??Sepsis ??(A41.9) 8. ??Septic shock ??(R65.21) 9. ??DKA (diabetic ketoacidosis) ??(E11.10) 10. ??Anemia ??(D64.9) 11. ??Cellulitis of left lower extremity ??(L03.116) 12. ??Acute lactic acidosis ??(E87.21) 13. ??Severe sepsis with septic shock ??(R65.21) ?? Assessment:??53-year-old lady with PMH of insulin-dependent T2DM; multiple LE amputations in the past; polysubstance abuse (former smoker quit 2 months ago; former IV drug user, quit 2 years ago following suicide attempt); CVA following overdose; presented; presented with??right??diabetic foot, gangrene, DKA;??s/p right BKA,??currently in septic shock??requiring pressor support; being admitted under??[facility] service. ?? Sepsis (A41.9):??- Bacteremia (R78.81):??-Blood cultures drawn on 08/12/2023, both sets growing gram- positive cocci and gram-negative rods, preliminary result. -Repeat blood cultures ordered for morning of 08/14/2023 -Continue vancomycin and??Zosyn; follow blood cultures and modify antibiotics??accordingly. ?? Cellulitis of leg (L03.119):??-??Left leg cellulitis; continue antibiotics. ?? Pain (R52):??-??Continue Tylenol,??Dilaudid and oxycodone ?? Diabetic foot infection (E11.628):??- Gangrene (I96):??- S/P BKA (below knee amputation) unilateral (Z89.519):??-??Patient presented with??right foot infection,??s/p??BKA on 08/12/2023 evening??by vascular surgery;??continue to follow vascular surgery recommendation - Right BKA stump wound care: wet-to-dry to wound base, covered by DSD and ajith wrap - Revision R BKA timing to be determined this week ?? Anemia (D64.9):??-??Acute on chronic anemia; hemoglobin dropped to 7.2;??s/p 1 unit PRBC -Repeat CBC ?? HTN (hypertension) (I10):??-??Hold home lisinopril ?? T2DM (type 2 diabetes mellitus) (E11.9):??-??Continue Lantus 35 units??daily; insulin sliding scale;??POC glucose checks, diabetic diet,??as needed hypoglycemia measures ?? Diabetic neuropathy (E11.40):??-??On gabapentin and duloxetine ?? History of opioid abuse (F11.11):??-former smoker quit 2 months ago; former IV drug user, quit 2 years ago following suicide attempt -[facility] note mentioned that patient needs to be started on home methadone,??nothing ordered. ?? Prolonged QT interval (R94.31):??-??Avoid QT prolonging agents ?? Hemorrhagic shock (R57.8):??- Septic shock (R65.21):??-??Component of septic and hemorrhagic shock;??resolved. Patient received 1unit PRBC Lactic acidosis (E87.20):??-??Resolved Atelectasis (J98.11):??-IC q2hrly;??repeat CXR postop DKA (diabetic ketoacidosis) (E11.10):??-??Resolved Toxic metabolic encephalopathy (G92.8):??-resolved BERNABE (acute kidney injury) (N17.9):??-??Resolved ?? VTE Prophylaxis:??-SQH ?VTE Prophylaxis Assessment:??VTE Prophylaxis Ordered ?? Code Status:??-Full Code ?Order Code Status:??Code Status Ordered ? Date of Service: 08/14/23 I spent a total of??60 minutes, including both nnht-td-isbg and htz-mixi-wh-face time on the date of the encounter, addressing the above diagnoses. Activities performed in this time include chart review, obtaining/reviewing history, performing a medically necessary evaluation, CODE STATUS ??discussion, documentation, charting and counseling, documentation, charting and counseling. ?? Please note: This note has been prepared using voice recognition software ([employer]). As a result errors may occur. When identified these research assistant member errors have been corrected. While every attempt is made to correct errors during dictation, errors may still exist; for any clarifications, pleasereach out to me on [employer] or pager. ?? Histories Allergies Allergies ?(Active and Proposed Allergies Only) predniSONE? (Severity: Unknown severity, Onset: Unknown) ? Past Medical History/Problem List Active Problems??(5) History of intravenous drug abuse History of opioid abuse History of smoking HTN (hypertension) S/P BKA (below knee amputation) unilateral ? Past Surgical History No surgery history documented. ? Social History No social history documented. ? Family History No family history recorded. ? Medications Home Medications apixaban (Eliquis 5 mg oral tablet)?1?tab(s)?5?Milligram?By Mouth?2 times a day Atorvastatin (atorvastatin 80 mg oral tablet)?1?tab(s)?80?Milligram?By Mouth?Daily at bedtime Duloxetine (duloxetine 30 mg oral enteric coated capsule)?1?capsule?30?Milligram?By Mouth?Daily empagliflozin (Jardiance 25 mg oral tablet)?1?tab(s)?25?Milligram?By Mouth?Daily in AM Insulin Glargine (Lantus Solostar Pen 100 units/mL subcutaneous solution)?35?unit(s)?Subcutaneous Injection?2 times a day before breakfast and dinne Lisinopril (lisinopril 5 mg oral tablet)?5?Milligram?1?tablet?By Mouth?Daily Metformin (metFORMIN 500 mg oral tablet)?1?tab(s)?500?Milligram?By Mouth?2 times a day Miscellaneous Rx (FREESTYLE LITE BLOOD GLUCOSE STRIPS)?USE TO TEST BLOOD SUGAR EVERY 8 HOURS Miscellaneous Rx (FREESTYLE LANCETS 100)?USE ONE EACH BY OTHER ROUTE THREE TIMES DAILY ? Results Recent Labs CHEM GENERAL Sodium 132 mmol/L (Low)?? 08/13/2023 16:00 Potassium HEMOLYZED mmol/L ()?? 08/13/2023 16:00 Chloride 104 mmol/L ()?? 08/13/2023 16:00 Bicarbonate Level 20 mmol/L (Low)?? 08/13/2023 16:00 Anion Gap 8 ()?? 08/13/2023 16:00 Glucose Level 199 mg/dL (High)?? 08/13/2023 16:00 Glucose, POC 201 mg/dL (High)?? 08/13/2023 22:47 BUN 10 mg/dL ()?? 08/13/2023 16:00 Creatinine-Blood 0.6 mg/dL ()?? 08/13/2023 16:00 Estimated GFR Creatinine 107 ML/MIN/1.73 M2 ()?? 08/13/2023 16:00 Calcium 6.8 mg/dL (Low)?? 08/13/2023 16:00 Magnesium 1.9 mg/dL ()?? 08/13/2023 16:00 ?? ENDOCRINE/TUMOR MARKER Cortisol Level 15.6 ??g/dL ()?? 08/13/2023 10:19 ?? HEME OTHER Hold Lavender Top SPECIMEN DISCARDED AFTER 24 HOURS. ()?? 08/13/2023 04:25 ?? URINE OTHER Creatinine, Urine Random 10.0 mg/dL ()?? 08/13/2023 06:32 Sodium, Urine Random <20 mmol/L ()?? 08/13/2023 06:32 Osmolality, Urine Random 106 mOsm/kg ()?? 08/13/2023 06:32 Est Creatinine Clearance 100.52 mL/min ()?? 08/13/2023 11:02 ? Microbiology ?? COVID-19, RSV, and Flu A/B, Rapid PCR?? Completed?? Source: Nasal Body Site: Nose Collected Dt/Tm: 08/12/2023 10:20 Last Updated Dt/Tm: 08/12/2023 12:33 ? * Mk QUINN, [place]: PERFORM, MODIFY, MODIFY, MODIFY, MODIFY, MODIFY, MODIFY Event Display: Admission Note Authored Date: [id number] Patient: ??DIMPLE SIDDIQUI ? Age:??53 Years?Sex:??Female?:??1970?? Chief Complaint/Reason for Consultation see TUNG 1 Sheet History of Present Illness 53 F with PMH insulin-dependent T2DM; multiple LE amputations in the past; polysubstance abuse (former smoker quit 2 months ago; former IV drug user, quit 2 years ago following suicide attempt); CVA following overdose; presented to the ED with right foot infection on 08/12/23 PM.?? Reportedly patientignoring her wounds which worsened causing bacteremia.?? Patient arrived to the emergency department with concerns of fevers, chills, worsening pain and malaise.?? She was hypotensive, tachycardic onarrival. For concerns of septic shock, patient received vancomycin and Zosyn.?? She was also found to have DKA on labs. ED physician found foul-smelling purulence from wound on lateral aspect of plantar foot, necrotic eschar over entire right plantar foot and necrosis affecting lateral aspect of right calf. ?? Labs on arrival indicate: Leukocytosis WBC 19.3 improving to 16.0 Normocytic anemia H&H 9.2/29.9 worsened to 7.3/23.2 Thrombocytosis platelet count 482 downtrending to 391 Serum sodium 120 improving to 125 Bicarbonate 20 downtrending to 17 Anion gap 18 downtrending to 14 Glucose range of 298-437 Beta hydroxybutyrate 3.41 BUN 33 improving to 24 Lactate 2.3 improving to 1.3 Troponin stable between 25 and 29 ?? Imaging synopsis: 1) Chest x-ray: Right lung base opacity and left basilar atelectasis. 2) right foot x-ray (preop): Dorsal soft tissue swelling without evidence of foreign body, without definite erosion or periosteal reaction. 3) Right Tib/Fib XR:?? There is a tract of lucency in the anterior amputated foot extending from the skin surface to the underlying bone, likely area of soft tissue injury. There are interspersed cortical irregularities and areas of lucency throughout the tarsal bones. These findings are concerningfor osteomyelitis. Soft tissue irregularities along the anterior and plantar aspect of the foot, concerning for diffuse soft tissue injury. Soft tissue swelling and edema throughout the foot concerning for infectious/inflammatory process such as cellulitis.Irregular lucency along the lateral aspectof the lower extremity which may represent soft tissue injury.Edema throughout the leg and foot. ?? Patient was started on Zosyn on arrival for concerns of septic shock. Vancomycin was also ordered but not started. She was also started on an insulin drip for management of her DKA. ?? Vascular surgery was contacted, and patient underwent a right guillotine BKA for RLE gangrene secondary to her diabetic foot infection.?? She was then transferred to the [facility], where she was found to be hypotensive and hence phenylephrine was started.?? Patient was given 4.5 L of crystalloids since a rrival (2.5 L preop, 2 L postop), blood pressures could not be titrated off.? Patient was accepted to medical ICU for management of DKA as well as hemodynamic instability post-operation. Review of Systems somnolent so no RoS can be??elicited Objective Vital Signs?? Temperature: 97.1 DegF (08/13/23 00:00:00) Temperature Route: Temporal (08/13/23 00:00:00) Pulse Rate:??102 bpm??High (08/12/23 16:53:00) Heart Rate Monitored: 72 bpm (08/13/23 00:15:00) Respiratory Rate:??15 br/min??Low (08/13/23 00:15:00) Systolic Blood Pressure: 104 mm Hg (08/13/23 00:15:00) Diastolic Blood Pressure:??54 mm Hg??Low (08/13/23 00:15:00) Blood pressure sites: Arm, left (08/12/23 20:00:00) Mean Arterial Pressure: 84 mm Hg (08/12/23 16:53:00) Pulse Pressure: 53 mm Hg (08/12/23 22:00:00) Oxygen Saturation: 99 % (08/13/23 00:15:00) Liters per Minute: 3 L/min (08/13/23 00:00:00) Mode of Delivery (Oxygen): Nasal cannula (08/13/23 00:00:00) Early Warning Score:??11??Critical (08/12/23 17:03:11) ? Intake/Output? 08/12 14:16 08/13 07:00 08/12 07:00 08/11 07:00 08/10 07:00 ?? 08/13 00:44 08/13 00:44 08/13 06:59 08/12 06:59 08/11 06:59 Intake ? 3770 ?0 ? 3770 ?0 ?0 Output ? 1150 ?0 ? 1150 ?0 ?0 Net Total ? 2620 ?0 ? 2620 ?0 ?0 ? Physical Exam Gen ?awake, alert, oriented to self, location, date, and situation? HEENT?NCAT, conjunctivae clear, nasopharynx without congestion or erythema, MMM Neck ?supple, no thyromegaly noted? Cardiac ?no JVD. RRR, no murmurs, rubs, or gallops noted.? Pulmonary ?lungs CTAB with good air entry??in??all lobes? Abdomen ?soft, NT, ND, good bowel sounds. no HSM or masses noted.? /rectal ?deferred? MSK/Ext ?no cyanosis, clubbing, or edema. good perfusion.??, ??no joint swelling or erythema noted.? , left LE with multiple dry ulcers and evidence of MT amputation. RLE with BKA wrapped in AJITH wrap.? Derm ?no new rashes noted? Lymph ?no cervical, supraclavicular LAD noted.? Neuro ?PERRL. Assessment/Plan ?? 53 F with PMH insulin-dependent T2DM; multiple LE amputations in the past; polysubstance abuse (former smoker quit 2 months ago; former IV drug user, quit 2 years ago following suicide attempt); stroke following overdose admitted for concerns of septic shock secondary to cellulitis/osteomyelitis and soft tissue infection. ?? Neuro: Metabolic encephalopathy Diabetic neuropathy Acute pain from recent BKA History of polysubstance use History of stroke Plan: -Tylenol, oxycodone, Dilaudid as needed based on pain -Treat underlying cause of bacteremia leading to metabolic encephalopathy with antibiotics as below -??Restart home duloxetine and gabapentin when mental status improved ?? Cardiovascular: Distributive shock (septic pre-op vs. vasoplegic post-op) Hypovolemic shock due to acute blood loss in operation and dehydration prior to presentation s/p 1 u pRBC Concern for peripheral arterial and venous disease Prolonged QTc Hx Hypertension Plan: -Levophed for MAP goal greater than 65.?? Wean as tolerated -Cardiac monitoring -Vascular surgery consulted appreciate recs for management of LE infection likely from diabetes + possible PAD/PVD -Check cortisol level in the morning to rule out vasoplegia -Avoid QT prolonging medications - Hold home lisinopril while on pressors ?? Pulmonary: Acute hypoxic respiratory failure Right lung base opacity Bibasilar atelectasis Status: Patient has no oxygen requirement.?? Has mild cough.?? No worsening sputum production.?? Also has leukocytosis without fevers.?? Currently covered for pneumonia by Vanco/Zosyn Rx for soft tissue infection. Plan: -Monitor fever curve -Monitor CBC -If worsening O2 requirement, can add atypical coverage to Vanco/Zosyn. - Incentive spirometer Q2 hrs ?? Renal: Hyponatremia Anion gap metabolic acidosis Status: Gapped acidosis likely secondary to starvation ketosis??and bacteremia.?? Hyponatremia likely from poor p.o. intake due to acute infection Plan: -Urine osmolality and urine sodium to qualify because -Volume repletion with crystalloid and free water -Renally dose all medications ?? GI: No acute concerns ?? Endocrine: Hyperglycemia with ?Diabetic ketoacidosis Status: Patient was started on insulin drip prior to arrival to ICU. Likely had hyperglycemia and starvation ketosis causing elevated BHB. Plan: - DKA ICU protocol ordered - hypoglycemia measures ordered ?? MSK: RLE osteomyelitis and soft tissue infection s/p BKA LLE cellulitis Plan: -Vascular surgery following. Appreciate recs -Continue Vancomycin and Zosyn . Follow up blood culture and deep wound culture to titrate antibiotics ?? ID: RLE osteomyelitis and soft tissue infection s/p BKA LLE cellulitis ?Community acquired pneumonia Plan: -Continue Vancomycin and Zosyn . Follow up blood culture and deep wound culture to titrate antibiotics -Consider adding atypical coverage if hypoxia worsens concerning for CAP ?? Heme: Acute on Chronic Anemia secondary to hemorrhage during operation s/p 1u pRBC Plan: - Trend CBC. Consider transfusing pRBC for Hb/Hct < 7/21 - Outpatient follow up for chronic causes ?? Diet: NPO. Can start diabetic diet once DKA resolved, if off pressors and passed bed side swallow DVT ppx: Heparin sub cu Code: FULL ? Discussed with Dr. Garcias Histories Allergies Allergies ?(Active and Proposed Allergies Only) predniSONE? (Severity: Unknown severity, Onset: Unknown) ? Past Medical History/Problem List Active Problems??(5) History of intravenous drug abuse History of opioid abuse History of smoking HTN (hypertension) S/P BKA (below knee amputation) unilateral ? Past Surgical History No surgery history documented. ? Social History No social history documented. ? Family History No family history recorded. ? Medications Home Medications apixaban (Eliquis 5 mg oral tablet)?1?tab(s)?5?Milligram?By Mouth?2 times a day Atorvastatin (atorvastatin 80 mg oral tablet)?1?tab(s)?80?Milligram?By Mouth?Daily at bedtime Duloxetine (duloxetine 30 mg oral enteric coated capsule)?1?capsule?30?Milligram?By Mouth?Daily empagliflozin (Jardiance 25 mg oral tablet)?1?tab(s)?25?Milligram?By Mouth?Daily in AM Insulin Glargine (Lantus Solostar Pen 100 units/mL subcutaneous solution)?35?unit(s)?Subcutaneous Injection?2 times a day before breakfast and dinne Lisinopril (lisinopril 5 mg oral tablet)?5?Milligram?1?tablet?By Mouth?Daily Metformin (metFORMIN 500 mg oral tablet)?1?tab(s)?500?Milligram?By Mouth?2 times a day Miscellaneous Rx (FREESTYLE LITE BLOOD GLUCOSE STRIPS)?USE TO TEST BLOOD SUGAR EVERY 8 HOURS Miscellaneous Rx (FREESTYLE LANCETS 100)?USE ONE EACH BY OTHER ROUTE THREE TIMES DAILY ? Inpatient Medications Medications (20) Active SCHEDULED: (6) Calcium Gluconate 9.2mEq/100mLNaCL (2Gm) ??9.2 mEq 100 mL, IVPB, Once Heparin 5000 units/mL Inj (1 mL) (Heparin Inj) ??5,000 units 1 mL, Subcutaneous Injection, 3 times a day NaCl 0.9% Flush 3ml (NaCL 0.9% Flush) ??3 mL, IV Push, Every 8 hours NaCl 0.9% Flush 3ml (NaCL 0.9% Flush) ??3 mL, IV Push, Every 8 hours Piperacillin/Tazobactam 3.375 Gm Inj (Zosyn Extended IVPB) ??3.375 Gm, IVPB, Every 8 hours Vancomycin (Vancomycin IVPB) ??15 mg/kg, IVPB, Every 12 hours CONTINUOUS: (4) Insulin R 100 units in 100 mL NaCL 100 units [2 units/hr] + NaCL 0.9% Premixed IV 100 mL (Insulin R100 units in 100 mL Premix 100 units [2 units/hr] + NaCL 0.9% Premixed IV 100 mL) ??100 mL, IV Infusion, 2 mL/hr Insulin R 100 units in 100 mL NaCL 100 units [7 units/hr] + NaCL 0.9% Premixed IV 100 mL (Insulin R100 units in 100 mL Premix 100 units [7 units/hr] + NaCL 0.9% Premixed IV 100 mL) ??100 mL, IV Infusion, 7 mL/hr NaCL 0.9% (1000 mL) Cont IV 1,000 mL (NaCL 0.9% 1,000 mL) ??1,000 mL, IV Infusion, 150 mL/hr NORepinephrine 4mg / 250mL D5W 4 mg (Levophed 4 mg / D5W 250 mL 4 mg) ??4 mg 250 mL, IV Infusion PRN: (10) Acetaminophen 325 mg Tablet (Acetaminophen Tablet) ??650 mg, By Mouth, Every 4 hours Dextromethorphan-Guaifenesin 20 mg-200 mg/10 mL Liqu UD (Robitussin DM Liquid) ??10 mL, By Mouth, Every 4 hours Docusate Sodium 100 mg Capsule (Docusate Sodium Capsule) ??100 mg 1 capsule, By Mouth, 2 times a day Haloperidol Lactate 5 mg/mL Inj (1 mL) (Haloperidol LACTATE Inj (PACU ONLY)) ??1 mg 0.2 mL, IV Push, Once Melatonin 3 mg Tablet (Melatonin Tablet) ??3 mg, By Mouth, Daily at bedtime NaCl 0.9% Flush 3ml (NaCL 0.9% Flush) ??3 mL, IV Push, Every 8 hours nalOXONE ??400mcg/mL Inj (nalOXONE Inj) ??0.04 mg 0.1 mL, IV Push, Every 5 minutes Polyethylene Glycol 17 Gm Powder (MiraLax Powder) ??17 Gm 1 pack/packet, By Mouth, Daily Senna Tablet ??8.6 mg 1 tablet, By Mouth, 2 times a day Simethicone 80 mg Chewable Tablet (Simethicone Tablet) ??80 mg, Chew, 3 times a day ? Results Recent Labs BLOOD BANK Blood Type O Positive ()?? 08/12/2023 10:19 Antibody Screen Negative ()?? 08/12/2023 10:19 RBC Unit ID [id number] ()?? 08/12/2023 10:19 RBC Available IS ()?? 08/12/2023 10:19 ?? BLOOD COUNT & DIFF WBC 16.0 k/mm3 (High)?? 08/12/2023 19:46 RBC 2.74 m/mm3 (Low)?? 08/12/2023 19:46 Hgb 7.3 Gm/dL (Low)?? 08/12/2023 19:46 Hct 23.2 % (Low)?? 08/12/2023 19:46 MCV 84.7 femtoliters ()?? 08/12/2023 19:46 MCH 26.6 pg (Low)?? 08/12/2023 19:46 MCHC 31.5 g/dL (Low)?? 08/12/2023 19:46 Platelet Count 391 k/mm3 ()?? 08/12/2023 19:46 RDW-SD 49.1 femtoliters (High)?? 08/12/2023 19:46 MPV 9.9 femtoliters ()?? 08/12/2023 19:46 Nucleated RBC (Automated) 0.0 #/100 WBC'S ()?? 08/12/2023 19:46 Abs. NRBC 0.0 k/mm3 ()?? 08/12/2023 19:46 Abs. Neut 13.9 k/mm3 (High)?? 08/12/2023 19:46 Abs. Lymph 0.9 k/mm3 ()?? 08/12/2023 19:46 Abs. Brantley 1.0 k/mm3 (High)?? 08/12/2023 19:46 Abs. Eo 0.0 k/mm3 ()?? 08/12/2023 19:46 Abs. Baso 0.1 k/mm3 ()?? 08/12/2023 19:46 Neut % 86.9 % (High)?? 08/12/2023 19:46 Lymph % 5.4 % (Low)?? 08/12/2023 19:46 Brantley % 6.4 % ()?? 08/12/2023 19:46 Eos % 0.1 % ()?? 08/12/2023 19:46 Baso % 0.3 % ()?? 08/12/2023 19:46 Hemoglobin (POC) POC Cartridge 7.5 Gm/dL (Low)?? 08/12/2023 20:34 Hematocrit (POC) POC Cartridge 22 % (Low)?? 08/12/2023 20:34 Imm Gran 0.9 % ()?? 08/12/2023 19:46 Abs. Imm Gran 0.2 k/mm3 ()?? 08/12/2023 19:46 ?? BLOOD GAS pH (POC) POC Cartridge 7.36 ()?? 08/12/2023 20:34 pCO2 (POC) POC Cartridge 37.6 mm Hg ()?? 08/12/2023 20:34 pO2 (POC) POC Cartridge 116 mm Hg (High)?? 08/12/2023 20:34 Estimated Bicarbonate (POC) POC Cart 21.1 mmol/L (Low)?? 08/12/2023 20:34 % O2 Sat Arterial (POC) POC Cartridge 98 % ()?? 08/12/2023 20:34 Lactate, (POC) POC Cartridge 0.8 mmol/L ()?? 08/12/2023 20:38 pH Venous (POC) POC Cartridge 7.40 ()?? 08/12/2023 10:21 pCO2 Venous (POC) POC Cartridge 32.4 mm Hg (Low)?? 08/12/2023 10:21 pO2 Venous (POC) POC Cartridge 15 mm Hg (Low)?? 08/12/2023 10:21 Est Bicarbonate (POC) POC Cartridge 20.2 mmol/L (Low)?? 08/12/2023 10:21 % O2 Sat Venous (POC) POC Cartridge 20 ()?? 08/12/2023 10:21 Base Excess (POC) POC Cartridge NEGATIVE 4 ()?? 08/12/2023 20:34 Specimen Type - Blood Gas ARTERIAL ()?? 08/12/2023 20:34 pH, Venous 7.35 ()?? 08/12/2023 10:28 ?? CARDIAC CK, Total 33 units/L ()?? 08/12/2023 19:46 High Sensitivity Troponin (HSTnT) 27 ng/L (High)?? 08/12/2023 21:00 ?? CHEM GENERAL Sodium 125 mmol/L (Low)?? 08/12/2023 21:00 Potassium 4.4 mmol/L ()?? 08/12/2023 21:00 Chloride 94 mmol/L (Low)?? 08/12/2023 21:00 Bicarbonate Level 17 mmol/L (Low)?? 08/12/2023 21:00 Anion Gap 14 ()?? 08/12/2023 21:00 Sodium (POC) POC Cartridge 128 mmol/L (Low)?? 08/12/2023 20:34 Potassium (POC) POC Cartridge 3.9 mmol/L ()?? 08/12/2023 20:34 Glucose Level 298 mg/dL (High)?? 08/12/2023 21:00 Glucose (POC) POC Cartridge 326 (High)?? 08/12/2023 20:34 Glucose, POC 338 mg/dL (High)?? 08/12/2023 20:18 Beta Hydroxybutyrate 3.41 mmol/L (High)?? 08/12/2023 10:28 BUN 24 mg/dL (High)?? 08/12/2023 21:00 Creatinine-Blood 0.8 mg/dL ()?? 08/12/2023 21:00 Estimated GFR Creatinine 92 ML/MIN/1.73 M2 ()?? 08/12/2023 21:00 Osmolality 290 mOs/kg ()?? 08/12/2023 10:28 Calcium 7.4 mg/dL (Low)?? 08/12/2023 21:00 Ionized Calcium (POC) POC Cartridge 1.14 mmol/L ()?? 08/12/2023 20:34 Phosphorus 4.5 mg/dL ()?? 08/12/2023 19:46 Magnesium 1.7 mg/dL ()?? 08/12/2023 21:00 Protein, Total 6.3 Gm/dL ()?? 08/12/2023 19:46 Albumin 1.8 Gm/dL (Low)?? 08/12/2023 19:46 AG Ratio 0.4 ()?? 08/12/2023 10:28 Alkaline Phosphatase 157 units/L (High)?? 08/12/2023 19:46 AST (SGOT) 29 units/L ()?? 08/12/2023 19:46 ALT (SGPT) 15 units/L ()?? 08/12/2023 19:46 Bilirubin, Total 0.3 mg/dL ()?? 08/12/2023 19:46 Bilirubin, Direct 0.2 mg/dL ()?? 08/12/2023 19:46 Bilirubin, Indirect 0.1 mg/dL ()?? 08/12/2023 19:46 Lactate 1.3 mmol/L ()?? 08/12/2023 21:00 ?? HEME OTHER Hold Lavender Top SPECIMEN DISCARDED AFTER 24 HOURS. ()?? 08/12/2023 13:15 Hold Blue Top SPECIMEN DISCARDED AFTER 4 HOURS. ()?? 08/12/2023 13:15 ?? MISC. CHEMISTRY Hold Gel Top SPECIMEN DISCARDED AFTER 1 WEEK ()?? 08/12/2023 13:15 ?? VIROLOGY Influenza A PCR NEGATIVE ()?? 08/12/2023 10:10 Influenza B PCR NEGATIVE ()?? 08/12/2023 10:10 RSV PCR NEGATIVE ()?? 08/12/2023 10:10 COVID-19 PCR Specimen Source NASAL ()?? 08/12/2023 10:10 COVID-19 PCR Result NEGATIVE ()?? 08/12/2023 10:10 ? * [place] QUINN, Eliezer: PERFORM Event Display: Admission Note Authored Date: Patient: ??DIMPLE SIDDIQUI ? Age:??53 Years?Sex:??Female?:??1970?? Chief Complaint/Reason for Consultation see TUNG 1 Sheet History of Present Illness 53-year-old lady with PMH of insulin-dependent T2DM; multiple LE amputations in the past; polysubstance abuse (former smoker quit 2 months ago; former IV drug user, quit 2 years ago following suicideattempt); CVA following overdose; presented to the ED with right foot infection.?? She has been ignoring wounds on her right leg for the past few weeks, it is worsened, now painful, tender, spreadingup to posterior aspect of leg associated with significant purulence; also complained of fevers and chills, because of worsening of pain, malaise, she came to the ED. ?? On initial exam she was noted to have left foot with L1-2 amputation, well- healed; right foot with prior TMA; foul-smelling purulence from wound on the lateral aspect of the plantar foot, necrotic eschar overlying entire plantar foot, significant purulence and superficial skin necrosis spreading upthe lateral aspect of calf including posterior skin.? Patient??was found to be hypotensive and tachycardic, blood cultures were collected, patient received vancomycin and Zosyn for sepsis; patient also found to be in DKA, ?? Vascular surgery was consulted, patient underwent right guillotine BKA.?? Preop and postop.?? Diagnosis RLE gangrene 2/2 diabetic foot estimated blood loss 200 cc. Patient is in PACU, when I pick the patient, patient was hypotensive; and patient was on phenylephrine; talked with vascular surgery team regarding patient being transferred to SICU, they mentioned that patient should be get off of pressors with IV fluids; giving NS 1 L bolus, starting insulin dripand glucose monitoring as per DKA protocol; stat labs sent; starting patient on vancomycin and Zosyn, no weight in charts, asking RN to weigh the patient. ?? Vitals: Tmax 99.4, HR 70s-110s, RR 14-17, BP initially 110s-140s/70s; postop 80s/40s; saturating 99% on 3 L O2 NC. ?? Preop labs: -pH 7.4, pCO2 32.4 -WBC 19.3, repeat 16 -Hemoglobin 9.2, repeat 7.3, normal platelet. -Sodium 125, potassium 4.4, bicarb 19, anion gap 13 (previously bicarb 20, anion gap 18) blood sugar 300s, beta hydroxybutyrate 3.41 -Initial creatinine 1.1, repeat 0.9 -ALP 198; LFTs unremarkable -Lactate 2.7 -CK 40, high sensitive drops initially 29, trended down to 25. -Viral panel negative for COVID, RSV, influenza. ?? --Preop right foot x-ray: S/p transmetatarsal amputation, diffuse but inhomogeneous osteopenia without specific radiologic evidence of osteomyelitis; dorsal soft tissue swelling; no evidence of soft tissue gas or foreign body. --Preop tibia/fibula x-ray right: Tract of lucency in the anterior amputated foot extending from the skin surface to underlying bone, likely area of soft tissue injury, interspersed cortical irregularities and areas of lucency throughout tarsal bones, concerning for osteomyelitis.?? Soft tissue irre gularities along anterior and plantar aspect of foot, concerning for diffuse soft tissue injury, infection; irregular lucency along lateral aspect of lower extremity suggestive of soft tissue injury,edema throughout leg and foot. --Gap CXR showed groundglass opacification throughout right mid/lower lung region with sharp demarcation from normal well aerated upper lung, may represent atelectasis with partial collapse of right hand or middle lobe.?? Elevation of left hemidiaphragm with obscuring of right by few lobular regions of air under left diaphragm, likely represent with large bowel at splenic flexure, hiatal hernia could also be considered. ?? Preop meds: -Patient received 2.5 L NS bolus Postop meds: -Patient receiving 1 L LR bolus, 1 L NS bolus; NaCl started at 150 cc/h, insulin drip started, patient was on phenylephrine drip??for few hours; transition to Levophed. -Meds??ordered by anesthesia: IV fentanyl for pain control, IV Haldol for nausea and vomiting;??reportedly patient received block, not in pain currently. ?? On my evaluation,??patient??was very somnolent, just opening eyes??to verbal stimuli,??no history could be obtained. ??Unclear why patient takes Eliquis.?? Could not confirm any home medications,??reconciled medications based on??refill history. ?? Patient accepted to SICU/MICU Review of Systems -Could not be obtained Objective Vital Signs?? Temperature: 97.8 DegF (08/12/23 22:00:00) Temperature Route: Temporal (08/12/23 22:00:00) Pulse Rate:??102 bpm??High (08/12/23 16:53:00) Heart Rate Monitored: 70 bpm (08/12/23 22:00:00) Respiratory Rate: 18 br/min (08/12/23 22:00:00) Systolic Blood Pressure: 110 mm Hg (08/12/23 22:00:00) Diastolic Blood Pressure: 57 mm Hg (08/12/23 22:00:00) Blood pressure sites: Arm, left (08/12/23 20:00:00) Mean Arterial Pressure: 84 mm Hg (08/12/23 16:53:00) Pulse Pressure: 53 mm Hg (08/12/23 22:00:00) Oxygen Saturation: 99 % (08/12/23 22:00:00) Liters per Minute: 3 L/min (08/12/23 22:00:00) Mode of Delivery (Oxygen): Nasal cannula (08/12/23 22:00:00) Early Warning Score:??11??Critical (08/12/23 17:03:11) ? Physical Exam General: Somnolent??but arousable to verbal command, does not??seem to be??in acute distress. HEENT: NC/AT, PERRLA, no pallor, no icterus, moist mucous membranes. Neck: Supple, no JVD Respiratory: Diminished breath sounds at bilateral bases. ??No wheezes, rhonchi or crackles appreciated. CVS: Regular rhythm. ??Normal S1-S2 heard. ??No murmurs appreciated. Abdomen: Soft, nondistended, nontender, Normoactive bowel sounds. Neurological: Moving all 4 limbs freely.?? Extremities: B/L pedal pulses palpable.?? R BKA now, dressing in place. Left foot with L1-2 amputation, well-healed,??leg showed chronic??skin changes,??erythema/warmth??concerning for??cellulitis. Assessment/Plan Diagnoses BERNABE (acute kidney injury) ??(N17.9) Atelectasis ??(J98.11) Cellulitis of leg ??(L03.119) Diabetic neuropathy ??(E11.40) Encephalopathy ??(G93.40) Gangrene ??(I96) High anion gap metabolic acidosis ??(E87.29) Lactic acidosis ??(E87.20) 1. ??S/P BKA (below knee amputation) unilateral ??(Z89.519) 2. ??Diabetic foot infection ??(E11.628) 3. ??History of intravenous drug abuse ??(F19.11) 4. ??History of smoking ??(Z87.891) 5. ??History of opioid abuse ??(F11.11) 6. ??HTN (hypertension) ??(I10) 7. ??Sepsis ??(A41.9) 8. ??Septic shock ??(R65.21) 9. ??DKA (diabetic ketoacidosis) ??(E11.10) 10. ??Anemia ??(D64.9) ?? Assessment:??53-year-old lady with PMH of insulin-dependent T2DM; multiple LE amputations in the past; polysubstance abuse (former smoker quit 2 months ago; former IV drug user, quit 2 years ago following suicide attempt); CVA following overdose; presented; presented with??right??diabetic foot, gangrene, DKA;??s/p right BKA,??currently in septic shock??requiring pressor support; being admitted under??[facility] service. ?? Sepsis (A41.9):??- Septic shock (R65.21):??-??Likely in setting of infection;??patient had??200 cc??blood loss;??s/p??more than 3 L??IV fluids;??currently requiring??pressor support??to MAP??more than 65 PLAN: -Currently patient in PACU, continue to monitor,??giving??2 L crystalloids??bolus,??and will keep patient on??NS at 150 cc/h; currently patient requiring??pressor support, on??phenylephrine -If patient is not off of pressors??in next few hours,??patient would be transferred to SICU service,?? With vascular surgery team ?? DKA (diabetic ketoacidosis) (E11.10):??-??Initially??patient presented with??hypoglycemia,??was found to have??ketoacidosis;??patient was taken for??surgery; postop,??patient started on insulin drip,??start??labs ordered, -Continue insulin drip, IV fluids -Monitor BMP??every 4 hourly -Management as per DKA protocol ?? Cellulitis of leg (L03.119):??-??Left leg concerning for cellulitis; continue antibiotics. ?? High anion gap metabolic acidosis (E87.29):??- Lactic acidosis (E87.20):??-??Likely in setting of DKA,??shock;??continue IV fluid resuscitation, continue to trend lactate until normalized ?? Anemia (D64.9):??-??Acute on chronic anemia; hemoglobin dropped to 7.2; receiving 1 unit blood. ?? Diabetic R foot infection (E11.628):??- RLE Gangrene (I96):??- S/P BKA (below knee amputation) unilateral (Z89.519):??-??Patient presented with??right foot infection,??s/p??BKA on 08/12/2023 evening??by vascular surgery;??reportedly patient will require??revisional surgery. -Blood cultures were sent??from ED,??follow -Continue vancomycin and Zosyn ?? BERNABE (acute kidney injury) (N17.9):??-??Likely prerenal in setting of??renal hypoperfusion;??resolving, presented with creatinine 1.1,??repeat 0.9 -Continue IV fluids, continue to maintain MAP more than 65 ?? Atelectasis (J98.11):??-IC q2hrly;??repeat CXR postop Encephalopathy (G93.40):??-??Likely postanesthesia; currently GCS 9-10 ?? HTN (hypertension) (I10):??-??Hold home lisinopril ?? Diabetic neuropathy (E11.40):??-??On gabapentin and duloxetine ?? History of smoking (Z87.891):??- History of intravenous drug abuse (F19.11):??- History of opioid abuse (F11.11):??-former smoker quit 2 months ago; former IV drug user, quit 2 years ago following suicide attempt ?? VTE Prophylaxis:??-SQH ?VTE Prophylaxis Assessment:??VTE Prophylaxis Ordered ?? Code Status:??-Full Code ?Order Code Status:??Code Status Ordered ?? Please note: Unclear why patient takes Eliquis, when patient more awake, please inquire.?? And alsoconfirm home medications. ?? Date of Service: 08/12/2023 I spent a total of 82 minutes, including both [id number] and jmf-dgln-fn-face time on the date ofthe encounter, addressing the above diagnoses. Activities performed in this time include chart review, obtaining/reviewing history, performing a medically necessary evaluation, CODE STATUS ??discussion, documentation, charting and counseling, documentation, charting and counseling. ?? Please note: This note has been prepared using voice recognition software ([employer]). As a result errors may occur. When identified these research assistant member errors have been corrected. While every attempt is made to correct errors during dictation, errors may still exist; for any clarifications, pleasereach out to me on Tigerconnent or pager. Histories Allergies Allergies ?(Active and Proposed Allergies Only) predniSONE? (Severity: Unknown severity, Onset: Unknown) ? Past Medical History/Problem List Active Problems??(5) History of intravenous drug abuse History of opioid abuse History of smoking HTN (hypertension) S/P BKA (below knee amputation) unilateral ? Past Surgical History No surgery history documented. ? Social History No social history documented. ? Family History No family history recorded. ? Medications Home Medications apixaban (Eliquis 5 mg oral tablet)?1?tab(s)?5?Milligram?By Mouth?2 times a day Atorvastatin (atorvastatin 80 mg oral tablet)?1?tab(s)?80?Milligram?By Mouth?Daily at bedtime Duloxetine (duloxetine 30 mg oral enteric coated capsule)?1?capsule?30?Milligram?By Mouth?Daily empagliflozin (Jardiance 25 mg oral tablet)?1?tab(s)?25?Milligram?By Mouth?Daily in AM Insulin Glargine (Lantus Solostar Pen 100 units/mL subcutaneous solution)?35?unit(s)?Subcutaneous Injection?2 times a day before breakfast and dinne Lisinopril (lisinopril 5 mg oral tablet)?5?Milligram?1?tablet?By Mouth?Daily Metformin (metFORMIN 500 mg oral tablet)?1?tab(s)?500?Milligram?By Mouth?2 times a day Miscellaneous Rx (FREESTYLE LITE BLOOD GLUCOSE STRIPS)?USE TO TEST BLOOD SUGAR EVERY 8 HOURS Miscellaneous Rx (FREESTYLE LANCETS 100)?USE ONE EACH BY OTHER ROUTE THREE TIMES DAILY ? Results Recent Labs BLOOD BANK Blood Type O Positive ()?? 08/12/2023 10:19 Antibody Screen Negative ()?? 08/12/2023 10:19 RBC Unit ID [id number] ()?? 08/12/2023 10:19 RBC Available IS ()?? 08/12/2023 10:19 ?? BLOOD COUNT & DIFF WBC 16.0 k/mm3 (High)?? 08/12/2023 19:46 RBC 2.74 m/mm3 (Low)?? 08/12/2023 19:46 Hgb 7.3 Gm/dL (Low)?? 08/12/2023 19:46 Hct 23.2 % (Low)?? 08/12/2023 19:46 MCV 84.7 femtoliters ()?? 08/12/2023 19:46 MCH 26.6 pg (Low)?? 08/12/2023 19:46 MCHC 31.5 g/dL (Low)?? 08/12/2023 19:46 Platelet Count 391 k/mm3 ()?? 08/12/2023 19:46 RDW-SD 49.1 femtoliters (High)?? 08/12/2023 19:46 MPV 9.9 femtoliters ()?? 08/12/2023 19:46 Nucleated RBC (Automated) 0.0 #/100 WBC'S ()?? 08/12/2023 19:46 Abs. NRBC 0.0 k/mm3 ()?? 08/12/2023 19:46 Abs. Neut 13.9 k/mm3 (High)?? 08/12/2023 19:46 Abs. Lymph 0.9 k/mm3 ()?? 08/12/2023 19:46 Abs. Brantley 1.0 k/mm3 (High)?? 08/12/2023 19:46 Abs. Eo 0.0 k/mm3 ()?? 08/12/2023 19:46 Abs. Baso 0.1 k/mm3 ()?? 08/12/2023 19:46 Neut % 86.9 % (High)?? 08/12/2023 19:46 Lymph % 5.4 % (Low)?? 08/12/2023 19:46 Brantley % 6.4 % ()?? 08/12/2023 19:46 Eos % 0.1 % ()?? 08/12/2023 19:46 Baso % 0.3 % ()?? 08/12/2023 19:46 Hemoglobin (POC) POC Cartridge 11.2 Gm/dL (Low)?? 08/12/2023 10:21 Hematocrit (POC) POC Cartridge 33 % (Low)?? 08/12/2023 10:21 Imm Gran 0.9 % ()?? 08/12/2023 19:46 Abs. Imm Gran 0.2 k/mm3 ()?? 08/12/2023 19:46 ?? BLOOD GAS pH Venous (POC) POC Cartridge 7.40 ()?? 08/12/2023 10:21 pCO2 Venous (POC) POC Cartridge 32.4 mm Hg (Low)?? 08/12/2023 10:21 pO2 Venous (POC) POC Cartridge 15 mm Hg (Low)?? 08/12/2023 10:21 Est Bicarbonate (POC) POC Cartridge 20.2 mmol/L (Low)?? 08/12/2023 10:21 % O2 Sat Venous (POC) POC Cartridge 20 ()?? 08/12/2023 10:21 Base Excess (POC) POC Cartridge NEGATIVE 5 ()?? 08/12/2023 10:21 Specimen Type - Blood Gas VENOUS ()?? 08/12/2023 10:21 pH, Venous 7.35 ()?? 08/12/2023 10:28 ?? CARDIAC CK, Total 33 units/L ()?? 08/12/2023 19:46 High Sensitivity Troponin (HSTnT) 25 ng/L (High)?? 08/12/2023 13:15 ?? CHEM GENERAL Sodium 127 mmol/L (Low)?? 08/12/2023 19:46 Potassium 4.8 mmol/L ()?? 08/12/2023 19:46 Chloride 94 mmol/L (Low)?? 08/12/2023 19:46 Bicarbonate Level 22 mmol/L ()?? 08/12/2023 19:46 Anion Gap 11 ()?? 08/12/2023 19:46 Sodium (POC) POC Cartridge 121 mmol/L (Low)?? 08/12/2023 10:21 Potassium (POC) POC Cartridge 4.8 mmol/L ()?? 08/12/2023 10:21 Glucose Level 332 mg/dL (High)?? 08/12/2023 19:46 Glucose (POC) POC Cartridge 422 (High)?? 08/12/2023 10:21 Glucose, POC 380 mg/dL (High)?? 08/12/2023 16:15 Beta Hydroxybutyrate 3.41 mmol/L (High)?? 08/12/2023 10:28 BUN 25 mg/dL (High)?? 08/12/2023 19:46 Creatinine-Blood 0.9 mg/dL ()?? 08/12/2023 19:46 Estimated GFR Creatinine 76 ML/MIN/1.73 M2 ()?? 08/12/2023 19:46 Osmolality 290 mOs/kg ()?? 08/12/2023 10:28 Calcium 7.5 mg/dL (Low)?? 08/12/2023 19:46 Ionized Calcium (POC) POC Cartridge 1.13 mmol/L ()?? 08/12/2023 10:21 Phosphorus 4.5 mg/dL ()?? 08/12/2023 19:46 Magnesium 1.7 mg/dL ()?? 08/12/2023 19:46 Protein, Total 6.3 Gm/dL ()?? 08/12/2023 19:46 Albumin 1.8 Gm/dL (Low)?? 08/12/2023 19:46 AG Ratio 0.4 ()?? 08/12/2023 10:28 Alkaline Phosphatase 157 units/L (High)?? 08/12/2023 19:46 AST (SGOT) 29 units/L ()?? 08/12/2023 19:46 ALT (SGPT) 15 units/L ()?? 08/12/2023 19:46 Bilirubin, Total 0.3 mg/dL ()?? 08/12/2023 19:46 Bilirubin, Direct 0.2 mg/dL ()?? 08/12/2023 19:46 Bilirubin, Indirect 0.1 mg/dL ()?? 08/12/2023 19:46 Lactate 2.7 mmol/L (High)?? 08/12/2023 13:15 ?? HEME OTHER Hold Lavender Top SPECIMEN DISCARDED AFTER 24 HOURS. ()?? 08/12/2023 13:15 Hold Blue Top SPECIMEN DISCARDED AFTER 4 HOURS. ()?? 08/12/2023 13:15 ?? MISC. CHEMISTRY Hold Gel Top SPECIMEN DISCARDED AFTER 1 WEEK ()?? 08/12/2023 13:15 ?? VIROLOGY Influenza A PCR NEGATIVE ()?? 08/12/2023 10:10 Influenza B PCR NEGATIVE ()?? 08/12/2023 10:10 RSV PCR NEGATIVE ()?? 08/12/2023 10:10 COVID-19 PCR Specimen Source NASAL ()?? 08/12/2023 10:10 COVID-19 PCR Result NEGATIVE ()?? 08/12/2023 10:10 ? Microbiology ?? COVID-19, RSV, and Flu A/B, Rapid PCR?? Completed?? Source: Nasal Body Site: Nose Collected Dt/Tm: 08/12/2023 10:20 Last Updated Dt/Tm: 08/12/2023 12:33 ? EKG study * Event Display: EKG Authored Date: * Event Display: EKG Authored Date: * Event Display: ECG 12-Lead Authored Date: Please click on pdf link to open report * Event Display: ECG 12-Lead Authored Date: Ventricular Rate: 90 BPM Atrial Rate: 90 BPM P-R Interval: 128 ms QRS Duration: 84 ms Q-T Interval: 366 ms QTC Calculation(Bazett): 447 ms P [place]: 55 degrees R [place]: -11 degrees T [place]: 76 degrees Normal sinus rhythm Low voltage QRS Poor R wave progression Abnormal ECG When compared with ECG of 18-AUG-2023 07:52, No significant change was found Confirmed by RENA FERNANDES MD ([id number]) on 08/24/2023 9:27:26 AM [place]: RENA FERNANDES MD * Event Display: ECG 12-Lead Authored Date: Please click on pdf link to open report * Event Display: ECG 12-Lead Authored Date: [id number] Ventricular Rate: 80 BPM Atrial Rate: 80 BPM P-R Interval: 132 ms QRS Duration: 84 ms Q-T Interval: 372 ms QTC Calculation(Bazett): 429 ms P [place]: 62 degrees R [place]: -13 degrees T [place]: 56 degrees Normal sinus rhythm Low voltage QRS Possible Lateral infarct , age undetermined Abnormal ECG When compared with ECG of 15-AUG-2023 10:36, No significant change was found Confirmed by NEVIN CALDERON MD ([id number]) on 08/19/2023 1:27:52 PM [place]: NEVIN CALDERON MD * Event Display: ECG 12-Lead Authored Date: [id number] Please click on pdf link to open report * Event Display: ECG 12-Lead Authored Date: [id number] Ventricular Rate: 94 BPM Atrial Rate: 94 BPM P-R Interval: 204 ms QRS Duration: 94 ms Q-T Interval: 348 ms QTC Calculation(Bazett): 435 ms R [place]: -8 degrees T [place]: 100 degrees Normal sinus rhythm Nonspecific ST and T wave abnormality Abnormal ECG Confirmed by CHYNA CALVIN ([id number]) on 08/16/2023 8:35:20 AM [place]: CHYNA CALVIN * Event Display: EKG Authored Date: [id number] Heart * Event Display: Echocardiogram - Complete Authored Date: [id number] Transthoracic Echocardiography Report (TTE) Patient [facility]ographics [facility] Date of Study 08/15/2023 [facility] Gender Female Facility Race Ethnicity Date of 1970 Height: 66 inches Age 53 year(s) Weight: 180.75 pounds Accession Number [id number] BSA: 1.92 m2 Room Number [id number] BMI: 29.17 kg/m2 Referring Physician Rick Kruse MD Interpreting Jose De Jesus Albert MD Physician [employer] Galindo Turner Indications Endocarditis. Clinical History Hypertension. Diabetes Mellitus. Study Data Type of Study TTE procedure:Echo Complete-Doppler, Colorflow, M-Mode. Study Date08/15/2023 Start Time: 02:15 PM Study Location: [facility] [place] Adult Echo Study Status: Bedside Patient Status: Routine Technical Quality: Technically difficult due to body habitus. Blood Pressure:132/65 mmHg EKG: Within normal limits HR: 92 bpm 2D Measurements LV Diastolic Dimension: 3.9 cm LV Systolic Dimension: 2.7 cm LV Septum Diastolic: 1.3 cm LV PW Diastolic: 1.3 cm AO Root Dimension: 3.6 cm LA Dimension: 4 cm LA ESV (BP):57.1 ml LVOT Stroke Volume: 66.11 ml LA ESV Index: 30 ml/m2 Stroke Volume Index34.43 ml/m2 LVOT: 2.2 cm Cardiac Index:3.17 l/min/m2 Ascending Aorta:3.3 cm Doppler Measurements AV Peak Velocity: 145 cm/s MV Peak E-Wave: 90 cm/s AV Peak Gradient: 8.41 mmHg MV Peak A-Wave: 87.8 cm/s AV Mean Gradient: 4 mmHg MV E/A Ratio: 1.03 AV VTI:26.1 cm MV P1/2t: 83 msec LVOT Peak Velocity: 102 cm/s LVOT VTI17.4 cm MV Deceleration Time: 284 msec AV Area (Continuity):2.53 cm2 MV Area (PHT): 2.65 cm2 TR Velocity:221 cm/s TR Gradient:19.54 mmHg E' Septal Velocity: 8.27 cm/s E' Lateral Velocity: 11.5 cm/s E/Med E':10.00505 E/Lat E':7.155806 Cardiac Anatomy Left Ventricle/Interventricular Septum The left ventricular size is normal. The left ventricular wall thickness is mildly increased. The LV systolic function is normal . The left ventricular ejection fraction is 55-60 %. Cannot assess regional wall motion abnormalities. Left Atrium/Interatrial Septum The left atrium is normal in size. Aortic Valve The aortic valve leaflet opening is normal . There is no aortic stenosis. There is no significant aortic regurgitation. Mitral Valve The mitral valve is grossly normal. There is trace mitral regurgitation. Aorta The aortic root is normal in size. Right Ventricle The right ventricular size and function appears grossly normal. Right Atrium The right atrium is normal in size. Pulmonic Valve The pulmonic valve velocity is normal. Tricuspid Valve There is trace tricuspid valve regurgitation. Pumonary Artery An accurate pulmonary artery pressure could not be obtained. Venous Structures The inferior vena cava is poorly visualized. Pericardium/Extracardiac There is no significant pericardial effusion. Summary The left ventricular size is normal. The left ventricular wall thickness is mildly increased. The LV systolic function is normal . The left ventricular ejection fraction is 55-60 %. Cannot assess regional wall motion abnormalities. The right ventricular size and function appears grossly normal. Recommendation Consider transesophageal echocardiography (if clinically indicated). Comparison No prior study available for comparison. Signature * Event Display: Echocardiogram - Complete Authored Date: Cardiology * Event Display: Cardiac Rhythm Strips Authored Date: * Event Display: Cardiac Rhythm Strips Authored Date: * Event Display: Cardiac Rhythm Strips Authored Date: Laboratory * Event Display: Blood Glucose Record Authored Date: Hospital Progress note * Lisseth Mchugh RN: PERFORM, SIGN, VERIFY Event Display: Progress Note Hospital Authored Date: Patient: DIMPLE SIDDIQUI Age: 53 years Sex: Female : 1970 Associated Diagnoses: None Author: Lisseth Mchugh RN Findings Problem Related to Alteration in Comfort : Alteration in Comfort/new 08/24/2023 18:00 EST Alteration in Comfort Related to Injury Goals & Outcomes: Comfort Pt will state importance of adhering to pain strategy regime Interventions Implemented: Comfort Assess pain using appropriate pain scale/tools BH Goals/Interventions, Comfort Yes Comfort, Problem Start 08/24/2023 18:18 Reviewed plan with, Comfort Patient Patient Progression, Comfort Pt progressing according to plan Comfort, Problem Ongoing Yes . Narrative/Incidental The client is alert and oriented x4, on bedrest s/p revision to right bka, c/o pain and prn given with good effect, BM 08/24, right arm midline flushing well with brisk blood return, medically clearedfor d/c to rehab, ambulance to transport, hand off given to emt's with discharge rreport. . . Discharge Information Case Management Discharge Plan : Case Management Discharge Plan Data 08/24/2023 15:06 EST Discharge Level of Care at Discharge care home facility Discharge Nursing Homes/Rehab Facilities [facility] Discharge Transportation Arranged [facility] [address] [facility] [id number] [phone] Mode of Transportation Arranged Ambulance Name of Agency #1 [facility] Agency [employer] #1 Intake Service Categories #1 Physical Therapy, Group Home Service Comments #1 You are being discharged today to [facility]. Name of Person Notified of Transfer Discharge plan and IMM delivered to patient bedside. * Dayo Jeronimo MD: PERFORM, MODIFY, SIGN, VERIFY Event Display: Progress Note Hospital Authored Date: [id number] Patient: DIMPLE SIDDIQUI Age: 53 years Sex: Female : 1970 Associated Diagnoses: None Author: Dayo Jeronimo MD 08/24/2023 To Whom It May Concern: Dimple Siddiqui was a patient at [facility] from 08/12/23 to 08/23/23. During this time she was receiving methadone with a last dose of 135mg on the morning of 08/24/23. She has also been receiving oxycodone for acute pain under the direction of the acute pain service. kind regards, Dayo Jeronimo MD * Dayo Jeronimo MD: PERFORM, SIGN, VERIFY Event Display: Progress Note Hospital Authored Date: [id number] Patient: DIMPLE SIDDIQUI Age: 53 years Sex: Female : 1970 Associated Diagnoses: None Author: Dayo Jeronimo MD 08/24/2023 To Whom It May Concern: While at [facility] Dimple received methadone on these dates with the documented dosin08/15/23 70mg 08/16/23 135mg 08/17/23 135mg 08/18/23 135mg 08/19/23 135mg 08/20/23 135mg 08/21/23 135mg 08/22/23 135mg 08/23/23 135mg 08/24/23 135mg Kind regards, Dayo Jeronimo MD Consult note * Michele QUINN, Joel A: SIGN, MODIFY Layo Palomares MD: PERFORM, SIGN Layo Palomares MD: SIGN, VERIFY Layo Palomares MD: VERIFY Event Display: Consultation Note Authored Date: [id number] Patient: DIMPLE MENDENHALL Age: 53 years Sex: Female : 1970 Associated Diagnoses: None Author: Layo Palomares MD Visit Information 53F s/p right BKA (08/12/23), POD5. History of Present Illness Patient is a 53 yo female with medical history of iDDM II, h/o IVDU/ polysubstance abuse on home methadone 135mg qDaily. Patient presented 08/12 found to have right diabetic foot wound/ gangrene now s/p right BKA (08/12/23), POD5. Patient reports constant 10/10 right surgical site pain, described as waxing and waning ache. She denies any radiation, loss of bowel or bladder control and saddle anesthesia. Pain worsens with movement, and is intermittently better (to 8/10) with pain medication. -Out pt pain medications: Gabapentin Duloxetine Methadone 135mg PO qDaily -In pt pain regimen: Tylenol 975mg TID Gabapentin 300mg QID Methadone 135mg qDaily Oxycodone 5mg q4 hrs Pt reports minimal relief of pain w/ current pain medication regimen APS consulted for pain management. Past Medical History Procedure/Surgical Profile No active procedure history items have been selected or recorded. Problem list All Problems S/P BKA (below knee amputation) unilateral / SNOMED CT 4331498555 / Confirmed History of intravenous drug abuse / SNOMED CT 1601384305 / Confirmed History of smoking / SNOMED CT 9123439870 / Confirmed History of opioid abuse / SNOMED CT [id number] / Confirmed HTN (hypertension) / SNOMED CT 2155955439 / Confirmed Allergies Allergic Reactions (Selected) Severity Not Documented PredniSONE- No reactions were documented. MEDICATION LIST (Selected) Inpatient Medications Ordered ALPRAZolam 0.5 mg oral tablet: 0.5 mg, Tablet, By Mouth, Daily, PRN for Anxiety, Routine, 08/13/23 17:16:00 EST Acetaminophen Tablet: 975 mg, Tablet, By Mouth, 3 times a day, Routine, 08/12/23 14:46:00 EST Ampicillin-Sulbactam: 3 Gm, IVPB, Injection, Every 6 hours, Indicated for: Bacteremia, Routine, 08/15/23 14:00:00 EST Dextrose 50% Inj Syringe (25Gm): 12.5 Gm, Injection, IV Push Slowly, Every 20 minutes, PRN for Blood Glucose, 50 to 70 and patient is NOT AWAKE or NPO; Repeat Glucose POC in 20 minutes, Routine, 08/13/23 12:13:00 EST Dextrose 50% Inj Syringe (25Gm): 25 Gm, Injection, IV Push Slowly, Every 15 minutes, PRN for Blood Glucose, LESS than 50 and patient is NOT AWAKE or NPO - call MD if episode NOT resolved within 20 minutes, Routine, 08/13/23 12:13:00 EST Dilaudid Inj: 2 mg, Injection, IV Push Slowly, Every 3 hours, Hold for: RR<12, difficulty arousing from sleep, PRN for Pain , Severe, Only if Tylenol and Oxycodone do not help, Routine, 08/13/23 5:29:00 EST Docusate Sodium Capsule: 100 mg, Capsule, By Mouth, 2 times a day, PRN for Constipation, Routine, 08/12/23 14:46:00 EST Glucagon Inj: 1 mg, Injection, Intramuscular, Once, For severe hypoglycemic event and patient is too altered to take glucose by mouth and does not have IV access., PRN for Other, Routine, 08/13/23 12:13:00 EST Glucose Gel: 15 Gm, Gel, By Mouth, Every 20 minutes, PRN for Blood Glucose, 50 to 70 and patient ALERT, Routine, 08/13/23 12:13:00 EST Glucose Gel: 30 Gm, Gel, By Mouth, Every 20 minutes, PRN for Blood Glucose, LESS THAN 50 and patient ALERT, Routine, 08/13/23 12:13:00 EST Heparin Inj: 5,000 units, Injection, Subcutaneous Injection, 3 times a day, (DVT Prophylaxis), Routine, 08/12/23 22:00:00 EST Insulin LISPRO Sliding Scale: 2-10 units, Injection, Subcutaneous Injection, 3 times a day before meals, Routine, 08/13/23 16:00:00 EST Lantus Inj: 35 units, Injection, Subcutaneous Injection, Daily, STAT, 08/13/23 11:38:00 EST Melatonin Tablet: 3 mg, Tablet, By Mouth, Daily at bedtime, PRN for Insomnia, Routine, 08/12/23 14:46:00 EST Methadone Tablet: 135 mg, Tablet, By Mouth, Daily, Routine, 08/17/23 9:00:00 EST MiraLax Powder: 17 Gm, Powder, By Mouth, Daily for 14 days, Dissolve in 8 ounces of water., PRN forConstipation, Routine, 08/12/23 14:46:00 EST, Stop date 08/26/23 14:45:00 EST NaCL 0.9% Flush: 3 mL, Injection, IV Push, Every 8 hours, PRN for Line/Tube Patency, Routine, 08/12/23 14:46:00 EST NaCL 0.9% Flush: 3 mL, Injection, IV Push, Every 8 hours, PRN for Other, For Maintaining IV Patencyand/or Flush between IV medications, Routine, 08/13/23 2:04:00 EST NaCL 0.9% Flush: 3 mL, Injection, IV Push, Every 8 hours, Routine, 08/12/23 15:00:00 EST NaCL 0.9% Flush: 3 mL, Injection, IV Push, Every 8 hours, Routine, 08/12/23 21:00:00 EST Robitussin DM Liquid: 10 mL, Syrup, By Mouth, Every 4 hours, PRN for Cough, Routine, 08/12/23 14:46:00 EST Senna Tablet: 1 tablet, Tablet, By Mouth, 2 times a day, PRN for Constipation, Routine, 08/12/23 14:46:00 EST SilvaSorb: 1 application, Gel, Topically, Every other day, Routine, 08/16/23 9:00:00 EST Simethicone Tablet: 80 mg, Chew Tablet, Chew, 3 times a day, PRN for Gas, Routine, 08/12/23 14:46:00 EST Vashe Topical Solution: 475 mL, Solution, Topically, Apply to Other, Every other day, Routine, 08/16/23 9:00:00 EST gabapentin 300 mg oral capsule: 300 mg, Capsule, By Mouth, 4 times a day, Routine, 08/13/23 15:00:00 EST nalOXONE Inj: 0.2 mg, Injection, IV Push, Every 5 minutes, PRN for Other, Respiratory Rate less than 8 or for somnolence/excessive sedation. Repeat until Respiratory Rate is greater than 15 and patient is more alert., Routine, 08/15/23 13:03:00 EST oxyCODONE 5 mg oral tablet: 5 mg, Tablet, By Mouth, Every 4 hours, Hold for: oversedation, RR <12, PRN for Pain , Moderate, Routine, 08/13/23 2:27:00 EST Documented Medications Documented Eliquis 5 mg oral tablet: 1 tablet = 5 mg, By Mouth, 2 times a day, # 60 tablet, 5 Refills, Maintenance, 08/12/23 20:31:00 EST, Tablet, Partial fill upon patient request if the prescription is for a schedule II opioid drug. FREESTYLE LANCETS 100: FREESTYLE LANCETS 100, USE ONE EACH BY OTHER ROUTE THREE TIMES DAILY FREESTYLE LITE BLOOD GLUCOSE STRIPS: FREESTYLE LITE BLOOD GLUCOSE STRIPS, USE TO TEST BLOOD SUGAR EVERY 8 HOURS Insulin Aspart FlexPen 100 units/mL injectable solution: 0 Refills, Maintenance, 08/12/23 20:29:00 EST, Partial fill upon patient request if the prescription is for a schedule II opioid drug. Jardiance 25 mg oral tablet: 1 tablet = 25 mg, By Mouth, Daily in AM, # 30 tablet, 0 Refills, Maintenance, 08/12/23 20:29:00 EST, Tablet, Partial fill upon patient request if the prescription is for a schedule II opioid drug. Lantus Solostar Pen 100 units/mL subcutaneous solution: = 35 units, Subcutaneous Injection, 2 timesa day before breakfast and dinne, # 10 mL, 0 Refills, Maintenance, 08/12/23 20:28:00 EST, Solution,Partial fill upon patient request if the prescription is for a schedule II opioid drug. atorvastatin 80 mg oral tablet: 1 tablet = 80 mg, By Mouth, Daily at bedtime, # 90 tablet, 0 Refills, Maintenance, 08/12/23 20:29:00 EST, Tablet, Partial fill upon patient request if the prescriptionis for a schedule II opioid drug. duloxetine 30 mg oral enteric coated capsule: 1 capsule = 30 mg, By Mouth, Daily, # 30 capsule, 0 Refills, Maintenance, 08/12/23 20:30:00 EST, Partial fill upon patient request if the prescription isfor a schedule II opioid drug. gabapentin 600 mg oral tablet: 0 Refills, Maintenance, 08/12/23 20:30:00 EST, Partial fill upon patient request if the prescription is for a schedule II opioid drug. lisinopril 5 mg oral tablet: 5 mg, 1, tablet, By Mouth, Daily, # 30 tablet, Refills 0, Maintenance,08/12/23 20:29:00 EST, Partial fill upon patient request if the prescription is for a schedule II opioid drug. metFORMIN 500 mg oral tablet: 1 tablet = 500 mg, By Mouth, 2 times a day, # 180 tablet, 0 Refills, Maintenance, 08/12/23 20:27:00 EST, Tablet, Partial fill upon patient request if the prescription isfor a schedule II opioid drug. Family History Alcohol use Drinks rarely. Tobacco exposure Drug Use Type. Family/Social Marital status. Social support system. Review of Systems Constitutional: No fever, chills, fatigue, night sweats, or change in appetite. HEENT: No headache, vision or hearing changes, eye pain, earache, rhinorrhea, sore throat, or neck pain. Respiratory: No cough, shortness of breath, or wheezing. Cardiovascular: No chest pain, palpitations, or dyspnea on exertion. Gastrointestinal: No abdominal pain, nausea, vomiting, diarrhea, constipation, or blood in stool. Genitourinary: No dysuria, frequency, urgency, or hematuria. Musculoskeletal: No arthralgias or myalgias. Skin: No rashes, itching, or changes in hair, skin, or nails. Neurological: No headache, dizziness, LOC, seizures, weakness, numbness, or paresthesias Psychological: No depression or anxiety. Physical Examination General: No acute distress. Head: Normocephalic. Atraumatic. Eyes: PERRL. EOMI. ENT: Moist mucous membranes. Oropharynx is clear, without posterior erythema. Respiratory: Lungs clear to auscultation bilaterally. No wheezes, rales, or rhonchi. Normal respiratory effort. Cardiovascular: Regular rate and rhythm. S1, S2 normal. No murmurs, rubs, or gallops. Peripheral pulses are 2+ bilaterally. Capillary refill is < 2 sec. Gastrointestinal: Soft. Non-distended. Normoactive bowel sounds. Non-tender. No rebound or guarding. Musculoskeletal: No clubbing, cyanosis. No edema. Skin: Warm, dry. No rashes. Neurological: Alert, awake, and oriented x 3 (person, place, time). Cranial nerves 2-12 grossly intact. Moves all extremities. Psychological: Normal mood. Normal affect. General Exam Respiratory RR even/ unlabored, Speaking freely during exam, No s/s or c/o SOB. . Abdominal Normal. Peripheral Pulse Psychiatric Normal. a.ox3 answers all questions appropriately + appropriate affect . Neurologic . Range of Motion Musculoskeletal Skin Sensory Motor Pain Assessment The Quality is aching, not cramping, not dull, not heavy/pressure and not spasmodic. The severity is severe and 10 / 10 on the severity scale. The onset was 5 days ago. The duration is 5 days. Time pattern: constant, not acute. Exacerbating factors: movement, palpation. Relieving factors: medication. Pain interventions: medication, repositioning. Results Review Results Today's Results : ALL RESULT SECTIONS 08/17/2023 1:19 EST WBC 9.1 k/mm3 RBC 2.76 m/mm3 L Hgb 7.1 Gm/dL L Hct 23.9 % L MCV 86.6 femtoliters MCH 25.7 pg L MCHC 29.7 g/dL L Platelet Count 464 k/mm3 H RDW-SD 53.7 femtoliters H MPV 9.3 femtoliters L Nucleated RBC (Automated) 0.0 #/100 WBC'S Abs. NRBC 0.0 k/mm3 Sodium 138 mmol/L Potassium 4.3 mmol/L Chloride 102 mmol/L Bicarbonate Level 27 mmol/L Anion Gap 9 Glucose Level 117 mg/dL H BUN 8 mg/dL Creatinine-Blood 0.6 mg/dL Estimated GFR Creatinine 106 ML/MIN/1.73 M2 Calcium 6.6 mg/dL L Phosphorus 2.4 mg/dL L Magnesium 1.4 mg/dL L Protein, Total 6.2 Gm/dL Albumin 2.1 Gm/dL L Alkaline Phosphatase 220 units/L H AST (SGOT) 19 units/L ALT (SGPT) 8 units/L Bilirubin, Total 0.2 mg/dL Bilirubin, Direct <0.2 mg/dL Bilirubin, Indirect Direct bilirubin is less than the measureable limit. Therefore, indirect mg/dL 08/17/2023 0:49 EST Temperature 97.8 DegF Temperature Route Oral Pulse Rate 80 bpm Respiratory Rate 18 br/min Systolic Blood Pressure 113 mm Hg Diastolic Blood Pressure 65 mm Hg Blood pressure sites Arm, left Mean Arterial Pressure 81 mm Hg Pulse Pressure 48 mm Hg Oxygen Saturation 97 % Vital SignsTemperature : Temperature 08/17/2023 5:07 EST Temperature 97.7 DegF 08/17/2023 0:49 EST Temperature 97.8 DegF 08/16/2023 16:00 EST Temperature 98 DegF 08/16/2023 12:00 EST Temperature 98.6 DegF 08/16/2023 9:00 EST Temperature 98.2 DegF 08/16/2023 6:31 EST Temperature 97.8 DegF 08/16/2023 0:39 EST Temperature 97.7 DegF Pulse Rate : Pulse Rate 08/17/2023 5:07 EST Pulse Rate 86 bpm 08/17/2023 0:49 EST Pulse Rate 80 bpm 08/16/2023 16:00 EST Pulse Rate 90 bpm 08/16/2023 12:00 EST Pulse Rate 98 bpm H 08/16/2023 9:00 EST Pulse Rate 91 bpm H 08/16/2023 6:31 EST Pulse Rate 87 bpm 08/16/2023 0:39 EST Pulse Rate 86 bpm Respiratory Rate : Respiratory Rate 08/17/2023 14:45 EST Respiratory Rate 16 br/min Respiratory Rate 16 br/min Respiratory Rate 16 br/min Respiratory Rate 16 br/min Respiratory Rate 16 br/min 08/17/2023 12:40 EST Respiratory Rate 16 br/min Respiratory Rate 16 br/min 08/17/2023 11:08 EST Respiratory Rate 17 br/min 08/17/2023 11:05 EST Respiratory Rate 17 br/min 08/17/2023 9:45 EST Respiratory Rate 17 br/min 08/17/2023 8:56 EST Respiratory Rate 17 br/min 08/17/2023 8:45 EST Respiratory Rate 17 br/min 08/17/2023 8:00 EST Respiratory Rate 17 br/min 08/17/2023 6:51 EST Respiratory Rate 18 br/min 08/17/2023 6:33 EST Respiratory Rate 18 br/min Respiratory Rate 18 br/min 08/17/2023 5:51 EST Respiratory Rate 18 br/min 08/17/2023 5:07 EST Respiratory Rate 18 br/min 08/17/2023 0:59 EST Respiratory Rate 18 br/min 08/17/2023 0:49 EST Respiratory Rate 18 br/min 08/17/2023 0:29 EST Respiratory Rate 18 br/min 08/16/2023 22:30 EST Respiratory Rate 18 br/min Respiratory Rate 18 br/min Respiratory Rate 18 br/min 08/16/2023 22:19 EST Respiratory Rate 18 br/min Respiratory Rate 18 br/min Respiratory Rate 18 br/min Respiratory Rate 18 br/min 08/16/2023 21:44 EST Respiratory Rate 18 br/min 08/16/2023 21:42 EST Respiratory Rate 18 br/min 08/16/2023 18:51 EST Respiratory Rate 18 br/min 08/16/2023 18:23 EST Respiratory Rate 18 br/min Respiratory Rate 18 br/min 08/16/2023 16:09 EST Respiratory Rate 18 br/min Respiratory Rate 18 br/min 08/16/2023 16:00 EST Respiratory Rate 16 br/min 08/16/2023 15:19 EST Respiratory Rate 18 br/min 08/16/2023 15:09 EST Respiratory Rate 18 br/min 08/16/2023 12:00 EST Respiratory Rate 18 br/min 08/16/2023 11:49 EST Respiratory Rate Not Done: Order Discontinued (Not Done) 08/16/2023 11:28 EST Respiratory Rate 18 br/min 08/16/2023 10:12 EST Respiratory Rate 18 br/min 08/16/2023 10:07 EST Respiratory Rate 18 br/min Respiratory Rate 18 br/min 08/16/2023 9:00 EST Respiratory Rate 20 br/min 08/16/2023 6:31 EST Respiratory Rate 20 br/min 08/16/2023 2:01 EST Respiratory Rate Not Done: Patient Sleeping (Not Done) 08/16/2023 0:39 EST Respiratory Rate 20 br/min 08/16/2023 0:04 EST Respiratory Rate 18 br/min 08/16/2023 0:03 EST Respiratory Rate 18 br/min SBP/DBP Cuff : SBP/DBP Cuff 08/17/2023 5:07 EST Systolic Blood Pressure 128 mm Hg Diastolic Blood Pressure 65 mm Hg 08/17/2023 0:49 EST Systolic Blood Pressure 113 mm Hg Diastolic Blood Pressure 65 mm Hg 08/16/2023 16:00 EST Systolic Blood Pressure 135 mm Hg Diastolic Blood Pressure 70 mm Hg 08/16/2023 12:00 EST Systolic Blood Pressure 107 mm Hg Diastolic Blood Pressure 80 mm Hg 08/16/2023 9:00 EST Systolic Blood Pressure 143 mm Hg H Diastolic Blood Pressure 80 mm Hg 08/16/2023 6:31 EST Systolic Blood Pressure 126 mm Hg Diastolic Blood Pressure 74 mm Hg 08/16/2023 0:39 EST Systolic Blood Pressure 106 mm Hg Diastolic Blood Pressure 69 mm Hg O2 Sat : Oxygen Saturation 08/17/2023 5:07 EST Oxygen Saturation 97 % 08/17/2023 0:49 EST Oxygen Saturation 97 % 08/16/2023 16:00 EST Oxygen Saturation 98 % 08/16/2023 12:00 EST Oxygen Saturation 95 % 08/16/2023 9:00 EST Oxygen Saturation 100 % 08/16/2023 6:31 EST Oxygen Saturation 91 % L 08/16/2023 0:39 EST Oxygen Saturation 97 % Impression and Plan Impression and Plan Comprehensive Assessment Plan as follows Patient is a 53 yo female with medical history of iDDM II, h/o IVDU/ polysubstance abuse on home methadone 135mg qDaily. Patient presented 08/12 found to have right diabetic foot wound/ gangrene now s/p right BKA (08/12/23), POD5. Patient reports constant 10/10 right surgical site pain, described as waxing and waning ache. She denies any radiation, loss of bowel or bladder control and saddle anesthesia. Pain worsens with movement, and is intermittently better (to 8/10) with pain medication. -Out pt pain medications: Gabapentin Duloxetine Methadone 135mg PO qDaily -In pt pain regimen: Tylenol 975mg TID Gabapentin 300mg QID Methadone 135mg qDaily Oxycodone 5mg q4 hrs Recommendations: - continue Tylnol 975mg TID - continue Gapapentin 300 mg QID - continue Methadone 135mg d Daily without intention to increase dosage as patient has QTc prolongation. - Discontinue IV Dilaudid 2mg q3hrs and increase Oxycodone to 20mg PO q4 Hrs - Recommended PRN Dilaudid 0.5-1mg IV for breakthrough pain only. Limit use in anticipation of discharge planning. Care plan disucssed with attending physiciain, Dr. Bautista. Thank you allowing [facility] to participate in the care of this patient. Please page [phone] with any questions. * Michele QUINN, Joel Ferguson: PERFORM Event Display: Consultation Note Authored Date: Patient seen and examined with resident physician. Agree with plan as documented herein. Patient with persistent postoperative surgical pain at incisional site. Now postoperative day 5. Would not recommend continuing with Dilaudid BILLET [employer]ORDER for this patient. Recommend rotating to oxycodone from Dilaudid potential longer acting effect and increasing dose there in an increasing frequency. Ultimate goal will be to then downgrade oxycodone over time to the patient no longer requires it. No adjustments tomethadone can be made at this point. Otherwise continue with regimen as described above. Was a pleasure to meet this patient in consultation. If this regimen is effective for discharge, APS to sign off. * Bev Alcantara DO: PERFORM, MODIFY, MODIFY, MODIFY, MODIFY, MODIFY Event Display: Consultation Note Authored Date: Patient: ??XCALIBUR, GUINNEVERE ? Age:??53 Years?Sex:??Female?:??1970?? Chief Complaint/Reason for Consultation Referring Physician:?Dr. Sahni?? Reason for consult:?Anxiety, substance use history Psychiatry attending: Dr. 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 She was found to have right foot gangrene and concern for osteomyelitis. She mas medically admitted for further management,??underwent right BKA by vascular surgery. In PACU, she was in septic shock requiring pressor support??and ??transferred to MICU. She??was then stabilized, and transferred back to medicine service. Psychiatric service is being consulted for??anxiety and substance use history. ?? On initial evaluation, patient was awake, alert and oriented x 3.?? She reports having a history ofanxiety and depression, has been on multiple psychiatric??medications in the past, including SSRIs,??benzodiazepines, and other medications that she does not remember,??but states that??she??only wants to??continue alprazolam??use for anxiety??symptoms.?? She reports worsening depressive symptoms including changes in sleep, appetite,??hopelessness, fatigue and??low energy??in recent months secondary to multiple psychosocial stressors including??living??conditions (lives with her son, stays in the living room),??ongoing medical conditions,??limited social support, recent heroin relapse,??and the anniversary of her??'s ??in October.?? She states that due to psychosocial stressors, she recently relapsed??on heroin??after??abstaining from heroin use for approximately 2 years.?? She u nderstands that her??family is concerned about??heroin use,??and states they've tried to section me before. ??She is not interested in??substance use referral programs at this time, wants to continue methadone.?? For the majority of encounter, she perseverates on??disposition??options. ??She denies having??history of psychosis or lasha, denies SI/HI/AVH. ?? Past Psychiatric History:??anxiety, depression, substance use??disorder ?? Past Hospitalizations:??Denies any inpatient??or partial hospitalizations ?? Past Suicidality/Aggression/Self-Injurious Behavior:??hx of heroin overdose 2 years ago leading to CVA? Treatment Trials:?? Alprazolam 0.5 mg daily ?? Past trials -Paxil and??sertraline -states that SSRIs worsen SI ?? Treatment Providers:? No current psychiatric provider PCP managing??medications ?? Substance Use EtOH -occasional use Heroin??-heroin use, was abstinent from using heroin for approximately 2 years??on??methadone. ??Relapsed recently, has been using multiple times per week,??last use was??approximately 1 week ago. ??She is currently on methadone 165mg daily Cocaine - denies current use? Family History Depression??in the family ? 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 Review of Systems Pertinent positives as listed in subjective. ??Otherwise, remainder of review of systems negative. Objective Vital Signs?? Temperature: 97.7 DegF (08/17/23 05:07:00) Temperature Route: Oral (08/17/23 05:07:00) Pulse Rate: 86 bpm (08/17/23 05:07:00) Respiratory Rate: 17 br/min (08/17/23 08:56:00) Systolic Blood Pressure: 128 mm Hg (08/17/23 05:07:00) Diastolic Blood Pressure: 65 mm Hg (08/17/23 05:07:00) Blood pressure sites: Arm, left (08/17/23 05:07:00) Mean Arterial Pressure: 86 mm Hg (08/17/23 05:07:00) Pulse Pressure: 63 mm Hg (08/17/23 05:07:00) Oxygen Saturation: 97 % (08/17/23 05:07:00) Mode of Delivery (Oxygen): Room air (08/17/23 05:07:00) Early Warning Score: 2 (08/17/23 08:57:27) ? Physical Exam Mental Status Exam Appearance: dressed in hospital gown,??NAD, appears stated age, well groomed, good??hygiene Eye contact: appropriate Attitude: cooperative Motor Activity:??no tremors, no psychomotor agitation or??slowing Mood: Sad Affect: congruent, appropriately reactive Speech: normal rate, tone and prosody?? Perception: No delusions, AVH, paranoia, or abnormal thought content elicited. Orientation: intact ? Memory: intact Thought Process: Linear and goal directed Thought Content:??Disposition, psychiatric history Insight: Limited when it comes to substance use Judgment: Limited Suicidality/Self-destructive Behavior: denies SI/SIB Homicidality/Violence: denies ?? MSK Exam:??able to move all 4 extremities spontaneously. No rigidity noted.?? 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 She was found to have right foot gangrene and concern for osteomyelitis. She mas medically admitted for further management,??underwent right BKA by vascular surgery. In PACU, she was in septic shock requiring pressor support??and ??transferred to MICU. She??was then stabilized, and transferred back to medicine service. Psychiatric service is being consulted for??anxiety and substance use history. ?? On evaluation, patient is awake, alert and oriented x 3. ??Cooperative, agreeable to speaking.?? She reports having worsening anxiety and depressive symptoms??in recent months in the setting of multiple psychosocial stressors including??unstable housing and limited social support within household,?? difficult family dynamics,??ongoing substance use,??acute on chronic medical conditions, recent heroin relapse, and anniversary of the of her . ??She presents with neurovegetative symptoms, with??differential diagnosis of unspecified mood disorder versus??substance induced depressive disorder versus MDD. ??She reports having a history of opiate use disorder, was abstinent from opiates??for approximately 2 years on methadone, but recently relapsed secondary to stressors.?? She has limited insight into??severity of substance use, is an on precontemplative??stage of change. ??She does not want??substance use referrals at this time.?? When discussing psychiatric medications, she does not want to be started on an SSRI??to better target mood and anxiety symptoms.?? She wants to continue home alprazolam dose, wanted to have increase in alprazolam dose, discussed??side effect??profile from benzodiazepine use, and encouraged??eventual taper of benzodiazepine in the community.?? Vistaril can be utilized as needed for anxiety.?? She denies history of psychosis or lasha, denied??SI/HI/AVH. ?? DSM- 5 Diagnoses: Unspecified mood disorder Rule out substance-induced depressive disorder versus MDD Heroin use disorder,??moderate ?? Recommendations: -Does not want to be started on SSRI??for??anxiety or mood symptoms??at this time -Can continue to use home alprazolam??0.5 mg daily dose??as needed for anxiety -Start Vistaril??25 to 50 mg 3 times daily as needed for anxiety -Continue methadone??dose ?? Thank you for allowing us to participate in this patient's care. We will sign off. Please feel free to contact the Psychiatry consult service ([phone]) with any questions or concerns.? Case and plan discussed with attending psychiatrist, Dr. Cooney Recommendations??sent via [employer] to Dr. Sahni ?? Bev Alcantara, PGY-4 Department of Psychiatry Pager #[phone] Histories Past Medical History/Problem List Active Problems??(5) History of intravenous drug abuse History of opioid abuse History of smoking HTN (hypertension) S/P BKA (below knee amputation) unilateral ? Medications Home Medications apixaban (Eliquis 5 mg oral tablet)?1?tab(s)?5?Milligram?By Mouth?2 times a day Atorvastatin (atorvastatin 80 mg oral tablet)?1?tab(s)?80?Milligram?By Mouth?Daily at bedtime Duloxetine (duloxetine 30 mg oral enteric coated capsule)?1?capsule?30?Milligram?By Mouth?Daily empagliflozin (Jardiance 25 mg oral tablet)?1?tab(s)?25?Milligram?By Mouth?Daily in AM Insulin Glargine (Lantus Solostar Pen 100 units/mL subcutaneous solution)?35?unit(s)?Subcutaneous Injection?2 times a day before breakfast and dinne Lisinopril (lisinopril 5 mg oral tablet)?5?Milligram?1?tablet?By Mouth?Daily Metformin (metFORMIN 500 mg oral tablet)?1?tab(s)?500?Milligram?By Mouth?2 times a day Miscellaneous Rx (FREESTYLE LITE BLOOD GLUCOSE STRIPS)?USE TO TEST BLOOD SUGAR EVERY 8 HOURS Miscellaneous Rx (FREESTYLE LANCETS 100)?USE ONE EACH BY OTHER ROUTE THREE TIMES DAILY ? Inpatient Medications Medications (28) Active SCHEDULED: (11) Acetaminophen 325 mg Tablet (Acetaminophen Tablet) ??975 mg, By Mouth, 3 times a day Ampicillin/Sulbactam 3 Gm Inj (Ampicillin-Sulbactam) ??3 Gm, IVPB, Every 6 hours Gabapentin 300 mg Capsule (gabapentin 300 mg oral capsule) ??300 mg, By Mouth, 4 times a day Heparin 5000 units/mL Inj (1 mL) (Heparin Inj) ??5,000 units 1 mL, Subcutaneous Injection, 3 times a day Insulin Glargine 100 units/mL Inj (Lantus Inj) ??35 units 0.35 mL, Subcutaneous Injection, Daily Insulin Lispro 100 units/mL Inj (3mL) (Insulin LISPRO Sliding Scale) ??2-10 units, Subcutaneous Injection, 3 times a day before meals Methadone 10 mg Tablet (Methadone Tablet) ??135 mg, By Mouth, Daily NaCl 0.9% Flush 3ml (NaCL 0.9% Flush) ??3 mL, IV Push, Every 8 hours NaCl 0.9% Flush 3ml (NaCL 0.9% Flush) ??3 mL, IV Push, Every 8 hours Silver dressing gel (44.4mL) (SilvaSorb) ??1 application, Topically, Every other day Vashe Wound Care Emollient/Cleanser (Vashe Topical Solution) ??475 mL, Topically, Every other day CONTINUOUS: (0) PRN: (17) Alprazolam 0.5 mg Tablet (ALPRAZolam 0.5 mg oral tablet) ??0.5 mg, By Mouth, Daily Dextromethorphan-Guaifenesin 20 mg-200 mg/10 mL Liqu UD (Robitussin DM Liquid) ??10 mL, By Mouth, Every 4 hours Dextrose Inj Syringe (Dextrose 50% Inj Syringe (25Gm)) ??12.5 Gm, IV Push Slowly, Every 20 minutes Dextrose Inj Syringe (Dextrose 50% Inj Syringe (25Gm)) ??25 Gm, IV Push Slowly, Every 15 minutes Docusate Sodium 100 mg Capsule (Docusate Sodium Capsule) ??100 mg 1 capsule, By Mouth, 2 times a day Glucagon 1 mg Inj (Glucagon Inj) ??1 mg, Intramuscular, Once Glucose 40% Gel (15 Gm) (Glucose Gel) ??15 Gm, By Mouth, Every 20 minutes Glucose 40% Gel (15 Gm) (Glucose Gel) ??30 Gm, By Mouth, Every 20 minutes HYDROmorphone 2 mg/mL Inj Syringe (Dilaudid Inj) ??2 mg 1 mL, IV Push Slowly, Every 3 hours Melatonin 3 mg Tablet (Melatonin Tablet) ??3 mg, By Mouth, Daily at bedtime NaCl 0.9% Flush 3ml (NaCL 0.9% Flush) ??3 mL, IV Push, Every 8 hours NaCl 0.9% Flush 3ml (NaCL 0.9% Flush) ??3 mL, IV Push, Every 8 hours nalOXONE ??400mcg/mL Inj (nalOXONE Inj) ??0.2 mg 0.5 mL, IV Push, Every 5 minutes OxyCODONE 5 mg IR Tablet (oxyCODONE 5 mg oral tablet) ??5 mg, By Mouth, Every 4 hours Polyethylene Glycol 17 Gm Powder (MiraLax Powder) ??17 Gm 1 pack/packet, By Mouth, Daily Senna Tablet ??8.6 mg 1 tablet, By Mouth, 2 times a day Simethicone 80 mg Chewable Tablet (Simethicone Tablet) ??80 mg, Chew, 3 times a day ? Results Abnormal Labs ?? BLOOD COUNT & DIFF ??Abs. NRBC ??0.0 k/mm3 () ??08/17/2023 01:19 ??Hct ??23.9 % (Low) ??08/17/2023 01:19 ??Hgb ??7.1 Gm/dL (Low) ??08/17/2023 01:19 ??MCH ??25.7 pg (Low) ??08/17/2023 01:19 ??MCHC ??29.7 g/dL (Low) ??08/17/2023 01:19 ??MPV ??9.3 femtoliters (Low) ??08/17/2023 01:19 ??Nucleated RBC (Automated) ??0.0 #/100 WBC'S () ??08/17/2023 01:19 ??Platelet Count ??464 k/mm3 (High) ??08/17/2023 01:19 ??RBC ??2.76 m/mm3 (Low) ??08/17/2023 01:19 ??RDW-SD ??53.7 femtoliters (High) ??08/17/2023 01:19 ? CHEM GENERAL ??Albumin ??2.1 Gm/dL (Low) ??08/17/2023 01:19 ??Alkaline Phosphatase ??220 units/L (High) ??08/17/2023 01:19 ??Calcium ??6.6 mg/dL (Low) ??08/17/2023 01:19 ??Estimated GFR Creatinine ??106 ML/MIN/1.73 M2 () ??08/17/2023 01:19 ??Glucose Level ??117 mg/dL (High) ??08/17/2023 01:19 ??Glucose, POC ??186 mg/dL (High) ??08/17/2023 08:03 ??Magnesium ??1.4 mg/dL (Low) ??08/17/2023 01:19 ??Phosphorus ??2.4 mg/dL (Low) ??08/17/2023 01:19 ? Note: Critical results are displayed in red. ? * Dillon Cooney DO: PERFORM Event Display: Consultation Note Authored Date: ATTENDING PSYCHIATRIST NOTE: ??On the day of service, Dr. Alcantara??presented this case to me, I reviewed the chart, interviewed the patient, and discussed the case with Dr. Alcantara. ??I agree with the findings, impression, and recommendations as noted above. ?? * Dyana Hay RN: VERIFY, PERFORM, SIGN, SIGN, MODIFY Event Display: Consultation Note Authored Date: [id number] Patient: DIMPLE SIDDIQUI Age: 53 years Sex: Female : 1970 Associated Diagnoses: None Author: Dyana Hay RN History of Presenting Problem Date of Service 08/15/2023 Reason for referral Wound: Description Location: LLE Etiology: resolving cellulitis with skin changes Description: plaque (yellow and brown; loosely attached) and dried epidermal layer Measurements: diffuse Drainage: none Odor: na Edges: irregular; ill-defined; attached Periwound: intact; underlying erythema Pain: c/o pain at rest and tactile stimulation Goal of treatment: lock in moisture to soften and soothe skin . Wound: Description Location: left medial great toe Etiology: callus Description: hard, thickened skin Measurements: approximately 3cm in diameter Drainage: none Odor: na Edges: regular; defined; attached Periwound: intact; no erythema, induration or fluctuance noted Pain: denies Goal of treatment: lock in moisture to soften and soothe skin . Wound: Description Location: left lateral plantar foot Etiology: diabetic foot wound with fissure Description: wound bed with red/maroon, dried tissue; split in skin at the 9 o'clock aspect Measurements: 1cm x cm x 0.4cm Drainage: none Odor: na Edges: irregular; defined; attached Periwound: callus (blood-stained in areas); no erythema, induration or fluctuance noted Pain: denies Goal of treatment: donate moisture to wound bed; antimicrobial action; lock in moisture to soften callus . left posterior calf left anterior LE left great toe left lateral plantar foot Received wound RN consult to assess left leg wound and provide appropriate topical wound care recommendations. Patient recently admitted to [facility] with c/o right foot pain, fever and chills. Noted to have diabetic ketoacidosis and right foot infection. Underwent right BKA on 08/12/23. She has a PMH significant for HTN, DM, CVA, OD and polysubstance abuse in the past (currently on Methadone) Upon entry into patient's room, she is found lying in bed, alert and oriented x 3. Role of wound RNis explained and she is amenable to continuing with consult and photodocumentation. LLE leg and foot are visualized and described as above. She reports that she will be going back to the [facility] when I get out of here. They are familiar with me . Spoke with patient and direct care RN r egarding recommendations. Spoke to Dr Cabrera in person as well Recommendations: 1. LLE and left great toe- Cleanse with ph balanced skin cleanser. Pat dry. Apply Hydraguard silicone cream (blue top cream) daily and as needed. Avoid application between toes 2. left lateral plantar foot- Cleanse with Vashe. Pat dry. Apply Silvasorb to wound bed. Apply A&D to periwound callus. Cover with gauze, wrap with viky and secure with tape. Change every other day. 3. Continue to provide optimal nutritional support Please reconsult wound RN for deterioration in wound/skin status. Plan Recommendations Nutrition Plan Consult Industrial Relations Officer Maximize nutritional support Mobility Raman Score : Raman Score 08/14/2023 14:13 EST Raman Score 13 08/13/2023 20:00 EST Raman Score 17 08/13/2023 9:00 EST Raman Score 16 Patient Teaching Discussed plan of care with patient Discussed plan of care with RN Time spent 31-45 minutes Patient Care team information Care Team Personnel Name: Ana Riley RN Position: S RN Member Role: Primary Care Nurse Name: Bev Persaud RN Position: S RN Member Role: Primary Care Nurse Name: Danial Garcia RN Position: S RN Member Role: Primary Care Nurse Name: Vidhya Sylvester RN Position: S RN Member Role: Primary Care Nurse Name: Sarah Garrett RN Position: [facility] RN Member Role: Primary Care Nurse Name: Lazara Lopez RN Position: [facility] RN Member Role: Primary Care Nurse Name: Lisseth Mchugh RN Position: [facility] RN Member Role: Primary Care Nurse Name: Abby Auguste RN Position: [facility] RN Member Role: Primary Care Nurse Name: Not on Staff, PCP Position: [facility] Physician (General Medicine) Member Role: PCP Name: Anu Nunn RN Position: [facility] RN Member Role: Primary Care Nurse Name: Fabienne Arthur RN Position: [facility] RN Member Role: Primary Care Nurse Care Team Related Persons Name: ADRIENNE EVANS Name: YARA SIDDIQUI Address: [address] [address]
--- OUTSIDE RECORDS SUMMARY | 2024-03-31 01:07 | XMS_ITS | Continuity of Care Document ---
Author Organization [facility] Address [address] [place] [address]- Care Team Providers Care Mold Closer Helper Name Role Phone Not on Staff, PCP Primary Care Physician Unavail able Encounter [facility] Date(s): 01/22/24 - 02/21/24 [facility] [address] [place] [id number] Attending Physician: Kimber Haynes NP Admitting Physician: [...] Team Personnel Name: Bev Persaud RN Position: [facility] RN Member Role: Primary Care Nurse Name: Danial Garcia RN Position: [facility] RN Member Role: Primary Care Nurse Name: Vidhya Sylvester RN Position: S RN Member Role: Primary Care Nurse Name: Sarah Garrett RN Position: S RN Member Role: Primary Care Nurse Name: Lazara Lopez RN Position: S RN Member Role: Primary Care Nurse Name: Lisseth Mchugh RN Position: S RN Member Role: Primary Care Nurse Name: Abby Auguste RN Position: [facility] RN Member Role: Primary Care Nurse Name: Not on Staff, PCP Position: [facility] Physician (General Medicine) Member Role: PCP Name: Anu Nunn RN Position: [facility] RN Member Role: Primary Care Nurse Name: Fabienne Arthur RN Position: [facility] RN Member Role: Primary Care Nurse Care Team Related Persons Name: ADRIENNE EVANS Name: YARA KRAUS Address: [address] [address]
--- OUTSIDE RECORDS SUMMARY | 2024-03-31 01:07 | XMS_ITS | Continuity of Care Document ---
Author Organization [facility] Address [address] [place] [address]- Care Team Providers Care Data Technical Lead Name Role Phone Not on Staff, PCP Primary Care Physician Unavail able Encounter [facility] Date(s): 09/06/23 - 10/06/23 [facility] [address] [place] [id number]- Allergies, Adverse Reactions, Alerts Substance Reaction Severity [...] Team Personnel Name: Ana Riley RN Position: [facility] RN Member Role: Primary Care Nurse Name: Bev Persaud RN Position: [facility] RN Member Role: Primary Care Nurse Name: [...] Care Nurse Name: Abby Auguste RN Position: [facility] RN Member Role: Primary Care Nurse Name: Not on Staff, PCP Position: [facility] Physician (General Medicine) Member Role: PCP Name: Anu Nunn RN Position: [facility] RN Member Role: Primary Care Nurse Name: Fabienne Arthur RN Position: [facility] RN Member Role: Primary Care Nurse Care Team Related Persons Name: ADRIENNE EVANS Name: YARA KRAUS Address: [address] [address]
--- OUTSIDE RECORDS SUMMARY | 2024-03-31 01:07 | XMS_ITS | Continuity of Care Document ---
Author Organization [facility] Address [address] [place] [address]- Care Team Providers Care Professor Of Family Medicine Name Role Phone Not on Staff, PCP Primary Care Physician Unavail able [place] [facility] [place] 09[place]18/23 - 09/25/23 [facility] [address] [place] [address]- Attending Physician: Nikhil Gagnon MD Admitting Physician: Nikhil Gagnon MD Referring Physician: Leandro Ramirez MD Allergies, Adverse Reactions, Alerts Substance Reaction [...] Confirmed Active Obese class I Confirmed Active Vital Signs Most recent to oldest [Reference Range]: 1 Height 167 cm (09/18/23 2:37 PM) Weight 89.6 kg (09/18/23 2:37 PM) Oxygen Saturation [94-100 %] 98 % (09/18/23 2:37 PM) Pulse Rate [55-90 bpm] 75 bpm (09/18/23 2:37 PM) Body Mass Index [18.5-24.99 kg/m2] 32.13 kg/m2 *>HHI* (09/18/23 2:37 PM) Blood Pressure [90-138/55-84 mm Hg] 118/ 62mm Hg (09/18/23 2:37 PM) Mode of Delivery (Oxygen) Room air (09/18/23 2:37 PM) Blood pressure sites Arm, right (09/18/23 2:37 PM) Weight Obtained Via Patient/family state d (09/18/23 2:37 PM) Note * Ricardo Muhammad: PERFORM, SIGN, VERIFY Event Display: Patient Education/Instruction Authored Date: [id number] *[facility] [address] Clinical Summary Name DIMPLE KRAUS Age 53 Years 1970 PCP Not on Staff, PCP PCP Phone Visit Date 09/18/2023 14:17:00 Patient Instructions Sutures removed today 09/18/23. Steristrips applied and kerlix placed; may take a shower?? tomorrow??and pat dry steristrips;??the ends will start to curl; ok to trim the tips, otherwise allow the steristrips??to fall off by themselves in 5-7 days.??avoid tub baths and prolonged soaking Additional Instructions: Scheduled Appointments?? Future Appointments ?*[facility],??[place],??[address] ?Phone:??--?Fax:??-- ?Appt. Date:??10/18/2023?11:30 AM ?Scheduled Provider:??Zenobia Warren NP Follow-Up Instructions ?? With: Address: When: Ashley QUINN, Leandro Ferguson [address] [facility] [address] In 1 month Comments: office will call you to make the??apoointment Diagnosis Medications: Please continue your medications until treatment is completed or stopped by your provider. Discuss any questions related to medications with your provider. Medications to Continue with No Changes These medications were not printed or sent to your pharmacy Ampicillin-Sulbactam (Ampicillin/Sulbactam IVPB) 3 gram IV Piggyback every 6 hours. Next Dose: apixaban (Eliquis 5 mg oral tablet) 1 tab(s) Oral twice a day. Next Dose: Atorvastatin (atorvastatin 80 mg oral tablet) 1 tab(s) Oral Daily at Bedtime. Next Dose: Baclofen (baclofen 5 mg oral tablet) 1 tab(s) Oral 3 times a day. Refills: 0. Next Dose: Duloxetine (duloxetine 30 mg oral enteric coated capsule) 1 capsule Oral Daily. Next Dose: Emollients, Topical (Vashe Topical Solution) 475 Milliliter Topically every other day. Next Dose: empagliflozin (Jardiance 25 mg oral tablet) 1 tab(s) Oral Daily in the morning. Next Dose: Gabapentin (gabapentin 300 mg oral capsule) 600 Milligram Oral 4 times a day. Next Dose: HydrOXYzine (hydrOXYzine pamoate 25 mg oral capsule) 25 Milligram Oral 3 times a day as needed Anxiety. Next Dose: Insulin Glargine (Lantus Inj) 35 unit(s) Subcutaneous Injection Daily. Next Dose: Insulin Lispro (insulin lispro 100 u/ml subcutaneous injection) 2-10 units Subcutaneous Injection 3times a day before meals. << Sliding Scale Comments >> 150 - 199 2 units Call if less than 70 200 - 249 4 units 250 - 299 6 units 300 - 349 8 units 350 - 399 10 units Call if greater than 400 << Sliding Scale Comments >>. Next Dose: Metformin (metFORMIN 500 mg oral tablet) 1 tab(s) Oral twice a day. Next Dose: Methadone 135 Milligram Oral Daily. Next Dose: Miscellaneous Rx (FREESTYLE LANCETS 100) USE ONE EACH BY OTHER ROUTE THREE TIMES DAILY. Next Dose: Miscellaneous Rx (FREESTYLE LITE BLOOD GLUCOSE STRIPS) USE TO TEST BLOOD SUGAR EVERY 8 HOURS. Next Dose: Polyethylene Glycol 3350 (MiraLax Powder) 17 gram Oral Daily as needed Constipation. Next Dose: Senna (senna 187 mg oral tablet) 1 tab(s) Oral twice a day as needed Constipation. Next Dose: silver topical (SilvaSorb) 1 applicator Topically every other day. Next Dose: Allergy Info:?? predniSONE Medications Given This Visit Future Orders ?No future orders Vital Signs Height 167 cm Weight 89.6 kg BMI 32.13 kg/m2 Blood Pressure 118 mm Hg/62 mm Hg Temperature Pulse Rate 75 bpm Respiratory Rate 02 Sat Mode of Delivery 98 %/Room air You can now view a summary of your hospital visit from the comfort of your home through a free online portal called [facility]. [facility] is a website that allows you to securely view your medical information including discharge summary, medications and follow-up visits. ??You can alsosend a secure electronic message to your doctor???s office to request appointments, renew medications or just ask a question. You can enroll at [email or web address] or register during your next office visit. Disclaimer:?? The information provided is of a general nature and is intended to be used in conjunction with the recommendations and advice of your health care practitioner. ??Every effort has been made to ensure that the information provided is accurate and complete at the time it is provided to you however, as your needs change, or, as new ??information becomes available, different or additional instructions may be required. If you have questions, please consult with your primary care provider or pharmacist, as appropriate. ??This information is not intended to serve as substitution for assessment and evaluation by a qualified health care provider. If you do not have a primary care provider, you may find a [facility] provider by calling [facility] [employer] Link at [phone]. [facility], in keeping with [facility] guidance, no longer requires face masks for staff, patientsor visitors in most situations. Similar to time spent indoors at other locations, there is the chance that you were exposed to respiratory viruses during your time with us (such as flu or COVID-19).? If you develop symptoms concerning for a viral respiratory infection, please seek testing (and treatment if indicated) from your medical provider or home test kit. For information about the plan of care including goals and instructions for your diagnosis, please see the patient education orders section of this document. Patient Education Materials?? The content of this educational material or handout may have been modified, supplemented, or adapted from its original content and format to support your individualized medical care. Patient Care team information Care Team Personnel Name: Ana Riley RN Position: S RN Member Role: Primary Care Nurse Name: Bev Persaud RN Position: S RN Member Role: Primary Care Nurse Name: Danial Garcia RN Position: S RN Member Role: Primary Care Nurse Name: Vidhya Sylvester RN Position: S RN Member Role: Primary Care Nurse Name: Sarah Garrett RN Position: [facility] RN Member Role: Primary Care Nurse Name: Lazara Lopez RN Position: [facility] RN Member Role: Primary Care Nurse Name: Lisseth Mchugh RN Position: [facility] RN Member Role: Primary Care Nurse Name: Abby Auguste RN Position: [facility] RN Member Role: Primary Care Nurse Name: Not on Staff, PCP Position: [facility] Physician (General Medicine) Member Role: PCP Name: Anu Nunn RN Position: [facility] RN Member Role: Primary Care Nurse Name: Fabienne Arthur RN Position: [facility] RN Member Role: Primary Care Nurse Care Team Related Persons Name: ADRIENNE EVANS Name: YARA KRAUS Address: [address] [address]
--- OUTSIDE RECORDS SUMMARY | 2024-03-31 01:07 | XMS_ITS | Continuity of Care Document ---
Author Organization [facility] Address [address] [place] [address]- Care Team Providers Care Proposal Writer Name Role Phone Not on Staff, PCP Primary Care Physician Unavail able Encounter [facility] Date(s): 09/19/23 - 11/24/23 [facility] [address] [place] [address] [address] Attending Physician: Zenobia Warren NP Admitting Physician: Zenobia Warren NP Allergies, Adverse Reactions, Alerts Substance Reaction [...] Team Personnel Name: Ana Riley RN Position: [facility] RN Member Role: Primary Care [...] Care Nurse Name: Lisseth Mchugh RN Position: [facility] RN Member Role: Primary Care Nurse Name: Abby Auguste RN Position: [facility] RN Member Role: Primary Care Nurse Name: Not on Staff, PCP Position: [facility] Physician (General Medicine) Member Role: PCP Name: Anu Nunn RN Position: [facility] RN Member Role: Primary Care Nurse Name: Fabienne Arthur RN Position: [facility] RN Member Role: Primary Care Nurse Care Team Related Persons Name: ADRIENNE EVANS Name: YARA KRAUS Address: [address] [address]
--- OUTSIDE RECORDS SUMMARY | 2024-03-31 01:07 | XMS_ITS | Continuity of Care Document ---
Author Organization [facility] Address [address] [place] [address]- Care Team Providers Care Trust Manager Name Role Phone Not on Staff, PCP Primary Care Physician Unavail able Encounter [facility] Date(s): 10/25/23 - 12/14/23 [facility] [address] [place] [id number] Attending Physician: Zenobia Warren NP Admitting [...] Team Personnel Name: Ana Riley RN Position: [facility] RN Member Role: Primary Care Nurse Name: [...] Care Nurse Name: Lisseth Mchugh RN Position: [facility] RN Member Role: Primary Care Nurse Name: Abby Auguste RN Position: [facility] RN Member Role: Primary Care Nurse Name: Not on Staff, PCP Position: [facility] Physician (General Medicine) Member Role: PCP Name: Anu Nunn RN Position: [facility] RN Member Role: Primary Care Nurse Name: Fabienne Arthur RN Position: [facility] RN Member Role: Primary Care Nurse Care Team Related Persons Name: ADRIENNE EVANS Name: YARA KRAUS Address: [address] [address]
--- OUTSIDE RECORDS SUMMARY | 2024-03-31 01:07 | XMS_ITS | Continuity of Care Document ---
Author Organization [facility] Address [address] [place] [id number]- Care Team Providers Care Horseradish Maker Name Role Phone Not on Staff, PCP Primary Care Physician Unavail able Encounter [facility] Date(s): 01/23/24 - 02/24/24 [facility] [address] [place] [id number] Attending Physician: Kimber Haynes NP Admitting [...] Team Personnel Name: Bev Persaud RN Position: [facility] RN Member Role: Primary Care Nurse Name: Danial Garcia RN Position: [facility] RN Member Role: Primary Care Nurse Name: Vidhya Sylvester RN Position: S RN Member Role: Primary Care Nurse Name: Sarah Garrett RN Position: S RN Member Role: Primary Care Nurse Name: Lazara Lopez RN Position: S RN Member Role: Primary Care Nurse Name: Lisseth Mchugh RN Position: S RN Member Role: Primary Care Nurse Name: Abby Auguste RN Position: [facility] RN Member Role: Primary Care Nurse Name: Not on Staff, PCP Position: [facility] Physician (General Medicine) Member Role: PCP Name: Anu Nunn RN Position: [facility] RN Member Role: Primary Care Nurse Name: Fabienne Arthur RN Position: [facility] RN Member Role: Primary Care Nurse Care Team Related Persons Name: ADRIENNE EVANS Name: YARA KRAUS Address: [address] [address]
[2024-03-31] MEDS: LORazepam 2 MG/ML VIAL 4 MG IVPUSH (01:08)
[2024-03-31] MEDS: Midazolam HCl/NS 50 MG/50 ML PLAST..BAG IVCONT (01:28)
--- NOTE | 2024-03-31 01:39 | P.HPCC_ITS ---
History of Present Illness Date of Service: 03/31/24 Attending physician on admission: Rc Bustamante Chief Complaint: Altered Mental Status Ms. Siddiqui is a 53-year-old female with history of peripheral artery disease, insulin-dependent type 2 diabetes, osteomyelitis s/p right BKA, NSTEMI, polysubstance use disorder, IVDU, bilateral pulmonary embolism on lifelong anticoagulation with Eliquis, MRSA bacteremia, and chronic opiate dependence on methadone who presented to emergency department via EMS for altered mental status. Her son reported that she had been complaining of pain and that her legs appeared more red over the last few days.?EMS reported an O2 sat in the low 80?s and gave her a nebulizer treatment en route.? On arrival to the ER, the patient was unresponsive. Her BP was 127/77, heart rate 86, respiratory rate 13, O2 sat 90% on room air. She was afebrile with temp 98.5 F. Laboratory data significant for WBC 13.0, lactic acid 2.4.? BUN 20 which appears to be her baseline. Glucose 299. VBG 7.34/54/55/29. UA negative for UTI.? Urine drug screen positive for methadone, fentanyl, benzodiazepines, marijuana. Imaging: Chest CT negative for PE, Diffuse bilateral multifocal pneumonia. ED course: The patient was given 0.5 mg IV Narcan and woke up immediately but O2 sats fell onto the70s, she became minimally responsive and was intubated.? She was given a total of 6 mg Ativan and started on a propofol drip. In addition she received 2 L normal saline, vancomycin 2 g, Zosyn 3.375 g, Review of Systems 2 Review of Systems: Yes unobtainable due to endotracheal tube PMFSH Past Medical History Medical History Hyperglycemia due to type 2 diabetes mellitus 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 Diabetic ulcer of lower leg Eschar of lower leg Peripheral arterial disease Pulmonary nodules Chronic respiratory failure Pneumonitis Obesity (BMI 35.0-39.9 without comorbidity) Acute respiratory failure with hypoxia NSTEMI (non-ST elevated myocardial infarction) Opioid use disorder Osteomyelitis Diabetes Anxiety Substance abuse Surgical History Surgical History S/P amputation of foot Status post transmetatarsal amputation of right foot (09/24/21) Social History Social History Household Members: Unknown / Unable to assess Household Members Other:: son Housing: Unknown / Unable to assess Unable to assess alcohol history related to: Unable to respond Alcohol intake: never Comment: took socks off Patient Tobacco Use Status: Tobacco use Unknown Tobacco use type: Cigarette Cigarette Packs Per Day: 0 Cigarettes Per Day: 1 Years Smoked: 40 e-Cigarette/Vaping Use: Currently Using Second Hand Smoke Exposure: No Use of substances other than those prescribed or required for medical reasons: Unknown Substance Use Type: Marijuana Last Used Substance: Unknown Advance Directives: Yes Advance Directives on File: Yes Advance Directives Date on File: 09/22/21 Do you have a plan to hurt others: Clear Patient : No service: No Current occupational status: unemployed Meds Allergies Allergy/AdvReac Type Severity Reaction Status Date / Time prednisone [PREDNISONE] Allergy Unknown RASH Verified 03/30/24 22:43 Active Medications: Current Medications Albuterol Sulfate (Albuterol Sulfate (0.083%) 2.5 Mg/3 Ml Vial.Neb) 2.5 mg INHALE Q4H PRN PRN Reason: Wheezing Albuterol/Ipratropium (Albuterol/Iprat 2.5/0.5mg 3 Ml Ampul.Neb) 3 ml INHALE ONCE ONE Stop: 03/31/24 01:34 Propofol (Diprivan) 1,000 mg in 100 mls @ 0 mls/hr IVCONT .Q0M DADA; Protocol Last Titration: 03/31/24 00:55 Dose: 50 mcg/kg/min, 29.91 mls/hr Midazolam HCl (Versed) 50 mg in 50 mls @ 2 mls/hr IVCONT .Q24H DADA Last Admin: 03/31/24 01:28 Dose: 2 mg/hr, 2 mls/hr Home Medications ?Medication ?Instructions ?Recorded ?Confirmed ?Last Taken ?Type acetaminophen 500 mg tablet 2 caplet PO Q6H PRN mild pain 08/24/22 02/26/24 Unknown History empagliflozin 25 mg tablet 25 mg PO DAILY 11/28/22 02/26/24 02/25/24 History (Jardiance) insulin glargine 100 unit/mL (3 35 unit subcut BID 11/28/22 02/26/24 02/25/24 History mL) subcutaneous pen (Lantus Solostar U-100 Insulin) atorvastatin 80 mg tablet 80 mg PO DAILY 02/26/24 02/26/24 02/25/24 History baclofen 10 mg tablet 10 mg PO TID 02/26/24 02/26/24 02/25/24 History dulaglutide 0.75 mg/0.5 mL 0.75 mg subcut MO 02/26/24 02/26/24 02/19/24 History subcutaneous pen injector (Trulicity) duloxetine 30 mg capsule,delayed 30 mg PO DAILY 02/26/24 02/26/24 02/25/24 History release methadone 10 mg/mL oral 140 mg PO DAILY 02/27/24 02/27/24 02/25/24 History concentrate (Methadone Intensol) Physical Exam 2 Vital Signs: Vital Signs: Last Vital Signs Temp 98.5 F 03/30/24 23:44 Pulse 112 H 03/31/24 00:00 Resp 20 03/31/24 00:00 BP 156/101 H 03/31/24 00:00 Pulse Ox 95 03/30/24 23:56 O2 Del Method Mechanical Ventil ation 03/30/24 23:44 FiO2 75 03/31/24 00:00 BMI result Body Mass Index 42.9 Const: General: no acute distress Nutritional Appearance: obese HEENT: Head: Yes normocephalic and Yes atraumatic General nose exam: Normal external nose present (Nares patent, septum midline, sinuses nontender bilaterally.) Neck: Neck: Yes supple (no thyromegaly, trachea midline.) Carotids: normal carotid upstroke Resp: Auscultation: wheezes inspiratory wheezes and diminished lung sounds bilateral in the lower lung wolf Cardio: Jugular venous distension: no JVD Rate: regular rate Rhythm: r egular rhythm Heart sounds: no gallops, no murmurs and no rubs GI: Inspection: Yes Abdominal panniculus present, Yes obesity and Yes visible herniation Palpation (GI): Soft to palpation (nondistended.) and nontender Skin: General skin exam: dry skin (flaky skin BLE) and other (Seborrheic dermatitis scalp) Wounds: no wounds (ulceration left calf) Extrem: Right lower extremity: lower leg (BKA) Details: erythema (desquamation of stump) Left lower extremity: lower leg Details: erythema (excessive dryness) and foot (desquamation of the skin of the foot ) Details: abnormal ROM of toe (partial amputaion of great toe) Results Labs 03/30/24 22:32 03/30/24 22:32 Labs: Laboratory Results - last 24 hr 03/30/24 03/30/24 03/30/24 22:15 22:32 22:40 MCV 91.1 MCH 28.7 MCHC 31.5 RDW 13.9 Plt Count 330 MPV 10.2 Immature Gran % (Auto) 0.4 Neut % (Auto) 81.7 H Lymph % (Auto) 11.7 L [place] % (Auto) 4.9 Eos % (Auto) 0.8 Baso % (Auto) 0.5 Lymph # (Auto) 1.5 [place] # (Auto) 0.6 Eos # (Auto) 0.1 Baso # (Auto) 0.1 Abs Immat Gran (auto) 0.05 H Absolute Neuts (auto) 10.6 H Absolute Nucleated RBC 0.000 Nucleated RBC % (auto) 0.0 PT 11.4 D INR 0.9 VBG pH VBG pCO2 VBG pO2 VBG HCO3 VBG O2 Saturation VBG Base Excess Anion Gap 14 Estim Creat Clear Calc 61.0 Estimated GFR 50 POC Glucose 301 H Random Glucose 299 H Lactic Acid 2.4 H* Calcium 9.0 Magnesium 1.9 Total Bilirubin 0.2 Direct Bilirubin < 0.2 AST 13 ALT 12 Alkaline Phosphatase 96 Ammonia 36 Troponin I High Sens 3.8 D B-Natriuretic Peptide 22 Total Protein 7.3 Albumin 3.8 Lipase 9 TSH 1.63 Urine Color Yellow Urine Appearance Clear Urine pH 6.0 Ur Specific [place] >= 1.030 H Urine Protein Trace Urine Glucose (UA) >=1000 H Urine Ketones Negative Urine Blood Negative Urine Nitrite Negative Ur Leukocyte Esterase Trace H Urine RBC 0-2 Urine WBC 11-20 H Ur Squamous Epith Cells 3-5 Urine Bacteria None Seen Hyaline Casts 3-5 Urine Opiates Screen Not Detected Ur Buprenorphine Scrn Not Detected Ur Oxycodone Screen Not Detected Urine Methadone Screen Positive H Urine Fentanyl Screen POSITIVE H Ur Barbiturates Screen Not Detected Ur Phencyclidine Scrn Not Detected Ur Amphetamines Screen Not Detected U Benzodiazepines Scrn POSITIVE H Urine Cocaine Screen Not Detected U Marijuana (THC) Screen POSITIVE H Ethyl Alcohol < 10 Influenza Type A (PCR) NEGATIVE Influenza Type B (PCR) NEGATIVE RSV RNA Qual (PCR) NEGATIVE SARS-CoV-2 RNA (RT-PCR) NEGATIVE 03/30/24 22:47 MCV MCH MCHC RDW Plt Count MPV Immature Gran % (Auto) Neut % (Auto) Lymph % (Auto) [place] % (Auto) Eos % (Auto) Baso % (Auto) Lymph # (Auto) [place] # (Auto) Eos # (Auto) Baso # (Auto) Abs Immat Gran (auto) Absolute Neuts (auto) Absolute Nucleated RBC Nucleated RBC % (auto) PT INR VBG pH 7.34 VBG pCO2 54 VBG pO2 55 VBG HCO3 29 H VBG O2 Saturation 80.0 VBG Base Excess 2.7 Anion Gap Estim Creat Clear Calc Estimated GFR POC Glucose Random Glucose Lactic Acid Calcium Magnesium Total Bilirubin Direct Bilirubin AST ALT Alkaline Phosphatase Ammonia Troponin I High Sens B-Natriuretic Peptide Total Protein Albumin Lipase TSH Urine Color Urine Appearance Urine pH Ur Specific [place] Urine Protein Urine Glucose (UA) Urine Ketones Urine Blood Urine Nitrite Ur Leukocyte Esterase Urine RBC Urine WBC Ur Squamous Epith Cells Urine Bacteria Hyaline Casts Urine Opiates Screen Ur Buprenorphine Scrn Ur Oxycodone Screen Urine Methadone Screen Urine Fentanyl Screen Ur Barbiturates Screen Ur Phencyclidine Scrn Ur Amphetamines Screen U Benzodiazepines Scrn Urine Cocaine Screen U Marijuana (THC) Screen Ethyl Alcohol Influenza Type A (PCR) Influenza Type B (PCR) RSV RNA Qual (PCR) SARS-CoV-2 RNA (RT-PCR) Imaging Radiologist's Impressions: Impressions Chest X-Ray 03/30/24 22:19 IMPRESSION: 1. No acute pulmonary disease. 2. Similar appearance of intrathoracic loops of bowel projecting over the right lung base in keeping with known diaphragmatic hernia, better seen on prior chest CTA. Electronically signed by: Giselle Weller MD 03/30/2024 11:40 PM EDT Chest CTA 03/31/24 00:38 IMPRESSION: 1. Suboptimal study secondary to poor arterial enhancement. No acute pulmonary embolus up to the segmental level. 2. Diffuse bilateral multifocal pneumonia. Fleischner guidelines were followed. Electronically signed by: Sunny Liz DO 03/31/2024 12:50 AM EDT RP Assessment and Plan (1) Cellulitis: Qualifiers: Laterality: unspecified laterality Site of cellulitis: extremity Site of cellulitis of extremity: lower extremity Qualified Code(s): L03.119 - Cellulitis of unspecified part of limb Status: Acute (2) Acute hypoxic respiratory failure: Status: Acute (3) Pneumonia: Qualifiers: Laterality: bilateral Lung location: unspecified part of lung P neumonia type: due to unspecified organism Qualified Code(s): J18.9 - Pneumonia, unspecified organism Status: Acute (4) Hyperglycemia due to type 2 diabetes mellitus: Qualifiers: Diabetes mellitus intermediate insulin use: unspecified intermediate project manager insulin use status Qualified Code(s): E11.65 - Type 2 diabetes mellitus with hyperglycemia Status: Acute (5) Overdose: Qualifiers: Encounter type: initial encounter Injury intent: accidental or unintentional Qualified Code(s): T50.901A - Poisoning by unspecified drugs, medicaments and biological substances, accidental (unintentional), initial encounter Status: Acute Plan 53-year-old female with history of peripheral artery disease, insulin-dependent type 2 diabetes, osteomyelitis s/p right BKA, NSTEMI, polysubstance use disorder, IVDU, bilateral pulmonary embolism on lifelong anticoagulation with Eliquis, MRSA bacteremia, and chronic opiate dependence admitted for overdose complicated by pneumonia and acute respiratory failure. Neuro: ?Acute alteration of mental status secondary to substance overdose.? Cardiac: ? No acute issues. Pulmonary:? Acute respiratory failure requiring intubation. Bilateral multifocal pneumonia seen on CT.? Continue Vanco, Zosyn. Renal:? No acute issues Endo: ?Underlying DM2. SS insulin per protocol. GI: No acute issues.? ID: Bilateral multifocal pneumonia. Cellulitis of BLE. Urine sent. Blood cultures pending. Continue antibiotics. Heme/Onc: Chest CT negative for PE. History of bilateral PE on eliquis. Continue anticoagulation.? Psych: Opioid overdose. Addiction medicine consult placed.? Prophylaxis: eliquis, pneumatic hoses.? Diet: NPO Case discussed with attending Dr. Bustamante. Total time managing care of this patient today: 75 minutes.
[2024-03-31] MEDS: Albuterol/Iprat 2.5/0.5MG 3 ML AMPUL.NEB INHALE (01:59)
[2024-03-31] MEDS: propofoL 1,000 MG/100 ML VIAL 29.91 MG IVCONT (02:12)
[2024-03-31] MEDS: Norepinephrine Bitartrate/D5W 8 MG/250 ML PLAST..BAG 9.35 MG IVCONT ×2 (02:22→16:48)
[2024-03-31 02:32] LABS: Glucose, Whole Blood 272 mg/dL (60-115)
[2024-03-31] MEDS: Insulin Lispro 100 UNIT/ML 3 ML VIAL SUBCUT ×4 (02:34→18:06)
[2024-03-31] MEDS: Piperacillin Sodium/Tazobactam 3.375 GM in 0.9 % Sodium Chloride 50 ML IV ×4 (04:32→23:45)
[2024-03-31] MEDS: propofoL 1,000 MG/100 ML VIAL 17.95 MG IVCONT ×4 (05:01→20:55)
--- NOTE | 2024-03-31 05:39 | PC.NURSE ---
Patient arrived to ICU from ED at approx 0130. Upon initial assessment, patient intubated and sedated on propofol (see MAR), RASS -2. Versed gtt added per TYREE Miramontes, see MAR. RASS goal of -3 with versed added. NSR on tele with occ PVCs, HR 70s-90s. SBP 70s-80s, MAP <65. Levophed gtt ordered by YTREE Miramontes and titrated per MAR for MAP goal >65. ETT #7.5, 22cm @ lip, initially on ACVC, but stacking breaths and subsequently switched to PSV of 10/5, 75% by RT. Patient had several apneic episodes on PSV, and was switched to ACPC 18/15/5/30% by RT. Wheezing auscultated throughout, duoneb administered by RT. Small amount of thick white secretions when in-line suctioned. NGT present on arrival, found to be coiled in mouth and removed per IT AUDIT MANAGER. Core esophageal probe placed, Tmax 101.1. Abdomen soft round, positive bowel sounds x4. Young catheter in place draining clear, pale yellow urine. Patient skin largely warm and dry; BLE dry, flaking, hot to touch, appearing cellulitic. Open area on medial left calf, draining small amount of serous fluid. Cleansed with saline, pat dry and xeroform and gauze wrap applied. Patient has BKA to right extremity, with same cellulitic redness.Family updated by TYREE Miramontes by phone. Bed locked in lowest position, bed alarm on, repositioned Q2HR with pillows and wedges.
[2024-03-31 05:50] LABS: ABG Base Excess -2.1 mmol/L; ABG HCO3 23 mmol/L (22-26); ABG pCO2 43 mmHg (32-45); ABG pH 7.34 (7.35-7.45); ABG pO2 78 mmHg (83-108)
[2024-03-31 06:04] LABS: ABG Refer to POC result
[2024-03-31 06:19] LABS: MANUAL DIFF FLAG NO
--- NOTE | 2024-03-31 06:22 | HO.SKINPHOTO ---
Location: Left medial calf Location: Right leg
[2024-03-31 06:31] LABS: Basophils Absolute Auto 0.1 X10*3/uL (0.0-0.2); Basophils Percent Auto 0.8 % (0-2); Eosinophils Percent Auto 0.1 % (0-4); Hemoglobin 12.5 g/dl (12.0-16.0); Imm Gran Abs Auto 0.15 X10*3/uL (0.00-0.03); Imm Gran Pct Auto 0.8 % (0.0-0.4); Lymphocytes Absolute Auto 1.5 X10*3/uL (1.2-4.9); Lymphocytes Percent Auto 8.3 % (20-40); Mean Corpuscular HGB Conc 31.3 g/dl (31.0-35.0); Mean Corpuscular Hemoglobin 28.8 pg (27.0-33.0); Mean Corpuscular Volume 92.2 fL (80.0-98.0); Mean Platelet Volume 10.9 fL (9.4-12.3); Monocytes Percent Auto 5.3 % (2-11); Neutrophils Absolute Auto 15.6 x10*3/uL (2.0-8.3); Neutrophils Percent Auto 84.7 % (45-73); Platelet Count 400 X10*3/uL (160-400); Red Blood Count 4.34 X10*6/uL (4.20-5.50); Red Cell Distribution Width 14.3 % (11.0-16.0); White Blood Count 18.4 X10*3/uL (4.8-10.8)
[2024-03-31 06:40] LABS: Albumin Level 3.2 g/dL (3.5-5.0); Anion Gap 19 (12-20); Blood Urea Nitrogen 17 mg/dL (9-16); Calcium 8.2 mg/dL (8.4-10.2); Carbon Dioxide 18 mmol/L (22-29); Chloride 111 mmol/L (96-108); Creatinine Clr Calc Pharmacy 72.2; Estimated Glomerular Filt Rate > 60; Glucose Random 284 mg/dL (60-115); Magnesium 1.8 mg/dL (1.6-2.6); Phosphorus 4.8 mg/dL (2.7-4.5); Potassium 4.7 mmol/L (3.3-5.1); Sodium 143 mmol/L (135-145)
--- NOTE | 2024-03-31 06:47 | PHA.PROG ---
Admission Date/Time: March 31, 2024 00:58 Indication: pneumonia/cellulitis Weight in k.7 kg Adjusted body weight in Kg: Hunter body weight in Kg: Obesity Dosing Indication % IBW: Serum Creatinine - Last 168 Hours 03/30/24 03/31/24 22:32 Unknown Creatinine 1.13 0.95 Estimated CrCl and GFR - Last 168 Hours 03/30/24 03/31/24 22:32 Unknown Estim Creat Clear Calc 61.0 72.2 Estimated GFR 50 > 60 Vancomycin Loading Dose: 2000mg x 1 Current Vancomycin Dosing Regimen: 750mg Q12H Vancomycin Monitoring using AUC goal of 400 - 600 range with trough as surrogate marker: 520mg/L Date and Time for next Vancomycin Level to be drawn: 04/01 @0900 Pharmacist Comments on Vancomycin Plan: Obese model being used; predicted trough of 16.3mg/L Vancomycin dosing will take advantage of [employer] as a clinical decision support tool that uses Bayesian modeling to calculate individual patient's pharmacokinetic parameters and forecast the patient's drug concentration time course with the target goal AUC 24 range of 400 - 600 mg/L/hr.
[2024-03-31] MEDS: Chlorhexidine Gluc Oral Rinse 15 ML MOUTHWASH BUCCAL ×3 (07:58→20:00)
[2024-03-31] MEDS: 0.9 % Sodium Chloride Flush 3 ML SYRINGE IVFLUSH ×2 (07:59→15:06)
[2024-03-31 08:18] LABS: Reflex Lactate? 2 Y
--- NOTE | 2024-03-31 09:29 | PHA.MEDREC ---
Addendum entered by Eliza Kowalski RPh 03/31/24 09:40: [facility] REVIEWED Original Note: Pharmacy Consult ? Medication Reconciliation Pharmacy has completed the medication reconciliation. Called family to confirm meds. Per family though, last recorded dose for lantus was 35 units with lispro sliding scale, unsure if the patient still takes 35 units currently of lantus.
[2024-03-31 10:17] LABS: Beta-Hydroxybutyrate 0.19 mmol/L (0.02-0.27)
--- NOTE | 2024-03-31 10:20 | MHC.CM.PN ---
Pt is presently vented in ICU and unable to participate in CM assessment. Information obtained from EMR, ICU Care team and pt's family. Pt resides at home, has family that assist prn including for transportation. Pt has a w/c and assistive DME (s/p MARLENE) Final disposition unknown at this time: will depend on ability to vent wean and functional abilities. Likely home vs placement. May need transportation. HCP on file and verified w/son. CM to follow.
[2024-03-31] MEDS: Insulin Glargine,Hum.rec.anlog 100 UNIT/ML 10 ML VIAL 30 UNIT SUBCUT (10:35)
[2024-03-31] MEDS: Apixaban 5 MG TABLET PO ×2 (11:20→20:00)
[2024-03-31] MEDS: vancomycin HCL 750 MG in 0.9 % Sodium Chloride 250 ML 265 MG IV ×2 (11:31→23:45)
[2024-03-31 11:52] LABS: Glucose, Whole Blood 230 mg/dL (60-115)
[2024-03-31 12:46] LABS: ~Lactic Acid-LAB USE ONLY 2.4 mmol/L (0.5-2.0)
[2024-03-31 17:50] LABS: Glucose, Whole Blood 186 mg/dL (60-115)
[2024-03-31 20:49] LABS: Anion Gap 20 (12-20); Blood Urea Nitrogen 14 mg/dL (9-16); Calcium 8.6 mg/dL (8.4-10.2); Carbon Dioxide 11 mmol/L (22-29); Chloride 121 mmol/L (96-108); Creatinine Clr Calc Pharmacy 86.8; Estimated Glomerular Filt Rate > 60; Glucose Random 164 mg/dL (60-115); Potassium 5.8 mmol/L (3.3-5.1); Sodium 146 mmol/L (135-145)
[2024-03-31 23:10] LABS: Glucose, Whole Blood 137 mg/dL (60-115)
[2024-04-01] VITALS (31 sets, daily range): BP systolic 96–198; BP diastolic 43–125; PULSE 53–108; RESP 11–24; TEMP 34.7–38.4; O2SAT 91–100; BMI 42.5
[2024-04-01] MEDS: 0.9 % Sodium Chloride Flush 3 ML SYRINGE IVFLUSH ×4 (00:05→23:54)
[2024-04-01 00:34] LABS: Anion Gap 11 (12-20); Blood Urea Nitrogen 13 mg/dL (9-16); Calcium 8.4 mg/dL (8.4-10.2); Carbon Dioxide 25 mmol/L (22-29); Chloride 113 mmol/L (96-108); Creatinine Clr Calc Pharmacy 96.6; Estimated Glomerular Filt Rate > 60; Glucose Random 150 mg/dL (60-115); Potassium 3.1 mmol/L (3.3-5.1); Sodium 146 mmol/L (135-145)
[2024-04-01] MEDS: Potassium Chloride Packet 20 MEQ PACKET 40 MEQ PO ×2 (00:54→08:00)
[2024-04-01] MEDS: propofoL 1,000 MG/100 ML VIAL 17.95 MG IVCONT (01:47)
[2024-04-01] MEDS: Midazolam HCl/PF 2 MG/2 ML VIAL IVPUSH (05:30)
[2024-04-01] MEDS: propofoL 1,000 MG/100 ML VIAL 29.91 MG IVCONT ×2 (05:42→09:04)
[2024-04-01] MEDS: Piperacillin Sodium/Tazobactam 3.375 GM in 0.9 % Sodium Chloride 50 ML IV ×4 (05:43→22:08)
[2024-04-01 06:05] LABS: VBG Base Excess 3.7 mmol/L; VBG HCO3 24 mmol/L (22-26); VBG pCO2 27 mmHg; VBG pH 7.56 (7.32-7.43); VBG pO2 57 mmHg
[2024-04-01 06:07] LABS: MANUAL DIFF FLAG NO
[2024-04-01 06:08] LABS: Venous Blood Gas Refer to POC result
[2024-04-01 06:11] LABS: Basophils Absolute Auto 0.1 X10*3/uL (0.0-0.2); Basophils Percent Auto 0.9 % (0-2); Eosinophils Absolute Auto 0.2 X10*3/uL (0.0-0.4); Eosinophils Percent Auto 1.7 % (0-4); Hematocrit 36.4 % (37.0-47.0); Hemoglobin 11.4 g/dl (12.0-16.0); Imm Gran Abs Auto 0.06 X10*3/uL (0.00-0.03); Imm Gran Pct Auto 0.5 % (0.0-0.4); Lymphocytes Absolute Auto 1.9 X10*3/uL (1.2-4.9); Lymphocytes Percent Auto 17.3 % (20-40); Mean Corpuscular HGB Conc 31.3 g/dl (31.0-35.0); Mean Corpuscular Hemoglobin 28.1 pg (27.0-33.0); Mean Corpuscular Volume 89.9 fL (80.0-98.0); Mean Platelet Volume 10.5 fL (9.4-12.3); Monocytes Absolute Auto 0.6 X10*3/uL (0.1-1.2); Monocytes Percent Auto 5.5 % (2-11); Neutrophils Absolute Auto 8.2 x10*3/uL (2.0-8.3); Neutrophils Percent Auto 74.1 % (45-73); Platelet Count 306 X10*3/uL (160-400); Red Blood Count 4.05 X10*6/uL (4.20-5.50); Red Cell Distribution Width 14.3 % (11.0-16.0); White Blood Count 11.1 X10*3/uL (4.8-10.8)
[2024-04-01 06:13] LABS: Glucose, Whole Blood 122 mg/dL (60-115)
[2024-04-01 06:26] LABS: Alanine Aminotransferase 14 U/L (0-31); Alkaline Phosphatase 75 U/L (39-117); Anion Gap 12 (12-20); Aspartate Amino Transferase 19 U/L (5-31); Bilirubin Total 0.3 mg/dL (0.0-1.0); Blood Urea Nitrogen 13 mg/dL (9-16); Calcium 8.6 mg/dL (8.4-10.2); Carbon Dioxide 22 mmol/L (22-29); Chloride 115 mmol/L (96-108); Creatinine Clr Calc Pharmacy 93.9; Estimated Glomerular Filt Rate > 60; Glucose Random 128 mg/dL (60-115); Magnesium 1.9 mg/dL (1.6-2.6); Phosphorus 1.8 mg/dL (2.7-4.5); Potassium 3.1 mmol/L (3.3-5.1); Sodium 146 mmol/L (135-145); Total Protein 6.2 g/dL (6.5-8.0)
[2024-04-01] MEDS: Apixaban 5 MG TABLET PO ×2 (08:00→21:55)
[2024-04-01] MEDS: Potassium Phosphate/NS 15 MMOL/250 ML PLAST..BAG 62.5 MMOL IV ×2 (08:00→12:01)
[2024-04-01] MEDS: Chlorhexidine Gluc Oral Rinse 15 ML MOUTHWASH BUCCAL (08:00)
[2024-04-01] MEDS: Insulin Glargine,Hum.rec.anlog 100 UNIT/ML 10 ML VIAL 30 UNIT SUBCUT (08:00)
[2024-04-01] MEDS: HYDROmorphone HCl 1 MG/ML SYRINGE IVPUSH (09:27)
[2024-04-01] MEDS: dexmedeTOMIDidine HCL/NS 400 MCG/100 ML INFUS..BTL 24.68 MCG IVCONT (09:28)
[2024-04-01 10:33] LABS: Magnesium 2.1 mg/dL (1.6-2.6)
[2024-04-01 11:08] LABS: Glucose, Whole Blood 101 mg/dL (60-115)
--- NOTE | 2024-04-01 11:22 | PC.RT ---
pt. extubated per MD order. positive cuff leak, patient able to lift head off pillow. Patient able to speak with hoarse voice. placed on 3L, spo2 97%, HR 73, BP 149/81
[2024-04-01] MEDS: vancomycin HCL 1,000 MG in 0.9 % Sodium Chloride 250 ML 270 MG IV ×2 (11:25→22:11)
--- NOTE | 2024-04-01 11:26 | P.PNCC_ITS ---
Subjective Subjective Date of Service: 04/01/24 Interval History: Ventilator support this morning On Levophed for vasopressor support this morning Was on propofol for sedation Critical Care Time (minutes): 45 Physical Exam 2 Vital Signs: Vital Signs: Last Vital Signs Temp 99.4 F 04/01/24 10:00 Pulse 63 04/01/24 11:00 Resp 18 04/01/24 11:00 BP 146/74 H 04/01/24 11:00 Pulse Ox 99 04/01/24 10:00 O2 Del Method Nasal Cannula 04/01/24 11:00 O2 Flow Rate 3 04/01/24 11:00 FiO2 30 04/01/24 10:00 BMI result Body Mass Index 42.5 General: Patient in acute distress, ill appearing and tired appearing Nutritional Appearance: well nourished and overweight Eyes: appearance normal, both eyes and all related structures; Alignment and Position: alignment normal and position normal Neck: No lymphadenopathy, no thyromegaly Resp: bilateral air entry equal, bilateral wheeze heard Cardio: Regular rate, regular rhythm; Heart sounds: S1 normal heart sound present and S2 normal heart sound present GI: soft, nontender, no guarding, no hepatosplenomegaly : bladder normal to inspection, bladder normal to palpation, no renal angle tenderness Skin: no rashes or lesions noted and elasticity normal, erythematous skin with superficial ulcer in the left leg, erythematous BKA area Neuro: Sedated with propofol, moves all extremities, right leg BKA Objective Data Labs 04/01/24 05:59 04/01/24 05:59 Labs: Laboratory Results - last 24 hr 03/31/24 03/31/24 03/31/24 11:23 11:48 17:46 WBC RBC Hgb Hct MCV MCH MCHC RDW Plt Count MPV Immature Gran % (Auto) Neut % (Auto) Lymph % (Auto) [place] % (Auto) Eos % (Auto) Baso % (Auto) Lymph # (Auto) [place] # (Auto) Eos # (Auto) Baso # (Auto) Abs Immat Gran (auto) Absolute Neuts (auto) Absolute Nucleated RBC Nucleated RBC % (auto) VBG pH VBG pCO2 VBG pO2 VBG HCO3 VBG O2 Saturation VBG Base Excess Sodium Potassium Chloride Carbon Dioxide Anion Gap BUN Creatinine Estim Creat Clear Calc Estimated GFR POC Glucose 230 H 186 H Random Glucose Lactic Acid F/U @ 4Hr 2.4 H* Calcium Phosphorus Magnesium Total Bilirubin AST ALT Alkaline Phosphatase Total Protein Albumin Random Vancomycin 03/31/24 03/31/24 04/01/24 19:55 23:06 00:12 WBC RBC Hgb Hct MCV MCH MCHC RDW Plt Count MPV Immature Gran % (Auto) Neut % (Auto) Lymph % (Auto) [place] % (Auto) Eos % (Auto) Baso % (Auto) Lymph # (Auto) [place] # (Auto) Eos # (Auto) Baso # (Auto) Abs Immat Gran (auto) Absolute Neuts (auto) Absolute Nucleated RBC Nucleated RBC % (auto) VBG pH VBG pCO2 VBG pO2 VBG HCO3 VBG O2 Saturation VBG Base Excess Sodium 146 H 146 H Potassium 5.8 H D 3.1 L D Chloride 121 H 113 H Carbon Dioxide 11 L 25 Anion Gap 20 11 L BUN 14 13 Creatinine 0.79 0.71 Estim Creat Clear Calc 86.8 96.6 Estimated GFR > 60 > 60 POC Glucose 137 H Random Glucose 164 H 150 H Lactic Acid F/U @ 4Hr Calcium 8.6 8.4 Phosphorus Magnesium Total Bilirubin AST ALT Alkaline Phosphatase Total Protein Albumin Random Vancomycin 04/01/24 04/01/24 04/01/24 05:55 05:59 06:10 WBC 11.1 H RBC 4.05 L Hgb 11.4 L Hct 36.4 L MCV 89.9 MCH 28.1 MCHC 31.3 RDW 14.3 Plt Count 306 MPV 10.5 Immature Gran % (Auto) 0.5 H Neut % (Auto) 74.1 H Lymph % (Auto) 17.3 L [place] % (Auto) 5.5 Eos % (Auto) 1.7 Baso % (Auto) 0.9 Lymph # (Auto) 1.9 [place] # (Auto) 0.6 Eos # (Auto) 0.2 Baso # (Auto) 0.1 Abs Immat Gran (auto) 0.06 H Absolute Neuts (auto) 8.2 Absolute Nucleated RBC 0.000 Nucleated RBC % (auto) 0.0 VBG pH 7.56 H VBG pCO2 27 VBG pO2 57 VBG HCO3 24 VBG O2 Saturation 90.0 VBG Base Excess 3.7 Sodium 146 H Potassium 3.1 L Chloride 115 H Carbon Dioxide 22 Anion Gap 12 BUN 13 Creatinine 0.73 Estim Creat Clear Calc 93.9 Estimated GFR > 60 POC Glucose 122 H Random Glucose 128 H Lactic Acid F/U @ 4Hr Calcium 8.6 Phosphorus 1.8 L Magnesium 1.9 Total Bilirubin 0.3 AST 19 ALT 14 Alkaline Phosphatase 75 Total Protein 6.2 L Albumin 3.0 L Random Vancomycin 04/01/24 04/01/24 09:55 11:05 WBC RBC Hgb Hct MCV MCH MCHC RDW Plt Count MPV Immature Gran % (Auto) Neut % (Auto) Lymph % (Auto) [place] % (Auto) Eos % (Auto) Baso % (Auto) Lymph # (Auto) [place] # (Auto) Eos # (Auto) Baso # (Auto) Abs Immat Gran (auto) Absolute Neuts (auto) Absolute Nucleated RBC Nucleated RBC % (auto) VBG pH VBG pCO2 VBG pO2 VBG HCO3 VBG O2 Saturation VBG Base Excess Sodium Potassium Chloride Carbon Dioxide Anion Gap BUN Creatinine Estim Creat Clear Calc Estimated GFR POC Glucose 101 Random Glucose Lactic Acid F/U @ 4Hr Calcium Phosphorus Magnesium 2.1 Total Bilirubin AST ALT Alkaline Phosphatase Total Protein Albumin Random Vancomycin 9.0 L Microbiology Microbiology Results: Microbiology 03/30/24 22:40 Urine Catheterized - Straight Catheter Urine Culture - Final Strep agalactiae (Grp B) 03/30/24 22:36 Blood - Venous Blood Culture - Preliminary No growth after 24 hours. 03/30/24 22:36 Blood - Venous Blood Culture - Preliminary No growth after 24 hours. Progress Note: A&P Assessment and plan (1) Acute hypoxic respiratory failure: Status: Acute (2) Overdose: Status: Acute (3) Pneumonia: Status: Acute (4) Cellulitis: Status: Acute (5) Hyperglycemia due to type 2 diabetes mellitus: Status: Acute Plan Neuro: Acute encephalopathy possibly due to metabolic encephalopathy On propofol for sedation, as needed fentanyl for analgesia; we will add Precedex and titrate propofol down to wean from ventilator Close neurological status monitoring in the ICU every hour Cardiac: Shock: Possibly secondary to cardiogenic shock from positive pressure ventilation On Levophed support, titrate Levophed to keep map above 65 mm Hg Respiratory: Acute hypoxemic respiratory failure due to Currently on ventilator support On PRVC mode FiO2[40], PEEP 5, TV 350, RR 20. We will place the patient on pressor support trials and we will wean from ventilator if she does well Peak pressures and plateau pressures are under the curve Ventilator management bundle with head end elevation, aspiration precaution, chlorhexidine mouthwash, daily awakening trials, daily spontaneous breathing trials GI: We will start on tube feeds if we do not extubate her Renal: Hypernatremia: We will do free water pressors if needed We will closely monitor I's and O's Avoid nephrotoxic medications Heme: Chronic anemia, closely monitor H&H, transfuse for hemoglobin less than 7 grams/deciliter Endocrine: Blood sugars under control Sliding scale insulin as needed Infectious disease: On empiric vancomycin and Zosyn for polymicrobial coverage for cellulitis of lower extremities Blood cultures negative so far Musculoskeletal: Decubitus ulcer prevention protocol Lines: Peripheral We will take off Young catheter Prophylaxis: Lovenox, pantoprazole Critical care time spent is about 45 minutes mainly on titrating sedation, weaning ventilator support, ventilator management, setting changes, vasopressor management, close hemodynamic monitoring, postextubation care. Quality Stroke Does the patient have a stroke diagnosis?: No VTE Prior VTE?: No VTE Risk Level:: Medical - moderate - high VTE Device Contraindication: N/A - Device Ordered VTE Drug Contraindication: Treatment Not Indicated
--- NOTE | 2024-04-01 11:53 | MHC.CLN ---
NUTRITION PATIENT INTUBATED AND SEDATED. DISCUSSED AT MD ROUNDS TODAY. MAY EXTUBATE TODAY. IF UNABLE TO EXTUBATE, RECOMMEND START TUBE FEEDING. RECOMMEND PROMOTE AT 20 ML PER HOUR. PROVIDES 30 G PROTEIN (.66 G/KG IBW), 480 CALORIES PLUS 790 FROM [id number] KCALS (27.9 KCALS/KG IBW). MONITOR FOR PLAN OF CARE. SEE CLINICAL NUTRITION ASSESSMENT 04/01/24.
[2024-04-01] MEDS: dexmedeTOMIDidine HCL/NS 400 MCG/100 ML INFUS..BTL 32.08 MCG IVCONT (12:01)
--- NOTE | 2024-04-01 15:56 | MHC.CM.PN ---
PT REMAINS IN ICU, PT WAS SUCCESSFULLY EXTUBATED TODAY ,CURRENTLY ON 3 L 02. CM WILL CONTINUE TO FOLLOW FOR ANY CHANGE TO DC NEEDS/PLAN.
[2024-04-01 16:22] LABS: Glucose, Whole Blood 121 mg/dL (60-115)
[2024-04-01 20:49] LABS: Glucose, Whole Blood 179 mg/dL (60-115)
[2024-04-01] MEDS: Insulin Lispro 100 UNIT/ML 3 ML VIAL SUBCUT (21:54)
[2024-04-01 22:02] LABS: Alanine Aminotransferase 18 U/L (0-31); Albumin Level 3.6 g/dL (3.5-5.0); Alkaline Phosphatase 90 U/L (39-117); Anion Gap 17 (12-20); Aspartate Amino Transferase 23 U/L (5-31); Bilirubin Total 0.5 mg/dL (0.0-1.0); Blood Urea Nitrogen 11 mg/dL (9-16); Calcium 9.2 mg/dL (8.4-10.2); Carbon Dioxide 20 mmol/L (22-29); Chloride 107 mmol/L (96-108); Creatinine Clr Calc Pharmacy 90.2; Estimated Glomerular Filt Rate > 60; Glucose Random 190 mg/dL (60-115); Magnesium 1.8 mg/dL (1.6-2.6); Phosphorus 2.4 mg/dL (2.7-4.5); Potassium 3.4 mmol/L (3.3-5.1); Sodium 141 mmol/L (135-145); Total Protein 7.4 g/dL (6.5-8.0)
[2024-04-02] VITALS (16 sets, daily range): BP systolic 131–199; BP diastolic 69–102; PULSE 75–94; RESP 12–30; TEMP 36.4–37.4; O2SAT 90–98; BMI 41.1
[2024-04-02] MEDS: Piperacillin Sodium/Tazobactam 3.375 GM in 0.9 % Sodium Chloride 50 ML IV ×4 (04:54→22:00)
[2024-04-02 05:47] LABS: MANUAL DIFF FLAG NO
[2024-04-02 05:49] LABS: Basophils Absolute Auto 0.1 X10*3/uL (0.0-0.2); Basophils Percent Auto 0.6 % (0-2); Eosinophils Absolute Auto 0.2 X10*3/uL (0.0-0.4); Eosinophils Percent Auto 1.3 % (0-4); Hematocrit 39.1 % (37.0-47.0); Hemoglobin 12.5 g/dl (12.0-16.0); Imm Gran Abs Auto 0.06 X10*3/uL (0.00-0.03); Imm Gran Pct Auto 0.4 % (0.0-0.4); Lymphocytes Absolute Auto 2.3 X10*3/uL (1.2-4.9); Lymphocytes Percent Auto 16.5 % (20-40); Mean Corpuscular Hemoglobin 28.1 pg (27.0-33.0); Mean Corpuscular Volume 87.9 fL (80.0-98.0); Mean Platelet Volume 10.7 fL (9.4-12.3); Monocytes Absolute Auto 0.7 X10*3/uL (0.1-1.2); Monocytes Percent Auto 4.8 % (2-11); Neutrophils Absolute Auto 10.4 x10*3/uL (2.0-8.3); Neutrophils Percent Auto 76.4 % (45-73); Platelet Count 323 X10*3/uL (160-400); Red Blood Count 4.45 X10*6/uL (4.20-5.50); Red Cell Distribution Width 13.8 % (11.0-16.0); White Blood Count 13.6 X10*3/uL (4.8-10.8)
[2024-04-02 06:05] LABS: Alanine Aminotransferase 17 U/L (0-31); Albumin Level 3.6 g/dL (3.5-5.0); Alkaline Phosphatase 92 U/L (39-117); Anion Gap 18 (12-20); Aspartate Amino Transferase 23 U/L (5-31); Bilirubin Total 0.7 mg/dL (0.0-1.0); Blood Urea Nitrogen 8 mg/dL (9-16); Calcium 9.2 mg/dL (8.4-10.2); Carbon Dioxide 20 mmol/L (22-29); Chloride 102 mmol/L (96-108); Creatinine Clr Calc Pharmacy 97.9; Estimated Glomerular Filt Rate > 60; Glucose Random 199 mg/dL (60-115); Potassium 3.2 mmol/L (3.3-5.1); Sodium 137 mmol/L (135-145); Total Protein 7.5 g/dL (6.5-8.0)
--- NOTE | 2024-04-02 06:15 | PC.NURSE ---
Patient anxious about her Methadone dosage. BP as high at 190's systolic. Provider notified. [facility] called to verify dosage which is Methadone 140 mg daily.
[2024-04-02] MEDS: ondansetron HCL 4 MG/2 ML VIAL IVPUSH (06:41)
[2024-04-02 07:03] LABS: Glucose, Whole Blood 221 mg/dL (60-115)
[2024-04-02] MEDS: Insulin Lispro 100 UNIT/ML 3 ML VIAL SUBCUT ×4 (07:59→21:49)
[2024-04-02] MEDS: Insulin Glargine,Hum.rec.anlog 100 UNIT/ML 10 ML VIAL 30 UNIT SUBCUT (07:59)
--- NOTE | 2024-04-02 08:14 | HE.PHANOTE ---
METHADONE CONFIRMATION FORM RECEIVED TAKE HOME BOTTLES OF 140MG FROM 03/25 TO 03/31.
[2024-04-02] MEDS: methADONE HCl 20 MG/2 ML ORAL.CONC 70 MG PO ×2 (09:50→17:25)
[2024-04-02] MEDS: Apixaban 5 MG TABLET PO ×2 (09:51→21:49)
[2024-04-02] MEDS: 0.9 % Sodium Chloride Flush 3 ML SYRINGE IVFLUSH ×3 (09:51→21:49)
[2024-04-02] MEDS: Sodium,Potassium Phosphates POWD.PACK 2 PACKET PO (09:51)
[2024-04-02] MEDS: Potassium Chloride ER 20 MEQ TAB.ER.PRT 40 MEQ PO (09:51)
[2024-04-02 09:59] LABS: Vancomycin Random 9.7 mcg/mL (15-20)
--- NOTE | 2024-04-02 10:06 | MHC.CLN ---
F/U EXTUBATED 04/01. DIET 04/01=DIABETIC 1800 KCALS. SKIN WITH REDNESS TO BUTTOCKS AND VENOUS STASIS ULCER LEFT CALF. FOLLOW FOR INTAKE AND SKIN INTEGRITY.
--- NOTE | 2024-04-02 11:19 | P.CDIM_ITS ---
PROVIDER RESPONSE TEXT: To clarify, the appropriate diagnosis supported by the clinical indicators: Morbid obesity QUERY TEXT: PHYSICIAN'S DOCUMENTATION REQUEST Date of Query: 04/02/2024 05:23 AM EDT Patient Name: Marilou Siddiqui Admit Date: 03/31/2024 Dear Del Geiger MD, A review of the medical record indicates additional documentation may be needed. Please review below and update the documentation accordingly. Clinical Indicators: Nursing notes Height and Weight: patient is extremely obese with BMI 42.5kg 5ft in height 98.7kg If possible, please provide an associated diagnosis related to the abnormal BMI, such as: Obesity Morbid obesity Other (explain) Clinically unable to determine (explain) Thank you, Jessica Anguiano, CCS, CDIS Use of terms such as suspected, likely, concern for, or probable (associated with a specific diagnosi s that is being evaluated, monitored, or treated as if it exists) are acceptable and can be coded in the inpatient se tting, when documented at the time of discharge. Please use your independent medical judgment in providing your response. THIS QUERY IS PART OF THE PERMANENT MEDICAL RECORD
--- NOTE | 2024-04-02 11:32 | MHC.CM.PN ---
Pt extubated, alert, verbal but now showing w/d symptoms (sweating, nausea, headache/body aches). Methadone to be reinstated: CM to reapproach on 04/03 for finalization of d/c needs once medically stable. Initial plan was for a return to home w/existing CLERICAL GRADER supports: Will need CARE team consult. May need BLS transporation to home.
[2024-04-02 11:42] LABS: Glucose, Whole Blood 195 mg/dL (60-115)
[2024-04-02] MEDS: vancomycin HCL 1,250 MG in 0.9 % Sodium Chloride 250 ML 166.67 MG IV ×2 (11:42→22:49)
--- NOTE | 2024-04-02 12:49 | HO.SUDE ---
Met with pt in 252 after Addiction Medicine consult received for substance use. Pt had presented to the ED with AMS, subsequently received Narcan in the ED with positive effect, however, pt became tachypneic, was getting quickly fatigued from breathing, became minimally resposive and was intubated. Pt had been admitted for overdose, acute hypoxic respiratory failure, pneumonia, cellulitis, and hyperglycemia due to type 2 diabetes.? Pt extubated 04/01. Pt sitting in bed, awake, alert, easily engages in conversation, tearful at times. Pt reports she had been in recovery x 3 years and had a recurrence 1x on day of presentation. Pt reports that day she used heroin/fentanyl, 20 bags, [place]. Pt reports she has been successful with methadone, currently on 140 mg daily through [facility]. Per records, however, pt had +fentanyl UDS on 02/26/24 (did not receive fentanyl while in the hospital at that time). Pts family concerned regarding patient's substance use, believes pt has been using more than only on the day of presentation. Pt voices frustration that family does not believe her. Pt denies other hx opioid overdose. Discussed recovery supports and options, pt is interested in recovery advocate. Not interested in inpatient treatment at this time. Pt provided with t/w contact information if needed. Denies other questions or concerns for t/w. diving coach referral placed.
--- NOTE | 2024-04-02 14:14 | P.PNCC_ITS ---
Subjective Subjective Date of Service: 04/02/24 Interval History: Extubated yesterday, tolerating liberation from ventilator well On oral feeds, tolerating well Asking for pain medications to be restarted Seen by addiction Medicine this morning Critical Care Time (minutes): 35 Physical Exam 2 Vital Signs: Vital Signs: Last Vital Signs Temp 98.5 F 04/02/24 07:56 Pulse 89 04/02/24 11:00 Resp 20 04/02/24 11:00 BP 152/102 H 04/02/24 11:00 Pulse Ox 93 04/02/24 11:00 O2 Del Method Room Air 04/02/24 11:00 O2 Flow Rate 3 04/02/24 10:00 FiO2 30 04/01/24 11:55 BMI result Body Mass Index 41.1 General: Not in acute distress, normal appearing Nutritional Appearance: well nourished and overweight Eyes: appearance normal, both eyes and all related structures; Alignment and Position: alignment normal and position normal Neck: No lymphadenopathy, no thyromegaly Resp: bilateral air entry equal, occasional added sounds present in bilateral lungs mostly expiratory rhonchi Cardio: Regular rate, regular rhythm; Heart sounds: S1 normal heart sound present and S2 normal heart sound present GI: soft, nontender, no guarding, no hepatosplenomegaly : bladder normal to inspection, bladder normal to palpation, no renal angle tenderness Skin: no rashes or lesions noted and elasticity normal, less erythema in the legs, right leg BKA Neuro: oriented to person, oriented to place, oriented to time and moves all extremities Objective Data Labs 04/02/24 05:22 04/02/24 05:22 Labs: Laboratory Results - last 24 hr 04/01/24 04/01/24 04/01/24 16:16 20:45 21:40 WBC RBC Hgb Hct MCV MCH MCHC RDW Plt Count MPV Immature Gran % (Auto) Neut % (Auto) Lymph % (Auto) [place] % (Auto) Eos % (Auto) Baso % (Auto) Lymph # (Auto) [place] # (Auto) Eos # (Auto) Baso # (Auto) Abs Immat Gran (auto) Absolute Neuts (auto) Absolute Nucleated RBC Nucleated RBC % (auto) Sodium 141 Potassium 3.4 Chloride 107 Carbon Dioxide 20 L Anion Gap 17 BUN 11 Creatinine 0.76 Estim Creat Clear Calc 90.2 Estimated GFR > 60 POC Glucose 121 H 179 H Random Glucose 190 H Calcium 9.2 D Phosphorus 2.4 L Magnesium 1.8 Total Bilirubin 0.5 AST 23 ALT 18 Alkaline Phosphatase 90 Total Protein 7.4 Albumin 3.6 Random Vancomycin 04/02/24 04/02/24 04/02/24 05:22 06:58 09:07 WBC 13.6 H RBC 4.45 Hgb 12.5 Hct 39.1 MCV 87.9 MCH 28.1 MCHC 32.0 RDW 13.8 Plt Count 323 MPV 10.7 Immature Gran % (Auto) 0.4 Neut % (Auto) 76.4 H Lymph % (Auto) 16.5 L [place] % (Auto) 4.8 Eos % (Auto) 1.3 Baso % (Auto) 0.6 Lymph # (Auto) 2.3 [place] # (Auto) 0.7 Eos # (Auto) 0.2 Baso # (Auto) 0.1 Abs Immat Gran (auto) 0.06 H Absolute Neuts (auto) 10.4 H Absolute Nucleated RBC 0.000 Nucleated RBC % (auto) 0.0 Sodium 137 Potassium 3.2 L Chloride 102 Carbon Dioxide 20 L Anion Gap 18 BUN 8 L Creatinine 0.70 Estim Creat Clear Calc 97.9 Estimated GFR > 60 POC Glucose 221 H Random Glucose 199 H Calcium 9.2 Phosphorus Magnesium Total Bilirubin 0.7 AST 23 ALT 17 Alkaline Phosphatase 92 Total Protein 7.5 Albumin 3.6 Random Vancomycin 9.7 L 04/02/24 11:38 WBC RBC Hgb Hct MCV MCH MCHC RDW Plt Count MPV Immature Gran % (Auto) Neut % (Auto) Lymph % (Auto) [place] % (Auto) Eos % (Auto) Baso % (Auto) Lymph # (Auto) [place] # (Auto) Eos # (Auto) Baso # (Auto) Abs Immat Gran (auto) Absolute Neuts (auto) Absolute Nucleated RBC Nucleated RBC % (auto) Sodium Potassium Chloride Carbon Dioxide Anion Gap BUN Creatinine Estim Creat Clear Calc Estimated GFR POC Glucose 195 H Random Glucose Calcium Phosphorus Magnesium Total Bilirubin AST ALT Alkaline Phosphatase Total Protein Albumin Random Vancomycin Microbiology Microbiology Results: Microbiology 03/30/24 22:36 Blood - Venous Blood Culture - Preliminary No growth after 48 hours. 03/30/24 22:36 Blood - Venous Blood Culture - Preliminary No growth after 48 hours. 03/30/24 22:40 Urine Catheterized - Straight Catheter Urine Culture - Final Strep agalactiae (Grp B) Progress Note: A&P Assessment and plan (1) Acute hypoxic respiratory failure: Status: Acute (2) Pneumonia: Status: Acute (3) Cellulitis: Status: Acute (4) Hyperglycemia due to type 2 diabetes mellitus: Status: Acute (5) Chronic respiratory failure: Status: Acute Plan Neuro: Acute encephalopathy possibly due to drug overdose UDS positive for fentanyl, methadone, benzos and marijuana upon admission Mental status significantly improved Her home dose of methadone is 140 mg per day, as the methadone was stopped for over 48 hours we restarted it at 70 mg per day today, dose to be increased from tomorrow. Cardiac: Shock: Secondary to positive pressure ventilation, resolved currently blood pressure stable Respiratory: Acute hypoxemic respiratory failure due to aspiration pneumonia Extubated yesterday, tolerating liberation from ventilator very well GI: On oral feeds Renal: We will closely monitor I's and O's Avoid nephrotoxic medications Heme: Chronic anemia, closely monitor H&H, transfuse for hemoglobin less than 7 grams/deciliter Endocrine: Blood sugars under control Sliding scale insulin as needed Infectious disease: On empiric vancomycin and Zosyn for polymicrobial coverage for cellulitis of lower extremities, today is day 3. However her tiredness of swelling of the cellulitis has significantly improved, can switch to oral linezolid or doxycycline tomorrow. Blood cultures negative so far Musculoskeletal: Decubitus ulcer prevention protocol Lines: Peripheral Prophylaxis: Lovenox, pantoprazole Quality Stroke Does the patient have a stroke diagnosis?: No VTE Prior VTE?: No VTE Risk Level:: Medical - moderate - high VTE Device Contraindication: N/A - Device Ordered VTE Drug Contraindication: Treatment Not Indicated
--- NOTE | 2024-04-02 16:35 | HO.WOUND ---
Wound Consult: Initial 53yr old?female admitted to [facility] on 03/31/24 - See progress notes and H&P for detailed history.? Wound consult placed for LLE.? Patient agreeable to assessment and photo documentation.? Left Lower Leg Etiology: Venous Dermatitis / Wound Measurements: 4cm x 4cm x 0.1cm Wound Bed: dry yellow slough to wound bed Drainage / Odor: Dried and crusted Edges: ? well defined appears to have been fluid related Meme wound: Venous dermatitis - dry flaking tissue - evidence of previous swelling ? No Induration, Fluctuance or Warmth noted Pain: pain reported Goals of Treatment: ? moist wound healing and lower leg elevation Right Amp site -with dry stable scab - Diabetic wound - do not cover - no topical interventions needed at this time. Recommendations: 1. Turn and Reposition every 2 hours and as needed for patient comfort.? Use pillows or wedges to support off loading positions. 2. Off Load all bony prominences with use of pillows and heel boots if needed.? Apply Preventative foams where needed. ? 3. Monitor for incontinence and moisture control, use barrier creams when needed for prevention and treatment. 4. Provide adequate and supplemental nutrition.? 5. Order or Continue low air loss mattress. 6. When applicable maintain blood glucose levels per Providers order. 7. Left Lower Leg - Bilateral Lower Legs - Elevate lower legs off of surface of bed with use of pillows.? Cleanse with NS, Pat dry.? Apply vaseline to both legs, apply layer of Xeroform to open wound beds secure with ABD pad, gauze wrap and tape.? Change Daily. Re-consult wound care Nurse for wound deterioration or wound changes.
[2024-04-02 17:07] LABS: Glucose, Whole Blood 291 mg/dL (60-115)
[2024-04-02 20:40] LABS: Glucose, Whole Blood 215 mg/dL (60-115)
[2024-04-02] MEDS: Acetaminophen 325 MG TABLET 650 MG PO (22:02)
[2024-04-03 04:00] VITALS: BP 124/94; PULSE 73; RESP 20; TEMP 36.6; O2SAT 92
[2024-04-03] MEDS: Piperacillin Sodium/Tazobactam 3.375 GM in 0.9 % Sodium Chloride 50 ML IV ×2 (05:15→11:49)
[2024-04-03 06:33] LABS: Creatinine Clr Calc Pharmacy 90.9; Estimated Glomerular Filt Rate > 60
[2024-04-03 07:35] VITALS: BP 142/63; PULSE 70; RESP 20; TEMP 36.4; O2SAT 96
[2024-04-03 07:56] LABS: Glucose, Whole Blood 214 mg/dL (60-115)
[2024-04-03] MEDS: Insulin Glargine,Hum.rec.anlog 100 UNIT/ML 10 ML VIAL 30 UNIT SUBCUT (08:09)
[2024-04-03] MEDS: Insulin Lispro 100 UNIT/ML 3 ML VIAL SUBCUT ×4 (08:10→20:52)
[2024-04-03] MEDS: 0.9 % Sodium Chloride Flush 3 ML SYRINGE IVFLUSH ×3 (08:11→20:27)
[2024-04-03] MEDS: Apixaban 5 MG TABLET PO ×2 (08:11→20:26)
[2024-04-03] MEDS: methADONE HCl 20 MG/2 ML ORAL.CONC 140 MG PO (08:16)
--- NOTE | 2024-04-03 09:29 | HE.PHANOTE ---
Addendum entered by Ilan Tapia [facility] 04/03/24 09:32: Predicted AUC is 550, and predicted trough is 15.8. Original Note: Re: Vanco Decline in renal function. Trough returned at 15.0. Continue current dose of 1250 q12h. Trough to be drawn 04/04 at 2100.
[2024-04-03 10:51] LABS: MRSA Nasal PCR NEGATIVE (Negative); SA Nasal PCR POSITIVE (Negative)
[2024-04-03 11:11] LABS: Glucose, Whole Blood 280 mg/dL (60-115)
[2024-04-03 11:44] VITALS: BP 137/89; PULSE 75; RESP 14; TEMP 36.4; O2SAT 92
[2024-04-03] MEDS: Gabapentin 600 MG TABLET PO ×3 (12:16→20:26)
[2024-04-03] MEDS: DULoxetine HCl 30 MG CAPSULE.DR PO (12:16)
[2024-04-03] MEDS: vancomycin HCL 1,250 MG in 0.9 % Sodium Chloride 250 ML 166.67 MG IV (12:17)
--- NOTE | 2024-04-03 13:11 | MHC.CM.PN ---
EMR reviewed and per MD rounds, pt is not medically cleared for discharge today. This CM met with pt to discuss discharge plans, pt intermittently tearful when talking about her situation. 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 Pt would like a VNA to help her if possible, referrals placed in [facility]. This CM discussed STR, and pt states she had gone to [facility] after her amputation and she would not be willing to go there again, but would be open to a referral to be placed to [facility]. Pt states her son-in-law is coming in tonight and she feels she will have a better idea about where she stands with her family support and where she will discharge to after that.
--- NOTE | 2024-04-03 14:51 | HO.PM.IMPN ---
Subjective Subjective Date of Service: 04/03/24 Interval History: Transferred from ICU is status post extubation on 04/01 admitted for unresponsiveness/acute toxic metabolic encephalopathy due to drug overdose on heroin. Patient admitted on using heroin, is very upset about it, she was under lot of stress due to recent passing of her and multiple other stresses, spoke with recovery team and agreeable to follow-up with community living coach, requesting for home medications , complaining of generalized body ache, no fevers, no chills tolerating diet with no nausea, no vomiting, no abdominal pain, no left leg pain, Mild cough, no shortness a breath. Review of Systems All other system reviewed and are negative. Physical Exam Vital Signs: Vital Signs: Last Vital Signs Temp 97.5 F 04/03/24 11:44 Pulse 75 04/03/24 11:44 Resp 14 04/03/24 11:44 BP 137/89 04/03/24 11:44 Pulse Ox 92 04/03/24 11:44 O2 Del Method Room Air 04/03/24 11:44 O2 Flow Rate 3 04/02/24 10:00 FiO2 30 04/01/24 11:55 BMI result Body Mass Index 41.1 Const: Other: General awake alert x3, in no acute distress. Anicteric sclera Neck no JVD. CVS regular rate rhythm, Respiratory lungs clear to auscultation, no respiratory distress, no wheeze, no rhonchi. Gastrointestinal abdomen soft, non tender, bowel sounds audible, no guarding , no rigidity. Extremities rt bka, left lower extremity mild erythema, non pitting edema Neuro non focal Appropriate affect Objective Data Active Medications Acetaminophen (Acetaminophen 325 Mg Tablet) 650 mg PO Q4H PRN PRN Reason: Pain, Mild (Pain Scale 1-3) Last Admin: 04/02/24 22:02 Dose: 650 mg Documented By: ARIN Albuterol Sulfate (Albuterol Sulfate (0.083%) 2.5 Mg/3 Ml Vial.Neb) 2.5 mg INHALE Q4H PRN PRN Reason: Wheezing Apixaban (Apixaban 5 Mg Tablet) 5 mg PO BID [facility] Last Admin: 04/03/24 08:11 Dose: 5 mg Documented By: MELLISSA Atorvastatin Calcium (Atorvastatin Calcium 80 Mg Tablet) 80 mg PO DAILY [facility] Baclofen (Baclofen 10 Mg Tablet) 10 mg PO TID [facility] Clonazepam (Clonazepam 0.125 Mg Tab.Rapdis) 0.25 mg PO TID [facility] Last Admin: 04/03/24 08:24 Dose: 0.25 mg Documented By: MELLISSA Duloxetine HCl (Duloxetine Hcl 30 Mg Capsule.Dr) 30 mg PO DAILY [facility] Last Admin: 04/03/24 12:16 Dose: 30 mg Documented By: MELLISSA Empagliflozin (Empagliflozin 25 Mg Tablet) 25 mg PO DAILY [facility] Gabapentin (Gabapentin 600 Mg Tablet) 600 mg PO QID [facility] Last Admin: 04/03/24 12:16 Dose: 600 mg Documented By: MELLISSA Glucose (Glucose Gel 15 Gm Gel..Gram.) 15 gm PO Q15M PRN; Protocol PRN Reason: per Hypoglycemia Standing Ord. Dextrose (D10) 250 mls @ 750 mls/hr IV Q15M PRN; Protocol PRN Reason: per Hypoglycemia Standing Ord. Piperacillin Sod/Tazobactam (Sod 3.375 gm/ Sodium Chloride) 50 mls @ 100 mls/hr IV Q6H [facility] Last Infusion: 04/03/24 12:25 Dose: Infused Documented By: MELLISSA Vancomycin HCl 1,250 mg/ (Sodium Chloride) 250 mls @ 166.667 mls/hr IV Q12H [facility] Last Infusion: 04/03/24 14:16 Dose: Infused Documented By: MELLISSA Insulin Glargine (Insulin Glargine,Hum.Rec.Anlog 100 Unit/Ml 10 Ml Vial) 30 unit SUBCUT DAILY [facility] Last Admin: 04/03/24 08:09 Dose: 30 unit Documented By: MELLISSA Insulin Human Lispro (Insulin Lispro 100 Unit/Ml 3 Ml Vial) 0 unit SUBCUT QIDACHS [facility]; Protocol Last Admin: 04/03/24 11:55 Dose: 6 unit Documented By: MELLISSA Methadone HCl (Methadone Hcl 20 Mg/2 Ml Oral.Conc) 140 mg PO DAILY [facility] Last Admin: 04/03/24 08:16 Dose: 140 mg Documented By: MELLISSA Co-signed By: SYDNEE Pharmacy Consult (Consult Rx Vancomycin Dosing) 1 each MISCELLANE DAILY PRN PRN Reason: Consult order Sodium Chloride (0.9 % Sodium Chloride Flush 3 Ml Syringe) 3 ml IVFLUSH QSHIFT DADA Last Admin: 04/03/24 08:11 Dose: 3 ml Documented By: MELLISSA Tramadol HCl (Tramadol Hcl 50 Mg Tablet) 50 mg PO Q4H PRN PRN Reason: Pain, Moderate(Pain Scale 4-6) Labs 04/02/24 05:22 04/03/24 05:42 Labs: Laboratory Results - last 24 hr 04/02/24 04/02/24 04/03/24 17:04 19:55 05:42 Hold Purple Top SEE NOTE Estim Creat Clear Calc 90.9 Estimated GFR > 60 POC Glucose 291 H 215 H Nasal Screen MRSA (PCR) Nasal S. aureus Screen Nasal MRSA/S.aureus Interp Random Vancomycin 04/03/24 04/03/24 04/03/24 07:40 08:51 09:05 Hold Purple Top Estim Creat Clear Calc Estimated GFR POC Glucose 214 H Nasal Screen MRSA (PCR) NEGATIVE Nasal S. aureus Screen POSITIVE A Nasal MRSA/S.aureus Interp SEE NOTE Random Vancomycin 15.0 04/03/24 11:07 Hold Purple Top Estim Creat Clear Calc Estimated GFR POC Glucose 280 H Nasal Screen MRSA (PCR) Nasal S. aureus Screen Nasal MRSA/S.aureus Interp Random Vancomycin Assessment and Plan (1) Overdose: Status: Acute (2) Acute hypoxic respiratory failure: Status: Acute (3) Pneumonia: Status: Acute (4) Cellulitis: Status: Acute Plan Admitted to ICU for altered mental status, noted to be unresponsive in ED, with respiratory 13 ,urine drug screen was positive for methadone, fentanyl, benzos and marijuana, patient treated with IV Narcan woke up immediately but oxygenation fell to 70s she became minimally responsive and was intubated, required vasopressor, propofol for sedation, as needed fentanyl for analgesia, subsequently extubated on 04/01 and transferred to intermediate care unit on 04/02. Acute hypoxic respiratory failure due to drug overdose/aspiration pneumonia Denies shortness of breath, complaining of intermittent cough. Status post extubation stable oxygenation on room air In regard to pneumonia on IV vanco and Zosyn started on 03/31, since no fevers no shortness a breath will transition to by mouth antibiotic Augmentin 04/03, to finish a 5 day course of antibiotics. Cough medicine as needed. Acute toxic metabolic encephalopathy resolved, was likely due to drug overdose Opiate use disorder: continue methadone home dose, as per patient she relapsed and use heroin due to multiple setbacks Seen by Addiction Team and wishes to have community living coach upon discharge. Diabetes mellitus will resume Jardiance, hold metformin, continue Lantus insulin and insulin sliding scale. Elevated blood sugars will adjust insulin sliding scale. Mild acute hypokalemia will replete and follow labs Hyperlipidemia continue statin. History of bilateral PE continue Eliquis. Mood disorder continue home medications, hold Xanax since receiving Klonopin, will resume Xanax upon discharge. Left Lower extremity cellulitis , transition to by mouth Augmentin 875mg bid Morbid obesity low-calorie diet recommended. Lovenox Full code In my clinical judgment patient need continued inpatient hospitalization for monitoring of respiratory status, treatment for pneumonia and safe disposition. Quality Stroke Does the patient have a stroke diagnosis?: No VTE Prior VTE?: No VTE Risk Level:: Medical - moderate - high VTE Device Contraindication: N/A - Device Ordered VTE Drug Contraindication: Treatment Not Indicated
[2024-04-03 15:33] VITALS: BP 130/79; PULSE 79; RESP 14; TEMP 36.6; O2SAT 94
[2024-04-03] MEDS: Amoxicillin/Potassium Clav 875 MG TABLET PO (15:44)
[2024-04-03] MEDS: Potassium Chloride ER 20 MEQ TAB.ER.PRT 40 MEQ PO (15:44)
[2024-04-03] MEDS: Baclofen 10 MG TABLET PO ×2 (15:44→20:26)
[2024-04-03 16:42] LABS: Glucose, Whole Blood 285 mg/dL (60-115)
--- NOTE | 2024-04-03 18:37 | MHC.RECOVSUP ---
? Reason for consult Recovery Support o Current location: [facility] o Identified substance use concern: Heroin - Support ? Intervention: o Community resources provided o Harm reduction discussion ? Plan: o Patient to follow up with [facility] after discharge ? Additional information: Met with patient and we talked about recovery and the different pathway,, We talked about harm reduction and [facility]. Patient stated that she would like to try [facility]
[2024-04-03 19:05] VITALS: BP 162/80; PULSE 81; RESP 16; TEMP 36.3; O2SAT 91
[2024-04-03 20:50] LABS: Glucose, Whole Blood 273 mg/dL (60-115)
[2024-04-04] VITALS: BP 153/70; PULSE 79; RESP 18; TEMP 36.2; O2SAT 95
[2024-04-04] MEDS: Amoxicillin/Potassium Clav 875 MG TABLET PO ×2 (03:37→15:44)
[2024-04-04 04:00] VITALS: BP 139/68; PULSE 75; RESP 16; TEMP 36.8; O2SAT 93
[2024-04-04 06:14] LABS: Hematocrit 39.1 % (37.0-47.0); Hemoglobin 12.5 g/dl (12.0-16.0); Mean Corpuscular Hemoglobin 28.4 pg (27.0-33.0); Mean Corpuscular Volume 88.9 fL (80.0-98.0); Mean Platelet Volume 10.2 fL (9.4-12.3); Platelet Count 373 X10*3/uL (160-400); Red Cell Distribution Width 13.7 % (11.0-16.0); White Blood Count 12.5 X10*3/uL (4.8-10.8)
[2024-04-04 06:30] LABS: Anion Gap 14 (12-20); Blood Urea Nitrogen 19 mg/dL (9-16); Carbon Dioxide 24 mmol/L (22-29); Chloride 102 mmol/L (96-108); Creatinine Clr Calc Pharmacy 92.1; Estimated Glomerular Filt Rate > 60; Glucose Random 235 mg/dL (60-115); Potassium 3.9 mmol/L (3.3-5.1); Sodium 136 mmol/L (135-145)
[2024-04-04 07:11] LABS: Glucose, Whole Blood 241 mg/dL (60-115)
[2024-04-04 07:34] VITALS: BP 139/67; PULSE 71; RESP 14; TEMP 36.4; O2SAT 93
[2024-04-04] MEDS: Insulin Glargine,Hum.rec.anlog 100 UNIT/ML 10 ML VIAL 30 UNIT SUBCUT (07:53)
[2024-04-04] MEDS: 0.9 % Sodium Chloride Flush 3 ML SYRINGE IVFLUSH (07:53)
[2024-04-04] MEDS: Insulin Lispro 100 UNIT/ML 3 ML VIAL SUBCUT ×3 (07:53→16:37)
[2024-04-04] MEDS: methADONE HCl 20 MG/2 ML ORAL.CONC 140 MG PO (08:13)
[2024-04-04] MEDS: Atorvastatin Calcium 80 MG TABLET PO (08:15)
[2024-04-04] MEDS: Baclofen 10 MG TABLET PO ×2 (08:15→15:44)
[2024-04-04] MEDS: DULoxetine HCl 30 MG CAPSULE.DR PO (08:15)
[2024-04-04] MEDS: Gabapentin 600 MG TABLET PO ×3 (08:15→16:37)
[2024-04-04] MEDS: Empagliflozin 25 MG TABLET PO (08:15)
[2024-04-04] MEDS: Apixaban 5 MG TABLET PO (08:15)
--- NOTE | 2024-04-04 11:11 | PM.DS ---
DS: Providers Provider Date of Service: 04/04/24 Date of admission: 03/31/24 00:58 Date of discharge: 04/04/24 Primary care physician: Nikhil Potts MD Consults: 03/31/24 02:57 Addiction Medicine Stat Consulting Provider: Addiction Covering Reason for consultation: overdose 03/31/24 03:07 Consult to Wound Care Routine Reason for consultation: Open wound to LLE Has provider been notified: No 04/01/24 12:16 Addiction Medicine Routine Consulting Provider: Addiction Covering Reason for consultation: multiple admissions for multiple drug abuse Has provider been notified: No Attending physician on discharge: Oscar Liz Discharging clinician: Shaina Burt DS: Diagnosis Discharge Diagnosis (1) Overdose: Status: Acute (2) Acute hypoxic respiratory failure: Status: Acute (3) Pneumonia: Status: Acute (4) Cellulitis: Status: Acute DS: Summary Hospital Course Hospital Course: From H&P on the day of admission Ms. Siddiqui is a 53-year-old female with history of peripheral artery disease, insulin-dependent type 2 diabetes, osteomyelitis s/p right BKA, NSTEMI, polysubstance use disorder, IVDU, bilateral pulmonary embolism on lifelong anticoagulation with Eliquis, MRSA bacteremia, and chronic opiate dependence on methadone who presented to emergency department via EMS for altered mental status. Her son reported that she had been complaining of pain and that her legs appeared more red over the last few days.?EMS reported an O2 sat in the low 80?s and gave her a nebulizer treatment en route.? On arrival to the ER, the patient was unresponsive. Her BP was 127/77, heart rate 86, respiratory rate 13, O2 sat 90% on room air. She was afebrile with temp 98.5 F. Laboratory data significant for WBC 13.0, lactic acid 2.4.? BUN 20 which appears to be her baseline. Glucose 299. VBG 7.34/54/55/29. UA negative for UTI.? Urine drug screen positive for methadone, fentanyl, benzodiazepines, marijuana. Imaging: Chest CT negative for PE, Diffuse bilateral multifocal pneumonia. ED course: The patient was given 0.5 mg IV Narcan and woke up immediately but O2 sats fell onto the70s, she became minimally responsive and was intubated.? She was given a total of 6 mg Ativan and started on a propofol drip. In addition she received 2 L normal saline, vancomycin 2 g, Zosyn 3.375 g Admitted to ICU for altered mental status, noted to be unresponsive in ED, urine drug screen was positive for methadone, fentanyl, benzos and marijuana, patient treated with IV Narcan woke up immediately but oxygenation fell to 70s she became minimally responsive and was intubated, required vasopressor, propofol for sedation, as needed fentanyl for analgesia, subsequently extubated on 04/01 and transferred to intermediate care unit on 04/02. Acute hypoxic respiratory failure due to drug overdose/aspiration pneumonia The off of supplemental oxygen and stable oxygenation on room air In regard to pneumonia on IV vanco and Zosyn started on 03/31, since no fevers no shortness a breath will transition to by mouth antibiotic Augmentin 04/03, to finish a 5 day course of antibiotics. Acute toxic metabolic encephalopathy resolved, was likely due to drug overdose. resolved Opiate use disorder: continue methadone home dose, as per patient she relapsed and use heroin due to multiple setbacks Seen by Addiction Team and wishes to have manager of disaster recovery upon discharge- follow up with [facility] Diabetes mellitus -resume previous regimen upon discharge Mild acute hypokalemia. Resolved Hyperlipidemia continue statin. History of bilateral PE continue Eliquis. Mood disorder continue home medications, hold Xanax since receiving Klonopin, will resume Xanax upon discharge. Left Lower extremity cellulitis , transition to by mouth Augmentin 875mg bid. seen by wound care nurse. Cleanse with NS, Pat dry.? Apply vaseline to both legs, apply layer of Xeroform to open wound beds secure with ABD pad, gauze wrap and tape.? Change Daily. Family, pt and patient service coordinator to assist with wound care urine culture growing group b strep only 50-100,000. no urinary symptoms. will be covered with abx for above Time Attestation Discharge Coordination Time (in mins): 36 Quality: Safe Use of Opioids Does Pt have an Active Cancer Diagnosis on the Problem List?: No Quality: Stroke Does the patient have a stroke diagnosis?: No Physical Exam Vital Signs: Vital Signs: Last Vital Signs Temp 97.5 F 04/04/24 07:34 Pulse 71 04/04/24 07:34 Resp 14 04/04/24 07:34 BP 139/67 04/04/24 07:34 Pulse Ox 93 04/04/24 07:34 O2 Del Method Room Air 04/04/24 07:34 O2 Flow Rate 3 04/02/24 10:00 FiO2 30 04/01/24 11:55 BMI result Body Mass Index 41.1 Const: General: comfortable, no acute distress, alert and awake Nutritional Appearance: average body habitus Orientation/consciousness: patient oriented x3 Resp: Effort & Inspection: normal respiratory effort, able to speak in complete sentences, no respiratory distress and no use of accessory muscles Cardio: Rate: regular rate GI: Inspection: No distended Palpation (GI): nontender Skin: Other: RLE BKA; LLE dressing c/d/i Neuro: General: patient oriented x3 DS: Data Data Completed and Pending Completed studies during hospitalization [Text1]: Procedures Detachment at Right 1st Toe, Mid, Open Approach (09/21/21) Detachment at Right 2nd Toe, Mid, Open Approach (09/21/21) Excision of Right Foot Subcutaneous Tissue and Fascia, Open Approach (09/21/21) Excision of Right Lower Leg Skin, External Approach (04/24/23) Insertion of Infusion Device into Left External Jugular Vein, Percutaneous Approach (09/21/21) Insertion of Infusion Device into Superior Vena Cava, Percutaneous Approach (09/21/21) Labs on day of discharge: Laboratory Results - last 24 hr 04/03/24 04/03/24 04/03/24 11:07 16:36 20:41 WBC RBC Hgb Hct MCV MCH MCHC RDW Plt Count MPV Absolute Nucleated RBC Nucleated RBC % (auto) Sodium Potassium Chloride Carbon Dioxide Anion Gap BUN Creatinine Estim Creat Clear Calc Estimated GFR POC Glucose 280 H 285 H 273 H Random Glucose Calcium 04/04/24 04/04/24 05:45 07:05 WBC 12.5 H RBC 4.40 Hgb 12.5 Hct 39.1 MCV 88.9 MCH 28.4 MCHC 32.0 RDW 13.7 Plt Count 373 MPV 10.2 Absolute Nucleated RBC 0.000 Nucleated RBC % (auto) 0.0 Sodium 136 Potassium 3.9 D Chloride 102 Carbon Dioxide 24 Anion Gap 14 BUN 19 H Creatinine 0.73 Estim Creat Clear Calc 92.1 Estimated GFR > 60 POC Glucose 241 H Random Glucose 235 H Calcium 9.0 Preliminary micro results at discharge 03/30/24 22:36 Blood Culture - Preliminary Blood - Venous No growth after 48 hours. 03/30/24 22:36 Blood Culture - Preliminary Blood - Venous No growth after 48 hours. Discharge Plan Discharge Anticipated Discharge Date/Time: 04/04/24 17:00 Patient Disposition: Home Health Service Discharge Diagnosis: acute respiratory failure with hypoxia Aspiration pneumonia Left lower extremity cellulitis Referrals: [facility] [Other] - 1 Week Nikhil Gagnon MD [Primary Care Provider] - 1 Week Discharge Medications: New amoxicillin-pot clavulanate 875-125 mg Tablet 1 tab PO Q12H 3 Days Qty: 6 0RF Continued Eliquis 5 mg tablet 5 mg PO BID 30 Days Qty: 60 0RF metformin 500 mg tablet 1,000 mg PO BIDWM gabapentin 600 mg tablet 600 mg PO QID insulin lispro 100 unit/mL insulin pen 1 sliding scale dose subcut TIDAC Jardiance 25 mg tablet 25 mg PO DAILY insulin glargine [Lantus Solostar U-100 Insulin] 100 unit/mL (3 mL) insulin pen 35 unit subcut BEDTIME baclofen 10 mg tablet 10 mg PO TID atorvastatin 80 mg tablet 80 mg PO DAILY duloxetine 30 mg capsule,delayed release(DR/EC) 30 mg PO DAILY methadone [Methadone Intensol] 10 mg/mL Concentrate 140 mg PO DAILY alprazolam 0.5 mg tablet 0.5 mg PO BEDTIME PRN (Reason: Anxiety) Qty: 10 0RF No Action (DME) walker Misc See Rx Instructions .Route Qty: 1 0RF Rx Instructions: As directed Discharge Orders: Discharge Order (Routine); Ordered 04/04/24 Ordered By: Shaina Burt Activity on Discharge: As tolerated Stand Alone Forms: Patient Portal Discharge page Print Language: Chadian Care Plan Goals: see below Health Concerns: Acute respiratory failure with hypoxia Aspiration pneumonia Left lower extremity cellulitis/chronic wound Plan of Treatment: Complete course of antibiotics as prescribed VNA to assist with wound care: Cleanse with NS, Pat dry.? Apply vaseline to both legs, apply layer of Xeroform to open wound beds secure with ABD pad, gauze wrap and tape.? outpatient follow up with [facility] Assessment: see discharge summary Patient Instructions: Amoxicillin/Clavulanate Potassium (By mouth)
[2024-04-04 11:14] LABS: Glucose, Whole Blood 204 mg/dL (60-115)
--- NOTE | 2024-04-04 11:27 | W.MHC.F2F ---
Service Date Service Date: 04/04/24 Encounter Date of encounter: 04/04/24 Reasons for Services Signs and symptoms assessed: needs nursing home to assist with wound care and diabetic teaching/monitoring of blood sugar Reason for nursing home: wound care and diabetic teaching MD Overseeing Care: Nikhil Potts Homebound: Leaving the home is medically contraindicated at this time without the asist of a device and/or another person due th the listed conditions above and below. Reason homebound: weakness related to hospital stay Certification: Based on the above findings, I certify that this patient is confined to the home and needs intermittent nursing home care, physical therapy and/or speech therapy, or continues to need occupational therapy. The patient is under my care, and I have initiated the establishment of the plan of care. The patient will be followed by a physician who will periodically review the plan of care. Time Spent With Patient Time: Total time managing care of this patient today ____ minutes.
[2024-04-04 11:33] VITALS: BP 153/82; PULSE 76; RESP 12; TEMP 36.1; O2SAT 92
--- NOTE | 2024-04-04 13:38 | MHC.CM.PN ---
Pt is medically cleared for discharge home with resumption of previous [employer] services and new VNA services through [facility]. Pt will transport home via [facility] at 5pm.
[2024-04-04 15:57] VITALS: BP 123/62; PULSE 82; RESP 14; TEMP 36.8; O2SAT 93
[2024-04-04 16:25] LABS: Glucose, Whole Blood 199 mg/dL (60-115)
== END 2024-04-04 17:53 | disposition home health service (06) | DRG 812 ==
LOC: HO.ED 03-31 01:01 → HO.EDOVER 03-31 01:05 → HO.ICU 03-31 01:32 → HO.IMC 04-02 16:07
PROVIDERS: Hospitalist; Internal Medicine Critical Care Medicine; Internal Medicine Pulmonary Disease; Physician Assistant Medical; Admitting Provider Nurse Practitioner Family; Emergency Provider Emergency Medicine; PCP Internal Medicine; Visit Provider Physician Assistant Medical
DX: T50.911A Poisoning by multiple unspecified drugs, medicaments and biological substances, accidental (unintentional), initial encounter (principal); J96.01 Acute respiratory failure with hypoxia; R57.0 Cardiogenic shock; J69.0 Pneumonitis due to inhalation of food and vomit; G92.8 Other toxic encephalopathy; E11.65 Type 2 diabetes mellitus with hyperglycemia; D64.9 Anemia, unspecified; E87.0 Hyperosmolality and hypernatremia; F11.20 Opioid dependence, uncomplicated; E78.5 Hyperlipidemia, unspecified; L03.116 Cellulitis of left lower limb; E66.01 Morbid (severe) obesity due to excess calories; Z68.41 Body mass index [BMI] 40.0-44.9, adult; E87.6 Hypokalemia; F19.90 Other psychoactive substance use, unspecified, uncomplicated; Z20.822 Contact with and (suspected) exposure to COVID-19; Z79.01 Long term (current) use of anticoagulants; Z89.511 Acquired absence of right leg below knee; Z86.711 Personal history of pulmonary embolism; Z86.14 Personal history of Methicillin resistant Staphylococcus aureus infection; Z79.4 Long term (current) use of insulin; Z79.84 Long term (current) use of oral hypoglycemic drugs; Z79.899 Other long term (current) drug therapy
CPT/HCPCS: 0241U; 36415; 36600; 71045; 71275; 80048; 80053; 80076; 80202; 80307; 81001; 82010; 82040; 82140; 82565; 82803; 82947; 83605; 83690; 83735; 83880; 84100; 84443; 84484; 85025; 85027; 85610; 87040; 87086; 87147; 87640; 87641; 93005; 93925; 94002; 94003; 94799; 99285; C1758; J1170; J2060; J2250; J2251; J2310; J2405; J2543; J2704; J3370; J3371; Q9967

== ENCOUNTER → 2024-03-31 00:58 | Outpatient (BNV) | payer MEDICAID, SELFPAY | PROVIDERS: Admitting Provider Nurse Practitioner Family; Emergency Provider Emergency Medicine; PCP Internal Medicine; Visit Provider Hospitalist | DX: J96.01 Acute respiratory failure with hypoxia (principal); T50.901A Poisoning by unspecified drugs, medicaments and biological substances, accidental (unintentional), initial encounter; J18.9 Pneumonia, unspecified organism; L03.119 Cellulitis of unspecified part of limb | CPT/HCPCS: 99233; 99239; G0180 ==

== ENCOUNTER → 2024-03-31 00:58 | Outpatient (BNV) | payer MEDICAID, SELFPAY | PROVIDERS: Admitting Provider Nurse Practitioner Family; Emergency Provider Emergency Medicine; PCP Internal Medicine; Visit Provider Nurse Practitioner Family | DX: J96.01 Acute respiratory failure with hypoxia (principal); E11.65 Type 2 diabetes mellitus with hyperglycemia; J18.9 Pneumonia, unspecified organism; L03.119 Cellulitis of unspecified part of limb; J96.10 Chronic respiratory failure, unspecified whether with hypoxia or hypercapnia | CPT/HCPCS: 99233; 99291 ==

== ENCOUNTER 2024-08-17 17:25 | Inpatient (IN) | payer MEDICAID, SELFPAY ==
--- NOTE | ~2024-08-17 | US_ITS ---
EXAMINATION: US NONINVASIVE ASSESSMENT OF THE LEFT LOWER EXTREMITY WITH ARTERIAL DUPLEX AND ANKLE BRACHIAL INDICES (ABIS) CLINICAL INFORMATION: Nonhealing ulcer COMPARISON: Ultrasound arterial Doppler dated April 01, 2024. TECHNIQUE: Duplex Doppler techniques with waveform analysis and measurement of velocities in the common femoral, profunda femoris, superficial femoral, popliteal and tibial arteries were performed. In addition, ankle pulse volume recordings, ankle pressure measurements and ankle brachial indices were obtained of the left lower extremity arterial system. The study was performed only at rest. FINDINGS: LEFT LOWER EXTREMITY DUPLEX ULTRASOUND: Common femoral artery: 170 cm/s. Monophasic waveform. Profunda femoris artery: 143 cm/s. Monophasic waveform. Superficial femoral artery (proximal): 257 cm/s. Monophasic waveforms. Spectral broadening. Superficial femoral artery (mid): 81 cm/s. Monophasic waveforms. Spectral broadening. Superficial femoral artery (distal): 66 cm/s. Monophasic waveforms. Spectral broadening. Popliteal artery: 40 cm/s Monophasic waveforms. Posterior tibial artery is not interrogated secondary to patient discomfort/pain. Collateral vessels distal to the left superficial femoral artery. US/US arterial duplex LE IMPRESSION: Severe inflow disease throughout the vessels left lower extremity. Electronically signed by: Joshua Hi MD 08/22/2024 08:08 AM ALVINA
[2024-08-17 17:39] VITALS: BP 125/74; BP 144/98; PULSE 110; PULSE 95; RESP 18; TEMP 36.9; O2SAT 97; O2SAT 98; BMI 31.2
[2024-08-17 17:55] LABS: Glucose, Whole Blood 359 mg/dL (60-115)
--- NOTE | 2024-08-17 18:06 | HO.WOUND ---
Pt comes from home for bilateral lower leg infection/redness. Pt states this is a chronic wound and was receiving wound care at home but has recently stopped. Right below the knee amputation d/t chronic wounds/infections from DM. Warmth/redness noted to bilateral lower extremities. Pt denies any recent fevers/signs of infections. Pt has visiting nurses that come to her home, has recently stopped d/t a situation with the nurse so she is receiving no home/wound care services at this time. Pt also states her sugars have recently been elevated. Per EMS, poc was 443, our POC 359. Pt states she has not been controlling her sugars/taking care of herself well at home. A/ox3, no increased wob/sob, respirations even and unlabored, s1 and s2 heard, HR- 70s, abdomen soft, non-tender on palpation. Pt states 10/10 pain in her bilateral lower extremities. Pt updated on plan of care, all needs met at this time.
--- NOTE | 2024-08-17 18:11 | ED_ITS ---
HPI - Extremity Problem General Chief complaint: Extremity Injury, Lower Stated complaint: L leg infection from knee down Time Seen by Provider: 08/17/24 18:10 Source: patient Mode of arrival: ambulatory Limitations: no limitations History of Present Illness ED Provider: HPI Narrative: Patient is 54 years old with history of peripheral artery disease status post right BKA (08/30)and left metatarsal amputation, insulin-dependent type 2 diabetes, polysubstance abuse IVDA, bilateral pulmonary Eliquis, MRSA bacteremia, chronic opiate dependence on methadone comes here for worsening of the wounds for last 5 days of the left lower extremity and right BKA stump no fever no chills per EMS POC was 437 patient has taken multiple courses of antibiotics in the past Related Data Home Medications ?Medication ?Instructions ?Recorded ?Confirmed insulin glargine 100 unit/mL (3 35 unit subcut BEDTIME 11/28/22 03/31/24 mL) subcutaneous pen (Lantus Solostar U-100 Insulin) atorvastatin 80 mg tablet 80 mg PO DAILY 02/26/24 03/31/24 baclofen 10 mg tablet 10 mg PO TID 02/26/24 03/31/24 duloxetine 30 mg capsule,delayed 30 mg PO DAILY 02/26/24 03/31/24 release methadone 10 mg/mL oral 140 mg PO DAILY 02/27/24 04/02/24 concentrate (Methadone Intensol) empagliflozin 25 mg tablet 25 mg PO DAILY 03/31/24 03/31/24 (Jardiance) gabapentin 600 mg tablet 600 mg PO QID 03/31/24 03/31/24 insulin lispro 100 unit/mL 1 sliding scale dose subcut TIDAC 03/31/24 03/31/24 subcutaneous pen metformin 500 mg tablet 1,000 mg PO BIDWM 03/31/24 03/31/24 Previous Rx's ?Medication ?Instructions ?Recorded walker #1 ea 10/04/21 apixaban 5 mg tablet (Eliquis) 5 mg PO BID 30 days #60 tabs 09/03/22 alprazolam 0.5 mg tablet 0.5 mg PO BEDTIME PRN Anxiety #10 02/29/24 tabs amoxicillin 875 mg-potassium 1 tab PO Q12H 3 days #6 tabs 04/04/24 clavulanate 125 mg tablet Allergies Allergy/AdvReac Type Severity Reaction Status Date / Time prednisone [PREDNISONE] Allergy Unknown RASH Verified 08/17/24 17:43 Review of Systems 2 Review of Systems: Yes all other systems are reviewed and are negative [facility] Past Medical History Medical History (Updated 08/17/24 @ 20:43 by Paige Toney PA-C) Obesity (BMI 30.0-34.9) Hyperglycemia due to type 2 diabetes mellitus 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 Diabetic ulcer of lower leg Eschar of lower leg Peripheral arterial disease Pulmonary nodules Chronic respiratory failure Pneumonitis Obesity (BMI 35.0-39.9 without comorbidity) Acute respiratory failure with hypoxia NSTEMI (non-ST elevated myocardial infarction) Opioid use disorder Osteomyelitis Diabetes Anxiety Substance abuse Surgical History Hx of right BKA S/P amputation of foot Status post transmetatarsal amputation of right foot (09/24/21) Social History Social History Household Members: Unknown / Unable to assess Household Members Other:: son Housing: Unknown / Unable to assess Unable to assess alcohol history related to: Unable to respond Alcohol intake: never Comment: took socks off Patient Tobacco Use Status: Tobacco use Unknown Tobacco use type: Cigarette Cigarette Packs Per Day: 0 Cigarettes Per Day: 1 Years Smoked: 40 e-Cigarette/Vaping Use: Currently Using Second Hand Smoke Exposure: No Substance Use Type: Marijuana Advance Directives: Yes Advance Directives on File: Yes Advance Directives Date on File: 09/22/21 Do you have a plan to hurt others: No Plan service: No Current occupational status: unemployed Physical Exam 2 Vital Signs: Vital Signs: Last Vital Signs Temp 98.3 F 08/17/24 19:15 Pulse 87 08/17/24 19:15 Resp 17 08/17/24 19:15 BP 110/67 08/17/24 19:15 Pulse Ox 95 08/17/24 19:15 O2 Del Method Room Air 08/17/24 19:15 BMI result Body Mass Index 31.2 Appearance: Alert. Oriented X3. No acute distress. Eyes: No pallor or icterus ENT: Pharynx normal. Oral Mucosa moist Neck: Normal inspection. Neck supple. CVS: Normal heart rate and rhythm. Pulses normal. Respiratory: No respiratory distress. Equal air entry bilateral, no wheezing/rales/rhonchi Abdomen: Soft and nontender. Bowel sounds are present, no mass palpable, no CVA tenderness Skin: Skin warm and dry. Dry erythematous lower extremity skin with multiple scabs wound in left lower extremities right BKA stump Extremities: Left dorsal pedis + Neuro: Oriented X 3. No motor deficit. No sensory deficit.No cerebellar signs , cranial nerves II-XII intact Medications Administered Discontinued Medications Generic Name Dose Route Start Last Admin Trade Name Freq PRN Reason Stop Dose Admin Sodium Chloride 1,000 mls @ 999 mls/hr 08/17/24 18:28 08/17/24 18:48 Ns IV 08/17/24 19:28 999 mls/hr .Q1H1M ONE Administration Vancomycin HCl 1,500 mg/ 500 mls @ 333.333 mls/hr 08/17/24 18:29 08/17/24 20:07 Sodium Chloride IV 08/17/24 19:58 333.33 mls/hr ONCE ONE Administration Piperacillin Sod/Tazobactam 50 mls @ 100 mls/hr 08/17/24 18:29 08/17/24 20:06 Sod 3.375 gm/ Sodium Chloride IV 08/17/24 18:58 Infused ONCE ONE Infusion Insulin Human Lispro 10 unit 08/17/24 19:34 08/17/24 20:08 Insulin Lispro 100 Unit/Ml 3 Ml Vial SUBCUT 08/17/24 19:35 10 unit ONCE ONE Administration Morphine Sulfate 4 mg 08/17/24 18:28 08/17/24 18:48 Morphine Sulfate 4 Mg/Ml Cartridge IVPUSH 08/17/24 18:29 4 mg ONCE ONE Administration Protocol Medical Decision Making Medical Decision Making MDM Narrative: Patient is diabetic with infected stump and lower left lower extreme with scabs cellulitis will admit patient for IV antibiotics and surgical consultation Admission/Observation Consideration of admission/observation: Escalation of care including admission/observation considered Consult Healthcare Provider Management of the patient was discussed with: Hospitalist Lab Data MDM Lab Attestation statement: I reviewed the patient's lab results. 08/17/24 18:50 08/17/24 18:50 Labs: Lab Results 08/17/24 08/17/24 Range/Units 17:51 18:50 WBC 10.8 (4.8-10.8) X10*3/uL RBC 4.48 (4.20-5.50) X10*6/uL Hgb 12.0 (12.0-16.0) g/dl Hct 37.0 (37.0-47.0) % MCV 82.6 (80.0-98.0) fL MCH 26.8 L (27.0-33.0) pg MCHC 32.4 (31.0-35.0) g/dl RDW 14.5 (11.0-16.0) % Plt Count 367 (160-400) X10*3/uL MPV 9.7 (9.4-12.3) fL Immature Gran % (Auto) 0.5 H (0.0-0.4) % Neut % (Auto) 81.4 H (45-73) % Lymph % (Auto) 10.2 L (20-40) % [place] % (Auto) 6.5 (2-11) % Eos % (Auto) 0.8 (0-4) % Baso % (Auto) 0.6 (0-2) % Lymph # (Auto) 1.1 L (1.2-4.9) X10*3/uL [place] # (Auto) 0.7 (0.1-1.2) X10*3/uL Eos # (Auto) 0.1 (0.0-0.4) X10*3/uL Baso # (Auto) 0.1 (0.0-0.2) X10*3/uL Abs Immat Gran (auto) 0.05 H (0.00-0.03) X10*3/uL Absolute Neuts (auto) 8.8 H (2.0-8.3) x10*3/uL Absolute Nucleated RBC 0.000 (0.0-0.012) X10*3/uL Nucleated RBC % (auto) 0.0 (0.0-0.2) /100WBC Sodium 132 L (135-145) mmol/L Potassium 4.3 (3.3-5.1) mmol/L Chloride 95 L (96-108) mmol/L Carbon Dioxide 28 (22-29) mmol/L Anion Gap 13 (12-20) BUN 11 (9-16) mg/dL Creatinine 0.76 (0.5-1.4) mg/dL Estim Creat Clear Calc 94.4 Estimated GFR > 60 POC Glucose 359 H* (60-115) mg/dL Random Glucose 352 H* (60-115) mg/dL Lactic Acid 2.0 (0.5-2.0) mmol/L Calcium 8.7 (8.4-10.2) mg/dL Total Bilirubin 0.2 (0.0-1.0) mg/dL AST 35 H (5-31) U/L ALT 8 (0-31) U/L Alkaline Phosphatase 97 (39-117) U/L Total Protein 7.3 (6.5-8.0) g/dL Albumin 2.8 L (3.5-5.0) g/dL Discharge Plan Discharge Clinical Impression: Infected wound, Hyperglycemia due to diabetes mellitus Cellulitis Qualifiers: Site of cellulitis: extremity Site of cellulitis of extremity: lower extremity Laterality: unspecified laterality Qualified Code(s): L03.119 - Cellulitis of unspecified part of limb Patient Disposition: Admitted As Inpatient
[2024-08-17] MEDS: 0.9 % Sodium Chloride 1,000 ML 999 ML IV (18:48)
[2024-08-17] MEDS: Morphine Sulfate 4 MG/ML CARTRIDGE IVPUSH ×2 (18:48→23:02)
[2024-08-17 18:57] LABS: Basophils Absolute Auto 0.1 X10*3/uL (0.0-0.2); Basophils Percent Auto 0.6 % (0-2); Eosinophils Absolute Auto 0.1 X10*3/uL (0.0-0.4); Eosinophils Percent Auto 0.8 % (0-4); Imm Gran Abs Auto 0.05 X10*3/uL (0.00-0.03); Imm Gran Pct Auto 0.5 % (0.0-0.4); Lymphocytes Absolute Auto 1.1 X10*3/uL (1.2-4.9); Lymphocytes Percent Auto 10.2 % (20-40); MANUAL DIFF FLAG NO; Mean Corpuscular HGB Conc 32.4 g/dl (31.0-35.0); Mean Corpuscular Hemoglobin 26.8 pg (27.0-33.0); Mean Corpuscular Volume 82.6 fL (80.0-98.0); Mean Platelet Volume 9.7 fL (9.4-12.3); Monocytes Absolute Auto 0.7 X10*3/uL (0.1-1.2); Monocytes Percent Auto 6.5 % (2-11); Neutrophils Absolute Auto 8.8 x10*3/uL (2.0-8.3); Neutrophils Percent Auto 81.4 % (45-73); Platelet Count 367 X10*3/uL (160-400); Red Blood Count 4.48 X10*6/uL (4.20-5.50); Red Cell Distribution Width 14.5 % (11.0-16.0); White Blood Count 10.8 X10*3/uL (4.8-10.8)
[2024-08-17] MEDS: Piperacillin Sodium/Tazobactam 3.375 GM in 0.9 % Sodium Chloride 50 ML IV (19:13)
[2024-08-17 19:15] VITALS: BP 110/67; PULSE 87; RESP 17; TEMP 36.8; O2SAT 95
[2024-08-17 19:19] LABS: Alanine Aminotransferase 8 U/L (0-31); Albumin Level 2.8 g/dL (3.5-5.0); Alkaline Phosphatase 97 U/L (39-117); Anion Gap 13 (12-20); Aspartate Amino Transferase 35 U/L (5-31); Bilirubin Total 0.2 mg/dL (0.0-1.0); Blood Urea Nitrogen 11 mg/dL (9-16); Calcium 8.7 mg/dL (8.4-10.2); Carbon Dioxide 28 mmol/L (22-29); Chloride 95 mmol/L (96-108); Creatinine Clr Calc Pharmacy 94.4; Estimated Glomerular Filt Rate > 60; Glucose Random 352 mg/dL (60-115); Potassium 4.3 mmol/L (3.3-5.1); Sodium 132 mmol/L (135-145); Total Protein 7.3 g/dL (6.5-8.0)
[2024-08-17] MEDS: vancomycin HCL 1,500 MG in 0.9 % Sodium Chloride 500 ML 333.33 MG IV (20:07)
[2024-08-17] MEDS: Insulin Lispro 100 UNIT/ML 3 ML VIAL 10 UNIT SUBCUT (20:08)
--- NOTE | 2024-08-17 20:27 | P.HPHOSP_ITS ---
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 She reports that they have been worsening over the past 5 days and rates the pain at 10/10. She denies any nausea vomiting fever or chills. She denies any purulent drainage or warmth to the area. She does vape but does not smoke cigarettes and has a history of IV drug abuse but reports none in the past 20 years. She has relapsed on opiates in the past year but reports intranasal use only. Review of Systems 2 Constitutional: Constitutional: Denies body ache(s), Denies chills, Denies fatigue, Denies fever(s) and Denies headache(s) Eyes: Eyes: Denies change in vision ENT: Denies headache(s), Denies nasal congestion, Denies nasal discharge and Denies sore throat Cardiovascular: Cardiovascular: Denies chest pain, Denies rapid heart rate, Denies leg edema, Denies lightheadedness and Denies dyspnea Respiratory: Respiratory: Denies chest congestion, Denies cough, Denies dyspnea and Denies wheezing Gastrointestinal: Gastrointestinal: Denies constipation, Denies diarrhea, Denies nausea and Denies vomiting Genitourinary: Genitourinary: Denies dysuria and Denies urinary urgency Musculoskeletal: Musculoskeletal: Reports as per HPI and Denies back pain Integumentary/Breasts: Skin/Breast: Reports as per HPI, Reports erythema, Reports skin ulcer and Reports sores Neurologic: Denies confusion and Denies headache(s) Psychiatric: Psychiatric: Denies confusion Endocrine: Endocrine: Denies fatigue Hematologic/Lymphatic: Hematologic/Lymphatic: Denies easy bleeding and Denies easy bruising Allergic/Immunologic: Allergic/Immunologic: Denies wheezing [facility] Medical History (Updated 08/17/24 @ 20:43 by Paige Toney PA-C) Obesity (BMI 30.0-34.9) Hyperglycemia due to type 2 diabetes mellitus 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 Diabetic ulcer of lower leg Eschar of lower leg Peripheral arterial disease Pulmonary nodules Chronic respiratory failure Pneumonitis Obesity (BMI 35.0-39.9 without comorbidity) Acute respiratory failure with hypoxia NSTEMI (non-ST elevated myocardial infarction) Opioid use disorder Osteomyelitis Diabetes Anxiety Substance abuse Functional capacity: wheelchair bound Surgical History Hx of right BKA S/P amputation of foot Status post transmetatarsal amputation of right foot (09/24/21) Social History Household Members: Unknown / Unable to assess Household Members Other:: son Housing: Unknown / Unable to assess Unable to assess alcohol history related to: Unable to respond Alcohol intake: never Comment: took socks off Patient Tobacco Use Status: Tobacco use Unknown Tobacco use type: Cigarette Cigarette Packs Per Day: 0 Cigarettes Per Day: 1 Years Smoked: 40 e-Cigarette/Vaping Use: Currently Using Second Hand Smoke Exposure: No Substance Use Type: Marijuana Advance Directives: Yes Advance Directives on File: Yes Advance Directives Date on File: 09/22/21 Do you have a plan to hurt others: No Plan service: No Current occupational status: unemployed Narrative: vapes nicotine, no etoh, hx IVDU 20 years ago, replased with intranasal opiates within the past year Meds Allergies Allergy/AdvReac Type Severity Reaction Status Date / Time prednisone [PREDNISONE] Allergy Unknown RASH Verified 08/17/24 17:43 Active Medications: Current Medications Acetaminophen (Acetaminophen 325 Mg Tablet) 975 mg PO Q6H PRN PRN Reason: Pain, Mild 1-3,fever,headache Calcium Carbonate (Calcium Carbonate 750 Mg Tab.Chew) 750 mg PO Q4H PRN PRN Reason: Heartburn Glucose (Glucose Gel 15 Gm Gel..Gram.) 15 gm PO Q15M PRN; Protocol PRN Reason: per Hypoglycemia Standing Ord. Dextrose (D10) 250 mls @ 750 mls/hr IV Q15M PRN; Protocol PRN Reason: per Hypoglycemia Standing Ord. Piperacillin Sod/Tazobactam (Sod 3.375 gm/ Sodium Chloride) 50 mls @ 100 mls/hr IV Q6H DADA Vancomycin HCl 1,000 mg/ (Sodium Chloride) 270 mls @ 270 mls/hr IV Q12H [facility] Insulin Human Lispro (Insulin Lispro 100 Unit/Ml 3 Ml Vial) 0 unit SUBCUT QIDACHS [facility]; Protocol Magnesium Hydroxide (Milk Of Magnesia 30 Ml Oral.Susp) 30 ml PO DAILY PRN PRN Reason: Constipation Melatonin (Melatonin 3 Mg Tablet) 6 mg PO BEDTIME PRN PRN Reason: Insomnia Morphine Sulfate (Morphine Sulfate 4 Mg/Ml Cartridge) 4 mg IVPUSH Q4H PRN; Protocol PRN Reason: Pain, Severe (Pain Scale 7-10) Ondansetron HCl (Ondansetron Hcl 4 Mg/2 Ml Vial) 4 mg IVPUSH Q8H PRN PRN Reason: Nausea and Vomiting Pharmacy Consult (Consult Rx Vancomycin Dosing) 1 each MISCELLANE DAILY PRN PRN Reason: Consult order Sodium Chloride (0.9 % Sodium Chloride Flush 3 Ml Syringe) 3 ml IVFLUSH [facility] Home Medications ?Medication ?Instructions ?Recorded ?Confirmed ?Last Taken ?Type insulin glargine 100 unit/mL (3 35 unit subcut BEDTIME 11/28/22 03/31/24 03/30/24 History mL) subcutaneous pen (Lantus Solostar U-100 Insulin) atorvastatin 80 mg tablet 80 mg PO DAILY 02/26/24 03/31/24 03/30/24 History baclofen 10 mg tablet 10 mg PO TID 02/26/24 03/31/24 03/30/24 History duloxetine 30 mg capsule,delayed 30 mg PO DAILY 02/26/24 03/31/24 03/30/24 History release methadone 10 mg/mL oral 140 mg PO DAILY 02/27/24 04/02/24 02/25/24 History concentrate (Methadone Intensol) empagliflozin 25 mg tablet 25 mg PO DAILY 03/31/24 03/31/24 03/30/24 History (Jardiance) gabapentin 600 mg tablet 600 mg PO QID 03/31/24 03/31/24 03/30/24 History insulin lispro 100 unit/mL 1 sliding scale dose subcut TIDAC 03/31/24 03/31/24 03/30/24 History subcutaneous pen metformin 500 mg tablet 1,000 mg PO BIDWM 03/31/24 03/31/2403/30/24 History Physical Exam 2 Vital Signs and Narrative: Vital Signs: Last Vital Signs Temp 98.3 F 08/17/24 19:15 Pulse 87 08/17/24 19:15 Resp 17 08/17/24 19:15 BP 110/67 08/17/24 19:15 Pulse Ox 95 08/17/24 19:15 O2 Del Method Room Air 08/17/24 19:15 BMI result Body Mass Index 31.2 General: AOx3, no acute distress Resp: CTA bilaterally CVS: S1, S2, RRR GI: +BS, NT, no distention Skin: Warm, dry. erythema extending up bilateral LE with PAD. s/p R BKA. no purulent drainage or warmth. Neuro: Cranial nerves II-XII grossly intact bilaterally. Motor grossly intact bilaterally Extremities: No LE edema Psych: Appropriate affect Const: General: No confusion Orientation/consciousness: No confusion Neuro: General: No confusion Results Labs 08/17/24 18:50 08/17/24 18:50 Labs: Laboratory Results - last 24 hr 08/17/24 08/17/24 17:51 18:50 MCV 82.6 MCH 26.8 L MCHC 32.4 RDW 14.5 Plt Count 367 MPV 9.7 Immature Gran % (Auto) 0.5 H Neut % (Auto) 81.4 H Lymph % (Auto) 10.2 L [place] % (Auto) 6.5 Eos % (Auto) 0.8 Baso % (Auto) 0.6 Lymph # (Auto) 1.1 L [place] # (Auto) 0.7 Eos # (Auto) 0.1 Baso # (Auto) 0.1 Abs Immat Gran (auto) 0.05 H Absolute Neuts (auto) 8.8 H Absolute Nucleated RBC 0.000 Nucleated RBC % (auto) 0.0 Anion Gap 13 Estim Creat Clear Calc 94.4 Estimated GFR > 60 POC Glucose 359 H* Random Glucose 352 H* Lactic Acid 2.0 Calcium 8.7 Total Bilirubin 0.2 AST 35 H ALT 8 Alkaline Phosphatase 97 Total Protein 7.3 Albumin 2.8 L Assessment and Plan (1) Intractable pain: Status: Acute (2) Peripheral arterial disease: Status: Chronic (3) Cellulitis: Qualifiers: Laterality: unspecified laterality Site of cellulitis: extremity Site of cellulitis of extremity: lower extremity Qualified Code(s): L03.119 - Cellulitis of unspecified part of limb Status: Acute (4) Hyperglycemia due to type 2 diabetes mellitus: Qualifiers: 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 intractable pain secondary to PAD vs neuropathy vs cellulitis - WBC 10.8, no fever, vitals stable, lactic acid normal, no sepsis - appears to be more consistent with PAD or neuropathy rather than cellulitis given lack of infections sx and bilateral presentation - started on zosyn and vanco in ED, will continue for now pending vascular consult - scheduled tylenol, start gabapentin 100mg TID, and PRN morphine for pain management - vascular consult - monitor CBC and BMP hyperglycemia due to T2DM on insulin - continue lantus at home dose, once confirmed with pharmacy - SSI - diabetic diet obesity - BMI 31.2 - weight loss encouraged nicotine dependence - smoking cessation discussed and encouraged - nicotine patch hx DVT/PE - continue eliquis full code VTE prophy: eliquis Pt with intractable pain secondary to PAD vs neuropathy vs cellulitis requiring admission for pain management and IV abx for at least 2 midnights stay. Quality Stroke Does the patient have a stroke diagnosis?: No VTE Prior VTE?: Yes VTE Risk Level:: Medical - moderate - high VTE Device Contraindication: Treatment Not Indicated VTE Drug Contraindication: N/A - Med Ordered
[2024-08-17] MEDS: Insulin Glargine,Hum.rec.anlog 100 UNIT/ML 10 ML VIAL 25 UNIT SUBCUT (21:24)
[2024-08-17] MEDS: Gabapentin 100 MG CAPSULE PO (21:25)
[2024-08-17] MEDS: 0.9 % Sodium Chloride Flush 3 ML SYRINGE IVFLUSH (23:05)
[2024-08-17 23:06] VITALS: BP 113/80; PULSE 89; RESP 17; TEMP 36.8; O2SAT 94
[2024-08-18] VITALS (9 sets, daily range): BP systolic 100–128; BP diastolic 60–65; PULSE 74–100; RESP 14–18; TEMP 36.1–37.5; O2SAT 93–98
[2024-08-18 00:21] LABS: Glucose, Whole Blood 117 mg/dL (60-115)
[2024-08-18] MEDS: Piperacillin Sodium/Tazobactam 3.375 GM in 0.9 % Sodium Chloride 50 ML IV ×4 (01:35→18:17)
--- NOTE | 2024-08-18 01:39 | HO.SKINPHOTO ---
Location: coccyx Category: PI Stage: Length: Width: Depth: cm Location: Category: Stage: Length: Width: Depth: cm Location: Category: Stage: Length: Width: Depth: cm Location: Category: Stage: Length: Width: Depth: cm Location: Category: Stage: Length: Width: Depth: cm Location: Category: Stage: Length: Width: Depth: cm
--- NOTE | 2024-08-18 01:40 | HO.SKINPHOTO ---
Location: L heel Category:unstagable Stage: Length: Width: Depth: cm Location: Category: Stage: Length: Width: Depth: cm Location: Category: Stage: Length: Width: Depth: cm Location: Category: Stage: Length: Width: Depth: cm Location: Category: Stage: Length: Width: Depth: cm Location: Category: Stage: Length: Width: Depth: cm
--- NOTE | 2024-08-18 01:41 | HO.SKINPHOTO ---
Location: LLE Category: unstagable/ulcerations. Cellulitis Stage: Length: Width: Depth: cm Location: Category: Stage: Length: Width: Depth: cm Location: Category: Stage: Length: Width: Depth: cm Location: Category: Stage: Length: Width: Depth: cm Location: Category: Stage: Length: Width: Depth: cm Location: Category: Stage: Length: Width: Depth: cm
--- NOTE | 2024-08-18 01:43 | HO.SKINPHOTO ---
Location: R stump Category: ulcerations/cellulitis Stage: Length: Width: Depth: cm Location: Category: Stage: Length: Width: Depth: cm Location: Category: Stage: Length: Width: Depth: cm Location: Category: Stage: Length: Width: Depth: cm Location: Category: Stage: Length: Width: Depth: cm Location: Category: Stage: Length: Width: Depth: cm
--- NOTE | 2024-08-18 01:45 | PC.NURSE ---
Patient goes to [facility] in [place]. States did not take Methadone for past 5 days due to transportation issues. Takes 140 mg Daily.
[2024-08-18] MEDS: Morphine Sulfate 4 MG/ML CARTRIDGE IVPUSH ×5 (02:01→23:40)
[2024-08-18] MEDS: Acetaminophen 325 MG TABLET 975 MG PO ×4 (06:42→23:42)
[2024-08-18 06:59] LABS: MANUAL DIFF FLAG NO
[2024-08-18 07:01] LABS: Basophils Absolute Auto 0.1 X10*3/uL (0.0-0.2); Basophils Percent Auto 0.5 % (0-2); Eosinophils Absolute Auto 0.2 X10*3/uL (0.0-0.4); Eosinophils Percent Auto 2.1 % (0-4); Hematocrit 32.5 % (37.0-47.0); Hemoglobin 10.3 g/dl (12.0-16.0); Imm Gran Abs Auto 0.04 X10*3/uL (0.00-0.03); Imm Gran Pct Auto 0.4 % (0.0-0.4); Lymphocytes Absolute Auto 1.7 X10*3/uL (1.2-4.9); Lymphocytes Percent Auto 15.7 % (20-40); Mean Corpuscular HGB Conc 31.7 g/dl (31.0-35.0); Mean Corpuscular Hemoglobin 26.3 pg (27.0-33.0); Mean Corpuscular Volume 83.1 fL (80.0-98.0); Monocytes Absolute Auto 0.9 X10*3/uL (0.1-1.2); Monocytes Percent Auto 7.9 % (2-11); Neutrophils Absolute Auto 8.1 x10*3/uL (2.0-8.3); Neutrophils Percent Auto 73.4 % (45-73); Platelet Count 401 X10*3/uL (160-400); Red Blood Count 3.91 X10*6/uL (4.20-5.50); Red Cell Distribution Width 14.7 % (11.0-16.0); White Blood Count 11.1 X10*3/uL (4.8-10.8)
[2024-08-18 07:15] LABS: Blood Urea Nitrogen 12 mg/dL (9-16); Calcium 8.1 mg/dL (8.4-10.2); Creatinine Clr Calc Pharmacy 102.4; Estimated Glomerular Filt Rate > 60; Glucose Random 184 mg/dL (60-115)
[2024-08-18 07:28] LABS: Anion Gap 12 (12-20); Carbon Dioxide 28 mmol/L (22-29); Chloride 99 mmol/L (96-108); Potassium 3.3 mmol/L (3.3-5.1); Sodium 136 mmol/L (135-145)
[2024-08-18] MEDS: 0.9 % Sodium Chloride Flush 3 ML SYRINGE IVFLUSH ×2 (07:31→15:47)
[2024-08-18] MEDS: vancomycin HCL 1,000 MG in 0.9 % Sodium Chloride 250 ML 270 MG IV ×2 (07:43→20:17)
[2024-08-18 07:45] LABS: Glucose, Whole Blood 180 mg/dL (60-115)
[2024-08-18] MEDS: Insulin Lispro 100 UNIT/ML 3 ML VIAL SUBCUT ×3 (07:47→21:53)
[2024-08-18] MEDS: Apixaban 5 MG TABLET PO (07:47)
[2024-08-18] MEDS: Gabapentin 100 MG CAPSULE PO ×3 (07:48→20:12)
[2024-08-18] MEDS: Nicotine 14 MG PATCH.TD24 TRANSDERMA (07:48)
--- NOTE | 2024-08-18 10:03 | MHC.CM.PN ---
pt lives w/son who is her manager collection pt will need amb [facility] home she is active w/[facility] for her methadone
--- NOTE | 2024-08-18 10:35 | P.PNIM_ITS ---
Subjective Subjective Date of Service: 08/18/24 Interval History: Patient c/o excruciating pain in the left leg Physical Exam 2 Vital Signs: Vital Signs: Last Vital Signs Temp 97.9 F 08/18/24 07:28 Pulse 91 08/18/24 07:28 Resp 16 08/18/24 07:28 BP 123/60 08/18/24 07:28 Pulse Ox 98 08/18/24 07:28 O2 Del Method Room Air 08/18/24 07:28 BMI result Body Mass Index 31.2 General: AO X 3, no acute distress Resp: CTA bilateral CVS: S1,S2,RRR GI: +BS, NT, no distention Skin: No rash back of left leg left leg Neuro: motor grossly intact Psych: appropriate affect Objective Data Active Medications Acetaminophen (Acetaminophen 325 Mg Tablet) 975 mg PO Q6H [facility] Last Admin: 08/18/24 06:42 Dose: 975 mg Documented By: KENDAL Apixaban (Apixaban 5 Mg Tablet) 5 mg PO BID [facility] Last Admin: 08/18/24 07:47 Dose: 5 mg Documented By: CARLO Calcium Carbonate (Calcium Carbonate 750 Mg Tab.Chew) 750 mg PO Q4H PRN PRN Reason: Heartburn Gabapentin (Gabapentin 100 Mg Capsule) 100 mg PO TID [facility] Last Admin: 08/18/24 07:48 Dose: 100 mg Documented By: CARLO Glucose (Glucose Gel 15 Gm Gel..Gram.) 15 gm PO Q15M PRN; Protocol PRN Reason: per Hypoglycemia Standing Ord. Dextrose (D10) 250 mls @ 750 mls/hr IV Q15M PRN; Protocol PRN Reason: per Hypoglycemia Standing Ord. Piperacillin Sod/Tazobactam (Sod 3.375 gm/ Sodium Chloride) 50 mls @ 100 mls/hr IV Q6H [facility] Last Infusion: 08/18/24 07:29 Dose: Infused Documented By: CARLO Vancomycin HCl 1,000 mg/ (Sodium Chloride) 270 mls @ 270 mls/hr IV Q12H [facility] Last Infusion: 08/18/24 09:53 Dose: Infused Documented By: CARLO Insulin Human Lispro (Insulin Lispro 100 Unit/Ml 3 Ml Vial) 0 unit SUBCUT QIDACHS [facility]; Protocol Last Admin: 08/18/24 07:47 Dose: 2 unit Documented By: CARLO Magnesium Hydroxide (Milk Of Magnesia 30 Ml Oral.Susp) 30 ml PO DAILY PRN PRN Reason: Constipation Melatonin (Melatonin 3 Mg Tablet) 6 mg PO BEDTIME PRN PRN Reason: Insomnia Morphine Sulfate (Morphine Sulfate 4 Mg/Ml Cartridge) 4 mg IVPUSH Q3H PRN; Protocol PRN Reason: Pain, Severe (Pain Scale 7-10) Nicotine (Nicotine 14 Mg Patch.Td24) 14 mg TRANSDERMA DAILY [facility] Last Admin: 08/18/24 07:48 Dose: 14 mg Documented By: CARLO Ondansetron HCl (Ondansetron Hcl 4 Mg/2 Ml Vial) 4 mg IVPUSH Q8H PRN PRN Reason: Nausea and Vomiting Oxycodone HCl (Oxycodone Hcl Immed Release 5 Mg Tablet) 5 mg PO Q6H PRN PRN Reason: Pain, Moderate(Pain Scale 4-6) Pharmacy Consult (Consult Rx Vancomycin Dosing) 1 each MISCELLANE DAILY PRN PRN Reason: Consult order Sodium Chloride (0.9 % Sodium Chloride Flush 3 Ml Syringe) 3 ml IVFLUSH QSHIFT [facility] Last Admin: 08/18/24 07:31 Dose: 3 ml Documented By: CARLO Labs 08/18/24 05:45 08/18/24 05:45 Labs: Laboratory Results - last 24 hr 08/17/24 08/17/24 08/18/24 17:51 18:50 00:17 MCV 82.6 MCH 26.8 L MCHC 32.4 RDW 14.5 Plt Count 367 MPV 9.7 Immature Gran % (Auto) 0.5 H Neut % (Auto) 81.4 H Lymph % (Auto) 10.2 L [place] % (Auto) 6.5 Eos % (Auto) 0.8 Baso % (Auto) 0.6 Lymph # (Auto) 1.1 L [place] # (Auto) 0.7 Eos # (Auto) 0.1 Baso # (Auto) 0.1 Abs Immat Gran (auto) 0.05 H Absolute Neuts (auto) 8.8 H Absolute Nucleated RBC 0.000 Nucleated RBC % (auto) 0.0 Anion Gap 13 Estim Creat Clear Calc 94.4 Estimated GFR > 60 POC Glucose 359 H* 117 H Random Glucose 352 H* Lactic Acid 2.0 Calcium 8.7 Total Bilirubin 0.2 AST 35 H ALT 8 Alkaline Phosphatase 97 Total Protein 7.3 Albumin 2.8 L 08/18/24 08/18/24 05:45 07:42 MCV 83.1 MCH 26.3 L MCHC 31.7 RDW 14.7 Plt Count 401 H MPV 10.0 Immature Gran % (Auto) 0.4 Neut % (Auto) 73.4 H Lymph % (Auto) 15.7 L [place] % (Auto) 7.9 Eos % (Auto) 2.1 Baso % (Auto) 0.5 Lymph # (Auto) 1.7 [place] # (Auto) 0.9 Eos # (Auto) 0.2 Baso # (Auto) 0.1 Abs Immat Gran (auto) 0.04 H Absolute Neuts (auto) 8.1 Absolute Nucleated RBC 0.000 Nucleated RBC % (auto) 0.0 Anion Gap 12 Estim Creat Clear Calc 102.4 Estimated GFR > 60 POC Glucose 180 H Random Glucose 184 H Lactic Acid Calcium 8.1 L D Total Bilirubin AST ALT Alkaline Phosphatase Total Protein Albumin Assessment and Plan (1) Cellulitis: Status: Acute (2) DVT (deep venous thrombosis): Status: Acute Plan Patient is a 54-year-old female with a past medical history significant for peripheral arterial disease, type 2 diabetes on insulin, NSTEMI/CVA in 2021, DVT/bilateral PE on Eliquis, MRSA bacteremia polysubstance IV drug abuse, 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 intractable pain secondary to PAD vs neuropathy vs cellulitis - WBC 10.8, no fever, vitals stable, lactic acid normal, no sepsis - appears to be more consistent with PAD or neuropathy rather than cellulitis given lack of infections sx and bilateral presentation - started on zosyn and vanco in ED, will continue for now pending vascular consult and surgery consult - scheduled tylenol, start gabapentin 100mg TID, and PRN morphine for pain management and oxycodone - vascular consult and surgery consult for possible debridment - monitor CBC and BMP hyperglycemia due to T2DM on insulin - continue lantus 30 bid (40 bid at home) -hold metformin - SSI - diabetic diet obesity - BMI 31.2 - weight loss encouraged Opioid use disorde -resume Methadone once dose confirmed nicotine dependence - smoking cessation discussed and encouraged - nicotine patch hx DVT/PE - continue eliquis full code VTE prophy: eliquis inpatient for possible cellulitis and need for wound debridment Quality Stroke Does the patient have a stroke diagnosis?: No VTE Prior VTE?: Yes VTE Risk Level:: Medical - moderate - high VTE Device Contraindication: Treatment Not Indicated VTE Drug Contraindication: N/A - Med Ordered
[2024-08-18 11:10] LABS: Glucose, Whole Blood 150 mg/dL (60-115)
--- NOTE | 2024-08-18 11:18 | HE.PHANOTE ---
Methadone Methadone verification form recieved from [facility] ( [phone]) called and methadone 140 mg dose daily confirmed. Last dose is 08/14/24 at clinic. RN spoke with Lyndsey at clinic
--- NOTE | 2024-08-18 11:44 | P.CONGS_ITS ---
History of Present Illness Consult details Consult date: 08/18/24 Narrative: 54-year-old female with known peripheral artery disease, diabetes, non STEMI and CVA, PEs, here in the ER because of pain on the left leg She says that this has been ongoing for over 5 days now. She has a known history of ulcers and eschars on both lower extremities. She had a transmetatarsal amputation initially on the right side a few years ago and she had a BKA last August, in [facility]. She also had a partial amputation of the big toe on the left She has had chronic issues with ulcers and eschars of both lower extremities She denies any fever or chills. She does have a history of a drug abuse in the remote past. She denies being a smoker. I was consulted because of the presence of a large eschar on the posterior aspect of the left lower leg Review of Systems 2 Constitutional: Constitutional: Denies chills and Denies fever(s) Cardiovascular: Cardiovascular: Denies chest pain, Denies dyspnea and Reports dyspnea on exertion Respiratory: Respiratory: Denies cough, Denies dyspnea and Reports dyspnea on exertion Gastrointestinal: Gastrointestinal: Denies hematochezia and Denies change in bowel habits Genitourinary: Genitourinary: Denies hematuria Musculoskeletal: Musculoskeletal: Denies back pain, Reports myalgias and Reports limited range of motion Neurologic: Denies focal weakness and Denies convulsions Psychiatric: Psychiatric: Denies depression and Denies mood swings PMFSH Past Medical History Medical History Eschar of lower leg Obesity (BMI 30.0-34.9) Hyperglycemia due to type 2 diabetes mellitus 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 Diabetic ulcer of lower leg Peripheral arterial disease Pulmonary nodules Chronic respiratory failure Pneumonitis Obesity (BMI 35.0-39.9 without comorbidity) Acute respiratory failure with hypoxia NSTEMI (non-ST elevated myocardial infarction) Opioid use disorder Osteomyelitis Diabetes Anxiety Substance abuse Surgical History Surgical History Hx of right BKA S/P amputation of foot Status post transmetatarsal amputation of right foot (09/24/21) Social History Social History Household Members: Other Household Members Other:: friend Housing: Apartment Are you a primary medical care administrator to a significant other at home: No Do you presently have visiting nurse or other home services: No Unable to assess alcohol history related to: Unable to respond Alcohol intake: never Comment: took socks off Patient Tobacco Use Status: Former Tobacco user Tobacco use type: Cigarette Cigarette Packs Per Day: 0 Cigarettes Per Day: 1 Years Smoked: 40 Smoked in Last 30 Days: No e-Cigarette/Vaping Use: Currently Using Second Hand Smoke Exposure: No Use of substances other than those prescribed or required for medical reasons: Yes Substance Use Type: Marijuana Substance Use Frequency: Occasionally Currently Displaying Signs/Symptoms of Drug Intoxication Withdrawal: No Have you been hit, kicked, punched, or otherwise hurt by someone within the past year? If so, by whom?: No Do you feel safe in your current relationship?: No Current Relationship Is there a partner from a previous relationship who is making you feel unsafe now?: No Are you made to feel afraid or neglected: No Are you DNR?: No Advance Directives: Yes Advance Directives Information Provided: Yes Advance Directives on File: Yes Advance Directives Date on File: 01/29/20 Do you have a plan to hurt others: No Plan Recently lost weight without trying: No How much weight loss: Not applicable Eating poorly because of decreased appetite: No Nutrition screen score: 0 Nutrition Risks: No Nutritional Risk Patient : No : No Poor oral hygiene: Yes (all teeth missing) service: No Current occupational status: unemployed Meds Allergies Allergy/AdvReac Type Severity Reaction Status Date / Time prednisone [PREDNISONE] Allergy Intermediate RASH Verified 08/19/24 15:24 Active Medications: Current Medications Acetaminophen (Acetaminophen 325 Mg Tablet) 975 mg PO Q6H COUNTS INCLUDE 234 BEDS AT THE [facility] Last Admin: 08/18/24 06:42 Dose: 975 mg Apixaban (Apixaban 5 Mg Tablet) 5 mg PO BID COUNTS INCLUDE 234 BEDS AT THE [facility] Last Admin: 08/18/24 07:47 Dose: 5 mg Calcium Carbonate (Calcium Carbonate 750 Mg Tab.Chew) 750 mg PO Q4H PRN PRN Reason: Heartburn Gabapentin (Gabapentin 100 Mg Capsule) 100 mg PO TID COUNTS INCLUDE 234 BEDS AT THE [facility] Last Admin: 08/18/24 07:48 Dose: 100 mg Glucose (Glucose Gel 15 Gm Gel..Gram.) 15 gm PO Q15M PRN; Protocol PRN Reason: per Hypoglycemia Standing Ord. Dextrose (D10) 250 mls @ 750 mls/hr IV Q15M PRN; Protocol PRN Reason: per Hypoglycemia Standing Ord. Piperacillin Sod/Tazobactam (Sod 3.375 gm/ Sodium Chloride) 50 mls @ 100 mls/hr IV Q6H COUNTS INCLUDE 234 BEDS AT THE [facility] Last Infusion: 08/18/24 07:29 Dose: Infused Vancomycin HCl 1,000 mg/ (Sodium Chloride) 270 mls @ 270 mls/hr IV Q12H COUNTS INCLUDE 234 BEDS AT THE [facility] Last Infusion: 08/18/24 09:53 Dose: Infused Insulin Glargine (Insulin Glargine,Hum.Rec.Anlog 100 Unit/Ml 10 Ml Vial) 30 unit SUBCUT BID COUNTS INCLUDE 234 BEDS AT THE [facility] Insulin Human Lispro (Insulin Lispro 100 Unit/Ml 3 Ml Vial) 0 unit SUBCUT QIDACHS COUNTS INCLUDE 234 BEDS AT THE [facility]; Protocol Last Admin: 08/18/24 07:47 Dose: 2 unit Magnesium Hydroxide (Milk Of Magnesia 30 Ml Oral.Susp) 30 ml PO DAILY PRN PRN Reason: Constipation Melatonin (Melatonin 3 Mg Tablet) 6 mg PO BEDTIME PRN PRN Reason: Insomnia Methadone HCl (Methadone Hcl 20 Mg/2 Ml Oral.Conc) 140 mg PO DAILY COUNTS INCLUDE 234 BEDS AT THE [facility] Morphine Sulfate (Morphine Sulfate 4 Mg/Ml Cartridge) 4 mg IVPUSH Q3H PRN; Protocol PRN Reason: Pain, Severe (Pain Scale 7-10) Last Admin: 08/18/24 10:58 Dose: 4 mg Nicotine (Nicotine 14 Mg Patch.Td24) 14 mg TRANSDERMA DAILY COUNTS INCLUDE 234 BEDS AT THE [facility] Last Admin: 08/18/24 07:48 Dose: 14 mg Ondansetron HCl (Ondansetron Hcl 4 Mg/2 Ml Vial) 4 mg IVPUSH Q8H PRN PRN Reason: Nausea and Vomiting Oxycodone HCl (Oxycodone Hcl Immed Release 5 Mg Tablet) 5 mg PO Q6H PRN PRN Reason: Pain, Moderate(Pain Scale 4-6) Pharmacy Consult (Consult Rx Vancomycin Dosing) 1 each MISCELLANE DAILY PRN PRN Reason: Consult order Sodium Chloride (0.9 % Sodium Chloride Flush 3 Ml Syringe) 3 ml IVFLUSH QSHIFT COUNTS INCLUDE 234 BEDS AT THE [facility] Last Admin: 08/18/24 07:31 Dose: 3 ml Home Medications ?Medication ?Instructions ?Recorded ?Confirmed ?Last Taken ?Type insulin glargine 100 unit/mL (3 40 unit subcut BID 11/28/22 08/18/24 08/15/24 History mL) subcutaneous pen (Lantus Solostar U-100 Insulin) atorvastatin 80 mg tablet 80 mg PO DAILY 02/26/24 08/18/24 08/15/24 History baclofen 10 mg tablet 10 mg PO TID 02/26/24 08/18/24 08/15/24 History duloxetine 30 mg capsule,delayed 30 mg PO DAILY 02/26/24 08/18/24 08/15/24 History release methadone 10 mg/mL oral 140 mg PO DAILY 02/27/24 08/18/24 08/14/24 History concentrate (Methadone Intensol) empagliflozin 25 mg tablet 25 mg PO DAILY 03/31/24 08/18/24 08/15/24 History (Jardiance) gabapentin 600 mg tablet 600 mg PO QID 03/31/24 08/18/24 08/15/24 History insulin lispro 100 unit/mL 1 sliding scale dose subcut TIDAC 03/31/24 08/18/24 08/15/24 History subcutaneous pen dulaglutide 0.75 mg/0.5 mL 0.75 mg subcut MO@0900 08/18/24 08/18/24 07/29/24 History subcutaneous pen injector (Trulicity) losartan 25 mg tablet 25 mg PO DAILY 08/18/24 08/18/24 08/15/24 History Physical Exam 2 Vital Signs: Vital Signs: Last Vital Signs Temp 97.3 F 08/18/24 11:29 Pulse 95 08/18/24 11:29 Resp 16 08/18/24 11:29 BP 112/64 08/18/24 11:29 Pulse Ox 93 08/18/24 11:29 O2 Del Method Room Air 08/18/24 11:29 BMI result Body Mass Index 31.2 Const: Other: Does state she was pain in the left leg General: no acute distress Resp: Effort & Inspection: normal respiratory effort Cardio: Rate: regular rate GI: Palpation (GI): Soft to palpation and not firm Extrem: Other: Note of a large dry eschar on the posterior aspect of the left lower leg, about 12 cm in length, patchy areas of similar small eschars on the left leg as well as the right BKA stump Results Labs 08/18/24 05:45 08/19/24 13:51 Labs: Abnormal lab results 08/17/24 08/17/24 08/18/24 Range/Units 17:51 18:50 00:17 WBC (4.8-10.8) X10*3/uL RBC (4.20-5.50) X10*6/uL Hgb (12.0-16.0) g/dl Hct (37.0-47.0) % MCH 26.8 L (27.0-33.0) pg Plt Count (160-400) X10*3/uL Immature Gran % (Auto) 0.5 H (0.0-0.4) % Neut % (Auto) 81.4 H (45-73) % Lymph % (Auto) 10.2 L (20-40) % Lymph # (Auto) 1.1 L (1.2-4.9) X10*3/uL Abs Immat Gran (auto) 0.05 H (0.00-0.03) X10*3/uL Absolute Neuts (auto) 8.8 H (2.0-8.3) x10*3/uL Sodium 132 L (135-145) mmol/L Chloride 95 L (96-108) mmol/L POC Glucose 359 H* 117 H (60-115) mg/dL Random Glucose 352 H* (60-115) mg/dL Calcium (8.4-10.2) mg/dL AST 35 H (5-31) U/L Albumin 2.8 L (3.5-5.0) g/dL 08/18/24 08/18/24 08/18/24 Range/Units 05:45 07:42 11:03 WBC 11.1 H (4.8-10.8) X10*3/uL RBC 3.91 L (4.20-5.50) X10*6/uL Hgb 10.3 L (12.0-16.0) g/dl Hct 32.5 L (37.0-47.0) % MCH 26.3 L (27.0-33.0) pg Plt Count 401 H (160-400) X10*3/uL Immature Gran % (Auto) (0.0-0.4) % Neut % (Auto) 73.4 H (45-73) % Lymph % (Auto) 15.7 L (20-40) % Lymph # (Auto) (1.2-4.9) X10*3/uL Abs Immat Gran (auto) 0.04 H (0.00-0.03) X10*3/uL Absolute Neuts (auto) (2.0-8.3) x10*3/uL Sodium (135-145) mmol/L Chloride (96-108) mmol/L POC Glucose 180 H 150 H (60-115) mg/dL Random Glucose 184 H (60-115) mg/dL Calcium 8.1 L D (8.4-10.2) mg/dL AST (5-31) U/L Albumin (3.5-5.0) g/dL Short CBC 08/17/24 08/18/24 Range/Units 18:50 05:45 WBC 10.8 11.1 H (4.8-10.8) X10*3/uL Hgb 12.0 10.3 L (12.0-16.0) g/dl Hct 37.0 32.5 L (37.0-47.0) % Plt Count 367 401 H (160-400) X10*3/uL BMP 08/17/24 08/18/24 18:50 05:45 Sodium 132 L 136 Potassium 4.3 3.3 D Chloride 95 L 99 Carbon Dioxide 28 28 BUN 11 12 Creatinine 0.76 0.70 Calcium 8.7 8.1 L D Liver Function 08/17/24 Range/Units 18:50 Total Bilirubin 0.2 (0.0-1.0) mg/dL AST 35 H (5-31) U/L ALT 8 (0-31) U/L Alkaline Phosphatase 97 (39-117) U/L Albumin 2.8 L (3.5-5.0) g/dL All other labs normal. Assessment and Plan (1) Eschar of lower leg: Status: Acute She says pain with cellulitis of the left lower leg. Examination shows a large area with dry eschar as described above I explained to her that it may be best to sharp excisional debridement. I had attempted to do a little of this at bedside but she could not tolerate because of the pain I explained to her that we may have to do the excisional debridement under anesthesia in the operating room. I explained to her what to expect postoperatively. She will have a large open wound that will require intensive wound care She had a previous noninvasive vascular testing in the past and had been previously seen by Dr. Ferrell. I will try to do the debridement in the OR tomorrow. Procedures Date of Service Date of Service: 08/19/24
[2024-08-18] MEDS: Insulin Glargine,Hum.rec.anlog 100 UNIT/ML 10 ML VIAL 30 UNIT SUBCUT ×2 (11:59→21:52)
[2024-08-18] MEDS: methADONE HCl 20 MG/2 ML ORAL.CONC 140 MG PO (12:02)
--- NOTE | 2024-08-18 13:36 | PHA.MEDREC ---
Addendum entered by Diana Perez RPh 08/18/24 13:46: reviewed by [facility]. Original Note: Pharmacy Consult ? Medication Reconciliation Pharmacy has completed the medication reconciliation. Spoke to the patient to confirm meds. Pt reports no longer being on metformin.
[2024-08-18] MEDS: Baclofen 10 MG TABLET PO ×2 (15:38→20:12)
[2024-08-18 16:34] LABS: Glucose, Whole Blood 267 mg/dL (60-115)
[2024-08-18 18:58] LABS: Vancomycin Random 10.1 mcg/mL (15-20)
[2024-08-18] MEDS: ALPRAZolam 0.5 MG TABLET PO (20:12)
[2024-08-18 20:45] LABS: Glucose, Whole Blood 225 mg/dL (60-115)
[2024-08-19] VITALS (16 sets, daily range): BP systolic 103–144; BP diastolic 57–81; PULSE 80–98; RESP 15–24; TEMP 36.3–37.2; O2SAT 93–99
[2024-08-19] MEDS: Piperacillin Sodium/Tazobactam 3.375 GM in 0.9 % Sodium Chloride 50 ML IV ×4 (01:26→19:27)
[2024-08-19] MEDS: Morphine Sulfate 4 MG/ML CARTRIDGE IVPUSH ×5 (02:49→21:24)
[2024-08-19 07:39] LABS: Glucose, Whole Blood 102 mg/dL (60-115)
--- NOTE | 2024-08-19 08:03 | PM.PNGS ---
Subjective Subjective Date of Service: 08/19/24 Interval history: Complains of pain on left leg Anxious about debridement No events overnight Physical Exam Vital Signs: Vital Signs: Last Vital Signs Temp 97.5 F 08/19/24 07:17 Pulse 94 08/19/24 07:17 Resp 18 08/19/24 07:17 BP 131/63 08/19/24 07:17 Pulse Ox 95 08/19/24 07:17 O2 Del Method Room Air 08/19/24 07:17 BMI result Body Mass Index 31.2 Const: Other: Appears anxious General: no acute distress Resp: Effort & Inspection: normal respiratory effort Cardio: Rate: regular rate Extrem: Other: Left leg with large eschar on posterior aspect, tenderness Objective Data Active Medications Acetaminophen (Acetaminophen 325 Mg Tablet) 975 mg PO Q6H [facility] Last Admin: 08/19/24 05:43 Dose: Not Given Documented By: JENNIFER Non-Admin Reason: NPO Alprazolam (Alprazolam 0.5 Mg Tablet) 0.5 mg PO BEDTIME PRN PRN Reason: Anxiety Last Admin: 08/18/24 20:12 Dose: 0.5 mg Documented By: JENNIFER Apixaban (Apixaban 5 Mg Tablet) 5 mg PO BID [facility] Last Admin: 08/18/24 18:18 Dose: Not Given Documented By: CARLO Non-Admin Reason: hold per Dr. Chaudhari possible procedure Atorvastatin Calcium (Atorvastatin Calcium 80 Mg Tablet) 80 mg PO DAILY [facility] Baclofen (Baclofen 10 Mg Tablet) 10 mg PO TID [facility] Last Admin: 08/18/24 20:12 Dose: 10 mg Documented By: JENNIFER Calcium Carbonate (Calcium Carbonate 750 Mg Tab.Chew) 750 mg PO Q4H PRN PRN Reason: Heartburn Duloxetine HCl (Duloxetine Hcl 30 Mg Capsule.) 30 mg PO DAILY [facility] Empagliflozin (Empagliflozin 25 Mg Tablet) 25 mg PO DAILY [facility] Gabapentin (Gabapentin 100 Mg Capsule) 100 mg PO TID [facility] Last Admin: 08/18/24 20:12 Dose: 100 mg Documented By: JENNIFER Glucose (Glucose Gel 15 Gm Gel..Gram.) 15 gm PO Q15M PRN; Protocol PRN Reason: per Hypoglycemia Standing Ord. Dextrose (D10) 250 mls @ 750 mls/hr IV Q15M PRN; Protocol PRN Reason: per Hypoglycemia Standing Ord. Piperacillin Sod/Tazobactam (Sod 3.375 gm/ Sodium Chloride) 50 mls @ 100 mls/hr IV Q6H [facility] Last Infusion: 08/19/24 06:45 Dose: Infused Documented By: JENNIFER Vancomycin HCl 1,000 mg/ (Sodium Chloride) 270 mls @ 270 mls/hr IV Q12H [facility] Last Infusion: 08/18/24 21:39 Dose: Infused Documented By: JENNIFER Insulin Glargine (Insulin Glargine,Hum.Rec.Anlog 100 Unit/Ml 10 Ml Vial) 30 unit SUBCUT BID [facility] Last Admin: 08/18/24 21:52 Dose: 30 unit Documented By: JENNIFER Insulin Human Lispro (Insulin Lispro 100 Unit/Ml 3 Ml Vial) 0 unit SUBCUT QIDACHS [facility]; Protocol Last Admin: 08/19/24 07:40 Dose: Not Given Documented By: MAYELA Non-Admin Reason: No Insulin Coverage Losartan Potassium (Losartan Potassium 25 Mg Tablet) 25 mg PO DAILY [facility]; Protocol Magnesium Hydroxide (Milk Of Magnesia 30 Ml Oral.Susp) 30 ml PO DAILY PRN PRN Reason: Constipation Melatonin (Melatonin 3 Mg Tablet) 6 mg PO BEDTIME PRN PRN Reason: Insomnia Methadone HCl (Methadone Hcl 20 Mg/2 Ml Oral.Conc) 140 mg PO DAILY [facility] Last Admin: 08/18/24 12:02 Dose: 140 mg Documented By: CARLO Co-signed By: NNEKA Morphine Sulfate (Morphine Sulfate 4 Mg/Ml Cartridge) 4 mg IVPUSH Q3H PRN; Protocol PRN Reason: Pain, Severe (Pain Scale 7-10) Last Admin: 08/19/24 05:56 Dose: 4 mg Documented By: JENNIFER Nicotine (Nicotine 14 Mg Patch.Td24) 14 mg TRANSDERMA DAILY [facility] Last Admin: 08/18/24 07:48 Dose: 14 mg Documented By: CARLO Non-Formulary Medication (Dulaglutide [Trulicity]) 0.75 mg SUBCUT MO@0900 [facility] Ondansetron HCl (Ondansetron Hcl 4 Mg/2 Ml Vial) 4 mg IVPUSH Q8H PRN PRN Reason: Nausea and Vomiting Oxycodone HCl (Oxycodone Hcl Immed Release 5 Mg Tablet) 5 mg PO Q6H PRN PRN Reason: Pain, Moderate(Pain Scale 4-6) Pharmacy Consult (Consult Rx Vancomycin Dosing) 1 each MISCELLANE DAILY PRN PRN Reason: Consult order Sodium Chloride (0.9 % Sodium Chloride Flush 3 Ml Syringe) 3 ml IVFLUSH QSHIFT [facility] Last Admin: 08/19/24 00:20 Dose: Not Given Documented By: JENNIFER Non-Admin Reason: Previously Administered Labs 08/18/24 05:45 08/18/24 05:45 Labs: Laboratory Results - last 24 hr 08/18/24 08/18/24 08/18/24 11:03 16:02 18:10 Hold Purple Top SEE NOTE POC Glucose 150 H 267 H Random Vancomycin 08/18/24 08/18/24 08/19/24 18:13 20:35 07:08 Hold Purple Top POC Glucose 225 H 102 Random Vancomycin 10.1 L Microbiology Microbiology Results: Microbiology 08/17/24 20:52 Blood Culture - Preliminary Blood - Venous No growth after 24 hours. 08/17/24 18:50 Blood Culture - Preliminary Blood - Venous No growth after 24 hours. Procedures Date of Service Date of Service: 08/19/24 Progress Note: A&P Assessment and plan (1) Eschar of lower leg: Status: Acute Assessment and Plan: For excisional debridement in the OR today I explained to her the technique of procedure I reviewed the risks including but not limited to bleeding, infections, poor healing, need for intensive wound care, postop pain She has given consent Time Spent With Patient Time: Total time managing care of this patient today ____ minutes. Quality Stroke Does the patient have a stroke diagnosis?: No VTE Prior VTE?: Yes VTE Risk Level:: Medical - moderate - high VTE Device Contraindication: Treatment Not Indicated VTE Drug Contraindication: N/A - Med Ordered
[2024-08-19] MEDS: vancomycin HCL 1,000 MG in 0.9 % Sodium Chloride 250 ML 270 MG IV (08:59)
[2024-08-19] MEDS: Atorvastatin Calcium 80 MG TABLET PO (09:06)
[2024-08-19] MEDS: Empagliflozin 25 MG TABLET PO (09:06)
[2024-08-19] MEDS: Losartan Potassium 25 MG TABLET PO (09:07)
[2024-08-19] MEDS: Baclofen 10 MG TABLET PO ×2 (09:07→20:22)
[2024-08-19] MEDS: Nicotine 14 MG PATCH.TD24 TRANSDERMA (09:07)
[2024-08-19] MEDS: Gabapentin 100 MG CAPSULE PO ×2 (09:07→20:22)
[2024-08-19] MEDS: 0.9 % Sodium Chloride Flush 3 ML SYRINGE IVFLUSH (09:08)
--- NOTE | 2024-08-19 09:09 | HO.PM.IMPN ---
Subjective Subjective Date of Service: 08/19/24 Interval History: Still with pain in the leg Physical Exam Vital Signs: Vital Signs: Last Vital Signs Temp 97.5 F 08/19/24 07:17 Pulse 94 08/19/24 07:17 Resp 18 08/19/24 07:17 BP 131/63 08/19/24 07:17 Pulse Ox 95 08/19/24 07:17 O2 Del Method Room Air 08/19/24 07:17 BMI result Body Mass Index 31.2 General: AO X 3, no acute distress Resp: CTA bilateral CVS: S1,S2,RRR GI: +BS, NT, no distention Skin: No rash back of left leg left leg Neuro: motor grossly intact Psych: appropriate affect Objective Data Active Medications Acetaminophen (Acetaminophen 325 Mg Tablet) 975 mg PO Q6H REPLACED BY [facility] Last Admin: 08/19/24 05:43 Dose: Not Given Documented By: JENNIFER Non-Admin Reason: NPO Alprazolam (Alprazolam 0.5 Mg Tablet) 0.5 mg PO BEDTIME PRN PRN Reason: Anxiety Last Admin: 08/18/24 20:12 Dose: 0.5 mg Documented By: JENNIFER Apixaban (Apixaban 5 Mg Tablet) 5 mg PO BID REPLACED BY [facility] Last Admin: 08/18/24 18:18 Dose: Not Given Documented By: CARLO Non-Admin Reason: hold per Dr. Chaudhari possible procedure Atorvastatin Calcium (Atorvastatin Calcium 80 Mg Tablet) 80 mg PO DAILY REPLACED BY [facility] Baclofen (Baclofen 10 Mg Tablet) 10 mg PO TID REPLACED BY [facility] Last Admin: 08/18/24 20:12 Dose: 10 mg Documented By: JENNIFER Calcium Carbonate (Calcium Carbonate 750 Mg Tab.Chew) 750 mg PO Q4H PRN PRN Reason: Heartburn Duloxetine HCl (Duloxetine Hcl 30 Mg Capsule.) 30 mg PO DAILY REPLACED BY [facility] Empagliflozin (Empagliflozin 25 Mg Tablet) 25 mg PO DAILY REPLACED BY [facility] Gabapentin (Gabapentin 100 Mg Capsule) 100 mg PO TID REPLACED BY [facility] Last Admin: 08/18/24 20:12 Dose: 100 mg Documented By: JENNIFER Glucose (Glucose Gel 15 Gm Gel..Gram.) 15 gm PO Q15M PRN; Protocol PRN Reason: per Hypoglycemia Standing Ord. Dextrose (D10) 250 mls @ 750 mls/hr IV Q15M PRN; Protocol PRN Reason: per Hypoglycemia Standing Ord. Piperacillin Sod/Tazobactam (Sod 3.375 gm/ Sodium Chloride) 50 mls @ 100 mls/hr IV Q6H REPLACED BY [facility] Last Infusion: 08/19/24 06:45 Dose: Infused Documented By: JENNIFER Vancomycin HCl 1,000 mg/ (Sodium Chloride) 270 mls @ 270 mls/hr IV Q12H REPLACED BY [facility] Last Infusion: 08/18/24 21:39 Dose: Infused Documented By: JENNIFER Insulin Glargine (Insulin Glargine,Hum.Rec.Anlog 100 Unit/Ml 10 Ml Vial) 30 unit SUBCUT BID REPLACED BY [facility] Last Admin: 08/18/24 21:52 Dose: 30 unit Documented By: JENNIFER Insulin Human Lispro (Insulin Lispro 100 Unit/Ml 3 Ml Vial) 0 unit SUBCUT QIDACHS REPLACED BY [facility]; Protocol Last Admin: 08/19/24 07:40 Dose: Not Given Documented By: MAYELA Non-Admin Reason: No Insulin Coverage Losartan Potassium (Losartan Potassium 25 Mg Tablet) 25 mg PO DAILY REPLACED BY [facility]; Protocol Magnesium Hydroxide (Milk Of Magnesia 30 Ml Oral.Susp) 30 ml PO DAILY PRN PRN Reason: Constipation Melatonin (Melatonin 3 Mg Tablet) 6 mg PO BEDTIME PRN PRN Reason: Insomnia Methadone HCl (Methadone Hcl 20 Mg/2 Ml Oral.Conc) 140 mg PO DAILY REPLACED BY [facility] Last Admin: 08/18/24 12:02 Dose: 140 mg Documented By: CARLO Co-signed By: NNEKA Morphine Sulfate (Morphine Sulfate 4 Mg/Ml Cartridge) 4 mg IVPUSH Q3H PRN; Protocol PRN Reason: Pain, Severe (Pain Scale 7-10) Last Admin: 08/19/24 05:56 Dose: 4 mg Documented By: JENNIFER Nicotine (Nicotine 14 Mg Patch.Td24) 14 mg TRANSDERMA DAILY REPLACED BY [facility] Last Admin: 08/18/24 07:48 Dose: 14 mg Documented By: CARLO Ondansetron HCl (Ondansetron Hcl 4 Mg/2 Ml Vial) 4 mg IVPUSH Q8H PRN PRN Reason: Nausea and Vomiting Oxycodone HCl (Oxycodone Hcl Immed Release 5 Mg Tablet) 5 mg PO Q6H PRN PRN Reason: Pain, Moderate(Pain Scale 4-6) Pharmacy Consult (Consult Rx Vancomycin Dosing) 1 each MISCELLANE DAILY PRN PRN Reason: Consult order Sodium Chloride (0.9 % Sodium Chloride Flush 3 Ml Syringe) 3 ml IVFLUSH QSHIFT [facility]ADA Last Admin: 08/19/24 00:20 Dose: Not Given Documented By: JENNIFER Non-Admin Reason: Previously Administered Labs 08/18/24 05:45 08/18/24 05:45 Labs: Laboratory Results - last 24 hr 08/18/24 08/18/24 08/18/24 11:03 16:02 18:10 Hold Purple Top SEE NOTE POC Glucose 150 H 267 H Random Vancomycin 08/18/24 08/18/24 08/19/24 18:13 20:35 07:08 Hold Purple Top POC Glucose 225 H 102 Random Vancomycin 10.1 L Microbiology Microbiology Results: Microbiology 08/17/24 20:52 Blood Culture - Preliminary Blood - Venous No growth after 24 hours. 08/17/24 18:50 Blood Culture - Preliminary Blood - Venous No growth after 24 hours. 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 intractable pain secondary to PAD vs neuropathy vs cellulitis -continue empiric zosyn and vanco for now -pain control with neurontin, morphine, oxycodone -for surgical debridment in OR today hyperglycemia due to T2DM on insulin - continue lantus 30 bid (40 bid at home) -hold metformin, continue jardiance - SSI - diabetic diet obesity - BMI 31.2 - weight loss encouraged Opioid use disorde -resume Methadone once dose confirmed nicotine dependence - smoking cessation discussed and encouraged - nicotine patch hx DVT/PE - continue eliquis, hold before debridment full code VTE prophy: eliquis inpatient for possible cellulitis and need for wound debridment Quality Stroke Does the patient have a stroke diagnosis?: No VTE Prior VTE?: Yes VTE Risk Level:: Medical - moderate - high VTE Device Contraindication: Treatment Not Indicated VTE Drug Contraindication: N/A - Med Ordered
--- NOTE | 2024-08-19 09:44 | HO.WOUND ---
Wound Consult: Defer to [facility] Surgery Wound consult received for Right residual leg and LLE will defer topical orders to general surgery team at this time. TT to provider to reconsult should topical orders be needed from inpatient wound care nurse.
[2024-08-19] MEDS: methADONE HCl 20 MG/2 ML ORAL.CONC 140 MG PO (10:44)
[2024-08-19 11:37] LABS: Glucose, Whole Blood 69 mg/dL (60-115)
[2024-08-19] MEDS: Dextrose 5 % and Lactated Ring 1,000 ML 80 ML IVCONT (12:07)
[2024-08-19 12:23] LABS: Glucose, Whole Blood 105 mg/dL (60-115)
[2024-08-19] MEDS: Acetaminophen 325 MG TABLET 975 MG PO (13:01)
--- NOTE | 2024-08-19 13:26 | MHC.CM.PN ---
PER MD ROUNDS, PT NOT MEDICALLY CLEARED, PLAN FOR DEBRIDEMENT TODAY DCP REMAINS HOME WITH RESUMPTION OF [facility] FOR [facility]ETHADONE DELIVERY BLS TRANSPORT
--- NOTE | 2024-08-19 13:31 | MHC.CLN ---
NUTRITION CONSULT FOR WOUNDS. SCHEDULED TODY FOR DEBRIDEMENT OF RIGHT STUMP AND LEFT LOWER LEG. PI TO COCCYX NOTED, BUT NO ADDITIONAL INFORMATION AT TIME OF REVIEW. CURRENTLY NPO FOR PROCEDURE. RECOMMEND DIABETIC 1800 KCAL DIET WHEN ABLE.
[2024-08-19 14:16] LABS: Estimated Glomerular Filt Rate > 60
[2024-08-19] MEDS: Dextrose 5 % 250 ML 999 ML IV (15:39)
--- NOTE | 2024-08-19 15:39 | PC.NURSE ---
Dr. Garduno made aware of preop blood sugar of 73. Patient very sleepy. New order for Dextrose IV, see orders.
--- NOTE | 2024-08-19 15:42 | ECG_ITS ---
Test Reason : inverted t waves Blood Pressure : */* mmHG Vent. Rate : 81 BPM Atrial Rate : 81 BPM P-R Int : 130 ms QRS Dur : 94 ms QT Int : 452 ms P-R-T Axes : 58 14 179 degrees QTcB Int : 525 ms Normal sinus rhythm T wave abnormality, consider inferior ischemia T wave abnormality, consider anterolateral ischemia Prolonged QT Abnormal ECG When compared with ECG of 30-Mar-2024 22:19, T wave inversion now evident in Inferior leads T wave inversion now evident in Anterior leads Referred By: Netta Garduno Electronically Signed By: Bautista Norman
[2024-08-19 15:48] LABS: Glucose, Whole Blood 74 mg/dL (60-115)
--- NOTE | 2024-08-19 16:04 | P.CONAN_ITS ---
[facility] Active Problems Active Problems: All Active Problems Eschar of lower leg (Acute) Intractable pain (Acute) Peripheral arterial disease (Chronic) Obesity (BMI 30.0-34.9) (Chronic) Hyperglycemia due to diabetes mellitus (Acute) Infected wound (Acute) Overdose (Acute) Pneumonia (Acute) Cellulitis (Acute) Hyperglycemia due to type 2 diabetes mellitus (Acute) Pulmonary nodules (Acute) Pneumonitis (Acute) Bilateral pulmonary embolism (Acute) Osteomyelitis (Acute) NSTEMI (non-ST elevated myocardial infarction) (Acute) Acute respiratory failure with hypoxia (Acute) DVT (deep venous thrombosis) (Acute) Demand ischemia (Acute) MRSA bacteremia (Acute) Open wound of foot (Acute) Past Medical History Medical History Eschar of lower leg Obesity (BMI 30.0-34.9) Hyperglycemia due to type 2 diabetes mellitus 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 Diabetic ulcer of lower leg Peripheral arterial disease Pulmonary nodules Chronic respiratory failure Pneumonitis Obesity (BMI 35.0-39.9 without comorbidity) Acute respiratory failure with hypoxia NSTEMI (non-ST elevated myocardial infarction) Opioid use disorder Osteomyelitis Diabetes Anxiety Substance abuse Functional capacity: wheelchair bound Patient : No Family History Family history of problems with anesthesia: No Surgical History Surgical History Hx of right BKA S/P amputation of foot Status post transmetatarsal amputation of right foot (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) History of Problems with Anesthesia: No Social History Social History Household Members: Other Household Members Other:: friend Housing: Apartment Are you a primary home care and home health aides teacher to a significant other at home: No Do you presently have visiting nurse or other home services: No Unable to assess alcohol history related to: Unable to respond Alcohol intake: never Comment: took socks off Patient Tobacco Use Status: Former Tobacco user Tobacco use type: Cigarette Cigarette Packs Per Day: 0 Cigarettes Per Day: 1 Years Smoked: 40 Smoked in Last 30 Days: No e-Cigarette/Vaping Use: Currently Using Second Hand Smoke Exposure: No Use of substances other than those prescribed or required for medical reasons: Yes Substance Use Type: Marijuana Substance Use Frequency: Occasionally Currently Displaying Signs/Symptoms of Drug Intoxication Withdrawal: No Have you been hit, kicked, punched, or otherwise hurt by someone within the past year? If so, by whom?: No Do you feel safe in your current relationship?: No Current Relationship Is there a partner from a previous relationship who is making you feel unsafe now?: No Are you made to feel afraid or neglected: No Are you DNR?: No Advance Directives: Yes Advance Directives Information Provided: Yes Advance Directives on File: Yes Advance Directives Date on File: 01/29/20 Do you have a plan to hurt others: No Plan Recently lost weight without trying: No How much weight loss: Not applicable Eating poorly because of decreased appetite: No Nutrition screen score: 0 Nutrition Risks: No Nutritional Risk Patient : No : No Poor oral hygiene: Yes (all teeth missing) service: No Current occupational status: unemployed Meds Allergies Allergy/AdvReac Type Severity Reaction Status Date / Time prednisone [PREDNISONE] Allergy Intermediate RASH Verified 08/19/24 15:24 Active Medications: Current Medications Acetaminophen (Acetaminophen 325 Mg Tablet) 975 mg PO Q6H PENDING SALE TO [facility] Last Admin: 08/19/24 13:01 Dose: 975 mg Alprazolam (Alprazolam 0.5 Mg Tablet) 0.5 mg PO BEDTIME PRN PRN Reason: Anxiety Last Admin: 08/18/24 20:12 Dose: 0.5 mg Apixaban (Apixaban 5 Mg Tablet) 5 mg PO BID [facility]ENDING SALE TO [facility] Last Admin: 08/18/24 18:18 Dose: Not Given Atorvastatin Calcium (Atorvastatin Calcium 80 Mg Tablet) 80 mg PO DAILY [facility]END[facility] Last Admin: 08/19/24 09:06 Dose: 80 mg Baclofen (Baclofen 10 Mg Tablet) 10 mg PO TID [facility] Last Admin: 08/19/24 09:07 Dose: 10 mg Calcium Carbonate (Calcium Carbonate 750 Mg Tab.Chew) 750 mg PO Q4H PRN PRN Reason: Heartburn Duloxetine HCl (Duloxetine Hcl 30 Mg Capsule.Dr) 30 mg PO DAILY [facility]ENDING SALE TO [facility] Last Admin: 08/19/24 12:08 Dose: Not Given Empagliflozin (Empagliflozin 25 Mg Tablet) 25 mg PO DAILY [facility] Last Admin: 08/19/24 09:06 Dose: 25 mg Gabapentin (Gabapentin 100 Mg Capsule) 100 mg PO TID [facility] Last Admin: 08/19/24 09:07 Dose: 100 mg Glucose (Glucose Gel 15 Gm Gel..Gram.) 15 gm PO Q15M PRN; Protocol PRN Reason: per Hypoglycemia Standing Ord. Dextrose (D10) 250 mls @ 750 mls/hr IV Q15M PRN; Protocol PRN Reason: per Hypoglycemia Standing Ord. Piperacillin Sod/Tazobactam (Sod 3.375 gm/ Sodium Chloride) 50 mls @ 100 mls/hr IV Q6H PENDING SALE TO [facility] Last Infusion: 08/19/24 13:47 Dose: Infused Vancomycin HCl 1,000 mg/ (Sodium Chloride) 270 mls @ 270 mls/hr IV Q12H PENDING SALE TO [facility] Last Infusion: 08/19/24 09:59 Dose: Infused Dextrose/Lactated Ringer's (D5lr) 1,000 mls @ 80 mls/hr IVCONT .[id number] PENDING SALE TO [facility] Last Infusion: 08/19/24 15:10 Dose: 0 mls/hr Dextrose (D5w) 250 mls @ 0 mls/hr IV .Q0M PENDING SALE TO [facility] Insulin Glargine (Insulin Glargine,Hum.Rec.Anlog 100 Unit/Ml 10 Ml Vial) 30 unit SUBCUT BID PENDING SALE TO [facility] Last Admin: 08/19/24 09:18 Dose: Not Given Insulin Human Lispro (Insulin Lispro 100 Unit/Ml 3 Ml Vial) 0 unit SUBCUT QIDACHS PENDING SALE TO [facility]; Protocol Last Admin: 08/19/24 11:45 Dose: Not Given Losartan Potassium (Losartan Potassium 25 Mg Tablet) 25 mg PO DAILY PENDING SALE TO [facility]; Protocol Last Admin: 08/19/24 09:07 Dose: 25 mg Magnesium Hydroxide (Milk Of Magnesia 30 Ml Oral.Susp) 30 ml PO DAILY PRN PRN Reason: Constipation Melatonin (Melatonin 3 Mg Tablet) 6 mg PO BEDTIME PRN PRN Reason: Insomnia Methadone HCl (Methadone Hcl 20 Mg/2 Ml Oral.Conc) 140 mg PO DAILY PENDING SALE TO [facility] Last Admin: 08/19/24 10:44 Dose: 140 mg Morphine Sulfate (Morphine Sulfate 4 Mg/Ml Cartridge) 4 mg IVPUSH Q3H PRN; Protocol PRN Reason: Pain, Severe (Pain Scale 7-10) Last Admin: 08/19/24 13:01 Dose: 4 mg Nicotine (Nicotine 14 Mg Patch.Td24) 14 mg TRANSDERMA DAILY PENDING SALE TO [facility] Last Admin: 08/19/24 09:07 Dose: 14 mg Ondansetron HCl (Ondansetron Hcl 4 Mg/2 Ml Vial) 4 mg IVPUSH Q8H PRN PRN Reason: Nausea and Vomiting Oxycodone HCl (Oxycodone Hcl Immed Release 5 Mg Tablet) 5 mg PO Q6H PRN PRN Reason: Pain, Moderate(Pain Scale 4-6) Pharmacy Consult (Consult Rx Vancomycin Dosing) 1 each MISCELLANE DAILY PRN PRN Reason: Consult order Sodium Chloride (0.9 % Sodium Chloride Flush 3 Ml Syringe) 3 ml IVFLUSH [facility] Last Admin: 08/19/24 15:10 Dose: Not Given Home Medications ?Medication ?Instructions ?Recorded ?Confirmed ?Last Taken ?Type insulin glargine 100 unit/mL (3 40 unit subcut BID 11/28/22 08/18/24 08/15/24 History mL) subcutaneous pen (Lantus Solostar U-100 Insulin) atorvastatin 80 mg tablet 80 mg PO DAILY 02/26/24 08/18/24 08/15/24 History baclofen 10 mg tablet 10 mg PO TID 02/26/24 08/18/24 08/15/24 History duloxetine 30 mg capsule,delayed 30 mg PO DAILY 02/26/24 08/18/24 08/15/24 History release methadone 10 mg/mL oral 140 mg PO DAILY 02/27/24 08/18/24 08/14/24 History concentrate (Methadone Intensol) empagliflozin 25 mg tablet 25 mg PO DAILY 03/31/24 08/18/24 08/15/24 History (Jardiance) gabapentin 600 mg tablet 600 mg PO QID 03/31/24 08/18/24 08/15/24 History insulin lispro 100 unit/mL 1 sliding scale dose subcut TIDAC 03/31/24 08/18/24 08/15/24 History subcutaneous pen dulaglutide 0.75 mg/0.5 mL 0.75 mg subcut MO@0900 08/18/24 08/18/24 07/29/24 History subcutaneous pen injector (Trulicity) losartan 25 mg tablet 25 mg PO DAILY 08/18/24 08/18/24 08/15/24 History Exam Height,Weight and Vital Signs: Height 5 ft 6 in Weight 87.7 kg Last Vital Signs Temp 98.7 F 08/19/24 15:25 Pulse 86 08/19/24 15:25 Resp 16 08/19/24 15:25 BP 108/57 L 08/19/24 15:25 Pulse Ox 95 08/19/24 15:25 O2 Del Method Room Air 08/19/24 15:25 Pertinent Lab Results Pertinent Lab Results: Laboratory Tests 08/17/24 08/17/24 08/18/24 17:51 18:50 00:17 WBC 10.8 RBC 4.48 Hgb 12.0 Hct 37.0 MCV 82.6 MCH 26.8 L MCHC 32.4 RDW 14.5 Plt Count 367 MPV 9.7 Immature Gran % (Auto) 0.5 H Neut % (Auto) 81.4 H Lymph % (Auto) 10.2 L Churchill % (Auto) 6.5 Eos % (Auto) 0.8 Baso % (Auto) 0.6 Lymph # (Auto) 1.1 L Churchill # (Auto) 0.7 Eos # (Auto) 0.1 Baso # (Auto) 0.1 Abs Immat Gran (auto) 0.05 H Absolute Neuts (auto) 8.8 H Absolute Nucleated RBC 0.000 Nucleated RBC % (auto) 0.0 Hold Purple Top Sodium 132 L Potassium 4.3 Chloride 95 L Carbon Dioxide 28 Anion Gap 13 BUN 11 Creatinine 0.76 Estim Creat Clear Calc 94.4 Estimated GFR > 60 POC Glucose 359 H* 117 H Random Glucose 352 H* Lactic Acid 2.0 Calcium 8.7 Total Bilirubin 0.2 AST 35 H ALT 8 Alkaline Phosphatase 97 Total Protein 7.3 Albumin 2.8 L Random Vancomycin 08/18/24 08/18/24 08/18/24 05:45 07:42 11:03 WBC 11.1 H RBC 3.91 L Hgb 10.3 L Hct 32.5 L MCV 83.1 MCH 26.3 L MCHC 31.7 RDW 14.7 Plt Count 401 H MPV 10.0 Immature Gran % (Auto) 0.4 Neut % (Auto) 73.4 H Lymph % (Auto) 15.7 L Churchill % (Auto) 7.9 Eos % (Auto) 2.1 Baso % (Auto) 0.5 Lymph # (Auto) 1.7 Churchill # (Auto) 0.9 Eos # (Auto) 0.2 Baso # (Auto) 0.1 Abs Immat Gran (auto) 0.04 H Absolute Neuts (auto) 8.1 Absolute Nucleated RBC 0.000 Nucleated RBC % (auto) 0.0 Hold Purple Top Sodium 136 Potassium 3.3 D Chloride 99 Carbon Dioxide 28 Anion Gap 12 BUN 12 Creatinine 0.70 Estim Creat Clear Calc 102.4 Estimated GFR > 60 POC Glucose 180 H 150 H Random Glucose 184 H Lactic Acid Calcium 8.1 L D Total Bilirubin AST ALT Alkaline Phosphatase Total Protein Albumin Random Vancomycin 08/18/24 08/18/24 08/18/24 16:02 18:10 18:13 WBC RBC Hgb Hct MCV MCH MCHC RDW Plt Count MPV Immature Gran % (Auto) Neut % (Auto) Lymph % (Auto) Churchill % (Auto) Eos % (Auto) Baso % (Auto) Lymph # (Auto) Churchill # (Auto) Eos # (Auto) Baso # (Auto) Abs Immat Gran (auto) Absolute Neuts (auto) Absolute Nucleated RBC Nucleated RBC % (auto) Hold Purple Top SEE NOTE Sodium Potassium Chloride Carbon Dioxide Anion Gap BUN Creatinine Estim Creat Clear Calc Estimated GFR POC Glucose 267 H Random Glucose Lactic Acid Calcium Total Bilirubin AST ALT Alkaline Phosphatase Total Protein Albumin Random Vancomycin 10.1 L 08/18/24 08/19/24 08/19/24 20:35 07:08 11:20 WBC RBC Hgb Hct MCV MCH MCHC RDW Plt Count MPV Immature Gran % (Auto) Neut % (Auto) Lymph % (Auto) Churchill % (Auto) Eos % (Auto) Baso % (Auto) Lymph # (Auto) Churchill # (Auto) Eos # (Auto) Baso # (Auto) Abs Immat Gran (auto) Absolute Neuts (auto) Absolute Nucleated RBC Nucleated RBC % (auto) Hold Purple Top Sodium Potassium Chloride Carbon Dioxide Anion Gap BUN Creatinine Estim Creat Clear Calc Estimated GFR POC Glucose 225 H 102 69 Random Glucose Lactic Acid Calcium Total Bilirubin AST ALT Alkaline Phosphatase Total Protein Albumin Random Vancomycin 08/19/24 08/19/24 08/19/24 12:17 13:51 15:34 WBC RBC Hgb Hct MCV MCH MCHC RDW Plt Count MPV Immature Gran % (Auto) Neut % (Auto) Lymph % (Auto) Churchill % (Auto) Eos % (Auto) Baso % (Auto) Lymph # (Auto) Churchill # (Auto) Eos # (Auto) Baso # (Auto) Abs Immat Gran (auto) Absolute Neuts (auto) Absolute Nucleated RBC Nucleated RBC % (auto) Hold Purple Top Sodium Potassium Chloride Carbon Dioxide Anion Gap BUN Creatinine 0.67 Estim Creat Clear Calc 107.0 Estimated GFR > 60 POC Glucose 105 74 Random Glucose Lactic Acid Calcium Total Bilirubin AST ALT Alkaline Phosphatase Total Protein Albumin Random Vancomycin Assessment and Plan Final Anesthetic Review Family History of Problems with Anesthesia: No History of Problems with Anesthesia: No
--- NOTE | 2024-08-19 16:17 | PM.EVENT ---
Event Note Date of Service: 08/19/24 Event Note: the patient has been on Jardiance will need to proceed with case despite possible delayed gastric emptying in view of ongoing cellulitis Time Spent With Patient Time: Total time managing care of this patient today ____ minutes.
--- NOTE | 2024-08-19 16:43 | HO.ANESPROP2 ---
HPI - Anesthesia Eval Consult details Narrative: for I&D PMFSH Active Problems Active Problems: All Active Problems Eschar of lower leg (Acute) Intractable pain (Acute) Peripheral arterial disease (Chronic) Obesity (BMI 30.0-34.9) (Chronic) Hyperglycemia due to diabetes mellitus (Acute) Infected wound (Acute) Overdose (Acute) Pneumonia (Acute) Cellulitis (Acute) Hyperglycemia due to type 2 diabetes mellitus (Acute) Pulmonary nodules (Acute) Pneumonitis (Acute) Bilateral pulmonary embolism (Acute) Osteomyelitis (Acute) NSTEMI (non-ST elevated myocardial infarction) (Acute) Acute respiratory failure with hypoxia (Acute) DVT (deep venous thrombosis) (Acute) Demand ischemia (Acute) MRSA bacteremia (Acute) Open wound of foot (Acute) Past Medical History Medical History Eschar of lower leg Obesity (BMI 30.0-34.9) Hyperglycemia due to type 2 diabetes mellitus 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 Diabetic ulcer of lower leg Peripheral arterial disease Pulmonary nodules Chronic respiratory failure Pneumonitis Obesity (BMI 35.0-39.9 without comorbidity) Acute respiratory failure with hypoxia NSTEMI (non-ST elevated myocardial infarction) Opioid use disorder Osteomyelitis Diabetes Anxiety Substance abuse Functional capacity: wheelchair bound Family History Family history of problems with anesthesia: No Surgical History Surgical History Hx of right BKA S/P amputation of foot Status post transmetatarsal amputation of right foot (09/24/21) History of Problems with Anesthesia: No Social History Social History Household Members: Other Household Members Other:: friend Housing: Apartment Are you a primary daycare director to a significant other at home: No Do you presently have visiting nurse or other home services: No Unable to assess alcohol history related to: Unable to respond Alcohol intake: never Comment: took socks off Patient Tobacco Use Status: Former Tobacco user Tobacco use type: Cigarette Cigarette Packs Per Day: 0 Cigarettes Per Day: 1 Years Smoked: 40 Smoked in Last 30 Days: No e-Cigarette/Vaping Use: Currently Using Second Hand Smoke Exposure: No Use of substances other than those prescribed or required for medical reasons: Yes Substance Use Type: Marijuana Substance Use Frequency: Occasionally Currently Displaying Signs/Symptoms of Drug Intoxication Withdrawal: No Have you been hit, kicked, punched, or otherwise hurt by someone within the past year? If so, by whom?: No Do you feel safe in your current relationship?: No Current Relationship Is there a partner from a previous relationship who is making you feel unsafe now?: No Are you made to feel afraid or neglected: No Are you DNR?: No Advance Directives: Yes Advance Directives Information Provided: Yes Advance Directives on File: Yes Advance Directives Date on File: 01/29/20 Do you have a plan to hurt others: No Plan Recently lost weight without trying: No How much weight loss: Not applicable Eating poorly because of decreased appetite: No Nutrition screen score: 0 Nutrition Risks: No Nutritional Risk Patient : No : No Poor oral hygiene: Yes (all teeth missing) service: No Current occupational status: unemployed Meds Allergies Allergy/AdvReac Type Severity Reaction Status Date / Time prednisone [PREDNISONE] Allergy Intermediate RASH Verified 08/19/24 15:24 Active Medications: Current Medications Acetaminophen (Acetaminophen 325 Mg Tablet) 975 mg PO Q6H ON LICENSE OF [facility] Last Admin: 08/19/24 13:01 Dose: 975 mg Alprazolam (Alprazolam 0.5 Mg Tablet) 0.5 mg PO BEDTIME PRN PRN Reason: Anxiety Last Admin: 08/18/24 20:12 Dose: 0.5 mg Apixaban (Apixaban 5 Mg Tablet) 5 mg PO BID ON LICENSE OF [facility] Last Admin: 08/18/24 18:18 Dose: Not Given Atorvastatin Calcium (Atorvastatin Calcium 80 Mg Tablet) 80 mg PO DAILY ON LICENSE OF [facility] Last Admin: 08/19/24 09:06 Dose: 80 mg Baclofen (Baclofen 10 Mg Tablet) 10 mg PO TID ON LICENSE OF [facility] Last Admin: 08/19/24 09:07 Dose: 10 mg Calcium Carbonate (Calcium Carbonate 750 Mg Tab.Chew) 750 mg PO Q4H PRN PRN Reason: Heartburn Duloxetine HCl (Duloxetine Hcl 30 Mg Capsule.Dr) 30 mg PO DAILY ON LICENSE OF [facility] Last Admin: 08/19/24 12:08 Dose: Not Given Empagliflozin (Empagliflozin 25 Mg Tablet) 25 mg PO DAILY ON LICENSE OF [facility] Last Admin: 08/19/24 09:06 Dose: 25 mg Gabapentin (Gabapentin 100 Mg Capsule) 100 mg PO TID ON LICENSE OF [facility] Last Admin: 08/19/24 09:07 Dose: 100 mg Glucose (Glucose Gel 15 Gm Gel..Gram.) 15 gm PO Q15M PRN; Protocol PRN Reason: per Hypoglycemia Standing Ord. Dextrose (D10) 250 mls @ 750 mls/hr IV Q15M PRN; Protocol PRN Reason: per Hypoglycemia Standing Ord. Piperacillin Sod/Tazobactam (Sod 3.375 gm/ Sodium Chloride) 50 mls @ 100 mls/hr IV Q6H ON LICENSE OF [facility] Last Infusion: 08/19/24 13:47 Dose: Infused Vancomycin HCl 1,000 mg/ (Sodium Chloride) 270 mls @ 270 mls/hr IV Q12H ON LICENSE OF [facility] Last Infusion: 08/19/24 09:59 Dose: Infused Dextrose/Lactated Ringer's (D5lr) 1,000 mls @ 80 mls/hr IVCONT .[id number] ON LICENSE OF [facility] Last Infusion: 08/19/24 15:10 Dose: 0 mls/hr Dextrose (D5w) 250 mls @ 999 mls/hr IV .Q16M ON LICENSE OF [facility] Last Admin: 08/19/24 15:39 Dose: 999 mls/hr Insulin Glargine (Insulin Glargine,Hum.Rec.Anlog 100 Unit/Ml 10 Ml Vial) 30 unit SUBCUT BID ON LICENSE OF [facility] Last Admin: 08/19/24 09:18 Dose: Not Given Insulin Human Lispro (Insulin Lispro 100 Unit/Ml 3 Ml Vial) 0 unit SUBCUT QIDACHS ON LICENSE OF [facility]; Protocol Last Admin: 08/19/24 11:45 Dose: Not Given Losartan Potassium (Losartan Potassium 25 Mg Tablet) 25 mg PO DAILY ON LICENSE OF [facility]; Protocol Last Admin: 08/19/24 09:07 Dose: 25 mg Magnesium Hydroxide (Milk Of Magnesia 30 Ml Oral.Susp) 30 ml PO DAILY PRN PRN Reason: Constipation Melatonin (Melatonin 3 Mg Tablet) 6 mg PO BEDTIME PRN PRN Reason: Insomnia Methadone HCl (Methadone Hcl 20 Mg/2 Ml Oral.Conc) 140 mg PO DAILY ON LICENSE OF [facility] Last Admin: 08/19/24 10:44 Dose: 140 mg Morphine Sulfate (Morphine Sulfate 4 Mg/Ml Cartridge) 4 mg IVPUSH Q3H PRN; Protocol PRN Reason: Pain, Severe (Pain Scale 7-10) Last Admin: 08/19/24 13:01 Dose: 4 mg Nicotine (Nicotine 14 Mg Patch.Td24) 14 mg TRANSDERMA DAILY ON LICENSE OF [facility] Last Admin: 08/19/24 09:07 Dose: 14 mg Ondansetron HCl (Ondansetron Hcl 4 Mg/2 Ml Vial) 4 mg IVPUSH Q8H PRN PRN Reason: Nausea and Vomiting Oxycodone HCl (Oxycodone Hcl Immed Release 5 Mg Tablet) 5 mg PO Q6H PRN PRN Reason: Pain, Moderate(Pain Scale 4-6) Pharmacy Consult (Consult Rx Vancomycin Dosing) 1 each MISCELLANE DAILY PRN PRN Reason: Consult order Sodium Chloride (0.9 % Sodium Chloride Flush 3 Ml Syringe) 3 ml IVFLUSH QSHIFT ON LICENSE OF [facility] Last Admin: 08/19/24 15:10 Dose: Not Given Home Medications ?Medication ?Instructions ?Recorded ?Confirmed ?Last Taken ?Type insulin glargine 100 unit/mL (3 40 unit subcut BID 11/28/22 08/18/24 08/15/24 History mL) subcutaneous pen (Lantus Solostar U-100 Insulin) atorvastatin 80 mg tablet 80 mg PO DAILY 02/26/24 08/18/24 08/15/24 History baclofen 10 mg tablet 10 mg PO TID 02/26/24 08/18/24 08/15/24 History duloxetine 30 mg capsule,delayed 30 mg PO DAILY 02/26/24 08/18/24 08/15/24 History release methadone 10 mg/mL oral 140 mg PO DAILY 02/27/24 08/18/24 08/14/24 History concentrate (Methadone Intensol) empagliflozin 25 mg tablet 25 mg PO DAILY 03/31/24 08/18/24 08/15/24 History (Jardiance) gabapentin 600 mg tablet 600 mg PO QID 03/31/24 08/18/24 08/15/24 History insulin lispro 100 unit/mL 1 sliding scale dose subcut TIDAC 03/31/24 08/18/24 08/15/24 History subcutaneous pen dulaglutide 0.75 mg/0.5 mL 0.75 mg subcut MO@0900 08/18/24 08/18/24 07/29/24 History subcutaneous pen injector (Trulicity) losartan 25 mg tablet 25 mg PO DAILY 08/18/24 08/18/24 08/15/24 History Exam Height,Weight and Vital Signs: Height 5 ft 6 in Weight 87.7 kg Last Vital Signs Temp 98.7 F 08/19/24 15:25 Pulse 86 08/19/24 15:25 Resp 16 08/19/24 15:25 BP 108/57 L 08/19/24 15:25 Pulse Ox 95 08/19/24 15:25 O2 Del Method Room Air 08/19/24 15:25 Pertinent Lab Results Pertinent Lab Results: Laboratory Tests 08/17/24 08/17/24 08/18/24 17:51 18:50 00:17 WBC 10.8 RBC 4.48 Hgb 12.0 Hct 37.0 MCV 82.6 MCH 26.8 L MCHC 32.4 RDW 14.5 Plt Count 367 MPV 9.7 Immature Gran % (Auto) 0.5 H Neut % (Auto) 81.4 H Lymph % (Auto) 10.2 L Conway % (Auto) 6.5 Eos % (Auto) 0.8 Baso % (Auto) 0.6 Lymph # (Auto) 1.1 L Conway # (Auto) 0.7 Eos # (Auto) 0.1 Baso # (Auto) 0.1 Abs Immat Gran (auto) 0.05 H Absolute Neuts (auto) 8.8 H Absolute Nucleated RBC 0.000 Nucleated RBC % (auto) 0.0 Hold Purple Top Sodium 132 L Potassium 4.3 Chloride 95 L Carbon Dioxide 28 Anion Gap 13 BUN 11 Creatinine 0.76 Estim Creat Clear Calc 94.4 Estimated GFR > 60 POC Glucose 359 H* 117 H Random Glucose 352 H* Lactic Acid 2.0 Calcium 8.7 Total Bilirubin 0.2 AST 35 H ALT 8 Alkaline Phosphatase 97 Total Protein 7.3 Albumin 2.8 L Random Vancomycin 08/18/24 08/18/24 08/18/24 05:45 07:42 11:03 WBC 11.1 H RBC 3.91 L Hgb 10.3 L Hct 32.5 L MCV 83.1 MCH 26.3 L MCHC 31.7 RDW 14.7 Plt Count 401 H MPV 10.0 Immature Gran % (Auto) 0.4 Neut % (Auto) 73.4 H Lymph % (Auto) 15.7 L Conway % (Auto) 7.9 Eos % (Auto) 2.1 Baso % (Auto) 0.5 Lymph # (Auto) 1.7 Conway # (Auto) 0.9 Eos # (Auto) 0.2 Baso # (Auto) 0.1 Abs Immat Gran (auto) 0.04 H Absolute Neuts (auto) 8.1 Absolute Nucleated RBC 0.000 Nucleated RBC % (auto) 0.0 Hold Purple Top Sodium 136 Potassium 3.3 D Chloride 99 Carbon Dioxide 28 Anion Gap 12 BUN 12 Creatinine 0.70 Estim Creat Clear Calc 102.4 Estimated GFR > 60 POC Glucose 180 H 150 H Random Glucose 184 H Lactic Acid Calcium 8.1 L D Total Bilirubin AST ALT Alkaline Phosphatase Total Protein Albumin Random Vancomycin 08/18/24 08/18/24 08/18/24 16:02 18:10 18:13 WBC RBC Hgb Hct MCV MCH MCHC RDW Plt Count MPV Immature Gran % (Auto) Neut % (Auto) Lymph % (Auto) Conway % (Auto) Eos % (Auto) Baso % (Auto) Lymph # (Auto) Conway # (Auto) Eos # (Auto) Baso # (Auto) Abs Immat Gran (auto) Absolute Neuts (auto) Absolute Nucleated RBC Nucleated RBC % (auto) Hold Purple Top SEE NOTE Sodium Potassium Chloride Carbon Dioxide Anion Gap BUN Creatinine Estim Creat Clear Calc Estimated GFR POC Glucose 267 H Random Glucose Lactic Acid Calcium Total Bilirubin AST ALT Alkaline Phosphatase Total Protein Albumin Random Vancomycin 10.1 L 08/18/24 08/19/24 08/19/24 20:35 07:08 11:20 WBC RBC Hgb Hct MCV MCH MCHC RDW Plt Count MPV Immature Gran % (Auto) Neut % (Auto) Lymph % (Auto) Conway % (Auto) Eos % (Auto) Baso % (Auto) Lymph # (Auto) Conway # (Auto) Eos # (Auto) Baso # (Auto) Abs Immat Gran (auto) Absolute Neuts (auto) Absolute Nucleated RBC Nucleated RBC % (auto) Hold Purple Top Sodium Potassium Chloride Carbon Dioxide Anion Gap BUN Creatinine Estim Creat Clear Calc Estimated GFR POC Glucose 225 H 102 69 Random Glucose Lactic Acid Calcium Total Bilirubin AST ALT Alkaline Phosphatase Total Protein Albumin Random Vancomycin 08/19/24 08/19/24 08/19/24 12:17 13:51 15:34 WBC RBC Hgb Hct MCV MCH MCHC RDW Plt Count MPV Immature Gran % (Auto) Neut % (Auto) Lymph % (Auto) Conway % (Auto) Eos % (Auto) Baso % (Auto) Lymph # (Auto) Conway # (Auto) Eos # (Auto) Baso # (Auto) Abs Immat Gran (auto) Absolute Neuts (auto) Absolute Nucleated RBC Nucleated RBC % (auto) Hold Purple Top Sodium Potassium Chloride Carbon Dioxide Anion Gap BUN Creatinine 0.67 Estim Creat Clear Calc 107.0 Estimated GFR > 60 POC Glucose 105 74 Random Glucose Lactic Acid Calcium Total Bilirubin AST ALT Alkaline Phosphatase Total Protein Albumin Random Vancomycin Narrative Narrative: EKG shows new Tw inversions anterolat. Airway Mallampati Class: II TM Dist: <=3cm Neck ROM: Full Denture: Upper and Lower Heart: see above Lungs: ok Assessment and Plan Assessment Anesthesia Assessment: Anesthesia Plan Discussed and Chart Reviewed (Dr. Muhammad impressed upon me the urgency to do this procedure. I believe. it can be done safely. Will talk w hopitalist post op.) Final Anesthetic Review Family History of Problems with Anesthesia: No History of Problems with Anesthesia: No NPO: Yes ASA Class: IV Final Preanesthetic Review: No Changes in Pt Med Stat, Meds/Allgs Chart Reviewed, Consent Obtained/Reviewed and Anes Risks/Benef Reviewed Patient Risk: High Procedure Risk: Low Anesthetic Plan Anesthetic Plan: MAC:, Agree w/ Assess. and Plan and TIVA Disposition: Standard PACU
--- NOTE | 2024-08-19 16:54 | PC.NURSE ---
Patient in preop. SR with inverted T waves on monitor. Dr. Garduno made aware. New order for EKG. Obtained and verified T wave abnormality. Dr. De Santiago made aware. Preop labs ordered. Into OR before results.
--- NOTE | 2024-08-19 17:31 | W.PM.OPN ---
Operative Note Operative Note Date of Service: 08/19/24 Narrative: Preop diagnosis: Thick Eschar, left lower leg with cellulitis Postop diagnosis: The same Procedure: Sharp excisional debridement of thick eschar containing full-thickness of the skin, on the left lower leg, 17 cm long by about 9 cm wide on the posterior lower leg Sharp excisional debridement of thick eschar on the heel on the left leg, about 3 cm in diameter also with full-thickness of the skin Surgeon: Kirill Muhammad MD Dispatcher Relay: SAULO Goode student The patient is a 54-year-old female admitted for cellulitis with note of a large thick eschar on the posterior aspect of the left leg. She was also noted to have an area of eschar on the left heel I explained to her that it will be best to proceed with excisional debridement for this to heal. She understood the technique of the planned procedure under anesthesia as well as the risks, benefits, and alternatives . She was brought to the operating room. She was placed in right lateral decubitus position under monitored anesthesia care. The area involved on the posterior aspect of the left leg and left foot was prepped and draped in the usual sterile fashion. A surgical time-out was done. The patient was receiving scheduled IV antibiotics I used Santiago scissors to excise eschar containing full-thickness of the skin and part of the subcutaneous layer on the posterior leg as described above. This area measured 17 cm x 9 cm. There was note of heel ulcer with thick eschar as well measuring about 3 cm in diameter and this was sharply debrided using Santiago scissors in the same fashion. Once adequate debridement was done, I proceeded to then clean the area and apply wet-to-dry dressings. I cauterized some oozing areas on the dermis. I applied thick gauze and Kerlix roll The procedure was then completed. The patient tolerated the procedure well. There were no immediate complications. Initial/ final counts of sponges and instruments correct. Estimated blood loss was about 20 cc. The patient was extubated without difficulty and transferred to the recovery room with stable vital signs.
[2024-08-19 17:40] LABS: Anion Gap 13 (12-20); Blood Urea Nitrogen 12 mg/dL (9-16); Carbon Dioxide 25 mmol/L (22-29); Chloride 105 mmol/L (96-108); Estimated Glomerular Filt Rate > 60; Glucose Random 97 mg/dL (60-115); Magnesium 1.7 mg/dL (1.6-2.6); Sodium 139 mmol/L (135-145)
--- NOTE | 2024-08-19 17:46 | PM.EVENT ---
Event Note Date of Service: 08/19/24 Event Note: Called by Dr De Santiago, anesthesiologist. Pt noted in preop area to have new anterolateral TW inversions new since prior EKG in Mar 2024. QTC 525 ms. No chest pain. Proceeded with surgical debridement of L heel and calf without complications. Still no c/o chest pain. Plan: cycle troponins [16:45 draw pending], replete Mg to 2+ [currently 1.7, K 4] Time Spent With Patient Time: Total time managing care of this patient today ____ minutes.
[2024-08-19 17:53] LABS: Troponin-I High Sensitivity 22.8 ng/L (<3.5-17.0)
[2024-08-19] MEDS: HYDROmorphone HCl 0.5 MG/0.5 ML SYRINGE IVPUSH ×4 (18:00→18:15)
[2024-08-19 18:40] LABS: Glucose, Whole Blood 65 mg/dL (60-115)
[2024-08-19] MEDS: Acetaminophen 1,000 MG/100 ML PIGGYBACK 400 MG IV (19:19)
[2024-08-19 19:32] LABS: Vancomycin Trough 11.6 mcg/mL (10.0-20.0)
--- NOTE | 2024-08-19 19:42 | HE.PHANOTE ---
Re: Vanco Renal function improving. Trough returned at 11.6. Dose increased to 1250mg, q12h with predicted AUC 471, predicted trough 13.9. Next trough 08/20 @1800.
[2024-08-19 19:45] LABS: Glucose, Whole Blood 112 mg/dL (60-115)
[2024-08-19] MEDS: oxyCODONE HCl Immed Release 5 MG TABLET PO (20:22)
[2024-08-19] MEDS: vancomycin HCL 1,250 MG in 0.9 % Sodium Chloride 250 ML 166.67 MG IV (20:34)
[2024-08-19 21:03] LABS: Troponin-I High Sensitivity 20.2 ng/L (<3.5-17.0)
[2024-08-19] MEDS: Magnesium Sulfate/H2O 2 GM/50 ML PIGGYBACK IV (22:37)
[2024-08-19] MEDS: ALPRAZolam 0.5 MG TABLET PO (22:42)
[2024-08-20] VITALS (7 sets, daily range): BP systolic 112–145; BP diastolic 61–75; PULSE 80–94; RESP 12–18; TEMP 36.1–36.4; O2SAT 93–98
[2024-08-20] MEDS: Morphine Sulfate 4 MG/ML CARTRIDGE IVPUSH ×3 (00:26→09:26)
[2024-08-20] MEDS: Acetaminophen 1,000 MG/100 ML PIGGYBACK 400 MG IV ×3 (00:34→14:30)
[2024-08-20] MEDS: Piperacillin Sodium/Tazobactam 3.375 GM in 0.9 % Sodium Chloride 50 ML IV ×2 (01:34→06:37)
[2024-08-20 07:34] LABS: Glucose, Whole Blood 156 mg/dL (60-115)
[2024-08-20] MEDS: vancomycin HCL 1,250 MG in 0.9 % Sodium Chloride 250 ML 166.67 MG IV (07:40)
[2024-08-20] MEDS: oxyCODONE HCl Immed Release 5 MG TABLET PO ×2 (07:40→17:39)
[2024-08-20] MEDS: Insulin Lispro 100 UNIT/ML 3 ML VIAL SUBCUT ×4 (07:41→21:45)
[2024-08-20] MEDS: Empagliflozin 25 MG TABLET PO (07:41)
[2024-08-20] MEDS: Atorvastatin Calcium 80 MG TABLET PO (07:41)
[2024-08-20] MEDS: Losartan Potassium 25 MG TABLET PO (07:41)
[2024-08-20] MEDS: DULoxetine HCl 30 MG CAPSULE.DR PO (07:41)
[2024-08-20] MEDS: Baclofen 10 MG TABLET PO ×3 (07:41→19:47)
[2024-08-20] MEDS: Gabapentin 100 MG CAPSULE PO ×3 (07:41→19:47)
[2024-08-20] MEDS: Nicotine 14 MG PATCH.TD24 TRANSDERMA (07:42)
[2024-08-20] MEDS: 0.9 % Sodium Chloride Flush 3 ML SYRINGE IVFLUSH (07:46)
--- NOTE | 2024-08-20 09:27 | HO.POSTANES ---
Post Anesthesia Evaluation Post Anesthesia Evaluation Date of Service: 08/20/24 Vital Signs: Vital Signs Temp Pulse Resp BP Pulse Ox O2 Del Method 08/20/24 07:41 116/65 08/20/24 07:22 97.4 F 89 18 116/65 98 Room Air 08/20/24 03:41 97.5 F 86 18 117/64 94 Room Air 08/19/24 23:26 98.9 F 86 18 112/62 93 Room Air Anesthesia: TIVA Mental Status: Awake Pain Control: Satisfactory Nausea/Vomiting: None Anesthesia-Related Issues: No Anes. Related Issues
--- NOTE | 2024-08-20 09:55 | HO.PM.IMPN ---
Subjective Subjective Date of Service: 08/20/24 Interval History: Still with pain in the leg had debridment in OR yesterday Physical Exam Vital Signs: Vital Signs: Last Vital Signs Temp 97.4 F 08/20/24 07:22 Pulse 89 08/20/24 07:22 Resp 18 08/20/24 07:22 BP 116/65 08/20/24 07:41 Pulse Ox 98 08/20/24 07:22 O2 Del Method Room Air 08/20/24 07:22 BMI result Body Mass Index 31.2 Const: Other: General: AO X 3, no acute distress Resp: CTA bilateral CVS: S1,S2,RRR GI: +BS, NT, no distention Skin: wounds debrided and dressing in place Neuro: motor grossly intact Psych: appropriate affect Objective Data Active Medications Alprazolam (Alprazolam 0.5 Mg Tablet) 0.5 mg PO BEDTIME PRN PRN Reason: Anxiety Last Admin: 08/19/24 22:42 Dose: 0.5 mg Documented By: JENNIFER Atorvastatin Calcium (Atorvastatin Calcium 80 Mg Tablet) 80 mg PO DAILY [facility] Last Admin: 08/20/24 07:41 Dose: 80 mg Documented By: MAYELA Baclofen (Baclofen 10 Mg Tablet) 10 mg PO TID [facility] Last Admin: 08/20/24 07:41 Dose: 10 mg Documented By: MAYELA Calcium Carbonate (Calcium Carbonate 750 Mg Tab.Chew) 750 mg PO Q4H PRN PRN Reason: Heartburn Duloxetine HCl (Duloxetine Hcl 30 Mg Capsule.) 30 mg PO DAILY [facility] Last Admin: 08/20/24 07:41 Dose: 30 mg Documented By: MAYELA Empagliflozin (Empagliflozin 25 Mg Tablet) 25 mg PO DAILY [facility] Last Admin: 08/20/24 07:41 Dose: 25 mg Documented By: MAYELA Gabapentin (Gabapentin 100 Mg Capsule) 100 mg PO TID [facility] Last Admin: 08/20/24 07:41 Dose: 100 mg Documented By: MAYELA Glucose (Glucose Gel 15 Gm Gel..Gram.) 15 gm PO Q15M PRN; Protocol PRN Reason: per Hypoglycemia Standing Ord. Hydromorphone HCl (Hydromorphone Hcl 0.5 Mg/0.5 Ml Syringe) 0.5 mg IVPUSH Q3H PRN; Protocol PRN Reason: Pain, Severe (Pain Scale 7-10) Dextrose (D10) 250 mls @ 750 mls/hr IV Q15M PRN; Protocol PRN Reason: per Hypoglycemia Standing Ord. Piperacillin Sod/Tazobactam (Sod 3.375 gm/ Sodium Chloride) 50 mls @ 100 mls/hr IV Q6H [facility] Last Infusion: 08/20/24 07:47 Dose: Infused Documented By: MAYELA Dextrose/Lactated Ringer's (D5lr) 1,000 mls @ 80 mls/hr IVCONT .[id number] [facility] Last Infusion: 08/20/24 09:30 Dose: 80 mls/hr Documented By: MAYELA Acetaminophen (Ofirmev) 1,000 mg in 100 mls @ 400 mls/hr IV Q6H [facility] Stop: 08/20/24 13:14 Last Infusion: 08/20/24 06:35 Dose: Infused Documented By: JENNIFER Vancomycin HCl 1,250 mg/ (Sodium Chloride) 250 mls @ 166.667 mls/hr IV Q12H [facility] Last Infusion: 08/20/24 09:10 Dose: Infused Documented By: MAYELA Insulin Glargine (Insulin Glargine,Hum.Rec.Anlog 100 Unit/Ml 10 Ml Vial) 25 unit SUBCUT BID [facility] Insulin Human Lispro (Insulin Lispro 100 Unit/Ml 3 Ml Vial) 0 unit SUBCUT QIDACHS [facility]; Protocol Last Admin: 08/20/24 07:41 Dose: 2 unit Documented By: MAYELA Losartan Potassium (Losartan Potassium 25 Mg Tablet) 25 mg PO DAILY [facility]; Protocol Last Admin: 08/20/24 07:41 Dose: 25 mg Documented By: MAYELA Magnesium Hydroxide (Milk Of Magnesia 30 Ml Oral.Susp) 30 ml PO DAILY PRN PRN Reason: Constipation Melatonin (Melatonin 3 Mg Tablet) 6 mg PO BEDTIME PRN PRN Reason: Insomnia Methadone HCl (Methadone Hcl 20 Mg/2 Ml Oral.Conc) 140 mg PO DAILY [facility] Last Admin: 08/19/24 10:44 Dose: 140 mg Documented By: MAYELA Co-signed By: SON Comments: given late d/t pt receiving IV morphine as well Naloxone HCl (Naloxone Hcl 0.4 Mg/Ml Vial) 0.04 mg IVPUSH Q5M PRN PRN Reason: Excessive sedation or RR < 8 Naloxone HCl (Naloxone Hcl 0.4 Mg/Ml Vial) 0.04 mg IVPUSH Q5M PRN PRN Reason: Excessive sedation or RR < 8 Nicotine (Nicotine 14 Mg Patch.Td24) 14 mg TRANSDERMA DAILY [facility] Last Admin: 08/20/24 07:42 Dose: 14 mg Documented By: MAYELA Ondansetron HCl (Ondansetron Hcl 4 Mg/2 Ml Vial) 4 mg IVPUSH Q8H PRN PRN Reason: Nausea and Vomiting Oxycodone HCl (Oxycodone Hcl Immed Release 5 Mg Tablet) 5 mg PO Q6H PRN PRN Reason: Pain, Moderate(Pain Scale 4-6) Last Admin: 08/20/24 07:40 Dose: 5 mg Documented By: MAYELA Pharmacy Consult (Consult Rx Vancomycin Dosing) 1 each MISCELLANE DAILY PRN PRN Reason: Consult order Sodium Chloride (0.9 % Sodium Chloride Flush 3 Ml Syringe) 3 ml IVFLUSH QSHIFT [facility] Last Admin: 08/20/24 07:46 Dose: 3 ml Documented By: MAYELA Labs 08/20/24 10:45 08/20/24 10:46 Labs: Laboratory Results - last 24 hr 08/19/24 08/19/24 08/19/24 11:20 12:17 13:51 Anion Gap Estim Creat Clear Calc 107.0 Estimated GFR > 60 POC Glucose 69 105 Random Glucose Calcium Magnesium Troponin I High Sens Vancomycin Trough 08/19/24 08/19/24 08/19/24 15:34 16:43 18:36 Anion Gap 13 Estim Creat Clear Calc 112.0 Estimated GFR > 60 POC Glucose 74 65 Random Glucose 97 Calcium 8.0 L Magnesium 1.7 Troponin I High Sens 22.8 H D Vancomycin Trough 08/19/24 08/19/24 08/19/24 18:40 19:26 20:32 Anion Gap Estim Creat Clear Calc Estimated GFR POC Glucose 112 Random Glucose Calcium Magnesium Troponin I High Sens 20.2 H Vancomycin Trough 11.6 08/20/24 07:12 Anion Gap Estim Creat Clear Calc Estimated GFR POC Glucose 156 H Random Glucose Calcium Magnesium Troponin I High Sens Vancomycin Trough Microbiology Microbiology Results: Microbiology 08/17/24 20:52 Blood Culture - Preliminary Blood - Venous No growth after 48 hours. 08/17/24 18:50 Blood Culture - Preliminary Blood - Venous No growth after 48 hours. 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 intractable pain secondary to PAD vs neuropathy vs cellulitis -DC Vanco, add Doxy, also stop -pain control with neurontin, oxycodone, change morphine to dilausid -surgical debridment yesterday 08/19 DM with hypoglycemia yesterday likely from NPO reduced Lantus to 20 bid and adjustes as needed (usually 40 bid at home) -hold metformin, continue jardiance - SSI - diabetic diet obesity - BMI 31.2 - weight loss encouraged Opioid use disorde -resume Methadone once dose confirmed nicotine dependence - smoking cessation discussed and encouraged - nicotine patch hx DVT/PE - continue eliquis, hold before debridment full code VTE prophy: eliquis inpatient for possible cellulitis and need for wound debridment Quality Stroke Does the patient have a stroke diagnosis?: No VTE Prior VTE?: Yes VTE Risk Level:: Medical - moderate - high VTE Device Contraindication: Treatment Not Indicated VTE Drug Contraindication: N/A - Med Ordered
[2024-08-20] MEDS: Insulin Glargine,Hum.rec.anlog 100 UNIT/ML 10 ML VIAL 25 UNIT SUBCUT ×2 (10:39→21:45)
[2024-08-20] MEDS: methADONE HCl 20 MG/2 ML ORAL.CONC 140 MG PO (10:39)
[2024-08-20 11:08] LABS: Hematocrit 33.3 % (37.0-47.0); Hemoglobin 10.7 g/dl (12.0-16.0); Mean Corpuscular HGB Conc 32.1 g/dl (31.0-35.0); Mean Corpuscular Hemoglobin 26.4 pg (27.0-33.0); Mean Platelet Volume 9.7 fL (9.4-12.3); Platelet Count 470 X10*3/uL (160-400); Red Blood Count 4.06 X10*6/uL (4.20-5.50); Red Cell Distribution Width 14.8 % (11.0-16.0); White Blood Count 12.4 X10*3/uL (4.8-10.8)
[2024-08-20 11:18] LABS: Glucose, Whole Blood 185 mg/dL (60-115)
[2024-08-20 11:24] LABS: Creatinine Clr Calc Pharmacy 105.5; Estimated Glomerular Filt Rate > 60
[2024-08-20 11:25] LABS: Creatinine Clr Calc Pharmacy 105.5; Estimated Glomerular Filt Rate > 60; Potassium 3.5 mmol/L (3.3-5.1)
[2024-08-20] MEDS: HYDROmorphone HCl 0.5 MG/0.5 ML SYRINGE IVPUSH ×5 (12:36→21:53)
[2024-08-20] MEDS: Doxycycline Hyclate 100 MG in 0.9 % Sodium Chloride 250 ML 166.67 MG IV (12:39)
--- NOTE | 2024-08-20 15:33 | HO.WOUND ---
Wound Consult: Initial 54yr old?female admitted to [facility] [place]24 - See progress notes and H&P for detailed history.? Wound consult placed for Bilateral Lower legs and Coccyx.? Patient agreeable to assessment and photo documentation.? Coccyx Etiology: ??Unstageable Pressure injury Present on Admission Measurements: 1cm x 1cm x 0.2cm Wound Bed: pink moist tissue noted suspect partial thickness tissue loss, but unable to tell given adherent barrier cream and slough - patient was very resistive to assessment and cleaning of wound bed at this time Drainage / Odor: none noted Edges: ? well defined Meme wound: ? MASD - IAD No Induration, Fluctuance or Warmth noted Pain: Pain reported by patient Goals of Treatment: ? Triad and foam dressing Right Residual Leg Diabetic wounds - dried scabbed wound beds - no drainage observed - patient refused much of assessment - agreeable to cleansing with betadine and durafiber AG. Although wounds are dry betadine will allow scabs to stay stable Left Heel Diabetic wound - necrotic tissue adherent to wound edges, red moist tissue to wound bed - TT to Dr. Muhammad with todays photos I recommend Santyl for enzymatic debridement and TT to Dr. Chaudhari to consider vascular consult Today wet to moist dressing applied. Dr. Muhammad to follow up tomorrow for topical wound care. Left Lateral Posterior Leg Left Medial Leg suspect mixed vascular wounds - s/p debridement by Dr. Muhammad 08/19/24 - wound bed remains with adherent yellow moist slough wet tomoist dressing applied at bedside - recommend santly for enzymatic debridement. The patient did not tolerate the dressing changes. She was premedicated, and medicated an additional time and still cried out in pain throughout the dressing removal, assessment and new dressing application. Given the overall appearance of the left leg TT to Dr. Chaudhari to consider Vascular consult. The leg is cool to touch no palpable pulse, weak pulse by doppler per direct care nurse, various areas of purpura, shiney skin, hairloss to legs, brittle toenails, necrotic wound beds and extreme pain. No new topical recommendations at this time - will defer to General Surgery with recommendation to continue wet to moist dressing daily. Recommendations: 1. Turn and Reposition every 2 hours and as needed for patient comfort.? Use pillows or wedges to support off loading positions. 2. Off Load all bony prominences with use of pillows and heel boots if needed.? Apply Preventative foams where needed. ? 3. Monitor for incontinence and moisture control, use barrier creams when needed for prevention and treatment. 4. Provide adequate and supplemental nutrition.? 5. Order low air loss mattress. 6. When applicable maintain blood glucose levels per Providers order. 7. Right Residual Leg - Custar with Betadine, cover scabs with durafiber AG cover with dry gauze, abd pad. Change every other day. 8. Coccyx - Off Load Pressure with Q2hr turns and pillows. Cleanse with PH balance spray or wipes, pat dry. ?Apply thin layer of Triad to wound bed. Do not remove all of paste between applications as this may cause further skin damage.? Cover with foam dressing to aid in off loading and protection from friction. Change every 5 days and PRN. 9. Left Heel and Lower Leg - Cleanse and irrigate with NS, pat dry. Apply saline moist gauze to wound beds, cover with dry gauze, ABD pads and wrap. Change Daily. Re-consult wound care Nurse for wound deterioration or wound changes.
[2024-08-20] MEDS: Dextrose 5 % and Lactated Ring 1,000 ML 80 ML IVCONT ×2 (15:38→19:47)
--- NOTE | 2024-08-20 16:21 | PM.EVENT ---
Event Note Date of Service: 08/20/24 Event Note: Patient is seen today Dressing change done by Michelle the wound care nurse Patient says she is ?okay? Debridement site appears clean Plan to do Santyl dressings starting tomorrow She may need higher doses of pain meds for dressing changes May benefit from re-evaluation with vascular service - Dr. Ferrell Time Spent With Patient Time: Total time managing care of this patient today ____ minutes.
[2024-08-20 17:06] LABS: Glucose, Whole Blood 208 mg/dL (60-115)
[2024-08-20 18:52] LABS: Vancomycin Random 13.8 mcg/mL (15-20)
[2024-08-20] MEDS: ALPRAZolam 0.5 MG TABLET PO (19:47)
[2024-08-20 20:41] LABS: Glucose, Whole Blood 228 mg/dL (60-115)
[2024-08-21] MEDS: oxyCODONE HCl Immed Release 5 MG TABLET PO ×3 (00:09→23:52)
[2024-08-21] MEDS: HYDROmorphone HCl 0.5 MG/0.5 ML SYRINGE IVPUSH ×9 (00:40→22:21)
[2024-08-21] MEDS: Doxycycline Hyclate 100 MG in 0.9 % Sodium Chloride 250 ML 166.67 MG IV ×3 (00:43→23:54)
[2024-08-21] MEDS: Melatonin 3 MG TABLET 6 MG PO (02:09)
[2024-08-21 04:00] VITALS: BP 135/79; PULSE 97; RESP 16; TEMP 36.8; O2SAT 95
[2024-08-21 07:15] VITALS: BP 157/83; PULSE 93; RESP 18; TEMP 36; O2SAT 97
[2024-08-21 07:55] LABS: Glucose, Whole Blood 206 mg/dL (60-115)
--- NOTE | 2024-08-21 09:29 | HO.WOUND ---
Wound Consult: Follow up 54yr old?[place] [facility] [place] - See progress notes and H&P for detailed history.? Wound consult follow up for Bilateral Lower legs and Coccyx.? Patient agreeable to assessment and photo documentation.? Patient refuses coccyx assessment at this time due to pain from dressing to left lower leg. Reinforced education of frequent repositions and turns and allows topical care. Coccyx Etiology: ??Unstageable Pressure injury Present on Admission Measurements: 1cm x 1cm x 0.2cm Wound Bed: pink moist tissue noted suspect partial thickness tissue loss, but unable to tell given adherent barrier cream and slough - patient was very resistive to assessment and cleaning of wound bed at this time Drainage / Odor: none noted Edges: ? well defined Nimisha wound: ? MASD - IAD No Induration, Fluctuance or Warmth noted Pain: Pain reported by patient Goals of Treatment: ? Triad and foam dressing Right Residual Leg - Not assessed today - to be changed every other day. Diabetic wounds - dried scabbed wound beds - no drainage observed - patient refused much of assessment - agreeable to cleansing with betadine and durafiber AG. Although wounds are dry betadine will allow scabs to stay stable Left Heel 08/20/24 Left Heel 08/21/24 Diabetic wound - necrotic tissue adherent to wound edges, scant red moist tissue to wound bed - TT to Dr. Muhammad at bedside agreeable to Santyl for enzymatic debridement and spoke to Dr. Chaudhari to consider vascular consult. Left Lateral Posterior Leg 08/20/24 08/21/24 Left Medial Leg 08/20/24 08/21/24 08/21/24 suspect mixed vascular wounds - s/p debridement by Dr. Muhammad 08/19/24 - wound bed remains with adherent yellow moist slough wet to moist dressing applied at bedside, pt tolerated better than yesterday she removed her own dressing as this allowed her to tolerate the dressing change better, She did require additional pain meds - see MAR. Given the overall appearance of the left leg spoke to Dr. Chaudhari to consider Vascular consult. The leg is cool to touch no palpable pulse, weak pulse by doppler per direct care nurse, various areas of purpura, shiney skin, hairloss to legs, brittle toenails, necrotic wound beds and extreme pain. Left heel to be switched to enzymatic debridement. Continue wet to moist dressing daily to left leg. Recommendations: 1. Turn and Reposition every 2 hours and as needed for patient comfort.? Use pillows or wedges to support off loading positions. 2. Off Load all bony prominences with use of pillows and heel boots if needed.? Apply Preventative foams where needed. ? 3. Monitor for incontinence and moisture control, use barrier creams when needed for prevention and treatment. 4. Provide adequate and supplemental nutrition.? 5. Order low air loss mattress. 6. When applicable maintain blood glucose levels per Providers order. 7. Right Residual Leg - Maiden with Betadine, cover scabs with durafiber AG cover with dry gauze, abd pad. Change every other day. 8. Coccyx - Off Load Pressure with Q2hr turns and pillows. Cleanse with PH balance spray or wipes, pat dry. ?Apply thin layer of Triad to wound bed. Do not remove all of paste between applications as this may cause further skin damage.? Cover with foam dressing to aid in off loading and protection from friction. Change every 5 days and PRN. 9. Lower Leg - Cleanse and irrigate with NS, pat dry. Apply saline moist gauze to wound beds, cover with dry gauze, ABD pads and wrap. Change Daily. 10. Left Heel - Cleanse and irrigate with NS, pat dry. Apply barrier to the immediate nimisha wound, apply thick layer of Santyl to entire wound bed, cover with saline moist gauze, secure foam dressing, change Daily. Re-consult wound care Nurse for wound deterioration or wound changes.
[2024-08-21] MEDS: methADONE HCl 20 MG/2 ML ORAL.CONC 140 MG PO (09:37)
[2024-08-21] MEDS: DULoxetine HCl 30 MG CAPSULE.DR PO (09:40)
[2024-08-21] MEDS: Losartan Potassium 25 MG TABLET PO (09:40)
[2024-08-21] MEDS: Baclofen 10 MG TABLET PO ×3 (09:40→22:20)
[2024-08-21] MEDS: Empagliflozin 25 MG TABLET PO (09:40)
[2024-08-21] MEDS: Gabapentin 100 MG CAPSULE PO ×3 (09:40→22:20)
[2024-08-21] MEDS: Atorvastatin Calcium 80 MG TABLET PO (09:40)
[2024-08-21] MEDS: Collagenase Clostridium Hist. 30 GM TUBE 1 APPL TOPICAL (09:41)
[2024-08-21 09:42] VITALS: BMI 31.2
[2024-08-21] MEDS: Nicotine 14 MG PATCH.TD24 TRANSDERMA (09:42)
[2024-08-21] MEDS: Insulin Lispro 100 UNIT/ML 3 ML VIAL SUBCUT ×4 (09:46→22:20)
[2024-08-21] MEDS: Insulin Glargine,Hum.rec.anlog 100 UNIT/ML 10 ML VIAL 25 UNIT SUBCUT ×2 (09:46→22:20)
[2024-08-21] MEDS: 0.9 % Sodium Chloride Flush 3 ML SYRINGE IVFLUSH ×3 (09:47→22:22)
--- NOTE | 2024-08-21 09:49 | HO.PM.IMPN ---
Subjective Subjective Date of Service: 08/21/24 Interval History: Still with pain in the leg had debridment in O2 2 days ago pain is much better today Physical Exam Vital Signs: Vital Signs: Last Vital Signs Temp 96.8 F 08/21/24 07:15 Pulse 93 08/21/24 07:15 Resp 18 08/21/24 07:15 BP 157/83 H 08/21/24 07:15 Pulse Ox 97 08/21/24 07:15 O2 Del Method Room Air 08/21/24 07:15 BMI result Body Mass Index 31.2 Const: Other: General: AO X 3, no acute distress Resp: CTA bilateral CVS: S1,S2,RRR GI: +BS, NT, no distention Skin: wounds debrided and dressing in place Neuro: motor grossly intact Psych: appropriate affect Objective Data Active Medications Alprazolam (Alprazolam 0.5 Mg Tablet) 0.5 mg PO BEDTIME PRN PRN Reason: Anxiety Last Admin: 08/20/24 19:47 Dose: 0.5 mg Documented By: ADRIANA Atorvastatin Calcium (Atorvastatin Calcium 80 Mg Tablet) 80 mg PO DAILY [facility] Last Admin: 08/21/24 09:40 Dose: 80 mg Documented By: SADE Baclofen (Baclofen 10 Mg Tablet) 10 mg PO TID [facility] Last Admin: 08/21/24 09:40 Dose: 10 mg Documented By: SADE Calcium Carbonate (Calcium Carbonate 750 Mg Tab.Chew) 750 mg PO Q4H PRN PRN Reason: Heartburn Collagenase (Collagenase Clostridium Hist. 30 Gm Tube) 1 appl TOPICAL DAILY [facility]; Protocol Last Admin: 08/21/24 09:41 Dose: 1 appl Documented By: SADE Duloxetine HCl (Duloxetine Hcl 30 Mg Capsule.) 30 mg PO DAILY [facility] Last Admin: 08/21/24 09:40 Dose: 30 mg Documented By: SADE Empagliflozin (Empagliflozin 25 Mg Tablet) 25 mg PO DAILY [facility] Last Admin: 08/21/24 09:40 Dose: 25 mg Documented By: SADE Gabapentin (Gabapentin 100 Mg Capsule) 100 mg PO TID [facility] Last Admin: 08/21/24 09:40 Dose: 100 mg Documented By: SADE Glucose (Glucose Gel 15 Gm Gel..Gram.) 15 gm PO Q15M PRN; Protocol PRN Reason: per Hypoglycemia Standing Ord. Hydromorphone HCl (Hydromorphone Hcl 0.5 Mg/0.5 Ml Syringe) 0.5 mg IVPUSH Q3H PRN; Protocol PRN Reason: Pain, Severe (Pain Scale 7-10) Last Admin: 08/21/24 06:38 Dose: 0.5 mg Documented By: ADRIANA Dextrose (D10) 250 mls @ 750 mls/hr IV Q15M PRN; Protocol PRN Reason: per Hypoglycemia Standing Ord. Doxycycline Hyclate 100 mg/ (Sodium Chloride) 250 mls @ 166.67 mls/hr IV Q12H [facility] Last Infusion: 08/21/24 02:21 Dose: Infused Documented By: ADRIANA Insulin Glargine (Insulin Glargine,Hum.Rec.Anlog 100 Unit/Ml 10 Ml Vial) 25 unit SUBCUT BID [facility] Last Admin: 08/21/24 09:46 Dose: 25 unit Documented By: SADE Insulin Human Lispro (Insulin Lispro 100 Unit/Ml 3 Ml Vial) 0 unit SUBCUT QIDACHS [facility]; Protocol Last Admin: 08/21/24 09:46 Dose: 4 unit Documented By: SADE Losartan Potassium (Losartan Potassium 25 Mg Tablet) 25 mg PO DAILY [facility]; Protocol Last Admin: 08/21/24 09:40 Dose: 25 mg Documented By: SADE Magnesium Hydroxide (Milk Of Magnesia 30 Ml Oral.Susp) 30 ml PO DAILY PRN PRN Reason: Constipation Melatonin (Melatonin 3 Mg Tablet) 6 mg PO BEDTIME PRN PRN Reason: Insomnia Last Admin: 08/21/24 02:09 Dose: 6 mg Documented By: ADRIANA Methadone HCl (Methadone Hcl 20 Mg/2 Ml Oral.Conc) 140 mg PO DAILY [facility] Last Admin: 08/21/24 09:37 Dose: 140 mg Documented By: SADE Co-signed By: JEFFERSON Naloxone HCl (Naloxone Hcl 0.4 Mg/Ml Vial) 0.04 mg IVPUSH Q5M PRN PRN Reason: Excessive sedation or RR < 8 Naloxone HCl (Naloxone Hcl 0.4 Mg/Ml Vial) 0.04 mg IVPUSH Q5M PRN PRN Reason: Excessive sedation or RR < 8 Nicotine (Nicotine 14 Mg Patch.Td24) 14 mg TRANSDERMA DAILY [facility] Last Admin: 08/21/24 09:42 Dose: 14 mg Documented By: SADE Ondansetron HCl (Ondansetron Hcl 4 Mg/2 Ml Vial) 4 mg IVPUSH Q8H PRN PRN Reason: Nausea and Vomiting Oxycodone HCl (Oxycodone Hcl Immed Release 5 Mg Tablet) 5 mg PO Q6H PRN PRN Reason: Pain, Moderate(Pain Scale 4-6) Last Admin: 08/21/24 07:52 Dose: 5 mg Documented By: SADE Sodium Chloride (0.9 % Sodium Chloride Flush 3 Ml Syringe) 3 ml IVFLUSH QSHIFT [facility] Last Admin: 08/21/24 09:47 Dose: 3 ml Documented By: SADE Labs 08/20/24 10:45 08/20/24 10:46 Labs: Laboratory Results - last 24 hr 08/20/24 08/20/24 08/20/24 10:45 10:46 11:02 MCV 82.0 MCH 26.4 L MCHC 32.1 RDW 14.8 Plt Count 470 H MPV 9.7 Absolute Nucleated RBC 0.000 Nucleated RBC % (auto) 0.0 Estim Creat Clear Calc 105.5 105.5 Estimated GFR > 60 > 60 POC Glucose 185 H Magnesium 2.0 Random Vancomycin 08/20/24 08/20/24 08/20/24 16:59 18:15 20:30 MCV MCH MCHC RDW Plt Count MPV Absolute Nucleated RBC Nucleated RBC % (auto) Estim Creat Clear Calc Estimated GFR POC Glucose 208 H 228 H Magnesium Random Vancomycin 13.8 L 08/21/24 07:18 MCV MCH MCHC RDW Plt Count MPV Absolute Nucleated RBC Nucleated RBC % (auto) Estim Creat Clear Calc Estimated GFR POC Glucose 206 H Magnesium Random Vancomycin Assessment and Plan (1) Cellulitis: Status: Acute (2) DVT (deep venous thrombosis): Status: Acute Plan Patient is a 54-year-old female with a past medical history significant for peripheral arterial disease, type 2 diabetes on insulin, NSTEMI/CVA in 2021, DVT/bilateral PE on Eliquis, MRSA bacteremia polysubstance IV drug abuse, 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 intractable pain secondary to PAD vs neuropathy vs cellulitis, doesn't appear infected and blood cultures negative -was on vanco and zosyn, stopped 08/20, continue doxy for now -pain control with neurontin, oxycodone, change morphine to dilausid -surgical debridment yesterday 08/19 -vascular to add vascular studies DM, hypoglycemia resolved. reduced Lantus to 20 bid and adjustes as needed (usually 40 bid at home) -hold metformin, continue jardiance - SSI - diabetic diet obesity - BMI 31.2 - weight loss encouraged Opioid use disorde -resume Methadone once dose confirmed nicotine dependence - smoking cessation discussed and encouraged - nicotine patch hx DVT/PE - continue eliquis, full code VTE prophy: eliquis inpatient for possible cellulitis and need for wound debridment Quality Stroke Does the patient have a stroke diagnosis?: No VTE Prior VTE?: Yes VTE Risk Level:: Medical - moderate - high VTE Device Contraindication: Treatment Not Indicated VTE Drug Contraindication: N/A - Med Ordered
--- NOTE | 2024-08-21 09:50 | MHC.CLN ---
F/U DIET=DIABETIC 2000 KCALS. UNSTAGEABLE PI TO COCCYX PER WOUND RN 08/20. PRIOR INFO REGARDING TOMATO ALLERGY PER DINING NOTE. PATIENT CONFIRMED THAT SHE DOES NOT HAVE AN ALLERGY TO TOMATOES. OFFERED ENSURE SUPPLEMENT AND PATIENT DOES NOT WANT. INTAKE APPEARS GOOD, 50-100%. FOLLOW FOR PO INTAKE AND SKIN INTEGRITY. SEE CLINICAL NUTRITION ASSESSMENT 08/21/24.
--- NOTE | 2024-08-21 10:28 | P.CONGS_ITS ---
<Statement entered by Vasu Ferrell MD - 08/21/24 10:55> I have seen and evaluated the patient and agree with history, findings, assessment and plan documented by Zuleyma Moon PA-c. Nonpalpable left lower extremity. Will reconfirm with noninvasive testing. Will plan for left lower extremity angiogram with possible intervention. History of Present Illness Consult details Consult date: 08/21/24 Narrative: We were consulted on Marilou, a 54yo female patient, who presented to the ER on 08/17 with concerns of cellulitis in her left lower extremity. She has an extensive hx of PAD including a right BKA and partial amputation of the left big toe. She is also a diabetic and was found to be hyperglycemic. She was admitted for IV abx. Dr Muhammad brought the pt to the OR on 08/19 for a surgical debridement of the left lower extremity. She has an extensive smoking hx, and states she quit about 6m ago. She endorses significant pain in the left lower extremity. Review of Systems 2 Constitutional: Constitutional: Reports as per HPI and Denies weakness ENT: Reports Normal hearing present and Denies dizziness Cardiovascular: Cardiovascular: Reports as per HPI, Denies chest pain, Denies chest pain at rest, Denies chest pain with activity, Denies dyspnea and Denies dyspnea on exertion Respiratory: Respiratory: Reports as per HPI, Denies cough, Denies dyspnea and Denies dyspnea on exertion Gastrointestinal: Gastrointestinal: Reports as per HPI, Denies abdominal pain, Denies nausea and Denies vomiting Musculoskeletal: Musculoskeletal: Denies numbness Integumentary/Breasts: Skin/Breast: Reports as per HPI, Denies erythema and Denies wounds Neurologic: Reports Normal hearing present, Denies dizziness, Denies numbness, Denies Sensory deficit (Neuro) and Denies weakness Psychiatric: Psychiatric: Reports no additional psychiatric complaints Endocrine: Endocrine: Reports no additional endocrine complaints PMFSH Past Medical History Medical History Eschar of lower leg Obesity (BMI 30.0-34.9) Hyperglycemia due to type 2 diabetes mellitus 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 Diabetic ulcer of lower leg Peripheral arterial disease Pulmonary nodules Chronic respiratory failure Pneumonitis Obesity (BMI 35.0-39.9 without comorbidity) Acute respiratory failure with hypoxia NSTEMI (non-ST elevated myocardial infarction) Opioid use disorder Osteomyelitis Diabetes Anxiety Substance abuse Surgical History Surgical History Hx of right BKA S/P amputation of foot Status post transmetatarsal amputation of right foot (09/24/21) Social History Social History Household Members: Other Household Members Other:: friend Housing: Apartment Are you a primary transitional care nurse to a significant other at home: No Do you presently have visiting nurse or other home services: No Unable to assess alcohol history related to: Unable to respond Alcohol intake: never Comment: took socks off Patient Tobacco Use Status: Former Tobacco user Tobacco use type: Cigarette Cigarette Packs Per Day: 0 Cigarettes Per Day: 1 Years Smoked: 40 Smoked in Last 30 Days: No e-Cigarette/Vaping Use: Currently Using Second Hand Smoke Exposure: No Use of substances other than those prescribed or required for medical reasons: Yes Substance Use Type: Marijuana Substance Use Frequency: Occasionally Currently Displaying Signs/Symptoms of Drug Intoxication Withdrawal: No Have you been hit, kicked, punched, or otherwise hurt by someone within the past year? If so, by whom?: No Do you feel safe in your current relationship?: No Current Relationship Is there a partner from a previous relationship who is making you feel unsafe now?: No Are you made to feel afraid or neglected: No Are you DNR?: No Advance Directives: Yes Advance Directives Information Provided: Yes Advance Directives on File: Yes Advance Directives Date on File: 01/29/20 Do you have a plan to hurt others: No Plan Recently lost weight without trying: No How much weight loss: Not applicable Eating poorly because of decreased appetite: No Nutrition screen score: 0 Nutrition Risks: No Nutritional Risk Patient : No : No Poor oral hygiene: Yes (all teeth missing) service: No Current occupational status: unemployed Meds Allergies Allergy/AdvReac Type Severity Reaction Status Date / Time prednisone [PREDNISONE] Allergy Intermediate RASH Verified 08/19/24 15:24 Active Medications: Current Medications Alprazolam (Alprazolam 0.5 Mg Tablet) 0.5 mg PO BEDTIME PRN PRN Reason: Anxiety Last Admin: 08/20/24 19:47 Dose: 0.5 mg Apixaban (Apixaban 5 Mg Tablet) 5 mg PO BID [facility] Atorvastatin Calcium (Atorvastatin Calcium 80 Mg Tablet) 80 mg PO DAILY [facility] Last Admin: 08/21/24 09:40 Dose: 80 mg Baclofen (Baclofen 10 Mg Tablet) 10 mg PO TID [facility] Last Admin: 08/21/24 09:40 Dose: 10 mg Calcium Carbonate (Calcium Carbonate 750 Mg Tab.Chew) 750 mg PO Q4H PRN PRN Reason: Heartburn Collagenase (Collagenase Clostridium Hist. 30 Gm Tube) 1 appl TOPICAL DAILY [facility]; Protocol Last Admin: 08/21/24 09:41 Dose: 1 appl Duloxetine HCl (Duloxetine Hcl 30 Mg Capsule.Dr) 30 mg PO DAILY [facility] Last Admin: 08/21/24 09:40 Dose: 30 mg Empagliflozin (Empagliflozin 25 Mg Tablet) 25 mg PO DAILY [facility] Last Admin: 08/21/24 09:40 Dose: 25 mg Gabapentin (Gabapentin 100 Mg Capsule) 100 mg PO TID [facility] Last Admin: 08/21/24 09:40 Dose: 100 mg Glucose (Glucose Gel 15 Gm Gel..Gram.) 15 gm PO Q15M PRN; Protocol PRN Reason: per Hypoglycemia Standing Ord. Hydromorphone HCl (Hydromorphone Hcl 0.5 Mg/0.5 Ml Syringe) 0.5 mg IVPUSH Q3H PRN; Protocol PRN Reason: Pain, Severe (Pain Scale 7-10) Last Admin: 08/21/24 06:38 Dose: 0.5 mg Dextrose (D10) 250 mls @ 750 mls/hr IV Q15M PRN; Protocol PRN Reason: per Hypoglycemia Standing Ord. Doxycycline Hyclate 100 mg/ (Sodium Chloride) 250 mls @ 166.67 mls/hr IV Q12H [facility] Last Infusion: 08/21/24 02:21 Dose: Infused Insulin Glargine (Insulin Glargine,Hum.Rec.Anlog 100 Unit/Ml 10 Ml Vial) 25 unit SUBCUT BID [facility] Last Admin: 08/21/24 09:46 Dose: 25 unit Insulin Human Lispro (Insulin Lispro 100 Unit/Ml 3 Ml Vial) 0 unit SUBCUT QIDACHS [facility]; Protocol Last Admin: 08/21/24 09:46 Dose: 4 unit Losartan Potassium (Losartan Potassium 25 Mg Tablet) 25 mg PO DAILY [facility]; Protocol Last Admin: 08/21/24 09:40 Dose: 25 mg Magnesium Hydroxide (Milk Of Magnesia 30 Ml Oral.Susp) 30 ml PO DAILY PRN PRN Reason: Constipation Melatonin (Melatonin 3 Mg Tablet) 6 mg PO BEDTIME PRN PRN Reason: Insomnia Last Admin: 08/21/24 02:09 Dose: 6 mg Methadone HCl (Methadone Hcl 20 Mg/2 Ml Oral.Conc) 140 mg PO DAILY [facility] Last Admin: 08/21/24 09:37 Dose: 140 mg Naloxone HCl (Naloxone Hcl 0.4 Mg/Ml Vial) 0.04 mg IVPUSH Q5M PRN PRN Reason: Excessive sedation or RR < 8 Naloxone HCl (Naloxone Hcl 0.4 Mg/Ml Vial) 0.04 mg IVPUSH Q5M PRN PRN Reason: Excessive sedation or RR < 8 Nicotine (Nicotine 14 Mg Patch.Td24) 14 mg TRANSDERMA DAILY [facility] Last Admin: 08/21/24 09:42 Dose: 14 mg Ondansetron HCl (Ondansetron Hcl 4 Mg/2 Ml Vial) 4 mg IVPUSH Q8H PRN PRN Reason: Nausea and Vomiting Oxycodone HCl (Oxycodone Hcl Immed Release 5 Mg Tablet) 5 mg PO Q6H PRN PRN Reason: Pain, Moderate(Pain Scale 4-6) Last Admin: 08/21/24 07:52 Dose: 5 mg Sodium Chloride (0.9 % Sodium Chloride Flush 3 Ml Syringe) 3 ml IVFLUSH QSHIFT [facility] Last Admin: 08/21/24 09:47 Dose: 3 ml Home Medications ?Medication ?Instructions ?Recorded ?Confirmed ?Last Taken ?Type insulin glargine 100 unit/mL (3 40 unit subcut BID 11/28/22 08/18/24 08/15/24 History mL) subcutaneous pen (Lantus Solostar U-100 Insulin) atorvastatin 80 mg tablet 80 mg PO DAILY 02/26/24 08/18/24 08/15/24 History baclofen 10 mg tablet 10 mg PO TID 02/26/24 08/18/24 08/15/24 History duloxetine 30 mg capsule,delayed 30 mg PO DAILY 02/26/24 08/18/24 08/15/24 History release methadone 10 mg/mL oral 140 mg PO DAILY 02/27/24 08/18/2408/14/25 History concentrate (Methadone Intensol) empagliflozin 25 mg tablet 25 mg PO DAILY 03/31/24 08/18/24 08/15/24 History (Jardiance) gabapentin 600 mg tablet 600 mg PO QID 03/31/24 08/18/24 08/15/24 History insulin lispro 100 unit/mL 1 sliding scale dose subcut TIDAC 03/31/24 08/18/24 08/15/24 History subcutaneous pen dulaglutide 0.75 mg/0.5 mL 0.75 mg subcut MO@0900 08/18/24 08/18/24 07/29/24 History subcutaneous pen injector (Trulicity) losartan 25 mg tablet 25 mg PO DAILY 08/18/24 08/18/24 08/15/24 History Physical Exam 2 Vital Signs: Vital Signs: Last Vital Signs Temp 96.8 F 08/21/24 07:15 Pulse 93 08/21/24 07:15 Resp 18 08/21/24 07:15 BP 157/83 H 08/21/24 07:15 Pulse Ox 97 08/21/24 07:15 O2 Del Method Room Air 08/21/24 07:15 BMI result Body Mass Index 31.2 Const: General: comfortable and no acute distress O rientation/consciousness: patient oriented x3 HEENT: Ears: hearing grossly normal bilaterally Resp: Effort & Inspection: normal respiratory effort and able to speak in complete sentences Auscultation: clear to auscultation bilaterally Cardio: Rate: regular rate Rhythm: regular rhythm Heart sounds: S1 normal heart sound present and S2 normal heart sound present Bruits: no abdominal aortic bruits, no carotid bruits, no femoral bruits and no renal bruits GI: Palpation (GI): No Abdominal aortic bruit present Neuro: General: patient oriented x3 Cranial nerves: Yes Normal hearing present Sensory Exam: No Sensory deficit (Neuro) Extrem: Other: RLE: BKA site healed. LLE: wrapped (recently), not taken down. Unable to palpate pulses. Results Labs 08/20/24 10:45 08/20/24 10:46 Labs: Abnormal lab results 08/20/24 08/20/24 08/20/24 Range/Units 10:45 11:02 16:59 WBC 12.4 H (4.8-10.8) X10*3/uL RBC 4.06 L (4.20-5.50) X10*6/uL Hgb 10.7 L (12.0-16.0) g/dl Hct 33.3 L (37.0-47.0) % MCH 26.4 L (27.0-33.0) pg Plt Count 470 H (160-400) X10*3/uL POC Glucose 185 H 208 H (60-115) mg/dL Random Vancomycin (15-20) mcg/mL 08/20/24 08/20/24 08/21/24 Range/Units 18:15 20:30 07:18 WBC (4.8-10.8) X10*3/uL RBC (4.20-5.50) X10*6/uL Hgb (12.0-16.0) g/dl Hct (37.0-47.0) % MCH (27.0-33.0) pg Plt Count (160-400) X10*3/uL POC Glucose 228 H 206 H (60-115) mg/dL Random Vancomycin 13.8 L (15-20) mcg/mL Short CBC 08/20/24 Range/Units 10:45 WBC 12.4 H (4.8-10.8) X10*3/uL Hgb 10.7 L (12.0-16.0) g/dl Hct 33.3 L (37.0-47.0) % Plt Count 470 H (160-400) X10*3/uL BMP 08/20/24 08/20/24 10:45 10:46 Potassium 3.5 Creatinine 0.68 0.68 All other labs normal. Assessment and Plan (1) Cellulitis: Qualifiers: Laterality: left Site of cellulitis: extremity Site of cellulitis of extremity: lower extremity Qualified Code(s): L03.116 - Cellulitis of left lower limb Status: Acute Plan We were consulted for Marilou, a 54yo female patient, who presented to the ER on 08/17 for concerns of cellulitis in her left lower extremity. She was admitted and started on IV Abx. We have ordered an arterial duplex in anticipation of having her in for an angiogram tomorrow morning. We were unable to palpate pulses in her left foot. We would continue with the current IV Abx and dressing changes regimens. Thank you for the consult. If there are any questions or concerns, please do not hesitate to reach out to us. Procedures Date of Service Date of Service: 08/21/24
--- NOTE | 2024-08-21 10:46 | P.PNGS_ITS ---
Subjective Subjective Date of Service: 08/21/24 <Justina Rodriguez PA-C - Last Filed: 08/21/24 10:53> 08/21/24 <Kirill Muhammad MD - Last Filed: 08/21/24 14:43> Interval history: Only has pain during dressing changes. States she is somewhat improving. <Justina Rodriguez PA-C - Last Filed: 08/21/24 10:53> Physical Exam 2 Vital Signs: Vital Signs: Last Vital Signs Temp 96.8 F 08/21/24 07:15 Pulse 93 08/21/24 07:15 Resp 18 08/21/24 07:15 BP 157/83 H 08/21/24 07:15 Pulse Ox 97 08/21/24 07:15 O2 Del Method Room Air 08/21/24 07:15 BMI result Body Mass Index 31.2 <LAZARUS Hopson Last Filed: 08/21/24 10:53> Const: General: comfortable, no acute distress and alert <Justina Rodriguez PA-C - Last Filed: 08/21/24 10:53> Resp: Effort & Inspection: normal respiratory effort <Justina Rodriguez PA-C - Last Filed: 08/21/24 10:53> Extrem: Other: left lower leg wound, posterior aspect with scant necrotic tissue at wound edges, some fibrinous slough on wound bed with patches of granulation left heel wound with persistent necrotic tissue surrounding wound, granulation centrally <Justina Rodriguez PA-C - Last Filed: 08/21/24 10:53> Objective Data Active Medications Alprazolam (Alprazolam 0.5 Mg Tablet) 0.5 mg PO BEDTIME PRN PRN Reason: Anxiety Last Admin: 08/20/24 19:47 Dose: 0.5 mg Documented By: LYSDaniel Apixaban (Apixaban 5 Mg Tablet) 5 mg PO BID [facility] Atorvastatin Calcium (Atorvastatin Calcium 80 Mg Tablet) 80 mg PO DAILY [facility] Last Admin: 08/21/24 09:40 Dose: 80 mg Documented By: SADE Baclofen (Baclofen 10 Mg Tablet) 10 mg PO TID [facility] Last Admin: 08/21/24 09:40 Dose: 10 mg Documented By: SADE Calcium Carbonate (Calcium Carbonate 750 Mg Tab.Chew) 750 mg PO Q4H PRN PRN Reason: Heartburn Collagenase (Collagenase Clostridium Hist. 30 Gm Tube) 1 appl TOPICAL DAILY [facility]; Protocol Last Admin: 08/21/24 09:41 Dose: 1 appl Documented By: SADE Duloxetine HCl (Duloxetine Hcl 30 Mg Capsule.Dr) 30 mg PO DAILY [facility] Last Admin: 08/21/24 09:40 Dose: 30 mg Documented By: SADE Empagliflozin (Empagliflozin 25 Mg Tablet) 25 mg PO DAILY [facility] Last Admin: 08/21/24 09:40 Dose: 25 mg Documented By: SADE Gabapentin (Gabapentin 100 Mg Capsule) 100 mg PO TID [facility] Last Admin: 08/21/24 09:40 Dose: 100 mg Documented By: SADE Glucose (Glucose Gel 15 Gm Gel..Gram.) 15 gm PO Q15M PRN; Protocol PRN Reason: per Hypoglycemia Standing Ord. Hydromorphone HCl (Hydromorphone Hcl 0.5 Mg/0.5 Ml Syringe) 0.5 mg IVPUSH Q3H PRN; Protocol PRN Reason: Pain, Severe (Pain Scale 7-10) Last Admin: 08/21/24 06:38 Dose: 0.5 mg Documented By: ADRIANA Dextrose (D10) 250 mls @ 750 mls/hr IV Q15M PRN; Protocol PRN Reason: per Hypoglycemia Standing Ord. Doxycycline Hyclate 100 mg/ (Sodium Chloride) 250 mls @ 166.67 mls/hr IV Q12H [facility] Last Infusion: 08/21/24 02:21 Dose: Infused Documented By: ADRIANA Sodium Chloride (Ns) 1,000 mls @ 100 mls/hr IVCONT .Q10H [facility] Insulin Glargine (Insulin Glargine,Hum.Rec.Anlog 100 Unit/Ml 10 Ml Vial) 25 unit SUBCUT BID [facility] Last Admin: 08/21/24 09:46 Dose: 25 unit Documented By: SADE Insulin Human Lispro (Insulin Lispro 100 Unit/Ml 3 Ml Vial) 0 unit SUBCUT QIDACHS [facility]; Protocol Last Admin: 08/21/24 09:46 Dose: 4 unit Documented By: SADE Losartan Potassium (Losartan Potassium 25 Mg Tablet) 25 mg PO DAILY [facility]; Protocol Last Admin: 08/21/24 09:40 Dose: 25 mg Documented By: SADE Magnesium Hydroxide (Milk Of Magnesia 30 Ml Oral.Susp) 30 ml PO DAILY PRN PRN Reason: Constipation Melatonin (Melatonin 3 Mg Tablet) 6 mg PO BEDTIME PRN PRN Reason: Insomnia Last Admin: 08/21/24 02:09 Dose: 6 mg Documented By: ADRIANA Methadone HCl (Methadone Hcl 20 Mg/2 Ml Oral.Conc) 140 mg PO DAILY [facility] Last Admin: 08/21/24 09:37 Dose: 140 mg Documented By: SADE Co-signed By: JEFFERSON Naloxone HCl (Naloxone Hcl 0.4 Mg/Ml Vial) 0.04 mg IVPUSH Q5M PRN PRN Reason: Excessive sedation or RR < 8 Naloxone HCl (Naloxone Hcl 0.4 Mg/Ml Vial) 0.04 mg IVPUSH Q5M PRN PRN Reason: Excessive sedation or RR < 8 Nicotine (Nicotine 14 Mg Patch.Td24) 14 mg TRANSDERMA DAILY [facility] Last Admin: 08/21/24 09:42 Dose: 14 mg Documented By: SADE Ondansetron HCl (Ondansetron Hcl 4 Mg/2 Ml Vial) 4 mg IVPUSH Q8H PRN PRN Reason: Nausea and Vomiting Oxycodone HCl (Oxycodone Hcl Immed Release 5 Mg Tablet) 5 mg PO Q6H PRN PRN Reason: Pain, Moderate(Pain Scale 4-6) Last Admin: 08/21/24 07:52 Dose: 5 mg Documented By: SADE Sodium Chloride (0.9 % Sodium Chloride Flush 3 Ml Syringe) 3 ml IVFLUSH QSHIFT [facility] Last Admin: 08/21/24 09:47 Dose: 3 ml Documented By: SADE <Justina Rodriguez PA-C - Last Filed: 08/21/24 10:53> Labs CBC & Chem 7: 08/20/24 10:45 08/20/24 10:46 <Justina Rodriguez PA-C - Last Filed: 08/21/24 10:53> Labs: Laboratory Results - last 24 hr 08/20/24 08/20/24 08/20/24 10:45 10:46 11:02 MCV 82.0 MCH 26.4 L MCHC 32.1 RDW 14.8 Plt Count 470 H MPV 9.7 Absolute Nucleated RBC 0.000 Nucleated RBC % (auto) 0.0 Estim Creat Clear Calc 105.5 105.5 Estimated GFR > 60 > 60 POC Glucose 185 H Magnesium 2.0 Random Vancomycin 08/20/24 08/20/24 08/20/24 16:59 18:15 20:30 MCV MCH MCHC RDW Plt Count MPV Absolute Nucleated RBC Nucleated RBC % (auto) Estim Creat Clear Calc Estimated GFR POC Glucose 208 H 228 H Magnesium Random Vancomycin 13.8 L 08/21/24 07:18 MCV MCH MCHC RDW Plt Count MPV Absolute Nucleated RBC Nucleated RBC % (auto) Estim Creat Clear Calc Estimated GFR POC Glucose 206 H Magnesium Random Vancomycin <Justina Rodriguez PA-C - Last Filed: 08/21/24 10:53> Procedures Date of Service Date of Service: 08/21/24 <Justina Rodriguez PA-C - Last Filed: 08/21/24 10:53> 08/21/24 <Kirill Muhammad MD - Last Filed: 08/21/24 14:43> Progress Note: A&P Assessment and plan (1) Eschar of lower leg: Status: Acute <Justina Rodriguez PA-C - Last Filed: 08/21/24 10:53> Assessment and Plan: seen and examined independently. I was present during the dressings change. 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 Overall improving, patient tolerating dressing changes better. Cont wet to dry to large wound of posterior left lower leg with santyl to left heel wound base followed by fluffs, abd dressings and kerlix wrap. No further surgical debridement needed for now. Vascular consult for evaluation. <Justina Rodriguez PA-C - Last Filed: 08/21/24 10:53> Time Spent With Patient Time: Total time managing care of this patient today ____ minutes. <Justina Rodriguez PA-C - Last Filed: 08/21/24 10:53> Quality Stroke Does the patient have a stroke diagnosis?: No <Justina Rodriguez PA-C - Last Filed: 08/21/24 10:53> VTE Prior VTE?: Yes <Justina Rodriguez PA-C - Last Filed: 08/21/24 10:53> VTE Risk Level:: Medical - moderate - high <Justina Rodriguez PA-C - Last Filed: 08/21/24 10:53> VTE Device Contraindication: Treatment Not Indicated <Justina Rodriguez PA-C - Last Filed: 08/21/24 10:53> VTE Drug Contraindication: N/A - Med Ordered <Justina Rodriguez PA-C - Last Filed: 08/21/24 10:53>
[2024-08-21 11:48] LABS: Glucose, Whole Blood 203 mg/dL (60-115)
[2024-08-21 12:00] VITALS: BP 123/77; PULSE 90; RESP 18; TEMP 36.4; O2SAT 96
[2024-08-21 15:15] VITALS: BP 128/92; PULSE 86; RESP 14; TEMP 35.9; O2SAT 96
--- NOTE | 2024-08-21 15:34 | MHC.CM.PN ---
per rounds pt is a vascular pt dc plan is for home
[2024-08-21 16:14] LABS: Glucose, Whole Blood 203 mg/dL (60-115)
[2024-08-21 19:51] VITALS: BP 160/80; PULSE 96; RESP 18; TEMP 36.4; O2SAT 96
[2024-08-21 20:32] LABS: Glucose, Whole Blood 228 mg/dL (60-115)
[2024-08-21] MEDS: ALPRAZolam 0.5 MG TABLET PO (22:20)
[2024-08-22] VITALS (29 sets, daily range): BP systolic 130–168; BP diastolic 67–98; PULSE 90–113; RESP 12–27; TEMP 36.2–37.2; O2SAT 93–100
[2024-08-22] MEDS: HYDROmorphone HCl 0.5 MG/0.5 ML SYRINGE IVPUSH ×4 (01:20→14:27)
[2024-08-22] MEDS: 0.9 % Sodium Chloride 1,000 ML 100 ML IVCONT (06:19)
--- NOTE | 2024-08-22 07:07 | P.CDIM_ITS ---
PROVIDER RESPONSE TEXT: To clarify, the appropriate diagnosis supported by the clinical indicators: Yes, Cellulitis is related to / associated with / due to DM QUERY TEXT: PHYSICIAN'S DOCUMENTATION REQUEST Date of Query: 08/20/2024 10:53 AM EST Patient Name: Marilou Siddiqui Admit Date: 08/18/2024 Dear Serge Chaudhari MD, A review of the medical record indicates additional documentation may be needed. Please review below and update the documentation accordingly. Documentation includes the conditions of Diabetes Mellitus and Cellulitis. Clinical Indicators: PAD vs neuropathy vs cellulitis s/p debridement left lower extremity 08/19/24 IV Doxycycline Please clarify the relationship between these conditions: Yes, Cellulitis is related to / associated with / due to DM No, Cellulitis is not related to / associated with / due to DM Other (explain) Clinically unable to determine (explain) Thank you, Jahaira Borjas RN Use of terms such as suspected, likely, concern for, or probable (associated with a specific diagnosi s that is being evaluated, monitored, or treated as if it exists) are acceptable and can be coded in the inpatient se tting, when documented at the time of discharge. Please use your independent medical judgment in providing your response. THIS QUERY IS PART OF THE PERMANENT MEDICAL RECORD
[2024-08-22 07:27] LABS: Glucose, Whole Blood 166 mg/dL (60-115)
[2024-08-22] MEDS: 0.9 % Sodium Chloride Flush 3 ML SYRINGE IVFLUSH ×3 (07:29→20:56)
[2024-08-22] MEDS: fentaNYL citrate/PF 100 MCG/2 ML VIAL 25 MCG IVPUSH ×4 (08:37→09:18)
[2024-08-22] MEDS: Midazolam HCl 2 MG/2 ML VIAL 0.5 MG IVPUSH ×4 (08:37→09:18)
[2024-08-22] MEDS: Heparin Sodium,Porcine 10,000 UNIT/10 ML VIAL 5000 UNIT IVPUSH ×2 (09:05→09:16)
--- NOTE | 2024-08-22 09:22 | P.CDIM_ITS ---
PROVIDER RESPONSE TEXT: To clarify, the appropriate diagnosis supported by the clinical indicators: Pressure (decubitus) ulcer coccyx, unstageable QUERY TEXT: PHYSICIAN'S DOCUMENTATION REQUEST Date of Query: 08/22/2024 09:14 AM EST Patient Name: Marilou Siddiqui Admit Date: 08/18/2024 Dear Serge Chaudhari MD, A review of the medical record indicates additional documentation may be needed. Please review below and update the documentation accordingly. Clinical Indicators: Per Wound Note 08/21/24: Unstageable pressure injury coccyx, present on admission. Triad and foam dressing Based on the above, could you please provide further information regarding the ulcer/wound: Pressure (decubitus) ulcer coccyx, unstageable Other (explain) Clinically unable to determine (explain) Thank you, Jahaira Borjas RN Use of terms such as suspected, likely, concern for, or probable (associated with a specific diagnosi s that is being evaluated, monitored, or treated as if it exists) are acceptable and can be coded in the inpatient se tting, when documented at the time of discharge. Please use your independent medical judgment in providing your response. THIS QUERY IS PART OF THE PERMANENT MEDICAL RECORD
--- NOTE | 2024-08-22 09:33 | P.CDIM_ITS ---
PROVIDER RESPONSE TEXT: To clarify, the appropriate diagnosis supported by the clinical indicators: skin breakdown only QUERY TEXT: PHYSICIAN'S DOCUMENTATION REQUEST Date of Query: 08/22/2024 09:16 AM EST Patient Name: Marilou Siddiqui Admit Date: 08/18/2024 Dear Serge Chaudhari MD, A review of the medical record indicates additional documentation may be needed. Please review below and update the documentation accordingly. Clinical Indicators: Per Wound note 08/21/24: Left heel diabetic wound, necrotic tissue Santyl for enzymatic debridement Based on the above, could you please provide further information regarding the depth of the ulcer/wou nd: skin breakdown only exposed fat layer, subcutaneous tissue muscle involvement without evidence of necrosis muscle necrosis bone involvement without evidence of necrosis bone necrosis Other (explain) Clinically unable to determine (explain) Thank you, Jahaira Borjas RN Use of terms such as suspected, likely, concern for, or probable (associated with a specific diagnosi s that is being evaluated, monitored, or treated as if it exists) are acceptable and can be coded in the inpatient se tting, when documented at the time of discharge. Please use your independent medical judgment in providing your response. THIS QUERY IS PART OF THE PERMANENT MEDICAL RECORD
--- NOTE | 2024-08-22 09:56 | P.OP_ITS ---
Operative Note Operative Note Date of Service: 08/22/24 Narrative: Angiogram report from [facility] Preoperative diagnosis: Atherosclerosis of left lower extremity with nonhealing ulcer Postoperative diagnosis: Same Procedure: 1. Ultrasound-guided right common femoral access 2. Aortogram with left lower extremity runoff 3. Left SFA plasty and stent Surgeon:Vasu Ferrell M.D., FACS, RPVI Superintendent [employer] [place]:None Anesthesia: Local with moderate conscious sedation. Total intraservice moderate sedation time was 52 minutes. I monitored the patient's level of consciousness and physiologic status continuously throughout the procedure. Specimens:none Drains:none Estimated blood loss: Less than 10 ml Implant: Medtronic Ev 3 6 x 80 stent, Medtronic Impact DCB 6 x 80 Indications: Complex diabetic 54-year-old with nonhealing left lower extremity ulcer. Had noninvasive testing which demonstrated severe left SFA disease. Now presents for endovascular intervention The patient has signed the informed consent after reviewing risks, complications, benefits, and alternatives previously discussed with the patient. The patient was given the opportunity to ask any additional questions or voice any concerns. All questions were answered to the patient's satisfaction. Procedure in detail: Patient was brought to the angiography suite prior to which a time-out was called for patient identification and site verification. Bilateral groins were prepped and draped in the standard surgical fashion. Under ultrasound guidance right common femoral was punctured with micro puncture needle and wire. Subsequently a precision 5 Barbadian sheath was then placed. Bentson wire was advanced to the level of the aorta. 5 Barbadian Flush catheter was brought up and parked at the level of the renal arteries. Aortogram was then undertaken. Catheter was brought down to the level of the iliac bifurcation. Iliacs were subsequently imaged. Catheter was then brought in up and over to the left side SFA. Runoff study was then undertaken. At this time SFA occlusion was noted. 5000 units of systemic heparin was administered. After an ACT in 5 minutes an additional 1000 was given. We placed an up and over 6 Barbadian sheath. Through this we advanced a Glidewire advantage across the SFA lesion. We 1st plasty this with a 6 x 60 regular balloon. We subsequently followed this up with a 6 x 80 stent and post plasty we brought in a drug coated balloon 6 x 80. This was brought into position in under 3 minutes and insufflated for a total of 3 minutes in duration. We brought the catheter wire sheath back to the ipsilateral side. StarClose closure device was deployed. Patient tolerated the procedure well and returned to recovery with stable vitals. Interpretation of films: 1. Ultrasound demonstrates appropriate femoral access site. Vessel was patent with minimal stenosis. Needle entry was visualized. Image of ultrasound was saved. 2. Aortogram demonstrates appropriate caliber aorta. Minimal disease. Appropriate take-off of the renals. 3. Iliac images demonstrate no significant disease 4. Left Leg Common femoral artery: No significant disease Profundus Femoris: No significant disease Superficial femoral artery: Total occlusion mid SFA with reconstitution at the above knee popliteal Popliteal artery (p1,p2,p3): Minimal disease Anterior tibial artery: Dominant runoff Peroneal artery: Occludes in proximal 3rd Posterior tibial artery: Not present Dorsalis pedis/plantar arch: Incomplete Conclusion: 1. Successful plasty and stent of left SFA. 2. Anticoagulation status: Will continue with aspirin and Eliquis. This note is constructed using voice recognition software. While every effort has been made to ensure accuracy, education program associate errors may have been included. Thank you for allowing me to participate in the care of your patient. Yours sincerely, Vasu Ferrell MD, FACS, R.P.V.I.
[2024-08-22] MEDS: HYDROmorphone HCl 1 MG/ML SYRINGE IVPUSH ×2 (10:08→10:56)
--- NOTE | 2024-08-22 12:22 | PM.EVENT ---
Event Note Date of Service: 08/22/24 Event Note: Seen earlier this morning She underwent angiogram with Dr. Ferrell Noted to have SFA disease on the left, stenting and plasty done Dressings were changed during the procedure Continue wound care Time Spent With Patient Time: Total time managing care of this patient today ____ minutes.
[2024-08-22 12:25] LABS: Glucose, Whole Blood 233 mg/dL (60-115)
[2024-08-22] MEDS: DULoxetine HCl 30 MG CAPSULE.DR PO (12:31)
[2024-08-22] MEDS: Atorvastatin Calcium 80 MG TABLET PO (12:31)
[2024-08-22] MEDS: Losartan Potassium 25 MG TABLET PO (12:31)
[2024-08-22] MEDS: Nicotine 14 MG PATCH.TD24 TRANSDERMA (12:32)
[2024-08-22] MEDS: oxyCODONE HCl Immed Release 5 MG TABLET PO ×2 (12:37→19:51)
[2024-08-22] MEDS: methADONE HCl 20 MG/2 ML ORAL.CONC 140 MG PO (12:40)
[2024-08-22] MEDS: Insulin Glargine,Hum.rec.anlog 100 UNIT/ML 10 ML VIAL 25 UNIT SUBCUT (12:42)
[2024-08-22] MEDS: Insulin Lispro 100 UNIT/ML 3 ML VIAL SUBCUT ×3 (12:42→20:55)
[2024-08-22] MEDS: Doxycycline Hyclate 100 MG in 0.9 % Sodium Chloride 250 ML 166.67 MG IV (14:28)
[2024-08-22 15:55] LABS: ACT 173 Celite s (79-173)
[2024-08-22] MEDS: Gabapentin 100 MG CAPSULE PO ×2 (15:58→20:55)
[2024-08-22] MEDS: Baclofen 10 MG TABLET PO ×2 (15:58→20:55)
[2024-08-22] MEDS: Aspirin 325 MG TABLET 650 MG PO (16:04)
--- NOTE | 2024-08-22 16:08 | P.PNIM_ITS ---
Subjective Subjective Date of Service: 08/22/24 Interval History: Still with pain in the leg no new issues, had angiogram with stent today and doing ok Physical Exam 2 Vital Signs: Vital Signs: Last Vital Signs Temp 97.6 F 08/22/24 15:02 Pulse 99 08/22/24 15:02 Resp 18 08/22/24 15:02 BP 137/85 08/22/24 15:02 Pulse Ox 94 08/22/24 15:02 O2 Del Method Room Air 08/22/24 15:02 O2 Flow Rate 0 08/22/24 10:37 BMI result Body Mass Index 31.2 Const: Other: General: AO X 3, no acute distress Resp: CTA bilateral CVS: S1,S2,RRR GI: +BS, NT, no distention Skin: wounds debrided and dressing in place Neuro: motor grossly intact Psych: appropriate affect Objective Data Active Medications Acetaminophen (Acetaminophen 325 Mg Tablet) 650 mg PO Q6H PRN PRN Reason: Pain, Mild (Pain Scale 1-3) Alprazolam (Alprazolam 0.5 Mg Tablet) 0.5 mg PO BEDTIME PRN PRN Reason: Anxiety Last Admin: 08/21/24 22:20 Dose: 0.5 mg Documented By: ADRIANA Apixaban (Apixaban 5 Mg Tablet) 5 mg PO BID [facility] Last Admin: 08/21/24 10:59 Dose: Not Given Documented By: SADE Non-Admin Reason: Physician Held Med Aspirin (Aspirin 81 Mg Tab.Chew) 81 mg PO DAILY [facility] Atorvastatin Calcium (Atorvastatin Calcium 80 Mg Tablet) 80 mg PO DAILY [facility] Last Admin: 08/22/24 12:31 Dose: 80 mg Documented By: SADE Baclofen (Baclofen 10 Mg Tablet) 10 mg PO TID [facility] Last Admin: 08/22/24 15:58 Dose: 10 mg Documented By: SADE Calcium Carbonate (Calcium Carbonate 750 Mg Tab.Chew) 750 mg PO Q4H PRN PRN Reason: Heartburn Collagenase (Collagenase Clostridium Hist. 30 Gm Tube) 1 appl TOPICAL DAILY [facility]; Protocol Last Admin: 08/22/24 16:07 Dose: Not Given Documented By: SADE Non-Admin Reason: Patient Refused Duloxetine HCl (Duloxetine Hcl 30 Mg Vahe.) 30 mg PO DAILY [facility] Last Admin: 08/22/24 12:31 Dose: 30 mg Documented By: SADE Empagliflozin (Empagliflozin 25 Mg Tablet) 25 mg PO DAILY [facility] Last Admin: 08/21/24 09:40 Dose: 25 mg Documented By: SADE Gabapentin (Gabapentin 100 Mg Capsule) 100 mg PO TID [facility] Last Admin: 08/22/24 15:58 Dose: 100 mg Documented By: SADE Glucose (Glucose Gel 15 Gm Gel..Gram.) 15 gm PO Q15M PRN; Protocol PRN Reason: per Hypoglycemia Standing Ord. Hydromorphone HCl (Hydromorphone Hcl 0.5 Mg/0.5 Ml Syringe) 0.5 mg IVPUSH Q3H PRN; Protocol PRN Reason: Pain, Severe (Pain Scale 7-10) Last Admin: 08/22/24 14:27 Dose: 0.5 mg Documented By: SADE Dextrose (D10) 250 mls @ 750 mls/hr IV Q15M PRN; Protocol PRN Reason: per Hypoglycemia Standing Ord. Doxycycline Hyclate 100 mg/ (Sodium Chloride) 250 mls @ 166.67 mls/hr IV Q12H [facility] Last Admin: 08/22/24 14:28 Dose: 166.67 mls/hr Documented By: SADE Insulin Glargine (Insulin Glargine,Hum.Rec.Anlog 100 Unit/Ml 10 Ml Vial) 25 unit SUBCUT BID [facility] Last Admin: 08/22/24 12:42 Dose: 25 unit Documented By: SADE Insulin Human Lispro (Insulin Lispro 100 Unit/Ml 3 Ml Vial) 0 unit SUBCUT QIDACHS [facility]; Protocol Last Admin: 08/22/24 12:42 Dose: 4 unit Documented By: SADE Losartan Potassium (Losartan Potassium 25 Mg Tablet) 25 mg PO DAILY [facility]; Protocol Last Admin: 08/22/24 12:31 Dose: 25 mg Documented By: SAED Magnesium Hydroxide (Milk Of Magnesia 30 Ml Oral.Susp) 30 ml PO DAILY PRN PRN Reason: Constipation Melatonin (Melatonin 3 Mg Tablet) 6 mg PO BEDTIME PRN PRN Reason: Insomnia Last Admin: 08/21/24 02:09 Dose: 6 mg Documented By: LYSZ Methadone HCl (Methadone Hcl 20 Mg/2 Ml Oral.Conc) 140 mg PO DAILY [facility] Last Admin: 08/22/24 12:40 Dose: 140 mg Documented By: SADE Co-signed By: JEFFERSON Naloxone HCl (Naloxone Hcl 0.4 Mg/Ml Vial) 0.04 mg IVPUSH Q5M PRN PRN Reason: Excessive sedation or RR < 8 Naloxone HCl (Naloxone Hcl 0.4 Mg/Ml Vial) 0.04 mg IVPUSH Q5M PRN PRN Reason: Excessive sedation or RR < 8 Nicotine (Nicotine 14 Mg Patch.Td24) 14 mg TRANSDERMA DAILY [facility] Last Admin: 08/22/24 12:32 Dose: 14 mg Documented By: SADE Ondansetron HCl (Ondansetron Hcl 4 Mg/2 Ml Vial) 4 mg IVPUSH Q8H PRN PRN Reason: Nausea and Vomiting Oxycodone HCl (Oxycodone Hcl Immed Release 5 Mg Tablet) 5 mg PO Q6H PRN PRN Reason: Pain, Moderate(Pain Scale 4-6) Last Admin: 08/22/24 12:37 Dose: 5 mg Documented By: SADE Sodium Chloride (0.9 % Sodium Chloride Flush 3 Ml Syringe) 3 ml IVFLUSH QSHIFT [facility] Last Admin: 08/22/24 07:29 Dose: 3 ml Documented By: SADE Labs 08/20/24 10:45 08/20/24 10:46 Labs: Laboratory Results - last 24 hr 08/21/24 08/21/24 08/22/24 15:22 20:22 07:13 Activated Clotting Time POC Glucose 203 H 228 H 166 H 08/22/24 08/22/24 09:11 12:21 Activated Clotting Time 173 POC Glucose 233 H Assessment and Plan (1) Cellulitis: Status: Acute (2) DVT (deep venous thrombosis): Status: Acute Plan Patient is a 54-year-old female with a past medical history significant for peripheral arterial disease, type 2 diabetes on insulin, NSTEMI/CVA in 2021, DVT/bilateral PE on Eliquis, MRSA bacteremia polysubstance IV drug abuse, 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 intractable pain secondary to PAD vs neuropathy vs cellulitis, doesn't appear infected and blood cultures negative -was on vanco and zosyn, stopped 08/20, continue doxy for now -pain control with neurontin, oxycodone, change morphine to dilausid -surgical debridment yesterday 08/19 -had angiogram and stent today see vascular note DM, hypoglycemia resolved. reduced Lantus to 20 bid and adjustes as needed (usually 40 bid at home) -hold metformin, continue jardiance - SSI - diabetic diet obesity - BMI 31.2 - weight loss encouraged Opioid use disorde -resume Methadone once dose confirmed nicotine dependence - smoking cessation discussed and encouraged - nicotine patch hx DVT/PE - continue eliquis, full code VTE prophy: eliquis inpatient for possible cellulitis and need for wound debridment Pt eval tomorrow Quality Stroke Does the patient have a stroke diagnosis?: No VTE Prior VTE?: Yes VTE Risk Level:: Medical - moderate - high VTE Device Contraindication: Treatment Not Indicated VTE Drug Contraindication: N/A - Med Ordered
[2024-08-22 16:40] LABS: Glucose, Whole Blood 246 mg/dL (60-115)
[2024-08-22] MEDS: HYDROmorphone HCl 0.5 MG/0.5 ML SYRINGE 1 MG IVPUSH ×2 (17:37→20:56)
[2024-08-22 20:32] LABS: Glucose, Whole Blood 194 mg/dL (60-115)
[2024-08-22] MEDS: Insulin Glargine,Hum.rec.anlog 100 UNIT/ML 10 ML VIAL 30 UNIT SUBCUT (20:55)
[2024-08-23] VITALS (11 sets, daily range): BP systolic 105–137; BP diastolic 55–69; PULSE 89–98; RESP 16–20; TEMP 36.1–37; O2SAT 93–100
[2024-08-23] MEDS: Doxycycline Hyclate 100 MG in 0.9 % Sodium Chloride 250 ML 166.67 MG IV ×2 (00:26→14:15)
[2024-08-23] MEDS: HYDROmorphone HCl 0.5 MG/0.5 ML SYRINGE 1 MG IVPUSH ×6 (00:26→22:23)
[2024-08-23 07:41] LABS: Glucose, Whole Blood 198 mg/dL (60-115)
[2024-08-23] MEDS: Gabapentin 100 MG CAPSULE PO ×3 (07:48→21:38)
[2024-08-23] MEDS: Losartan Potassium 25 MG TABLET PO (07:48)
[2024-08-23] MEDS: DULoxetine HCl 30 MG CAPSULE.DR PO (07:48)
[2024-08-23] MEDS: Atorvastatin Calcium 80 MG TABLET PO (07:48)
[2024-08-23] MEDS: Baclofen 10 MG TABLET PO ×3 (07:48→21:38)
[2024-08-23] MEDS: Aspirin 81 MG TAB.CHEW PO (07:49)
[2024-08-23] MEDS: Nicotine 14 MG PATCH.TD24 TRANSDERMA (07:52)
[2024-08-23] MEDS: methADONE HCl 20 MG/2 ML ORAL.CONC 140 MG PO (07:53)
[2024-08-23] MEDS: Insulin Lispro 100 UNIT/ML 3 ML VIAL SUBCUT ×4 (08:06→21:40)
[2024-08-23] MEDS: Insulin Glargine,Hum.rec.anlog 100 UNIT/ML 10 ML VIAL 30 UNIT SUBCUT ×2 (08:06→21:41)
[2024-08-23] MEDS: Apixaban 5 MG TABLET PO ×2 (08:13→21:38)
--- NOTE | 2024-08-23 08:17 | HO.PM.IMPN ---
Subjective Subjective Date of Service: 08/23/24 Interval History: Persistent pain in the leg, pain medication adjusted, increased Physical Exam Vital Signs: Vital Signs: Last Vital Signs Temp 98.6 F 08/23/24 07:27 Pulse 98 08/23/24 07:27 Resp 16 08/23/24 08:07 BP 131/69 08/23/24 07:27 Pulse Ox 96 08/23/24 07:27 O2 Del Method Room Air 08/23/24 07:27 O2 Flow Rate 0 08/22/24 10:37 BMI result Body Mass Index 31.2 Const: Other: General: AO X 3, no acute distress Resp: CTA bilateral CVS: S1,S2,RRR GI: +BS, NT, no distention Skin: wounds debrided and dressing in place Neuro: motor grossly intact Psych: appropriate affect Objective Data Active Medications Acetaminophen (Acetaminophen 325 Mg Tablet) 650 mg PO Q6H PRN PRN Reason: Pain, Mild (Pain Scale 1-3) Alprazolam (Alprazolam 0.5 Mg Tablet) 0.5 mg PO BEDTIME PRN PRN Reason: Anxiety Last Admin: 08/21/24 22:20 Dose: 0.5 mg Documented By: ADRIANA Apixaban (Apixaban 5 Mg Tablet) 5 mg PO BID [facility] Last Admin: 08/23/24 08:13 Dose: 5 mg Documented By: CHICHI Aspirin (Aspirin 81 Mg Tab.Chew) 81 mg PO DAILY [facility] Last Admin: 08/23/24 07:49 Dose: 81 mg Documented By: CHICHI Atorvastatin Calcium (Atorvastatin Calcium 80 Mg Tablet) 80 mg PO DAILY [facility] Last Admin: 08/23/24 07:48 Dose: 80 mg Documented By: CHICHI Baclofen (Baclofen 10 Mg Tablet) 10 mg PO TID [facility] Last Admin: 08/23/24 07:48 Dose: 10 mg Documented By: CHICHI Calcium Carbonate (Calcium Carbonate 750 Mg Tab.Chew) 750 mg PO Q4H PRN PRN Reason: Heartburn Collagenase (Collagenase Clostridium Hist. 30 Gm Tube) 1 appl TOPICAL DAILY [facility]; Protocol Last Admin: 08/22/24 16:07 Dose: Not Given Documented By: SADE Non-Admin Reason: Patient Refused Duloxetine HCl (Duloxetine Hcl 30 Mg Vahe.) 30 mg PO DAILY [facility] Last Admin: 08/23/24 07:48 Dose: 30 mg Documented By: CHICHI Empagliflozin (Empagliflozin 25 Mg Tablet) 25 mg PO DAILY [facility] Last Admin: 08/21/24 09:40 Dose: 25 mg Documented By: GRAZJUAN JOSE Gabapentin (Gabapentin 100 Mg Capsule) 100 mg PO TID [facility] Last Admin: 08/23/24 07:48 Dose: 100 mg Documented By: CHICHI Glucose (Glucose Gel 15 Gm Gel..Gram.) 15 gm PO Q15M PRN; Protocol PRN Reason: per Hypoglycemia Standing Ord. Hydromorphone HCl (Hydromorphone Hcl 0.5 Mg/0.5 Ml Syringe) 1 mg IVPUSH Q3H PRN; Protocol PRN Reason: Pain, Severe (Pain Scale 7-10) Last Admin: 08/23/24 08:07 Dose: 1 mg Documented By: CHICHI Dextrose (D10) 250 mls @ 750 mls/hr IV Q15M PRN; Protocol PRN Reason: per Hypoglycemia Standing Ord. Doxycycline Hyclate 100 mg/ (Sodium Chloride) 250 mls @ 166.67 mls/hr IV Q12H [facility] Last Infusion: 08/23/24 01:56 Dose: Infused Documented By: ADRIANA Insulin Glargine (Insulin Glargine,Hum.Rec.Anlog 100 Unit/Ml 10 Ml Vial) 30 unit SUBCUT BID [facility] Last Admin: 08/23/24 08:06 Dose: 30 unit Documented By: CHICHI Insulin Human Lispro (Insulin Lispro 100 Unit/Ml 3 Ml Vial) 0 unit SUBCUT QIDACHS [facility]; Protocol Last Admin: 08/23/24 08:06 Dose: 2 unit Documented By: CHICHI Losartan Potassium (Losartan Potassium 25 Mg Tablet) 25 mg PO DAILY [facility]; Protocol Last Admin: 08/23/24 07:48 Dose: 25 mg Documented By: CHICHI Magnesium Hydroxide (Milk Of Magnesia 30 Ml Oral.Susp) 30 ml PO DAILY PRN PRN Reason: Constipation Melatonin (Melatonin 3 Mg Tablet) 6 mg PO BEDTIME PRN PRN Reason: Insomnia Last Admin: 08/21/24 02:09 Dose: 6 mg Documented By: ADRIANA Methadone HCl (Methadone Hcl 20 Mg/2 Ml Oral.Conc) 140 mg PO DAILY [facility] Last Admin: 08/23/24 07:53 Dose: 140 mg Documented By: CHCIHI Co-signed By: VIRGILIO Naloxone HCl (Naloxone Hcl 0.4 Mg/Ml Vial) 0.04 mg IVPUSH Q5M PRN PRN Reason: Excessive sedation or RR < 8 Naloxone HCl (Naloxone Hcl 0.4 Mg/Ml Vial) 0.04 mg IVPUSH Q5M PRN PRN Reason: Excessive sedation or RR < 8 Nicotine (Nicotine 14 Mg Patch.Td24) 14 mg TRANSDERMA DAILY [facility] Last Admin: 08/23/24 07:52 Dose: 14 mg Documented By: CHICHI Ondansetron HCl (Ondansetron Hcl 4 Mg/2 Ml Vial) 4 mg IVPUSH Q8H PRN PRN Reason: Nausea and Vomiting Oxycodone HCl (Oxycodone Hcl Immed Release 5 Mg Tablet) 5 mg PO Q6H PRN PRN Reason: Pain, Moderate(Pain Scale 4-6) Last Admin: 08/22/24 19:51 Dose: 5 mg Documented By: ADRIANA Sodium Chloride (0.9 % Sodium Chloride Flush 3 Ml Syringe) [facility] Admin: 08/22/24 20:56 Dose: 3 ml Documented By: ADRIANA Labs 08/20/24 10:45 08/20/24 10:46 Labs: Laboratory Results - last 24 hr 08/22/24 08/22/24 08/22/24 09:11 12:21 16:32 Activated Clotting Time 173 POC Glucose 233 H 246 H 08/22/24 08/23/24 20:26 07:28 Activated Clotting Time POC Glucose 194 H 198 H Microbiology Microbiology Results: Microbiology 08/17/24 20:52 Blood Culture - Final Blood - Venous No growth after 5 days. 08/17/24 18:50 Blood Culture - Final Blood - Venous No growth after 5 days. 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 intractable pain secondary to PAD vs neuropathy vs cellulitis, doesn't appear infected and blood cultures negative -was on vanco and zosyn, stopped 08/20, continue doxy for now -pain control with neurontin, oxycodone, change morphine to dilausid -surgical debridment yesterday 08/19 -had angiogram and stent today see vascular note--Noted to have SFA disease on the left, stenting and plasty done, adding ASA -vascular and surgery recommends wound-vac DM, hypoglycemia resolved. reduced Lantus to 300 bid and adjustes as needed (usually 40 bid at home) -hold metformin, continue jardiance - SSI - diabetic diet obesity - BMI 31.2 - weight loss encouraged Opioid use disorde -resume Methadone once dose confirmed nicotine dependence - smoking cessation discussed and encouraged - nicotine patch hx DVT/PE - continue raine, full code VTE prophy: eliquis inpatient for possible cellulitis and need for wound debridment Pt eval tomorrow Quality Stroke Does the patient have a stroke diagnosis?: No VTE Prior VTE?: Yes VTE Risk Level:: Medical - moderate - high VTE Device Contraindication: Treatment Not Indicated VTE Drug Contraindication: N/A - Med Ordered
[2024-08-23] MEDS: 0.9 % Sodium Chloride Flush 3 ML SYRINGE IVFLUSH (08:19)
--- NOTE | 2024-08-23 08:43 | HO.VASCPN ---
Subjective Subjective Date of Service: 08/23/24 Interval history: Marilou is doing okay this morning. She continues to endorse significant amounts of pain. She is eating and drinking okay as well as sleeping okay. She does not have any new concerns or complaints this morning. She has no changes in her pain. Physical Exam Vital Signs: Vital Signs: Last Vital Signs Temp 98.6 F 08/23/24 07:27 Pulse 98 08/23/24 07:27 Resp 16 08/23/24 08:07 BP 131/69 08/23/24 07:27 Pulse Ox 96 08/23/24 07:27 O2 Del Method Room Air 08/23/24 07:27 O2 Flow Rate 0 08/22/24 10:37 BMI result Body Mass Index 31.2 Const: General: comfortable and no acute distress Orientation/consciousness: patient oriented x3 HEENT: Ears: hearing grossly normal bilaterally Resp: Effort & Inspection: normal respiratory effort and able to speak in complete sentences Auscultation: clear to auscultation bilaterally Cardio: Rate: regular rate Rhythm: regular rhythm Heart sounds: S1 normal heart sound present and S2 normal heart sound present Bruits: no abdominal aortic bruits, no carotid bruits, no femoral bruits and no renal bruits GI: Palpation (GI): No Abdominal aortic bruit present Neuro: General: patient oriented x3 Cranial nerves: Yes CN's II-XII intact bilaterally Extrem: Other: Left lower extremity: Leg wrapped in bandages, not taken down Progress Note: A&P Assessment and plan (1) Cellulitis: Status: Acute Assessment and Plan: Marilou remains stable. She continues to endorse significant amounts of pain. She is status post angio from yesterday where a balloon and stent were successfully placed. I had a discussion with Dr. Chauhdari this morning and we will have them order a wound VAC for her wound as well as start Eliquis and an aspirin a day. At a lengthy discussion with the patient with a wound VAC we will entail and now will help with dressing changes and have her successfully recovered from the wound. We discussed she will need to remain on the aspirin and Eliquis. At this point we will have her follow up with us outpatient, approximately 2 weeks from her discharge. Thank you for the consult, if there are any questions or concerns, please do not hesitate to reach out to us. Time Spent With Patient Time: Total time managing care of this patient today ____ minutes. Procedures Date of Service Date of Service: 08/23/24 Quality Stroke Does the patient have a stroke diagnosis?: No VTE Prior VTE?: Yes VTE Risk Level:: Medical - moderate - high VTE Device Contraindication: Treatment Not Indicated VTE Drug Contraindication: N/A - Med Ordered
[2024-08-23 09:04] LABS: Hematocrit 30.8 % (37.0-47.0); Hemoglobin 9.6 g/dl (12.0-16.0); Mean Corpuscular HGB Conc 31.2 g/dl (31.0-35.0); Mean Corpuscular Hemoglobin 26.1 pg (27.0-33.0); Mean Corpuscular Volume 83.7 fL (80.0-98.0); Mean Platelet Volume 9.1 fL (9.4-12.3); Platelet Count 529 X10*3/uL (160-400); Red Blood Count 3.68 X10*6/uL (4.20-5.50); Red Cell Distribution Width 15.1 % (11.0-16.0); White Blood Count 12.7 X10*3/uL (4.8-10.8)
[2024-08-23 09:27] LABS: Anion Gap 11 (12-20); Blood Urea Nitrogen 10 mg/dL (9-16); Calcium 8.5 mg/dL (8.4-10.2); Carbon Dioxide 29 mmol/L (22-29); Chloride 102 mmol/L (96-108); Creatinine Clr Calc Pharmacy 108.6; Estimated Glomerular Filt Rate > 60; Glucose Random 214 mg/dL (60-115); Potassium 3.7 mmol/L (3.3-5.1); Sodium 138 mmol/L (135-145)
--- NOTE | 2024-08-23 09:43 | MHC.CLN ---
F/U DIET=DIABETIC 2000 KCALS. UNSTAGEABLE PI TO [facility] PER WOUND RN 08/20. OFFERED ENSURE SUPPLEMENT AND PATIENT DOES NOT WANT. INTAKE APPEARS GOOD, 50-100%. FOLLOW FOR PO INTAKE AND SKIN INTEGRITY.
[2024-08-23] MEDS: oxyCODONE HCl Immed Release 5 MG TABLET PO ×2 (10:10→20:13)
[2024-08-23 11:33] LABS: Glucose, Whole Blood 195 mg/dL (60-115)
--- NOTE | 2024-08-23 11:42 | MHC.CM.PN ---
Per MD rounds, pt is not ready to dischrage today. 08/22/24 s/p Angio w stent placement. Pain management has been an issue. Pain medication dose increased. DP Home with resumption of [facility] [employer] [facility]. [facility] home care will resume Methadone delivery. Patient will need to transport via BLS.
[2024-08-23] MEDS: Collagenase Clostridium Hist. 30 GM TUBE 1 APPL TOPICAL (11:54)
[2024-08-23 15:46] LABS: Glucose, Whole Blood 184 mg/dL (60-115)
--- NOTE | 2024-08-23 19:42 | PC.NURSE ---
Patient agreed to have dressing change on the right stump but refused dressing change on the left leg, stated she didn't want it touched.
[2024-08-23 20:47] LABS: Glucose, Whole Blood 181 mg/dL (60-115)
[2024-08-23] MEDS: ALPRAZolam 0.5 MG TABLET PO (21:38)
[2024-08-24] VITALS (12 sets, daily range): BP systolic 116–134; BP diastolic 60–74; PULSE 81–94; RESP 15–18; TEMP 36.2–36.8; O2SAT 95–97
[2024-08-24] MEDS: 0.9 % Sodium Chloride Flush 3 ML SYRINGE IVFLUSH ×4 (00:25→21:44)
[2024-08-24] MEDS: Doxycycline Hyclate 100 MG in 0.9 % Sodium Chloride 250 ML 166.67 MG IV ×2 (00:25→13:44)
[2024-08-24] MEDS: HYDROmorphone HCl 0.5 MG/0.5 ML SYRINGE 1 MG IVPUSH ×7 (01:44→21:46)
[2024-08-24 07:45] LABS: Glucose, Whole Blood 159 mg/dL (60-115)
[2024-08-24] MEDS: Nicotine 14 MG PATCH.TD24 TRANSDERMA (08:58)
[2024-08-24] MEDS: Aspirin 81 MG TAB.CHEW PO (09:02)
[2024-08-24] MEDS: Baclofen 10 MG TABLET PO ×3 (09:02→21:44)
[2024-08-24] MEDS: Atorvastatin Calcium 80 MG TABLET PO (09:03)
[2024-08-24] MEDS: Gabapentin 100 MG CAPSULE PO ×3 (09:03→21:44)
[2024-08-24] MEDS: Apixaban 5 MG TABLET PO ×2 (09:03→21:45)
[2024-08-24] MEDS: DULoxetine HCl 30 MG CAPSULE.DR PO (09:03)
[2024-08-24] MEDS: Losartan Potassium 25 MG TABLET PO (09:03)
[2024-08-24] MEDS: Insulin Glargine,Hum.rec.anlog 100 UNIT/ML 10 ML VIAL 30 UNIT SUBCUT ×2 (09:06→21:45)
[2024-08-24] MEDS: Insulin Lispro 100 UNIT/ML 3 ML VIAL SUBCUT ×4 (09:06→21:45)
[2024-08-24] MEDS: methADONE HCl 20 MG/2 ML ORAL.CONC 140 MG PO (09:10)
--- NOTE | 2024-08-24 10:14 | HO.PM.IMPN ---
Subjective Subjective Date of Service: 08/24/24 Interval History: Pain is better controlled now Physical Exam Vital Signs: Vital Signs: Last Vital Signs Temp 97.5 F 08/24/24 08:00 Pulse 91 08/24/24 08:00 Resp 18 08/24/24 08:00 BP 128/67 08/24/24 08:00 Pulse Ox 96 08/24/24 08:00 O2 Del Method Room Air 08/24/24 08:00 O2 Flow Rate 0 08/22/24 10:37 BMI result Body Mass Index 31.2 Const: Other: General: AO X 3, no acute distress Resp: CTA bilateral CVS: S1,S2,RRR GI: +BS, NT, no distention Skin: wounds debrided and dressing in place Neuro: motor grossly intact Psych: appropriate affect Objective Data Active Medications Acetaminophen (Acetaminophen 325 Mg Tablet) 650 mg PO Q6H PRN PRN Reason: Pain, Mild (Pain Scale 1-3) Alprazolam (Alprazolam 0.5 Mg Tablet) 0.5 mg PO BEDTIME PRN PRN Reason: anxiety/restlessness Last Admin: 08/23/24 21:38 Dose: 0.5 mg Documented By: FRANCISCA Apixaban (Apixaban 5 Mg Tablet) 5 mg PO BID [facility] Last Admin: 08/24/24 09:03 Dose: 5 mg Documented By: SADE Aspirin (Aspirin 81 Mg Tab.Chew) 81 mg PO DAILY [facility] Last Admin: 08/24/24 09:02 Dose: 81 mg Documented By: SADE Atorvastatin Calcium (Atorvastatin Calcium 80 Mg Tablet) 80 mg PO DAILY [facility] Last Admin: 08/24/24 09:03 Dose: 80 mg Documented By: SADE Baclofen (Baclofen 10 Mg Tablet) 10 mg PO TID [facility] Last Admin: 08/24/24 09:02 Dose: 10 mg Documented By: SADE Calcium Carbonate (Calcium Carbonate 750 Mg Tab.Chew) 750 mg PO Q4H PRN PRN Reason: Heartburn Collagenase (Collagenase Clostridium Hist. 30 Gm Tube) 1 appl TOPICAL DAILY [facility]; Protocol Last Admin: 08/23/24 11:54 Dose: 1 appl Documented By: MOHAMER Duloxetine HCl (Duloxetine Hcl 30 Mg Capsule.Dr) 30 mg PO DAILY [facility] Last Admin: 08/24/24 09:03 Dose: 30 mg Documented By: SADE Empagliflozin (Empagliflozin 25 Mg Tablet) 25 mg PO DAILY [facility] Last Admin: 08/21/24 09:40 Dose: 25 mg Documented By: SADE Gabapentin (Gabapentin 100 Mg Capsule) 100 mg PO TID [facility] Last Admin: 08/24/24 09:03 Dose: 100 mg Documented By: SADE Glucose (Glucose Gel 15 Gm Gel..Gram.) 15 gm PO Q15M PRN; Protocol PRN Reason: per Hypoglycemia Standing Ord. Hydromorphone HCl (Hydromorphone Hcl 0.5 Mg/0.5 Ml Syringe) 1 mg IVPUSH Q3H PRN; Protocol PRN Reason: Pain, Severe (Pain Scale 7-10) Last Admin: 08/24/24 08:56 Dose: 1 mg Documented By: SADE Dextrose (D10) 250 mls @ 750 mls/hr IV Q15M PRN; Protocol PRN Reason: per Hypoglycemia Standing Ord. Doxycycline Hyclate 100 mg/ (Sodium Chloride) 250 mls @ 166.67 mls/hr IV Q12H [facility] Last Infusion: 08/24/24 01:55 Dose: Infused Documented By: TUMASY Insulin Glargine (Insulin Glargine,Hum.Rec.Anlog 100 Unit/Ml 10 Ml Vial) 30 unit SUBCUT BID [facility] Last Admin: 08/24/24 09:06 Dose: 30 unit Documented By: SADE Insulin Human Lispro (Insulin Lispro 100 Unit/Ml 3 Ml Vial) 0 unit SUBCUT QIDACHS [facility]; Protocol Last Admin: 08/24/24 09:06 Dose: 2 unit Documented By: SADE Losartan Potassium (Losartan Potassium 25 Mg Tablet) 25 mg PO DAILY [facility]; Protocol Last Admin: 08/24/24 09:03 Dose: 25 mg Documented By: SADE Magnesium Hydroxide (Milk Of Magnesia 30 Ml Oral.Susp) 30 ml PO DAILY PRN PRN Reason: Constipation Melatonin (Melatonin 3 Mg Tablet) 6 mg PO BEDTIME PRN PRN Reason: Insomnia Last Admin: 08/21/24 02:09 Dose: 6 mg Documented By: LYSZ Methadone HCl (Methadone Hcl 20 Mg/2 Ml Oral.Conc) 140 mg PO DAILY [facility] Last Admin: 08/24/24 09:10 Dose: 140 mg Documented By: SADE Co-signed By: LESLI Naloxone HCl (Naloxone Hcl 0.4 Mg/Ml Vial) 0.04 mg IVPUSH Q5M PRN PRN Reason: Excessive sedation or RR < 8 Naloxone HCl (Naloxone Hcl 0.4 Mg/Ml Vial) 0.04 mg IVPUSH Q5M PRN PRN Reason: Excessive sedation or RR < 8 Nicotine (Nicotine 14 Mg Patch.Td24) 14 mg TRANSDERMA DAILY [facility] Last Admin: 08/24/24 08:58 Dose: 14 mg Documented By: SADE Ondansetron HCl (Ondansetron Hcl 4 Mg/2 Ml Vial) 4 mg IVPUSH Q8H PRN PRN Reason: Nausea and Vomiting Oxycodone HCl (Oxycodone Hcl Immed Release 5 Mg Tablet) 5 mg PO Q6H PRN PRN Reason: Pain, Severe (Pain Scale 7-10) Last Admin: 08/23/24 20:13 Dose: 5 mg Documented By: FRANCISCA Sodium Chloride (0.9 % Sodium Chloride Flush 3 Ml Syringe) 3 ml IVFLUSH QSHIFT [facility] Last Admin: 08/24/24 08:59 Dose: 3 ml Documented By: SADE Labs 08/23/24 08:50 08/23/24 08:50 Labs: Laboratory Results - last 24 hr 08/23/24 08/23/24 08/23/24 11:23 15:38 20:37 POC Glucose 195 H 184 H 181 H 08/24/24 07:41 POC Glucose 159 H Assessment and Plan (1) Cellulitis: Status: Acute (2) DVT (deep venous thrombosis): Status: Acute Plan Patient is a 54-year-old female with a past medical history significant for peripheral arterial disease, type 2 diabetes on insulin, NSTEMI/CVA in 2021, DVT/bilateral PE on Eliquis, MRSA bacteremia polysubstance IV drug abuse, 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 reduced Lantus to 30 bid and adjustes as needed (usually 40 bid at home) -hold metformin, continue jardiance - SSI - diabetic diet obesity - BMI 31.2 - weight loss encouraged Opioid use disorder -continue Methadone once dose confirmed nicotine dependence - smoking cessation discussed and encouraged - nicotine patch hx DVT/PE - continue eliquis, full code VTE prophy: eliquis inpatient for possible cellulitis and need for wound debridment, awaiting wound vac Pt eval tomorrow Quality Stroke Does the patient have a stroke diagnosis?: No VTE Prior VTE?: Yes VTE Risk Level:: Medical - moderate - high VTE Device Contraindication: Treatment Not Indicated VTE Drug Contraindication: N/A - Med Ordered
[2024-08-24 11:37] LABS: Glucose, Whole Blood 240 mg/dL (60-115)
[2024-08-24] MEDS: oxyCODONE HCl Immed Release 5 MG TABLET PO (16:10)
[2024-08-24] MEDS: Collagenase Clostridium Hist. 30 GM TUBE 1 APPL TOPICAL (16:26)
[2024-08-24 16:42] LABS: Glucose, Whole Blood 179 mg/dL (60-115)
[2024-08-24 20:14] LABS: Glucose, Whole Blood 172 mg/dL (60-115)
[2024-08-25] VITALS (9 sets, daily range): BP systolic 117–134; BP diastolic 63–72; PULSE 79–83; RESP 16–18; TEMP 36.2–36.7; O2SAT 93–98
[2024-08-25] MEDS: Doxycycline Hyclate 100 MG in 0.9 % Sodium Chloride 250 ML 166.67 MG IV ×2 (01:25→13:20)
[2024-08-25] MEDS: HYDROmorphone HCl 0.5 MG/0.5 ML SYRINGE 1 MG IVPUSH ×7 (01:27→22:17)
--- NOTE | 2024-08-25 04:10 | PC.NURSE ---
Patient rang 03:00 hour requesting IV pain medication. Landscape Architecture Professor informed patient that she was not yet due for prn q3h IV dilaudid and was offered prn oxycodone instead, education provided on alternating po and IV pain medications for optimal pain management. Pt declined po oxycodone offer and stated she will wait until due for IV pain medications. Plan of care continues.
[2024-08-25 07:39] LABS: Glucose, Whole Blood 177 mg/dL (60-115)
[2024-08-25] MEDS: 0.9 % Sodium Chloride Flush 3 ML SYRINGE IVFLUSH ×2 (07:47→16:37)
[2024-08-25] MEDS: Nicotine 14 MG PATCH.TD24 TRANSDERMA (08:26)
[2024-08-25] MEDS: Aspirin 81 MG TAB.CHEW PO (08:27)
[2024-08-25] MEDS: DULoxetine HCl 30 MG CAPSULE.DR PO (08:27)
[2024-08-25] MEDS: Losartan Potassium 25 MG TABLET PO (08:27)
[2024-08-25] MEDS: Baclofen 10 MG TABLET PO ×3 (08:27→20:20)
[2024-08-25] MEDS: Apixaban 5 MG TABLET PO ×2 (08:27→20:20)
[2024-08-25] MEDS: Gabapentin 100 MG CAPSULE PO ×3 (08:27→20:20)
[2024-08-25] MEDS: Atorvastatin Calcium 80 MG TABLET PO (08:27)
[2024-08-25] MEDS: Insulin Glargine,Hum.rec.anlog 100 UNIT/ML 10 ML VIAL 30 UNIT SUBCUT ×2 (08:29→20:21)
[2024-08-25] MEDS: Insulin Lispro 100 UNIT/ML 3 ML VIAL SUBCUT ×4 (08:30→20:20)
[2024-08-25] MEDS: methADONE HCl 20 MG/2 ML ORAL.CONC 140 MG PO (08:30)
--- NOTE | 2024-08-25 08:53 | P.PNIM_ITS ---
Subjective Subjective Date of Service: 08/25/24 Interval History: Pain is better controlled now No new issues Physical Exam 2 Vital Signs: Vital Signs: Last Vital Signs Temp 97.7 F 08/25/24 08:00 Pulse 82 08/25/24 08:00 Resp 18 08/25/24 08:00 BP 117/72 08/25/24 08:00 Pulse Ox 98 08/25/24 08:00 O2 Del Method Room Air 08/25/24 08:00 O2 Flow Rate 0 08/22/24 10:37 BMI result Body Mass Index 31.2 Const: Other: General: AO X 3, no acute distress Resp: CTA bilateral CVS: S1,S2,RRR GI: +BS, NT, no distention Skin: wounds debrided and dressing in place Neuro: motor grossly intact Psych: appropriate affect Objective Data Active Medications Acetaminophen (Acetaminophen 325 Mg Tablet) 650 mg PO Q6H PRN PRN Reason: Pain, Mild (Pain Scale 1-3) Alprazolam (Alprazolam 0.5 Mg Tablet) 0.5 mg PO BEDTIME PRN PRN Reason: anxiety/restlessness Last Admin: 08/23/24 21:38 Dose: 0.5 mg Documented By: FRANCISCA Apixaban (Apixaban 5 Mg Tablet) 5 mg PO BID [facility] Last Admin: 08/25/24 08:27 Dose: 5 mg Documented By: SADE Aspirin (Aspirin 81 Mg Tab.Chew) 81 mg PO DAILY [facility] Last Admin: 08/25/24 08:27 Dose: 81 mg Documented By: SADE Atorvastatin Calcium (Atorvastatin Calcium 80 Mg Tablet) 80 mg PO DAILY [facility] Last Admin: 08/25/24 08:27 Dose: 80 mg Documented By: SADE Baclofen (Baclofen 10 Mg Tablet) 10 mg PO TID [facility] Last Admin: 08/25/24 08:27 Dose: 10 mg Documented By: SADE Calcium Carbonate (Calcium Carbonate 750 Mg Tab.Chew) 750 mg PO Q4H PRN PRN Reason: Heartburn Collagenase (Collagenase Clostridium Hist. 30 Gm Tube) 1 appl TOPICAL DAILY [facility]; Protocol Last Admin: 08/24/24 16:26 Dose: 1 appl Documented By: SADE Duloxetine HCl (Duloxetine Hcl 30 Mg Capsule.Dr) 30 mg PO DAILY [facility] Last Admin: 08/25/24 08:27 Dose: 30 mg Documented By: SADE Empagliflozin (Empagliflozin 25 Mg Tablet) 25 mg PO DAILY [facility] Last Admin: 08/21/24 09:40 Dose: 25 mg Documented By: SADE Gabapentin (Gabapentin 100 Mg Capsule) 100 mg PO TID [facility] Last Admin: 08/25/24 08:27 Dose: 100 mg Documented By: SADE Glucose (Glucose Gel 15 Gm Gel..Gram.) 15 gm PO Q15M PRN; Protocol PRN Reason: per Hypoglycemia Standing Ord. Hydromorphone HCl (Hydromorphone Hcl 0.5 Mg/0.5 Ml Syringe) 1 mg IVPUSH Q3H PRN; Protocol PRN Reason: Pain, Severe (Pain Scale 7-10) Last Admin: 08/25/24 07:46 Dose: 1 mg Documented By: SADE Dextrose (D10) 250 mls @ 750 mls/hr IV Q15M PRN; Protocol PRN Reason: per Hypoglycemia Standing Ord. Doxycycline Hyclate 100 mg/ (Sodium Chloride) 250 mls @ 166.67 mls/hr IV Q12H [facility] Last Infusion: 08/25/24 02:55 Dose: Infused Documented By: ROSIO Insulin Glargine (Insulin Glargine,Hum.Rec.Anlog 100 Unit/Ml 10 Ml Vial) 30 unit SUBCUT BID [facility] Last Admin: 08/25/24 08:29 Dose: 30 unit Documented By: SADE Insulin Human Lispro (Insulin Lispro 100 Unit/Ml 3 Ml Vial) 0 unit SUBCUT QIDACHS [facility]; Protocol Last Admin: 08/25/24 08:30 Dose: 2 unit Documented By: SADE Losartan Potassium (Losartan Potassium 25 Mg Tablet) 25 mg PO DAILY [facility]; Protocol Last Admin: 08/25/24 08:27 Dose: 25 mg Documented By: SADE Magnesium Hydroxide (Milk Of Magnesia 30 Ml Oral.Susp) 30 ml PO DAILY PRN PRN Reason: Constipation Melatonin (Melatonin 3 Mg Tablet) 6 mg PO BEDTIME PRN PRN Reason: Insomnia Last Admin: 08/21/24 02:09 Dose: 6 mg Documented By: LYSZ Methadone HCl (Methadone Hcl 20 Mg/2 Ml Oral.Conc) 140 mg PO DAILY [facility] Last Admin: 08/25/24 08:30 Dose: 140 mg Documented By: SADE Co-signed By: MAYELA Naloxone HCl (Naloxone Hcl 0.4 Mg/Ml Vial) 0.04 mg IVPUSH Q5M PRN PRN Reason: Excessive sedation or RR < 8 Naloxone HCl (Naloxone Hcl 0.4 Mg/Ml Vial) 0.04 mg IVPUSH Q5M PRN PRN Reason: Excessive sedation or RR < 8 Nicotine (Nicotine 14 Mg Patch.Td24) 14 mg TRANSDERMA DAILY [facility] Last Admin: 08/25/24 08:26 Dose: 14 mg Documented By: SADE Ondansetron HCl (Ondansetron Hcl 4 Mg/2 Ml Vial) 4 mg IVPUSH Q8H PRN PRN Reason: Nausea and Vomiting Oxycodone HCl (Oxycodone Hcl Immed Release 5 Mg Tablet) 5 mg PO Q6H PRN PRN Reason: Pain, Severe (Pain Scale 7-10) Last Admin: 08/24/24 16:10 Dose: 5 mg Documented By: SADE Sodium Chloride (0.9 % Sodium Chloride Flush 3 Ml Syringe) 3 ml IVFLUSH [facility] Last Admin: 08/25/24 07:47 Dose: 3 ml Documented By: SADE Labs 08/23/24 08:50 08/23/24 08:50 Labs: Laboratory Results - last 24 hr 08/24/24 08/24/24 08/24/24 11:33 16:28 19:32 POC Glucose 240 H 179 H 172 H 08/25/24 07:35 POC Glucose 177 H Assessment and Plan (1) Cellulitis: Status: Acute (2) DVT (deep venous thrombosis): Status: Acute Plan Patient is a 54-year-old female with a past medical history significant for peripheral arterial disease, type 2 diabetes on insulin, NSTEMI/CVA in 2021, DVT/bilateral PE on Eliquis, MRSA bacteremia polysubstance IV drug abuse, 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 reduced Lantus to 30 bid and adjustes as needed (usually 40 bid at home) -hold metformin, continue jardiance - SSI - diabetic diet obesity - BMI 31.2 - weight loss encouraged Opioid use disorder -continue Methadone nicotine dependence - smoking cessation discussed and encouraged - nicotine patch hx DVT/PE - continue eliquis, full code VTE prophy: eliquis inpatient for possible cellulitis and need for wound debridment, awaiting wound vac Pt eval tomorrow Quality Stroke Does the patient have a stroke diagnosis?: No VTE Prior VTE?: Yes VTE Risk Level:: Medical - moderate - high VTE Device Contraindication: Treatment Not Indicated VTE Drug Contraindication: N/A - Med Ordered
[2024-08-25 11:14] LABS: Glucose, Whole Blood 197 mg/dL (60-115)
[2024-08-25 16:08] LABS: Glucose, Whole Blood 153 mg/dL (60-115)
[2024-08-25] MEDS: Collagenase Clostridium Hist. 30 GM TUBE 1 APPL TOPICAL (18:14)
[2024-08-25 20:05] LABS: Glucose, Whole Blood 225 mg/dL (60-115)
[2024-08-25] MEDS: ALPRAZolam 0.5 MG TABLET PO (20:20)
[2024-08-26] VITALS (10 sets, daily range): BP systolic 104–135; BP diastolic 52–72; PULSE 63–86; RESP 16–20; TEMP 36.1–36.7; O2SAT 83–96
[2024-08-26] MEDS: 0.9 % Sodium Chloride Flush 3 ML SYRINGE IVFLUSH ×4 (00:59→21:02)
[2024-08-26] MEDS: HYDROmorphone HCl 0.5 MG/0.5 ML SYRINGE 1 MG IVPUSH ×5 (02:39→21:01)
[2024-08-26] MEDS: Doxycycline Hyclate 100 MG in 0.9 % Sodium Chloride 250 ML 166.67 MG IV (02:43)
--- NOTE | 2024-08-26 03:19 | PC.NURSE ---
IV Doxycycline administered late due to patient losing IV access. Multiple nurses and nursing supervisor pumping attempted. New IV access obtained, #22 left wrist, antibiotic currently infusing.
[2024-08-26 07:48] LABS: Glucose, Whole Blood 177 mg/dL (60-115)
[2024-08-26] MEDS: Insulin Lispro 100 UNIT/ML 3 ML VIAL SUBCUT ×4 (08:02→21:01)
[2024-08-26] MEDS: Insulin Glargine,Hum.rec.anlog 100 UNIT/ML 10 ML VIAL 30 UNIT SUBCUT ×2 (08:03→21:01)
[2024-08-26] MEDS: Baclofen 10 MG TABLET PO ×3 (08:03→21:01)
[2024-08-26] MEDS: Gabapentin 100 MG CAPSULE PO ×3 (08:04→21:01)
[2024-08-26] MEDS: Atorvastatin Calcium 80 MG TABLET PO (08:04)
[2024-08-26] MEDS: Aspirin 81 MG TAB.CHEW PO (08:04)
[2024-08-26] MEDS: Losartan Potassium 25 MG TABLET PO (08:04)
[2024-08-26] MEDS: DULoxetine HCl 30 MG CAPSULE.DR PO (08:04)
[2024-08-26] MEDS: Apixaban 5 MG TABLET PO ×2 (08:04→21:01)
[2024-08-26] MEDS: Nicotine 14 MG PATCH.TD24 TRANSDERMA (08:06)
[2024-08-26] MEDS: methADONE HCl 20 MG/2 ML ORAL.CONC 140 MG PO (08:09)
[2024-08-26 11:26] LABS: Glucose, Whole Blood 204 mg/dL (60-115)
--- NOTE | 2024-08-26 11:33 | MHC.CLN ---
F/U PO INTAKE 75-100% DIET RX:2000DM-APPROPRIATE PT REFUSES TO DRINK NUTRITION SUPPLEMENT MONITOR PO INTAKE CLOSELY
--- NOTE | 2024-08-26 12:26 | P.PNIM_ITS ---
Subjective Subjective Date of Service: 08/26/24 Interval History: Ongoing pain, controlled but more pain with dressing changes Physical Exam 2 Vital Signs: Vital Signs: Last Vital Signs Temp 96.9 F 08/26/24 11:31 Pulse 76 08/26/24 11:31 Resp 16 08/26/24 12:05 BP 104/52 L 08/26/24 11:31 Pulse Ox 95 08/26/24 11:31 O2 Del Method Room Air 08/26/24 11:31 O2 Flow Rate 0 08/22/24 10:37 BMI result Body Mass Index 31.2 Const: Other: General: AO X 3, no acute distress Resp: CTA bilateral CVS: S1,S2,RRR GI: +BS, NT, no distention Skin: wounds debrided and dressing in place Neuro: motor grossly intact Psych: appropriate affect Objective Data Active Medications Acetaminophen (Acetaminophen 325 Mg Tablet) 650 mg PO Q6H PRN PRN Reason: Pain, Mild (Pain Scale 1-3) Alprazolam (Alprazolam 0.5 Mg Tablet) 0.5 mg PO BEDTIME PRN PRN Reason: anxiety/restlessness Last Admin: 08/25/24 20:20 Dose: 0.5 mg Documented By: FRANCISCA Apixaban (Apixaban 5 Mg Tablet) 5 mg PO BID [facility] Last Admin: 08/26/24 08:04 Dose: 5 mg Documented By: CHICHI Aspirin (Aspirin 81 Mg Tab.Chew) 81 mg PO DAILY [facility] Last Admin: 08/26/24 08:04 Dose: 81 mg Documented By: CHICHI Atorvastatin Calcium (Atorvastatin Calcium 80 Mg Tablet) 80 mg PO DAILY [facility] Last Admin: 08/26/24 08:04 Dose: 80 mg Documented By: CHICHI Baclofen (Baclofen 10 Mg Tablet) 10 mg PO TID [facility] Last Admin: 08/26/24 08:03 Dose: 10 mg Documented By: CHICHI Calcium Carbonate (Calcium Carbonate 750 Mg Tab.Chew) 750 mg PO Q4H PRN PRN Reason: Heartburn Collagenase (Collagenase Clostridium Hist. 30 Gm Tube) 1 appl TOPICAL DAILY [facility]; Protocol Last Admin: 08/26/24 10:32 Dose: Not Given Documented By: CHICHI Non-Admin Reason: Patient Refused Doxycycline Monohydrate (Doxycycline Monohydrate 100 Mg Capsule) 100 mg PO Q12H [facility] Duloxetine HCl (Duloxetine Hcl 30 Mg Capsule.Dr) 30 mg PO DAILY [facility] Last Admin: 08/26/24 08:04 Dose: 30 mg Documented By: CHICHI Empagliflozin (Empagliflozin 25 Mg Tablet) 25 mg PO DAILY [facility] Last Admin: 08/21/24 09:40 Dose: 25 mg Documented By: SADE Gabapentin (Gabapentin 100 Mg Capsule) 100 mg PO TID [facility] Last Admin: 08/26/24 08:04 Dose: 100 mg Documented By: CHICHI Glucose (Glucose Gel 15 Gm Gel..Gram.) 15 gm PO Q15M PRN; Protocol PRN Reason: per Hypoglycemia Standing Ord. Hydromorphone HCl (Hydromorphone Hcl 0.5 Mg/0.5 Ml Syringe) 1 mg IVPUSH Q3H PRN; Protocol PRN Reason: Pain, Severe (Pain Scale 7-10) Last Admin: 08/26/24 12:05 Dose: 1 mg Documented By: CHICHI Dextrose (D10) 250 mls @ 750 mls/hr IV Q15M PRN; Protocol PRN Reason: per Hypoglycemia Standing Ord. Insulin Glargine (Insulin Glargine,Hum.Rec.Anlog 100 Unit/Ml 10 Ml Vial) 30 unit SUBCUT BID [facility] Last Admin: 08/26/24 08:03 Dose: 30 unit Documented By: CHICHI Insulin Human Lispro (Insulin Lispro 100 Unit/Ml 3 Ml Vial) 0 unit SUBCUT QIDACHS [facility]; Protocol Last Admin: 08/26/24 12:05 Dose: 4 unit Documented By: CHICHI Losartan Potassium (Losartan Potassium 25 Mg Tablet) 25 mg PO DAILY [facility]; Protocol Last Admin: 08/26/24 08:04 Dose: 25 mg Documented By: CHICHI Magnesium Hydroxide (Milk Of Magnesia 30 Ml Oral.Susp) 30 ml PO DAILY PRN PRN Reason: Constipation Melatonin (Melatonin 3 Mg Tablet) 6 mg PO BEDTIME PRN PRN Reason: Insomnia Last Admin: 08/21/24 02:09 Dose: 6 mg Documented By: ADRIANA Methadone HCl (Methadone Hcl 20 Mg/2 Ml Oral.Conc) 140 mg PO DAILY [facility] Last Admin: 08/26/24 08:09 Dose: 140 mg Documented By: CHICHI Co-signed By: TYREE Naloxone HCl (Naloxone Hcl 0.4 Mg/Ml Vial) 0.04 mg IVPUSH Q5M PRN PRN Reason: Excessive sedation or RR < 8 Naloxone HCl (Naloxone Hcl 0.4 Mg/Ml Vial) 0.04 mg IVPUSH Q5M PRN PRN Reason: Excessive sedation or RR < 8 Nicotine (Nicotine 14 Mg Patch.Td24) 14 mg TRANSDERMA DAILY [facility] Last Admin: 08/26/24 08:06 Dose: 14 mg Documented By: CHICHI Ondansetron HCl (Ondansetron Hcl 4 Mg/2 Ml Vial) 4 mg IVPUSH Q8H PRN PRN Reason: Nausea and Vomiting Oxycodone HCl (Oxycodone Hcl Immed Release 5 Mg Tablet) 5 mg PO Q6H PRN PRN Reason: Pain, Severe (Pain Scale 7-10) Last Admin: 08/24/24 16:10 Dose: 5 mg Documented By: SADE Sodium Chloride (0.9 % Sodium Chloride Flush 3 Ml Syringe) 3 ml IVFLUSH QSHIFT [facility] Last Admin: 08/26/24 08:08 Dose: 3 ml Documented By: CHICHI Labs 08/23/24 08:50 08/23/24 08:50 Labs: Laboratory Results - last 24 hr 08/25/24 08/25/24 08/26/24 16:02 19:59 07:26 POC Glucose 153 H 225 H 177 H 08/26/24 11:21 POC Glucose 204 H Assessment and Plan (1) Cellulitis: Status: Acute (2) DVT (deep venous thrombosis): Status: Acute Plan Patient is a 54-year-old female with a past medical history significant for peripheral arterial disease, type 2 diabetes on insulin, NSTEMI/CVA in 2021, DVT/bilateral PE on Eliquis, MRSA bacteremia polysubstance IV drug abuse, 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 reduced Lantus to 30 bid and adjustes as needed (usually 40 bid at home) -hold metformin, continue jardiance - SSI - diabetic diet obesity - BMI 31.2 - weight loss encouraged Opioid use disorder -continue Methadone nicotine dependence - smoking cessation discussed and encouraged - nicotine patch hx DVT/PE - continue eliquis, full code VTE prophy: eliquis inpatient for possible cellulitis and need for wound debridment, awaiting wound vac Pt eval tomorrow Quality Stroke Does the patient have a stroke diagnosis?: No VTE Prior VTE?: Yes VTE Risk Level:: Medical - moderate - high VTE Device Contraindication: Treatment Not Indicated VTE Drug Contraindication: N/A - Med Ordered
[2024-08-26] MEDS: oxyCODONE HCl Immed Release 5 MG TABLET PO (13:56)
[2024-08-26] MEDS: Doxycycline Monohydrate 100 MG CAPSULE PO (13:56)
--- NOTE | 2024-08-26 16:03 | MHC.CM.PN ---
per donald pt not ready for dc dc plan remains home
[2024-08-26 16:13] LABS: Glucose, Whole Blood 168 mg/dL (60-115)
[2024-08-26 20:02] LABS: Glucose, Whole Blood 174 mg/dL (60-115)
[2024-08-26] MEDS: ALPRAZolam 0.5 MG TABLET PO (21:01)
[2024-08-27] VITALS (10 sets, daily range): BP systolic 117–132; BP diastolic 56–63; PULSE 77–86; RESP 18–20; TEMP 36–36.3; O2SAT 93–97
[2024-08-27] MEDS: HYDROmorphone HCl 0.5 MG/0.5 ML SYRINGE 1 MG IVPUSH ×6 (01:15→21:40)
[2024-08-27] MEDS: Doxycycline Monohydrate 100 MG CAPSULE PO ×2 (01:15→14:57)
[2024-08-27 07:36] LABS: Glucose, Whole Blood 173 mg/dL (60-115)
[2024-08-27] MEDS: Insulin Glargine,Hum.rec.anlog 100 UNIT/ML 10 ML VIAL 30 UNIT SUBCUT ×2 (08:03→21:39)
[2024-08-27] MEDS: Insulin Lispro 100 UNIT/ML 3 ML VIAL SUBCUT ×4 (08:03→21:39)
[2024-08-27] MEDS: DULoxetine HCl 30 MG CAPSULE.DR PO (08:09)
[2024-08-27] MEDS: Apixaban 5 MG TABLET PO ×2 (08:09→21:40)
[2024-08-27] MEDS: Baclofen 10 MG TABLET PO ×3 (08:10→21:40)
[2024-08-27] MEDS: Aspirin 81 MG TAB.CHEW PO (08:10)
[2024-08-27] MEDS: Gabapentin 100 MG CAPSULE PO ×3 (08:10→21:40)
[2024-08-27] MEDS: Atorvastatin Calcium 80 MG TABLET PO (08:10)
[2024-08-27] MEDS: 0.9 % Sodium Chloride Flush 3 ML SYRINGE IVFLUSH ×3 (08:18→21:41)
--- NOTE | 2024-08-27 09:05 | P.PNIM_ITS ---
Subjective Subjective Date of Service: 08/27/24 Interval History: No new issue, still with signficant pain, especially with dressing changes Physical Exam 2 Vital Signs: Vital Signs: Last Vital Signs Temp 96.8 F 08/27/24 07:15 Pulse 82 08/27/24 07:15 Resp 18 08/27/24 08:10 BP 121/58 L 08/27/24 07:15 Pulse Ox 93 08/27/24 03:58 O2 Del Method Room Air 08/27/24 03:58 O2 Flow Rate 0 08/22/24 10:37 BMI result Body Mass Index 31.2 Const: Other: General: AO X 3, no acute distress Resp: CTA bilateral CVS: S1,S2,RRR GI: +BS, NT, no distention Skin: wounds debrided and dressing in place Neuro: motor grossly intact Psych: appropriate affect Objective Data Active Medications Acetaminophen (Acetaminophen 325 Mg Tablet) 650 mg PO Q6H PRN PRN Reason: Pain, Mild (Pain Scale 1-3) Alprazolam (Alprazolam 0.5 Mg Tablet) 0.5 mg PO BEDTIME PRN PRN Reason: anxiety/restlessness Last Admin: 08/26/24 21:01 Dose: 0.5 mg Documented By: NIKI Apixaban (Apixaban 5 Mg Tablet) 5 mg PO BID [facility] Last Admin: 08/27/24 08:09 Dose: 5 mg Documented By: CHICHI Aspirin (Aspirin 81 Mg Tab.Chew) 81 mg PO DAILY [facility] [place] Last Admin: 08/27/24 08:10 Dose: 81 mg Documented By: CHICHI Atorvastatin Calcium (Atorvastatin Calcium 80 Mg Tablet) 80 mg PO DAILY [facility] [place] Last Admin: 08/27/24 08:10 Dose: 80 mg Documented By: CHICHI Baclofen (Baclofen 10 Mg Tablet) 10 mg PO TID [facility] [place] Last Admin: 08/27/24 08:10 Dose: 10 mg Documented By: CHICHI Calcium Carbonate (Calcium Carbonate 750 Mg Tab.Chew) 750 mg PO Q4H PRN PRN Reason: Heartburn Collagenase (Collagenase Clostridium Hist. 30 Gm Tube) 1 appl TOPICAL DAILY [facility] [place]; Protocol Last Admin: 08/26/24 10:32 Dose: Not Given Documented By: CHICHI Non-Admin Reason: Patient Refused Doxycycline Monohydrate (Doxycycline Monohydrate 100 Mg Capsule) 100 mg PO Q12H [facility] [place] Last Admin: 08/27/24 01:15 Dose: 100 mg Documented By: CASTILM Duloxetine HCl (Duloxetine Hcl 30 Mg Capsule.) 30 mg PO DAILY [facility] [place] Last Admin: 08/27/24 08:09 Dose: 30 mg Documented By: CHICHI Empagliflozin (Empagliflozin 25 Mg Tablet) 25 mg PO DAILY [facility] [place] Last Admin: 08/21/24 09:40 Dose: 25 mg Documented By: GRAZIC Gabapentin (Gabapentin 100 Mg Capsule) 100 mg PO TID [facility] [place] Last Admin: 08/27/24 08:10 Dose: 100 mg Documented By: CHICHI Glucose (Glucose Gel 15 Gm Gel..Gram.) 15 gm PO Q15M PRN; Protocol PRN Reason: per Hypoglycemia Standing Ord. Hydromorphone HCl (Hydromorphone Hcl 0.5 Mg/0.5 Ml Syringe) 1 mg IVPUSH Q3H PRN; Protocol PRN Reason: Pain, Severe (Pain Scale 7-10) Last Admin: 08/27/24 08:10 Dose: 1 mg Documented By: CHICHI Dextrose (D10) 250 mls @ 750 mls/hr IV Q15M PRN; Protocol PRN Reason: per Hypoglycemia Standing Ord. Insulin Glargine (Insulin Glargine,Hum.Rec.Anlog 100 Unit/Ml 10 Ml Vial) 30 unit SUBCUT BID [facility] [place] Last Admin: 08/27/24 08:03 Dose: 30 unit Documented By: CHICHI Insulin Human Lispro (Insulin Lispro 100 Unit/Ml 3 Ml Vial) 0 unit SUBCUT QIDACHS [facility] [place]; Protocol Last Admin: 08/27/24 08:03 Dose: 2 unit Documented By: CHICHI Losartan Potassium (Losartan Potassium 25 Mg Tablet) 25 mg PO DAILY [facility] [place]; Protocol Last Admin: 08/26/24 08:04 Dose: 25 mg Documented By: CHICHI Magnesium Hydroxide (Milk Of Magnesia 30 Ml Oral.Susp) 30 ml PO DAILY PRN PRN Reason: Constipation Melatonin (Melatonin 3 Mg Tablet) 6 mg PO BEDTIME PRN PRN Reason: Insomnia Last Admin: 08/21/24 02:09 Dose: 6 mg Documented By: LYSZ Methadone HCl (Methadone Hcl 20 Mg/2 Ml Oral.Conc) 140 mg PO DAILY [facility] [place] Last Admin: 08/26/24 08:09 Dose: 140 mg Documented By: CHICHI Co-signed By: TYREE Naloxone HCl (Naloxone Hcl 0.4 Mg/Ml Vial) 0.04 mg IVPUSH Q5M PRN PRN Reason: Excessive sedation or RR < 8 Naloxone HCl (Naloxone Hcl 0.4 Mg/Ml Vial) 0.04 mg IVPUSH Q5M PRN PRN Reason: Excessive sedation or RR < 8 Nicotine (Nicotine 14 Mg Patch.Td24) 14 mg TRANSDERMA DAILY [facility] [place] Last Admin: 08/26/24 08:06 Dose: 14 mg Documented By: CHICHI Ondansetron HCl (Ondansetron Hcl 4 Mg/2 Ml Vial) 4 mg IVPUSH Q8H PRN PRN Reason: Nausea and Vomiting Oxycodone HCl (Oxycodone Hcl Immed Release 5 Mg Tablet) 5 mg PO Q6H PRN PRN Reason: Pain, Severe (Pain Scale 7-10) Last Admin: 08/26/24 13:56 Dose: 5 mg Documented By: VIRGILIO Sodium Chloride (0.9 % Sodium Chloride Flush 3 Ml Syringe) 3 ml IVFLUSH QSHIFT [facility] [place] Last Admin: 08/27/24 08:18 Dose: 3 ml Documented By: CHICHI Labs 08/23/24 08:50 08/23/24 08:50 Labs: Laboratory Results - last 24 hr 08/26/24 08/26/24 08/26/24 11:21 16:00 19:57 POC Glucose 204 H 168 H 174 H 08/27/24 07:23 POC Glucose 173 H Assessment and Plan (1) Cellulitis: Status: Acute (2) DVT (deep venous thrombosis): Status: Acute Plan 54-year-old female with a past medical history significant for peripheral arterial disease, type 2 diabetes on insulin, NSTEMI/CVA in 2021, DVT/bilateral PE on Eliquis, MRSA bacteremia polysubstance IV drug abuse, 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, stenting and plasty done, added ASA -vascular and surgery recommend wound-vac reaching out to wound nurse and surgery to have this arrange DM, continue Lantus 35 bid and adjust as needed (usually 40 bid at home) -hold metformin, continue jardiance - SSI - diabetic diet obesity - BMI 31.2 - weight loss encouraged Opioid use disorder -continue Methadone nicotine dependence - smoking cessation discussed and encouraged - nicotine patch hx DVT/PE - continue raine, full code VTE prophy: eliburtonis inpatient for possible cellulitis and need for wound debridment, awaiting wound vac Quality Stroke Does the patient have a stroke diagnosis?: No VTE Prior VTE?: Yes VTE Risk Level:: Medical - moderate - high VTE Device Contraindication: Treatment Not Indicated VTE Drug Contraindication: N/A - Med Ordered
[2024-08-27] MEDS: methADONE HCl 20 MG/2 ML ORAL.CONC 140 MG PO (09:22)
[2024-08-27] MEDS: Nicotine 14 MG PATCH.TD24 TRANSDERMA (09:22)
[2024-08-27] MEDS: Losartan Potassium 25 MG TABLET PO (09:22)
[2024-08-27] MEDS: oxyCODONE HCl Immed Release 5 MG TABLET PO ×2 (10:56→16:37)
[2024-08-27 11:20] LABS: Glucose, Whole Blood 209 mg/dL (60-115)
[2024-08-27 16:13] LABS: Glucose, Whole Blood 257 mg/dL (60-115)
--- NOTE | 2024-08-27 17:10 | HO.WOUND ---
Wound Consult: Follow up 54yr old?female admitted [place] [facility] [place] 08[place]17[place]24 - See progress notes and H&P for detailed history.? Request by Dr. Muhammad to obtain NPWT (wound Vac) supplies to bedside. Wound vac obtained and form completed and turned into [employer]. Two Medium wound vac sponge kits at bedside along with canister for vac at bedside. Per Dr. Muhammad he will determine if ready for vac application tomorrow. Will defer to General Surgery team.
[2024-08-27 20:28] LABS: Glucose, Whole Blood 174 mg/dL (60-115)
[2024-08-27] MEDS: ALPRAZolam 0.5 MG TABLET PO (21:40)
[2024-08-28] VITALS (7 sets, daily range): BP systolic 110–123; BP diastolic 56–72; PULSE 75–89; RESP 16–18; TEMP 36–36.6; O2SAT 94–98
[2024-08-28] MEDS: Doxycycline Monohydrate 100 MG CAPSULE PO ×2 (01:20→14:32)
[2024-08-28] MEDS: HYDROmorphone HCl 0.5 MG/0.5 ML SYRINGE 1 MG IVPUSH ×5 (01:20→21:00)
[2024-08-28 07:41] LABS: Glucose, Whole Blood 235 mg/dL (60-115)
[2024-08-28] MEDS: Insulin Lispro 100 UNIT/ML 3 ML VIAL SUBCUT ×4 (08:10→20:59)
[2024-08-28] MEDS: Losartan Potassium 25 MG TABLET PO (08:10)
[2024-08-28] MEDS: Apixaban 5 MG TABLET PO ×2 (08:10→20:46)
[2024-08-28] MEDS: DULoxetine HCl 30 MG CAPSULE.DR PO (08:10)
[2024-08-28] MEDS: Baclofen 10 MG TABLET PO ×3 (08:10→20:47)
[2024-08-28] MEDS: Gabapentin 100 MG CAPSULE PO ×3 (08:10→20:47)
[2024-08-28] MEDS: Aspirin 81 MG TAB.CHEW PO (08:10)
[2024-08-28] MEDS: Atorvastatin Calcium 80 MG TABLET PO (08:10)
[2024-08-28] MEDS: Insulin Glargine,Hum.rec.anlog 100 UNIT/ML 10 ML VIAL 30 UNIT SUBCUT (08:10)
[2024-08-28] MEDS: methADONE HCl 20 MG/2 ML ORAL.CONC 140 MG PO (08:11)
[2024-08-28] MEDS: Nicotine 14 MG PATCH.TD24 TRANSDERMA (08:18)
[2024-08-28] MEDS: 0.9 % Sodium Chloride Flush 3 ML SYRINGE IVFLUSH ×3 (08:19→20:47)
[2024-08-28] MEDS: oxyCODONE HCl Immed Release 5 MG TABLET PO ×3 (09:09→21:53)
[2024-08-28 11:19] LABS: Glucose, Whole Blood 234 mg/dL (60-115)
--- NOTE | 2024-08-28 13:10 | MHC.CLN ---
F/U DIET=DIABETIC 2000 KCALS. UNSTAGEABLE PI TO [facility]. PATIENT DOES NOT WANT SUPPLEMENT. INTAKE APPEARS GOOD, WITH MOST MEALS 100%. FOLLOW FOR PO INTAKE AND SKIN INTEGRITY.
--- NOTE | 2024-08-28 14:05 | P.PNIM_ITS ---
Subjective Subjective Date of Service: 08/28/24 Interval History: follow up Review of Systems pain seems controlled Physical Exam 2 Vital Signs: Vital Signs: Last Vital Signs Temp 97.2 F 08/28/24 11:12 Pulse 75 08/28/24 11:12 Resp 16 08/28/24 11:12 BP 121/72 08/28/24 11:12 Pulse Ox 95 08/28/24 11:12 O2 Del Method Room Air 08/28/24 11:12 O2 Flow Rate 0 08/22/24 10:37 BMI result Body Mass Index 31.2 General: AO X 3, no acute distress Resp: CTA bilateral CVS: S1,S2,RRR GI: +BS, NT, no distention Skin: wounds debrided and dressing in place Neuro: motor grossly intact Psych: appropriate affect Objective Data Active Medications Acetaminophen (Acetaminophen 325 Mg Tablet) 650 mg PO Q6H PRN PRN Reason: Pain, Mild (Pain Scale 1-3) Alprazolam (Alprazolam 0.5 Mg Tablet) 0.5 mg PO BEDTIME PRN PRN Reason: anxiety/restlessness Last Admin: 08/27/24 21:40 Dose: 0.5 mg Documented By: TERESO Apixaban (Apixaban 5 Mg Tablet) 5 mg PO BID [facility] Last Admin: 08/28/24 08:10 Dose: 5 mg Documented By: TYREE Aspirin (Aspirin 81 Mg Tab.Chew) 81 mg PO DAILY [facility] Last Admin: 08/28/24 08:10 Dose: 81 mg Documented By: TYREE Atorvastatin Calcium (Atorvastatin Calcium 80 Mg Tablet) 80 mg PO DAILY [facility] Last Admin: 08/28/24 08:10 Dose: 80 mg Documented By: TYREE Baclofen (Baclofen 10 Mg Tablet) 10 mg PO TID [facility] Last Admin: 08/28/24 08:10 Dose: 10 mg Documented By: TYREE Calcium Carbonate (Calcium Carbonate 750 Mg Tab.Chew) 750 mg PO Q4H PRN PRN Reason: Heartburn Collagenase (Collagenase Clostridium Hist. 30 Gm Tube) 1 appl TOPICAL DAILY [facility]; Protocol Last Admin: 08/28/24 09:03 Dose: Not Given Documented By: TYREE Non-Admin Reason: Patient Refused Doxycycline Monohydrate (Doxycycline Monohydrate 100 Mg Capsule) 100 mg PO Q12H [facility] Last Admin: 08/28/24 01:20 Dose: 100 mg Documented By: TERESO Duloxetine HCl (Duloxetine Hcl 30 Mg Capsule.Dr) 30 mg PO DAILY [facility] Last Admin: 08/28/24 08:10 Dose: 30 mg Documented By: TYREE Empagliflozin (Empagliflozin 25 Mg Tablet) 25 mg PO DAILY [facility] Last Admin: 08/21/24 09:40 Dose: 25 mg Documented By: SADE Gabapentin (Gabapentin 100 Mg Capsule) 100 mg PO TID [facility] Last Admin: 08/28/24 08:10 Dose: 100 mg Documented By: TYREE Glucose (Glucose Gel 15 Gm Gel..Gram.) 15 gm PO Q15M PRN; Protocol PRN Reason: per Hypoglycemia Standing Ord. Hydromorphone HCl (Hydromorphone Hcl 0.5 Mg/0.5 Ml Syringe) 1 mg IVPUSH Q3H PRN; Protocol PRN Reason: Pain, Severe (Pain Scale 7-10) Last Admin: 08/28/24 12:07 Dose: 1 mg Documented By: TYREE Dextrose (D10) 250 mls @ 750 mls/hr IV Q15M PRN; Protocol PRN Reason: per Hypoglycemia Standing Ord. Insulin Glargine (Insulin Glargine,Hum.Rec.Anlog 100 Unit/Ml 10 Ml Vial) 30 unit SUBCUT BID [facility] Last Admin: 08/28/24 08:10 Dose: 30 unit Documented By: TYREE Insulin Human Lispro (Insulin Lispro 100 Unit/Ml 3 Ml Vial) 0 unit SUBCUT QIDACHS [facility]; Protocol Last Admin: 08/28/24 12:07 Dose: 4 unit Documented By: TYREE Losartan Potassium (Losartan Potassium 25 Mg Tablet) 25 mg PO DAILY [facility]; Protocol Last Admin: 08/28/24 08:10 Dose: 25 mg Documented By: TYREE Magnesium Hydroxide (Milk Of Magnesia 30 Ml Oral.Susp) 30 ml PO DAILY PRN PRN Reason: Constipation Melatonin (Melatonin 3 Mg Tablet) 6 mg PO BEDTIME PRN PRN Reason: Insomnia Last Admin: 08/21/24 02:09 Dose: 6 mg Documented By: LYSDaniel Methadone HCl (Methadone Hcl 20 Mg/2 Ml Oral.Conc) 140 mg PO DAILY [facility] Last Admin: 08/28/24 08:11 Dose: 140 mg Documented By: TYREE Co-signed By: VIRGILIO Naloxone HCl (Naloxone Hcl 0.4 Mg/Ml Vial) 0.04 mg IVPUSH Q5M PRN PRN Reason: Excessive sedation or RR < 8 Naloxone HCl (Naloxone Hcl 0.4 Mg/Ml Vial) 0.04 mg IVPUSH Q5M PRN PRN Reason: Excessive sedation or RR < 8 Nicotine (Nicotine 14 Mg Patch.Td24) 14 mg TRANSDERMA DAILY [facility] Last Admin: 08/28/24 08:18 Dose: 14 mg Documented By: TYREE Ondansetron HCl (Ondansetron Hcl 4 Mg/2 Ml Vial) 4 mg IVPUSH Q8H PRN PRN Reason: Nausea and Vomiting Oxycodone HCl (Oxycodone Hcl Immed Release 5 Mg Tablet) 5 mg PO Q4H PRN PRN Reason: Pain, Moderate(Pain Scale 4-6) Last Admin: 08/28/24 09:09 Dose: 5 mg Documented By: TYREE Sodium Chloride (0.9 % Sodium Chloride Flush 3 Ml Syringe) 3 ml IVFLUSH QSHIFT [facility] Last Admin: 08/28/24 08:19 Dose: 3 ml Documented By: TYREE Labs 08/23/24 08:50 08/23/24 08:50 Labs: Laboratory Results - last 24 hr 08/27/24 08/27/24 08/28/24 16:09 20:22 07:18 POC Glucose 257 H 174 H 235 H 08/28/24 11:14 POC Glucose 234 H Assessment and Plan (1) Intractable pain: Status: Acute Plan 54-year-old female with a past medical history significant for peripheral arterial disease, type 2 diabetes on insulin, NSTEMI/CVA in 2021, DVT/bilateral PE on Eliquis, MRSA bacteremia polysubstance IV drug abuse, 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 intractable pain secondary to PAD vs neuropathy vs cellulitis, doesn't appear infected and blood cultures negative received vanco and zosyn intilaly which was stopped 08/20. on doxycycline. 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 hold metformin, continue jardiance obesity- BMI 31.2 encouraged for weight loss . Opioid use disorder:on Methadone nicotine dependence- smoking cessation discussed and encouraged nicotine patch hx DVT/PE: on eliquis. full code VTE prophy: eliquis inpatient for possible cellulitis and need for wound debridment, awaiting wound vac Quality Stroke Does the patient have a stroke diagnosis?: No VTE Prior VTE?: Yes VTE Risk Level:: Medical - moderate - high VTE Device Contraindication: Treatment Not Indicated VTE Drug Contraindication: N/A - Med Ordered
[2024-08-28 15:41] LABS: Glucose, Whole Blood 223 mg/dL (60-115)
[2024-08-28] MEDS: HYDROmorphone HCl 1 MG/ML SYRINGE IVPUSH (18:06)
--- NOTE | 2024-08-28 19:26 | PC.NURSE ---
Left lower leg dressing changed per order. Soaked dressings in saline and patient insisted on removing herself. Large amt foul smelling, green drainage. Saline soaked gauze, large ABD and kerlex wrap applied. Pt didn't tolerate dressing change well, even with extra dose of IV dilaudid. Refusing further dressing changes at this time.
[2024-08-28 20:59] LABS: Glucose, Whole Blood 228 mg/dL (60-115)
[2024-08-28] MEDS: Insulin Glargine,Hum.rec.anlog 100 UNIT/ML 10 ML VIAL 35 UNIT SUBCUT (20:59)
[2024-08-29] MEDS: HYDROmorphone HCl 0.5 MG/0.5 ML SYRINGE 1 MG IVPUSH ×8 (00:04→21:01)
[2024-08-29] MEDS: Doxycycline Monohydrate 100 MG CAPSULE PO ×2 (01:38→14:48)
--- NOTE | 2024-08-29 04:10 | PC.NURSE ---
Pt medicated with dilaudid 1mg IV at 0300 but IV was wrapped and IV was leaking.Not sure how much pt actually got.Pt asking for another dose since IV leaking.Notified said to wait 1 hour then give another dose.Pt medicated at 0400 with 1mg IV dilaudid.IV was restarted in the right forearm #20 angio flushing well.
[2024-08-29 07:29] LABS: Glucose, Whole Blood 242 mg/dL (60-115)
[2024-08-29] MEDS: Insulin Lispro 100 UNIT/ML 3 ML VIAL SUBCUT ×4 (07:58→20:00)
[2024-08-29] MEDS: DULoxetine HCl 30 MG CAPSULE.DR PO (07:58)
[2024-08-29] MEDS: Insulin Glargine,Hum.rec.anlog 100 UNIT/ML 10 ML VIAL 35 UNIT SUBCUT ×2 (07:58→19:59)
[2024-08-29] MEDS: Losartan Potassium 25 MG TABLET PO (07:59)
[2024-08-29] MEDS: 0.9 % Sodium Chloride Flush 3 ML SYRINGE IVFLUSH ×3 (07:59→20:00)
[2024-08-29] MEDS: Nicotine 14 MG PATCH.TD24 TRANSDERMA (07:59)
[2024-08-29] MEDS: Aspirin 81 MG TAB.CHEW PO (07:59)
[2024-08-29] MEDS: Apixaban 5 MG TABLET PO ×2 (07:59→20:00)
[2024-08-29] MEDS: Gabapentin 100 MG CAPSULE PO ×3 (07:59→20:00)
[2024-08-29] MEDS: Baclofen 10 MG TABLET PO ×3 (07:59→20:00)
[2024-08-29] MEDS: Atorvastatin Calcium 80 MG TABLET PO (07:59)
[2024-08-29 08:00] VITALS: BP 130/70; PULSE 84; RESP 18; TEMP 36.6; O2SAT 96
[2024-08-29] MEDS: methADONE HCl 20 MG/2 ML ORAL.CONC 140 MG PO (09:31)
[2024-08-29 11:29] LABS: Glucose, Whole Blood 243 mg/dL (60-115)
[2024-08-29 12:00] VITALS: BP 109/57; PULSE 76; RESP 18; TEMP 36.8; O2SAT 97
--- NOTE | 2024-08-29 12:25 | P.PNGS_ITS ---
Subjective Subjective Date of Service: 08/29/24 Interval history: She describes same pain on the left foot and calf No new complaints Physical Exam 2 Vital Signs: Vital Signs: Last Vital Signs Temp 98.2 F 08/29/24 12:00 Pulse 76 08/29/24 12:00 Resp 18 08/29/24 12:00 BP 109/57 L 08/29/24 12:00 Pulse Ox 97 08/29/24 12:00 O2 Del Method Room Air 08/29/24 12:00 O2 Flow Rate 0 08/22/24 10:37 BMI result Body Mass Index 31.2 Const: General: no acute distress Resp: Effort & Inspection: normal respiratory effort Cardio: Rate: regular rate Extrem: Other: Left lower leg dressings in place, appears clean, she states that this was just changed last night Discoloration of the 5th toe on the left, dry Objective Data Active Medications Acetaminophen (Acetaminophen 325 Mg Tablet) 650 mg PO Q6H PRN PRN Reason: Pain, Mild (Pain Scale 1-3) Apixaban (Apixaban 5 Mg Tablet) 5 mg PO BID [facility] Last Admin: 08/29/24 07:59 Dose: 5 mg Documented By: MAYELA Aspirin (Aspirin 81 Mg Tab.Chew) 81 mg PO DAILY [facility] Last Admin: 08/29/24 07:59 Dose: 81 mg Documented By: MAYELA Atorvastatin Calcium (Atorvastatin Calcium 80 Mg Tablet) 80 mg PO DAILY [facility] Last Admin: 08/29/24 07:59 Dose: 80 mg Documented By: MAYELA Baclofen (Baclofen 10 Mg Tablet) 10 mg PO TID [facility] Last Admin: 08/29/24 07:59 Dose: 10 mg Documented By: MAYELA Calcium Carbonate (Calcium Carbonate 750 Mg Tab.Chew) 750 mg PO Q4H PRN PRN Reason: Heartburn Collagenase (Collagenase Clostridium Hist. 30 Gm Tube) 1 appl TOPICAL DAILY [facility]; Protocol Last Admin: 08/28/24 09:03 Dose: Not Given Documented By: TYREE Non-Admin Reason: Patient Refused Doxycycline Monohydrate (Doxycycline Monohydrate 100 Mg Capsule) 100 mg PO Q12H [facility] Last Admin: 08/29/24 01:38 Dose: 100 mg Documented By: DANIELLE Duloxetine HCl (Duloxetine Hcl 30 Mg Capsule.) 30 mg PO DAILY [facility] Last Admin: 08/29/24 07:58 Dose: 30 mg Documented By: MAYELA Empagliflozin (Empagliflozin 25 Mg Tablet) 25 mg PO DAILY [facility] Last Admin: 08/21/24 09:40 Dose: 25 mg Documented By: SADE Gabapentin (Gabapentin 100 Mg Capsule) 100 mg PO TID [facility] Last Admin: 08/29/24 07:59 Dose: 100 mg Documented By: MAYELA Glucose (Glucose Gel 15 Gm Gel..Gram.) 15 gm PO Q15M PRN; Protocol PRN Reason: per Hypoglycemia Standing Ord. Hydromorphone HCl (Hydromorphone Hcl 0.5 Mg/0.5 Ml Syringe) 1 mg IVPUSH Q3H PRN; Protocol PRN Reason: Pain, Severe (Pain Scale 7-10) Last Admin: 08/29/24 11:50 Dose: 1 mg Documented By: MAYELA Dextrose (D10) 250 mls @ 750 mls/hr IV Q15M PRN; Protocol PRN Reason: per Hypoglycemia Standing Ord. Insulin Glargine (Insulin Glargine,Hum.Rec.Anlog 100 Unit/Ml 10 Ml Vial) 35 unit SUBCUT BID [facility] Last Admin: 08/29/24 07:58 Dose: 35 unit Documented By: MAYELA Insulin Human Lispro (Insulin Lispro 100 Unit/Ml 3 Ml Vial) 0 unit SUBCUT QIDACHS [facility]; Protocol Last Admin: 08/29/24 11:49 Dose: 4 unit Documented By: MAYELA Losartan Potassium (Losartan Potassium 25 Mg Tablet) 25 mg PO DAILY [facility]; Protocol Last Admin: 08/29/24 07:59 Dose: 25 mg Documented By: MAYELA Magnesium Hydroxide (Milk Of Magnesia 30 Ml Oral.Susp) 30 ml PO DAILY PRN PRN Reason: Constipation Melatonin (Melatonin 3 Mg Tablet) 6 mg PO BEDTIME PRN PRN Reason: Insomnia Last Admin: 08/21/24 02:09 Dose: 6 mg Documented By: ADRIANA Methadone HCl (Methadone Hcl 20 Mg/2 Ml Oral.Conc) 140 mg PO DAILY [facility] Last Admin: 08/29/24 09:31 Dose: 140 mg Documented By: MAYELA Co-signed By: CARLO Naloxone HCl (Naloxone Hcl 0.4 Mg/Ml Vial) 0.04 mg IVPUSH Q5M PRN PRN Reason: Excessive sedation or RR < 8 Naloxone HCl (Naloxone Hcl 0.4 Mg/Ml Vial) 0.04 mg IVPUSH Q5M PRN PRN Reason: Excessive sedation or RR < 8 Nicotine (Nicotine 14 Mg Patch.Td24) 14 mg TRANSDERMA DAILY [facility] Last Admin: 08/29/24 07:59 Dose: 14 mg Documented By: MAYELA Ondansetron HCl (Ondansetron Hcl 4 Mg/2 Ml Vial) 4 mg IVPUSH Q8H PRN PRN Reason: Nausea and Vomiting Oxycodone HCl (Oxycodone Hcl Immed Release 5 Mg Tablet) 5 mg PO Q4H PRN PRN Reason: Pain, Moderate(Pain Scale 4-6) Last Admin: 08/28/24 21:53 Dose: 5 mg Documented By: DANIELLE Sodium Chloride (0.9 % Sodium Chloride Flush 3 Ml Syringe) [address] [facility] Last Admin: 08/29/24 07:59 Dose: 3 ml Documented By: MAYELA Labs 08/23/24 08:50 08/23/24 08:50 Labs: Laboratory Results - last 24 hr 08/28/24 08/28/24 08/29/24 15:36 20:52 07:23 POC Glucose 223 H 228 H 242 H 08/29/24 11:26 POC Glucose 243 H Procedures Date of Service Date of Service: 08/29/24 Progress Note: A&P Assessment and plan (1) Open wound of left lower leg: Status: Acute Assessment and Plan: I explained to her that we can switch to wound VAC dressings for less frequent dressing changes I explained the advantages of the wound VAC She says she would like to hold off on this for now She says she will continue with current dressing changes She states that she continues to have pain on the left calf area There was note of discoloration of the 5th toe She did have angioplasty done last week by Dr. Ferrell She may have persistence of ischemia due to her vascular disease Poor healing anticipated Patient does state that she does not want any further amputation for now Time Spent With Patient Time: Total time managing care of this patient today ____ minutes. Quality Stroke Does the patient have a stroke diagnosis?: No VTE Prior VTE?: Yes VTE Risk Level:: Medical - moderate - high VTE Device Contraindication: Treatment Not Indicated VTE Drug Contraindication: N/A - Med Ordered
--- NOTE | 2024-08-29 15:26 | PC.NURSE ---
earlier today Dr. Muhammad at bedside to change LLE gauze dressings to wound vac, pt refused at this time and told Dr. Muhammad he can try tomorrow. Per Jb to continue with current dressing orders for now. Patient refusing to allow this RN to assist with dressing changes and requests she does them herself when ready. MD made aware. Patient instructed to ring call cai when she needs help and supplies for dressing changes and she verbalizes understanding.
[2024-08-29 15:59] VITALS: BP 113/59; PULSE 67; RESP 18; TEMP 36.2; O2SAT 95
[2024-08-29 16:29] LABS: Glucose, Whole Blood 230 mg/dL (60-115)
--- NOTE | 2024-08-29 16:34 | P.PNIM_ITS ---
Subjective Subjective Date of Service: 08/29/24 Interval History: follow up Review of Systems pain seems controlled Physical Exam 2 Vital Signs: Vital Signs: Last Vital Signs Temp 97.1 F 08/29/24 15:59 Pulse 67 08/29/24 15:59 Resp 18 08/29/24 15:59 BP 113/59 L 08/29/24 15:59 Pulse Ox 95 08/29/24 15:59 O2 Del Method Room Air 08/29/24 15:59 O2 Flow Rate 0 08/22/24 10:37 BMI result Body Mass Index 31.2 General: AO X 3, no acute distress Resp: CTA bilateral CVS: S1,S2,RRR GI: +BS, NT, no distention Skin: wounds debrided and dressing in place Neuro: motor grossly intact Psych: appropriate affect Objective Data Active Medications Acetaminophen (Acetaminophen 325 Mg Tablet) 650 mg PO Q6H PRN PRN Reason: Pain, Mild (Pain Scale 1-3) Apixaban (Apixaban 5 Mg Tablet) 5 mg PO BID [facility] Last Admin: 08/29/24 07:59 Dose: 5 mg Documented By: MAYELA Aspirin (Aspirin 81 Mg Tab.Chew) 81 mg PO DAILY [facility] Last Admin: 08/29/24 07:59 Dose: 81 mg Documented By: MAYELA Atorvastatin Calcium (Atorvastatin Calcium 80 Mg Tablet) 80 mg PO DAILY [facility] Last Admin: 08/29/24 07:59 Dose: 80 mg Documented By: MAYELA Baclofen (Baclofen 10 Mg Tablet) 10 mg PO TID [facility] Last Admin: 08/29/24 14:48 Dose: 10 mg Documented By: MAYELA Calcium Carbonate (Calcium Carbonate 750 Mg Tab.Chew) 750 mg PO Q4H PRN PRN Reason: Heartburn Collagenase (Collagenase Clostridium Hist. 30 Gm Tube) 1 appl TOPICAL DAILY [facility]; Protocol Last Admin: 08/29/24 12:53 Dose: Not Given Documented By: MAYELA Non-Admin Reason: Patient Refused Doxycycline Monohydrate (Doxycycline Monohydrate 100 Mg Capsule) 100 mg PO Q12H [facility] Last Admin: 08/29/24 14:48 Dose: 100 mg Documented By: MAYELA Duloxetine HCl (Duloxetine Hcl 30 Mg Capsule.Dr) 30 mg PO DAILY [facility] Last Admin: 08/29/24 07:58 Dose: 30 mg Documented By: MAYELA Empagliflozin (Empagliflozin 25 Mg Tablet) 25 mg PO DAILY [facility] Last Admin: 08/21/24 09:40 Dose: 25 mg Documented By: SADE Gabapentin (Gabapentin 100 Mg Capsule) 100 mg PO TID [facility] Last Admin: 08/29/24 14:48 Dose: 100 mg Documented By: MAYELA Glucose (Glucose Gel 15 Gm Gel..Gram.) 15 gm PO Q15M PRN; Protocol PRN Reason: per Hypoglycemia Standing Ord. Hydromorphone HCl (Hydromorphone Hcl 0.5 Mg/0.5 Ml Syringe) 1 mg IVPUSH Q3H PRN; Protocol PRN Reason: Pain, Severe (Pain Scale 7-10) Last Admin: 08/29/24 14:52 Dose: 1 mg Documented By: MAYELA Dextrose (D10) 250 mls @ 750 mls/hr IV Q15M PRN; Protocol PRN Reason: per Hypoglycemia Standing Ord. Insulin Glargine (Insulin Glargine,Hum.Rec.Anlog 100 Unit/Ml 10 Ml Vial) 35 unit SUBCUT BID [facility] Last Admin: 08/29/24 07:58 Dose: 35 unit Documented By: MAYELA Insulin Human Lispro (Insulin Lispro 100 Unit/Ml 3 Ml Vial) 0 unit SUBCUT QIDACHS [facility]; Protocol Last Admin: 08/29/24 11:49 Dose: 4 unit Documented By: MAYELA Losartan Potassium (Losartan Potassium 25 Mg Tablet) 25 mg PO DAILY [facility]; Protocol Last Admin: 08/29/24 07:59 Dose: 25 mg Documented By: MAYELA Magnesium Hydroxide (Milk Of Magnesia 30 Ml Oral.Susp) 30 ml PO DAILY PRN PRN Reason: Constipation Melatonin (Melatonin 3 Mg Tablet) 6 mg PO BEDTIME PRN PRN Reason: Insomnia Last Admin: 08/21/24 02:09 Dose: 6 mg Documented By: LYSZ Methadone HCl (Methadone Hcl 20 Mg/2 Ml Oral.Conc) 140 mg PO DAILY [facility] Last Admin: 08/29/24 09:31 Dose: 140 mg Documented By: MAYELA Co-signed By: CARLO Naloxone HCl (Naloxone Hcl 0.4 Mg/Ml Vial) 0.04 mg IVPUSH Q5M PRN PRN Reason: Excessive sedation or RR < 8 Naloxone HCl (Naloxone Hcl 0.4 Mg/Ml Vial) 0.04 mg IVPUSH Q5M PRN PRN Reason: Excessive sedation or RR < 8 Nicotine (Nicotine 14 Mg Patch.Td24) 14 mg TRANSDERMA DAILY [facility] Last Admin: 08/29/24 07:59 Dose: 14 mg Documented By: MAYELA Ondansetron HCl (Ondansetron Hcl 4 Mg/2 Ml Vial) 4 mg IVPUSH Q8H PRN PRN Reason: Nausea and Vomiting Oxycodone HCl (Oxycodone Hcl Immed Release 5 Mg Tablet) 5 mg PO Q4H PRN PRN Reason: Pain, Moderate(Pain Scale 4-6) Last Admin: 08/28/24 21:53 Dose: 5 mg Documented By: DANIELLE Sodium Chloride (0.9 % Sodium Chloride Flush 3 Ml Syringe) 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 intractable pain secondary to PAD vs neuropathy vs cellulitis, doesn't appear infected and blood cultures negative received vanco and zosyn intilaly which was stopped 08/20. on doxycycline. 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 patient had angio procedure -has some 5th toe discolouration -need vascular follow up DM with hyperglycemia : continue Lantus 35 bid and adjust as needed (usually 40 bid at home), dm diet ,fs with sliding scale coverage. hold metformin, continue jardiance obesity- BMI 31.2 encouraged for weight loss . Opioid use disorder:on Methadone nicotine dependence- smoking cessation discussed and encouraged nicotine patch hx DVT/PE: on eliquis. full code VTE prophy: eliquis inpatient for possible cellulitis and need for wound debridment, awaiting wound vac Quality Stroke Does the patient have a stroke diagnosis?: No VTE Prior VTE?: Yes VTE Risk Level:: Medical - moderate - high VTE Device Contraindication: Treatment Not Indicated VTE Drug Contraindication: N/A - Med Ordered
[2024-08-29 19:29] VITALS: BP 123/58; PULSE 77; RESP 20; TEMP 36.4; O2SAT 95
[2024-08-29 19:36] LABS: Glucose, Whole Blood 244 mg/dL (60-115)
[2024-08-29 23:22] VITALS: BP 114/63; PULSE 78; RESP 18; TEMP 36.2; O2SAT 95
[2024-08-30] VITALS (8 sets, daily range): BP systolic 117–137; BP diastolic 58–84; PULSE 69–81; RESP 16–18; TEMP 36.2–36.8; O2SAT 93–98
[2024-08-30] MEDS: HYDROmorphone HCl 0.5 MG/0.5 ML SYRINGE 1 MG IVPUSH ×6 (00:04→20:39)
[2024-08-30] MEDS: Doxycycline Monohydrate 100 MG CAPSULE PO ×2 (01:23→14:51)
[2024-08-30 07:35] LABS: Glucose, Whole Blood 209 mg/dL (60-115)
[2024-08-30] MEDS: Insulin Glargine,Hum.rec.anlog 100 UNIT/ML 10 ML VIAL 35 UNIT SUBCUT ×2 (08:15→20:38)
[2024-08-30] MEDS: Nicotine 14 MG PATCH.TD24 TRANSDERMA (08:16)
[2024-08-30] MEDS: Baclofen 10 MG TABLET PO ×3 (08:16→20:39)
[2024-08-30] MEDS: 0.9 % Sodium Chloride Flush 3 ML SYRINGE IVFLUSH ×2 (08:16→17:07)
[2024-08-30] MEDS: Aspirin 81 MG TAB.CHEW PO (08:16)
[2024-08-30] MEDS: Losartan Potassium 25 MG TABLET PO (08:16)
[2024-08-30] MEDS: Insulin Lispro 100 UNIT/ML 3 ML VIAL SUBCUT ×4 (08:16→20:37)
[2024-08-30] MEDS: DULoxetine HCl 30 MG CAPSULE.DR PO (08:17)
[2024-08-30] MEDS: Gabapentin 100 MG CAPSULE PO ×3 (08:17→20:39)
[2024-08-30] MEDS: Apixaban 5 MG TABLET PO ×2 (08:17→20:39)
[2024-08-30] MEDS: Atorvastatin Calcium 80 MG TABLET PO (08:17)
[2024-08-30] MEDS: methADONE HCl 20 MG/2 ML ORAL.CONC 140 MG PO (10:21)
[2024-08-30 11:12] LABS: Glucose, Whole Blood 250 mg/dL (60-115)
--- NOTE | 2024-08-30 12:52 | HO.PM.IMPN ---
Subjective Subjective Date of Service: 08/30/24 Interval History: pad , need for wound vac. 5th toe discoluration Review of Systems pain seems somewhat controlled.. Physical Exam Vital Signs: Vital Signs: Last Vital Signs Temp 97.8 F 08/30/24 11:43 Pulse 69 08/30/24 11:43 Resp 18 08/30/24 11:43 BP 132/67 08/30/24 11:43 Pulse Ox 96 08/30/24 11:43 O2 Del Method Room Air 08/30/24 11:43 O2 Flow Rate 0 08/22/24 10:37 BMI result Body Mass Index 31.2 General: AO X 3, no acute distress Resp: CTA bilateral CVS: S1,S2,RRR GI: +BS, NT, no distention Skin: Discoloration of the 5th toe on the left, dry Neuro: motor grossly intact Objective Data Active Medications Acetaminophen (Acetaminophen 325 Mg Tablet) 650 mg PO Q6H PRN PRN Reason: Pain, Mild (Pain Scale 1-3) Apixaban (Apixaban 5 Mg Tablet) 5 mg PO BID [facility] Last Admin: 08/30/24 08:17 Dose: 5 mg Documented By: MAYELA Aspirin (Aspirin 81 Mg Tab.Chew) 81 mg PO DAILY [facility] Last Admin: 08/30/24 08:16 Dose: 81 mg Documented By: MAYELA Atorvastatin Calcium (Atorvastatin Calcium 80 Mg Tablet) 80 mg PO DAILY [facility] Last Admin: 08/30/24 08:17 Dose: 80 mg Documented By: MAYELA Baclofen (Baclofen 10 Mg Tablet) 10 mg PO TID [facility] Last Admin: 08/30/24 08:16 Dose: 10 mg Documented By: MAYELA Calcium Carbonate (Calcium Carbonate 750 Mg Tab.Chew) 750 mg PO Q4H PRN PRN Reason: Heartburn Collagenase (Collagenase Clostridium Hist. 30 Gm Tube) 1 appl TOPICAL DAILY [facility]; Protocol Last Admin: 08/30/24 08:27 Dose: Not Given Documented By: MAYELA Non-Admin Reason: Patient Refused Doxycycline Monohydrate (Doxycycline Monohydrate 100 Mg Capsule) 100 mg PO Q12H [facility] Last Admin: 08/30/24 01:23 Dose: 100 mg Documented By: DANIELLE Duloxetine HCl (Duloxetine Hcl 30 Mg Capsule.) 30 mg PO DAILY [facility] Last Admin: 08/30/24 08:17 Dose: 30 mg Documented By: MAYELA Empagliflozin (Empagliflozin 25 Mg Tablet) 25 mg PO DAILY [facility] Last Admin: 08/21/24 09:40 Dose: 25 mg Documented By: SADE Gabapentin (Gabapentin 100 Mg Capsule) 100 mg PO TID [facility] Last Admin: 08/30/24 08:17 Dose: 100 mg Documented By: MAYELA Glucose (Glucose Gel 15 Gm Gel..Gram.) 15 gm PO Q15M PRN; Protocol PRN Reason: per Hypoglycemia Standing Ord. Hydromorphone HCl (Hydromorphone Hcl 0.5 Mg/0.5 Ml Syringe) 1 mg IVPUSH Q3H PRN; Protocol PRN Reason: Pain, Severe (Pain Scale 7-10) Last Admin: 08/30/24 11:41 Dose: 1 mg Documented By: MAYELA Dextrose (D10) 250 mls @ 750 mls/hr IV Q15M PRN; Protocol PRN Reason: per Hypoglycemia Standing Ord. Insulin Glargine (Insulin Glargine,Hum.Rec.Anlog 100 Unit/Ml 10 Ml Vial) 35 unit SUBCUT BID [facility] Last Admin: 08/30/24 08:15 Dose: 35 unit Documented By: MAYELA Insulin Human Lispro (Insulin Lispro 100 Unit/Ml 3 Ml Vial) 0 unit SUBCUT QIDACHS [facility]; Protocol Last Admin: 08/30/24 11:40 Dose: 4 unit Documented By: MAYELA Losartan Potassium (Losartan Potassium 25 Mg Tablet) 25 mg PO DAILY [facility]; Protocol Last Admin: 08/30/24 08:16 Dose: 25 mg Documented By: MAYELA Magnesium Hydroxide (Milk Of Magnesia 30 Ml Oral.Susp) 30 ml PO DAILY PRN PRN Reason: Constipation Melatonin (Melatonin 3 Mg Tablet) 6 mg PO BEDTIME PRN PRN Reason: Insomnia Last Admin: 08/21/24 02:09 Dose: 6 mg Documented By: ADRIANA Methadone HCl (Methadone Hcl 20 Mg/2 Ml Oral.Conc) 140 mg PO DAILY [facility] Last Admin: 08/30/24 10:21 Dose: 140 mg Documented By: MAYELA Co-signed By: AUGUSTO Naloxone HCl (Naloxone Hcl 0.4 Mg/Ml Vial) 0.04 mg IVPUSH Q5M PRN PRN Reason: Excessive sedation or RR < 8 Naloxone HCl (Naloxone Hcl 0.4 Mg/Ml Vial) 0.04 mg IVPUSH Q5M PRN PRN Reason: Excessive sedation or RR < 8 Nicotine (Nicotine 14 Mg Patch.Td24) 14 mg TRANSDERMA DAILY [facility] Last Admin: 08/30/24 08:16 Dose: 14 mg Documented By: MAYELA Ondansetron HCl (Ondansetron Hcl 4 Mg/2 Ml Vial) 4 mg IVPUSH Q8H PRN PRN Reason: Nausea and Vomiting Oxycodone HCl (Oxycodone Hcl Immed Release 5 Mg Tablet) 5 mg PO Q4H PRN PRN Reason: Pain, Moderate(Pain Scale 4-6) Last Admin: 08/28/24 21:53 Dose: 5 mg Documented By: DANIELLE Sodium Chloride (0.9 % Sodium Chloride Flush 3 Ml Syringe) 3 ml IVFLUSH QSHIFT [facility] Last Admin: 08/30/24 08:16 Dose: 3 ml Documented By: MAYELA Labs 08/23/24 08:50 08/23/24 08:50 Labs: Laboratory Results - last 24 hr 08/29/24 08/29/24 08/30/24 16:25 19:31 07:31 POC Glucose 230 H 244 H 209 H 08/30/24 11:08 POC Glucose 250 H Assessment and Plan (1) Intractable pain: Status: Acute (2) Peripheral arterial disease: Status: Chronic Plan 54-year-old female with a past medical history significant for peripheral arterial disease, type 2 diabetes on insulin, NSTEMI/CVA in 2021, DVT/bilateral PE on Eliquis, MRSA bacteremia polysubstance IV drug abuse, 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 intractable pain secondary to PAD vs neuropathy vs cellulitis, doesn't appear infected and blood cultures negative received vanco and zosyn intilaly which was stopped 08/20. on doxycycline. 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 patient had angio procedure -has some 5th toe discolouration -vascular is aware to follow up . DM with hyperglycemia : continue Lantus 35 bid and adjust as needed (usually 40 bid at home), dm diet ,fs with sliding scale coverage. hold metformin, continue jardiance obesity- BMI 31.2 encouraged for weight loss . Opioid use disorder:on Methadone nicotine dependence- smoking cessation discussed and encouraged nicotine patch hx DVT/PE: on eliquis. full code VTE prophy: eliquis inpatient for possible cellulitis and need for wound debridment, awaiting wound vac Quality Stroke Does the patient have a stroke diagnosis?: No VTE Prior VTE?: Yes VTE Risk Level:: Medical - moderate - high VTE Device Contraindication: Treatment Not Indicated VTE Drug Contraindication: N/A - Med Ordered
--- NOTE | 2024-08-30 13:28 | P.PNVS_ITS ---
Subjective Subjective Date of Service: 08/30/24 Interval history: We were re-consulted for new findings of discolorations of her left 3 and 5 toes that have just presented. The pt has no new complaints, she does continue to endorse pain with dressing changes. She denies any decreased feeling/coolness of her foot or decreased ROM. Physical Exam Vital Signs: Vital Signs: Last Vital Signs Temp 97.8 F 08/30/24 11:43 Pulse 69 08/30/24 11:43 Resp 18 08/30/24 11:43 BP 132/67 08/30/24 11:43 Pulse Ox 96 08/30/24 11:43 O2 Del Method Room Air 08/30/24 11:43 O2 Flow Rate 0 08/22/24 10:37 BMI result Body Mass Index 31.2 Const: General: comfortable and no acute distress Orientati on/consciousness: patient oriented x3 HEENT: Ears: hearing grossly normal bilaterally Resp: Effort & Inspection: normal respiratory effort and able to speak in complete sentences Auscultation: clear to auscultation bilaterally Cardio: Rate: regular rate Rhythm: regular rhythm Heart sounds: S1 normal heart sound present and S2 normal heart sound present Bruits: no abdominal aortic bruits, no carotid bruits, no femoral bruits and no renal bruits GI: Palpation (GI): No Abdominal aortic bruit present Neuro: General: patient oriented x3 Cranial nerves: Yes CN's II-XII intact bilaterally Extrem: Other: Left foot: dry gangrene noted on the left 3 and 5 toes circumferentially and only on the plantar aspect of the left 4th toe. There is a new scabbed wound noted on the dorsal aspect of the foot, near the toes. Faint but palpable DP pulse. Progress Note: A&P Assessment and plan (1) Dry gangrene: Status: Acute Assessment and Plan: We were re-consulted for new findings of dry gangrene noted on her left foot, in the 3rd and 5th toes and on the plantar aspect of the 4th toe. We recommend keeping the area clean and dry and paint with betadine as needed. There is no acute surgical intervention. She will likely need an amputation; however, she did not want to discuss that today. We would allow the areas to declare themselves and follow up with her outpatient. We do recommend a wound vac for the left lower extremity wound. Thank you for the consult. If there are any questions or concerns, please do not hesitate to reach out to us. Time Spent With Patient Time: Total time managing care of this patient today ____ minutes. Procedures Date of Service Date of Service: 08/30/24 Quality Stroke Does the patient have a stroke diagnosis?: No VTE Prior VTE?: Yes VTE Risk Level:: Medical - moderate - high VTE Device Contraindication: Treatment Not Indicated VTE Drug Contraindication: N/A - Med Ordered
--- NOTE | 2024-08-30 14:36 | MHC.CM.PN ---
Met with patient to review the discharge plan. Patient prefers to discharge home with services. [facility] will resume services at discharge. A clinical update has been sent to the agency. [facility] has been sent a referral to increase [employer] hours. Patient with a BKA will discharge with a wound vac and possible further debridement of the L Calf and 5th toe. CM will follow for discharge planning.
[2024-08-30] MEDS: Collagenase Clostridium Hist. 30 GM TUBE 1 APPL TOPICAL (16:24)
[2024-08-30 16:34] LABS: Glucose, Whole Blood 222 mg/dL (60-115)
[2024-08-30] MEDS: HYDROmorphone HCl 1 MG/ML SYRINGE IVPUSH (17:07)
--- NOTE | 2024-08-30 17:45 | HO.WOUND ---
Wound Consult: Follow up 54yr old?female admitted [place] [facility] - See progress notes and H&P for detailed history.? Wound consult follow up for Bilateral Lower legs and Coccyx.? Patient agreeable to assessment and photo documentation.? Patient refuses coccyx assessment at this time due to pain from dressing to left lower leg. Reinforced education of frequent repositions and turns and allows topical care. Coccyx Etiology: ??Unstageable Pressure injury Present on Admission Measurements: 1cm x 1cm x 0.2cm Wound Bed: pink moist tissue noted suspect partial thickness tissue loss, but unable to tell given adherent barrier cream and slough - patient was very resistive to assessment and cleaning of wound bed at this time Drainage / Odor: none noted Edges: ? well defined Nimisha wound: ? MASD - IAD No Induration, Fluctuance or Warmth noted Pain: Pain reported by patient Goals of Treatment: ? Triad and foam dressing Right Residual Leg - Diabetic wounds - dried scabbed wound beds - no drainage observed - agreeable to cleansing with betadine and durafiber AG. Although wounds are dry betadine will allow scabs to stay stable Left Heel 08/20/24 Left Heel 08/21/24 08/30/24 Left Heel - Worsening black necrotic tissue - patient refused dressing per chart review and sicussion with direct care team - pt denies refusals - we had jose discussion on limb salvage and the importance of daily dressing changes. She is agreeable to daily dressing changes going forward. Diabetic wound - necrotic tissue adherent to wound bed - Continue to follow with Vascular surgery - of note several toes are cold and black - providers aware. Left Lateral Posterior Leg 08/20/24 08/21/24 Left Medial Leg 08/20/24 08/30/24 08/30/24 suspect mixed vascular wounds - s/p debridement by Dr. Muhammad 08/19/24 - wound bed remains with adherent yellow moist slough wet to moist dressing applied at bedside, pt does not tolerate well we needed to stop mid change for pain medication administration she removed her own dressing as this allowed her to tolerate the dressing change better - see MAR. The leg remains cool to touch various areas of purpura, shiney skin, hairloss to legs, brittle toenails, necrotic wound beds and extreme pain. Plan for future dressing changes: Patient will in the morning talk with her direct care nurse to agree on a time of dressing, time or premedication and dressing saturation with Normal saline for less traumatic removal. No new topical recommendations needed at this time. Recommendations: 1. Turn and Reposition every 2 hours and as needed for patient comfort.? Use pillows or wedges to support off loading positions. 2. Off Load all bony prominences with use of pillows and heel boots if needed.? Apply Preventative foams where needed. ? 3. Monitor for incontinence and moisture control, use barrier creams when needed for prevention and treatment. 4. Provide adequate and supplemental nutrition.? 5. Order low air loss mattress. 6. When applicable maintain blood glucose levels per Providers order. 7. Right Residual Leg - [place] with Betadine, cover scabs with durafiber AG cover with dry gauze, abd pad. Change every other day. 8. Coccyx - Off Load Pressure with Q2hr turns and pillows. Cleanse with PH balance spray or wipes, pat dry. ?Apply thin layer of Triad to wound bed. Do not remove all of paste between applications as this may cause further skin damage.? Cover with foam dressing to aid in off loading and protection from friction. Change every 5 days and PRN. 9. Lower Leg - Cleanse and irrigate with NS, pat dry. Apply saline moist gauze to wound beds, cover with dry gauze, ABD pads and wrap. Change Daily. 10. Left Heel - Cleanse and irrigate with NS, pat dry. Apply barrier to the immediate nimisha wound, apply thick layer of Santyl to entire wound bed, cover with saline moist gauze, secure foam dressing, change Daily. Re-consult wound care Nurse for wound deterioration or wound changes.
[2024-08-30 20:09] LABS: Glucose, Whole Blood 255 mg/dL (60-115)
[2024-08-30] MEDS: ALPRAZolam 0.5 MG TABLET PO (21:06)
[2024-08-30] MEDS: oxyCODONE HCl Immed Release 5 MG TABLET PO (21:38)
[2024-08-31] VITALS (8 sets, daily range): BP systolic 119–164; BP diastolic 60–85; PULSE 76–82; RESP 16–18; TEMP 36–36.5; O2SAT 95–98
[2024-08-31] MEDS: 0.9 % Sodium Chloride Flush 3 ML SYRINGE IVFLUSH ×4 (00:19→23:22)
[2024-08-31] MEDS: HYDROmorphone HCl 0.5 MG/0.5 ML SYRINGE 1 MG IVPUSH ×8 (00:22→23:20)
[2024-08-31] MEDS: Doxycycline Monohydrate 100 MG CAPSULE PO ×2 (01:46→14:16)
[2024-08-31 07:34] LABS: Glucose, Whole Blood 249 mg/dL (60-115)
[2024-08-31] MEDS: Insulin Lispro 100 UNIT/ML 3 ML VIAL SUBCUT ×4 (08:21→21:48)
[2024-08-31] MEDS: Insulin Glargine,Hum.rec.anlog 100 UNIT/ML 10 ML VIAL 40 UNIT SUBCUT ×2 (08:21→21:49)
[2024-08-31] MEDS: Atorvastatin Calcium 80 MG TABLET PO (08:22)
[2024-08-31] MEDS: Baclofen 10 MG TABLET PO ×3 (08:23→20:10)
[2024-08-31] MEDS: Losartan Potassium 25 MG TABLET PO (08:23)
[2024-08-31] MEDS: oxyCODONE HCl Immed Release 5 MG TABLET PO ×2 (08:23→21:49)
[2024-08-31] MEDS: Gabapentin 100 MG CAPSULE PO ×3 (08:23→20:10)
[2024-08-31] MEDS: Apixaban 5 MG TABLET PO ×2 (08:23→20:10)
[2024-08-31] MEDS: DULoxetine HCl 30 MG CAPSULE.DR PO (08:23)
[2024-08-31] MEDS: Aspirin 81 MG TAB.CHEW PO (08:24)
[2024-08-31] MEDS: Nicotine 14 MG PATCH.TD24 TRANSDERMA (08:25)
[2024-08-31] MEDS: methADONE HCl 20 MG/2 ML ORAL.CONC 140 MG PO (08:26)
[2024-08-31 11:12] LABS: Glucose, Whole Blood 313 mg/dL (60-115)
--- NOTE | 2024-08-31 14:39 | P.PNIM_ITS ---
Subjective Subjective Date of Service: 08/31/24 Interval History: seen and evaluated feels better wound improving pain under fair control Review of Systems Review of Systems: Yes all other systems are reviewed and are negative Physical Exam 2 Vital Signs: Vital Signs: Last Vital Signs Temp 97.6 F 08/31/24 11:52 Pulse 82 08/31/24 11:52 Resp 18 08/31/24 11:52 BP 164/85 H 08/31/24 11:52 Pulse Ox 97 08/31/24 11:52 O2 Del Method Room Air 08/31/24 11:52 O2 Flow Rate 0 08/22/24 10:37 BMI result Body Mass Index 31.2 Const: Other: General: AO X 3, no acute distress Resp: CTA bilateral CVS: S1,S2,RRR GI: +BS, NT, no distention Skin: wounds debrided and dressing in place Neuro: motor grossly intact Psych: appropriate affect Objective Data Active Medications Acetaminophen (Acetaminophen 325 Mg Tablet) 650 mg PO Q6H PRN PRN Reason: Pain, Mild (Pain Scale 1-3) Alprazolam (Alprazolam 0.5 Mg Tablet) 0.5 mg PO BEDTIME PRN PRN Reason: Anxiety Last Admin: 08/30/24 21:06 Dose: 0.5 mg Documented By: FRANCISCA Apixaban (Apixaban 5 Mg Tablet) 5 mg PO BID [facility] Last Admin: 08/31/24 08:23 Dose: 5 mg Documented By: NNEKA Aspirin (Aspirin 81 Mg Tab.Chew) 81 mg PO DAILY [facility] Last Admin: 08/31/24 08:24 Dose: 81 mg Documented By: NNEKA Atorvastatin Calcium (Atorvastatin Calcium 80 Mg Tablet) 80 mg PO DAILY [facility] Last Admin: 08/31/24 08:22 Dose: 80 mg Documented By: NNEKA Baclofen (Baclofen 10 Mg Tablet) 10 mg PO TID [facility] Last Admin: 08/31/24 14:16 Dose: 10 mg Documented By: NNEKA Calcium Carbonate (Calcium Carbonate 750 Mg Tab.Chew) 750 mg PO Q4H PRN PRN Reason: Heartburn Collagenase (Collagenase Clostridium Hist. 30 Gm Tube) 1 appl TOPICAL DAILY [facility]; Protocol Last Admin: 08/30/24 16:24 Dose: 1 appl Documented By: MAYELA Doxycycline Monohydrate (Doxycycline Monohydrate 100 Mg Capsule) 100 mg PO Q12H [facility]CLUD[facility] Last Admin: 08/31/24 14:16 Dose: 100 mg Documented By: NNEKA Duloxetine HCl (Duloxetine Hcl 30 Mg Capsule.) 30 mg PO DAILY [facility] Last Admin: 08/31/24 08:23 Dose: 30 mg Documented By: NNEKA Empagliflozin (Empagliflozin 25 Mg Tablet) 25 mg PO DAILY [facility] Last Admin: 08/21/24 09:40 Dose: 25 mg Documented By: GRAZJUAN JOSE Gabapentin (Gabapentin 100 Mg Capsule) 100 mg PO TID [facility] Last Admin: 08/31/24 14:16 Dose: 100 mg Documented By: NNEKA Glucose (Glucose Gel 15 Gm Gel..Gram.) 15 gm PO Q15M PRN; Protocol PRN Reason: per Hypoglycemia Standing Ord. Hydromorphone HCl (Hydromorphone Hcl 0.5 Mg/0.5 Ml Syringe) 1 mg IVPUSH Q3H PRN; Protocol PRN Reason: Pain, Severe (Pain Scale 7-10) Last Admin: 08/31/24 13:13 Dose: 1 mg Documented By: NNEKA Dextrose (D10) 250 mls @ 750 mls/hr IV Q15M PRN; Protocol PRN Reason: per Hypoglycemia Standing Ord. Insulin Glargine (Insulin Glargine,Hum.Rec.Anlog 100 Unit/Ml 10 Ml Vial) 40 unit SUBCUT BID COUNT [facility]CLUDES [facility] Last Admin: 08/31/24 08:21 Dose: 40 unit Documented By: NNEKA Insulin Human Lispro (Insulin Lispro 100 Unit/Ml 3 Ml Vial) 0 unit SUBCUT QIDACHS COUNT [facility]CLUDES [facility]; Protocol Last Admin: 08/31/24 11:43 Dose: 8 unit Documented By: NNEKA Losartan Potassium (Losartan Potassium 25 Mg Tablet) 25 mg PO DAILY [facility]; Protocol Last Admin: 08/31/24 08:23 Dose: 25 mg Documented By: NNEKA Magnesium Hydroxide (Milk Of Magnesia 30 Ml Oral.Susp) 30 ml PO DAILY PRN PRN Reason: Constipation Melatonin (Melatonin 3 Mg Tablet) 6 mg PO BEDTIME PRN PRN Reason: Insomnia Last Admin: 08/21/24 02:09 Dose: 6 mg Documented By: LYSZ Methadone HCl (Methadone Hcl 20 Mg/2 Ml Oral.Conc) 140 mg PO DAILY [facility] Last Admin: 08/31/24 08:26 Dose: 140 mg Documented By: NNEKA Co-signed By: TYREE Naloxone HCl (Naloxone Hcl 0.4 Mg/Ml Vial) 0.04 mg IVPUSH Q5M PRN PRN Reason: Excessive sedation or RR < 8 Naloxone HCl (Naloxone Hcl 0.4 Mg/Ml Vial) 0.04 mg IVPUSH Q5M PRN PRN Reason: Excessive sedation or RR < 8 Nicotine (Nicotine 14 Mg Patch.Td24) 14 mg TRANSDERMA DAILY COUNT [facility]CLUDES [facility] Last Admin: 08/31/24 08:25 Dose: 14 mg Documented By: NNEKA Ondansetron HCl (Ondansetron Hcl 4 Mg/2 Ml Vial) 4 mg IVPUSH Q8H PRN PRN Reason: Nausea and Vomiting Oxycodone HCl (Oxycodone Hcl Immed Release 5 Mg Tablet) 5 mg PO Q4H PRN PRN Reason: Pain, Moderate(Pain Scale 4-6) Last Admin: 08/31/24 08:23 Dose: 5 mg Documented By: NNEKA Sodium Chloride (0.9 % Sodium Chloride Flush 3 Ml Syringe) 3 ml IVFLUSH QSHIFT COUNT [facility]CLUDES [facility] Last Admin: 08/31/24 14:18 Dose: 3 ml Documented By: NNEKA Labs 08/23/24 08:50 08/23/24 08:50 Labs: Laboratory Results - last 24 hr 08/30/24 08/30/24 08/31/24 16:28 19:12 07:31 POC Glucose 222 H 255 H 249 H 08/31/24 11:08 POC Glucose 313 H Assessment and Plan (1) Dry gangrene: Status: Acute (2) Open wound of left lower leg: Status: Acute (3) Eschar of lower leg: Status: Acute Plan 54-year-old female with a past medical history significant for peripheral arterial disease, type 2 diabetes on insulin, NSTEMI/CVA in 2021, DVT/bilateral PE on Eliquis, MRSA bacteremia polysubstance IV drug abuse, 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 intractable pain secondary to PAD vs neuropathy vs cellulitis, doesn't appear infected and blood cultures negative received vanco and zosyn intilaly which was stopped 08/20. on doxycycline. 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 DM with hyperglycemia : continue Lantus 40 bid sliding scale coverage. hold metformin, continue jardiance obesity- BMI 31.2 encouraged for weight loss . Opioid use disorder:on Methadone nicotine dependence- smoking cessation discussed and encouraged nicotine patch hx DVT/PE: on eliquis. full code VTE prophy: eliquis inpatient for possible cellulitis and need for wound debridment, awaiting wound vac for discharge planning Quality Stroke Does the patient have a stroke diagnosis?: No VTE Prior VTE?: Yes VTE Risk Level:: Medical - moderate - high VTE Device Contraindication: Treatment Not Indicated VTE Drug Contraindication: N/A - Med Ordered
[2024-08-31 16:17] LABS: Glucose, Whole Blood 258 mg/dL (60-115)
[2024-08-31] MEDS: Collagenase Clostridium Hist. 30 GM TUBE 1 APPL TOPICAL (17:22)
[2024-08-31] MEDS: Sodium Hypochlorite 0.125% 473 ML SOLUTION 1 APPL TOPICAL (17:32)
--- NOTE | 2024-08-31 18:00 | P.PNGS_ITS ---
Subjective Subjective Date of Service: 08/31/24 Interval history: Patient has bilateral lower leg wounds but is very controlling with her allowance for dressing changes etc.. Complaining of a lot of pain especially the dressing change procedure despite receiving Dilaudid pre procedure Physical Exam 2 Vital Signs: Vital Signs: Last Vital Signs Temp 97.6 F 08/31/24 15:06 Pulse 82 08/31/24 15:06 Resp 18 08/31/24 15:06 BP 138/78 08/31/24 15:06 Pulse Ox 98 08/31/24 15:06 O2 Del Method Room Air 08/31/24 15:06 O2 Flow Rate 0 08/22/24 10:37 BMI result Body Mass Index 31.2 Skin: Other: Right BKA stump wound is bandaged and she is not allowing for this to be taken down The left foot area heel has some fat tissue exposed but some eschar that is larger little looser generally the surrounding skin looks good. The toe wounds are dark in color and the appearance with various degrees of some dry gangrene. The left posterior calf area actually looks very good with great pink red granulation tissue through the vast majority of the wound. It took forever to get the patient to get the dressings wet and then slowly remove the gauze. No significant bleeding occurring. Objective Data Active Medications Acetaminophen (Acetaminophen 325 Mg Tablet) 650 mg PO Q6H PRN PRN Reason: Pain, Mild (Pain Scale 1-3) Alprazolam (Alprazolam 0.5 Mg Tablet) 0.5 mg PO BEDTIME PRN PRN Reason: Anxiety Last Admin: 08/30/24 21:06 Dose: 0.5 mg Documented By: FRANCISCA Apixaban (Apixaban 5 Mg Tablet) 5 mg PO BID [facility] Last Admin: 08/31/24 08:23 Dose: 5 mg Documented By: NNEKA Aspirin (Aspirin 81 Mg Tab.Chew) 81 mg PO DAILY [facility] Last Admin: 08/31/24 08:24 Dose: 81 mg Documented By: NNEKA Atorvastatin Calcium (Atorvastatin Calcium 80 Mg Tablet) 80 mg PO DAILY [facility] Last Admin: 08/31/24 08:22 Dose: 80 mg Documented By: NNEKA Baclofen (Baclofen 10 Mg Tablet) 10 mg PO TID [facility] Last Admin: 08/31/24 14:16 Dose: 10 mg Documented By: NNEKA Calcium Carbonate (Calcium Carbonate 750 Mg Tab.Chew) 750 mg PO Q4H PRN PRN Reason: Heartburn Collagenase (Collagenase Clostridium Hist. 30 Gm Tube) 1 appl TOPICAL DAILY [facility]; Protocol Last Admin: 08/31/24 17:22 Dose: 1 appl Documented By: NNEKA Doxycycline Monohydrate (Doxycycline Monohydrate 100 Mg Capsule) 100 mg PO Q12H [facility] Last Admin: 08/31/24 14:16 Dose: 100 mg Documented By: NNEKA Duloxetine HCl (Duloxetine Hcl 30 Mg Capsule.Dr) 30 mg PO DAILY [facility] Last Admin: 08/31/24 08:23 Dose: 30 mg Documented By: NNEKA Empagliflozin (Empagliflozin 25 Mg Tablet) 25 mg PO DAILY [facility] Last Admin: 08/21/24 09:40 Dose: 25 mg Documented By: SADE Gabapentin (Gabapentin 100 Mg Capsule) 100 mg PO TID [facility] Last Admin: 08/31/24 14:16 Dose: 100 mg Documented By: NNEKA Glucose (Glucose Gel 15 Gm Gel..Gram.) 15 gm PO Q15M PRN; Protocol PRN Reason: per Hypoglycemia Standing Ord. Hydromorphone HCl (Hydromorphone Hcl 0.5 Mg/0.5 Ml Syringe) 1 mg IVPUSH Q3H PRN; Protocol PRN Reason: Pain, Severe (Pain Scale 7-10) Last Admin: 08/31/24 16:30 Dose: 1 mg Documented By: NNEKA Dextrose (D10) 250 mls @ 750 mls/hr IV Q15M PRN; Protocol PRN Reason: per Hypoglycemia Standing Ord. Insulin Glargine (Insulin Glargine,Hum.Rec.Anlog 100 Unit/Ml 10 Ml Vial) 40 unit SUBCUT BID [facility] Last Admin: 08/31/24 08:21 Dose: 40 unit Documented By: NNEKA Insulin Human Lispro (Insulin Lispro 100 Unit/Ml 3 Ml Vial) 0 unit SUBCUT QIDACHS [facility]; Protocol Last Admin: 08/31/24 16:31 Dose: 6 unit Documented By: NNEKA Losartan Potassium (Losartan Potassium 25 Mg Tablet) 25 mg PO DAILY [facility]; Protocol Last Admin: 08/31/24 08:23 Dose: 25 mg Documented By: NNEKA Magnesium Hydroxide (Milk Of Magnesia 30 Ml Oral.Susp) 30 ml PO DAILY PRN PRN Reason: Constipation Melatonin (Melatonin 3 Mg Tablet) 6 mg PO BEDTIME PRN PRN Reason: Insomnia Last Admin: 08/21/24 02:09 Dose: 6 mg Documented By: ADRIANA Methadone HCl (Methadone Hcl 20 Mg/2 Ml Oral.Conc) 140 mg PO DAILY [facility] Last Admin: 08/31/24 08:26 Dose: 140 mg Documented By: NNEKA Co-signed By: TYREE Naloxone HCl (Naloxone Hcl 0.4 Mg/Ml Vial) 0.04 mg IVPUSH Q5M PRN PRN Reason: Excessive sedation or RR < 8 Naloxone HCl (Naloxone Hcl 0.4 Mg/Ml Vial) 0.04 mg IVPUSH Q5M PRN PRN Reason: Excessive sedation or RR < 8 Nicotine (Nicotine 14 Mg Patch.Td24) 14 mg TRANSDERMA DAILY [facility] Last Admin: 08/31/24 08:25 Dose: 14 mg Documented By: NNEKA Ondansetron HCl (Ondansetron Hcl 4 Mg/2 Ml Vial) 4 mg IVPUSH Q8H PRN PRN Reason: Nausea and Vomiting Oxycodone HCl (Oxycodone Hcl Immed Release 5 Mg Tablet) 5 mg PO Q4H PRN PRN Reason: Pain, Moderate(Pain Scale 4-6) Last Admin: 08/31/24 08:23 Dose: 5 mg Documented By: NNEKA Sodium Chloride (0.9 % Sodium Chloride Flush 3 Ml Syringe) 3 ml IVFLUSH QSHIFT [facility] Last Admin: 08/31/24 14:18 Dose: 3 ml Documented By: NNEKA Sodium Hypochlorite (Sodium Hypochlorite 0.125% 473 Ml Solution) 1 appl TOPICAL DAILY [facility] Last Admin: 08/31/24 17:32 Dose: 1 appl Documented By: NNEKA Labs 08/23/24 08:50 08/23/24 08:50 Labs: Laboratory Results - last 24 hr 08/30/24 08/31/24 08/31/24 19:12 07:31 11:08 POC Glucose 255 H 249 H 313 H 08/31/24 16:13 POC Glucose 258 H Procedures Date of Service Date of Service: 08/31/24 Progress Note: A&P Assessment and plan (1) Open wound of left lower leg: Status: Acute Assessment and Plan: 54-year-old female with bilateral lower extremity wounds. In regard to the right stump wound we will hopefully try to see the wound tomorrow and make some determinations. Then for the left foot like the idea of Santyl elevating to not allow any pressure on the left heel. The tips of the toes that have some dark color continue with Betadine as hopefully with better blood flow this will all improve. Left calf areas generally quite good there some scabs and little eschar in a couple of places on the skin but generally looks good. The healthy superficial open wounds on the calf look nice and are not necessarily wounds that would be amenable we are helped by wound VAC. For these wounds continue with some Dakin solution and do wet-to-dry dressings twice a day and see if the patient tolerates this little bit better. She is willing to give this a try. Continue with the premedication. May return the wound VAC Time Spent With Patient Time: Total time managing care of this patient today ____ minutes. Quality Stroke Does the patient have a stroke diagnosis?: No VTE Prior VTE?: Yes VTE Risk Level:: Medical - moderate - high VTE Device Contraindication: Treatment Not Indicated VTE Drug Contraindication: N/A - Med Ordered
--- NOTE | 2024-08-31 18:40 | PC.NURSE ---
Dressing to left leg changed with Dr Muir after premedication [place]. Previous dressing difficult to remove and needing much soaking with saline to loosen dressings. Dakins dressing applied. New orders entered by Dr Muir
[2024-08-31] MEDS: ALPRAZolam 0.5 MG TABLET PO (20:16)
[2024-08-31 20:48] LABS: Glucose, Whole Blood 287 mg/dL (60-115)
[2024-09-01 03:34] VITALS: BP 134/77; PULSE 83; RESP 18; TEMP 36.2; O2SAT 95
[2024-09-01] MEDS: HYDROmorphone HCl 0.5 MG/0.5 ML SYRINGE 1 MG IVPUSH ×2 (03:38→06:38)
[2024-09-01] MEDS: Doxycycline Monohydrate 100 MG CAPSULE PO ×2 (03:38→14:28)
[2024-09-01] MEDS: oxyCODONE HCl Immed Release 5 MG TABLET PO ×3 (05:57→16:40)
[2024-09-01 07:03] VITALS: BP 123/69; PULSE 81; RESP 18; TEMP 36.3; O2SAT 94
[2024-09-01 07:11] LABS: Glucose, Whole Blood 256 mg/dL (60-115)
[2024-09-01 08:14] VITALS: BP 128/76
[2024-09-01] MEDS: Losartan Potassium 25 MG TABLET PO (08:14)
[2024-09-01] MEDS: Atorvastatin Calcium 80 MG TABLET PO (08:14)
[2024-09-01] MEDS: Aspirin 81 MG TAB.CHEW PO (08:14)
[2024-09-01] MEDS: Baclofen 10 MG TABLET PO ×3 (08:14→21:02)
[2024-09-01] MEDS: DULoxetine HCl 30 MG CAPSULE.DR PO (08:15)
[2024-09-01] MEDS: Insulin Glargine,Hum.rec.anlog 100 UNIT/ML 10 ML VIAL 40 UNIT SUBCUT ×2 (08:15→21:02)
[2024-09-01] MEDS: Apixaban 5 MG TABLET PO ×2 (08:15→21:02)
[2024-09-01] MEDS: Gabapentin 100 MG CAPSULE PO ×3 (08:15→21:02)
[2024-09-01] MEDS: Insulin Lispro 100 UNIT/ML 3 ML VIAL SUBCUT ×4 (08:15→21:02)
[2024-09-01] MEDS: methADONE HCl 20 MG/2 ML ORAL.CONC 140 MG PO (08:16)
[2024-09-01] MEDS: Nicotine 14 MG PATCH.TD24 TRANSDERMA (08:16)
[2024-09-01] MEDS: 0.9 % Sodium Chloride Flush 3 ML SYRINGE IVFLUSH ×3 (08:26→21:03)
[2024-09-01 09:18] LABS: MANUAL DIFF FLAG NO
[2024-09-01 09:23] LABS: Basophils Absolute Auto 0.1 X10*3/uL (0.0-0.2); Basophils Percent Auto 0.9 % (0-2); Eosinophils Absolute Auto 0.2 X10*3/uL (0.0-0.4); Eosinophils Percent Auto 1.6 % (0-4); Hematocrit 32.5 % (37.0-47.0); Hemoglobin 10.1 g/dl (12.0-16.0); Imm Gran Abs Auto 0.35 X10*3/uL (0.00-0.03); Imm Gran Pct Auto 2.7 % (0.0-0.4); Lymphocytes Absolute Auto 2.4 X10*3/uL (1.2-4.9); Lymphocytes Percent Auto 18.8 % (20-40); Mean Corpuscular HGB Conc 31.1 g/dl (31.0-35.0); Mean Corpuscular Hemoglobin 25.6 pg (27.0-33.0); Mean Corpuscular Volume 82.5 fL (80.0-98.0); Mean Platelet Volume 9.3 fL (9.4-12.3); Monocytes Absolute Auto 0.8 X10*3/uL (0.1-1.2); Monocytes Percent Auto 6.1 % (2-11); Neutrophils Percent Auto 69.9 % (45-73); Platelet Count 698 X10*3/uL (160-400); Red Blood Count 3.94 X10*6/uL (4.20-5.50); Red Cell Distribution Width 15.4 % (11.0-16.0); White Blood Count 12.9 X10*3/uL (4.8-10.8)
[2024-09-01 09:35] LABS: Anion Gap 12 (12-20); Blood Urea Nitrogen 23 mg/dL (9-16); Calcium 8.9 mg/dL (8.4-10.2); Carbon Dioxide 29 mmol/L (22-29); Chloride 95 mmol/L (96-108); Estimated Glomerular Filt Rate > 60; Glucose Random 337 mg/dL (60-115); Potassium 4.3 mmol/L (3.3-5.1); Sodium 132 mmol/L (135-145)
[2024-09-01] MEDS: HYDROmorphone HCl 1 MG/ML SYRINGE IVPUSH ×4 (10:57→21:02)
[2024-09-01] MEDS: Sodium Hypochlorite 0.125% 473 ML SOLUTION 1 APPL TOPICAL (10:59)
[2024-09-01] MEDS: Collagenase Clostridium Hist. 30 GM TUBE 1 APPL TOPICAL (10:59)
[2024-09-01 11:04] LABS: Glucose, Whole Blood 301 mg/dL (60-115)
[2024-09-01 11:53] VITALS: BP 129/66; PULSE 76; RESP 18; TEMP 36; O2SAT 97
--- NOTE | 2024-09-01 13:28 | P.PNIM_ITS ---
Subjective Subjective Date of Service: 09/01/24 Interval History: seen and evaluated feels better wound improving pain under fair control Physical Exam 2 Vital Signs: Vital Signs: Last Vital Signs Temp 96.8 F 09/01/24 11:53 Pulse 76 09/01/24 11:53 Resp 18 09/01/24 11:53 BP 129/66 09/01/24 11:53 Pulse Ox 97 09/01/24 11:53 O2 Del Method Room Air 09/01/24 11:53 O2 Flow Rate 0 08/22/24 10:37 BMI result Body Mass Index 31.2 Const: Other: General: AO X 3, no acute distress Resp: CTA bilateral CVS: S1,S2,RRR GI: +BS, NT, no distention Skin: wounds debrided and dressing in place Neuro: motor grossly intact Psych: appropriate affect Objective Data Active Medications Acetaminophen (Acetaminophen 325 Mg Tablet) 650 mg PO Q6H PRN PRN Reason: Pain, Mild (Pain Scale 1-3) Alprazolam (Alprazolam 0.5 Mg Tablet) 0.5 mg PO BEDTIME PRN PRN Reason: Anxiety Last Admin: 08/31/24 20:16 Dose: 0.5 mg Documented By: MARLY Comments: early per pt request Apixaban (Apixaban 5 Mg Tablet) 5 mg PO BID [facility] Last Admin: 09/01/24 08:15 Dose: 5 mg Documented By: NNEKA Aspirin (Aspirin 81 Mg Tab.Chew) 81 mg PO DAILY [facility] Last Admin: 09/01/24 08:14 Dose: 81 mg Documented By: NNEKA Atorvastatin Calcium (Atorvastatin Calcium 80 Mg Tablet) 80 mg PO DAILY [facility] Last Admin: 09/01/24 08:14 Dose: 80 mg Documented By: NNEKA Baclofen (Baclofen 10 Mg Tablet) 10 mg PO TID [facility] Last Admin: 09/01/24 08:14 Dose: 10 mg Documented By: NNEKA Calcium Carbonate (Calcium Carbonate 750 Mg Tab.Chew) 750 mg PO Q4H PRN PRN Reason: Heartburn Collagenase (Collagenase Clostridium Hist. 30 Gm Tube) 1 appl TOPICAL DAILY [facility]; Protocol Last Admin: 09/01/24 10:59 Dose: 1 appl Documented By: NNEKA Doxycycline Monohydrate (Doxycycline Monohydrate 100 Mg Capsule) 100 mg PO Q12H [facility] Last Admin: 09/01/24 03:38 Dose: 100 mg Documented By: MARLY Duloxetine HCl (Duloxetine Hcl 30 Mg Capsule.Dr) 30 mg PO DAILY [facility] Last Admin: 09/01/24 08:15 Dose: 30 mg Documented By: NNEKA Empagliflozin (Empagliflozin 25 Mg Tablet) 25 mg PO DAILY [facility] Last Admin: 08/21/24 09:40 Dose: 25 mg Documented By: SADE Gabapentin (Gabapentin 100 Mg Capsule) 100 mg PO TID [facility] Last Admin: 09/01/24 08:15 Dose: 100 mg Documented By: NNEKA Glucose (Glucose Gel 15 Gm Gel..Gram.) 15 gm PO Q15M PRN; Protocol PRN Reason: per Hypoglycemia Standing Ord. Hydromorphone HCl (Hydromorphone Hcl 1 Mg/Ml Syringe) 1 mg IVPUSH Q6H PRN; Protocol PRN Reason: Pain, Severe (Pain Scale 7-10) Last Admin: 09/01/24 10:57 Dose: 1 mg Documented By: NNEKA Dextrose (D10) 250 mls @ 750 mls/hr IV Q15M PRN; Protocol PRN Reason: per Hypoglycemia Standing Ord. Insulin Glargine (Insulin Glargine,Hum.Rec.Anlog 100 Unit/Ml 10 Ml Vial) 40 unit SUBCUT BID [facility] Last Admin: 09/01/24 08:15 Dose: 40 unit Documented By: NNEKA Insulin Human Lispro (Insulin Lispro 100 Unit/Ml 3 Ml Vial) 0 unit SUBCUT QIDACHS [facility]; Protocol Last Admin: 09/01/24 12:04 Dose: 8 unit Documented By: NNEKA Losartan Potassium (Losartan Potassium 25 Mg Tablet) 25 mg PO DAILY [facility]; Protocol Last Admin: 09/01/24 08:14 Dose: 25 mg Documented By: NNEKA Magnesium Hydroxide (Milk Of Magnesia 30 Ml Oral.Susp) 30 ml PO DAILY PRN PRN Reason: Constipation Melatonin (Melatonin 3 Mg Tablet) 6 mg PO BEDTIME PRN PRN Reason: Insomnia Last Admin: 08/21/24 02:09 Dose: 6 mg Documented By: LYSZ Methadone HCl (Methadone Hcl 20 Mg/2 Ml Oral.Conc) 140 mg PO DAILY [facility] Last Admin: 09/01/24 08:16 Dose: 140 mg Documented By: NNEKA Co-signed By: BHASKARNM Naloxone HCl (Naloxone Hcl 0.4 Mg/Ml Vial) 0.04 mg IVPUSH Q5M PRN PRN Reason: Excessive sedation or RR < 8 Naloxone HCl (Naloxone Hcl 0.4 Mg/Ml Vial) 0.04 mg IVPUSH Q5M PRN PRN Reason: Excessive sedation or RR < 8 Nicotine (Nicotine 14 Mg Patch.Td24) 14 mg TRANSDERMA DAILY [facility] Last Admin: 09/01/24 08:16 Dose: 14 mg Documented By: NNEKA Ondansetron HCl (Ondansetron Hcl 4 Mg/2 Ml Vial) 4 mg IVPUSH Q8H PRN PRN Reason: Nausea and Vomiting Oxycodone HCl (Oxycodone Hcl Immed Release 5 Mg Tablet) 5 mg PO Q4H PRN PRN Reason: Pain, Moderate(Pain Scale 4-6) Last Admin: 09/01/24 12:37 Dose: 5 mg Documented By: NNEKA Sodium Chloride (0.9 % Sodium Chloride Flush 3 Ml Syringe) 3 ml IVFLUSH QSHIFT [facility] Last Admin: 09/01/24 08:26 Dose: 3 ml Documented By: NNEKA Sodium Hypochlorite (Sodium Hypochlorite 0.125% 473 Ml Solution) 1 appl TOPICAL DAILY [facility] Last Admin: 09/01/24 10:59 Dose: 1 appl Documented By: NNEKA Labs 09/01/24 08:56 09/01/24 08:56 Labs: Laboratory Results - last 24 hr 08/31/24 08/31/24 09/01/24 16:13 20:45 07:07 MCV MCH MCHC RDW Plt Count MPV Immature Gran % (Auto) Neut % (Auto) Lymph % (Auto) [place] % (Auto) Eos % (Auto) Baso % (Auto) Lymph # (Auto) [place] # (Auto) Eos # (Auto) Baso # (Auto) Abs Immat Gran (auto) Absolute Neuts (auto) Absolute Nucleated RBC Nucleated RBC % (auto) Anion Gap Estim Creat Clear Calc Estimated GFR POC Glucose 258 H 287 H 256 H Random Glucose Calcium 09/01/24 09/01/24 08:56 10:59 MCV 82.5 MCH 25.6 L MCHC 31.1 RDW 15.4 Plt Count 698 H D MPV 9.3 L Immature Gran % (Auto) 2.7 H Neut % (Auto) 69.9 Lymph % (Auto) 18.8 L [place] % (Auto) 6.1 Eos % (Auto) 1.6 Baso % (Auto) 0.9 Lymph # (Auto) 2.4 [place] # (Auto) 0.8 Eos # (Auto) 0.2 Baso # (Auto) 0.1 Abs Immat Gran (auto) 0.35 H Absolute Neuts (auto) 9.0 H Absolute Nucleated RBC 0.000 Nucleated RBC % (auto) 0.0 Anion Gap 12 Estim Creat Clear Calc 101.0 Estimated GFR > 60 POC Glucose 301 H Random Glucose 337 H Calcium 8.9 Assessment and Plan (1) Dry gangrene: Status: Acute (2) Open wound of left lower leg: Status: Acute (3) Eschar of lower leg: Status: Acute Plan 54-year-old female with a past medical history significant for peripheral arterial disease, type 2 diabetes on insulin, NSTEMI/CVA in 2021, DVT/bilateral PE on Eliquis, MRSA bacteremia polysubstance IV drug abuse, 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 intractable pain secondary to PAD vs neuropathy vs cellulitis, doesn't appear infected and blood cultures negative received vanco and zosyn intilaly which was stopped 08/20. on doxycycline. 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 hold metformin, continue jardiance obesity- BMI 31.2 encouraged for weight loss . Opioid use disorder:on Methadone nicotine dependence- smoking cessation discussed and encouraged nicotine patch hx DVT/PE: on eliquis. full code VTE prophy: eliquis inpatient for possible cellulitis and need for wound debridment, awaiting surgical clearance to discharge home with VNA and wound care planning Quality Stroke Does the patient have a stroke diagnosis?: No VTE Prior VTE?: Yes VTE Risk Level:: Medical - moderate - high VTE Device Contraindication: Treatment Not Indicated VTE Drug Contraindication: N/A - Med Ordered
--- NOTE | 2024-09-01 15:24 | MHC.CM.PN ---
CM MET WITH PT TO DISCUSS DC PLANNING PT REPORTS SHE IS GOING HOME AT DC SHE IS AWARE THE CURRENT ORDERS ARE FOR TWICE DAILY DRESSING CHANGES PT REPORTS SHE DOES NOT FEEL THAT IS REALISTIC AND WILL SPEAK WITH SURGEON SHE IS ALSO UNSURE IF [facility] IS GOING TO RETURN AND CONTINUE DELIVERING HER METHADONE DAILY RETURN REFERRAL WAS PLACED TO [facility], THEY ACCEPTED THEY WERE INFORMED TODAY THAT PT WILL BE READY TO DC TOMORROW VS MONDAY
[2024-09-01 15:28] VITALS: BP 130/65; PULSE 83; RESP 18; TEMP 36.6; O2SAT 98
[2024-09-01 16:16] LABS: Glucose, Whole Blood 254 mg/dL (60-115)
--- NOTE | 2024-09-01 18:14 | HO.SKINPHOTO ---
wounds during dressing change
--- NOTE | 2024-09-01 18:34 | PC.NURSE ---
Pt premedicated with 1mg IV Dilaudid for dressing change. Dressing saurated with NS to assist with dressing removal. After approximately 45 minutes, some of dressings able to be removed without difficulty. A large portion of the dressing remained attached to wound. Pt refused to allow this RN to assist with the removal of the remaining dressing. Warm water placed into fracture bed farrar and pt leg submerged for approximatley 30 minutes longer to attempt to loosen dressing. Dressing continues to be difficult to remove but eventually was taken off by pt. Wound bloody. Pt anxious, teary, with raised voice and crying throughout dressing change. Pt repeatedly stated There is no way I am doing this twice a day. I can't do it, its too painful Photos taken and placed on chart. Dakins dressing applied per order.
[2024-09-01 19:21] VITALS: BP 143/76; PULSE 81; RESP 16; TEMP 36.4; O2SAT 96
[2024-09-01 20:55] LABS: Glucose, Whole Blood 271 mg/dL (60-115)
[2024-09-01] MEDS: ALPRAZolam 0.5 MG TABLET PO (21:01)
[2024-09-02] VITALS (7 sets, daily range): BP systolic 126–142; BP diastolic 67–82; PULSE 72–85; RESP 16–20; TEMP 36.1–36.6; O2SAT 93–100
[2024-09-02] MEDS: HYDROmorphone HCl 1 MG/ML SYRINGE IVPUSH ×6 (00:55→21:26)
[2024-09-02] MEDS: Doxycycline Monohydrate 100 MG CAPSULE PO ×2 (02:41→13:05)
[2024-09-02] MEDS: oxyCODONE HCl Immed Release 5 MG TABLET PO ×3 (02:41→20:11)
[2024-09-02 07:33] LABS: Glucose, Whole Blood 263 mg/dL (60-115)
[2024-09-02] MEDS: 0.9 % Sodium Chloride Flush 3 ML SYRINGE IVFLUSH ×3 (07:33→20:12)
[2024-09-02] MEDS: Insulin Lispro 100 UNIT/ML 3 ML VIAL SUBCUT ×4 (07:33→20:11)
[2024-09-02] MEDS: Insulin Glargine,Hum.rec.anlog 100 UNIT/ML 10 ML VIAL 45 UNIT SUBCUT ×2 (08:03→20:12)
[2024-09-02] MEDS: Nicotine 14 MG PATCH.TD24 TRANSDERMA (08:04)
[2024-09-02] MEDS: Losartan Potassium 25 MG TABLET PO (08:04)
[2024-09-02] MEDS: Baclofen 10 MG TABLET PO ×3 (08:04→20:10)
[2024-09-02] MEDS: Gabapentin 100 MG CAPSULE PO ×3 (08:04→20:10)
[2024-09-02] MEDS: DULoxetine HCl 30 MG CAPSULE.DR PO (08:04)
[2024-09-02] MEDS: Atorvastatin Calcium 80 MG TABLET PO (08:04)
[2024-09-02] MEDS: Aspirin 81 MG TAB.CHEW PO (08:04)
[2024-09-02] MEDS: methADONE HCl 20 MG/2 ML ORAL.CONC 140 MG PO (08:05)
[2024-09-02] MEDS: Apixaban 5 MG TABLET PO ×2 (08:12→20:10)
--- NOTE | 2024-09-02 08:44 | PC.NURSE ---
refusing wound care at this time
--- NOTE | 2024-09-02 09:09 | PC.NURSE ---
Pt states she will allow dressing change this afternoon.
[2024-09-02 11:20] LABS: Glucose, Whole Blood 252 mg/dL (60-115)
--- NOTE | 2024-09-02 14:19 | P.PNIM_ITS ---
Subjective Subjective Date of Service: 09/02/24 Interval History: seen and evaluated feels better wound improving, tolerating dressing but refused the night time one pain under fair control Review of Systems Review of Systems: Yes all other systems are reviewed and are negative Physical Exam 2 Vital Signs: Vital Signs: Last Vital Signs Temp 97.1 F 09/02/24 11:34 Pulse 77 09/02/24 11:34 Resp 20 09/02/24 11:34 BP 127/73 09/02/24 11:34 Pulse Ox 95 09/02/24 11:34 O2 Del Method Room Air 09/02/24 11:34 O2 Flow Rate 0 08/22/24 10:37 BMI result Body Mass Index 31.2 Const: Other: General: AO X 3, no acute distress Resp: CTA bilateral CVS: S1,S2,RRR GI: +BS, NT, no distention Skin: wounds debrided and dressing in place, overall improved right leg stump wound, LLE calf wound improving and covered, toes tips dusky-black in color and cold. Neuro: motor grossly intact Psych: appropriate affect Objective Data Active Medications Acetaminophen (Acetaminophen 325 Mg Tablet) 650 mg PO Q6H PRN PRN Reason: Pain, Mild (Pain Scale 1-3) Alprazolam (Alprazolam 0.5 Mg Tablet) 0.5 mg PO BEDTIME PRN PRN Reason: Anxiety Last Admin: 09/01/24 21:01 Dose: 0.5 mg Documented By: TERESO Apixaban (Apixaban 5 Mg Tablet) 5 mg PO BID [facility] Last Admin: 09/02/24 08:12 Dose: 5 mg Documented By: SON Aspirin (Aspirin 81 Mg Tab.Chew) 81 mg PO DAILY [facility] Last Admin: 09/02/24 08:04 Dose: 81 mg Documented By: SON Atorvastatin Calcium (Atorvastatin Calcium 80 Mg Tablet) 80 mg PO DAILY [facility] Last Admin: 09/02/24 08:04 Dose: 80 mg Documented By: SON Baclofen (Baclofen 10 Mg Tablet) 10 mg PO TID [facility] Last Admin: 09/02/24 08:04 Dose: 10 mg Documented By: SON Calcium Carbonate (Calcium Carbonate 750 Mg Tab.Chew) 750 mg PO Q4H PRN PRN Reason: Heartburn Collagenase (Collagenase Clostridium Hist. 30 Gm Tube) 1 appl TOPICAL DAILY [facility]; Protocol Last Admin: 09/01/24 10:59 Dose: 1 appl Documented By: NNEKA Doxycycline Monohydrate (Doxycycline Monohydrate 100 Mg Capsule) 100 mg PO Q12H [facility] Last Admin: 09/02/24 13:05 Dose: 100 mg Documented By: SON Duloxetine HCl (Duloxetine Hcl 30 Mg Capsule.Dr) 30 mg PO DAILY [facility] Last Admin: 09/02/24 08:04 Dose: 30 mg Documented By: SON Empagliflozin (Empagliflozin 25 Mg Tablet) 25 mg PO DAILY [facility] Last Admin: 08/21/24 09:40 Dose: 25 mg Documented By: GRAZJUAN JOSE Gabapentin (Gabapentin 100 Mg Capsule) 100 mg PO TID [facility] Last Admin: 09/02/24 08:04 Dose: 100 mg Documented By: SON Glucose (Glucose Gel 15 Gm Gel..Gram.) 15 gm PO Q15M PRN; Protocol PRN Reason: per Hypoglycemia Standing Ord. Hydromorphone HCl (Hydromorphone Hcl 1 Mg/Ml Syringe) 1 mg IVPUSH Q3H PRN; Protocol PRN Reason: Pain, Severe (Pain Scale 7-10) Last Admin: 09/02/24 11:44 Dose: 1 mg Documented By: SON Dextrose (D10) 250 mls @ 750 mls/hr IV Q15M PRN; Protocol PRN Reason: per Hypoglycemia Standing Ord. Insulin Glargine (Insulin Glargine,Hum.Rec.Anlog 100 Unit/Ml 10 Ml Vial) 45 unit SUBCUT BID [facility] Last Admin: 09/02/24 08:03 Dose: 45 unit Documented By: SON Insulin Human Lispro (Insulin Lispro 100 Unit/Ml 3 Ml Vial) 0 unit SUBCUT QIDACHS [facility]; Protocol Last Admin: 09/02/24 11:40 Dose: 6 unit Documented By: SON Losartan Potassium (Losartan Potassium 25 Mg Tablet) 25 mg PO DAILY [facility]; Protocol Last Admin: 09/02/24 08:04 Dose: 25 mg Documented By: SON Magnesium Hydroxide (Milk Of Magnesia 30 Ml Oral.Susp) 30 ml PO DAILY PRN PRN Reason: Constipation Melatonin (Melatonin 3 Mg Tablet) 6 mg PO BEDTIME PRN PRN Reason: Insomnia Last Admin: 08/21/24 02:09 Dose: 6 mg Documented By: ADRIANA Methadone HCl (Methadone Hcl 20 Mg/2 Ml Oral.Conc) 140 mg PO DAILY [facility] Last Admin: 09/02/24 08:05 Dose: 140 mg Documented By: SON Co-signed By: HASMUKH Naloxone HCl (Naloxone Hcl 0.4 Mg/Ml Vial) 0.04 mg IVPUSH Q5M PRN PRN Reason: Excessive sedation or RR < 8 Naloxone HCl (Naloxone Hcl 0.4 Mg/Ml Vial) 0.04 mg IVPUSH Q5M PRN PRN Reason: Excessive sedation or RR < 8 Nicotine (Nicotine 14 Mg Patch.Td24) 14 mg TRANSDERMA DAILY [facility] Last Admin: 09/02/24 08:04 Dose: 14 mg Documented By: SON Ondansetron HCl (Ondansetron Hcl 4 Mg/2 Ml Vial) 4 mg IVPUSH Q8H PRN PRN Reason: Nausea and Vomiting Oxycodone HCl (Oxycodone Hcl Immed Release 5 Mg Tablet) 5 mg PO Q4H PRN PRN Reason: Pain, Moderate(Pain Scale 4-6) Last Admin: 09/02/24 02:41 Dose: 5 mg Documented By: TERESO Sodium Chloride (0.9 % Sodium Chloride Flush 3 Ml Syringe) 3 ml IVFLUSH QSHIFT [facility] Last Admin: 09/02/24 07:33 Dose: 3 ml Documented By: SON Sodium Hypochlorite (Sodium Hypochlorite 0.125% 473 Ml Solution) 1 appl TOPICAL DAILY [facility] Last Admin: 09/01/24 10:59 Dose: 1 appl Documented By: NNEKA Labs 09/01/24 08:56 09/01/24 08:56 Labs: Laboratory Results - last 24 hr 09/01/24 09/01/24 09/02/24 16:10 20:51 07:28 POC Glucose 254 H 271 H 263 H 09/02/24 11:12 POC Glucose 252 H Assessment and Plan (1) Dry gangrene: Status: Acute (2) Open wound of left lower leg: Status: Acute (3) Eschar of lower leg: Status: Acute Plan 54-year-old female with a past medical history significant for peripheral arterial disease, type 2 diabetes on insulin, NSTEMI/CVA in 2021, DVT/bilateral PE on Eliquis, MRSA bacteremia polysubstance IV drug abuse, 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 intractable pain secondary to PAD vs neuropathy vs cellulitis, doesn't appear infected and blood cultures negative received vanco and zosyn intilaly which was stopped 08/20. on doxycycline. 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 hold metformin, continue jardiance obesity- BMI 31.2 encouraged for weight loss . Opioid use disorder:on Methadone nicotine dependence- smoking cessation discussed and encouraged nicotine patch hx DVT/PE: on eliquis. full code VTE prophy: eliquis inpatient for possible cellulitis and need for wound debridment, awaiting surgical clearance to discharge home with VNA and wound care planning Quality Stroke Does the patient have a stroke diagnosis?: No VTE Prior VTE?: Yes VTE Risk Level:: Medical - moderate - high VTE Device Contraindication: Treatment Not Indicated VTE Drug Contraindication: N/A - Med Ordered
--- NOTE | 2024-09-02 15:11 | PC.NURSE ---
attempting wound care, patient is extremely emotional about leg wound, will re-approach.
[2024-09-02] MEDS: Sodium Hypochlorite 0.125% 473 ML SOLUTION 1 APPL TOPICAL (15:36)
[2024-09-02] MEDS: Collagenase Clostridium Hist. 30 GM TUBE 1 APPL TOPICAL (15:36)
--- NOTE | 2024-09-02 15:39 | PC.NURSE ---
Wound care as ordered, pt eventually tolerated wound care. Necrotic heel, discolored tissue. Mod Drainage, odor noted. LLE with granulation tissue, odor, nimisha wound red.
[2024-09-02 16:29] LABS: Glucose, Whole Blood 252 mg/dL (60-115)
[2024-09-02 19:53] LABS: Glucose, Whole Blood 205 mg/dL (60-115)
[2024-09-02] MEDS: ALPRAZolam 0.5 MG TABLET PO (20:11)
[2024-09-03] MEDS: Doxycycline Monohydrate 100 MG CAPSULE PO ×2 (01:52→13:59)
[2024-09-03] MEDS: HYDROmorphone HCl 1 MG/ML SYRINGE IVPUSH ×3 (01:52→08:58)
[2024-09-03] MEDS: oxyCODONE HCl Immed Release 5 MG TABLET PO (03:33)
[2024-09-03 03:48] VITALS: BP 116/65; PULSE 82; RESP 18; TEMP 36.2; O2SAT 99
[2024-09-03 07:04] VITALS: BP 130/60; PULSE 82; RESP 16; TEMP 36.4; O2SAT 96
[2024-09-03 07:08] LABS: Glucose, Whole Blood 239 mg/dL (60-115)
[2024-09-03] MEDS: 0.9 % Sodium Chloride Flush 3 ML SYRINGE IVFLUSH (07:14)
[2024-09-03] MEDS: Insulin Lispro 100 UNIT/ML 3 ML VIAL SUBCUT ×4 (07:14→20:33)
[2024-09-03] MEDS: Insulin Glargine,Hum.rec.anlog 100 UNIT/ML 10 ML VIAL 45 UNIT SUBCUT ×2 (08:20→20:33)
[2024-09-03] MEDS: Nicotine 14 MG PATCH.TD24 TRANSDERMA (08:21)
[2024-09-03] MEDS: Gabapentin 100 MG CAPSULE PO ×3 (08:21→19:50)
[2024-09-03] MEDS: Baclofen 10 MG TABLET PO ×3 (08:22→19:50)
[2024-09-03] MEDS: Apixaban 5 MG TABLET PO ×2 (08:22→19:50)
[2024-09-03] MEDS: Losartan Potassium 25 MG TABLET PO (08:22)
[2024-09-03] MEDS: DULoxetine HCl 30 MG CAPSULE.DR PO (08:22)
[2024-09-03] MEDS: Aspirin 81 MG TAB.CHEW PO (08:22)
[2024-09-03] MEDS: Atorvastatin Calcium 80 MG TABLET PO (08:22)
[2024-09-03] MEDS: Collagenase Clostridium Hist. 30 GM TUBE 1 APPL TOPICAL (08:23)
[2024-09-03] MEDS: methADONE HCl 20 MG/2 ML ORAL.CONC 140 MG PO (08:23)
[2024-09-03] MEDS: Sodium Hypochlorite 0.125% 473 ML SOLUTION 1 APPL TOPICAL (08:23)
--- NOTE | 2024-09-03 09:00 | PC.NURSE ---
refusing dressing change this am
[2024-09-03 11:50] LABS: Glucose, Whole Blood 235 mg/dL (60-115)
[2024-09-03] MEDS: HYDROmorphone HCl 2 MG TABLET 1 MG PO ×4 (11:54→23:54)
[2024-09-03 12:00] VITALS: BP 118/58; PULSE 82; RESP 18; TEMP 36.3; O2SAT 94
--- NOTE | 2024-09-03 12:34 | PC.NURSE ---
Pt continues to refuse wound care when offered.
--- NOTE | 2024-09-03 12:38 | HO.PM.IMPN ---
Subjective Subjective Date of Service: 09/03/24 Interval History: seen and evaluated feels better wound improving, tolerating dressing does not want new IV placed pain under fair control Review of Systems Review of Systems: Yes all other systems are reviewed and are negative Physical Exam Vital Signs: Vital Signs: Last Vital Signs Temp 97.4 F 09/03/24 12:00 Pulse 82 09/03/24 12:00 Resp 18 09/03/24 12:00 BP 118/58 L 09/03/24 12:00 Pulse Ox 94 09/03/24 12:00 O2 Del Method Room Air 09/03/24 12:00 O2 Flow Rate 0 08/22/24 10:37 BMI result Body Mass Index 31.2 Const: Other: General: AO X 3, no acute distress Resp: CTA bilateral CVS: S1,S2,RRR GI: +BS, NT, no distention Skin: wounds debrided and dressing in place, overall improved right leg stump wound, LLE calf wound improving and covered, toes tips dusky-black in color and cold also ischemic changes later palmar side of Lt foot. Neuro: motor grossly intact Psych: appropriate affect Objective Data Active Medications Acetaminophen (Acetaminophen 325 Mg Tablet) 650 mg PO Q6H PRN PRN Reason: Pain, Mild (Pain Scale 1-3) Alprazolam (Alprazolam 0.5 Mg Tablet) 0.5 mg PO BEDTIME PRN PRN Reason: Anxiety Last Admin: 09/02/24 20:11 Dose: 0.5 mg Documented By: CHRISTINAQC Apixaban (Apixaban 5 Mg Tablet) 5 mg PO BID [facility] Last Admin: 09/03/24 08:22 Dose: 5 mg Documented By: SON Aspirin (Aspirin 81 Mg Tab.Chew) 81 mg PO DAILY [facility] Last Admin: 09/03/24 08:22 Dose: 81 mg Documented By: SON Atorvastatin Calcium (Atorvastatin Calcium 80 Mg Tablet) 80 mg PO DAILY [facility] Last Admin: 09/03/24 08:22 Dose: 80 mg Documented By: SON Baclofen (Baclofen 10 Mg Tablet) 10 mg PO TID [facility] Last Admin: 09/03/24 08:22 Dose: 10 mg Documented By: SON Calcium Carbonate (Calcium Carbonate 750 Mg Tab.Chew) 750 mg PO Q4H PRN PRN Reason: Heartburn Collagenase (Collagenase Clostridium Hist. 30 Gm Tube) 1 appl TOPICAL DAILY [facility]; Protocol Last Admin: 09/03/24 08:23 Dose: 1 appl Documented By: SON Doxycycline Monohydrate (Doxycycline Monohydrate 100 Mg Capsule) 100 mg PO Q12H [facility] Last Admin: 09/03/24 01:52 Dose: 100 mg Documented By: CORAL Duloxetine HCl (Duloxetine Hcl 30 Mg Capsule.) 30 mg PO DAILY [facility] Last Admin: 09/03/24 08:22 Dose: 30 mg Documented By: SON Empagliflozin (Empagliflozin 25 Mg Tablet) 25 mg PO DAILY [facility] Last Admin: 08/21/24 09:40 Dose: 25 mg Documented By: GRAZIC Gabapentin (Gabapentin 100 Mg Capsule) 100 mg PO TID [facility] Last Admin: 09/03/24 08:21 Dose: 100 mg Documented By: SON Glucose (Glucose Gel 15 Gm Gel..Gram.) 15 gm PO Q15M PRN; Protocol PRN Reason: per Hypoglycemia Standing Ord. Hydromorphone HCl (Hydromorphone Hcl 2 Mg Tablet) 1 mg PO Q3H PRN PRN Reason: Pain, Severe (Pain Scale 7-10) Last Admin: 09/03/24 11:54 Dose: 1 mg Documented By: SON Dextrose (D10) 250 mls @ 750 mls/hr IV Q15M PRN; Protocol PRN Reason: per Hypoglycemia Standing Ord. Insulin Glargine (Insulin Glargine,Hum.Rec.Anlog 100 Unit/Ml 10 Ml Vial) 45 unit SUBCUT BID [facility] Last Admin: 09/03/24 08:20 Dose: 45 unit Documented By: SON Insulin Human Lispro (Insulin Lispro 100 Unit/Ml 3 Ml Vial) 0 unit SUBCUT QIDACHS [facility]; Protocol Last Admin: 09/03/24 11:54 Dose: 4 unit Documented By: SON Losartan Potassium (Losartan Potassium 25 Mg Tablet) 25 mg PO DAILY [facility]; Protocol Last Admin: 09/03/24 08:22 Dose: 25 mg Documented By: SON Magnesium Hydroxide (Milk Of Magnesia 30 Ml Oral.Susp) 30 ml PO DAILY PRN PRN Reason: Constipation Melatonin (Melatonin 3 Mg Tablet) 6 mg PO BEDTIME PRN PRN Reason: Insomnia Last Admin: 08/21/24 02:09 Dose: 6 mg Documented By: ADRIANA Methadone HCl (Methadone Hcl 20 Mg/2 Ml Oral.Conc) 140 mg PO DAILY [facility] Last Admin: 09/03/24 08:23 Dose: 140 mg Documented By: SON Co-signed By: AZUCENA Naloxone HCl (Naloxone Hcl 0.4 Mg/Ml Vial) 0.04 mg IVPUSH Q5M PRN PRN Reason: Excessive sedation or RR < 8 Naloxone HCl (Naloxone Hcl 0.4 Mg/Ml Vial) 0.04 mg IVPUSH Q5M PRN PRN Reason: Excessive sedation or RR < 8 Nicotine (Nicotine 14 Mg Patch.Td24) 14 mg TRANSDERMA DAILY [facility] Last Admin: 09/03/24 08:21 Dose: 14 mg Documented By: SON Ondansetron HCl (Ondansetron Hcl 4 Mg/2 Ml Vial) 4 mg IVPUSH Q8H PRN PRN Reason: Nausea and Vomiting Oxycodone HCl (Oxycodone Hcl Immed Release 5 Mg Tablet) 5 mg PO Q4H PRN PRN Reason: Pain, Moderate(Pain Scale 4-6) Last Admin: 09/03/24 03:33 Dose: 5 mg Documented By: CORAL Sodium Chloride (0.9 % Sodium Chloride Flush 3 Ml Syringe) 3 ml IVFLUSH QSHIFT [facility] Last Admin: 09/03/24 07:14 Dose: 3 ml Documented By: SON Sodium Hypochlorite (Sodium Hypochlorite 0.125% 473 Ml Solution) 1 appl TOPICAL DAILY [facility] Last Admin: 09/03/24 08:23 Dose: 1 appl Documented By: SON Labs 09/01/24 08:56 09/01/24 08:56 Labs: Laboratory Results - last 24 hr 09/02/24 09/02/24 09/03/24 16:01 19:24 07:04 POC Glucose 252 H 205 H 239 H 09/03/24 11:41 POC Glucose 235 H Assessment and Plan (1) Dry gangrene: Status: Acute (2) Open wound of left lower leg: Status: Acute (3) Eschar of lower leg: Status: Acute Plan 54-year-old female with a past medical history significant for peripheral arterial disease, type 2 diabetes on insulin, NSTEMI/CVA in 2021, DVT/bilateral PE on Eliquis, MRSA bacteremia polysubstance IV drug abuse, 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 intractable pain secondary to PAD vs neuropathy vs cellulitis, doesn't appear infected and blood cultures negative received vanco and zosyn intilaly which was stopped 08/20. on doxycycline. 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 vascular follow up, keeping the area clean and dry and paint with betadine as needed DM with hyperglycemia : continue Lantus 40 bid sliding scale coverage. hold metformin, continue jardiance obesity- BMI 31.2 encouraged for weight loss . Opioid use disorder:on Methadone nicotine dependence- smoking cessation discussed and encouraged nicotine patch hx DVT/PE: on eliquis. full code VTE prophy: eliquis inpatient for possible cellulitis and need for wound debridment, PEnding Placement at SNF, for PT and wound care planning Quality Stroke Does the patient have a stroke diagnosis?: No VTE Prior VTE?: Yes VTE Risk Level:: Medical - moderate - high VTE Device Contraindication: Treatment Not Indicated VTE Drug Contraindication: N/A - Med Ordered
--- NOTE | 2024-09-03 14:07 | PC.NURSE ---
Pt refused wound care when offered
[2024-09-03 15:45] VITALS: BP 130/61; PULSE 81; RESP 16; TEMP 36.5; O2SAT 96
[2024-09-03 16:24] LABS: Glucose, Whole Blood 240 mg/dL (60-115)
--- NOTE | 2024-09-03 17:38 | PC.NURSE ---
Pt finally allowed wound care.
[2024-09-03 19:24] VITALS: BP 117/55; PULSE 77; RESP 18; TEMP 36.6; O2SAT 98
[2024-09-03] MEDS: ALPRAZolam 0.5 MG TABLET PO (19:49)
[2024-09-03 20:09] LABS: Glucose, Whole Blood 243 mg/dL (60-115)
[2024-09-04] MEDS: Doxycycline Monohydrate 100 MG CAPSULE PO ×2 (01:02→15:35)
[2024-09-04] MEDS: oxyCODONE HCl Immed Release 5 MG TABLET PO ×2 (01:05→10:53)
[2024-09-04 03:11] VITALS: BP 127/70; PULSE 80; RESP 17; TEMP 36.6; O2SAT 97
[2024-09-04] MEDS: HYDROmorphone HCl 2 MG TABLET 1 MG PO ×4 (03:29→17:39)
[2024-09-04 07:06] VITALS: BP 159/82; PULSE 80; RESP 12; TEMP 36.8; O2SAT 98
[2024-09-04 07:25] LABS: Glucose, Whole Blood 256 mg/dL (60-115)
[2024-09-04 08:14] VITALS: BP 149/79
[2024-09-04] MEDS: Insulin Glargine,Hum.rec.anlog 100 UNIT/ML 10 ML VIAL 45 UNIT SUBCUT (08:14)
[2024-09-04] MEDS: Insulin Lispro 100 UNIT/ML 3 ML VIAL SUBCUT ×2 (08:14→12:29)
[2024-09-04] MEDS: Baclofen 10 MG TABLET PO ×2 (08:14→15:35)
[2024-09-04] MEDS: Losartan Potassium 25 MG TABLET PO (08:14)
[2024-09-04] MEDS: DULoxetine HCl 30 MG CAPSULE.DR PO (08:14)
[2024-09-04] MEDS: methADONE HCl 20 MG/2 ML ORAL.CONC 140 MG PO (08:15)
[2024-09-04] MEDS: Atorvastatin Calcium 80 MG TABLET PO (08:15)
[2024-09-04] MEDS: Aspirin 81 MG TAB.CHEW PO (08:15)
[2024-09-04] MEDS: Nicotine 14 MG PATCH.TD24 TRANSDERMA (08:15)
[2024-09-04] MEDS: Gabapentin 100 MG CAPSULE PO ×2 (08:15→15:35)
[2024-09-04] MEDS: Apixaban 5 MG TABLET PO (10:41)
[2024-09-04] MEDS: Collagenase Clostridium Hist. 30 GM TUBE 1 APPL TOPICAL (10:41)
[2024-09-04] MEDS: Sodium Hypochlorite 0.125% 473 ML SOLUTION 1 APPL TOPICAL (10:42)
--- NOTE | 2024-09-04 10:48 | P.PNIM_ITS ---
Subjective Subjective Date of Service: 09/04/24 Interval History: seen and examined no new issues reported Review of Systems Negative except HPI/interval history. Physical Exam 2 Vital Signs: Vital Signs: Last Vital Signs Temp 98.3 F 09/04/24 07:06 Pulse 80 09/04/24 07:06 Resp 12 09/04/24 07:06 BP 149/79 H 09/04/24 08:14 Pulse Ox 98 09/04/24 07:06 O2 Del Method Room Air 09/04/24 07:06 O2 Flow Rate 0 08/22/24 10:37 BMI result Body Mass Index 31.2 Const: Other: General: AO X 3, no acute distress Resp: CTA bilateral CVS: S1,S2,RRR GI: +BS, NT, no distention Skin: wounds debrided and dressing in place, overall improved right leg stump wound, LLE calf wound improving and covered, toes tips dusky-black in color and cold also ischemic changes later palmar side of Lt foot. Neuro: motor grossly intact Psych: appropriate affect Objective Data Active Medications Acetaminophen (Acetaminophen 325 Mg Tablet) 650 mg PO Q6H PRN PRN Reason: Pain, Mild (Pain Scale 1-3) Alprazolam (Alprazolam 0.5 Mg Tablet) 0.5 mg PO BEDTIME PRN PRN Reason: Anxiety Last Admin: 09/03/24 19:49 Dose: 0.5 mg Documented By: CORAL Apixaban (Apixaban 5 Mg Tablet) 5 mg PO BID [facility] Last Admin: 09/04/24 10:41 Dose: 5 mg Documented By: NNEKA Aspirin (Aspirin 81 Mg Tab.Chew) 81 mg PO DAILY [facility] Last Admin: 09/04/24 08:15 Dose: 81 mg Documented By: NNEKA Atorvastatin Calcium (Atorvastatin Calcium 80 Mg Tablet) 80 mg PO DAILY [facility] Last Admin: 09/04/24 08:15 Dose: 80 mg Documented By: NNEKA Baclofen (Baclofen 10 Mg Tablet) 10 mg PO TID [facility] Last Admin: 09/04/24 08:14 Dose: 10 mg Documented By: NNEKA Calcium Carbonate (Calcium Carbonate 750 Mg Tab.Chew) 750 mg PO Q4H PRN PRN Reason: Heartburn Collagenase (Collagenase Clostridium Hist. 30 Gm Tube) 1 appl TOPICAL DAILY [facility]; Protocol Last Admin: 09/04/24 10:41 Dose: 1 appl Documented By: NNEKA Dextrose (Dextrose 50 % 25 Gm/50 Ml Syringe) 25 gm IVPUSH Q15M PRN PRN Reason: HYPOGLYCEMIA STANDING PROTOCOL Doxycycline Monohydrate (Doxycycline Monohydrate 100 Mg Capsule) 100 mg PO Q12H [facility] Last Admin: 09/04/24 01:02 Dose: 100 mg Documented By: CORAL Duloxetine HCl (Duloxetine Hcl 30 Mg Capsule.Dr) 30 mg PO DAILY [facility] Last Admin: 09/04/24 08:14 Dose: 30 mg Documented By: NNEKA Empagliflozin (Empagliflozin 25 Mg Tablet) 25 mg PO DAILY [facility] Last Admin: 08/21/24 09:40 Dose: 25 mg Documented By: SADE Gabapentin (Gabapentin 100 Mg Capsule) 100 mg PO TID [facility] Last Admin: 09/04/24 08:15 Dose: 100 mg Documented By: NNEKA Glucose (Glucose Gel 15 Gm Gel..Gram.) 15 gm PO Q15M PRN; Protocol PRN Reason: per Hypoglycemia Standing Ord. Hydromorphone HCl (Hydromorphone Hcl 2 Mg Tablet) 1 mg PO Q3H PRN PRN Reason: Pain, Severe (Pain Scale 7-10) Last Admin: 09/04/24 07:14 Dose: 1 mg Documented By: NNEKA Insulin Glargine (Insulin Glargine,Hum.Rec.Anlog 100 Unit/Ml 10 Ml Vial) 45 unit SUBCUT BID [facility] Last Admin: 09/04/24 08:14 Dose: 45 unit Documented By: NNEKA Insulin Human Lispro (Insulin Lispro 100 Unit/Ml 3 Ml Vial) 0 unit SUBCUT QIDACHS [facility]; Protocol Last Admin: 09/04/24 08:14 Dose: 6 unit Documented By: NNEKA Losartan Potassium (Losartan Potassium 25 Mg Tablet) 25 mg PO DAILY [facility]; Protocol Last Admin: 09/04/24 08:14 Dose: 25 mg Documented By: NNEKA Magnesium Hydroxide (Milk Of Magnesia 30 Ml Oral.Susp) 30 ml PO DAILY PRN PRN Reason: Constipation Melatonin (Melatonin 3 Mg Tablet) 6 mg PO BEDTIME PRN PRN Reason: Insomnia Last Admin: 08/21/24 02:09 Dose: 6 mg Documented By: HO.LYSZ Methadone HCl (Methadone Hcl 20 Mg/2 Ml Oral.Conc) 140 mg PO DAILY [facility] Last Admin: 09/04/24 08:15 Dose: 140 mg Documented By: NNEKA Co-signed By: VIRGILIO Naloxone HCl (Naloxone Hcl 0.4 Mg/Ml Vial) 0.04 mg IVPUSH Q5M PRN PRN Reason: Excessive sedation or RR < 8 Naloxone HCl (Naloxone Hcl 0.4 Mg/Ml Vial) 0.04 mg IVPUSH Q5M PRN PRN Reason: Excessive sedation or RR < 8 Nicotine (Nicotine 14 Mg Patch.Td24) 14 mg TRANSDERMA DAILY [facility] Last Admin: 09/03/24 08:21 Dose: 14 mg Documented By: SON Ondansetron HCl (Ondansetron Hcl 4 Mg/2 Ml Vial) 4 mg IVPUSH Q8H PRN PRN Reason: Nausea and Vomiting Oxycodone HCl (Oxycodone Hcl Immed Release 5 Mg Tablet) 5 mg PO Q4H PRN PRN Reason: Pain, Moderate(Pain Scale 4-6) Last Admin: 09/04/24 01:05 Dose: 5 mg Documented By: CORAL Sodium Chloride (0.9 % Sodium Chloride Flush 3 Ml Syringe) 3 ml IVFLUSH QSHIFT [facility] Last Admin: 09/04/24 08:21 Dose: Not Given Documented By: NNEKA Non-Admin Reason: No Access Sodium Hypochlorite (Sodium Hypochlorite 0.125% 473 Ml Solution) 1 appl TOPICAL DAILY [facility] Last Admin: 09/04/24 10:42 Dose: 1 appl Documented By: NNEKA Labs 09/01/24 08:56 09/01/24 08:56 Labs: Laboratory Results - last 24 hr 09/03/24 09/03/24 09/03/24 11:41 16:16 20:05 POC Glucose 235 H 240 H 243 H 09/04/24 07:02 POC Glucose 256 H Assessment and Plan (1) Dry gangrene: Status: Acute (2) Open wound of left lower leg: Status: Acute (3) Eschar of lower leg: Status: Acute Plan 54-year-old female with a past medical history significant for peripheral arterial disease, type 2 diabetes on insulin, NSTEMI/CVA in 2021, DVT/bilateral PE on Eliquis, MRSA bacteremia polysubstance IV drug abuse, 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 intractable pain secondary to PAD vs neuropathy vs cellulitis, doesn't appear infected and blood cultures negative received vanco and zosyn intilaly which was stopped 08/20. on doxycycline. 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 vascular follow up, keeping the area clean and dry and paint with betadine as needed DM with hyperglycemia : continue Lantus 40 bid sliding scale coverage. hold metformin, continue jardiance obesity- BMI 31.2 encouraged for weight loss . Opioid use disorder:on Methadone nicotine dependence- smoking cessation discussed and encouraged nicotine patch hx DVT/PE: on eliquis. full code VTE prophy: eliquis dispo: to rehab once bed available Quality Stroke Does the patient have a stroke diagnosis?: No VTE Prior VTE?: Yes VTE Risk Level:: Medical - moderate - high VTE Device Contraindication: Treatment Not Indicated VTE Drug Contraindication: N/A - Med Ordered
[2024-09-04 11:26] LABS: Glucose, Whole Blood 205 mg/dL (60-115)
--- NOTE | 2024-09-04 12:11 | MHC.CLN ---
F/U DIET=DIABETIC 2000 [facility]. STAGE II PRESSURE INJURY TO COCCYX. PATIENT DOES NOT WANT SUPPLEMENT. INTAKE MOST MEALS 100%. FOLLOW FOR PO INTAKE AND SKIN INTEGRITY.
--- NOTE | 2024-09-04 14:38 | P.DS_ITS ---
DS: Providers Provider Date of Service: 09/11/24 <Sesar Painting MD - Last Filed: 09/03/24 14:06> 09/04/24 <Oscar Liz MD - Last Filed: 09/04/24 14:38> Date of admission: 08/17/24 19:58 <Sesar Painting MD - Last Filed: 09/03/24 14:06> Date of discharge: 09/03/24 <Sesar Painting MD - Last Filed: 09/03/24 14:06> 09/04/24 <Oscar Liz MD - Last Filed: 09/04/24 14:38> Primary care physician: Nikhil Potts MD <Sesar Painting MD - Last Filed: 09/03/24 14:06> Consults: 08/18/24 01:21 Consult to Wound Care Routine Reason for consultation: ulcerations/cellulitis to R stump and LLE. PI to coccyx 08/18/24 10:35 Consult to General Surgery Routine Consulting Provider: [facility] [place] General Surgeons Reason for consultation: back of left leg ulcer ? need for debridment 08/20/24 18:38 Consult to Vascular Surgery Routine Consulting Provider: [facility] [place] Vascular Services Reason for consultation: peripheral vascular disease Has provider been notified: No 08/27/24 10:44 Consult to Wound Care Routine Reason for consultation: cellulitis LLE, wound vac Has provider been notified: Yes 09/01/24 02:18 Consult to Wound Care Routine Reason for consultation: LLE cellulitis/Diabetic ulcers/Venous stasis ulcers <Sesar Painting MD - Last Filed: 09/03/24 14:06> DS: Diagnosis Discharge Diagnosis (1) Dry gangrene: Status: Acute <Sesar Painting MD - Last Filed: 09/03/24 14:06> (2) Open wound of left lower leg: Status: Acute <Sesar Painting MD - Last Filed: 09/03/24 14:06> (3) Eschar of lower leg: Status: Acute <Sesar Painting MD - Last Filed: 09/03/24 14:06> (4) Intractable pain: Status: Acute <Sesar Painting MD - Last Filed: 09/03/24 14:06> (5) Peripheral arterial disease: Status: Chronic <Sesar Painting MD - Last Filed: 09/03/24 14:06> (6) Hyperglycemia due to diabetes mellitus: Status: Acute <Sesar Painting MD - Last Filed: 09/03/24 14:06> (7) Infected wound: Status: Acute <Sesar Painting MD - Last Filed: 09/03/24 14:06> DS: Summary Hospital Course Hospital Course: The patient had prolonged hospital stay. for full details please return to EMR. 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 She reports that they have been worsening over the past 5 days and rates the pain at 10/10. She denies any nausea vomiting fever or chills. She denies any purulent drainage or warmth to the area. She does vape but does not smoke cigarettes and has a history of IV drug abuse but reports none in the past 20 years. She has relapsed on opiates in the past year but reports intranasal use only. Hospital course The patient was treated for: # Intractable pain secondary to PAD vs neuropathy vs cellulitis, doesn't appear infected and blood cultures negative. she received vanco and zosyn intilaly which was stopped 08/20 as she was evaluated by ID who recommended PO doxycycline. pain controlled:continue neurontin and PO dilaudid for severe pain. Can use Tylenol as needed. General surgery recommend to arrange dressing and wound care as outpatient vs SNF (she prefers to go to SNF at this time) # PAD w dry gangrene The patient was Noted to have SFA disease on the left, Evaluated by Dr Ferrell from vascular team who did surgical debridment on 08/19,had angiogram with stenting and plasty. recommended adding Aspirin to her Eliquis. Post intervention noted that all toes with dusky discoloration with likely embolization post op.The patient refused any surgical intervention (amputation ) and would like to try local measures and wound care for now. She will need a vascular follow up, for now keeping the area clean and dry and paint with betadine as needed # DM with hyperglycemia : continue Lantus 40 bid with sliding scale coverage. and restart metformin, Jardiance upon discharge. # Opioid use disorder: on Methadone as she was followed by Recovery team # Nicotine dependence- smoking cessation discussed and encouraged. To use nicotine patch. Discharge plan Continue Doxycycline as prescribed Dilaudid for pain control, can take Tylenol as well Start Aspirin Follow with Dr Ferrell at office for the dry gangrene in left foot Wound care as recommended The patient will likely need less than 30 days of SNF stay. <Sesar Painting MD - Last Filed: 09/03/24 14:06> Time Attestation Discharge Coordination Time (in mins): 48 <Sesar Painting MD - Last Filed: 09/03/24 14:06> Quality: Safe Use of Opioids Does Pt have an Active Cancer Diagnosis on the Problem List?: No <Sesar Painting MD - Last Filed: 09/03/24 14:06> Quality: Stroke Does the patient have a stroke diagnosis?: No <Sesar Painting MD - Last Filed: 09/03/24 14:06> Physical Exam Vital Signs: Vital Signs: Last Vital Signs Temp 97.4 F 09/03/24 12:00 Pulse 82 09/03/24 12:00 Resp 18 09/03/24 12:00 BP 118/58 L 09/03/24 12:00 Pulse Ox 94 09/03/24 12:00 O2 Del Method Room Air 09/03/24 12:00 O2 Flow Rate 0 08/22/24 10:37 BMI result Body Mass Index 31.2 <Sesar Painting MD - Last Filed: 09/03/24 14:06> Const: Other: General: AO X 3, no acute distress Resp: CTA bilateral CVS: S1,S2,RRR GI: +BS, NT, no distention Skin: wounds debrided and dressing in place, overall improved right leg stump wound, LLE calf wound improving and covered, toes tips dusky-black in color and cold also ischemic changes later palmar side of Lt foot. Neuro: motor grossly intact Psych: appropriate affect <Sesar Painting MD - Last Filed: 09/03/24 14:06> DS: Data Data Completed and Pending Completed studies during hospitalization [Text1]: Pending at discharge 08/19/24 17:19 Surgical [PTH] Routine Procedures Detachment at Right 1st Toe, Mid, Open Approach (09/21/21) Detachment at Right 2nd Toe, Mid, Open Approach (09/21/21) Excision of Right Foot Subcutaneous Tissue and Fascia, Open Approach (09/21/21) Excision of Right Lower Leg Skin, External Approach (04/24/23) Insertion of Endotracheal Airway into Trachea, Via Natural or Artificial Opening (03/31/24) Insertion of Infusion Device into Left External Jugular Vein, Percutaneous Approach (09/21/21) Insertion of Infusion Device into Superior Vena Cava, Percutaneous Approach (09/21/21) Introduction of Vasopressor into Peripheral Vein, Percutaneous Approach (03/31/24) Respiratory Ventilation, 24-96 Consecutive Hours (03/31/24) <Sesar Painting MD - Last Filed: 09/03/24 14:06> Labs on day of discharge: Laboratory Results - last 24 hr 09/02/24 09/02/24 09/03/24 16:01 19:24 07:04 POC Glucose 252 H 205 H 239 H 09/03/24 11:41 POC Glucose 235 H <Sesar Painting MD - Last Filed: 09/03/24 14:06> Imaging Chest x-ray: Radiologist's impression: ITS Impressions Duplex Scan Lower Extremity Artery 08/21/24 15:37 IMPRESSION: Severe inflow disease throughout the vessels left lower extremity. Electronically signed by: Joshua Hi MD 08/22/2024 08:08 AM EST <Sesar Painting MD - Last Filed: 09/03/24 14:06> Discharge Plan Discharge Anticipated Discharge Date/Time: 09/03/24 13:31 <Sesar Painting MD - Last Filed: 09/03/24 14:06> Patient Disposition: Xfer SNF <Sesar Painting MD - Last Filed: 09/03/24 14:06> Discharge Diagnosis: cellulitis with open wound Dry Gangrene Hyperglycemia <Sesar Painting MD - Last Filed: 09/03/24 14:06> cellulitis with open wound Dry Gangrene Hyperglycemia <Oscar Liz MD - Last Filed: 09/04/24 14:38> [facility]Other] - 1 Week Nikhil Gagnon MD [Primary Care Provider] - 1 Week <Sesar Painting MD - Last Filed: 09/03/24 14:06> Discharge Medications: New nicotine 14 mg/24 hr Patch 24 Hour 14 mg transdermal DAILY Qty: 30 0RF doxycycline monohydrate 100 mg Capsule 100 mg PO Q12H Qty: 14 0RF aspirin 81 mg Tablet,Chewable 81 mg PO DAILY Qty: 90 0RF Santyl 250 unit/gram Ointment 1 appl topical DAILY Qty: 30 1RF Protocol: Apply to: Apply to: lower extremities Dakin's Solution 0.125 % Solution 1 appl topical DAILY Qty: 473 0RF famotidine 20 mg tablet 20 mg PO DAILY Qty: 90 0RF alprazolam 0.5 mg Tablet 0.5 mg PO BEDTIME PRN (Reason: Anxiety) Qty: 30 0RF hydromorphone 2 mg tablet 2 mg PO Q6H PRN (Reason: pain) Qty: 30 0RF Rx Instructions: Partial Fill upon patient request. Continued (DME) [facility] [place] See Rx Instructions .Route Qty: 1 0RF Rx Instructions: As directed Eliquis 5 mg tablet 5 mg PO BID 30 Days Qty: 60 0RF insulin lispro 100 unit/mL insulin pen 1 sliding scale dose subcut TIDAC Jardiance 25 mg tablet 25 mg PO DAILY insulin glargine [Lantus Solostar U-100 Insulin] 100 unit/mL (3 mL) insulin pen 40 unit subcut BID baclofen 10 mg tablet 10 mg PO TID atorvastatin 80 mg tablet 80 mg PO DAILY duloxetine 30 mg capsule,delayed release(DR/EC) 30 mg PO DAILY methadone [Methadone Intensol] 10 mg/mL Concentrate 140 mg PO DAILY losartan 25 mg tablet 25 mg PO DAILY Trulicity 0.75 mg/0.5 mL pen injector 0.75 mg subcut MO@0900 alprazolam 0.5 mg tablet 0.5 mg PO BEDTIME PRN (Reason: Anxiety) Qty: 10 0RF Changed gabapentin 600 mg tablet 300 mg PO QID Qty: 120 0RF <Sesar Painting MD - Last Filed: 09/03/24 14:06> Diet: Diabetic diet <Sesar Painting MD - Last Filed: 09/03/24 14:06> Diabetic diet <Oscar Liz MD - Last Filed: 09/04/24 14:38> Activity on Discharge: As tolerated <Sesar Painting MD - Last Filed: 09/03/24 14:06> As tolerated <Oscar Liz MD - Last Filed: 09/04/24 14:38> Stand Alone Forms: Patient Portal Discharge page <Sesar Painting MD - Last Filed: 09/03/24 14:06> Print Language: Armenian <Sesar Painting MD - Last Filed: 09/03/24 14:06> Activity Restrictions/Additional Instructions: Wound care 1. Turn and Reposition every 2 hours and as needed for patient comfort.? Use pillows or wedges to support off loading positions. 2. Off Load all bony prominences with use of pillows and heel boots if needed.? Apply Preventative foams where needed. ? 3. Monitor for incontinence and moisture control, use barrier creams when needed for prevention and treatment. 4. Provide adequate and supplemental nutrition.? 5. Order low air loss mattress. 6. When applicable maintain blood glucose levels per Providers order. 7. Right Residual Leg - [place] with Betadine, cover scabs with durafiber AG cover with dry gauze, abd pad. Change every other day. 8. Coccyx - Off Load Pressure with Q2hr turns and pillows. Cleanse with PH balance spray or wipes, pat dry. ?Apply thin layer of Triad to wound bed. Do not remove all of paste between applications as this may cause further skin damage.? Cover with foam dressing to aid in off loading and protection from friction. Change every 5 days and PRN. 9. Lower Leg - Cleanse and irrigate with NS, pat dry. Apply saline moist gauze to wound beds, cover with dry gauze, ABD pads and wrap. Change Daily. 10. Left Heel - Cleanse and irrigate with NS, pat dry. Apply barrier to the immediate nimisha wound, apply thick layer of Santyl to entire wound bed, cover with saline moist gauze, secure foam dressing, change Daily. 11. allow the patient to have the left dressings soaked for about a 25 minute. And allow her to peel off the dressings gently then do Dakin's wet-to-dry dressings with 4 x 4 Kerlix gauze covered with ABD pads and loosely wrapped with Kerlix roll. Change twice a day <Sesar Painting MD - Last Filed: 09/03/24 14:06> Care Plan Goals: Decrease Gabapentin as prescribed Continue Doxycycline as prescribed Dilaudid for pain control, can take Tylenol as well Start Aspirin Follow with Dr Ferrell at office for the dry gangrene in left foot Wound care as recommended <Sesar Painting MD - Last Filed: 09/03/24 14:06> Health Concerns: LEft leg wound Left foot dry gangrene <Sesar Painting MD - Last Filed: 09/03/24 14:06> Plan of Treatment: Antibiotics Dressing Vascular surgery follow up <Sesar Painting MD - Last Filed: 09/03/24 14:06> Assessment: as above <Sesar Painting MD - Last Filed: 09/03/24 14:06>
[2024-09-04 15:52] VITALS: BP 134/60; PULSE 84; RESP 16; TEMP 36; O2SAT 99
--- NOTE | 2024-09-04 15:53 | HO.WOUND ---
Wound Consult: Follow up 54yr old?female [place] [facility] [place] - See progress notes and H&P for detailed history.? Wound consult follow up for Bilateral Lower legs and Coccyx.? Patient agreeable to assessment and photo documentation.? Coccyx resolved no pressure injury noted at this time. Previous assessment Right Residual Leg - Resurfacing / healing Diabetic wounds - small dried scabbed wound beds - no drainage observed - No topical recommendations needed at this time. Left Heel 08/20/24 Left Heel 08/21/24 08/30/24 Left Heel - 09/04/24 - Left Heel continues with black necvrotic tissue however wound bed is improving. Patient reports she has not refused dressing changes since our discussion last week. Recommend continue with Santyl for enzymatic debridement. Diabetic wound - necrotic tissue adherent to wound bed - Continue to follow with Vascular surgery - of note several toes are cold and black - providers aware. Left Lateral Posterior Leg 08/20/24 08/30/24 Left Lateral Lower Leg 09/04/24 Left Medial Lower Leg 09/04/24 Improved wound bed - red biable tissue with small amount of yellow slough and necrotic tissue remains. Recommend continue with Dakins for a few more days and then consider switching to Durafiber AG and change every 2-3 days. suspect mixed vascular wounds - s/p debridement by Dr. Muhammad 08/19/24 - The leg remains cool to touch various areas of purpura, shiney skin, hairloss to legs, brittle toenails, necrotic wound beds and extreme pain. Black necrotic toes noted - providers aware. Plan for future dressing changes: Patient will in the morning talk with her direct care nurse to agree on a time of dressing, time or premedication and dressing saturation with Normal saline for less traumatic removal. Recommendations: 1. Turn and Reposition every 2 hours and as needed for patient comfort.? Use pillows or wedges to support off loading positions. 2. Off Load all bony prominences with use of pillows and heel boots if needed.? Apply Preventative foams where needed. ? 3. Monitor for incontinence and moisture control, use barrier creams when needed for prevention and treatment. 4. Provide adequate and supplemental nutrition.? 5. Order low air loss mattress. 6. When applicable maintain blood glucose levels per Providers order. 7. Lower Leg - Cleanse and irrigate with NS, pat dry. Apply Dakins moist gauze to wound beds, cover with dry gauze, ABD pads and wrap. Change Daily. 8. Left Heel - Cleanse and irrigate with NS, pat dry. Apply barrier to the immediate nimisha wound, apply thick layer of Santyl to entire wound bed, cover with saline moist gauze, secure foam dressing, change Daily. Re-consult wound care Nurse for wound deterioration or wound changes. Wound Consult: Follow up
[2024-09-04 16:06] LABS: Glucose, Whole Blood 122 mg/dL (60-115)
--- NOTE | 2024-09-04 17:47 | PC.NURSE ---
Pt nervous about dressing changes and discharge plan. Premedicated with po Dilaudid for dressing change. Dressing changes done by wound care nurse. See wound care notes.
[2024-09-04 18:40] VITALS: BP 148/71; PULSE 88; RESP 16; TEMP 36.8; O2SAT 98
== END 2024-09-04 18:48 | disposition skilled nursing facility (03) | DRG 182 ==
LOC: HO.ED 20:16 → HO.EDOVER 20:25 → HO.S3 08-18 00:06
PROVIDERS: Anesthesiology; Family Medicine; Internal Medicine; Student in an Organized Health Care Education/Training Program; Surgery; Surgery Vascular Surgery; Admitting Provider Internal Medicine; Emergency Provider Internal Medicine; PCP Internal Medicine; Visit Provider Family Medicine
PROC: 0JBR0ZZ Excision of Left Foot Subcutaneous Tissue and Fascia, Open Approach (ICD-10-PCS; principal; 2024-08-19 15:30)
PROC: 047L3D1 Dilation of Left Femoral Artery with Intraluminal Device, using Drug-Coated Balloon, Percutaneous Approach (ICD-10-PCS; principal; 2024-08-22 08:00)
DX: E11.51 Type 2 diabetes mellitus with diabetic peripheral angiopathy without gangrene (principal); L89.150 Pressure ulcer of sacral region, unstageable; E11.649 Type 2 diabetes mellitus with hypoglycemia without coma; E11.40 Type 2 diabetes mellitus with diabetic neuropathy, unspecified; E11.628 Type 2 diabetes mellitus with other skin complications; L97.421 Non-pressure chronic ulcer of left heel and midfoot limited to breakdown of skin; F11.20 Opioid dependence, uncomplicated; E11.65 Type 2 diabetes mellitus with hyperglycemia; L97.829 Non-pressure chronic ulcer of other part of left lower leg with unspecified severity; I70.248 Atherosclerosis of native arteries of left leg with ulceration of other part of lower leg; I70.244 Atherosclerosis of native arteries of left leg with ulceration of heel and midfoot; F19.10 Other psychoactive substance abuse, uncomplicated; F17.210 Nicotine dependence, cigarettes, uncomplicated; Z71.3 Dietary counseling and surveillance; E66.9 Obesity, unspecified; Z68.31 Body mass index [BMI] 31.0-31.9, adult; Z71.6 Tobacco abuse counseling; Z86.718 Personal history of other venous thrombosis and embolism; Z89.511 Acquired absence of right leg below knee; Z86.14 Personal history of Methicillin resistant Staphylococcus aureus infection; Z86.711 Personal history of pulmonary embolism; Z79.4 Long term (current) use of insulin; Z79.01 Long term (current) use of anticoagulants; Z79.82 Long term (current) use of aspirin; Z79.899 Other long term (current) drug therapy
CPT/HCPCS: 36415; 37226; 76937; 80048; 80053; 80202; 82565; 82947; 83605; 83735; 84132; 84484; 85025; 85027; 85347; 87040; 88304; 93005; 93926; 97162; 97166; 97530; 99152; 99153; 99285; C1725; C1760; C1769; C1876; C1887; C2623; J0131; J1171; J1644; J2003; J2250; J2270; J2543; J2704; J3010; J3370; J3371; J3475

== ENCOUNTER 2024-08-17 19:58 | Outpatient (BNV) | payer MEDICAID, SELFPAY | END 2024-08-19 15:42 | PROVIDERS: Admitting Provider Internal Medicine; Emergency Provider Internal Medicine; PCP Internal Medicine; Visit Provider Internal Medicine Cardiovascular Disease | DX: R94.31 Abnormal electrocardiogram [ECG] [EKG] (principal) | CPT/HCPCS: 93010 ==

== ENCOUNTER → 2024-08-17 19:58 | Outpatient (BNV) | payer MEDICAID, SELFPAY | PROVIDERS: Admitting Provider Internal Medicine; Emergency Provider Internal Medicine; PCP Internal Medicine; Visit Provider Surgery | DX: R23.4 Changes in skin texture (principal) | CPT/HCPCS: 11042; 11045; 99222; 99232; 99499 ==

== ENCOUNTER → 2024-08-17 19:58 | Outpatient (BNV) | payer MEDICAID, SELFPAY | PROVIDERS: Admitting Provider Internal Medicine; Emergency Provider Internal Medicine; PCP Internal Medicine; Visit Provider Physician Assistant Surgical | DX: L03.116 Cellulitis of left lower limb (principal) | CPT/HCPCS: 99222 ==

== ENCOUNTER → 2024-08-17 19:58 | Outpatient (BNV) | payer MEDICAID, SELFPAY | PROVIDERS: Admitting Provider Internal Medicine; Emergency Provider Internal Medicine; PCP Internal Medicine; Visit Provider Internal Medicine | DX: I73.9 Peripheral vascular disease, unspecified (principal); T87.89 Other complications of amputation stump; L03.119 Cellulitis of unspecified part of limb; E11.65 Type 2 diabetes mellitus with hyperglycemia; I82.409 Acute embolism and thrombosis of unspecified deep veins of unspecified lower extremity; E66.811 Obesity, class 1 | CPT/HCPCS: 99223; 99233 ==

== ENCOUNTER 2024-10-08 14:49 | Outpatient (AMB) | payer MEDICAID, SELFPAY ==
--- NOTE | 2024-10-08 14:51 | A.OFFVIS_ITS ---
Intake Visit Reasons: overdue follow up s/p L leg angio 08/22/24 Intake Note: follow up Left LE Angio 08/22/24 w/ non-healing ulcer, [facility] is [facility]. Pt states dressing changed daily at rehab. Pt states cellulitis on the Right BKA stump. States on oral Abx. Pt states that Left LE wound has calcium alginate. States the wounds are healing. Accompanied by: Self / Same As Patient Allergies prednisone [PREDNISONE] Allergy (Intermediate, Verified 10/08/24 15:03) RASH HPI HPI overdue follow up s/p L leg angio 08/22/24: Details: The patient is a 54-year-old female presenting for follow-up after prior left superficial femoral artery (SFA) angioplasty and stent placement performed on 08/22/2024. The recent history includes advanced peripheral artery disease with associated lower limb ischemia resulting in significant discoloration and numbness which had persisted for several years prior to intervention. Post- procedurally, there has been a pronounced recovery in limb perfusion as indicated by the return of sensation and normalization of skin coloration. The patient reports newly perceived heel pain correlating with satisfactory perfusio n. Currently residing in a rehabilitation facility, the patient's right below knee amputation stump demonstrated redness likely secondary to cellulitis, initially leading to a temporary cessation of antibiotic therapy. The reactive treatment plan reinstated antibiotic use, reflecting ongoing management of cellulitic processes. In conjunction, local care and debridement have facilitated marked progress in the closure of a persistent wound on the left heel which previously received inadequate vascular support. She now presents for vascular follow-up [facility] Medical History (Updated 10/11/24 @ 10:50 by Vasu Ferrell MD) Peripheral arterial disease Hyperglycemia due to diabetes mellitus DVT (deep venous thrombosis) Open wound of left lower leg Eschar of lower leg Obesity (BMI 30.0-34.9) Hyperglycemia due to type 2 diabetes mellitus 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 Diabetic ulcer of lower leg Pulmonary nodules Chronic respiratory failure Pneumonitis Obesity (BMI 35.0-39.9 without comorbidity) Acute respiratory failure with hypoxia NSTEMI (non-ST elevated myocardial infarction) Opioid use disorder Osteomyelitis Diabetes Anxiety Substance abuse Surgical History Hx of right BKA S/P amputation of foot Status post transmetatarsal amputation of right foot (09/24/21) Social History Household Members: Other Household Members Other:: friend Housing: Apartment Are you a primary home care companion to a significant other at home: No Do you presently have visiting nurse or other home services: No Unable to assess alcohol history related to: Unable to respond Alcohol intake: never Comment: took socks off Patient Tobacco Use Status: Former Tobacco user Tobacco use type: Cigarette Cigarette Packs Per Day: 0 Cigarettes Per Day: 1 Years Smoked: 40 e-Cigarette/Vaping Use: Currently Using Second Hand Smoke Exposure: No Substance Use Type: Marijuana Advance Directives Date on File: 01/29/20 service: No Current occupational status: unemployed Review of Systems Const All systems reviewed & are unremarkable except as noted in HPI and below Reports no additional complaints ENT Reports Normal hearing present Card Denies chest pain, Denies chest pain at rest, Denies chest pain with activity and Denies pedal edema Resp Denies cough GI Denies abdominal pain Musc Denies abnormal gait, Denies muscle cramps and Denies radiating pain into limb Skin/Breast Denies skin ulcer and Denies wounds Neuro Reports Normal hearing present and Denies abnormal gait Psych Reports no additional complaints Physical Exam Const General: cooperative, healthy appearing and comfortable Orientation/consciousness: oriented to person, oriented to place and oriented to time HEENT Head: Yes normal to inspection Neck Neck: Yes normal visual inspection Carotids: no bruits Chest Chest palpation & inspection: normal inspection of the chest Resp Effort & Inspection: normal respiratory effort and able to speak in complete sentences Auscultation: clear to auscultation bilaterally, no crackles, no rales, no rhonchi and no wheezes Cardio Rate: regular rate Rhythm: regular rhythm Heart sounds: S1 normal heart sound present and S2 normal heart sound present Bruits: no carotid bruits GI Inspection: Yes normal to inspection Skin Wounds: no wounds Hair: normal Neuro General: oriented to person, oriented to place and oriented to time Cranial nerves: Yes CN's II-XII intact bilaterally and Yes Normal hearing present Cognition (Neuro): normal cognition Motor exam (neuro): 5/5 motor strength present throughout Extrem Other: Right stump with cellulitis, left leg with dressing patient refused to remove General: No clubbing, No cyanosis and No edema Psych Appearance: grossly normal Mental Status: mental status grossly normal Speech and movement: Normal speech and movement present Assessment & Plan Assessment & Plan (1) Peripheral arterial disease: Comment: 08/22/2024- left SFA plasty and stent Code(s): I73.9 - Peripheral vascular disease, unspecified Category: Medical Plan: During our consultation, I provided confirmation of the positive outcomes attributed to the left SFA angioplasty and stent placement, acknowledging the roles these interventions play in enhancing peripheral perfusion. I discussed the necessity of performing an ultrasound to assess for any potential complications at the stent site and outlined further follow-up steps contingent on results. She will continue local wound care at her facility. I have taken the liberty of ordering follow-up surveillance ultrasound of the left lower extremity. Thank you for allowing us to assist in her care. Plan Patient was informed and verbally consented to the use of an ambient scribe for clinic note documentation during this visit. Orders: Orders US arterial duplex LE LT 1 Month I73.9 - Peripheral vascular disease, unspecified Patient Instructions: - Continue with current wound care regimen as advised at the rehabilitation facility. - Remain compliant with prescribed antibiotic therapy until treatment completion. - Arrange for the ultrasound appointment through the rehabilitation center once authorization is received. - Follow up with our clinic after completion of the ultrasound to review findings and discuss any additional care needed. - Monitor wound sites regularly and report any signs of increased redness, swelling, or fever to medical staff promptly. Coding Level of Care Code Est Pt Level 4 (53869) Diagnoses Peripheral arterial disease I73.9
--- OUTSIDE RECORDS SUMMARY | 2024-10-08 18:45 | XMS_ITS | Encounter Summary ---
Author Organization [employer] Address [address] [place] [address] Care Team Providers Care Pump Room Operator Name Role Phone Nikhil Gagnon MD Primary Care Prov ider Reason for Visit * Reason Onset Date Comments Wound Care Suplies 07/02/2024 Encounter Details Date Type Department Care Team (Late st Contact Info) Description 07/02/2024 Telephone [facility] [address] [place] [address] Nikhil Gagnon MD [address] [place] [phone] Wound Care Suplies Social History Tobacco Use Types Packs/Day Years Used Date Smoking Tobacco: Every Day Cigarettes 1 30 Smokeless Tobacco: Never Alcohol Use Standard Drinks/Week Comments Never 0 (1 standard drink = 0.6 oz pur e alcohol) Depression Answer Date Recorded Patient Health Questionnaire-9 Score 2 01/19/2023 Housing Stability Answer Date Recorded What is your housing situation today? I have ed salmeron 05/23/[address] you li ve. Do you have problems with any of the following? None of the above 05/23/2023 Food Insecurity Answer Date Recorded Within the past 12 months, y ou worried that your food would run out before you got money to buy more: Never True 05/23/2023 Within the past 12 months,th e food you bought just didn't last and you didn't have enough money to get more: Never True Transportation Answer Date Recorded In the past 12 months, has l ack of transportation kept you from medical appts, meetings, work or from getting things needed for daily living? No 05/23/2023 Utilities Answer Date Recorded In the past 12 months, has t he electric, gas, oil or water company threatened to shut off services in your home? No 05/23/2023 Depression Answer Date Recorded Patient Health Questionnaire-2 Score 2 01/19/2023 Comments Unknown Sex and Gender Information Value Date Recorded Sex Assigned at Female 06/06/2022 10:36 AM EDT Legal Sex Female 10:36 AM EDT Gender Identity Transgender Female 06/06/2022 10 :36 AM EDT Sexual Orientation Straight 06/06/2022 10 :36 AM EDT documented as of this encounter Miscellaneous Notes * Telephone Encounter - Argelia Bai LPN - 07/02/2024 3:40 PM EST Please review message below and advise, I did see in last note stated of pt having Cellulitis but no need for supplies . Soumya is requesting supplies for dressing prior to wound care appointment. Soumya requesting normal saline, bacitracin and non stick pad applied and rolled gauze for leg cellulitis. Patient needs to make wound care appointment and will be calling ID. * Telephone Encounter - Analia Barillas RN - 07/02/2024 1:50 PM EST Soumya is requesting supplies for dressing prior to wound care appointment. Soumya requesting normal saline, bacitracin and non stick pad applied and rolled gauze for leg cellulitis. Patient needs to make wound care appointment and will be calling ID. * Telephone Encounter - Wayne Valdez - 07/02/2024 1:39 PM EST Jose Martin Dooley the Pt Broker In Charge with [facility] requesting Wound care supplies for pt. Soumya states she has Cellulitis on her bottom of her left leg. IF any questions contact Soumya at [phone] documented in this encounter Plan of Treatment Not on file documented as of this encounter Visit Diagnoses Not on filedocumented in this encounter Additional Health Concerns Assessment Noted Time PHQ-9 Depression Total Score: 2 01/20/20 23 8:54 AM EDT documented as of this encounter Care Teams Pump Room Operator Relationship Specialty Start Date End Date Nikhil Gagnon MD [address] [place] [id number] PCP - General Internal Medicine 12/27/19 ASSIGNED EMPLOYEE (NONE) Electric Power Line ExaminerChief Learning Officer 04/26/24 documented as of this encounter
--- OUTSIDE RECORDS SUMMARY | 2024-10-08 18:45 | XMS_ITS | Encounter Summary ---
Author Organization [employer] Address [address] [facility] [address] [place] [address] Care Team Providers Care Solution Design And Analysis Manager Name Role Phone Nikhil Gagnon MD Primary Care Prov ider Reason for Visit * Reason Onset Date Comments PT-1 12/28/2023 Encounter Details Date Type Department Care Team (Late st Contact Info) Description 12/28/2023 Telephone [facility] [address] [place] [address] Nikhil Gagnon MD [address] [place] [address] PT-1 Social History Tobacco Use Types Packs/Day Years [...] encounter Miscellaneous Notes * Telephone Encounter - Namrata Kelley - 12/29/2023 12:41 PM EDT PT-1 submitted for patient. They will receive a letter of approval or denial in the mail. * Telephone Encounter - Chepe Medley - 12/28/2023 3:57 PM EDT Patient calling requesting PT1 Home Address verified: Y/N: Yes Provider name or facility name: [facility] Facility Address: [address] [place] [address] needed: Y/N: No Do you have a wheelchair: Y/N: Yes If yes- Manual or electric: Manual Visits: 6 weekly documented in this encounter Plan of Treatment Not on file documented as of this encounter Visit Diagnoses Not on filedocumented in this encounter Additional Health Concerns Assessment Noted Time PHQ-9 Depression Total Score: 2 01/20/20 8:54 AM EDT documented as of this encounter Care Teams Solution Design And Analysis Manager Relationship Specialty Start Date End Date Nikhil Gagnon MD [address] [place] [id number] PCP - General Internal Medicine 12/27/19 ASSIGNED EMPLOYEE (NONE) Director Digital AdvertisingManager Construction 04/26/24 documented as of this encounter
--- OUTSIDE RECORDS SUMMARY | 2024-10-08 18:45 | XMS_ITS | Clinical Summary ---
Author Organization [facility] Address [address] [place] [address] Care Team Providers Care Multimedia Educational Specialist Name Role Phone Nikhil Gagnon MD Primary Care Prov ider Allergies Active Allergy Reactions Criticality Noted Date Comments Prednisone 12/27/2019 Medications methadone (Dolophine) 10 MG/ML solution Take 1 mL by mouth every 8 (eight) hours. 135 mg Active naloxone (Narcan) 4 mg/0.1 mL nasal spray Administer 0.1 mL into affected nostril(s). Harrod 0.1 milliliter by intranasal route in 1 nostril may repeat dose every 2-3 minutes as needed alternating nostrils with each dose 11/20/19 22 Active furosemide (Lasix) 20 MG tabletIndications: Primary hypertension Take 1 tablet (20 mg) by mouth in the morning. Take 1 tablet by mouth 1 (one) time each day. 30 tablet 3 07/28/20 22 Active sertraline (Zoloft) 100 MG tabletIndications: Recurrent major depressive disorder, in partial remission (CMS/HCC) Take 1 tablet (100 mg) by mouth in the morning. Take 1 tablet by mouth 1 (one) time each day. 30 tablet 11 07/28/20 22 Active Icosapent Ethyl (Vascepa) 1 g capsuleIndications :Mixed hyperlipidemia Take 2 capsules (2 g) by mouth with breakfast and with evening meal. 120 capsule 11 11/26/19 23 Active Acetaminophen Extra Strength 500 MG tabletIndications: Neuropathic pain TAKE 2 TABLETS BY MOUTH EVERY 4 TO 6 HOURS NEEDED. DO NOT EXCEED 8 TABLETS IN 24 HOURS 90 tablet 3 05/19/20 23 Active glucose blood (FREESTYLE LITE) test strip 1 each by Other route every 8 (eight) hours. Place 1 cartridge by subcutaneous route 3 times every day 100 each 06/13/20 23 Active BD Pen Needle Myrna 2nd Gen 32G X 4 MM miscIndications:Ty pe 2 diabetes mellitus with diabetic peripheral angiopathy and gangrene, with long-term current use of insulin (CMS/[facility]) USE TO INJECT INSULIN 100 each 3 01/05/20 24 Active dulaglutide (Trulicity) 0.75 MG/0.5ML solution pen-injector Inject 0.75 mg under the skin 1 (one) time per week. 4 each 01/11/20 24 Active apixaban (Eliquis) 5 MG tabletIndications: Chronic deep vein thrombosis (DVT) of other vein of lower extremity, unspecified laterality (CMS/HCC) TAKE 1 TABLET BY MOUTH TWICE DAILY 180 tablet 3 01/15/20 24 Active metFORMIN (Glucophage) 500 MG tabletIndications: Type 2 diabetes mellitus with diabetic peripheral angiopathy and gangrene, with long-term current use of insulin (CMS/HCC) Take 2 tablets (1,000 mg) by mouth with breakfast and with evening meal. 180 tablet 1 01/19/20 24 Active Alcohol Swabs (Alcohol Prep) 70 % padsIndications:Ty pe 2 diabetes mellitus with diabetic peripheral angiopathy and gangrene, with long-term current use of insulin (CMS/HCC) Use three times daily as needed to clean skin 100 each 01/19/20 24 Active DULoxetine (Cymbalta) [address] capsule Take 1 capsule (30 mg) by mouth Once per day. Do not crush or chew. 30 capsule 02/12/20 24 025 Active Insulin Lispro 100 UNIT/ML solution Inject 6 Units as directed 3 times daily. inject three times daily per SS: 150-199 = 2 units, 200-249= 4 units, 250-299= 6 units, 300-349 = 8 units, 350-399= 10 units 6 mL 3 03/15/20 24 Active atorvastatin (Lipitor) 80 MG tabletIndications: Mixed hyperlipidemia Take 1 tablet (80 mg) by mouth Once per day. 90 tablet 3 03/15/20 24 08/09/2 025 Active Blood Glucose Monitoring Suppl (FreeStyle Lite) device Inject 1 each under the skin 3 times daily. 1 each 03/15/20 24 025 Active insulin glargine (Lantus) 100 UNIT/ML injection Inject 40 Units under the skin 2 times daily. 24 mL 11 04/11/20 24 025 Active empagliflozin (Jardiance) 25 MGIndications:Type 2 diabetes mellitus with diabetic peripheral angiopathy and gangrene, with long-term current use of insulin ([facility]) TAKE 1 TABLET BY MOUTH EVERY DAY 90 tablet 1 06/17/20 24 Active losartan (Cozaar) 25 MG tablet Take 1 tablet (25 mg) by mouth Once per day. 30 tablet 11 06/19/20 24 025 Active Dulaglutide (Trulicity) 0.75 MG/0.5ML solution auto-injector Inject 0.5 mL (0.75 mg) under the skin 1 (one) time per week. 2 mL 11 06/19/20 24 025 Active gabapentin (Neurontin) 600 MG tablet TAKE 1 TABLET BY MOUTH FOUR TIMES A DAY 120 tablet 3 07/12/20 24 Active ALPRAZolam (Xanax) 0.5 MG tabletIndications: Anxiety TAKE 1 TABLET(0.5 MG) BY MOUTH AT BEDTIME NEEDED FOR ANXIETY 30 tablet 07/17/20 24 Active baclofen (Lioresal) 10 MG tabletIndications: Neuropathic pain TAKE 1 TABLET(10 MG) BY MOUTH THREE TIMES DAILY 90 tablet 08/13/19 25 Active Active Problems Problem Noted Date Diagnosed Date Screening for colon cancer 06/19/2024 Assessment & Plan (06/19/2024 6:22 PM EST): Will send cologuard Screening for lung cancer 06/19/2024 Assessment & Plan (06/19/2024 6:23 PM EST): Refused, risk discussed Left leg cellulitis 04/10/2024 Assessment & Plan (06/19/2024 6:19 PM EST): Will send doxy/amoxicillin, no reported fever/chills, will refer to wound care clinic Assessment & Plan (04/10/2024 9:43 PM EDT): Will start on doxycycline, she has recurrent cellulitis, will refer to ID and vascular surgery for evaluation, no reported fever/chills, er precautions reviewed Vaginal viki 04/10/2024 Assessment & Plan (04/10/2024 9:43 PM EDT): Due to prolongued antibiotics she has been developing viki infections, will prescribe fluconazole S/P BKA (below knee amputation) unilateral 01/07 Overview (01/21/2024): Right BKA 08/12/23 by vascular surgery, with revision on 08/14/23 by surgery ([facility]). Indication: right diabetic foot, gangrene History of transmetatarsal amputation of foot Assessment & Plan (06/13/2023 5:39 PM EST): Patient with hx of tma, multiple bilateral lower extremity ulcers, she has been using a wheelchair but it is bad condition, will order rx for new wheelchair. Peripheral arterial disease 05/09/2023 MRSA bacteremia 05/09/2023 Bilateral pulmonary embolism 05/09/2023 Assessment & Plan (01/21/2024 8:01 PM EDT): - continues on Eliquis 5mg BID Cellulitis of right lower extremity 01/19/2023 Assessment & Plan (08/03/2023 6:31 PM EST): Resolved, continue wound care, watch for sign of reinfection Assessment & Plan (06/13/2023 5:37 PM EST): Will start on doxycycline and Augmentin, she has a callus on her right foot with discharge, has appointment tomorrow at wound clinics, in Case of worsening as reviewed during visit told to visit ER. Assessment & Plan (01/19/2023 11:37 AM EDT): No discharge, erythema 4x4 in size, no reported fevr/chills, will start on doxycycline x 10 days, in case of worsening or new symptoms visit er. Screening breast examination 12/04/2022 Assessment & Plan (12/04/2022 10:05 PM EDT): Will order breast mammogram Screening for cervical cancer 12/04/2022 Assessment & Plan (06/19/2024 6:21 PM EST): Refused risk were discussed Assessment & Plan (12/04/2022 10:06 PM EDT): Patient refused undergoing a pap smear, risk were discussed Screening mammogram for high-risk patient 2022 Assessment & Plan (12/04/2022 10:07 PM EDT): Will order cologuard, risk vs benefits were discussed COVID 09/22/2022 Assessment & Plan (09/22/2022 8:52 AM EST): Patient refers symptoms started 2 days ago, complains of headaches, congestion, bodyaches, no shortness of breath reported. Paxlovid offered risk vs benefits discussed, told to hold atorvastatin, and will decrease apixaban dose during the next 5 days. In case of worsening symptoms visit ER. Sinus congestion 09/22/2022 Smoker 09/22/2022 HTN (hypertension) 09/09/2022 Assessment & Plan (06/19/2024 6:15 PM EST): Will restart losartan, told to keep bp log, keep low sodium diet, follow up in 1 month Assessment & Plan (08/03/2023 6:28 PM EST): Not at target, she refers did not took the medication this morning, currently asymptomatic, told she should be taking lisinopril daily, watch low sodium diet, keep bp log and bring it on next appointment Assessment & Plan (01/19/2023 11:22 AM EDT): Controlled on lisinopril, no changes will be made, reinforced low sodium diet. Assessment & Plan (12/04/2022 10:05 PM EDT): Refers today was 110/80, asymptomatic, reinforced low sodium diet and exercise, new labs will be ordered Assessment & Plan (09/09/2022 9:26 AM EST): Patient has not picked up bp monitor sent to [facility], she was discharged with lisinopril and amlodipine was discharged on lisinopril and amlodipine was discontinued, reinforced low sodium diet and exercise as tolerated and follow up in office. 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 eliquis lifelong, continue eliquis 5mg BID NSTEMI (non-ST elevated myocardial infarction) 0 09/09/2022 Assessment & Plan (06/19/2024 6:16 PM EST): Hx of nstemi, she never visited hospital receptionist, will send new referral Assessment & Plan (01/19/2023 11:25 AM EDT): Patient denied further episode of chest pain, she has a appointment next month with her hospital receptionist Assessment & Plan (09/09/2022 9:27 AM EST): Most likely due to mismatch, no chest pain since discharge, will refer to cardiology Anxiety 09/09/2022 Assessment & Plan (09/09/2022 9:35 AM EST): Patient followed by a therapist, pending psychiatrist follow up, in the meantime I will provide her alprazolam 0.5mg daily, reviewed risk with patient. Hypodense mass of left lobe of liver 09/09/2022 Assessment & Plan (09/09/2022 9:28 AM EST): Will order MRI for better evaluation Oxygen dependent 09/09/2022 Assessment & Plan (09/09/2022 9:36 AM EST): Patient discharged with 1l oxygen supplement after being diagnosed with massive PE, will refer to pulmonology for evaluation Type 2 diabetes mellitus wit h diabetic peripheral angiopathy and gangrene, with long-term current use of insulin 08/09/2022 Assessment & Plan (06/19/2024 6:18 PM EST): Will restart Trulicity, continue basal/short acting insulin and jardiance, keep low carb/no sugar diet, keep glucose log, follow up in 1 month Assessment & Plan (08/03/2023 6:30 PM EST): Noot at target, she is not adhering to diet reccomendations, she should be on lantus 35 units bid, jardiance and metformin, keep dxt log, will follow up in 1 month Assessment & Plan (06/13/2023 5:38 PM EST): Not controlled, will increase lantus to 35 units bid, and will start on insulin sliding scale, will place DM educator referral, continue with jardiance and metformin. Will increase gabapentin to 600mg 4 times a day and will add duloxetine. Assessment & Plan (01/19/2023 11:21 AM EDT): Improving but not at target, will add trulicity, continue metformin, jardiance, lantus. Will follow up in 1 month Assessment & Plan (12/04/2022 10:03 PM EDT): Patient refers today was 110, she has been compliant with medical treatment as she refers, reinforced low carb/no sugar diet, told her next visit has to be on clinic Assessment & Plan (09/09/2022 9:24 AM EST): Not controlled, patient on lantus 20 am and 35 pm, metformin 500mg bid and jardiance 10mg which she has not started taking it, risk of inadequate DM control discussed, will follow up in office in October, watch for glucose <70 and call the office for adjustment of meds. Assessment & Plan (09/06/2022 12:52 PM EST): Not at target, she restarted recently using insulin, will add empagliflozin for renal protection. Mixed hyperlipidemia 08/09/2022 Assessment & Plan (06/19/2024 6:19 PM EST): On atorvastatin 80mg, new labs will be ordered Assessment & Plan (01/19/2023 11:23 AM EDT): Will increase atorvastatin to 80mg, follow up in 2 months Assessment & Plan (09/09/2022 9:34 AM EST): Patient told to restart atoorvastatin, she has not picked up medications Assessment & Plan (09/06/2022 12:54 PM EST): Will start vascepa for triglyceride control and atorvastatin, ldl target <70 Mixed stress and urge urinary incontinence 08/09 Assessment & Plan (09/06/2022 12:52 PM EST): Will provide oxybutinin, if symptoms persist will consider urology referal Encounters Date Type Department Care Team Description 09/05/2024 Patient Outreach [facility] [address] [place] [address] Nikhil Gagonn MD Transition Of Care (Tcm) (HDF- Unscheduled - PER [facility] 08/17/2024 Orders Only GENERIC EXTERNAL DATA DEPARTMENT Provider, Generic External Data 08/09/2024 Refill [facility] [address] [place] [address] Nikhil Gagnon MD Neuropathic pain 07/23/2024 Telephone [facility] [address] [place] [address] Nikhil Gagnon MD Appointment Request 07/16/2024 Refill [facility] [address] [place] [address] Nikhil Gagnon MD Anxiety 07/16/2024 Refill [facility] [address] [place] [address] Nikhil Gagnon MD Anxiety 07/16/2024 Refill [facility] [address] [place] [address] Nikhil Gagnon MD Neuropathic pain 07/11/2024 Telephone [facility] [address] [place] [address] Nikhil Gagnon MD Med Refill 07/11/2024 Refill [facility] [address] [place] [address] Nikhil Gagnon MD from Last 3 Months Immunizations Name Administration Dates Next Due Influenza injectable quadrivalent preservative f ree 05/20/2019 Family History Medical History Relation Name Comments Throat cancer Brother htn Mother mdd Mother Diabetes Son Relation Name Status Comments Brother Mother Son Social History Tobacco Use Types Packs/Day Years Used Date Smoking Tobacco: Every Day Cigarettes 1 30 Smokeless Tobacco: Never Tobacco Cessation:Ready to Q uit: Not Asked; Counseling Given: Not Answered Alcohol Use Standard Drinks/Week Comments Never 0 (1 standard drink = 0.6 oz pur e alcohol) Depression Answer Date Recorded Patient Health Questionnaire-9 Score 2 01/19/2023 Housing Stability Answer Date Recorded What is your housing situation today? I have edhuyen salmeron 05/23/[address] you [...] Orientation Straight 06/06/2022 10 :36 AM EDT Last Filed Vital Signs Vital Sign Reading Time Taken Comments Blood Pressure 150/87 06/19/2024 2:20 PM EST Pulse 88 06/19/2024 2:20 PM EST Temperature 37.1 ??C (98.7 ??F) 06/19/2024 2:20 PM ES T Respiratory Rate 20 06/19/2024 2:20 PM EST Oxygen Saturation 98% 01/19/2024 2:21 PM EDT Inhaled Oxygen Concentration - - Weight 113 kg (250 lb) 06/19/2024 2:20 PM EST Height 167.6 cm (5' 6 ) 06/19/2024 2:20 PM EST Body Mass Index 40.35 06/19/2024 2:20 PM EST Plan of Treatment Health Maintenance Due Date Last Done Comments CT Colonography 1970 Colonoscopy 1970 Colorectal Cancer Screening 1970 FIT DNA/Cologuard 1970 FIT 1970 FOBT 1970 Sigmoidoscopy 1970 Diabetes: Foot Exam 1980 Eye Exam 1980 Alcohol/Substance Use Screening 1982 DTaP/Tdap/Td Vaccines (1 - Tdap) 1989 Hepatitis B Vaccines (1 of 3 - 19+ 3-dose series) 1989 Pneumococcal Vaccine: 50+ Years (1 of 2 - PCV) 1989 Pap Smear 1991 Cervical Cancer Screening 2000 HPV/Cotest 2000 Mammogram 2010 Lung Cancer Screening 2020 Zoster Vaccines (1 of 2) 2020 Diabetes: Urine Protein Screening 07/21/2023 07/21/2022 Lipid Panel 01/07/2024 01/06/2023, 07/21/2022 Depression Screening 01/20/2024 01/19/2023, 01/20/20 23 SDOH Screening 01/20/2024 01/19/2023 COVID-19 Vaccine ( season) 2024 Influenza Vaccine (#1) 2024 05/20/2019 Diabetes: Hemoglobin A1C 09/19/2024 024, 01/11/2024, 05/16/2023, Additional history exists Tobacco Screening 01/18/2025 01/19/2024 RSV Patients and Patients Aged 60 years or older (1 - 1-dose 75+ series) 2045 HIV Screening Completed 07/21/2022 Hepatitis C Screening Completed 07/21/2022, 022 HIB Vaccines Aged Out No longer eligi ble based on patient's age to complete this topic HPV Vaccines Aged Out No longer eligi ble based on patient's age to complete this topic Hepatitis A Vaccines Aged Out No long er eligible based on patient's age to complete this topic IPV Vaccines Aged Out No longer eligi ble based on patient's age to complete this topic Meningococcal Vaccine Aged Out No pavan jolene eligible based on patient's age to complete this topic RSV under 20 months Aged Out No longe r eligible based on patient's age to complete this topic Rotavirus Vaccines Aged Out No longer eligible based on patient's age to complete this topic Procedures Procedure Name Priority Date/Time Associated Diagnosis Comments US ARTERIAL DUPLEX LE LT Routine 08/21/2024 3:37 PM EST COMPREHENSIVE METABOLIC PANEL Routine 08/17/2024 6:50 PM EST LACTIC ACID Routine 08/17/2024 6:50 PM EST CBC WITH AUTO DIFFERENTIAL Routine 08/17/2024 6:50 PM EST POCT GLYCATED HEMOGLOBIN, TOTAL Routine 06/19/2024 2:55 PM EST Type 2 diabetes mellitus with diabetic peripheral angiopathy and gangrene, with long-term current use of insulin (CMS/HCC) LIPID PANEL, STANDARD Routine 01/06/2023 9:29 AM EDT Type 2 diabetes mellitus with diabetic peripheral angiopathy and gangrene, with long-term current use of insulin (CMS/HCC) HEPATITIS C AB W/REFL TO HCV RNA, QN, PCR Routine 07/21/2022 9:59 AM EST HIV 1/2 ANTIGEN/ANTIBODY, FOURTH GENERATION W/RFL Routine 07/21/2022 9:59 AM EST ALBUMIN, RANDOM URINE W/CREATININE Routine 07/21/2022 9:59 AM EST from Last 3 Months or Most Recently Relevant to Health Maintenance Results * US ARTERIAL DUPLEX LE LT (08/21/2024 3:37 PM EST) Anatomical Region Laterality Modality Abdomen Ultrasound 08/21/2024 3:37 PM EST Narrative 08/22/2024 8:11 AM EST ? [facility] ?[address] ?[place] [address] ? Ultrasound Report ? Signed ? Patient: Marilou Siddiqui ?MR#: [id number] ?? [id number] ? : 1970 ?Acct:[id number] ? Age/Sex: 54 / F ?ADM Date: 08/17/24 ? Loc: HO.S3 ?354-1 ? Attending Dr: Serge Chaudhari MD ? Ordering Physician: Zuleyma Moon PA-C ?? Date of Service: 08/21/24 ?? Procedure(s): US arterial duplex LE LT ?? Accession Number(s): [id number] ? cc: Nikhil Gagnon MD; Zuleyma Moon PA-C ? EXAMINATION: ?? US NONINVASIVE ASSESSMENT OF THE LEFT LOWER EXTREMITY WITH ARTERIAL ?? DUPLEX AND ANKLE BRACHIAL INDICES (ABIS) ? CLINICAL INFORMATION: ?? Nonhealing ulcer ? COMPARISON: ?? Ultrasound arterial Doppler dated April 01, 2024. ? TECHNIQUE: ?? Duplex Doppler techniques with waveform analysis and measurement of ?? velocities in the common femoral, profunda femoris, superficial ?? femoral, popliteal and tibial arteries were performed. In addition, ?? ankle pulse volume recordings, ankle pressure measurements and ankle ?? brachial indices were obtained of the left lower extremity arterial ?? system. The study was performed only at rest. ? FINDINGS: ? LEFT LOWER EXTREMITY DUPLEX ULTRASOUND: ?? Common femoral artery: 170 cm/s. ?? Monophasic waveform. ? Profunda femoris artery: 143 cm/s. ?? Monophasic waveform. ? Superficial femoral artery (proximal): 257 cm/s. ?? Monophasic waveforms. Spectral broadening. ? Superficial femoral artery (mid): 81 cm/s. ?? Monophasic waveforms. Spectral broadening. ? Superficial femoral artery (distal): 66 cm/s. ?? Monophasic waveforms. Spectral broadening. ? Popliteal artery: 40 cm/s ?? Monophasic waveforms. ? Posterior tibial artery is not interrogated secondary to patient ?? discomfort/pain. ? Collateral vessels distal to the left superficial femoral artery. ? US/US arterial duplex LE LT ?? IMPRESSION: ?? Severe inflow disease throughout the vessels left lower extremity. ? Electronically signed by: ??Joshua Hi MD ??08/22/2024 08:08 AM ?? [facility] ? Dictated By: ?Joshua Ellsworth MD ? Signed By: ?<Electronically signed by Joshua Arevalo MD in OV> ? 08/22/24 0808 ? DD/ 1537 ? TD/TT: 08/21/24 1550 ? Tooling Engineer: ? Procedure Note Rozina, Tha - 08/22/2024 [place] [address] Ultrasound Report Signed Patient: Marilou Siddiqui#: [id number] : 1970Acct:[id number] Age/Sex: 54 / FADM Date: 08/17/24 Loc: HO.S3 354-[address]: Serge Chaudhari MD Ordering Physician: Zuleyma Moon PA-C Date of Service: 08/21/24 Procedure(s): US arterial duplex LE Accession Number(s): [id number] cc: Nikhil Gagnon MD; Zuleyma Moon PA-C EXAMINATION: US NONINVASIVE ASSESSMENT OF THE LEFT LOWER EXTREMITY WITH ARTERIAL DUPLEX AND ANKLE BRACHIAL INDICES (ABIS) CLINICAL INFORMATION: Nonhealing ulcer COMPARISON: Ultrasound arterial Doppler dated April 01, 2024. TECHNIQUE: Duplex Doppler techniques with waveform analysis and measurement of velocities in the common femoral, profunda femoris, superficial femoral, popliteal and tibial arteries were performed. In addition, ankle pulse volume recordings, ankle pressure measurements and ankle brachial indices were obtained of the left lower extremity arterial system. The study was performed only at rest. FINDINGS: LEFT LOWER EXTREMITY DUPLEX ULTRASOUND: Common femoral artery: 170 cm/s. Monophasic waveform. Profunda femoris artery: 143 cm/s. Monophasic waveform. Superficial femoral artery (proximal): 257 cm/s. Monophasic waveforms. Spectral broadening. Superficial femoral artery (mid): 81 cm/s. Monophasic waveforms. Spectral broadening. Superficial femoral artery (distal): 66 cm/s. Monophasic waveforms. Spectral broadening. Popliteal artery: 40 cm/s Monophasic waveforms. Posterior tibial artery is not interrogated secondary to patient discomfort/pain. Collateral vessels distal to the left superficial femoral artery. US/US arterial duplex LE LT IMPRESSION: Severe inflow disease throughout the vessels left lower extremity. Electronically signed by: Joshua Hi MD 08/22/2024 08:08 AM EST Dictated By: Joshua Ellsworth MD Signed By: <Electronically signed by Joshua Arevalo MDin OV> 08/22/24 0808 DD/ 1537 TD/TT: 08/21/24 1550 Tooling Engineer: us [facility] External Provider IMG US PROCEDURES Edited Result - Final * (ABNORMAL) CBC auto differential (08/17/2024 6:50 PM EST) White Blood Count 10.8 4.8 - 10.8 X10*3/uL [facility] Red Blood Count 4.48 4.20 - 5.50 X10*6/uL [facility] Hemoglobin 12.0 12.0 - 16.0 g/dl [facility] Hematocrit 37.0 37.0 - 47.0 % [facility] Mean Corpuscular Volume 82.6 80.0 - 98.0 fL [facility] Mean Corpuscular Hemoglobin 26.8(L) 27.0 - 33.0 pg [facility] Mean Corpuscular HGB Conc 32.4 31.0 - 35.0 g/dl [facility] Red Cell Distribution Width 14.5 11.0 - 16.0 % [facility] Platelet Count 367 160 - 400 X10*3/uL [facility] Mean Platelet Volume 9.7 9.4 - 12.3 fL [facility] Neutrophils Percent Auto 81.4(H) 45 - 73 % [facility] Imm Gran Pct Auto 0.5(H) 0.0 - 0.4 % [facility] Lymphocytes Percent Auto 10.2(L) 20 - 40 % [facility] Monocytes Percent Auto 6.5 2 - 11 % [facility] Eosinophils Percent Auto 0.8 0 - 4 % [facility] Basophils Percent Auto 0.6 0 - 2 % [facility] NRBC Pct Auto 0.0 0.0 - 0.2 /100WBC [facility] Neutrophils Absolute Auto 8.8(H) 2.0 - 8.3 x10*3/uL [facility] Imm Gran Abs Auto 0.05(H) 0.00 - 0.03 X10*3/uL [facility] Lymphocytes Absolute Auto 1.1(L) 1.2 - 4.9 X10*3/uL [facility] Monocytes Absolute Auto 0.7 0.1 - 1.2 X10*3/uL [facility] Eosinophils Absolute Auto 0.1 0.0 - 0.4 X10*3/uL [facility] Basophils Absolute Auto 0.1 0.0 - 0.2 X10*3/uL [facility] NRBC Abs Auto 0.000 0.0 - 0.012 X10*3/uL [facility] 08/17/2024 6:50 PM EST 08/17/2024 6:56 PM EST us Generic External Data Provider LAB BLOOD ORDERAB LES Final Result [facility] [address] [place] [address] [phone] * Lactic Acid (08/17/2024 6:50 PM EST) Lactic Acid 2.0 0.5 - 2.0 mmol/L [facility] 08/17/2024 6:50 PM EST 08/17/2024 6:56 PM EST us Generic External Data Provider LAB BLOOD ORDERAB LES Final Result [facility] [address] [place] [address] [phone] * (ABNORMAL) Comprehensive Metabolic Panel (08/17/2024 6:50 PM EST) Sodium 132(L) 135 - 145 mmol/L [facility] Potassium 4.3 3.3 - 5.1 mmol/L [facility] Comment:Mild Hemolysis.Inter pret result with caution Chloride 95(L) 96 - 108 mmol/L [facility] Carbon Dioxide 28 22 - 29 mmol/L [facility] Anion Gap 13 12 - 20 [facility] Urea Nitrogen (BUN) 11 9 - 16 mg/dL [facility] Creatinine, Serum 0.76 0.5 - 1.4 mg/dL [facility] Creatinine Clr Calc [facility] Comment:Provided height and weight: 167.64 cm,87.7 kg.eGFR (calculated from the MDRD study equation) and eCrCl(calculated from the Cockcroft-Gault equation) are based ondifferent parameters and may not yield comparable results.If eCrCl result is absurd, please check patient'sheight/weight. Estimated Glomerular Filt Rate >60 [facility] Comment:Chronic Kidney Disea se: Estimated GFR < 60 mL/min/1.32d3Lqzocu Kidney Disease: Estimated GFR < 15 mL/min/1.73m2 Glucose 352(HH) 60 - 115 mg/dL [facility] Comment:Critical value for t est GLU: Results called to and readback by: KEELEY Person calling: MASTER Date: 08/17/24Time: 1918 Calcium 8.7 8.4 - 10.2 mg/dL [facility] Bilirubin, Total 0.2 0.0 - 1.0 mg/dL [facility] Aspartate Amino Transferase 35(H) 5 - 31 U/L [facility] Comment:Mild Hemolysis.Inter pret result with caution Alanine Aminotransferase 8 0 - 31 U/L [facility] Total Protein 7.3 6.5 - 8.0 g/dL [facility] Comment:Mild Hemolysis.Inter pret result with caution Albumin Level 2.8(L) 3.5 - 5.0 g/dL [facility] Alkaline Phosphatase 97 39 - 117 U/L [facility] 08/17/2024 6:50 PM EST 08/17/2024 6:56 PM EST Generic External Data Provider LAB BLOOD ORDERAB LES Final Result Performing Organization Address City/State/[facility] Co de Phone Number [facility] [address] [place] [phone] * (ABNORMAL) POCT HGB A1C (06/19/2024 2:55 PM EST) [facility] Hemoglobin A1C 9.5(A) 4.0 - 6.0 % QC Media Lot # [id number] Lot# Expiration Date Blood 06/19/2024 2:55 PM EST us Nikhil Potts MD POINT OF CARE TEST ENTER/EDIT ORDERABLES Final Result * (ABNORMAL) Lipid Panel, Standard (01/06/2023 9:29 AM EDT) Pathologist [facility] Cholesterol, Total 208(H) <200 mg/dL PS DEPT. [place] [facility] HDL Cholesterol 39(L) > OR = 50 mg/dL [place] DEPT. [place] [facility] Triglycerides 842(H) <150 mg/dL [place] [facility]PT. [place] [facility] Comment: If a non-fasting specimen was collected, consider repeat triglyceride testing on a fasting specimen if clinically indicated. Amarilis et al. J. of Clin. Lipidol. 2015;9:129-169. There is increased risk of pancreatitis when the triglyceride concentration is very high (> or = 500 mg/dL, especially if > or = 1000 mg/dL). Amarilis et al. J. of Clin. Lipidol. 2015;9:129-169. LDL Cholesterol [facility] Comment: LDL cholesterol not calculated. Triglyceride levels greater than 400 mg/dL invalidate calculated LDL results. Reference range: <100 Desirable range <100 mg/dL for primary prevention; ?? <70 mg/dL for patients with CHD or diabetic patients with > or = 2 CHD risk factors. LDL-C is now calculated using the Austin calculation, which is a validated novel method providing better accuracy than the Friedewald equation in the estimation of LDL-C. Vladislav JOHNSON et al. [place]. 2013;310(19): 8542-4947 (http://education.Skytap/faq/AQX895) Chol/HDLC Ratio 5.3(H) <5.0 (calc) [facility] Non-HDL Cholesterol 169(H) <130 mg/dL (calc) [facility] Comment: For patients with diabetes plus 1 major ASCVD risk factor, treating to a non-HDL-C goal of <100 mg/dL (LDL-C of <70 mg/dL) is considered a therapeutic option. Blood Venous blood specimen / Unknown 01/06/2023 9:29 AM EDT 01/06/2023 9:29 AM EDT Narrative [facility] - 01/07/2023 5:36 AM EDT FASTING:YES FASTING: YES Nikhil Potts MD LAB BLOOD ORDERABL ES Final Result [facility] [address], [place] [address] [place] DEPT. [place] [facility] 200 [place] [address] * (ABNORMAL) Albumin, Random Urine W/Creatinine (07/21/2022 9:59 AM EST) Creatinine, Random Urine 56 20 - 275 mg/dL [place] [facility]PT. [place] [facility] Albumin, Urine 4.7 See Note: mg/dL [place] DEPT. [place] [facility] Comment: Reference Range: Reference Range Not established Albumin/Creatinin e Ratio, Random Urine 84(H) <30 mcg/mg creat [facility] [place] [facility] Comment: The ADA defines abnormalities in albumin excretion as follows: Albuminuria Category ?Result (mcg/mg creatinine) Normal to Mildly increased ?? <30 Moderately increased ? 30-299 Severely increased ? > OR = 300 The ADA recommends that at least two of three specimens collected within a 3-6 month period be abnormal before considering a patient to be within a diagnostic category. 07/21/2022 9:59 AM EST 07/21/2022 10:01 AM EST Narrative [facility] - 07/27/2022 9:21 PM EST FASTING:NO FASTING: NO us Nikhil Potts MD LAB URINE ORDERABL ES Final Result [facility] [address], [place] [address] PS DEPT. [place] [facility] 200 [facility], (Nl2) [place] [address] * (ABNORMAL) Hepatitis C Antibody with Reflex to HCV, RNA, Quantitative, Real- Time PCR (07/21/2022 9:59 AM EST) Pathologist [facility] Hepatitis C Antibody REACTIVE( A) NON-REACT DEION [facility]PT. [place] [facility] Index 7.16(H) <1.00 [facility] DEPT. [place] [facility] Comment: Based on this result, the sample will be tested for HCV RNA by a Nucleic Acid Amplification Test (NAAT) to determine if the patient has a current active infection. 07/21/2022 9:59 AM EST 07/21/2022 10:01 AM EST Narrative [facility] - 07/27/2022 9:21 PM EST FASTING:NO FASTING: NO Nikhil Potts MD LAB BLOOD ORDERABL ES Final Result [facility] Vincent [address], [place] [address] PS DEPT. [place] [facility] 200 [facility], (Nl2) [place] [address] * HIV-1/2 Antigen and Antibodies, Fourth Generation, with Reflexes (07/21/2022 9:59 AM EST) HIV Antigen/Antibody, 4th Generation NON-REAC TIVE NON-REAC TIVE [place] DEPT. [place] [facility] Comment: HIV-1 antigen and HIV-1/HIV-2 antibodies were not detected. There is no laboratory evidence of HIV infection. PLEASE NOTE: This information has been disclosed to you from records whose confidentiality may be protected by state law. ??If your state requires such protection, then the state law prohibits you from making any further disclosure of the information without the specific written consent of the person to whom it pertains, or as otherwise permitted by law. A general authorization for the release of medical or other information is NOT sufficient for this purpose. ?? For additional information please refer to http://education.Genymobile.Zarpamos.com/faq/PUN434 (This link is being provided for informational/ educational purposes only.) The performance of this assay has not been clinically validated in patients less than 2 years old. 07/21/2022 9:59 AM EST 07/21/2022 10:01 AM EST Narrative [facility] - 07/27/2022 9:21 PM EST FASTING:NO FASTING: NO Nikhil Potts MD LAB BLOOD ORDERABL ES Final Result [facility] Vincent [address], [place] [address] PS DEPT. [place] [facility] 200 [facility], (Nl2) [place] [address] from Last 3 Months or Most Recently Relevant to Health Maintenance Insurance * Guarantor: Marilou Siddiqui Account Type Relation to Patient Date of Phone Billing Address Personal/Family Self [address] Care Teams Multimedia Educational Specialist Relationship Specialty Start Date End Date Nikhil Gagnon MD [address] [place] [address] PCP - General Internal Medicine 12/27/19 ASSIGNED EMPLOYEE (NONE) Private Wealth AdvisorSenior Java Developer 04/26/24
--- OUTSIDE RECORDS SUMMARY | 2024-10-08 18:45 | XMS_ITS | Encounter Summary ---
Author Organization [employer] Address [address] [facility] 7 [place] [address] Care Team Providers Care Flat Sheet Maker Name Role Phone Nikhil Gagnon MD Primary Care Prov ider Encounter Details Date Type Department Care Team ([facility] st Contact Info) Description 10/22/2022 Orders Only [facility] CHC MED & PEDS 505 [place], [place] [phone] Nikhil Gagnon MD 505 [place] [address] Social History Tobacco Use Types Packs/Day Years Used Date Smoking Tobacco: Every Day Cigarettes 1 30 Smokeless Tobacco: Never Alcohol Use Standard Drinks/Week Comments Never 0 (1 standard drink = 0.6 oz pur e alcohol) Comments Unknown Sex and Gender Information Value Date Recorded Sex Assigned at Female 06/06/2022 10:36 AM EDT Legal Sex Female 10:36 AM EDT Gender Identity Transgender Female 06/06/2022 10 :36 AM EDT Sexual Orientation Straight 06/06/2022 10 :36 AM EDT COVID-19 Exposure Response Date Recorded In the last 10 days, have yo u been in contact with someone who was confirmed or suspected to have Coronavirus/COVID-19? No / Unsure 10/21/2022 8:45 AM EDT documented as of this encounter Plan of Treatment Not on file documented as of this encounter Visit Diagnoses Not on filedocumented in this encounter Care Teams Flat Sheet Maker Relationship Specialty Start Date End Date Nikhil Gagnon MD [address] [place] [id number] PCP - General Internal Medicine 12/27/19 ASSIGNED EMPLOYEE (NONE) Marshmallow Machine WorkerAssembler Watch Train 04/26/24 documented as of this encounter
--- OUTSIDE RECORDS SUMMARY | 2024-10-08 18:45 | XMS_ITS | Encounter Summary ---
Author Organization [employer] Address 75 [facility] 7t [place] [address] Care Team Providers Care Women'S Studies Professor Name Role Phone Nikhil Gagnon MD Primary Care Prov ider Reason for Visit * Reason Onset Date Comments Call Back Request 05/28/2024 Encounter Details Date Type Department Care Team ([facility] st Contact Info) Description 05/28/2024 Telephone [facility] MEDICINE 230 [place] [address] Nikhil Gagnon MD 505 [place] [address] Call Back Request Social History Tobacco Use Types Packs/Day Years [...] encounter Miscellaneous Notes * Telephone Encounter - Nivia Simpson RN - 05/30/2024 1:45 PM EDT TC placed to pt to f/u on appt from yesterday 05/29/24 which the pt was unable to attend due to lack of transportation. The pt states that she is wheelchair bound and needs assistive devices to help with ambulating. The pt does have a r/s appt with PCP on 06/19/24 at 2 PM. The pt has been in contact with her long term care phlebotomist who will be with the pt along with her son for this appt. A request has also been made to make sure that the pt has active PT1 in place for transportation. The pt did call also with continuing concerns with wound care orders. The pt does have VNA visits every morning so perhaps adding on wound care would be beneficial. Pt informed that PCP will be made aware of request to see if orders can be placed. * Telephone Encounter - Chepe Medley - 05/28/2024 8:47 AM EDT Tc from pt requesting call back regarding ongoing issue states pcp is aware of. Pt is currently be ridden and is unable to leave her home so she is requesting to change tomorrows visit to a telephonevisit and or a call back from a nurse for advice. Please contact pt at [phone]. documented in this encounter Plan of Treatment Not on file documented as of this encounter Visit Diagnoses Not on filedocumented in this encounter Additional Health Concerns Assessment Noted Time PHQ-9 Depression Total Score: 2 01/20/20 23 8:54 AM EDT documented as of this encounter Care Teams Women'S Studies Professor Relationship Specialty Start Date End Date Nikhil Gagnon MD [address] [place] [id number] PCP - General Internal Medicine 12/27/19 ASSIGNED EMPLOYEE (NONE) Hand Binder StripperGag Writer 04/26/24 documented as of this encounter
--- OUTSIDE RECORDS SUMMARY | 2024-10-08 18:45 | XMS_ITS | Encounter Summary ---
Author Organization [employer] Address [address] [facility] 7t [place] [address] Care Team Providers Care Parking Line Painter Name Role Phone Nikhil Gagnon MD Primary Care Prov ider Reason for Visit * Reason Onset Date Comments Med Refill 11/02/2022 Encounter Details Date Type Department Care Team ([facility] Contact Info) Description 11/02/2022 Telephone [facility] CHC MED & PEDS 505 [place] [address] Nikhil Gagonn MD 505 [place] [address] Med Refill Social History Tobacco Use Types Packs/Day Years [...] encounter Miscellaneous Notes * Telephone Encounter - Cassius Flores - 11/02/2022 10:37 AM EDT Tc from pt requesting med refill on metFORMIN (Glucophage) 500 MG tablet Please sent to [id number] - [place] - [address] [facility] documented in this encounter Plan of Treatment Not on file documented as of this encounter Visit Diagnoses Not on filedocumented in this encounter Care Teams Parking Line Painter Relationship Specialty Start Date End Date Nikhil Gagnon MD [address] [place] [address] [place] [address] PCP - General Internal Medicine 12/27/19 ASSIGNED EMPLOYEE (NONE) Technical Support AgentCommunications Administrator 04/26/24 documented as of this encounter
--- OUTSIDE RECORDS SUMMARY | 2024-10-08 18:45 | XMS_ITS | Encounter Summary ---
Author Organization [employer] Address [address] [facility] 7t [place] [address] Care Team Providers Care Tire Service Technician Name Role Phone Nikhil Gagnon MD Primary Care Prov ider Reason for Visit * Reason Onset Date Comments Durable Medical Equipment 05/29/2024 Encounter Details Date Type Department Care Team (Late st Contact Info) Description 05/29/2024 Telephone [facility] MEDICINE 230 [place] [address] Nikhil Gagnon MD 505 [place] [address] Durable Medical Equipment Social History Tobacco Use Types Packs/Day Years [...] encounter Miscellaneous Notes * Telephone Encounter - Chepe Medley - 05/29/2024 2:11 PM EDT Tc from [facility] requesting wound dressing for pt stating she is running out. If any questions you can contact pt at [phone]. documented in this encounter Plan of Treatment Not on file documented as of this encounter Visit Diagnoses Not on filedocumented in this encounter Additional Health Concerns Assessment Noted Time PHQ-9 Depression Total Score: 2 01/20/20 8:54 AM EDT documented as of this encounter Care Teams Tire Service Technician Relationship Specialty Start Date End Date Nikhil Gagnon MD [address] [place] [address] PCP - General Internal Medicine 12/27/19 ASSIGNED EMPLOYEE (NONE) Photovoltaic Panel InstallerDevelopment Technologist 04/26/24 documented as of this encounter
--- OUTSIDE RECORDS SUMMARY | 2024-10-08 18:45 | XMS_ITS | Encounter Summary ---
Author Organization [employer] Address [address] [place] [address] 7 [place] [address] Care Team Providers Care Shove Up Name Role Phone Nikhil Gagnon MD Primary Care Prov ider Reason for Visit * Reason Onset Date Comments Appointment Request 11/22/2022 Encounter Details Date Type Department Care Team ([facility] Contact Info) Description 11/22/2022 Telephone [facility] CHC MED & PEDS 505 [place], [place] [phone] Nikhil Gagnon MD 505 [place] [address] Appointment Request Social History Tobacco Use Types Packs/Day [...] encounter Miscellaneous Notes * Telephone Encounter - Estela Gary - 11/22/2022 9:04 AM EDT Tc from pt requesting to r/s todays no show appt . Due to transportation not arriving . documented in this encounter Plan of Treatment Not on file documented as of this encounter Visit Diagnoses Not on filedocumented in this encounter Care Teams Shove Up Relationship Specialty Start Date End Date Nihkil Gagnon MD [address] [place] [address] PCP - General Internal Medicine 12/27/19 ASSIGNED EMPLOYEE (NONE) Express ManagerHead Of Measurement & Insights 04/26/24 documented as of this encounter
--- OUTSIDE RECORDS SUMMARY | 2024-10-08 18:45 | XMS_ITS | Encounter Summary ---
Author Organization [employer] Address [address] [facility] 7t [place] [address] Care Team Providers Care Rework Operator Name Role Phone Nikhil Gagnon MD Primary Care Prov ider Encounter Details Date Type Department Care Team (Late st Contact Info) Description 02/29/2024 Telephone [facility] MEDICINE 230 [place] [address] Nikhil Gagnon MD 505 [place], [place] [phone] Social History Tobacco Use Types Packs/Day Years [...] documented as of this encounter Care Teams Rework Operator Relationship Specialty Start Date End Date Nikhil Gagnon MD [address] [place] [address] PCP - General Internal Medicine 12/27/19 ASSIGNED EMPLOYEE (NONE) Clutch AssemblerPc Maintenance Technician 04/26/24 documented as of this encounter
--- OUTSIDE RECORDS SUMMARY | 2024-10-08 18:45 | XMS_ITS | Encounter Summary ---
Author Organization [employer] Address [address] [facility] 7 [place] [address] Care Team Providers Care Optical Dispenser Name Role Phone Nikhil Gagnon MD Primary Care Prov ider Encounter Details Date Type Department Care Team ([facility] st Contact Info) Description 04/10/2024 Telephone [facility] CHC MED & PEDS 505 [place], [place] [phone] Nikhil Gagnon MD 505 [place] [address] Social History Tobacco Use Types Packs/Day Years [...] * Telephone Encounter - Estela Gary - 04/10/2024 10:30 AM EDT Tc from pt requesting a call back . States needs a letter for her methadone clinic to be able to get home delivery. Please call pt to clarify. documented in this encounter Plan of Treatment Not on file documented as of this encounter Visit Diagnoses Not on filedocumented in this encounter Additional Health Concerns Assessment Noted Time PHQ-9 Depression Total Score: 2 01/20/20 23 8:54 AM EDT documented as of this encounter Care Teams Optical Dispenser Relationship Specialty Start Date End Date Nikhil Gagnon MD 505 [place] [address] PCP - General Internal Medicine 12/27/19 ASSIGNED EMPLOYEE (NONE) Button Breaker OperatorHoeing Row Boss 04/26/24 documented as of this encounter
--- OUTSIDE RECORDS SUMMARY | 2024-10-08 18:45 | XMS_ITS | Encounter Summary ---
Author Organization [employer] Address [address] [place] [address] 7 [place] [address] Care Team Providers Care Faculty Instructor Name Role Phone Nikhil Gagnon MD Primary Care Prov ider Encounter Details Date Type Department Care Team (Late st Contact Info) Description 08/12/2022 Orders Only [facility] MEDICINE 230 [place], [place] [phone] Nikhil Gagnon MD 505 [place], [place] [phone] Neuropathic pain Social History Tobacco Use Types Packs/Day Years [...] documented as of this encounter Visit Diagnoses Diagnosis Neuropathic pain documented in this encounter Care Teams Faculty Instructor Relationship Specialty Start Date End Date Nikhil Gagnon MD 505 [place] [address] PCP - General Internal Medicine 12/27/19 ASSIGNED EMPLOYEE (NONE) X Ray TechnologistR D Internship 04/26/24 documented as of this encounter
--- OUTSIDE RECORDS SUMMARY | 2024-10-08 18:45 | XMS_ITS | Encounter Summary ---
Author Organization [employer] Address [address] [facility] [address] 7t [place] [address] Care Team Providers Care Ophthalmic Surgeon Name Role Phone Nikhil Gagnon MD Primary Care Prov ider Reason for Visit * Reason Onset Date Comments Appointment Request 03/13/2024 Encounter Details Date Type Department Care Team ([facility] st Contact Info) Description 03/13/2024 Telephone [facility] MEDICINE 230 [place] [address] Nikhil Gagnon MD 505 [place], [place] [phone] Appointment Request Social History Tobacco Use Types [...] encounter Miscellaneous Notes * Telephone Encounter - Jaya Santos - 03/13/2024 9:10 AM EDT Tc from patient calling to cancel follow up extended appt movie writer did attempt to reschedule however no available slots to book documented in this encounter Plan of Treatment Not on file documented as of this encounter Visit Diagnoses Not on filedocumented in this encounter Additional Health Concerns Assessment Noted Time PHQ-9 Depression Total Score: 2 01/20/20 23 8:54 AM EDT documented as of this encounter Care Teams Ophthalmic Surgeon Relationship Specialty Start Date End Date Nikhil Gagnon MD [address] [place] [address] PCP - General Internal Medicine 12/27/19 ASSIGNED EMPLOYEE (NONE) Pig Iron LoaderLoan Supervisor 04/26/24 documented as of this encounter
--- OUTSIDE RECORDS SUMMARY | 2024-10-08 18:45 | XMS_ITS | Encounter Summary ---
Author Organization [employer] Address [address] [place] [address] 7 [place] [address] Care Team Providers Care Chisel Mortiser Operator Name Role Phone Nikhil Gagnon MD Primary Care Prov ider Reason for Visit * Reason Comments Med Refill Encounter Details Date Type Department Care Team ([facility] st Contact Info) Description 10/05/2022 Refill [facility] CHC MED & PEDS 505 [place], [place] [phone] Nikhil Gagnon MD 505 [place], [place] [phone] Anxiety Social History Tobacco Use Types Packs/Day Years [...] as of this encounter Visit Diagnoses Diagnosis Anxiety Anxiety state, unspecified documented in this encounter Care Teams Chisel Mortiser Operator Relationship Specialty Start Date End Date Nikhil Gagnon MD 505 [place], [place] [phone] PCP - General Internal Medicine 12/27/19 ASSIGNED EMPLOYEE (NONE) Bottling Equipment Sales RepresentativeGate Technician 04/26/24 documented as of this encounter
--- OUTSIDE RECORDS SUMMARY | 2024-10-08 18:45 | XMS_ITS | Encounter Summary ---
Author Organization [employer] Address [address] [facility] [address] 7t [place] [address] Care Team Providers Care Jukebox Routeman Name Role Phone Nikhil Gagnon MD Primary Care Prov ider Reason for Visit * Reason Onset Date Comments Medication Question 02/02/2024 Encounter Details Date Type Department Care Team ([facility] st Contact Info) Description 02/02/2024 Telephone [facility] MEDICINE 230 [place] [address] Nikhil Gagnon MD 505 [place], [place] [phone] Medication Question Social History Tobacco Use Types Packs/Day Years [...] encounter Miscellaneous Notes * Telephone Encounter - Vannessa Mehta RN - 02/09/2024 3:30 PM EDT Pt spoke to Dr Reddy through [facility] on 02/02/24 and advised to go to ED. Pt has upcoming appt on Monday with PCP. * Telephone Encounter - Chepe Medley - 02/02/2024 1:49 PM EDT Tc from pt requesting call back, pt stated they've been having they're still dealing with celluliteso they wanted to see if pcp can continue to prescribe cephalexin (Keflex) 500 MG capsule and dicloxacillin. Please contact pt at [phone]. documented in this encounter Plan of Treatment Not on file documented as of this encounter Visit Diagnoses Not on filedocumented in this encounter Additional Health Concerns Assessment Noted Time PHQ-9 Depression Total Score: 2 01/20/20 23 8:54 AM EDT documented as of this encounter Care Teams Jukebox Routeman Relationship Specialty Start Date End Date Nikhil Gagnon MD 505 [place] [address] PCP - General Internal Medicine 12/27/19 ASSIGNED EMPLOYEE (NONE) Button Breaker OperatorLead Oracle Developer 04/26/24 documented as of this encounter
--- OUTSIDE RECORDS SUMMARY | 2024-10-08 18:45 | XMS_ITS | Encounter Summary ---
Author Organization [employer] Address 75 [facility] 7t [place] [address] Care Team Providers Care Fitness Club Manager Name Role Phone Nikhil Gagnon MD Primary Care Prov ider Reason for Visit * Reason Onset Date Comments Med Refill 04/09/2024 Encounter Details Date Type Department Care Team (Late st Contact Info) Description 04/09/2024 Telephone [facility] 230 [place] [address] Nikhil Gagnon MD 505 [place] [address] Med Refill Social History Tobacco Use Types [...] * Telephone Encounter - Cassius Flores - 04/09/2024 3:57 PM EDT TC from pt requesting medication refill. Medications needing refill : ALPRAZolam (Xanax) 0.5 MG tablet To be sent to: [facility][id number] [place], [place] - [address] [place] [address] [facility] documented in this encounter Plan of Treatment Not on file documented as of this encounter Visit Diagnoses Not on filedocumented in this encounter Additional Health Concerns Assessment Noted Time PHQ-9 Depression Total Score: 2 01/20/20 23 8:54 AM EDT documented as of this encounter Care Teams Fitness Club Manager Relationship Specialty Start Date End Date Nikhil Gagnon MD [address] [place] [address] PCP - General Internal Medicine 12/27/19 ASSIGNED EMPLOYEE (NONE) El TeacherAutomation Architect 04/26/24 documented as of this encounter
--- OUTSIDE RECORDS SUMMARY | 2024-10-08 18:45 | XMS_ITS | Encounter Summary ---
Author Organization [employer] Address [address] [facility] [address] 7t [place] [address] Care Team Providers Care Biologics Specialist Name Role Phone Nikhil Gagnon MD Primary Care Prov ider Reason for Visit * Reason Onset Date Comments Nurse Triage 04/09/2024 Encounter Details Date Type Department Care Team ([facility] st Contact Info) Description 04/09/2024 Telephone [facility] MEDICINE 230 [place] [address] Nikhil Gagnon MD 505 [place], [place] [phone] Nurse Triage Social History Tobacco Use Types Packs/Day Years [...] encounter Miscellaneous Notes * Telephone Encounter - Neha Hope RN - 04/09/2024 4:44 PM EDT Triage call , Pt is very upset, concerned about chronic cellulitis and doesn't want to end up in Edagain. Pt last ED visit is 04/04/24, [facility] [place] , report is on the chart. Pt has been taking Augmentin 875mg as prescribed and is finished but, Pt is asking for more antibiotic because the left lower extremity is not totally healed. Pt denies open wounds but, describes the continued redness which exists. Pt reports unable to come to apts because EHR TRAINER is no longer working for Pt and will take time to get new one. Pt reports unable to get prosthetic on BKA due to swelling and this makes it impossible to get out of the house even for an uber picker/puller. Pt reports one more week of the augmentin would make the cellulitis fully gone. Pt does not want to have to return to ED for IV antibiotics at this point . Advised that Pt has apt next Monday04/19/24 @ 900am so try to begin to obtain transportation now. Pt agrees. Advised Pt will given TSK apt with PCP 04/10/24 @ 930am to be able to speak with PCP. Pt agrees with disposition and will be looking for registration call for TSK. Pt is already implementing home care , elevating leg Protocol Used: Cellulitis on Antibiotic Follow-up Call (Adult) Protocol-Based Disposition: See in Office or Video Visit Today or Tomorrow Video visit offered and caller accepted Positive Triage Questions: * Taking antibiotic > 72 hours (3 days) and cellulitis symptoms are SAME (not getting better) * Patient wants to be seen * All higher-acuity triage questions were negative * Telephone Encounter - Cassius Rangel Mark - 04/09/2024 4:00 PM EDT Tc from pt Chronic Cellulites states she goes to the ER every other Week but symptoms do not get better. documented in this encounter Plan of Treatment Not on file documented as of this encounter Visit Diagnoses Not on filedocumented in this encounter Additional Health Concerns Assessment Noted Time PHQ-9 Depression Total Score: 2 01/20/20 23 8:54 AM EDT documented as of this encounter Care Teams Biologics Specialist Relationship Specialty Start Date End Date BeltranNikhil Stephenson MD [address] [place] [phone] PCP - General Internal Medicine 12/27/19 ASSIGNED EMPLOYEE (NONE) Project InspectorNeuroradiologist 04/26/24 documented as of this encounter
--- OUTSIDE RECORDS SUMMARY | 2024-10-08 18:45 | XMS_ITS | Encounter Summary ---
Author Organization [employer] Address [address] [facility] 7t [place] [address] Care Team Providers Care Electric Motor Winder Name Role Phone Nikhil Gagnon MD Primary Care Prov ider Reason for Visit * Reason Onset Date Comments Med Refill 05/10/2024 Encounter Details Date Type Department Care Team (Late st Contact Info) Description 05/10/2024 Telephone [facility] MEDICINE 230 [place] [address] Nikhil Gagnon MD 505 [place] [address] Med Refill Social History Tobacco Use Types [...] encounter Miscellaneous Notes * Telephone Encounter - Abhay White - 05/10/2024 3:24 PM EDT TC from pt requesting medication refill. Medications needing refill : ALPRAZolam (Xanax) 0.5 MG tablet To be sent to: [facility][id number] [place], [place] - [address] [place] [address] AT [facility] documented in this encounter Plan of Treatment Not on file documented as of this encounter Visit Diagnoses Not on filedocumented in this encounter Additional Health Concerns Assessment Noted Time PHQ-9 Depression Total Score: 2 01/20/20 23 8:54 AM EDT documented as of this encounter Care Teams Electric Motor Winder Relationship Specialty Start Date End Date Nikhil Gagnon MD [address] [place] [phone] PCP - General Internal Medicine 12/27/19 ASSIGNED EMPLOYEE (NONE) Soda DispenserChair Pad Maker 04/26/24 documented as of this encounter
--- OUTSIDE RECORDS SUMMARY | 2024-10-08 18:45 | XMS_ITS | Encounter Summary ---
Author Organization [employer] Address [address] [place] [address] 7 [place] [address] Care Team Providers Care Accounts Payable Specialist Name Role Phone Nikhil Gagnon MD Primary Care Prov ider Reason for Visit * Reason Onset Date Comments Medication Question 10/07/2022 Encounter Details Date Type Department Care Team ([facility] st Contact Info) Description 10/07/2022 Telephone [facility] MED & PEDS 505 [place], [place] [phone] Nikhil Gagnon MD 505 [place] [address] Medication Question Social History Tobacco Use Types [...] encounter Miscellaneous Notes * Telephone Encounter - Doris Davis RN - 10/07/2022 2:52 PM EST TC to pt. Lorazepam rx sent to the pharm. Pt verbalized understanding. Pt has an initial accounts specialist nv scheduled for 10/21/22. * Telephone Encounter - Artur Abarca - 10/07/2022 1:40 PM EST Tc from pt requesting status on medication Please contact pt at [phone] * Telephone Encounter - Cassius Flores - 10/07/2022 10:21 AM EST Tc from pt requesting a status on medication for Alprazolam 0.5 mg Tablet. Please contact pt at [phone] documented in this encounter Plan of Treatment Not on file documented as of this encounter Visit Diagnoses Diagnosis Anxiety Anxiety state, unspecified documented in this encounter Care Teams Accounts Payable Specialist Relationship Specialty Start Date End Date Nikhil Gagnon MD [address] [place] [id number] PCP - General Internal Medicine 12/27/19 ASSIGNED EMPLOYEE (NONE) Educational Program DirectorJob Site Superintendent 04/26/24 documented as of this encounter
--- OUTSIDE RECORDS SUMMARY | 2024-10-08 18:45 | XMS_ITS | Encounter Summary ---
Author Organization [employer] Address 75 [facility] 7t [place] [address] Care Team Providers Care Compatibility Test Engineer Name Role Phone Nikhil Gagnon MD Primary Care Prov ider Reason for Visit * Reason Onset Date Comments Med Refill 07/11/2024 Encounter Details Date Type Department Care Team (Late st Contact Info) Description 07/11/2024 Telephone [facility] MEDICINE 230 [place] [address] Nikhil Gagnon MD 505 [place] [address] Med Refill Social History Tobacco Use Types [...] * Telephone Encounter - Chepe Medley - 07/11/2024 3:53 PM EST TC from pt requesting medication refill. Medications needing refill: ALPRAZolam (Xanax) 0.5 MG tablet To be sent to: [facility][id number] [place], [place] - [address] [place] [address] AT [facility] documented in this encounter Plan of Treatment Not on file documented as of this encounter Visit Diagnoses Not on filedocumented in this encounter Additional Health Concerns Assessment Noted Time PHQ-9 Depression Total Score: 2 01/20/20 23 8:54 AM EDT documented as of this encounter Care Teams Compatibility Test Engineer Relationship Specialty Start Date End Date Nikhil Gagnon MD [address] [place] [phone] PCP - General Internal Medicine 12/27/19 ASSIGNED EMPLOYEE (NONE) Small Offset PrinterSecurity Shift Supervisor 04/26/24 documented as of this encounter
--- OUTSIDE RECORDS SUMMARY | 2024-10-08 18:45 | XMS_ITS | Encounter Summary ---
Author Organization [employer] Address [address] [facility] 7t [place] [address] Care Team Providers Care Signal Apprentice Name Role Phone Nikhil Gagnon MD Primary Care Prov ider Reason for Visit * Reason Onset Date Comments Appointment Request 04/28/2023 Requested Call Back 04/28/2023 Encounter Details Date Type Department Care Team (Late st Contact Info) Description 04/28/2023 Telephone [facility] MEDICINE [address] [place] [address] Nikhil Gagnon MD 505 [place] [address] Appointment Request; Requested Call Back Social History Tobacco Use Types Packs/Day Years Used Date Smoking Tobacco: Every Day Cigarettes 1 30 Smokeless Tobacco: Never Alcohol Use Standard Drinks/Week Comments Never 0 (1 standard drink = 0.6 oz pur e alcohol) Depression Answer Date Recorded Patient Health Questionnaire-9 Score 2 01/19/2023 Depression Answer Date Recorded Patient Health Questionnaire-2 Score 2 01/19/2023 Comments Unknown Sex and Gender Information Value Date Recorded Sex Assigned at Female 06/06/2022 10:36 AM EDT Legal Sex Female 10:36 AM EDT Gender Identity Transgender Female 06/06/2022 10 :36 AM EDT Sexual Orientation Straight 06/06/2022 10 :36 AM EDT documented as of this encounter Miscellaneous Notes * Telephone Encounter - Jessica Win - 04/28/2023 9:34 AM EDT Tc from patient called in to cancel appt at 9:31 am. Flight Follower didn't cancel appt due to the time she called to cancel. Patient also requested to speak with you in regards to medication alprazolam. documented in this encounter Plan of Treatment Not on file documented as of this encounter Visit Diagnoses Not on filedocumented in this encounter Additional Health Concerns Assessment Noted Time PHQ-9 Depression Total Score: 2 01/20/20 23 8:54 AM EDT documented as of this encounter Care Teams Signal Apprentice Relationship Specialty Start Date End Date Nikhil Gagnon MD [address] [place] [phone] PCP - General Internal Medicine 12/27/19 ASSIGNED EMPLOYEE (NONE) Spare HandQuitline Counselor 04/26/24 documented as of this encounter
--- OUTSIDE RECORDS SUMMARY | 2024-10-08 18:45 | XMS_ITS | Encounter Summary ---
Author Organization [employer] Address 75 [facility] 7t [place] [address] Care Team Providers Care Commercial Loan Underwriter Name Role Phone Nikhil Gagnon MD Primary Care Prov ider Reason for Visit * Reason Onset Date Comments Med Refill 02/12/2024 Encounter Details Date Type Department Care Team (Late st Contact Info) Description 02/12/2024 Telephone [facility] MEDICINE 230 [place] [address] Nikhil Gagnon MD 505 [place] [address] Med Refill Social History Tobacco Use Types [...] * Telephone Encounter - Jaya Santos - 02/12/2024 12:24 PM EDT TC from pt requesting medication refill. Medications needing refill : ALPRAZolam (Xanax) 0.5 MG tablet To be sent to: [facility][id number] [place], [place] - [address] [place] [address] AT [facility] documented in this encounter Plan of Treatment Not on file documented as of this encounter Visit Diagnoses Not on filedocumented in this encounter Additional Health Concerns Assessment Noted Time PHQ-9 Depression Total Score: 2 01/20/20 23 8:54 AM EDT documented as of this encounter Care Teams Commercial Loan Underwriter Relationship Specialty Start Date End Date Nikhil Gagnon MD [address] [place] [address] PCP - General Internal Medicine 12/27/19 ASSIGNED EMPLOYEE (NONE) Habilitation SpecialistDirector Market Research 04/26/24 documented as of this encounter
--- OUTSIDE RECORDS SUMMARY | 2024-10-08 18:45 | XMS_ITS | Encounter Summary ---
Author Organization [employer] Address [address] [place] [address] 7 [place] [address] Care Team Providers Care Ornamental Iron Worker Name Role Phone Nikhil Gagnon MD Primary Care Prov ider Reason for Visit * Reason Comments Med Refill Encounter Details Date Type Department Care Team ([facility] st Contact Info) Description 03/31/2023 Refill [facility] CH[facility] MED & PEDS 505 [place] [address] Nikhil Gagnon MD 505 [place] [address] Anxiety Social History Tobacco Use Types Packs/Day [...] Anxiety state, unspecified documented in this encounter Additional Health Concerns Assessment Noted Time PHQ-9 Depression Total Score: 2 01/20/20 23 8:54 AM EDT documented as of this encounter Care Teams Ornamental Iron Worker Relationship Specialty Start Date End Date Nikhil Gagnon MD [address] [place] [address] PCP - General Internal Medicine 12/27/19 ASSIGNED EMPLOYEE (NONE) Credit AuthorizerPaid Search Marketing Strategist 04/26/24 documented as of this encounter
--- OUTSIDE RECORDS SUMMARY | 2024-10-08 18:45 | XMS_ITS | Encounter Summary ---
Author Organization [employer] Address 75 [facility] 7t [place] [address] Care Team Providers Care Forge Shop Machine Repairer Name Role Phone Nikhli Gagnon MD Primary Care Prov ider Reason for Visit * Reason Onset Date Comments PT-1 05/29/2024 Encounter Details Date Type Department Care Team ([facility] st Contact Info) Description 05/29/2024 Telephone [facility] MEDICINE 230 [place] [address] Nikhil Gagnon MD 505 [place] [address] PT-1 Social History Tobacco Use Types Packs/Day [...] Telephone Encounter - Chepe Medley - 05/29/2024 2:01 PM EDT Patient calling requesting PT1 Home Address verified: Y/N: Yes Provider name or facility name: [facility] Facility Address: [address] [place] [address] Escort needed: Y/N: Yes Do you have a wheelchair: Y/N: Yes If yes- Manual or electric: Manual Visits: 4 times monthly documented in this encounter Plan of Treatment Not on file documented as of this encounter Visit Diagnoses Not on filedocumented in this encounter Additional Health Concerns Assessment Noted Time PHQ-9 Depression Total Score: 2 01/20/20 8:54 AM EDT documented as of this encounter Care Teams Forge Shop Machine Repairer Relationship Specialty Start Date End Date Nikhil Gagnon MD [address] [place] [id number] PCP - General Internal Medicine 12/27/19 ASSIGNED EMPLOYEE (NONE) Private Duty RnWoven Blind Loom Tender 04/26/24 documented as of this encounter
--- OUTSIDE RECORDS SUMMARY | 2024-10-08 18:45 | XMS_ITS | Encounter Summary ---
Author Organization [employer] Address 75 [facility] 7t [place] [address] Care Team Providers Care Farm Tractor Operator Name Role Phone Nikhil Gagnon MD Primary Care Prov ider Reason for Visit * Reason Comments Med Refill Encounter Details Date Type Department Care Team ([facility] st Contact Info) Description 07/16/2024 Refill [facility] MEDICINE 230 [place] [address] Nikhil Gagnon MD 505 [place] [address] Anxiety Social History Tobacco Use Types Packs/Day [...] documented as of this encounter Care Teams Farm Tractor Operator Relationship Specialty Start Date End Date Nikhil Gagnon MD [address] [place] [address] PCP - General Internal Medicine 12/27/19 ASSIGNED EMPLOYEE (NONE) Lumber BuyerTest Puller 04/26/24 documented as of this encounter
--- OUTSIDE RECORDS SUMMARY | 2024-10-08 18:45 | XMS_ITS | Encounter Summary ---
Author Organization [employer] Address 75 [facility] 7t [place] [address] Care Team Providers Care Teacher Cclc Name Role Phone Nikhil Gagnon MD Primary Care Prov ider Reason for Visit * Reason Onset Date Comments Appointment Request 07/23/2024 Encounter Details Date Type Department Care Team ([facility] Contact Info) Description 07/23/2024 Telephone [facility] MED & PEDS 505 [place], [place] [phone] Nikhil Gagnon MD 505 [place] [address] Appointment Request Social History Tobacco Use Types [...] Miscellaneous Notes * Telephone Encounter - Doris Brewer RN - 07/23/2024 3:37 PM EST Fyi. Pt cancelled CARDIAC TECHNICIAN appt again. TC back to pt rto r/s appt. Called x3 both #s in the chart, no answer. Unable to lvm. Please advise. * Telephone Encounter - Estela Gary - 07/23/2024 8:54 AM EST Tc from pt canceled today appt and would like to r/s. States has not been feeling well. documented in this encounter Plan of Treatment Not on file documented as of this encounter Visit Diagnoses Not on filedocumented in this encounter Additional Health Concerns Assessment Noted Time PHQ-9 Depression Total Score: 2 01/20/20 23 8:54 AM EDT documented as of this encounter Care Teams Teacher Cclc Relationship Specialty Start Date End Date Nikhil Gagnon MD [address] [place] [address] PCP - General Internal Medicine 12/27/19 ASSIGNED EMPLOYEE (NONE) Follow Up RepStatement Clerks Manager 04/26/24 documented as of this encounter
--- OUTSIDE RECORDS SUMMARY | 2024-10-08 18:45 | XMS_ITS | Clinical Summary ---
Author Organization [facility] it Address [address] [place] [address] Care Team Providers Care Machine Assembler For Puller Over Name Role Phone Unavailable Primary Care Provider Unavailabl e Social History Tobacco Use Types Packs/Day Years Used Date Smoking Tobacco: Never Assessed Comments Unknown Sex and Gender Information Value Date Recorded Sex Assigned at Not on file Legal Sex Female 7:28 PM EST Gender Identity Not on file Sexual Orientation Not on file Plan of Treatment Health Maintenance Due Date Last Done Comments Breast Cancer Screening 1970 DTaP,Tdap,and Td Vaccines (1 - Tdap) 1989 Hepatitis B Vaccines (1 of 3 - 19+ 3-dose series) 1989 Cervical Cancer Screening: P ap Smear 1991 Pneumococcal Vaccine: 50+ Ye ars (1 of 1 - PCV) 2020 Zoster Vaccines (1 of 2) 2020 Colorectal Cancer Screening: Colonoscopy 07/09/2022 HIV Screening 07/09/2022 COVID-19 Vaccine ( - 2023-2 5 season) 2024 Influenza Vaccine (#1) 2024 HIB Vaccines Aged Out No longer eligi [...] on patient's age to complete this topic MMR Vaccines Aged Out No longer eligi ble based on patient's age to complete this topic Meningococcal ACWY Vaccine Aged Out N o longer eligible based on patient's age to complete this topic Meningococcal B Vacine Aged Out No lo nger eligible based on patient's age to complete this topic Pneumococcal Vaccine: Pediat rics (0 to 5 Years) and At-Risk Patients (6 to 64 Years) Aged Out No longer eligible b ased on patient's age to complete this topic RSV Immunization Patients Un yessi 20 months Aged Out No longer eligible b ased on patient's age to complete this topic Varicella Vaccines Aged Out No longer eligible based on patient's age to complete this topic
--- OUTSIDE RECORDS SUMMARY | 2024-10-08 18:45 | XMS_ITS | Encounter Summary ---
Author Organization [employer] Address [address] [facility] 7t [place] [address] Care Team Providers Care Audit Practice Intern Name Role Phone Nikhil Gagnon MD Primary Care Prov ider Reason for Visit * Reason Onset Date Comments Med Refill 05/30/2024 Encounter Details Date Type Department Care Team ([facility] st Contact Info) Description 05/30/2024 Telephone [facility] MED & PEDS 505 [place] [address] Nikhil Gagnon MD 505 [place] [address] Med Refill Social History Tobacco Use Types [...] encounter Miscellaneous Notes * Telephone Encounter - Lizzette Maguire LPN - 05/30/2024 11:29 AM EDT Medication was sent to [facility] #[id number] on 04/11/24 with 11 refills. * Telephone Encounter - Estela Gary - 05/30/2024 11:20 AM EDT TC from pt requesting medication refill. Medications needing refill : insulin glargine (Lantus) 100 UNIT/ML injection To be sent to: [facility] #[id number] AT [facility] documented in this encounter Plan of Treatment Not on file documented as of this encounter Visit Diagnoses Not on filedocumented in this encounter Additional Health Concerns Assessment Noted Time PHQ-9 Depression Total Score: 2 01/20/20 23 8:54 AM EDT documented as of this encounter Care Teams Audit Practice Intern Relationship Specialty Start Date End Date Nikhil Gagnon MD [address] [place] [address] PCP - General Internal Medicine 12/27/19 ASSIGNED EMPLOYEE (NONE) Rubber Goods SupervisorPersonal Counselor 04/26/24 documented as of this encounter
== END 2024-10-08 15:21 | disposition home or self-care (01) ==
LOC: HO.HVS 14:49
PROVIDERS: PCP Internal Medicine; Visit Provider Surgery Vascular Surgery
DX: I73.9 Peripheral vascular disease, unspecified (principal)
CPT/HCPCS: 99214

== ENCOUNTER → 2024-10-08 14:49 | Outpatient (BNVA) | payer MEDICAID, SELFPAY | PROVIDERS: PCP Internal Medicine; Visit Provider Surgery Vascular Surgery | DX: I73.9 Peripheral vascular disease, unspecified (principal) | CPT/HCPCS: 99212 ==

== ENCOUNTER 2025-01-08 14:33 | Outpatient (REF) | payer MEDICAID, SELFPAY ==
--- NOTE | ~2025-01-08 | US_ITS ---
EXAMINATION: US NONINVASIVE ASSESSMENT OF THE LEFT LOWER EXTREMITY WITH ARTERIAL DUPLEX AND ANKLE BRACHIAL INDICES (ABIS) CLINICAL INFORMATION: Peripheral vascular disease, unspecified. Left lower extremity arterial ultrasound. Please evaluate left SFA stent. COMPARISON: 08/21/2024. TECHNIQUE: Duplex Doppler techniques with waveform analysis and measurement of velocities in the common femoral, profunda femoris, superficial femoral, popliteal and tibial arteries were performed. ABIs were not obtained due to a wound in the calf region. NONINVASIVE ASSESSMENT OF THE ARTERIES OF LEFT LOWER EXTREMITY. As per technologist note, examination performed in a wheelchair. Patient has a right BKA. FINDINGS: Atheromatous Plaque: Moderate atheromatous plaque identified throughout the arterial system. LEFT FEMORAL RUNOFF VELOCITIES: The left common femoral artery measures 234 cm/s and triphasic. The left profunda femoral artery is 207 cm/s and is triphasic. The left proximal superficial femoral artery measures 176 cm/s and biphasic. The left mid superficial femoral artery demonstrates a presence of a stent. Velocity within the proximal stent is 157 cm/s and is biphasic. Velocity within the mid stent is 91 cm/s, biphasic waveforms. Velocity within the distal stent measures 83 cm/s and is biphasic. The left distal right superficial femoral artery measures 108 cm/s and is biphasic. The left popliteal velocity measures 99 cm/s and is triphasic. The left posterior tibial artery velocity measures 81 cm/s and is biphasic. The left anterior tibial artery velocity measures 20 cm/s and is biphasic. The left dorsalis pedis artery velocity measures 62 cm/s and is biphasic. US/US arterial duplex LE LT IMPRESSION: 1. Stent within the left superficial femoral artery, which is patent, measuring velocities up to 157 cm/s in the mid aspect, with biphasic velocities throughout. 2. Overall improvement in the entire exam when compared to the pre-stent examination of 08/21/2024, where waveforms were entirely monophasic throughout, with moderately elevated inflow velocities, and severely elevated velocities in the proximal superficial femoral artery. Electronically signed by: Naveen Kim MD 01/10/2025 09:48 AM EDT
== END 2025-01-08 14:34 | disposition home or self-care (01) ==
LOC: HO.US 14:33
PROVIDERS: PCP Internal Medicine; Visit Provider Surgery Vascular Surgery
DX: I73.9 Peripheral vascular disease, unspecified (principal)
CPT/HCPCS: 93926

== ENCOUNTER → 2025-01-08 14:37 | Outpatient (BNV) | payer MEDICAID, SELFPAY | PROVIDERS: PCP Internal Medicine; Visit Provider Radiology Diagnostic Radiology | DX: I73.9 Peripheral vascular disease, unspecified (principal) | CPT/HCPCS: 93926 ==

== ENCOUNTER → 2025-06-29 11:10 | Outpatient (BNV) | payer MEDICAID, SELFPAY | PROVIDERS: Admitting Provider Internal Medicine; Emergency Provider Emergency Medicine Emergency Medical Services; PCP Internal Medicine; Visit Provider Radiology Diagnostic Radiology | DX: L03.115 Cellulitis of right lower limb (principal); R60.0 Localized edema; Z89.511 Acquired absence of right leg below knee; S62.617A Displaced fracture of proximal phalanx of left little finger, initial encounter for closed fracture; M85.872 Other specified disorders of bone density and structure, left ankle and foot | CPT/HCPCS: 73560; 73620 ==

== ENCOUNTER 2025-06-29 17:29 | Outpatient (BNV) | payer MEDICAID, SELFPAY | END 2025-07-02 09:45 | PROVIDERS: Admitting Provider Internal Medicine; Emergency Provider Emergency Medicine Emergency Medical Services; PCP Internal Medicine; Visit Provider Radiology Diagnostic Radiology | DX: L97.929 Non-pressure chronic ulcer of unspecified part of left lower leg with unspecified severity (principal); K76.0 Fatty (change of) liver, not elsewhere classified | CPT/HCPCS: 75635 ==

== ENCOUNTER 2025-06-29 17:29 | Outpatient (BNV) | payer MEDICAID, SELFPAY | END 2025-06-30 16:41 | PROVIDERS: Admitting Provider Internal Medicine; Emergency Provider Emergency Medicine Emergency Medical Services; PCP Internal Medicine; Visit Provider Internal Medicine Cardiovascular Disease | DX: Z51.81 Encounter for therapeutic drug level monitoring (principal) | CPT/HCPCS: 93010 ==

== ENCOUNTER 2025-06-29 17:29 | Outpatient (BNV) | payer MEDICAID, SELFPAY | END 2025-08-01 13:05 | PROVIDERS: Admitting Provider Internal Medicine; Emergency Provider Emergency Medicine Emergency Medical Services; PCP Internal Medicine; Visit Provider Radiology Diagnostic Radiology | DX: Z45.2 Encounter for adjustment and management of vascular access device (principal); R91.8 Other nonspecific abnormal finding of lung field | CPT/HCPCS: 71045 ==

== ENCOUNTER → 2025-06-29 17:29 | Outpatient (BNV) | payer MEDICAID, SELFPAY | PROVIDERS: Admitting Provider Internal Medicine; Emergency Provider Emergency Medicine Emergency Medical Services; PCP Internal Medicine; Visit Provider Internal Medicine | DX: M86.8X0 Other osteomyelitis, multiple sites (principal); E11.65 Type 2 diabetes mellitus with hyperglycemia | CPT/HCPCS: 99223; 99233; 99499 ==

== ENCOUNTER → 2025-06-29 17:29 | Outpatient (BNV) | payer MEDICAID, SELFPAY | PROVIDERS: Admitting Provider Internal Medicine; Emergency Provider Emergency Medicine Emergency Medical Services; PCP Internal Medicine; Visit Provider Surgery Vascular Surgery | DX: I73.9 Peripheral vascular disease, unspecified (principal) | CPT/HCPCS: 99222; 99499 ==

== ENCOUNTER → 2025-06-29 17:29 | Outpatient (BNV) | payer MEDICAID, SELFPAY | PROVIDERS: Admitting Provider Internal Medicine; Emergency Provider Emergency Medicine Emergency Medical Services; PCP Internal Medicine; Visit Provider Internal Medicine | DX: L03.90 Cellulitis, unspecified (principal) | CPT/HCPCS: 99222 ==

== ENCOUNTER → 2025-06-29 17:29 | Outpatient (BNV) | payer MEDICAID, SELFPAY | PROVIDERS: Admitting Provider Internal Medicine; Emergency Provider Emergency Medicine Emergency Medical Services; PCP Internal Medicine; Visit Provider Nurse Practitioner Psychiatric/Mental Health | DX: F11.90 Opioid use, unspecified, uncomplicated (principal) | CPT/HCPCS: 99222 ==